=== PATIENT | female | born 1990 | race African-American/Black ===

== ENCOUNTER 2016-09-27 11:38 | Emergency (ER) | payer BC, OTHER ==
[2016-09-27] MEDS ORDERED: SODIUM CHLORIDE 0.9% 500 ML IV STA (12:07)
--- NOTE | 2016-09-27 12:11 | ED ---
Abdominal Pain HPI - General Chief Complaint: Abdominal Pain Stated Complaint: abd pain Time Seen by Provider: 09/27/16 12:02 Source: patient, RN notes reviewed Mode of arrival: ambulatory Limitations: no limitations - History of Present Illness Initial Comments: 26-year-old female presents emergency Department chief complaint lower abdominal pain, pelvic pain. Patient states that it started in the last day or 2. She is concerned that she's had a history of kidney transplant history of peritonitis. Patient states she had a kidney transplant at age 19 by [facility]. 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 Patient states this pain is worse sometimes with movement and there is a burning sharp pain in her pelvic region. She denies any vaginal bleeding or vaginal discharge. Patient states that she has not had a fever or chills. Patient does admit some nausea vomiting. Patient has a history of anemia and which she takes iron supplement and epo shots. Patient denies any sick contacts. Patient states she sees Dr. Kofi reyes for tie presser. Primary care physician Dr. Frias. - Related Data Home Medications Medication Instructions Recorded Confirmed Ferrous Sulfate [Iron (65 MG 325 mg PO TID 05/27/15 09/27/16 Elemental)] Tacrolimus [Prograf] 5 mg PO BID 05/27/15 09/27/16 predniSONE 5 mg PO DAILY 05/27/15 09/27/16 Ergocalciferol [Vitamin D2 50,000 unit PO SUFR 05/31/15 09/27/16 (DRISDOL)] Mycophenolate Mofetil [Cellcept] 1,000 mg PO BID 05/31/15 09/27/16 Sodium Bicarbonate Tab 1,300 mg PO BID 05/31/15 09/27/16 Tacrolimus [Prograf] 3 mg PO BID 05/31/15 09/27/16 Calcitriol 0.25 mcg PO DAILY 12/09/15 09/27/16 Albuterol Sulfate [Proair Hfa] 2 puff INHALATION RT-Q6H PRN 01/22/16 09/27/16 Carvedilol 25 mg PO BID 07/01/16 07/01/16 Furosemide [Lasix] 80 mg PO BID 07/01/16 09/27/16 Metolazone [Zaroxolyn] 5 mg PO DAILY 07/01/16 09/27/16 amLODIPine [Norvasc] 10 mg PO DAILY 07/01/16 07/01/16 cloNIDine HCL [Catapres] 0.3 mg PO TID 07/01/16 07/01/16 Allergies Allergy/AdvReac Type Severity Reaction Status Date / Time hydralazine AdvReac Rapid Verified 09/27/16 12:48 Heart Rate Review of Systems ROS Statement: Those systems with pertinent positive or pertinent negative responses have been documented in the HPI. ROS Other: All systems not noted in ROS Statement are negative. Past Medical History Past Medical History: Asthma, Hypertension, Renal Disease Additional Past Medical History / Comment(s): abdominal pain, hx kidney transplant 2009, acute on chronic renal failure. Other HX: polycystic renal failure with kidney transplant, CKD, vitimen D deficiency, anemia, ovarian cyst , chronic back pain. History of Any Multi-Drug Resistant Organisms: None Reported Past Surgical History: Hernia Repair Additional Past Surgical History / Comment(s): 11/15/09 Kidney transplant R pelvis, dialysis catheter in and out, supra pubic hernia repair, transvaginal mesh, wisdom teeth extraction with anesthesia. Past Anesthesia/Blood Transfusion Reactions: No Reported Reaction Past Psychological History: Anxiety, Depression Additional Psychological History / Comment(s): Pt resides with family. She is independent. She drives. She states she has anxiety and depression but no suicidal thoughts/ idealations or plans. She had one suicide attempt with overdose in 2012. Smoking Status: Current every day smoker Past Alcohol Use History: None Reported Additional Past Alcohol Use History / Comment(s): PT STILL OCCASIONALY SMOKES Past Drug Use History: None Reported - Past Family History Father Family Medical History: No Reported History Additional Family Medical History / Comment(s): Father is healthy and is 59 yrs old. Mother Family Medical History: No Reported History Additional Family Medical History / Comment(s): Mother is healthy and is 57 yrs old. General Exam Limitations: no limitations General appearance: alert, in no apparent distress Head exam: Present: atraumatic, normocephalic, normal inspection Respiratory exam: Present: normal lung sounds bilaterally. Absent: respiratory distress, wheezes, rales, rhonchi, stridor Cardiovascular Exam: Present: regular rate, normal rhythm, normal heart sounds. Absent: systolic murmur, diastolic murmur, rubs, gallop, clicks GI/Abdominal exam: Present: soft, tenderness (Moderate suprapubic, lower abdominal tenderness), normal bowel sounds, other (Large right-sided old surgical scar noted, swelling of the lower abdomen region which patient states this is normal for and has mesh in place). Absent: distended, guarding, rebound , rigid Back exam: Absent: CVA tenderness (R), CVA tenderness (L) Neurological exam: Present: alert, oriented X3 Skin exam: Present: warm, dry, intact, normal color. Absent: rash Course Vital Signs 09/27/16 09/27/16 11:41 14:19 Temperature 98.0 F Pulse Rate 90 66 Respiratory 17 16 Rate Blood Pressure 186/112 131/83 O2 Sat by Pulse 100 98 Oximetry - Reevaluation(s) Reevaluation #1: 09/27/16 14:40 Patient was updated on results time. Patient is sleeping and resting comfortably. Patient's states that she has not been taking her bicarb for the last 3-4 days because she just didn't want to take it. Patient's was informed that bicarb was low. Patient will be submitted here advised to restart at home and she has an appointment on Wednesday. Medical Decision Making - Medical Decision Making 26-year-old female presented emergency department for abdominal pain. Patient hemoglobin is 7.1 which is normal for her. Patient has appointment with nephrology on Wednesday. Patient has not been taking her bicarb and which she' ll be given some he had this time. She is advised she needs to take this daily because it may cause issues . Patient will be discharged with return parameters. - Lab Data Result diagrams: 09/27/16 12:30 09/27/16 12:30 Lab Results 09/27/16 09/27/16 09/27/16 Range/Units 12:30 12:30 12:30 WBC 6.1 (3.8-10.6) k/uL RBC 2.77 L (3.80-5.40) m/uL Hgb 7.1 L (11.4-16.0) gm/dL Hct 25.0 L (34.0-46.0) % MCV 90.2 (80.0-100.0) fL MCH 25.5 (25.0-35.0) pg MCHC 28.3 L (31.0-37.0) g/dL RDW 17.1 H (11.5-15.5) % Plt Count 233 (150-450) k/uL Neutrophils % 70 % Lymphocytes % 16 % Monocytes % 5 % Eosinophils % 7 % Basophils % 1 % Neutrophils # 4.3 (1.3-7.7) k/uL Lymphocytes # 1.0 (1.0-4.8) k/uL Monocytes # 0.3 (0-1.0) k/uL Eosinophils # 0.4 (0-0.7) k/uL Basophils # 0.0 (0-0.2) k/uL Hypochromasia Marked Anisocytosis Slight PT (9.0-12.0) sec INR (<1.1) APTT (22.0-30.0) sec Sodium 142 (137-145) mmol/L Potassium 4.8 (3.5-5.1) mmol/L Chloride 119 H (98-107) mmol/L Carbon Dioxide 14 L (22-30) mmol/L Anion Gap 9 mmol/L BUN 40 H (7-17) mg/dL Creatinine 3.90 H (0.52-1.04) mg/dL Est GFR (MDRD) Af Amer 17 (>60 ml/min/1.73 sqM) Est GFR (MDRD) Non-Af 14 (>60 ml/min/1.73 sqM) Glucose 91 (74-99) mg/dL Plasma Lactic Acid Johan (0.7-2.0) mmol/L Calcium 7.3 L (8.4-10.2) mg/dL Total Bilirubin 0.3 (0.2-1.3) mg/dL AST 12 L (14-36) U/L ALT 21 (9-52) U/L Alkaline Phosphatase 78 (38-126) U/L Total Protein 6.2 L (6.3-8.2) g/dL Albumin 3.4 L (3.5-5.0) g/dL Amylase 117 H (30-110) U/L Lipase 97 (23-300) U/L Urine Color Urine Appearance (Clear) Urine pH (5.0-8.0) Ur Specific [place] (1.001-1.035) Urine Protein (Negative) Urine Glucose (UA) (Negative) Urine Ketones (Negative) Urine Blood (Negative) Urine Nitrate (Negative) Urine Bilirubin (Negative) Urine Urobilinogen (<2.0) mg/dL Ur Leukocyte Esterase (Negative) Urine RBC (0-5) /hpf Urine WBC (0-5) /hpf Ur Squamous Epith Cells (0-4) /hpf Urine HCG, Qual Not Detected (Not Detectd) 09/27/16 09/27/16 09/27/16 Range/Units 12:30 12:30 12:30 WBC (3.8-10.6) k/uL RBC (3.80-5.40) m/uL Hgb (11.4-16.0) gm/dL Hct (34.0-46.0) % MCV (80.0-100.0) fL MCH (25.0-35.0) pg MCHC (31.0-37.0) g/dL RDW (11.5-15.5) % Plt Count (150-450) k/uL Neutrophils % % Lymphocytes % % Monocytes % % Eosinophils % % Basophils % % Neutrophils # (1.3-7.7) k/uL Lymphocytes # (1.0-4.8) k/uL Monocytes # (0-1.0) k/uL Eosinophils # (0-0.7) k/uL Basophils # (0-0.2) k/uL Hypochromasia Anisocytosis PT 10.7 (9.0-12.0) sec INR 1.1 (<1.1) APTT 27.5 (22.0-30.0) sec Sodium (137-145) mmol/L Potassium (3.5-5.1) mmol/L Chloride (98-107) mmol/L Carbon Dioxide (22-30) mmol/L Anion Gap mmol/L BUN (7-17) mg/dL Creatinine (0.52-1.04) mg/dL Est GFR (MDRD) Af Amer (>60 ml/min/1.73 sqM) Est GFR (MDRD) Non-Af (>60 ml/min/1.73 sqM) Glucose (74-99) mg/dL Plasma Lactic Acid Johan <0.5 L (0.7-2.0) mmol/L Calcium (8.4-10.2) mg/dL Total Bilirubin (0.2-1.3) mg/dL AST (14-36) U/L ALT (9-52) U/L Alkaline Phosphatase (38-126) U/L Total Protein (6.3-8.2) g/dL Albumin (3.5-5.0) g/dL Amylase (30-110) U/L Lipase (23-300) U/L Urine Color Light Yellow Urine Appearance Clear (Clear) Urine pH 6.5 (5.0-8.0) Ur Specific [place] 1.007 (1.001-1.035) Urine Protein 2+ H (Negative) Urine Glucose (UA) Trace H (Negative) Urine Ketones Negative (Negative) Urine Blood Small H (Negative) Urine Nitrate Negative (Negative) Urine Bilirubin Negative (Negative) Urine Urobilinogen <2.0 (<2.0) mg/dL Ur Leukocyte Esterase Negative (Negative) Urine RBC 2 (0-5) /hpf Urine WBC 1 (0-5) /hpf Ur Squamous Epith Cells 1 (0-4) /hpf Urine HCG, Qual (Not Detectd) Disposition Clinical Impression: Anemia, Abdominal pain, Noncompliance with medication regimen, History of kidney transplant Disposition: HOME SELF-CARE Condition: Stable Instructions: Abdominal Pain (ED) Additional Instructions: Please take your medications as directed and see your tie presser at your scheduled appointment.Please return to the Emergency Department if symptoms worsen or any other concerns. Time of Disposition: 14:42
[2016-09-27 12:52] LABS: Anisocytosis Slight; Basophils % (A) 1 %; CH 25.5; CHCM 28.5; Eosinophils # (A) 0.4 k/uL (0-0.7); Eosinophils % (A) 7 %; HDW 3.22; HGB 7.1 gm/dL (11.4-16.0); Hypochromasia Marked; Luc % (Auto) 2; Lymphocytes % (A) 16 %; MCH 25.5 pg (25.0-35.0); MCHC 28.3 g/dL (31.0-37.0); MCV 90.2 fL (80.0-100.0); Mean Platelet Volume 8.1; Monocytes # (A) 0.3 k/uL (0-1.0); Monocytes % (A) 5 %; Neutrophils # (A) 4.3 k/uL (1.3-7.7); Neutrophils % (A) 70 %; RBC 2.77 m/uL (3.80-5.40); RDW 17.1 % (11.5-15.5); WBC 6.1 k/uL (3.8-10.6); WBC (Perox) 6.32
[2016-09-27 12:53] LABS: Appearance,Urine Clear (Clear); Bilirubin,Urine Negative (Negative); Glucose,Urine (UA) Trace (Negative); Ketones,Urine Negative (Negative); Leukocyte Esterase,Urine Negative (Negative); Nitrite,Urine Negative (Negative); PH, Urine 6.5 (5.0-8.0); Particle Count 668; Protein,Urine 2+ (Negative); RBC,Urine 2 /hpf (0-5); Specific Gravity,Urine 1.007 (1.001-1.035); Squamous Epithelial Cell,Urine 1 /hpf (0-4); UA Billing (MACRO vs. MICRO) MICRO; Urobilinogen,Urine <2.0 mg/dL (<2.0); WBC,Urine 1 /hpf (0-5)
[2016-09-27 12:58] LABS: INR 1.1 (<1.1); Partial Thromboplastin Time 27.5 sec (22.0-30.0); Prothrombin Time 10.7 sec (9.0-12.0)
[2016-09-27 12:59] LABS: Calcium 7.3 mg/dL (8.4-10.2); Potassium 4.8 mmol/L (3.5-5.1); Total Bilirubin 0.3 mg/dL (0.2-1.3); Total Protein 6.2 g/dL (6.3-8.2)
--- NOTE | 2016-09-27 13:57 | XR ---
INDICATION: Abdominal pain COMPARISON: AXR 02/04/16 FINDINGS: Single frontal view of the abdomen demonstrates a normal bowel gas pattern. No evidence of organomegaly, abnormal calcifications or obvious soft tissue masses. The osseous structures are intact. Surgical clips in the pelvis. IMPRESSION: Normal KUB.
--- NOTE | 2016-09-27 14:19 | CT ---
INDICATION: Pain TECHNIQUE: Multiple, contiguous axial cuts of the abdomen and pelvis are obtained from the lung bases to the ischial tuberosities. Sagittal and coronal reformatted images are available. COMPARISON: CT dated 02/05/16 FINDINGS: The lung bases are clear. Cardiomegaly. The liver and spleen are normal in size and free of mass lesions. The gallbladder, bile ducts and pancreas are normal. The adrenal gland are unremarkable. The left kidney is missing. There is atrophy of the right kidney. Again noted is a large transplanted kidney within the right anterior pelvis the overall appearance is grossly unchanged. Small amount of free ascites. The appendix is unremarkable, as is the rest of the GI tract. Aorta is normal caliber. No adenopathy or extraluminal air. The osseous structures are normal IMPRESSION: 1. The left kidney is missing. There is atrophy of the right kidney. Again noted is a large transplanted kidney within the right anterior pelvis the overall appearance is grossly unchanged. 2. Small amount of free ascites. 3. Cardiomegaly. CTDI: 4.7 mGy DLP: 208.6 mGycm
[2016-09-27] MEDS ORDERED: SODIUM BICARBONATE TAB 650 MG TAB PO STA (14:40)
[2016-09-27 14:55] VITALS: BP 142/96; PULSE 64; RESP 14; TEMP 97.8
== END 2016-09-27 15:08 | disposition home or self-care (01) ==
LOC: EC 11:38
DX: R10.9 Unspecified abdominal pain (principal); D64.9 Anemia, unspecified; Z91.14 Patient's other noncompliance with medication regimen; Z94.0 Kidney transplant status; Q60.0 Renal agenesis, unilateral; I12.9 Hypertensive chronic kidney disease with stage 1 through stage 4 chronic kidney disease, or unspecified chronic kidney disease; N18.9 Chronic kidney disease, unspecified; F17.200 Nicotine dependence, unspecified, uncomplicated; Z79.52 Long term (current) use of systemic steroids; Z79.899 Other long term (current) drug therapy; Z88.8 Allergy status to other drugs, medicaments and biological substances
CPT/HCPCS: 36415; 74000; 74176; 80053; 81001; 81025; 82150; 83605; 83690; 85025; 85610; 85730; 87040; 99284

== ENCOUNTER 2016-11-26 18:09 | Inpatient (IN) | payer BC, OTHER ==
[2016-11-26] MEDS ORDERED: SODIUM CHLORIDE 0.9% 1,000 ML IV STA (18:19)
[2016-11-26 18:46] LABS: Anisocytosis Slight; Basophils # (A) 0.1 k/uL (0-0.2); Basophils % (A) 1 %; CH 25.2; CHCM 26.8; Eosinophils # (A) 0.1 k/uL (0-0.7); Eosinophils % (A) 2 %; HCT 20.4 % (34.0-46.0); HDW 2.57; Hypochromasia Marked; Luc # (Auto) 0.03; Luc % (Auto) 1; Lymphocytes # (A) 0.6 k/uL (1.0-4.8); Lymphocytes % (A) 10 %; MCH 25.8 pg (25.0-35.0); MCV 94.4 fL (80.0-100.0); Mean Platelet Volume 7.5; Monocytes # (A) 0.2 k/uL (0-1.0); Monocytes % (A) 3 %; Neutrophils # (A) 4.9 k/uL (1.3-7.7); Neutrophils % (A) 84 %; RBC 2.16 m/uL (3.80-5.40); RDW 16.2 % (11.5-15.5); WBC 5.9 k/uL (3.8-10.6); WBC (Perox) 5.58
--- NOTE | 2016-11-26 18:47 | ED ---
General Adult HPI - General Source: patient, RN notes reviewed Mode of arrival: ambulatory Limitations: no limitations <Wally Flores - Last Filed: 11/26/16 19:36> <Omar Coats - Last Filed: 11/26/16 20:34> - General Chief complaint: Recheck/Abnormal Lab/Rx Stated complaint: anemia sent by PCP Time Seen by Provider: 11/26/16 18:21 - History of Present Illness Initial comments: Patient is a 26-year-old female with significant past medical history for kidney transplant, with chief complaint of low hemoglobin today. Patient does admit to feeling dizzy and tired over the last 2-3 weeks. Patient does admit that she had blood drawn this morning and was notified that her hemoglobin was 5.4. Patient denies any other complaints. Patient denies any recent fever, chills, shortness of breath, chest pain, back pain, abdominal pain, nausea or vomiting, numbness or tingling, dysuria or hematuria, constipation or diarrhea, headaches or visual changes, or any other complaints. (Wally Flores) - Related Data Home Medications Medication Instructions Recorded Confirmed Ferrous Sulfate [Iron (65 MG 325 mg PO TID 05/27/15 11/26/16 Elemental)] Tacrolimus [Prograf] 5 mg PO BID 05/27/15 11/26/16 predniSONE 5 mg PO DAILY 05/27/15 11/26/16 Ergocalciferol [Vitamin D2 50,000 unit PO SUFR 05/31/15 11/26/16 (DRISDOL)] Mycophenolate Mofetil [Cellcept] 1,000 mg PO BID 05/31/15 11/26/16 Sodium Bicarbonate Tab 1,300 mg PO BID 05/31/15 11/26/16 Tacrolimus [Prograf] 3 mg PO BID 05/31/15 11/26/16 Calcitriol 0.25 mcg PO DAILY 12/09/15 11/26/16 Albuterol Sulfate [Proair Hfa] 2 puff INHALATION RT-Q6H PRN 01/22/16 11/26/16 Carvedilol 25 mg PO BID 07/01/16 11/26/16 Furosemide [Lasix] 80 mg PO BID 07/01/16 11/26/16 Metolazone [Zaroxolyn] 5 mg PO DAILY 07/01/16 11/26/16 amLODIPine [Norvasc] 10 mg PO DAILY 07/01/16 11/26/16 cloNIDine HCL [Catapres] 0.3 mg PO TID 07/01/16 11/26/16 Ondansetron [Zofran] 4 mg PO Q8H PRN 11/26/16 11/26/16 Allergies Allergy/AdvReac Type Severity Reaction Status Date / Time hydralazine AdvReac Rapid Verified 11/26/16 18:54 Heart Rate Review of Systems ROS Other: All systems not noted in ROS Statement are negative. <Wally Flores - Last Filed: 11/26/16 19:36> ROS Other: All systems not noted in ROS Statement are negative. <Omar Coats - Last Filed: 11/26/16 20:34> ROS Statement: Those systems with pertinent positive or pertinent negative responses have been documented in the HPI. Past Medical History Past Medical History: Asthma, Hypertension, Renal Disease Additional Past Medical History / Comment(s): abdominal pain, hx kidney transplant 2009, acute on chronic renal failure. Other HX: polycystic renal failure with kidney transplant, CKD, vitimen D deficiency, anemia of chronic disease, ovarian cyst, chronic back pain. History of Any Multi-Drug Resistant Organisms: None Reported Past Surgical History: Hernia Repair Additional Past Surgical History / Comment(s): 11/15/09 Kidney transplant R pelvis, dialysis catheter in and out, supra pubic hernia repair, transvaginal mesh, wisdom teeth extraction with anesthesia. Past Anesthesia/Blood Transfusion Reactions: No Reported Reaction Past Psychological History: Anxiety, Depression Additional Psychological History / Comment(s): Pt resides with family. She is independent. She drives. She states she has anxiety and depression but no suicidal thoughts/ idealations or plans. She had one suicide attempt with overdose in 2012. Smoking Status: Current every day smoker Past Alcohol Use History: None Reported Additional Past Alcohol Use History / Comment(s): PT STILL OCCASIONALY SMOKES Past Drug Use History: None Reported - Past Family History Father Family Medical History: No Reported History Additional Family Medical History / Comment(s): Father is healthy and is 59 yrs old. Mother Family Medical History: No Reported History Additional Family Medical History / Comment(s): Mother is healthy and is 57 yrs old. <Wally Flores - Last Filed: 11/26/16 19:36> General Exam Limitations: no limitations <Wally Flores - Last Filed: 11/26/16 19:36> <Omar Coats - Last Filed: 11/26/16 20:34> - General Exam Comments Initial Comments: General: The patient is awake and alert, in no distress, and does not appear acutely ill. Eye: Pupils are equal, round and reactive to light, extra-ocular movements are intact. No nystagmus. There is normal conjunctiva bilaterally. No signs of icterus. Ears, nose, mouth and throat: There are moist mucous membranes and no oral lesions. Neck: The neck is supple, there is no tenderness or JVD. Cardiovascular: There is a regular rate and rhythm. No murmur, rub or gallop is appreciated. Respiratory: Lungs are clear to auscultation, respirations are non-labored, breath sounds are equal. No wheezes, stridor, rales, or rhonchi. Gastrointestinal: Soft, non-distended, non-tender abdomen without masses or organomegaly noted. There is no rebound or guarding present. No CVA tenderness. Bowel sounds are unremarkable. Musculoskeletal: Normal ROM, no tenderness. Strength 5/5. Sensation intact. Pulses equal bilaterally 2+. Neurological: A&O x 3. CN II-XII intact, There are no obvious motor or sensory deficits. Coordination appears grossly intact. Speech is normal. Skin: Skin is warm and dry and no rashes or lesions are noted. Psychiatric: Cooperative, appropriate mood & affect, normal judgment. (Wally Flores) Medical Decision Making - Lab Data Result diagrams: 11/26/16 18:34 11/26/16 19:10 <Wally Flores - Last Filed: 11/26/16 19:36> - Lab Data Result diagrams: 11/26/16 18:34 11/26/16 19:10 <Omar Coats - Last Filed: 11/26/16 20:34> - Medical Decision Making Labs reviewed does show a hemoglobin 5.6. Patient's potassium 5.9 will be repeated. Patient to be given 1 unit and recheck. She will be admitted for serial H&H Case discussed in detail with attending physician Dr. Coats. (Wally Flores) I saw this patient in conjunction with the physician assistant vice president. I performed independent history and physical exam. Agree with case management. (Omar Coats) - Lab Data Lab Results 11/26/16 11/26/16 11/26/16 Range/Units 18:34 18:34 18:34 WBC 5.9 (3.8-10.6) k/uL RBC 2.16 L (3.80-5.40) m/uL Hgb 5.6 L* D (11.4-16.0) gm/dL Hct 20.4 L (34.0-46.0) % MCV 94.4 (80.0-100.0) fL MCH 25.8 (25.0-35.0) pg MCHC 27.3 L (31.0-37.0) g/dL RDW 16.2 H (11.5-15.5) % Plt Count 291 (150-450) k/uL Neutrophils % 84 % Lymphocytes % 10 % Monocytes % 3 % Eosinophils % 2 % Basophils % 1 % Neutrophils # 4.9 (1.3-7.7) k/uL Lymphocytes # 0.6 L (1.0-4.8) k/uL Monocytes # 0.2 (0-1.0) k/uL Eosinophils # 0.1 (0-0.7) k/uL Basophils # 0.1 (0-0.2) k/uL Hypochromasia Marked Anisocytosis Slight PT 10.8 (9.0-12.0) sec INR 1.1 (<1.1) APTT 28.6 (22.0-30.0) sec Sodium 137 (137-145) mmol/L Potassium 5.9 H (3.5-5.1) mmol/L Chloride 115 H (98-107) mmol/L Carbon Dioxide 14 L (22-30) mmol/L Anion Gap 8 mmol/L BUN 42 H (7-17) mg/dL Creatinine 3.84 H (0.52-1.04) mg/dL Est GFR (MDRD) Af Amer 17 (>60 ml/min/1.73 sqM) Est GFR (MDRD) Non-Af 14 (>60 ml/min/1.73 sqM) Glucose 134 H (74-99) mg/dL Calcium 6.8 L (8.4-10.2) mg/dL Total Bilirubin 0.3 (0.2-1.3) mg/dL AST 11 L (14-36) U/L ALT 24 (9-52) U/L Alkaline Phosphatase 62 (38-126) U/L Total Protein 6.3 (6.3-8.2) g/dL Albumin 3.3 L (3.5-5.0) g/dL Urine Color Urine Appearance (Clear) Urine pH (5.0-8.0) Ur Specific [place] (1.001-1.035) Urine Protein (Negative) Urine Glucose (UA) (Negative) Urine Ketones (Negative) Urine Blood (Negative) Urine Nitrite (Negative) Urine Bilirubin (Negative) Urine Urobilinogen (<2.0) mg/dL Ur Leukocyte Esterase (Negative) Urine RBC (0-5) /hpf Urine WBC (0-5) /hpf Ur Squamous Epith Cells (0-4) /hpf Amorphous Sediment (None) /hpf Hyaline Casts (0-2) /lpf Urine Mucus (None) /hpf Urine HCG, Qual (Not Detectd) 11/26/16 11/26/16 11/26/16 Range/Units 18:40 18:40 19:10 WBC (3.8-10.6) k/uL RBC (3.80-5.40) m/uL Hgb (11.4-16.0) gm/dL Hct (34.0-46.0) % MCV (80.0-100.0) fL MCH (25.0-35.0) pg MCHC (31.0-37.0) g/dL RDW (11.5-15.5) % Plt Count (150-450) k/uL Neutrophils % % Lymphocytes % % Monocytes % % Eosinophils % % Basophils % % Neutrophils # (1.3-7.7) k/uL Lymphocytes # (1.0-4.8) k/uL Monocytes # (0-1.0) k/uL Eosinophils # (0-0.7) k/uL Basophils # (0-0.2) k/uL Hypochromasia Anisocytosis PT (9.0-12.0) sec INR (<1.1) APTT (22.0-30.0) sec Sodium (137-145) mmol/L Potassium 5.8 H (3.5-5.1) mmol/L Chloride (98-107) mmol/L Carbon Dioxide (22-30) mmol/L Anion Gap mmol/L BUN (7-17) mg/dL Creatinine (0.52-1.04) mg/dL Est GFR (MDRD) Af Amer (>60 ml/min/1.73 sqM) Est GFR (MDRD) Non-Af (>60 ml/min/1.73 sqM) Glucose (74-99) mg/dL Calcium (8.4-10.2) mg/dL Total Bilirubin (0.2-1.3) mg/dL AST (14-36) U/L ALT (9-52) U/L Alkaline Phosphatase (38-126) U/L Total Protein (6.3-8.2) g/dL Albumin (3.5-5.0) g/dL Urine Color Light Yellow Urine Appearance Clear (Clear) Urine pH 6.0 (5.0-8.0) Ur Specific [place] 1.006 (1.001-1.035) Urine Protein 2+ H (Negative) Urine Glucose (UA) 1+ H (Negative) Urine Ketones Negative (Negative) Urine Blood Moderate H (Negative) Urine Nitrite Negative (Negative) Urine Bilirubin Negative (Negative) Urine Urobilinogen <2.0 (<2.0) mg/dL Ur Leukocyte Esterase Negative (Negative) Urine RBC 50 H (0-5) /hpf Urine WBC 7 H (0-5) /hpf Ur Squamous Epith Cells 2 (0-4) /hpf Amorphous Sediment Occasional H (None) /hpf Hyaline Casts 6 H (0-2) /lpf Urine Mucus Rare H (None) /hpf Urine HCG, Qual Not Detected (Not Detectd) Disposition Time of Disposition: 19:30 <Wally Flores - Last Filed: 11/26/16 19:36> <Omar Coats - Last Filed: 11/26/16 20:34> Clinical Impression: History of kidney transplant, Anemia, Hypertension Disposition: ADMITTED IP TO THIS [facility] Condition: Stable Referrals: Dereck Frias MD [Primary Care Provider] - 1-2 days
[2016-11-26 18:51] LABS: Calcium 6.8 mg/dL (8.4-10.2); Potassium 5.9 mmol/L (3.5-5.1); Total Bilirubin 0.3 mg/dL (0.2-1.3); Total Protein 6.3 g/dL (6.3-8.2)
[2016-11-26 19:00] LABS: Amorphous Sediment,Urine Occasional /hpf; Appearance,Urine Clear (Clear); Bilirubin,Urine Negative (Negative); Glucose,Urine (UA) 1+ (Negative); Ketones,Urine Negative (Negative); Leukocyte Esterase,Urine Negative (Negative); Mucus,Urine Rare /hpf; Nitrite,Urine Negative (Negative); Particle Count 2388; Protein,Urine 2+ (Negative); RBC,Urine 50 /hpf (0-5); Specific Gravity,Urine 1.006 (1.001-1.035); Squamous Epithelial Cell,Urine 2 /hpf (0-4); UA Billing (MACRO vs. MICRO) MICRO; Urobilinogen,Urine <2.0 mg/dL (<2.0); WBC,Urine 7 /hpf (0-5)
[2016-11-26 19:02] LABS: INR 1.1 (<1.1); Partial Thromboplastin Time 28.6 sec (22.0-30.0); Prothrombin Time 10.8 sec (9.0-12.0)
[2016-11-26 19:03] LABS: MCHC 27.3 g/dL (31.0-37.0)
[2016-11-26 19:05] LABS: HGB 5.6 gm/dL (11.4-16.0)
[2016-11-26] MEDS ORDERED: SODIUM CHLORIDE 0.9% 1,000 ML IV ONE (19:33)
[2016-11-26] MEDS ORDERED: ONDANSETRON 4 MG/2 ML VIAL IVP PRN (19:33)
[2016-11-26] MEDS ORDERED: NALOXONE 0.4 MG/ML 1 ML VIAL IV PRN (19:33)
[2016-11-26] MEDS ORDERED: ACETAMINOPHEN TAB 325 MG TAB PO PRN (19:33)
[2016-11-26] MEDS ORDERED: ALBUTEROL NEBULIZED 2.5 MG/3 ML INHALATION PRN (19:46)
[2016-11-26 21:08] VITALS: BMI 22.4
[2016-11-26] MEDS: FUROSEMIDE 80 MG TAB PO SCH (22:58)
[2016-11-26] MEDS: TACROLIMUS 1 MG CAP PO SCH (22:58)
[2016-11-26] MEDS: CARVEDILOL 12.5 MG TAB PO SCH (22:58)
[2016-11-26] MEDS: SODIUM BICARBONATE TAB 650 MG TAB PO SCH (22:59)
[2016-11-26] MEDS: MYCOPHENOLATE MOFETIL 500 MG TAB PO SCH (22:59)
[2016-11-27] MEDS: FERROUS SULFATE 325 MG TAB PO SCH ×2 (01:00→07:51)
[2016-11-27] MEDS: cloNIDine HCL 0.1 MG TAB PO SCH ×2 (01:02→07:50)
[2016-11-27] MEDS: TACROLIMUS 1 MG CAP PO SCH ×3 (01:02→07:50)
[2016-11-27 01:10] VITALS: RESP 18
[2016-11-27] MEDS: ALPRAZolam 0.25 MG TAB PO PRN ×2 (01:13→08:07)
[2016-11-27 06:53] LABS: Anisocytosis Slight; Basophils % (A) 1 %; CH 26.1; CHCM 27.8; Eosinophils # (A) 0.3 k/uL (0-0.7); Eosinophils % (A) 3 %; HCT 22.7 % (34.0-46.0); HDW 3.63; Hypochromasia Marked; Luc # (Auto) 0.09; Luc % (Auto) 1; Lymphocytes # (A) 1.5 k/uL (1.0-4.8); Lymphocytes % (A) 19 %; MCH 27.1 pg (25.0-35.0); MCHC 28.6 g/dL (31.0-37.0); MCV 94.8 fL (80.0-100.0); Mean Platelet Volume 7.3; Monocytes # (A) 0.2 k/uL (0-1.0); Monocytes % (A) 2 %; Neutrophils # (A) 5.8 k/uL (1.3-7.7); Neutrophils % (A) 74 %; Poikilocytosis Slight; RBC 2.39 m/uL (3.80-5.40); RDW 16.1 % (11.5-15.5); WBC 7.9 k/uL (3.8-10.6); WBC (Perox) 7.85
[2016-11-27 06:55] LABS: HGB 6.5 gm/dL (11.4-16.0)
[2016-11-27 07:06] LABS: Calcium 7.1 mg/dL (8.4-10.2); Potassium 5.2 mmol/L (3.5-5.1); Total Bilirubin 0.5 mg/dL (0.2-1.3); Total Protein 5.7 g/dL (6.3-8.2)
[2016-11-27] MEDS: CARVEDILOL 12.5 MG TAB PO SCH (07:50)
[2016-11-27] MEDS: SODIUM BICARBONATE TAB 650 MG TAB PO SCH (07:51)
[2016-11-27] MEDS: FUROSEMIDE 80 MG TAB PO SCH (07:51)
[2016-11-27] MEDS: MYCOPHENOLATE MOFETIL 500 MG TAB PO SCH (07:52)
--- NOTE | 2016-11-27 08:21 | P.NPCON ---
History of Present Illness - Reason for Consult chronic renal failure - History of Present Illness Sedation: Chronic kidney disease History of present illness: Patient is a 26-year-old -[place] female seen in renal consultation for chronic kidney disease. Patient has chronic kidney disease stage IV with baseline creatinine near 4. Patient has a donor renal allograft from 2009. Etiology for kidney diseases congenital anomaly. She is maintained on Prograf CellCept and prednisone. However she is long-standing history of being noncompliant with her medications. She was seen in the office yesterday and had blood work done as well. Hemoglobin came back at 5.6 and she was advised to come to the hospital. She has received 1 unit of packed red blood cell transfusion and her hemoglobin is up to 6.5 today she scheduled to receive 2 more units today. Patient states she has not been taking her meds as advised. She also ran out of Procrit about a month ago. She's been feeling weak and tired. She also admits to having spasms in her neck. Denies any vomiting or diarrhea. Appetite is good. Admits to good urine output. No hematuria or dysuria. Her bicarb level is down 11 today and she has not been taking sodium bicarbonate as an outpatient. Potassium level was 5.8 and is down to 5.2 today. She is eager to go home. Vital signs are stable. General: The patient appeared well nourished and normally developed. HEENT: Head exam is unremarkable. Neck is without jugular venous distension. LUNGS: Lungs are clear to auscultation and percussion. Breath sounds decreased. HEART: Rate and Rhythm are regular. First and second heart sounds normal. No murmurs, rubs or gallops. ABDOMEN: Abdominal exam reveals normal bowel sounds. Non-tender and non- distended. No evidence of peritonitis. EXTREMITITES: No clubbing, cyanosis, or edema. Past Medical History Past Medical History: Asthma, Hypertension, Renal Disease Additional Past Medical History / Comment(s): abdominal pain, hx kidney transplant 2009, acute on chronic renal failure. Other HX: polycystic renal failure with kidney transplant, CKD, vitimen D deficiency, anemia of chronic disease, ovarian cyst, chronic back pain. History of Any Multi-Drug Resistant Organisms: None Reported Past Surgical History: Hernia Repair Additional Past Surgical History / Comment(s): 11/15/09 Kidney transplant R pelvis, dialysis catheter in and out, supra pubic hernia repair, transvaginal mesh, wisdom teeth extraction with anesthesia. Past Anesthesia/Blood Transfusion Reactions: No Reported Reaction Past Psychological History: Anxiety, Depression Additional Psychological History / Comment(s): Pt resides with family. She is independent. She drives. She states she has anxiety and depression but no suicidal thoughts/ idealations or plans. She had one suicide attempt with overdose in 2012. Smoking Status: Current some day smoker Past Alcohol Use History: None Reported Additional Past Alcohol Use History / Comment(s): PT STILL OCCASIONALY SMOKES Past Drug Use History: None Reported - Past Family History Father Family Medical History: No Reported History Additional Family Medical History / Comment(s): Father is healthy and is 59 yrs old. Mother Family Medical History: No Reported History Additional Family Medical History / Comment(s): Mother is healthy and is 57 yrs old. Medications and Allergies Home Medications Medication Instructions Recorded Confirmed Type Ferrous Sulfate [Iron (65 MG 325 mg PO TID 05/27/15 11/26/16 History Elemental)] Tacrolimus [Prograf] 5 mg PO BID 05/27/15 11/26/16 History predniSONE 5 mg PO DAILY 05/27/15 11/26/16 History Ergocalciferol [Vitamin D2 50,000 unit PO SUFR 05/31/15 11/26/16 History (ISDOL)] Mycophenolate Mofetil [Cellcept] 1,000 mg PO BID 05/31/15 11/26/16 History Sodium Bicarbonate Tab 1,300 mg PO BID 05/31/15 11/26/16 History Tacrolimus [Prograf] 3 mg PO BID 05/31/15 11/26/16 History Calcitriol 0.25 mcg PO DAILY 12/09/15 11/26/16 History Albuterol Sulfate [Proair Hfa] 2 puff INHALATION RT-Q6H PRN 01/22/16 11/26/16 History Carvedilol 25 mg PO BID 07/01/16 11/26/16 History Furosemide [Lasix] 80 mg PO BID 07/01/16 11/26/16 History Metolazone [Zaroxolyn] 5 mg PO DAILY 07/01/16 11/26/16 History amLODIPine [Norvasc] 10 mg PO DAILY 07/01/16 11/26/16 History cloNIDine HCL [Catapres] 0.3 mg PO TID 07/01/16 11/26/16 History Ondansetron [Zofran] 4 mg PO Q8H PRN 11/26/16 11/26/16 History Allergies Allergy/AdvReac Type Severity Reaction Status Date / Time hydralazine AdvReac Rapid Verified 11/26/16 18:54 Heart Rate Physical Exam Vitals: Vital Signs Temp Pulse Pulse Resp BP BP Pulse Ox 11/27/16 04:00 97.7 F 80 80 18 185/104 173/102 98 11/27/16 01:25 97.5 F L 89 18 179/93 99 11/27/16 00:55 98.3 F 86 18 173/110 11/27/16 00:45 98.0 F 82 18 178/108 100 11/27/16 00:00 98.3 F 88 18 181/107 100 11/26/16 21:10 16 11/26/16 19:49 97.6 F 83 16 168/100 100 Intake and Output 11/26/16 11/27/16 11/27/16 22:59 06:59 14:59 Intake Total 100 610 810 Balance 100 610 810 Intake: IV 100 500 Sodium Chloride 0.9% 1, 100 500 000 ml @ 50 mls/hr IV . Q20H STA Rx#:[id number] Oral 300 Blood Product 310 310 Rc As-1 Unit 310 [id number] Other: Weight 54.2 kg 54.2 kg Results - Lab Results Most recent lab results Calcium 7.1 mg/dL (8.4-10.2) L 11/27/16 05:31 11/27/16 05:31 11/27/16 05:31 Assessment and Plan Plan: Assessment: #1. Chronic kidney disease stage IV with baseline creatinine near 4. GFR is relatively stable with creatinine at 3.9 today. #2. donor renal allograft from 2009. Etiology of her kidney disease is congenital anomaly. #3. Hyperkalemia secondary to metabolic acidosis and chronic kidney disease. Prograf can also cause hyperkalemia and the level was drawn yesterday. Improved today. #4. Metabolic acidosis secondary to chronic kidney disease and noncompliance with taking sodium bicarbonate as an outpatient. #5. Acute anemia with hemoglobin down to 5.6. She has anemia of chronic kidney disease. Symptomatic in nature. Up to 6.5 today after 1 unit of blood cell transition. She has not been taking Procrit for the last 1 month. #6. Hypertension with chronic kidney disease. Uncontrolled. #7. Chronic kidney disease mineral bone disease. Plan: I will discontinue normal saline and start isotonic sodium bicarbonate drip to be run at 75 mL an hour - this can be discontinued in 6 hours. Resume oral sodium bicarbonate 1300 mg twice daily. Renal diet. She is to receive 2 more units of packed red blood cell transfusion today. Start Aranesp. Resume home antihypertensives including diuretics. Maintain calcitriol. Maintain CellCept and Prograf and prednisone. I stressed with her the importance of being compliant with medications as an outpatient. She is scheduled to see vascular surgery as an outpatient to get a fistula placed and to start in center hemodialysis in the next few months. No urgent need for renal replacement therapy at this time. Thank you for the consultation. I will continue to follow the patient with you during her hospital stay.
[2016-11-27] MEDS ORDERED: amLODIPine 10 MG TAB PO SCH (09:00)
[2016-11-27] MEDS ORDERED: CALCITRIOL 0.25 MCG CAP PO SCH (09:00)
[2016-11-27] MEDS ORDERED: DARBEPOETIN ALFA 60 MCG/0.3 ML SYRINGE SQ SCH (09:00)
[2016-11-27] MEDS ORDERED: WATER FOR INJECTION, STERILE 1,000 ML with SODIUM ACETATE 150 MEQ IV ONE ×2 (09:00)
[2016-11-27] MEDS ORDERED: predniSONE 5 MG TAB PO SCH (09:00)
[2016-11-27] MEDS ORDERED: METOLAZONE 5 MG TAB PO SCH (09:00)
[2016-11-27 09:46] VITALS: BP 176/111; PULSE 87; TEMP 98.4
--- NOTE | 2016-11-27 10:05 | HP ---
DATE OF ADMISSION: CHIEF COMPLAINT: A 26-year-old female who was having anemia, hemoglobin 5.4, admitted for blood transfusion and dizziness, lightheadedness, unable to ambulate. A 26-year-old female with poor followup and severe hypertension acceleration ( ), blood pressure meds at home. Became extremely fatigued and weak at home over the past 2 to 3 weeks, hemoglobin is 5.4, she was admitted for blood transfusion at this time. One unit has been ordered, I am going to give her 2 due to hemoglobin of 5.4 and lightheaded, dizziness, and near syncope. HOME MEDICATIONS: 1. Ferrous sulfate 325 mg daily. 2. Prograf 5 mg b.i.d. 3. Prednisone 5 mg daily. 4. Vitamin D2 fifty thousand units Wednesday to Wednesday. 5. CellCept 1000 b.i.d. 6. Sodium bicarb 1300 b.i.d. 7. Prograf 3 mg b.i.d. 8. Calcitriol 0.25 mcg daily. 9. Proventil HFA 2 puffs q.6 hours p.r.n. 10. Coreg 25 b.i.d. 11. Lasix 80 b.i.d. 12. Zaroxolyn 5 daily. 13. Norvasc 10 daily. 14. Catapres 0.3 t.i.d. 15. Zofran 4 mg p.o. q.8 hours. ALLERGIES: HYDRALAZINE. A 14-point review of systems is negative except for as mentioned in HPI. PAST MEDICAL HISTORY: Hypertension, renal disease, had a kidney transplant in 2009, Acute on chronic renal failure, polycystic renal failure, kidney transplant, vitamin D deficiency, immunocompromised disease, ovarian cyst chronic back pain, hernia repair, renal transplant, dialysis catheter in and out, suprapubic hernia repair, transvaginal mesh, wisdom teeth extraction anesthesia, anxiety, depression. She is a current everyday smoker. No alcohol. No illicit drugs. She works at [employer] one day a week. Father is healthy. Mother healthy. Temperature 97.1, pulse 74 to 76, respiration 16 to 18. HEENT: Normocephalic, atraumatic. OPHTHALMOLOGIC: Pupils equal, round and reactive to light and accommodation. NEUROLOGIC: Alert and oriented x3. PSYCH: Fair mood and affect. VASCULAR: Normal dorsalis pedis, posterior radial pulses. ABDOMEN: Soft. Hemoglobin is 5.4, hematocrit 20. White count 5.9, potassium is 5.9, sodium 137, BUN of 42, creatinine 3.84, glucose 130s, albumin low at 3.3. ASSESSMENT: 1. Acute on chronic renal failure, status post kidney transplant. 2. Severe anemia with symptomatic. Two units of packed red blood cells have been ordered. 3. Hypertension acceleration. 4. Renal stage IV. PLAN: 1. Consult renal physician, two units of blood are to be given. 2. Hypertension acceleration, will be treated with home medications. 3. Please see further orders.
--- NOTE | 2017-01-12 09:08 | DS ---
DATE OF ADMISSION: 11/26/2016 DATE OF DISCHARGE: 11/27/2016 DISCHARGE MEDICATIONS: 1. Prednisone 5 mg daily. 2. Tacrolimus 5 mg b.i.d. 3. Ferrous sulfate 325 t.i.d. 4. Vitamin D 50,000 units weekly. 5. CellCept 500 mg 2 tablets b.i.d. 6. Sodium bicarbonate 650 two tabs b.i.d. 7. Prograf 3 mg b.i.d. 8. Calcitriol 0.25 mg daily. 9. ProAir HFA 2 puffs q.6 hours p.r.n. 10. Carvedilol 25 mg b.i.d. 11. Catapres 0.3 mg t.i.d. 12. Lasix 80 mg b.i.d. 13. Metolazone 5 mg daily. 14. Norvasc 10 mg daily. 15. Zofran 4 mg q.8 p.r.n. CONDITION: Stable. PROGNOSIS: Guarded. Ambulate as tolerated. HOSPITAL COURSE OF EVENTS: White female came in with hypertension and acceleration, acute on chronic renal insufficiency, gastroparesis, noncompliance. She has stage IV renal disease with creatinine near 4, donor renal allograft 2009. She had a congenital abnormality of both kidneys. Hemoglobin is severe at home at 6.5 due to severe anemia. She was admitted and given blood transfusion x2 units, blood pressure was in compliance with 5 medications was discussed with the patient after blood transfusion. Patient was stabilized and was sent home in stable condition to follow up as an outpatient.
== END 2016-11-27 09:57 | disposition left against medical advice (07) | DRG 683 ==
LOC: EC 18:09 → 6SEL 19:19
PROVIDERS: ADMIT Family Medicine; ATTEND Family Medicine
DX: I12.9 Hypertensive chronic kidney disease with stage 1 through stage 4 chronic kidney disease, or unspecified chronic kidney disease (principal); E87.2 Acidosis; N17.9 Acute kidney failure, unspecified; N18.4 Chronic kidney disease, stage 4 (severe); Z94.0 Kidney transplant status; D63.1 Anemia in chronic kidney disease; E87.5 Hyperkalemia; F17.200 Nicotine dependence, unspecified, uncomplicated; J45.909 Unspecified asthma, uncomplicated; E55.9 Vitamin D deficiency, unspecified; F32.9 Major depressive disorder, single episode, unspecified; F41.9 Anxiety disorder, unspecified; G89.29 Other chronic pain; M54.9 Dorsalgia, unspecified; Z79.899 Other long term (current) drug therapy; N83.209 Unspecified ovarian cyst, unspecified side; Z79.52 Long term (current) use of systemic steroids; Z91.14 Patient's other noncompliance with medication regimen; Z88.8 Allergy status to other drugs, medicaments and biological substances
CPT/HCPCS: 36415; 80053; 81001; 81025; 84132; 85025; 85610; 85730; 86850; 86870; 86880; 86900; 86901; 86902; 86920; 99285

== ENCOUNTER 2018-05-01 18:38 | Inpatient (IN) | payer BC, OTHER ==
[2018-05-01] MEDS ORDERED: SODIUM CHLORIDE 0.9% 1,000 ML IV STA ×2 (20:11→23:14)
--- NOTE | 2018-05-01 20:32 | ED ---
Nausea/Vomiting/Diarrhea HPI - General Source: patient, RN notes reviewed Mode of arrival: wheelchair Limitations: no limitations <Thu He - Last Filed: 05/02/18 00:05> <Omar Coats - Last Filed: 05/03/18 08:30> - General Chief complaint: Nausea/Vomiting/Diarrhea Stated complaint: Weakness, NVD Time Seen by Provider: 05/01/18 19:48 - History of Present Illness Initial comments: This is a 27-year-old female with history of chronic kidney disease and heart failure who presents to the emergency department with chief complaint of weakness, vomiting and chest pain. 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 She states that at the age of 17 this was identified. She states that she has a failed transplant patient and is on hemodialysis. She states that she makes little to no urine. Patient also reports a history of "leaky valves. " She states that over the past few months she has been having chest pain and shortness of breath. She states that she does have an upcoming appointment with a technician preventative medicine. Patient states that over the last 2 days she has had vomiting and diarrhea. She followed up with her primary care provider who gave her Zofran. She states the diarrhea has resolved but she continues to have vomiting. She states over the last couple of weeks she has had chest pain. She states that it is substernal and radiates to her back. She denies any abdominal pain, fevers or chills. Patient states that she feels like her "body is failing." (Thu He) - Related Data Home Medications Medication Instructions Recorded Confirmed predniSONE 10 mg PO DAILY 05/27/15 05/02/18 Sodium Bicarbonate Tab 1,300 mg PO TID 05/31/15 05/02/18 Albuterol Sulfate [Proair Hfa] 2 puff INHALATION RT-Q6H PRN 01/22/16 05/02/18 Carvedilol 25 mg PO BID 07/01/16 05/02/18 Furosemide [Lasix] 80 mg PO DAILY 07/01/16 05/02/18 Ondansetron [Zofran] 4 mg PO Q8H PRN 11/26/16 05/02/18 ALPRAZolam [Xanax] 0.25 mg PO BID PRN 05/01/18 05/02/18 Calcium Acetate [PhosLo] 1,334 mg PO TID 05/01/18 05/02/18 NIFEdipine [NIFEdipine ER] 90 mg PO DAILY 05/01/18 05/02/18 Spironolactone [Aldactone] 25 mg PO DAILY 05/01/18 05/02/18 Allergies Allergy/AdvReac Type Severity Reaction Status Date / Time hydralazine AdvReac Rapid Verified 05/01/18 19:03 Heart Rate Review of Systems ROS Other: All systems not noted in ROS Statement are negative. <Thu He - Last Filed: 05/02/18 00:05> ROS Other: All systems not noted in ROS Statement are negative. <Omar Coats - Last Filed: 05/03/18 08:30> ROS Statement: Those systems with pertinent positive or pertinent negative responses have been documented in the HPI. Past Medical History Past Medical History: Asthma, Heart Failure, Hypertension, Renal Disease Additional Past Medical History / Comment(s): abdominal pain, hx kidney transplant 2009, acute on chronic renal failure. Other HX: polycystic renal failure with kidney transplant, CKD, vitimen D deficiency, anemia of chronic disease, ovarian cyst, chronic back pain, cardiomegaly History of Any Multi-Drug Resistant Organisms: None Reported Past Surgical History: Hernia Repair Additional Past Surgical History / Comment(s): 11/15/09 Kidney transplant R pelvis, dialysis catheter in and out, supra pubic hernia repair, transvaginal mesh, wisdom teeth extraction with anesthesia. Past Anesthesia/Blood Transfusion Reactions: No Reported Reaction Past Psychological History: Anxiety, Depression Smoking Status: Current some day smoker Past Alcohol Use History: None Reported Past Drug Use History: None Reported - Past Family History Father Family Medical History: No Reported History Additional Family Medical History / Comment(s): Father is healthy and is 59 yrs old. Mother Family Medical History: No Reported History Additional Family Medical History / Comment(s): Mother is healthy and is 57 yrs old. <Thu He - Last Filed: 05/02/18 00:05> General Exam Limitations: no limitations <Thu He - Last Filed: 05/02/18 00:05> <Omar Coats - Last Filed: 05/03/18 08:30> - General Exam Comments Initial Comments: General: Awake and alert, well-developed; in no apparent distress. Pleasant. Appears chronically ill. HEENT: Head atraumatic, normocephalic. Pupils are equal, round and reactive to light. Extraocular movements intact. Oropharynx moist without erythema or exudate. Neck: Supple. Normal ROM. Cardiovascular: Tachycardia. S3 gallop on auscultation. Chest symmetrical. Respiratory: Lungs clear to auscultation bilaterally. No wheezes, rales or rhonchi. Normal respiratory effort with no use of accessory muscles. Abdomen: Soft, thin. Non-distended. Non-tender. No rigidity, rebound or guarding. Normal bowel sounds in all 4 quadrants. Musculoskeletal: Normal ROM, no tenderness bilateral upper and lower extremities. Skin: [place], warm and dry without rashes or lesions. Neurological: Alert and oriented x3. CN II-XII grossly intact. Speech is fluent and answers are appropriate. No focal neuro deficits. Psychiatric: Normal mood and affect. No overt signs of depression or anxiety noted. (Thu He) Vital Signs 05/01/18 05/01/18 05/01/18 18:58 21:02 21:51 Temperature 98 F Pulse Rate 120 H 112 H 112 H Respiratory 18 20 20 Rate Blood Pressure 112/72 114/75 123/82 O2 Sat by Pulse 96 96 97 Oximetry 05/01/18 23:00 Temperature 98.4 F Pulse Rate 109 H Respiratory 18 Rate Blood Pressure 123/71 O2 Sat by Pulse 97 Oximetry Medical Decision Making - Lab Data Result diagrams: 05/01/18 19:52 05/01/18 19:52 - Radiology Data Radiology results: report reviewed <Thu He - Last Filed: 05/02/18 00:05> - Lab Data Result diagrams: 05/03/18 05:27 05/03/18 05:27 <Omar Coats - Last Filed: 05/03/18 08:30> - Medical Decision Making This is a 27-year-old female with history of chronic renal disease and heart failure with chief complaint of vomiting, weakness and chest pain. Patient is on hemodialysis. Her last hemodialysis was on Wednesday and it went without complication. She states she has dialysis Wednesday, Wednesday and Wednesday. Patient states that over the past 2 days she has had vomiting and diarrhea. Diarrhea has resolved by taking Zofran. Patient also reports a burning-like chest pain that radiates to her back for the past couple of weeks. On physical examination, patient appears chronically ill. An EKG revealed sinus tachycardia with left ventricular hypertrophy, left atrial enlargement and T- wave abnormalities. Troponin is elevated at 0.219. CBC reveals a hemoglobin at 10.3, however this is consistent with previous laboratory studies. BUN 62, creatinine 8.95, potassium 5.3 and magnesium 2.4. Chest x-ray revealed moderately severe cardiomegaly with mild heart failure. No significant changes from previous x-rays. BNP is 184,000. Findings were discussed with attending physicians, Dr. Goode and Dr. Coats. Dr. Coats did evaluate the patient. She will be admitted for repeat troponins. Cardiology and her electrical and electronic assembler, Dr. Kirby will be consulted. Patient remains tachycardic. She was started on normal saline 100 mL per hour and dropped to 75mL per hour on the floor. She reported anxiety so was given 1 mg of Ativan. Findings were discussed with patient and she is in agreement for admission. She is in no acute distress. (Thu He) I saw this patient in conjunction with the physician product development assistant. I performed independent history and physical exam. Agree with case management. (Omar Coats) - Lab Data Lab Results 05/01/18 05/01/18 05/01/18 Range/Units 19:52 19:52 19:52 WBC 6.9 (3.8-10.6) k/uL RBC 3.97 (3.80-5.40) m/uL Hgb 10.3 L (11.4-16.0) gm/dL Hct 35.1 (34.0-46.0) % MCV 88.4 (80.0-100.0) fL MCH 26.0 (25.0-35.0) pg MCHC 29.4 L (31.0-37.0) g/dL RDW 19.3 H (11.5-15.5) % Plt Count 314 (150-450) k/uL Neutrophils % 67 % Lymphocytes % 17 % Monocytes % 3 % Eosinophils % 11 % Basophils % 1 % Neutrophils # 4.6 (1.3-7.7) k/uL Lymphocytes # 1.2 (1.0-4.8) k/uL Monocytes # 0.2 (0-1.0) k/uL Eosinophils # 0.8 H (0-0.7) k/uL Basophils # 0.1 (0-0.2) k/uL Hypochromasia Marked Anisocytosis Slight PT 13.1 H (9.0-12.0) sec INR 1.4 H (<1.2) APTT 25.6 (22.0-30.0) sec Sodium 136 L (137-145) mmol/L Potassium 5.3 H (3.5-5.1) mmol/L Chloride 96 L (98-107) mmol/L Carbon Dioxide 26 (22-30) mmol/L Anion Gap 14 mmol/L BUN 62 H (7-17) mg/dL Creatinine 8.95 H* (0.52-1.04) mg/dL Est GFR (CKD-EPI)AfAm 6 (>60 ml/min/1.73 sqM) Est GFR (CKD-EPI)NonAf 6 (>60 ml/min/1.73 sqM) Glucose 119 H (74-99) mg/dL Calcium 8.9 (8.4-10.2) mg/dL Magnesium 2.4 H (1.6-2.3) mg/dL Total Bilirubin 1.0 (0.2-1.3) mg/dL AST 32 (14-36) U/L ALT 22 (9-52) U/L Alkaline Phosphatase 96 (38-126) U/L Troponin I (0.000-0.034) ng/mL NT-Pro-B Natriuret Pep pg/mL Total Protein 7.5 (6.3-8.2) g/dL Albumin 3.7 (3.5-5.0) g/dL 05/01/18 05/01/18 Range/Units 19:52 19:52 WBC (3.8-10.6) k/uL RBC (3.80-5.40) m/uL Hgb (11.4-16.0) gm/dL Hct (34.0-46.0) % MCV (80.0-100.0) fL MCH (25.0-35.0) pg MCHC (31.0-37.0) g/dL RDW (11.5-15.5) % Plt Count (150-450) k/uL Neutrophils % % Lymphocytes % % Monocytes % % Eosinophils % % Basophils % % Neutrophils # (1.3-7.7) k/uL Lymphocytes # (1.0-4.8) k/uL Monocytes # (0-1.0) k/uL Eosinophils # (0-0.7) k/uL Basophils # (0-0.2) k/uL Hypochromasia Anisocytosis PT (9.0-12.0) sec INR (<1.2) APTT (22.0-30.0) sec Sodium (137-145) mmol/L Potassium (3.5-5.1) mmol/L Chloride (98-107) mmol/L Carbon Dioxide (22-30) mmol/L Anion Gap mmol/L BUN (7-17) mg/dL Creatinine (0.52-1.04) mg/dL Est GFR (CKD-EPI)AfAm (>60 ml/min/1.73 sqM) Est GFR (CKD-EPI)NonAf (>60 ml/min/1.73 sqM) Glucose (74-99) mg/dL Calcium (8.4-10.2) mg/dL Magnesium (1.6-2.3) mg/dL Total Bilirubin (0.2-1.3) mg/dL AST (14-36) U/L ALT (9-52) U/L Alkaline Phosphatase (38-126) U/L Troponin I 0.219 H* (0.000-0.034) ng/mL NT-Pro-B Natriuret Pep [id number] pg/mL Total Protein (6.3-8.2) g/dL Albumin (3.5-5.0) g/dL - EKG Data EKG Comments: 19:52:40. Sinus tachycardia, left atrial enlargement, left ventricular hypertrophy, ST elevation, consider early repolarization, pericarditis or injury. Nonspecific T-wave abnormality. Ventricular rate 117 bpm, AR interval 162, QRS duration 92, QT/QTC 344/479 (Thu He) - Radiology Data Chest x-ray impression: Moderately severe cardiomegaly with mild heart failure. No significant change. (Thu He) Disposition Is patient prescribed a controlled substance at d/c from ED?: No Time of Disposition: 22:25 <Thu He - Last Filed: 05/02/18 00:05> <Omar Coats - Last Filed: 05/03/18 08:30> Clinical Impression: Congestive heart failure, Chronic kidney disease, Chest pain, Nausea & vomiting Disposition: ADMITTED IP TO THIS HOSP Condition: Fair
[2018-05-01] MEDS ORDERED: LORazepam 1 MG TAB PO STA (20:34)
--- NOTE | 2018-05-01 20:42 | XR ---
EXAMINATION TYPE: XR chest 2V DATE OF EXAM: 05/01/2018 COMPARISON: 04/28/2018 HISTORY: Weakness and nausea TECHNIQUE: Frontal and lateral views of the chest are obtained. FINDINGS: Heart is moderately enlarged. There is mild pulmonary congestion. There is no pleural effu dequan. Bony thorax is intact. IMPRESSION: Moderately severe cardiomegaly with mild heart failure. No significant change.
[2018-05-01 21:01] LABS: Anisocytosis Slight; Basophils # (A) 0.1 k/uL (0-0.2); Basophils % (A) 1 %; Eosinophils # (A) 0.8 k/uL (0-0.7); Eosinophils % (A) 11 %; HCT 35.1 % (34.0-46.0); HGB 10.3 gm/dL (11.4-16.0); Hypochromasia Marked; Lymphocytes # (A) 1.2 k/uL (1.0-4.8); Lymphocytes % (A) 17 %; MCHC 29.4 g/dL (31.0-37.0); MCV 88.4 fL (80.0-100.0); Monocytes # (A) 0.2 k/uL (0-1.0); Monocytes % (A) 3 %; Neutrophils # (A) 4.6 k/uL (1.3-7.7); Neutrophils % (A) 67 %; Platelet Count 314 k/uL (150-450); RBC 3.97 m/uL (3.80-5.40); RDW 19.3 % (11.5-15.5); WBC 6.9 k/uL (3.8-10.6)
[2018-05-01 21:05] LABS: INR 1.4 (<1.2); Partial Thromboplastin Time 25.6 sec (22.0-30.0); Prothrombin Time 13.1 sec (9.0-12.0)
[2018-05-01 21:15] LABS: Albumin 3.7 g/dL (3.5-5.0); Calcium 8.9 mg/dL (8.4-10.2); Magnesium 2.4 mg/dL (1.6-2.3); Potassium 5.3 mmol/L (3.5-5.1); Total Protein 7.5 g/dL (6.3-8.2)
[2018-05-01] MEDS ORDERED: PROMETHAZINE 25 MG TAB PO PRN (22:25)
[2018-05-01] MEDS ORDERED: ACETAMINOPHEN TAB 325 MG TAB PO PRN (22:25)
[2018-05-02 00:07] VITALS: BMI 20.5
[2018-05-02] MEDS ORDERED: NITROGLYCERIN SL TABS 0.4 MG TAB SUBLINGUAL PRN (00:15)
[2018-05-02] MEDS: ALPRAZolam 0.25 MG TAB PO PRN ×3 (00:28→23:32)
[2018-05-02] MEDS: ONDANSETRON 4 MG TAB PO PRN ×3 (00:28→20:30)
[2018-05-02] MEDS: MORPHINE SULFATE 2 MG/ML SYRINGE IVP PRN ×6 (00:29→23:32)
[2018-05-02 07:40] LABS: Anisocytosis Slight; Basophils # (A) 0.1 k/uL (0-0.2); Basophils % (A) 1 %; Eosinophils # (A) 1.3 k/uL (0-0.7); Eosinophils % (A) 18 %; HCT 30.7 % (34.0-46.0); Hypochromasia Marked; Lymphocytes % (A) 14 %; MCH 26.4 pg (25.0-35.0); MCHC 29.2 g/dL (31.0-37.0); MCV 90.4 fL (80.0-100.0); Mean Platelet Volume 7.7; Monocytes # (A) 0.2 k/uL (0-1.0); Monocytes % (A) 2 %; Neutrophils # (A) 4.5 k/uL (1.3-7.7); Neutrophils % (A) 64 %; Platelet Count 328 k/uL (150-450); RDW 18.9 % (11.5-15.5)
[2018-05-02 07:53] LABS: Albumin 3.2 g/dL (3.5-5.0); Calcium 8.6 mg/dL (8.4-10.2); Magnesium 2.3 mg/dL (1.6-2.3); Phosphorus 5.7 mg/dL (2.5-4.5); Potassium 5.1 mmol/L (3.5-5.1); Total Bilirubin 0.7 mg/dL (0.2-1.3); Total Protein 6.7 g/dL (6.3-8.2)
--- NOTE | 2018-05-02 09:55 | CONS ---
CONSULTATION CHIEF COMPLAINT: Chest pain, shortness of breath and tiredness. Rosi is a 27-year-old lady with history of end-stage renal disease, status post failed transplant, on hemodialysis, hypertension and severe pulmonary hypertension who presented to hospital complaining of shortness of breath, fatigue and chest pain. Her chest discomfort is sharp, precordial, unrelated to exertion and episodes with diaphoresis. EKG shows sinus rhythm with extensive ST-T wave changes, somewhat similar to her baseline EKG changes. A chest x-ray showed cardiomegaly with heart failure. LABS: Show that she is anemic with a hemoglobin of 9. BUN is 60, creatinine is 9.9. Troponins are in the biggs zone at 0.2, 0.1 and 0.1. Her BNP is elevated at 184,000. Patient had an echocardiogram this morning. The results are pending. PAST MEDICAL HISTORY: Significant for end-stage renal disease on hemodialysis, hypertension, and valvular heart disease. MEDICATIONS: At home include Xanax, Nifedipine, Aldactone, Lasix, carvedilol. ALLERGIES: Allergic to HYDRALAZINE. FAMILY HISTORY: Negative for premature coronary artery disease. SOCIAL HISTORY: Negative for current smoking, EtOH abuse, or drug abuse. REVIEW OF SYSTEMS: HEENT is unremarkable. CARDIAC: As described above. RESPIRATORY: As described above. GI: Negative. GENITOURINARY: Significant for end-stage renal disease on hemodialysis, status post failed kidney transplant. PSYCHOSOCIAL: Negative. ENDOCRINE: Negative. ONCOLOGICAL: Significant for anemia. DERM: Negative. CONSTITUTIONAL: Negative. ONCOLOGICAL: Negative. Rest of the system review is not relevant. PHYSICAL EXAM: Patient is comfortable at rest. Afebrile. Heart rate is 106 beats per minute, blood pressure is 156/99, respiratory rate is 18, O2 sat is 96% on 2 L. There is no jugular venous distention. Carotid upstroke is diminished. There is no bruit. Chest exam reveals diminished air entry at the bases. Heart exam reveals first and second heart sounds. A 3 x 6 systolic murmur at the left lower sternal border and at the apex. Abdomen is soft. Exam of extremities did not reveal any edema. Peripheral pulses are palpable. EKG shows sinus tachycardia with a heart rate of 117 beats per minute with evidence of left ventricular hypertrophy and extensive ST-T wave changes. ASSESSMENT: 1. Chest pain, probably related to the sinus tachycardia. There may be a component of pericarditis. 2. History of valvular heart disease. 3. History of pulmonary hypertension. 4. History of hypertension. 5. End-stage renal disease on hemodialysis. PLAN: I am going to review the echo results. I will continue with the IV diuretics. Patient will be dialyzed. I am going to increase the dose of beta blockers given the sinus tachycardia which and sinus tachycardia inch depending upon what the echo shows. If she has significant valvular heart disease, I may consider performing a SAMUEL, but I think patient would benefit from being referred to a Heart failure Clinic or Transplant Clinic at [facility] given the given the LV dysfunction and the pulmonary hypertension and will make arrangements for the same. MMODL / IJN: [id number] /
[2018-05-02] MEDS: CARVEDILOL 12.5 MG TAB PO SCH ×2 (10:56→19:10)
--- NOTE | 2018-05-02 10:57 | P.HPIM ---
History of Present Illness This is a pleasant 27 years old female with past medical history of failed kidney transplant, she is currently on hemodialysis. Patient was born with one polycystic kidney. She also has history of CHF, hypertension, asthma, anemia of chronic disease, vitamin D deficiency, ovarian cyst, chronic back pain. Who presents because of generalized weakness, with nausea vomiting and diarrhea of 2 days' duration for about a week she was complaining of from cough with some yellowish phlegm and has been getting better. However over the last 2 days she started having nausea vomiting about 4-5 times per day associated with diarrhea about more than 10 times per day was in the beginning watery but now is becoming less runny towards loose stool. Patient denies abdominal pain patient states that she doesn't have. Actually because of her medical problems. I offered to do test however patient declined. Risks, alternatives, and benefits are explained to the patient she verbalized understanding. Over the last 2 days patient was having recent heart rate at certain points to become some pleuritic-like chest pain central and in the back increased by breathing and coughing patient is not really dyspneic/tachypneic In the emergency room patient received IV fluids sodium chloride and 75 mL per hour, her bile shows unremarkable WBC and platelets, with mild anemia at hemoglobin: 9. INR is 1.4, sodium 139, potassium 5.1, creatinine high at 9.9. Elevated troponin between 0.16 and 0.21. Elevated proBNP at [id number]. CHF so showing cardiomegaly with mild heart failure/mild pulmonary congestion. No pleural effusion. Cardiology and nephrology team are consulted from emergency room. has been evaluated by the nephrology team and the planned for dialysis today with holding IV fluids. Patient has been evaluated by cardiology team and their recommendation is pending. However patient denies history of CHF, she only states she has history of cardiomegaly Review of Systems CONSTITUTIONAL: No fever, no malaise, no fatigue. HEENT: No recent visual problems or hearing problems. Denied any sore throat. CARDIOVASCULAR: No orthopnea, PND, no palpitations, no syncope. PULMONARY: No shortness of breath, no cough, no hemoptysis. GASTROINTESTINAL: No diarrhea, no nausea, no vomiting, no abdominal pain. Normoactive bowel sounds. NEUROLOGICAL: No headaches, no weakness, no numbness. HEMATOLOGICAL: Denies any bleeding or petechiae. GENITOURINARY: Denies any burning micturition, frequency, or urgency. MUSCULOSKELETAL/RHEUMATOLOGICAL: Denies any joint pain, swelling, or any muscle pain. ENDOCRINE: Denies any polyuria or polydipsia. Past Medical History Past Medical History: Asthma, Heart Failure, Hypertension, Renal Disease Additional Past Medical History / Comment(s): abdominal pain, hx kidney transplant 2009, acute on chronic renal failure. Other HX: polycystic renal failure with kidney transplant, CKD, vitimen D deficiency, anemia of chronic disease, ovarian cyst, chronic back pain, cardiomegaly History of Any Multi-Drug Resistant Organisms: None Reported Past Surgical History: Hernia Repair Additional Past Surgical History / Comment(s): 11/15/09 Kidney transplant R pelvis, dialysis catheter in and out, supra pubic hernia repair, transvaginal mesh, wisdom teeth extraction with anesthesia. Past Anesthesia/Blood Transfusion Reactions: No Reported Reaction Past Psychological History: Anxiety, Depression Smoking Status: Current some day smoker Past Alcohol Use History: None Reported Past Drug Use History: None Reported - Past Family History Father Family Medical History: No Reported History Additional Family Medical History / Comment(s): Father is healthy and is 59 yrs old. Mother Family Medical History: No Reported History Additional Family Medical History / Comment(s): Mother is healthy and is 57 yrs old. Medications and Allergies Home Medications Medication Instructions Recorded Confirmed Type predniSONE 10 mg PO DAILY 05/27/15 05/02/18 History Sodium Bicarbonate Tab 1,300 mg PO TID 05/31/15 05/02/18 History Albuterol Sulfate [Proair Hfa] 2 puff INHALATION RT-Q6H PRN 01/22/16 05/02/18 History Carvedilol 25 mg PO BID 07/01/16 05/02/18 History Furosemide [Lasix] 80 mg PO DAILY 07/01/16 05/02/18 History Ondansetron [Zofran] 4 mg PO Q8H PRN 11/26/16 05/02/18 History ALPRAZolam [Xanax] 0.25 mg PO BID PRN 05/01/18 05/02/18 History Calcium Acetate [PhosLo] 1,334 mg PO TID 05/01/18 05/02/18 History NIFEdipine [NIFEdipine ER] 90 mg PO DAILY 05/01/18 05/02/18 History Spironolactone [Aldactone] 25 mg PO DAILY 05/01/18 05/02/18 History Allergies Allergy/AdvReac Type Severity Reaction Status Date / Time hydralazine AdvReac Rapid Verified 05/01/18 19:03 Heart Rate Physical Exam Vitals: Vital Signs Temp Pulse Pulse Resp BP BP Pulse Ox 05/02/18 07:21 96 05/02/18 04:00 98.1 F 106 H 16 156/99 99 05/02/18 00:15 95 05/02/18 00:00 98.3 F 118 H 16 127/79 95 05/01/18 23:00 98.4 F 109 H 18 123/71 97 05/01/18 21:51 112 H 20 123/82 97 05/01/18 21:02 112 H 20 114/75 96 05/01/18 18:58 98 F 120 H 18 112/72 96 Intake and Output 05/01/18 05/02/18 05/02/18 22:59 06:59 14:59 Intake Total 200 0 Balance 200 0 Intake: IV 200 0.9@50mls/hr 200 Oral 0 Other: # Voids 0 Weight 49.895 kg 51 kg GENERAL: The patient is alert and oriented x3, not in any acute distress. Well developed, well nourished. HEENT: Pupils are round and equally reacting to light. EOMI. No scleral icterus. No conjunctival pallor. Normocephalic, atraumatic. No pharyngeal erythema. No thyromegaly. CARDIOVASCULAR: S1 and S2 present. No murmurs, rubs, or gallops. PULMONARY: Chest is clear to auscultation, no wheezing or crackles. ABDOMEN: Soft, nontender, nondistended, normoactive bowel sounds. No palpable organomegaly. MUSCULOSKELETAL: No joint swelling or deformity. EXTREMITIES: No cyanosis, clubbing, or pedal edema. NEUROLOGICAL: Gross neurological examination did not reveal any focal deficits. SKIN: No rashes. Results CBC & Chem 7: 05/02/18 06:45 05/02/18 06:45 Labs: Abnormal Lab Results - Last 24 Hours (Table) 05/01/18 05/01/18 05/01/18 Range/Units 19:52 19:52 19:52 RBC (3.80-5.40) m/uL Hgb 10.3 L (11.4-16.0) gm/dL Hct (34.0-46.0) % MCHC 29.4 L (31.0-37.0) g/dL RDW 19.3 H (11.5-15.5) % Eosinophils # 0.8 H (0-0.7) k/uL PT 13.1 H (9.0-12.0) sec INR 1.4 H (<1.2) Sodium 136 L (137-145) mmol/L Potassium 5.3 H (3.5-5.1) mmol/L Chloride 96 L (98-107) mmol/L BUN 62 H (7-17) mg/dL Creatinine 8.95 H* (0.52-1.04) mg/dL Glucose 119 H (74-99) mg/dL Phosphorus (2.5-4.5) mg/dL Magnesium 2.4 H (1.6-2.3) mg/dL Troponin I (0.000-0.034) ng/mL Albumin (3.5-5.0) g/dL 05/01/18 05/02/18 05/02/18 Range/Units 19:52 00:51 06:45 RBC 3.40 L (3.80-5.40) m/uL Hgb 9.0 L (11.4-16.0) gm/dL Hct 30.7 L (34.0-46.0) % MCHC 29.2 L (31.0-37.0) g/dL RDW 18.9 H (11.5-15.5) % Eosinophils # 1.3 H (0-0.7) k/uL PT (9.0-12.0) sec INR (<1.2) Sodium (137-145) mmol/L Potassium (3.5-5.1) mmol/L Chloride (98-107) mmol/L BUN (7-17) mg/dL Creatinine (0.52-1.04) mg/dL Glucose (74-99) mg/dL Phosphorus (2.5-4.5) mg/dL Magnesium (1.6-2.3) mg/dL Troponin I 0.219 H* 0.175 H* (0.000-0.034) ng/mL Albumin (3.5-5.0) g/dL 05/02/18 05/02/18 Range/Units 06:45 06:45 RBC (3.80-5.40) m/uL Hgb (11.4-16.0) gm/dL Hct (34.0-46.0) % MCHC (31.0-37.0) g/dL RDW (11.5-15.5) % Eosinophils # (0-0.7) k/uL PT (9.0-12.0) sec INR (<1.2) Sodium (137-145) mmol/L Potassium (3.5-5.1) mmol/L Chloride (98-107) mmol/L BUN 60 H (7-17) mg/dL Creatinine 9.96 H* (0.52-1.04) mg/dL Glucose (74-99) mg/dL Phosphorus 5.7 H (2.5-4.5) mg/dL Magnesium (1.6-2.3) mg/dL Troponin I 0.169 H* (0.000-0.034) ng/mL Albumin 3.2 L (3.5-5.0) g/dL Thrombosis Risk Factor Assmnt - Choose All That Apply Any of the Below Risk Factors Present?: No Other Risk Factors: No Other congenital or acquired thrombophilia - If yes, enter type in comment: No Thrombosis Risk Factor Assessment Level: Very Low Risk Assessment and Plan Assessment: Elevated troponin, rule out acute coronary syndrome End stage renal disease, on hemodialysis. Failed kidney transplant Possible acute CHF, hypertension, History of asthma anemia of chronic disease vitamin D deficiency History of ovarian cyst chronic back pain. Plan: This is a pleasant 27 years old female who presents with signs symptoms of gastroenteritis, and acute renal failure. Patient comes with volume depletion within replace with IV fluids in the emergency room. Continue with IV fluids for now and follow up nephrology recommendation for the fluid management. Resume hemodialysis as per nephrology. Cardiology evaluated for elevated troponins and history of cardiomegaly. Kidney with same treatment. Continue symptomatic treatment. Resume home medication. Monitor labs and vitals. GI and DVT prophylaxis. Mentation is based on the clinical course of the patient DVT prophylaxis: Subcutaneous heparin GI prophylaxis: Pepcid PT/OT: Pending Prognosis is guarded
--- NOTE | 2018-05-02 12:26 | ECHOF ---
Referral Reason:Heart Failure MEASUREMENTS -------- HEIGHT: 157.5 cm WEIGHT: 50.8 kg BP: 156/99 RVIDd: 2.2 cm (< 3.3) IVSd: 1.4 cm (0.6 - 1.1) LVIDd: 5.5 cm (3.9 - 5.3) LVPWd: 1.4 cm (0.6 - 1.1) IVSs: 1.2 cm LVIDs: 5.2 cm LVPWs: 1.6 cm LAESV Index (A-L): 44.22 ml/m Ao Diam: 2.9 cm (2.0 - 3.7) AV Cusp: 1.6 cm (1.5 - 2.6) LA Diam: 4.2 cm (2.7 - 3.8) MV EXCURSION: 13.883 mm (> 18.000) MV EF SLOPE: 140 mm/s (70 - 150) EPSS: 1.5 cm MV E Minesh: 2.09 m/s MV DecT: 134 ms MV A Minesh: 1.14 m/s MV E/A Ratio: 1.82 AV maxP.22 mmHg AV meanP.95 mmHg AR PHT: 313 ms RAP: 15.00 mmHg RVSP: 89.33 mmHg FINDINGS -------- Sinus rhythm. Resting tachycardia (HR>100bpm). This was a technically good study. The left ventricle is mildly dilated. There is moderate concentric left ventricular hypertrophy. There is severe global hypokinesis of LV . Overall left ventricular systolic function is severely i mpaired with, an EF between 20 - 25 %. The right ventricle is normal in size and function. LA is severely dilated >40 ml/m2 The right atrium is normal in size. The aortic valve is trileaflet and appears structurally normal. There is moderate aortic regurgitat ion. Peak/mean gradient across the Aortic Valve is 16.22mmHg / 9.95mmHg. The mitral valve is normal. [id number] mitral regurgitation is present. Severe tricuspid regurgitation present. There is severe pulmonary hypertension. The right ventric ular systolic pressure, as measured by Doppler, is 89.33mmHg. Moderate pulmonic regurgitation. The aortic root size is normal. The inferior vena cava is mildly dilated. There is a small, generalized pericardial effusion present. CONCLUSIONS -------- 1. Sinus rhythm. 2. Resting tachycardia (HR>100bpm). 3. This was a technically good study. 4. The left ventricle is mildly dilated. 5. There is moderate concentric left ventricular hypertrophy. 6. There is severe global hypokinesis of LV . 7. Overall left ventricular systolic function is severely impaired with, an EF between 20 - 25 %. 8. The right ventricle is normal in size and function. 9. LA is severely dilated >40 ml/m2 10. The right atrium is normal in size. 11. The aortic valve is trileaflet and appears structurally normal. 12. There is moderate aortic regurgitation. 13. Peak/mean gradient across the Aortic Valve is 16.22mmHg / 9.95mmHg. 14. The mitral valve is normal. 15. Uwtc-lv-cswivdof mitral regurgitation is present. 16. Severe tricuspid regurgitation present. 17. There is severe pulmonary hypertension. 18. Moderate pulmonic regurgitation. 19. The aortic root size is normal. 20. The inferior vena cava is mildly dilated. 21. There is a small, generalized pericardial effusion present. MOTORCOACH OPERATOR: Eden Noble RDCS
[2018-05-02] MEDS: ALBUTEROL NEBULIZED 2.5 MG/3 ML INHALATION PRN (13:17)
[2018-05-02] MEDS ORDERED: DARBEPOETIN ALFA 40 MCG/0.4 ML SYRINGE SQ SCH (16:00)
[2018-05-02] MEDS: CALCIUM ACETATE 667 MG CAP PO SCH (19:09)
--- NOTE | 2018-05-02 19:19 | CONS ---
CONSULTATION REASON FOR CONSULT: End-stage renal disease. HISTORY OF PRESENT ILLNESS: The patient is a 27-year-old female with end-stage renal disease, on hemodialysis on a Wednesday, Wednesday, Wednesday schedule. The patient was admitted to the hospital with complaints of diarrhea and abdominal discomfort. She had some nausea and vomiting, however, she has been taking Zofran, which was started by her primary care physician as outpatient a few days ago. Patient states the Zofran has helped with the nausea. She has not had any further diarrhea after admission. The patient has had issues with uncontrolled hypertension, mostly volume sensitive, and she states that her dry weight has been higher than her usual for the past week or so. She denies missing any treatments. PAST MEDICAL HISTORY: End-stage renal disease with history of renal transplant which failed. Currently patient is on dialysis. She has anemia of chronic disease, CKD mineral bone disorder, history of CHF. Echocardiogram this admission showed ejection fraction of 20% to 25% with concentric LVH. Left atrium is severely dilated. PAST SURGICAL HISTORY: Renal transplant, multiple PermCath placement, AV graft, transvaginal mesh. SOCIAL HISTORY: Positive for smoking. No drug abuse or alcohol abuse. MEDICATIONS PRIOR TO ADMISSION: 1. Lasix. 2. Zofran. 3. Xanax. 4. PhosLo. 5. Nifedipine. 6. Aldactone. 7. Coreg. 8. Sodium bicarb. 9. Prednisone. 10.ProAir. ALLERGIES: HYDRALAZINE which causes rapid heart rate. EXAMINATION: Heart, S1, S2. Examination of lungs, bilateral crackles are heard. Abdomen is soft, nontender. Examination of lower extremities shows no evidence of edema. MECHANICAL SPREADER OPERATOR exam is grossly intact. Renal allograft is nontender. LABS: Sodium 139, potassium 5.1, BUN 60, serum creatinine 9.96, hemoglobin 9.0 g/dL, phosphorus was 5.7. C diff toxin was negative. ASSESSMENT: 1. End-stage renal disease, on hemodialysis on a Wednesday, Wednesday, Wednesday schedule. We will arrange for hemodialysis today. Discontinue the IV fluids as patient is volume overloaded. 2. Volume overload. Discontinue IV fluids. Ultrafiltration of about 2 to 3 L with hemodialysis today. We will plan for an extra treatment again tomorrow. 3. Cardiomyopathy with ejection fraction 20% to 25% on current echocardiogram. 4. Chronic kidney disease mineral bone disorder. 5. Hypertension. PLAN: Hep-Lock IV fluids. Hemodialysis today with UF of about 2 to 3 L. We will plan for dialysis again tomorrow. I will resume her PhosLo that she takes at home. We will also maintain her on Aranesp for the anemia. Thank you for this consultation. We will continue to follow the patient with you during her hospitalization. MMODL / IJN: [id number] /
[2018-05-03] MEDS: ONDANSETRON 4 MG TAB PO PRN ×2 (03:53→20:50)
[2018-05-03 05:00] LABS: Hepatitis B Surface AB- Quant 80.3 mIU/mL
[2018-05-03 06:34] LABS: Calcium 8.9 mg/dL (8.4-10.2); Potassium 5.3 mmol/L (3.5-5.1)
[2018-05-03] MEDS: CALCIUM ACETATE 667 MG CAP PO SCH ×3 (06:42→17:47)
[2018-05-03] MEDS: CARVEDILOL 12.5 MG TAB PO SCH ×2 (06:42→17:47)
[2018-05-03 07:08] LABS: Anisocytosis Slight; Basophils # (A) 0.1 k/uL (0-0.2); Basophils % (A) 1 %; Eosinophils # (A) 1.2 k/uL (0-0.7); Eosinophils % (A) 20 %; HCT 31.5 % (34.0-46.0); HGB 9.1 gm/dL (11.4-16.0); Hypochromasia Marked; Lymphocytes # (A) 1.1 k/uL (1.0-4.8); Lymphocytes % (A) 18 %; MCH 25.9 pg (25.0-35.0); MCHC 28.8 g/dL (31.0-37.0); MCV 90.2 fL (80.0-100.0); Mean Platelet Volume 8.3; Monocytes # (A) 0.2 k/uL (0-1.0); Monocytes % (A) 4 %; Neutrophils # (A) 3.3 k/uL (1.3-7.7); Neutrophils % (A) 56 %; Platelet Count 286 k/uL (150-450); RBC 3.49 m/uL (3.80-5.40); RDW 18.9 % (11.5-15.5)
[2018-05-03 07:38] LABS: Poikilocytosis (M) Present; Target Cells Present
--- NOTE | 2018-05-03 10:05 | P.PN ---
Subjective This is a pleasant 27 years old female with past medical history of failed kidney transplant, she is currently on hemodialysis. Patient was born with one polycystic kidney. She also has history of CHF, hypertension, asthma, anemia of chronic disease, vitamin D deficiency, ovarian cyst, chronic back pain. Who presents because of generalized weakness, with nausea vomiting and diarrhea of 2 days' duration for about a week she was complaining of from cough with some yellowish phlegm and has been getting better. However over the last 2 days she started having nausea vomiting about 4-5 times per day associated with diarrhea about more than 10 times per day was in the beginning watery but now is becoming less runny towards loose stool. Patient denies abdominal pain patient states that she doesn't have. Actually because of her medical problems. I offered to do test however patient declined. Risks, alternatives, and benefits are explained to the patient she verbalized understanding. Over the last 2 days patient was having recent heart rate at certain points to become some pleuritic-like chest pain central and in the back increased by breathing and coughing patient is not really dyspneic/tachypneic In the emergency room patient received IV fluids sodium chloride and 75 mL per hour, her bile shows unremarkable WBC and platelets, with mild anemia at hemoglobin: 9. INR is 1.4, sodium 139, potassium 5.1, creatinine high at 9.9. Elevated troponin between 0.16 and 0.21. Elevated proBNP at [id number]. CHF so showing cardiomegaly with mild heart failure/mild pulmonary congestion. No pleural effusion. Cardiology and nephrology team are consulted from emergency room. has been evaluated by the nephrology team and the planned for dialysis today with holding IV fluids. Patient has been evaluated by cardiology team and their recommendation is pending. However patient denies history of CHF, she only states she has history of cardiomegaly 05/03/18 Patient still have some complains from racing heart rate 104 heart rate is controlled today 80s and 90s. She still feels nauseated but no vomiting. No abdominal pain which is resolved. However patient is still complaining of some cough with yellow phlegm and her pleuritic central chest pain feels better. On examination there is pericardial rub with effusion on echo, suspicious for uremic pericarditis. Patient is status post dialysis. She is steroid dependent taking prednisone 10 mg daily at home for her transplant kidney. C. diff is negative. With chest x-ray showing cardiomegaly reactive hemoglobin stable at 9.13 at no leukocytosis area potassium 5.3. Sodium 134. Compressed Gas Tester R Following the Case. Ejection fraction 20-25% area cardiology R following the case. Truck Dock Material Mover recommended for the patient to heart failure clinic transplant clinic at [facility] Objective - Vital Signs Vital signs: Vital Signs Temp 98.3 F 05/03/18 08:30 Pulse 87 05/03/18 08:30 Resp 16 05/03/18 08:30 BP 161/100 05/03/18 08:30 Pulse Ox 96 05/03/18 08:30 Intake & Output 05/02/18 05/03/18 05/03/18 18:59 06:59 18:59 Intake Total 270 118 100 Balance 270 118 100 Weight 50.9 kg Intake: IV 150 0.9@50mls/hr 150 Oral 120 118 100 Other: # Voids 0 # Bowel Movements 1 - Exam GENERAL: The patient is alert and oriented x3, not in any acute distress. Well developed, well nourished. HEENT: Pupils are round and equally reacting to light. EOMI. No scleral icterus. No conjunctival pallor. Normocephalic, atraumatic. No pharyngeal erythema. No thyromegaly. -CARDIOVASCULAR: S1 and S2 present. No murmurs, rubs, or gallops. Pericardial rub PULMONARY: Chest is clear to auscultation, no wheezing or crackles. ABDOMEN: Soft, nontender, nondistended, normoactive bowel sounds. No palpable organomegaly. MUSCULOSKELETAL: No joint swelling or deformity. EXTREMITIES: No cyanosis, clubbing, or pedal edema. NEUROLOGICAL: Gross neurological examination did not reveal any focal deficits. SKIN: No rashes. - Labs CBC & Chem 7: 05/03/18 05:27 05/03/18 05:27 Labs: Abnormal Lab Results - Last 24 Hours (Table) 05/02/18 05/02/18 05/03/18 Range/Units 06:45 12:27 05:27 RBC 3.49 L (3.80-5.40) m/uL Hgb 9.1 L (11.4-16.0) gm/dL Hct 31.5 L (34.0-46.0) % MCHC 28.8 L (31.0-37.0) g/dL RDW 18.9 H (11.5-15.5) % Eosinophils # 1.2 H (0-0.7) k/uL Sodium (137-145) mmol/L Potassium (3.5-5.1) mmol/L BUN (7-17) mg/dL Creatinine (0.52-1.04) mg/dL Troponin I 0.154 H* (0.000-0.034) ng/mL Hep Bs Antibody Reactive H (Non-Reactive) 05/03/18 Range/Units 05:27 RBC (3.80-5.40) m/uL Hgb (11.4-16.0) gm/dL Hct (34.0-46.0) % MCHC (31.0-37.0) g/dL RDW (11.5-15.5) % Eosinophils # (0-0.7) k/uL Sodium 134 L (137-145) mmol/L Potassium 5.3 H (3.5-5.1) mmol/L BUN 32 H (7-17) mg/dL Creatinine 6.14 H (0.52-1.04) mg/dL Troponin I (0.000-0.034) ng/mL Hep Bs Antibody (Non-Reactive) Assessment and Plan Assessment: Elevated troponin, rule out acute coronary syndrome 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 Failed kidney transplant. Patient is a steroid dependent currently Possible acute CHF, hypertension, History of asthma anemia of chronic disease vitamin D deficiency History of ovarian cyst chronic back pain. Plan: This is a pleasant 27 years old female who presents with signs symptoms of gastroenteritis, and acute renal failure. Patient comes with volume depletion within replace with IV fluids in the emergency room. Continue with IV fluids for now and follow up nephrology recommendation for the fluid management. Resume hemodialysis as per nephrology. Cardiology evaluated for elevated troponins and history of cardiomegaly. Kidney with same treatment. Continue symptomatic treatment. Resume home medication. Monitor labs and vitals. GI and DVT prophylaxis. Mentation is based on the clinical course of the patient DVT prophylaxis: Subcutaneous heparin GI prophylaxis: Pepcid PT/OT: Pending Prognosis is guarded
[2018-05-03] MEDS: ALPRAZolam 0.25 MG TAB PO PRN ×2 (10:35→23:18)
--- NOTE | 2018-05-03 10:44 | P.PN ---
Subjective Progress Note Date: 05/03/18 This is a 27-year-old -[place] female with history of end-stage renal disease, status post failed transplant on hemodialysis, hypertension, severe pulmonary hypertension, cardiomyopathy, who presented to the hospital with symptoms of shortness of breath with associated fatigue and chest discomfort. Her EKG on admission here showed a normal sinus rhythm with extensive ST-T wave changes, similar to prior EKGs. Chest x-ray revealed moderately severe cardiomegaly with mild heart failure. Echocardiogram with Doppler study was performed which revealed an ejection fraction of 20-25%, mild to moderate mitral regurg and severe tricuspid regurg and severe pulmonary hypertension noted. Moderate pulmonary regurgitation as well. At pressure this morning 160/ 100 prior to medication administration, heart rate in the 80s. Hemoglobin today 9.1, platelet count 286. Sodium 134, potassium 5.3, BUN 32, creatinine 6.1. At the time of my examination this morning, patient just complains of feeling extremely tired today. Breathing is stable. Objective - Vital Signs Vital signs: Vital Signs Temp 98.3 F 05/03/18 08:30 Pulse 87 05/03/18 08:30 Resp 16 05/03/18 08:30 BP 161/100 05/03/18 08:30 Pulse Ox 96 05/03/18 08:30 Intake & Output 05/02/18 05/03/18 05/03/18 18:59 06:59 18:59 Intake Total 270 118 100 Balance 270 118 100 Weight 50.9 kg Intake: IV 150 0.9@50mls/hr 150 Oral 120 118 100 Other: # Voids 0 # Bowel Movements 1 - Exam PHYSICAL EXAMINATION: GENERAL: 27-year-old -[place] female in no acute distress at the time of my examination HEENT: Head is atraumatic, normocephalic. Pupils equal, round. Sclera anicteric. Conjunctiva are clear. Mucous membranes of the mouth are moist. Neck is supple. There is elevated jugular venous pressure. No carotid bruit is heard. HEART EXAMINATION: Heart S1 and S2 1 grade 3/6 systolic murmur is heard at the left lower sternal border CHEST EXAMINATION: Lungs are clear with diminished air entry to bilateral bases. ABDOMEN: Soft, nontender. Bowel sounds are heard. No organomegaly noted. EXTREMITIES: 2+ peripheral pulses with no evidence of peripheral edema and no calf tenderness noted. NEUROLOGIC patient is awake, alert and oriented X3 . - Labs CBC & Chem 7: 05/03/18 05:27 05/03/18 05:27 Labs: Abnormal Lab Results - Last 24 Hours (Table) 05/02/18 05/02/18 05/03/18 Range/Units 06:45 12:27 05:27 RBC 3.49 L (3.80-5.40) m/uL Hgb 9.1 L (11.4-16.0) gm/dL Hct 31.5 L (34.0-46.0) % MCHC 28.8 L (31.0-37.0) g/dL RDW 18.9 H (11.5-15.5) % Eosinophils # 1.2 H (0-0.7) k/uL Sodium (137-145) mmol/L Potassium (3.5-5.1) mmol/L BUN (7-17) mg/dL Creatinine (0.52-1.04) mg/dL Troponin I 0.154 H* (0.000-0.034) ng/mL Hep Bs Antibody Reactive H (Non-Reactive) 05/03/18 Range/Units 05:27 RBC (3.80-5.40) m/uL Hgb (11.4-16.0) gm/dL Hct (34.0-46.0) % MCHC (31.0-37.0) g/dL RDW (11.5-15.5) % Eosinophils # (0-0.7) k/uL Sodium 134 L (137-145) mmol/L Potassium 5.3 H (3.5-5.1) mmol/L BUN 32 H (7-17) mg/dL Creatinine 6.14 H (0.52-1.04) mg/dL Troponin I (0.000-0.034) ng/mL Hep Bs Antibody (Non-Reactive) Assessment and Plan Plan: Assessment and plan #1 chest pain, atypical in nature, may be a component of pericarditis. #2 end-stage renal disease on hemodialysis, failed transplant #3 history of valvular heart disease, echocardiogram with Doppler study was performed which revealed an ejection fraction of 20-25% with severe global hypokinesis. Mild to moderate mitral regurg, severe tricuspid regurg, severe pulmonary hypertension, moderate pulmonic regurg #4 accelerated hypertension #5 asthma #6 anemia Plan Blood pressure appears to be again accelerated this morning 160/100. We will consider the addition of angiotensin ashleigh, discussed with nephrology. Further recommendations to follow. DNP note has been reviewed, I agree with a documented findings and plan of care. Patient was seen and examined.
[2018-05-03] MEDS: MORPHINE SULFATE 2 MG/ML SYRINGE IVP PRN ×3 (10:55→20:48)
--- NOTE | 2018-05-03 21:22 | PN ---
PROGRESS NOTE Patient is seen for followup for end-stage renal disease. She is complaining of rapid heart rate and anxiety. Patient did get some Xanax this morning. Patient's heart rate is now in the 80s. Her Coreg was increased. She is being followed by Cardiology. She has had fluid overload and is scheduled for a second treatment of hemodialysis today. Patient will have her regular treatment again tomorrow. On examination this morning, blood pressure was 161/100. Repeat blood pressure was 135/96 later on. Heart rate about 86 per minute. Patient is afebrile. EXAMINATION OF THE HEART: S1, S2. EXAMINATION OF LUNGS: Bilateral breath sounds are heard. ABDOMEN: Soft, non-tender. Examination of lower extremities shows no significant edema. SENIOR DIRECTOR OF STRATEGY exam is grossly intact. Labs show sodium 134, potassium 5.3, chloride 100, hemoglobin 9.1 g/dL. ASSESSMENT: 1. End-stage renal disease, on hemodialysis on a Wednesday, Wednesday, Wednesday schedule via left arm AV fistula. Patient is having an extra treatment today. She will be dialyzed again tomorrow for her usual treatment. We will plan to remove 2 to 3 L, depending on her blood pressure. 2. Mild hyperkalemia. Expect improvement with hemodialysis today. 3. Anemia of chronic disease, maintained on Aranesp. 4. Severe cardiomyopathy, ejection fraction 20% to 25%. 5. Chronic kidney disease mineral bone disorder, maintained on PhosLo. PLAN: Continue with the Coreg. If patient continues to complain of palpitations, consider switching to Lopressor or Tenormin. We will dialyze her again tomorrow. Possible discharge tomorrow. MMODL / IJN: [id number] /
[2018-05-04] MEDS: MORPHINE SULFATE 2 MG/ML SYRINGE IVP PRN ×4 (00:58→15:29)
[2018-05-04] MEDS: CALCIUM ACETATE 667 MG CAP PO SCH ×3 (06:48→17:43)
[2018-05-04] MEDS: CARVEDILOL 12.5 MG TAB PO SCH ×2 (06:48→17:43)
[2018-05-04] MEDS: ALBUTEROL NEBULIZED 2.5 MG/3 ML INHALATION PRN (10:03)
--- NOTE | 2018-05-04 11:14 | P.PN ---
Subjective Progress Note Date: 05/04/18 This is a 27-year-old -[place] female with history of end-stage renal disease, status post failed transplant on hemodialysis, hypertension, severe pulmonary hypertension, cardiomyopathy, who presented to the hospital with symptoms of shortness of breath with associated fatigue and chest discomfort. Her EKG on admission here showed a normal sinus rhythm with extensive ST-T wave changes, similar to prior EKGs. Chest x-ray revealed moderately severe cardiomegaly with mild heart failure. Echocardiogram with Doppler study was performed which revealed an ejection fraction of 20-25%, mild to moderate mitral regurg and severe tricuspid regurg and severe pulmonary hypertension noted. Moderate pulmonary regurgitation as well. At pressure this morning 160/ 100 prior to medication administration, heart rate in the 80s. Hemoglobin today 9.1, platelet count 286. Sodium 134, potassium 5.3, BUN 32, creatinine 6.1. At the time of my examination this morning, patient just complains of feeling extremely tired today. Breathing is stable. 05/04/2018 Patient seen and examined this morning, overall she does state that she is feeling better. White blood cell count 6.0, hemoglobin 9.1, platelet count 286. Sodium 134, potassium 5.3, BUN 32, creatinine 6.1. Blood pressure 126/80 with a heart rate in the 80s, 100% on 2 L of oxygen. Objective - Vital Signs Vital signs: Vital Signs Temp 97.8 F 05/04/18 04:00 Pulse 84 05/04/18 04:00 Resp 16 05/04/18 04:00 BP 126/86 05/04/18 04:00 Pulse Ox 100 05/04/18 04:00 Intake & Output 05/03/18 05/04/18 05/04/18 18:59 06:59 18:59 Intake Total 390 100 Output Total 0 Balance 390 0 100 Weight 50.9 kg 50.1 kg Intake: Oral 390 100 Output: Urine 0 Urine/Stool Mix 0 Other: # Voids 0 0 # Bowel Movements 0 - Exam PHYSICAL EXAMINATION: GENERAL: 27-year-old -[place] female in no acute distress at the time of my examination HEENT: Head is atraumatic, normocephalic. Pupils equal, round. Sclera anicteric. Conjunctiva are clear. Mucous membranes of the mouth are moist. Neck is supple. There is elevated jugular venous pressure. No carotid bruit is heard. HEART EXAMINATION: Heart S1 and S2 1 grade 3/6 systolic murmur is heard at the left lower sternal border CHEST EXAMINATION: Lungs are clear with diminished air entry to bilateral bases. ABDOMEN: Soft, nontender. Bowel sounds are heard. No organomegaly noted. EXTREMITIES: 2+ peripheral pulses with no evidence of peripheral edema and no calf tenderness noted. NEUROLOGIC patient is awake, alert and oriented X3 . - Labs CBC & Chem 7: 05/03/18 05:27 05/03/18 05:27 Assessment and Plan Plan: Assessment and plan #1 chest pain, atypical in nature, may be a component of pericarditis. #2 end-stage renal disease on hemodialysis, failed transplant #3 history of valvular heart disease, echocardiogram with Doppler study was performed which revealed an ejection fraction of 20-25% with severe global hypokinesis. Mild to moderate mitral regurg, severe tricuspid regurg, severe pulmonary hypertension, moderate pulmonic regurg #4 accelerated hypertension #5 asthma #6 anemia Plan Cardiology's perspective, we'll recommend patient to continue current medications. We also recommend follow-up at [facility] post discharge. DNP note has been reviewed, I agree with a documented findings and plan of care. Patient was seen and examined.
[2018-05-04] MEDS: ONDANSETRON 4 MG TAB PO PRN (12:44)
[2018-05-04] MEDS: ALPRAZolam 0.25 MG TAB PO PRN (12:48)
--- NOTE | 2018-05-04 13:47 | P.DS ---
Providers Date of admission: 05/01/18 22:42 Expected date of discharge: 05/04/18 Attending physician: Agnieszka Rivera Consults: 05/01/18 22:26 Consult Physician Urgent Consulting Provider: Evangelista Larios Consult Reason/Comments: Chest pain, elevated troponins Do you want consulting provider notified?: Yes Consult Physician Urgent Consulting Provider: Lolis Kirby Consult Reason/Comments: Chronic kidney disease Do you want consulting provider notified?: Yes Primary care physician: Nestor Hernandez [facility] Course: Final Diagnoses: Elevated troponin, rule out acute coronary syndrome 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 Failed kidney transplant. Patient is a steroid dependent currently Possible acute CHF, hypertension, History of asthma anemia of chronic disease vitamin D deficiency History of ovarian cyst chronic back pain. Hospital course:This is a pleasant 27 years old female with past medical history of failed kidney transplant, she is currently on hemodialysis. Patient was born with one polycystic kidney. She also has history of CHF, hypertension , asthma, anemia of chronic disease, vitamin D deficiency, ovarian cyst, chronic back pain. Who presents because of generalized weakness, with nausea vomiting and diarrhea of 2 days' duration for about a week she was complaining of from cough with some yellowish phlegm and has been getting better. However over the last 2 days she started having nausea vomiting about 4-5 times per day associated with diarrhea about more than 10 times per day was in the beginning watery but now is becoming less runny towards loose stool. Patient denies abdominal pain patient states that she doesn't have. Actually because of her medical problems. I offered to do test however patient declined. Risks, alternatives, and benefits are explained to the patient she verbalized understanding. Over the last 2 days patient was having recent heart rate at certain points to become some pleuritic-like chest pain central and in the back increased by breathing and coughing patient is not really dyspneic/tachypneic In the emergency room patient received IV fluids sodium chloride and 75 mL per hour, her bile shows unremarkable WBC and platelets, with mild anemia at hemoglobin: 9. INR is 1.4, sodium 139, potassium 5.1, creatinine high at 9.9. Elevated troponin between 0.16 and 0.21. Elevated proBNP at [id number]. CHF so showing cardiomegaly with mild heart failure/mild pulmonary congestion. No pleural effusion. Cardiology and nephrology team are consulted from emergency room. has been evaluated by the nephrology team and the planned for dialysis today with holding IV fluids. Patient has been evaluated by cardiology team and their recommendation is pending. However patient denies history of CHF, she only states she has history of cardiomegaly 05/03/18 Patient still have some complains from racing heart rate 104 heart rate is controlled today 80s and 90s. She still feels nauseated but no vomiting. No abdominal pain which is resolved. However patient is still complaining of some cough with yellow phlegm and her pleuritic central chest pain feels better. On examination there is pericardial rub with effusion on echo, suspicious for uremic pericarditis. Patient is status post dialysis. She is steroid dependent taking prednisone 10 mg daily at home for her transplant kidney. C. diff is negative. With chest x-ray showing cardiomegaly reactive hemoglobin stable at 9.13 at no leukocytosis area potassium 5.3. Sodium 134. Metal Furniture Repairer R Following the Case. Ejection fraction 20-25% area cardiology R following the case. Buffing Wheel Raker recommended for the patient to heart failure clinic transplant clinic at [facility]. 05/04/2018 hemodialysis today. Significant clinical improvement. Patient to be discharged home pending nephrology's clearance and final DC recommendations. EXAM: GENERAL: The patient is alert and oriented x3, not in any acute distress. CARDIOVASCULAR: S1 and S2 present. No murmurs, rubs, or gallops. Pericardial rub PULMONARY: Chest is clear to auscultation, no wheezing or crackles. ABDOMEN: Soft, nontender, nondistended, normoactive bowel sounds. No palpable organomegaly. NEUROLOGICAL: Gross neurological examination did not reveal any focal deficits. The impression and plan of care has been dictated as directed. : I performed a history and examination of this patient, discussed the same with the dictator. I agree with the dictator's note ,documented as a scribe. Any additional findings or plans will be noted. Time taken: 35 minutes Patient Condition at Discharge: Stable Plan - Discharge Summary Discharge Rx Participant: No New Discharge Prescriptions: New Darbepoetin Aamir [Aranesp] 40 mcg SQ Q7D syringe Carvedilol 50 mg PO BID-W/MEALS #120 tablet Continue predniSONE 10 mg PO DAILY Albuterol Sulfate [Proair Hfa] 2 puff INHALATION RT-Q6H PRN PRN Reason: Shortness Of Breath Furosemide [Lasix] 80 mg PO DAILY Ondansetron [Zofran] 4 mg PO Q8H PRN PRN Reason: Nausea Calcium Acetate [PhosLo] 1,334 mg PO TID ALPRAZolam [Xanax] 0.25 mg PO BID PRN PRN Reason: Anxiety Discontinued NIFEdipine [NIFEdipine ER] 90 mg PO DAILY Spironolactone [Aldactone] 25 mg PO DAILY Discharge Medication List predniSONE 10 mg PO DAILY 05/27/15 [History] Albuterol Sulfate [Proair Hfa] 2 puff INHALATION RT-Q6H PRN 01/22/16 [History] Furosemide [Lasix] 80 mg PO DAILY 07/01/16 [History] Ondansetron [Zofran] 4 mg PO Q8H PRN 11/26/16 [History] ALPRAZolam [Xanax] 0.25 mg PO BID PRN 05/01/18 [History] Calcium Acetate [PhosLo] 1,334 mg PO TID 05/01/18 [History] Carvedilol 50 mg PO BID-W/MEALS #120 tablet 05/04/18 [Rx] Darbepoetin Aamir [Aranesp] 40 mcg SQ Q7D syringe 05/04/18 [Rx] Follow up Appointment(s)/Referral(s): Lolis Kirby MD [STAFF PHYSICIAN] - 1 Week Mary Baez MD [Primary Care Provider] - 05/10/18 10:30 am (Wednesday) Ambulatory/Diagnostic Orders: Complete Blood Count w/diff [LAB.AMB] Time Frame: 3 Days, Location: None Selected Activity/Diet/Wound Care/Special Instructions: Lasix as per nephrology. MWF dialysis pending nephrology clearance and final DC recommendations F/U with [facility] heart failure clinic/ Kidney Transplant Team as per Nephrology Diet: Renal.
[2018-05-04 14:43] VITALS: RESP 18
[2018-05-04 18:00] VITALS: BP 139/83; PULSE 78; TEMP 97.9
--- NOTE | 2018-05-04 20:03 | PN ---
PROGRESS NOTE Patient is seen for followup for end-stage renal disease. She is feeling much better. Palpitations have improved. Patient denies any significant complaints. On examination, blood pressure was 138/86, heart rate 82 per minute. She is afebrile. EXAMINATION OF THE HEART: S1, S2. EXAMINATION OF LUNGS: Bilateral breath sounds are heard. ABDOMEN: Soft, non-tender. Examination of lower extremities shows no evidence of edema. Labs show potassium 5.3, sodium 134, hemoglobin 9.1 g/dL. ASSESSMENT: 1. End-stage renal disease, on hemodialysis on a Wednesday, Wednesday, Wednesday schedule. Patient will be dialyzed today. 2. Volume overload. Patient has received 3 consecutive treatments of hemodialysis with total UF of about 6 to 7 L over the last 3 days. 3. Volume overload, currently improved. 4. Congestive heart failure, acute on top of chronic, systolic. 5. Cardiomyopathy, ejection fraction 20% to 25%. 6. Hypertension, partly volume-sensitive, currently improved. PLAN: Patient can be discharged. She should continue with the Aldactone. She is advised that if her blood pressure is controlled, she may not need the Procardia. Otherwise she will have to resume the Procardia as well. She should continue with the Coreg for now. Compliance with fluid restriction and maintenance of adequate volume status was discussed with the patient. MMODL / IJN: [id number] /
== END 2018-05-04 18:05 | disposition home or self-care (01) | DRG 291 ==
LOC: EC 18:38 → 6SEL 22:42
PROVIDERS: ADMIT Hospitalist; ATTEND Hospitalist
PROC: 5A1D70Z Performance of Urinary Filtration, Intermittent, Less than 6 Hours Per Day (ICD-10-PCS; principal; 2018-05-02)
DX: I13.2 Hypertensive heart and chronic kidney disease with heart failure and with stage 5 chronic kidney disease, or end stage renal disease (principal); I50.23 Acute on chronic systolic (congestive) heart failure; N18.6 End stage renal disease; Q60.0 Renal agenesis, unilateral; T86.12 Kidney transplant failure; I31.9 Disease of pericardium, unspecified; D63.1 Anemia in chronic kidney disease; E55.9 Vitamin D deficiency, unspecified; E86.9 Volume depletion, unspecified; E87.5 Hyperkalemia; F17.200 Nicotine dependence, unspecified, uncomplicated; F32.9 Major depressive disorder, single episode, unspecified; F41.9 Anxiety disorder, unspecified; G89.29 Other chronic pain; I08.1 Rheumatic disorders of both mitral and tricuspid valves; I27.20 Pulmonary hypertension, unspecified; I42.9 Cardiomyopathy, unspecified; J45.909 Unspecified asthma, uncomplicated; M89.9 Disorder of bone, unspecified; Z79.52 Long term (current) use of systemic steroids; Z99.2 Dependence on renal dialysis; Z79.899 Other long term (current) drug therapy; M54.9 Dorsalgia, unspecified; I20.0 Unstable angina
CPT/HCPCS: 36415; 71046; 80048; 80053; 83735; 83880; 84100; 84484; 85025; 85610; 85730; 86706; 87324; 87340; 90935; 93005; 93306; 94640; 94760; 96360; 96361; 99285

== ENCOUNTER 2018-05-28 00:32 | Inpatient (IN) | payer BC, OTHER ==
[2018-05-28] MEDS ORDERED: NITROGLYCERIN OINT 1 INCH/GM PACKET TOPICAL STA (01:24)
[2018-05-28] MEDS ORDERED: MORPHINE SULFATE 4 MG/ML SYRINGE IV STA ×2 (01:24→04:25)
[2018-05-28] MEDS ORDERED: CARVEDILOL 12.5 MG TAB PO STA (01:25)
[2018-05-28 01:36] LABS: Anisocytosis Moderate; Basophils # (A) 0.1 k/uL (0-0.2); Basophils % (A) 1 %; Eosinophils # (A) 0.4 k/uL (0-0.7); Eosinophils % (A) 7 %; HCT 33.5 % (34.0-46.0); HGB 9.8 gm/dL (11.4-16.0); Hypochromasia Marked; Lymphocytes # (A) 1.6 k/uL (1.0-4.8); Lymphocytes % (A) 28 %; MCH 26.6 pg (25.0-35.0); MCHC 29.4 g/dL (31.0-37.0); MCV 90.4 fL (80.0-100.0); Macrocytosis Slight; Mean Platelet Volume 7.6; Monocytes # (A) 0.2 k/uL (0-1.0); Monocytes % (A) 3 %; Neutrophils # (A) 3.3 k/uL (1.3-7.7); Neutrophils % (A) 59 %; Platelet Count 218 k/uL (150-450); RBC 3.71 m/uL (3.80-5.40); RDW 21.4 % (11.5-15.5); WBC 5.6 k/uL (3.8-10.6)
[2018-05-28 01:47] LABS: Albumin 3.7 g/dL (3.5-5.0); Potassium 4.7 mmol/L (3.5-5.1); Total Bilirubin 1.6 mg/dL (0.2-1.3); Total Protein 7.4 g/dL (6.3-8.2)
[2018-05-28 01:48] LABS: INR 1.5 (<1.2); Partial Thromboplastin Time 24.1 sec (22.0-30.0); Prothrombin Time 13.7 sec (9.0-12.0)
--- NOTE | 2018-05-28 01:58 | XR ---
EXAMINATION TYPE: XR chest 1V portable DATE OF EXAM: 05/28/2018 COMPARISON: 05/01/2018 HISTORY: Chest pain TECHNIQUE: Single frontal view of the chest is obtained. FINDINGS: Heart is enlarged. There is some pulmonary vascular congestion. There is slight blunting o f the costophrenic angles. There are chest leads. IMPRESSION: Mild heart failure and small pleural effusions. Pleural fluid is new or increased compar ed to last exam. Pulmonary congestion increased compared to old exam..
[2018-05-28 02:05] LABS: Creatine Kinase MB 0.6 ng/mL (0.0-2.4)
[2018-05-28 02:18] LABS: Troponin I 0.057 ng/mL (0.000-0.034)
[2018-05-28] MEDS ORDERED: cloNIDine HCL 0.1 MG TAB PO STA (02:18)
[2018-05-28] MEDS ORDERED: FUROSEMIDE 10 MG/ML 4 ML VIAL IV STA (02:51)
[2018-05-28] MEDS ORDERED: ONDANSETRON 4 MG/2 ML VIAL IVP STA (02:57)
[2018-05-28] MEDS ORDERED: hydrALAZINE HCL 20 MG/ML 1 ML VIAL IVP STA (04:24)
[2018-05-28] MEDS ORDERED: ONDANSETRON 4 MG TAB PO PRN (04:42)
[2018-05-28] MEDS ORDERED: ALBUTEROL NEBULIZED 2.5 MG/3 ML INHALATION PRN (04:42)
[2018-05-28] MEDS ORDERED: DARBEPOETIN ALFA 40 MCG/0.4 ML SYRINGE SQ SCH (04:45)
--- NOTE | 2018-05-28 06:00 | ED ---
Chest Pain HPI - General Chief Complaint: Chest Pain Stated Complaint: Chest Pain, Anxiety Time Seen by Provider: 05/28/18 00:42 Source: patient Mode of arrival: ambulatory Limitations: no limitations - History of Present Illness Initial Comments: This patient is 27-year-old woman with history of end-stage renal disease who presents to have evaluation for chest pain and dyspnea. Patient states that it is worsening tonight. The pain and dyspnea worse if she lies supine. She does note that she had completed her dialysis session yesterday and they found that she was still 2 kg above her dry weight. She states that she was told to return to clinic on Wednesday and they were going to give her an extra dialysis session this week. The patient states that she doesn't feel that she can manage at home tonight. Also when she checked her blood pressure was quite elevated. MD Complaint: chest pain -: hour(s) Onset: during rest Pain Location: substernal Pain Radiation: none Severity: moderate Quality: heaviness Consistency: constant Improves With: nothing Worsens With: supine Anginal Symptoms: dyspnea - Related Data Home Medications Medication Instructions Recorded Confirmed Albuterol Sulfate [Proair Hfa] 2 puff INHALATION RT-Q6H PRN 01/22/16 05/28/18 Ondansetron [Zofran] 4 mg PO Q8H PRN 11/26/16 05/28/18 Calcium Acetate [PhosLo] 1,334 mg PO TID 05/01/18 05/28/18 ALPRAZolam [Xanax] 0.25 mg PO HS 05/28/18 05/28/18 Acetaminophen Tab [Tylenol] 1,000 mg PO DAILY 05/28/18 05/28/18 Albuterol Nebulized [Ventolin 3 ml INHALATION RT-Q6H 05/28/18 05/28/18 Nebulized] Budesonide/Formoterol Fumarate 2 puff INHALATION RT-Q12H 05/28/18 05/28/18 [Symbicort 80-4.5 Mcg Inhaler] Carvedilol [Coreg] 25 mg PO BID 05/28/18 05/28/18 Cinacalcet [Sensipar] 30 mg PO MOWEFR 05/28/18 05/28/18 Fluticasone/Salmeterol [Advair 1 puff INHALATION RT-BID 05/28/18 05/28/18 250-50 Diskus] Lidocaine-Prilocaine Cream [Emla 1 applic TOPICAL MOWEFR 05/28/18 05/28/18 Cream 2.5%/2.5%] NIFEdipine [NIFEdipine ER] 90 mg PO DAILY 05/28/18 05/28/18 Pantoprazole [Protonix] 40 mg PO DAILY 05/28/18 05/28/18 Sodium Bicarbonate Tab 650 mg OP BID 05/28/18 05/28/18 Spironolactone [Aldactone] 25 mg PO DAILY 05/28/18 05/28/18 predniSONE 10 mg PO DAILY 05/28/18 05/28/18 Allergies Allergy/AdvReac Type Severity Reaction Status Date / Time hydralazine AdvReac Rapid Verified 05/28/18 11:54 Heart Rate Review of Systems ROS Statement: Those systems with pertinent positive or pertinent negative responses have been documented in the HPI. ROS Other: All systems not noted in ROS Statement are negative. Constitutional: Denies: fever, chills Respiratory: Reports: dyspnea. Denies: cough Cardiovascular: Reports: chest pain, palpitations, orthopnea. Denies: syncope Gastrointestinal: Reports: nausea. Denies: abdominal pain, vomiting, diarrhea Genitourinary: Denies: dysuria Musculoskeletal: Denies: back pain Skin: Denies: rash Neurological: Denies: headache, weakness, numbness EKG Findings - EKG Results: EKG: interpreted by ERMD, sinus rhythm, normal axis EKG shows: tachycardia (Rate 107 bpm) - Blocks, [place], Hypertrophy, ST Abn: Chamber hypertrophy or enlargement: left ventricular hypertrophy or enlargement (LVE) Repolarization changes or abnormalities: ST or T wave suggestive of ischemia (T inversions in V6) Past Medical History Past Medical History: Asthma, Heart Failure, Hypertension, Renal Disease Additional Past Medical History / Comment(s): abdominal pain, hx kidney transplant 2010, acute on chronic renal failure. Other HX: polycystic renal failure with kidney transplant, CKD, vitimen D deficiency, anemia of chronic disease, ovarian cyst, chronic back pain, cardiomegaly History of Any Multi-Drug Resistant Organisms: None Reported Past Surgical History: Hernia Repair Additional Past Surgical History / Comment(s): 11/15/09 Kidney transplant R pelvis, dialysis catheter in and out, supra pubic hernia repair, transvaginal mesh, wisdom teeth extraction with anesthesia. Past Anesthesia/Blood Transfusion Reactions: No Reported Reaction Past Psychological History: Anxiety, Depression Smoking Status: Current some day smoker Past Alcohol Use History: None Reported Past Drug Use History: None Reported - Past Family History Father Family Medical History: No Reported History Additional Family Medical History / Comment(s): Father is healthy and is 59 yrs old. Mother Family Medical History: No Reported History Additional Family Medical History / Comment(s): Mother is healthy and is 57 yrs old. General Exam Limitations: no limitations General appearance: alert, in distress (Mild respiratory distress) Head exam: Present: atraumatic, normocephalic Eye exam: Present: normal appearance ENT exam: Present: normal oropharynx Neck exam: Present: normal inspection Respiratory exam: Present: normal lung sounds bilaterally, respiratory distress (Mild). Absent: wheezes, rales, rhonchi, stridor Cardiovascular Exam: Present: normal rhythm, tachycardia, gallop. Absent: diastolic murmur, rubs GI/Abdominal exam: Present: soft. Absent: tenderness, guarding, rebound, mass Extremities exam: Present: normal inspection, normal capillary refill. Absent: pedal edema, calf tenderness Back exam: Present: normal inspection. Absent: CVA tenderness (R), CVA tenderness (L) Neurological exam: Present: alert Skin exam: Present: warm, dry, intact, normal color. Absent: rash Course Vital Signs 05/28/18 05/28/18 05/28/18 00:35 01:30 02:30 Temperature 97.9 F Pulse Rate 110 H 109 H 112 H Pulse Rate [ Pulse Oximetery ] Respiratory 18 19 17 Rate Blood Pressure 175/124 179/140 180/135 Blood Pressure [Right Arm] O2 Sat by Pulse 93 L 99 99 Oximetry 05/28/18 05/28/18 05/28/18 03:00 03:30 04:00 Temperature Pulse Rate 106 H 104 H 101 H Pulse Rate [ Pulse Oximetery ] Respiratory 23 20 22 Rate Blood Pressure 177/132 184/135 162/126 Blood Pressure [Right Arm] O2 Sat by Pulse 97 96 96 Oximetry 05/28/18 05/28/18 05/28/18 04:30 05:00 05:30 Temperature Pulse Rate 94 89 88 Pulse Rate [ Pulse Oximetery ] Respiratory 22 26 H 24 Rate Blood Pressure 148/111 148/109 136/95 Blood Pressure [Right Arm] O2 Sat by Pulse 99 98 99 Oximetry 05/28/18 05/28/18 05/28/18 05:37 06:30 07:00 Temperature Pulse Rate 89 85 84 Pulse Rate [ Pulse Oximetery ] Respiratory 24 26 H 29 H Rate Blood Pressure 130/88 130/94 132/92 Blood Pressure [Right Arm] O2 Sat by Pulse 97 97 96 Oximetry 05/28/18 05/28/18 05/28/18 08:00 12:00 16:00 Temperature 97.1 F L 97.9 F Pulse Rate Pulse Rate [ 82 85 86 Pulse Oximetery ] Respiratory 18 18 20 Rate Blood Pressure Blood Pressure 150/109 136/106 149/119 [Right Arm] O2 Sat by Pulse 100 99 99 Oximetry - Reevaluation(s) Reevaluation #1: 05/28/18 05:59 Case discussed with the the the teacher resource, Dr. Mina, to arrange dialysis here. Disposition Clinical Impression: Chest pain, Congestive heart failure, Hypertension, Elevated troponin I level Disposition: ADMITTED IP TO THIS HOSP Condition: Poor
[2018-05-28] MEDS: ALPRAZolam 0.25 MG TAB PO PRN ×2 (08:14→22:43)
[2018-05-28 08:30] VITALS: BMI 21.3
[2018-05-28] MEDS: CARVEDILOL 12.5 MG TAB PO SCH ×2 (08:33→21:26)
[2018-05-28] MEDS ORDERED: predniSONE 5 MG TAB PO SCH (09:00)
[2018-05-28] MEDS ORDERED: CALCIUM ACETATE 667 MG CAP PO SCH (09:00)
[2018-05-28] MEDS ORDERED: predniSONE 10 MG TAB PO SCH (09:30)
[2018-05-28] MEDS: MORPHINE SULFATE 2 MG/ML SYRINGE IVP PRN ×2 (10:09→21:26)
--- NOTE | 2018-05-28 13:24 | P.NPCON ---
History of Present Illness - Reason for Consult Consult date: 05/28/18 (Nephrology) end stage renal disease - Chief Complaint Shortness of breath - History of Present Illness ESRD patient of Dr. Kirby for a left upper arm AV graft coming to the hospital with worsening shortness of breath. She is on hemodialysis since last year, MWF at [place] secondary to failed renal transplant. She had kidney transplant in 1999 at [facility] because of congenital solitary kidney and renal failure at the age of 17. She also mentions she was supposed to see him cardiology team at [facility] on Wednesday. She was supposed to get extra treatment of dialysis today but ended up in the hospital. No nausea vomiting diarrhea. On admission her troponins were elevated but denies any active chest pain now. Review of Systems Constitutional: Reports as per HPI Past Medical History Past Medical History: Asthma, Heart Failure, Hypertension, Renal Disease Additional Past Medical History / Comment(s): abdominal pain, hx kidney transplant 2009, acute on chronic renal failure. Other HX: polycystic renal failure with kidney transplant, CKD, vitimen D deficiency, anemia of chronic disease, ovarian cyst, chronic back pain, cardiomegaly History of Any Multi-Drug Resistant Organisms: None Reported Past Surgical History: Hernia Repair Additional Past Surgical History / Comment(s): 11/15/09 Kidney transplant R pelvis, dialysis catheter in and out, supra pubic hernia repair, transvaginal mesh, wisdom teeth extraction with anesthesia. Past Anesthesia/Blood Transfusion Reactions: No Reported Reaction Past Psychological History: Anxiety, Depression Additional Psychological History / Comment(s): Pt resides with family. She is independent. She drives. She states she has anxiety and depression but no suicidal thoughts/ idealations or plans. She had one suicide attempt with overdose in 2012. Smoking Status: Former smoker Past Alcohol Use History: None Reported Additional Past Alcohol Use History / Comment(s): PT STILL OCCASIONALY SMOKES Past Drug Use History: None Reported - Past Family History Father Family Medical History: No Reported History Additional Family Medical History / Comment(s): Father is healthy and is 59 yrs old. Mother Family Medical History: No Reported History Additional Family Medical History / Comment(s): Mother is healthy and is 57 yrs old. Medications and Allergies Home Medications Medication Instructions Recorded Confirmed Type Albuterol Sulfate [Proair Hfa] 2 puff INHALATION RT-Q6H PRN 01/22/16 05/28/18 History Ondansetron [Zofran] 4 mg PO Q8H PRN 11/26/16 05/28/18 History Calcium Acetate [PhosLo] 1,334 mg PO TID 05/01/18 05/28/18 History ALPRAZolam [Xanax] 0.25 mg PO HS 05/28/18 05/28/18 History Acetaminophen Tab [Tylenol] 1,000 mg PO DAILY 05/28/18 05/28/18 History Albuterol Nebulized [Ventolin 3 ml INHALATION RT-Q6H 05/28/18 05/28/18 History Nebulized] Budesonide/Formoterol Fumarate 2 puff INHALATION RT-Q12H 05/28/18 05/28/18 History [Symbicort 80-4.5 Mcg Inhaler] Carvedilol [Coreg] 25 mg PO BID 05/28/18 05/28/18 History Cinacalcet [Sensipar] 30 mg PO MOWEFR 05/28/18 05/28/18 History Fluticasone/Salmeterol [Advair 1 puff INHALATION RT-BID 05/28/18 05/28/18 History 250-50 Diskus] Lidocaine-Prilocaine Cream [Emla 1 applic TOPICAL MOWEFR 05/28/18 05/28/18 History Cream 2.5%/2.5%] NIFEdipine [NIFEdipine ER] 90 mg PO DAILY 05/28/18 05/28/18 History Pantoprazole [Protonix] 40 mg PO DAILY 05/28/18 05/28/18 History Sodium Bicarbonate Tab 650 mg OP BID 05/28/18 05/28/18 History Spironolactone [Aldactone] 25 mg PO DAILY 05/28/18 05/28/18 History predniSONE 10 mg PO DAILY 05/28/18 05/28/18 History Allergies Allergy/AdvReac Type Severity Reaction Status Date / Time hydralazine AdvReac Rapid Verified 05/28/18 11:54 Heart Rate Physical Exam Vitals: Vital Signs Temp Pulse Pulse Resp BP BP Pulse Ox 05/28/18 12:00 97.9 F 85 18 136/106 99 05/28/18 08:00 97.1 F L 82 18 150/109 100 05/28/18 07:00 84 29 H 132/92 96 05/28/18 06:30 85 26 H 130/94 97 05/28/18 05:37 89 24 130/88 97 05/28/18 05:30 88 24 136/95 99 05/28/18 05:00 89 26 H 148/109 98 05/28/18 04:30 94 22 148/111 99 05/28/18 04:00 101 H 22 162/126 96 05/28/18 03:30 104 H 20 184/135 96 05/28/18 03:00 106 H 23 177/132 97 05/28/18 02:30 112 H 17 180/135 99 05/28/18 01:30 109 H 19 179/140 99 05/28/18 00:35 97.9 F 110 H 18 175/124 93 L Intake and Output 05/27/18 05/28/18 05/28/18 22:59 06:59 14:59 Other: Weight 53 kg 53 kg Lying in bed no acute distress S1-S2 heard Lungs clear Left upper arm AVG Edema Results - Lab Results Most recent lab results Calcium 9.0 mg/dL (8.4-10.2) 05/28/18 00:55 Magnesium 2.0 mg/dL (1.6-2.3) 05/28/18 00:55 05/28/18 00:55 05/28/18 00:55 Assessment and Plan Assessment: 1 shortness of breath secondary to volume overload 2 ESRD on hemodialysis MWF well left upper arm AVG at [place] #3 hypertension with ESRD #4 anemia with ESRD #5 CKD with metabolic bone disease #6 elevated troponins Plan: #1 plan hemodialysis today with 3 L of ultrafiltration. #2 CK D medications #3 cardiology evaluation for elevated troponins
[2018-05-28] MEDS: CALCIUM ACETATE 667 MG CAP PO SCH ×2 (13:35→18:17)
[2018-05-28] MEDS ORDERED: HYDROmorphone 1 MG/ML 1 ML SYRINGE IVP STA (16:13)
--- NOTE | 2018-05-28 21:40 | P.HPIM ---
History of Present Illness H&P Date: 05/28/18 Chief Complaint: Shortness of breath and chest pain Patient is a pleasant 27 years old female with past medical history of failed kidney transplant, she is currently on hemodialysis. Patient was born with one polycystic kidney. She also has history of CHF, hypertension, asthma, anemia of chronic disease, vitamin D deficiency, ovarian cyst, chronic back pain. Who presents to ER with worsening shortness of breath. Shortness of breath gets worse when she lies flat. Patient has hemodialysis Wednesday and Wednesday. She didn't have last hemodialysis on Wednesday which was incomplete session. Patient was still 2 kg about her dry weight when she was checked at hemodialysis center.She states that she was told to return to clinic on Wednesday and they were going to give her an extra dialysis session this week. The patient states that she doesn't feel that she can manage at home tonight. Also when she checked her blood pressure was quite elevated. Patient was also complaining of chest tightness. Slightly elevated troponin level which is actually lower than previous admission. Cardiology has seen the patient during her earlier this month. 2-D echocardiogram showed an ejection fraction of 20-25% with severe global hypokinesis. Mild to moderate mitral regurg, severe tricuspid regurg, severe pulmonary hypertension, moderate pulmonic regurg. Cardiology recommends follow-up with cardiology at [facility] for cardiac transplant. Patient did improve with pain medications. Currently denied any active chest pain now. No nausea vomiting or diarrhea or abdominal pain. Nephrology was consulted. Chest x-ray showed mild heart failure and small pleural effusions. Pleural fluid is new or increased compared to last exam. EKG sinus tachycardia Troponin 0.057 Review of Systems Constitutional: Patient denies any fever or chills . No generalized weakness or weight loss. Abdomen: Patient denied nausea vomiting and diarrhea and abdominal pain. Cardiovascular: Does have chest pain or shortness of breath. No leg swelling. Respiratory: patient denied any cough is from production. No shortness of breath Neurologic: Patient denied any numbness or tingling headache. Musculoskeletal: Patient denies any complaints of joint swelling or deformity. Skin: Negative Psychiatric: Negative Endocrine: No heat or cold intolerance. No recent weight gain. Genitourinary: No dysuria or hematuria. All other 14 point ROS negative except the above Past Medical History Past Medical History: Asthma, Heart Failure, Hypertension, Renal Disease Additional Past Medical History / Comment(s): abdominal pain, hx kidney transplant 2009, acute on chronic renal failure. Other HX: polycystic renal failure with kidney transplant, CKD, vitimen D deficiency, anemia of chronic disease, ovarian cyst, chronic back pain, cardiomegaly History of Any Multi-Drug Resistant Organisms: None Reported Past Surgical History: Hernia Repair Additional Past Surgical History / Comment(s): 11/15/09 Kidney transplant R pelvis, dialysis catheter in and out, supra pubic hernia repair, transvaginal mesh, wisdom teeth extraction with anesthesia. Past Anesthesia/Blood Transfusion Reactions: No Reported Reaction Past Psychological History: Anxiety, Depression Additional Psychological History / Comment(s): Pt resides with family. She is independent. She drives. She states she has anxiety and depression but no suicidal thoughts/ idealations or plans. She had one suicide attempt with overdose in 2012. Smoking Status: Former smoker Past Alcohol Use History: None Reported Additional Past Alcohol Use History / Comment(s): PT STILL OCCASIONALY SMOKES Past Drug Use History: None Reported - Past Family History Father Family Medical History: No Reported History Additional Family Medical History / Comment(s): Father is healthy and is 59 yrs old. Mother Family Medical History: No Reported History Additional Family Medical History / Comment(s): Mother is healthy and is 57 yrs old. Medications and Allergies Home Medications Medication Instructions Recorded Confirmed Type Albuterol Sulfate [Proair Hfa] 2 puff INHALATION RT-Q6H PRN 01/22/16 05/28/18 History Ondansetron [Zofran] 4 mg PO Q8H PRN 11/26/16 05/28/18 History Calcium Acetate [PhosLo] 1,334 mg PO TID 05/01/18 05/28/18 History ALPRAZolam [Xanax] 0.25 mg PO HS 05/28/18 05/28/18 History Acetaminophen Tab [Tylenol] 1,000 mg PO DAILY 05/28/18 05/28/18 History Albuterol Nebulized [Ventolin 3 ml INHALATION RT-Q6H 05/28/18 05/28/18 History Nebulized] Budesonide/Formoterol Fumarate 2 puff INHALATION RT-Q12H 05/28/18 05/28/18 History [Symbicort 80-4.5 Mcg Inhaler] Carvedilol [Coreg] 25 mg PO BID 05/28/18 05/28/18 History Cinacalcet [Sensipar] 30 mg PO MOWEFR 05/28/18 05/28/18 History Fluticasone/Salmeterol [Advair 1 puff INHALATION RT-BID 05/28/18 05/28/18 History 250-50 Diskus] Lidocaine-Prilocaine Cream [Emla 1 applic TOPICAL MOWEFR 05/28/18 05/28/18 History Cream 2.5%/2.5%] NIFEdipine [NIFEdipine ER] 90 mg PO DAILY 05/28/18 05/28/18 History Pantoprazole [Protonix] 40 mg PO DAILY 05/28/18 05/28/18 History Sodium Bicarbonate Tab 650 mg OP BID 05/28/18 05/28/18 History Spironolactone [Aldactone] 25 mg PO DAILY 05/28/18 05/28/18 History predniSONE 10 mg PO DAILY 05/28/18 05/28/18 History Allergies Allergy/AdvReac Type Severity Reaction Status Date / Time hydralazine AdvReac Rapid Verified 05/28/18 11:54 Heart Rate Physical Exam Vitals: Vital Signs Temp Pulse Pulse Resp BP BP Pulse Ox 05/28/18 08:00 97.1 F L 82 18 150/109 100 05/28/18 07:00 84 29 H 132/92 96 05/28/18 06:30 85 26 H 130/94 97 05/28/18 05:37 89 24 130/88 97 05/28/18 05:30 88 24 136/95 99 05/28/18 05:00 89 26 H 148/109 98 05/28/18 04:30 94 22 148/111 99 05/28/18 04:00 101 H 22 162/126 96 05/28/18 03:30 104 H 20 184/135 96 05/28/18 03:00 106 H 23 177/132 97 05/28/18 02:30 112 H 17 180/135 99 05/28/18 01:30 109 H 19 179/140 99 05/28/18 00:35 97.9 F 110 H 18 175/124 93 L Intake and Output 05/27/18 05/28/18 05/28/18 22:59 06:59 14:59 Other: Weight 53 kg 53 kg PHYSICAL EXAMINATION: Patient is lying in the bed comfortably, no acute distress, awake alert and oriented.. HEENT: Normocephalic. Neck is supple. Pupils reactive. Nostrils clear. Oral cavity is moist. Ears reveal no drainage. Neck reveals no JVD, carotid bruits, or thyromegaly. CHEST EXAMINATION: Trachea is central. Symmetrical expansion. Basilar crackles. No wheezing. Otherwise Lung lópez clear to auscultation and percussion. CARDIAC: Normal S1, S2 with no gallops. No murmurs ABDOMEN: Soft. Bowel sounds normal. No organomegaly. No abdominal bruits. Extremities: reveal no edema. No clubbing or cyanosis Neurologically awake, alert, oriented x3 with well-coordinated movements. No focal deficits noted Skin: No rash or skin lesions. Psychiatric: Coperative. Nonsuicidal Musculoskeletal: No joint swelling or deformity. Normal range of motion. Results CBC & Chem 7: 05/28/18 00:55 05/28/18 00:55 Labs: Abnormal Lab Results - Last 24 Hours (Table) 05/28/18 05/28/18 05/28/18 Range/Units 00:55 00:55 00:55 RBC 3.71 L (3.80-5.40) m/uL Hgb 9.8 L (11.4-16.0) gm/dL Hct 33.5 L (34.0-46.0) % MCHC 29.4 L (31.0-37.0) g/dL RDW 21.4 H (11.5-15.5) % PT (9.0-12.0) sec INR (<1.2) Sodium 135 L (137-145) mmol/L Chloride 94 L (98-107) mmol/L BUN 40 H (7-17) mg/dL Creatinine 5.56 H (0.52-1.04) mg/dL Total Bilirubin 1.6 H (0.2-1.3) mg/dL AST 71 H (14-36) U/L ALT 65 H (9-52) U/L Troponin I 0.057 H* (0.000-0.034) ng/mL 05/28/18 Range/Units 00:55 RBC (3.80-5.40) m/uL Hgb (11.4-16.0) gm/dL Hct (34.0-46.0) % MCHC (31.0-37.0) g/dL RDW (11.5-15.5) % PT 13.7 H (9.0-12.0) sec INR 1.5 H (<1.2) Sodium (137-145) mmol/L Chloride (98-107) mmol/L BUN (7-17) mg/dL Creatinine (0.52-1.04) mg/dL Total Bilirubin (0.2-1.3) mg/dL AST (14-36) U/L ALT (9-52) U/L Troponin I (0.000-0.034) ng/mL Thrombosis Risk Factor Assmnt - DVT/VTE Prophylaxis DVT/VTE Prophylaxis: Pharmacologic Prophylaxis ordered Assessment and Plan Assessment: Shortness of breath secondary to fluid overload and acute CHF Acute on chronic CHF with systolic dysfunction ejection fraction 20-25% Uncontrolled hypertension Valvular heart disease with [id number] mitral regurgitation and severe tricuspid regurgitation Severe pulmonary hypertension Elevated troponin level likely due to demand ischemia. Atypical chest pain. Possible component of uremic pericarditis. Improved now. ESRD on hemodialysis MWF. left upper arm AVG Anemia of chronic disease Vitamin D deficiency History of ovarian cysts Chronic back pain Asthma stable DVT prophylaxis Plan: Patient will be continued on telemetry monitoring. Serial EKGs and troponins. Nephrology has seen the patient and is planning for hemodialysis today. Continue with pain medications and home medications. Time with Patient: Greater than 30
[2018-05-28] MEDS: HYDROmorphone 1 MG/ML 1 ML SYRINGE IVP PRN (23:55)
[2018-05-29] MEDS ORDERED: ALBUTEROL NEBULIZED 2.5 MG/3 ML INHALATION SCH (02:00)
[2018-05-29] MEDS: HYDROmorphone 1 MG/ML 1 ML SYRINGE IVP PRN (04:00)
[2018-05-29 06:31] LABS: Anisocytosis Moderate; Basophils % (A) 1 %; Eosinophils # (A) 0.1 k/uL (0-0.7); Eosinophils % (A) 2 %; HCT 32.7 % (34.0-46.0); HGB 9.5 gm/dL (11.4-16.0); Hypochromasia Marked; Lymphocytes # (A) 1.1 k/uL (1.0-4.8); Lymphocytes % (A) 24 %; MCH 26.7 pg (25.0-35.0); MCHC 29.1 g/dL (31.0-37.0); MCV 91.8 fL (80.0-100.0); Macrocytosis Slight; Mean Platelet Volume 7.7; Monocytes # (A) 0.3 k/uL (0-1.0); Monocytes % (A) 6 %; Neutrophils # (A) 3.1 k/uL (1.3-7.7); Neutrophils % (A) 65 %; Platelet Count 235 k/uL (150-450); RBC 3.57 m/uL (3.80-5.40); RDW 21.1 % (11.5-15.5); WBC 4.8 k/uL (3.8-10.6)
[2018-05-29] MEDS: CARVEDILOL 12.5 MG TAB PO SCH (06:35)
[2018-05-29] MEDS: CALCIUM ACETATE 667 MG CAP PO SCH ×2 (06:35→12:06)
[2018-05-29 06:43] LABS: Calcium 9.2 mg/dL (8.4-10.2); Potassium 4.6 mmol/L (3.5-5.1)
[2018-05-29] MEDS ORDERED: PANTOPRAZOLE 40 MG TABLET PO SCH (07:30)
[2018-05-29] MEDS ORDERED: SYMBICORT 80-4.5 MCG INHALER INHALATION SCH (08:00)
[2018-05-29 08:10] VITALS: RESP 17; TEMP 98.3
[2018-05-29] MEDS: ALPRAZolam 0.25 MG TAB PO PRN (08:58)
[2018-05-29] MEDS ORDERED: SPIRONOLACTONE 25 MG TAB PO SCH (09:00)
[2018-05-29] MEDS ORDERED: predniSONE 10 MG TAB PO SCH (09:00)
[2018-05-29] MEDS ORDERED: SODIUM BICARBONATE TAB 650 MG TAB PO SCH (09:00)
[2018-05-29] MEDS ORDERED: NIFEdipine XL 90 MG TAB.ER.24 PO SCH (09:00)
--- NOTE | 2018-05-29 11:14 | P.PN ---
Subjective Progress Note Date: 05/29/18 Principal diagnosis: ESRD on hemodialysis Admitted with chest pains and shortness of breath. Had dialysis on Wednesday but still having symptoms so came in yesterday and had full return of treatment yesterday with 3 L of ultrafiltration. Still continues to have episodic chest pains awaiting for cardiology evaluation Objective - Vital Signs Vital signs: Vital Signs Temp 98.3 F 05/29/18 08:00 Pulse 81 05/29/18 08:00 Resp 17 05/29/18 08:00 BP 150/97 05/29/18 08:00 Pulse Ox 95 05/29/18 09:02 Intake & Output 05/28/18 05/29/18 05/29/18 18:59 06:59 18:59 Intake Total 300 240 Balance 300 240 Weight 53 kg 51.5 kg Intake: Oral 300 240 Other: # Voids 1 0 - Exam Lying in bed no acute distress S1-S2 heard Lungs clear Left upper arm AVF - Labs CBC & Chem 7: 05/29/18 05:36 05/29/18 05:36 Labs: Abnormal Lab Results - Last 24 Hours (Table) 05/29/18 05/29/18 Range/Units 05:36 05:36 RBC 3.57 L (3.80-5.40) m/uL Hgb 9.5 L (11.4-16.0) gm/dL Hct 32.7 L (34.0-46.0) % MCHC 29.1 L (31.0-37.0) g/dL RDW 21.1 H (11.5-15.5) % BUN 28 H (7-17) mg/dL Creatinine 5.12 H (0.52-1.04) mg/dL Assessment and Plan Assessment: 1 shortness of breath secondary to volume overload 2 ESRD on hemodialysis MWF well left upper arm AVG at [place] #3 hypertension with ESRD #4 anemia with ESRD #5 CKD with metabolic bone disease #6 elevated troponins Plan: #1 hemodialysis with 3 L of ultrafiltration yesterday. #2 CK D medications #3 stable from nephrology point of view for discharge to be followed up in outpatient dialysis unit
[2018-05-29 12:06] VITALS: BP 131/90; PULSE 77
--- NOTE | 2018-05-29 14:36 | P.CRDCN ---
History of Present Illness History of present illness: This is a pleasant 27-year-old -[place] female past medical history significant for end-stage renal disease status post failed transplant on hemodialysis, hypertension, severe pulmonary hypertension and cardiomyopathy. She presents to the hospital complaining of shortness of breath and chest discomfort. The pain in her chest is on both sides of her chest and is very sharp and heavy in nature. She states she is compliant with dialysis. When she arrived to the hospital she was found to be in fluid overload state and underwent an additional round of hemodialysis yesterday. She states she is feeling much better since that time. She denies any further symptoms of chest pain or shortness of breath. EKG reveals sinus mechanism with T-wave inversions noted in lateral leads. These abnormalities have been noted in the past. She was here earlier this month and seen in consultation for similar type symptoms. At that time she was recommended to follow-up at [facility] with a heart transplant team. She has an appointment scheduled for tomorrow. Echocardiogram obtained earlier this month revealed severely impaired left ventricular systolic function with ejection fraction 20-25%, severe global hypokinesia, severely dilated left atrium, moderate aortic regurgitation, gradient across the valve 9.95 mmHg, mild to moderate MR and severe TR, severe pulmonary hypertension with RVSP of 89.33 mmHg. Chest x-ray on arrival prior to dialysis shows pulmonary congestion increased with small bilateral pleural effusions. Laboratory data reviewed, hemoglobin 9.5, platelets 235, sodium 137 , potassium 4.6, creatinine 5.12, magnesium 2.0. Current cardiac medications include carvedilol 25 mg twice a day, nifedipine 90 mg daily and Aldactone 25 mg daily. At the time of my exam: CONSTITUTIONAL: Denies fever. Denies chills. EYES: Denies blurred vision. Denies vision changes. Denies eye pain. EARS, NOSE, MOUTH & THROAT: Denies headache. Denies sore throat. Denies ear pain. CARDIOVASCULAR: Denies chest pain. Denies shortness of breath. Denies orthopnea. Denies PND. Denies palpitations. RESPIRATORY: Denies cough. GASTROINTESTINAL: Denies abdominal pain. Denies diarrhea. Denies constipation. Denies nausea. Denies vomiting. MUSCULOSKELETAL: Denies myalgias. INTEGUMENTARY: Denies pruitis. Denies rash. NEUROLOGIC: Denies numbness. Denies tingling. Denies weakness. PSYCHIATRIC: Denies anxiety. Denies depression. ENDOCRINE: Denies fatigue. Denies weight change. Denies polydipsia. Denies polyurina. GENITOURINARY: Denies burning, hematuria or urgency with micturation. HEMATOLOGIC: Denies history of anemia. Denies bleeding. GENERAL: This is a 27-year-old -[place] female in no apparent distress at the time of my examination. HEENT: Head is atraumatic, normocephalic. Pupils are equal, round. Sclerae anicteric. Conjunctivae are clear. Mucous membranes of the mouth are moist. Neck is supple. There is no jugular venous distention. No carotid bruit is heard. LUNGS: Clear to auscultation no wheezes, rales or rhonchi. No chest wall tenderness is noted on palpation or with deep breathing. HEART: Regular rate and rhythm with systolic ejection murmur at the base and apex, no rubs or gallops. S1 and S2 heard. ABDOMEN: Soft, nontender. Bowel sounds are heard. No organomegaly noted. EXTREMITIES: No evidence of peripheral edema and no calf tenderness noted. VASCULAR: Radial and dorsalis pedis pulses palpated, no evidence of clubbing. NEUROLOGIC: Patient is awake, alert and oriented x3. ASSESSMENT Chest pain and shortness of breath on arrival, resolved after undergoing hemodialysis. End-stage renal disease on hemodialysis Severe pulmonary hypertension, RVSP 89 mmHg Severe nonischemic cardiomyopathy Chronic systolic heart failure, ejection fraction 20-25% Hypertension Mild troponin elevation is not indicative of an acute event secondary to chronic kidney disease PLAN Stable from a cardiac perspective. All symptoms have resolved after undergoing an additional round of hemodialysis. Recommend discharge to she can make it to her appointment at [facility] tomorrow regarding heart failure. Thank you kindly for this consultation. Nurse Practitioner note has been reviewed, I agree with a documented findings and plan of care. Patient was seen and examined. Past Medical History Past Medical History: Asthma, Heart Failure, Hypertension, Renal Disease Additional Past Medical History / Comment(s): abdominal pain, hx kidney transplant 2009, acute on chronic renal failure. Other HX: polycystic renal failure with kidney transplant, CKD, vitimen D deficiency, anemia of chronic disease, ovarian cyst, chronic back pain, cardiomegaly History of Any Multi-Drug Resistant Organisms: None Reported Past Surgical History: Hernia Repair Additional Past Surgical History / Comment(s): 11/15/09 Kidney transplant R pelvis, dialysis catheter in and out, supra pubic hernia repair, transvaginal mesh, wisdom teeth extraction with anesthesia. Past Anesthesia/Blood Transfusion Reactions: No Reported Reaction Past Psychological History: Anxiety, Depression Smoking Status: Current some day smoker Past Alcohol Use History: None Reported Past Drug Use History: None Reported - Past Family History Father Family Medical History: No Reported History Additional Family Medical History / Comment(s): Father is healthy and is 59 yrs old. Mother Family Medical History: No Reported History Additional Family Medical History / Comment(s): Mother is healthy and is 57 yrs old. Medications and Allergies Home Medications Medication Instructions Recorded Confirmed Type Albuterol Sulfate [Proair Hfa] 2 puff INHALATION RT-Q6H PRN 01/22/16 05/28/18 History Ondansetron [Zofran] 4 mg PO Q8H PRN 11/26/16 05/28/18 History Calcium Acetate [PhosLo] 1,334 mg PO TID 05/01/18 05/28/18 History ALPRAZolam [Xanax] 0.25 mg PO HS 05/28/18 05/28/18 History Acetaminophen Tab [Tylenol] 1,000 mg PO DAILY 05/28/18 05/28/18 History Albuterol Nebulized [Ventolin 3 ml INHALATION RT-Q6H 05/28/18 05/28/18 History Nebulized] Budesonide/Formoterol Fumarate 2 puff INHALATION RT-Q12H 05/28/18 05/28/18 History [Symbicort 80-4.5 Mcg Inhaler] Carvedilol [Coreg] 25 mg PO BID 05/28/18 05/28/18 History Cinacalcet [Sensipar] 30 mg PO MOWEFR 05/28/18 05/28/18 History Fluticasone/Salmeterol [Advair 1 puff INHALATION RT-BID 05/28/18 05/28/18 History 250-50 Diskus] NIFEdipine [NIFEdipine ER] 90 mg PO DAILY 05/28/18 05/28/18 History Pantoprazole [Protonix] 40 mg PO DAILY 05/28/18 05/28/18 History Sodium Bicarbonate Tab 650 mg OP BID 05/28/18 05/28/18 History Spironolactone [Aldactone] 25 mg PO DAILY 05/28/18 05/28/18 History predniSONE 10 mg PO DAILY 05/28/18 05/28/18 History Allergies Allergy/AdvReac Type Severity Reaction Status Date / Time hydralazine AdvReac Rapid Verified 05/28/18 11:54 Heart Rate Physical Exam Vitals: Vital Signs Temp Pulse Resp BP Pulse Ox 05/29/18 12:00 77 17 131/90 96 05/29/18 09:02 95 05/29/18 08:00 98.3 F 81 17 150/97 95 05/29/18 04:00 97.4 F L 87 20 150/97 98 05/29/18 03:42 20 05/29/18 00:00 88 20 05/28/18 23:59 98.5 F 88 20 148/98 94 L 05/28/18 20:00 98.3 F 91 20 167/107 97 05/28/18 19:23 98 05/28/18 16:00 86 20 149/119 99 Intake and Output 05/28/18 05/29/18 05/29/18 22:59 06:59 14:59 Intake Total 200 100 360 Balance 200 100 360 Intake: Oral 200 100 360 Other: # Voids 1 0 Weight 51.5 kg Results 05/29/18 05:36 05/29/18 05:36 Cardiac Enzymes 05/29/18 Range/Units 05:36 Troponin I 0.033 (0.000-0.034) ng/mL CBC 05/29/18 Range/Units 05:36 WBC 4.8 (3.8-10.6) k/uL RBC 3.57 L (3.80-5.40) m/uL Hgb 9.5 L (11.4-16.0) gm/dL Hct 32.7 L (34.0-46.0) % Plt Count 235 (150-450) k/uL Comprehensive Metabolic Panel 05/29/18 Range/Units 05:36 Sodium 137 (137-145) mmol/L Potassium 4.6 (3.5-5.1) mmol/L Chloride 99 (98-107) mmol/L Carbon Dioxide 27 (22-30) mmol/L BUN 28 H (7-17) mg/dL Creatinine 5.12 H (0.52-1.04) mg/dL Glucose 98 (74-99) mg/dL Calcium 9.2 (8.4-10.2) mg/dL Current Medications Generic Name Dose Route Start Last Admin Trade Name Freq PRN Reason Stop Dose Admin Albuterol Sulfate 2.5 mg 05/28/18 04:42 Ventolin Nebulized INHALATION RT-Q6H PRN Shortness Of Breath Alprazolam 0.25 mg 05/28/18 04:42 05/29/18 08:58 Xanax PO 0.25 mg BID PRN Administration Anxiety Budesonide/Formoterol Fumarate 2 puff 05/29/18 08:00 05/29/18 09:00 Symbicort 80-4.5 Mcg Inhaler INHALATION 2 puff RT-Q12H SELENE Administration Calcium Acetate 1,334 mg 05/28/18 12:30 05/29/18 12:06 Phoslo PO 1,334 mg TID-W/MEALS SELENE Administration Carvedilol 50 mg 05/28/18 07:30 05/29/18 06:35 Coreg PO 50 mg BID-W/MEALS SELENE Administration Cinacalcet 30 mg 05/30/18 09:00 Sensipar PO MOWEFR SELENE Hydromorphone HCl 0.5 mg 05/28/18 22:55 05/29/18 04:00 Dilaudid IVP 0.5 mg Q4HR PRN Administration Pain Nifedipine 90 mg 05/29/18 09:00 05/29/18 08:10 Procardia Xl PO 90 mg DAILY SELENE Administration Ondansetron HCl 4 mg 05/28/18 04:42 Zofran PO Q8H PRN Nausea Pantoprazole Sodium 40 mg 05/29/18 07:30 05/29/18 06:35 Protonix PO 40 mg [id number]-[id number] SELENE Administration Sodium Bicarbonate 650 mg 05/29/18 09:00 05/29/18 08:11 Sodium Bicarbonate Tab PO 650 mg BID SELENE Administration Sodium Chloride 10 ml 05/28/18 09:00 05/29/18 08:11 Saline Flush IV 10 ml BID SELENE Administration Spironolactone 25 mg 05/29/18 09:00 05/29/18 08:10 Aldactone PO 25 mg DAILY SELENE Administration Intake and Output 05/28/18 05/29/18 05/29/18 22:59 06:59 14:59 Intake Total 200 100 360 Balance 200 100 360 Intake: Oral 200 100 360 Other: # Voids 1 0 Weight 51.5 kg 05/29/18 05:36 05/29/18 05:36
[2018-05-29] MEDS ORDERED: ALPRAZolam 0.25 MG TAB PO SCH (21:00)
[2018-05-30] MEDS ORDERED: CINACALCET 30 MG TAB PO SCH (09:00)
== END 2018-05-29 14:40 | disposition home or self-care (01) | DRG 291 ==
LOC: EC 00:32 → 3SCARD 04:44
PROVIDERS: ADMIT Hospitalist; ATTEND Hospitalist
PROC: 5A1D70Z Performance of Urinary Filtration, Intermittent, Less than 6 Hours Per Day (ICD-10-PCS; principal; 2018-05-28)
DX: I13.2 Hypertensive heart and chronic kidney disease with heart failure and with stage 5 chronic kidney disease, or end stage renal disease (principal); I50.23 Acute on chronic systolic (congestive) heart failure; N18.6 End stage renal disease; Q60.0 Renal agenesis, unilateral; T86.12 Kidney transplant failure; D63.1 Anemia in chronic kidney disease; E55.9 Vitamin D deficiency, unspecified; F17.200 Nicotine dependence, unspecified, uncomplicated; F32.9 Major depressive disorder, single episode, unspecified; F41.9 Anxiety disorder, unspecified; G89.29 Other chronic pain; I09.89 Other specified rheumatic heart diseases; I27.20 Pulmonary hypertension, unspecified; I42.9 Cardiomyopathy, unspecified; J45.909 Unspecified asthma, uncomplicated; N83.209 Unspecified ovarian cyst, unspecified side; M54.9 Dorsalgia, unspecified; R77.9 Abnormality of plasma protein, unspecified; R07.9 Chest pain, unspecified; E83.89 Other disorders of mineral metabolism; I08.3 Combined rheumatic disorders of mitral, aortic and tricuspid valves; Z99.2 Dependence on renal dialysis; Z91.5 Personal history of self-harm; Z79.52 Long term (current) use of systemic steroids; Z79.899 Other long term (current) drug therapy; Z88.8 Allergy status to other drugs, medicaments and biological substances
CPT/HCPCS: 36415; 71045; 80048; 80053; 82150; 82550; 82553; 83690; 83735; 83880; 84484; 85025; 85610; 85730; 90935; 93005; 94640; 94760; 96374; 96375; 96376; 99285

== ENCOUNTER 2018-06-24 03:00 | Inpatient (IN) | payer BC, OTHER ==
[2018-06-24] MEDS ORDERED: SODIUM CHLORIDE 0.9% 1,000 ML IV STA (03:23)
[2018-06-24] MEDS ORDERED: NITROGLYCERIN-D5W PMX 50 MG in DEXTROSE/WATER 1 250ML.BAG IV ONE (03:24)
--- NOTE | 2018-06-24 03:33 | ED ---
SOB HPI - General Source: patient, family, RN notes reviewed, old records reviewed Mode of arrival: wheelchair Limitations: no limitations <Becky Marroquin - Last Filed: 06/24/18 12:08> <Omar Coats - Last Filed: 06/26/18 07:07> - General Chief Complaint: Shortness of Breath Stated Complaint: Difficulty Breathing Time Seen by Provider: 06/24/18 03:13 - History of Present Illness Initial Comments: Patient is a 27-year-old female with history of chronic kidney disease, receiving hemodialysis. Patient reports that due to the holiday schedule she missed her typical days of dialysis. She reports she is scheduled for Wednesday. Patient states that she was having increased shortness of breath and felt like she would not be able to wait till see her dialysis team today. Patient reports that she did take nifedipine at 2 AM when she was feeling acute shortness of breath. Patient states that her vice president pharmacy is Dr. Thompson. She did have a cardiac catheterization June [address] Monreal at [facility]. ( Becky Marroquin) - Related Data Home Medications Medication Instructions Recorded Confirmed Albuterol Sulfate [Proair Hfa] 2 puff INHALATION RT-Q6H PRN 01/22/16 06/24/18 Ondansetron [Zofran] 4 mg PO Q8H PRN 11/26/16 06/24/18 Calcium Acetate [PhosLo] 1,334 mg PO TID 05/01/18 06/24/18 ALPRAZolam [Xanax] 0.25 mg PO HS 05/28/18 06/24/18 Acetaminophen Tab [Tylenol] 1,000 mg PO DAILY 05/28/18 06/24/18 Albuterol Nebulized [Ventolin 3 ml INHALATION RT-Q6H 05/28/18 06/24/18 Nebulized] Budesonide/Formoterol Fumarate 2 puff INHALATION RT-Q12H 05/28/18 06/24/18 [Symbicort 80-4.5 Mcg Inhaler] Carvedilol [Coreg] 25 mg PO BID 05/28/18 06/24/18 Cinacalcet [Sensipar] 30 mg PO MOWEFR 05/28/18 06/24/18 NIFEdipine [NIFEdipine ER] 90 mg PO DAILY 05/28/18 06/24/18 Pantoprazole [Protonix] 40 mg PO DAILY 05/28/18 06/24/18 predniSONE 10 mg PO DAILY 05/28/18 06/24/18 Previous Rx's Medication Instructions Recorded Sodium Bicarbonate Tab 650 mg PO BID #60 tab 06/25/18 Spironolactone [Aldactone] 25 mg PO DAILY #30 tab 06/25/18 Allergies Allergy/AdvReac Type Severity Reaction Status Date / Time hydralazine AdvReac Rapid Verified 06/24/18 07:40 Heart Rate Review of Systems ROS Other: All systems not noted in ROS Statement are negative. <Becky Marroquin - Last Filed: 06/24/18 12:08> ROS Other: All systems not noted in ROS Statement are negative. <Omar Coats - Last Filed: 06/26/18 07:07> ROS Statement: Those systems with pertinent positive or pertinent negative responses have been documented in the HPI. Past Medical History Past Medical History: Asthma, Heart Failure, Hypertension, Renal Disease Additional Past Medical History / Comment(s): abdominal pain, hx kidney transplant 2009, acute on chronic renal failure. Other HX: polycystic renal failure with kidney transplant, CKD, vitimen D deficiency, anemia of chronic disease, ovarian cyst, chronic back pain, cardiomegaly History of Any Multi-Drug Resistant Organisms: None Reported Past Surgical History: Hernia Repair Additional Past Surgical History / Comment(s): 11/15/09 Kidney transplant R pelvis, dialysis catheter in and out, supra pubic hernia repair, transvaginal mesh, wisdom teeth extraction with anesthesia. Past Anesthesia/Blood Transfusion Reactions: No Reported Reaction Past Psychological History: Anxiety, Depression Smoking Status: Current some day smoker Past Alcohol Use History: None Reported Past Drug Use History: None Reported - Past Family History Father Family Medical History: No Reported History Additional Family Medical History / Comment(s): Father is healthy and is 59 yrs old. Mother Family Medical History: No Reported History Additional Family Medical History / Comment(s): Mother is healthy and is 57 yrs old. <Becky Marroquin - Last Filed: 06/24/18 12:08> General Exam Limitations: no limitations General appearance: alert, in no apparent distress Head exam: Present: atraumatic, normocephalic, normal inspection Eye exam: Present: normal appearance, PERRL, EOMI. Absent: scleral icterus, conjunctival injection, periorbital swelling ENT exam: Present: normal exam, mucous membranes moist Neck exam: Present: normal inspection. Absent: tenderness, meningismus, lymphadenopathy Respiratory exam: Absent: normal lung sounds bilaterally (Patient has crackles, diminished lung sounds bilaterally.), respiratory distress, wheezes, rales, rhonchi, stridor Cardiovascular Exam: Present: normal rhythm, tachycardia, gallop. Absent: regular rate, normal heart sounds, systolic murmur, diastolic murmur, rubs, clicks GI/Abdominal exam: Present: soft, normal bowel sounds. Absent: distended, tenderness, guarding, rebound, rigid Extremities exam: Present: normal inspection, full ROM, normal capillary refill. Absent: tenderness, pedal edema, joint swelling, calf tenderness Back exam: Present: normal inspection Neurological exam: Present: alert, oriented X3, CN II-XII intact Psychiatric exam: Present: normal affect, normal mood Skin exam: Present: warm, dry, intact, normal color. Absent: rash <Becky Marroquin - Last Filed: 06/24/18 12:08> <Omar Coats - Last Filed: 06/26/18 07:07> - General Exam Comments Initial Comments: 27-year-old female. Alert and oriented. (Becky Marroquin) Course <Becky Marroquin - Last Filed: 06/24/18 12:08> <Omar Coats - Last Filed: 06/26/18 07:07> Vital Signs 06/24/18 06/24/18 06/24/18 03:06 03:30 04:00 Temperature 97.7 F Pulse Rate 105 H 107 H 110 H Respiratory 20 19 18 Rate Blood Pressure 187/128 188/137 166/123 O2 Sat by Pulse 95 96 100 Oximetry 06/24/18 06/24/18 06/24/18 04:07 04:10 04:16 Temperature Pulse Rate 110 H 114 H 114 H Respiratory 18 18 18 Rate Blood Pressure 166/123 148/104 139/102 O2 Sat by Pulse 100 98 100 Oximetry 06/24/18 06/24/18 06/24/18 04:20 04:30 04:40 Temperature Pulse Rate 115 H 114 H 114 H Respiratory 18 18 20 Rate Blood Pressure 139/102 139/102 154/112 O2 Sat by Pulse 95 100 100 Oximetry 06/24/18 06/24/18 06/24/18 04:50 05:00 05:10 Temperature Pulse Rate 112 H 112 H 115 H Respiratory 18 20 18 Rate Blood Pressure 156/109 156/109 143/93 O2 Sat by Pulse 100 100 100 Oximetry 06/24/18 06/24/18 06/24/18 05:20 05:24 05:30 Temperature Pulse Rate 117 H 117 H Respiratory 20 16 Rate Blood Pressure 136/98 136/98 O2 Sat by Pulse 100 100 100 Oximetry 06/24/18 06/24/18 06/24/18 05:40 05:50 06:00 Temperature Pulse Rate 114 H 113 H 112 H Respiratory 16 16 16 Rate Blood Pressure 135/96 129/89 129/89 O2 Sat by Pulse 100 100 97 Oximetry 06/24/18 06/24/18 06/24/18 06:10 06:20 06:40 Temperature Pulse Rate 114 H 112 H 110 H Respiratory 16 16 16 Rate Blood Pressure 146/98 140/100 129/86 O2 Sat by Pulse 97 97 86 L Oximetry 06/24/18 06/24/18 06/24/18 06:50 07:00 07:20 Temperature Pulse Rate 109 H 108 H 113 H Respiratory 16 16 18 Rate Blood Pressure 131/86 131/86 142/105 O2 Sat by Pulse 97 95 100 Oximetry 06/24/18 06/24/18 06/24/18 07:40 08:00 08:20 Temperature Pulse Rate 114 H 116 H 112 H Respiratory 20 21 18 Rate Blood Pressure 141/105 141/101 142/89 O2 Sat by Pulse 94 L 92 L 94 L Oximetry 06/24/18 06/24/18 06/24/18 08:40 08:45 08:51 Temperature Pulse Rate 111 H 114 H 110 H Respiratory 20 Rate Blood Pressure 133/94 O2 Sat by Pulse 94 L Oximetry 06/24/18 06/24/18 06/24/18 09:00 09:20 09:40 Temperature Pulse Rate 117 H 97 98 Respiratory 20 20 18 Rate Blood Pressure 137/100 137/98 140/99 O2 Sat by Pulse 95 Oximetry 06/24/18 06/24/18 06/24/18 10:00 11:00 12:00 Temperature Pulse Rate 90 91 89 Respiratory 18 18 18 Rate Blood Pressure 133/88 149/91 141/93 O2 Sat by Pulse 95 98 95 Oximetry 06/24/18 06/24/18 06/24/18 13:00 14:00 15:00 Temperature Pulse Rate 86 95 91 Respiratory 20 18 18 Rate Blood Pressure 136/98 139/91 142/92 O2 Sat by Pulse 98 98 98 Oximetry 06/24/18 06/24/18 06/24/18 16:00 17:00 18:00 Temperature Pulse Rate 90 102 H 96 Respiratory 18 18 18 Rate Blood Pressure 136/83 136/97 139/99 O2 Sat by Pulse 98 97 97 Oximetry 06/24/18 06/24/18 06/24/18 18:30 19:26 19:31 Temperature 97.9 F Pulse Rate 95 97 Respiratory 18 20 21 Rate Blood Pressure 121/86 120/83 O2 Sat by Pulse 97 Oximetry - Reevaluation(s) Reevaluation #1: 06/24/18 06:32 I had paged the vice president pharmacy. (Omar Coats) Medical Decision Making - Lab Data Result diagrams: 06/24/18 03:36 06/24/18 03:36 - Radiology Data Radiology results: report reviewed <Becky Marroquin - Last Filed: 06/24/18 12:08> - Lab Data Result diagrams: 06/24/18 03:36 06/24/18 03:36 <Omar Coats - Last Filed: 06/26/18 07:07> - Medical Decision Making 27 Year old female with CKD, heart failure presents with worseing shortness of breath due to abnormal dialysis schedule. She arrived hypertensive 190/130. Patient at this time is having labored breathing, crackles and diminished lung sounds. Acute CHF exacerbation with fluid overload due to lack of dialysis. Patient at this time was started on nitro drip. CXR shows acute CHF exacerbation. Case discussed and transferred to Dr. Coats at 4am. (Becky Marroquin) I saw this patient in conjunction with the physician catering assistant. I performed independent history and physical exam. Agree with case management. Discussed case with Dr. Kirby, and dialysis being arranged. (Omar Coats) - Lab Data Lab Results 06/24/18 06/24/18 06/24/18 Range/Units 03:36 03:36 03:36 WBC (3.8-10.6) k/uL RBC (3.80-5.40) m/uL Hgb (11.4-16.0) gm/dL Hct (34.0-46.0) % MCV (80.0-100.0) fL MCH (25.0-35.0) pg MCHC (31.0-37.0) g/dL RDW (11.5-15.5) % Plt Count (150-450) k/uL Neutrophils % % Lymphocytes % % Monocytes % % Eosinophils % % Basophils % % Neutrophils # (1.3-7.7) k/uL Lymphocytes # (1.0-4.8) k/uL Monocytes # (0-1.0) k/uL Eosinophils # (0-0.7) k/uL Basophils # (0-0.2) k/uL Hypochromasia Anisocytosis Microcytosis PT (9.0-12.0) sec INR (<1.2) APTT (22.0-30.0) sec Sodium 137 (137-145) mmol/L Potassium 5.4 H (3.5-5.1) mmol/L Chloride 98 (98-107) mmol/L Carbon Dioxide 22 (22-30) mmol/L Anion Gap 17 mmol/L BUN 97 H (7-17) mg/dL Creatinine 10.19 H* (0.52-1.04) mg/dL Est GFR (CKD-EPI)AfAm 5 (>60 ml/min/1.73 sqM) Est GFR (CKD-EPI)NonAf 5 (>60 ml/min/1.73 sqM) Glucose 73 L (74-99) mg/dL Calcium 9.0 (8.4-10.2) mg/dL Magnesium 2.2 (1.6-2.3) mg/dL Total Bilirubin 1.4 H (0.2-1.3) mg/dL AST 31 (14-36) U/L ALT 33 (9-52) U/L Alkaline Phosphatase 100 (38-126) U/L Total Creatine Kinase 139 H (30-135) U/L CK-MB (CK-2) 1.3 (0.0-2.4) ng/mL CK-MB (CK-2) Rel Index 0.9 Troponin I 0.081 H* (0.000-0.034) ng/mL NT-Pro-B Natriuret Pep [id number] pg/mL Total Protein 8.1 (6.3-8.2) g/dL Albumin 4.2 (3.5-5.0) g/dL 06/24/18 06/24/18 Range/Units 03:36 04:47 WBC 8.7 (3.8-10.6) k/uL RBC 3.74 L (3.80-5.40) m/uL Hgb 10.2 L (11.4-16.0) gm/dL Hct 32.8 L (34.0-46.0) % MCV 87.8 (80.0-100.0) fL MCH 27.2 (25.0-35.0) pg MCHC 31.0 (31.0-37.0) g/dL RDW 22.1 H (11.5-15.5) % Plt Count 196 (150-450) k/uL Neutrophils % 79 % Lymphocytes % 14 % Monocytes % 3 % Eosinophils % 4 % Basophils % 1 % Neutrophils # 6.9 (1.3-7.7) k/uL Lymphocytes # 1.2 (1.0-4.8) k/uL Monocytes # 0.2 (0-1.0) k/uL Eosinophils # 0.3 (0-0.7) k/uL Basophils # 0.0 (0-0.2) k/uL Hypochromasia Moderate Anisocytosis Moderate Microcytosis Slight PT 13.1 H (9.0-12.0) sec INR 1.4 H (<1.2) APTT 25.3 (22.0-30.0) sec Sodium (137-145) mmol/L Potassium (3.5-5.1) mmol/L Chloride (98-107) mmol/L Carbon Dioxide (22-30) mmol/L Anion Gap mmol/L BUN (7-17) mg/dL Creatinine (0.52-1.04) mg/dL Est GFR (CKD-EPI)AfAm (>60 ml/min/1.73 sqM) Est GFR (CKD-EPI)NonAf (>60 ml/min/1.73 sqM) Glucose (74-99) mg/dL Calcium (8.4-10.2) mg/dL Magnesium (1.6-2.3) mg/dL Total Bilirubin (0.2-1.3) mg/dL AST (14-36) U/L ALT (9-52) U/L Alkaline Phosphatase (38-126) U/L Total Creatine Kinase (30-135) U/L CK-MB (CK-2) (0.0-2.4) ng/mL CK-MB (CK-2) Rel Index Troponin I (0.000-0.034) ng/mL NT-Pro-B Natriuret Pep pg/mL Total Protein (6.3-8.2) g/dL Albumin (3.5-5.0) g/dL 06/24/18 03:33 EKG performed at 3:21 AM shows sinus tachycardia, biatrial enlargement. Left ventricular hypertrophy. Abnormal EKG noted. Ventricular rate of 107 bpm. ME interval is 172 ms. QRS duration 94 ms. QT QTc is 370/504 ms. (Becky Marrouqin ) Disposition Time of Disposition: 12:11 <Becky Marroquin - Last Filed: 06/24/18 12:08> <Omar Coats - Last Filed: 06/26/18 07:07> Clinical Impression: CHF (congestive heart failure), Chest pain, Chronic renal disease, Elevated troponin I level, Hypertensive emergency Disposition: ADMITTED IP TO THIS HOSP Condition: Stable
[2018-06-24 04:05] LABS: Albumin 4.2 g/dL (3.5-5.0); Magnesium 2.2 mg/dL (1.6-2.3); Potassium 5.4 mmol/L (3.5-5.1); Total Bilirubin 1.4 mg/dL (0.2-1.3); Total Protein 8.1 g/dL (6.3-8.2)
[2018-06-24] MEDS ORDERED: MORPHINE SULFATE 4 MG/ML SYRINGE IVP STA ×2 (04:07→09:24)
[2018-06-24 04:09] LABS: Anisocytosis Moderate; Basophils % (A) 1 %; Eosinophils # (A) 0.3 k/uL (0-0.7); Eosinophils % (A) 4 %; HCT 32.8 % (34.0-46.0); HGB 10.2 gm/dL (11.4-16.0); Hypochromasia Moderate; Lymphocytes # (A) 1.2 k/uL (1.0-4.8); Lymphocytes % (A) 14 %; MCH 27.2 pg (25.0-35.0); MCV 87.8 fL (80.0-100.0); Mean Platelet Volume 7.7; Microcytosis Slight; Monocytes # (A) 0.2 k/uL (0-1.0); Monocytes % (A) 3 %; Neutrophils # (A) 6.9 k/uL (1.3-7.7); Neutrophils % (A) 79 %; Platelet Count 196 k/uL (150-450); RBC 3.74 m/uL (3.80-5.40); RDW 22.1 % (11.5-15.5); WBC 8.7 k/uL (3.8-10.6)
--- NOTE | 2018-06-24 04:14 | XR ---
EXAMINATION TYPE: XR chest 2V DATE OF EXAM: 06/24/2018 COMPARISON: 05/28/2018 HISTORY: Difficulty breathing TECHNIQUE: Frontal and lateral views of the chest are obtained. FINDINGS: Heart is moderately enlarged. There is pulmonary vascular congestion. There is slight blun ting of the costophrenic angles. There are chest leads. Bony thorax is intact. IMPRESSION: There is congestive heart failure that is slightly worse than last exam.
[2018-06-24 04:21] LABS: Creatine Kinase MB 1.3 ng/mL (0.0-2.4)
[2018-06-24 04:26] LABS: Troponin I 0.081 ng/mL (0.000-0.034)
[2018-06-24 05:04] LABS: INR 1.4 (<1.2); Partial Thromboplastin Time 25.3 sec (22.0-30.0); Prothrombin Time 13.1 sec (9.0-12.0)
[2018-06-24] MEDS ORDERED: ACETAMINOPHEN TAB 325 MG TAB PO PRN (06:53)
[2018-06-24] MEDS ORDERED: NALOXONE 0.4 MG/ML 1 ML VIAL IV PRN (06:53)
[2018-06-24] MEDS ORDERED: ONDANSETRON 4 MG TAB PO PRN (06:55)
[2018-06-24] MEDS ORDERED: NON-FORMULARY DRUG (Fluticasone/Salmeterol [Advair 250-50 Diskus] 1 PUFF) INHALATION SCH (08:00)
[2018-06-24] MEDS: SODIUM BICARBONATE TAB 650 MG TAB PO SCH ×2 (08:24→19:57)
[2018-06-24] MEDS: SPIRONOLACTONE 25 MG TAB PO SCH (08:25)
[2018-06-24] MEDS: predniSONE 10 MG TAB PO SCH (08:25)
[2018-06-24] MEDS: CALCIUM ACETATE 667 MG CAP PO SCH ×3 (08:25→19:36)
[2018-06-24] MEDS: PANTOPRAZOLE 40 MG TABLET PO SCH (08:25)
[2018-06-24] MEDS: CARVEDILOL 12.5 MG TAB PO SCH ×2 (08:25→19:36)
[2018-06-24] MEDS: NIFEdipine XL 90 MG TAB.ER.24 PO SCH (08:25)
[2018-06-24] MEDS: ALBUTEROL NEBULIZED 2.5 MG/3 ML INHALATION SCH ×3 (08:44→21:06)
[2018-06-24] MEDS: SYMBICORT 80-4.5 MCG INHALER INHALATION SCH ×2 (08:49→21:06)
--- NOTE | 2018-06-24 12:42 | P.HPIM ---
History of Present Illness This is a pleasant 27 years old female with past medical history of asthma, articular, hypertension, end-stage renal disease on hemodialysis, history of kidney transplant, chronic kidney disease, chronic back pain. She presents because of dyspnea of one-day duration. Patient states she had a cardiac Devices for her heart failure and function at [address] [place] [address] on 06/14/2018 when she was told if needed to check her heart pressures and they were okay. Since then she has some painful nodules in her right wrist and left neck, possible flow IV access line. Patient states that she thinks her antihypertensive as scheduled about pain make her blood pressure uncontrolled. Also patient complains from left-sided chest pain, similar to the chest pain she developed when she had a cardiac cath, he states like it's nonradiating this like an elephant sitting on my chest was 5/10 in severity when she came in however is now down to 1-2/10 in severity. There is nonspecific and increase by the debris thin but not with cough. Patient denied coughing. Currently she says she still feeling the dyspneic although she notices that she is breathing quietly, patient states that she feels better after oxygen provided for nasal cannula. She supposed to follow up with her machine rigger Dr. Birch from [facility] for her CHF. Patient denies abdominal pain or change in bowel habits. No fever. On admission her blood pressure was uncontrolled with 166/123, and she was placed on nitro drip, currently her blood pressure is 133/88. Heart rate 90, oxygen saturation 95% on 2 L oxygen. Patient says she did not miss her hemodialysis and she is going through hemodialysis currently. On admission her hemoglobin was 10.2, rest of CBC was unremarkable. Creatinine was 10.19 and potassium 5.4 area at INR is 1.4, troponin 0.081. EKG shows sinus tachycardia at 107, with QTC of 504. Review of Systems CONSTITUTIONAL: No fever, no malaise, no fatigue. HEENT: No recent visual problems or hearing problems. Denied any sore throat. CARDIOVASCULAR: , no palpitations, no syncope. PULMONARY: no cough, no hemoptysis. GASTROINTESTINAL: No diarrhea, no nausea, no vomiting, no abdominal pain. Normoactive bowel sounds. NEUROLOGICAL: No headaches, no weakness, no numbness. HEMATOLOGICAL: Denies any bleeding or petechiae. GENITOURINARY: Denies any burning micturition, frequency, or urgency. MUSCULOSKELETAL/RHEUMATOLOGICAL: Denies any joint pain, swelling, or any muscle pain. ENDOCRINE: Denies any polyuria or polydipsia. Past Medical History Past Medical History: Asthma, Heart Failure, Hypertension, Renal Disease Additional Past Medical History / Comment(s): Pt recently admitted to [facility] on with acute on chronic kidney failure/valvular disease. Other hx; ESRD d/t being born with polycystic kidney disease, failed kidney transplant, hemodialysis, cardiomegally with EF 20-25%, cardiac cath 06/14/18 at [facility] to check coronary pressures-has L neck lump and R wrist lump since procedure that pt states are painful to touch, chronic anemia, vitamin D deficiency, chronic low back pain, ovarian cysts, irregular menses. History of Any Multi-Drug Resistant Organisms: None Reported Past Surgical History: Hernia Repair Additional Past Surgical History / Comment(s): 06/14/18 cardiac cath at [facility] to check coronary pressures, 11/15/09 Failed kidney transplant R pelvis, dialysis catheter in and out, current L upper arm AVG, supra pubic hernia repair, transvaginal mesh, wisdom teeth extraction with anesthesia. Past Anesthesia/Blood Transfusion Reactions: No Reported Reaction Additional Past Anesthesia/Blood Transfusion Reaction / Comment(s): Pt has received blood in past without reaction. Smoking Status: Former smoker - Past Family History Father Family Medical History: No Reported History Additional Family Medical History / Comment(s): Father is healthy and is 59 yrs old. Mother Family Medical History: No Reported History Additional Family Medical History / Comment(s): Mother is healthy and is 57 yrs old. Medications and Allergies Home Medications Medication Instructions Recorded Confirmed Type Albuterol Sulfate [Proair Hfa] 2 puff INHALATION RT-Q6H PRN 01/22/16 06/24/18 History Ondansetron [Zofran] 4 mg PO Q8H PRN 11/26/16 06/24/18 History Calcium Acetate [PhosLo] 1,334 mg PO TID 05/01/18 06/24/18 History ALPRAZolam [Xanax] 0.25 mg PO HS 05/28/18 06/24/18 History Acetaminophen Tab [Tylenol] 1,000 mg PO DAILY 05/28/18 06/24/18 History Albuterol Nebulized [Ventolin 3 ml INHALATION RT-Q6H 05/28/18 06/24/18 History Nebulized] Budesonide/Formoterol Fumarate 2 puff INHALATION RT-Q12H 05/28/18 06/24/18 History [Symbicort 80-4.5 Mcg Inhaler] Carvedilol [Coreg] 25 mg PO BID 05/28/18 06/24/18 History Cinacalcet [Sensipar] 30 mg PO MOWEFR 05/28/18 06/24/18 History NIFEdipine [NIFEdipine ER] 90 mg PO DAILY 05/28/18 06/24/18 History Pantoprazole [Protonix] 40 mg PO DAILY 05/28/18 06/24/18 History predniSONE 10 mg PO DAILY 05/28/18 06/24/18 History Losartan [Cozaar] 25 mg PO DAILY 06/24/18 06/24/18 History Allergies Allergy/AdvReac Type Severity Reaction Status Date / Time hydralazine AdvReac Rapid Verified 06/24/18 07:40 Heart Rate Physical Exam Vitals: Vital Signs Temp Pulse Resp BP Pulse Ox 06/24/18 10:00 90 18 133/88 95 06/24/18 09:40 98 18 140/99 95 06/24/18 09:20 97 20 137/98 06/24/18 09:00 117 H 20 137/100 06/24/18 08:51 110 H 06/24/18 08:45 114 H 06/24/18 08:40 111 H 20 133/94 94 L 06/24/18 08:20 112 H 18 142/89 94 L 06/24/18 08:00 116 H 21 141/101 92 L 06/24/18 07:40 114 H 20 141/105 94 L 06/24/18 07:20 113 H 18 142/105 100 06/24/18 07:00 108 H 16 131/86 95 06/24/18 06:50 109 H 16 131/86 97 06/24/18 06:40 110 H 16 129/86 86 L 06/24/18 06:20 112 H 16 140/100 97 06/24/18 06:10 114 H 16 146/98 97 06/24/18 06:00 112 H 16 129/89 97 06/24/18 05:50 113 H 16 129/89 100 06/24/18 05:40 114 H 16 135/96 100 06/24/18 05:30 117 H 16 136/98 100 06/24/18 05:24 100 06/24/18 05:20 117 H 20 136/98 100 06/24/18 05:10 115 H 18 143/93 100 06/24/18 05:00 112 H 20 156/109 100 06/24/18 04:50 112 H 18 156/109 100 06/24/18 04:40 114 H 20 154/112 100 06/24/18 04:30 114 H 18 139/102 100 06/24/18 04:20 115 H 18 139/102 95 06/24/18 04:16 114 H 18 139/102 100 06/24/18 04:10 114 H 18 148/104 98 06/24/18 04:07 110 H 18 166/123 100 06/24/18 04:00 110 H 18 166/123 100 06/24/18 03:30 107 H 19 188/137 96 06/24/18 03:06 97.7 F 105 H 20 187/128 95 Intake and Output 06/23/18 06/24/18 06/24/18 22:59 06:59 14:59 Other: Weight 55 kg GENERAL: The patient is alert and oriented x3, not in any acute distress. Well developed, well nourished. HEENT: Pupils are round and equally reacting to light. EOMI. No scleral icterus. No conjunctival pallor. Normocephalic, atraumatic. No pharyngeal erythema. No thyromegaly. CARDIOVASCULAR: S1 and S2 present. No murmurs, rubs, or gallops. PULMONARY: Chest is clear to auscultation, no wheezing or crackles. ABDOMEN: Soft, nontender, nondistended, normoactive bowel sounds. No palpable organomegaly. MUSCULOSKELETAL: No joint swelling or deformity. EXTREMITIES: No cyanosis, clubbing, or pedal edema. NEUROLOGICAL: Gross neurological examination did not reveal any focal deficits. SKIN: No rashes. Results CBC & Chem 7: 06/24/18 03:36 06/24/18 03:36 Labs: Abnormal Lab Results - Last 24 Hours (Table) 06/24/18 06/24/18 06/24/18 Range/Units 03:36 03:36 03:36 RBC 3.74 L (3.80-5.40) m/uL Hgb 10.2 L (11.4-16.0) gm/dL Hct 32.8 L (34.0-46.0) % RDW 22.1 H (11.5-15.5) % PT (9.0-12.0) sec INR (<1.2) Potassium 5.4 H (3.5-5.1) mmol/L BUN 97 H (7-17) mg/dL Creatinine 10.19 H* (0.52-1.04) mg/dL Glucose 73 L (74-99) mg/dL Total Bilirubin 1.4 H (0.2-1.3) mg/dL Total Creatine Kinase 139 H (30-135) U/L Troponin I 0.081 H* (0.000-0.034) ng/mL 06/24/18 Range/Units 04:47 RBC (3.80-5.40) m/uL Hgb (11.4-16.0) gm/dL Hct (34.0-46.0) % RDW (11.5-15.5) % PT 13.1 H (9.0-12.0) sec INR 1.4 H (<1.2) Potassium (3.5-5.1) mmol/L BUN (7-17) mg/dL Creatinine (0.52-1.04) mg/dL Glucose (74-99) mg/dL Total Bilirubin (0.2-1.3) mg/dL Total Creatine Kinase (30-135) U/L Troponin I (0.000-0.034) ng/mL Thrombosis Risk Factor Assmnt - Choose All That Apply Any of the Below Risk Factors Present?: Yes Each Factor Represents 1 point: Heart failure (<1month) Other Risk Factors: No Other congenital or acquired thrombophilia - If yes, enter type in comment: No Thrombosis Risk Factor Assessment Total Risk Factor Score: 1 Thrombosis Risk Factor Assessment Level: Low Risk Assessment and Plan Assessment: Hypertensive emergency Acute and chronic congestive heart failure Chronic kidney disease, needing hemodialysis Painful nodule on the left lung And right wrist, status post cardiac cath on History of kidney transplant History of essential hypertension Anemia of chronic disease Chronic low back pain Plan: This is a pleasant 27 years old female who presents because of hypertensive emergency and acute CHF area she's going to hemodialysis. Consult nephrology already done from the emergency room. We'll call cardiology service for further evaluation. Pulmonary/care team consult. Continue with antihypertensive to control her blood pressure. Pain management. Labs and medication were reviewed.. Continue same treatment. Continue with symptomatic treatment. Resume home medication. Monitor lytes and vitals. DVT and GI prophylaxis. Further recommendations of the clinical course of the patient DVT prophylaxis: Subcutaneous heparin GI Prophylaxis: Pepcid PT/OT: Pending Prognosis is guarded
--- NOTE | 2018-06-24 12:43 | CONS ---
CONSULTATION REASON FOR CONSULT: End-stage renal disease. HISTORY OF PRESENT ILLNESS: The patient is a 27-year-old female with end-stage renal disease, on hemodialysis on a Wednesday, Wednesday, Wednesday schedule. The patient was admitted to the hospital with worsening shortness of breath. Currently, her blood pressure is high and she is awaiting dialysis. The patient denies any fever, chills, cough, abdominal pain, or diarrhea. PAST MEDICAL HISTORY: End-stage renal disease, previous history of failed kidney transplant, anemia of chronic disease, hypertension, diastolic dysfunction, CKD mineral bone disorder. PAST SURGICAL HISTORY: Kidney transplant, AV graft dialysis catheter placement, hernia repair. SOCIAL HISTORY: Positive for smoking. There is no history of drug abuse or alcohol abuse. MEDICATIONS: Medications prior to admission included Zofran, PhosLo, Xanax, Coreg, Sensipar, Protonix, nifedipine, Aldactone, prednisone. ALLERGIES: Allergies include HYDRALAZINE. REVIEW OF SYSTEMS: As per HPI. Other systems negative. PHYSICAL EXAMINATION: On examination, patient is currently comfortable, awake, not in any acute distress. Blood pressure was 137/98, heart rate 97 per minute. She is afebrile. EXAMINATION OF THE HEART: S1, S2. EXAMINATION OF THE LUNGS: Bilateral breath sounds are heard. Abdomen is soft, nontender. Examination of the lower extremities shows no significant edema. [employer] exam is grossly intact. LABS: Labs show sodium 137, potassium 5.4, chloride 98, BUN 97, serum creatinine 10.19. Hemoglobin of 10.2 g/dL. ASSESSMENT: 1. End-stage renal disease, on hemodialysis on a Wednesday, Wednesday, Wednesday schedule. We will arrange for hemodialysis today. 2. Fluid overload. Plan for about 4 L of ultrafiltration with hemodialysis today. 3. Hypertension, mainly volume sensitive, expect improvement with post dialysis. 4. Hyperkalemia associated with end-stage renal disease, expect improvement post dialysis. 5. Anemia of chronic disease. 6. Chronic kidney disease mineral bone disorder. 7. History of congestive heart failure. 8. Cardiomyopathy with ejection fraction 20% to 25% on echocardiogram done in May of 2018. PLAN: Hemodialysis today. We can hopefully discontinue the nitro drip after hemodialysis and hopefully patient can be discharged home soon. Thank you for this consultation. We will continue to follow the patient with you during her hospitalization. MMODL / IJN: [id number] /
[2018-06-24] MEDS ORDERED: GELATIN SPONGE,ABSORB (LARGE) 1 EACH SPONGE ONE (14:00)
--- NOTE | 2018-06-24 16:41 | P.CNPUL ---
History of Present Illness Consult date: 06/24/18 Reason for consult: dyspnea Chief complaint: Shortness of breath History of present illness: This is a 27-year-old female with history of asthma, hypertension, end-stage renal disease, on hemodialysis, history of kidney transplant, chronic back pain , patient presented with 1 day history of increased shortness of breath. Upon presentation to the hospital, patient was found to have cardiomegaly, pulmonary edema, and she was fluid overloaded. Patient was seen by nephrology in consultation, and she underwent hemodialysis. Blood pressure was elevated, patient is on nitroglycerin drip, and that is being tapered to be discontinued. Upon my evaluation, the patient was feeling better, breathing a lot easier, no shortness of breath no cough no wheezing no chest pain no nausea no vomiting no abdominal pain no melena no hematemesis no dysuria and no frequency no urgency. Review of Systems 14 point review of systems were obtained, please refer to pertinent positives in HPI. Past Medical History Past Medical History: Asthma, Heart Failure, Hypertension, Renal Disease Additional Past Medical History / Comment(s): Pt recently admitted to [facility] on with acute on chronic kidney failure/valvular disease. Other hx; ESRD d/t being born with polycystic kidney disease, failed kidney transplant, hemodialysis, cardiomegally with EF 20-25%, cardiac cath 06/14/18 at [facility] to check coronary pressures-has L neck lump and R wrist lump since procedure that pt states are painful to touch, chronic anemia, vitamin D deficiency, chronic low back pain, ovarian cysts, irregular menses. History of Any Multi-Drug Resistant Organisms: None Reported Past Surgical History: Hernia Repair Additional Past Surgical History / Comment(s): 06/14/18 cardiac cath at [facility] to check coronary pressures, 11/15/09 Failed kidney transplant R pelvis, dialysis catheter in and out, current L upper arm AVG, supra pubic hernia repair, transvaginal mesh, wisdom teeth extraction with anesthesia. Past Anesthesia/Blood Transfusion Reactions: No Reported Reaction Additional Past Anesthesia/Blood Transfusion Reaction / Comment(s): Pt has received blood in past without reaction. Smoking Status: Former smoker - Past Family History Father Family Medical History: No Reported History Additional Family Medical History / Comment(s): Father is healthy and is 59 yrs old. Mother Family Medical History: No Reported History Additional Family Medical History / Comment(s): Mother is healthy and is 57 yrs old. Medications and Allergies Home Medications Medication Instructions Recorded Confirmed Type Albuterol Sulfate [Proair Hfa] 2 puff INHALATION RT-Q6H PRN 01/22/16 06/24/18 History Ondansetron [Zofran] 4 mg PO Q8H PRN 11/26/16 06/24/18 History Calcium Acetate [PhosLo] 1,334 mg PO TID 05/01/18 06/24/18 History ALPRAZolam [Xanax] 0.25 mg PO HS 05/28/18 06/24/18 History Acetaminophen Tab [Tylenol] 1,000 mg PO DAILY 05/28/18 06/24/18 History Albuterol Nebulized [Ventolin 3 ml INHALATION RT-Q6H 05/28/18 06/24/18 History Nebulized] Budesonide/Formoterol Fumarate 2 puff INHALATION RT-Q12H 05/28/18 06/24/18 History [Symbicort 80-4.5 Mcg Inhaler] Carvedilol [Coreg] 25 mg PO BID 05/28/18 06/24/18 History Cinacalcet [Sensipar] 30 mg PO MOWEFR 05/28/18 06/24/18 History NIFEdipine [NIFEdipine ER] 90 mg PO DAILY 05/28/18 06/24/18 History Pantoprazole [Protonix] 40 mg PO DAILY 05/28/18 06/24/18 History predniSONE 10 mg PO DAILY 05/28/18 06/24/18 History Losartan [Cozaar] 25 mg PO DAILY 06/24/18 06/24/18 History Allergies Allergy/AdvReac Type Severity Reaction Status Date / Time hydralazine AdvReac Rapid Verified 06/24/18 07:40 Heart Rate Physical Exam Vitals: Vital Signs Temp Pulse Resp BP Pulse Ox 06/24/18 16:00 90 18 136/83 98 06/24/18 15:00 91 18 142/92 98 06/24/18 14:00 95 18 139/91 98 06/24/18 13:00 86 20 136/98 98 06/24/18 12:00 89 18 141/93 95 06/24/18 11:00 91 18 149/91 98 06/24/18 10:00 90 18 133/88 95 06/24/18 09:40 98 18 140/99 95 06/24/18 09:20 97 20 137/98 06/24/18 09:00 117 H 20 137/100 06/24/18 08:51 110 H 06/24/18 08:45 114 H 06/24/18 08:40 111 H 20 133/94 94 L 06/24/18 08:20 112 H 18 142/89 94 L 06/24/18 08:00 116 H 21 141/101 92 L 06/24/18 07:40 114 H 20 141/105 94 L 06/24/18 07:20 113 H 18 142/105 100 06/24/18 07:00 108 H 16 131/86 95 06/24/18 06:50 109 H 16 131/86 97 06/24/18 06:40 110 H 16 129/86 86 L 06/24/18 06:20 112 H 16 140/100 97 06/24/18 06:10 114 H 16 146/98 97 06/24/18 06:00 112 H 16 129/89 97 06/24/18 05:50 113 H 16 129/89 100 06/24/18 05:40 114 H 16 135/96 100 06/24/18 05:30 117 H 16 136/98 100 06/24/18 05:24 100 06/24/18 05:20 117 H 20 136/98 100 06/24/18 05:10 115 H 18 143/93 100 06/24/18 05:00 112 H 20 156/109 100 06/24/18 04:50 112 H 18 156/109 100 06/24/18 04:40 114 H 20 154/112 100 06/24/18 04:30 114 H 18 139/102 100 06/24/18 04:20 115 H 18 139/102 95 06/24/18 04:16 114 H 18 139/102 100 06/24/18 04:10 114 H 18 148/104 98 06/24/18 04:07 110 H 18 166/123 100 06/24/18 04:00 110 H 18 166/123 100 06/24/18 03:30 107 H 19 188/137 96 06/24/18 03:06 97.7 F 105 H 20 187/128 95 Intake and Output 11/06/24/18 06/24/18 06:59 14:59 22:59 Other: Weight 55 kg Physical Exam: Revealed a 27-year-old black female, in no distress. Head: Atraumatic, normocephalic. HEENT:[Neck is supple.] [No neck masses.] [No thyromegaly.] [No JVD.] Chest: [Clear throughout, no crackles, no rhonchi, no wheezes.] Cardiac Exam: [Normal S1 and S2, no S3 gallop, 2/6 systolic murmur thought the precordium. Abdomen: [Soft, nontender, no megaly, no rebound, no guarding, normal bowel sounds.] Extremities: [No clubbing, no edema, no cyanosis.] Neurological Exam: [No focal neurologic deficit.] Poly: No rashes. Catheter: Normal mood affect and mental status examination. Results - Laboratory Findings CBC and BMP: 06/24/18 03:36 06/24/18 03:36 PT/INR, D-dimer PT 13.1 sec (9.0-12.0) H 06/24/18 04:47 INR 1.4 (<1.2) H 06/24/18 04:47 Abnormal lab findings: Abnormal Labs 06/24/18 06/24/18 06/24/18 03:36 03:36 03:36 RBC 3.74 L Hgb 10.2 L Hct 32.8 L RDW 22.1 H PT INR Potassium 5.4 H BUN 97 H Creatinine 10.19 H* Glucose 73 L Total Bilirubin 1.4 H Total Creatine Kinase 139 H Troponin I 0.081 H* 06/24/18 04:47 RBC Hgb Hct RDW PT 13.1 H INR 1.4 H Potassium BUN Creatinine Glucose Total Bilirubin Total Creatine Kinase Troponin I - Diagnostic Findings Chest x-ray: image reviewed (As noted in HPI.) Assessment and Plan Assessment: Impression: 1 acute on chronic congestive heart failure secondary to renal failure, possible diastolic dysfunction. And secondary to hypertensive emergency. 2 hypertensive emergency on presentation 3 anemia of chronic disease 4 chronic kidney disease, patient is on hemodialysis. Recommendation: Continue present treatment plan, consider stopping nitroglycerin , continue Court, continue nifedipine, blood pressure remains elevated, consider adding clonidine, if the patient does well, may consider sending her to a cardiac floor rather than the ICU. However the blood pressure is not controlled patient will need to be admitted to the ICU for nitroglycerin drip and control the blood pressure. We'll continue to follow. Time with Patient: Greater than 30
[2018-06-24] MEDS: HEPARIN SODIUM,PORCINE 5,000 UNIT/ML 1 ML VIAL SQ SCH (19:56)
[2018-06-24] MEDS ORDERED: HYDROcodone/APAP 5-325MG 1 EACH TAB PO PRN (20:44)
[2018-06-24] MEDS ORDERED: ALPRAZolam 0.25 MG TAB PO SCH (21:00)
[2018-06-24] MEDS ORDERED: cloNIDine HCL 0.1 MG TAB PO SCH (21:00)
[2018-06-24] MEDS: FAMOTIDINE 20 MG/2 ML VIAL IV SCH (22:02)
[2018-06-25] MEDS: ALBUTEROL NEBULIZED 2.5 MG/3 ML INHALATION SCH ×3 (00:32→13:05)
[2018-06-25] MEDS: PANTOPRAZOLE 40 MG TABLET PO SCH (06:13)
[2018-06-25] MEDS: CALCIUM ACETATE 667 MG CAP PO SCH ×3 (06:13→17:21)
[2018-06-25] MEDS: CARVEDILOL 12.5 MG TAB PO SCH ×2 (06:13→17:21)
[2018-06-25] MEDS: SYMBICORT 80-4.5 MCG INHALER INHALATION SCH (07:18)
--- NOTE | 2018-06-25 08:23 | P.CRDCN ---
History of Present Illness Consult date: 06/25/18 Requesting physician: Agnieszka Travis Consult reason: congestive heart failure Chief complaint: Shortness of breath and fluid overload History of present illness: This is a pleasant 27-year-old -[place] female past medical history significant for end-stage renal disease status post failed transplant on hemodialysis, hypertension, severe pulmonary hypertension and nonischemic cardiomyopathy. She presented to the hospital with symptoms of shortness of breath as well as fluid overload. Patient does regularly get dialysis, she does not make urine on her own, because of the holiday schedule, there is a few days in between he could not get dialysis, she came to the hospital with symptoms of shortness of breath primarily. She did undergo dialysis yesterday, her weight is down 4 kg today. She is scheduled to undergo dialysis again today and the plan is for her to possibly be discharged home after that. Overall the patient states that she's been doing fairly well. She denies any chest discomfort and this morning her breathing is stable. Blood pressure 144/ 86 heart rate in the 90s, 97% on room air. White blood cell count 8.7, hemoglobin 10.2, platelet count 196. Sodium 137, potassium 5.4, BUN 97, creatinine 10.1, troponin 0.081, BNP [id number]. Past Medical History Past Medical History: Asthma, Heart Failure, Hypertension, Renal Disease Additional Past Medical History / Comment(s): Pt recently admitted to [facility] on with acute on chronic kidney failure/valvular disease. Other hx; ESRD d/t being born with polycystic kidney disease, failed kidney transplant, hemodialysis, cardiomegally with EF 20-25%, cardiac cath 06/14/18 at [facility] [place] to check coronary pressures-has L neck lump and R wrist lump since procedure that pt states are painful to touch, chronic anemia, vitamin D deficiency, chronic low back pain, ovarian cysts, irregular menses. History of Any Multi-Drug Resistant Organisms: None Reported Past Surgical History: Hernia Repair Additional Past Surgical History / Comment(s): 06/14/18 cardiac cath at [facility] [place] to check coronary pressures, 11/15/09 Failed kidney transplant R pelvis, dialysis catheter in and out, current L upper arm AVG, supra pubic hernia repair, transvaginal mesh, wisdom teeth extraction with anesthesia. Past Anesthesia/Blood Transfusion Reactions: No Reported Reaction Additional Past Anesthesia/Blood Transfusion Reaction / Comment(s): Pt has received blood in past without reaction. Smoking Status: Former smoker - Past Family History Father Family Medical History: No Reported History Additional Family Medical History / Comment(s): Father is healthy and is 59 yrs old. Mother Family Medical History: No Reported History Additional Family Medical History / Comment(s): Mother is healthy and is 57 yrs old. Medications and Allergies Home Medications Medication Instructions Recorded Confirmed Type Albuterol Sulfate [Proair Hfa] 2 puff INHALATION RT-Q6H PRN 01/22/16 06/24/18 History Ondansetron [Zofran] 4 mg PO Q8H PRN 11/26/16 06/24/18 History Calcium Acetate [PhosLo] 1,334 mg PO TID 05/01/18 06/24/18 History ALPRAZolam [Xanax] 0.25 mg PO HS 05/28/18 06/24/18 History Acetaminophen Tab [Tylenol] 1,000 mg PO DAILY 05/28/18 06/24/18 History Albuterol Nebulized [Ventolin 3 ml INHALATION RT-Q6H 05/28/18 06/24/18 History Nebulized] Budesonide/Formoterol Fumarate 2 puff INHALATION RT-Q12H 05/28/18 06/24/18 History [Symbicort 80-4.5 Mcg Inhaler] Carvedilol [Coreg] 25 mg PO BID 05/28/18 06/24/18 History Cinacalcet [Sensipar] 30 mg PO MOWEFR 05/28/18 06/24/18 History NIFEdipine [NIFEdipine ER] 90 mg PO DAILY 05/28/18 06/24/18 History Pantoprazole [Protonix] 40 mg PO DAILY 05/28/18 06/24/18 History predniSONE 10 mg PO DAILY 05/28/18 06/24/18 History Losartan [Cozaar] 25 mg PO DAILY 06/24/18 06/24/18 History Allergies Allergy/AdvReac Type Severity Reaction Status Date / Time hydralazine AdvReac Rapid Verified 06/24/18 07:40 Heart Rate Physical Exam Vitals: Vital Signs Temp Pulse Pulse Resp BP BP Pulse Ox 06/25/18 04:00 98.0 F 92 16 145/86 97 06/24/18 23:32 98.6 F 92 16 134/80 94 L 06/24/18 23:31 94 18 06/24/18 20:00 98.8 F 103 H 18 145/95 95 06/24/18 19:31 97.9 F 97 21 120/83 06/24/18 19:26 20 06/24/18 18:30 95 18 121/86 97 06/24/18 18:00 96 18 139/99 97 06/24/18 17:00 102 H 18 136/97 97 06/24/18 16:00 90 18 136/83 98 06/24/18 15:00 91 18 142/92 98 06/24/18 14:00 95 18 139/91 98 06/24/18 13:00 86 20 136/98 98 06/24/18 12:00 89 18 141/93 95 06/24/18 11:00 91 18 149/91 98 06/24/18 10:00 90 18 133/88 95 06/24/18 09:40 98 18 140/99 95 06/24/18 09:20 97 20 137/98 06/24/18 09:00 117 H 20 137/100 06/24/18 08:51 110 H 06/24/18 08:45 114 H 06/24/18 08:40 111 H 20 133/94 94 L 06/24/18 08:20 112 H 18 142/89 94 L Intake and Output 06/24/18 06/25/18 06/25/18 22:59 06:59 14:59 Intake Total 160 Balance 160 Intake: Intake, IV Titration 160 Amount Sodium Chloride 0.9% 1, 160 000 ml @ 20 mls/hr IV . Q24H STA Rx#:[id number] Other: Voiding Method Toilet Toilet # Voids 1 Weight 51.7 kg PHYSICAL EXAMINATION: GENERAL: 27-year-old -[place] female in no acute distress at the time of my examination HEENT: Head is atraumatic, normocephalic. Pupils equal, round. Sclera anicteric. Conjunctiva are clear. Mucous membranes of the mouth are moist. Neck is supple. There is no elevated jugular venous pressure. No carotid bruit is heard. HEART EXAMINATION: Heart S1 S2 1 systolic ejection murmur is heard at the base and apex. CHEST EXAMINATION: Lungs are clear to auscultation and precussion. No chest wall tenderness is noted on palpation or with deep breathing. ABDOMEN: Soft, nontender. Bowel sounds are heard. No organomegaly noted. EXTREMITIES: 2+ peripheral pulses with no evidence of peripheral edema and no calf tenderness noted. NEUROLOGIC patient is awake, alert and oriented 3. . Results 06/24/18 03:36 06/24/18 03:36 Current Medications Generic Name Dose Route Start Last Admin Trade Name Freq PRN Reason Stop Dose Admin Acetaminophen 650 mg 06/24/18 06:53 Tylenol Tab PO Q6HR PRN Mild Pain or Fever > 100.5 Hydrocodone Bitart/Acetaminophen 1 each 06/24/18 20:44 06/24/18 22:02 [place] 5-325 PO 1 each BID PRN Administration Pain Albuterol Sulfate 2.5 mg 06/24/18 08:00 06/25/18 07:17 Ventolin Nebulized INHALATION Not Given RT-Q6H SELENE Alprazolam 0.25 mg 06/24/18 21:00 06/24/18 22:02 Xanax PO 0.25 mg HS SELENE Administration Budesonide/Formoterol Fumarate 2 puff 06/24/18 08:00 06/25/18 07:18 Symbicort 80-4.5 Mcg Inhaler INHALATION Not Given RT-Q12H SELENE Calcium Acetate 1,334 mg 06/24/18 07:30 06/25/18 06:13 Phoslo PO 1,334 mg AC-TID SELENE Administration Carvedilol 25 mg 06/24/18 07:30 06/25/18 06:13 Coreg PO 25 mg AC-BID SELENE Administration Famotidine 20 mg 06/24/18 21:00 06/24/18 22:02 Pepcid IV 20 mg Q12HR SELENE Administration Heparin Sodium (Porcine) 5,000 unit 06/24/18 21:00 06/24/18 19:56 Heparin SQ Not Given Q12HR SELENE Naloxone HCl 0.2 mg 06/24/18 06:53 Narcan IV Q2M PRN Opioid Reversal Nifedipine 90 mg 06/24/18 09:00 06/24/18 08:25 Procardia Xl PO 90 mg DAILY SELENE Administration Ondansetron HCl 4 mg 06/24/18 06:55 Zofran PO Q8H PRN Nausea Pantoprazole Sodium 40 mg 06/24/18 07:30 06/25/18 06:13 Protonix PO 40 mg AC-BRKFST SELENE Administration Prednisone 10 mg 06/24/18 09:00 06/24/18 08:25 PO 10 mg DAILY SELENE Administration Sodium Bicarbonate 650 mg 06/24/18 09:00 06/24/18 19:57 Sodium Bicarbonate Tab PO Not Given BID SELENE Spironolactone 25 mg 06/24/18 09:00 06/24/18 08:25 Aldactone PO Not Given DAILY SELENE Intake and Output 06/24/18 06/25/18 06/25/18 22:59 06:59 14:59 Intake Total 160 Balance 160 Intake: Intake, IV Titration 160 Amount Sodium Chloride 0.9% 1, 160 000 ml @ 20 mls/hr IV . Q24H STA Rx#:[id number] Other: Voiding Method Toilet Toilet # Voids 1 Weight 51.7 kg 06/24/18 03:36 06/24/18 03:36 EKG Interpretations (text) EKG on admission showed a sinus tachycardia with no acute changes. Assessment and Plan Plan: Assessment and plan #1 congestive heart failure, systolic, acute on chronic, secondary to fluid overload and missed dialysis. #2 end-stage renal disease on hemodialysis, failed transplant #3 history of valvular heart disease, echocardiogram with Doppler study was performed recently which revealed an ejection fraction of 20-25% with severe global hypokinesis. Mild to moderate mitral regurg, severe tricuspid regurg, severe pulmonary hypertension, moderate pulmonic regurg #4 accelerated hypertension #5 asthma #6 anemia #7 nonischemic cardiomyopathy Plan Patient did undergo hemodialysis yesterday and is scheduled to undergo hemodialysis again today. She did have a recent echocardiogram with Doppler study which revealed an ejection fraction of 20-25%. Plans are for the patient to be discharged home following her dialysis today. We will continue her Coreg and Aldactone. Further recommendations to follow. DNP note has been reviewed, I agree with a documented findings and plan of care. Patient was seen and examined.
[2018-06-25] MEDS: HEPARIN SODIUM,PORCINE 5,000 UNIT/ML 1 ML VIAL SQ SCH (09:12)
[2018-06-25] MEDS: NIFEdipine XL 90 MG TAB.ER.24 PO SCH (09:15)
[2018-06-25] MEDS: SODIUM BICARBONATE TAB 650 MG TAB PO SCH (09:15)
[2018-06-25] MEDS: SPIRONOLACTONE 25 MG TAB PO SCH (09:15)
[2018-06-25] MEDS: predniSONE 10 MG TAB PO SCH (09:15)
[2018-06-25] MEDS: FAMOTIDINE 20 MG/2 ML VIAL IV SCH (09:15)
[2018-06-25 10:00] VITALS: RESP 18
[2018-06-25 11:19] VITALS: TEMP 97.3
[2018-06-25 12:54] VITALS: BMI 20.8
--- NOTE | 2018-06-25 13:11 | P.PN ---
Subjective Progress Note Date: 06/25/18 Principal diagnosis: Dyspnea secondary to fluid volume overload This is a 27-year-old female with history of asthma, hypertension, end-stage renal disease, on hemodialysis, history of kidney transplant, chronic back pain , patient presented with 1 day history of increased shortness of breath. Upon presentation to the hospital, patient was found to have cardiomegaly, pulmonary edema, and she was fluid overloaded. Patient was seen by nephrology in consultation, and she underwent hemodialysis. Blood pressure was elevated, patient is on nitroglycerin drip, and that is being tapered to be discontinued. Upon my evaluation, the patient was feeling better, breathing a lot easier, no shortness of breath no cough no wheezing no chest pain no nausea no vomiting no abdominal pain no melena no hematemesis no dysuria and no frequency no urgency. The patient is seen today 06/25/2018 in follow-up on the selective care unit. She is awake and alert in no acute distress. She is breathing quite a bit easier today as compared to yesterday. She is receiving her second hemodialysis in a row. She is now maintaining good O2 saturations in the 90s on room air. She is maintained on Symbicort and Ventolin. She's been afebrile. Slightly hypertensive. Objective - Vital Signs Vital signs: Vital Signs Temp 97.3 F L 06/25/18 11:15 Pulse 81 06/25/18 11:15 Resp 18 06/25/18 11:15 BP 155/92 06/25/18 11:15 Pulse Ox 93 L 06/25/18 11:15 Intake & Output 06/24/18 06/25/18 06/25/18 18:59 06:59 18:59 Intake Total 160 260 Balance 160 260 Weight 51.7 kg 51.7 kg Intake: Intake, IV Titration 160 Amount Sodium Chloride 0.9% 1, 160 000 ml @ 20 mls/hr IV . Q24H STA Rx#:[id number] Oral 260 Other: Voiding Method Toilet # Voids 1 - Exam Physical Exam: Revealed a 27-year-old black female, in no distress. On room air. Head: Atraumatic, normocephalic. HEENT:[Neck is supple.] [No neck masses.] [No thyromegaly.] [No JVD.] Chest: [Clear throughout, no crackles, no rhonchi, no wheezes.] Cardiac Exam: [Normal S1 and S2, no S3 gallop, 2/6 systolic murmur thought the precordium. Abdomen: [Soft, nontender, no megaly, no rebound, no guarding, normal bowel sounds.] Extremities: [No clubbing, no edema, no cyanosis.] Neurological Exam: [No focal neurologic deficit.] Poly: No rashes. Catheter: Normal mood affect and mental status examination. - Labs CBC & Chem 7: 06/24/18 03:36 06/24/18 03:36 Assessment and Plan Assessment: Impression: 1 acute on chronic congestive heart failure secondary to renal failure, possible diastolic dysfunction. And secondary to hypertensive emergency. 2 hypertensive emergency on presentation, improved. 3 anemia of chronic disease 4 chronic kidney disease, patient is on hemodialysis. Recommendation: The patient was seen and evaluated by Dr. Encarnacion. She is doing quite a bit better today as compared to yesterday. Maintaining good O2 saturations in the 90s on room air. She is receiving dialysis again today. Blood pressure better controlled. She is cleared for discharge from the pulmonary standpoint once cleared by cardiology and nephrology. I, the cosigning physician, performed a history & physical examination of the patient. Lungs sounds with faint crackles in the posterior bases. Maintaining good O2 saturations in the 90s on room air. I discussed the assessment and plan of care with my nurse practitioner, Samantha Winn. I attest to the above note as dictated by her.
--- NOTE | 2018-06-25 13:58 | P.PN ---
Subjective Progress Note Date: 06/25/18 Seen and examined for the follow-up of end-stage renal disease. Denies missing hemodialysis treatments. Admitting with shortness of breath and currently ongoing dialysis. No nausea vomiting or diarrhea. Objective - Vital Signs Vital signs: Vital Signs Temp 97.3 F L 06/25/18 11:15 Pulse 81 06/25/18 11:15 Resp 18 06/25/18 11:15 BP 155/92 06/25/18 11:15 Pulse Ox 93 L 06/25/18 11:15 Intake & Output 06/24/18 06/25/18 06/25/18 18:59 06:59 18:59 Intake Total 160 460 Balance 160 460 Weight 51.7 kg 51.7 kg Intake: Intake, IV Titration 160 Amount Sodium Chloride 0.9% 1, 160 000 ml @ 20 mls/hr IV . Q24H STA Rx#:[id number] Oral 460 Other: Voiding Method Toilet # Voids 1 - Exam S1-S2 heard Lungs clear No edema - Labs CBC & Chem 7: 06/24/18 03:36 06/24/18 03:36 Assessment and Plan Assessment: #1 end-stage renal disease on hemodialysis MWF. #2 fluid overload #3 hypertension #4 hyperkalemia #5 metabolic bone disease #6 cardiomyopathy with the EF of 20-25% Plan: #1 hemodialysis today. Currently on dialysis tolerating well. Stable to be discharged from nephrology point of view after dialysis. To be followed up in the clinic
[2018-06-25 16:41] VITALS: BP 132/86; PULSE 88
== END 2018-06-25 18:41 | disposition home or self-care (01) | DRG 291 ==
LOC: EC 03:00 → 2SICU 06:35 → 3SCARD 18:37
PROVIDERS: ADMIT Hospitalist; ATTEND Hospitalist
PROC: 5A1D70Z Performance of Urinary Filtration, Intermittent, Less than 6 Hours Per Day (ICD-10-PCS; principal; 2018-06-24)
DX: I13.2 Hypertensive heart and chronic kidney disease with heart failure and with stage 5 chronic kidney disease, or end stage renal disease (principal); I50.23 Acute on chronic systolic (congestive) heart failure; N18.6 End stage renal disease; I16.1 Hypertensive emergency; Q61.3 Polycystic kidney, unspecified; T86.12 Kidney transplant failure; N17.9 Acute kidney failure, unspecified; D63.8 Anemia in other chronic diseases classified elsewhere; E87.5 Hyperkalemia; E88.89 Other specified metabolic disorders; F17.200 Nicotine dependence, unspecified, uncomplicated; G89.29 Other chronic pain; I08.1 Rheumatic disorders of both mitral and tricuspid valves; I27.20 Pulmonary hypertension, unspecified; I42.8 Other cardiomyopathies; J45.909 Unspecified asthma, uncomplicated; M89.9 Disorder of bone, unspecified; Z99.2 Dependence on renal dialysis; N83.209 Unspecified ovarian cyst, unspecified side; R22.1 Localized swelling, mass and lump, neck; R22.31 Localized swelling, mass and lump, right upper limb; L76.82 Other postprocedural complications of skin and subcutaneous tissue; Z98.890 Other specified postprocedural states; Y84.0 Cardiac catheterization as the cause of abnormal reaction of the patient, or of later complication, without mention of misadventure at the time of the procedure; E55.9 Vitamin D deficiency, unspecified; M54.5 Low back pain; Z79.51 Long term (current) use of inhaled steroids; Z79.52 Long term (current) use of systemic steroids; Z79.899 Other long term (current) drug therapy; N93.8 Other specified abnormal uterine and vaginal bleeding
CPT/HCPCS: 36415; 71046; 80053; 82550; 82553; 83735; 83880; 84484; 85025; 85610; 85730; 93005; 94640; 96365; 96366; 96375; 96376; 99285

== ENCOUNTER 2018-07-02 14:09 | Emergency (ER) | payer BC, OTHER ==
[2018-07-02] MEDS ORDERED: HYDROmorphone 1 MG/ML 1 ML SYRINGE IVP STA (14:45)
[2018-07-02] MEDS ORDERED: ONDANSETRON 4 MG/2 ML VIAL IVP STA ×2 (14:45→16:57)
[2018-07-02 15:24] LABS: Anisocytosis Moderate; Basophils # (A) 0.1 k/uL (0-0.2); Basophils % (A) 1 %; Eosinophils # (A) 0.1 k/uL (0-0.7); Eosinophils % (A) 1 %; HCT 33.2 % (34.0-46.0); HGB 9.9 gm/dL (11.4-16.0); Hypochromasia Marked; Lymphocytes # (A) 1.1 k/uL (1.0-4.8); Lymphocytes % (A) 14 %; MCH 26.1 pg (25.0-35.0); MCHC 29.9 g/dL (31.0-37.0); MCV 87.6 fL (80.0-100.0); Mean Platelet Volume 7.3; Microcytosis Slight; Monocytes # (A) 0.2 k/uL (0-1.0); Monocytes % (A) 2 %; Neutrophils # (A) 6.2 k/uL (1.3-7.7); Neutrophils % (A) 81 %; Platelet Count 242 k/uL (150-450); RBC 3.79 m/uL (3.80-5.40); RDW 20.6 % (11.5-15.5); WBC 7.7 k/uL (3.8-10.6)
[2018-07-02 15:38] LABS: Albumin 4.2 g/dL (3.5-5.0); Calcium 9.7 mg/dL (8.4-10.2); Phosphorus 6.2 mg/dL (2.5-4.5); Potassium 5.6 mmol/L (3.5-5.1); Total Bilirubin 1.6 mg/dL (0.2-1.3); Total Protein 7.8 g/dL (6.3-8.2)
[2018-07-02] MEDS ORDERED: LABETALOL 5 MG/ML VIAL MDV IVP STA (15:38)
[2018-07-02 15:44] VITALS: RESP 18
--- NOTE | 2018-07-02 15:52 | ED ---
General Adult HPI - General Chief complaint: Nausea/Vomiting/Diarrhea Stated complaint: Vomiting Time Seen by Provider: 07/02/18 14:30 Source: patient Mode of arrival: ambulatory Limitations: no limitations - History of Present Illness Initial comments: 27-year-old female presents emergency Department chief complaint of nausea vomiting abdominal pain. She states the pain is only present when she vomits. Patient states she has these issues ever once in a while with her dialysis. She dialysis yesterday she had no comp patients. She denies any chest pain or shortness of breath. She states that she was unable take her blood pressure medication so her blood pressure is elevated. Patient does not make any urine at this time. Patient denies fever, chills or any URI symptoms. - Related Data Home Medications Medication Instructions Recorded Confirmed Albuterol Sulfate [Proair Hfa] 2 puff INHALATION RT-Q6H PRN 01/22/16 06/24/18 Ondansetron [Zofran] 4 mg PO Q8H PRN 11/26/16 06/24/18 Calcium Acetate [PhosLo] 1,334 mg PO TID 05/01/18 06/24/18 ALPRAZolam [Xanax] 0.25 mg PO HS 05/28/18 06/24/18 Acetaminophen Tab [Tylenol] 1,000 mg PO DAILY 05/28/18 06/24/18 Albuterol Nebulized [Ventolin 3 ml INHALATION RT-Q6H 05/28/18 06/24/18 Nebulized] Budesonide/Formoterol Fumarate 2 puff INHALATION RT-Q12H 05/28/18 06/24/18 [Symbicort 80-4.5 Mcg Inhaler] Carvedilol [Coreg] 25 mg PO BID 05/28/18 06/24/18 Cinacalcet [Sensipar] 30 mg PO MOWEFR 05/28/18 06/24/18 NIFEdipine [NIFEdipine ER] 90 mg PO DAILY 05/28/18 06/24/18 Pantoprazole [Protonix] 40 mg PO DAILY 05/28/18 06/24/18 predniSONE 10 mg PO DAILY 05/28/18 06/24/18 Previous Rx's Medication Instructions Recorded Sodium Bicarbonate Tab 650 mg PO BID #60 tab 06/25/18 Spironolactone [Aldactone] 25 mg PO DAILY #30 tab 06/25/18 Ondansetron Odt [Zofran Odt] 4 mg PO Q8HR PRN #10 tab 07/02/18 Sodium Polystyrene Sulfonate 15 gm PO BID #30 ml 07/02/18 [Kayexalate] Allergies Allergy/AdvReac Type Severity Reaction Status Date / Time hydralazine AdvReac Rapid Verified 07/02/18 14:12 Heart Rate Review of Systems ROS Statement: Those systems with pertinent positive or pertinent negative responses have been documented in the HPI. ROS Other: All systems not noted in ROS Statement are negative. Past Medical History Past Medical History: Asthma, Heart Failure, Hypertension, Renal Disease Additional Past Medical History / Comment(s): Pt recently admitted to [facility] on with acute on chronic kidney failure/valvular disease. Other hx; ESRD d/t being born with polycystic kidney disease, failed kidney transplant, hemodialysis, cardiomegally with EF 20-25%, cardiac cath 06/14/18 at [facility] to check coronary pressures-has L neck lump and R wrist lump since procedure that pt states are painful to touch, chronic anemia, vitamin D deficiency, chronic low back pain, ovarian cysts, irregular menses. History of Any Multi-Drug Resistant Organisms: None Reported Past Surgical History: Hernia Repair Additional Past Surgical History / Comment(s): 06/14/18 cardiac cath at [facility] to check coronary pressures, 11/15/09 Failed kidney transplant R pelvis, dialysis catheter in and out, current L upper arm AVG, supra pubic hernia repair, transvaginal mesh, wisdom teeth extraction with anesthesia. Past Anesthesia/Blood Transfusion Reactions: No Reported Reaction Additional Past Anesthesia/Blood Transfusion Reaction / Comment(s): Pt has received blood in past without reaction. Past Psychological History: Anxiety, Depression Smoking Status: Former smoker Past Alcohol Use History: None Reported Past Drug Use History: None Reported - Past Family History Father Family Medical History: No Reported History Additional Family Medical History / Comment(s): Father is healthy and is 59 yrs old. Mother Family Medical History: No Reported History Additional Family Medical History / Comment(s): Mother is healthy and is 57 yrs old. General Exam Limitations: no limitations General appearance: alert, in no apparent distress Head exam: Present: atraumatic, normocephalic, normal inspection Eye exam: Present: normal appearance, PERRL, EOMI. Absent: scleral icterus, conjunctival injection, periorbital swelling ENT exam: Present: normal exam, normal oropharynx, mucous membranes moist Neck exam: Present: normal inspection. Absent: tenderness, meningismus, lymphadenopathy Respiratory exam: Present: normal lung sounds bilaterally. Absent: respiratory distress, wheezes, rales, rhonchi, stridor Cardiovascular Exam: Present: normal rhythm, tachycardia, normal heart sounds. Absent: systolic murmur, diastolic murmur, rubs, gallop, clicks GI/Abdominal exam: Present: soft, tenderness (Mild diffuse), normal bowel sounds. Absent: distended, guarding, rebound, rigid Back exam: Absent: CVA tenderness (R), CVA tenderness (L) Skin exam: Present: warm, dry, intact, normal color. Absent: rash Course Vital Signs 07/02/18 07/02/18 07/02/18 14:12 15:00 15:26 Temperature 98.1 F 99.1 F Pulse Rate 111 H 123 H Respiratory 18 21 Rate Blood Pressure 182/130 178/135 O2 Sat by Pulse 96 98 Oximetry 07/02/18 07/02/18 07/02/18 15:30 16:30 17:02 Temperature 98.3 F Pulse Rate 111 H 98 79 Respiratory 18 18 18 Rate Blood Pressure 180/139 145/123 147/105 O2 Sat by Pulse 97 100 98 Oximetry 07/02/18 17:30 Temperature Pulse Rate 94 Respiratory 18 Rate Blood Pressure 147/105 O2 Sat by Pulse 92 L Oximetry EKG Findings - EKG Comments: EKG Findings:: EKG performed at 14:52 sinus tachycardia with left atrial enlargement left axis deviation rate of 114 ME 178 QRS 92 QT/QTC 318/438 Medical Decision Making - Medical Decision Making 27-year-old female presents emergency from for nausea vomiting. Patient does have known renal failure on dialysis. Patient mild hyperkalemia Dr. Kaur did discuss the case with on-call web production manager who recommended Kayexalate now and 2 doses tomorrow. Patient will go for dialysis on Wednesday. Patient able tolerate oral intake in emergency department. Blood pressure is improved after medications. Patient's blood pressure is elevated secondary to noncompliance. - Lab Data Result diagrams: 07/02/18 14:34 07/02/18 14:34 Lab Results 07/02/18 07/02/18 Range/Units 14:34 14:34 WBC 7.7 (3.8-10.6) k/uL RBC 3.79 L (3.80-5.40) m/uL Hgb 9.9 L (11.4-16.0) gm/dL Hct 33.2 L (34.0-46.0) % MCV 87.6 (80.0-100.0) fL MCH 26.1 (25.0-35.0) pg MCHC 29.9 L (31.0-37.0) g/dL RDW 20.6 H (11.5-15.5) % Plt Count 242 (150-450) k/uL Neutrophils % 81 % Lymphocytes % 14 % Monocytes % 2 % Eosinophils % 1 % Basophils % 1 % Neutrophils # 6.2 (1.3-7.7) k/uL Lymphocytes # 1.1 (1.0-4.8) k/uL Monocytes # 0.2 (0-1.0) k/uL Eosinophils # 0.1 (0-0.7) k/uL Basophils # 0.1 (0-0.2) k/uL Hypochromasia Marked Anisocytosis Moderate Microcytosis Slight Sodium 138 (137-145) mmol/L Potassium 5.6 H (3.5-5.1) mmol/L Chloride 96 L (98-107) mmol/L Carbon Dioxide 26 (22-30) mmol/L Anion Gap 16 mmol/L BUN 50 H (7-17) mg/dL Creatinine 6.58 H (0.52-1.04) mg/dL Est GFR (CKD-EPI)AfAm 9 (>60 ml/min/1.73 sqM) Est GFR (CKD-EPI)NonAf 8 (>60 ml/min/1.73 sqM) Glucose 88 (74-99) mg/dL Calcium 9.7 (8.4-10.2) mg/dL Phosphorus 6.2 H (2.5-4.5) mg/dL Magnesium 2.0 (1.6-2.3) mg/dL Total Bilirubin 1.6 H (0.2-1.3) mg/dL AST 25 (14-36) U/L ALT 35 (9-52) U/L Alkaline Phosphatase 96 (38-126) U/L Total Protein 7.8 (6.3-8.2) g/dL Albumin 4.2 (3.5-5.0) g/dL Amylase 118 H (30-110) U/L Lipase 151 (23-300) U/L Disposition Clinical Impression: Chronic renal disease, Nausea & vomiting, Hypertension Disposition: HOME SELF-CARE Condition: Stable Instructions: Acute Nausea and Vomiting (ED) Additional Instructions: Please return to the Emergency Department if symptoms worsen or any other concerns. Prescriptions: Ondansetron Odt [Zofran Odt] 4 mg PO Q8HR PRN #10 tab PRN Reason: Nausea Sodium Polystyrene Sulfonate [Kayexalate] 15 gm PO BID #30 ml Is patient prescribed a controlled substance at d/c from ED?: No Referrals: Mary Baez MD [Primary Care Provider] - 1-2 days Time of Disposition: 18:15
--- NOTE | 2018-07-02 16:28 | XR ---
EXAMINATION TYPE: XR chest 2V DATE OF EXAM: 07/02/2018 COMPARISON: Chest radiograph 06/24/2018 HISTORY: 27-year-old with shortness of breath TECHNIQUE: Frontal and lateral views of the chest are obtained. FINDINGS: The heart is again markedly enlarged but unchanged in size in the interval. Increased pulm onary vascular congestion with patchy perihilar airspace opacities. No pneumothorax or pleural effusi on. Surgical clips are seen in the soft tissues of the medial left arm. IMPRESSION: Redemonstration of cardiomegaly with pulmonary vascular congestion. Perihilar airspace opacities are evident which have not significantly changed in the interval.
[2018-07-02] MEDS ORDERED: NITROGLYCERIN SL TABS 0.4 MG TAB SUBLINGUAL STA (16:48)
[2018-07-02] MEDS ORDERED: SODIUM POLYSTYRENE SULFONATE 15 GM/60 ML BOTTLE PO STA (17:42)
[2018-07-02 18:26] VITALS: BP 171/117; PULSE 98; TEMP 98.8
== END 2018-07-02 18:24 | disposition home or self-care (01) ==
LOC: EC 14:09
DX: I13.2 Hypertensive heart and chronic kidney disease with heart failure and with stage 5 chronic kidney disease, or end stage renal disease (principal); N18.6 End stage renal disease; I50.9 Heart failure, unspecified; E87.5 Hyperkalemia; J45.909 Unspecified asthma, uncomplicated; F41.9 Anxiety disorder, unspecified; Z91.19 Patient's noncompliance with other medical treatment and regimen; Z99.2 Dependence on renal dialysis; Z87.891 Personal history of nicotine dependence; Z95.818 Presence of other cardiac implants and grafts; Z79.51 Long term (current) use of inhaled steroids; Z79.52 Long term (current) use of systemic steroids; Z79.899 Other long term (current) drug therapy; Z88.8 Allergy status to other drugs, medicaments and biological substances
CPT/HCPCS: 36415; 93005; 80053; 82150; 83690; 83735; 84100; 85025; 71046; 99284; 96374; 96375 ×2; 96376; J2405; J1170

== ENCOUNTER 2018-07-15 10:04 | Emergency (ER) | payer BC, OTHER ==
[2018-07-15] MEDS ORDERED: ASPIRIN 81 MG PO STA (10:15)
--- NOTE | 2018-07-15 10:15 | ED ---
General Adult HPI - General Chief complaint: Chest Pain Stated complaint: Chest Pain Source: patient Mode of arrival: ambulatory Limitations: no limitations - History of Present Illness Initial comments: Dictation was produced using [employer] dictation software. please excuse any grammatical, word or spelling errors. Chief Complaint: 27-year-old Rican female past medical history of end- stage renal disease presents with chest pain during dialysis. History of Present Illness: 27-year-old female presents with chest pain during dialysis. Patient was at dialysis today where she received approximately three fourths of her dialysis treatment. At that time she developed sharp substernal chest pain with radiation to the left shoulder. Patient denied any associated diaphoresis, nausea or vomiting. Patient has had some chest pain before. Patient's cardiac history includes congestive heart failure. Patient has a history of coronary disease. Patient denies any coughing, constitutional symptoms. No nausea, vomiting patient denies any GI symptoms. 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 His report having a registered nurse float pool at [facility]. The ROS documented in this emergency department record has been reviewed and confirmed by me. Those systems with pertinent positive or negative responses have been documented in the HPI. All other systems are other negative and/or noncontributory. - Related Data Home Medications Medication Instructions Recorded Confirmed Albuterol Sulfate [Proair Hfa] 2 puff INHALATION RT-Q6H PRN 01/22/16 07/15/18 Ondansetron [Zofran] 4 mg PO Q8H PRN 11/26/16 07/15/18 Calcium Acetate [PhosLo] 1,334 mg PO AC-TID 05/01/18 07/15/18 ALPRAZolam [Xanax] 0.25 mg PO HS 05/28/18 07/15/18 Acetaminophen Tab [Tylenol] 1,000 mg PO DAILY 05/28/18 07/15/18 Budesonide/Formoterol Fumarate 2 puff INHALATION RT-Q12H 05/28/18 07/15/18 [Symbicort 80-4.5 Mcg Inhaler] Carvedilol [Coreg] 25 mg PO BID 05/28/18 07/15/18 Cinacalcet [Sensipar] 30 mg PO MOWEFR 05/28/18 07/15/18 NIFEdipine [NIFEdipine ER] 90 mg PO DAILY 05/28/18 07/15/18 Pantoprazole [Protonix] 40 mg PO DAILY 05/28/18 07/15/18 predniSONE 10 mg PO DAILY 05/28/18 07/15/18 Losartan [Cozaar] 25 mg PO DAILY 07/15/18 07/15/18 Previous Rx's Medication Instructions Recorded Sodium Bicarbonate Tab 650 mg PO BID #60 tab 06/25/18 Spironolactone [Aldactone] 25 mg PO DAILY #30 tab 06/25/18 Ondansetron Odt [Zofran Odt] 4 mg PO Q8HR PRN #10 tab 07/02/18 Allergies Allergy/AdvReac Type Severity Reaction Status Date / Time hydralazine AdvReac Rapid Verified 07/15/18 10:22 Heart Rate Review of Systems ROS Statement: Those systems with pertinent positive or pertinent negative responses have been documented in the HPI. ROS Other: All systems not noted in ROS Statement are negative. Past Medical History Past Medical History: Asthma, Heart Failure, Hypertension, Renal Disease Additional Past Medical History / Comment(s): Pt recently admitted to [facility] on with acute on chronic kidney failure/valvular disease. Other hx; ESRD d/t being born with polycystic kidney disease, failed kidney transplant, hemodialysis, cardiomegally with EF 20-25%, cardiac cath 06/14/18 at [facility] to check coronary pressures-has L neck lump and R wrist lump since procedure that pt states are painful to touch, chronic anemia, vitamin D deficiency, chronic low back pain, ovarian cysts, irregular menses. History of Any Multi-Drug Resistant Organisms: None Reported Past Surgical History: Hernia Repair Additional Past Surgical History / Comment(s): 06/14/18 cardiac cath at [facility] to check coronary pressures, 11/15/09 Failed kidney transplant R pelvis, dialysis catheter in and out, current L upper arm AVG, supra pubic hernia repair, transvaginal mesh, wisdom teeth extraction with anesthesia. Past Anesthesia/Blood Transfusion Reactions: No Reported Reaction Additional Past Anesthesia/Blood Transfusion Reaction / Comment(s): Pt has received blood in past without reaction. Past Psychological History: Anxiety, Depression Smoking Status: Former smoker Past Alcohol Use History: None Reported Past Drug Use History: None Reported - Past Family History Father Family Medical History: No Reported History Additional Family Medical History / Comment(s): Father is healthy and is 59 yrs old. Mother Family Medical History: No Reported History Additional Family Medical History / Comment(s): Mother is healthy and is 57 yrs old. General Exam - General Exam Comments Initial Comments: PHYSICAL EXAM: General Impression: Alert and oriented x3, not in acute distress HEENT: Normocephalic atraumatic, extra-ocular movements intact, pupils equal and reactive to light bilaterally, mucous membranes moist. Cardiovascular: Heart regular rate and rhythm, S1&S2 audible, no murmurs, rubs or gallops Chest: Lungs clear to auscultation bilaterally, no rhonchi, no wheeze, no rales Abdomen: Bowel sounds present, abdomen soft, non-tender, non-distended, no organomegaly Musculoskeletal: Pulses present and equal in all extremities, no peripheral edema Motor: Power 5/5 bilaterally, no focal deficits noted Neurological: CN II-XII grossly intact, no focal motor or sensory deficits noted Skin: Intact with no visualized rashes, left upper extremity dialysis access. Psych: Normal affect and mood Limitations: no limitations Course Vital Signs 07/15/18 07/15/18 10:07 11:57 Temperature 98.4 F Pulse Rate 99 89 Respiratory 20 20 Rate Blood Pressure 131/80 128/99 O2 Sat by Pulse 98 99 Oximetry Medical Decision Making - Medical Decision Making ED course: Patient is a 27-year-old Rican female past medical history of end-stage renal disease who presents with chest pain during dialysis. Patient has history of renal transplant that failed. She was back on dialysis for the last year approximately. Chart review shows that patient was last evaluated by cardiology last month. Patient has any lower extremity symptoms. Patient has a history of DVT or pulmonary emboli. Medications were reviewed. Vital signs upon arrival are within acceptable limits. Patient appears comfortable. Laboratory evaluation was obtained. CBC is unremarkable. Coag panel is within acceptable limits. Metabolic panel shows findings within acceptable limits. Troponin is 0.041 which is over the patient's baseline. Patient tolerating by mouth. She appears comfortable. At this point clinical presentation consistent with atypical chest pain. Discussed with patient that there is no clinical suspicion for acute emergent cardiopulmonary process. She does have appointment with her registered nurse float pool on Wednesday. Patient told to return to the emergency department if she has any worsening symptoms. Patient does have a prolonged QT on EKG however that appears to be patient's baseline. EKG interpretation: Ventricular rate 94, normal sinus rhythm,. Interval to 8, QRS, QTc 520.. No AK prolongation, no QTC prolongation, no ST or T-wave changes noted. Repeat EKG was obtained showing ventricular rate 94, AK interval 2, care is 100, QTc 520. EKG compared to July 02 2018 showing no changes. Overall, this EKG is unremarkable - Lab Data Result diagrams: 07/15/18 10:12 07/15/18 10:12 Lab Results 07/15/18 07/15/18 07/15/18 Range/Units 10:12 10:12 10:12 WBC 6.7 (3.8-10.6) k/uL RBC 3.87 (3.80-5.40) m/uL Hgb 10.0 L (11.4-16.0) gm/dL Hct 33.7 L (34.0-46.0) % MCV 87.0 (80.0-100.0) fL MCH 25.9 (25.0-35.0) pg MCHC 29.7 L (31.0-37.0) g/dL RDW 20.9 H (11.5-15.5) % Plt Count 293 (150-450) k/uL Neutrophils % 77 % Lymphocytes % 12 % Monocytes % 7 % Eosinophils % 2 % Basophils % 0 % Neutrophils # 5.2 (1.3-7.7) k/uL Lymphocytes # 0.8 L (1.0-4.8) k/uL Monocytes # 0.5 (0-1.0) k/uL Eosinophils # 0.1 (0-0.7) k/uL Basophils # 0.0 (0-0.2) k/uL Hypochromasia Marked Anisocytosis Moderate Microcytosis Slight PT (9.0-12.0) sec INR (<1.2) APTT (22.0-30.0) sec Sodium 139 (137-145) mmol/L Potassium 3.9 (3.5-5.1) mmol/L Chloride 96 L (98-107) mmol/L Carbon Dioxide 33 H (22-30) mmol/L Anion Gap 10 mmol/L BUN 33 H (7-17) mg/dL Creatinine 4.20 H (0.52-1.04) mg/dL Est GFR (CKD-EPI)AfAm 16 (>60 ml/min/1.73 sqM) Est GFR (CKD-EPI)NonAf 14 (>60 ml/min/1.73 sqM) Glucose 124 H (74-99) mg/dL Calcium 8.8 (8.4-10.2) mg/dL Magnesium 1.8 (1.6-2.3) mg/dL Total Bilirubin 0.8 (0.2-1.3) mg/dL AST 38 H (14-36) U/L ALT 46 (9-52) U/L Alkaline Phosphatase 137 H (38-126) U/L Total Creatine Kinase 45 (30-135) U/L CK-MB (CK-2) 0.6 (0.0-2.4) ng/mL CK-MB (CK-2) Rel Index 1.3 Troponin I 0.041 H* (0.000-0.034) ng/mL Total Protein 7.2 (6.3-8.2) g/dL Albumin 3.7 (3.5-5.0) g/dL 07/15/18 Range/Units 10:12 WBC (3.8-10.6) k/uL RBC (3.80-5.40) m/uL Hgb (11.4-16.0) gm/dL Hct (34.0-46.0) % MCV (80.0-100.0) fL MCH (25.0-35.0) pg MCHC (31.0-37.0) g/dL RDW (11.5-15.5) % Plt Count (150-450) k/uL Neutrophils % % Lymphocytes % % Monocytes % % Eosinophils % % Basophils % % Neutrophils # (1.3-7.7) k/uL Lymphocytes # (1.0-4.8) k/uL Monocytes # (0-1.0) k/uL Eosinophils # (0-0.7) k/uL Basophils # (0-0.2) k/uL Hypochromasia Anisocytosis Microcytosis PT 21.2 H (9.0-12.0) sec INR 2.2 H (<1.2) APTT 30.2 H (22.0-30.0) sec Sodium (137-145) mmol/L Potassium (3.5-5.1) mmol/L Chloride (98-107) mmol/L Carbon Dioxide (22-30) mmol/L Anion Gap mmol/L BUN (7-17) mg/dL Creatinine (0.52-1.04) mg/dL Est GFR (CKD-EPI)AfAm (>60 ml/min/1.73 sqM) Est GFR (CKD-EPI)NonAf (>60 ml/min/1.73 sqM) Glucose (74-99) mg/dL Calcium (8.4-10.2) mg/dL Magnesium (1.6-2.3) mg/dL Total Bilirubin (0.2-1.3) mg/dL AST (14-36) U/L ALT (9-52) U/L Alkaline Phosphatase (38-126) U/L Total Creatine Kinase (30-135) U/L CK-MB (CK-2) (0.0-2.4) ng/mL CK-MB (CK-2) Rel Index Troponin I (0.000-0.034) ng/mL Total Protein (6.3-8.2) g/dL Albumin (3.5-5.0) g/dL Disposition Clinical Impression: Chest pain Disposition: HOME SELF-CARE Condition: Good Instructions: Chest Pain (ED) Is patient prescribed a controlled substance at d/c from ED?: No Referrals: Mary Baez MD [Primary Care Provider] - 1-2 days Time of Disposition: 12:34
[2018-07-15 10:41] LABS: Albumin 3.7 g/dL (3.5-5.0); Calcium 8.8 mg/dL (8.4-10.2); Magnesium 1.8 mg/dL (1.6-2.3); Potassium 3.9 mmol/L (3.5-5.1); Total Bilirubin 0.8 mg/dL (0.2-1.3); Total Protein 7.2 g/dL (6.3-8.2)
[2018-07-15 10:42] LABS: INR 2.2 (<1.2); Partial Thromboplastin Time 30.2 sec (22.0-30.0); Prothrombin Time 21.2 sec (9.0-12.0)
[2018-07-15] MEDS ORDERED: MORPHINE SULFATE 4 MG/ML SYRINGE IVP PRN (10:50)
[2018-07-15 10:52] LABS: Anisocytosis Moderate; Basophils % (A) 0 %; Eosinophils # (A) 0.1 k/uL (0-0.7); Eosinophils % (A) 2 %; HCT 33.7 % (34.0-46.0); Hypochromasia Marked; Lymphocytes # (A) 0.8 k/uL (1.0-4.8); Lymphocytes % (A) 12 %; MCH 25.9 pg (25.0-35.0); MCHC 29.7 g/dL (31.0-37.0); Microcytosis Slight; Monocytes # (A) 0.5 k/uL (0-1.0); Monocytes % (A) 7 %; Neutrophils # (A) 5.2 k/uL (1.3-7.7); Neutrophils % (A) 77 %; Platelet Count 293 k/uL (150-450); RBC 3.87 m/uL (3.80-5.40); RDW 20.9 % (11.5-15.5); WBC 6.7 k/uL (3.8-10.6)
[2018-07-15 11:10] LABS: Creatine Kinase MB 0.6 ng/mL (0.0-2.4)
[2018-07-15 11:11] LABS: Troponin I 0.041 ng/mL (0.000-0.034)
--- NOTE | 2018-07-15 12:13 | XR ---
EXAMINATION TYPE: XR chest 2V DATE OF EXAM: 07/15/2018 COMPARISON: 07/02/2018 INDICATION: Chest pain TECHNIQUE: Frontal and lateral views of the chest are obtained. FINDINGS: The heart size is enlarged. The pulmonary vasculature is normal. The lungs are clear. IMPRESSION: 1. Stable cardiomegaly
[2018-07-15 13:58] VITALS: BP 144/90; PULSE 90; RESP 18; TEMP 97.6
== END 2018-07-15 13:55 | disposition home or self-care (01) ==
LOC: EC 10:04
DX: R07.2 Precordial pain (principal); J45.909 Unspecified asthma, uncomplicated; I13.2 Hypertensive heart and chronic kidney disease with heart failure and with stage 5 chronic kidney disease, or end stage renal disease; N18.6 End stage renal disease; I50.9 Heart failure, unspecified; F32.9 Major depressive disorder, single episode, unspecified; F41.9 Anxiety disorder, unspecified; Q61.3 Polycystic kidney, unspecified; Z86.718 Personal history of other venous thrombosis and embolism; Z87.891 Personal history of nicotine dependence; Z99.2 Dependence on renal dialysis; Z94.0 Kidney transplant status; Z79.51 Long term (current) use of inhaled steroids; Z79.52 Long term (current) use of systemic steroids; Z79.899 Other long term (current) drug therapy; Z88.8 Allergy status to other drugs, medicaments and biological substances; Z53.8 Procedure and treatment not carried out for other reasons
CPT/HCPCS: 99285 ×2; 96374 ×2; 90935; 36415; 93005; 80053; 82550; 82553; 83735; 84484; 85025; 85610; 85730; 71046; J2270

== ENCOUNTER 2018-07-28 23:37 | Inpatient (IN) | payer BC, OTHER ==
--- NOTE | 2018-07-29 00:43 | ED ---
SOB HPI - General Source: patient Mode of arrival: ambulatory Limitations: no limitations <ArabellaglennOmar - Last Filed: 07/29/18 00:42> <Marsha Pat - Last Filed: 07/29/18 17:03> - General Chief Complaint: Recheck/Abnormal Lab/Rx Stated Complaint: NVD Time Seen by Provider: 07/29/18 00:08 - History of Present Illness Initial Comments: 28-year-old female with history of end-stage renal disease on dialysis, congestive heart failure presenting today for chief complaint of shortness of breath, nausea, vomiting, diarrhea. Patient states that she had infiltration during her hemodialysis on Wednesday in [place] while she was on vacation with family for the holidays. She states she is unable to receive full length of dialysis treatment due to this consultation. Patient states that she has dialysis later today however she has been experiencing shortness of breath, nausea, vomiting and diarrhea that began earlier this afternoon. Patient states is similar to when she has missed dialysis past. Patient states that her heart feels as though his racing, patient denies any chest pain. Patient denies any fever, chills. Patient denies any cough or frothy sputum. Patient denies any lower extremity edema. Patient does admit to facial swelling. Patient denies any headaches, dizziness. Upon arrival patient is tachypneic and tachycardic. Patient appears unwell. Patient fistula present in left UE. (Marsha Pat) - Related Data Home Medications Medication Instructions Recorded Confirmed Albuterol Sulfate [Proair Hfa] 2 puff INHALATION RT-Q6H PRN 01/22/16 07/29/18 Calcium Acetate [PhosLo] 1,334 mg PO AC-TID 05/01/18 07/29/18 ALPRAZolam [Xanax] 0.25 mg PO HS 05/28/18 07/29/18 Acetaminophen Tab [Tylenol] 1,000 mg PO DAILY 05/28/18 07/29/18 Budesonide/Formoterol Fumarate 2 puff INHALATION RT-Q12H 05/28/18 07/29/18 [Symbicort 80-4.5 Mcg Inhaler] Carvedilol [Coreg] 25 mg PO BID 05/28/18 07/29/18 Cinacalcet [Sensipar] 30 mg PO MOWEFR 05/28/18 07/29/18 NIFEdipine [NIFEdipine ER] 90 mg PO DAILY 05/28/18 07/29/18 Pantoprazole [Protonix] 40 mg PO DAILY 05/28/18 07/29/18 predniSONE 10 mg PO DAILY 05/28/18 07/29/18 Losartan [Cozaar] 25 mg PO DAILY 07/15/18 07/29/18 hydrALAZINE HCL [Apresoline] 50 mg PO BID 07/29/18 07/29/18 traZODone HCL 50 mg PO HS 07/29/18 07/29/18 Previous Rx's Medication Instructions Recorded Sodium Bicarbonate Tab 650 mg PO BID #60 tab 06/25/18 Ondansetron Odt [Zofran Odt] 4 mg PO Q8HR PRN #10 tab 07/02/18 Allergies Allergy/AdvReac Type Severity Reaction Status Date / Time hydralazine AdvReac Rapid Verified 07/29/18 07:38 Heart Rate Review of Systems ROS Other: All systems not noted in ROS Statement are negative. <Omar Coats - Last Filed: 07/29/18 00:42> ROS Other: All systems not noted in ROS Statement are negative. Constitutional: Denies: fever, chills, night sweats ENT: Denies: ear pain, throat pain Respiratory: Reports: dyspnea. Denies: cough, wheezes, hemoptysis, stridor Cardiovascular: Reports: palpitations, dyspnea on exertion, edema. Denies: chest pain Endocrine: Reports: fatigue Gastrointestinal: Reports: nausea, vomiting, diarrhea. Denies: abdominal pain, constipation, hematemesis, melena, hematochezia Genitourinary: Reports: other (pt unable to urinate since on dialysis). Denies : urgency, dysuria, frequency, hematuria Skin: Denies: rash, lesions Neurological: Reports: weakness, paresthesias (chronic parathesias). Denies: headache, numbness, confusion <Marsha Pat - Last Filed: 07/29/18 17:03> ROS Statement: Those systems with pertinent positive or pertinent negative responses have been documented in the HPI. Past Medical History Past Medical History: Asthma, Heart Failure, Hypertension, Renal Disease Additional Past Medical History / Comment(s): Pt recently admitted to [facility] on with acute on chronic kidney failure/valvular disease. Other hx; ESRD d/t being born with polycystic kidney disease, failed kidney transplant, hemodialysis, cardiomegally with EF 20-25%, cardiac cath 06/14/18 at [facility] to check coronary pressures-has L neck lump and R wrist lump since procedure that pt states are painful to touch, chronic anemia, vitamin D deficiency, chronic low back pain, ovarian cysts, irregular menses. History of Any Multi-Drug Resistant Organisms: None Reported Past Surgical History: Hernia Repair Additional Past Surgical History / Comment(s): 06/14/18 cardiac cath at [facility] to check coronary pressures, 11/15/09 Failed kidney transplant R pelvis, dialysis catheter in and out, current L upper arm AVG, supra pubic hernia repair, transvaginal mesh, wisdom teeth extraction with anesthesia. Past Anesthesia/Blood Transfusion Reactions: No Reported Reaction Additional Past Anesthesia/Blood Transfusion Reaction / Comment(s): Pt has received blood in past without reaction. Past Psychological History: Anxiety, Depression Smoking Status: Former smoker Past Alcohol Use History: None Reported Past Drug Use History: None Reported - Past Family History Father Family Medical History: No Reported History Additional Family Medical History / Comment(s): Father is healthy and is 59 yrs old. Mother Family Medical History: No Reported History Additional Family Medical History / Comment(s): Mother is healthy and is 57 yrs old. <Omar Coats - Last Filed: 07/29/18 00:42> General Exam Limitations: no limitations <Omar Coats - Last Filed: 07/29/18 00:42> <Marsha Pat - Last Filed: 07/29/18 17:03> - General Exam Comments Initial Comments: General: The patient is awake and alert, patient appears tachypneic. Patient does not appear well Eye: +3 mm pupils are equal, round and reactive to light, extra-ocular movements are intact. No nystagmus. There is normal conjunctiva bilaterally. No signs of icterus. Ears, nose, mouth and throat: There are moist mucous membranes and no oral lesions. Facial swelling noted. Neck: The neck is supple, there is no tenderness, noted JVD. Cardiovascular: There is a regular rhythm, increased rate. Noted murmur and gallop. Respiratory: Lungs base crackles upon auscultation, respirations are labored, breath sounds are equal. No wheezes, stridor, rales, or rhonchi. Gastrointestinal: Soft, distended, non-tender abdomen without masses or organomegaly noted. There is no rebound or guarding present. No CVA tenderness. Bowel sounds are unremarkable. Musculoskeletal: Normal ROM, no tenderness. Strength 5/5. Sensation intact. DP and radial pulses equal bilaterally 2+. Neurological: A&O x 3. CN II-XII intact, There are no obvious motor or sensory deficits. Coordination appears grossly intact. Speech is normal. Skin: Skin is warm and dry and no rashes or lesions are noted. No LE edema. Fistula present left UE. NO erythema. (-) [place] Psychiatric: Cooperative, appropriate mood & affect, normal judgment. (Marsha Pat) Course <Omar Coats - Last Filed: 07/29/18 00:42> <Marsha Pat - Last Filed: 07/29/18 17:03> Vital Signs 07/28/18 07/29/18 07/29/18 23:50 00:39 01:19 Temperature 98.2 F Pulse Rate 101 H 106 H 117 H Respiratory 20 16 16 Rate Blood Pressure 182/117 143/107 127/92 O2 Sat by Pulse 93 L 98 Oximetry 07/29/18 02:36 Temperature Pulse Rate 98 Respiratory 16 Rate Blood Pressure 122/76 O2 Sat by Pulse 92 L Oximetry - Reevaluation(s) Reevaluation #1: 07/29/18 04:00 dialysis nurse present to perform bedside hemodialysis (Marsha Pat) Medical Decision Making <Omar Coats - Last Filed: 07/29/18 00:42> - Lab Data Result diagrams: 07/29/18 00:20 07/29/18 09:45 <Marsha Pat - Last Filed: 07/29/18 17:03> - Medical Decision Making I saw this patient in conjunction with the physician stores assistant. I performed independent history and physical exam. Agree with case management. The patient does have crackles at the bases bilaterally as well as S3 and S4 gallop. (Omar Coats) Patient hemodynamically stable. Pt SOB with N/V/D concerning for electrolyte derangement, CHF exacerbation. Laboratory studies revealed K+ 7.2. Pt given calcium to stabilize heart membrane. EKG revealed peaking of T waves. BNP and troponin elevated, most likely due to ESRD with no excretion and hx of HF. Gallop on exam. CXR no acute findings- consistent with heart failure without exacerbation. Pt needs emergent dialysis given EKG findings, sxs and K+ of 7.2. Nephrology recommended bicarb, insulin with D50 until dialysis was performed, in addition to calcium. Pt given bedside dialysis. Dr. Coats will resume care until patient transferred to admitting floor.Accepting physician Dr. Josue, critical care on consult and nephrology. (Marsha Pat) - Lab Data Lab Results 07/29/18 07/29/18 07/29/18 Range/Units 00:20 00:20 00:20 WBC 10.2 (3.8-10.6) k/uL RBC 4.58 (3.80-5.40) m/uL Hgb 11.8 (11.4-16.0) gm/dL Hct 40.6 (34.0-46.0) % MCV 88.7 (80.0-100.0) fL MCH 25.7 (25.0-35.0) pg MCHC 29.0 L (31.0-37.0) g/dL RDW 20.6 H (11.5-15.5) % Plt Count 258 (150-450) k/uL Neutrophils % 75 % Lymphocytes % 10 % Monocytes % 5 % Eosinophils % 6 % Basophils % 1 % Neutrophils # 7.7 (1.3-7.7) k/uL Lymphocytes # 1.1 (1.0-4.8) k/uL Monocytes # 0.5 (0-1.0) k/uL Eosinophils # 0.7 (0-0.7) k/uL Basophils # 0.1 (0-0.2) k/uL Hypochromasia Marked Anisocytosis Moderate PT (9.0-12.0) sec INR (<1.2) APTT (22.0-30.0) sec Sodium 136 L (137-145) mmol/L Potassium 7.2 H* (3.5-5.1) mmol/L Chloride 98 (98-107) mmol/L Carbon Dioxide 22 (22-30) mmol/L Anion Gap 16 mmol/L BUN 88 H (7-17) mg/dL Creatinine 9.36 H* (0.52-1.04) mg/dL Est GFR (CKD-EPI)AfAm 6 (>60 ml/min/1.73 sqM) Est GFR (CKD-EPI)NonAf 5 (>60 ml/min/1.73 sqM) Glucose 92 (74-99) mg/dL Calcium 8.8 (8.4-10.2) mg/dL Magnesium 2.1 (1.6-2.3) mg/dL Total Bilirubin 1.0 (0.2-1.3) mg/dL AST 40 H (14-36) U/L ALT 43 (9-52) U/L Alkaline Phosphatase 102 (38-126) U/L Total Creatine Kinase 143 H (30-135) U/L CK-MB (CK-2) 1.2 (0.0-2.4) ng/mL CK-MB (CK-2) Rel Index 0.8 Troponin I 0.056 H* (0.000-0.034) ng/mL NT-Pro-B Natriuret Pep pg/mL Total Protein 8.2 (6.3-8.2) g/dL Albumin 4.4 (3.5-5.0) g/dL 07/29/18 07/29/18 Range/Units 00:20 00:20 WBC (3.8-10.6) k/uL RBC (3.80-5.40) m/uL Hgb (11.4-16.0) gm/dL Hct (34.0-46.0) % MCV (80.0-100.0) fL MCH (25.0-35.0) pg MCHC (31.0-37.0) g/dL RDW (11.5-15.5) % Plt Count (150-450) k/uL Neutrophils % % Lymphocytes % % Monocytes % % Eosinophils % % Basophils % % Neutrophils # (1.3-7.7) k/uL Lymphocytes # (1.0-4.8) k/uL Monocytes # (0-1.0) k/uL Eosinophils # (0-0.7) k/uL Basophils # (0-0.2) k/uL Hypochromasia Anisocytosis PT 12.8 H (9.0-12.0) sec INR 1.2 H (<1.2) APTT 28.0 (22.0-30.0) sec Sodium (137-145) mmol/L Potassium (3.5-5.1) mmol/L Chloride (98-107) mmol/L Carbon Dioxide (22-30) mmol/L Anion Gap mmol/L BUN (7-17) mg/dL Creatinine (0.52-1.04) mg/dL Est GFR (CKD-EPI)AfAm (>60 ml/min/1.73 sqM) Est GFR (CKD-EPI)NonAf (>60 ml/min/1.73 sqM) Glucose (74-99) mg/dL Calcium (8.4-10.2) mg/dL Magnesium (1.6-2.3) mg/dL Total Bilirubin (0.2-1.3) mg/dL AST (14-36) U/L ALT (9-52) U/L Alkaline Phosphatase (38-126) U/L Total Creatine Kinase (30-135) U/L CK-MB (CK-2) (0.0-2.4) ng/mL CK-MB (CK-2) Rel Index Troponin I (0.000-0.034) ng/mL NT-Pro-B Natriuret Pep 422037 pg/mL Total Protein (6.3-8.2) g/dL Albumin (3.5-5.0) g/dL - EKG Data EKG Comments: Ventricular rate 99 bpm, DE interval 204 ms, QRS duration 84 ms, QT/QTC 370/474 ms this is normal sinus left ventricular hypertrophy as well as left atrial enlargement. Nonspecific ST and T-wave abnormalities are noted including peaking of T waves noted. QT prolonged. (Marsha Pat) Disposition <Omar Coats - Last Filed: 07/29/18 00:42> Is patient prescribed a controlled substance at d/c from ED?: No Time of Disposition: 02:41 Decision to Admit Reason: Admit from EC Decision Date: 07/29/18 Decision Time: 02:41 <Marsha Pat - Last Filed: 07/29/18 17:03> Clinical Impression: Hyperkalemia, ESRD (end stage renal disease) on dialysis Disposition: ADMITTED IP TO THIS HOSP Condition: Critical
[2018-07-29] MEDS ORDERED: NITROGLYCERIN OINT 1 INCH/GM PACKET TOPICAL STA (00:44)
[2018-07-29] MEDS ORDERED: LOSARTAN 25 MG TAB PO STA (00:45)
[2018-07-29] MEDS ORDERED: NIFEdipine XL 90 MG TAB.ER.24 PO STA ×2 (00:45→17:47)
[2018-07-29] MEDS ORDERED: HYDROmorphone 0.5 MG/0.5 ML SYRINGE IVP STA (00:46)
[2018-07-29 00:51] LABS: Albumin 4.4 g/dL (3.5-5.0); Calcium 8.8 mg/dL (8.4-10.2); Magnesium 2.1 mg/dL (1.6-2.3); Total Protein 8.2 g/dL (6.3-8.2)
[2018-07-29 00:56] LABS: Anisocytosis Moderate; Basophils # (A) 0.1 k/uL (0-0.2); Basophils % (A) 1 %; Eosinophils # (A) 0.7 k/uL (0-0.7); Eosinophils % (A) 6 %; HCT 40.6 % (34.0-46.0); HGB 11.8 gm/dL (11.4-16.0); Hypochromasia Marked; Lymphocytes # (A) 1.1 k/uL (1.0-4.8); Lymphocytes % (A) 10 %; MCH 25.7 pg (25.0-35.0); MCV 88.7 fL (80.0-100.0); Monocytes # (A) 0.5 k/uL (0-1.0); Monocytes % (A) 5 %; Neutrophils # (A) 7.7 k/uL (1.3-7.7); Neutrophils % (A) 75 %; Platelet Count 258 k/uL (150-450); RBC 4.58 m/uL (3.80-5.40); RDW 20.6 % (11.5-15.5); WBC 10.2 k/uL (3.8-10.6)
--- NOTE | 2018-07-29 01:05 | XR ---
EXAMINATION TYPE: XR chest 2V DATE OF EXAM: 07/29/2018 COMPARISON: 07/15/2018 HISTORY: Difficulty breathing TECHNIQUE: Frontal and lateral views of the chest are obtained. FINDINGS: There is no focal air space opacity, pleural effusion, or pneumothorax seen. The cardiac silhouette size is within normal limits. The osseous structures are intact. Heart is moderately enlarged. There is pulmonary vascular congestion. There are chest leads. There is probably small pleural effusions. IMPRESSION: There is evidence of congestive heart failure without much change compared to last exam .
[2018-07-29 01:13] LABS: Potassium 7.2 mmol/L (3.5-5.1)
[2018-07-29 01:20] LABS: INR 1.2 (<1.2); Prothrombin Time 12.8 sec (9.0-12.0)
[2018-07-29 01:37] LABS: Creatine Kinase MB 1.2 ng/mL (0.0-2.4)
[2018-07-29] MEDS ORDERED: CALCIUM GLUCONATE 1,000 MG in SODIUM CHLORIDE 0.9% 100 ML IVPB ONE (01:40)
[2018-07-29] MEDS ORDERED: INSULIN REGULAR 100 UNIT/ML VIAL IV STA (01:47)
[2018-07-29] MEDS ORDERED: DEXTROSE 50%-WATER 50 ML SYRINGE IVP STA (01:48)
[2018-07-29] MEDS ORDERED: SODIUM BICARB 8.4% 50 ML SYR (1 MEQ/ML) IV ONE (01:48)
[2018-07-29 02:11] LABS: Troponin I 0.056 ng/mL (0.000-0.034)
[2018-07-29] MEDS ORDERED: NALOXONE 0.4 MG/ML 1 ML VIAL IV PRN (02:33)
[2018-07-29 04:36] VITALS: BMI 22.9
[2018-07-29] MEDS ORDERED: ACETAMINOPHEN TAB 325 MG TAB PO PRN (06:51)
--- NOTE | 2018-07-29 09:41 | P.NPCON ---
History of Present Illness - Reason for Consult end stage renal disease - History of Present Illness Reason for consultation: End-stage renal disease History of present illness: Patient is a 28-year-old female seen in consultation for end-stage renal disease. She is maintained on hemodialysis on a Wednesday schedule via left upper extremity AV fistula. Patient has a history of failed renal transplant. Patient states she went for dialysis in [place] on Wednesday but the treatment was cut short due to infiltration of for access. Patient states she only had about 1.3 L removed. Last night the patient became short of breath and was unable to lay flat. Chest x-ray was suggestive of vascular congestion. Potassium level was 7.2. She underwent emergent hemodialysis last night. Dyspnea is better. She was also having vomiting and diarrhea yesterday which seems to have improved. She has history of systolic CHF with ejection fraction of 20-25% with severe tricuspid regurgitation and severe pulmonary hypertension. Blood pressure stable. No fever or chills. Vital signs are stable. General: The patient appeared well nourished and normally developed. HEENT: Head exam is unremarkable. Neck is without jugular venous distension. LUNGS: Lungs are clear to auscultation and percussion. Breath sounds decreased. HEART: Rate and Rhythm are regular. First and second heart sounds normal. No murmurs, rubs or gallops. ABDOMEN: Abdominal exam reveals normal bowel sounds. Non-tender and non- distended. No evidence of peritonitis. EXTREMITITES: No clubbing, cyanosis, or edema. Past Medical History Past Medical History: Asthma, Heart Failure, Hypertension, Renal Disease Additional Past Medical History / Comment(s): Pt recently admitted to [facility] on with acute on chronic kidney failure/valvular disease. Other hx; ESRD d/t being born with polycystic kidney disease, failed kidney transplant, hemodialysis, cardiomegally with EF 20-25%, cardiac cath 06/14/18 at [facility] to check coronary pressures-has L neck lump and R wrist lump since procedure that pt states are painful to touch, chronic anemia, vitamin D deficiency, chronic low back pain, ovarian cysts, irregular menses. History of Any Multi-Drug Resistant Organisms: None Reported Past Surgical History: Heart Catheterization, Hernia Repair Additional Past Surgical History / Comment(s): 06/14/18 cardiac cath at [facility] to check coronary pressures, 11/15/09 Failed kidney transplant R pelvis, dialysis catheter in and out, current L upper arm AVG, supra pubic hernia repair, transvaginal mesh, wisdom teeth extraction with anesthesia. Past Anesthesia/Blood Transfusion Reactions: No Reported Reaction Additional Past Anesthesia/Blood Transfusion Reaction / Comment(s): Pt has received blood in past without reaction. Past Psychological History: Anxiety, Depression Additional Psychological History / Comment(s): Pt resides with family. She is independent. She drives. She is disabled. She states she has anxiety and depression but no suicidal thoughts/ idealations or plans. She had one suicide attempt with overdose in 2012. Smoking Status: Never smoker Past Alcohol Use History: None Reported Additional Past Alcohol Use History / Comment(s): Pt states she quit smoking in 2015. Past Drug Use History: None Reported - Past Family History Father Family Medical History: No Reported History Additional Family Medical History / Comment(s): Father is healthy and is 59 yrs old. Mother Family Medical History: No Reported History Additional Family Medical History / Comment(s): Mother is healthy and is 57 yrs old. Medications and Allergies Home Medications Medication Instructions Recorded Confirmed Type Albuterol Sulfate [Proair Hfa] 2 puff INHALATION RT-Q6H PRN 01/22/16 07/29/18 History Calcium Acetate [PhosLo] 1,334 mg PO AC-TID 05/01/18 07/29/18 History ALPRAZolam [Xanax] 0.25 mg PO HS 05/28/18 07/29/18 History Acetaminophen Tab [Tylenol] 1,000 mg PO DAILY 05/28/18 07/29/18 History Budesonide/Formoterol Fumarate 2 puff INHALATION RT-Q12H 05/28/18 07/29/18 History [Symbicort 80-4.5 Mcg Inhaler] Carvedilol [Coreg] 25 mg PO BID 05/28/18 07/29/18 History Cinacalcet [Sensipar] 30 mg PO MOWEFR 05/28/18 07/29/18 History NIFEdipine [NIFEdipine ER] 90 mg PO DAILY 05/28/18 07/29/18 History Pantoprazole [Protonix] 40 mg PO DAILY 05/28/18 07/29/18 History predniSONE 10 mg PO DAILY 05/28/18 07/29/18 History Sodium Bicarbonate Tab 650 mg PO BID #60 tab 06/25/18 07/29/18 Rx Spironolactone [Aldactone] 25 mg PO DAILY #30 tab 06/25/18 07/29/18 Rx Ondansetron Odt [Zofran Odt] 4 mg PO Q8HR PRN #10 tab 07/02/18 07/29/18 Rx Losartan [Cozaar] 25 mg PO DAILY 07/15/18 07/29/18 History hydrALAZINE HCL [Apresoline] 50 mg PO BID 07/29/18 07/29/18 History traZODone HCL 50 mg PO HS 07/29/18 07/29/18 History Allergies Allergy/AdvReac Type Severity Reaction Status Date / Time hydralazine AdvReac Rapid Verified 07/29/18 07:38 Heart Rate Physical Exam Vitals: Vital Signs Temp Pulse Pulse Resp BP BP Pulse Ox 07/29/18 07:56 97.9 F 109 H 18 158/82 90 L 07/29/18 05:00 97.6 F 99 18 142/82 94 L 07/29/18 02:36 98 16 122/76 92 L 07/29/18 01:19 117 H 16 127/92 07/29/18 00:39 106 H 16 143/107 98 07/28/18 23:50 98.2 F 101 H 20 182/117 93 L Intake and Output 07/28/18 07/29/18 07/29/18 22:59 06:59 14:59 Other: Voiding Method Toilet Toilet Weight 57 kg Results - Lab Results Most recent lab results Calcium 8.8 mg/dL (8.4-10.2) 07/29/18 00:20 Magnesium 2.1 mg/dL (1.6-2.3) 07/29/18 00:20 07/29/18 00:20 07/29/18 00:20 Assessment and Plan Plan: Assessment: 1. End-stage renal disease maintained on hemodialysis on a Wednesday schedule via left upper extremity AV fistula. 2. Hyperkalemia secondary to chronic kidney disease and incomplete dialysis on Wednesday. 3. History of failed renal transplant. Currently maintained on prednisone 10 mg daily. 4. Hypertension with chronic kidney disease. 5. Volume overload. 6. Systolic CHF with ejection fraction of 20-25% with severe tricuspid regurgitation. 7. Severe pulmonary hypertension. 8. Chronic kidney disease mineral bone disease. Plan: Check potassium level now. Another hemodialysis treatment today with goal 3 L ultrafiltration. Resume PhosLo and prednisone. Thank you for the consultation. I will continue to follow the patient with you during her hospital stay.
[2018-07-29] MEDS ORDERED: predniSONE 10 MG TAB PO SCH (09:45)
[2018-07-29 10:08] LABS: Calcium 8.8 mg/dL (8.4-10.2); Potassium 5.1 mmol/L (3.5-5.1)
[2018-07-29] MEDS: traMADol 50 MG TAB PO SCH ×2 (10:43→17:17)
--- NOTE | 2018-07-29 11:13 | P.HPIM ---
History of Present Illness 28-year-old female with history of failed renal transplant for polycystic kidney disease end-stage renal disease on hemodialysis follows up Wednesday schedule had only half session of dialysis in [place] on Wednesday. Patient given with volume overload. Which are as of breath secondary to pulmonary edema from missed hemodialysis, patient received hemodialysis today will receive another session of hemodialysis patient is not short of breath anymore patient denied any fever chills nausea vomiting. Patient also has poor ejection fraction of 20-25%for which patient is on Aldactone losartan patient's potassium is 7.1 secondary to missing hemodialysis being on losartan and Aldactone discussed with the nephrology on phone that recommended to continue losartan and we'll repeat the basic metabolic profile in 3 days Aldactone although will be discontinued temporally for now when she follows with nephrology for potassium is within normal limits patient will be resumed on Aldactone after hemodialysis if her potassium has come down to 5 when she came in it was 7.2 Review of Systems PHYSICAL EXAMINATION: GENERAL: The patient is alert and oriented x3, not in any acute distress. Well developed, well nourished. mild pain in bilateral upper limbs and lower limbs HEENT: Pupils are round and equally reacting to light. EOMI. No scleral icterus. No conjunctival pallor. Normocephalic, atraumatic. No pharyngeal erythema. No thyromegaly. CARDIOVASCULAR: S1 and S2 present. No murmurs, rubs, or gallops. PULMONARY: Chest is clear to auscultation, no wheezing or crackles. ABDOMEN: Soft, nontender, nondistended, normoactive bowel sounds. No palpable organomegaly. MUSCULOSKELETAL: No joint swelling or deformity. EXTREMITIES: No cyanosis, clubbing, or pedal edema. NEUROLOGICAL: Gross neurological examination did not reveal any focal deficits. SKIN: No rashes. Past Medical History Past Medical History: Asthma, Heart Failure, Hypertension, Renal Disease Additional Past Medical History / Comment(s): Pt recently admitted to [facility] on with acute on chronic kidney failure/valvular disease. Other hx; ESRD d/t being born with polycystic kidney disease, failed kidney transplant, hemodialysis, cardiomegally with EF 20-25%, cardiac cath 06/14/18 at [facility] [place] to check coronary pressures-has L neck lump and R wrist lump since procedure that pt states are painful to touch, chronic anemia, vitamin D deficiency, chronic low back pain, ovarian cysts, irregular menses. History of Any Multi-Drug Resistant Organisms: None Reported Past Surgical History: Heart Catheterization, Hernia Repair Additional Past Surgical History / Comment(s): 06/14/18 cardiac cath at [facility] [place] to check coronary pressures, 11/15/09 Failed kidney transplant R pelvis, dialysis catheter in and out, current L upper arm AVG, supra pubic hernia repair, transvaginal mesh, wisdom teeth extraction with anesthesia. Past Anesthesia/Blood Transfusion Reactions: No Reported Reaction Additional Past Anesthesia/Blood Transfusion Reaction / Comment(s): Pt has received blood in past without reaction. Past Psychological History: Anxiety, Depression Additional Psychological History / Comment(s): Pt resides with family. She is independent. She drives. She is disabled. She states she has anxiety and depression but no suicidal thoughts/ idealations or plans. She had one suicide attempt with overdose in 2012. Smoking Status: Never smoker Past Alcohol Use History: None Reported Additional Past Alcohol Use History / Comment(s): Pt states she quit smoking in 2015. Past Drug Use History: None Reported - Past Family History Father Family Medical History: No Reported History Additional Family Medical History / Comment(s): Father is healthy and is 59 yrs old. Mother Family Medical History: No Reported History Additional Family Medical History / Comment(s): Mother is healthy and is 57 yrs old. Medications and Allergies Home Medications Medication Instructions Recorded Confirmed Type Albuterol Sulfate [Proair Hfa] 2 puff INHALATION RT-Q6H PRN 01/22/16 07/29/18 History Calcium Acetate [PhosLo] 1,334 mg PO AC-TID 05/01/18 07/29/18 History ALPRAZolam [Xanax] 0.25 mg PO HS 05/28/18 07/29/18 History Acetaminophen Tab [Tylenol] 1,000 mg PO DAILY 05/28/18 07/29/18 History Budesonide/Formoterol Fumarate 2 puff INHALATION RT-Q12H 05/28/18 07/29/18 History [Symbicort 80-4.5 Mcg Inhaler] Carvedilol [Coreg] 25 mg PO BID 05/28/18 07/29/18 History Cinacalcet [Sensipar] 30 mg PO MOWEFR 05/28/18 07/29/18 History NIFEdipine [NIFEdipine ER] 90 mg PO DAILY 05/28/18 07/29/18 History Pantoprazole [Protonix] 40 mg PO DAILY 05/28/18 07/29/18 History predniSONE 10 mg PO DAILY 05/28/18 07/29/18 History Sodium Bicarbonate Tab 650 mg PO BID #60 tab 06/25/18 07/29/18 Rx Ondansetron Odt [Zofran Odt] 4 mg PO Q8HR PRN #10 tab 07/02/18 07/29/18 Rx Losartan [Cozaar] 25 mg PO DAILY 07/15/18 07/29/18 History hydrALAZINE HCL [Apresoline] 50 mg PO BID 07/29/18 07/29/18 History traZODone HCL 50 mg PO HS 07/29/18 07/29/18 History Allergies Allergy/AdvReac Type Severity Reaction Status Date / Time hydralazine AdvReac Rapid Verified 07/29/18 07:38 Heart Rate Physical Exam Vitals: Vital Signs Temp Pulse Pulse Resp BP BP Pulse Ox 07/29/18 07:56 97.9 F 109 H 18 158/82 90 L 07/29/18 05:00 97.6 F 99 18 142/82 94 L 07/29/18 02:36 98 16 122/76 92 L 07/29/18 01:19 117 H 16 127/92 07/29/18 00:39 106 H 16 143/107 98 07/28/18 23:50 98.2 F 101 H 20 182/117 93 L Intake and Output 07/28/18 07/29/18 07/29/18 22:59 06:59 14:59 Other: Voiding Method Toilet Toilet Weight 57 kg PHYSICAL EXAMINATION: GENERAL: The patient is alert and oriented x3, not in any acute distress. thin built female HEENT: Pupils are round and equally reacting to light. EOMI. No scleral icterus. No conjunctival pallor. Normocephalic, atraumatic. No pharyngeal erythema. No thyromegaly. CARDIOVASCULAR: S1 and S2 present. No murmurs, rubs, or gallops. PULMONARY: Chest is clear to auscultation, no wheezing or crackles. ABDOMEN: Soft, nontender, nondistended, normoactive bowel sounds. No palpable organomegaly. MUSCULOSKELETAL: No joint swelling or deformity. EXTREMITIES: No cyanosis, clubbing, or pedal edema. NEUROLOGICAL: Gross neurological examination did not reveal any focal deficits. SKIN: No rashes. Results CBC & Chem 7: 07/29/18 00:20 07/29/18 09:45 Labs: Abnormal Lab Results - Last 24 Hours (Table) 07/29/18 07/29/18 07/29/18 Range/Units 00:20 00:20 00:20 MCHC 29.0 L (31.0-37.0) g/dL RDW 20.6 H (11.5-15.5) % PT (9.0-12.0) sec INR (<1.2) Sodium 136 L (137-145) mmol/L Potassium 7.2 H* (3.5-5.1) mmol/L Chloride (98-107) mmol/L BUN 88 H (7-17) mg/dL Creatinine 9.36 H* (0.52-1.04) mg/dL AST 40 H (14-36) U/L Total Creatine Kinase 143 H (30-135) U/L Troponin I 0.056 H* (0.000-0.034) ng/mL 07/29/18 07/29/18 Range/Units 00:20 09:45 MCHC (31.0-37.0) g/dL RDW (11.5-15.5) % PT 12.8 H (9.0-12.0) sec INR 1.2 H (<1.2) Sodium (137-145) mmol/L Potassium (3.5-5.1) mmol/L Chloride 96 L (98-107) mmol/L BUN 54 H (7-17) mg/dL Creatinine 6.89 H (0.52-1.04) mg/dL AST (14-36) U/L Total Creatine Kinase (30-135) U/L Troponin I (0.000-0.034) ng/mL Thrombosis Risk Factor Assmnt - Choose All That Apply Any of the Below Risk Factors Present?: Yes Each Factor Represents 1 point: Heart failure (<1month) Thrombosis Risk Factor Assessment Total Risk Factor Score: 1 Thrombosis Risk Factor Assessment Level: Low Risk Assessment and Plan Plan: -volume overload pulmonary edema secondary to end-stage his renal disease missing hemodialysis after hemodialysis today as patient's symptoms improved patient will be discharged. -congestive heart failure chronic systolic dysfunction with mild acute exacerbation expected to improve with the dialysis patient will be discharged today after hemodialysis.her EF is 20-25% losartan will be resumed upon discharge -History of failed renal transplant -Hypertension -History of polycystic kidney disease -Severe pulmonary hypertension -Metabolic bone disease from end-stage renal disease continue with the phosphate binders
--- NOTE | 2018-07-29 11:14 | P.DS ---
Providers Date of admission: 07/29/18 03:27 Attending physician: Hasmukh Josue Consults: 07/29/18 02:33 Consult Physician Stat Consulting Provider: Robin Thompson Consult Reason/Comments: ESRD Do you want consulting provider notified?: Already Contacted Primary care physician: Nestor Frias [facility] Course: please refer to my HPI Patient Condition at Discharge: Critical Plan - Discharge Summary Discharge Rx Participant: No New Discharge Prescriptions: Discontinued Spironolactone [Aldactone] 25 mg PO DAILY #30 tab No Action Albuterol Sulfate [Proair Hfa] 2 puff INHALATION RT-Q6H PRN PRN Reason: Shortness Of Breath Calcium Acetate [PhosLo] 1,334 mg PO AC-TID Cinacalcet [Sensipar] 30 mg PO MOWEFR ALPRAZolam [Xanax] 0.25 mg PO HS predniSONE 10 mg PO DAILY Pantoprazole [Protonix] 40 mg PO DAILY NIFEdipine [NIFEdipine ER] 90 mg PO DAILY Carvedilol [Coreg] 25 mg PO BID Budesonide/Formoterol Fumarate [Symbicort 80-4.5 Mcg Inhaler] 2 puff INHALATION RT-Q12H Acetaminophen Tab [Tylenol] 1,000 mg PO DAILY Sodium Bicarbonate Tab 650 mg PO BID #60 tab Ondansetron Odt [Zofran Odt] 4 mg PO Q8HR PRN #10 tab PRN Reason: Nausea Losartan [Cozaar] 25 mg PO DAILY traZODone HCL 50 mg PO HS hydrALAZINE HCL [Apresoline] 50 mg PO BID Discharge Medication List Albuterol Sulfate [Proair Hfa] 2 puff INHALATION RT-Q6H PRN 01/22/16 [History] Calcium Acetate [PhosLo] 1,334 mg PO AC-TID 05/01/18 [History] ALPRAZolam [Xanax] 0.25 mg PO HS 05/28/18 [History] Acetaminophen Tab [Tylenol] 1,000 mg PO DAILY 05/28/18 [History] Budesonide/Formoterol Fumarate [Symbicort 80-4.5 Mcg Inhaler] 2 puff INHALATION RT-Q12H 05/28/18 [History] Carvedilol [Coreg] 25 mg PO BID 05/28/18 [History] Cinacalcet [Sensipar] 30 mg PO MOWEFR 05/28/18 [History] NIFEdipine [NIFEdipine ER] 90 mg PO DAILY 05/28/18 [History] Pantoprazole [Protonix] 40 mg PO DAILY 05/28/18 [History] predniSONE 10 mg PO DAILY 05/28/18 [History] Sodium Bicarbonate Tab 650 mg PO BID #60 tab 06/25/18 [Rx] Ondansetron Odt [Zofran Odt] 4 mg PO Q8HR PRN #10 tab 07/02/18 [Rx] Losartan [Cozaar] 25 mg PO DAILY 07/15/18 [History] hydrALAZINE HCL [Apresoline] 50 mg PO BID 07/29/18 [History] traZODone HCL 50 mg PO HS 07/29/18 [History] Follow up Appointment(s)/Referral(s): Mary Baez MD [Primary Care Provider] - 3 Days Robin Thompson DO [STAFF PHYSICIAN] - 1 Week (Follow up with nephrology at dialysis.) Ambulatory/Diagnostic Orders: Basic Metabolic Panel [LAB.AMB] Time Frame: 3 Days, Location: None Selected Patient Instructions/Handouts: Potassium Content of Foods List (DC), Hyperkalemia (DC) Discharge Disposition: HOME SELF-CARE
[2018-07-29] MEDS: CALCIUM ACETATE 667 MG CAP PO SCH ×3 (13:03→17:20)
[2018-07-29] MEDS ORDERED: ONDANSETRON 4 MG/2 ML VIAL IVP PRN (14:39)
[2018-07-29] MEDS ORDERED: hydrALAZINE HCL 20 MG/ML 1 ML VIAL IVP PRN (18:47)
[2018-07-29] MEDS ORDERED: CARVEDILOL 12.5 MG TAB PO SCH (19:00)
[2018-07-29] MEDS ORDERED: hydrALAZINE HCL 50 MG TAB PO SCH (21:00)
[2018-07-29 21:38] VITALS: PULSE 94; RESP 16; TEMP 98.3
[2018-07-29 21:42] VITALS: BP 150/88
== END 2018-07-29 21:20 | disposition home or self-care (01) | DRG 291 ==
LOC: EC 23:37 → 3SCARD 07-29 03:27
PROVIDERS: ADMIT Internal Medicine; ATTEND Internal Medicine
PROC: 5A1D70Z Performance of Urinary Filtration, Intermittent, Less than 6 Hours Per Day (ICD-10-PCS; principal; 2018-07-29)
PROC: 5A1D70Z Performance of Urinary Filtration, Intermittent, Less than 6 Hours Per Day (ICD-10-PCS; 2018-07-29)
DX: I13.2 Hypertensive heart and chronic kidney disease with heart failure and with stage 5 chronic kidney disease, or end stage renal disease (principal); I50.23 Acute on chronic systolic (congestive) heart failure; N18.6 End stage renal disease; T86.12 Kidney transplant failure; Q61.3 Polycystic kidney, unspecified; I27.20 Pulmonary hypertension, unspecified; E87.5 Hyperkalemia; I07.1 Rheumatic tricuspid insufficiency; E83.9 Disorder of mineral metabolism, unspecified; F32.9 Major depressive disorder, single episode, unspecified; F41.9 Anxiety disorder, unspecified; J45.909 Unspecified asthma, uncomplicated; D64.9 Anemia, unspecified; E55.9 Vitamin D deficiency, unspecified; G89.29 Other chronic pain; M54.5 Low back pain; N92.6 Irregular menstruation, unspecified; Z91.15 Patient's noncompliance with renal dialysis; Z99.2 Dependence on renal dialysis; Z79.51 Long term (current) use of inhaled steroids; Z79.52 Long term (current) use of systemic steroids; Z79.899 Other long term (current) drug therapy; Z87.891 Personal history of nicotine dependence; Z91.5 Personal history of self-harm; Z88.8 Allergy status to other drugs, medicaments and biological substances
CPT/HCPCS: 36415; 71046; 80048; 80053; 82550; 82553; 83735; 83880; 84484; 85025; 85610; 85730; 90935; 93005; 96365; 96375; 99285

== ENCOUNTER 2018-08-02 14:51 | Inpatient (IN) | payer BC, OTHER ==
[2018-08-02] MEDS ORDERED: ONDANSETRON 4 MG/2 ML VIAL IVP STA (16:36)
[2018-08-02] MEDS ORDERED: HYDROmorphone 1 MG/ML 1 ML SYRINGE IVP STA (16:36)
[2018-08-02] MEDS ORDERED: SODIUM CHLORIDE 0.9% 1,000 ML IV STA (16:36)
[2018-08-02] MEDS ORDERED: SODIUM CHLORIDE 0.9% 500 ML 500 ML IV STA (16:36)
[2018-08-02 17:02] LABS: Anisocytosis Slight; Basophils # (A) 0.1 k/uL (0-0.2); Basophils % (A) 1 %; Eosinophils # (A) 0.2 k/uL (0-0.7); Eosinophils % (A) 2 %; HCT 39.6 % (34.0-46.0); HGB 12.1 gm/dL (11.4-16.0); Hypochromasia Moderate; Lymphocytes # (A) 1.5 k/uL (1.0-4.8); Lymphocytes % (A) 17 %; MCH 26.4 pg (25.0-35.0); MCHC 30.7 g/dL (31.0-37.0); MCV 86.1 fL (80.0-100.0); Mean Platelet Volume 7.3; Microcytosis Slight; Monocytes # (A) 0.4 k/uL (0-1.0); Monocytes % (A) 5 %; Neutrophils # (A) 6.4 k/uL (1.3-7.7); Neutrophils % (A) 73 %; Platelet Count 261 k/uL (150-450); RDW 19.9 % (11.5-15.5); WBC 8.8 k/uL (3.8-10.6)
[2018-08-02 17:10] LABS: INR 1.2 (<1.2); Partial Thromboplastin Time 29.6 sec (22.0-30.0); Prothrombin Time 12.7 sec (9.0-12.0)
[2018-08-02 17:13] LABS: Albumin 4.7 g/dL (3.5-5.0); Calcium 9.6 mg/dL (8.4-10.2); Magnesium 2.5 mg/dL (1.6-2.3); Total Bilirubin 0.9 mg/dL (0.2-1.3); Total Protein 8.9 g/dL (6.3-8.2)
--- NOTE | 2018-08-02 17:15 | ED ---
Weakness HPI - General Chief complaint: Recheck/Abnormal Lab/Rx Stated complaint: Nausea/diarrhea Time Seen by Provider: 08/02/18 16:12 Source: patient, RN notes reviewed, old records reviewed Mode of arrival: ambulatory Limitations: no limitations - History of Present Illness Initial comments: This is a 28-year-old female the ER for evaluation. Tissues presented to ER for evaluation regards to weakness pain back pain leg pain hip pain knee pain joint pain arm pain leg pain, chronic pain. Patient is history of dialysis, not on any current long-term pain therapy. Patient states she's had these symptoms for about 6 months is been on dialysis for about 9 months. Denies any other change in diet no recent change in medications denies fevers. She does have nausea and is unable to take medications at home currently. MD Complaint: generalized weakness (Generalized pain), lack of energy -: month(s) Location: generalized Severity: moderate Severity scale (1-10): 7 Quality: numbness, aching Consistency: intermittent Improves with: none Worsens with: medication Context: history of similar Associated Symptoms: denies other symptoms - Related Data Home Medications Medication Instructions Recorded Confirmed Albuterol Sulfate [Proair Hfa] 2 puff INHALATION RT-Q6H PRN 01/22/16 08/02/18 Calcium Acetate [PhosLo] 1,334 mg PO AC-TID 05/01/18 08/02/18 ALPRAZolam [Xanax] 0.25 mg PO HS 05/28/18 08/02/18 Acetaminophen Tab [Tylenol] 1,000 mg PO DAILY 05/28/18 08/02/18 Budesonide/Formoterol Fumarate 2 puff INHALATION RT-Q12H 05/28/18 08/02/18 [Symbicort 80-4.5 Mcg Inhaler] Carvedilol [Coreg] 25 mg PO BID 05/28/18 08/02/18 Cinacalcet [Sensipar] 30 mg PO MOWEFR 05/28/18 08/02/18 NIFEdipine [NIFEdipine ER] 90 mg PO DAILY 05/28/18 08/02/18 Pantoprazole [Protonix] 40 mg PO DAILY 05/28/18 08/02/18 predniSONE 10 mg PO DAILY 05/28/18 08/02/18 Losartan [Cozaar] 25 mg PO DAILY 07/15/18 08/02/18 hydrALAZINE HCL [Apresoline] 50 mg PO BID 07/29/18 08/02/18 traZODone HCL 50 mg PO HS 07/29/18 08/02/18 Previous Rx's Medication Instructions Recorded Sodium Bicarbonate Tab 650 mg PO BID #60 tab 06/25/18 Ondansetron Odt [Zofran Odt] 4 mg PO Q8HR PRN #10 tab 07/02/18 Allergies Allergy/AdvReac Type Severity Reaction Status Date / Time hydralazine AdvReac Rapid Verified 08/02/18 15:22 Heart Rate Review of Systems ROS Statement: Those systems with pertinent positive or pertinent negative responses have been documented in the HPI. ROS Other: All systems not noted in ROS Statement are negative. Past Medical History Past Medical History: Asthma, Heart Failure, Hypertension, Renal Disease Additional Past Medical History / Comment(s): Pt recently admitted to [facility] on with acute on chronic kidney failure/valvular disease. Other hx; ESRD d/t being born with polycystic kidney disease, failed kidney transplant, hemodialysis, cardiomegally with EF 20-25%, cardiac cath 06/14/18 at [facility] to check coronary pressures-has L neck lump and R wrist lump since procedure that pt states are painful to touch, chronic anemia, vitamin D deficiency, chronic low back pain, ovarian cysts, irregular menses. History of Any Multi-Drug Resistant Organisms: None Reported Past Surgical History: Heart Catheterization, Hernia Repair Additional Past Surgical History / Comment(s): 06/14/18 cardiac cath at [facility] to check coronary pressures, 11/15/09 Failed kidney transplant R pelvis, dialysis catheter in and out, current L upper arm AVG, supra pubic hernia repair, transvaginal mesh, wisdom teeth extraction with anesthesia. Past Anesthesia/Blood Transfusion Reactions: No Reported Reaction Additional Past Anesthesia/Blood Transfusion Reaction / Comment(s): Pt has received blood in past without reaction. Past Psychological History: Anxiety, Depression Smoking Status: Never smoker Past Alcohol Use History: None Reported Past Drug Use History: None Reported - Past Family History Father Family Medical History: No Reported History Additional Family Medical History / Comment(s): Father is healthy and is 59 yrs old. Mother Family Medical History: No Reported History Additional Family Medical History / Comment(s): Mother is healthy and is 57 yrs old. General Exam Limitations: no limitations General appearance: alert, in no apparent distress Head exam: Present: atraumatic, normocephalic, normal inspection Eye exam: Present: normal appearance, PERRL, EOMI. Absent: scleral icterus, conjunctival injection, periorbital swelling ENT exam: Present: normal exam, mucous membranes moist Neck exam: Present: normal inspection. Absent: tenderness, meningismus, lymphadenopathy Respiratory exam: Present: normal lung sounds bilaterally. Absent: respiratory distress, wheezes, rales, rhonchi, stridor Cardiovascular Exam: Present: regular rate, normal rhythm, normal heart sounds. Absent: systolic murmur, diastolic murmur, rubs, gallop, clicks GI/Abdominal exam: Present: soft, normal bowel sounds. Absent: distended, tenderness, guarding, rebound, rigid Extremities exam: Present: normal inspection, full ROM, normal capillary refill. Absent: tenderness, pedal edema, joint swelling, calf tenderness Back exam: Present: normal inspection Neurological exam: Present: alert, oriented X3, CN II-XII intact Psychiatric exam: Present: normal affect, normal mood Skin exam: Present: warm, dry, intact, normal color. Absent: rash Course Vital Signs 08/02/18 08/02/18 08/02/18 15:14 17:49 18:48 Temperature 97.6 F 97.7 F Pulse Rate 94 101 H 99 Pulse Rate [ 90 Prune Washer ] Respiratory 18 18 21 Rate Blood Pressure 165/108 144/107 165/112 Blood Pressure 155/106 [Right Arm] O2 Sat by Pulse 100 97 98 Oximetry - Reevaluation(s) Reevaluation #1: 08/02/18 17:15 Medical record is reviewed and noncontributory Reevaluation #2: Patient is significantly elevated potassium with EKG changes Patient given hyperkalemia treatment - Consultations Consultation #1: Spoke with Dr. Travis regarding admission, he is agreeable EKG Findings - EKG Comments: EKG Findings:: EKG shows sinus rhythm rate of 96, LA 214, QRS 84, QTc 477 Medical Decision Making - Medical Decision Making 28 female the ER for evaluation positive hyperkalemia weakness and body aches and pains. Patient will be admitted for dialysis, nephrology evaluation - Lab Data Result diagrams: 08/02/18 16:00 08/02/18 21:10 Lab Results 08/02/18 08/02/18 08/02/18 Range/Units 16:00 16:00 16:00 WBC 8.8 (3.8-10.6) k/uL RBC 4.60 (3.80-5.40) m/uL Hgb 12.1 (11.4-16.0) gm/dL Hct 39.6 (34.0-46.0) % MCV 86.1 (80.0-100.0) fL MCH 26.4 (25.0-35.0) pg MCHC 30.7 L (31.0-37.0) g/dL RDW 19.9 H (11.5-15.5) % Plt Count 261 (150-450) k/uL Neutrophils % 73 % Lymphocytes % 17 % Monocytes % 5 % Eosinophils % 2 % Basophils % 1 % Neutrophils # 6.4 (1.3-7.7) k/uL Lymphocytes # 1.5 (1.0-4.8) k/uL Monocytes # 0.4 (0-1.0) k/uL Eosinophils # 0.2 (0-0.7) k/uL Basophils # 0.1 (0-0.2) k/uL Hypochromasia Moderate Anisocytosis Slight Microcytosis Slight PT (9.0-12.0) sec INR (<1.2) APTT (22.0-30.0) sec Sodium 137 (137-145) mmol/L Potassium 7.6 H* (3.5-5.1) mmol/L Chloride 96 L (98-107) mmol/L Carbon Dioxide 21 L (22-30) mmol/L Anion Gap 20 mmol/L BUN 86 H (7-17) mg/dL Creatinine 10.27 H* (0.52-1.04) mg/dL Est GFR (CKD-EPI)AfAm 5 (>60 ml/min/1.73 sqM) Est GFR (CKD-EPI)NonAf 5 (>60 ml/min/1.73 sqM) Glucose 70 L (74-99) mg/dL Plasma Lactic Acid Johan (0.7-2.0) mmol/L Calcium 9.6 (8.4-10.2) mg/dL Phosphorus 9.7 H* (2.5-4.5) mg/dL Magnesium 2.5 H (1.6-2.3) mg/dL Total Bilirubin 0.9 (0.2-1.3) mg/dL AST 45 H (14-36) U/L ALT 37 (9-52) U/L Alkaline Phosphatase 110 (38-126) U/L Total Creatine Kinase 165 H (30-135) U/L CK-MB (CK-2) 1.3 (0.0-2.4) ng/mL CK-MB (CK-2) Rel Index 0.8 Total Protein 8.9 H (6.3-8.2) g/dL Albumin 4.7 (3.5-5.0) g/dL 08/02/18 08/02/18 Range/Units 16:00 16:00 WBC (3.8-10.6) k/uL RBC (3.80-5.40) m/uL Hgb (11.4-16.0) gm/dL Hct (34.0-46.0) % MCV (80.0-100.0) fL MCH (25.0-35.0) pg MCHC (31.0-37.0) g/dL RDW (11.5-15.5) % Plt Count (150-450) k/uL Neutrophils % % Lymphocytes % % Monocytes % % Eosinophils % % Basophils % % Neutrophils # (1.3-7.7) k/uL Lymphocytes # (1.0-4.8) k/uL Monocytes # (0-1.0) k/uL Eosinophils # (0-0.7) k/uL Basophils # (0-0.2) k/uL Hypochromasia Anisocytosis Microcytosis PT 12.7 H (9.0-12.0) sec INR 1.2 H (<1.2) APTT 29.6 (22.0-30.0) sec Sodium (137-145) mmol/L Potassium (3.5-5.1) mmol/L Chloride (98-107) mmol/L Carbon Dioxide (22-30) mmol/L Anion Gap mmol/L BUN (7-17) mg/dL Creatinine (0.52-1.04) mg/dL Est GFR (CKD-EPI)AfAm (>60 ml/min/1.73 sqM) Est GFR (CKD-EPI)NonAf (>60 ml/min/1.73 sqM) Glucose (74-99) mg/dL Plasma Lactic Acid Johan 0.7 (0.7-2.0) mmol/L Calcium (8.4-10.2) mg/dL Phosphorus (2.5-4.5) mg/dL Magnesium (1.6-2.3) mg/dL Total Bilirubin (0.2-1.3) mg/dL AST (14-36) U/L ALT (9-52) U/L Alkaline Phosphatase (38-126) U/L Total Creatine Kinase (30-135) U/L CK-MB (CK-2) (0.0-2.4) ng/mL CK-MB (CK-2) Rel Index Total Protein (6.3-8.2) g/dL Albumin (3.5-5.0) g/dL Critical Care Time Critical Care Time: Yes Total Critical Care Time: 31 Disposition Clinical Impression: Chronic renal disease, ESRD (end stage renal disease) on dialysis, Hyperkalemia Disposition: ADMITTED IP TO THIS HOSP Condition: Serious Is patient prescribed a controlled substance at d/c from ED?: No
[2018-08-02 17:20] LABS: Phosphorus 9.7 mg/dL (2.5-4.5); Potassium 7.6 mmol/L (3.5-5.1)
[2018-08-02] MEDS ORDERED: INSULIN REGULAR 100 UNIT/ML VIAL IV ONE ×2 (17:27→22:04)
[2018-08-02] MEDS ORDERED: CALCIUM GLUCONATE 1,000 MG in SODIUM CHLORIDE 0.9% 100 ML IVPB ONE ×2 (17:27→22:04)
[2018-08-02] MEDS ORDERED: DEXTROSE 50%-WATER 50 ML SYRINGE IVP STA ×3 (17:27→22:04)
[2018-08-02] MEDS ORDERED: SODIUM BICARB 8.4% 50 ML SYR (1 MEQ/ML) IV ONE (17:27)
[2018-08-02 17:33] LABS: Creatine Kinase MB 1.3 ng/mL (0.0-2.4)
[2018-08-02] MEDS ORDERED: SODIUM POLYSTYRENE SULFONATE 15 GM/60 ML BOTTLE PO STA (18:33)
[2018-08-02 19:08] LABS: Glucose,Whole Blood 28 mg/dL (75-99)
[2018-08-02 19:08] LABS: Glucose,Whole Blood 119 mg/dL (75-99)
[2018-08-02] MEDS ORDERED: ONDANSETRON 4 MG/2 ML VIAL IVP PRN (20:59)
[2018-08-02] MEDS ORDERED: SODIUM CHLORIDE 0.9% 1,000 ML IV SCH (21:00)
[2018-08-02] MEDS: HYDROmorphone 0.5 MG/0.5 ML SYRINGE IVP PRN (21:15)
[2018-08-02 21:48] LABS: Calcium 8.9 mg/dL (8.4-10.2)
[2018-08-02 21:53] VITALS: BMI 20.2
[2018-08-02] MEDS: SODIUM CHLORIDE 0.9% 1,000 ML IV SCH (21:54)
[2018-08-02 21:56] LABS: Potassium 6.7 mmol/L (3.5-5.1)
[2018-08-02 23:42] LABS: Glucose,Whole Blood 43 mg/dL (75-99)
[2018-08-02 23:55] LABS: Glucose,Whole Blood 56 mg/dL (75-99)
[2018-08-03 00:09] LABS: Glucose,Whole Blood 72 mg/dL (75-99)
[2018-08-03] MEDS ORDERED: ALBUTEROL NEBULIZED 2.5 MG/3 ML INHALATION PRN (00:10)
[2018-08-03] MEDS ORDERED: ALPRAZolam 0.25 MG TAB PO PRN (00:14)
[2018-08-03] MEDS ORDERED: TEMAZEPAM 15 MG CAP PO PRN (00:14)
[2018-08-03] MEDS: HYDROmorphone 0.5 MG/0.5 ML SYRINGE IVP PRN (01:22)
[2018-08-03] MEDS: CARVEDILOL 12.5 MG TAB PO SCH ×3 (01:23→20:33)
[2018-08-03 05:17] LABS: Anisocytosis Slight; Basophils # (A) 0.1 k/uL (0-0.2); Basophils % (A) 1 %; Eosinophils # (A) 0.3 k/uL (0-0.7); Eosinophils % (A) 5 %; HCT 36.3 % (34.0-46.0); Hypochromasia Moderate; Lymphocytes # (A) 1.1 k/uL (1.0-4.8); Lymphocytes % (A) 16 %; MCH 26.2 pg (25.0-35.0); MCHC 30.2 g/dL (31.0-37.0); MCV 86.8 fL (80.0-100.0); Mean Platelet Volume 7.1; Monocytes # (A) 0.3 k/uL (0-1.0); Monocytes % (A) 5 %; Neutrophils # (A) 4.7 k/uL (1.3-7.7); Neutrophils % (A) 71 %; Platelet Count 200 k/uL (150-450); RBC 4.19 m/uL (3.80-5.40); RDW 19.7 % (11.5-15.5); WBC 6.5 k/uL (3.8-10.6)
[2018-08-03 05:28] LABS: Calcium 8.7 mg/dL (8.4-10.2); Potassium 5.5 mmol/L (3.5-5.1)
[2018-08-03 05:45] LABS: Glucose,Whole Blood 74 mg/dL (75-99)
--- NOTE | 2018-08-03 06:48 | HP ---
HISTORY AND PHYSICAL DATE OF SERVICE: 08/02/2018 CHIEF COMPLAINTS: Numbness, weakness, muscle pain, paresthesia, hyperkalemia. HISTORY OF PRESENT ILLNESS: This 28-year-old woman with a past medical history of multiple medical problems, including asthma, CHF, hypertension, history of renal disease, failed transplant because of polycystic kidney disease on hemodialysis, the patient is followed by Dr. Baez in the outpatient setting, actually missed hemodialysis during the [place] time and the patient came with fluid overload. Patient was dialyzed. Patient improved significantly. The patient went home. Currently the patient complains of tingling, and weakness and multiple symptomatology including joint pains. The patient came to [facility] and was evaluated. The potassium was found to be 7.6 and creatinine 10.27. Patient was given Kayexalate. The patient admitted to the hospital for further evaluation and treatment. Emergent hemodialysis also being arranged at this time. The patient is monitored in ICU. There is no history of fever, rigors. No history of headache, loss of consciousness, seizures at this time. PAST MEDICAL HISTORY: History of renal transplantation, renal failure as mentioned, history of asthma, CHF, hypertension. MEDICATIONS: 1. Trazodone 50 mg p.o. q.h.s. 2. Prednisone 10 mg daily. 3. Apresoline 50 mg p.o. b.i.d. 4. Sodium bicarb 650 p.o. b.i.d. 5. Protonix 40 mg daily. 6. Zofran 4 mg q.8h p.r.n. 7. Nifedipine ER 90 mg p.o. daily. 8. Cozaar 25 mg p.o. daily. 9. Sensipar 30 mg p.o. Wednesday, Wednesday and Wednesday. 10.Coreg 25 mg p.o. b.i.d. 11.PhosLo 1335 mg p.o. a.c. t.i.d. 12.Symbicort 80/4.5 two puffs b.i.d. 13.ProAir HFA 2 puffs q.6h p.r.n. 14.Tylenol 1000 mg p.o. daily. 15.Xanax 0.25 mg q.h.s. ALLERGIES: HYDRALAZINE. FAMILY HISTORY: No history of heart disease or strokes in family. SOCIAL HISTORY: No history of smoking. No alcohol intake. REVIEW OF SYSTEMS: ENT: No diminished vision. No diminished hearing. CARDIOVASCULAR: As mentioned earlier. RESPIRATORY: As mentioned earlier. GASTROINTESTINAL: As mentioned earlier. as mentioned earlier. NERVOUS SYSTEM: No numbness or weakness. ALLERGY/IMMUNOLOGY: No asthma or hayfever. MUSCULOSKELETAL: As mentioned earlier. HEMATOLOGY/ONCOLOGY: No history of anemia. ENDOCRINE: No history of diabetes or hypothyroidism. CONSTITUTIONAL: As mentioned earlier. Dermatology: Negative. Rheumatology: Negative. Psychiatry: As mentioned earlier. PHYSICAL EXAMINATION: GENERAL: The patient is alert and oriented x2. VITAL SIGNS: Pulse is 92. Blood pressure 151/109, respiration 20, temperature 97.7, pulse ox 97% on room air. HEENT: Conjunctivae normal. Oral mucosa moist. NECK is no jugular venous distention. No carotid bruit. No lymph node enlargement. CARDIOVASCULAR: S1, S2 muffled. RESPIRATIONS: Breath sounds diminished in the bases. Scattered rhonchi and crackles. ABDOMEN: Soft, nontender. No mass palpable. Obese. LEGS: Minimal edema. NERVOUS SYSTEM: Higher functions as mentioned earlier. Moves all 4 limbs. No focal motor or sensory deficits. Lymphatics: No lymph nodes palpable in the neck, axillae or groin. SKIN: No ulcer, rash or bleeding. LABS: WBC 8.2, hemoglobin 12.1. INR is 1.2. Potassium 7.6. Other labs are noted. ASSESSMENT: 1. Severe hyperkalemia secondary to renal failure. 2. Chronic renal failure and end stage renal disease stage IV on hemodialysis. 3. History of renal transplant rejection. 4. History of polycystic kidneys. 5. History of recent pulmonary edema secondary to missed dialysis. 6. History of asthma. 7. History of congestive heart failure. 8. Hypertension. 9. History of cardiomyopathy with ejection fraction 20-25 percent with cardiomyopathy possibly. 10.History of hernia repair. 11.Anxiety, depression. RECOMMENDATIONS AND DISCUSSION: In this 28-year-old woman who presented with multiple complex medical issues, we will monitor the patient closely, continue the current medications, management and symptomatic treatment. Otherwise, insulin glucose regimen has been given and also repeated. Otherwise, the patient is stated to get emergent hemodialysis. Home medications resumed. Symptomatic treatment will be provided. The prognosis guarded because of multiple complex medical issues. Further recommendations to follow. Discussed with the patient who understands and agrees. The patient will be closely monitored in ICU. We will arrange repeat labs also. See orders for further details. MMODL / IJN: [id number] /
--- NOTE | 2018-08-03 07:21 | XR ---
EXAMINATION TYPE: XR chest 1V portable DATE OF EXAM: 08/03/2018 Comparison: 07/29/2018 Clinical History: 28-year-old female shortness of breath, CHF Findings: Heart is moderately enlarged with mild diffuse interstitial prominence. No consolidation or pleural e ffusion. Impression: 1. Continued moderate cardiomegaly. 2. Residual mild pulmonary vascular congestion, improved from 07/29/2018.
[2018-08-03] MEDS: SODIUM BICARBONATE TAB 650 MG TAB PO SCH ×2 (08:33→20:33)
[2018-08-03] MEDS: PANTOPRAZOLE 40 MG/10 ML VIAL IVP SCH (08:33)
[2018-08-03] MEDS: CALCIUM ACETATE 667 MG CAP PO SCH ×3 (08:34→17:41)
[2018-08-03] MEDS: predniSONE 10 MG TAB PO SCH (08:35)
[2018-08-03] MEDS: NIFEdipine XL 90 MG TAB.ER.24 PO SCH (08:35)
[2018-08-03] MEDS: ACETAMINOPHEN TAB 500 MG TAB PO SCH (08:36)
[2018-08-03] MEDS: HEPARIN SODIUM,PORCINE 5,000 UNIT/ML 1 ML VIAL SQ SCH ×3 (08:41→20:34)
[2018-08-03] MEDS ORDERED: CINACALCET 30 MG TAB PO SCH (09:00)
[2018-08-03] MEDS: SYMBICORT 80-4.5 MCG INHALER INHALATION SCH ×2 (09:25→20:21)
[2018-08-03] MEDS: hydrALAZINE HCL 50 MG TAB PO SCH ×4 (12:40→20:34)
--- NOTE | 2018-08-03 13:45 | P.NPCON ---
History of Present Illness - Reason for Consult end stage renal disease - History of Present Illness Reason for consultation: End-stage renal disease History of present illness: Patient is a 28-year-old female seen in consultation for end-stage renal disease. Patient is maintained on hemodialysis on a Wednesday schedule. Her last hemodialysis treatment prior to admission was on Wednesday. Patient states she developed numbness in her lower extremities. She was also having episodes of vomiting and diarrhea. Patient presented to the hospital her potassium level was 7.6. She underwent emergent hemodialysis last night. Potassium level is down to 5.5 today. Last admission her Aldactone was discontinued. Patient was still taking Cozaar. Blood pressures have been running high. Dose of hydralazine was increased today. Vomiting and diarrhea improved. She is able to tolerate oral intake better now. She is eager to go home. Patient has history of failed renal transplant and has been weaned off of immunosuppression. She is currently maintained on prednisone 10 mg daily. Vital signs are stable. General: The patient appeared well nourished and normally developed. HEENT: Head exam is unremarkable. Neck is without jugular venous distension. LUNGS: Lungs are clear to auscultation and percussion. Breath sounds decreased. HEART: Rate and Rhythm are regular. First and second heart sounds normal. No murmurs, rubs or gallops. ABDOMEN: Abdominal exam reveals normal bowel sounds. Non-tender and non- distended. No evidence of peritonitis. EXTREMITITES: No clubbing, cyanosis, or edema. Past Medical History Past Medical History: Asthma, Heart Failure, Hypertension, Renal Disease Additional Past Medical History / Comment(s): Pt recently admitted to [facility] on with acute on chronic kidney failure/valvular disease. Other hx; ESRD d/t being born with polycystic kidney disease, failed kidney transplant, hemodialysis, cardiomegally with EF 20-25%, cardiac cath 06/14/18 at [facility] to check coronary pressures-has L neck lump and R wrist lump since procedure that pt states are painful to touch, chronic anemia, vitamin D deficiency, chronic low back pain, ovarian cysts, irregular menses. History of Any Multi-Drug Resistant Organisms: None Reported Past Surgical History: Heart Catheterization, Hernia Repair Additional Past Surgical History / Comment(s): 06/14/18 cardiac cath at [facility] to check coronary pressures, 11/15/09 Failed kidney transplant R pelvis, dialysis catheter in and out, current L upper arm AVG, supra pubic hernia repair, transvaginal mesh, wisdom teeth extraction with anesthesia. Past Anesthesia/Blood Transfusion Reactions: No Reported Reaction Additional Past Anesthesia/Blood Transfusion Reaction / Comment(s): Pt has received blood in past without reaction. Past Psychological History: Anxiety, Depression Smoking Status: Never smoker Past Alcohol Use History: None Reported Past Drug Use History: None Reported - Past Family History Father Family Medical History: No Reported History Additional Family Medical History / Comment(s): Father is healthy and is 59 yrs old. Mother Family Medical History: No Reported History Additional Family Medical History / Comment(s): Mother is healthy and is 57 yrs old. Medications and Allergies Home Medications Medication Instructions Recorded Confirmed Type Albuterol Sulfate [Proair Hfa] 2 puff INHALATION RT-Q6H PRN 01/22/16 08/02/18 History Calcium Acetate [PhosLo] 1,334 mg PO AC-TID 05/01/18 08/02/18 History ALPRAZolam [Xanax] 0.25 mg PO HS 05/28/18 08/02/18 History Acetaminophen Tab [Tylenol] 1,000 mg PO DAILY 05/28/18 08/02/18 History Budesonide/Formoterol Fumarate 2 puff INHALATION RT-Q12H 05/28/18 08/02/18 History [Symbicort 80-4.5 Mcg Inhaler] Carvedilol [Coreg] 25 mg PO BID 05/28/18 08/02/18 History Cinacalcet [Sensipar] 30 mg PO MOWEFR 05/28/18 08/02/18 History NIFEdipine [NIFEdipine ER] 90 mg PO DAILY 05/28/18 08/02/18 History Pantoprazole [Protonix] 40 mg PO DAILY 05/28/18 08/02/18 History predniSONE 10 mg PO DAILY 05/28/18 08/02/18 History Sodium Bicarbonate Tab 650 mg PO BID #60 tab 06/25/18 08/02/18 Rx Ondansetron Odt [Zofran Odt] 4 mg PO Q8HR PRN #10 tab 07/02/18 08/02/18 Rx Losartan [Cozaar] 25 mg PO DAILY 07/15/18 08/02/18 History hydrALAZINE HCL [Apresoline] 50 mg PO BID 07/29/18 08/02/18 History traZODone HCL 50 mg PO HS 07/29/18 08/02/18 History Allergies Allergy/AdvReac Type Severity Reaction Status Date / Time hydralazine AdvReac Rapid Verified 08/02/18 15:22 Heart Rate Physical Exam Vitals: Vital Signs Temp Pulse Pulse Resp BP BP Pulse Ox 08/03/18 12:00 98.1 F 88 86 18 179/130 96 08/03/18 10:00 83 18 179/130 95 08/03/18 08:00 98.1 F 85 95 23 158/114 90 L 08/03/18 04:00 97.8 F 76 90 20 161/117 94 L 08/03/18 00:00 98 F 89 90 23 155/102 97 08/02/18 20:00 92 90 22 151/111 97 08/02/18 18:48 97.7 F 99 90 21 165/112 155/106 98 08/02/18 17:49 101 H 18 144/107 97 08/02/18 15:14 97.6 F 94 18 165/108 100 Intake and Output 08/02/18 08/03/18 08/03/18 22:59 06:59 14:59 Intake Total 100 400 460 Output Total 1999 0 Balance 100 -1600 460 Intake: IV 100 400 100 Normal Saline 100 400 100 Oral 360 Output: Urine 0 Other 1999 Other: # Bowel Movements 1 1 Weight 50.2 kg 48.4 kg Results - Lab Results Most recent lab results Calcium 8.7 mg/dL (8.4-10.2) 08/03/18 04:25 Phosphorus 9.7 mg/dL (2.5-4.5) H* 08/02/18 16:00 Magnesium 2.5 mg/dL (1.6-2.3) H 08/02/18 16:00 08/03/18 04:25 08/03/18 04:25 Assessment and Plan Plan: Assessment: 1. End-stage renal disease maintained on hemodialysis on a Wednesday schedule. 2. Hyperkalemia secondary to end-stage renal disease. Patient was also taking Cozaar. Aldactone was discontinued last week. 3. History of failed renal transplant. 4. Hypertension with chronic kidney disease. 5. 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 Plan: Hemodialysis today. Dose of hydralazine increased today. Aldactone and Cozaar have been discontinued. Maintain prednisone 10 mg daily. Hep-Lock IV fluids. Thank you for the consultation. I will continue to follow the patient with you during her hospital stay.
[2018-08-03] MEDS: HYDROcodone/APAP 5-325MG 1 EACH TAB PO PRN (15:54)
[2018-08-03] MEDS ORDERED: cloNIDine HCL 0.1 MG TAB PO STA ×2 (17:08→19:08)
[2018-08-03] MEDS: SODIUM CHLORIDE 0.9% 1,000 ML IV SCH (17:36)
[2018-08-03] MEDS ORDERED: hydrALAZINE HCL 20 MG/ML 1 ML VIAL IVP PRN (19:02)
[2018-08-03] MEDS: cloNIDine HCL 0.2 MG TAB PO SCH (20:52)
[2018-08-03] MEDS ORDERED: traZODone HCL 50 MG TAB PO SCH (21:00)
[2018-08-03] MEDS ORDERED: ALPRAZolam 0.25 MG TAB PO SCH (21:00)
--- NOTE | 2018-08-03 21:15 | DS ---
DISCHARGE SUMMARY FINAL DIAGNOSES: 1. Severe hyperkalemia secondary to renal failure and missed hemodialysis. 2. History of chronic renal failure, end-stage renal disease stage IV, on hemodialysis. 3. History of renal transplant rejection. 4. History of polycystic kidney disease. 5. History of recent pulmonary edema secondary to missed dialysis. 6. History of asthma. 7. History of congestive heart failure. 8. Hypertension. 9. History of cardiomyopathy, ejection fraction 20 to 25% with chronic systolic dysfunction. 10.Congestive heart failure. 11.History of hernia repair. 12.Anxiety, depression. DISCHARGE DISPOSITION: The patient will be discharged in stable condition with guarded prognosis. HISTORY OF PRESENT ILLNESS: This 28- year-old woman with a past medical history of multiple medical problems admitted with severe hyperkalemia with missed dialysis. Patient was dialyzed and potassium improved significantly. Initially potassium was 7.3 and came down to 5.5. Dr. Thompson saw the patient and recommend the patient to be discharged. The patient was treated with insulin glucose regimen as well as Kayexalate during the hospitalization. The patient being followed by Dr. Baez in the outpatient setting. On exam, vital signs are stable. Cardiovascular: S1, S2. Abdomen soft. Nervous system: No focal deficits. DISCHARGE ADVICE AND MEDICATIONS: 1. Cardiac diet. 2. Activity limited until followup. 3. Follow up with Dr. Baez in 2-3 days. 4. Follow up with Dr. Thompson as advised. DISCHARGE MEDICATIONS: 1. Tylenol 1000 mg p.o. daily. 2. Albuterol q.6h p.r.n. 3. Xanax 0.25 q.h.s. 4. Symbicort 80/4.5 two puffs b.i.d. 5. PhosLo 1334 mg p.o. t.i.d. 6. Coreg 25 mg p.o. b.i.d. 7. Sensipar 30 mg Wednesday, Wednesday, Wednesday. 8. Nifedipine ER 90 mg p.o. daily. 9. Protonix 40 mg. 10.Prednisone 10 mg p.o. daily. 11.Trazodone 50 mg q.h.s. 12.Apresoline 100 mg p.o. q.i.d. 13.Zofran 4 mg q.8h p.r.n. 14.Sodium bicarb 650 p.o. b.i.d.. Once again, the patient will be discharged in stable condition with guarded prognosis. EBENEZERL / IJN: [id number] /
[2018-08-03 22:04] LABS: Anisocytosis Slight; Basophils # (A) 0.1 k/uL (0-0.2); Basophils % (A) 1 %; Eosinophils # (A) 0.3 k/uL (0-0.7); Eosinophils % (A) 6 %; HGB 11.1 gm/dL (11.4-16.0); Hypochromasia Slight; Lymphocytes # (A) 0.8 k/uL (1.0-4.8); Lymphocytes % (A) 17 %; MCH 26.4 pg (25.0-35.0); MCHC 30.8 g/dL (31.0-37.0); MCV 85.6 fL (80.0-100.0); Mean Platelet Volume 7.4; Microcytosis Slight; Monocytes # (A) 0.2 k/uL (0-1.0); Monocytes % (A) 5 %; Neutrophils # (A) 3.5 k/uL (1.3-7.7); Neutrophils % (A) 70 %; Platelet Count 178 k/uL (150-450); RDW 19.6 % (11.5-15.5)
[2018-08-03 22:10] LABS: Calcium 8.7 mg/dL (8.4-10.2); Magnesium 1.9 mg/dL (1.6-2.3); Phosphorus 3.9 mg/dL (2.5-4.5)
--- NOTE | 2018-08-03 23:50 | PN ---
PROGRESS NOTE DATE OF SERVICE: 08/03/2018. HISTORY: This 28-year-old woman with a past medical history of multiple medical problems was admitted with hypokalemia. The patient was a given Kayexalate. Potassium remained extremely high. Dialysis is being continued. The patient is being closely in the ICU. PAST MEDICAL HISTORY: Reviewed. REVIEW OF SYSTEMS: CARDIOVASCULAR SYSTEM: No angina or palpitations. GI: As mentioned. NERVOUS SYSTEM: Diffusely weak. Numbness. CURRENT MEDICATIONS: Reviewed, include: 1. Tylenol p.r.n. 2. [place] 5 mg every 6 hours. 3. Ventolin 2.5. 4. Xanax. 5. Potassium 4.5 two puffs also. 6. Phos-Lo t.i.d. 7. Coreg 25 mg p.o. b.i.d. 8. Sensipar 30 mg Wednesday, Wednesday, Wednesday. 9. Catapres 0.2 b.i.d. 10.Heparin 5 subcu b.i.d. 12.Dilaudid. 13.Procardia. 14.Zofran. 15.Protonix. PHYSICAL EXAM: Patient is alert, oriented x2. Pulse is 86. Blood pressure 140/90, respirations 16, temperature 98.2, pulse ox 94% on room air. HEENT: Conjunctivae normal. NECK: No JVD or carotid bruits. CARDIOVASCULAR: S1 and S2 muffled. LUNGS: Breath sounds diminished at the bases. Few scattered rhonchi and crackles. ABDOMEN: Soft, nontender. No mass. LEGS: No masses. No edema. No swelling. NERVOUS SYSTEM: Mild diffuse weakness. SKIN: No rashes. LABS: Hemoglobin 7.1, sodium 130, potassium 5. ASSESSMENT: 1. Severe hyperkalemia secondary to renal failure, possibly missed hemodialysis. 2. History of chronic renal failure end-stage renal disease stage IV, on hemodialysis. 3. History of renal transplant rejection. 4. History of polycystic kidney disease. 5. History of recent pulmonary edema secondary to missed hemodialysis. 6. History of asthma. 7. Congestive heart failure. 8. Hypertension. 9. History of cardiomyopathy, ejection fraction 20% to 25% with chronic systolic dysfunction. 10.History of congestive heart failure. 11.History of hernia repair. 12.Anxiety and depression. RECOMMENDATIONS: Continue current management. Continue symptomatic treatment. The exact etiology of hyperkalemia could be because of noncompliance. The patient missed hemodialysis recently. Dietary indiscretion is also a possibility. We will continue to monitor closely, follow hemodialysis and repeat electrolytes. Guarded prognosis. Further recommendations to follow. MMODL / IJN: [id number] / MTDD
[2018-08-04] MEDS: HYDROcodone/APAP 5-325MG 1 EACH TAB PO PRN (00:15)
[2018-08-04 06:13] LABS: Anisocytosis Slight; Basophils # (A) 0.1 k/uL (0-0.2); Basophils % (A) 1 %; Eosinophils # (A) 0.3 k/uL (0-0.7); Eosinophils % (A) 7 %; HCT 36.3 % (34.0-46.0); HGB 11.1 gm/dL (11.4-16.0); Hypochromasia Moderate; Lymphocytes % (A) 24 %; MCH 26.5 pg (25.0-35.0); MCHC 30.5 g/dL (31.0-37.0); Mean Platelet Volume 7.5; Monocytes # (A) 0.2 k/uL (0-1.0); Monocytes % (A) 5 %; Neutrophils # (A) 2.6 k/uL (1.3-7.7); Neutrophils % (A) 61 %; Platelet Count 191 k/uL (150-450); RBC 4.18 m/uL (3.80-5.40); RDW 19.6 % (11.5-15.5); WBC 4.2 k/uL (3.8-10.6)
[2018-08-04 06:27] LABS: Calcium 8.5 mg/dL (8.4-10.2)
[2018-08-04] MEDS: CALCIUM ACETATE 667 MG CAP PO SCH ×2 (07:50→11:21)
[2018-08-04] MEDS: hydrALAZINE HCL 50 MG TAB PO SCH ×2 (07:51→11:21)
[2018-08-04] MEDS: CARVEDILOL 12.5 MG TAB PO SCH (07:52)
[2018-08-04] MEDS: SODIUM BICARBONATE TAB 650 MG TAB PO SCH (07:52)
[2018-08-04] MEDS: predniSONE 10 MG TAB PO SCH (07:54)
[2018-08-04] MEDS: NIFEdipine XL 90 MG TAB.ER.24 PO SCH (07:55)
[2018-08-04] MEDS: cloNIDine HCL 0.2 MG TAB PO SCH (07:55)
[2018-08-04] MEDS: PANTOPRAZOLE 40 MG/10 ML VIAL IVP SCH (07:56)
[2018-08-04] MEDS: ACETAMINOPHEN TAB 500 MG TAB PO SCH (09:40)
[2018-08-04] MEDS: HEPARIN SODIUM,PORCINE 5,000 UNIT/ML 1 ML VIAL SQ SCH (09:41)
[2018-08-04 09:54] VITALS: RESP 18
[2018-08-04] MEDS: SYMBICORT 80-4.5 MCG INHALER INHALATION SCH (10:46)
[2018-08-04 13:09] VITALS: BP 124/73; PULSE 85; TEMP 97.9
--- NOTE | 2018-08-04 13:19 | P.PN ---
Subjective Patient is seen in follow-up for end-stage renal disease. She is maintained on hemodialysis on a Wednesday schedule. Patient underwent hemodialysis the last 2 days. Potassium level now normal. Blood pressure better controlled. Patient scheduled for discharge today. Vital signs are stable. General: The patient appeared well nourished and normally developed. HEENT: Head exam is unremarkable. Neck is without jugular venous distension. LUNGS: Lungs are clear to auscultation and percussion. Breath sounds decreased. HEART: Rate and Rhythm are regular. First and second heart sounds normal. No murmurs, rubs or gallops. ABDOMEN: Abdominal exam reveals normal bowel sounds. Non-tender and non- distended. No evidence of peritonitis. EXTREMITITES: No clubbing, cyanosis, or edema. Objective - Vital Signs Vital signs: Vital Signs Temp 97.9 F 08/04/18 12:00 Pulse 85 08/04/18 12:00 Resp 18 08/04/18 12:00 BP 124/73 08/04/18 12:00 Pulse Ox 97 08/04/18 12:00 Intake & Output 08/03/18 08/04/18 08/04/18 18:59 06:59 18:59 Intake Total 780 760 620 Output Total 0 0 0 Balance 780 760 620 Weight 47.6 kg Intake: IV 120 280 80 Normal Saline 120 280 80 Oral 660 480 540 Output: Urine 0 0 0 - Labs CBC & Chem 7: 08/04/18 05:38 08/04/18 05:38 Labs: Abnormal Lab Results - Last 24 Hours (Table) 08/03/18 08/03/18 08/04/18 Range/Units 21:23 21:23 05:38 Hgb 11.1 L 11.1 L (11.4-16.0) gm/dL MCHC 30.8 L 30.5 L (31.0-37.0) g/dL RDW 19.6 H 19.6 H (11.5-15.5) % Lymphocytes # 0.8 L (1.0-4.8) k/uL BUN 28 H (7-17) mg/dL Creatinine 4.14 H (0.52-1.04) mg/dL Glucose 123 H (74-99) mg/dL 08/04/18 Range/Units 05:38 Hgb (11.4-16.0) gm/dL MCHC (31.0-37.0) g/dL RDW (11.5-15.5) % Lymphocytes # (1.0-4.8) k/uL BUN 38 H (7-17) mg/dL Creatinine 5.73 H (0.52-1.04) mg/dL Glucose (74-99) mg/dL Assessment and Plan Plan: Assessment: 1. End-stage renal disease maintained on hemodialysis on a Wednesday schedule. 2. Hyperkalemia secondary to end-stage renal disease. Patient was also taking Cozaar. Aldactone was discontinued last week. Improved postdialysis. 3. History of failed renal transplant. 4. Hypertension with chronic kidney disease. Better. 5. 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 Plan: Hemodialysis tomorrow. Aldactone and Cozaar have been discontinued due to hyperkalemia. Maintain prednisone 10 mg daily. Increase clonidine to 0.2 mg 3 times daily. Potential discharge today. Stressed the importance of taking her medications as scheduled.
[2018-08-05] MEDS ORDERED: PANTOPRAZOLE 40 MG TABLET PO SCH (07:30)
--- NOTE | 2018-08-05 07:38 | DS ---
DISCHARGE SUMMARY DATE OF SERVICE: 08/04/2018 This 28-year-old woman was admitted with severe hyperkalemia and renal failure. Patient hemodialyzed. The patient had significant issues with compliance also. The patient improved significantly. The patient was discharged home in stable condition and guarded prognosis. On exam, vitals are stable. CARDIOVASCULAR: S1, S2 muffled. ABDOMEN: Soft. NERVOUS SYSTEM: No focal deficits. Current potassium is 5 and I recommend the patient to follow with dietitian. Recommendations as per diet requirements and as well as the importance of compliance also. Please refer to my previous dictation for discharge diagnoses and list of medications. MMODL / IJN: [id number] /
== END 2018-08-04 13:42 | disposition home or self-care (01) | DRG 640 ==
LOC: EC 14:51 → 2SICU 18:33
PROVIDERS: ADMIT Hospitalist; ATTEND Hospitalist
PROC: 5A1D70Z Performance of Urinary Filtration, Intermittent, Less than 6 Hours Per Day (ICD-10-PCS; principal; 2018-08-03)
DX: E87.5 Hyperkalemia (principal); N18.6 End stage renal disease; I13.2 Hypertensive heart and chronic kidney disease with heart failure and with stage 5 chronic kidney disease, or end stage renal disease; I42.9 Cardiomyopathy, unspecified; Q61.3 Polycystic kidney, unspecified; T86.11 Kidney transplant rejection; F32.9 Major depressive disorder, single episode, unspecified; F41.9 Anxiety disorder, unspecified; G89.29 Other chronic pain; I50.9 Heart failure, unspecified; J45.909 Unspecified asthma, uncomplicated; E55.9 Vitamin D deficiency, unspecified; N83.209 Unspecified ovarian cyst, unspecified side; N92.6 Irregular menstruation, unspecified; M54.5 Low back pain; E83.89 Other disorders of mineral metabolism; Z79.52 Long term (current) use of systemic steroids; Z79.899 Other long term (current) drug therapy; Z79.51 Long term (current) use of inhaled steroids; Z99.2 Dependence on renal dialysis; Z88.8 Allergy status to other drugs, medicaments and biological substances
CPT/HCPCS: 36415; 71045; 80048; 80053; 82550; 82553; 83605; 83735; 84100; 85025; 85610; 85730; 90935; 93005; 94640; 96361; 96365; 96375; 96376; 99291

== ENCOUNTER 2018-08-27 21:33 | Inpatient (IN) | payer BC, OTHER ==
[2018-08-28] MEDS ORDERED: METOCLOPRAMIDE 5 MG/ML 2 ML VIAL IVP STA (00:31)
[2018-08-28] MEDS ORDERED: LABETALOL SYRINGE 5 MG/ML IVP STA ×2 (00:31→06:27)
[2018-08-28 00:33] LABS: Anisocytosis Moderate; Basophils # (A) 0.1 k/uL (0-0.2); Basophils % (A) 1 %; Eosinophils # (A) 0.6 k/uL (0-0.7); Eosinophils % (A) 8 %; HCT 33.2 % (34.0-46.0); HGB 10.1 gm/dL (11.4-16.0); Hypochromasia Moderate; Lymphocytes # (A) 1.2 k/uL (1.0-4.8); Lymphocytes % (A) 18 %; MCHC 30.6 g/dL (31.0-37.0); MCV 88.4 fL (80.0-100.0); Mean Platelet Volume 6.3; Microcytosis Slight; Monocytes # (A) 0.2 k/uL (0-1.0); Monocytes % (A) 3 %; Neutrophils # (A) 4.6 k/uL (1.3-7.7); Neutrophils % (A) 68 %; Platelet Count 246 k/uL (150-450); RBC 3.76 m/uL (3.80-5.40); WBC 6.8 k/uL (3.8-10.6)
[2018-08-28 01:03] LABS: Albumin 4.2 g/dL (3.5-5.0); Calcium 9.2 mg/dL (8.4-10.2); Total Bilirubin 1.1 mg/dL (0.2-1.3); Total Protein 7.9 g/dL (6.3-8.2)
[2018-08-28 01:28] LABS: Potassium 6.1 mmol/L (3.5-5.1)
[2018-08-28] MEDS ORDERED: LORazepam 2 MG/ML INJ IV STA (01:32)
[2018-08-28] MEDS ORDERED: SODIUM BICARB 8.4% 50 ML SYR (1 MEQ/ML) IV STA (01:33)
[2018-08-28] MEDS ORDERED: INSULIN REGULAR 100 UNIT/ML VIAL IV STA (01:33)
[2018-08-28] MEDS ORDERED: DEXTROSE 50%-WATER 50 ML SYRINGE IVP STA (01:33)
[2018-08-28] MEDS ORDERED: CALCIUM GLUCONATE 1,000 MG in SODIUM CHLORIDE 0.9% 100 ML IVPB ONE (01:45)
[2018-08-28] MEDS ORDERED: NIFEdipine XL 90 MG TAB.ER.24 PO STA (04:41)
[2018-08-28] MEDS ORDERED: SODIUM POLYSTYRENE SULFONATE 15 GM/60 ML BOTTLE PO STA (06:20)
--- NOTE | 2018-08-28 06:26 | ED ---
Nausea/Vomiting/Diarrhea HPI - General Chief complaint: Nausea/Vomiting/Diarrhea Stated complaint: pain; nausea; renal disease Time Seen by Provider: 08/27/18 23:59 Source: patient Mode of arrival: ambulatory Limitations: no limitations - History of Present Illness Initial comments: Patient is 28-year-old woman with history of end-stage renal disease taking hemodialysis. She states that she began having nausea and vomiting yesterday in the afternoon. Initially she can tolerate a little oral intake but then in the nighttime she was not able tolerate anything. She was not able take her nighttime medicines. She states that she was also having some intermittent abdominal cramping. She is not currently having pain. She is concerned because she cannot keep her meds down. MD complaint: nausea, vomiting -: hour(s) Description of Vomiting: food contents Associated Abdominal Pain: Yes Location: diffuse Severity: mild Quality: cramping Consistency: intermittent Improves with: none Worsens with: none - Related Data Home Medications Medication Instructions Recorded Confirmed Albuterol Sulfate [Proair Hfa] 2 puff INHALATION RT-Q6H PRN 01/22/16 08/02/18 Calcium Acetate [PhosLo] 1,334 mg PO AC-TID 05/01/18 08/02/18 ALPRAZolam [Xanax] 0.25 mg PO HS 05/28/18 08/02/18 Acetaminophen Tab [Tylenol] 1,000 mg PO DAILY 05/28/18 08/02/18 Budesonide/Formoterol Fumarate 2 puff INHALATION RT-Q12H 05/28/18 08/02/18 [Symbicort 80-4.5 Mcg Inhaler] Carvedilol [Coreg] 25 mg PO BID 05/28/18 08/02/18 Cinacalcet [Sensipar] 30 mg PO MOWEFR 05/28/18 08/02/18 NIFEdipine [NIFEdipine ER] 90 mg PO DAILY 05/28/18 08/02/18 Pantoprazole [Protonix] 40 mg PO DAILY 05/28/18 08/02/18 predniSONE 10 mg PO DAILY 05/28/18 08/02/18 traZODone HCL 50 mg PO HS 07/29/18 08/02/18 Previous Rx's Medication Instructions Recorded Sodium Bicarbonate Tab 650 mg PO BID #60 tab 06/25/18 Ondansetron Odt [Zofran ODT] 4 mg PO Q8HR PRN #10 tab 07/02/18 hydrALAZINE HCL [Apresoline] 100 mg PO QID #240 tab 08/03/18 Allergies Allergy/AdvReac Type Severity Reaction Status Date / Time hydralazine AdvReac Rapid Verified 08/27/18 22:13 Heart Rate Review of Systems ROS Statement: Those systems with pertinent positive or pertinent negative responses have been documented in the HPI. ROS Other: All systems not noted in ROS Statement are negative. Constitutional: Denies: fever, chills Respiratory: Denies: cough, dyspnea Cardiovascular: Denies: chest pain, palpitations Gastrointestinal: Reports: nausea, vomiting. Denies: abdominal pain, diarrhea Musculoskeletal: Denies: back pain Skin: Denies: rash Neurological: Denies: headache, weakness, numbness Psychiatric: Reports: anxiety Past Medical History Past Medical History: Asthma, Heart Failure, Hypertension, Renal Disease Additional Past Medical History / Comment(s): Pt recently admitted to [facility] on with acute on chronic kidney failure/valvular disease. Other hx; ESRD d/t being born with polycystic kidney disease, failed kidney transplant, hemodialysis, cardiomegally with EF 20-25%, cardiac cath 06/14/18 at [facility] to check coronary pressures-has L neck lump and R wrist lump since procedure that pt states are painful to touch, chronic anemia, vitamin D deficiency, chronic low back pain, ovarian cysts, irregular menses. History of Any Multi-Drug Resistant Organisms: None Reported Past Surgical History: Heart Catheterization, Hernia Repair Additional Past Surgical History / Comment(s): 06/14/18 cardiac cath at [facility] to check coronary pressures, 11/15/09 Failed kidney transplant R pelvis, dialysis catheter in and out, current L upper arm AVG, supra pubic hernia repair, transvaginal mesh, wisdom teeth extraction with anesthesia. Past Anesthesia/Blood Transfusion Reactions: No Reported Reaction Additional Past Anesthesia/Blood Transfusion Reaction / Comment(s): Pt has received blood in past without reaction. Past Psychological History: Anxiety, Depression Smoking Status: Never smoker Past Alcohol Use History: None Reported Past Drug Use History: None Reported - Past Family History Father Family Medical History: No Reported History Additional Family Medical History / Comment(s): Father is healthy and is 59 yrs old. Mother Family Medical History: No Reported History Additional Family Medical History / Comment(s): Mother is healthy and is 57 yrs old. General Exam Limitations: no limitations General appearance: alert, in no apparent distress, anxious Head exam: Present: atraumatic, normocephalic Eye exam: Present: normal appearance Respiratory exam: Present: normal lung sounds bilaterally. Absent: respiratory distress, wheezes, rales, rhonchi, stridor Cardiovascular Exam: Present: regular rate, normal rhythm, gallop. Absent: systolic murmur, diastolic murmur, rubs GI/Abdominal exam: Present: soft. Absent: distended, tenderness, guarding, rebound, rigid, mass Extremities exam: Present: normal inspection, normal capillary refill. Absent: pedal edema, calf tenderness Back exam: Present: normal inspection. Absent: CVA tenderness (R), CVA tenderness (L) Neurological exam: Present: alert Skin exam: Present: warm, dry, intact, normal color. Absent: rash Course Vital Signs 08/27/18 08/28/18 08/28/18 22:10 00:10 01:00 Temperature 98.7 F Pulse Rate 100 100 Respiratory 18 16 Rate Blood Pressure 186/118 178/138 O2 Sat by Pulse 94 L 94 L Oximetry 08/28/18 08/28/18 08/28/18 02:00 03:00 07:16 Temperature Pulse Rate 80 98 86 Respiratory 16 15 18 Rate Blood Pressure 181/130 180/128 169/129 O2 Sat by Pulse 99 98 100 Oximetry 08/28/18 08:00 Temperature Pulse Rate 81 Respiratory 24 Rate Blood Pressure 163/124 O2 Sat by Pulse 100 Oximetry - Reevaluation(s) Reevaluation #1: 08/28/18 06:[address] Lester, I would like the patient to receive Kayexalate and have her potassium rechecked, as long as it is less than 5.5 would like her to follow with her dialysis session on Wednesday, otherwise patient may require admission for dialysis here today. Medical Decision Making - Lab Data Result diagrams: 08/28/18 00:08 08/28/18 06:45 Lab Results 08/28/18 08/28/18 08/28/18 Range/Units 00:08 00:08 00:08 WBC 6.8 (3.8-10.6) k/uL RBC 3.76 L (3.80-5.40) m/uL Hgb 10.1 L (11.4-16.0) gm/dL Hct 33.2 L (34.0-46.0) % MCV 88.4 (80.0-100.0) fL MCH 27.0 (25.0-35.0) pg MCHC 30.6 L (31.0-37.0) g/dL RDW 22.0 H (11.5-15.5) % Plt Count 246 (150-450) k/uL Neutrophils % 68 % Lymphocytes % 18 % Monocytes % 3 % Eosinophils % 8 % Basophils % 1 % Neutrophils # 4.6 (1.3-7.7) k/uL Lymphocytes # 1.2 (1.0-4.8) k/uL Monocytes # 0.2 (0-1.0) k/uL Eosinophils # 0.6 (0-0.7) k/uL Basophils # 0.1 (0-0.2) k/uL Hypochromasia Moderate Anisocytosis Moderate Microcytosis Slight Sodium 136 L (137-145) mmol/L Potassium 6.1 H* (3.5-5.1) mmol/L Chloride 94 L (98-107) mmol/L Carbon Dioxide 29 (22-30) mmol/L Anion Gap 13 mmol/L BUN 59 H (7-17) mg/dL Creatinine 8.32 H* (0.52-1.04) mg/dL Est GFR (CKD-EPI)AfAm 7 (>60 ml/min/1.73 sqM) Est GFR (CKD-EPI)NonAf 6 (>60 ml/min/1.73 sqM) Glucose 96 (74-99) mg/dL Calcium 9.2 (8.4-10.2) mg/dL Total Bilirubin 1.1 (0.2-1.3) mg/dL AST 32 (14-36) U/L ALT 31 (9-52) U/L Alkaline Phosphatase 127 H (38-126) U/L NT-Pro-B Natriuret Pep 662304 pg/mL Total Protein 7.9 (6.3-8.2) g/dL Albumin 4.2 (3.5-5.0) g/dL 08/28/18 Range/Units 06:45 WBC (3.8-10.6) k/uL RBC (3.80-5.40) m/uL Hgb (11.4-16.0) gm/dL Hct (34.0-46.0) % MCV (80.0-100.0) fL MCH (25.0-35.0) pg MCHC (31.0-37.0) g/dL RDW (11.5-15.5) % Plt Count (150-450) k/uL Neutrophils % % Lymphocytes % % Monocytes % % Eosinophils % % Basophils % % Neutrophils # (1.3-7.7) k/uL Lymphocytes # (1.0-4.8) k/uL Monocytes # (0-1.0) k/uL Eosinophils # (0-0.7) k/uL Basophils # (0-0.2) k/uL Hypochromasia Anisocytosis Microcytosis Sodium 137 (137-145) mmol/L Potassium 6.1 H* (3.5-5.1) mmol/L Chloride 96 L (98-107) mmol/L Carbon Dioxide 28 (22-30) mmol/L Anion Gap 13 mmol/L BUN 61 H (7-17) mg/dL Creatinine 8.93 H* (0.52-1.04) mg/dL Est GFR (CKD-EPI)AfAm 6 (>60 ml/min/1.73 sqM) Est GFR (CKD-EPI)NonAf 6 (>60 ml/min/1.73 sqM) Glucose 93 (74-99) mg/dL Calcium 8.8 (8.4-10.2) mg/dL Total Bilirubin (0.2-1.3) mg/dL AST (14-36) U/L ALT (9-52) U/L Alkaline Phosphatase (38-126) U/L NT-Pro-B Natriuret Pep pg/mL Total Protein (6.3-8.2) g/dL Albumin (3.5-5.0) g/dL Critical Care Time Critical Care Time: Yes (35 minutes) Disposition Clinical Impression: Nausea & vomiting, Hyperkalemia Disposition: ADMITTED IP TO THIS [facility] Condition: Poor
[2018-08-28 07:34] LABS: Calcium 8.8 mg/dL (8.4-10.2)
[2018-08-28 07:35] LABS: Potassium 6.1 mmol/L (3.5-5.1)
[2018-08-28] MEDS ORDERED: ACETAMINOPHEN TAB 325 MG TAB PO PRN (07:39)
[2018-08-28] MEDS ORDERED: NALOXONE 0.4 MG/ML 1 ML VIAL IV PRN (07:39)
[2018-08-28] MEDS ORDERED: ALBUTEROL NEBULIZED 2.5 MG/3 ML INHALATION PRN (07:43)
[2018-08-28] MEDS ORDERED: MORPHINE SULFATE 4 MG/ML SYRINGE IVP STA (08:14)
[2018-08-28] MEDS ORDERED: SODIUM BICARBONATE TAB 650 MG TAB PO SCH (10:00)
[2018-08-28] MEDS ORDERED: PANTOPRAZOLE 40 MG TABLET PO SCH (10:00)
[2018-08-28] MEDS ORDERED: traMADol 50 MG TAB PO PRN (10:42)
[2018-08-28 10:56] VITALS: BMI 21.3
[2018-08-28] MEDS: SYMBICORT 80-4.5 MCG INHALER INHALATION SCH ×2 (10:57→20:00)
[2018-08-28] MEDS: ACETAMINOPHEN IV (For NPO) 1,000 MG in EMPTY BAG 1 BAG IVPB SCH ×3 (11:16→23:53)
[2018-08-28] MEDS: ONDANSETRON 4 MG/2 ML VIAL IVP PRN (11:19)
--- NOTE | 2018-08-28 12:03 | P.NPCON ---
History of Present Illness - Reason for Consult end stage renal disease - Chief Complaint Nausea and vomiting. - History of Present Illness ESRD patient follows with Dr. Thompson. She has left upper arm AV fistula, MWF schedule. She did not miss her dialysis treatment. She came into the hospital yesterday with worsening nausea and abdominal pain. No diarrhea. Her potassium was 6.1 she was treated medically. And potassium repeat was 6.1. She was taking lot of Zofran from primary care. Still having nausea. Denies taking any potassium supplements. Review of Systems Constitutional: Reports as per HPI Past Medical History Past Medical History: Asthma, Heart Failure, Hypertension, Renal Disease Additional Past Medical History / Comment(s): recent admission for renal failure Other hx; ESRD d/t being born with polycystic kidney disease, failed kidney transplant, hemodialysis, cardiomegally with EF 20-25%, cardiac cath at [facility] to check coronary pressures-has L neck lump and R wrist lump since procedure that pt states are painful to touch, chronic anemia, vitamin D deficiency, chronic low back pain, ovarian cysts, irregular menses. History of Any Multi-Drug Resistant Organisms: None Reported Past Surgical History: Heart Catheterization, Hernia Repair Additional Past Surgical History / Comment(s): 06/14/18 cardiac cath at [facility] to check coronary pressures, 11/15/09 Failed kidney transplant R pelvis, dialysis catheter in and out, current L upper arm AVG, supra pubic hernia repair, transvaginal mesh, wisdom teeth extraction with anesthesia. Past Anesthesia/Blood Transfusion Reactions: No Reported Reaction Additional Past Anesthesia/Blood Transfusion Reaction / Comment(s): Pt has received blood in past without reaction. Past Psychological History: Anxiety, Depression Additional Psychological History / Comment(s): Pt resides with family. She is independent. She drives. She is disabled. She states she has anxiety and depression but no suicidal thoughts/ idealations or plans. She had one suicide attempt with overdose in 2012. Smoking Status: Former smoker Past Alcohol Use History: None Reported Additional Past Alcohol Use History / Comment(s): Pt states she quit smoking in 2016. Past Drug Use History: None Reported - Past Family History Father Family Medical History: No Reported History Additional Family Medical History / Comment(s): Father is healthy and is 59 yrs old. Mother Family Medical History: No Reported History Additional Family Medical History / Comment(s): Mother is healthy and is 57 yrs old. Medications and Allergies Home Medications Medication Instructions Recorded Confirmed Type Albuterol Sulfate [Proair Hfa] 2 puff INHALATION RT-Q6H PRN 01/22/16 08/28/18 History Calcium Acetate [PhosLo] 1,334 mg PO AC-TID 05/01/18 08/28/18 History ALPRAZolam [Xanax] 0.25 mg PO HS 05/28/18 08/28/18 History Budesonide/Formoterol Fumarate 2 puff INHALATION RT-Q12H 05/28/18 08/28/18 History [Symbicort 80-4.5 Mcg Inhaler] Carvedilol [Coreg] 25 mg PO BID 05/28/18 08/28/18 History Cinacalcet [Sensipar] 30 mg PO MOWEFR 05/28/18 08/28/18 History NIFEdipine [NIFEdipine ER] 90 mg PO DAILY 05/28/18 08/28/18 History Pantoprazole [Protonix] 40 mg PO DAILY 05/28/18 08/28/18 History predniSONE 10 mg PO DAILY 05/28/18 08/28/18 History Ondansetron Odt [Zofran ODT] 4 mg PO Q8HR PRN #10 tab 07/02/18 08/28/18 Rx traZODone HCL 50 mg PO HS PRN 07/29/18 08/28/18 History hydrALAZINE HCL [Apresoline] 100 mg PO QID #240 tab 08/03/18 08/28/18 Rx Allergies Allergy/AdvReac Type Severity Reaction Status Date / Time hydralazine AdvReac Rapid Verified 08/28/18 09:11 Heart Rate Physical Exam Vitals: Vital Signs Temp Pulse Pulse Resp BP BP Pulse Ox 08/28/18 10:49 98.1 F 86 18 173/124 91 L 08/28/18 10:20 80 20 146/109 08/28/18 09:18 98.1 F 98 18 170/122 98 08/28/18 08:30 95 22 154/109 08/28/18 08:00 81 24 163/124 100 08/28/18 07:16 86 18 169/129 100 08/28/18 03:00 98 15 180/128 98 08/28/18 02:00 80 16 181/130 99 08/28/18 01:00 100 16 178/138 08/28/18 00:10 94 L 08/27/18 22:10 98.7 F 100 18 186/118 94 L Intake and Output 08/27/18 08/28/18 08/28/18 22:59 06:59 14:59 Other: Weight 50 kg No acute distress. S1-S2 heard Lungs clear Left upper arm AV fistula No edema. Results - Lab Results Most recent lab results Calcium 8.8 mg/dL (8.4-10.2) 08/28/18 06:45 08/28/18 00:08 08/28/18 06:45 Assessment and Plan Assessment: #1 abdominal pain with nausea vomiting. Check abdominal ultrasound. #2 ESRD MWF via left upper arm AV fistula #3 hyperkalemia #4 hypertension with ESRD #5 metabolic bone disease with ESRD Plan: #1 plan hemodialysis today with 2K bath, 2 hours to get the potassium down and full treatment tomorrow. #2 ESRD medications #3 Zofran and ultrasound abdomen.
[2018-08-28] MEDS: hydrALAZINE HCL 50 MG TAB PO SCH ×4 (13:00→21:12)
--- NOTE | 2018-08-28 13:01 | US ---
EXAMINATION TYPE: US abdomen complete DATE OF EXAM: 08/28/2018 COMPARISON: CT dated 09/27/2016 & US dated 02/04/2016 CLINICAL HISTORY: nausea. EXAM MEASUREMENTS: Liver Length: 18.1 cm Gallbladder Wall: 0.5 cm CBD: 0.4 cm Spleen: 9.5 cm Right Kidney: not seen Left Kidney: not seen Right pelvic transplant kidney 8.2 x 4.2 x 4.1 cm Pancreas: visualized portions wnl Liver: measures 18.1 cm and there is no evident mass Gallbladder: thickened edematous wall, no stones seen Evidence for sonographic Rivas's sign: Yes CBD: wnl Spleen: wnl Right Kidney: not seen Left Kidney: not seen Upper IVC: wnl Abd Aorta: wnl Pelvic transplant kidney: hypoechoic echotexture, very little flow seen. Doppler waveform is dampened . There is no ascites. IMPRESSION: Findings could represent chronic cholecystitis. Transplant kidney within the pelvis appea rs atrophic.
[2018-08-28] MEDS: CALCIUM ACETATE 667 MG CAP PO SCH ×2 (13:14→17:50)
[2018-08-28] MEDS: PANTOPRAZOLE 40 MG/10 ML VIAL IVP SCH (13:20)
[2018-08-28] MEDS: CARVEDILOL 12.5 MG TAB PO SCH ×2 (13:22→17:50)
--- NOTE | 2018-08-28 13:26 | P.HPIM ---
History of Present Illness 28-year-old female incisional disease Wednesday was a Wednesday schedule with a left upper arm fistula came in with complaints of nausea vomiting suprapubic pain patient doesn't urinate. Pain is sharp in nature moderate severity. Patient is a failed renal transplant in the past potassium was 6.1 patient is admitted here. Awaiting ultrasound and acute abdominal series. Patient will be started on Protonix Zofran. Etiology of abdominal pain is not clear at this time. Patient's potassium is being treated by nephrology. Patient received D5 with insulin may require kayexalate. Patient is an area hyperacute T waves patient is complaining of generalized body aches denied any fever Review of Systems REVIEW OF SYSTEMS: CONSTITUTIONAL: generalized body aches and malaise HEENT: No recent visual problems or hearing problems. Denied any sore throat. CARDIOVASCULAR: No chest pain, orthopnea, PND, no palpitations, no syncope. PULMONARY: No shortness of breath, no cough, no hemoptysis. GASTROINTESTINAL: as mentioned in HPI NEUROLOGICAL: No headaches, no weakness, no numbness. HEMATOLOGICAL: Denies any bleeding or petechiae. GENITOURINARY: Denies any burning micturition, frequency, or urgency. MUSCULOSKELETAL/RHEUMATOLOGICAL: Denies any joint pain, swelling, or any muscle pain. ENDOCRINE: Denies any polyuria or polydipsia. The rest of the 14-point review of systems is negative. Past Medical History Past Medical History: Asthma, Heart Failure, Hypertension, Renal Disease Additional Past Medical History / Comment(s): recent admission for renal failure Other hx; ESRD d/t being born with polycystic kidney disease, failed kidney transplant, hemodialysis, cardiomegally with EF 20-25%, cardiac cath at [facility] to check coronary pressures-has L neck lump and R wrist lump since procedure that pt states are painful to touch, chronic anemia, vitamin D deficiency, chronic low back pain, ovarian cysts, irregular menses. History of Any Multi-Drug Resistant Organisms: None Reported Past Surgical History: Heart Catheterization, Hernia Repair Additional Past Surgical History / Comment(s): 06/14/18 cardiac cath at [facility] to check coronary pressures, 11/15/09 Failed kidney transplant R pelvis, dialysis catheter in and out, current L upper arm AVG, supra pubic hernia repair, transvaginal mesh, wisdom teeth extraction with anesthesia. Past Anesthesia/Blood Transfusion Reactions: No Reported Reaction Additional Past Anesthesia/Blood Transfusion Reaction / Comment(s): Pt has received blood in past without reaction. Past Psychological History: Anxiety, Depression Additional Psychological History / Comment(s): Pt resides with family. She is independent. She drives. She is disabled. She states she has anxiety and depression but no suicidal thoughts/ idealations or plans. She had one suicide attempt with overdose in 2012. Smoking Status: Former smoker Past Alcohol Use History: None Reported Additional Past Alcohol Use History / Comment(s): Pt states she quit smoking in 2015. Past Drug Use History: None Reported - Past Family History Father Family Medical History: No Reported History Additional Family Medical History / Comment(s): Father is healthy and is 59 yrs old. Mother Family Medical History: No Reported History Additional Family Medical History / Comment(s): Mother is healthy and is 57 yrs old. Medications and Allergies Home Medications Medication Instructions Recorded Confirmed Type Albuterol Sulfate [Proair Hfa] 2 puff INHALATION RT-Q6H PRN 01/22/16 08/28/18 History Calcium Acetate [PhosLo] 1,334 mg PO AC-TID 05/01/18 08/28/18 History ALPRAZolam [Xanax] 0.25 mg PO HS 05/28/18 08/28/18 History Budesonide/Formoterol Fumarate 2 puff INHALATION RT-Q12H 05/28/18 08/28/18 History [Symbicort 80-4.5 Mcg Inhaler] Carvedilol [Coreg] 25 mg PO BID 05/28/18 08/28/18 History Cinacalcet [Sensipar] 30 mg PO MOWEFR 05/28/18 08/28/18 History NIFEdipine [NIFEdipine ER] 90 mg PO DAILY 05/28/18 08/28/18 History Pantoprazole [Protonix] 40 mg PO DAILY 05/28/18 08/28/18 History predniSONE 10 mg PO DAILY 05/28/18 08/28/18 History Ondansetron Odt [Zofran ODT] 4 mg PO Q8HR PRN #10 tab 07/02/18 08/28/18 Rx traZODone HCL 50 mg PO HS PRN 07/29/18 08/28/18 History hydrALAZINE HCL [Apresoline] 100 mg PO QID #240 tab 08/03/18 08/28/18 Rx Allergies Allergy/AdvReac Type Severity Reaction Status Date / Time hydralazine AdvReac Rapid Verified 08/28/18 09:11 Heart Rate Physical Exam Vitals: Vital Signs Temp Pulse Pulse Resp BP BP Pulse Ox 08/28/18 10:49 98.1 F 86 18 173/124 91 L 08/28/18 10:20 80 20 146/109 08/28/18 09:18 98.1 F 98 18 170/122 98 08/28/18 08:30 95 22 154/109 08/28/18 08:00 81 24 163/124 100 08/28/18 07:16 86 18 169/129 100 08/28/18 03:00 98 15 180/128 98 08/28/18 02:00 80 16 181/130 99 08/28/18 01:00 100 16 178/138 08/28/18 00:10 94 L 08/27/18 22:10 98.7 F 100 18 186/118 94 L Intake and Output 08/27/18 08/28/18 08/28/18 22:59 06:59 14:59 Other: Weight 50 kg PHYSICAL EXAMINATION: GENERAL: The patient is alert and oriented x3, not in any acute distress. thin built female HEENT: Pupils are round and equally reacting to light. EOMI. No scleral icterus. No conjunctival pallor. Normocephalic, atraumatic. No pharyngeal erythema. No thyromegaly. CARDIOVASCULAR: S1 and S2 present. No murmurs, rubs, or gallops. PULMONARY: Chest is clear to auscultation, no wheezing or crackles. ABDOMEN: Soft, nontender, nondistended, normoactive bowel sounds. No palpable organomegaly. MUSCULOSKELETAL: No joint swelling or deformity. EXTREMITIES: No cyanosis, clubbing, or pedal edema. NEUROLOGICAL: Gross neurological examination did not reveal any focal deficits. SKIN: No rashes. Results CBC & Chem 7: 08/28/18 00:08 08/28/18 06:45 Labs: Abnormal Lab Results - Last 24 Hours (Table) 08/28/18 08/28/18 08/28/18 Range/Units 00:08 00:08 06:45 RBC 3.76 L (3.80-5.40) m/uL Hgb 10.1 L (11.4-16.0) gm/dL Hct 33.2 L (34.0-46.0) % MCHC 30.6 L (31.0-37.0) g/dL RDW 22.0 H (11.5-15.5) % Sodium 136 L (137-145) mmol/L Potassium 6.1 H* 6.1 H* (3.5-5.1) mmol/L Chloride 94 L 96 L (98-107) mmol/L BUN 59 H 61 H (7-17) mg/dL Creatinine 8.32 H* 8.93 H* (0.52-1.04) mg/dL Phosphorus (2.5-4.5) mg/dL Alkaline Phosphatase 127 H (38-126) U/L 08/28/18 Range/Units 06:45 RBC (3.80-5.40) m/uL Hgb (11.4-16.0) gm/dL Hct (34.0-46.0) % MCHC (31.0-37.0) g/dL RDW (11.5-15.5) % Sodium (137-145) mmol/L Potassium (3.5-5.1) mmol/L Chloride (98-107) mmol/L BUN (7-17) mg/dL Creatinine (0.52-1.04) mg/dL Phosphorus 6.9 H (2.5-4.5) mg/dL Alkaline Phosphatase (38-126) U/L Thrombosis Risk Factor Assmnt - Choose All That Apply Any of the Below Risk Factors Present?: No Assessment and Plan Plan: -abdominal pain etiology is not clear at all the abdomen is soft patient was started on Protonix patient has suprapubic pain mostly although doesn't make much urine. 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
[2018-08-28] MEDS ORDERED: diphenhydrAMINE 50 MG/ML 1 ML VIAL IVP PRN (15:55)
[2018-08-28] MEDS ORDERED: ALPRAZolam 0.25 MG TAB PO PRN (16:04)
[2018-08-28] MEDS: predniSONE 10 MG TAB PO SCH (16:09)
--- NOTE | 2018-08-28 18:04 | XR ---
EXAMINATION TYPE: XR abdomen acute w cxr DATE OF EXAM: 08/28/2018 COMPARISON: Prior chest x-ray 08/03/[address] abdomen pelvis 09/27/2016 HISTORY: Shortness breath and abdominal pain TECHNIQUE: Supine, upright, and frontal chest views of the abdomen and chest are obtained. FINDINGS: The heart remains enlarged. Central vascularity shows a similar appearance. No pneumothora x or pleural effusion. There is no evidence for pneumoperitoneum. The bowel gas pattern is unremarkable as there is air throughout nondilated small and large bowel. No sizeable air fluid levels. No mass effects are seen. Calcification again noted over the pelvis. Surgical clip present in the right pelvis. IMPRESSION: Persistent cardiomegaly. Postop change. There may be a component of pulmonary venous hypertension and early interstitial edema.
[2018-08-28] MEDS ORDERED: traZODone HCL 50 MG TAB PO SCH (21:00)
[2018-08-28] MEDS ORDERED: ALPRAZolam 0.25 MG TAB PO SCH (21:00)
[2018-08-29] MEDS: ACETAMINOPHEN IV (For NPO) 1,000 MG in EMPTY BAG 1 BAG IVPB SCH (05:09)
[2018-08-29 06:33] LABS: Anisocytosis Moderate; HGB 9.5 gm/dL (11.4-16.0); Hypochromasia Marked; MCH 27.7 pg (25.0-35.0); MCHC 30.6 g/dL (31.0-37.0); MCV 90.4 fL (80.0-100.0); Macrocytosis Slight; Platelet Count 201 k/uL (150-450); RBC 3.44 m/uL (3.80-5.40); RDW 21.5 % (11.5-15.5); WBC 5.3 k/uL (3.8-10.6)
[2018-08-29 06:56] LABS: Calcium 9.4 mg/dL (8.4-10.2)
[2018-08-29 07:18] LABS: Potassium 6.9 mmol/L (3.5-5.1)
[2018-08-29] MEDS: SYMBICORT 80-4.5 MCG INHALER INHALATION SCH (08:12)
[2018-08-29] MEDS ORDERED: NIFEdipine XL 90 MG TAB.ER.24 PO SCH (09:00)
[2018-08-29] MEDS: CALCIUM ACETATE 667 MG CAP PO SCH ×2 (09:16→12:19)
[2018-08-29] MEDS: predniSONE 10 MG TAB PO SCH (09:16)
[2018-08-29] MEDS: PANTOPRAZOLE 40 MG/10 ML VIAL IVP SCH (09:16)
[2018-08-29] MEDS: ONDANSETRON 4 MG/2 ML VIAL IVP PRN (09:16)
[2018-08-29] MEDS ORDERED: LACTULOSE 20 GM/30 ML CUP PO ONE (09:38)
[2018-08-29] MEDS ORDERED: SODIUM POLYSTYRENE SULFONATE 15 GM/60 ML BOTTLE PO STA (09:41)
--- NOTE | 2018-08-29 10:49 | P.GSCN ---
History of Present Illness Consult date: 08/29/18 Reason for Consult: Abdominal pain History of present illness: Patient hospitalized with ongoing complaints of nausea. She describes abdominal pain lower mid abdomen. Also complaining of constipation. The patient thought her constipation was contributing to her nausea. Stools are hard and infrequent. No rectal bleeding. No melanotic stools. Denies upper abdominal pain. Patient's found to be hyperkalemic in the hospital. She is on hemodialysis chronically. No history of known gallbladder disease. Ultrasound of the abdomen was obtained which showed a thickened gallbladder wall. No gallstones seen. Patient denies right upper quadrant pain. Tolerating diet currently. Review of Systems The patient denies any acute changes in vision or hearing, no dysphagia or odynophagia, no chest pain or shortness of breath, no dysuria or hematuria, no headache, no runny nose, no rectal bleeding or melena, no unexplained weight loss Past Medical History Past Medical History: Asthma, Heart Failure, Hypertension, Renal Disease Additional Past Medical History / Comment(s): recent admission for renal failure Other hx; ESRD d/t being born with polycystic kidney disease, failed kidney transplant, hemodialysis, cardiomegally with EF 20-25%, cardiac cath at [facility] to check coronary pressures-has L neck lump and R wrist lump since procedure that pt states are painful to touch, chronic anemia, vitamin D deficiency, chronic low back pain, ovarian cysts, irregular menses. History of Any Multi-Drug Resistant Organisms: None Reported Past Surgical History: Heart Catheterization, Hernia Repair Additional Past Surgical History / Comment(s): 06/14/18 cardiac cath at [facility] to check coronary pressures, 11/15/09 Failed kidney transplant R pelvis, dialysis catheter in and out, current L upper arm AVG, supra pubic hernia repair, transvaginal mesh, wisdom teeth extraction with anesthesia. Past Anesthesia/Blood Transfusion Reactions: No Reported Reaction Additional Past Anesthesia/Blood Transfusion Reaction / Comm: Pt has received blood in past without reaction. Past Psychological History: Anxiety, Depression Additional Psychological History / Comment(s): Pt resides with family. She is independent. She drives. She is disabled. She states she has anxiety and depression but no suicidal thoughts/ idealations or plans. She had one suicide attempt with overdose in 2012. Smoking Status: Former smoker Past Alcohol Use History: None Reported Additional Past Alcohol Use History / Comment(s): Pt states she quit smoking in 2016. Past Drug Use History: None Reported - Past Family History Father Family Medical History: No Reported History Additional Family Medical History / Comment(s): Father is healthy and is 59 yrs old. Mother Family Medical History: No Reported History Additional Family Medical History / Comment(s): Mother is healthy and is 57 yrs old. Medications and Allergies Home Medications Medication Instructions Recorded Confirmed Type Albuterol Sulfate [Proair Hfa] 2 puff INHALATION RT-Q6H PRN 01/22/16 08/28/18 History Calcium Acetate [PhosLo] 1,334 mg PO AC-TID 05/01/18 08/28/18 History ALPRAZolam [Xanax] 0.25 mg PO DAILY PRN 05/28/18 08/28/18 History Budesonide/Formoterol Fumarate 2 puff INHALATION RT-Q12H 05/28/18 08/28/18 History [Symbicort 80-4.5 Mcg Inhaler] Carvedilol [Coreg] 25 mg PO BID 05/28/18 08/28/18 History Cinacalcet [Sensipar] 30 mg PO MOWEFR 05/28/18 08/28/18 History NIFEdipine [NIFEdipine ER] 90 mg PO DAILY 05/28/18 08/28/18 History Pantoprazole [Protonix] 40 mg PO DAILY 05/28/18 08/28/18 History predniSONE 10 mg PO DAILY 05/28/18 08/28/18 History Ondansetron Odt [Zofran ODT] 4 mg PO Q8HR PRN #10 tab 07/02/18 08/28/18 Rx traZODone HCL 50 mg PO HS PRN 07/29/18 08/28/18 History hydrALAZINE HCL [Apresoline] 100 mg PO QID #240 tab 08/03/18 08/28/18 Rx Allergies Allergy/AdvReac Type Severity Reaction Status Date / Time hydralazine AdvReac Rapid Verified 08/28/18 09:11 Heart Rate Surgical - Exam Vital Signs Temp Pulse Resp BP Pulse Ox 98.7 F 100 18 186/118 94 L 08/27/18 22:10 08/27/18 22:10 08/27/18 22:10 08/27/18 22:10 08/27/18 22:10 Physical exam: General: Well-developed, well-nourished HEENT: Normocephalic, sclerae nonicteric Abdomen: Nontender, nondistended Extremities: No edema Neuro: Alert and oriented Results - Labs 08/29/18 05:37 08/29/18 05:37 Abnormal Lab Results - Last 24 Hours (Table) 08/28/18 08/29/18 08/29/18 Range/Units 06:45 05:37 05:37 RBC 3.44 L (3.80-5.40) m/uL Hgb 9.5 L (11.4-16.0) gm/dL Hct 31.0 L (34.0-46.0) % MCHC 30.6 L (31.0-37.0) g/dL RDW 21.5 H (11.5-15.5) % Sodium 132 L (137-145) mmol/L Potassium 6.9 H* (3.5-5.1) mmol/L Chloride 97 L (98-107) mmol/L BUN 47 H (7-17) mg/dL Creatinine 7.88 H* (0.52-1.04) mg/dL Phosphorus 6.9 H (2.5-4.5) mg/dL Diabetes panel 08/29/18 Range/Units 05:37 Sodium 132 L (137-145) mmol/L Potassium 6.9 H* (3.5-5.1) mmol/L Chloride 97 L (98-107) mmol/L Carbon Dioxide 23 (22-30) mmol/L BUN 47 H (7-17) mg/dL Creatinine 7.88 H* (0.52-1.04) mg/dL Glucose 87 (74-99) mg/dL Calcium 9.4 (8.4-10.2) mg/dL Calcium panel 08/28/18 08/29/18 Range/Units 06:45 05:37 Calcium 9.4 (8.4-10.2) mg/dL Phosphorus 6.9 H (2.5-4.5) mg/dL Pituitary panel 08/29/18 Range/Units 05:37 Sodium 132 L (137-145) mmol/L Potassium 6.9 H* (3.5-5.1) mmol/L Chloride 97 L (98-107) mmol/L Carbon Dioxide 23 (22-30) mmol/L BUN 47 H (7-17) mg/dL Creatinine 7.88 H* (0.52-1.04) mg/dL Glucose 87 (74-99) mg/dL Calcium 9.4 (8.4-10.2) mg/dL Adrenal panel 08/29/18 Range/Units 05:37 Sodium 132 L (137-145) mmol/L Potassium 6.9 H* (3.5-5.1) mmol/L Chloride 97 L (98-107) mmol/L Carbon Dioxide 23 (22-30) mmol/L BUN 47 H (7-17) mg/dL Creatinine 7.88 H* (0.52-1.04) mg/dL Glucose 87 (74-99) mg/dL Calcium 9.4 (8.4-10.2) mg/dL Assessment and Plan (1) Abdominal pain Narrative/Plan: Patient with admission for nausea and lower abdominal pain. Suspect constipation as the etiology for most of her symptoms. Do not clinically suspect cholecystitis currently. We'll follow closely with you. If symptoms persist or increase consider HIDA scan. Current Visit: No Status: Acute Code(s): R10.9 - UNSPECIFIED ABDOMINAL PAIN SNOMED Code(s): 94018382
--- NOTE | 2018-08-29 11:12 | P.PN ---
Subjective Patient is seen in follow-up for end-stage renal disease. She is maintained on hemodialysis on a Wednesday schedule for a left upper extremity AV fistula. Patient presented to the hospital yesterday with abdominal pain. Overall the pain is improved. Patient states the pain resolved after she had a bowel movement. Potassium level of 6.1 for which she underwent hemodialysis yesterday. Potassium this morning was 6.9. She is currently seen while undergoing hemodialysis. Vital signs are stable. General: The patient appeared well nourished and normally developed. HEENT: Head exam is unremarkable. Neck is without jugular venous distension. LUNGS: Lungs are clear to auscultation and percussion. Breath sounds decreased. HEART: Rate and Rhythm are regular. First and second heart sounds normal. No murmurs, rubs or gallops. ABDOMEN: Abdominal exam reveals normal bowel sounds. Non-tender and non- distended. No evidence of peritonitis. EXTREMITITES: No clubbing, cyanosis, or edema. Objective - Vital Signs Vital signs: Vital Signs Temp 98.9 F 08/29/18 04:00 Pulse 91 08/29/18 04:00 Resp 16 08/29/18 04:00 BP 135/76 08/29/18 04:00 Pulse Ox 98 08/29/18 04:00 Intake & Output 08/28/18 08/29/18 08/29/18 18:59 06:59 18:59 Intake Total 100 Output Total 0 0 Balance 100 0 Weight 52 kg Intake: Intake, IV Titration 100 Amount ACETAMINOPHEN IV (For NPO 100 ) 1,000 mg In Empty Bag 1 bag @ 400 mls/hr IVPB Q6HR [facility] Rx#:[id number] Output: Urine 0 0 Other: # Voids 0 # Bowel Movements 0 0 - Labs CBC & Chem 7: 08/29/18 05:37 08/29/18 05:37 Labs: Abnormal Lab Results - Last 24 Hours (Table) 08/28/18 08/29/18 08/29/18 Range/Units 06:45 05:37 05:37 RBC 3.44 L (3.80-5.40) m/uL Hgb 9.5 L (11.4-16.0) gm/dL Hct 31.0 L (34.0-46.0) % MCHC 30.6 L (31.0-37.0) g/dL RDW 21.5 H (11.5-15.5) % Sodium 132 L (137-145) mmol/L Potassium 6.9 H* (3.5-5.1) mmol/L Chloride 97 L (98-107) mmol/L BUN 47 H (7-17) mg/dL Creatinine 7.88 H* (0.52-1.04) mg/dL Phosphorus 6.9 H (2.5-4.5) mg/dL Assessment and Plan Plan: Assessment: 1. End-stage renal disease maintained on hemodialysis on a Wednesday schedule via left upper extremity AV fistula. 2. Hyperkalemia secondary to chronic kidney disease. 3. Abdominal pain related to constipation. Resolved. 4. 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 5. Hyponatremia secondary to chronic kidney disease. 6. Anemia of chronic kidney disease. 7. 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 8. Hypertension with chronic kidney disease. Controlled. Plan: Currently seen while undergoing hemodialysis. Repeat potassium level at 3 PM today. Potential discharge later this evening. Maintain prednisone 10 mg daily. I will start the patient on [place] outpatient for recurrent hyperkalemia.
[2018-08-29] MEDS ORDERED: CINACALCET 30 MG TAB PO SCH (12:00)
--- NOTE | 2018-08-29 12:56 | P.PN ---
Subjective 28-year-old female incisional disease Wednesday was a Wednesday schedule with a left upper arm fistula came in with complaints of nausea vomiting suprapubic pain patient doesn't urinate. Pain is sharp in nature moderate severity. Patient is a failed renal transplant in the past potassium was 6.1 patient is admitted here. Awaiting ultrasound and acute abdominal series. Patient will be started on Protonix Zofran. Etiology of abdominal pain is not clear at this time. Patient's potassium is being treated by nephrology. Patient received D5 with insulin may require kayexalate. Patient is an area hyperacute T waves patient is complaining of generalized body aches denied any fever 08/29/2018 Patient's abdominal pain improved patient is bit constipated will use Cleared for the patient the potassium remains 6.9 patient received a brief session of dialysis yesterday. Patient is undergoing hemodialysis today patient does have mild positive Rivas's sign. Patient was evaluated general surgery who wanted to monitor and possible HIDA scan today or tomorrow depending on her clinical improvement. she need to be on low potassium diet. Patient still has little bit of nausea expected to improve with the hemodialysis Constitutional: Denied any fatigue denied any fever. Cardio vascular: denied any chest pain, palpitations Gastrointestinal as mentioned in the interval history Pulmonary: Denied any shortness of breath cough Neurologic denied any new focal deficits All inpatient medications were reviewed and appropriate changes in these medications as dictated in the interval history and assessment and plan. Objective - Vital Signs Vital signs: Vital Signs Temp 98.9 F 08/29/18 04:00 Pulse 91 08/29/18 04:00 Resp 16 08/29/18 04:00 BP 135/76 08/29/18 04:00 Pulse Ox 98 08/29/18 04:00 Intake & Output 08/28/18 08/29/18 08/29/18 18:59 06:59 18:59 Intake Total 100 Output Total 0 0 Balance 100 0 Weight 52 kg Intake: Intake, IV Titration 100 Amount ACETAMINOPHEN IV (For NPO 100 ) 1,000 mg In Empty Bag 1 bag @ 400 mls/hr IVPB Q6HR [facility] Rx#:[id number] Output: Urine 0 0 Other: # Voids 0 # Bowel Movements 0 0 - Exam PHYSICAL EXAMINATION: GENERAL: The patient is alert and oriented x3, not in any acute distress. thin built female HEENT: Pupils are round and equally reacting to light. EOMI. No scleral icterus. No conjunctival pallor. Normocephalic, atraumatic. No pharyngeal erythema. No thyromegaly. CARDIOVASCULAR: S1 and S2 present. No murmurs, rubs, or gallops. PULMONARY: Chest is clear to auscultation, no wheezing or crackles. ABDOMEN: Soft, nontender, nondistended, normoactive bowel sounds. No palpable organomegaly. Rivas sign as mentioned above MUSCULOSKELETAL: No joint swelling or deformity. EXTREMITIES: No cyanosis, clubbing, or pedal edema. NEUROLOGICAL: Gross neurological examination did not reveal any focal deficits. SKIN: No rashes. - Labs CBC & Chem 7: 08/29/18 05:37 08/29/18 05:37 Labs: Abnormal Lab Results - Last 24 Hours (Table) 08/28/18 08/29/18 08/29/18 Range/Units 06:45 05:37 05:37 RBC 3.44 L (3.80-5.40) m/uL Hgb 9.5 L (11.4-16.0) gm/dL Hct 31.0 L (34.0-46.0) % MCHC 30.6 L (31.0-37.0) g/dL RDW 21.5 H (11.5-15.5) % Sodium 132 L (137-145) mmol/L Potassium 6.9 H* (3.5-5.1) mmol/L Chloride 97 L (98-107) mmol/L BUN 47 H (7-17) mg/dL Creatinine 7.88 H* (0.52-1.04) mg/dL Phosphorus 6.9 H (2.5-4.5) mg/dL Assessment and Plan Plan: -abdominal pain probably significant constipation patient is hypervolemic as we' ll use Kayexalate. -Hyperkalemia due to chronic kidney disease: Patient had him on dialysis history and is undergoing hemodialysis today patient will also be given kayexalate. Repeat basic metabolic profile tomorrow -FINDINGS OF CHRONIC CHOLECYSTITIS: FURTHER MANAGEMENT MENTIONED ABOVE GEN. SURGERY EVALUATED THE PATIENT. -End-stage renal disease more dialysis dependent -Generalized body aches ruled out out influenza flu patient may have acute viral illness, improved now -type 2 diabetes mellitus: Patient will be resumed on her home regimen -Hypertension -Asthma without any acute exacerbation
[2018-08-29 13:45] VITALS: RESP 18
[2018-08-29 13:47] VITALS: BP 163/82; PULSE 85; TEMP 96.9
--- NOTE | 2018-08-29 16:14 | P.DS ---
Providers Date of admission: 08/28/18 07:43 Expected date of discharge: 08/29/18 Attending physician: Agnieszka Rivera Consults: 08/28/18 07:40 Consult Physician Routine Consulting Provider: Lolis Kirby Consult Reason/Comments: hyperkalemia Do you want consulting provider notified?: Yes 08/29/18 09:38 Consult Physician Routine Consulting Provider: Wally Fitzpatrick Consult Reason/Comments: chronic cholicystitis Do you want consulting provider notified?: Yes Primary care physician: Nestor Frias [facility] Course: Patient is doing well. received lactulose. Potassium down to 4.5. Cleared by nephrology for discharge. Evaluated by surgery, symptoms related to constipation with no clinical suspicion of cholecystitis. Cleared for discharge by surgery. Patient is being discharged home in a stable condition with guarded prognosis. Please refer to progress note for full details. Patient Condition at Discharge: Stable Plan - Discharge Summary Discharge Rx Participant: No New Discharge Prescriptions: New Acetaminophen Tab [Tylenol] 650 mg PO Q6HR PRN tab PRN Reason: Mild Pain Or Fever > 100.5 Polyethylene Glycol 3350 [Miralax] 17 gm PO DAILY #1 packet No Action Albuterol Sulfate [Proair Hfa] 2 puff INHALATION RT-Q6H PRN PRN Reason: Shortness Of Breath Calcium Acetate [PhosLo] 1,334 mg PO AC-TID Cinacalcet [Sensipar] 30 mg PO MOWEFR ALPRAZolam [Xanax] 0.25 mg PO DAILY PRN PRN Reason: Anxiety predniSONE 10 mg PO DAILY Pantoprazole [Protonix] 40 mg PO DAILY NIFEdipine [NIFEdipine ER] 90 mg PO DAILY Carvedilol [Coreg] 25 mg PO BID Budesonide/Formoterol Fumarate [Symbicort 80-4.5 Mcg Inhaler] 2 puff INHALATION RT-Q12H Ondansetron Odt [Zofran ODT] 4 mg PO Q8HR PRN #10 tab PRN Reason: Nausea traZODone HCL 50 mg PO HS PRN PRN Reason: Insomnia hydrALAZINE HCL [Apresoline] 100 mg PO QID #240 tab Discharge Medication List Albuterol Sulfate [Proair Hfa] 2 puff INHALATION RT-Q6H PRN 01/22/16 [History] Calcium Acetate [PhosLo] 1,334 mg PO AC-TID 05/01/18 [History] ALPRAZolam [Xanax] 0.25 mg PO DAILY PRN 05/28/18 [History] Budesonide/Formoterol Fumarate [Symbicort 80-4.5 Mcg Inhaler] 2 puff INHALATION RT-Q12H 05/28/18 [History] Carvedilol [Coreg] 25 mg PO BID 05/28/18 [History] Cinacalcet [Sensipar] 30 mg PO MOWEFR 05/28/18 [History] NIFEdipine [NIFEdipine ER] 90 mg PO DAILY 05/28/18 [History] Pantoprazole [Protonix] 40 mg PO DAILY 05/28/18 [History] predniSONE 10 mg PO DAILY 05/28/18 [History] Ondansetron Odt [Zofran ODT] 4 mg PO Q8HR PRN #10 tab 07/02/18 [Rx] traZODone HCL 50 mg PO HS PRN 07/29/18 [History] hydrALAZINE HCL [Apresoline] 100 mg PO QID #240 tab 08/03/18 [Rx] Acetaminophen Tab [Tylenol] 650 mg PO Q6HR PRN tab 08/29/18 [Rx] Polyethylene Glycol 3350 [Miralax] 17 gm PO DAILY #1 packet 08/29/18 [Rx] Follow up Appointment(s)/Referral(s): Wally Fitzpatrick MD [Medical Doctor] - As Needed Mary Baez MD [Primary Care Provider] - 09/01/18 10:30 am ( with Luan) Robin Thompson DO [STAFF PHYSICIAN] - 1 Week Ambulatory/Diagnostic Orders: Basic Metabolic Panel [LAB.AMB] Time Frame: 3 Days, Location: None Selected Activity/Diet/Wound Care/Special Instructions: Hemodialysis as per nephrology. [place] as per nephrology Diet: low POtassium
[2018-08-29] MEDS ORDERED: LACTULOSE 20 GM/30 ML CUP PO SCH (21:00)
[2018-08-30] MEDS ORDERED: PANTOPRAZOLE 40 MG TABLET PO SCH (09:00)
== END 2018-08-29 17:19 | disposition home or self-care (01) | DRG 391 ==
LOC: EC 21:33 → 3SCARD 08-28 07:43
PROVIDERS: ADMIT Hospitalist; ATTEND Hospitalist
PROC: 5A1D70Z Performance of Urinary Filtration, Intermittent, Less than 6 Hours Per Day (ICD-10-PCS; principal; 2018-08-28)
DX: R11.2 Nausea with vomiting, unspecified (principal); N18.6 End stage renal disease; E87.1 Hypo-osmolality and hyponatremia; I13.2 Hypertensive heart and chronic kidney disease with heart failure and with stage 5 chronic kidney disease, or end stage renal disease; Q61.3 Polycystic kidney, unspecified; T86.12 Kidney transplant failure; D63.1 Anemia in chronic kidney disease; E11.22 Type 2 diabetes mellitus with diabetic chronic kidney disease; E87.5 Hyperkalemia; E88.89 Other specified metabolic disorders; F32.9 Major depressive disorder, single episode, unspecified; F41.9 Anxiety disorder, unspecified; I50.9 Heart failure, unspecified; J45.909 Unspecified asthma, uncomplicated; K59.00 Constipation, unspecified; Z91.5 Personal history of self-harm; Z79.51 Long term (current) use of inhaled steroids; Z79.52 Long term (current) use of systemic steroids; Z79.899 Other long term (current) drug therapy; Z87.891 Personal history of nicotine dependence; Z99.2 Dependence on renal dialysis; M54.5 Low back pain; G89.29 Other chronic pain; N83.209 Unspecified ovarian cyst, unspecified side
CPT/HCPCS: 36415; 74022; 76700; 80048; 80053; 83880; 84100; 84132; 85025; 85027; 87502; 90935; 94640; 96365; 96366; 96375; 96376; 99285

== ENCOUNTER 2018-11-16 12:45 | Emergency (ER) | payer BC, OTHER ==
--- NOTE | 2018-11-16 13:21 | ED ---
Female Urogenital HPI <LawsonOscar - Last Filed: 11/16/18 15:58> - General Source: patient, RN notes reviewed, old records reviewed Mode of arrival: ambulatory Limitations: no limitations - History of Present Illness Last Menstrual Period: 10/24/18 <Becky Marroquin - Last Filed: 11/16/18 16:33> - General Chief complaint: Vaginal Bleeding Stated complaint: Vaginal bleeding x3 weeks Time Seen by Provider: 11/16/18 12:56 - History of Present Illness Initial comments: 28-year-old male presents emergency department female presents emergency Department today with complaints of 3 weeks of vaginal bleeding. Patient states that she has history of end-stage renal disease does not produce urine. Patient receives dialysis Wednesdays and Fridays and received some today. Patient states that she is concerned with the prolonged vaginal bleeding. It st arted out with a normal menstrual cycle which is continue to pass clots the size of her fist. Patient states that she's had some shortness of breath and dizziness.. She denies any chest pain. Patient denies chance of . Patient states that she does not have an [employer] at this time. (Becky Marroquin) - Related Data Home Medications Medication Instructions Recorded Confirmed Albuterol Sulfate [Proair Hfa] 2 puff INHALATION RT-Q6H PRN 01/22/16 11/16/18 Calcium Acetate [PhosLo] 1,334 mg PO ACHS PRN 05/01/18 11/16/18 ALPRAZolam [Xanax] 0.25 mg PO HS PRN 05/28/18 11/16/18 Budesonide/Formoterol Fumarate 2 puff INHALATION RT-Q12H 05/28/18 11/16/18 [Symbicort 80-4.5 Mcg Inhaler] Carvedilol [Coreg] 25 mg PO BID 05/28/18 11/16/18 Cinacalcet [Sensipar] 30 mg PO MOWEFR 05/28/18 11/16/18 NIFEdipine [NIFEdipine ER] 90 mg PO DAILY 05/28/18 11/16/18 Pantoprazole [Protonix] 40 mg PO DAILY 05/28/18 11/16/18 predniSONE 10 mg PO DAILY 05/28/18 11/16/18 traZODone HCL 50 mg PO HS PRN 07/29/18 11/16/18 Lidocaine-Prilocaine Cream [Emla 1 applic TOPICAL DAILY PRN 11/16/18 11/16/18 Cream 2.5%/2.5%] Polyethylene Glycol 3350 [Miralax] 17 gm PO DAILY PRN 11/16/18 11/16/18 Sodium Bicarbonate Tab 650 mg PO BID 11/16/18 11/16/18 Sodium Polystyrene Sulfonate 15 gm PO HS 11/16/18 11/16/18 [Kayexalate] hydrALAZINE HCL [Apresoline] 100 mg PO TID 11/16/18 11/16/18 Previous Rx's Medication Instructions Recorded Ondansetron Odt [Zofran ODT] 4 mg PO Q8HR PRN #10 tab 07/02/18 Acetaminophen Tab [Tylenol] 650 mg PO Q6HR PRN tab 08/29/18 Allergies Allergy/AdvReac Type Severity Reaction Status Date / Time hydralazine AdvReac Rapid Verified 11/16/18 13:24 Heart Rate Review of Systems ROS Other: All systems not noted in ROS Statement are negative. <Oscar Lawson - Last Filed: 11/16/18 15:58> ROS Other: All systems not noted in ROS Statement are negative. <Becky Marroquin - Last Filed: 11/16/18 16:33> ROS Statement: Those systems with pertinent positive or pertinent negative responses have been documented in the HPI. Past Medical History Past Medical History: Asthma, Heart Failure, Hypertension, Renal Disease Additional Past Medical History / Comment(s): recent admission for renal failure Other hx; ESRD d/t being born with polycystic kidney disease, failed kidney transplant, hemodialysis, cardiomegally with EF 20-25%, cardiac cath 06/14/18 at [facility] to check coronary pressures-has L neck lump and R wrist lump since procedure that pt states are painful to touch, chronic anemia, vitamin D deficiency, chronic low back pain, ovarian cysts, irregular menses. History of Any Multi-Drug Resistant Organisms: None Reported Past Surgical History: Heart Catheterization, Hernia Repair Additional Past Surgical History / Comment(s): 06/14/18 cardiac cath at [facility] to check coronary pressures, 11/15/09 Failed kidney transplant R pelvis, dialysis catheter in and out, current L upper arm AVG, supra pubic hernia repair, transvaginal mesh, wisdom teeth extraction with anesthesia. Past Anesthesia/Blood Transfusion Reactions: No Reported Reaction Additional Past Anesthesia/Blood Transfusion Reaction / Comment(s): Pt has received blood in past without reaction. Past Psychological History: Anxiety, Depression Smoking Status: Former smoker Past Alcohol Use History: None Reported Past Drug Use History: None Reported - Past Family History Father Family Medical History: No Reported History Additional Family Medical History / Comment(s): Father is healthy and is 59 yrs old. Mother Family Medical History: No Reported History Additional Family Medical History / Comment(s): Mother is healthy and is 57 yrs old. <Becky Marroquin - Last Filed: 11/16/18 16:33> General Exam Limitations: no limitations General appearance: alert, in no apparent distress Head exam: Present: atraumatic, normocephalic, normal inspection Eye exam: Present: normal appearance, PERRL, EOMI. Absent: scleral icterus, conjunctival injection, periorbital swelling ENT exam: Present: normal exam, mucous membranes moist Neck exam: Present: normal inspection. Absent: tenderness, meningismus, lymphadenopathy Respiratory exam: Present: normal lung sounds bilaterally Cardiovascular Exam: Present: regular rate, normal rhythm, normal heart sounds. Absent: systolic murmur, diastolic murmur, rubs, gallop, clicks GI/Abdominal exam: Present: soft, normal bowel sounds. Absent: distended, tenderness, guarding, rebound, rigid External exam: Present: normal external exam Speculum exam: Present: vaginal bleeding (Heavy vaginal bleeding large clots noted.). Absent: normal speculum exam By manual exam: Present: normal by manual exam. Absent: cervical motion tend erness, adnexal tenderness Extremities exam: Present: normal inspection, full ROM, normal capillary refill. Absent: tenderness, pedal edema, joint swelling, calf tenderness Back exam: Present: normal inspection Neurological exam: Present: alert, oriented X3, CN II-XII intact Psychiatric exam: Present: normal affect, normal mood <Becky Marroquin - Last Filed: 11/16/18 16:33> - General Exam Comments Initial Comments: Pleasant -Congolese 28-year-old female. No significant distress. (Becky Marroquin) Course Vital Signs 11/16/18 11/16/18 12:51 14:34 Temperature 99.0 F Pulse Rate 106 H 100 Respiratory 20 16 Rate Blood Pressure 146/87 145/94 O2 Sat by Pulse 96 94 L Oximetry Medical Decision Making - Lab Data Result diagrams: 11/16/18 13:28 11/16/18 13:28 <Oscar Lawson - Last Filed: 11/16/18 15:58> - Lab Data Result diagrams: 11/16/18 13:28 11/16/18 13:28 - Radiology Data Radiology results: report reviewed <Becky Marroquin - Last Filed: 11/16/18 16:33> - Medical Decision Making I, Brian Lawson, personally saw and examined the patient. I have reviewed and agree with the PA findings, including all diagnostic interpretations and treatment plans as written unless otherwise stated. I was present for the amato portions of any procedures performed and the inclusive time noted for any critical care statement. (Oscar Lawson) - Lab Data Lab Results 11/16/18 11/16/18 11/16/18 Range/Units 13:28 13:28 13:28 WBC 4.6 (3.8-10.6) k/uL RBC 2.56 L (3.80-5.40) m/uL Hgb 7.2 L (11.4-16.0) gm/dL Hct 23.0 L (34.0-46.0) % MCV 89.7 (80.0-100.0) fL MCH 28.0 (25.0-35.0) pg MCHC 31.2 (31.0-37.0) g/dL RDW 22.7 H (11.5-15.5) % Plt Count 273 (150-450) k/uL Neutrophils % 64 % Lymphocytes % 22 % Monocytes % 4 % Eosinophils % 8 % Basophils % 1 % Neutrophils # 2.9 (1.3-7.7) k/uL Lymphocytes # 1.0 (1.0-4.8) k/uL Monocytes # 0.2 (0-1.0) k/uL Eosinophils # 0.4 (0-0.7) k/uL Basophils # 0.1 (0-0.2) k/uL Hypochromasia Slight Anisocytosis Moderate Macrocytosis Slight PT 12.1 H (9.0-12.0) sec INR 1.2 H (<1.2) APTT 27.7 (22.0-30.0) sec Sodium 137 (137-145) mmol/L Potassium 3.9 (3.5-5.1) mmol/L Chloride 94 L (98-107) mmol/L Carbon Dioxide 35 H (22-30) mmol/L Anion Gap 8 mmol/L BUN 12 (7-17) mg/dL Creatinine 3.57 H (0.52-1.04) mg/dL Est GFR (CKD-EPI)AfAm 19 (>60 ml/min/1.73 sqM) Est GFR (CKD-EPI)NonAf 17 (>60 ml/min/1.73 sqM) Glucose 113 H (74-99) mg/dL Calcium 8.4 (8.4-10.2) mg/dL Total Bilirubin 0.8 (0.2-1.3) mg/dL AST 27 (14-36) U/L ALT 28 (9-52) U/L Alkaline Phosphatase 108 (38-126) U/L Total Protein 7.4 (6.3-8.2) g/dL Albumin 4.0 (3.5-5.0) g/dL HCG, Qual Not Detected Trichomonas Ag (Rapid) (Negative) Blood Type Blood Type Recheck Antibody Screen Direct Antiglob Test Spec Expiration Date 11/16/18 11/16/18 Range/Units 14:15 15:18 WBC (3.8-10.6) k/uL RBC (3.80-5.40) m/uL Hgb (11.4-16.0) gm/dL Hct (34.0-46.0) % MCV (80.0-100.0) fL MCH (25.0-35.0) pg MCHC (31.0-37.0) g/dL RDW (11.5-15.5) % Plt Count (150-450) k/uL Neutrophils % % Lymphocytes % % Monocytes % % Eosinophils % % Basophils % % Neutrophils # (1.3-7.7) k/uL Lymphocytes # (1.0-4.8) k/uL Monocytes # (0-1.0) k/uL Eosinophils # (0-0.7) k/uL Basophils # (0-0.2) k/uL Hypochromasia Anisocytosis Macrocytosis PT (9.0-12.0) sec INR (<1.2) APTT (22.0-30.0) sec Sodium (137-145) mmol/L Potassium (3.5-5.1) mmol/L Chloride (98-107) mmol/L Carbon Dioxide (22-30) mmol/L Anion Gap mmol/L BUN (7-17) mg/dL Creatinine (0.52-1.04) mg/dL Est GFR (CKD-EPI)AfAm (>60 ml/min/1.73 sqM) Est GFR (CKD-EPI)NonAf (>60 ml/min/1.73 sqM) Glucose (74-99) mg/dL Calcium (8.4-10.2) mg/dL Total Bilirubin (0.2-1.3) mg/dL AST (14-36) U/L ALT (9-52) U/L Alkaline Phosphatase (38-126) U/L Total Protein (6.3-8.2) g/dL Albumin (3.5-5.0) g/dL HCG, Qual Trichomonas Ag (Rapid) Negative (Negative) Blood Type O Positive Blood Type Recheck No Antibody Screen POSITIVE Direct Antiglob Test Positive Spec Expiration Date 11/19/2018 - 8 - Radiology Data Ultrasound shows bilateral ovarian follicles. (Becky Marroquin) Disposition <Oscar Lawson - Last Filed: 11/16/18 15:58> Is patient prescribed a controlled substance at d/c from ED?: No Time of Disposition: 16:32 <Becky Marroquin - Last Filed: 11/16/18 16:33> Clinical Impression: Abnormal uterine bleeding Disposition: HOME SELF-CARE Condition: Good Instructions (If sedation given, give patient instructions): Menstruation (ED) Additional Instructions: Take the control as prescribed by Dr. Aleman. Follow-up with her next week. Return to the emergency department if any alarming signs or symptoms occur. Referrals: Mary Baez MD [Primary Care Provider] - 1-2 days Radha Aleman DO [Doctor of Osteopathic Medicine] - 1-2 days
[2018-11-16 13:41] LABS: Anisocytosis Moderate; Basophils # (A) 0.1 k/uL (0-0.2); Basophils % (A) 1 %; Eosinophils # (A) 0.4 k/uL (0-0.7); Eosinophils % (A) 8 %; HGB 7.2 gm/dL (11.4-16.0); Hypochromasia Slight; Lymphocytes % (A) 22 %; MCHC 31.2 g/dL (31.0-37.0); MCV 89.7 fL (80.0-100.0); Macrocytosis Slight; Mean Platelet Volume 7.4; Monocytes # (A) 0.2 k/uL (0-1.0); Monocytes % (A) 4 %; Neutrophils # (A) 2.9 k/uL (1.3-7.7); Neutrophils % (A) 64 %; Platelet Count 273 k/uL (150-450); RBC 2.56 m/uL (3.80-5.40); RDW 22.7 % (11.5-15.5); WBC 4.6 k/uL (3.8-10.6)
[2018-11-16 13:47] LABS: INR 1.2 (<1.2); Partial Thromboplastin Time 27.7 sec (22.0-30.0); Prothrombin Time 12.1 sec (9.0-12.0)
[2018-11-16 13:54] LABS: HCG,Qualitative Serum Not Detected
[2018-11-16 14:07] LABS: ALT 28 U/L (9-52); AST 27 U/L (14-36); Alkaline Phosphatase 108 U/L (38-126); Anion Gap 8 mmol/L; Blood Urea Nitrogen 12 mg/dL (7-17); Calcium 8.4 mg/dL (8.4-10.2); Carbon Dioxide 35 mmol/L (22-30); Chloride 94 mmol/L (98-107); Glucose 113 mg/dL (74-99); Potassium 3.9 mmol/L (3.5-5.1); Sodium 137 mmol/L (137-145); Total Bilirubin 0.8 mg/dL (0.2-1.3); Total Protein 7.4 g/dL (6.3-8.2)
--- NOTE | 2018-11-16 15:46 | US ---
EXAMINATION TYPE: US transvaginal DATE OF EXAM: 11/16/2018 COMPARISON: NONE CLINICAL HISTORY: EC patient with vaginal bleeding x 3 weeks. TECHNIQUE: Transvaginal (TV) per EC Date of LMP: approximately 3 weeks ago, 10/26/2018 EXAM MEASUREMENTS: Uterus: 6.2 x 3.5 x 3.1 cm Endometrial Stripe: 0.6 cm Right Ovary: 2.9 x 2.3 x 1.6 cm Left Ovary: 2.4 x 1.4 x 1.4 cm 1. Uterus: Anteverted; small Nabothian cyst in cervix = 0.5 x 0.3 x 0.2cm 2. Endometrium: thickness appears wnl 3. Right Ovary: multifollicular with largest involuting cyst = 1.5 x 1.0 x 1.0cm 4. Left Ovary: multiple small follicles Spectral, color and waveform doppler imaging shows good arterial and venous flow within the ovaries ; there is no evidence for ovarian torsion. 5. Bilateral Adnexa: wnl 6. Posterior cul-de-sac: wnl IMPRESSION: 1. Bilateral ovarian follicles
--- NOTE | 2018-11-16 16:28 | P.OBCN ---
History of Present Illness Consult date: 11/16/18 Requesting physician: Oscar Lawson Reason for consult: other (heavy menstrual bleeding for 3 weeks ) Chief complaint: Heavy vaginal bleeding for 3 weeks History of present illness: This is a pleasant 28-year-old 0 non patient that presents emergency department with complaints of heavy vaginal bleeding for about 3 weeks. Upon questioning the patient patient states that she started bleeding about 3 weeks ago the bleeding alternates between heavy and minimal. She states she placed a pad 3 hours ago and filled about half of it. Current pad has been on about half an hour and it is clean. Patient notes some cramping. Patient states that her normal hemoglobin runs around 8, in the emergency department today she is 7.2. Patient notes dysmenorrhea. Patient states she was on a control pill in the past but discontinued and is unsure why she discontinued the control pill. She is a known renal failure patient. She states she is behind on her [employer] care and is unsure when her last Pap smear was obtained. STD cultures and ultrasound were obtained. Ultrasound is reviewed by myself and is normal in nature. The uterus is noted to be within normal limits of size and shape 6 x 3 x 3 cm endometrium appears normal is 0.6 along with normal ovaries bilaterally. Review of Systems Constitutional: Reports fatigue, Denies chills, Denies fever Cardiovascular: Denies chest pain, Denies edema Respiratory: Denies dyspnea Menstruation: Reports menses variable (Positive dysmenorrhea), Reports period heavy Past Medical History Past Medical History: Asthma, Heart Failure, Hypertension, Renal Disease Additional Past Medical History / Comment(s): recent admission for renal failure Other hx; ESRD d/t being born with polycystic kidney disease, failed kidney transplant, hemodialysis, cardiomegally with EF 20-25%, cardiac cath 06/14/18 at [facility] to check coronary pressures-has L neck lump and R wrist lump since procedure that pt states are painful to touch, chronic anemia, vitamin D deficiency, chronic low back pain, ovarian cysts, irregular menses. History of Any Multi-Drug Resistant Organisms: None Reported Past Surgical History: Heart Catheterization, Hernia Repair Additional Past Surgical History / Comment(s): 06/14/18 cardiac cath at [facility] to check coronary pressures, 11/15/09 Failed kidney transplant R pelvis, dialysis catheter in and out, current L upper arm AVG, supra pubic hernia repair, transv aginal mesh, wisdom teeth extraction with anesthesia. Past Anesthesia/Blood Transfusion Reactions: No Reported Reaction Additional Past Anesthesia/Blood Transfusion Reaction / Comm: Pt has received blood in past without reaction. Past Psychological History: Anxiety, Depression Smoking Status: Former smoker Past Alcohol Use History: None Reported Past Drug Use History: None Reported - Past Family History Father Family Medical History: No Reported History Additional Family Medical History / Comment(s): Father is healthy and is 59 yrs old. Mother Family Medical History: No Reported History Additional Family Medical History / Comment(s): Mother is healthy and is 57 yrs old. Medications and Allergies Home Medications Medication Instructions Recorded Confirmed Type Albuterol Sulfate [Proair Hfa] 2 puff INHALATION RT-Q6H PRN 01/21/11/16/18 History Calcium Acetate [PhosLo] 1,334 mg PO ACHS PRN 05/01/18 11/16/18 History ALPRAZolam [Xanax] 0.25 mg PO HS PRN 05/28/18 11/16/18 History Budesonide/Formoterol Fumarate 2 puff INHALATION RT-Q12H 05/28/18 11/16/18 History [Symbicort 80-4.5 Mcg Inhaler] Carvedilol [Coreg] 25 mg PO BID 05/28/18 11/16/18 History Cinacalcet [Sensipar] 30 mg PO MOWEFR 05/28/18 11/16/18 History NIFEdipine [NIFEdipine ER] 90 mg PO DAILY 05/28/18 11/16/18 History Pantoprazole [Protonix] 40 mg PO DAILY 05/28/18 11/16/18 History predniSONE 10 mg PO DAILY 05/28/18 11/16/18 History Ondansetron Odt [Zofran ODT] 4 mg PO Q8HR PRN #10 tab 07/02/18 11/16/18 Rx traZODone HCL 50 mg PO HS PRN 07/29/18 11/16/18 History Acetaminophen Tab [Tylenol] 650 mg PO Q6HR PRN tab 08/29/18 11/16/18 Rx Lidocaine-Prilocaine Cream [Emla 1 applic TOPICAL DAILY PRN 11/16/18 11/16/18 History Cream 2.5%/2.5%] Polyethylene Glycol 3350 [Miralax] 17 gm PO DAILY PRN 11/16/18 11/16/18 History Sodium Bicarbonate Tab 650 mg PO BID 11/16/18 11/16/18 History Sodium Polystyrene Sulfonate 15 gm PO HS 11/16/18 11/16/18 History [Kayexalate] hydrALAZINE HCL [Apresoline] 100 mg PO TID 11/16/18 11/16/18 History Allergies Allergy/AdvReac Type Severity Reaction Status Date / Time hydralazine AdvReac Rapid Verified 11/16/18 13:24 Heart Rate Exam Osteopathic Statement: *. No significant issues noted on an osteopathic structural exam other than those noted in the History and Physical/Consult. Vital Signs Temp Pulse Resp BP Pulse Ox 11/16/18 14:34 100 16 145/94 94 L 11/16/18 12:51 99.0 F 106 H 20 146/87 96 Intake and Output 11/16/18 11/16/18 11/16/18 06:59 14:59 22:59 Other: Weight 57.606 kg Targeted physical exam is performed on this patient in general this is a well- nourished well-developed alert female in no acute distress. Patient is noted to have a soft abdomen, external genitalia is noted to be normal for age. The vaginal vault was noted to be normal with pink rugated, the cervix is noted to be primiparous with no bleeding comfort coming from the cervical os. The vaginal vault is noted to have minimal amount of blood. Extremities are noted to be without edema. Results Result Diagrams: 11/16/18 13:28 11/16/18 13:28 Abnormal Lab Results - Last 24 Hours (Table) 11/16/18 11/16/18 11/16/18 Range/Units 13:28 13:28 13:28 RBC 2.56 L (3.80-5.40) m/uL Hgb 7.2 L (11.4-16.0) gm/dL Hct 23.0 L (34.0-46.0) % RDW 22.7 H (11.5-15.5) % PT 12.1 H (9.0-12.0) sec INR 1.2 H (<1.2) Chloride 94 L (98-107) mmol/L Carbon Dioxide 35 H (22-30) mmol/L Creatinine 3.57 H (0.52-1.04) mg/dL Glucose 113 H (74-99) mg/dL Assessment and Plan (1) Menometrorrhagia Current Visit: Yes Status: Acute Code(s): N92.1 - EXCESSIVE AND FREQUENT MENSTRUATION WITH IRREGULAR CYCLE SNOMED Code(s): 043144241 (2) Dysmenorrhea Current Visit: Yes Status: Acute Code(s): N94.6 - DYSMENORRHEA, UNSPECIFIED SNOMED Code(s): 626792326 (3) Acute on chronic renal failure Current Visit: No Status: Acute Code(s): N17.9 - ACUTE KIDNEY FAILURE, UNSPECIFIED SNOMED Code(s): 712704960 (4) Anemia Current Visit: No Status: Acute Code(s): D64.9 - ANEMIA, UNSPECIFIED SNOMED Code(s): 898907508 Plan: Given the minimal bleeding noted on exam we will plan to discharge this patient home. Patient is normally anemic at 8 with a hemoglobin of 7.2 a comfortable following this patient in the office. We will plan on starting her on a control pill an effort to decrease her menstrual bleeding. Patient is informed of this plan and she is very comfortable with this and plans to follow up. Patient is noting some cramping we will give her Ofirmev prior to discharge so that she is comfortable through the evening.
[2018-11-16] MEDS ORDERED: ACETAMINOPHEN TAB 500 MG TAB PO STA (16:31)
[2018-11-16 16:47] VITALS: BP 159/109; PULSE 99; RESP 18; TEMP 98.4
[2018-11-17 13:11] LABS: C. trachomatis,PCR Negative (Neg,Equiv); Chlamydia trachomatis Source Vagina
[2018-11-17 14:13] LABS: N. gonorrhoeae,PCR Negative (Neg,Equiv); Neisseria Source Vagina
== END 2018-11-16 16:46 | disposition home or self-care (01) ==
LOC: EC 12:45
DX: N93.8 Other specified abnormal uterine and vaginal bleeding (principal); N92.1 Excessive and frequent menstruation with irregular cycle; N94.6 Dysmenorrhea, unspecified; N17.9 Acute kidney failure, unspecified; D63.1 Anemia in chronic kidney disease; R06.02 Shortness of breath; R42 Dizziness and giddiness; I13.2 Hypertensive heart and chronic kidney disease with heart failure and with stage 5 chronic kidney disease, or end stage renal disease; I50.9 Heart failure, unspecified; N18.6 End stage renal disease; J45.909 Unspecified asthma, uncomplicated; T86.12 Kidney transplant failure; Z87.891 Personal history of nicotine dependence; Z88.8 Allergy status to other drugs, medicaments and biological substances; Z79.01 Long term (current) use of anticoagulants; Z79.51 Long term (current) use of inhaled steroids; Z79.52 Long term (current) use of systemic steroids; Z79.899 Other long term (current) drug therapy; Z95.818 Presence of other cardiac implants and grafts; Z99.2 Dependence on renal dialysis
CPT/HCPCS: 36415; 76830; 80053; 84703; 85025; 85610; 85730; 86850; 86870; 86880; 86900; 86901; 87070; 87205; 87491; 87591; 87808; 93975; 99285

== ENCOUNTER 2018-11-18 07:00 | Inpatient (IN) | payer BC, OTHER ==
[2018-11-18] MEDS ORDERED: ACETAMINOPHEN TAB 500 MG TAB PO STA (07:26)
--- NOTE | 2018-11-18 07:29 | ED ---
General Adult HPI - General Chief complaint: Recheck/Abnormal Lab/Rx Stated complaint: dialysis issue Time Seen by Provider: 11/18/18 07:20 Source: patient, RN notes reviewed Mode of arrival: ambulatory Limitations: no limitations - History of Present Illness Initial comments: Patient is a pleasant 28-year-old female presenting to the emergency Department with reported low hemoglobin. Patient was at dialysis and had previous labs with hemoglobin of 7. Patient was told to have blood transfusion for level dropped to 7. Patient states she has been on her menses for the past 3 weeks. Patient states this is not normal for her. Patient does have some suprapubic cramping. Patient has been aching in general and requests pain medication for that. Patient has had temperature of 99. Patient denies cough or rhinorrhea or dyspnea. Patient states her heart rate does normally run high however not quite 1:15. - Related Data Home Medications Medication Instructions Recorded Confirmed Albuterol Sulfate [Proair Hfa] 2 puff INHALATION RT-Q6H PRN 01/22/16 11/18/18 Calcium Acetate [PhosLo] 1,334 mg PO ACHS PRN 05/01/18 11/18/18 ALPRAZolam [Xanax] 0.25 mg PO HS PRN 05/28/18 11/18/18 Budesonide/Formoterol Fumarate 2 puff INHALATION RT-Q12H 05/28/18 11/18/18 [Symbicort 80-4.5 Mcg Inhaler] Carvedilol [Coreg] 25 mg PO BID 05/28/18 11/18/18 Cinacalcet [Sensipar] 30 mg PO MOWEFR 05/28/18 11/18/18 NIFEdipine [NIFEdipine ER] 90 mg PO DAILY 05/28/18 11/18/18 Pantoprazole [Protonix] 40 mg PO DAILY 05/28/18 11/18/18 predniSONE 10 mg PO DAILY 05/28/18 11/18/18 traZODone HCL 50 mg PO HS PRN 07/29/18 11/18/18 Lidocaine-Prilocaine Cream [Emla 1 applic TOPICAL DAILY PRN 11/16/18 11/18/18 Cream 2.5%/2.5%] Polyethylene Glycol 3350 [Miralax] 17 gm PO DAILY PRN 11/16/18 11/18/18 Sodium Bicarbonate Tab 650 mg PO BID 11/16/18 11/18/18 Sodium Polystyrene Sulfonate 15 gm PO HS 11/16/18 11/18/18 [Kayexalate] hydrALAZINE HCL [Apresoline] 100 mg PO TID 11/16/18 11/18/18 Previous Rx's Medication Instructions Recorded Ondansetron Odt [Zofran ODT] 4 mg PO Q8HR PRN #10 tab 07/02/18 Acetaminophen Tab [Tylenol] 650 mg PO Q6HR PRN tab 08/29/18 Allergies Allergy/AdvReac Type Severity Reaction Status Date / Time hydralazine AdvReac Rapid Verified 11/18/18 07:59 Heart Rate Review of Systems ROS Statement: Those systems with pertinent positive or pertinent negative responses have been documented in the HPI. ROS Other: All systems not noted in ROS Statement are negative. Constitutional: Reports: as per HPI Eyes: Denies: eye pain ENT: Denies: ear pain Respiratory: Denies: cough, dyspnea Cardiovascular: Denies: chest pain Endocrine: Reports: fatigue Gastrointestinal: Reports: as per HPI. Denies: nausea, vomiting Genitourinary: Reports: abnormal menses, other (Patient does not make urine) Musculoskeletal: Denies: back pain Skin: Denies: rash Neurological: Denies: weakness Past Medical History Past Medical History: Asthma, Heart Failure, Hypertension, Renal Disease Additional Past Medical History / Comment(s): recent admission for renal failure Other hx; ESRD d/t being born with polycystic kidney disease, failed kidney transplant, hemodialysis, cardiomegally with EF 20-25%, cardiac cath 06/14/18 at [facility] to check coronary pressures-has L neck lump and R wrist lump since procedure that pt states are painful to touch, chronic anemia, vitamin D deficiency, chronic low back pain, ovarian cysts, irregular menses. History of Any Multi-Drug Resistant Organisms: None Reported Past Surgical History: Heart Catheterization, Hernia Repair Additional Past Surgical History / Comment(s): 06/14/18 cardiac cath at [facility] to check coronary pressures, 11/15/09 Failed kidney transplant R pelvis, dialysis catheter in and out, current L upper arm AVG, supra pubic hernia repair, transvaginal mesh, wisdom teeth extraction with anesthesia. Past Anesthesia/Blood Transfusion Reactions: No Reported Reaction Additional Past Anesthesia/Blood Transfusion Reaction / Comment(s): Pt has received blood in past without reaction. Past Psychological History: Anxiety, Depression Smoking Status: Former smoker Past Alcohol Use History: None Reported Past Drug Use History: None Reported - Past Family History Father Family Medical History: No Reported History Additional Family Medical History / Comment(s): Father is healthy and is 59 yrs old. Mother Family Medical History: No Reported History Additional Family Medical History / Comment(s): Mother is healthy and is 57 yrs old. General Exam Limitations: no limitations General appearance: alert, in no apparent distress Head exam: Present: atraumatic Eye exam: Present: normal appearance, PERRL ENT exam: Present: normal oropharynx Neck exam: Present: normal inspection Respiratory exam: Present: normal lung sounds bilaterally Cardiovascular Exam: Present: tachycardia GI/Abdominal exam: Present: soft, tenderness (Mild suprapubic tenderness to palpation), normal bowel sounds. Absent: distended, guarding, rebound, rigid, pulsatile mass Extremities exam: Present: normal inspection Neurological exam: Present: alert Psychiatric exam: Present: normal affect, normal mood Skin exam: Present: normal color Course Vital Signs 11/18/18 11/18/18 07:11 08:18 Temperature 98.3 F Pulse Rate 118 H 116 H Respiratory 22 18 Rate Blood Pressure 146/93 138/101 O2 Sat by Pulse 99 95 Oximetry - Reevaluation(s) Reevaluation #1: 11/18/18 08:18 Patient requesting pain medication for her chronic back pain. Medical Decision Making - Medical Decision Making Patient reevaluated and updated. Case was discussed in detail with Dr. Josue, covering for Dr. sevilla, who will admit. Nephrology will be placed on consult. BNP has been ordered. Blood culture and lactic acid have been ordered. There is some concern for sepsis. Patient will be started on antibiotics. Fluid bolus is held at this time secondary to no definition of severe sepsis as well as patient is on dialysis with possible fluid overload. - Lab Data Result diagrams: 11/18/18 07:38 11/18/18 07:38 Lab Results 11/18/18 11/18/18 11/18/18 Range/Units 07:32 07:38 07:38 WBC 6.1 (3.8-10.6) k/uL RBC 2.74 L (3.80-5.40) m/uL Hgb 7.9 L (11.4-16.0) gm/dL Hct 24.8 L (34.0-46.0) % MCV 90.4 (80.0-100.0) fL MCH 28.8 (25.0-35.0) pg MCHC 31.9 (31.0-37.0) g/dL RDW 23.3 H (11.5-15.5) % Plt Count 289 (150-450) k/uL Neutrophils % 74 % Lymphocytes % 16 % Monocytes % 3 % Eosinophils % 4 % Basophils % 1 % Neutrophils # 4.6 (1.3-7.7) k/uL Lymphocytes # 1.0 (1.0-4.8) k/uL Monocytes # 0.2 (0-1.0) k/uL Eosinophils # 0.3 (0-0.7) k/uL Basophils # 0.1 (0-0.2) k/uL Hypochromasia Moderate Anisocytosis Moderate Macrocytosis Slight PT (9.0-12.0) sec INR (<1.2) APTT (22.0-30.0) sec Sodium 139 (137-145) mmol/L Potassium 4.9 (3.5-5.1) mmol/L Chloride 98 (98-107) mmol/L Carbon Dioxide 30 (22-30) mmol/L Anion Gap 11 mmol/L BUN 38 H (7-17) mg/dL Creatinine 9.56 H* (0.52-1.04) mg/dL Est GFR (CKD-EPI)AfAm 6 (>60 ml/min/1.73 sqM) Est GFR (CKD-EPI)NonAf 5 (>60 ml/min/1.73 sqM) Glucose 91 (74-99) mg/dL Calcium 8.2 L (8.4-10.2) mg/dL Phosphorus 7.5 H (2.5-4.5) mg/dL Total Bilirubin 1.0 (0.2-1.3) mg/dL AST 27 (14-36) U/L ALT 26 (9-52) U/L Alkaline Phosphatase 68 (38-126) U/L Total Protein 7.8 (6.3-8.2) g/dL Albumin 4.4 (3.5-5.0) g/dL HCG, Qual Not Detected Influenza Type A RNA Not Detected (Not Detectd) Influenza Type B (PCR) Not Detected (Not Detectd) 11/18/18 Range/Units 07:38 WBC (3.8-10.6) k/uL RBC (3.80-5.40) m/uL Hgb (11.4-16.0) gm/dL Hct (34.0-46.0) % MCV (80.0-100.0) fL MCH (25.0-35.0) pg MCHC (31.0-37.0) g/dL RDW (11.5-15.5) % Plt Count (150-450) k/uL Neutrophils % % Lymphocytes % % Monocytes % % Eosinophils % % Basophils % % Neutrophils # (1.3-7.7) k/uL Lymphocytes # (1.0-4.8) k/uL Monocytes # (0-1.0) k/uL Eosinophils # (0-0.7) k/uL Basophils # (0-0.2) k/uL Hypochromasia Anisocytosis Macrocytosis PT 11.7 (9.0-12.0) sec INR 1.1 (<1.2) APTT 26.2 (22.0-30.0) sec Sodium (137-145) mmol/L Potassium (3.5-5.1) mmol/L Chloride (98-107) mmol/L Carbon Dioxide (22-30) mmol/L Anion Gap mmol/L BUN (7-17) mg/dL Creatinine (0.52-1.04) mg/dL Est GFR (CKD-EPI)AfAm (>60 ml/min/1.73 sqM) Est GFR (CKD-EPI)NonAf (>60 ml/min/1.73 sqM) Glucose (74-99) mg/dL Calcium (8.4-10.2) mg/dL Phosphorus (2.5-4.5) mg/dL Total Bilirubin (0.2-1.3) mg/dL AST (14-36) U/L ALT (9-52) U/L Alkaline Phosphatase (38-126) U/L Total Protein (6.3-8.2) g/dL Albumin (3.5-5.0) g/dL HCG, Qual Influenza Type A RNA (Not Detectd) Influenza Type B (PCR) (Not Detectd) - Radiology Data Radiology results: image reviewed (Chest x-ray shows bibasilar airspace disease with concern for pulmonary edema or multifocal pneumonia.) Disposition Clinical Impression: Pneumonia, Sepsis Disposition: ADMITTED IP TO THIS HOSP Is patient prescribed a controlled substance at d/c from ED?: No Referrals: Mary Baez MD [Primary Care Provider] - 1-2 days Decision Time: 08:45
[2018-11-18 07:56] LABS: Anisocytosis Moderate; Basophils # (A) 0.1 k/uL (0-0.2); Basophils % (A) 1 %; Eosinophils # (A) 0.3 k/uL (0-0.7); Eosinophils % (A) 4 %; HCT 24.8 % (34.0-46.0); HGB 7.9 gm/dL (11.4-16.0); Hypochromasia Moderate; Lymphocytes % (A) 16 %; MCH 28.8 pg (25.0-35.0); MCHC 31.9 g/dL (31.0-37.0); MCV 90.4 fL (80.0-100.0); Macrocytosis Slight; Mean Platelet Volume 8.2; Monocytes # (A) 0.2 k/uL (0-1.0); Monocytes % (A) 3 %; Neutrophils # (A) 4.6 k/uL (1.3-7.7); Neutrophils % (A) 74 %; Platelet Count 289 k/uL (150-450); RBC 2.74 m/uL (3.80-5.40); RDW 23.3 % (11.5-15.5); WBC 6.1 k/uL (3.8-10.6)
[2018-11-18 08:05] LABS: HCG,Qualitative Serum Not Detected
[2018-11-18 08:06] LABS: ALT 26 U/L (9-52); AST 27 U/L (14-36); Albumin 4.4 g/dL (3.5-5.0); Alkaline Phosphatase 68 U/L (38-126); Anion Gap 11 mmol/L; Blood Urea Nitrogen 38 mg/dL (7-17); Calcium 8.2 mg/dL (8.4-10.2); Carbon Dioxide 30 mmol/L (22-30); Chloride 98 mmol/L (98-107); Glucose 91 mg/dL (74-99); Phosphorus 7.5 mg/dL (2.5-4.5); Potassium 4.9 mmol/L (3.5-5.1); Sodium 139 mmol/L (137-145); Total Protein 7.8 g/dL (6.3-8.2)
[2018-11-18 08:07] LABS: INR 1.1 (<1.2); Partial Thromboplastin Time 26.2 sec (22.0-30.0); Prothrombin Time 11.7 sec (9.0-12.0)
[2018-11-18] MEDS ORDERED: MORPHINE SULFATE 4 MG/ML SYRINGE IV STA (08:18)
--- NOTE | 2018-11-18 08:35 | XR ---
EXAMINATION TYPE: XR chest 2V DATE OF EXAM: 11/18/2018 COMPARISON: 08/03/2018 HISTORY: Pain TECHNIQUE: Frontal and lateral views of the chest are obtained. FINDINGS: New multifocal opacities are seen in the retrocardiac airspace and right lower lung. There is also mild interstitial pulmonary edema and marked cardiomegaly. No pleural effusion or pneumothor ax is seen. No acute osseous pathology. IMPRESSION: Bibasilar airspace disease may represent confluent pulmonary edema or multifocal pneumon ia. Background mild interstitial pulmonary edema could be on the basis of cardiogenic fluid overload given marked cardiomegaly or noncardiogenic pulmonary edema.
[2018-11-18] MEDS ORDERED: AZITHROMYCIN 500 MG in SODIUM CHLORIDE 0.9% 250 ML IVPB STA (08:46)
[2018-11-18] MEDS ORDERED: PNEUMONIA PROTOCOL UTILIZED 1 EACH MISC PO PRN (08:46)
[2018-11-18 11:01] VITALS: BMI 23.8
[2018-11-18] MEDS ORDERED: LORazepam 2 MG/ML INJ IV STA (11:27)
--- NOTE | 2018-11-18 13:29 | P.NPCON ---
History of Present Illness - Reason for Consult end stage renal disease - History of Present Illness Reason for consultation: End-stage renal disease History of present illness: Patient is a 28-year-old female seen in renal consultation for end-stage renal disease. She is maintained on hemodialysis on a Wednesday schedule via left upper extremity AV fistula. Patient's hemoglobin as an ou tpatient was 7.0 and she was advised to go to the hospital to get a blood transfusion. However on admission her hemoglobin was 7.9. Patient states she is having heavy menstruation which has been going on for about a month now. She denies any melena or hematochezia. Denies chest pain. She was dyspneic and is currently on nasal cannula. Hemodynamically she is stable. No fever or chills. She is currently receiving antibiotics for pneumonia. No vomiting or diarrhea. 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 However due to noncompliance her kidney transplant failed and is now on hemodialysis. Patient has a history of systolic CHF with ejection fraction of 20-25% with mild to moderate mitral regurgitation, severe tricuspid regurgitation and severe pulmonary hypertension. Hemodynamically stable. Patient was evaluated in the emergency room. Vital signs are stable. General: The patient appeared well nourished and normally developed. HEENT: Head exam is unremarkable. Neck is without jugular venous distension. LUNGS: Breath sounds decreased. HEART: Rate and Rhythm are regular. First and second heart sounds normal. No murmurs, rubs or gallops. ABDOMEN: Abdominal exam reveals normal bowel sounds. Non-tender and non-diste nded. No evidence of peritonitis. EXTREMITITES: No clubbing, cyanosis, or edema. Past Medical History Past Medical History: Asthma, Heart Failure, Hypertension, Renal Disease Additional Past Medical History / Comment(s): ESRD d/t being born with polycystic kidney disease, failed kidney transplant, hemodialysis, cardiomegally with EF 20-25%, chronic anemia, vitamin D deficiency, chronic low back pain, ovarian cysts, irregular menses. History of Any Multi-Drug Resistant Organisms: None Reported Past Surgical History: Heart Catheterization, Hernia Repair Additional Past Surgical History / Comment(s): 06/14/18 cardiac cath at [facility] to check coronary pressures, 11/15/09 Failed kidney transplant R pelvis, dialysis catheter in and out, current L upper arm AVG, supra pubic hernia repair, transvaginal mesh, wisdom teeth extraction with anesthesia. Past Anesthesia/Blood Transfusion Reactions: No Reported Reaction Additional Past Anesthesia/Blood Transfusion Reaction / Comment(s): Pt has received blood in past without reaction. Smoking Status: Former smoker - Past Family History Father Family Medical History: No Reported History Additional Family Medical History / Comment(s): Father is healthy and is 59 yrs old. Mother Family Medical History: No Reported History Additional Family Medical History / Comment(s): Mother is healthy and is 57 yrs old. Medications and Allergies Home Medications Medication Instructions Recorded Confirmed Type Albuterol Sulfate [Proair Hfa] 2 puff INHALATION RT-Q6H PRN 01/21/11/18/18 History Calcium Acetate [PhosLo] 1,334 mg PO ACHS PRN 05/01/18 11/18/18 History ALPRAZolam [Xanax] 0.25 mg PO HS PRN 05/28/18 11/18/18 History Budesonide/Formoterol Fumarate 2 puff INHALATION RT-Q12H 05/28/18 11/18/18 History [Symbicort 80-4.5 Mcg Inhaler] Carvedilol [Coreg] 25 mg PO BID 05/28/18 11/18/18 History Cinacalcet [Sensipar] 30 mg PO MOWEFR 05/28/18 11/18/18 History NIFEdipine [NIFEdipine ER] 90 mg PO DAILY 05/28/18 11/18/18 History Pantoprazole [Protonix] 40 mg PO DAILY 05/28/18 11/18/18 History predniSONE 10 mg PO DAILY 05/28/18 11/18/18 History Ondansetron Odt [Zofran ODT] 4 mg PO Q8HR PRN #10 tab 07/02/18 11/18/18 Rx traZODone HCL 50 mg PO HS PRN 07/29/18 11/18/18 History Acetaminophen Tab [Tylenol] 650 mg PO Q6HR PRN tab 08/29/18 11/18/18 Rx Lidocaine-Prilocaine Cream [Emla 1 applic TOPICAL DAILY PRN 11/16/18 11/18/18 History Cream 2.5%/2.5%] Polyethylene Glycol 3350 [Miralax] 17 gm PO DAILY PRN 11/16/18 11/18/18 History Sodium Bicarbonate Tab 650 mg PO BID 11/16/18 11/18/18 History Sodium Polystyrene Sulfonate 15 gm PO HS 11/16/18 11/18/18 History [Kayexalate] hydrALAZINE HCL [Apresoline] 100 mg PO TID 11/16/18 11/18/18 History Allergies Allergy/AdvReac Type Severity Reaction Status Date / Time hydralazine AdvReac Rapid Verified 11/18/18 07:59 Heart Rate Physical Exam Vitals: Vital Signs Temp Pulse Resp BP Pulse Ox 11/18/18 13:15 97.9 F 103 H 18 136/98 96 11/18/18 12:49 97.9 F 102 H 18 139/98 95 11/18/18 11:30 121 H 19 133/107 93 L 11/18/18 08:59 123 H 20 138/100 98 11/18/18 08:18 116 H 18 138/101 95 11/18/18 07:11 98.3 F 118 H 22 146/93 99 Intake and Output 11/17/18 11/18/18 11/18/18 22:59 06:59 14:59 Other: Weight 58.967 kg Results - Lab Results Most recent lab results Calcium 8.2 mg/dL (8.4-10.2) L 11/18/18 07:38 Phosphorus 7.5 mg/dL (2.5-4.5) H 11/18/18 07:38 11/18/18 07:38 11/18/18 07:38 Assessment and Plan Plan: Assessment: 1. End-stage renal disease maintained on hemodialysis on a Wednesday schedule via left upper extremity AV fistula. 2. Status post failed renal transplant due to noncompliance. 3. Hypertension with chronic kidney disease. 4. Anemia of chronic kidney disease. Rule out iron deficiency. Hemoglobin on November 16 to 7.2 and a 7.9 today. Patient states she's been having heavy menstruation for about one month now. 5. Chronic kidney disease mineral bone disease maintained on Sensipar and PhosLo as outpatient. 6. Systolic CHF with ejection fraction of 20-25% with severe tricuspid regurgitation, mild to moderate mitral regurgitation, severe pulmonary hypertension. 7. Question about pneumonia. Maintain on antibiotics. Plan: Hemodialysis today. Hold off on blood transfusion as her hemoglobin is 7.9. Check iron studies. Add Aranesp. IV Lasix 80 mg 3 times daily. Resume PhosLo. Thank you for the consultation. I will continue to follow the patient during her hospital stay.
[2018-11-18] MEDS ORDERED: DARBEPOETIN ALFA 40 MCG/0.4 ML SYRINGE SQ SCH (14:00)
[2018-11-18] MEDS ORDERED: CALCIUM ACETATE 667 MG CAP PO PRN (17:49)
[2018-11-18] MEDS ORDERED: LIDOCAINE-PRILOCAINE 2.5-2.5% CREAM 5 GM TUBE TOPICAL PRN (17:49)
[2018-11-18] MEDS ORDERED: POLYETHYLENE GLYCOL 3350 17 GM POWD.PACK PO PRN (17:49)
[2018-11-18] MEDS ORDERED: traZODone HCL 50 MG TAB PO PRN (17:49)
[2018-11-18] MEDS ORDERED: ALBUTEROL NEBULIZED 2.5 MG/3 ML INHALATION PRN (17:49)
[2018-11-18] MEDS ORDERED: ACETAMINOPHEN TAB 325 MG TAB PO PRN (17:49)
[2018-11-18] MEDS ORDERED: ALPRAZolam 0.25 MG TAB PO PRN (17:49)
[2018-11-18] MEDS ORDERED: CINACALCET 30 MG TAB PO SCH (18:00)
[2018-11-18] MEDS: FUROSEMIDE 10 MG/ML 10 ML VIAL IV SCH (18:01)
[2018-11-18 19:41] LABS: Iron Saturation 18.07 (12.00-45.00)
[2018-11-18] MEDS: SYMBICORT 80-4.5 MCG INHALER INHALATION SCH (20:08)
[2018-11-18] MEDS: HYDROcodone/APAP 5-325MG 1 EACH TAB PO PRN (20:58)
[2018-11-18] MEDS: hydrALAZINE HCL 50 MG TAB PO SCH (20:59)
[2018-11-18] MEDS: HEPARIN SODIUM,PORCINE 5,000 UNIT/ML 1 ML VIAL SQ SCH (20:59)
[2018-11-18] MEDS: CALCIUM ACETATE 667 MG CAP PO SCH (20:59)
[2018-11-18] MEDS ORDERED: NON-FORMULARY DRUG (Carvedilol [Coreg] 25 MG) PO SCH (21:00)
--- NOTE | 2018-11-18 21:56 | P.HPIM ---
History of Present Illness H&P Date: 11/18/18 Chief Complaint: Low hemoglobin Patient is a 28 old female with a known history of ESRD on hemodialysis Wednesday and Wednesday, hypertension, asthma and history of failed renal transplant and chronic systolic CHF with ejection fraction 20-25% was sent to Hospital from outpatient hemodialysis center due to low hemoglobin.. Patient was found to have a hemoglobin level of 7.0 when tested at outpatient facility and was sent to Hospital for blood transfusion. Patient had repeat CBC done in the ER showed hemoglobin level of 7.9. Patient says that she has been having heavy menstruation for about a month now which has been going. Otherwise denied any complaints of dark-colored stools. No hematemesis or melena or hematochezia. Currently denied any complains of chest pain. Patient is complaining of generalized body aches. No fever no chills. Patient was found have bibasilar air space disease and multifocal pneumonia in the ER as per x- ray. Patient was started on antibiotics in the form of ceftriaxone and azithromycin. Patient denied any cough or sputum production. No worsening shortness of breath. No nausea vomiting or diarrhea. Chest x-ray showed bibasilar airspace disease may represent confluent pulmonary edema R multifocal pneumonia. Background mild interstitial pulmonary edema could be on the basis of cardiogenic fluid overload given marked cardiomegaly or noncardiogenic pulmonary edema. WBC 6.1. Patient has been afebrile Influenza negative Review of Systems Constitutional: Patient denies any fever or chills . Generalized body aches.. Abdomen: Patient denied nausea vomiting and diarrhea and abdominal pain. Cardiovascular: Patient denies any chest pain or short of breath no palpitat ions. Respiratory: patient denied any cough is from production. No shortness of breath Neurologic: Patient denied any numbness or tingling headache. Musculoskeletal: Patient denies any complaints of joint swelling or deformity. Skin: Negative Psychiatric: Negative Endocrine: No heat or cold intolerance. No recent weight gain. Genitourinary: No dysuria or hematuria. All other 14 point ROS negative except the above Past Medical History Past Medical History: Asthma, Heart Failure, Hypertension, Renal Disease Additional Past Medical History / Comment(s): ESRD d/t being born with polycystic kidney disease, failed kidney transplant, hemodialysis, cardiomegally with EF 20-25%, chronic anemia, vitamin D deficiency, chronic low back pain, ovarian cysts, irregular menses. History of Any Multi-Drug Resistant Organisms: None Reported Past Surgical History: Heart Catheterization, Hernia Repair Additional Past Surgical History / Comment(s): 06/14/18 cardiac cath at [facility] to check coronary pressures, 11/15/09 Failed kidney transplant R pelvis, dialysis catheter in and out, current L upper arm AVG, supra pubic hernia repair, transvaginal mesh, wisdom teeth extraction with anesthesia. Past Anesthesia/Blood Transfusion Reactions: No Reported Reaction Additional Past Anesthesia/Blood Transfusion Reaction / Comment(s): Pt has received blood in past without reaction. Smoking Status: Former smoker - Past Family History Father Family Medical History: No Reported History Additional Family Medical History / Comment(s): Father is healthy and is 59 yrs old. Mother Family Medical History: No Reported History Additional Family Medical History / Comment(s): Mother is healthy and is 57 yrs old. Medications and Allergies Home Medications Medication Instructions Recorded Confirmed Type Albuterol Sulfate [Proair Hfa] 2 puff INHALATION RT-Q6H PRN 01/22/16 11/18/18 History Calcium Acetate [PhosLo] 1,334 mg PO ACHS PRN 05/01/18 11/18/18 History ALPRAZolam [Xanax] 0.25 mg PO HS PRN 05/28/18 11/18/18 History Budesonide/Formoterol Fumarate 2 puff INHALATION RT-Q12H 05/28/18 11/18/18 History [Symbicort 80-4.5 Mcg Inhaler] Carvedilol [Coreg] 25 mg PO BID 05/28/18 11/18/18 History Cinacalcet [Sensipar] 30 mg PO MOWEFR 05/28/18 11/18/18 History NIFEdipine [NIFEdipine ER] 90 mg PO DAILY 05/28/18 11/18/18 History Pantoprazole [Protonix] 40 mg PO DAILY 05/28/18 11/18/18 History predniSONE 10 mg PO DAILY 05/28/18 11/18/18 History Ondansetron Odt [Zofran ODT] 4 mg PO Q8HR PRN #10 tab 07/02/18 11/18/18 Rx traZODone HCL 50 mg PO HS PRN 07/29/18 11/18/18 History Acetaminophen Tab [Tylenol] 650 mg PO Q6HR PRN tab 08/29/18 11/18/18 Rx Lidocaine-Prilocaine Cream [Emla 1 applic TOPICAL DAILY PRN 11/16/18 11/18/18 History Cream 2.5%/2.5%] Polyethylene Glycol 3350 [Miralax] 17 gm PO DAILY PRN 11/16/18 11/18/18 History Sodium Bicarbonate Tab 650 mg PO BID 11/16/18 11/18/18 History Sodium Polystyrene Sulfonate 15 gm PO HS 11/16/18 11/18/18 History [Kayexalate] hydrALAZINE HCL [Apresoline] 100 mg PO TID 11/16/18 11/18/18 History Allergies Allergy/AdvReac Type Severity Reaction Status Date / Time hydralazine AdvReac Rapid Verified 11/18/18 07:59 Heart Rate Physical Exam Vitals: Vital Signs Temp Pulse Pulse Resp BP BP Pulse Ox 11/18/18 14:57 97.8 F 116 H 16 138/87 95 11/18/18 14:52 95 11/18/18 13:15 97.9 F 103 H 18 136/98 96 11/18/18 12:49 97.9 F 102 H 18 139/98 95 11/18/18 11:30 121 H 19 133/107 93 L 11/18/18 08:59 123 H 20 138/100 98 11/18/18 08:18 116 H 18 138/101 95 11/18/18 07:11 98.3 F 118 H 22 146/93 99 Intake and Output 11/18/18 11/18/18 11/18/18 06:59 14:59 22:59 Other: # Voids 0 Weight 58.967 kg PHYSICAL EXAMINATION: Patient is lying in the bed comfortably, no acute distress, awake alert and charlene ented.. HEENT: Normocephalic. Neck is supple. Pupils reactive. Nostrils clear. Oral cavity is moist. Ears reveal no drainage. Neck reveals no JVD, carotid bruits, or thyromegaly. CHEST EXAMINATION: Trachea is central. Symmetrical expansion. Bibasilar diminished air entry and scattered rhonchi.. CARDIAC: Normal S1, S2 with no gallops. No murmurs ABDOMEN: Soft. Bowel sounds normal. No organomegaly. No abdominal bruits. Extremities: reveal no edema. No clubbing or cyanosis Neurologically awake, alert, oriented x3 with well-coordinated movements. No focal deficits noted Skin: No rash or skin lesions. Psychiatric: Coperative. Nonsuicidal Musculoskeletal: No joint swelling or deformity. Normal range of motion. Results CBC & Chem 7: 11/18/18 07:38 11/18/18 07:38 Labs: Abnormal Lab Results - Last 24 Hours (Table) 11/18/18 11/18/18 Range/Units 07:38 07:38 RBC 2.74 L (3.80-5.40) m/uL Hgb 7.9 L (11.4-16.0) gm/dL Hct 24.8 L (34.0-46.0) % RDW 23.3 H (11.5-15.5) % BUN 38 H (7-17) mg/dL Creatinine 9.56 H* (0.52-1.04) mg/dL Calcium 8.2 L (8.4-10.2) mg/dL Phosphorus 7.5 H (2.5-4.5) mg/dL Thrombosis Risk Factor Assmnt - DVT/VTE Prophylaxis DVT/VTE Prophylaxis: Pharmacologic Prophylaxis ordered - Choose All That Apply Any of the Below Risk Factors Present?: Yes Each Factor Represents 1 point: Sepsis (< 1month), Serious lung disease incl. pneumonia (< 1month) Other Risk Factors: No Other congenital or acquired thrombophilia - If yes, enter type in comment: No Thrombosis Risk Factor Assessment Total Risk Factor Score: 2 Thrombosis Risk Factor Assessment Level: Low Risk Assessment and Plan Assessment: Bibasilar airspace disease with possible pneumonia. No suspicion. pulmonary edema ESRD on hemodialysis Wednesday and Wednesday left upper AV fistula Uncontrolled hypertension Anemia of chronic disease baseline hemoglobin around 7.2. Currently 7.9. Patient is also stating that she's been having heavy menstruation for about a month now Chronic CHF with systolic dysfunction ejection fraction 25% Severe tricuspid regurgitation, [id number] mitral regurgitation and severe pulmonary hypertension Polycystic kidney disease. Failed renal transplant Vitamin D deficiency Chronic low back pain Ovarian cysts, irregular menses. DVT prophylaxis Previous history of smoking plan: Patient will be continued on empiric antibiotics. Nephrology has seen the patient and is scheduled for hemodialysis today. We will repeat chest x-ray. Monitor H&H. Continue with the home blood pressure medications and pain medications. Follow up closely. Continue with multivitamins and PhosLo. Further recommendations based on the clinical course. Prognosis is guarded. Time with Patient: Greater than 30
[2018-11-19] MEDS: FUROSEMIDE 10 MG/ML 10 ML VIAL IV SCH ×2 (01:49→08:50)
[2018-11-19] MEDS ORDERED: PANTOPRAZOLE 40 MG TABLET PO SCH (07:30)
--- NOTE | 2018-11-19 07:54 | XR ---
EXAMINATION TYPE: XR chest 2V DATE OF EXAM: 11/19/2018 COMPARISON: 11/18/2018 HISTORY: 28-year-old female pneumonia TECHNIQUE: PA and lateral views FINDINGS: Heart mildly enlarged. Diffuse interstitial densities. More focal patchy medial right basilar opacity . No sizable effusion. IMPRESSION: 1. Cardiomegaly and interstitial changes. Correlate for possible mild pulmonary vascular congestion. Bronchitis, asthma, or atypical pneumonias are also considerations. 2. More focal patchy right basilar atelectasis or infiltrate is similar.
[2018-11-19] MEDS: hydrALAZINE HCL 50 MG TAB PO SCH (08:50)
[2018-11-19] MEDS: HEPARIN SODIUM,PORCINE 5,000 UNIT/ML 1 ML VIAL SQ SCH ×2 (08:50→08:52)
[2018-11-19] MEDS: CALCIUM ACETATE 667 MG CAP PO SCH ×2 (08:51→11:03)
[2018-11-19 08:56] LABS: Anisocytosis Moderate; Basophils # (A) 0.1 k/uL (0-0.2); Basophils % (A) 1 %; Eosinophils # (A) 0.4 k/uL (0-0.7); Eosinophils % (A) 7 %; HCT 23.7 % (34.0-46.0); HGB 7.2 gm/dL (11.4-16.0); Hypochromasia Moderate; Lymphocytes # (A) 0.7 k/uL (1.0-4.8); Lymphocytes % (A) 13 %; MCH 28.1 pg (25.0-35.0); MCHC 30.4 g/dL (31.0-37.0); MCV 92.4 fL (80.0-100.0); Macrocytosis Slight; Mean Platelet Volume 7.6; Monocytes # (A) 0.2 k/uL (0-1.0); Monocytes % (A) 3 %; Neutrophils # (A) 4.4 k/uL (1.3-7.7); Neutrophils % (A) 75 %; Platelet Count 248 k/uL (150-450); RBC 2.56 m/uL (3.80-5.40); RDW 22.8 % (11.5-15.5); WBC 5.9 k/uL (3.8-10.6)
[2018-11-19] MEDS ORDERED: predniSONE 10 MG TAB PO SCH (09:00)
[2018-11-19] MEDS ORDERED: NIFEdipine XL 90 MG TAB.ER.24 PO SCH (09:00)
[2018-11-19] MEDS ORDERED: AZITHROMYCIN 500 MG TAB PO SCH (09:00)
[2018-11-19 09:13] LABS: Calcium 8.1 mg/dL (8.4-10.2); Potassium 4.8 mmol/L (3.5-5.1)
[2018-11-19] MEDS: SYMBICORT 80-4.5 MCG INHALER INHALATION SCH (09:29)
--- NOTE | 2018-11-19 10:07 | P.PN ---
Subjective Progress Note Date: 11/19/18 Principal diagnosis: Mrs. Winslow is doing fairly well has no new complaints. No bleeding from any source except she continues to have small amount of vaginal bleeding for the last 4 weeks. No dizziness chest pain. No fatigue. Good appetite. No abdominal pain no GERD. She was dialyzed yesterday. Her hemoglobin was 10.1 earlier here on 08/28/2018 4 months ago, admission kurt armijo was 7.2 on 417 and then went up to 7.9 on 11/18/2018 , 7.2 this morning therefore stable History of present illness: Patient is a 28-year-old female seen in renal consultation for end-stage renal disease. She is maintained on hemodialysis on a Wednesday schedule via left upper extremity AV fistula. Patient's hemoglobin as an outpatient was 7.0 and she was advised to go to the hospital to get a blood transfusion. However on admission her hemoglobin was 7.9. Patient states she is having heavy menstruation which has been going on for about a month now. She denies any melena or hematochezia. Denies chest pain. Objective - Vital Signs Vital signs: Vital Signs Temp 98.7 F 11/19/18 07:00 Pulse 95 11/19/18 07:00 Resp 20 11/19/18 07:00 BP 143/91 11/19/18 07:00 Pulse Ox 100 11/19/18 07:00 Intake & Output 11/18/18 11/19/18 11/19/18 18:59 06:59 18:59 Intake Total 200 Output Total 0 Balance 0 200 Weight 58.967 kg Intake: Oral 200 Output: Urine 0 Other: # Voids 0 Vital signs are stable. General: The patient appeared well nourished and normally developed. HEENT: Head exam is unremarkable. Neck is without jugular venous distension. LUNGS: Breath sounds decreased. HEART: Rate and Rhythm are regular. First and second heart sounds normal. No murmurs, rubs or gallops. ABDOMEN: Abdominal exam reveals normal bowel sounds. Non-tender and non- distended. No evidence of peritonitis. EXTREMITITES: No clubbing, cyanosis, or edema. - Labs CBC & Chem 7: 11/19/18 08:19 11/19/18 08:19 Labs: Abnormal Lab Results - Last 24 Hours (Table) 11/18/18 11/19/18 11/19/18 Range/Units 07:38 08:19 08:19 RBC 2.56 L (3.80-5.40) m/uL Hgb 7.2 L (11.4-16.0) gm/dL Hct 23.7 L (34.0-46.0) % MCHC 30.4 L (31.0-37.0) g/dL RDW 22.8 H (11.5-15.5) % Lymphocytes # 0.7 L (1.0-4.8) k/uL BUN 32 H (7-17) mg/dL Creatinine 6.37 H (0.52-1.04) mg/dL Glucose 109 H (74-99) mg/dL Calcium 8.1 L (8.4-10.2) mg/dL Iron 45 L (50-170) ug/dL Ferritin 6164.7 H (10.0-291.0) ng/mL Assessment and Plan Assessment: Assessment: 1. End-stage renal disease maintained on hemodialysis on a Wednesday schedule via left upper extremity AV fistula. Last dialysis yesterday Wednesday and did well 2. Admitted with anemia. Prolonged vaginal bleeding. Saturation 18% on 11/18/2018 yesterday 2. Status post failed renal transplant due to noncompliance. 3. Hypertension with chronic kidney disease. 4. Chronic kidney disease mineral bone disease maintained on Sensipar and PhosLo as outpatient. 6. Systolic CHF with ejection fraction of 20-25% with severe tricuspid regurgitation, mild to moderate mitral regurgitation, severe pulmonary hypertension. 7. Question about pneumonia. Maintain on antibiotics. Plan: Hemodialysis next is on Wednesday . Hold off on blood transfusion as her hemoglobin is 7.9.> 7.2 Will give her IV Ferrlecit 125 mg 1 dose. Continue PhosLo. Consider Possible workup for GI sources of bleeding
[2018-11-19] MEDS ORDERED: SODIUM FERRIC GLUCONAT-SUCROSE 125 MG in SODIUM CHLORIDE 0.9% 100 ML IVPB ONE (11:00)
[2018-11-19] MEDS: HYDROcodone/APAP 5-325MG 1 EACH TAB PO PRN (11:11)
[2018-11-19] MEDS ORDERED: HYDROmorphone 0.5 MG/0.5 ML SYRINGE IVP STA (13:02)
[2018-11-19] MEDS ORDERED: ONDANSETRON 4 MG/2 ML VIAL IVP PRN (14:33)
[2018-11-19 15:26] VITALS: BP 156/104; PULSE 109; RESP 16; TEMP 98.9
--- NOTE | 2018-11-22 14:25 | CDI ---
Documentation Clarification Form Date: 11/22/18 From: Kyra Waggoner Phone: If questions call Siria Valdez @ [phone], Hours-8:30 am & 5 pm Rene Fernandez Admit Date: 11/18/2018 8:40:00 AM Patient Name: Rosi Winslow Visit Number: [id number] Discharge Date: 11/19/2018 4:32:00 PM ATTENTION: The Clinical Documentation Specialists (CDI) and [facility] Coding Staff appreciate your assistance in clarifying documentation. Please respond to the clarification below the line at the bottom and electronically sign. The CDI & [facility] Coding staff will review the response and follow-up if needed. Please note: Queries are made part of the Legal Health Record. If you have any questions, please contact the author of this message via ITS. Dr. Hasmukh Josue Conflicting documentation has been found in the medical record: Sepsis is only documented in the ED note. History/Risk Factors: ESRD, HTN, chronic systolic CHF, on dialysis, anemia in chronic kidney disease Clinical Indicators: T-98.3, P-118, R-22, BP-146/93, O2 sat-99 Treatment: IV Zithromax & Rocephin, IV Lasix 80 mg Q 8HR, In your opinion, what is the most clinically appropriate diagnosis for this patient? Sepsis ruled out Sepsis ruled in Other explanation of clinical findings Unable to determine (no explanation for clinical findings) Sepsis ruled in MTDD
--- NOTE | 2018-11-28 11:28 | P.DS ---
Providers Date of admission: 11/18/18 08:40 Expected date of discharge: 11/19/18 Attending physician: Hasmukh Josue Consults: 11/18/18 08:46 Consult Physician Routine Consulting Provider: Lolis Kirby Consult Reason/Comments: crf, dialysis Do you want consulting provider notified?: Yes Primary care physician: Nestor Hernandez [facility] Course: Discharge diagnosis Bibasilar airspace disease. Right greater than left. with possible pneumonia. pulmonary edema ESRD on hemodialysis Wednesday and Wednesday left upper AV fistula Uncontrolled hypertension Anemia of chronic disease baseline hemoglobin around 7.2. Currently 7.9. Patient is also stating that she's been having heavy menstruation for about a month now Chronic CHF with systolic dysfunction ejection fraction 25% Severe tricuspid regurgitation, [id number] mitral regurgitation and severe pulmonary hypertension Polycystic kidney disease. Failed renal transplant Vitamin D deficiency Chronic low back pain Ovarian cysts, irregular menses. DVT prophylaxis Previous history of smoking Hospital course Patient is a 28 old female with a known history of ESRD on hemodialysis Wednesday and Wednesday, hypertension, asthma and history of failed renal transplant and chronic systolic CHF with ejection fraction 20-25% was sent to Hospital from outpatient hemodialysis center due to low hemoglobin.. Patient was found to have a hemoglobin level of 7.0 when tested at outpatient facility and was sent to Hospital for blood transfusion. Patient had repeat CBC done in the ER showed hemoglobin level of 7.9. Patient says that she has been having heavy menstruation for about a month now which has been going. Otherwise denied any complaints of dark-colored stools. No hematemesis or melena or hematoc hezia. Currently denied any complains of chest pain. Patient is complaining of generalized body aches. No fever no chills. Patient was found have bibasilar air space disease and multifocal pneumonia in the ER as per x-ray. Patient was started on antibiotics in the form of ceftriaxone and azithromycin. Patient denied any cough or sputum production. No worsening shortness of breath. No nausea vomiting or diarrhea. Chest x-ray showed bibasilar airspace disease may represent confluent pulmonary edema R multifocal pneumonia. Background mild interstitial pulmonary edema could be on the basis of cardiogenic fluid overload given marked cardiomegaly or noncardiogenic pulmonary edema. WBC 6.1. Patient has been afebrile Influenza negative Patient was continued on empiric antibiotics. Nephrology has seen the patient and is scheduled for hemodialysis . Repeat chest x-ray showed more focal patchy right basilar atelectasis or infiltrate similar in appearance. Continue with antibiotic course otherwise.. Continue with the home blood pressure medications and pain medications. Follow up closely. Continue with multivitamins and PhosLo. Prognosis is guarded. Patient did improve clinically with above management and is stable to be discharged home. PHYSICAL EXAMINATION: Patient is lying in the bed comfortably, no acute distress, awake alert and oriented.. HEENT: Normocephalic. Neck is supple. Pupils reactive. Nostrils clear. Oral cavity is moist. Ears reveal no drainage. Neck reveals no JVD, carotid bruits, or thyromegaly. CHEST EXAMINATION: Trachea is central. Symmetrical expansion. Right basilar crackles. Otherwise clear to auscultation. CARDIAC: Normal S1, S2 with no gallops. No murmurs ABDOMEN: Soft. Bowel sounds normal. No organomegaly. No abdominal bruits. Extremities: reveal no edema. No clubbing or cyanosis Neurologically awake, alert, oriented x3 with well-coordinated movements. No focal deficits noted Skin: No rash or skin lesions. Psychiatric: Coperative. Nonsuicidal Musculoskeletal: No joint swelling or deformity. Normal range of motion. Vital Signs Temp 98.7 F 11/19/18 07:00 Pulse 95 11/19/18 07:00 Resp 20 11/19/18 07:00 BP 143/91 11/19/18 07:00 Pulse Ox 100 11/19/18 07:00 Intake & Output 11/18/18 11/19/18 11/19/18 18:59 06:59 18:59 Intake Total 200 Output Total 0 Balance 0 200 Weight 58.967 kg Intake: Oral 200 Output: Urine 0 Other: # Voids 0 Plan - Discharge Summary Discharge Rx Participant: No New Discharge Prescriptions: New RX: Darbepoetin Aamir [Aranesp] 40 mcg SQ Q7D syringe Cefuroxime Axetil [Ceftin] 500 mg PO BID 3 Days #6 tab Continue RX: Albuterol Sulfate [Proair Hfa] 2 puff INHALATION RT-Q6H PRN PRN Reason: Shortness Of Breath RX: Calcium Acetate [PhosLo] 1,334 mg PO ACHS PRN PRN Reason: MEALS [employer] SNACK RX: Cinacalcet [Sensipar] 30 mg PO MOWEFR RX: ALPRAZolam [Xanax] 0.25 mg PO HS PRN PRN Reason: Insomnia RX: predniSONE 10 mg PO DAILY RX: Pantoprazole [Protonix] 40 mg PO DAILY RX: NIFEdipine [NIFEdipine ER] 90 mg PO DAILY RX: Carvedilol [Coreg] 25 mg PO BID RX: Budesonide/Formoterol Fumarate [Symbicort 80-4.5 Mcg Inhaler] 2 puff INHALATION RT-Q12H RX: Ondansetron Odt [Zofran ODT] 4 mg PO Q8HR PRN #10 tab PRN Reason: Nausea RX: traZODone HCL 50 mg PO HS PRN PRN Reason: Insomnia RX: Acetaminophen Tab [Tylenol] 650 mg PO Q6HR PRN tab PRN Reason: Mild Pain Or Fever > 100.5 RX: hydrALAZINE HCL [Apresoline] 100 mg PO TID RX: Lidocaine-Prilocaine Cream [Emla Cream 2.5%/2.5%] 1 applic TOPICAL DAILY PRN PRN Reason: DIALYSIS RX: Polyethylene Glycol 3350 [Miralax] 17 gm PO DAILY PRN PRN Reason: Constipation RX: Sodium Polystyrene Sulfonate [Kayexalate] 15 gm PO HS Discontinued RX: Sodium Bicarbonate Tab 650 mg PO BID Discharge Medication List RX: Albuterol Sulfate [Proair Hfa] 2 puff INHALATION RT-Q6H PRN 01/22/16 [History] RX: Calcium Acetate [PhosLo] 1,334 mg PO ACHS PRN 05/01/18 [History] RX: ALPRAZolam [Xanax] 0.25 mg PO HS PRN 05/28/18 [History] RX: Budesonide/Formoterol Fumarate [Symbicort 80-4.5 Mcg Inhaler] 2 puff INHALATION RT-Q12H 05/28/18 [History] RX: Carvedilol [Coreg] 25 mg PO BID 05/28/18 [History] RX: Cinacalcet [Sensipar] 30 mg PO MOWEFR 05/28/18 [History] RX: NIFEdipine [NIFEdipine ER] 90 mg PO DAILY 05/28/18 [History] RX: Pantoprazole [Protonix] 40 mg PO DAILY 05/28/18 [History] RX: predniSONE 10 mg PO DAILY 05/28/18 [History] RX: Ondansetron Odt [Zofran ODT] 4 mg PO Q8HR PRN #10 tab 07/02/18 [Rx] RX: traZODone HCL 50 mg PO HS PRN 07/29/18 [History] RX: Acetaminophen Tab [Tylenol] 650 mg PO Q6HR PRN tab 08/29/18 [Rx] RX: Lidocaine-Prilocaine Cream [Emla Cream 2.5%/2.5%] 1 applic TOPICAL DAILY PRN 11/16/18 [History] RX: Polyethylene Glycol 3350 [Miralax] 17 gm PO DAILY PRN 11/16/18 [History] RX: Sodium Polystyrene Sulfonate [Kayexalate] 15 gm PO HS 11/16/18 [History] RX: hydrALAZINE HCL [Apresoline] 100 mg PO TID 11/16/18 [History] Cefuroxime Axetil [Ceftin] 500 mg PO BID 3 Days #6 tab 11/19/18 [Rx] RX: Darbepoetin Aamir [Aranesp] 40 mcg SQ Q7D syringe 11/19/18 [Rx] Follow up Appointment(s)/Referral(s): Mary Baez MD [Primary Care Provider] - 1-2 days Patient Instructions/Handouts: Pneumonia (DC) Discharge Disposition: HOME SELF-CARE
== END 2018-11-19 16:32 | disposition home or self-care (01) | DRG 871 ==
LOC: EC 07:00 → 3NMEDONC 08:40 → 4SSUR 11:43
PROVIDERS: ADMIT Internal Medicine; ATTEND Internal Medicine
PROC: 5A1D70Z Performance of Urinary Filtration, Intermittent, Less than 6 Hours Per Day (ICD-10-PCS; principal; 2018-11-18)
DX: A41.9 Sepsis, unspecified organism (principal); J18.9 Pneumonia, unspecified organism; N18.6 End stage renal disease; I13.2 Hypertensive heart and chronic kidney disease with heart failure and with stage 5 chronic kidney disease, or end stage renal disease; T86.12 Kidney transplant failure; I50.22 Chronic systolic (congestive) heart failure; Q61.3 Polycystic kidney, unspecified; Q60.3 Renal hypoplasia, unilateral; I27.20 Pulmonary hypertension, unspecified; I08.1 Rheumatic disorders of both mitral and tricuspid valves; E83.9 Disorder of mineral metabolism, unspecified; N92.1 Excessive and frequent menstruation with irregular cycle; D63.1 Anemia in chronic kidney disease; N83.209 Unspecified ovarian cyst, unspecified side; J45.909 Unspecified asthma, uncomplicated; E55.9 Vitamin D deficiency, unspecified; F32.9 Major depressive disorder, single episode, unspecified; F41.9 Anxiety disorder, unspecified; G89.29 Other chronic pain; M54.5 Low back pain; Z79.51 Long term (current) use of inhaled steroids; Z99.2 Dependence on renal dialysis; Z79.52 Long term (current) use of systemic steroids; Z79.899 Other long term (current) drug therapy; Z87.891 Personal history of nicotine dependence; Z91.19 Patient's noncompliance with other medical treatment and regimen; Z88.8 Allergy status to other drugs, medicaments and biological substances; Y83.0 Surgical operation with transplant of whole organ as the cause of abnormal reaction of the patient, or of later complication, without mention of misadventure at the time of the procedure
CPT/HCPCS: 36415; 71046; 80048; 80053; 82728; 83540; 83550; 83605; 83880; 84100; 84703; 85025; 85610; 85730; 87040; 87502; 90935; 96365; 96366; 96367; 96375; 99285

== ENCOUNTER 2018-12-05 14:31 | Inpatient (IN) | payer BC, OTHER ==
[2018-12-05] MEDS ORDERED: FUROSEMIDE 10 MG/ML 4 ML VIAL IV STA (16:02)
[2018-12-05] MEDS ORDERED: SODIUM CHLORIDE 0.9% 1,000 ML IV STA (16:02)
[2018-12-05] MEDS ORDERED: ALBUTEROL NEBULIZED 2.5 MG/3 ML INHALATION STA (16:05)
[2018-12-05 16:46] LABS: Anisocytosis Moderate; Basophils # (A) 0.1 k/uL (0-0.2); Basophils % (A) 1 %; Eosinophils # (A) 0.3 k/uL (0-0.7); Eosinophils % (A) 5 %; HCT 30.9 % (34.0-46.0); Hypochromasia Slight; Lymphocytes % (A) 15 %; MCH 28.7 pg (25.0-35.0); MCHC 31.5 g/dL (31.0-37.0); MCV 91.2 fL (80.0-100.0); Macrocytosis Slight; Mean Platelet Volume 8.3; Monocytes # (A) 0.1 k/uL (0-1.0); Monocytes % (A) 2 %; Neutrophils % (A) 75 %; Platelet Count 220 k/uL (150-450); RBC 3.39 m/uL (3.80-5.40); RDW 20.1 % (11.5-15.5); WBC 6.7 k/uL (3.8-10.6)
[2018-12-05 16:54] LABS: Albumin 4.2 g/dL (3.5-5.0); Calcium 8.5 mg/dL (8.4-10.2); Magnesium 2.5 mg/dL (1.6-2.3); Total Bilirubin 0.9 mg/dL (0.2-1.3); Total Protein 7.4 g/dL (6.3-8.2)
[2018-12-05 16:57] LABS: HGB 9.7 gm/dL (11.4-16.0)
[2018-12-05 17:00] LABS: Partial Thromboplastin Time 25.6 sec (22.0-30.0); Prothrombin Time 11.1 sec (9.0-12.0)
--- NOTE | 2018-12-05 17:01 | ED ---
General Adult HPI <Aguila Iraheta J - Last Filed: 12/05/18 18:07> - General Source: patient, RN notes reviewed, old records reviewed Mode of arrival: ambulatory Limitations: no limitations <Becky Marroquin - Last Filed: 12/05/18 18:17> - General Chief complaint: Shortness of Breath Stated complaint: SOB, back pain Time Seen by Provider: 12/05/18 15:43 - History of Present Illness Initial comments: Residual female with history of renal disease, renal transplant, dialysis presents today with worsening shortness of breath and cough. Patient states she cannot go to dialysis today because she was having worsening cough and complaining of back pain. Patient states that she was recently admitted for pneumonia. However they did not send her on any antibiotics to be discharged home. She states her cough is been frothy, no green or yellow sputum. Denies fevers. (Becky Marroquin) - Related Data Home Medications Medication Instructions Recorded Confirmed Albuterol Sulfate [Proair Hfa] 2 puff INHALATION RT-Q6H PRN 01/22/16 12/05/18 Calcium Acetate [PhosLo] 1,334 mg PO ACHS PRN 05/01/18 12/05/18 ALPRAZolam [Xanax] 0.25 mg PO HS PRN 05/28/18 12/05/18 Budesonide/Formoterol Fumarate 2 puff INHALATION RT-Q12H 05/28/18 12/05/18 [Symbicort 80-4.5 Mcg Inhaler] Carvedilol [Coreg] 25 mg PO BID 05/28/18 12/05/18 Cinacalcet [Sensipar] 30 mg PO MOWEFR 05/28/18 12/05/18 NIFEdipine [NIFEdipine ER] 90 mg PO DAILY 05/28/18 12/05/18 Pantoprazole [Protonix] 40 mg PO DAILY 05/28/18 12/05/18 predniSONE 10 mg PO DAILY 05/28/18 12/05/18 traZODone HCL 50 mg PO HS PRN 07/29/18 12/05/18 Lidocaine-Prilocaine Cream [Emla 1 applic TOPICAL DAILY PRN 11/16/18 12/05/18 Cream 2.5%/2.5%] Polyethylene Glycol 3350 [Miralax] 17 gm PO DAILY PRN 11/16/18 12/05/18 Sodium Polystyrene Sulfonate 15 gm PO HS 11/16/18 12/05/18 [Kayexalate] hydrALAZINE HCL [Apresoline] 100 mg PO TID 11/16/18 12/05/18 Sodium Bicarbonate Tab 650 mg PO BID 12/05/18 12/05/18 Previous Rx's Medication Instructions Recorded Ondansetron Odt [Zofran ODT] 4 mg PO Q8HR PRN #10 tab 07/02/18 Acetaminophen Tab [Tylenol] 650 mg PO Q6HR PRN tab 08/29/18 Allergies Allergy/AdvReac Type Severity Reaction Status Date / Time hydralazine AdvReac Rapid Verified 12/05/18 15:56 Heart Rate Review of Systems ROS Other: All systems not noted in ROS Statement are negative. <Aguila Iraheta - Last Filed: 12/05/18 18:07> ROS Other: All systems not noted in ROS Statement are negative. <Becky Marroquin - Last Filed: 12/05/18 18:17> ROS Statement: Those systems with pertinent positive or pertinent negative responses have been documented in the HPI. Past Medical History Past Medical History: Asthma, Heart Failure, Hypertension, Renal Disease Additional Past Medical History / Comment(s): ESRD d/t being born with polycystic kidney disease, failed kidney transplant, hemodialysis, cardiomegally with EF 20-25%, chronic anemia, vitamin D deficiency, chronic low back pain, ovarian cysts, irregular menses. History of Any Multi-Drug Resistant Organisms: None Reported Past Surgical History: Heart Catheterization, Hernia Repair Additional Past Surgical History / Comment(s): 06/14/18 cardiac cath at [facility] to check coronary pressures, 11/15/09 Failed kidney transplant R pelvis, dialysis catheter in and out, current L upper arm AVG, supra pubic hernia repair, transvaginal mesh, wisdom teeth extraction with anesthesia. Past Anesthesia/Blood Transfusion Reactions: No Reported Reaction Additional Past Anesthesia/Blood Transfusion Reaction / Comment(s): Pt has received blood in past without reaction. Past Psychological History: Anxiety, Depression Smoking Status: Former smoker Past Alcohol Use History: None Reported Past Drug Use History: None Reported - Past Family History Father Family Medical History: No Reported History Additional Family Medical History / Comment(s): Father is healthy and is 59 yrs old. Mother Family Medical History: No Reported History Additional Family Medical History / Comment(s): Mother is healthy and is 57 yrs old. <Becky Marroquin - Last Filed: 12/05/18 18:17> General Exam Limitations: no limitations General appearance: alert, in no apparent distress Head exam: Present: atraumatic, normocephalic, normal inspection Eye exam: Present: normal appearance, PERRL, EOMI. Absent: scleral icterus, conjunctival injection, periorbital swelling ENT exam: Present: normal exam, mucous membranes moist Neck exam: Present: normal inspection. Absent: tenderness, meningismus, lymphadenopathy Respiratory exam: Present: normal lung sounds bilaterally Cardiovascular Exam: Present: regular rate, normal rhythm, normal heart sounds. Absent: systolic murmur, diastolic murmur, rubs, gallop, clicks GI/Abdominal exam: Present: soft, normal bowel sounds. Absent: distended, tenderness, guarding, rebound, rigid Extremities exam: Present: normal inspection, full ROM, normal capillary refill. Absent: tenderness, pedal edema, joint swelling, calf tenderness Back exam: Present: normal inspection Neurological exam: Present: alert, oriented X3, CN II-XII intact Psychiatric exam: Present: normal affect, normal mood Skin exam: Present: warm, dry, intact, normal color. Absent: rash <Becky Marroquin - Last Filed: 12/05/18 18:17> - General Exam Comments Initial Comments: 28-year-old female. Tripod position, labored breathing. (Becky Marroquin) Course Vital Signs 12/05/18 12/05/18 12/05/18 14:58 16:13 16:20 Temperature 98.4 F Pulse Rate 104 H 103 H 106 H Respiratory 18 Rate Blood Pressure 189/124 O2 Sat by Pulse 96 Oximetry 12/05/18 18:07 Temperature Pulse Rate 101 H Respiratory 18 Rate Blood Pressure 186/139 O2 Sat by Pulse 99 Oximetry EKG Findings - EKG Comments: EKG Findings:: EKG shows sinus tachycardia, voltage criteria for LVH, abnormal EKG. Ventricular rate of 105 beats were minute. Intervals 182 ms. QS duration 92 ms. QT QTc is 370/49 ms <Becky Marroquin - Last Filed: 12/05/18 18:17> Medical Decision Making - Lab Data Result diagrams: 12/05/18 16:30 12/05/18 16:30 <Aguila Iraheta - Last Filed: 12/05/18 18:07> - Lab Data Result diagrams: 12/05/18 16:30 12/05/18 16:30 - Radiology Data Radiology results: report reviewed <LopezBecky - Last Filed: 12/05/18 18:17> - Medical Decision Making The patient was seen and examined. All diagnostics were reviewed. I have discussed the case with the PA and agree with the findings as documented. It appears the patient does have significant fluid overload and will require admission and dialysis. The case is discussed with Dr. Pradhan and he is agreeable with admission. (Aguila Iraheta) Patient is a 28-year-old female who presents emergency Department today for violation for difficulty in breathing and worsening cough complaining of back pain. Patient has not had her dialysis today. Patient's labwork was reviewed. Patient's hemoglobin has increased at this time is 9.7 from previous. White blood cell count stable. Patient's potassium 6.2, creatinine of 12. She does have an elevated troponin. We'll give the Patient aspirin at this time with elevated troponin complaint of back pain. EKG did show peaked T waves, no ST changes. Patient at this time will be admitted with consult to nephrology. Stat dialysis. (Becky Marroquin) - Lab Data Lab Results 12/05/18 12/05/18 12/05/18 Range/Units 16:30 16:30 16:30 WBC (3.8-10.6) k/uL RBC (3.80-5.40) m/uL Hgb (11.4-16.0) gm/dL Hct (34.0-46.0) % MCV (80.0-100.0) fL MCH (25.0-35.0) pg MCHC (31.0-37.0) g/dL RDW (11.5-15.5) % Plt Count (150-450) k/uL Neutrophils % % Lymphocytes % % Monocytes % % Eosinophils % % Basophils % % Neutrophils # (1.3-7.7) k/uL Lymphocytes # (1.0-4.8) k/uL Monocytes # (0-1.0) k/uL Eosinophils # (0-0.7) k/uL Basophils # (0-0.2) k/uL Hypochromasia Anisocytosis Macrocytosis PT 11.1 (9.0-12.0) sec INR 1.0 (<1.2) APTT 25.6 (22.0-30.0) sec Sodium 137 (137-145) mmol/L Potassium 6.2 H* (3.5-5.1) mmol/L Chloride 99 (98-107) mmol/L Carbon Dioxide 21 L (22-30) mmol/L Anion Gap 17 mmol/L BUN 84 H (7-17) mg/dL Creatinine 12.87 H* (0.52-1.04) mg/dL Est GFR (CKD-EPI)AfAm 4 (>60 ml/min/1.73 sqM) Est GFR (CKD-EPI)NonAf 4 (>60 ml/min/1.73 sqM) Glucose 81 (74-99) mg/dL Plasma Lactic Acid Johan (0.7-2.0) mmol/L Calcium 8.5 (8.4-10.2) mg/dL Magnesium 2.5 H (1.6-2.3) mg/dL Total Bilirubin 0.9 (0.2-1.3) mg/dL AST 31 (14-36) U/L ALT 24 (9-52) U/L Alkaline Phosphatase 70 (38-126) U/L Troponin I 0.101 H* (0.000-0.034) ng/mL NT-Pro-B Natriuret Pep pg/mL Total Protein 7.4 (6.3-8.2) g/dL Albumin 4.2 (3.5-5.0) g/dL 12/05/18 12/05/18 12/05/18 Range/Units 16:30 16:30 16:30 WBC 6.7 (3.8-10.6) k/uL RBC 3.39 L (3.80-5.40) m/uL Hgb 9.7 L D (11.4-16.0) gm/dL Hct 30.9 L (34.0-46.0) % MCV 91.2 (80.0-100.0) fL MCH 28.7 (25.0-35.0) pg MCHC 31.5 (31.0-37.0) g/dL RDW 20.1 H (11.5-15.5) % Plt Count 220 (150-450) k/uL Neutrophils % 75 % Lymphocytes % 15 % Monocytes % 2 % Eosinophils % 5 % Basophils % 1 % Neutrophils # 5.0 (1.3-7.7) k/uL Lymphocytes # 1.0 (1.0-4.8) k/uL Monocytes # 0.1 (0-1.0) k/uL Eosinophils # 0.3 (0-0.7) k/uL Basophils # 0.1 (0-0.2) k/uL Hypochromasia Slight Anisocytosis Moderate Macrocytosis Slight PT (9.0-12.0) sec INR (<1.2) APTT (22.0-30.0) sec Sodium (137-145) mmol/L Potassium (3.5-5.1) mmol/L Chloride (98-107) mmol/L Carbon Dioxide (22-30) mmol/L Anion Gap mmol/L BUN (7-17) mg/dL Creatinine (0.52-1.04) mg/dL Est GFR (CKD-EPI)AfAm (>60 ml/min/1.73 sqM) Est GFR (CKD-EPI)NonAf (>60 ml/min/1.73 sqM) Glucose (74-99) mg/dL Plasma Lactic Acid Johan 1.0 (0.7-2.0) mmol/L Calcium (8.4-10.2) mg/dL Magnesium (1.6-2.3) mg/dL Total Bilirubin (0.2-1.3) mg/dL AST (14-36) U/L ALT (9-52) U/L Alkaline Phosphatase (38-126) U/L Troponin I (0.000-0.034) ng/mL NT-Pro-B Natriuret Pep [id number] pg/mL Total Protein (6.3-8.2) g/dL Albumin (3.5-5.0) g/dL - Radiology Data Pulmonary edema is increased compared old exam and consistent with increased congestive heart failure. Moderate cardiomegaly. (Becky Marroquin) Disposition <Aguila Iarheta - Last Filed: 12/05/18 18:07> Is patient prescribed a controlled substance at d/c from ED?: No Time of Disposition: 18:17 <Becky Marroquin - Last Filed: 12/05/18 18:17> Clinical Impression: Heart failure, History of kidney transplant, Hyperkalemia, ESRD (end stage renal disease) on dialysis, Hypertensive emergency Disposition: ADMITTED IP TO THIS HOSP Condition: Stable Referrals: Mary Baez MD [Primary Care Provider] - 1-2 days
[2018-12-05 17:08] LABS: Potassium 6.2 mmol/L (3.5-5.1)
[2018-12-05] MEDS ORDERED: DEXTROSE 50% SYRINGE 50 ML IVP ONE (17:08)
[2018-12-05] MEDS ORDERED: INSULIN REGULAR 100 UNIT/ML VIAL IV ONE (17:08)
[2018-12-05] MEDS ORDERED: CALCIUM GLUCONATE 1 GM in SODIUM CHLORIDE 0.9% 100 ML IVPB ONE (17:08)
[2018-12-05] MEDS ORDERED: MORPHINE SULFATE 4 MG/ML SYRINGE IVP STA (17:44)
--- NOTE | 2018-12-05 17:48 | XR ---
EXAMINATION TYPE: XR chest 2V DATE OF EXAM: 12/05/2018 COMPARISON: 11/19/2018 HISTORY: Short of breath TECHNIQUE: Frontal and lateral views of the chest are obtained. FINDINGS: There is pulmonary interstitial and alveolar edema. Heart is enlarged. There are chest brando ds. IMPRESSION: Pulmonary edema increased compared to old exam and consistent with increased congestive heart failure. Moderate cardiomegaly.
[2018-12-05] MEDS ORDERED: ASPIRIN 325 MG TAB PO STA (18:13)
[2018-12-05] MEDS ORDERED: NITROGLYCERIN OINT 1 INCH/GM PACKET TOPICAL STA (18:13)
[2018-12-05] MEDS ORDERED: LABETALOL SYRINGE 5 MG/ML IVP STA (18:17)
[2018-12-05 18:18] LABS: Glucose,Whole Blood 82 mg/dL (75-99)
[2018-12-05 19:45] LABS: Glucose,Whole Blood 48 mg/dL (75-99)
[2018-12-05] MEDS ORDERED: ACETAMINOPHEN TAB 325 MG TAB PO PRN (20:45)
[2018-12-05] MEDS ORDERED: CALCIUM ACETATE 667 MG CAP PO PRN (20:45)
[2018-12-05] MEDS ORDERED: ONDANSETRON ODT 4 MG TAB PO PRN (20:45)
[2018-12-05] MEDS ORDERED: ALBUTEROL NEBULIZED 2.5 MG/3 ML INHALATION PRN (20:45)
[2018-12-05] MEDS ORDERED: POLYETHYLENE GLYCOL 3350 17 GM POWD.PACK PO PRN (20:45)
[2018-12-05] MEDS ORDERED: traZODone HCL 50 MG TAB PO PRN (20:45)
[2018-12-05] MEDS ORDERED: ALPRAZolam 0.25 MG TAB PO PRN ×2 (20:45→22:30)
[2018-12-05] MEDS ORDERED: LIDOCAINE-PRILOCAINE 2.5-2.5% CREAM 5 GM TUBE TOPICAL PRN (20:45)
[2018-12-05 20:48] LABS: Glucose,Whole Blood 57 mg/dL (75-99)
[2018-12-05 20:48] LABS: Glucose,Whole Blood 54 mg/dL (75-99)
[2018-12-05 20:48] LABS: Glucose,Whole Blood 67 mg/dL (75-99)
[2018-12-05] MEDS ORDERED: SODIUM POLYSTYRENE SULFONATE 15 GM/60 ML BOTTLE PO SCH (21:00)
[2018-12-05 21:03] LABS: Glucose,Whole Blood 66 mg/dL (75-99)
[2018-12-05 21:03] LABS: Glucose,Whole Blood 78 mg/dL (75-99)
[2018-12-05] MEDS: NIFEdipine XL 90 MG TAB.ER.24 PO SCH (21:55)
[2018-12-05] MEDS: hydrALAZINE HCL 50 MG TAB PO SCH (21:55)
[2018-12-05] MEDS ORDERED: HYDROcodone/APAP 5-325MG 1 EACH TAB PO PRN (22:30)
[2018-12-05] MEDS ORDERED: cloNIDine HCL 0.1 MG TAB PO PRN (22:30)
[2018-12-05] MEDS ORDERED: DEXTROSE 50% SYRINGE 50 ML IVP STA (22:39)
[2018-12-05] MEDS ORDERED: ONDANSETRON 4 MG/2 ML VIAL IVP PRN (22:39)
[2018-12-05] MEDS: NITROGLYCERIN OINT 1 INCH/GM PACKET TOPICAL SCH (23:00)
[2018-12-05 23:29] LABS: Glucose,Whole Blood 112 mg/dL (75-99)
[2018-12-06] MEDS: predniSONE 10 MG TAB PO SCH ×2 (02:41→08:04)
[2018-12-06] MEDS: SODIUM BICARBONATE TAB 650 MG TAB PO SCH ×2 (02:41→08:04)
[2018-12-06] MEDS ORDERED: diphenhydrAMINE 25 MG CAP PO STA (03:13)
[2018-12-06 05:13] VITALS: RESP 18
[2018-12-06 06:06] LABS: Glucose,Whole Blood 96 mg/dL (75-99)
[2018-12-06 06:13] LABS: Anisocytosis Slight; Basophils # (A) 0.1 k/uL (0-0.2); Basophils % (A) 1 %; Eosinophils # (A) 0.4 k/uL (0-0.7); Eosinophils % (A) 5 %; HCT 28.8 % (34.0-46.0); HGB 9.1 gm/dL (11.4-16.0); Hypochromasia Moderate; Lymphocytes # (A) 0.9 k/uL (1.0-4.8); Lymphocytes % (A) 13 %; MCHC 31.5 g/dL (31.0-37.0); Mean Platelet Volume 7.9; Monocytes # (A) 0.2 k/uL (0-1.0); Monocytes % (A) 3 %; Neutrophils # (A) 5.1 k/uL (1.3-7.7); Neutrophils % (A) 76 %; Platelet Count 202 k/uL (150-450); RBC 3.14 m/uL (3.80-5.40); RDW 19.5 % (11.5-15.5); WBC 6.7 k/uL (3.8-10.6)
[2018-12-06 06:33] LABS: Calcium 8.2 mg/dL (8.4-10.2); Potassium 4.7 mmol/L (3.5-5.1)
--- NOTE | 2018-12-06 07:12 | HP ---
HISTORY AND PHYSICAL DATE OF SERVICE: 12/05/2018 CHIEF COMPLAINT: Shortness of breath. HISTORY OF PRESENT ILLNESS: This 28-year-old woman with a past medical history of multiple medical problems including asthma, history of CHF, hypertension, history of end-stage renal disease on hemodialysis, history of anxiety and depression being followed by Dr. Baez in the outpatient setting recently admitted with pneumonia. Currently, the patient apparently had abdominal discomfort. Patient missed hemodialysis. Patient has some shortness of breath and patient came to [facility] and was found to have fluid overload. The patient also complains of nausea. She also complains of back pain. Nephrology has been consulted. Patient being closely monitored at this time. There is no history of any fever, rigors or chills. No history of headache, loss of conscious or seizures at this time. The white count is normal 6.2, hemoglobin is 9.7, potassium 6.2. In the ER, the patient was given insulin glucose cocktail and subsequently patient had several episodes of hypoglycemia. Patient also given 50% dextrose at this time. There is no history of fever, rigors or chills. Troponins are elevated up to 0.101 and NT proBNP is also 100,000. PAST MEDICAL HISTORY: History of asthma, history of CHF, hypertension, history of DJD, history of end- stage renal disease, history of anxiety, depression. MEDICATIONS: Home medications prior to admission include: 1. Trazodone 50 mg q.h.s. p.r.n. 2. Prednisone 10 mg p.o. daily. 3. Apresoline 100 mg p.o. t.i.d. 4. Kayexalate 15 q.h.s. 5. Sodium bicarb 650 mg p.o. b.i.d. 6. MiraLAX 17 grams daily p.r.n. 7. Protonix 40 mg p.o. daily. 8. Zofran 4 mg q.8 p.r.n. 9. Nifedipine 90 mg p.o. daily. 10.EMLA cream. 11.Sensipar 30 mg p.o. Wednesday, Wednesday, Wednesday. 12.Coreg 25 mg p.o. b.i.d. 13.PhosLo 1334 mg p.o. a.c. and bedtime p.r.n. 14.Symbicort 80/4.5 two puffs b.i.d. 15.ProAir HFA 2 puffs q.6 p.r.n. 16.Tylenol 650 q.6 p.r.n. 17.Xanax 0.25 q.h.s. p.r.n. ALLERGIES: HYDRALAZINE. FAMILY HISTORY: No history of heart disease or strokes in the family. SOCIAL HISTORY: Previous history of smoking. No history of current smoking or alcohol intake. REVIEW OF SYSTEMS: ENT: No diminished hearing or diminished vision. CARDIOVASCULAR SYSTEM: As mentioned earlier. RESPIRATORY SYSTEM: As mentioned earlier. GI: As mentioned earlier. : As mentioned earlier. NERVOUS SYSTEM: No numbness or weakness. ALLERGY/IMMUNOLOGY: Asthma. MUSCULOSKELETAL: As mentioned earlier. HEMATOLOGY/ONCOLOGY: No history of anemia. ENDOCRINE: No history of diabetes or hypothyroidism. CONSTITUTIONAL: As mentioned earlier. DERMATOLOGY: Negative. RHEUMATOLOGY: Negative. PSYCHIATRY: As mentioned earlier. PHYSICAL EXAMINATION: The patient is alert and oriented x3. Pulse is 101. Blood pressure 186/139, respiration 18, temperature is normal, pulse ox 99% on 2 L. HEENT: Conjunctivae normal. Oral mucosa moist. NECK: Jugular venous distention present. No carotid bruit. No lymph node enlargement. CARDIOVASCULAR: S1, S2 muffled. No S3, no S4. Ejection systolic . RESPIRATORY: Breath sounds diminished at the bases. Scattered rhonchi and crackles. ABDOMEN: Soft, obese, nontender. No mass palpable. Mild diffuse discomfort. LEGS: Minimal bilateral leg edema. NERVOUS SYSTEM: Higher functions as mentioned. Moves all 4 limbs. No focal motor deficits. LYMPHATICS: No lymphadenopathy of the neck, axillae or groin. SKIN: No ulcer, rash or bleeding. JOINTS: No active deforming arthropathy. LABS: WBC 6.7, hemoglobin 9.7, sodium 137, potassium 6.2. ASSESSMENT: 1. Congestive heart failure acute exacerbation with acute on chronic diastolic dysfunction. Acute on chronic systolic dysfunction, ejection fraction 20% to 25%. 2. End-stage renal disease on hemodialysis with missed hemodialysis. 3. Abdominal discomfort, possible acute gastritis. 4. Anemia. 5. Troponin 0.101 indeterminate. 6. History of asthma. 7. History of hypertension. 8. History of polycystic kidney disease, failed kidney transplant. 9. History of ejection fraction 20% to 25%. 10.History of anxiety, depression. 11.Hyperkalemia. 12.Hypoglycemia. 13.FULL CODE. RECOMMENDATIONS AND DISCUSSION: This 28-year-old woman who presented with multiple complex medial issues. Will monitor the patient closely. Continue the current medications, continue symptomatic treatment. I recommend nephrology consultation and urgent hemodialysis. Otherwise, resume the home medications. The patient has got hypoglycemia also. I would recommend a bolus of IV dextrose and continue to check the blood sugars closely. Repeat labs. Kayexalate has been given. Prognosis guarded because of multiple complex medical issues. Further recommendations to follow. A copy of dictation forwarded to Dr. Baez who is the primary physician. MMODL / IJN: [id number] / MTDD
[2018-12-06] MEDS ORDERED: CARVEDILOL 12.5 MG TAB PO SCH (07:30)
[2018-12-06] MEDS ORDERED: SYMBICORT 80-4.5 MCG INHALER INHALATION SCH (08:00)
[2018-12-06] MEDS: NITROGLYCERIN OINT 1 INCH/GM PACKET TOPICAL SCH ×2 (08:04→14:17)
[2018-12-06] MEDS: NIFEdipine XL 90 MG TAB.ER.24 PO SCH (08:04)
[2018-12-06] MEDS: hydrALAZINE HCL 50 MG TAB PO SCH ×2 (08:04→16:04)
[2018-12-06] MEDS ORDERED: PANTOPRAZOLE 40 MG TABLET PO SCH (09:00)
--- NOTE | 2018-12-06 09:29 | P.CRDCN ---
History of Present Illness Consult date: 12/06/18 Requesting physician: Agnieszka Travis Consult reason: shortness of breath Chief complaint: Shortness of breath History of present illness: This is a 28-year-old -Algerian female with past medical history significant for end-stage renal disease, status post failed transplant, on hemodialysis, hypertension, severe pulmonary hypertension and nonischemic cardiomyopathy. According to the patient, she had missed her dialysis treatment because of some discomfort, she became very short of breath, and came to the emergency room for further evaluation and treatment. Blood pressure 116/60 with a heart rate in the 80s, 99% on 2 L of oxygen. Chest x-ray on admission showed pulmonary edema, increased as compared with prior exam. EKG on admission showed sinus tachycardia. Evidence of LVH strain pattern. White blood cell count 6.7, hemoglobin 9.7 on admission, 9.1 this morning. Platelet count 202. Sodium 137, potassium 4.7, BUN 55 and creatinine 9.1. Troponin 0.101. BNP level 100,000. At the time of my examination this morning, patient states she feels tired, still short of breath. Patient has not physically made urine for the past 2 years, she will be scheduled to undergo dialysis. Most recent echocardiogram with Doppler study was performed in May 2018 which revealed an ejection fraction of 20-25%, mild to moderate MR severe TR and severe pulmonary hypertension and moderate aortic regurgitation Past Medical History Past Medical History: Asthma, Heart Failure, Hypertension, Renal Disease Additional Past Medical History / Comment(s): ESRD d/t being born with polycystic kidney disease, failed kidney transplant, hemodialysis, cardiomegally with EF 20-25%, chronic anemia, vitamin D deficiency, chronic low back pain, ovarian cysts, irregular menses. History of Any Multi-Drug Resistant Organisms: None Reported Past Surgical History: Heart Catheterization, Hernia Repair Additional Past Surgical History / Comment(s): 06/14/18 cardiac cath at [facility] to check coronary pressures, 11/15/09 Failed kidney transplant R pelvis, dialysis catheter in and out, current L upper arm AVG, supra pubic hernia repair, transvaginal mesh, wisdom teeth extraction with anesthesia. Past Anesthesia/Blood Transfusion Reactions: No Reported Reaction Additional Past Anesthesia/Blood Transfusion Reaction / Comment(s): Pt has received blood in past without reaction. Past Psychological History: Anxiety, Depression Additional Psychological History / Comment(s): Pt resides with family. She is independent. She drives. She is disabled. She states she has anxiety and depression but no suicidal thoughts/ idealations or plans. She had one suicide attempt with overdose in 2012. Smoking Status: Former smoker Past Alcohol Use History: None Reported Additional Past Alcohol Use History / Comment(s): Pt states she quit smoking in 2015. Past Drug Use History: None Reported - Past Family History Father Family Medical History: No Reported History Additional Family Medical History / Comment(s): Father is healthy and is 59 yrs old. Mother Family Medical History: No Reported History Additional Family Medical History / Comment(s): Mother is healthy and is 57 yrs old. Medications and Allergies Home Medications Medication Instructions Recorded Confirmed Type Albuterol Sulfate [Proair Hfa] 2 puff INHALATION RT-Q6H PRN 01/22/16 12/05/18 History Calcium Acetate [PhosLo] 1,334 mg PO ACHS PRN 05/01/18 12/05/18 History ALPRAZolam [Xanax] 0.25 mg PO HS PRN 05/28/18 12/05/18 History Budesonide/Formoterol Fumarate 2 puff INHALATION RT-Q12H 05/28/18 12/05/18 Hi story [Symbicort 80-4.5 Mcg Inhaler] Carvedilol [Coreg] 25 mg PO BID 05/28/18 12/05/18 History Cinacalcet [Sensipar] 30 mg PO MOWEFR 05/28/18 12/05/18 History NIFEdipine [NIFEdipine ER] 90 mg PO DAILY 05/28/18 12/05/18 History Pantoprazole [Protonix] 40 mg PO DAILY 05/28/18 12/05/18 History predniSONE 10 mg PO DAILY 05/28/18 12/05/18 History Ondansetron Odt [Zofran ODT] 4 mg PO Q8HR PRN #10 tab 07/02/18 12/05/18 Rx traZODone HCL 50 mg PO HS PRN 07/29/18 12/05/18 History Acetaminophen Tab [Tylenol] 650 mg PO Q6HR PRN tab 08/29/18 12/05/18 Rx Lidocaine-Prilocaine Cream [Emla 1 applic TOPICAL DAILY PRN 11/16/18 12/05/18 History Cream 2.5%/2.5%] Polyethylene Glycol 3350 [Miralax] 17 gm PO DAILY PRN 11/16/18 12/05/18 History Sodium Polystyrene Sulfonate 15 gm PO HS 11/16/18 12/05/18 History [Kayexalate] hydrALAZINE HCL [Apresoline] 100 mg PO TID 11/16/18 12/05/18 History Sodium Bicarbonate Tab 650 mg PO BID 12/05/18 12/05/18 History Allergies Allergy/AdvReac Type Severity Reaction Status Date / Time hydralazine AdvReac Rapid Verified 12/05/18 15:56 Heart Rate Physical Exam Vitals: Vital Signs Temp Pulse Pulse Pulse Resp BP BP 12/06/18 08:06 98.2 F 88 16 12/06/18 07:43 100 12/06/18 07:33 98 12/06/18 04:00 97.8 F 89 18 134/70 12/06/18 00:53 97.6 F 74 16 12/06/18 00:00 97.6 F 95 18 171/122 12/05/18 23:50 97.8 F 89 18 12/05/18 23:15 92 18 161/106 12/05/18 20:50 97.8 F 80 18 168/110 12/05/18 20:35 97.5 F L 80 89 18 168/110 12/05/18 18:59 90 18 167/113 12/05/18 18:07 101 H 18 186/139 12/05/18 16:20 106 H 12/05/18 16:13 103 H 12/05/18 14:58 98.4 F 104 H 18 189/124 BP Pulse Ox 12/06/18 08:06 117/67 99 12/06/18 07:43 12/06/18 07:33 12/06/18 04:00 100 12/06/18 00:53 158/86 97 12/06/18 00:00 91 L 12/05/18 23:50 168/113 96 12/05/18 23:15 96 12/05/18 20:50 99 12/05/18 20:35 99 12/05/18 18:59 99 12/05/18 18:07 99 12/05/18 16:20 12/05/18 16:13 12/05/18 14:58 96 Intake and Output 12/05/18 12/06/18 12/06/18 22:59 06:59 14:59 Intake Total 60 Output Total 3000 Balance -3000 60 Intake: Oral 60 Output: Hemodialysis 3000 Other: # Voids 1 Weight 51.7 kg PHYSICAL EXAMINATION: GENERAL: 28-year-old -Algerian female in no acute distress at the time of my examination HEENT: Head is atraumatic, normocephalic. Pupils equal, round. Sclera anicteric. Conjunctiva are clear. Mucous membranes of the mouth are moist. Neck is supple. There is elevated jugular venous pressure. No carotid bruit is heard. HEART EXAMINATION: Heart S1 and S2 systolic ejection murmur is heard at the base and apex. Parasternal heave noted CHEST EXAMINATION: Lungs reveal diminished air entry to bilateral bases. ABDOMEN: Soft, nontender. Bowel sounds are heard. No organomegaly noted. EXTREMITIES: 2+ peripheral pulses with no evidence of peripheral edema and no calf tenderness noted. NEUROLOGIC patient is awake, alert and oriented 3 . . Results 12/06/18 05:50 12/06/18 05:50 Cardiac Enzymes 12/05/18 12/05/18 Range/Units 16:30 16:30 AST 31 (14-36) U/L Troponin I 0.101 H* (0.000-0.034) ng/mL Coagulation 12/05/18 Range/Units 16:30 PT 11.1 (9.0-12.0) sec APTT 25.6 (22.0-30.0) sec CBC 12/05/18 12/06/18 Range/Units 16:30 05:50 WBC 6.7 6.7 (3.8-10.6) k/uL RBC 3.39 L 3.14 L (3.80-5.40) m/uL Hgb 9.7 L D 9.1 L (11.4-16.0) gm/dL Hct 30.9 L 28.8 L (34.0-46.0) % Plt Count 220 202 (150-450) k/uL Comprehensive Metabolic Panel 12/05/18 12/05/18 12/06/18 Range/Units 16:30 23:50 05:50 Sodium 137 137 (137-145) mmol/L Potassium 6.2 H* 6.8 H* 4.7 (3.5-5.1) mmol/L Chloride 99 98 (98-107) mmol/L Carbon Dioxide 21 L 26 (22-30) mmol/L BUN 84 H 55 H (7-17) mg/dL Creatinine 12.87 H* 9.12 H* (0.52-1.04) mg/dL Glucose 81 84 (74-99) mg/dL Calcium 8.5 8.2 L (8.4-10.2) mg/dL AST 31 (14-36) U/L ALT 24 (9-52) U/L Alkaline Phosphatase 70 (38-126) U/L Total Protein 7.4 (6.3-8.2) g/dL Albumin 4.2 (3.5-5.0) g/dL Current Medications Generic Name Dose Route Start Last Admin Trade Name Freq PRN Reason Stop Dose Admin Acetaminophen 650 mg 12/05/18 20:45 12/05/18 21:56 Tylenol Tab PO 650 mg Q6HR PRN Administration Mild Pain or Fever > 100.5 Hydrocodone Bitart/Acetaminophen 1 each 12/05/18 22:30 12/05/18 23:17 [place] 5-325 PO 1 each Q6HR PRN Administration Pain Albuterol Sulfate 2.5 mg 12/05/18 20:45 12/06/18 07:32 Ventolin Nebulized INHALATION 2.5 mg RT-Q6H PRN Administration Shortness Of Breath Alprazolam 0.25 mg 12/05/18 20:45 12/05/18 21:55 Xanax PO 0.25 mg HS PRN Administration Insomnia Alprazolam 0.25 mg 12/05/18 22:30 Xanax PO TID PRN Anxiety Budesonide/Formoterol Fumarate 2 puff 12/06/18 08:00 12/06/18 07:32 Symbicort 80-4.5 Mcg Inhaler INHALATION 2 puff RT-Q12H SELENE Administration Calcium Acetate 1,334 mg 12/05/18 20:45 Phoslo PO ACHS PRN MEALS & SNACK Carvedilol 25 mg 12/06/18 07:30 12/06/18 07:02 Coreg PO 25 mg AC-BID SELENE Administration Cinacalcet 30 mg 12/07/18 09:00 Sensipar PO MOWEFR SELENE Clonidine 0.1 mg 12/05/18 22:30 Catapres PO Q4HR PRN Hypertension Hydralazine HCl 100 mg 12/05/18 22:00 12/06/18 08:04 Apresoline PO 100 mg TID SELENE Administration Sodium Chloride 1,000 mls @ 20 mls/hr 12/05/18 16:02 12/05/18 16:52 Saline 0.9% IV 12/06/18 16:01 Not Given .Q24H STA Lidocaine/Prilocaine 1 applic 12/05/18 20:45 Emla Cream 2.5%/2.5% TOPICAL DAILY PRN DIALYSIS Nifedipine 90 mg 12/05/18 21:00 12/06/18 08:04 Procardia Xl PO 90 mg DAILY SELENE Administration Nitroglycerin 0.5 inch 12/05/18 22:00 12/06/18 08:04 Nitro-Bid Oint TOPICAL 0.5 inch QID SELENE Administration Ondansetron HCl 4 mg 12/05/18 22:39 12/05/18 23:16 Zofran IVP 4 mg Q6HR PRN Administration Nausea And Vomiting Polyethylene Glycol 17 gm 12/05/18 20:45 Miralax PO DAILY PRN Constipation Prednisone 10 mg 12/05/18 21:00 12/06/18 08:04 PO 10 mg DAILY SELENE Administration Sodium Bicarbonate 650 mg 12/05/18 21:00 12/06/18 08:04 Sodium Bicarbonate Tab PO 650 mg BID SELENE Administration Sodium Polystyrene Sulfonate 15 gm 12/05/18 21:00 12/06/18 02:41 Kayexalate PO Not Given HS SELENE Trazodone HCl 50 mg 12/05/18 20:45 Desyrel PO HS PRN Insomnia Intake and Output 12/05/18 12/06/18 12/06/18 22:59 06:59 14:59 Intake Total 60 Output Total 3000 Balance -3000 60 Intake: Oral 60 Output: Hemodialysis 3000 Other: # Voids 1 Weight 51.7 kg 12/06/18 05:50 12/06/18 05:50 EKG Interpretations (text) EKG shows sinus tachycardia with evidence of LVH strain pattern Assessment and Plan Plan: Assessment and plan #1 systolic congestive heart failure acute on chronic, secondary to fluid overload and missed dialysis #2 end-stage renal disease on hemodialysis, failed transplant #3 history of valvular heart disease, echocardiogram with Doppler study performed in May revealed an ejection fraction of 20-25% with severe global hypokinesia. Mild to moderate mitral regurg, severe tricuspid regurg, severe pulmonary hypertension with moderate pulmonic regurg. #4 hypertension #5 asthma #6 anemia #7 nonischemic cardiomyopathy. Plan Patient is scheduled to undergo hemodialysis. We will repeat an echocardiogram with Doppler study. Continue current medications. Further recommendations to follow. DNP note has been reviewed, I agree with a documented findings and plan of care. Patient was seen and examined.
[2018-12-06 11:32] LABS: Glucose,Whole Blood 100 mg/dL (75-99)
[2018-12-06 11:39] VITALS: BMI 20.8
[2018-12-06 11:49] VITALS: BP 120/62; PULSE 87; TEMP 98.1
--- NOTE | 2018-12-06 17:51 | ECHOF ---
Referral Reason:sob MEASUREMENTS -------- HEIGHT: 157.5 cm WEIGHT: 51.3 kg BP: 117/67 IVSd: 1.8 cm (0.6 - 1.1) LVIDd: 4.9 cm (3.9 - 5.3) LVPWd: 1.8 cm (0.6 - 1.1) IVSs: 2.3 cm LVIDs: 3.8 cm LVPWs: 2.2 cm LA Diam: 4.3 cm (2.7 - 3.8) RVIDd: 3.4 cm (< 3.3) LAESV Index (A-L): 54.22 ml/m Ao Diam: 3.1 cm (2.0 - 3.7) AV Cusp: 1.9 cm (1.5 - 2.6) EPSS: 1.1 cm MV E Minesh: 1.34 m/s MV DecT: 196 ms MV A Minesh: 0.57 m/s MV E/A Ratio: 2.34 AR PHT: 945 ms RAP: 5.00 mmHg RVSP: 47.71 mmHg MV EF SLOPE: 68.69 mm/s (70 - 150) MV EXCURSION: 17.01 mm (> 18.000) FINDINGS -------- Sinus rhythm. This was a technically excellent study. The left ventricular size is normal. There is severe concentric left ventricular hypertrophy. Ove rall left ventricular systolic function is moderately impaired with, an EF between 35 - 40 %. Appea candace of myocardium is consistent with infiltrative cardiomyopathy. The right ventricle is mildly enlarged. LA is severely dilated >40 ml/m2 The right atrium is normal in size. Interatrial and interventricular septum intact. The aortic valve is trileaflet and appears structurally normal. There is [id number] aortic re gurgitation. Mild mitral regurgitation is present. Moderate tricuspid regurgitation present. There is moderate pulmonary hypertension. The right jimi tricular systolic pressure, as measured by Doppler, is 47.71mmHg. Moderate pulmonic regurgitation. The aortic root size is normal. Normal inferior vena cava with normal inspiratory collapse consistent with estimated right atrial pre ssure of 5 mmHg. There is no pericardial effusion. CONCLUSIONS -------- 1. Sinus rhythm. 2. This was a technically excellent study. 3. The left ventricular size is normal. 4. There is severe concentric left ventricular hypertrophy. 5. Overall left ventricular systolic function is moderately impaired with, an EF between 35 - 40 %. 6. Appearance of myocardium is consistent with infiltrative cardiomyopathy. 7. The right ventricle is mildly enlarged. 8. LA is severely dilated >40 ml/m2 9. The right atrium is normal in size. 10. Interatrial and interventricular septum intact. 11. The aortic valve is trileaflet and appears structurally normal. 12. There is ekao-[id number] aortic regurgitation. 13. Mild mitral regurgitation is present. 14. Moderate tricuspid regurgitation present. 15. There is moderate pulmonary hypertension. 16. The right ventricular systolic pressure, as measured by Doppler, is 47.71mmHg. 17. Moderate pulmonic regurgitation. 18. The aortic root size is normal. 19. Normal inferior vena cava with normal inspiratory collapse consistent with estimated right atrial pressure of 5 mmHg. 20. There is no pericardial effusion. SOAP MIXER: Keesha Keith RDCS
--- NOTE | 2018-12-06 20:37 | CONS ---
CONSULTATION REASON FOR CONSULT: End-stage renal disease. HISTORY OF PRESENT ILLNESS: Patient is a 28-year-old female who was admitted to the hospital with complaints of shortness of breath and fluid overload. The patient had missed her outpatient dialysis treatment. She denies any chest pain. She was dialyzed late last night with about 3 L of ultrafiltration. This morning patient states that she feels well and she was initially scheduled for an extra treatment. However, this morning she seems quite comfortable and not in fluid overload. Therefore, she is advised that she can be discharged and follow up as outpatient for her next treatment tomorrow. No history of fever, cough, abdominal pain, or chest pain. The patient's potassium was also elevated at the time of admission at 6.8. This morning she was down to 4.7 mEq/L. PAST MEDICAL HISTORY: End-stage renal disease, history of failed renal transplant, hypertension. History of polycystic kidneys, chronic back pain. History of previous admissions for fluid overload. PAST SURGICAL HISTORY: Hernia repair. Cardiac catheterization, PermCath placement, kidney transplant, teeth extraction, AV graft. SOCIAL HISTORY: Patient is a former smoker. No history of drug abuse or alcohol abuse. MEDICATIONS: Prior to admission included PhosLo, Xanax, ProAir, Coreg, Sensipar, nifedipine, Protonix, prednisone, Kayexalate, hydralazine, sodium bicarb. ALLERGIES: Include hydralazine which causes rapid heart rate. PHYSICAL EXAMINATION: Patient is currently comfortable, awake. She is not in any acute distress. Blood pressure is 117/67, heart rate 88 per minute. She is afebrile. Examination of the heart S1, S2. Examination of the lungs bilateral breath sounds are heard. Abdomen is soft, nontender. Examination of lower extremities shows no evidence of edema. STUD SHEEP F[employer]ER exam is grossly intact. LAB: Show sodium 137, potassium 4.7, BUN 55, serum creatinine 9.1, hemoglobin 9.1 g/dL. ASSESSMENT: 1. End-stage renal disease, on hemodialysis on a Wednesday, Wednesday, Wednesday schedule. 2. Fluid overload, currently improved post dialysis. 3. Hyperkalemia, improved post dialysis. 4. History of failed renal transplant. 5. CKD mineral bone disorder. 6. Anemia of chronic disease. PLAN: The patient will follow up as outpatient for her regularly scheduled treatment tomorrow. She is advised to be compliant with her dialysis treatments as well. MMEDILSONL / SHERITAN: [id number] /
--- NOTE | 2018-12-07 07:56 | CDI ---
Documentation Clarification Form Date: 12/06/2018 9:36:00 AM From: Clara Rosales CCS, CCDS Admit Date: 12/05/2018 6:02:00 PM Patient Name: Rosi Winslow Visit Number: [id number] Discharge Date: 12/06/2018 5:23:00 PM ATTENTION: The Clinical Documentation Specialists (CDI) and [facility] Coding Staff appreciate your assistance in clarifying documentation. Please respond to the clarification below the line at the bottom and electronically sign. The CDI & [facility] Coding staff will review the response and follow-up if needed. Please note: Queries are made part of the Legal Health Record. If you have any questions, please contact the author of this message via ITS. Dr. Agnieszka Travis: Per the ED note, the patient is admitted with "Hypertensive Emergency" History/Risk Factors: Combined systolic & diastolic CHF, Hypertension, ESRD on HD due to polycystic disease with history of a failed kidney transplant, Anemia and DM II. Clinical Indicators: Presented with SOB, diagnosed with acute exacerbation of combined heart failure with history of hypertension per the History & Physical. VS: P 104^, R 18 (sob, cough), BP 189/124^, 186/139^, 167/113^ Lab findings: Hgb 9.7*, K 6.2^^, BUN 84^, Cr 12.87^^, Glucose 54*, Troponin x1 0.1^^ Radiology findings: CXR: Pulmonary edema increased & consistent with increased congestive heart failure, moderate cardiomegaly. Treatment: IV Lasix, IV fl 20, Albuterol INH, IV CalGluconate, IV Dextrose/Water, IV Insulin, IV Morphine Sulfate, Nitropaste, IV Labetalol, O2 2Lnc In your professional opinion, can you please clarify if the patient is being treated for: Hypertensive Emergency Hypertensive Urgency Other, please specify Unable to determine (Last Revision: October 2017) Hypertensive Urgency MTDD
[2018-12-07] MEDS ORDERED: CINACALCET 30 MG TAB PO SCH (09:00)
--- NOTE | 2018-12-07 09:13 | DS ---
DISCHARGE SUMMARY DATE OF SERVICE: 12/06/2018 FINAL DIAGNOSES: 1. Congestive heart failure acute exacerbation with acute on chronic systolic dysfunction, ejection fraction 20% to 25%. 2. End-stage renal disease on hemodialysis with missed hemodialysis. 3. Abdominal discomfort, possible acute gastritis. 4. Anemia. 5. Troponin 0.101, indeterminate. 6. History of asthma. 7. Hypertension. 8. History of polycystic kidney disease with failed kidney transplant. 9. History of anxiety, depression. 10.Hyperkalemia. 11.Hypoglycemia. 12.FULL CODE. DISCHARGE DISPOSITION: The patient will be discharged in stable condition with guarded prognosis. HISTORY OF PRESENT ILLNESS: This 28-year-old woman with a past medical history of multiple medical problems admitted with CHF acute exacerbation, had missed hemodialysis. The patient treated with Lasix as well as urgent hemodialysis. Patient improved significantly. The patient also had multiple other abnormalities also. Seen by Cardiology and Nephrology. Recommended the patient to be discharged and 2-D echo with Doppler was also done which showed ejection fraction about 35% to 40% and LA was severely dilated. The patient follows with Dr. Baez in the outpatient setting. On exam, vitals are stable. CARDIOVASCULAR: S1, S2 muffled. RESPIRATION: A few scattered rhonchi. ABDOMEN: Soft, nontender. NERVOUS SYSTEM: No focal deficits. DISCHARGE ADVICE: 1. Diet is cardiac diet. 2. Activity limited until follow up. 3. Follow up with Dr. Baez in 2 to 3 days. 4. Follow up with Dr. Thompson as advised. 5. Follow up with low raw sugar cutter as recommended. Medications are: 1. Apresoline 100 mg p.o. t.i.d. 2. Coreg 25 mg p.o. b.i.d. 3. EMLA cream one application topically daily p.r.n. 4. Kayexalate 15 p.o. q.h.s. 5. MiraLAX 17 grams daily p.r.n. 6. Nifedipine ER 90 mg p.o. daily. 7. PhosLo 667 p.o. q.h.s. p.r.n. 8. Prednisone 10 mg p.o. daily. 9. ProAir 2 puffs q.6 p.r.n. 10.Protonix 40 mg p.o. daily. 11.Sensipar 30 mg Wednesday, Wednesday, Wednesday. 12.Sodium bicarb 650 mg p.o. b.i.d. 13.Symbicort 80/4.5 two puffs b.i.d. 14.Trazodone 50 mg q.h.s. p.r.n. 15.Xanax 0.25 q.h.s. p.r.n. 16.Tylenol p.r.n. 17.Zofran 4 mg q.8 p.r.n. Once again, the patient will be discharged in a stable condition with guarded prognosis. Importance of compliance also stressed to the patient. MMODL / IJN: [id number] / MTDD
== END 2018-12-06 17:23 | disposition home or self-care (01) | DRG 291 ==
LOC: EC 14:31 → 3SCARD 18:02
PROVIDERS: ADMIT Hospitalist; ATTEND Hospitalist
PROC: 5A1D70Z Performance of Urinary Filtration, Intermittent, Less than 6 Hours Per Day (ICD-10-PCS; principal; 2018-12-05)
DX: I13.2 Hypertensive heart and chronic kidney disease with heart failure and with stage 5 chronic kidney disease, or end stage renal disease (principal); I50.23 Acute on chronic systolic (congestive) heart failure; N18.6 End stage renal disease; Q61.3 Polycystic kidney, unspecified; I16.1 Hypertensive emergency; T86.12 Kidney transplant failure; I27.20 Pulmonary hypertension, unspecified; E87.5 Hyperkalemia; I42.9 Cardiomyopathy, unspecified; I16.0 Hypertensive urgency; D63.1 Anemia in chronic kidney disease; E16.2 Hypoglycemia, unspecified; I08.8 Other rheumatic multiple valve diseases; J45.909 Unspecified asthma, uncomplicated; E83.89 Other disorders of mineral metabolism; E55.9 Vitamin D deficiency, unspecified; F32.9 Major depressive disorder, single episode, unspecified; F41.9 Anxiety disorder, unspecified; G89.29 Other chronic pain; M19.90 Unspecified osteoarthritis, unspecified site; N83.209 Unspecified ovarian cyst, unspecified side; N92.6 Irregular menstruation, unspecified; M54.5 Low back pain; R77.9 Abnormality of plasma protein, unspecified; K29.00 Acute gastritis without bleeding; Z79.51 Long term (current) use of inhaled steroids; Z79.899 Other long term (current) drug therapy; Z79.52 Long term (current) use of systemic steroids; Z87.891 Personal history of nicotine dependence; Z91.5 Personal history of self-harm; Z88.8 Allergy status to other drugs, medicaments and biological substances; Z99.2 Dependence on renal dialysis
CPT/HCPCS: 36415; 71046; 80048; 80053; 83605; 83735; 83880; 84132; 84484; 85025; 85610; 85730; 87040; 90935; 93005; 93306; 94640; 96365; 96375; 99285

== ENCOUNTER 2019-02-26 23:21 | Inpatient (IN) | payer BC, MEDICARE, OTHER ==
[2019-02-26] MEDS ORDERED: IPRATROPIUM-ALBUTEROL 3 ML NEB INHALATION STA (23:42)
--- NOTE | 2019-02-27 00:16 | ED ---
SOB HPI - General Chief Complaint: Shortness of Breath Stated Complaint: Weakness Time Seen by Provider: 02/26/19 23:41 Source: patient, RN notes reviewed, old records reviewed Mode of arrival: wheelchair Limitations: no limitations - History of Present Illness Initial Comments: This is a 28-year-old female the ER for evaluation. Patient has significant history of polycystic kidney disease, significant renal failure currently. Patient having significant short of breath unable to catch her breath and pain. She has been recent illnesses was treated to full completion. Patient has increasing waking she thinks on 5 pounds. She feels completely edematous of pain and shortness of breath. No specific chest pain is generalized body pain. MD Complaint: shortness of breath -: days(s) Severity: moderate Severity scale (1-10): 7 Consistency: constant Improves With: rest Worsens With: exertion Known History Of: congestive heart failure, other (Renal failure) Associated Symptoms: chest pain, pain with inspiration, orthopnea, lower abdominal swelling, nausea/vomiting Treatments Prior to Arrival: none - Related Data Home Medications Medication Instructions Recorded Confirmed Albuterol Sulfate [Proair Hfa] 2 puff INHALATION RT-Q6H PRN 01/21/02/26/19 Calcium Acetate [PhosLo] 1,334 mg PO ACHS PRN 05/01/18 02/26/19 ALPRAZolam [Xanax] 0.25 mg PO HS PRN 05/28/18 02/26/19 Budesonide/Formoterol Fumarate 2 puff INHALATION RT-Q12H 05/28/18 02/26/19 [Symbicort 80-4.5 Mcg Inhaler] Carvedilol [Coreg] 25 mg PO BID 05/28/18 02/26/19 Pantoprazole [Protonix] 40 mg PO DAILY 05/28/18 02/26/19 predniSONE 10 mg PO DAILY 05/28/18 02/26/19 traZODone HCL 50 mg PO HS PRN 07/29/18 02/26/19 Lidocaine-Prilocaine Cream [Emla 1 applic TOPICAL DAILY PRN 11/16/18 02/26/19 Cream 2.5%/2.5%] Sodium Polystyrene Sulfonate 30 gm PO MOTUWETHFR 11/16/18 02/26/19 [Kayexalate] hydrALAZINE HCL [Apresoline] 100 mg PO TID 11/16/18 02/26/19 Cinacalcet HCl [Sensipar] 60 mg PO MOWEFR 02/26/19 02/26/19 NIFEdipine [NIFEdipine ER] 60 mg PO DAILY 02/26/19 02/26/19 Previous Rx's Medication Instructions Recorded Ondansetron Odt [Zofran ODT] 4 mg PO Q8HR PRN #10 tab 07/02/18 Acetaminophen Tab [Tylenol] 650 mg PO Q6HR PRN tab 08/29/18 Allergies Allergy/AdvReac Type Severity Reaction Status Date / Time hydralazine AdvReac Rapid Verified 02/26/19 23:52 Heart Rate WHEN GIVEN THROUGH IV Review of Systems ROS Statement: Those systems with pertinent positive or pertinent negative responses have been documented in the HPI. ROS Other: All systems not noted in ROS Statement are negative. Past Medical History Past Medical History: Asthma, Heart Failure, Hypertension, Renal Disease Additional Past Medical History / Comment(s): ESRD d/t being born with polycystic kidney disease, failed kidney transplant, hemodialysis, cardiomegally with EF 20-25%, chronic anemia, vitamin D deficiency, chronic low back pain, ovarian cysts, irregular menses, History of Any Multi-Drug Resistant Organisms: None Reported Past Surgical History: Heart Catheterization, Hernia Repair Additional Past Surgical History / Comment(s): 06/14/18 cardiac cath at [facility] to check coronary pressures, 11/15/09 Failed kidney transplant R pelvis, dialysis catheter in and out, current L upper arm AVG, supra pubic hernia repair, transvaginal mesh, wisdom teeth extraction with anesthesia. Past Anesthesia/Blood Transfusion Reactions: No Reported Reaction Additional Past Anesthesia/Blood Transfusion Reaction / Comment(s): Pt has received blood in past without reaction. Past Psychological History: Anxiety, Depression Smoking Status: Former smoker Past Alcohol Use History: None Reported Past Drug Use History: None Reported - Past Family History Father Family Medical History: No Reported History Additional Family Medical History / Comment(s): Father is healthy and is 59 yrs old. Mother Family Medical History: No Reported History Additional Family Medical History / Comment(s): Mother is healthy and is 57 yrs old. General Exam Limitations: no limitations General appearance: alert, in no apparent distress, anxious Head exam: Present: atraumatic, normocephalic, normal inspection Eye exam: Present: normal appearance, PERRL, EOMI. Absent: scleral icterus, conjunctival injection, periorbital swelling ENT exam: Present: normal exam, mucous membranes moist Neck exam: Present: normal inspection. Absent: tenderness, meningismus, l ymphadenopathy Respiratory exam: Present: rales, accessory muscle use, decreased breath sounds. Absent: respiratory distress, wheezes, rhonchi, stridor Cardiovascular Exam: Present: normal rhythm, tachycardia, normal heart sounds. Absent: systolic murmur, diastolic murmur, rubs, gallop, clicks GI/Abdominal exam: Present: soft, normal bowel sounds. Absent: distended, tenderness, guarding, rebound, rigid Extremities exam: Present: normal inspection, full ROM, normal capillary refill. Absent: tenderness, pedal edema, joint swelling, calf tenderness Back exam: Present: normal inspection Neurological exam: Present: alert, oriented X3, CN II-XII intact Psychiatric exam: Present: normal affect, normal mood Skin exam: Present: warm, dry, intact, normal color. Absent: rash Course Vital Signs 02/26/19 02/26/19 02/26/19 23:37 23:52 23:53 Temperature 98.7 F Pulse Rate 112 H 104 H Respiratory 22 22 Rate Blood Pressure 190/124 O2 Sat by Pulse 95 Oximetry 02/26/19 23:59 Temperature Pulse Rate 112 H Respiratory Rate Blood Pressure O2 Sat by Pulse Oximetry - Reevaluation(s) Reevaluation #1: 02/27/19 02:38 Medical records reviewed Reevaluation #2: 02/27/19 02:38 No improvement with breathing treatment Medical Decision Making - Medical Decision Making 28 female the ER for evaluation presents today for evaluation regards to his breath and fluid overload, patient is dialysis patient. She did complete a recent dialysis but symptoms of been increasing leg is increasing shortness of breath is increasing - Lab Data Result diagrams: 02/27/19 00:01 02/27/19 00:01 Lab Results 02/27/19 02/27/19 02/27/19 Range/Units 00:01 00:01 00:01 WBC 7.5 (3.8-10.6) k/uL RBC 3.37 L (3.80-5.40) m/uL Hgb 9.5 L (11.4-16.0) gm/dL Hct 31.4 L (34.0-46.0) % MCV 93.1 (80.0-100.0) fL MCH 28.2 (25.0-35.0) pg MCHC 30.3 L (31.0-37.0) g/dL RDW 21.6 H (11.5-15.5) % Plt Count 189 (150-450) k/uL Neutrophils % 78 % Lymphocytes % 13 % Monocytes % 3 % Eosinophils % 5 % Basophils % 1 % Neutrophils # 5.8 (1.3-7.7) k/uL Lymphocytes # 1.0 (1.0-4.8) k/uL Monocytes # 0.2 (0-1.0) k/uL Eosinophils # 0.4 (0-0.7) k/uL Basophils # 0.1 (0-0.2) k/uL Hypochromasia Moderate Anisocytosis Moderate Macrocytosis Slight PT (9.0-12.0) sec INR (<1.2) APTT (22.0-30.0) sec Sodium 138 (137-145) mmol/L Potassium 5.9 H (3.5-5.1) mmol/L Chloride 98 (98-107) mmol/L Carbon Dioxide 26 (22-30) mmol/L Anion Gap 14 mmol/L BUN 65 H (7-17) mg/dL Creatinine 11.51 H* (0.52-1.04) mg/dL Est GFR (CKD-EPI)AfAm 5 (>60 ml/min/1.73 sqM) Est GFR (CKD-EPI)NonAf 4 (>60 ml/min/1.73 sqM) Glucose 92 (74-99) mg/dL Calcium 9.0 (8.4-10.2) mg/dL Magnesium 2.5 H (1.6-2.3) mg/dL Total Bilirubin 0.8 (0.2-1.3) mg/dL AST 28 (14-36) U/L ALT 21 (9-52) U/L Alkaline Phosphatase 76 (38-126) U/L Troponin I (0.000-0.034) ng/mL NT-Pro-B Natriuret Pep [id number] pg/mL Total Protein 7.3 (6.3-8.2) g/dL Albumin 4.0 (3.5-5.0) g/dL 02/27/19 02/27/19 Range/Units 00:01 00:34 WBC (3.8-10.6) k/uL RBC (3.80-5.40) m/uL Hgb (11.4-16.0) gm/dL Hct (34.0-46.0) % MCV (80.0-100.0) fL MCH (25.0-35.0) pg MCHC (31.0-37.0) g/dL RDW (11.5-15.5) % Plt Count (150-450) k/uL Neutrophils % % Lymphocytes % % Monocytes % % Eosinophils % % Basophils % % Neutrophils # (1.3-7.7) k/uL Lymphocytes # (1.0-4.8) k/uL Monocytes # (0-1.0) k/uL Eosinophils # (0-0.7) k/uL Basophils # (0-0.2) k/uL Hypochromasia Anisocytosis Macrocytosis PT 11.0 (9.0-12.0) sec INR 1.0 (<1.2) APTT 25.3 (22.0-30.0) sec Sodium (137-145) mmol/L Potassium (3.5-5.1) mmol/L Chloride (98-107) mmol/L Carbon Dioxide (22-30) mmol/L Anion Gap mmol/L BUN (7-17) mg/dL Creatinine (0.52-1.04) mg/dL Est GFR (CKD-EPI)AfAm (>60 ml/min/1.73 sqM) Est GFR (CKD-EPI)NonAf (>60 ml/min/1.73 sqM) Glucose (74-99) mg/dL Calcium (8.4-10.2) mg/dL Magnesium (1.6-2.3) mg/dL Total Bilirubin (0.2-1.3) mg/dL AST (14-36) U/L ALT (9-52) U/L Alkaline Phosphatase (38-126) U/L Troponin I 0.087 H* (0.000-0.034) ng/mL NT-Pro-B Natriuret Pep pg/mL Total Protein (6.3-8.2) g/dL Albumin (3.5-5.0) g/dL - EKG Data -: EKG Interpreted by Me (EKG shows sinus tachycardia rate 114, CA 182, QRS 90, QTc 611) - Radiology Data Radiology results: report reviewed (Chest x-ray significant for CHF and pulmonary edema), image reviewed Disposition Clinical Impression: Systolic congestive heart failure, Acute pulmonary edema, Chronic renal disease, Anemia secondary to renal failure, Acute on chronic renal failure, Heart failure Disposition: ADMITTED IP TO THIS HOSP Condition: Fair Is patient prescribed a controlled substance at d/c from ED?: No Referrals: Mary Baez MD [Primary Care Provider] - 1-2 days
[2019-02-27 00:35] LABS: Anisocytosis Moderate; Basophils # (A) 0.1 k/uL (0-0.2); Basophils % (A) 1 %; Eosinophils # (A) 0.4 k/uL (0-0.7); Eosinophils % (A) 5 %; HCT 31.4 % (34.0-46.0); HGB 9.5 gm/dL (11.4-16.0); Hypochromasia Moderate; Lymphocytes % (A) 13 %; MCH 28.2 pg (25.0-35.0); MCHC 30.3 g/dL (31.0-37.0); MCV 93.1 fL (80.0-100.0); Macrocytosis Slight; Mean Platelet Volume 8.2; Monocytes # (A) 0.2 k/uL (0-1.0); Monocytes % (A) 3 %; Neutrophils # (A) 5.8 k/uL (1.3-7.7); Neutrophils % (A) 78 %; Platelet Count 189 k/uL (150-450); RBC 3.37 m/uL (3.80-5.40); RDW 21.6 % (11.5-15.5); WBC 7.5 k/uL (3.8-10.6)
--- NOTE | 2019-02-27 00:45 | XR ---
EXAM: XR Chest, 2 Views CLINICAL HISTORY: ITS.REASON XR Reason: difficulty breathing TECHNIQUE: Frontal and lateral views of the chest. COMPARISON: 12/05/18 FINDINGS: Lungs: Diffuse interstitial markings. Pleural space: No effusion. Heart: Cardiomegaly. Mediastinum: Unremarkable. Bones/joints: No acute findings. IMPRESSION: Cardiomegaly with moderate pulmonary edema.
[2019-02-27 00:54] LABS: Partial Thromboplastin Time 25.3 sec (22.0-30.0)
[2019-02-27 00:56] LABS: Magnesium 2.5 mg/dL (1.6-2.3); Potassium 5.9 mmol/L (3.5-5.1); Total Bilirubin 0.8 mg/dL (0.2-1.3); Total Protein 7.3 g/dL (6.3-8.2)
[2019-02-27] MEDS ORDERED: MORPHINE SULFATE 4 MG/ML SYRINGE IVP PRN (02:33)
[2019-02-27] MEDS ORDERED: MORPHINE SULFATE 4 MG/ML SYRINGE IVP STA (02:33)
[2019-02-27] MEDS ORDERED: LABETALOL 5 MG/ML VIAL MDV IVP ONE (03:45)
[2019-02-27] MEDS ORDERED: ONDANSETRON 4 MG/2 ML VIAL IVP STA (04:06)
[2019-02-27] MEDS ORDERED: ENALAPRILAT 1.25 MG/ML 1 ML VIAL IVP STA (05:26)
[2019-02-27 07:36] VITALS: BMI 23.1
[2019-02-27] MEDS ORDERED: ENOXAPARIN 40 MG/0.4 ML SYRINGE SQ SCH (09:00)
--- NOTE | 2019-02-27 09:47 | P.NPCON ---
History of Present Illness - Reason for Consult end stage renal disease - History of Present Illness Reason for consultation: End-stage renal disease History of present illness: Patient is a 28-year-old female seen in renal consultation for end-stage renal disease. She is maintained on hemodialysis on a Wednesday schedule. Patient presented to the hospital due to shortness of breath. Justin cannon states she completed hemodialysis on Wednesday but is unsure as to how much fluid was taken off. Patient states Wednesday she started feeling congested and couldn't make it to dialysis this morning. Patient does have history of systolic CHF with ejection fraction of 20-25% with mild to moderate mitral regurgitation, severe tricuspid regurgitation and severe pulmonary hypertension. She denies fever or chills. Denies vomiting or diarrhea. Hemoglobin is stable. Chest x-ray was suggestive of pulmonary edema. Vital signs are stable. General: The patient appeared well nourished and normally developed. HEENT: Head exam is unremarkable. Neck is without jugular venous distension. LUNGS: Breath sounds decreased. HEART: Rate and Rhythm are regular. First and second heart sounds normal. No m urmurs, rubs or gallops. ABDOMEN: Abdominal exam reveals normal bowel sounds. Non-tender and non-di stended. No evidence of peritonitis. EXTREMITITES: No clubbing, cyanosis, or edema. Past Medical History Past Medical History: Asthma, Heart Failure, Hypertension, Renal Disease Additional Past Medical History / Comment(s): ESRD d/t being born with polycystic kidney disease, failed kidney transplant, hemodialysis, cardiomegally with EF 20-25%, chronic anemia, vitamin D deficiency, chronic low back pain, ovarian cysts, irregular menses, History of Any Multi-Drug Resistant Organisms: None Reported Past Surgical History: Heart Catheterization, Hernia Repair Additional Past Surgical History / Comment(s): 06/14/18 cardiac cath at [facility] to check coronary pressures, 11/15/09 Failed kidney transplant R pelvis, dialysis catheter in and out, current L upper arm AVG, supra pubic hernia repair, transvaginal mesh, wisdom teeth extraction with anesthesia. Past Anesthesia/Blood Transfusion Reactions: No Reported Reaction Additional Past Anesthesia/Blood Transfusion Reaction / Comment(s): Pt has received blood in past without reaction. Past Psychological History: Anxiety, Depression Additional Psychological History / Comment(s): Pt resides with family. She is independent. She drives. She is disabled. She states she has anxiety and depression but no suicidal thoughts/ idealations or plans. She had one suicide attempt with overdose in 2012. Smoking Status: Former smoker Past Alcohol Use History: None Reported Additional Past Alcohol Use History / Comment(s): Pt states she quit smoking in 2016. Past Drug Use History: None Reported - Past Family History Father Family Medical History: No Reported History Additional Family Medical History / Comment(s): Father is healthy and is 59 yrs old. Mother Family Medical History: No Reported History Additional Family Medical History / Comment(s): Mother is healthy and is 57 yrs old. Medications and Allergies Home Medications Medication Instructions Recorded Confirmed Type Albuterol Sulfate [Proair Hfa] 2 puff INHALATION RT-Q6H PRN 01/21/02/26/19 History Calcium Acetate [PhosLo] 1,334 mg PO ACHS PRN 05/01/18 02/26/19 History ALPRAZolam [Xanax] 0.25 mg PO HS PRN 05/28/18 02/26/19 History Budesonide/Formoterol Fumarate 2 puff INHALATION RT-Q12H 05/28/18 02/26/19 History [Symbicort 80-4.5 Mcg Inhaler] Carvedilol [Coreg] 25 mg PO BID 05/28/18 02/26/19 History Pantoprazole [Protonix] 40 mg PO DAILY 05/28/18 02/26/19 History predniSONE 10 mg PO DAILY 05/28/18 02/26/19 History Ondansetron Odt [Zofran ODT] 4 mg PO Q8HR PRN #10 tab 07/02/18 02/26/19 Rx traZODone HCL 50 mg PO HS PRN 07/29/18 02/26/19 History Acetaminophen Tab [Tylenol] 650 mg PO Q6HR PRN tab 08/29/18 02/26/19 Rx Lidocaine-Prilocaine Cream [Emla 1 applic TOPICAL DAILY PRN 11/16/18 02/26/19 History Cream 2.5%/2.5%] Sodium Polystyrene Sulfonate 30 gm PO MOTUWETHFR 11/16/18 02/26/19 History [Kayexalate] hydrALAZINE HCL [Apresoline] 100 mg PO TID 11/16/18 02/26/19 History Cinacalcet HCl [Sensipar] 60 mg PO MOWEFR 02/26/19 02/26/19 History NIFEdipine [NIFEdipine ER] 60 mg PO DAILY 02/26/19 02/26/19 History Allergies Allergy/AdvReac Type Severity Reaction Status Date / Time hydralazine AdvReac Rapid Verified 02/26/19 23:52 Heart Rate WHEN GIVEN THROUGH IV Physical Exam Vitals: Vital Signs Temp Pulse Pulse Pulse Resp BP BP 02/27/19 07:23 97.8 F 89 16 134/90 02/27/19 06:50 98.3 F 100 16 145/114 02/27/19 06:16 155/116 02/27/19 05:27 86 20 143/121 02/27/19 05:02 93 20 147/122 02/27/19 03:32 107 H 20 170/118 02/26/19 23:59 112 H 02/26/19 23:53 104 H 02/26/19 23:52 22 02/26/19 23:41 02/26/19 23:37 98.7 F 112 H 22 190/124 Pulse Ox 02/27/19 07:23 100 02/27/19 06:50 100 02/27/19 06:16 02/27/19 05:27 100 02/27/19 05:02 94 L 02/27/19 03:32 95 02/26/19 23:59 02/26/19 23:53 02/26/19 23:52 02/26/19 23:41 99 02/26/19 23:37 95 Intake and Output 02/26/19 02/27/19 02/27/19 22:59 06:59 14:59 Other: Weight 57.47 kg Results - Lab Results Most recent lab results Calcium 9.0 mg/dL (8.4-10.2) 02/27/19 00:01 Magnesium 2.5 mg/dL (1.6-2.3) H 02/27/19 00:01 02/27/19 00:01 02/27/19 00:01 Assessment and Plan Plan: Assessment: 1. End-stage renal disease maintained on hemodialysis on a Wednesday schedule. 2. Dyspnea secondary to volume overload. 3. Systolic CHF with ejection fraction of 20-25% with mild to moderate mitral regurgitation and severe pulmonary hypertension. 4. Hypertension with chronic kidney disease. Stable. 5. Hyperkalemia secondary to chronic kidney disease. 6. Chronic kidney disease mineral bone disease. 7. Status post failed kidney transplant maintained on prednisone. Plan: Hemodialysis today with goal 4 L ultrafiltration. Extra treatment tomorrow depending on volume status. Home antihypertensives and phosphate binders to be resumed. Resume prednisone. Thank you for the consultation. I will continue to follow the patient with you during her hospital stay.
[2019-02-27] MEDS: predniSONE 10 MG TAB PO SCH (10:15)
[2019-02-27] MEDS: ONDANSETRON 4 MG/2 ML VIAL IVP PRN ×3 (10:18→22:03)
--- NOTE | 2019-02-27 10:28 | P.CRDCN ---
History of Present Illness Consult date: 02/27/19 Requesting physician: Agnieszka Travis Consult reason: congestive heart failure Chief complaint: Shortness of breath History of present illness: This is a 28-year-old -F[place]ian female with past medical history significant for end-stage renal disease, status post failed transplant, on hemodialysis, hypertension, severe pulmonary hypertension and nonischemic cardiomyopathy. Most recent cardiac echocardiogram was performed in November of this year and revealed an ejection fraction of 35-40%, LA is severely dilated, mild to moderate aortic regurgitation, moderate tricuspid regurg, moderate pulmonary hypertension. She presented to the hospital with symptoms of severe shortness of breath. According to the patient she did undergo dialysis on Wednesday, over the weekend started to become quite short of breath. Her blood pressure on arrival here 190/124 heart rate 100, blood pressure this morning 155/116 with a heart rate of 100. White blood cell count 7.5, hemoglobin 9.5, platelet count 189. Sodium 138, potassium 5.9, BUN 65 and creatinine 11.5. Magnesium 2.5. Troponin 0.087, 0.092. BNP level 121,000. Chest x-ray shows cardiomegaly with moderate pulmonary edema. EKG shows a sinus tachycardia with evidence of left ventricular hypertrophy and nonspecific ST-T changes. At the time of my examination this morning, patient is quite short of breath, she is scheduled today to undergo dialysis with the goal of 4 L ultrafiltration. Past Medical History Past Medical History: Asthma, Heart Failure, Hypertension, Renal Disease Additional Past Medical History / Comment(s): ESRD d/t being born with polycystic kidney disease, failed kidney transplant, hemodialysis, cardiomegally with EF 20-25%, chronic anemia, vitamin D deficiency, chronic low back pain, ovarian cysts, irregular menses, History of Any Multi-Drug Resistant Organisms: None Reported Past Surgical History: Heart Catheterization, Hernia Repair Additional Past Surgical History / Comment(s): 06/14/18 cardiac cath at [facility] to check coronary pressures, 11/15/09 Failed kidney transplant R pelvis, dialysis catheter in and out, current L upper arm AVG, supra pubic hernia repair, tr ansvaginal mesh, wisdom teeth extraction with anesthesia. Past Anesthesia/Blood Transfusion Reactions: No Reported Reaction Additional Past Anesthesia/Blood Transfusion Reaction / Comment(s): Pt has received blood in past without reaction. Past Psychological History: Anxiety, Depression Additional Psychological History / Comment(s): Pt resides with family. She is independent. She drives. She is disabled. She states she has anxiety and depression but no suicidal thoughts/ idealations or plans. She had one suicide attempt with overdose in 2012. Smoking Status: Former smoker Past Alcohol Use History: None Reported Additional Past Alcohol Use History / Comment(s): Pt states she quit smoking in 2016. Past Drug Use History: None Reported - Past Family History Father Family Medical History: No Reported History Additional Family Medical History / Comment(s): Father is healthy and is 59 yrs old. Mother Family Medical History: No Reported History Additional Family Medical History / Comment(s): Mother is healthy and is 57 yrs old. Medications and Allergies Home Medications Medication Instructions Recorded Confirmed Type Albuterol Sulfate [Proair Hfa] 2 puff INHALATION RT-Q6H PRN 01/21/02/26/19 Hi story Calcium Acetate [PhosLo] 1,334 mg PO ACHS PRN 05/01/18 02/26/19 History ALPRAZolam [Xanax] 0.25 mg PO HS PRN 05/28/18 02/26/19 History Budesonide/Formoterol Fumarate 2 puff INHALATION RT-Q12H 05/28/18 02/26/19 History [Symbicort 80-4.5 Mcg Inhaler] Carvedilol [Coreg] 25 mg PO BID 05/28/18 02/26/19 History Pantoprazole [Protonix] 40 mg PO DAILY 05/28/18 02/26/19 History predniSONE 10 mg PO DAILY 05/28/18 02/26/19 History Ondansetron Odt [Zofran ODT] 4 mg PO Q8HR PRN #10 tab 07/02/18 02/26/19 Rx traZODone HCL 50 mg PO HS PRN 07/29/18 02/26/19 History Acetaminophen Tab [Tylenol] 650 mg PO Q6HR PRN tab 08/29/18 02/26/19 Rx Lidocaine-Prilocaine Cream [Emla 1 applic TOPICAL DAILY PRN 11/16/18 02/26/19 History Cream 2.5%/2.5%] Sodium Polystyrene Sulfonate 30 gm PO MOTUWETHFR 11/16/18 02/26/19 History [Kayexalate] hydrALAZINE HCL [Apresoline] 100 mg PO TID 11/16/18 02/26/19 History Cinacalcet HCl [Sensipar] 60 mg PO MOWEFR 02/26/19 02/26/19 History NIFEdipine [NIFEdipine ER] 60 mg PO DAILY 02/26/19 02/26/19 History Allergies Allergy/AdvReac Type Severity Reaction Status Date / Time hydralazine AdvReac Rapid Verified 02/26/19 23:52 Heart Rate WHEN GIVEN THROUGH IV Physical Exam Vitals: Vital Signs Temp Pulse Pulse Pulse Resp BP BP 02/27/19 07:23 97.8 F 89 16 134/90 02/27/19 06:50 98.3 F 100 16 145/114 02/27/19 06:16 155/116 02/27/19 05:27 86 20 143/121 02/27/19 05:02 93 20 147/122 02/27/19 03:32 107 H 20 170/118 02/26/19 23:59 112 H 02/26/19 23:53 104 H 02/26/19 23:52 22 02/26/19 23:41 02/26/19 23:37 98.7 F 112 H 22 190/124 Pulse Ox 02/27/19 07:23 100 02/27/19 06:50 100 02/27/19 06:16 02/27/19 05:27 100 02/27/19 05:02 94 L 02/27/19 03:32 95 02/26/19 23:59 02/26/19 23:53 02/26/19 23:52 02/26/19 23:41 99 02/26/19 23:37 95 Intake and Output 02/26/19 02/27/19 02/27/19 22:59 06:59 14:59 Other: Weight 57.47 kg PHYSICAL EXAMINATION: GENERAL: 28-year-old -Fijian female in no acute distress at the time of my examination HEENT: Head is atraumatic, normocephalic. Pupils equal, round. Sclera anicteric. Conjunctiva are clear. Mucous membranes of the mouth are moist. Neck is supple. There is elevated jugular venous pressure. No carotid bruit is heard. HEART EXAMINATION: Heart S1 and S2 systolic ejection murmur is heard at the base and apex. Parasternal heave noted CHEST EXAMINATION: Lungs reveal diminished air entry to bilateral bases. ABDOMEN: Soft, nontender. Bowel sounds are heard. No organomegaly noted. EXTREMITIES: 2+ peripheral pulses with no evidence of peripheral edema and no calf tenderness noted. NEUROLOGIC patient is awake, alert and oriented 3 . Results 02/27/19 00:01 02/27/19 00:01 Cardiac Enzymes 02/27/19 02/27/19 02/27/19 Range/Units 00:01 00:01 08:37 AST 28 (14-36) U/L Troponin I 0.087 H* 0.092 H* (0.000-0.034) ng/mL Coagulation 02/27/19 Range/Units 00:34 PT 11.0 (9.0-12.0) sec APTT 25.3 (22.0-30.0) sec CBC 02/27/19 Range/Units 00:01 WBC 7.5 (3.8-10.6) k/uL RBC 3.37 L (3.80-5.40) m/uL Hgb 9.5 L (11.4-16.0) gm/dL Hct 31.4 L (34.0-46.0) % Plt Count 189 (150-450) k/uL Comprehensive Metabolic Panel 02/27/19 Range/Units 00:01 Sodium 138 (137-145) mmol/L Potassium 5.9 H (3.5-5.1) mmol/L Chloride 98 (98-107) mmol/L Carbon Dioxide 26 (22-30) mmol/L BUN 65 H (7-17) mg/dL Creatinine 11.51 H* (0.52-1.04) mg/dL Glucose 92 (74-99) mg/dL Calcium 9.0 (8.4-10.2) mg/dL AST 28 (14-36) U/L ALT 21 (9-52) U/L Alkaline Phosphatase 76 (38-126) U/L Total Protein 7.3 (6.3-8.2) g/dL Albumin 4.0 (3.5-5.0) g/dL Current Medications Generic Name Dose Route Start Last Admin Trade Name Freq PRN Reason Stop Dose Admin Enoxaparin Sodium 40 mg 02/27/19 09:00 02/27/19 08:13 Lovenox SQ Not Given DAILY SELENE Morphine Sulfate 4 mg 02/27/19 02:33 Morphine Sulfate (Inj) IVP Q6HR PRN Pain Ondansetron HCl 4 mg 02/27/19 04:06 Zofran IVP Q6HR PRN Nausea And Vomiting Prednisone 10 mg 02/27/19 09:45 PO DAILY SELENE Intake and Output 02/26/19 02/27/19 02/27/19 22:59 06:59 14:59 Other: Weight 57.47 kg 02/27/19 00:01 02/27/19 00:01 EKG Interpretations (text) EKG shows sinus tachycardia with evidence of LVH strain pattern Assessment and Plan Plan: Assessment and plan #1 systolic congestive heart failure acute on chronic #2 end-stage renal disease on hemodialysis, failed transplant #3 history of valvular heart disease, echocardiogram with Doppler study performed in November revealed an ejection fraction of 35-40%, LA is severely dilated, mild to moderate aortic regurg, mild mitral regurgitation and moderate tricuspid regurg with moderate pulmonary hypertension. #4 hypertension, accelerated #5 asthma #6 anemia #7 nonischemic cardiomyopathy. Plan As the patient just recently had an echo performed in November we will not repeat an echo on this admission. We will resume the patient's Coreg, hydralazine, and nifedipine to optimize blood pressure control. She scheduled for dialysis today. DNP note has been reviewed, I agree with a documented findings and plan of care. Patient was seen and examined.
[2019-02-27] MEDS ORDERED: LIDOCAINE-PRILOCAINE 2.5-2.5% CREAM 5 GM TUBE TOPICAL PRN (11:00)
[2019-02-27] MEDS ORDERED: CINACALCET 30 MG TAB PO SCH (11:00)
[2019-02-27] MEDS ORDERED: ALPRAZolam 0.25 MG TAB PO PRN (11:00)
[2019-02-27] MEDS ORDERED: traZODone HCL 50 MG TAB PO PRN (11:00)
[2019-02-27] MEDS ORDERED: CALCIUM ACETATE 667 MG CAP PO PRN (11:00)
[2019-02-27] MEDS ORDERED: ACETAMINOPHEN TAB 325 MG TAB PO PRN (11:00)
[2019-02-27] MEDS ORDERED: ALBUTEROL NEBULIZED 2.5 MG/3 ML INHALATION PRN (11:00)
--- NOTE | 2019-02-27 11:38 | P.HPIM ---
History of Present Illness 28-year-old wasn't female came in with compensative shortness of breath found to have pulmonary edema. Patient does have history of incision disease doesn't make much urine does have history of nonischemic an OK with ejection fraction of 35-40%. Patient blood pressure was elevated upon admission which is not an expected of and end-stage renal disease patients. Patient was having orthopnea paroxysmal nocturnal dyspnea. Patient will undergo hemodialysis today and tomorrow. Patient is complaining of epigastric abdominal discomfort from stress related gastritis or ulcerations patient will be started on Protonix will use Zofran as well. Patient will be resumed on her home medications.patient denied any missing any hemodialysis denied noncompliance with medications but believes she may be drinking too much water at home. Review of Systems REVIEW OF SYSTEMS: CONSTITUTIONAL: No fever, no malaise, no fatigue. HEENT: No recent visual problems or hearing problems. Denied any sore throat. CARDIOVASCULAR: No chest pain, no palpitations, no syncope. PULMONARY: no hemoptysis. GASTROINTESTINAL: No diarrhea, no nausea, no vomiting, no abdominal pain. NEUROLOGICAL: No headaches, no weakness, no numbness. HEMATOLOGICAL: Denies any bleeding or petechiae. GENITOURINARY: Denies any burning micturition, frequency, or urgency. MUSCULOSKELETAL/RHEUMATOLOGICAL: Denies any joint pain, swelling, or any muscle pain. ENDOCRINE: Denies any polyuria or polydipsia. The rest of the 14-point review of systems is negative. Past Medical History Past Medical History: Asthma, Heart Failure, Hypertension, Renal Disease Additional Past Medical History / Comment(s): ESRD d/t being born with polycystic kidney disease, failed kidney transplant, hemodialysis, cardiomegally with EF 20-25%, chronic anemia, vitamin D deficiency, chronic low back pain, ovarian cysts, irregular menses, History of Any Multi-Drug Resistant Organisms: None Reported Past Surgical History: Heart Catheterization, Hernia Repair Additional Past Surgical History / Comment(s): 06/14/18 cardiac cath at [facility] to check coronary pressures, 11/15/09 Failed kidney transplant R pelvis, dialysis catheter in and out, current L upper arm AVG, supra pubic hernia repair, transvaginal mesh, wisdom teeth extraction with anesthesia. Past Anesthesia/Blood Transfusion Reactions: No Reported Reaction Additional Past Anesthesia/Blood Transfusion Reaction / Comment(s): Pt has received blood in past without reaction. Past Psychological History: Anxiety, Depression Additional Psychological History / Comment(s): Pt resides with family. She is independent. She drives. She is disabled. She states she has anxiety and depression but no suicidal thoughts/ idealations or plans. She had one suicide attempt with overdose in 2012. Smoking Status: Former smoker Past Alcohol Use History: None Reported Additional Past Alcohol Use History / Comment(s): Pt states she quit smoking in 2015. Past Drug Use History: None Reported - Past Family History Father Family Medical History: No Reported History Additional Family Medical History / Comment(s): Father is healthy and is 59 yrs old. Mother Family Medical History: No Reported History Additional Family Medical History / Comment(s): Mother is healthy and is 57 yrs old. Medications and Allergies Home Medications Medication Instructions Recorded Confirmed Type Albuterol Sulfate [Proair Hfa] 2 puff INHALATION RT-Q6H PRN 01/21/02/26/19 History Calcium Acetate [PhosLo] 1,334 mg PO ACHS PRN 05/01/18 02/26/19 History ALPRAZolam [Xanax] 0.25 mg PO HS PRN 05/28/18 02/26/19 History Budesonide/Formoterol Fumarate 2 puff INHALATION RT-Q12H 05/28/18 02/26/19 History [Symbicort 80-4.5 Mcg Inhaler] Carvedilol [Coreg] 25 mg PO BID 05/28/18 02/26/19 History Pantoprazole [Protonix] 40 mg PO DAILY 05/28/18 02/26/19 History predniSONE 10 mg PO DAILY 05/28/18 02/26/19 History Ondansetron Odt [Zofran ODT] 4 mg PO Q8HR PRN #10 tab 07/02/18 02/26/19 Rx traZODone HCL 50 mg PO HS PRN 07/29/18 02/26/19 History Acetaminophen Tab [Tylenol] 650 mg PO Q6HR PRN tab 08/29/18 02/26/19 Rx Lidocaine-Prilocaine Cream [Emla 1 applic TOPICAL DAILY PRN 11/16/18 02/26/19 History Cream 2.5%/2.5%] Sodium Polystyrene Sulfonate 30 gm PO MOTUWETHFR 11/16/18 02/26/19 History [Kayexalate] hydrALAZINE HCL [Apresoline] 100 mg PO TID 11/16/18 02/26/19 History Cinacalcet HCl [Sensipar] 60 mg PO MOWEFR 02/26/19 02/26/19 History NIFEdipine [NIFEdipine ER] 60 mg PO DAILY 02/26/19 02/26/19 History Allergies Allergy/AdvReac Type Severity Reaction Status Date / Time hydralazine AdvReac Rapid Verified 02/26/19 23:52 Heart Rate WHEN GIVEN THROUGH IV Physical Exam Vitals: Vital Signs Temp Pulse Pulse Pulse Resp BP BP 02/27/19 11:26 82 16 165/118 02/27/19 07:23 97.8 F 89 16 134/90 02/27/19 06:50 98.3 F 100 16 145/114 02/27/19 06:16 155/116 02/27/19 05:27 86 20 143/121 02/27/19 05:02 93 20 147/122 02/27/19 03:32 107 H 20 170/118 02/26/19 23:59 112 H 02/26/19 23:53 104 H 02/26/19 23:52 22 02/26/19 23:41 02/26/19 23:37 98.7 F 112 H 22 190/124 Pulse Ox 02/27/19 11:26 95 02/27/19 07:23 100 02/27/19 06:50 100 02/27/19 06:16 02/27/19 05:27 100 02/27/19 05:02 94 L 02/27/19 03:32 95 02/26/19 23:59 02/26/19 23:53 02/26/19 23:52 02/26/19 23:41 99 02/26/19 23:37 95 Intake and Output 02/26/19 02/27/19 02/27/19 22:59 06:59 14:59 Intake Total 0 Balance 0 Intake: Oral 0 Other: # Voids 0 Weight 57.47 kg 57.47 kg PHYSICAL EXAMINATION: GENERAL: The patient is alert and oriented x3, not in any acute distress. thin built female HEENT: Pupils are round and equally reacting to light. EOMI. No scleral icterus. No conjunctival pallor. Normocephalic, atraumatic. No pharyngeal erythema. No thyromegaly. CARDIOVASCULAR: S1 and S2 present. No murmurs, rubs, or gallops. PULMONARY: Chest is clear to auscultation, no wheezing or crackles. ABDOMEN: Soft, nontender, nondistended, normoactive bowel sounds. No palpable organomegaly. MUSCULOSKELETAL: No joint swelling or deformity. EXTREMITIES: No cyanosis, clubbing, or pedal edema. NEUROLOGICAL: Gross neurological examination did not reveal any focal deficits. SKIN: No rashes. Results CBC & Chem 7: 02/27/19 00:01 02/27/19 00:01 Labs: Abnormal Lab Results - Last 24 Hours (Table) 02/27/19 02/27/19 02/27/19 Range/Units 00:01 00:01 00:01 RBC 3.37 L (3.80-5.40) m/uL Hgb 9.5 L (11.4-16.0) gm/dL Hct 31.4 L (34.0-46.0) % MCHC 30.3 L (31.0-37.0) g/dL RDW 21.6 H (11.5-15.5) % Potassium 5.9 H (3.5-5.1) mmol/L BUN 65 H (7-17) mg/dL Creatinine 11.51 H* (0.52-1.04) mg/dL Magnesium 2.5 H (1.6-2.3) mg/dL Troponin I 0.087 H* (0.000-0.034) ng/mL 02/27/19 Range/Units 08:37 RBC (3.80-5.40) m/uL Hgb (11.4-16.0) gm/dL Hct (34.0-46.0) % MCHC (31.0-37.0) g/dL RDW (11.5-15.5) % Potassium (3.5-5.1) mmol/L BUN (7-17) mg/dL Creatinine (0.52-1.04) mg/dL Magnesium (1.6-2.3) mg/dL Troponin I 0.092 H* (0.000-0.034) ng/mL Thrombosis Risk Factor Assmnt - Choose All That Apply Each Factor Represents 1 point: Heart failure (<1month), Swollen legs (current) Thrombosis Risk Factor Assessment Total Risk Factor Score: 2 Thrombosis Risk Factor Assessment Level: Low Risk Assessment and Plan Plan: shortness of breath secondary to pulmonary edema related to congestive heart failure chronic systolic dysfunction with acute exacerbation along with end- stage renal disease. Patient failed a transplant in the past patient will undergo hemodialysis today and tomorrow. -End-stage renal disease hemodialysis dependent -Metabolic bone disease for which patient will be resumed on phosphate binders -History of a left heart disease and nonischemic myopathy ejection fraction of 35-40% patient does have mild to moderate aortic regurgitation as well as mild mitral regurgitation as well -Hypertension accelerated not an expected of End-stage and disease patient's patient will be resumed on her home medications ANI inhibitor will not be resumed because of hyperkalemia -Hyperkalemia secondary to end-stage and this is expected to improve with hemodialysis -Asthma without any acute exacerbation -Anemia of chronic kidney disease -DVT prophylaxis: Early ambulation, GI prophylaxis with the Protonix patient does have nausea and epigastric abdominal discomfort
[2019-02-27] MEDS: hydrALAZINE HCL 50 MG TAB PO SCH ×3 (12:45→21:04)
[2019-02-27] MEDS: SODIUM POLYSTYRENE SULFONATE 15 GM/60 ML BOTTLE PO SCH (15:42)
[2019-02-27] MEDS: PANTOPRAZOLE 40 MG TABLET PO SCH ×2 (15:46→17:09)
[2019-02-27] MEDS: CARVEDILOL 12.5 MG TAB PO SCH ×2 (15:46→17:08)
[2019-02-27] MEDS: SYMBICORT 80-4.5 MCG INHALER INHALATION SCH (19:50)
[2019-02-27] MEDS: HYDROcodone/APAP 5-325MG 1 EACH TAB PO PRN (21:09)
[2019-02-28] MEDS: PANTOPRAZOLE 40 MG TABLET PO SCH (06:20)
[2019-02-28] MEDS: CARVEDILOL 12.5 MG TAB PO SCH (06:20)
[2019-02-28] MEDS: predniSONE 10 MG TAB PO SCH (08:43)
[2019-02-28] MEDS: HYDROcodone/APAP 5-325MG 1 EACH TAB PO PRN (08:43)
[2019-02-28] MEDS: hydrALAZINE HCL 50 MG TAB PO SCH (08:43)
[2019-02-28] MEDS: SYMBICORT 80-4.5 MCG INHALER INHALATION SCH (08:53)
[2019-02-28] MEDS ORDERED: ENOXAPARIN 30 MG/0.3 ML SYRINGE SQ SCH (09:00)
--- NOTE | 2019-02-28 11:16 | P.PN ---
Subjective Patient is seen in follow-up for end-stage renal disease. She is maintained on hemodialysis on a Wednesday schedule. Currently seen was undergoing hemodialysis. She feels much better today. Hemodynamically stable. Vital signs are stable. General: The patient appeared well nourished and normally developed. HEENT: Head exam is unremarkable. Neck is without jugular venous distension. LUNGS: Lungs are clear to auscultation and percussion. Breath sounds decreased. HEART: Rate and Rhythm are regular. First and second heart sounds normal. No murmurs, rubs or gallops. ABDOMEN: Abdominal exam reveals normal bowel sounds. Non-tender and non- distended. No evidence of peritonitis. EXTREMITITES: No clubbing, cyanosis, or edema. Objective - Vital Signs Vital signs: Vital Signs Temp 97.9 F 02/28/19 08:00 Pulse 81 02/28/19 08:00 Resp 16 02/28/19 08:00 BP 125/64 02/28/19 08:00 Pulse Ox 99 02/28/19 08:00 Intake & Output 02/27/19 02/28/19 02/28/19 18:59 06:59 18:59 Intake Total 120 300 222 Balance 120 300 222 Weight 57.47 kg 52 kg Intake: Oral 120 300 222 Other: # Voids 0 - Labs CBC & Chem 7: 02/27/19 00:01 02/27/19 00:01 Labs: Abnormal Lab Results - Last 24 Hours (Table) 02/27/19 Range/Units 14:20 Troponin I 0.104 H* (0.000-0.034) ng/mL Assessment and Plan Plan: Assessment: 1. End-stage renal disease maintained on hemodialysis on a Wednesday schedule. 2. Dyspnea secondary to volume overload. Better. 3. Systolic CHF with ejection fraction of 20-25% with mild to moderate mitral regurgitation and severe pulmonary hypertension. 4. Hypertension with chronic kidney disease. Stable. 5. Hyperkalemia secondary to chronic kidney disease. Expect improvement postdialysis. 6. Chronic kidney disease mineral bone disease. 7. Status post failed kidney transplant maintained on prednisone. Plan: Currently seen while undergoing hemodialysis. Next treatment tomorrow per her outpatient schedule. Maintain prednisone upon discharge. Stable to be discharged home from nephrology standpoint after dialysis today.
[2019-02-28] MEDS: SODIUM POLYSTYRENE SULFONATE 15 GM/60 ML BOTTLE PO SCH (12:17)
--- NOTE | 2019-02-28 12:54 | P.PN ---
Subjective Progress Note Date: 02/28/19 This is a 28-year-old -[place] female with past medical history significant for end-stage renal disease, status post failed transplant, on hemodialysis, hypertension, severe pulmonary hypertension and nonischemic cardiomyopathy. Most recent cardiac echocardiogram was performed in November of this year and revealed an ejection fraction of 35-40%, LA is severely dilated, mild to moderate aortic regurgitation, moderate tricuspid regurg, moderate pulmonary hypertension. She presented to the hospital with symptoms of severe shortness of breath. According to the patient she did undergo dialysis on Wednesday, over the weekend started to become quite short of breath. Her blood pressure on arrival here 190/124 heart rate 100, blood pressure this morning 155/116 with a heart rate of 100. White blood cell count 7.5, hemoglobin 9.5, platelet count 189. Sodium 138, potassium 5.9, BUN 65 and creatinine 11.5. Magnesium 2.5. Troponin 0.087, 0.092. BNP level 121,000. Chest x-ray shows cardiomegaly with moderate pulmonary edema. EKG shows a sinus tachycardia with evidence of left ventricular hypertrophy and nonspecific ST-T changes. At the time of my examination this morning, patient is quite short of breath, she is scheduled today to undergo dialysis with the goal of 4 L ultrafiltration. 02/28/2019 Patient seen and examined this morning, she had dialysis yesterday and again this morning, feeling significantly better overall. Blood pressure 124/64 with a heart rate of 80, 99% on room air. No lab data today. Objective - Vital Signs Vital signs: Vital Signs Temp 97.9 F 02/28/19 08:00 Pulse 81 02/28/19 08:00 Resp 16 02/28/19 08:00 BP 125/64 02/28/19 08:00 Pulse Ox 99 02/28/19 08:00 Intake & Output 02/27/19 02/28/19 02/28/19 18:59 06:59 18:59 Intake Total 120 300 222 Output Total 300 Balance 120 300 -78 Weight 57.47 kg 52 kg Intake: Oral 120 300 222 Output: Urine 300 Other: # Voids 0 - Exam PHYSICAL EXAMINATION: GENERAL: 28-year-old -[place] female in no acute distress at the time of my examination HEENT: Head is atraumatic, normocephalic. Pupils equal, round. Sclera anicteric. Conjunctiva are clear. Mucous membranes of the mouth are moist. Neck is supple. There is elevated jugular venous pressure. No carotid bruit is heard. HEART EXAMINATION: Heart S1 and S2 systolic ejection murmur is heard at the base and apex. Parasternal heave noted CHEST EXAMINATION: Lungs clear to auscultation. ABDOMEN: Soft, nontender. Bowel sounds are heard. No organomegaly noted. EXTREMITIES: 2+ peripheral pulses with no evidence of peripheral edema and no calf tenderness noted. NEUROLOGIC patient is awake, alert and oriented 3 . - Labs CBC & Chem 7: 02/27/19 00:01 02/27/19 00:01 Labs: Abnormal Lab Results - Last 24 Hours (Table) 02/27/19 Range/Units 14:20 Troponin I 0.104 H* (0.000-0.034) ng/mL Assessment and Plan Plan: Assessment and plan #1 systolic congestive heart failure acute on chronic #2 end-stage renal disease on hemodialysis, failed transplant #3 history of valvular heart disease, echocardiogram with Doppler study performed in November revealed an ejection fraction of 35-40%, LA is severely dilated, mild to moderate aortic regurg, mild mitral regurgitation and moderate tricuspid regurg with moderate pulmonary hypertension. #4 hypertension, accelerated #5 asthma #6 anemia #7 nonischemic cardiomyopathy. Plan From cardiology's perspective, we would recommend patient be discharged once cleared by primary and nephrology's perspective. DNP note has been reviewed, I agree with a documented findings and plan of care. Patient was seen and examined.
[2019-02-28 13:24] VITALS: BP 138/86; PULSE 78; RESP 16; TEMP 98.4
--- NOTE | 2019-02-28 18:54 | P.DS ---
Providers Date of admission: 02/27/19 02:35 Expected date of discharge: 02/28/19 Attending physician: Agnieszka Travis Consults: 02/27/19 02:33 Consult Physician Routine Consulting Provider: Robin Thompson Consult Reason/Comments: renalFail Do you want consulting provider notified?: Yes Consult Physician Routine Consulting Provider: Misti Mast Consult Reason/Comments: chf Do you want consulting provider notified?: Yes Primary care physician: Nestor Hernandez [facility] Course: Final Diagnosis Shortness of breath secondary to pulmonary edema related to congestive heart failure, chronic dysfunction with acute exacerbation along with end stage renal disease. 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 Currently on hemodialysis Wed/Wed/Wed at [facility] in [place]. End stage renal disease. Hemodialysis dependent. Patient received dialysis yesterday and again today. Metabolic bone disease for which patient will be resumed on phosphate binders History of left heart disease and non-ischemic myopathy. Ejection fraction 35- 40% on an echo done in November of this year. Patient does have mild to moderate mitral regurgitation as well. Hypertension: expected of ESRD. Patient will be resumed on her home medications. Khanh inhibitor will be discontinued because of the hyperkalemia Hyperkalemia secondary to end-stage and is expected to improve with hemodialysis Asthma without any acute exacerbation Anemia of chronic kidney disease DVT prophylaxis: Early ambulation, GI prophylaxis with protonix. Nausea and epigastric abdominal discomfort: resolved Discharge disposition: Patient is being discharged in a stable condition with a guarded prognosis to home and will continue hemodialysis as scheduled on Wed/Wed/Fridays. Patient is scheduled again tomorrow. History of present illness This is a 28 year old female that was admitted for shortness of breath. Patient received hemodialysis yesterday and again today and states that she feels much better. Patient is scheduled for Dialysis at [facility] in [place] tomorrow. Patient denies missing any dialysis visits. Patient denies any chest pain, shortness of breath, or palpitations at this time. Patient denies any nausea or vomiting. Patient is tolerating diet but taking it slowly she states as she doesn't have much of an appetite yet. Patient is afebrile. Patient states that she is ready to go home. Nephrology and cardiology have cleared her from their standpoint. On exam, vitals are stable. BP is 138/79, pulse is 73, temp is 98.4 F, resp are 18 and non-labored, oxygen saturation is 98% on room air. Cardio S1 and S2 are normal. Respiratory system is clear to auscultation. Abdomen is soft with mild tenderness upon palpation. Nervous system shows no focal deficits and gait is steady. Please refer to the medication reconciliation sheet for a list of medications. Patient Condition at Discharge: Stable Plan - Discharge Summary Discharge Rx Participant: No New Discharge Prescriptions: Continue Albuterol Sulfate [Proair Hfa] 2 puff INHALATION RT-Q6H PRN PRN Reason: Shortness Of Breath Calcium Acetate [PhosLo] 1,334 mg PO ACHS PRN PRN Reason: MEALS & SNACK ALPRAZolam [Xanax] 0.25 mg PO HS PRN PRN Reason: Insomnia predniSONE 10 mg PO DAILY Pantoprazole [Protonix] 40 mg PO DAILY Carvedilol [Coreg] 25 mg PO BID Budesonide/Formoterol Fumarate [Symbicort 80-4.5 Mcg Inhaler] 2 puff INHALATION RT-Q12H Ondansetron Odt [Zofran ODT] 4 mg PO Q8HR PRN #10 tab PRN Reason: Nausea traZODone HCL 50 mg PO HS PRN PRN Reason: Insomnia Acetaminophen Tab [Tylenol] 650 mg PO Q6HR PRN tab PRN Reason: Mild Pain Or Fever > 100.5 hydrALAZINE HCL [Apresoline] 100 mg PO TID Lidocaine-Prilocaine Cream [Emla Cream 2.5%/2.5%] 1 applic TOPICAL DAILY PRN PRN Reason: DIALYSIS Sodium Polystyrene Sulfonate [Kayexalate] 30 gm PO MOTUWETHFR NIFEdipine [NIFEdipine ER] 60 mg PO DAILY Cinacalcet HCl [Sensipar] 60 mg PO MOWEFR Discharge Medication List Albuterol Sulfate [Proair Hfa] 2 puff INHALATION RT-Q6H PRN 01/22/16 [History] Calcium Acetate [PhosLo] 1,334 mg PO ACHS PRN 05/01/18 [History] ALPRAZolam [Xanax] 0.25 mg PO HS PRN 05/28/18 [History] Budesonide/Formoterol Fumarate [Symbicort 80-4.5 Mcg Inhaler] 2 puff INHALATION RT-Q12H 05/28/18 [History] Carvedilol [Coreg] 25 mg PO BID 05/28/18 [History] Pantoprazole [Protonix] 40 mg PO DAILY 05/28/18 [History] predniSONE 10 mg PO DAILY 05/28/18 [History] Ondansetron Odt [Zofran ODT] 4 mg PO Q8HR PRN #10 tab 07/02/18 [Rx] traZODone HCL 50 mg PO HS PRN 07/29/18 [History] Acetaminophen Tab [Tylenol] 650 mg PO Q6HR PRN tab 08/29/18 [Rx] Lidocaine-Prilocaine Cream [Emla Cream 2.5%/2.5%] 1 applic TOPICAL DAILY PRN 11/16/18 [History] Sodium Polystyrene Sulfonate [Kayexalate] 30 gm PO MOTUWETHFR 11/16/18 [History] hydrALAZINE HCL [Apresoline] 100 mg PO TID 11/16/18 [History] Cinacalcet HCl [Sensipar] 60 mg PO MOWEFR 02/26/19 [History] NIFEdipine [NIFEdipine ER] 60 mg PO DAILY 02/26/19 [History] Follow up Appointment(s)/Referral(s): Mary Baez MD [Primary Care Provider] - 03/02/19 9:00 am (KAROLYN Roland) Robin Thompson DO [STAFF PHYSICIAN] - 04/12/19 11:20 am Patient Instructions/Handouts: Heart Failure (DC), Dialysis Diet (DC) Activity/Diet/Wound Care/Special Instructions: Activity limited until follow-up continue renal diet and advance as tolerated Continue dialysis at [facility] on Wed/Wed/Wednesday as previously scheduled Follow up with Dr. Thompson in one week Discharge Disposition: HOME SELF-CARE
== END 2019-02-28 14:57 | disposition home or self-care (01) | DRG 291 ==
LOC: EC 23:21 → 3SCARD 02-27 02:35
PROVIDERS: ADMIT Hospitalist; ATTEND Hospitalist
PROC: 5A1D70Z Performance of Urinary Filtration, Intermittent, Less than 6 Hours Per Day (ICD-10-PCS; principal; 2019-02-27)
DX: I13.2 Hypertensive heart and chronic kidney disease with heart failure and with stage 5 chronic kidney disease, or end stage renal disease (principal); I50.23 Acute on chronic systolic (congestive) heart failure; N18.6 End stage renal disease; T86.12 Kidney transplant failure; N17.9 Acute kidney failure, unspecified; Q61.3 Polycystic kidney, unspecified; Z99.2 Dependence on renal dialysis; Z87.891 Personal history of nicotine dependence; D63.1 Anemia in chronic kidney disease; E87.5 Hyperkalemia; E88.89 Other specified metabolic disorders; F32.9 Major depressive disorder, single episode, unspecified; F41.9 Anxiety disorder, unspecified; I08.3 Combined rheumatic disorders of mitral, aortic and tricuspid valves; I27.20 Pulmonary hypertension, unspecified; I42.9 Cardiomyopathy, unspecified; J45.909 Unspecified asthma, uncomplicated; K29.70 Gastritis, unspecified, without bleeding; M89.8X9 Other specified disorders of bone, unspecified site; Z91.5 Personal history of self-harm; Z79.51 Long term (current) use of inhaled steroids; Z79.52 Long term (current) use of systemic steroids; Z79.899 Other long term (current) drug therapy; E55.9 Vitamin D deficiency, unspecified; Z88.8 Allergy status to other drugs, medicaments and biological substances; G89.29 Other chronic pain; M54.5 Low back pain
CPT/HCPCS: 36415; 71046; 80053; 83735; 83880; 84484; 85025; 85610; 85730; 90935; 93005; 94640; 96374; 96375; 99285

== ENCOUNTER 2019-04-19 05:58 | Inpatient (IN) | payer BC, MEDICARE, OTHER ==
[2019-04-19] MEDS ORDERED: SODIUM CHLORIDE 0.9% 1,000 ML IV STA (06:49)
--- NOTE | 2019-04-19 06:57 | ED ---
Abdominal Pain HPI - General Chief Complaint: Abdominal Pain Stated Complaint: Abdominal Pain, nausea Time Seen by Provider: 04/19/19 06:33 Source: patient, RN notes reviewed, old records reviewed Mode of arrival: ambulatory Limitations: no limitations - History of Present Illness Initial Comments: Patient is a 28-year-old female with a history of end-stage renal disease, currently on dialysis Wednesdays and Fridays. She presents today with co ncerns for right lower quadrant abdominal pain, states that she could possibly be . Her last menstrual period was 12 days ago. Patient states that she's had some pain over previous incision site in the right lower quadrant. Patient states she had normal stool today. She does not produce urine. Patient states that she has had no known fevers or chills or vomiting. - Related Data Home Medications Medication Instructions Recorded Confirmed Albuterol Sulfate [Proair Hfa] 2 puff INHALATION RT-Q6H PRN 01/22/16 04/19/19 Calcium Acetate [PhosLo] 1,334 mg PO ACHS PRN 05/01/18 04/19/19 Budesonide/Formoterol Fumarate 2 puff INHALATION RT-Q12H 05/28/18 04/19/19 [Symbicort 80-4.5 Mcg Inhaler] Carvedilol [Coreg] 25 mg PO BID 05/28/18 04/19/19 predniSONE 10 mg PO DAILY 05/28/18 04/19/19 hydrALAZINE HCL [Apresoline] 100 mg PO TID 11/16/18 04/19/19 Cinacalcet HCl [Sensipar] 60 mg PO TUTHSA 02/26/19 04/19/19 Allergies Allergy/AdvReac Type Severity Reaction Status Date / Time hydralazine AdvReac Rapid Verified 04/19/19 07:30 Heart Rate WHEN GIVEN THROUGH IV Review of Systems ROS Statement: Those systems with pertinent positive or pertinent negative responses have been documented in the HPI. ROS Other: All systems not noted in ROS Statement are negative. Past Medical History Past Medical History: Asthma, Heart Failure, Hypertension, Renal Disease Additional Past Medical History / Comment(s): ESRD d/t being born with polycystic kidney disease, failed kidney transplant, hemodialysis, cardiomegally with EF 20-25%, chronic anemia, vitamin D deficiency, chronic low back pain, ovarian cysts, irregular menses, History of Any Multi-Drug Resistant Organisms: None Reported Past Surgical History: Heart Catheterization, Hernia Repair Additional Past Surgical History / Comment(s): 06/14/18 cardiac cath at [facility] [place] to check coronary pressures, 11/15/09 Failed kidney transplant R pelvis, dialysis catheter in and out, current L upper arm AVG, supra pubic hernia repair, transvaginal mesh, wisdom teeth extraction with anesthesia. Past Anesthesia/Blood Transfusion Reactions: No Reported Reaction Additional Past Anesthesia/Blood Transfusion Reaction / Comment(s): Pt has received blood in past without reaction. Past Psychological History: Anxiety, Depression Smoking Status: Former smoker Past Alcohol Use History: None Reported Past Drug Use History: None Reported - Past Family History Father Family Medical History: No Reported History Additional Family Medical History / Comment(s): Father is healthy and is 59 yrs old. Mother Family Medical History: No Reported History Additional Family Medical History / Comment(s): Mother is healthy and is 57 yrs old. General Exam - General Exam Comments Initial Comments: 28-year-old female. Alert and oriented 3. Patient appears in no significant distress. Limitations: no limitations General appearance: alert, in no apparent distress Head exam: Present: atraumatic, normocephalic, normal inspection Eye exam: Present: normal appearance, PERRL, EOMI. Absent: scleral icterus, conjunctival injection, periorbital swelling ENT exam: Present: normal exam, mucous membranes moist Neck exam: Present: normal inspection. Absent: tenderness, meningismus, lymphadenopathy Respiratory exam: Present: normal lung sounds bilaterally. Absent: respiratory distress, wheezes, rales, rhonchi, stridor Cardiovascular Exam: Present: regular rate, normal rhythm, normal heart sounds. Absent: systolic murmur, diastolic murmur, rubs, gallop, clicks GI/Abdominal exam: Present: soft, tenderness (RLQ tenderness, chest scar from her renal transplant. She has some firmness over the scar. No rebound tenderness. No erythema at the skin.), normal bowel sounds. Absent: distended, guarding, rebound, rigid Extremities exam: Present: normal inspection, full ROM, normal capillary refill. Absent: tenderness, pedal edema, joint swelling, calf tenderness Back exam: Present: normal inspection Neurological exam: Present: alert, oriented X3, CN II-XII intact Psychiatric exam: Present: normal affect, normal mood Skin exam: Present: warm, dry, intact, normal color. Absent: rash Course Vital Signs 04/19/19 04/19/19 04/19/19 06:08 09:43 09:44 Temperature 98.1 F 98.9 F Pulse Rate 92 83 84 Respiratory 18 18 Rate Blood Pressure 152/95 152/110 O2 Sat by Pulse 100 100 Oximetry 04/19/19 09:55 Temperature Pulse Rate 83 Respiratory Rate Blood Pressure O2 Sat by Pulse Oximetry Medical Decision Making - Medical Decision Making 28-year-old female presents today with she will a right-sided abdominal pain. Worse over the past few days. Patient has no other symptoms, denies any fever. She is due for dialysis today. This time Patient was found to be hyperkalemic at 6.2. She states she was postictal have dialysis today. She denies any significant symptoms related to the hyperkalemia including any chest pains palpitations. At this time her EKG does show peaked T waves. She was initiated on albuterol, insulin, Kayexalate and calcium. Patient continued to have right-sided jaw pain. She had really denied any vaginal bleeding or concern for STDs. Patient CT and also completed without contrast and this showed atrophic kidney some evidence of enteritis are possible related to her disease process and it in the car. Patient was informed his results. No other symptoms related to her pain I do believe this is just post surgical pain and from her failed renal transplant. We discussed this with Dr. Thompson who is aware of the Patient needs to have dialysis today. Patient was started on IV fluids can have a bland diet. - Lab Data Result diagrams: 04/19/19 07:11 04/19/19 07:11 Lab Results 04/19/19 04/19/19 04/19/19 Range/Units 07:11 07:11 07:11 WBC 6.2 (3.8-10.6) k/uL RBC 3.19 L (3.80-5.40) m/uL Hgb 9.7 L (11.4-16.0) gm/dL Hct 29.9 L (34.0-46.0) % MCV 93.6 (80.0-100.0) fL MCH 30.2 (25.0-35.0) pg MCHC 32.3 (31.0-37.0) g/dL RDW 20.6 H (11.5-15.5) % Plt Count 226 (150-450) k/uL Neutrophils % 78 % Lymphocytes % 13 % Monocytes % 4 % Eosinophils % 3 % Basophils % 1 % Neutrophils # 4.8 (1.3-7.7) k/uL Lymphocytes # 0.8 L (1.0-4.8) k/uL Monocytes # 0.3 (0-1.0) k/uL Eosinophils # 0.2 (0-0.7) k/uL Basophils # 0.0 (0-0.2) k/uL Hypochromasia Slight Anisocytosis Moderate Macrocytosis Slight PT 11.1 (9.0-12.0) sec INR 1.0 (<1.2) APTT 25.0 (22.0-30.0) sec Sodium 136 L (137-145) mmol/L Potassium 6.2 H* (3.5-5.1) mmol/L Chloride 96 L (98-107) mmol/L Carbon Dioxide 31 H (22-30) mmol/L Anion Gap 9 mmol/L BUN 59 H (7-17) mg/dL Creatinine 8.78 H* (0.52-1.04) mg/dL Est GFR (CKD-EPI)AfAm 7 (>60 ml/min/1.73 sqM) Est GFR (CKD-EPI)NonAf 6 (>60 ml/min/1.73 sqM) Glucose 91 (74-99) mg/dL Calcium 8.8 (8.4-10.2) mg/dL Total Bilirubin 0.7 (0.2-1.3) mg/dL AST 28 (14-36) U/L ALT 37 (9-52) U/L Alkaline Phosphatase 51 (38-126) U/L Total Protein 6.3 (6.3-8.2) g/dL Albumin 3.4 L (3.5-5.0) g/dL Amylase 93 (30-110) U/L Lipase 112 (23-300) U/L HCG, Quant mIU/mL 04/19/19 Range/Units 07:11 WBC (3.8-10.6) k/uL RBC (3.80-5.40) m/uL Hgb (11.4-16.0) gm/dL Hct (34.0-46.0) % MCV (80.0-100.0) fL MCH (25.0-35.0) pg MCHC (31.0-37.0) g/dL RDW (11.5-15.5) % Plt Count (150-450) k/uL Neutrophils % % Lymphocytes % % Monocytes % % Eosinophils % % Basophils % % Neutrophils # (1.3-7.7) k/uL Lymphocytes # (1.0-4.8) k/uL Monocytes # (0-1.0) k/uL Eosinophils # (0-0.7) k/uL Basophils # (0-0.2) k/uL Hypochromasia Anisocytosis Macrocytosis PT (9.0-12.0) sec INR (<1.2) APTT (22.0-30.0) sec Sodium (137-145) mmol/L Potassium (3.5-5.1) mmol/L Chloride (98-107) mmol/L Carbon Dioxide (22-30) mmol/L Anion Gap mmol/L BUN (7-17) mg/dL Creatinine (0.52-1.04) mg/dL Est GFR (CKD-EPI)AfAm (>60 ml/min/1.73 sqM) Est GFR (CKD-EPI)NonAf (>60 ml/min/1.73 sqM) Glucose (74-99) mg/dL Calcium (8.4-10.2) mg/dL Total Bilirubin (0.2-1.3) mg/dL AST (14-36) U/L ALT (9-52) U/L Alkaline Phosphatase (38-126) U/L Total Protein (6.3-8.2) g/dL Albumin (3.5-5.0) g/dL Amylase (30-110) U/L Lipase (23-300) U/L HCG, Quant <2.4 mIU/mL 04/19/19 08:46 EKG performed at 8:25 AM shows sinus rhythm with first or AV block. Left atrial enlargement. Left ventricular urgency. She would really consider lateral ischemia. Ventricular rate of 85 bpm. Intervals 214 ms. Frustration is 92 ms. QT QTc is 416/4 and 95 ms. - Radiology Data Radiology results: report reviewed Total diminished size of the right anterior pelvic renal transplant consider sent with transplant failure. Persistent without foreign body in the medial fragment. Suboptimal study without enteric contrast. Diffuse enteritis assault present be the products of underlying chronic medical renal disease. Increasing hepatomegaly is noted. Cardiomegaly is redemonstrated. Mild diffuse soft tissue answer car and diffuse abdominal ascites on current study. No obstruction. Disposition Clinical Impression: Hyperkalemia, Right sided abdominal pain, Anasarca Disposition: ADMITTED IP TO THIS HOSP Condition: Stable Is patient prescribed a controlled substance at d/c from ED?: No Referrals: Mary Baez MD [Primary Care Provider] - 1-2 days Time of Disposition: 11:42
[2019-04-19 07:33] LABS: Anisocytosis Moderate; Basophils % (A) 1 %; Eosinophils # (A) 0.2 k/uL (0-0.7); Eosinophils % (A) 3 %; HCT 29.9 % (34.0-46.0); HGB 9.7 gm/dL (11.4-16.0); Hypochromasia Slight; Lymphocytes # (A) 0.8 k/uL (1.0-4.8); Lymphocytes % (A) 13 %; MCH 30.2 pg (25.0-35.0); MCHC 32.3 g/dL (31.0-37.0); MCV 93.6 fL (80.0-100.0); Macrocytosis Slight; Mean Platelet Volume 7.5; Monocytes # (A) 0.3 k/uL (0-1.0); Monocytes % (A) 4 %; Neutrophils # (A) 4.8 k/uL (1.3-7.7); Neutrophils % (A) 78 %; Platelet Count 226 k/uL (150-450); RBC 3.19 m/uL (3.80-5.40); RDW 20.6 % (11.5-15.5); WBC 6.2 k/uL (3.8-10.6)
[2019-04-19 07:34] LABS: Prothrombin Time 11.1 sec (9.0-12.0)
[2019-04-19 07:36] LABS: Albumin 3.4 g/dL (3.5-5.0); Calcium 8.8 mg/dL (8.4-10.2); Total Bilirubin 0.7 mg/dL (0.2-1.3); Total Protein 6.3 g/dL (6.3-8.2)
[2019-04-19 07:46] LABS: Potassium 6.2 mmol/L (3.5-5.1)
[2019-04-19] MEDS ORDERED: SODIUM POLYSTYRENE SULFONATE 15 GM/60 ML BOTTLE PO STA (08:29)
[2019-04-19] MEDS ORDERED: ALBUTEROL NEB (CONC) 2.5 MG/0.5 ML INHALATION ONE (08:44)
[2019-04-19] MEDS ORDERED: INSULIN REGULAR 100 UNIT/ML VIAL IV ONE (08:44)
[2019-04-19] MEDS ORDERED: DEXTROSE 10 % IN WATER 250 ML IV ONE (08:44)
--- NOTE | 2019-04-19 08:54 | XR ---
EXAMINATION TYPE: XR KUB DATE OF EXAM: 04/19/2019 COMPARISON: 09/27/2016 INDICATION: Abdomen pain TECHNIQUE: Single view abdomen upright view FINDINGS: There is a normal bowel gas pattern. Psoas margins are normal. No organomegaly is present. There is a linear metallic foreign body in the right lower quadrant of the pelvis present previously. IMPRESSION: 1. Unremarkable Abdomen
[2019-04-19] MEDS ORDERED: MORPHINE SULFATE 2 MG/ML SYRINGE IVP ONE (09:47)
[2019-04-19] MEDS ORDERED: CALCIUM GLUCONATE 1 GM in SODIUM CHLORIDE 0.9% 100 ML IVPB ONE (10:15)
--- NOTE | 2019-04-19 10:58 | CT ---
EXAMINATION TYPE: CT abdomen pelvis wo con DATE OF EXAM: 04/19/2019 HISTORY: Pelvic pain with nausea. CT DLP: 349.9 mGycm. Automated Exposure Control for Dose Reduction was Utilized. TECHNIQUE: CT scan of the abdomen and pelvis is performed without oral or IV contrast. COMPARISON: CT abdomen and pelvis September 27, 2016 FINDINGS: Within the limitations of a non-contrast study, the following observations are made. LUNG BASES: Cardiomegaly with small pericardial effusion is seen. LIVER/GB: There is ascites anterior superior to the liver. Hepatomegaly is present. Additional ascite s is seen along the inferior right lateral aspect of liver. Some perihepatic ascites was present on 2 017 study. PANCREAS: No significant abnormality is seen. SPLEEN: No significant abnormality is seen. ADRENALS: No significant abnormality is seen. KIDNEYS: End-stage atrophy to right kidney. Poor visualization of left kidney. Suspect failed renal t ransplant anterior right pelvis axial image 96 with diminished size of this structure versus prior CT .. New vertical metallic density coronal image 31 could reflect a fractured needle fragment. Anterior to this there are dystrophic calcifications. Present which were present on prior study. Metallic ney ear density or needle fragment was also present on prior study. BOWEL: Areas of mild to moderate abnormal wall thickening throughout bowel loops. No suspicious small or large bowel dilatation. Suboptimal evaluation of bowel without enteric contrast GENITAL ORGANS: Heterogeneous anteverted uterus extends to left of midline.. LYMPH NODES: No greater than 1cm abdominal or pelvic lymph nodes are clearly appreciated. Suboptimal evaluation without enteric and IV contrast noted. OSSEOUS STRUCTURES: Transitional type L5 vertebra redemonstrated. OTHER: Mild diffuse soft tissue anasarca. Small amount of scattered abdominal and pelvic ascites. IMPRESSION: Interval diminished size or atrophy to the right anterior pelvic renal transplant consist ent with transplant failure. Persistent metallic foreign body or needle fragment along the inferior a spect of transplant. Suboptimal study without enteric contrast. Diffuse enteritis is felt present but may be products of underlying chronic medical renal disease. Increasing hepatomegaly is noted. Cardi omegaly is redemonstrated. Mild diffuse soft tissue anasarca and diffuse abdominal ascites on current study. No bowel obstruction.
[2019-04-19] MEDS ORDERED: ACETAMINOPHEN TAB 325 MG TAB PO PRN (11:43)
[2019-04-19] MEDS ORDERED: IBUPROFEN 400 MG TAB PO PRN (11:43)
[2019-04-19] MEDS ORDERED: NALOXONE 0.4 MG/ML 1 ML VIAL IV PRN (11:43)
[2019-04-19] MEDS ORDERED: CALCIUM ACETATE 667 MG CAP PO PRN (14:04)
[2019-04-19] MEDS: hydrALAZINE HCL 50 MG TAB PO SCH ×2 (14:25→22:02)
[2019-04-19] MEDS: CARVEDILOL 12.5 MG TAB PO SCH (14:25)
--- NOTE | 2019-04-19 14:39 | P.NPCON ---
History of Present Illness - Reason for Consult end stage renal disease - History of Present Illness Reason for consultation: End-stage renal disease History of present illness: Patient is a 28-year-old female seen in renal consultation for end-stage renal disease. Patient was seen and examined in the emergency room. She is maintained on hemodialysis on a Wednesday schedule. Patient pre sented to the hospital due to abdominal pain. Patient states the pain is mostly in the lower abdomen and is sharp. Patient underwent CAT scan of the abdomen and pelvis which revealed mild soft tissue anasarca and diffuse abdominal ascites. No evidence of bowel obstruction was noted. She denies any vomiting or diarrhea. Patient has history of failed renal transplant. She is maintained on prednisone 10 mg daily. Potassium was high at 6.2 which was medically treated with IV insulin and D50, nebulized albuterol, Kayexalate and IV insulin. She does have Kayexalate at home but does not like to take it. She scheduled to undergo hemodialysis today. Denies any fever or chills. Vital signs are stable. General: The patient appeared well nourished and normally developed. HEENT: Head exam is unremarkable. Neck is without jugular venous distension. LUNGS: Lungs are clear to auscultation and percussion. Breath sounds decreased. HEART: Rate and Rhythm are regular. First and second heart sounds normal. No murmurs, rubs or gallops. ABDOMEN: Soft. Bowel sounds present. Tender to touch in the lower abdomen. No rebound tenderness. EXTREMITITES: No clubbing, cyanosis, or edema. Past Medical History Past Medical History: Asthma, Heart Failure, Hypertension, Renal Disease Additional Past Medical History / Comment(s): ESRD d/t being born with polycystic kidney disease, failed kidney transplant, hemodialysis, metabolic jane ne disease, chronic anemia, nonischemic myopathy with EF 35-40%/mild to moderate mitral valve regurgitation, vitamin D deficiency, chronic low back pain, ovarian cysts, irregular menses, History of Any Multi-Drug Resistant Organisms: None Reported Past Surgical History: Heart Catheterization, Hernia Repair Additional Past Surgical History / Comment(s): 06/14/18 cardiac cath at [facility] to check coronary pressures, 11/15/09 Failed kidney transplant R pelvis, dialysis catheter in and out, current L upper arm AVG, supra pubic hernia repair, transvaginal mesh, wisdom teeth extraction with anesthesia. Past Anesthesia/Blood Transfusion Reactions: No Reported Reaction Additional Past Anesthesia/Blood Transfusion Reaction / Comment(s): Pt has received blood in past without reaction. Smoking Status: Former smoker - Past Family History Father Family Medical History: No Reported History Additional Family Medical History / Comment(s): Father is healthy and is 62 yrs old. Mother Family Medical History: No Reported History Additional Family Medical History / Comment(s): Mother is healthy and is 60 yrs old. Medications and Allergies Home Medications Medication Instructions Recorded Confirmed Type Albuterol Sulfate [Proair Hfa] 2 puff INHALATION RT-Q6H PRN 01/22/16 04/19/19 History Calcium Acetate [PhosLo] 1,334 mg PO ACHS PRN 05/01/18 04/19/19 History Budesonide/Formoterol Fumarate 2 puff INHALATION RT-Q12H 05/28/18 04/19/19 History [Symbicort 80-4.5 Mcg Inhaler] Carvedilol [Coreg] 25 mg PO BID 05/28/18 04/19/19 History predniSONE 10 mg PO DAILY 05/28/18 04/19/19 History hydrALAZINE HCL [Apresoline] 100 mg PO TID 11/16/18 04/19/19 History Cinacalcet HCl [Sensipar] 60 mg PO TUTHSA 02/26/19 04/19/19 History Allergies Allergy/AdvReac Type Severity Reaction Status Date / Time hydralazine AdvReac Rapid Verified 04/19/19 07:30 Heart Rate WHEN GIVEN THROUGH IV Physical Exam Vitals: Vital Signs Temp Pulse Resp BP Pulse Ox 04/19/19 12:23 78 18 142/95 95 04/19/19 09:55 83 04/19/19 09:44 98.9 F 84 18 152/110 100 04/19/19 09:43 83 04/19/19 06:08 98.1 F 92 18 152/95 100 Intake and Output 04/18/19 04/19/19 04/19/19 22:59 06:59 14:59 Other: Weight 56.699 kg Results - Lab Results Most recent lab results Calcium 8.8 mg/dL (8.4-10.2) 04/19/19 07:11 04/19/19 07:11 04/19/19 07:11 Assessment and Plan Plan: Assessment: 1. End-stage renal disease maintained on hemodialysis on Wednesday schedule. 2. History of failed renal transplant. Currently maintained on prednisone 10 mg daily. 3. Abdominal pain. Mostly in the mid and right lower quadrant. No acute abnormalities noted on CAT scan. ?etiology. 4. Hypertension with chronic kidney disease. Worsened due to pain. 5. Chronic hyperkalemia. Patient is maintained on Kayexalate outpatient but does not like to take it. The risks of hyperkalemia have been discussed with the patient numerous times outpatient. 6. 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 7. Ascites. 8. Chronic systolic CHF with ejection fraction of 35-40% with moderate tricuspid regurgitation and pulmonary hypertension. Plan: Hemodialysis today with goal 3-4 L ultrafiltration. Low potassium diet. Discontinue Motrin. Maintain prednisone. Thank you for the consultation. I will continue to follow the patient with you during her hospital stay.
[2019-04-19] MEDS: SODIUM CHLORIDE 0.9% 1,000 ML IV SCH (16:43)
[2019-04-19] MEDS: HYDROmorphone 0.5 MG/0.5 ML SYRINGE IVP PRN ×3 (16:53→23:43)
[2019-04-19] MEDS: ALBUTEROL NEBULIZED 2.5 MG/3 ML INHALATION PRN (18:00)
[2019-04-19] MEDS: SYMBICORT 80-4.5 MCG INHALER INHALATION SCH (18:02)
[2019-04-19] MEDS: ONDANSETRON 4 MG/2 ML VIAL IVP PRN (22:02)
--- NOTE | 2019-04-19 23:00 | P.HPIM ---
History of Present Illness H&P Date: 04/19/19 Chief Complaint: Abdominal pain Patient is to 8 old female with a known history of ESRD due to polycystic kidney disease, failed renal transplant. Currently on hemodialysis and nonischemic cardiomyopathy ejection fraction 35-40% and valvular heart disease, asthma and other multiple medical problems came to ER with complaints of right lower quadrant abdominal pain. CT abdomen Showed mild soft tissue anasarca and diffuse abdominal ascites. No evidence of bowel obstruction was noted. Patient does have enteritis-like picture likely due to medical illnesses. Otherwise patient denied any chest pain or shortness of breath. He does have nausea. No diarrhea or constipation. Patient does not make urine. Denied dark color stool or diarrhea.Potassium was high at 6.2 which was medically treated with IV insulin and D50, nebulized albuterol, Kayexalate and IV insulin. She does have Kayexalate at home but does not like to take it. She scheduled to undergo hemodialysis today. Denies any fever or chills. Patient did have full dialysis on Wednesday. Denied any missed dialysis. EKG showed sinus rhythm. Review of Systems Constitutional: Patient denies any fever or chills . No generalized weakness or weight loss. Abdomen: Patient does have nausea. No episodes of vomiting. Abdominal pain mainly right lower quadrant. Cardiovascular: Patient denies any chest pain or short of breath no palpitations. Respiratory: patient denied any cough is from production. No shortness of breath Neurologic: Patient denied any numbness or tingling headache. Musculoskeletal: Patient denies any complaints of joint swelling or deformity. Skin: Negative Psychiatric: Negative Endocrine: No heat or cold intolerance. No recent weight gain. Genitourinary: No dysuria or hematuria. All other 14 point ROS negative except the aboves Past Medical History Past Medical History: Asthma, Heart Failure, Hypertension, Renal Disease Additional Past Medical History / Comment(s): ESRD d/t being born with polycystic kidney disease, failed kidney transplant, hemodialysis, metabolic bone disease, chronic anemia, nonischemic myopathy with EF 35-40%/mild to moderate mitral valve regurgitation, vitamin D deficiency, chronic low back pain, ovarian cysts, irregular menses, History of Any Multi-Drug Resistant Organisms: None Reported Past Surgical History: Heart Catheterization, Hernia Repair Additional Past Surgical History / Comment(s): 06/14/18 cardiac cath at [facility] to check coronary pressures, 11/15/09 Failed kidney transplant R pelvis, dialysis catheter in and out, current L upper arm AVG, supra pubic hernia repair, transvaginal mesh, wisdom teeth extraction with anesthesia. Past Anesthesia/Blood Transfusion Reactions: No Reported Reaction Additional Past Anesthesia/Blood Transfusion Reaction / Comment(s): Pt has received blood in past without reaction. Smoking Status: Former smoker - Past Family History Father Family Medical History: No Reported History Additional Family Medical History / Comment(s): Father is healthy and is 62 yrs old. Mother Family Medical History: No Reported History Additional Family Medical History / Comment(s): Mother is healthy and is 60 yrs old. Medications and Allergies Home Medications Medication Instructions Recorded Confirmed Type Albuterol Sulfate [Proair Hfa] 2 puff INHALATION RT-Q6H PRN 01/22/16 04/19/19 History Calcium Acetate [PhosLo] 1,334 mg PO ACHS PRN 05/01/18 04/19/19 History Budesonide/Formoterol Fumarate 2 puff INHALATION RT-Q12H 05/28/18 04/19/19 History [Symbicort 80-4.5 Mcg Inhaler] Carvedilol [Coreg] 25 mg PO BID 05/28/18 04/19/19 History predniSONE 10 mg PO DAILY 05/28/18 04/19/19 History hydrALAZINE HCL [Apresoline] 100 mg PO TID 11/16/18 04/19/19 History Cinacalcet HCl [Sensipar] 60 mg PO TUTHSA 02/26/19 04/19/19 History Allergies Allergy/AdvReac Type Severity Reaction Status Date / Time hydralazine AdvReac Rapid Verified 04/19/19 07:30 Heart Rate WHEN GIVEN THROUGH IV Physical Exam Vitals: Vital Signs Temp Pulse Pulse Resp BP BP Pulse Ox 04/19/19 18:58 98.4 F 89 18 158/94 99 04/19/19 18:08 96 04/19/19 18:02 100 04/19/19 17:40 98.2 F 91 16 158/94 92 L 04/19/19 17:26 98.9 F 78 18 188/82 97 04/19/19 16:24 188/82 97 04/19/19 14:30 200/115 09/18/19 14:05 195/114 04/19/19 12:23 78 18 142/95 95 04/19/19 09:55 83 04/19/19 09:44 98.9 F 84 18 152/110 100 04/19/19 09:43 83 04/19/19 06:08 98.1 F 92 18 152/95 100 Intake and Output 04/19/19 04/19/19 04/19/19 06:59 14:59 22:59 Other: Weight 56.699 kg PHYSICAL EXAMINATION: Patient is lying in the bed comfortably, no acute distress, awake alert and oriented.. HEENT: Normocephalic. Neck is supple. Pupils reactive. Nostrils clear. Oral cavity is moist. Ears reveal no drainage. Neck reveals no JVD, carotid bruits, or thyromegaly. CHEST EXAMINATION: Trachea is central. Symmetrical expansion. Lung lópez clear to auscultation and percussion. CARDIAC: Normal S1, S2 with no gallops. No murmurs ABDOMEN: Soft. Mild lower abdominal tenderness. No guarding no rigidity. Bowel sounds normal. No organomegaly. No abdominal bruits. Extremities: reveal no edema. No clubbing or cyanosis Neurologically awake, alert, oriented x3 with well-coordinated movements. No focal deficits noted Skin: No rash or skin lesions. Psychiatric: Coperative. Nonsuicidal Musculoskeletal: No joint swelling or deformity. Normal range of motion. Results CBC & Chem 7: 04/19/19 07:11 04/19/19 07:11 Labs: Abnormal Lab Results - Last 24 Hours (Table) 04/19/19 04/19/19 Range/Units 07:11 07:11 RBC 3.19 L (3.80-5.40) m/uL Hgb 9.7 L (11.4-16.0) gm/dL Hct 29.9 L (34.0-46.0) % RDW 20.6 H (11.5-15.5) % Lymphocytes # 0.8 L (1.0-4.8) k/uL Sodium 136 L (137-145) mmol/L Potassium 6.2 H* (3.5-5.1) mmol/L Chloride 96 L (98-107) mmol/L Carbon Dioxide 31 H (22-30) mmol/L BUN 59 H (7-17) mg/dL Creatinine 8.78 H* (0.52-1.04) mg/dL Albumin 3.4 L (3.5-5.0) g/dL Thrombosis Risk Factor Assmnt - DVT/VTE Prophylaxis DVT/VTE Prophylaxis: Pharmacologic Prophylaxis ordered - Choose All That Apply Any of the Below Risk Factors Present?: No Other Risk Factors: No Other congenital or acquired thrombophilia - If yes, enter type in comment: No Thrombosis Risk Factor Assessment Level: Very Low Risk Assessment and Plan Assessment: Abdominal pain. Etiology unclear. Mainly right lower quadrant. CT abdomen showed possible enteritis like picture but no diarrhea. Improved clinically now. ESRD on hemodialysis on Wednesday and Wednesday Hyperkalemia secondary to see Amy History of polycystic kidney disease History of failed renal transplant currently maintained on prednisone Hypertension Ascites Chronic CHF with systolic dysfunction ejection fraction 35-40%. Nonischemic cardiomyopathy. Moderate tricuspid regurgitation and pulmonary hypertension Asthma stable. Chronic anemia/anemia of chronic disease Chronic back pain Irregular menses Previous History of smoking Plan: Patient is currently getting hemodialysis. Abdominal pain did improve clinically. Currently denied any nausea vomiting. Follow-up potassium level. Continue the home medications and further recommendations based on the clinical course. Nephrology is following. Continue with low potassium diet. Time with Patient: Greater than 30
[2019-04-20] MEDS: ALBUTEROL NEBULIZED 2.5 MG/3 ML INHALATION PRN ×4 (01:30→19:27)
[2019-04-20] MEDS: HYDROmorphone 0.5 MG/0.5 ML SYRINGE IVP PRN ×4 (04:01→20:44)
[2019-04-20] MEDS: SYMBICORT 80-4.5 MCG INHALER INHALATION SCH ×2 (07:40→19:27)
[2019-04-20 07:42] LABS: Anisocytosis Moderate; Basophils # (A) 0.2 k/uL (0-0.2); Basophils % (A) 3 %; Eosinophils # (A) 0.4 k/uL (0-0.7); Eosinophils % (A) 7 %; HCT 30.5 % (34.0-46.0); HGB 9.7 gm/dL (11.4-16.0); Hypochromasia Moderate; Lymphocytes # (A) 0.6 k/uL (1.0-4.8); Lymphocytes % (A) 11 %; MCH 30.1 pg (25.0-35.0); MCHC 31.8 g/dL (31.0-37.0); MCV 94.7 fL (80.0-100.0); Macrocytosis Slight; Mean Platelet Volume 7.2; Monocytes # (A) 0.3 k/uL (0-1.0); Monocytes % (A) 5 %; Neutrophils % (A) 72 %; Platelet Count 214 k/uL (150-450); RBC 3.22 m/uL (3.80-5.40); RDW 20.4 % (11.5-15.5); WBC 5.5 k/uL (3.8-10.6)
[2019-04-20 08:11] LABS: Calcium 8.7 mg/dL (8.4-10.2)
[2019-04-20] MEDS: hydrALAZINE HCL 50 MG TAB PO SCH ×3 (08:37→20:43)
[2019-04-20] MEDS: predniSONE 10 MG TAB PO SCH (08:37)
[2019-04-20] MEDS: CARVEDILOL 12.5 MG TAB PO SCH ×2 (08:37→17:30)
[2019-04-20] MEDS: ONDANSETRON 4 MG/2 ML VIAL IVP PRN (08:46)
[2019-04-20] MEDS ORDERED: CINACALCET 30 MG TAB PO SCH (09:00)
--- NOTE | 2019-04-20 11:47 | PN ---
PROGRESS NOTE The patient is seen for followup for end-stage renal disease. This morning she is comfortable. Patient denies any significant complaints. She is scheduled for hemodialysis in a.m. PHYSICAL EXAMINATION: On examination, blood pressure is 163/97, heart rate 86 per minute. She is afebrile. EXAMINATION OF THE HEART: S1, S2. EXAMINATION OF THE LUNGS: Bilateral breath sounds are heard. ABDOMEN: Soft, nontender. Examination of the lower extremities shows no significant edema. LABS: Labs show sodium 136, potassium 5.0, BUN 32, serum creatinine 6.28 from this morning. ASSESSMENT: 1. End-stage renal disease, on hemodialysis on Wednesday, Wednesday, Wednesday schedule. We will arrange for hemodialysis in a.m. 2. Hypertension, partly volume sensitive. Currently improved expect further improvement post dialysis in a.m. We will plan for about 3 to 4 L of fluid removal tomorrow. 3. History of failed renal transplant. 4. Abdominal pain, currently improved. No major abnormalities noted on CAT scan. 5. Hyperkalemia on initial admission, improved post dialysis. 6. Chronic kidney disease mineral bone disorder. 7. Congestive heart failure systolic, ejection fraction 35% to 40% with pulmonary hypertension. PLAN: Hemodialysis in a.m., UF about 3 to 4 L as tolerated. Continue current antihypertensive medications and phosphate binders. MMODL / IJN: [id number] /
[2019-04-20] MEDS: SODIUM CHLORIDE 0.9% 1,000 ML IV SCH (15:05)
[2019-04-20] MEDS: POLYETHYLENE GLYCOL 3350 17 GM POWD.PACK PO SCH (19:07)
[2019-04-20] MEDS: HEPARIN SODIUM,PORCINE 5,000 UNIT/ML 1 ML VIAL SQ SCH (20:43)
--- NOTE | 2019-04-20 23:02 | P.PN ---
Subjective Progress Note Date: 04/20/19 Principal diagnosis: Hyperkalemia Abdominal pain possible enteritis Patient is to 8 old female with a known history of ESRD due to polycystic kidney disease, failed renal transplant. Currently on hemodialysis and nonischemic cardiomyopathy ejection fraction 35-40% and valvular heart disease, asthma and other multiple medical problems came to ER with complaints of right lower quadrant abdominal pain. CT abdomen Showed mild soft tissue anasarca and diffuse abdominal ascites. No evidence of bowel obstruction was noted. Patient does have enteritis-like picture likely due to medical illnesses. Otherwise patient denied any chest pain or shortness of breath. He does have nausea. No diarrhea or constipation. Patient does not make urine. Denied dark color stool or diarrhea.Potassium was high at 6.2 which was medically treated with IV insulin and D50, nebulized albuterol, Kayexalate and IV insulin. She does have Kayexalate at home but does not like to take it. She scheduled to undergo hemodialysis today. Denies any fever or chills. Patient did have full dialysis on Wednesday. Denied any missed dialysis. EKG showed sinus rhythm. 04/20/2018 Patient is currently awake alert and oriented 3. Patient is complaining of abdominal pain mainly lower abdominal and also not having bowel movement for the past 4 days. Patient was started on stool softeners. No leukocytosis otherwise. No fever no chills. No diarrhea. Requesting IV pain medications. Potassium level improved after dialysis yesterday. Next hemodialysis is tomorrow a.m. Active Medications Acetaminophen (Tylenol Tab) 650 mg PO Q6HR PRN PRN Reason: Mild Pain or Fever > 100.5 Albuterol Sulfate (Ventolin Nebulized) 2.5 mg INHALATION RT-Q6H PRN PRN Reason: Shortness Of Breath Last Admin: 04/20/19 19:27 Dose: 2.5 mg Documented by: Budesonide/Formoterol Fumarate (Symbicort 80-4.5 Mcg Inhaler) 2 puff INHALATION RT-Q12H [facility] Last Admin: 04/20/19 19:27 Dose: 2 puff Documented by: Calcium Acetate (Phoslo) 1,334 mg PO ACHS PRN PRN Reason: MEALS & SNACK Carvedilol (Coreg) 25 mg PO BID-W/MEALS [facility] Last Admin: 04/20/19 17:30 Dose: 25 mg Documented by: Cinacalcet (Sensipar) 60 mg PO TUTHSA [facility] Last Admin: 04/20/19 08:37 Dose: 60 mg Documented by: Heparin Sodium (Porcine) (Heparin) 5,000 unit SQ Q12HR [facility] Last Admin: 04/20/19 20:43 Dose: Not Given Documented by: Hydralazine HCl (Apresoline) 100 mg PO TID [facility] Last Admin: 04/20/19 20:43 Dose: 100 mg Documented by: Hydromorphone HCl (Dilaudid) 0.5 mg IVP Q3HR PRN PRN Reason: Moderate Pain Last Admin: 04/20/19 20:44 Dose: 0.5 mg Documented by: Sodium Chloride (Saline 0.9%) 1,000 mls @ 20 mls/hr IV .Q24H [facility] Last Admin: 04/20/19 15:05 Dose: Not Given Documented by: Naloxone HCl (Narcan) 0.2 mg IV Q2M PRN PRN Reason: Opioid Reversal Ondansetron HCl (Zofran) 4 mg IVP Q8HR PRN PRN Reason: Nausea And Vomiting Last Admin: 04/20/19 08:46 Dose: 4 mg Documented by: Polyethylene Glycol (Miralax) 17 gm PO DAILY [facility] Stop: 04/21/19 09:01 Last Admin: 04/20/19 19:07 Dose: 17 gm Documented by: Prednisone () 10 mg PO DAILY [facility] Last Admin: 04/20/19 08:37 Dose: 10 mg Documented by: Objective - Vital Signs Vital signs: Vital Signs Temp 98.3 F 04/20/19 14:34 Pulse 85 04/20/19 14:34 Resp 16 04/20/19 14:34 BP 157/90 04/20/19 14:34 Pulse Ox 100 04/20/19 14:34 Intake & Output 04/19/19 04/20/19 04/20/19 18:59 06:59 18:59 Intake Total 600 Balance 600 Intake: Oral 600 Other: # Voids 1 2 - Exam PHYSICAL EXAMINATION: Patient is lying in the bed comfortably, no acute distress, awake alert and oriented.. HEENT: Normocephalic. Neck is supple. Pupils reactive. Nostrils clear. Oral cavity is moist. Ears reveal no drainage. Neck reveals no JVD, carotid bruits, or thyromegaly. CHEST EXAMINATION: Trachea is central. Symmetrical expansion. Minimal right basilar crackles. Lung lópez clear to auscultation and percussion. CARDIAC: Normal S1, S2 with no gallops. No murmurs ABDOMEN: Soft. Bowel sounds normal. Left lower quadrant mild pain. No guarding no rigidity. No organomegaly. No abdominal bruits. Extremities: reveal no edema. No clubbing or cyanosis Neurologically awake, alert, oriented x3 with well-coordinated movements. No focal deficits noted Skin: No rash or skin lesions. Psychiatric: Coperative. Nonsuicidal. Anxious Musculoskeletal: No joint swelling or deformity. Normal range of motion. - Labs CBC & Chem 7: 04/20/19 07:10 04/20/19 07:10 Labs: Abnormal Lab Results - Last 24 Hours (Table) 04/20/19 04/20/19 Range/Units 07:10 07:10 RBC 3.22 L (3.80-5.40) m/uL Hgb 9.7 L (11.4-16.0) gm/dL Hct 30.5 L (34.0-46.0) % RDW 20.4 H (11.5-15.5) % Lymphocytes # 0.6 L (1.0-4.8) k/uL Sodium 136 L (137-145) mmol/L Chloride 97 L (98-107) mmol/L BUN 32 H (7-17) mg/dL Creatinine 6.28 H (0.52-1.04) mg/dL Assessment and Plan Assessment: Abdominal pain. Etiology unclear. Possible enteritis. Mainly right lower quadrant. CT abdomen showed possible enteritis like picture but no diarrhea. Constipation. ESRD on hemodialysis on Wednesday and Wednesday Hyperkalemia secondary to chronic kidney disease. Improving now History of polycystic kidney disease History of failed renal transplant currently maintained on prednisone Hypertension Ascites Chronic CHF with systolic dysfunction ejection fraction 35-40%. Nonischemic cardiomyopathy. Moderate tricuspid regurgitation and pulmonary hypertension Asthma stable. Chronic anemia/anemia of chronic disease Chronic back pain Irregular menses Previous History of smoking Plan: Patient be continued on pain management and bowel regimen for constipation. P atient is still complaining of abdominal pain. Continue with pain management.. Currently denied any nausea vomiting. Follow-up potassium level. Continue the home medications and further recommendations based on the clinical course. Nephrology is following. Continue with low potassium diet. Time with Patient: Greater than 30
[2019-04-21] MEDS: HYDROmorphone 0.5 MG/0.5 ML SYRINGE IVP PRN ×3 (00:38→12:36)
[2019-04-21] MEDS: ONDANSETRON 4 MG/2 ML VIAL IVP PRN (01:39)
[2019-04-21] MEDS: ALBUTEROL NEBULIZED 2.5 MG/3 ML INHALATION PRN (06:10)
[2019-04-21] MEDS: SYMBICORT 80-4.5 MCG INHALER INHALATION SCH (06:11)
[2019-04-21] MEDS: POLYETHYLENE GLYCOL 3350 17 GM POWD.PACK PO SCH (06:24)
[2019-04-21 07:10] LABS: Anisocytosis Moderate; Basophils # (A) 0.1 k/uL (0-0.2); Basophils % (A) 2 %; Eosinophils # (A) 0.3 k/uL (0-0.7); Eosinophils % (A) 5 %; HCT 32.3 % (34.0-46.0); Hypochromasia Slight; Lymphocytes # (A) 1.1 k/uL (1.0-4.8); Lymphocytes % (A) 20 %; MCHC 30.8 g/dL (31.0-37.0); Macrocytosis Slight; Mean Platelet Volume 7.4; Monocytes # (A) 0.3 k/uL (0-1.0); Monocytes % (A) 5 %; Neutrophils # (A) 3.7 k/uL (1.3-7.7); Neutrophils % (A) 67 %; Platelet Count 243 k/uL (150-450); RBC 3.43 m/uL (3.80-5.40); RDW 20.1 % (11.5-15.5); WBC 5.5 k/uL (3.8-10.6)
[2019-04-21 07:24] LABS: Calcium 8.4 mg/dL (8.4-10.2); Potassium 5.8 mmol/L (3.5-5.1)
[2019-04-21] MEDS: hydrALAZINE HCL 50 MG TAB PO SCH (08:29)
[2019-04-21] MEDS: CARVEDILOL 12.5 MG TAB PO SCH (08:30)
[2019-04-21] MEDS: predniSONE 10 MG TAB PO SCH (08:30)
[2019-04-21] MEDS: HEPARIN SODIUM,PORCINE 5,000 UNIT/ML 1 ML VIAL SQ SCH (08:32)
[2019-04-21 14:30] VITALS: PULSE 83
[2019-04-21 15:17] VITALS: BP 156/106; RESP 16; TEMP 98
--- NOTE | 2019-04-21 20:36 | PN ---
PROGRESS NOTE Patient is seen for followup for end-stage renal disease. She is scheduled for hemodialysis today. Currently she is comfortable, awake, not in any acute distress. Blood pressure was 169/102, heart rate 83 per minute. She is afebrile. EXAMINATION OF THE HEART: S1 and S2. EXAMINATION OF LUNGS: Bilateral breath sounds are heard. ABDOMEN: Soft, non-tender. Examination of lower extremities shows no significant edema. 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 Labs show sodium 134, potassium 5.8, BUN 51, serum creatinine 8.73, hemoglobin 10.0 g/dL. ASSESSMENT: 1. End-stage renal disease, on hemodialysis on a Wednesday, Wednesday, Wednesday schedule. Patient will be dialyzed today. We will try about 3 to 4 L of ultrafiltration. 2. Hypertension, partly volume-sensitive. Expect further improvement post dialysis. Continue current antihypertensive regimen. 3. Abdominal pain, now resolved. No major abnormalities noted on the CT scan. 4. History of failed renal transplant. 5. Congestive heart failure, systolic, acute on top of chronic, ejection fraction of 35% to 40%. 6. Pulmonary hypertension. 7. History of failed renal transplant. 8. Hyperkalemia. Expect improvement post dialysis. PLAN: Hemodialysis today. Patient can be discharged post dialysis. MMODL / IJN: [id number] /
== END 2019-04-21 16:45 | disposition home or self-care (01) | DRG 391 ==
LOC: EC 05:58 → 4SSUR 11:43
PROVIDERS: ADMIT Hospitalist; ATTEND Hospitalist
PROC: 5A1D70Z Performance of Urinary Filtration, Intermittent, Less than 6 Hours Per Day (ICD-10-PCS; principal; 2019-04-21)
DX: R10.9 Unspecified abdominal pain (principal); N18.6 End stage renal disease; I42.9 Cardiomyopathy, unspecified; I13.2 Hypertensive heart and chronic kidney disease with heart failure and with stage 5 chronic kidney disease, or end stage renal disease; I50.22 Chronic systolic (congestive) heart failure; Q61.3 Polycystic kidney, unspecified; D63.8 Anemia in other chronic diseases classified elsewhere; E87.5 Hyperkalemia; G89.29 Other chronic pain; I08.1 Rheumatic disorders of both mitral and tricuspid valves; I27.20 Pulmonary hypertension, unspecified; I15.8 Other secondary hypertension; K59.00 Constipation, unspecified; J45.909 Unspecified asthma, uncomplicated; T38.0X5A Adverse effect of glucocorticoids and synthetic analogues, initial encounter; Z79.51 Long term (current) use of inhaled steroids; Z79.52 Long term (current) use of systemic steroids; Z79.899 Other long term (current) drug therapy; Z87.891 Personal history of nicotine dependence; Z99.2 Dependence on renal dialysis; Z88.8 Allergy status to other drugs, medicaments and biological substances
CPT/HCPCS: 36415; 74018; 74176; 80048; 80053; 82150; 83690; 84702; 85025; 85610; 85730; 90935; 93005; 94640; 94760; 96361; 96365; 96375; 99285

== ENCOUNTER 2019-04-30 14:49 | Observation (INO) | payer MEDICARE, OTHER ==
[2019-04-30 15:53] LABS: Anisocytosis Slight; Basophils # (A) 0.1 k/uL (0-0.2); Basophils % (A) 1 %; Eosinophils # (A) 0.4 k/uL (0-0.7); Eosinophils % (A) 4 %; HCT 30.1 % (34.0-46.0); HGB 9.9 gm/dL (11.4-16.0); Hypochromasia Slight; Lymphocytes # (A) 1.3 k/uL (1.0-4.8); Lymphocytes % (A) 13 %; MCHC 32.8 g/dL (31.0-37.0); MCV 91.6 fL (80.0-100.0); Mean Platelet Volume 7.7; Monocytes # (A) 0.3 k/uL (0-1.0); Monocytes % (A) 3 %; Neutrophils # (A) 7.7 k/uL (1.3-7.7); Neutrophils % (A) 78 %; Platelet Count 240 k/uL (150-450); RBC 3.29 m/uL (3.80-5.40); RDW 19.3 % (11.5-15.5); WBC 9.9 k/uL (3.8-10.6)
--- NOTE | 2019-04-30 15:53 | XR ---
EXAMINATION TYPE: XR chest 2V DATE OF EXAM: 04/30/2019 COMPARISON: 02/27/2019 HISTORY: Chest pain TECHNIQUE: Frontal and lateral views of the chest are obtained. FINDINGS: Heart is enlarged. There is pulmonary vascular congestion. There is no pleural effusion. IMPRESSION: Mild congestive heart failure improved slightly compared to last exam.
[2019-04-30 16:01] LABS: Albumin 3.7 g/dL (3.5-5.0); Calcium 9.2 mg/dL (8.4-10.2); Potassium 5.8 mmol/L (3.5-5.1); Total Bilirubin 1.5 mg/dL (0.2-1.3); Total Protein 6.9 g/dL (6.3-8.2)
[2019-04-30 16:06] LABS: INR 1.2 (<1.2); Partial Thromboplastin Time 25.2 sec (22.0-30.0); Prothrombin Time 12.7 sec (9.0-12.0)
[2019-04-30] MEDS ORDERED: SODIUM CHLORIDE 0.9% 500 ML 500 ML IV STA (16:25)
[2019-04-30] MEDS ORDERED: HYDROmorphone 1 MG/ML 1 ML SYRINGE IVP STA (16:25)
[2019-04-30] MEDS ORDERED: ONDANSETRON 4 MG/2 ML VIAL IVP STA (16:25)
[2019-04-30] MEDS ORDERED: SODIUM CHLORIDE 0.9% 1,000 ML IV STA (16:25)
[2019-04-30] MEDS ORDERED: PANTOPRAZOLE 40 MG/10 ML VIAL IVP STA (16:56)
[2019-04-30] MEDS ORDERED: LABETALOL 5 MG/ML VIAL MDV IVP STA ×3 (16:56→18:50)
[2019-04-30] MEDS ORDERED: hydrALAZINE HCL 20 MG/ML 1 ML VIAL IVP STA (16:56)
[2019-04-30] MEDS ORDERED: LORazepam 2 MG/ML INJ IV STA (17:42)
--- NOTE | 2019-04-30 17:45 | ED ---
Chest Pain HPI - General Chief Complaint: Chest Pain Stated Complaint: Chest pain/dialysis pt Time Seen by Provider: 04/30/19 16:22 Source: patient, RN notes reviewed, old records reviewed Mode of arrival: wheelchair Limitations: no limitations - History of Present Illness Initial Comments: This is a 28-year-old female the ER for evaluation. Patient's poor strain secondary to being overly angry about her disease in her disease progress. Patient has history of severe hypertension with renal failure coming of chest pain today. She is dialysis 3 times a week she's had dialysis or tenderness weakness persistent nausea vomiting decreased bowel movements for the last 3 days. Patient denying any fevers. She states chest pain is central with mild s hortness of breath. No recent travel history or sick contacts. Patient dialysis on Wednesday as directed. Patient states her blood pressure has been significantly elevated, she is unable to take blood pressure medication secondary to nausea and vomiting MD Complaint: chest pain -: days(s) Onset: during rest, during exertion Pain Location: substernal Pain Radiation: none Severity: moderate Severity scale (1-10): 6 Quality: tightness, sharp Consistency: constant Improves With: nothing Worsens With: nothing Context: recent illness Anginal Symptoms: nausea, vomiting Treatments Prior to Arrival: none - Related Data Home Medications Medication Instructions Recorded Confirmed Albuterol Sulfate [Proair Hfa] 2 puff INHALATION RT-Q6H PRN 01/22/16 04/30/19 Calcium Acetate [PhosLo] 1,334 mg PO AC-TID 05/01/18 04/30/19 Carvedilol [Coreg] 25 mg PO BID 05/28/18 04/30/19 predniSONE 10 mg PO DAILY 05/28/18 04/30/19 hydrALAZINE HCL [Apresoline] 100 mg PO TID 11/16/18 04/30/19 Cinacalcet HCl [Sensipar] 60 mg PO TUTHSA 02/26/19 04/30/19 ALPRAZolam [Xanax] 0.25 mg PO Q8H PRN 04/30/19 04/30/19 Ondansetron Odt [Zofran Odt] 8 mg PO Q8HR PRN 04/30/19 04/30/19 Allergies Allergy/AdvReac Type Severity Reaction Status Date / Time hydralazine AdvReac Rapid Verified 04/30/19 15:59 Heart Rate WHEN GIVEN THROUGH IV Review of Systems ROS Statement: Those systems with pertinent positive or pertinent negative responses have been documented in the HPI. ROS Other: All systems not noted in ROS Statement are negative. EKG Findings - EKG Comments: EKG Findings:: EKG shows sinus rhythm rate of 100, VT 164, QRS 74, QTC 510 Past Medical History Past Medical History: Asthma, Heart Failure, Hypertension, Renal Disease Additional Past Medical History / Comment(s): ESRD d/t being born with polycystic kidney disease, failed kidney transplant, hemodialysis, metabolic bone disease, chronic anemia, nonischemic myopathy with EF 35-40%/mild to moderate mitral valve regurgitation, vitamin D deficiency, chronic low back pain, ovarian cysts, irregular menses, History of Any Multi-Drug Resistant Organisms: None Reported Past Surgical History: Heart Catheterization, Hernia Repair Additional Past Surgical History / Comment(s): 06/14/18 cardiac cath at [facility] to check coronary pressures, 11/15/09 Failed kidney transplant R pelvis, dialysis catheter in and out, current L upper arm AVG, supra pubic hernia repair, transvaginal mesh, wisdom teeth extraction with anesthesia. Past Anesthesia/Blood Transfusion Reactions: No Reported Reaction Additional Past Anesthesia/Blood Transfusion Reaction / Comment(s): Pt has received blood in past without reaction. Past Psychological History: Anxiety, Depression Smoking Status: Former smoker - Past Family History Father Family Medical History: No Reported History Additional Family Medical History / Comment(s): Father is healthy and is 62 yrs old. Mother Family Medical History: No Reported History Additional Family Medical History / Comment(s): Mother is healthy and is 60 yrs old. General Exam Limitations: no limitations General appearance: alert, in no apparent distress, anxious Head exam: Present: atraumatic, normocephalic, normal inspection Eye exam: Present: normal appearance, EOMI. Absent: scleral icterus, conjunctival injection, periorbital swelling ENT exam: Present: normal exam, mucous membranes moist Neck exam: Present: normal inspection. Absent: tenderness, meningismus, lymphadenopathy Respiratory exam: Present: normal lung sounds bilaterally. Absent: respiratory distress, wheezes, rales, rhonchi, stridor Cardiovascular Exam: Present: normal rhythm, tachycardia, normal heart sounds. Absent: systolic murmur, diastolic murmur, rubs, gallop, clicks GI/Abdominal exam: Present: soft, normal bowel sounds. Absent: distended, tenderness, guarding, rebound, rigid Extremities exam: Present: normal inspection, full ROM, normal capillary refill. Absent: tenderness, pedal edema, joint swelling, calf tenderness Back exam: Present: normal inspection Neurological exam: Present: alert, oriented X3, CN II-XII intact Psychiatric exam: Present: normal affect, normal mood Skin exam: Present: warm, dry, intact, normal color. 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 barrera, will admit for cardiology evaluation as well as her nephrology evaluation Chest Pain MDM - MDM 6 cemented ER for evaluation chest pain not feeling well persistent nausea vomiting. Patient be admitted for symptom control, patient unable take medications a hypertensive urgency, chest pain is improved blood pressures improved will admit for cardiology and nephrology to see Critical Care Time Critical Care Time: Yes Total Critical Care Time: 31 Disposition Clinical Impression: Chronic renal disease, Accelerated hypertension, Systolic congestive heart failure, ESRD (end stage renal disease) on dialysis Disposition: ADMITTED IP TO THIS HOSP Condition: Fair Is patient prescribed a controlled substance at d/c from ED?: No Referrals: Mary Baez MD [Primary Care Provider] - 1-2 days
[2019-04-30] MEDS ORDERED: ASPIRIN 81 MG PO STA (17:54)
[2019-04-30] MEDS ORDERED: NITROGLYCERIN SL TABS 0.4 MG TAB SUBLINGUAL PRN (17:54)
[2019-04-30] MEDS ORDERED: MORPHINE SULFATE 4 MG/ML SYRINGE IVP STA (17:55)
[2019-04-30] MEDS ORDERED: LORazepam 2 MG/ML INJ IV PRN (17:55)
[2019-04-30] MEDS: SODIUM CHLORIDE 0.9% 1,000 ML IV SCH ×2 (18:20→21:48)
[2019-04-30] MEDS ORDERED: ENALAPRILAT 1.25 MG/ML 1 ML VIAL IVP STA ×2 (18:48→18:50)
[2019-04-30] MEDS ORDERED: METOCLOPRAMIDE 5 MG/ML 2 ML VIAL IVP STA (18:49)
[2019-04-30] MEDS ORDERED: diphenhydrAMINE 50 MG/ML 1 ML VIAL IVP STA (18:49)
[2019-04-30 19:26] VITALS: RESP 18
[2019-04-30] MEDS: MORPHINE SULFATE 4 MG/ML SYRINGE IVP PRN (21:37)
[2019-05-01] MEDS ORDERED: cloNIDine HCL 0.1 MG TAB PO STA (00:59)
[2019-05-01] MEDS: MORPHINE SULFATE 4 MG/ML SYRINGE IVP PRN ×2 (01:26→05:13)
[2019-05-01 04:15] LABS: Cholesterol 152 mg/dL (<200); HDL Cholesterol 39 mg/dL (40-60); LDL Cholesterol,Calculated 95 mg/dL (0-99); Triglycerides 89 mg/dL (<150)
[2019-05-01] MEDS ORDERED: ALPRAZolam 0.25 MG TAB PO PRN (06:28)
[2019-05-01] MEDS ORDERED: ALBUTEROL NEBULIZED 2.5 MG/3 ML INHALATION PRN (06:28)
[2019-05-01] MEDS: CARVEDILOL 12.5 MG TAB PO SCH ×2 (07:00→17:30)
[2019-05-01] MEDS: hydrALAZINE HCL 50 MG TAB PO SCH ×3 (07:00→21:41)
--- NOTE | 2019-05-01 08:21 | P.CRDCN ---
History of Present Illness Consult date: 05/01/19 Requesting physician: Agnieszka Travis Consult reason: chest pain Chief complaint: Chest pain History of present illness: This is a 28-year-old -Maltese female with past medical history signif icant for end-stage renal disease, status post failed transplant, on hemodialysis, hypertension, severe pulmonary hypertension and nonischemic cardiomyopathy. Most recent cardiac echocardiogram was performed in November of this year and revealed an ejection fraction of 35-40%, LA is severely dilated, mild to moderate aortic regurgitation, moderate tricuspid regurg, moderate pulmonary hypertension. She presented to the hospital with symptoms of chest discomfort. She describes it as a sharp chest pain, that worsens with deep breathing. Patient also has been having several episodes of nausea and vomiting. Her last dialysis was on Wednesday, she states that her blood pressure was significantly elevated, and Wednesday and Wednesday this continued to worsen. She did have a recent hospitalization, was just discharged home on April 21, admitted with abdominal pain and constipation. Patient continues to complain of constipation on exam this morning. Her breathing overall is stable, chest x-ray showed mild congestive heart failure which was improved from prior exam. EKG on presentation here showed a normal sinus rhythm with left ventricular hypertrophy, T wave inversion noted in the lateral leads. EKG similar to prior EKGs. The morning EKG did so show some resolution in the T wave inversion. Blood pressure on arrival here 162/114, heart rate in the 80s, 99% on 2 L of oxygen. Blood pressure this morning 169/110, heart rate in the 80s, 98% on room air. Home medications include Zofran, pro-air, Xanax, prednisone, Apresoline 100 3 times a day, Coreg 25 twice a day. Laboratory data was reviewed, white blood cell count 9.9, hemoglobin 9.9, platelet count 240. Sodium 135, potassium 5.8, BUN 52 and creatinine 9.7. Troponins 0.089, 0.098, 0.081. Upon review of multiple prior visits back to 2015, patient has consistent abnormality in her troponin, likely secondary to renal failure. Past Medical History Past Medical History: Asthma, Heart Failure, Hypertension, Renal Disease Additional Past Medical History / Comment(s): ESRD d/t being born with polycystic kidney disease, failed kidney transplant, hemodialysis, metabolic bone disease, chronic anemia, nonischemic myopathy with EF 35-40%/mild to moderate mitral valve regurgitation, vitamin D deficiency, chronic low back pain, ovarian cysts, irregular menses, History of Any Multi-Drug Resistant Organisms: None Reported Past Surgical History: Heart Catheterization, Hernia Repair Additional Past Surgical History / Comment(s): 06/14/18 cardiac cath at [facility] to check coronary pressures, 11/15/09 Failed kidney transplant R pelvis, dialysis catheter in and out, current L upper arm AVG, supra pubic hernia repair, transvaginal mesh, wisdom teeth extraction with anesthesia. Past Anesthesia/Blood Transfusion Reactions: No Reported Reaction Additional Past Anesthesia/Blood Transfusion Reaction / Comment(s): Pt has received blood in past without reaction. Past Psychological History: Anxiety, Depression Additional Psychological History / Comment(s): Pt resides with family. She is independent. She drives. She is disabled. She states she has anxiety and depression but no suicidal thoughts/ idealations or plans. She had one suicide attempt with overdose in 2012. Smoking Status: Former smoker Past Alcohol Use History: None Reported Additional Past Alcohol Use History / Comment(s): Pt states she started smoking socially as a teen and quit smoking in 2015. Past Drug Use History: None Reported - Past Family History Father Family Medical History: No Reported History Additional Family Medical History / Comment(s): Father is healthy and is 62 yrs old. Mother Family Medical History: No Reported History Additional Family Medical History / Comment(s): Mother is healthy and is 60 yrs old. Medications and Allergies Home Medications Medication Instructions Recorded Confirmed Type Albuterol Sulfate [Proair Hfa] 2 puff INHALATION RT-Q6H PRN 01/22/16 04/30/19 History Calcium Acetate [PhosLo] 1,334 mg PO AC-TID 05/01/18 04/30/19 History Carvedilol [Coreg] 25 mg PO BID 05/28/18 04/30/19 History predniSONE 10 mg PO DAILY 05/28/18 04/30/19 History hydrALAZINE HCL [Apresoline] 100 mg PO TID 11/16/18 04/30/19 History Cinacalcet HCl [Sensipar] 60 mg PO TUTHSA 02/26/19 04/30/19 History ALPRAZolam [Xanax] 0.25 mg PO Q8H PRN 04/30/19 04/30/19 History Ondansetron Odt [Zofran Odt] 8 mg PO Q8HR PRN 04/30/19 04/30/19 History Allergies Allergy/AdvReac Type Severity Reaction Status Date / Time hydralazine AdvReac Rapid Verified 04/30/19 15:59 Heart Rate WHEN GIVEN THROUGH IV Physical Exam Vitals: Vital Signs Temp Pulse Pulse Pulse Resp BP BP 05/01/19 04:00 97.4 F L 86 18 05/01/19 00:00 97.8 F 88 18 169/110 04/30/19 21:30 97.6 F 83 83 18 167/112 04/30/19 20:11 80 18 152/109 04/30/19 19:55 82 18 150/103 04/30/19 19:26 86 18 162/114 04/30/19 18:26 170/117 04/30/19 18:15 166/129 04/30/19 18:10 85 23 166/121 04/30/19 18:00 85 10 L 154/115 04/30/19 17:50 85 8 L 154/115 04/30/19 17:40 84 17 150/109 04/30/19 17:30 89 159 H 184/131 04/30/19 17:20 107 H 13 184/131 04/30/19 17:10 100 22 190/125 04/30/19 17:00 105 H 22 190/134 04/30/19 16:50 102 H 4 L 190/134 04/30/19 16:40 105 H 14 190/134 04/30/19 16:35 105 H 8 L 04/30/19 16:25 120 H 04/30/19 15:03 98.2 F 102 H 18 180/112 Pulse Ox 05/01/19 04:00 96 05/01/19 00:00 98 04/30/19 21:30 100 04/30/19 20:11 100 04/30/19 19:55 95 04/30/19 19:26 99 04/30/19 18:26 04/30/19 18:15 04/30/19 18:10 04/30/19 18:00 04/30/19 17:50 04/30/19 17:40 04/30/19 17:30 04/30/19 17:20 97 04/30/19 17:10 98 04/30/19 17:00 100 04/30/19 16:50 71 L 04/30/19 16:40 99 04/30/19 16:35 100 04/30/19 16:25 04/30/19 15:03 97 Intake and Output 04/30/19 05/01/19 05/01/19 22:59 06:59 14:59 Output Total 200 Balance -200 Output: Emesis 200 Other: # Voids 0 1 Weight 56.699 kg 54.068 kg PHYSICAL EXAMINATION: GENERAL: 28-year-old -Maltese female in no acute distress at the time of my examination HEENT: Head is atraumatic, normocephalic. Pupils equal, round. Sclera anicteric. Conjunctiva are clear. Mucous membranes of the mouth are moist. Neck is supple. There is elevated jugular venous pressure. No carotid bruit is heard. HEART EXAMINATION: Heart S1 and S2 systolic ejection murmur is heard at the base and apex. Parasternal heave noted CHEST EXAMINATION: Lungs clear to auscultation. ABDOMEN: Soft, nontender. Bowel sounds are heard. No organomegaly noted. EXTREMITIES: 2+ peripheral pulses with no evidence of peripheral edema and no calf tenderness noted. NEUROLOGIC patient is awake, alert and oriented 3 . Results 04/30/19 15:15 04/30/19 15:15 Cardiac Enzymes 04/30/19 04/30/19 04/30/19 Range/Units 15:15 15:15 21:01 AST 32 (14-36) U/L Troponin I 0.089 H* 0.098 H* (0.000-0.034) ng/mL 05/01/19 Range/Units 03:22 AST (14-36) U/L Troponin I 0.081 H* (0.000-0.034) ng/mL Coagulation 04/30/19 Range/Units 15:15 PT 12.7 H (9.0-12.0) sec APTT 25.2 (22.0-30.0) sec Lipids 05/01/19 Range/Units 03:20 Triglycerides 89 (<150) mg/dL Cholesterol 152 (<200) mg/dL HDL Cholesterol 39 L (40-60) mg/dL CBC 04/30/19 Range/Units 15:15 WBC 9.9 (3.8-10.6) k/uL RBC 3.29 L (3.80-5.40) m/uL Hgb 9.9 L (11.4-16.0) gm/dL Hct 30.1 L (34.0-46.0) % Plt Count 240 (150-450) k/uL Comprehensive Metabolic Panel 04/30/19 Range/Units 15:15 Sodium 135 L (137-145) mmol/L Potassium 5.8 H (3.5-5.1) mmol/L Chloride 93 L (98-107) mmol/L Carbon Dioxide 26 (22-30) mmol/L BUN 52 H (7-17) mg/dL Creatinine 9.79 H* (0.52-1.04) mg/dL Glucose 58 L (74-99) mg/dL Calcium 9.2 (8.4-10.2) mg/dL AST 32 (14-36) U/L ALT 26 (9-52) U/L Alkaline Phosphatase 56 (38-126) U/L Total Protein 6.9 (6.3-8.2) g/dL Albumin 3.7 (3.5-5.0) g/dL Current Medications Generic Name Dose Route Start Last Admin Trade Name Freq PRN Reason Stop Dose Admin Albuterol Sulfate 2.5 mg 05/01/19 06:28 Ventolin Nebulized INHALATION RT-Q6H PRN Shortness Of Breath Alprazolam 0.25 mg 05/01/19 06:28 Xanax PO Q8H PRN Anxiety Aspirin 325 mg 05/01/19 09:00 Aspirin PO DAILY [facility] Calcium Acetate 1,334 mg 05/01/19 07:30 Phoslo PO AC-TID SELENE Carvedilol 25 mg 05/01/19 07:30 05/01/19 07:00 Coreg PO 25 mg AC-BID ESLENE Administration Cinacalcet 60 mg 05/02/19 09:00 Sensipar PO TUTHSA [facility] Heparin Sodium (Porcine) 5,000 unit 05/01/19 08:00 Heparin SQ Q8HR SELENE Hydralazine HCl 100 mg 05/01/19 09:00 05/01/19 07:00 Apresoline PO 100 mg TID SELENE Administration Sodium Chloride 1,000 mls @ 100 mls/hr 04/30/19 18:00 04/30/19 21:48 Saline 0.9% IV 100 mls/hr .Q10H SELENE Administration Lorazepam 1 mg 04/30/19 17:55 04/30/19 21:37 Ativan IV 1 mg Q4HR PRN Administration Anxiety Morphine Sulfate 4 mg 04/30/19 17:55 05/01/19 05:13 Morphine Sulfate (Inj) IVP 4 mg Q4HR PRN Administration Pain Nitroglycerin 0.4 mg 04/30/19 17:54 Nitrostat SUBLINGUAL Q5M PRN Chest Pain Ondansetron HCl 4 mg 04/30/19 17:55 Zofran IVP Q6HR PRN Nausea And Vomiting Pantoprazole Sodium 40 mg 05/01/19 09:00 Protonix IVP DAILY SELENE Prednisone 10 mg 05/01/19 09:00 PO DAILY SELENE Intake and Output 04/30/19 05/01/19 05/01/19 22:59 06:59 14:59 Output Total 200 Balance -200 Output: Emesis 200 Other: # Voids 0 1 Weight 56.699 kg 54.068 kg 04/30/19 15:15 04/30/19 15:15 EKG Interpretations (text) EKG shows a normal sinus rhythm with evidence of left ventricular hypertrophy, T wave inversion noted in the lateral leads. Assessment and Plan Plan: Assessment and plan #1 chest pain, atypical in nature, worsens with deep breathing. EKG shows normal sinus rhythm with T wave inversion in the lateral leads, similar to prior EKGs. Troponins 0.08, 0.09, 0.08. #2 end-stage renal disease on hemodialysis, failed transplant #3 history of valvular heart disease, echocardiogram with Doppler study performed in November revealed an ejection fraction of 35-40%, LA is severely dilated, mild to moderate aortic regurg, mild mitral regurgitation and moderate tricuspid regurg with moderate pulmonary hypertension. #4 hypertension, accelerated #5 asthma #6 anemia, chronic #7 nonischemic cardiomyopathy. #8 chronic systolic congestive heart failure, echo performed in November showed an ejection fraction of 35-40%, LA is severely dilated, moderate tricuspid regurg, moderate aortic regurg and moderate pulmonary hypertension. #9 chronically elevated troponins, likely secondary to renal failure Plan We'll decrease the aspirin to 81 mg daily, continue Coreg 25 mg twice a day, continue hydralazine, consider the addition of Norvasc for more optimal blood pressure control. Repeat echocardiogram with Doppler study. DNP note has been reviewed, I agree with a documented findings and plan of care. Patient was seen and examined.
[2019-05-01] MEDS: predniSONE 10 MG TAB PO SCH (08:40)
[2019-05-01] MEDS: HEPARIN SODIUM,PORCINE 5,000 UNIT/ML 1 ML VIAL SQ SCH ×3 (08:40→23:37)
[2019-05-01] MEDS: ASPIRIN 81 MG PO SCH (08:42)
[2019-05-01] MEDS ORDERED: ASPIRIN 325 MG TAB PO SCH (09:00)
[2019-05-01] MEDS ORDERED: ENOXAPARIN 40 MG/0.4 ML SYRINGE SQ SCH (09:00)
[2019-05-01] MEDS ORDERED: PANTOPRAZOLE 40 MG/10 ML VIAL IVP SCH (09:00)
--- NOTE | 2019-05-01 10:23 | ECHOF ---
Referral Reason:chest pain MEASUREMENTS -------- HEIGHT: 157.5 cm WEIGHT: 54.0 kg BP: 169/110 RVIDd: 4.7 cm (< 3.3) IVSd: 1.4 cm (0.6 - 1.1) LVIDd: 5.5 cm (3.9 - 5.3) LVPWd: 1.8 cm (0.6 - 1.1) IVSs: 1.9 cm LVIDs: 4.3 cm LVPWs: 2.2 cm LAESV Index (A-L): 80.77 ml/m Ao Diam: 3.0 cm (2.0 - 3.7) AV Cusp: 2.2 cm (1.5 - 2.6) LA Diam: 5.2 cm (2.7 - 3.8) EPSS: 1.7 cm MV E Minesh: 1.44 m/s MV DecT: 103 ms MV A Minesh: 0.83 m/s MV E/A Ratio: 1.73 AR PHT: 558 ms RAP: 15.00 mmHg RVSP: 94.42 mmHg MV EF SLOPE: 71.96 mm/s (70 - 150) MV EXCURSION: 1.56 cm (> 18.000) FINDINGS -------- Sinus rhythm. This was a technically adequate study. The left ventricle is mildly dilated. There is moderate concentric left ventricular hypertrophy. There is mild global hypokinesis of LV . Overall left ventricular systolic function is moderately i mpaired with, an EF between 35 - 40 %. The right ventricle is severely enlarged. Left atrium is severely dilated by volume. The right atrium is moderately enlarged. Interatrial and interventricular septum intact. Aortic valve is trileaflet and is mildly thickened. There is moderate aortic regurgitation. The mitral valve is normal. Moderate mitral regurgitation is present. Severe tricuspid regurgitation present. There is severe pulmonary hypertension. The right ventric ular systolic pressure, as measured by Doppler, is 94.42mmHg. Moderate pulmonic regurgitation. The aortic root size is normal. Normal inferior vena cava with less than 50% inspiratory collapse consistent with estimated right atr ial pressure of 15 mmHg. There is a small, generalized pericardial effusion present. CONCLUSIONS -------- 1. Sinus rhythm. 2. This was a technically adequate study. 3. The left ventricle is mildly dilated. 4. There is moderate concentric left ventricular hypertrophy. 5. There is mild global hypokinesis of LV . 6. Overall left ventricular systolic function is moderately impaired with, an EF between 35 - 40 %. 7. The right ventricle is severely enlarged. 8. Left atrium is severely dilated by volume. 9. The right atrium is moderately enlarged. 10. There is moderate aortic regurgitation. 11. Moderate mitral regurgitation is present. 12. Severe tricuspid regurgitation present. 13. There is severe pulmonary hypertension. 14. Moderate pulmonic regurgitation. 15. The aortic root size is normal. 16. Normal inferior vena cava with less than 50% inspiratory collapse consistent with estimated right atrial pressure of 15 mmHg. 17. There is a small, generalized pericardial effusion present. [employer]: Kelli Zambrano RDCS
[2019-05-01] MEDS: traMADol 50 MG TAB PO PRN ×3 (10:27→23:32)
[2019-05-01] MEDS ORDERED: SODIUM POLYSTYRENE SULFONATE 15 GM/60 ML BOTTLE PO STA (10:44)
--- NOTE | 2019-05-01 10:50 | P.HPIM ---
History of Present Illness Patient is a pleasant 28-year-old female known to me from her previous hospitalization came in with compensative nausea vomiting epigastric burning sensation patient does have history of gastritis, gastroparesis which is contributing to her symptoms although patient troponins minimally elevated which is expecte Hemodialysis end-stage renal disease patient and patient also has ejection fraction of 30-35% in the past but doesn't make much urine. Patient is on IV fluids were discontinued as patient is dialysis dependent doesn't make much urine not vomiting today nauseous today. Because of minimally elevated troponin and epigastric abdominal burning sensation teacher citizenship was consulted from ER to evaluate to the patient no further recommendation from that perspective epigastric abdominal burning sensation secondary to gastritis or peptic ulcer disease and troponin is elevation of significant stress renal disease. Patient complains that she is constipated as well for which we'll use. Potassium is elevated. Patient is Wednesday hemodialysis last my dialysis was on Wednesday. Review of Systems REVIEW OF SYSTEMS: CONSTITUTIONAL: No fever, no malaise, no fatigue. HEENT: No recent visual problems or hearing problems. Denied any sore throat. CARDIOVASCULAR: No orthopnea, PND, no palpitations, no syncope. PULMONARY: No shortness of breath, no cough, no hemoptysis. GASTROINTESTINAL: No diarrhea. NEUROLOGICAL: No headaches, no weakness, no numbness. HEMATOLOGICAL: Denies any bleeding or petechiae. GENITOURINARY: Denies any burning micturition, frequency, or urgency. MUSCULOSKELETAL/RHEUMATOLOGICAL: Denies any joint pain, swelling, or any muscle pain. ENDOCRINE: Denies any polyuria or polydipsia. The rest of the 14-point review of systems is negative. Past Medical History Past Medical History: Asthma, Heart Failure, Hypertension, Renal Disease Additional Past Medical History / Comment(s): ESRD d/t being born with polycystic kidney disease, failed kidney transplant, hemodialysis, metabolic bone disease, chronic anemia, nonischemic myopathy with EF 35-40%/mild to moderate mitral valve regurgitation, vitamin D deficiency, chronic low back pain, ovarian cysts, irregular menses, History of Any Multi-Drug Resistant Organisms: None Reported Past Surgical History: Heart Catheterization, Hernia Repair Additional Past Surgical History / Comment(s): 06/14/18 cardiac cath at [facility] to check coronary pressures, 11/15/09 Failed kidney transplant R pelvis, dialysis catheter in and out, current L upper arm AVG, supra pubic hernia repair, transvaginal mesh, wisdom teeth extraction with anesthesia. Past Anesthesia/Blood Transfusion Reactions: No Reported Reaction Additional Past Anesthesia/Blood Transfusion Reaction / Comment(s): Pt has received blood in past without reaction. Past Psychological History: Anxiety, Depression Additional Psychological History / Comment(s): Pt resides with family. She is independent. She drives. She is disabled. She states she has anxiety and depression but no suicidal thoughts/ idealations or plans. She had one suicide attempt with overdose in 2012. Smoking Status: Former smoker Past Alcohol Use History: None Reported Additional Past Alcohol Use History / Comment(s): Pt states she started smoking socially as a teen and quit smoking in 2015. Past Drug Use History: None Reported - Past Family History Father Family Medical History: No Reported History Additional Family Medical History / Comment(s): Father is healthy and is 62 yrs old. Mother Family Medical History: No Reported History Additional Family Medical History / Comment(s): Mother is healthy and is 60 yrs old. Medications and Allergies Home Medications Medication Instructions Recorded Confirmed Type Albuterol Sulfate [Proair Hfa] 2 puff INHALATION RT-Q6H PRN 01/22/16 04/30/19 History Calcium Acetate [PhosLo] 1,334 mg PO AC-TID 05/01/18 04/30/19 History Carvedilol [Coreg] 25 mg PO BID 05/28/18 04/30/19 History predniSONE 10 mg PO DAILY 05/28/18 04/30/19 History hydrALAZINE HCL [Apresoline] 100 mg PO TID 11/16/18 04/30/19 History Cinacalcet HCl [Sensipar] 60 mg PO TUTHSA 02/26/19 04/30/19 History ALPRAZolam [Xanax] 0.25 mg PO Q8H PRN 04/30/19 04/30/19 History Ondansetron Odt [Zofran Odt] 8 mg PO Q8HR PRN 04/30/19 04/30/19 History Allergies Allergy/AdvReac Type Severity Reaction Status Date / Time hydralazine AdvReac Rapid Verified 04/30/19 15:59 Heart Rate WHEN GIVEN THROUGH IV Physical Exam Vitals: Vital Signs Temp Pulse Pulse Pulse Resp BP BP 05/01/19 08:49 98.4 F 82 16 162/93 05/01/19 04:00 97.4 F L 86 18 05/01/19 00:00 97.8 F 88 18 169/110 04/30/19 21:30 97.6 F 83 83 18 167/112 04/30/19 20:11 80 18 152/109 04/30/19 19:55 82 18 150/103 04/30/19 19:26 86 18 162/114 04/30/19 18:26 170/117 04/30/19 18:15 166/129 04/30/19 18:10 85 23 166/121 04/30/19 18:00 85 10 L 154/115 04/30/19 17:50 85 8 L 154/115 04/30/19 17:40 84 17 150/109 04/30/19 17:30 89 159 H 184/131 04/30/19 17:20 107 H 13 184/131 04/30/19 17:10 100 22 190/125 04/30/19 17:00 105 H 22 190/134 04/30/19 16:50 102 H 4 L 190/134 04/30/19 16:40 105 H 14 190/134 04/30/19 16:35 105 H 8 L 04/30/19 16:25 120 H 04/30/19 15:03 98.2 F 102 H 18 180/112 Pulse Ox 05/01/19 08:49 96 05/01/19 04:00 96 05/01/19 00:00 98 04/30/19 21:30 100 04/30/19 20:11 100 04/30/19 19:55 95 04/30/19 19:26 99 04/30/19 18:26 04/30/19 18:15 04/30/19 18:10 04/30/19 18:00 04/30/19 17:50 04/30/19 17:40 04/30/19 17:30 04/30/19 17:20 97 04/30/19 17:10 98 04/30/19 17:00 100 04/30/19 16:50 71 L 04/30/19 16:40 99 04/30/19 16:35 100 04/30/19 16:25 04/30/19 15:03 97 Intake and Output 04/30/19 05/01/19 05/01/19 22:59 06:59 14:59 Output Total 200 Balance -200 Output: Emesis 200 Other: # Voids 0 1 Weight 56.699 kg 54.068 kg PHYSICAL EXAMINATION: GENERAL: The patient is alert and oriented x3, not in any acute distress. And built female HEENT: Pupils are round and equally reacting to light. EOMI. No scleral icterus. No conjunctival pallor. Normocephalic, atraumatic. No pharyngeal erythema. No thyromegaly. CARDIOVASCULAR: S1 and S2 present. No murmurs, rubs, or gallops. PULMONARY: Chest is clear to auscultation, no wheezing or crackles. ABDOMEN: Soft,minimal epigastric abdominal tenderness, nondistended, normoactive bowel sounds. No palpable organomegaly. MUSCULOSKELETAL: No joint swelling or deformity. EXTREMITIES: No cyanosis, clubbing, or pedal edema. NEUROLOGICAL: Gross neurological examination did not reveal any focal deficits. SKIN: No rashes. Results CBC & Chem 7: 04/30/19 15:15 04/30/19 15:15 Labs: Abnormal Lab Results - Last 24 Hours (Table) 04/30/19 04/30/19 04/30/19 Range/Units 15:05 15:15 15:15 RBC 3.29 L (3.80-5.40) m/uL Hgb 9.9 L (11.4-16.0) gm/dL Hct 30.1 L (34.0-46.0) % RDW 19.3 H (11.5-15.5) % PT (9.0-12.0) sec INR (<1.2) Sodium 135 L (137-145) mmol/L Potassium 5.8 H (3.5-5.1) mmol/L Chloride 93 L (98-107) mmol/L BUN 52 H (7-17) mg/dL Creatinine 9.79 H* (0.52-1.04) mg/dL Glucose 58 L (74-99) mg/dL Phosphorus 7.0 H (2.5-4.5) mg/dL Total Bilirubin 1.5 H (0.2-1.3) mg/dL Troponin I (0.000-0.034) ng/mL HDL Cholesterol (40-60) mg/dL 04/30/19 04/30/19 04/30/19 Range/Units 15:15 15:15 21:01 RBC (3.80-5.40) m/uL Hgb (11.4-16.0) gm/dL Hct (34.0-46.0) % RDW (11.5-15.5) % PT 12.7 H (9.0-12.0) sec INR 1.2 H (<1.2) Sodium (137-145) mmol/L Potassium (3.5-5.1) mmol/L Chloride (98-107) mmol/L BUN (7-17) mg/dL Creatinine (0.52-1.04) mg/dL Glucose (74-99) mg/dL Phosphorus (2.5-4.5) mg/dL Total Bilirubin (0.2-1.3) mg/dL Troponin I 0.089 H* 0.098 H* (0.000-0.034) ng/mL HDL Cholesterol (40-60) mg/dL 05/01/19 05/01/19 Range/Units 03:20 03:22 RBC (3.80-5.40) m/uL Hgb (11.4-16.0) gm/dL Hct (34.0-46.0) % RDW (11.5-15.5) % PT (9.0-12.0) sec INR (<1.2) Sodium (137-145) mmol/L Potassium (3.5-5.1) mmol/L Chloride (98-107) mmol/L BUN (7-17) mg/dL Creatinine (0.52-1.04) mg/dL Glucose (74-99) mg/dL Phosphorus (2.5-4.5) mg/dL Total Bilirubin (0.2-1.3) mg/dL Troponin I 0.081 H* (0.000-0.034) ng/mL HDL Cholesterol 39 L (40-60) mg/dL Thrombosis Risk Factor Assmnt - Choose All That Apply Each Factor Represents 1 point: Age 41-60 years Thrombosis Risk Factor Assessment Total Risk Factor Score: 1 Thrombosis Risk Factor Assessment Level: Low Risk Assessment and Plan Plan: -Nausea vomiting epigastric abdominal tenderness pain,: Secondary to peptic is a disease or gastritis and the from gastroparesis as well patient will be continued on Protonix disc any morphine because of her renal disease and patient was started on tramadol instead that doesn't help we will use low-dose of Dilaudid. -End-stage renal disease hematemesis dependent IV fluids were discontinued patient will undergo hemodialysis -Diabetes nephropathy and end-stage and disease -Type 1 diabetes mellitus continue with her insulin regimen -1 left heart disease with EF of 35-40% -Hypertension uncontrolled: Patient will be resumed on her home regimen except to improve with dialysis -Asthma without any acute exacerbation at -Gastroparesis -Chest pain noncardiac and elevated troponin secondary to renal disease
[2019-05-01] MEDS: CALCIUM ACETATE 667 MG CAP PO SCH ×3 (11:20→17:30)
[2019-05-01] MEDS: ONDANSETRON 4 MG/2 ML VIAL IVP PRN ×2 (11:24→19:35)
[2019-05-01] MEDS ORDERED: amLODIPine 5 MG TAB PO SCH (11:30)
[2019-05-01] MEDS ORDERED: hydrALAZINE HCL 20 MG/ML 1 ML VIAL IVP PRN (13:13)
--- NOTE | 2019-05-01 13:15 | P.NPCON ---
History of Present Illness - Reason for Consult end stage renal disease - History of Present Illness Reason for consultation: End-stage renal disease History of present illness: Patient is a 72-year-old female seen in renal consultation for end-stage renal disease. She is maintained on hemodialysis on a Wednesday schedule. Patient presented to the hospital with chest pain which she describes as sharp in nature. She also complains to feeling sick to her stomach. Patient states she hasn't been able to keep her medications down due to nausea and vomiting. She denies any diarrhea. Patient has history of failed renal transplant. She is maintained on prednisone 10 mg daily outpatient. Denies shortness of breath. She is afebrile. Echocardiogram revealed ejection fraction of 35-40% with moderate aortic regurgitation, moderate mitral regurgitation, severe tricuspid regurgitation and severe pulmonary hypertension. Cardiology is following. No plans for acute intervention. Potassium level was 5.8 on admission. No labs from today. She is maintained on Kayexalate outpatient but again she states she hasn't been able to take it due to nausea and vomiting. She is scheduled for hemodialysis today. Vital signs are stable. General: The patient appeared well nourished and normally developed. HEENT: Head exam is unremarkable. Neck is without jugular venous distension. LUNGS: Lungs are clear to auscultation and percussion. Breath sounds decreased. HEART: Rate and Rhythm are regular. First and second heart sounds normal. No murmurs, rubs or gallops. ABDOMEN: Mild tenderness. Soft. EXTREMITITES: No clubbing, cyanosis, or edema. 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 to check coronary pressures, 11/15/09 Failed kidney transplant R pelvis, dialysis catheter in and out, current L upper arm AVG, supra pubic hernia repair, transvaginal mesh, wisdom teeth extraction with anesthesia. Past Anesthesia/Blood Transfusion Reactions: No Reported Reaction Additional Past Anesthesia/Blood Transfusion Reaction / Comment(s): Pt has received blood in past without reaction. Past Psychological History: Anxiety, Depression Additional Psychological History / Comment(s): Pt resides with family. She is independent. She drives. She is disabled. She states she has anxiety and depression but no suicidal thoughts/ idealations or plans. She had one suicide attempt with overdose in 2012. Smoking Status: Former smoker Past Alcohol Use History: None Reported Additional Past Alcohol Use History / Comment(s): Pt states she started smoking socially as a teen and quit smoking in 2015. Past Drug Use History: None Reported - Past Family History Father Family Medical History: No Reported History Additional Family Medical History / Comment(s): Father is healthy and is 62 yrs old. Mother Family Medical History: No Reported History Additional Family Medical History / Comment(s): Mother is healthy and is 60 yrs old. Medications and Allergies Home Medications Medication Instructions Recorded Confirmed Type Albuterol Sulfate [Proair Hfa] 2 puff INHALATION RT-Q6H PRN 01/22/16 04/30/19 History Calcium Acetate [PhosLo] 1,334 mg PO AC-TID 05/01/18 04/30/19 History Carvedilol [Coreg] 25 mg PO BID 05/28/18 04/30/19 History predniSONE 10 mg PO DAILY 05/28/18 04/30/19 History hydrALAZINE HCL [Apresoline] 100 mg PO TID 11/16/18 04/30/19 History Cinacalcet HCl [Sensipar] 60 mg PO TUTHSA 02/26/19 04/30/19 History ALPRAZolam [Xanax] 0.25 mg PO Q8H PRN 04/30/19 04/30/19 History Ondansetron Odt [Zofran Odt] 8 mg PO Q8HR PRN 04/30/19 04/30/19 History Allergies Allergy/AdvReac Type Severity Reaction Status Date / Time hydralazine AdvReac Rapid Verified 04/30/19 15:59 Heart Rate WHEN GIVEN THROUGH IV Physical Exam Vitals: Vital Signs Temp Pulse Pulse Pulse Resp BP BP 05/01/19 12:00 98.3 F 74 16 167/102 05/01/19 08:49 98.4 F 82 16 162/93 05/01/19 04:00 97.4 F L 86 18 05/01/19 00:00 97.8 F 88 18 169/110 04/30/19 21:30 97.6 F 83 83 18 167/112 04/30/19 20:11 80 18 152/109 04/30/19 19:55 82 18 150/103 04/30/19 19:26 86 18 162/114 04/30/19 18:26 170/117 04/30/19 18:15 166/129 04/30/19 18:10 85 23 166/121 04/30/19 18:00 85 10 L 154/115 04/30/19 17:50 85 8 L 154/115 04/30/19 17:40 84 17 150/109 04/30/19 17:30 89 159 H 184/131 04/30/19 17:20 107 H 13 184/131 04/30/19 17:10 100 22 190/125 04/30/19 17:00 105 H 22 190/134 04/30/19 16:50 102 H 4 L 190/134 04/30/19 16:40 105 H 14 190/134 04/30/19 16:35 105 H 8 L 04/30/19 16:25 120 H 04/30/19 15:03 98.2 F 102 H 18 180/112 Pulse Ox 05/01/19 12:00 99 05/01/19 08:49 96 05/01/19 04:00 96 05/01/19 00:00 98 04/30/19 21:30 100 04/30/19 20:11 100 04/30/19 19:55 95 04/30/19 19:26 99 04/30/19 18:26 04/30/19 18:15 04/30/19 18:10 04/30/19 18:00 04/30/19 17:50 04/30/19 17:40 04/30/19 17:30 04/30/19 17:20 97 04/30/19 17:10 98 04/30/19 17:00 100 04/30/19 16:50 71 L 04/30/19 16:40 99 04/30/19 16:35 100 04/30/19 16:25 04/30/19 15:03 97 Intake and Output 04/30/19 05/01/19 05/01/19 22:59 06:59 14:59 Output Total 200 Balance -200 Output: Emesis 200 Other: # Voids 0 1 Weight 56.699 kg 54.068 kg Results - Lab Results Most recent lab results Calcium 9.2 mg/dL (8.4-10.2) 04/30/19 15:15 Phosphorus 7.0 mg/dL (2.5-4.5) H 04/30/19 15:05 Magnesium 2.0 mg/dL (1.6-2.3) 04/30/19 15:15 04/30/19 15:15 04/30/19 15:15 Assessment and Plan Plan: Assessment: 1. End-stage renal disease maintained on hemodialysis on Wednesday schedule. 2. Hyperkalemia secondary to chronic kidney disease. 3. Hypertension with chronic kidney disease. Partially due to pain and nausea. 4. Chronic kidney disease mineral bone disease maintained on Sensipar and phoslo. 5. History of failed renal transplant. 6. Chronic systolic CHF with ejection fraction of 35-40% with moderate aortic and mitral regurgitation and severe tricuspid regurgitation. 7. Severe pulmonary hypertension. 8. Sharp chest pain along with abdominal discomfort. Cardiology following. No interventions planned at this time. Plan: Hemodialysis today. Increase amlodipine to 5 mg twice daily. Thank you for the consultation. I will continue to follow the patient with you during her hospital stay.
[2019-05-01] MEDS ORDERED: POLYETHYLENE GLYCOL 3350 17 GM POWD.PACK PO STA (21:25)
[2019-05-01] MEDS: amLODIPine 5 MG TAB PO SCH (21:41)
[2019-05-01] MEDS: DOCUSATE 100 MG CAP PO SCH (21:41)
[2019-05-02] MEDS: CARVEDILOL 12.5 MG TAB PO SCH (07:01)
[2019-05-02] MEDS: CALCIUM ACETATE 667 MG CAP PO SCH ×2 (07:02→11:11)
[2019-05-02] MEDS ORDERED: PANTOPRAZOLE 40 MG TABLET PO SCH (07:30)
[2019-05-02] MEDS: HEPARIN SODIUM,PORCINE 5,000 UNIT/ML 1 ML VIAL SQ SCH (08:14)
[2019-05-02] MEDS: ASPIRIN 81 MG PO SCH (08:18)
[2019-05-02] MEDS: amLODIPine 5 MG TAB PO SCH (08:18)
[2019-05-02] MEDS: predniSONE 10 MG TAB PO SCH (08:18)
[2019-05-02] MEDS: hydrALAZINE HCL 50 MG TAB PO SCH (08:18)
[2019-05-02] MEDS: DOCUSATE 100 MG CAP PO SCH (08:18)
[2019-05-02] MEDS ORDERED: CINACALCET 30 MG TAB PO SCH (09:00)
[2019-05-02 11:36] VITALS: BP 119/69; PULSE 71; TEMP 97.8
[2019-05-02] MEDS: ONDANSETRON 4 MG/2 ML VIAL IVP PRN (12:08)
--- NOTE | 2019-05-02 13:17 | P.DS ---
Providers Date of admission: 04/30/19 17:54 Expected date of discharge: 05/02/19 Attending physician: Agnieszka Travis Consults: 04/30/19 17:54 Consult Physician Routine Consulting Provider: Robin Thompson Consult Reason/Comments: CKD,HD Do you want consulting provider notified?: Yes Consult Physician Urgent Consulting Provider: Misti Mast Consult Reason/Comments: cp Do you want consulting provider notified?: Yes Primary care physician: Nestor Hernandez Hospital Course: Final diagnosis Nausea vomiting epigastric abdominal tenderness and pain secondary to peptic ulcer disease or gastritis, and from gastroparesis end-stage renal disease Diabetic nephropathy Diabetes mellitus type 1 Hypertension, uncontrolled Nonischemic myopathy with an ejection fraction of 35-40% Chronic systolic congestive heart failure asthma without any acute exacerbation gastroparesis chest pain noncardiac elevated troponin secondary to renal disease Discharge disposition Patient is being discharged in a stable condition with guarded prognosis to home and will follow-up with primary care provider upon discharge. Patient will continue with hemodialysis as scheduled on Mondays/Wednesdays/Fridays. Total time taken is 35 minutes. History of present illness This is a 28-year-old female was recently admitted with nausea vomiting and epigastric burning sensation with a history of gastritis and gastroparesis and was being monitored closely. Nephrology was following. Patient was dialyzed yesterday and will continue with her Wednesday/Wednesday/Wednesday schedule. Per nephrology recommendations patient's amlodipine will be increased to 5 mg twice daily. Cardiology was consulted due to mildly elevated troponins and recommending hemodialysis and no further treatment at this time. The epigastric abdominal burning son sensation is most likely secondary to gastritis or peptic ulcer disease. Patient will go home on Protonix 40 mg daily as well as Zofran as needed. Today patient is lying in bed in no acute distress. Patient states that she has some mild nausea and takes Zofran with some relief. Patient is tolerating crackers with no vomiting at this time. Patient denies any chest pain, palpitations, or shortness of breath at this time. Patient is afebrile. Currently patient's condition is stable with much improvement. On exam vitals signs are stable. Temp is 97.8F, pulse is 71, respirations are 16, blood pressure is 119/69, oxygen saturation is 99% on room air. Cardio S1 and S2 are muffled. Respiratory system shows clear to auscultation. Abdomen is soft with mild tenderness upon palpation. Nervous system shows no focal deficits. Please refer to medication reconciliation sheet for a list of medications. Patient Condition at Discharge: Fair Plan - Discharge Summary New Discharge Prescriptions: New Aspirin 81 mg PO DAILY 30 Days #30 chew amLODIPine [Norvasc] 5 mg PO BID 30 Days #60 tab Pantoprazole [Protonix] 40 mg PO AC-BRKFST #30 tablet. Continue Albuterol Sulfate [Proair Hfa] 2 puff INHALATION RT-Q6H PRN PRN Reason: Shortness Of Breath Calcium Acetate [PhosLo] 1,334 mg PO AC-TID predniSONE 10 mg PO DAILY Carvedilol [Coreg] 25 mg PO BID hydrALAZINE HCL [Apresoline] 100 mg PO TID Cinacalcet HCl [Sensipar] 60 mg PO TUTHSA ALPRAZolam [Xanax] 0.25 mg PO Q8H PRN PRN Reason: Anxiety Ondansetron Odt [Zofran ODT] 8 mg PO Q8HR PRN #30 tab PRN Reason: Nausea And Vomiting Discharge Medication List Albuterol Sulfate [Proair Hfa] 2 puff INHALATION RT-Q6H PRN 01/22/16 [History] Calcium Acetate [PhosLo] 1,334 mg PO AC-TID 05/01/18 [History] Carvedilol [Coreg] 25 mg PO BID 05/28/18 [History] predniSONE 10 mg PO DAILY 05/28/18 [History] hydrALAZINE HCL [Apresoline] 100 mg PO TID 11/16/18 [History] Cinacalcet HCl [Sensipar] 60 mg PO TUTHSA 02/26/19 [History] ALPRAZolam [Xanax] 0.25 mg PO Q8H PRN 04/30/19 [History] Aspirin 81 mg PO DAILY 30 Days #30 chew 05/02/19 [Rx] Ondansetron Odt [Zofran ODT] 8 mg PO Q8HR PRN #30 tab 05/02/19 [Rx] Pantoprazole [Protonix] 40 mg PO AC-BRKFST #30 tablet. 05/02/19 [Rx] amLODIPine [Norvasc] 5 mg PO BID 30 Days #60 tab 05/02/19 [Rx] Follow up Appointment(s)/Referral(s): Mary Baez MD [Primary Care Provider] - 05/04/19 11:20 am Patient Instructions/Handouts: Hypertension (DC) Activity/Diet/Wound Care/Special Instructions: Activity limited until follow up follow up with pcp this week resume dialysis M/W/F continue current diet and advance as tolerated continue with protonix daily may take zofran as needed. Discharge Disposition: HOME SELF-CARE
--- NOTE | 2019-05-02 19:47 | PN ---
PROGRESS NOTE Patient is seen for followup for end-stage renal disease. She is currently doing fairly well. She was dialyzed yesterday. She is not short of breath. Patient will be dialyzed again tomorrow. On examination, blood pressure is 119/69, heart rate 71 per minute. She is afebrile. EXAMINATION OF THE HEART: S1 and S2. EXAMINATION OF LUNGS: Bilateral breath sounds are heard. ABDOMEN: Soft, non-tender. Examination of lower extremities shows no evidence of edema. 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 Labs show sodium of 135, potassium 5.8 from 04/30/2019. ASSESSMENT: 1. End-stage renal disease, on hemodialysis on a Wednesday, Wednesday, Wednesday schedule. 2. Fluid overload, currently improved. 3. Hyperkalemia, status post dialysis. 4. Chronic kidney disease mineral bone disorder. 5. Infiltration of needle yesterday with dialysis towards the end of treatment. PLAN: Next treatment will be tomorrow. Patient does not need to be dialyzed today. MMODL / IJN: [id number] /
== END 2019-05-02 13:15 | disposition home or self-care (01) ==
LOC: EC 14:49 → 3SCARD 17:54
PROVIDERS: ADMIT Hospitalist; ATTEND Hospitalist
DX: E10.43 Type 1 diabetes mellitus with diabetic autonomic (poly)neuropathy (principal); K31.84 Gastroparesis; I13.2 Hypertensive heart and chronic kidney disease with heart failure and with stage 5 chronic kidney disease, or end stage renal disease; N18.6 End stage renal disease; I50.22 Chronic systolic (congestive) heart failure; E10.22 Type 1 diabetes mellitus with diabetic chronic kidney disease; J45.909 Unspecified asthma, uncomplicated; R07.89 Other chest pain; E10.21 Type 1 diabetes mellitus with diabetic nephropathy; E87.5 Hyperkalemia; I42.8 Other cardiomyopathies; I27.20 Pulmonary hypertension, unspecified; I16.0 Hypertensive urgency; I08.3 Combined rheumatic disorders of mitral, aortic and tricuspid valves; K59.00 Constipation, unspecified; R79.89 Other specified abnormal findings of blood chemistry; M89.8X9 Other specified disorders of bone, unspecified site; T86.12 Kidney transplant failure; Y83.0 Surgical operation with transplant of whole organ as the cause of abnormal reaction of the patient, or of later complication, without mention of misadventure at the time of the procedure; F41.9 Anxiety disorder, unspecified; F32.9 Major depressive disorder, single episode, unspecified; Q61.3 Polycystic kidney, unspecified; Z99.2 Dependence on renal dialysis; D64.9 Anemia, unspecified; G89.29 Other chronic pain; M54.5 Low back pain; N92.6 Irregular menstruation, unspecified; N83.209 Unspecified ovarian cyst, unspecified side; E88.89 Other specified metabolic disorders; E55.9 Vitamin D deficiency, unspecified; Z79.899 Other long term (current) drug therapy; Z79.52 Long term (current) use of systemic steroids; Z88.8 Allergy status to other drugs, medicaments and biological substances; Z91.5 Personal history of self-harm; Z87.891 Personal history of nicotine dependence
CPT/HCPCS: 96376 ×4; 96361 ×3; 96372; 96375 ×2; 96374; 99291; 36415; 93005; 93306; 80061; 80053; 83690; 83735; 84100; 84484 ×2; 85025; 85610; 85730; 71046; G0257; G0378 ×3; J2060; J2270 ×2; J1644; J2765; J2405 ×3; J1170; J7512 ×2; C9113 ×2; 90935

== ENCOUNTER 2019-05-24 12:23 | Emergency (ER) | payer BC, MEDICARE, OTHER ==
[2019-05-24 12:28] VITALS: RESP 18; TEMP 98.2
[2019-05-24] MEDS ORDERED: SODIUM CHLORIDE 0.9% 1,000 ML IV STA (12:52)
[2019-05-24] MEDS ORDERED: MORPHINE SULFATE 4 MG/ML SYRINGE IV STA (12:52)
[2019-05-24] MEDS ORDERED: ASPIRIN 81 MG PO STA (12:52)
--- NOTE | 2019-05-24 12:56 | ED ---
Chest Pain HPI - General Chief Complaint: Chest Pain Stated Complaint: Chest pain Time Seen by Provider: 05/24/19 12:45 Source: patient, RN notes reviewed, old records reviewed Mode of arrival: ambulatory Limitations: no limitations - History of Present Illness Initial Comments: Patient is a 28-year-old female with a history of end-stage renal disease, on dialysis. Patient reports that she is in the middle of dialysis when she woke up on the onset of sudden chest pain. She reports is worse with taking a deep breath. She states she feels short of breath. Patient states that she has been taking her medications but continues to be hypertensive. Patient reports that she completed 2 and half hours of her dialysis today. Patient states that she has had no specific fevers or chills. No history of blood clots. She denies any unilateral leg swelling. Denies any nausea or vomiting. - Related Data Home Medications Medication Instructions Recorded Confirmed Albuterol Sulfate [Proair Hfa] 2 puff INHALATION RT-Q6H PRN 01/22/16 05/24/19 Calcium Acetate [PhosLo] 1,334 mg PO AC-TID 05/01/18 05/24/19 Carvedilol [Coreg] 25 mg PO BID 05/28/18 05/24/19 predniSONE 10 mg PO DAILY 05/28/18 05/24/19 hydrALAZINE HCL [Apresoline] 100 mg PO TID 11/16/18 05/24/19 Cinacalcet HCl [Sensipar] 60 mg PO TUTHSA 02/26/19 05/24/19 ALPRAZolam [Xanax] 1 mg PO HS PRN 05/24/19 05/24/19 Lidocaine-Prilocaine Cream [Emla 1 applic TOPICAL DAILY PRN 05/24/19 05/24/19 Cream 2.5%/2.5%] NIFEdipine [NIFEdipine ER] 90 mg PO DAILY 05/24/19 05/24/19 traZODone HCL [Desyrel] 50 mg PO HS PRN 05/24/19 05/24/19 Previous Rx's Medication Instructions Recorded Ondansetron Odt [Zofran ODT] 8 mg PO Q8HR PRN #30 tab 05/02/19 Pantoprazole [Protonix] 40 mg PO AC-BRKFST #30 tablet. 05/02/19 Allergies Allergy/AdvReac Type Severity Reaction Status Date / Time hydralazine AdvReac Rapid Verified 05/24/19 13:02 Heart Rate WHEN GIVEN THROUGH IV Review of Systems ROS Statement: Those systems with pertinent positive or pertinent negative responses have been documented in the HPI. ROS Other: All systems not noted in ROS Statement are negative. EKG Findings - EKG Comments: EKG Findings:: EKG shows normal sinus rhythm, left ventricular purge free and repolarization around. Prolonged QT. Ventricular rate of 96 beats were minute. Interval is 184 ms. QS duration is 94 ms. QT QTc is 414/523 ms. No evidence of ST elevation or T-wave inversions. 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 Past Anesthesia/Blood Transfusion Reactions: No Reported Reaction Additional Past Anesthesia/Blood Transfusion Reaction / Comment(s): Pt has received blood in past without reaction. Past Psychological History: Anxiety, Depression Smoking Status: Former smoker Past Alcohol Use History: None Reported Past Drug Use History: None Reported - Past Family History Father Family Medical History: No Reported History Additional Family Medical History / Comment(s): Father is healthy and is 62 yrs old. Mother Family Medical History: No Reported History Additional Family Medical History / Comment(s): Mother is healthy and is 60 yrs old. General Exam - General Exam Comments Initial Comments: Patient is a 28-year-old female. Patient appears in mild to moderate discomfort. Limitations: no limitations General appearance: alert, in no apparent distress Head exam: Present: atraumatic, normocephalic, normal inspection Eye exam: Present: normal appearance, PERRL, EOMI. Absent: scleral icterus, conjunctival injection, periorbital swelling ENT exam: Present: normal exam, mucous membranes moist Neck exam: Present: normal inspection. Absent: tenderness, meningismus, lymphadenopathy Respiratory exam: Present: normal lung sounds bilaterally. Absent: respiratory distress, wheezes, rales, rhonchi, stridor Cardiovascular Exam: Present: normal rhythm, normal heart sounds, S3 (S3 gallop noted.). Absent: regular rate, systolic murmur, diastolic murmur, rubs, gallop, clicks GI/Abdominal exam: Present: soft, normal bowel sounds. Absent: distended, tenderness, guarding, rebound, rigid Extremities exam: Present: normal inspection, full ROM, normal capillary refill. Absent: tenderness, pedal edema, joint swelling, calf tenderness Back exam: Present: normal inspection Neurological exam: Present: alert, oriented X3, CN II-XII intact Psychiatric exam: Present: normal affect, normal mood Skin exam: Present: warm, dry, intact, normal color. Absent: rash Course Vital Signs 05/24/19 05/24/19 05/24/19 12:25 12:39 12:45 Temperature 98.2 F Pulse Rate 96 91 Respiratory 18 18 18 Rate Blood Pressure 190/118 184/123 O2 Sat by Pulse 97 100 Oximetry 05/24/19 05/24/19 05/24/19 13:19 13:51 15:08 Temperature Pulse Rate 93 82 91 Respiratory 18 18 18 Rate Blood Pressure 180/120 177/121 171/134 O2 Sat by Pulse 99 100 100 Oximetry 05/24/19 16:15 Temperature 98.2 F Pulse Rate 91 Respiratory 18 Rate Blood Pressure 171/134 O2 Sat by Pulse 100 Oximetry Chest Pain MDM - MDM 28 rolled female presents with atypical description of chest pain. Patient states that it occurred while she was resting while getting dialysis in complaining of some sharp rate pleuritic description of chest pain. This time patient's labwork was reviewed. Patient had a negative d-dimer. She states that her pain is somewhat reproducible to palpation over the sternum. Her troponin test is mildly elevated but this is chronic for Patient and EKG shows no acute changes. Patient does not appear to be in any acute distress. After one aspirin and one dose of morphine she was reevaluated, she is resting comfortably in bed states she had no further pain. She states that she did have an echo which reviewed the results of last month. From a cardiac standpoint they were out doing any further intervention. Patient states that she prefers to go home area did discuss this could be appropriate as she follows appropriate with her primary care doctor. Or return to there is any worsening signs or symptoms or recurrence of pain. Patient case was discussed with Dr. Valente states Patient is able to be discharged. We did discuss the case with Dr. Thompson patient's rn cardiac rehab the Patient does not have any signs of severe fluid overload she can follow-up tomorrow to complete her scheduled dialysis. All questions were answered. Disposition Clinical Impression: Atypical chest pain, Hypertension Disposition: HOME SELF-CARE Condition: Good Instructions (If sedation given, give patient instructions): Chest Pain (ED) Additional Instructions: Follow-up with your primary care physician. She can resume dialysis tomorrow. Return to the emergency department if any alarming signs or symptoms occur. Is patient prescribed a controlled substance at d/c from ED?: No Referrals: Mary Baez MD [Primary Care Provider] - 1-2 days Time of Disposition: 16:12
[2019-05-24] MEDS ORDERED: LABETALOL 5 MG/ML VIAL MDV IVP STA (13:10)
[2019-05-24 13:53] LABS: Albumin 3.7 g/dL (3.5-5.0); Calcium 8.9 mg/dL (8.4-10.2); Magnesium 1.9 mg/dL (1.6-2.3); Potassium 3.7 mmol/L (3.5-5.1); Total Bilirubin 1.5 mg/dL (0.2-1.3); Total Protein 7.1 g/dL (6.3-8.2)
[2019-05-24 14:02] LABS: D-Dimer 0.45 mg/L FEU (<0.60); INR 1.1 (<1.2); Partial Thromboplastin Time 25.3 sec (22.0-30.0); Prothrombin Time 11.4 sec (9.0-12.0)
[2019-05-24 14:09] LABS: Anisocytosis Moderate; Basophils % (A) 1 %; Eosinophils # (A) 0.6 k/uL (0-0.7); Eosinophils % (A) 11 %; HCT 34.7 % (34.0-46.0); HGB 10.9 gm/dL (11.4-16.0); Hypochromasia Moderate; Lymphocytes # (A) 1.1 k/uL (1.0-4.8); Lymphocytes % (A) 19 %; MCH 31.1 pg (25.0-35.0); MCHC 31.4 g/dL (31.0-37.0); Macrocytosis Moderate; Monocytes # (A) 0.2 k/uL (0-1.0); Monocytes % (A) 3 %; Neutrophils # (A) 3.6 k/uL (1.3-7.7); Neutrophils % (A) 64 %; Platelet Count 269 k/uL (150-450); RDW 21.4 % (11.5-15.5); WBC 5.6 k/uL (3.8-10.6)
[2019-05-24 14:13] LABS: MCV 99.2 fL (80.0-100.0)
--- NOTE | 2019-05-24 14:17 | XR ---
EXAMINATION TYPE: XR chest 2V DATE OF EXAM: 05/24/2019 COMPARISON: Chest x-ray April 30, 2019. HISTORY: Shortness of breath and chest pain after dialysis. TECHNIQUE: Frontal and lateral views of the chest are obtained. FINDINGS: There is persistent cardiomegaly with mild central vascular congestion thought present. No pleural effusion or pneumothorax. Overlying EKG leads are seen. The osseous structures are intact. IMPRESSION: Cannot exclude CHF exacerbation as there is marked cardiomegaly with perhaps mild centra l vascular congestion thought present.
[2019-05-24] MEDS ORDERED: ONDANSETRON 4 MG/2 ML VIAL IVP STA (15:07)
[2019-05-24 15:09] VITALS: BP 171/134; PULSE 91
== END 2019-05-24 16:18 | disposition home or self-care (01) ==
LOC: EC 12:23
DX: R07.89 Other chest pain (principal); R79.89 Other specified abnormal findings of blood chemistry; I13.2 Hypertensive heart and chronic kidney disease with heart failure and with stage 5 chronic kidney disease, or end stage renal disease; I50.9 Heart failure, unspecified; N18.6 End stage renal disease; D63.1 Anemia in chronic kidney disease; I34.0 Nonrheumatic mitral (valve) insufficiency; G89.29 Other chronic pain; M54.5 Low back pain; F41.9 Anxiety disorder, unspecified; F32.9 Major depressive disorder, single episode, unspecified; J45.909 Unspecified asthma, uncomplicated; Z88.8 Allergy status to other drugs, medicaments and biological substances; Z99.2 Dependence on renal dialysis; Z94.0 Kidney transplant status; Z95.5 Presence of coronary angioplasty implant and graft; Z87.891 Personal history of nicotine dependence; Z79.51 Long term (current) use of inhaled steroids; Z79.52 Long term (current) use of systemic steroids; Z79.899 Other long term (current) drug therapy
CPT/HCPCS: 99285; 96374; 96375 ×2; 96361 ×3; 36415; 93005; 85379; 83880; 80053; 83735; 84484; 85025; 85610; 85730; 71046; J2270; J2405

== ENCOUNTER 2019-06-10 08:52 | Observation (INO) | payer BC, MEDICARE, OTHER ==
--- NOTE | 2019-06-10 09:16 | ED ---
General Adult HPI - General Chief complaint: Shortness of Breath Stated complaint: Stomach pain/fluid Time Seen by Provider: 06/10/19 08:57 Source: patient, RN notes reviewed, old records reviewed Mode of arrival: ambulatory Limitations: no limitations - History of Present Illness Initial comments: 28-year-old female presenting with chief complaint of dyspnea and fluid overload. Patient has history of end-stage renal disease currently on hemodialysis. She states that she's had significant fluid overload over the past several weeks, she's had 4 total sessions of dialysis in the past 5 days. She had no fluid removal of 7.5 L in the past 48 hours, despite this she still has dyspnea and abdominal distention. Denies fever. Denies central chest pain. Denies nausea or vomiting. - Related Data Home Medications Medication Instructions Recorded Confirmed Albuterol Sulfate [Proair Hfa] 2 puff INHALATION RT-Q6H PRN 01/22/16 05/24/19 Calcium Acetate [PhosLo] 1,334 mg PO AC-TID 05/01/18 05/24/19 Carvedilol [Coreg] 25 mg PO BID 05/28/18 05/24/19 predniSONE 10 mg PO DAILY 05/28/18 05/24/19 hydrALAZINE HCL [Apresoline] 100 mg PO TID 11/16/18 05/24/19 Cinacalcet HCl [Sensipar] 60 mg PO TUTHSA 02/26/19 05/24/19 ALPRAZolam [Xanax] 1 mg PO HS PRN 05/24/19 05/24/19 Lidocaine-Prilocaine Cream [Emla 1 applic TOPICAL DAILY PRN 05/24/19 05/24/19 Cream 2.5%/2.5%] NIFEdipine [NIFEdipine ER] 90 mg PO DAILY 05/24/19 05/24/19 traZODone HCL [Desyrel] 50 mg PO HS PRN 05/24/19 05/24/19 Previous Rx's Medication Instructions Recorded Ondansetron Odt [Zofran ODT] 8 mg PO Q8HR PRN #30 tab 05/02/19 Pantoprazole [Protonix] 40 mg PO AC-BRKFST #30 tablet. 05/02/19 Allergies Allergy/AdvReac Type Severity Reaction Status Date / Time hydralazine AdvReac Rapid Verified 06/10/19 08:54 Heart Rate WHEN GIVEN THROUGH IV Review of Systems ROS Statement: Those systems with pertinent positive or pertinent negative responses have been documented in the HPI. ROS Other: All systems not noted in ROS Statement are negative. 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 Past Anesthesia/Blood Transfusion Reactions: No Reported Reaction Additional Past Anesthesia/Blood Transfusion Reaction / Comment(s): Pt has received blood in past without reaction. Past Psychological History: Anxiety, Depression Smoking Status: Former smoker Past Alcohol Use History: None Reported Past Drug Use History: None Reported - Past Family History Father Family Medical History: No Reported History Additional Family Medical History / Comment(s): Father is healthy and is 62 yrs old. Mother Family Medical History: No Reported History Additional Family Medical History / Comment(s): Mother is healthy and is 60 yrs old. General Exam Limitations: no limitations General appearance: alert, in no apparent distress Head exam: Present: atraumatic, normocephalic Eye exam: Present: normal appearance, PERRL ENT exam: Present: normal exam Neck exam: Present: normal inspection. Absent: tenderness Respiratory exam: Present: respiratory distress (Mild), rales (Bilateral), decreased breath sounds Cardiovascular Exam: Present: regular rate, normal rhythm, JVD GI/Abdominal exam: Present: soft, distended. Absent: tenderness, guarding, rebound Extremities exam: Present: pedal edema Neurological exam: Present: alert Psychiatric exam: Present: normal affect, normal mood Skin exam: Present: warm, dry, intact. Absent: cyanosis, diaphoretic Course Vital Signs 06/10/19 06/10/19 06/10/19 08:54 09:07 09:09 Temperature 97.9 F Pulse Rate 92 100 Respiratory 18 18 Rate Blood Pressure 184/116 O2 Sat by Pulse 99 Oximetry 06/10/19 06/10/19 06/10/19 09:30 10:00 10:30 Temperature Pulse Rate 90 104 H 103 H Respiratory Rate Blood Pressure 195/136 192/132 189/138 O2 Sat by Pulse 100 96 98 Oximetry 06/10/19 10:44 Temperature Pulse Rate 103 H Respiratory 17 Rate Blood Pressure 189/138 O2 Sat by Pulse 98 Oximetry EKG Findings - EKG Comments: EKG Findings:: EKG: Normal sinus rhythm, biatrial enlargement, left ventricular hypertrophy, prolonged QT, rate of 97, LA interval 202, QRS duration 94, QTC 482 Medical Decision Making - Medical Decision Making 28-year-old female with end-stage renal disease presenting with dyspnea and abdominal distention. On exam patient is fluid overloaded, she has peripheral edema, mildly distended nontender abdomen, she has bilateral Rales on lung auscultation. She is hypertensive. She has increased weight gain since previous ER visits 17 kg. Electrolytes are obtained, she has normal potassium 4.7. EKG is sinus rhythm. Chest x-ray shows significant cardiomegaly, no vernon pulmonary edema on x-ray. 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 Kirby, will admit for hemodialysis. Case discussed with Dr. Rivera - Lab Data Result diagrams: 06/10/19 10:20 06/10/19 10:20 Lab Results 06/10/19 06/10/19 06/10/19 Range/Units 10:20 10:20 10:20 WBC 5.5 (3.8-10.6) k/uL RBC 3.30 L (3.80-5.40) m/uL Hgb 10.2 L (11.4-16.0) gm/dL Hct 33.5 L (34.0-46.0) % MCV 101.5 H (80.0-100.0) fL MCH 30.9 (25.0-35.0) pg MCHC 30.4 L (31.0-37.0) g/dL RDW 19.7 H (11.5-15.5) % Plt Count 167 (150-450) k/uL Neutrophils % 63 % Lymphocytes % 18 % Monocytes % 6 % Eosinophils % 9 % Basophils % 3 % Neutrophils # 3.5 (1.3-7.7) k/uL Lymphocytes # 1.0 (1.0-4.8) k/uL Monocytes # 0.3 (0-1.0) k/uL Eosinophils # 0.5 (0-0.7) k/uL Basophils # 0.2 (0-0.2) k/uL Hypochromasia Moderate Anisocytosis Slight Macrocytosis Moderate PT 11.8 (9.0-12.0) sec INR 1.1 (<1.2) APTT 23.2 (22.0-30.0) sec Sodium 138 (137-145) mmol/L Potassium 4.7 (3.5-5.1) mmol/L Chloride 98 (98-107) mmol/L Carbon Dioxide 33 H (22-30) mmol/L Anion Gap 7 mmol/L BUN 32 H (7-17) mg/dL Creatinine 5.53 H (0.52-1.04) mg/dL Est GFR (CKD-EPI)AfAm 11 (>60 ml/min/1.73 sqM) Est GFR (CKD-EPI)NonAf 10 (>60 ml/min/1.73 sqM) Glucose 91 (74-99) mg/dL Calcium 9.9 (8.4-10.2) mg/dL Phosphorus 5.5 H (2.5-4.5) mg/dL Magnesium 1.8 (1.6-2.3) mg/dL Total Bilirubin 0.8 (0.2-1.3) mg/dL AST 47 H (14-36) U/L ALT 42 (9-52) U/L Alkaline Phosphatase 91 (38-126) U/L Total Protein 6.6 (6.3-8.2) g/dL Albumin 3.5 (3.5-5.0) g/dL Disposition Clinical Impression: Anasarca, Systolic congestive heart failure, ESRD (end stage renal disease) on dialysis, Fluid overload Disposition: ADMITTED IP TO THIS [facility] Condition: Stable Is patient prescribed a controlled substance at d/c from ED?: No Referrals: Mary Baez MD [Primary Care Provider] - 1-2 days Time of Disposition: 11:22 Decision to Admit Reason: Admit from EC Decision Date: 06/10/19 Decision Time: 11:22
--- NOTE | 2019-06-10 10:31 | XR ---
EXAMINATION TYPE: XR chest 2V DATE OF EXAM: 06/10/2019 HISTORY: difficulty breathing. REFERENCE: Previous study dated 05/24/2019. FINDINGS: There is multichamber cardiac enlargement. Lungs are clear. Pleural spaces are clear. IMPRESSION: FAIRLY MARKED CARDIOMEGALY
[2019-06-10 10:33] LABS: Anisocytosis Slight; Basophils # (A) 0.2 k/uL (0-0.2); Basophils % (A) 3 %; Eosinophils # (A) 0.5 k/uL (0-0.7); Eosinophils % (A) 9 %; HCT 33.5 % (34.0-46.0); HGB 10.2 gm/dL (11.4-16.0); Hypochromasia Moderate; Lymphocytes % (A) 18 %; MCH 30.9 pg (25.0-35.0); MCHC 30.4 g/dL (31.0-37.0); MCV 101.5 fL (80.0-100.0); Macrocytosis Moderate; Mean Platelet Volume 7.1; Monocytes # (A) 0.3 k/uL (0-1.0); Monocytes % (A) 6 %; Neutrophils # (A) 3.5 k/uL (1.3-7.7); Neutrophils % (A) 63 %; Platelet Count 167 k/uL (150-450); RDW 19.7 % (11.5-15.5); WBC 5.5 k/uL (3.8-10.6)
[2019-06-10] MEDS ORDERED: NITROGLYCERIN SL TABS 0.4 MG TAB SUBLINGUAL PRN (10:34)
[2019-06-10] MEDS ORDERED: HYDROmorphone 1 MG/ML 1 ML SYRINGE IVP STA (10:34)
[2019-06-10 10:43] LABS: Albumin 3.5 g/dL (3.5-5.0); Calcium 9.9 mg/dL (8.4-10.2); Magnesium 1.8 mg/dL (1.6-2.3); Phosphorus 5.5 mg/dL (2.5-4.5); Potassium 4.7 mmol/L (3.5-5.1); Total Bilirubin 0.8 mg/dL (0.2-1.3); Total Protein 6.6 g/dL (6.3-8.2)
[2019-06-10 10:50] LABS: INR 1.1 (<1.2)
[2019-06-10 10:51] LABS: Partial Thromboplastin Time 23.2 sec (22.0-30.0); Prothrombin Time 11.8 sec (9.0-12.0)
[2019-06-10] MEDS ORDERED: NALOXONE 0.4 MG/ML 1 ML VIAL IV PRN (11:18)
[2019-06-10] MEDS ORDERED: LABETALOL 5 MG/ML VIAL MDV IVP STA (11:49)
[2019-06-10] MEDS ORDERED: ONDANSETRON 4 MG/2 ML VIAL IVP PRN (13:57)
[2019-06-10 14:17] VITALS: RESP 18
[2019-06-10] MEDS ORDERED: ALPRAZolam 1 MG TAB PO PRN (14:42)
[2019-06-10] MEDS ORDERED: ALBUTEROL NEBULIZED 2.5 MG/3 ML INHALATION PRN (14:42)
[2019-06-10] MEDS ORDERED: ACETAMINOPHEN TAB 325 MG TAB PO PRN (14:42)
[2019-06-10] MEDS ORDERED: ONDANSETRON ODT 8 MG TAB.RAPDIS PO PRN (14:42)
[2019-06-10] MEDS ORDERED: LIDOCAINE-PRILOCAINE 2.5-2.5% CREAM 5 GM TUBE TOPICAL PRN (14:42)
[2019-06-10] MEDS ORDERED: CINACALCET 30 MG TAB PO SCH (14:45)
[2019-06-10] MEDS: hydrALAZINE HCL 50 MG TAB PO SCH ×2 (17:07→21:37)
[2019-06-10] MEDS: CARVEDILOL 12.5 MG TAB PO SCH (17:08)
[2019-06-10] MEDS: CALCIUM ACETATE 667 MG TAB PO SCH (17:08)
[2019-06-10] MEDS: SYMBICORT 80-4.5 MCG INHALER INHALATION SCH (19:59)
[2019-06-10] MEDS ORDERED: HYDROcodone/APAP 5-325MG 1 EACH TAB PO PRN (21:00)
[2019-06-10] MEDS ORDERED: traZODone HCL 50 MG TAB PO SCH (21:00)
[2019-06-11 04:02] VITALS: TEMP 98.7
[2019-06-11] MEDS: CARVEDILOL 12.5 MG TAB PO SCH (06:35)
[2019-06-11] MEDS: CALCIUM ACETATE 667 MG TAB PO SCH (06:35)
[2019-06-11] MEDS ORDERED: PANTOPRAZOLE 40 MG TABLET PO SCH (07:30)
[2019-06-11] MEDS: SYMBICORT 80-4.5 MCG INHALER INHALATION SCH (08:34)
[2019-06-11] MEDS ORDERED: predniSONE 10 MG TAB PO SCH (09:00)
[2019-06-11] MEDS: hydrALAZINE HCL 50 MG TAB PO SCH (09:38)
[2019-06-11 09:42] VITALS: BP 163/103; PULSE 86
--- NOTE | 2019-06-11 10:42 | CONS ---
CONSULTATION REASON FOR CONSULT: End-stage renal disease. HISTORY OF PRESENT ILLNESS: Patient is a 28-year-old female with end-stage renal disease, on hemodialysis on a Wednesday, Wednesday, Wednesday schedule. She was admitted to the hospital with shortness of breath and fluid overload. The patient was dialyzed yesterday. We had about 4 L of ultrafiltration. She will be dialyzed again tomorrow. Blood pressure was significantly elevated. Seems to be slightly better although still remaining high. No complaints of chest pains, nausea, vomiting, fever, chills, or diarrhea. PAST MEDICAL HISTORY: End-stage renal disease, history of failed renal transplant, CKD mineral bone disorder, polycystic kidney disease, anemia of chronic disease, cardiomyopathy, EF 35-40%, history of mild to moderate mitral valve regurgitation, chronic back pain, ovarian cyst. PAST SURGICAL HISTORY: Renal transplantation, cardiac catheterization, AV fistula surgery, AV graft, dialysis catheter placement and removal. SOCIAL HISTORY: Patient is a former smoker. No history of drug abuse or alcohol abuse. MEDICATIONS: Include albuterol, PhosLo, Coreg, prednisone, Sensipar, hydralazine, Xanax, lidocaine, nifedipine, Desyrel, Zofran, Protonix. ALLERGIES: Include HYDRALAZINE WHICH CAUSES TACHYCARDIA. EXAMINATION: Patient is comfortable, awake, not in any acute distress. Blood pressure is 164/107, heart rate 94 per minute, she is afebrile. Examination of the heart S1, S2. Examination of the lungs, decreased breath sounds at bases. Abdomen is soft, nontender. Examination of lower extremities shows no edema. TELECOMMUNICATIONS PROJECT MANAGER exam grossly intact. LABS: Hemoglobin 10.2, sodium 138, potassium 4.7, BUN 32, creatinine 5.53. ASSESSMENT: 1. End-stage renal disease, on hemodialysis on a Wednesday, Wednesday, Wednesday schedule. Patient will be dialyzed again tomorrow. 2. Fluid overload, currently improved. 3. Hypertension, partly volume sensitive, slightly better. Continue home blood pressure medications. Consider increasing Procardia to 90 mg daily. 4. Chronic kidney disease mineral bone disorder maintained on PhosLo and Sensipar, which we can continue. PLAN: Increase Procardia to 90 mg daily. The patient will be dialyzed again tomorrow. MMODL / IJN: [id number] /
--- NOTE | 2019-06-11 13:56 | P.HPIM ---
History of Present Illness 28-year-old pleasant female known to me from her multiple hospitalization does have history of end-stage renal disease hemodialysis dependent patient had a failed renal transplant in the past came in with volume overload patient has been gaining weight and the gained about 17 pounds in last 5 days and found to have pulmonary edema patient is being admitted patient will undergo events hemodialysis today. , Patient was complaining of shortness of breath as well denied any orthopnea or paroxysmal nocturnal dyspnea does have significant abdominal distention does have anasarca. Denied any nausea vomiting. Patient had history of polyps to kidney disease and failed renal transplant in the past Review of Systems REVIEW OF SYSTEMS: CONSTITUTIONAL: No fever, no malaise, no fatigue. HEENT: No recent visual problems or hearing problems. Denied any sore throat. CARDIOVASCULAR: No chest pain, orthopnea, PND, no palpitations, no syncope. PULMONARY: No shortness of breath, no cough, no hemoptysis. GASTROINTESTINAL: No diarrhea, no nausea, no vomiting, no abdominal pain. NEUROLOGICAL: No headaches, no weakness, no numbness. HEMATOLOGICAL: Denies any bleeding or petechiae. GENITOURINARY: Denies any burning micturition, frequency, or urgency. MUSCULOSKELETAL/RHEUMATOLOGICAL: Denies any joint pain, swelling, or any muscle pain. ENDOCRINE: Denies any polyuria or polydipsia. The rest of the 14-point review of systems is negative. 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 Past Anesthesia/Blood Transfusion Reactions: No Reported Reaction Additional Past Anesthesia/Blood Transfusion Reaction / Comment(s): Pt has received blood in past without reaction. Past Psychological History: Anxiety, Depression Additional Psychological History / Comment(s): Pt resides with family. She is independent. She drives. She is disabled. She states she has anxiety and depression but no suicidal thoughts/ idealations or plans. She had one suicide attempt with overdose in 2012. Smoking Status: Former smoker Past Alcohol Use History: None Reported Additional Past Alcohol Use History / Comment(s): Pt states she started smoking socially as a teen and quit smoking in 2015. Past Drug Use History: None Reported - Past Family History Father Family Medical History: No Reported History Additional Family Medical History / Comment(s): Father is healthy and is 62 yrs old. Mother Family Medical History: No Reported History Additional Family Medical History / Comment(s): Mother is healthy and is 60 yrs old. Medications and Allergies Home Medications Medication Instructions Recorded Confirmed Type Albuterol Sulfate [Proair Hfa] 2 puff INHALATION RT-Q6H PRN 01/22/16 06/10/19 History Calcium Acetate [PhosLo] 1,334 mg PO AC-TID 05/01/18 06/10/19 History Carvedilol [Coreg] 25 mg PO BID 05/28/18 06/10/19 History predniSONE 10 mg PO DAILY 05/28/18 06/10/19 History hydrALAZINE HCL [Apresoline] 100 mg PO TID 11/16/18 06/10/19 History Cinacalcet HCl [Sensipar] 60 mg PO TUTHSA 02/26/19 06/10/19 History Ondansetron Odt [Zofran ODT] 8 mg PO Q8HR PRN #30 tab 05/02/19 06/10/19 Rx Pantoprazole [Protonix] 40 mg PO AC-BRKFST #30 tablet. 05/02/19 06/10/19 Rx ALPRAZolam [Xanax] 1 mg PO HS PRN 05/24/19 06/10/19 History Lidocaine-Prilocaine Cream [Emla 1 applic TOPICAL DAILY PRN 05/24/19 06/10/19 History Cream 2.5%/2.5%] traZODone HCL [Desyrel] 50 mg PO HS 05/24/19 06/10/19 History Acetaminophen Tab [Tylenol] 650 mg PO Q6H PRN 06/10/19 06/10/19 History Budesonide/Formoterol Fumarate 2 puff INHALATION RT-BID 06/10/19 06/10/19 History [Symbicort 80-4.5 Mcg Inhaler] NIFEdipine [Procardia XL] 60 mg PO DAILY 06/10/19 06/10/19 History Allergies Allergy/AdvReac Type Severity Reaction Status Date / Time hydralazine AdvReac Rapid Verified 06/10/19 11:44 Heart Rate WHEN GIVEN THROUGH IV Physical Exam Vitals: Vital Signs Temp Pulse Pulse Resp BP BP Pulse Ox 06/10/19 14:12 98.8 F 92 18 171/124 98 06/10/19 12:27 93 20 170/128 100 06/10/19 12:00 105 H 194/134 06/10/19 11:30 102 H 182/142 95 06/10/19 11:00 102 H 180/128 98 06/10/19 10:44 103 H 17 189/138 98 06/10/19 10:30 103 H 189/138 98 06/10/19 10:00 104 H 192/132 96 06/10/19 09:30 90 195/136 100 06/10/19 09:09 18 06/10/19 09:07 100 06/10/19 08:54 97.9 F 92 18 184/116 99 Intake and Output 06/09/19 06/10/19 06/10/19 22:59 06:59 14:59 Output Total 0 Balance 0 Output: Urine 0 Other: # Voids 0 Weight 62 kg PHYSICAL EXAMINATION: GENERAL: The patient is alert and oriented x3, not in any acute distress. Thin built does have abdominal distention HEENT: Pupils are round and equally reacting to light. EOMI. No scleral icterus. No conjunctival pallor. Normocephalic, atraumatic. No pharyngeal erythema. No thyromegaly. CARDIOVASCULAR: S1 and S2 present. No murmurs, rubs, or gallops. PULMONARY: Chest is clear to auscultation, no wheezing or crackles. ABDOMEN: Soft, nontender, distended, normoactive bowel sounds. No palpable organomegaly. MUSCULOSKELETAL: No joint swelling or deformity. EXTREMITIES: No cyanosis, clubbing, or pedal edema. NEUROLOGICAL: Gross neurological examination did not reveal any focal deficits. SKIN: No rashes. Results CBC & Chem 7: 11/09/19 10:20 06/10/19 10:20 Labs: Abnormal Lab Results - Last 24 Hours (Table) 06/10/19 06/10/19 Range/Units 10:20 10:20 RBC 3.30 L (3.80-5.40) m/uL Hgb 10.2 L (11.4-16.0) gm/dL Hct 33.5 L (34.0-46.0) % MCV 101.5 H (80.0-100.0) fL MCHC 30.4 L (31.0-37.0) g/dL RDW 19.7 H (11.5-15.5) % Carbon Dioxide 33 H (22-30) mmol/L BUN 32 H (7-17) mg/dL Creatinine 5.53 H (0.52-1.04) mg/dL Phosphorus 5.5 H (2.5-4.5) mg/dL AST 47 H (14-36) U/L Thrombosis Risk Factor Assmnt - Choose All That Apply Any of the Below Risk Factors Present?: No Other Risk Factors: No Other congenital or acquired thrombophilia - If yes, enter type in comment: No Thrombosis Risk Factor Assessment Level: Very Low Risk Assessment and Plan Plan: Volume overload patient didn't miss any of her sessions of hemodialysis patient will undergo excision of hemodialysis today. Patient does have end-stage renal disease and volume overload is secondary to end-stage renal disease Recent history of polycystic kidney disease failed renal transplant end-stage renal disease Congestive heart failure chronic systolic dysfunction ejection fraction of 35- 40% patient is in acute exacerbation additional hemodialysis session at this time -Hypertension -Asthma without any acute exacerbation - gastroparesis
--- NOTE | 2019-06-11 13:57 | P.DS ---
Providers Date of admission: 06/10/19 11:20 Attending physician: Agnieszka Travis Consults: 06/10/19 11:19 Consult Physician Urgent Consulting Provider: Lolis Kirby Consult Reason/Comments: Fluid overload Do you want consulting provider notified?: Yes Primary care physician: Nestor Hernandez [facility] Course: 28-year-old pleasant female known to me from her multiple hospitalization does have history of end-stage renal disease hemodialysis dependent patient had a failed renal transplant in the past came in with volume overload patient has been gaining weight and the gained about 17 pounds in last 5 days and found to have pulmonary edema patient is being admitted patient will undergo events hemodialysis today. , Patient was complaining of shortness of breath as well denied any orthopnea or paroxysmal nocturnal dyspnea does have significant abdominal distention does have anasarca. Denied any nausea vomiting. Patient had history of polyps to kidney disease and failed renal transplant in the past 06/11/2019 Patient has significant improvement in her clinical status including shortness of breath and edema patient had removal of around 4 and half liters of fluid. Patient wanted to be discharged and cleared from nephrology patient will undergo hemodialysis again tomorrow PHYSICAL EXAMINATION: GENERAL: The patient is alert and oriented x3, not in any acute distress. Thin built does have abdominal distention HEENT: Pupils are round and equally reacting to light. EOMI. No scleral icterus. No conjunctival pallor. Normocephalic, atraumatic. No pharyngeal erythema. No thyromegaly. CARDIOVASCULAR: S1 and S2 present. No murmurs, rubs, or gallops. PULMONARY: Chest is clear to auscultation, no wheezing or crackles. ABDOMEN: Soft, nontender, distended, normoactive bowel sounds. No palpable organomegaly. MUSCULOSKELETAL: No joint swelling or deformity. EXTREMITIES: No cyanosis, clubbing, or pedal edema. NEUROLOGICAL: Gross neurological examination did not reveal any focal deficits. SKIN: No rashes. Please refer to my dictation of the HPI for further details. Patient Condition at Discharge: Stable Plan - Discharge Summary Discharge Rx Participant: No New Discharge Prescriptions: Continue Albuterol Sulfate [Proair Hfa] 2 puff INHALATION RT-Q6H PRN PRN Reason: Shortness Of Breath Calcium Acetate [PhosLo] 1,334 mg PO AC-TID predniSONE 10 mg PO DAILY Carvedilol [Coreg] 25 mg PO BID hydrALAZINE HCL [Apresoline] 100 mg PO TID Cinacalcet HCl [Sensipar] 60 mg PO TUTHSA Pantoprazole [Protonix] 40 mg PO AC-BRKFST #30 tablet. Ondansetron Odt [Zofran ODT] 8 mg PO Q8HR PRN #30 tab PRN Reason: Nausea And Vomiting traZODone HCL [Desyrel] 50 mg PO HS Lidocaine-Prilocaine Cream [Emla Cream 2.5%/2.5%] 1 applic TOPICAL DAILY PRN PRN Reason: DIALYSIS ALPRAZolam [Xanax] 1 mg PO HS PRN PRN Reason: ANXIETY,SLEEP Budesonide/Formoterol Fumarate [Symbicort 80-4.5 Mcg Inhaler] 2 puff INHALATION RT-BID NIFEdipine [Procardia XL] 60 mg PO DAILY Acetaminophen Tab [Tylenol] 650 mg PO Q6H PRN PRN Reason: Pain Discharge Medication List Albuterol Sulfate [Proair Hfa] 2 puff INHALATION RT-Q6H PRN 01/22/16 [History] Calcium Acetate [PhosLo] 1,334 mg PO AC-TID 05/01/18 [History] Carvedilol [Coreg] 25 mg PO BID 05/28/18 [History] predniSONE 10 mg PO DAILY 05/28/18 [History] hydrALAZINE HCL [Apresoline] 100 mg PO TID 11/16/18 [History] Cinacalcet HCl [Sensipar] 60 mg PO TUTHSA 02/26/19 [History] Ondansetron Odt [Zofran ODT] 8 mg PO Q8HR PRN #30 tab 05/02/19 [Rx] Pantoprazole [Protonix] 40 mg PO AC-BRKFST #30 tablet. 05/02/19 [Rx] ALPRAZolam [Xanax] 1 mg PO HS PRN 05/24/19 [History] Lidocaine-Prilocaine Cream [Emla Cream 2.5%/2.5%] 1 applic TOPICAL DAILY PRN 05/24/19 [History] traZODone HCL [Desyrel] 50 mg PO HS 05/24/19 [History] Acetaminophen Tab [Tylenol] 650 mg PO Q6H PRN 06/10/19 [History] Budesonide/Formoterol Fumarate [Symbicort 80-4.5 Mcg Inhaler] 2 puff INHALATION RT-BID 06/10/19 [History] NIFEdipine [Procardia XL] 60 mg PO DAILY 06/10/19 [History] Follow up Appointment(s)/Referral(s): Mary Baez MD [Primary Care Provider] - 3 Days Patient Instructions/Handouts: Dialysis Diet (DC), End Stage Kidney Disease (DC) Discharge Disposition: HOME SELF-CARE
[2019-06-12] MEDS ORDERED: NIFEdipine XL 90 MG TAB.ER.24 PO SCH (09:00)
== END 2019-06-11 10:19 | disposition home or self-care (01) ==
LOC: EC 08:52 → 3SCARD 11:20
PROVIDERS: ADMIT Hospitalist; ATTEND Hospitalist
DX: I13.2 Hypertensive heart and chronic kidney disease with heart failure and with stage 5 chronic kidney disease, or end stage renal disease (principal); N18.6 End stage renal disease; I50.22 Chronic systolic (congestive) heart failure; T86.12 Kidney transplant failure; Z99.2 Dependence on renal dialysis; E87.70 Fluid overload, unspecified; F41.9 Anxiety disorder, unspecified; F32.9 Major depressive disorder, single episode, unspecified; J45.909 Unspecified asthma, uncomplicated; Q61.3 Polycystic kidney, unspecified; N92.6 Irregular menstruation, unspecified; G89.29 Other chronic pain; M54.5 Low back pain; E55.9 Vitamin D deficiency, unspecified; D64.9 Anemia, unspecified; K31.84 Gastroparesis; I34.0 Nonrheumatic mitral (valve) insufficiency; N83.209 Unspecified ovarian cyst, unspecified side; E88.9 Metabolic disorder, unspecified; Z79.51 Long term (current) use of inhaled steroids; Z79.899 Other long term (current) drug therapy; Z88.8 Allergy status to other drugs, medicaments and biological substances; Z87.891 Personal history of nicotine dependence
CPT/HCPCS: 90935; 96375 ×2; 96374; 99285; 36415; 93005; 83880; 80053; 83735; 84100; 85025; 85610; 85730; 71046; G0378 ×2; J2405; J1170; J7512

== ENCOUNTER 2019-06-18 04:59 | Inpatient (IN) | payer BC, MEDICARE, OTHER ==
--- NOTE | 2019-06-18 05:32 | ED ---
General Adult HPI - General Chief complaint: Shortness of Breath Stated complaint: abd discomfort,JEAN-Dialysis pt Time Seen by Provider: 06/18/19 05:06 Source: patient, RN notes reviewed, old records reviewed Mode of arrival: ambulatory Limitations: no limitations - History of Present Illness Initial comments: 28-year-old female history of end-stage renal disease on hemodialysis Wednesday presenting for evaluation of weight gain, dyspnea, and abdominal distention. Patient states she receives hemodialysis yesterday with that fluid off of 2.5 L. Despite this she feels dyspneic and fluid overloaded. She does report some heaviness in her chest, no significant central chest pain. Denies palpitations. Denies fever or chills. Denies cough. - Related Data Home Medications Medication Instructions Recorded Confirmed Albuterol Sulfate [Proair Hfa] 2 puff INHALATION RT-Q6H PRN 01/22/16 06/18/19 Calcium Acetate [PhosLo] 1,334 mg PO AC-TID 05/01/18 06/18/19 Carvedilol [Coreg] 25 mg PO BID 05/28/18 06/18/19 predniSONE 10 mg PO DAILY 05/28/18 06/18/19 hydrALAZINE HCL [Apresoline] 100 mg PO TID 11/16/18 06/18/19 Cinacalcet HCl [Sensipar] 60 mg PO TUTHSA 02/26/19 06/18/19 ALPRAZolam [Xanax] 1 mg PO HS PRN 05/24/19 06/18/19 Lidocaine-Prilocaine Cream [Emla 1 applic TOPICAL DAILY PRN 05/24/19 06/18/19 Cream 2.5%/2.5%] traZODone HCL [Desyrel] 50 mg PO HS 05/24/19 06/18/19 Acetaminophen Tab [Tylenol] 650 mg PO Q6H PRN 06/10/19 06/18/19 Budesonide/Formoterol Fumarate 2 puff INHALATION RT-BID 06/10/19 06/18/19 [Symbicort 80-4.5 Mcg Inhaler] NIFEdipine [Procardia XL] 60 mg PO DAILY 06/10/19 06/18/19 Previous Rx's Medication Instructions Recorded Ondansetron Odt [Zofran ODT] 8 mg PO Q8HR PRN #30 tab 05/02/19 Pantoprazole [Protonix] 40 mg PO AC-BRKFST #30 tablet. 05/02/19 Allergies Allergy/AdvReac Type Severity Reaction Status Date / Time hydralazine AdvReac Rapid Verified 06/10/19 11:44 Heart Rate WHEN GIVEN THROUGH IV Review of Systems ROS Statement: Those systems with pertinent positive or pertinent negative responses have been documented in the HPI. ROS Other: All systems not noted in ROS Statement are negative. 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 to check coronary pressures, 11/15/09 Failed kidney transplant R pelvis, dialysis catheter in and out, current L upper arm AVG, supra pubic hernia repair, transvaginal mesh, wisdom teeth extraction with anesthesia. Past Anesthesia/Blood Transfusion Reactions: No Reported Reaction Additional Past Anesthesia/Blood Transfusion Reaction / Comment(s): Pt has received blood in past without reaction. Past Psychological History: Anxiety, Depression Smoking Status: Former smoker Past Alcohol Use History: None Reported Past Drug Use History: None Reported - Past Family History Father Family Medical History: No Reported History Additional Family Medical History / Comment(s): Father is healthy and is 62 yrs old. Mother Family Medical History: No Reported History Additional Family Medical History / Comment(s): Mother is healthy and is 60 yrs old. General Exam Limitations: no limitations General appearance: alert, in no apparent distress Head exam: Present: atraumatic, normocephalic Eye exam: Present: normal appearance, PERRL Neck exam: Present: normal inspection. Absent: tenderness, meningismus Respiratory exam: Present: rales, decreased breath sounds. Absent: respiratory distress Cardiovascular Exam: Present: regular rate, normal rhythm, systolic murmur GI/Abdominal exam: Present: soft, distended. Absent: tenderness, guarding, rebound Extremities exam: Present: pedal edema Neurological exam: Present: alert, oriented X3 Psychiatric exam: Present: normal affect, normal mood Skin exam: Present: warm, dry, intact. Absent: cyanosis, diaphoretic Course Vital Signs 06/18/19 06/18/19 05:07 05:43 Temperature 97.4 F L Pulse Rate 70 Respiratory 20 16 Rate Blood Pressure 143/99 O2 Sat by Pulse 98 Oximetry EKG Findings - EKG Comments: EKG Findings:: EKG: Sinus rhythm with first-degree AV block, left ventricular hypertrophy, left atrial enlargement, prolonged QT interval, rate of 76, RI interval 216, QRS duration [address] segment elevation. Medical Decision Making - Medical Decision Making 28-year-old female with end-stage renal disease presenting with fluid overload. Patient is found to be hyperkalemic at 6.2. Other electrolytes are within normal limits. EKG shows sinus rhythm, no bradycardia. Patient will be admitted for urgent hemodialysis. Case is discussed with the covering self sealing fuel tank builder Dr. Martins. Chest x-ray showing cardiomegaly, no pulmonary vascular congestion, no focal pneumonia - Lab Data Result diagrams: 06/18/19 05:35 06/18/19 05:35 Lab Results 06/18/19 06/18/19 06/18/19 Range/Units 05:35 05:35 05:35 WBC 5.5 (3.8-10.6) k/uL RBC 3.47 L (3.80-5.40) m/uL Hgb 10.8 L (11.4-16.0) gm/dL Hct 34.4 (34.0-46.0) % MCV 99.2 (80.0-100.0) fL MCH 31.0 (25.0-35.0) pg MCHC 31.3 (31.0-37.0) g/dL RDW 18.4 H (11.5-15.5) % Plt Count 199 (150-450) k/uL Neutrophils % 68 % Lymphocytes % 16 % Monocytes % 8 % Eosinophils % 3 % Basophils % 3 % Neutrophils # 3.8 (1.3-7.7) k/uL Lymphocytes # 0.9 L (1.0-4.8) k/uL Monocytes # 0.4 (0-1.0) k/uL Eosinophils # 0.2 (0-0.7) k/uL Basophils # 0.2 (0-0.2) k/uL Hypochromasia Marked Anisocytosis Slight Macrocytosis Slight PT 13.1 H (9.0-12.0) sec INR 1.3 H (<1.2) APTT 24.5 (22.0-30.0) sec Sodium 138 (137-145) mmol/L Potassium 6.2 H* (3.5-5.1) mmol/L Chloride 101 (98-107) mmol/L Carbon Dioxide 25 (22-30) mmol/L Anion Gap 12 mmol/L BUN 54 H (7-17) mg/dL Creatinine 8.14 H* (0.52-1.04) mg/dL Est GFR (CKD-EPI)AfAm 7 (>60 ml/min/1.73 sqM) Est GFR (CKD-EPI)NonAf 6 (>60 ml/min/1.73 sqM) Glucose 100 H (74-99) mg/dL Calcium 8.5 (8.4-10.2) mg/dL Magnesium 2.0 (1.6-2.3) mg/dL Total Bilirubin 0.9 (0.2-1.3) mg/dL AST 56 H (14-36) U/L ALT 59 H (9-52) U/L Alkaline Phosphatase 73 (38-126) U/L Total Protein 6.4 (6.3-8.2) g/dL Albumin 3.4 L (3.5-5.0) g/dL Critical Care Time Critical Care Time: Yes Total Critical Care Time: 35 Disposition Clinical Impression: Fluid overload, Hyperkalemia Disposition: ADMITTED IP TO THIS [facility] Condition: Stable Is patient prescribed a controlled substance at d/c from ED?: No Referrals: Mary Baez MD [Primary Care Provider] - 1-2 days Decision to Admit Reason: Admit from EC Decision Date: 06/18/19 Decision Time: 06:31
--- NOTE | 2019-06-18 05:58 | XR ---
EXAM: XR Chest, 2 Views CLINICAL HISTORY: Dyspnea. TECHNIQUE: Frontal and lateral views of the chest. COMPARISON: 06/10/2019. FINDINGS: Lungs: Unremarkable. No consolidation. Pleural space: No pleural effusions. No pneumothorax. Heart: There is marked cardiomegaly, similar to that noted on the previous study. Mediastinum: Unremarkable. Bones/joints: Osseous structures are unremarkable. Very gentle levoscoliosis of the thoracic spine. Other findings: There is mild hypoaeration. IMPRESSION: Hypoaeration. Cardiomegaly. Findings are similar to the previous study of 06/10/2019 and require clinical correlation.
[2019-06-18 06:07] LABS: Albumin 3.4 g/dL (3.5-5.0); Calcium 8.5 mg/dL (8.4-10.2); Total Bilirubin 0.9 mg/dL (0.2-1.3); Total Protein 6.4 g/dL (6.3-8.2)
[2019-06-18 06:12] LABS: Potassium 6.2 mmol/L (3.5-5.1)
[2019-06-18 06:18] LABS: Anisocytosis Slight; Basophils # (A) 0.2 k/uL (0-0.2); Basophils % (A) 3 %; Eosinophils # (A) 0.2 k/uL (0-0.7); Eosinophils % (A) 3 %; HCT 34.4 % (34.0-46.0); HGB 10.8 gm/dL (11.4-16.0); Hypochromasia Marked; Lymphocytes # (A) 0.9 k/uL (1.0-4.8); Lymphocytes % (A) 16 %; MCHC 31.3 g/dL (31.0-37.0); MCV 99.2 fL (80.0-100.0); Macrocytosis Slight; Mean Platelet Volume 6.9; Monocytes # (A) 0.4 k/uL (0-1.0); Monocytes % (A) 8 %; Neutrophils # (A) 3.8 k/uL (1.3-7.7); Neutrophils % (A) 68 %; Platelet Count 199 k/uL (150-450); RBC 3.47 m/uL (3.80-5.40); RDW 18.4 % (11.5-15.5); WBC 5.5 k/uL (3.8-10.6)
[2019-06-18 06:21] LABS: INR 1.3 (<1.2); Partial Thromboplastin Time 24.5 sec (22.0-30.0); Prothrombin Time 13.1 sec (9.0-12.0)
[2019-06-18] MEDS ORDERED: NALOXONE 0.4 MG/ML 1 ML VIAL IV PRN (06:26)
[2019-06-18 08:17] VITALS: BMI 22.6
[2019-06-18 09:51] VITALS: RESP 18
--- NOTE | 2019-06-18 10:10 | P.NPCON ---
History of Present Illness - Reason for Consult Consult date: 06/18/19 end stage renal disease - Chief Complaint Shortness of breath - History of Present Illness This is a 28-year-old female with ESRD on dialysis Wednesday was a Wednesday who came in to the emergency room because of shortness of breath. During her last dialysis here on Wednesday 2 days ago she had 3.5 L ultrafiltrate without any complications. She denies any fever chills cough. She is currently on dialysis and we're attempting ultrafiltration of 4 L O2 hours of dialysis. 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 Past Anesthesia/Blood Transfusion Reactions: No Reported Reaction Additional Past Anesthesia/Blood Transfusion Reaction / Comment(s): Pt has received blood in past without reaction. Past Psychological History: Anxiety, Depression Additional Psychological History / Comment(s): Pt resides with family. She is independent. She drives. She is disabled. She states she has anxiety and depression but no suicidal thoughts/ idealations or plans. She had one suicide attempt with overdose in 2012. Smoking Status: Former smoker Past Alcohol Use History: None Reported Additional Past Alcohol Use History / Comment(s): Pt states she started smoking socially as a teen and quit smoking in 2015. Past Drug Use History: None Reported - Past Family History Father Family Medical History: No Reported History Additional Family Medical History / Comment(s): Father is healthy and is 62 yrs old. Mother Family Medical History: No Reported History Additional Family Medical History / Comment(s): Mother is healthy and is 60 yrs old. Medications and Allergies Home Medications Medication Instructions Recorded Confirmed Type Albuterol Sulfate [Proair Hfa] 2 puff INHALATION RT-Q6H PRN 01/22/16 06/18/19 History Calcium Acetate [PhosLo] 1,334 mg PO AC-TID 05/01/18 06/18/19 History Carvedilol [Coreg] 25 mg PO BID 05/28/18 06/18/19 History predniSONE 10 mg PO DAILY 05/28/18 06/18/19 History hydrALAZINE HCL [Apresoline] 100 mg PO TID 11/16/18 06/18/19 History Cinacalcet HCl [Sensipar] 60 mg PO TUTHSA 02/26/19 06/18/19 History Ondansetron Odt [Zofran ODT] 8 mg PO Q8HR PRN #30 tab 05/02/19 06/18/19 Rx Pantoprazole [Protonix] 40 mg PO AC-BRKFST #30 tablet. 05/02/19 06/18/19 Rx ALPRAZolam [Xanax] 1 mg PO HS PRN 05/24/19 06/18/19 History Lidocaine-Prilocaine Cream [Emla 1 applic TOPICAL DAILY PRN 05/24/19 06/18/19 History Cream 2.5%/2.5%] traZODone HCL [Desyrel] 50 mg PO HS 05/24/19 06/18/19 History Acetaminophen Tab [Tylenol] 650 mg PO Q6H PRN 06/10/19 06/18/19 History Budesonide/Formoterol Fumarate 2 puff INHALATION RT-BID 06/10/19 06/18/19 Hist ory [Symbicort 80-4.5 Mcg Inhaler] NIFEdipine [Procardia XL] 60 mg PO DAILY 06/10/19 06/18/19 History Allergies Allergy/AdvReac Type Severity Reaction Status Date / Time hydralazine AdvReac Rapid Verified 06/18/19 08:29 Heart Rate WHEN GIVEN THROUGH IV Physical Exam Vitals: Vital Signs Temp Pulse Pulse Resp BP BP Pulse Ox 06/18/19 08:00 98 F 77 18 149/106 98 06/18/19 06:57 98.0 F 80 16 135/98 99 06/18/19 05:43 16 06/18/19 05:07 97.4 F L 70 20 143/99 98 Intake and Output 06/17/19 06/18/19 06/18/19 22:59 06:59 14:59 Other: Weight 56.291 kg On examination she is awake alert oriented, currently on room air and comfortable HEENT exam no JVP neck is supple no facial asymmetry Lungs are clear to auscultation good air entry bilaterally A chest x-ray was consistent with cardiomegaly no obvious pulmonary edema noted Heart sounds are unremarkable for any murmur rub gallop Abdomen soft, right upper quadrant tenderness may be liver edge which is soft is palpable. Extremity exam reveals no edema Neurologically awake alert oriented Results - Lab Results Most recent lab results Calcium 8.5 mg/dL (8.4-10.2) 06/18/19 05:35 Magnesium 2.0 mg/dL (1.6-2.3) 06/18/19 05:35 06/18/19 05:35 06/18/19 05:35 Assessment and Plan Assessment: Impression 1. ESRD secondary to polycystic kidney disease, on dialysis Wednesday 2. Admitted with congestive heart failure although the chest x-ray is not very suggestive but she is short of breath. 3. History of nonischemic cardiomyopathy ejection fraction 35-40%. 4. Noncompliance with fluid gains 5. Noncompliance with potassium restriction potassium is 6.2, within 48 hours of dialysis. Recommendation 1. She is getting dialyzed today, attempting 4 L ultrafiltration or 2 hours if tolerated. We have her on a 2K bath. 2. Patient to be discharged after dialysis and she can follow-up with her outpatient dialysis unit tomorrow Wednesday her regular scheduled dialysis
[2019-06-18] MEDS ORDERED: ALBUTEROL NEBULIZED 2.5 MG/3 ML INHALATION PRN (11:40)
[2019-06-18] MEDS ORDERED: ONDANSETRON ODT 8 MG TAB.RAPDIS PO PRN (11:40)
[2019-06-18] MEDS ORDERED: ACETAMINOPHEN TAB 325 MG TAB PO PRN (11:40)
[2019-06-18] MEDS ORDERED: LIDOCAINE-PRILOCAINE 2.5-2.5% CREAM 5 GM TUBE TOPICAL PRN (11:40)
[2019-06-18] MEDS ORDERED: predniSONE 10 MG TAB PO SCH (11:45)
[2019-06-18] MEDS ORDERED: PANTOPRAZOLE 40 MG TABLET PO SCH (11:45)
[2019-06-18] MEDS: CALCIUM ACETATE 667 MG TAB PO SCH ×2 (12:14→17:47)
[2019-06-18] MEDS: ALPRAZolam 1 MG TAB PO PRN ×2 (12:18→20:40)
[2019-06-18] MEDS: hydrALAZINE HCL 50 MG TAB PO SCH ×2 (16:17→20:40)
[2019-06-18 16:35] VITALS: BP 181/101; PULSE 89; TEMP 97.7
[2019-06-18] MEDS ORDERED: ALPRAZolam 1 MG TAB PO STA (18:00)
--- NOTE | 2019-06-18 18:20 | P.HPIM ---
History of Present Illness H&P Date: 06/18/19 Chief Complaint: Shortness of breath Patient is a 28 old female with known history of ESRD on hemodialysis Wednesday and Wednesday, last hemanalysis on Wednesday with 2.5 L of ultrafiltration, polycystic kidney disease, failed renal transplant, chronic anemia and nonischemic cardiomyopathy ejection fraction 35-40% and also asthma came to ER with complaints of shortness of breath and fluid overload. Patient felt some heaviness in the chest as well. No chest pain. No headache or dizziness or lightheadedness. No fever no chills. No cough or sputum production. \ potassium 6.2, BUn and 54 and creatinine 6.84 Chest x-ray showed hypoinflation. Cardiomegaly. Findings are similar to the previous study of 06/10/2019 and requires clinical correlation. Patient is undergoing hemodialysis today. Review of Systems Constitutional: Patient denies any fever or chills . No generalized weakness or weight loss. Abdomen: Patient denied nausea vomiting and diarrhea and abdominal pain. Cardiovascular: Patient denies any chest pain or short of breath no palpitations. Respiratory: Denied any cough or sputum production. Patient does have shortness of breath Neurologic: Patient denied any numbness or tingling headache. Musculoskeletal: Patient denies any complaints of joint swelling or deformity. Skin: Negative Psychiatric: Negative Endocrine: No heat or cold intolerance. No recent weight gain. Genitourinary: No dysuria or hematuria. 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 Past Anesthesia/Blood Transfusion Reactions: No Reported Reaction Additional Past Anesthesia/Blood Transfusion Reaction / Comment(s): Pt has received blood in past without reaction. Past Psychological History: Anxiety, Depression Additional Psychological History / Comment(s): Pt resides with family. She is independent. She drives. She is disabled. She states she has anxiety and depression but no suicidal thoughts/ idealations or plans. She had one suicide attempt with overdose in 2012. Smoking Status: Former smoker Past Alcohol Use History: None Reported Additional Past Alcohol Use History / Comment(s): Pt states she started smoking socially as a teen and quit smoking in 2015. Past Drug Use History: None Reported - Past Family History Father Family Medical History: No Reported History Additional Family Medical History / Comment(s): Father is healthy and is 62 yrs old. Mother Family Medical History: No Reported History Additional Family Medical History / Comment(s): Mother is healthy and is 60 yrs old. Medications and Allergies Home Medications Medication Instructions Recorded Confirmed Type Albuterol Sulfate [Proair Hfa] 2 puff INHALATION RT-Q6H PRN 01/22/16 06/18/19 History Calcium Acetate [PhosLo] 1,334 mg PO AC-TID 05/01/18 06/18/19 History Carvedilol [Coreg] 25 mg PO BID 05/28/18 06/18/19 History predniSONE 10 mg PO DAILY 05/28/18 06/18/19 History hydrALAZINE HCL [Apresoline] 100 mg PO TID 11/16/18 06/18/19 History Cinacalcet HCl [Sensipar] 60 mg PO TUTHSA 02/26/19 06/18/19 History Ondansetron Odt [Zofran ODT] 8 mg PO Q8HR PRN #30 tab 05/02/19 06/18/19 Rx Pantoprazole [Protonix] 40 mg PO AC-BRKFST #30 tablet.dr 05/02/19 06/18/19 Rx ALPRAZolam [Xanax] 1 mg PO HS PRN 05/24/19 06/18/19 History Lidocaine-Prilocaine Cream [Emla 1 applic TOPICAL DAILY PRN 05/24/19 06/18/19 History Cream 2.5%/2.5%] traZODone HCL [Desyrel] 50 mg PO HS 05/24/19 06/18/19 History Acetaminophen Tab [Tylenol] 650 mg PO Q6H PRN 06/10/19 06/18/19 History Budesonide/Formoterol Fumarate 2 puff INHALATION RT-BID 06/10/19 06/18/19 History [Symbicort 80-4.5 Mcg Inhaler] NIFEdipine [Procardia XL] 60 mg PO DAILY 06/10/19 06/18/19 History Allergies Allergy/AdvReac Type Severity Reaction Status Date / Time hydralazine AdvReac Rapid Verified 06/18/19 08:29 Heart Rate WHEN GIVEN THROUGH IV Physical Exam Vitals: Vital Signs Temp Pulse Pulse Resp BP BP BP 06/18/19 11:22 97.9 F 74 18 155/102 06/18/19 08:00 98 F 77 18 149/106 06/18/19 06:57 98.0 F 80 16 135/98 06/18/19 05:43 16 06/18/19 05:07 97.4 F L 70 20 143/99 Pulse Ox 06/18/19 11:22 06/18/19 08:00 98 06/18/19 06:57 99 06/18/19 05:43 06/18/19 05:07 98 Intake and Output 06/17/19 06/18/19 06/18/19 22:59 06:59 14:59 Output Total 3500 Balance -3500 Output: Hemodialysis 3500 Other: Weight 56.291 kg PHYSICAL EXAMINATION: Patient is lying in the bed comfortably, no acute distress, awake alert and oriented.. HEENT: Normocephalic. Neck is supple. Pupils reactive. Nostrils clear. Oral cavity is moist. Ears reveal no drainage. Neck reveals no JVD, carotid bruits, or thyromegaly. CHEST EXAMINATION: Trachea is central. Symmetrical expansion. Bibasilar diminished air entry and mild expiratory wheeze on the right side.. CARDIAC: Normal S1, S2 with no gallops. No murmurs ABDOMEN: Soft. Bowel sounds normal. No organomegaly. No abdominal bruits. Extremities: Trace edema. No clubbing or cyanosis Neurologically awake, alert, oriented x3 with well-coordinated movements. No focal deficits noted Skin: No rash or skin lesions. Psychiatric: Coperative. Nonsuicidal Musculoskeletal: No joint swelling or deformity. Normal range of motion. Results CBC & Chem 7: 06/18/19 05:35 06/18/19 05:35 Labs: Abnormal Lab Results - Last 24 Hours (Table) 06/18/19 06/18/19 06/18/19 Range/Units 05:35 05:35 05:35 RBC 3.47 L (3.80-5.40) m/uL Hgb 10.8 L (11.4-16.0) gm/dL RDW 18.4 H (11.5-15.5) % Lymphocytes # 0.9 L (1.0-4.8) k/uL PT 13.1 H (9.0-12.0) sec INR 1.3 H (<1.2) Potassium 6.2 H* (3.5-5.1) mmol/L BUN 54 H (7-17) mg/dL Creatinine 8.14 H* (0.52-1.04) mg/dL Glucose 100 H (74-99) mg/dL AST 56 H (14-36) U/L ALT 59 H (9-52) U/L Albumin 3.4 L (3.5-5.0) g/dL Thrombosis Risk Factor Assmnt - DVT/VTE Prophylaxis DVT/VTE Prophylaxis: Pharmacologic Prophylaxis ordered - Choose All That Apply Any of the Below Risk Factors Present?: No Assessment and Plan Assessment: Fluid overload due to ESRD Hyperkalemia potassium 6.2 on admission ESRD on hemodialysis Wednesday and Wednesday. History of cystic kidney disease Nonischemic cardiomyopathy ejection fraction 35-40% Asthma Noncompliance with hemodialysis Hypertension History of failed renal transplant Anemia of chronic disease and metabolic bone disease Chronic low back pain Vitamin D deficiency Previous history of smoking DVT prophylaxis with heparin subcu Plan: Patient is currently undergoing hemodialysis and will repeat potassium level. Continue with home medications and albuterol inhalations as needed. Monitor lites and follow closely. Nephrology is on board. Further recommendations based on the clinical course. Anticipate discharge in next 24 hours. Time with Patient: Greater than 30
[2019-06-18] MEDS ORDERED: SYMBICORT 80-4.5 MCG INHALER INHALATION SCH (20:00)
[2019-06-18] MEDS ORDERED: CARVEDILOL 12.5 MG TAB PO SCH (21:00)
[2019-06-18] MEDS ORDERED: HEPARIN SODIUM,PORCINE 5,000 UNIT/ML 1 ML VIAL SQ SCH (21:00)
[2019-06-18] MEDS ORDERED: traZODone HCL 50 MG TAB PO SCH (21:00)
[2019-06-20] MEDS ORDERED: CINACALCET 30 MG TAB PO SCH (09:00)
--- NOTE | 2019-06-22 10:36 | CDI ---
Documentation Clarification Form Date: 06/22/2019 10:13:21 AM From: Balbina Collier Phone: If you have a question about this query, please contact Siria Valdez Loan Consultant at [phone] between 8am and 5pm. Admit Date: 06/18/2019 6:26:00 AM Patient Name: Rosi Winslow Visit Number: [id number] Discharge Date: 06/18/2019 9:13:00 PM ATTENTION: The Clinical Documentation Specialists (CDI) and [facility] Coding Staff appreciate your assistance in clarifying documentation. Please respond to the clarification below the line at the bottom and electronically sign. The CDI & [facility] Coding staff will review the response and follow-up if needed. Please note: Queries are made part of the Legal Health Record. If you have any questions, please contact the author of this message via ITS. Dr. Hasmukh Josue CHF is documented in the [facility] "heart failure". Fluid overload. Nephrology consult documents "Admitted with CHF although the CXR is not very suggestive, but she is short of breath." History/Risk Factors: ESRD, polycystic kidney, HTN, heart failure, Clinical Indicators: fluid overload VS: 97.4 F 70 bpm, - 80 bpm, 20, 143/99 98% RA BNP: 14,900 Chest X Ray: Cardiomegaly Treatment: Dialysis In your professional opinion, can you please clarify if patient had CHF and if so please clarify acuity and type of CHF: Systolic Heart Failure: Acute Chronic Acute on Chronic Diastolic Heart Failure: Acute Chronic Acute on Chronic Systolic & Diastolic Heart Failure: Acute Chronic Acute on Chronic Heart Failure Unable to Determine Other, please specify Acute on Chronic Diastolic Heart Failure MTDD
== END 2019-06-18 21:13 | disposition left against medical advice (07) | DRG 291 ==
LOC: EC 04:59 → 3SCARD 06:26
PROVIDERS: ADMIT Hospitalist; ATTEND Hospitalist
PROC: 5A1D70Z Performance of Urinary Filtration, Intermittent, Less than 6 Hours Per Day (ICD-10-PCS; principal; 2019-06-18)
DX: I13.2 Hypertensive heart and chronic kidney disease with heart failure and with stage 5 chronic kidney disease, or end stage renal disease (principal); N18.6 End stage renal disease; I50.33 Acute on chronic diastolic (congestive) heart failure; Q61.3 Polycystic kidney, unspecified; T86.12 Kidney transplant failure; E87.70 Fluid overload, unspecified; I42.8 Other cardiomyopathies; D63.8 Anemia in other chronic diseases classified elsewhere; E55.9 Vitamin D deficiency, unspecified; E87.5 Hyperkalemia; E88.89 Other specified metabolic disorders; Z87.891 Personal history of nicotine dependence; F32.9 Major depressive disorder, single episode, unspecified; F41.9 Anxiety disorder, unspecified; G89.29 Other chronic pain; I34.0 Nonrheumatic mitral (valve) insufficiency; I50.9 Heart failure, unspecified; J45.909 Unspecified asthma, uncomplicated; Z79.51 Long term (current) use of inhaled steroids; Z79.899 Other long term (current) drug therapy; Z91.15 Patient's noncompliance with renal dialysis; Z91.19 Patient's noncompliance with other medical treatment and regimen; Z91.5 Personal history of self-harm; Z99.2 Dependence on renal dialysis; M54.5 Low back pain; N83.209 Unspecified ovarian cyst, unspecified side
CPT/HCPCS: 36415; 71046; 80053; 83735; 83880; 85025; 85610; 85730; 90935; 93005; 94640; 99291

== ENCOUNTER 2019-07-03 07:42 | Inpatient (IN) | payer BC, MEDICARE, OTHER ==
[2019-07-03] MEDS ORDERED: LABETALOL 5 MG/ML VIAL MDV IVP STA (08:01)
--- NOTE | 2019-07-03 08:05 | ED ---
General Adult HPI - General Chief complaint: Shortness of Breath Stated complaint: SOB Source: patient, RN notes reviewed, old records reviewed Mode of arrival: wheelchair Limitations: no limitations - History of Present Illness Initial comments: This is a 28-year-old female with a past medical history significant for renal failure. Patient comes in today because she states all night long she's been short of breath. Patient states the shortness of breath was worse this morning and she was supposed to go for dialysis later today but she couldn't wait. Patient states she has been breathing so hard that her upper back is hurting her at this time. Patient states she did not take any of her blood pressure medication. She denies any chest pain or palpitations. Patient denies any recent fever chills or cough. Patient states she is more swollen than normal in her thighs abdomen and face. Patient denies any abdominal pain patient denies any nausea or vomiting. - Related Data Home Medications Medication Instructions Recorded Confirmed Albuterol Sulfate [Proair Hfa] 2 puff INHALATION RT-Q6H PRN 01/22/16 06/18/19 Calcium Acetate [PhosLo] 1,334 mg PO AC-TID 05/01/18 06/18/19 Carvedilol [Coreg] 25 mg PO BID 05/28/18 06/18/19 predniSONE 10 mg PO DAILY 05/28/18 06/18/19 hydrALAZINE HCL [Apresoline] 100 mg PO TID 11/16/18 06/18/19 Cinacalcet HCl [Sensipar] 60 mg PO TUTHSA 02/26/19 06/18/19 ALPRAZolam [Xanax] 1 mg PO HS PRN 05/24/19 06/18/19 Lidocaine-Prilocaine Cream [Emla 1 applic TOPICAL DAILY PRN 05/24/19 06/18/19 Cream 2.5%/2.5%] traZODone HCL [Desyrel] 50 mg PO HS 05/24/19 06/18/19 Acetaminophen Tab [Tylenol] 650 mg PO Q6H PRN 06/10/19 06/18/19 Budesonide/Formoterol Fumarate 2 puff INHALATION RT-BID 06/10/19 06/18/19 [Symbicort 80-4.5 Mcg Inhaler] NIFEdipine [Procardia XL] 60 mg PO DAILY 06/10/19 06/18/19 Previous Rx's Medication Instructions Recorded Ondansetron Odt [Zofran ODT] 8 mg PO Q8HR PRN #30 tab 05/02/19 Pantoprazole [Protonix] 40 mg PO AC-BRKFST #30 tablet. 05/02/19 Allergies Allergy/AdvReac Type Severity Reaction Status Date / Time hydralazine AdvReac Rapid Verified 07/03/19 07:44 Heart Rate WHEN GIVEN THROUGH IV Review of Systems ROS Statement: Those systems with pertinent positive or pertinent negative responses have been documented in the HPI. ROS Other: All systems not noted in ROS Statement are negative. 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 Past Anesthesia/Blood Transfusion Reactions: No Reported Reaction Additional Past Anesthesia/Blood Transfusion Reaction / Comment(s): Pt has received blood in past without reaction. Past Psychological History: Anxiety, Depression Smoking Status: Former smoker Past Alcohol Use History: None Reported Past Drug Use History: None Reported - Past Family History Father Family Medical History: No Reported History Additional Family Medical History / Comment(s): Father is healthy and is 62 yrs old. Mother Family Medical History: No Reported History Additional Family Medical History / Comment(s): Mother is healthy and is 60 yrs old. General Exam - General Exam Comments Initial Comments: GENERAL: Patient is well-developed and well-nourished. Patient is nontoxic and well- hydrated and is in mild distress. ENT: Neck is soft and supple. No significant lymphadenopathy is noted. Oropharynx is clear. Moist mucous membranes. Neck has full range of motion without eliciting any pain. EYES: The sclera were anicteric and conjunctiva were pink and moist. Extraocular movements were intact and pupils were equal round and reactive to light. Eyelids were unremarkable. PULMONARY: Unlabored respirations. Good breath sounds bilaterally. No audible rales rhonchi or wheezing was noted. CARDIOVASCULAR: There is a regular rate and rhythm without any murmurs gallops or rubs. ABDOMEN: Soft and nontender with normal bowel sounds. SKIN: Skin is clear with no lesions or rashes and otherwise unremarkable. NEUROLOGIC: Patient is alert and oriented x3. Cranial nerves II through XII are grossly intact. Motor and sensory are also intact. Normal speech, volume and content. Symmetrical smile. MUSCULOSKELETAL: Normal extremities with adequate strength and full range of motion. 1+ edema in the ankles LYMPHATICS: No significant lymphadenopathy is noted PSYCHIATRIC: Normal psychiatric evaluation. Limitations: no limitations Course Vital Signs 07/03/19 07/03/19 07:44 07:55 Temperature 97.3 F L Pulse Rate 98 Respiratory 18 22 Rate Blood Pressure 173/103 O2 Sat by Pulse 94 L Oximetry Medical Decision Making - Medical Decision Making EKG shows sinus tachycardia at 101 bpm IA interval is 212 QRS is 94 QT interval 370 QTC is 490. Patient's EKG shows no ST segment elevation or depression or T wave abnormalities are noted. Patient's potassium was about 7 psychiatric the patient D50 plus insulin as well as bicarbonate and calcium chloride and they also gave the patient albuterol treatment. I spoke with Dr. gay and he will be setting up dialysis on the patient. I spoke with the [facility] hospitalist I admitted the patient I wrote admitting orders. I will back into the room to reevaluate the patient and she was in no respiratory distress but was having some anxiety. - Lab Data Result diagrams: 07/03/19 08:40 07/03/19 08:40 Lab Results 07/03/19 07/03/19 07/03/19 Range/Units 08:40 08:40 08:40 WBC 5.6 (3.8-10.6) k/uL RBC 4.14 (3.80-5.40) m/uL Hgb 12.6 (11.4-16.0) gm/dL Hct 40.4 (34.0-46.0) % MCV 97.8 (80.0-100.0) fL MCH 30.5 (25.0-35.0) pg MCHC 31.2 (31.0-37.0) g/dL RDW 18.6 H (11.5-15.5) % Plt Count 205 (150-450) k/uL Neutrophils % 60 % Lymphocytes % 27 % Monocytes % 4 % Eosinophils % 5 % Basophils % 1 % Neutrophils # 3.4 (1.3-7.7) k/uL Lymphocytes # 1.5 (1.0-4.8) k/uL Monocytes # 0.2 (0-1.0) k/uL Eosinophils # 0.3 (0-0.7) k/uL Basophils # 0.1 (0-0.2) k/uL Hypochromasia Moderate Anisocytosis Slight Macrocytosis Slight PT 13.4 H (9.0-12.0) sec INR 1.3 H (<1.2) APTT 25.2 (22.0-30.0) sec Sodium 130 L (137-145) mmol/L Potassium 7.2 H* (3.5-5.1) mmol/L Chloride 94 L (98-107) mmol/L Carbon Dioxide 16 L (22-30) mmol/L Anion Gap 20 mmol/L BUN 70 H (7-17) mg/dL Creatinine 10.80 H* (0.52-1.04) mg/dL Est GFR (CKD-EPI)AfAm 5 (>60 ml/min/1.73 sqM) Est GFR (CKD-EPI)NonAf 4 (>60 ml/min/1.73 sqM) Glucose 72 L (74-99) mg/dL Calcium 9.5 (8.4-10.2) mg/dL Total Bilirubin 1.8 H (0.2-1.3) mg/dL AST 67 H (14-36) U/L ALT 42 (9-52) U/L Alkaline Phosphatase 74 (38-126) U/L Total Protein 7.3 (6.3-8.2) g/dL Albumin 4.0 (3.5-5.0) g/dL Disposition Clinical Impression: Renal failure, Dyspnea, Hyperkalemia Disposition: ADMITTED IP TO THIS [facility] Time of Disposition: 09:21
[2019-07-03 08:56] LABS: Anisocytosis Slight; Basophils # (A) 0.1 k/uL (0-0.2); Basophils % (A) 1 %; Eosinophils # (A) 0.3 k/uL (0-0.7); Eosinophils % (A) 5 %; HCT 40.4 % (34.0-46.0); HGB 12.6 gm/dL (11.4-16.0); Hypochromasia Moderate; Lymphocytes # (A) 1.5 k/uL (1.0-4.8); Lymphocytes % (A) 27 %; MCH 30.5 pg (25.0-35.0); MCHC 31.2 g/dL (31.0-37.0); MCV 97.8 fL (80.0-100.0); Macrocytosis Slight; Mean Platelet Volume 6.9; Monocytes # (A) 0.2 k/uL (0-1.0); Monocytes % (A) 4 %; Neutrophils # (A) 3.4 k/uL (1.3-7.7); Neutrophils % (A) 60 %; Platelet Count 205 k/uL (150-450); RBC 4.14 m/uL (3.80-5.40); RDW 18.6 % (11.5-15.5); WBC 5.6 k/uL (3.8-10.6)
[2019-07-03 08:58] LABS: Calcium 9.5 mg/dL (8.4-10.2); Total Bilirubin 1.8 mg/dL (0.2-1.3); Total Protein 7.3 g/dL (6.3-8.2)
[2019-07-03 09:06] LABS: Potassium 7.2 mmol/L (3.5-5.1)
[2019-07-03] MEDS ORDERED: CALCIUM CHLORIDE 100 MG/ML 10 ML SYRINGE IVP STA (09:06)
[2019-07-03] MEDS ORDERED: INSULIN REGULAR 100 UNIT/ML VIAL IV ONE (09:07)
[2019-07-03] MEDS ORDERED: DEXTROSE 50% SYRINGE 50 ML IVP STA (09:07)
[2019-07-03] MEDS ORDERED: IPRATROPIUM-ALBUTEROL 3 ML NEB INHALATION STA (09:08)
[2019-07-03] MEDS ORDERED: SODIUM BICARB 8.4% 50 ML SYR (1 MEQ/ML) IV STA (09:08)
[2019-07-03 09:13] LABS: INR 1.3 (<1.2); Partial Thromboplastin Time 25.2 sec (22.0-30.0); Prothrombin Time 13.4 sec (9.0-12.0)
--- NOTE | 2019-07-03 09:42 | XR ---
EXAMINATION TYPE: XR chest 1V DATE OF EXAM: 07/03/2019 COMPARISON: 06/18/2019 HISTORY: Difficulty breathing TECHNIQUE: Single frontal view of the chest is obtained. FINDINGS: There is global cardiomegaly although stable from the prior of 06/18/2019. Hazy right midd le lobe opacity is subtle and may represent atelectasis or early developing pneumonia. Remainder the lungs are clear. No sizable pneumothorax or pleural effusion. IMPRESSION: Marked cardiomegaly although stable from the prior of 06/18/2019. Vague right middle lob e opacity could represent atelectasis or developing pneumonia.
[2019-07-03 11:34] LABS: Glucose,Whole Blood 73 mg/dL (75-99)
[2019-07-03 11:52] LABS: Glucose,Whole Blood 69 mg/dL (75-99)
[2019-07-03 12:12] LABS: Glucose,Whole Blood 62 mg/dL (75-99)
[2019-07-03 12:31] LABS: Glucose,Whole Blood 103 mg/dL (75-99)
[2019-07-03] MEDS ORDERED: DEXTROSE 10 % IN WATER 250 ML IV ONE (12:40)
[2019-07-03] MEDS ORDERED: ALPRAZolam 0.25 MG TAB PO PRN (12:57)
[2019-07-03] MEDS ORDERED: traZODone HCL 50 MG TAB PO PRN (12:57)
[2019-07-03] MEDS ORDERED: ONDANSETRON ODT 8 MG TAB.RAPDIS PO PRN (12:57)
[2019-07-03] MEDS ORDERED: ACETAMINOPHEN TAB 325 MG TAB PO PRN (12:57)
[2019-07-03] MEDS: hydrALAZINE HCL 50 MG TAB PO SCH ×2 (13:07→21:28)
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
--- NOTE | 2019-07-03 17:27 | NM ---
EXAMINATION TYPE: NM pul vent and perfuse DATE OF EXAM: 07/03/2019 COMPARISON: Chest x-ray the same date HISTORY: Elevated d-dimer. TECHNIQUE: Utilizing inhalation of 37.8 mCi Tc 99m DTPA aerosol and intravenous injection of 5.17 mC i of Tc 99m MAA, ventilation and perfusion images are acquired post injection in multiple projections . FINDINGS: Normal radiotracer distribution is noted in the lungs on perfusion images with marginal uptake throug hout the lungs in ventilation images. Marked cardiomegaly is again noted. There is no evidence of mis matched defects. IMPRESSION: Low probability for pulmonary embolus. Marked cardiomegaly is again seen and patchy uptake on ventila tion images suggesting airway disease.
[2019-07-03] MEDS: PANTOPRAZOLE 40 MG TABLET PO SCH (17:48)
[2019-07-03] MEDS: predniSONE 10 MG TAB PO SCH (17:48)
[2019-07-03] MEDS: CARVEDILOL 12.5 MG TAB PO SCH (17:50)
[2019-07-03] MEDS: CALCIUM ACETATE 667 MG TAB PO SCH (17:50)
[2019-07-03] MEDS ORDERED: HYDROcodone/APAP 5-325MG 1 EACH TAB PO PRN (21:02)
--- NOTE | 2019-07-03 21:50 | P.HPIM ---
History of Present Illness H&P Date: 07/03/19 Chief Complaint: SOB Ms. Winslow is a 28-year-old female with a past medical history of end-stage renal disease on hemodialysis, failed kidney transplant, congestive heart failure with ejection fraction of 35 to 40%, mild to moderate mitral valve regurgitation, chronic low back pain coming into the hospital with a chief complaint of difficulty in breathing. Patient states that she woke up with difficulty in breathing this morning. She is on hemodialysis on Wednesday, Wednesday and Wednesday. Her last dialysis session was on Wednesday. Patient denies having any chest pain. She was also having some nausea and diarrhea for the past 4 to 5 days. She also reports decreased p.o. intake. Patient denies having any fevers chills or riders. No dysuria or hematuria. She mentions that for the past couple of weeks, she has gained some weight. In the emergency room patient had labs done and her potassium was high at 7.2. So the patient was given a insulin, D50, calcium chloride and also bicarbonate. EKG was showing tachycardia with heart rate of 100 bpm, ME interval is 212 QRS is 94 QT interval 370 QTC is 490. She was admitted for further management with nephrology consult for emergent dialysis. Her BNP levels were high at 147,000 and troponin of 0.111. Review of Systems REVIEW OF SYSTEMS: PSYCH: No anxiety or depression NEURO:No c/o weakness of the extremties, No facial droop, No speech abnormalities. VASCULAR: no edema HEMATOLOGIC: No history of easy bleeding and bruising . No recent infections . RESPIRATORY: No cough, No SOB, No chest discomfort. IMMUNE: No infections INTEGUMENT: no rashes OPHTHALMOLOGIC: No blurry vision and no eye discharge : No dysuria or hematuria DIRECTIONAL DRILLER: No bleeding PV CARDIAC: No chest pain or paroxysmal nocturnal dyspnea MUSCULOSKELETAL : No Aches or pains in the joints or muscles. GI: No abdominal pain, Nausea or vomiting. No constipation or diarrhea. All 13 ROS done and negative except for ones mentioned above. 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 Past Anesthesia/Blood Transfusion Reactions: No Reported Reaction Additional Past Anesthesia/Blood Transfusion Reaction / Comment(s): Pt has received blood in past without reaction. Past Psychological History: Anxiety, Depression Smoking Status: Former smoker Past Alcohol Use History: None Reported Past Drug Use History: None Reported - Past Family History Father Family Medical History: No Reported History Additional Family Medical History / Comment(s): Father is healthy and is 62 yrs old. Mother Family Medical History: No Reported History Additional Family Medical History / Comment(s): Mother is healthy and is 60 yrs old. Medications and Allergies Home Medications Medication Instructions Recorded Confirmed Type Albuterol Sulfate [Proair Hfa] 2 puff INHALATION RT-Q6H PRN 01/22/16 07/03/19 History Calcium Acetate [PhosLo] 2,001 mg PO AC-TID 05/01/18 07/03/19 History Carvedilol [Coreg] 25 mg PO BID 05/28/18 07/03/19 History predniSONE 10 mg PO DAILY 05/28/18 07/03/19 History hydrALAZINE HCL [Apresoline] 100 mg PO TID 11/16/18 07/03/19 History Cinacalcet HCl [Sensipar] 60 mg PO TUTHSA 02/26/19 07/03/19 History Ondansetron Odt [Zofran ODT] 8 mg PO Q8HR PRN #30 tab 05/02/19 07/03/19 Rx Pantoprazole [Protonix] 40 mg PO AC-BRKFST #30 tablet.dr 05/02/19 07/03/19 Rx Lidocaine-Prilocaine Cream [Emla 1 applic TOPICAL DAILY PRN 05/24/19 07/03/19 History Cream 2.5%/2.5%] traZODone HCL [Desyrel] 50 mg PO HS PRN 05/24/19 07/03/19 History Acetaminophen Tab [Tylenol] 650 mg PO Q6H PRN 06/10/19 07/03/19 History NIFEdipine [Procardia XL] 60 mg PO DAILY 06/10/19 07/03/19 History ALPRAZolam [Xanax] 0.25 mg PO TID PRN 07/03/19 07/03/19 History Allergies Allergy/AdvReac Type Severity Reaction Status Date / Time hydralazine AdvReac Rapid Verified 07/03/19 09:44 Heart Rate WHEN GIVEN THROUGH IV Physical Exam Vitals: Vital Signs Temp Pulse Resp BP Pulse Ox 07/03/19 11:42 97.3 F L 91 18 154/117 100 07/03/19 10:11 91 18 154/117 100 07/03/19 10:08 83 07/03/19 10:02 82 07/03/19 09:12 168/102 07/03/19 07:55 22 07/03/19 07:44 97.3 F L 98 18 173/103 94 L Intake and Output 07/02/19 07/03/19 07/03/19 22:59 06:59 14:59 Intake Total 40 Balance 40 Intake: Amount of Fluid Infused ( 40 ml) Other: Weight 58.967 kg GEN. APPEARANCE: alert, in no apparent distress HEENT : Mild pallor, facial swelling RESPIRATORY EXAM: bilateral BS positive decreased at the lower lung bases. CARDIOVASCULAR EXAM: regular rate, normal rhythm, normal heart sounds. GI/ABDOMINAL EXAM: soft, normal bowel sounds. no distension. Mild abdominal wall edema EXTREMITIES EXAM: no edema NEUROLOGICAL EXAM: alert, oriented X3, no focal deficits PSYCHIATRIC EXAM: normal affect, normal mood SKIN EXAM: warm, dry, intact, normal color. Absent: rash Results CBC & Chem 7: 07/03/19 08:40 07/03/19 08:40 Labs: Abnormal Lab Results - Last 24 Hours (Table) 07/03/19 07/03/19 07/03/19 Range/Units 08:40 08:40 08:40 RDW 18.6 H (11.5-15.5) % PT 13.4 H (9.0-12.0) sec INR 1.3 H (<1.2) D-Dimer (<0.60) mg/L FEU Sodium 130 L (137-145) mmol/L Potassium 7.2 H* (3.5-5.1) mmol/L Chloride 94 L (98-107) mmol/L Carbon Dioxide 16 L (22-30) mmol/L BUN 70 H (7-17) mg/dL Creatinine 10.80 H* (0.52-1.04) mg/dL Glucose 72 L (74-99) mg/dL POC Glucose (mg/dL) (75-99) mg/dL Total Bilirubin 1.8 H (0.2-1.3) mg/dL AST 67 H (14-36) U/L Troponin I (0.000-0.034) ng/mL 07/03/19 07/03/19 07/03/19 Range/Units 08:40 08:40 11:33 RDW (11.5-15.5) % PT (9.0-12.0) sec INR (<1.2) D-Dimer 0.94 H (<0.60) mg/L FEU Sodium (137-145) mmol/L Potassium (3.5-5.1) mmol/L Chloride (98-107) mmol/L Carbon Dioxide (22-30) mmol/L BUN (7-17) mg/dL Creatinine (0.52-1.04) mg/dL Glucose (74-99) mg/dL POC Glucose (mg/dL) 73 L (75-99) mg/dL Total Bilirubin (0.2-1.3) mg/dL AST (14-36) U/L Troponin I 0.111 H* (0.000-0.034) ng/mL 07/03/19 07/03/19 07/03/19 Range/Units 11:51 12:10 12:30 RDW (11.5-15.5) % PT (9.0-12.0) sec INR (<1.2) D-Dimer (<0.60) mg/L FEU Sodium (137-145) mmol/L Potassium (3.5-5.1) mmol/L Chloride (98-107) mmol/L Carbon Dioxide (22-30) mmol/L BUN (7-17) mg/dL Creatinine (0.52-1.04) mg/dL Glucose (74-99) mg/dL POC Glucose (mg/dL) 69 L 62 L 103 H (75-99) mg/dL Total Bilirubin (0.2-1.3) mg/dL AST (14-36) U/L Troponin I (0.000-0.034) ng/mL Assessment and Plan Assessment: ASSESSMENT Shortness of breath -most probably due to fluid overload Hyperkalemia End-stage renal disease on hemodialysis on Wednesday, Wednesday and Wednesday Acute on chronic congestive heart failure Systolic congestive heart failure ejection fraction of 35 to 40% Severe tricuspid regurgitation Moderate mitral regurgitation Severe pulmonary hypertension Hypertension Failed renal transplant Chronic low back pain History of ovarian cysts Anemia of chronic disease Nonischemic cardiomyopathy Anxiety with depression PLAN: Patient is currently getting her dialysis done. Ordered a d-dimer due to acute shortness of breath which came back to be 0.94. So a VQ scan was done that was showing low probability for PE. Patient was restarted on all her home medications. Overall prognosis is guarded secondary to chronic multiple medical conditions. Further recommendations to follow depending on the progress of the patient.
[2019-07-03 22:12] LABS: Glucose,Whole Blood 129 mg/dL (75-99)
[2019-07-04] MEDS: CALCIUM ACETATE 667 MG TAB PO SCH ×2 (06:33→14:08)
[2019-07-04] MEDS: PANTOPRAZOLE 40 MG TABLET PO SCH (06:33)
[2019-07-04] MEDS: CARVEDILOL 12.5 MG TAB PO SCH (06:34)
[2019-07-04] MEDS ORDERED: CINACALCET 30 MG TAB PO SCH (09:00)
[2019-07-04] MEDS: predniSONE 10 MG TAB PO SCH (11:39)
[2019-07-04] MEDS: hydrALAZINE HCL 50 MG TAB PO SCH (11:39)
[2019-07-04 11:55] LABS: Potassium 5.5 mmol/L (3.5-5.1)
--- NOTE | 2019-07-04 13:40 | P.DS ---
Providers Date of admission: 07/03/19 09:25 Attending physician: Tanisha Gunter Consults: 07/03/19 09:25 Consult Physician Urgent Consulting Provider: Robin Thompson Consult Reason/Comments: Renal failure Do you want consulting provider notified?: Yes Primary care physician: Nestor Frias [facility] Course: 28-year-old female with a past medical history of end-stage renal disease on hemodialysis, failed kidney transplant, congestive heart failure with ejection fraction of 35 to 40%, mild to moderate mitral valve regurgitation, chronic low back pain coming into the hospital with a chief complaint of difficulty in breathing. Patient states that she woke up with difficulty in breathing this morning. She is on hemodialysis on Wednesday, Wednesday and Wednesday. Her last dialysis session was on Wednesday. Patient denies having any chest pain. She was also having some nausea and diarrhea for the past 4 to 5 days. She also reports decreased p.o. intake. Patient denies having any fevers chills or riders. No dysuria or hematuria. She mentions that for the past couple of weeks, she has gained some weight. 07/04/2019 Patient is euvolemic at this time patient received hemodialysis yesterday patient the serum potassium remains high at around 5.5but patient wanted to go home and if nephrology clears her patient will be discharged today no plan for hemodialysis today patient's medications were refilled by her oxygen equipment technician. GEN. APPEARANCE: alert, in no apparent distress HEENT : Mild pallor, facial swelling RESPIRATORY EXAM: No crackles or wheezing at this time. CARDIOVASCULAR EXAM: regular rate, normal rhythm, normal heart sounds. GI/ABDOMINAL EXAM: soft, normal bowel sounds. no distension. EXTREMITIES EXAM: no edema NEUROLOGICAL EXAM: alert, oriented X3, no focal deficits PSYCHIATRIC EXAM: normal affect, normal mood SKIN EXAM: warm, dry, intact, normal color. Absent: rash ASSESSMENT Shortness of breath -most probably due to fluid overload received hemodialysis yesterday fairly euvolemic at this time Hyperkalemia secondary to end-stage renal disease, improved now still bit high End-stage renal disease on hemodialysis on Wednesday, Wednesday and Wednesday Acute on chronic congestive heart failure Systolic congestive heart failure ejection fraction of 35 to 40%with acute exacerbation Severe tricuspid regurgitation Moderate mitral regurgitation Severe pulmonary hypertension Hypertension Failed renal transplant Chronic low back pain History of ovarian cysts Anemia of chronic disease Nonischemic cardiomyopathy Anxiety with depression Plan - Discharge Summary New Discharge Prescriptions: Continue Albuterol Sulfate [Proair Hfa] 2 puff INHALATION RT-Q6H PRN PRN Reason: Shortness Of Breath Calcium Acetate [PhosLo] 2,001 mg PO AC-TID predniSONE 10 mg PO DAILY Carvedilol [Coreg] 25 mg PO BID hydrALAZINE HCL [Apresoline] 100 mg PO TID Cinacalcet HCl [Sensipar] 60 mg PO TUTHSA Pantoprazole [Protonix] 40 mg PO AC-BRKFST #30 tablet. Ondansetron Odt [Zofran ODT] 8 mg PO Q8HR PRN #30 tab PRN Reason: Nausea And Vomiting traZODone HCL [Desyrel] 50 mg PO HS PRN PRN Reason: Insomnia Lidocaine-Prilocaine Cream [Emla Cream 2.5%/2.5%] 1 applic TOPICAL DAILY PRN PRN Reason: DIALYSIS NIFEdipine [Procardia XL] 60 mg PO DAILY Acetaminophen Tab [Tylenol] 650 mg PO Q6H PRN PRN Reason: Pain ALPRAZolam [Xanax] 0.25 mg PO TID PRN PRN Reason: Anxiety Discharge Medication List Albuterol Sulfate [Proair Hfa] 2 puff INHALATION RT-Q6H PRN 01/22/16 [History] Calcium Acetate [PhosLo] 2,001 mg PO AC-TID 05/01/18 [History] Carvedilol [Coreg] 25 mg PO BID 05/28/18 [History] predniSONE 10 mg PO DAILY 05/28/18 [History] hydrALAZINE HCL [Apresoline] 100 mg PO TID 11/16/18 [History] Cinacalcet HCl [Sensipar] 60 mg PO TUTHSA 02/26/19 [History] Ondansetron Odt [Zofran ODT] 8 mg PO Q8HR PRN #30 tab 05/02/19 [Rx] Pantoprazole [Protonix] 40 mg PO AC-BRKFST #30 tablet. 05/02/19 [Rx] Lidocaine-Prilocaine Cream [Emla Cream 2.5%/2.5%] 1 applic TOPICAL DAILY PRN 05/24/19 [History] traZODone HCL [Desyrel] 50 mg PO HS PRN 05/24/19 [History] Acetaminophen Tab [Tylenol] 650 mg PO Q6H PRN 06/10/19 [History] NIFEdipine [Procardia XL] 60 mg PO DAILY 06/10/19 [History] ALPRAZolam [Xanax] 0.25 mg PO TID PRN 07/03/19 [History] Follow up Appointment(s)/Referral(s): Mary Baez MD [Primary Care Provider] - 3 Days
[2019-07-04 14:05] VITALS: PULSE 90
[2019-07-04 14:06] VITALS: BP 144/99; RESP 16; TEMP 98.1
--- NOTE | 2019-07-04 20:11 | PN ---
PROGRESS NOTE Patient is seen for followup for end-stage renal disease. She is scheduled on a Wednesday, Wednesday, Wednesday schedule. The patient was dialyzed yesterday. Her potassium was elevated at 7.2. She is scheduled for hemodialysis again tomorrow. PHYSICAL EXAMINATION: This morning, blood pressure was 163/103, heart rate 90 per minute. She is afebrile. Examination of the heart S1, S2. Examination of the lungs, bilateral breath sounds are heard. ABDOMEN: Soft, nontender. Examination of lower extremities shows no evidence of edema. GLUE CLAMP OPERATOR exam grossly intact. LABS SHOW: Potassium of 5.9 this morning. ASSESSMENT: 1. End-stage renal disease, on hemodialysis on a Wednesday, Wednesday, Wednesday schedule. 2. Hyperkalemia, status post hemodialysis yesterday. Patient can be dialyzed again tomorrow. 3. Hypertension. 4. 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 PLAN: Hemodialysis in a.m. MMEDILSONL / SHERITAN: [id number] /
== END 2019-07-04 14:23 | disposition home or self-care (01) | DRG 291 ==
LOC: EC 07:42 → 3SCARD 09:25
PROVIDERS: ADMIT Internal Medicine; ATTEND Internal Medicine
DX: I13.2 Hypertensive heart and chronic kidney disease with heart failure and with stage 5 chronic kidney disease, or end stage renal disease (principal); N18.6 End stage renal disease; I50.23 Acute on chronic systolic (congestive) heart failure; T86.12 Kidney transplant failure; E87.2 Acidosis; Q61.3 Polycystic kidney, unspecified; D63.8 Anemia in other chronic diseases classified elsewhere; F41.8 Other specified anxiety disorders; I08.3 Combined rheumatic disorders of mitral, aortic and tricuspid valves; I27.20 Pulmonary hypertension, unspecified; I42.8 Other cardiomyopathies; M89.8X9 Other specified disorders of bone, unspecified site; M89.9 Disorder of bone, unspecified; Y83.0 Surgical operation with transplant of whole organ as the cause of abnormal reaction of the patient, or of later complication, without mention of misadventure at the time of the procedure; E87.5 Hyperkalemia; I50.9 Heart failure, unspecified; J45.909 Unspecified asthma, uncomplicated; I42.9 Cardiomyopathy, unspecified; E55.9 Vitamin D deficiency, unspecified; G89.29 Other chronic pain; M54.5 Low back pain; N92.6 Irregular menstruation, unspecified; F41.9 Anxiety disorder, unspecified; F32.9 Major depressive disorder, single episode, unspecified; Z99.2 Dependence on renal dialysis; Z79.899 Other long term (current) drug therapy; Z79.51 Long term (current) use of inhaled steroids; Z79.52 Long term (current) use of systemic steroids; Z87.891 Personal history of nicotine dependence; Z88.8 Allergy status to other drugs, medicaments and biological substances; Z91.14 Patient's other noncompliance with medication regimen
CPT/HCPCS: 36415; 71045; 78582; 80051; 80053; 83880; 84100; 84132; 84484; 85025; 85379; 85610; 85730; 90935; 93005; 94640; 96374; 96375; 99285

== ENCOUNTER 2019-07-09 15:59 | Inpatient (IN) | payer BC, MEDICARE, OTHER ==
--- NOTE | 2019-07-09 16:48 | ED ---
General Adult HPI - General Chief complaint: Shortness of Breath Stated complaint: Difficulty breathing Time Seen by Provider: 07/09/19 16:05 Source: patient, RN notes reviewed, old records reviewed Mode of arrival: ambulatory Limitations: no limitations - History of Present Illness Initial comments: This is a 28-year-old female who presents emergency Department with a past medical history significant for polycystic kidneys. Patient also has chronic kidney failure. Patient is on renal dialysis patient patient comes in today complaining of shortness of breath since 11:00 this morning. Patient states she was last dialyzed on Wednesday at which point and the infiltrated her fistula and she has some pain in the left arm from. Patient states she occasionally has sharp chest pains but only lasts a few seconds but she does not have any chest pain this time. She denies any fever chills or cough. Patient has a swollen to light. Patient denies any abdominal pain patient denies nausea vomiting diarrhea. Patient denies any fever chills. - Related Data Home Medications Medication Instructions Recorded Confirmed Albuterol Sulfate [Proair Hfa] 2 puff INHALATION RT-Q6H PRN 01/22/16 07/03/19 Calcium Acetate [PhosLo] 2,001 mg PO AC-TID 05/01/18 07/03/19 Carvedilol [Coreg] 25 mg PO BID 05/28/18 07/03/19 predniSONE 10 mg PO DAILY 05/28/18 07/03/19 hydrALAZINE HCL [Apresoline] 100 mg PO TID 11/16/18 07/03/19 Cinacalcet HCl [Sensipar] 60 mg PO TUTHSA 02/26/19 07/03/19 Lidocaine-Prilocaine Cream [Emla 1 applic TOPICAL DAILY PRN 05/24/19 07/03/19 Cream 2.5%/2.5%] traZODone HCL [Desyrel] 50 mg PO HS PRN 05/24/19 07/03/19 Acetaminophen Tab [Tylenol] 650 mg PO Q6H PRN 06/10/19 07/03/19 NIFEdipine [Procardia XL] 60 mg PO DAILY 06/10/19 07/03/19 ALPRAZolam [Xanax] 0.25 mg PO TID PRN 07/03/19 07/03/19 Previous Rx's Medication Instructions Recorded Ondansetron Odt [Zofran ODT] 8 mg PO Q8HR PRN #30 tab 05/02/19 Pantoprazole [Protonix] 40 mg PO AC-BRKFST #30 tablet. 05/02/19 Allergies Allergy/AdvReac Type Severity Reaction Status Date / Time hydralazine AdvReac Rapid Verified 07/09/19 16:05 Heart Rate WHEN GIVEN THROUGH IV Review of Systems ROS Statement: Those systems with pertinent positive or pertinent negative responses have been documented in the HPI. ROS Other: All systems not noted in ROS Statement are negative. 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 Past Anesthesia/Blood Transfusion Reactions: No Reported Reaction Additional Past Anesthesia/Blood Transfusion Reaction / Comment(s): Pt has received blood in past without reaction. Past Psychological History: Anxiety, Depression Smoking Status: Former smoker Past Alcohol Use History: None Reported Past Drug Use History: None Reported - Past Family History Father Family Medical History: No Reported History Additional Family Medical History / Comment(s): Father is healthy and is 62 yrs old. Mother Family Medical History: No Reported History Additional Family Medical History / Comment(s): Mother is healthy and is 60 yrs old. General Exam - General Exam Comments Initial Comments: GENERAL: Patient is well-developed and well-nourished. Patient is nontoxic and well- hydrated and is in mild distress. ENT: Neck is soft and supple. No significant lymphadenopathy is noted. Oropharynx is clear. Moist mucous membranes. Neck has full range of motion without eliciting any pain. were felt. EYES: The sclera were anicteric and conjunctiva were pink and moist. Extraocular movements were intact and pupils were equal round and reactive to light. Eyelids were unremarkable. PULMONARY: Unlabored respirations. Good breath sounds bilaterally. No audible rales rhonchi or wheezing was noted. CARDIOVASCULAR: There is a regular rate and rhythm without any murmurs gallops or rubs. ABDOMEN: Abdomen is mildly distended. Soft and nontender with normal bowel sounds. No palpable organomegaly was noted. There is no palpable pulsatile mass. SKIN: Skin is clear with no lesions or rashes and otherwise unremarkable. NEUROLOGIC: Patient is alert and oriented x3. Cranial nerves II through XII are grossly intact. Motor and sensory are also intact. Normal speech, volume and content. Symmetrical smile. MUSCULOSKELETAL: Normal extremities with adequate strength and full range of motion. Scant edema to the lower legs LYMPHATICS: No significant lymphadenopathy is noted PSYCHIATRIC: Normal psychiatric evaluation. Limitations: no limitations Course Vital Signs 07/09/19 07/09/19 16:05 18:13 Temperature 97.9 F Pulse Rate 100 93 Respiratory 20 20 Rate Blood Pressure 182/132 131/105 O2 Sat by Pulse 97 99 Oximetry Medical Decision Making - Medical Decision Making EKG shows normal sinus rhythm at 100 bpm GA interval 108 QRS is 94 QT interval 382 QTC is 492. Patient's EKG shows no ST segment elevation or depression. Patient has a prolonged QT. Patient's blood pressures I gave her 20 labetalol and he came down to 135/105. Chest x-ray shows cardiomegaly but no pulmonary edema. Patient's potassium was elevated so gave the patient Kayexalate bicarb D50 and insulin as well as calcium chloride. I spoke with Dr. Patrick he agreed to admit the patient admitted the patient I wrote admitting orders. I consult nephrology. - Lab Data Result diagrams: 07/09/19 16:21 07/09/19 16:21 Lab Results 07/09/19 07/09/19 07/09/19 Range/Units 16:21 16:21 16:21 WBC 5.9 (3.8-10.6) k/uL RBC 3.95 (3.80-5.40) m/uL Hgb 11.9 (11.4-16.0) gm/dL Hct 38.7 (34.0-46.0) % MCV 98.1 (80.0-100.0) fL MCH 30.1 (25.0-35.0) pg MCHC 30.7 L (31.0-37.0) g/dL RDW 18.3 H (11.5-15.5) % Plt Count 172 (150-450) k/uL Neutrophils % 72 % Lymphocytes % 17 % Monocytes % 6 % Eosinophils % 2 % Basophils % 1 % Neutrophils # 4.2 (1.3-7.7) k/uL Lymphocytes # 1.0 (1.0-4.8) k/uL Monocytes # 0.3 (0-1.0) k/uL Eosinophils # 0.1 (0-0.7) k/uL Basophils # 0.0 (0-0.2) k/uL Hypochromasia Moderate Anisocytosis Slight Macrocytosis Slight PT 13.7 H (9.0-12.0) sec INR 1.3 H (<1.2) APTT 25.4 (22.0-30.0) sec Sodium 134 L (137-145) mmol/L Potassium 6.6 H* (3.5-5.1) mmol/L Chloride 94 L (98-107) mmol/L Carbon Dioxide 23 (22-30) mmol/L Anion Gap 17 mmol/L BUN 84 H (7-17) mg/dL Creatinine 10.49 H* (0.52-1.04) mg/dL Est GFR (CKD-EPI)AfAm 5 (>60 ml/min/1.73 sqM) Est GFR (CKD-EPI)NonAf 5 (>60 ml/min/1.73 sqM) Glucose 44 L* (74-99) mg/dL POC Glucose (mg/dL) (75-99) mg/dL POC Glu Dispensing Lead ID Calcium 9.1 (8.4-10.2) mg/dL Magnesium 2.1 (1.6-2.3) mg/dL Total Bilirubin 2.1 H (0.2-1.3) mg/dL AST 66 H (14-36) U/L ALT 54 H (9-52) U/L Alkaline Phosphatase 87 (38-126) U/L Troponin I (0.000-0.034) ng/mL NT-Pro-B Natriuret Pep pg/mL Total Protein 7.2 (6.3-8.2) g/dL Albumin 4.0 (3.5-5.0) g/dL 07/09/19 07/09/19 07/09/19 Range/Units 16:21 16:21 17:34 WBC (3.8-10.6) k/uL RBC (3.80-5.40) m/uL Hgb (11.4-16.0) gm/dL Hct (34.0-46.0) % MCV (80.0-100.0) fL MCH (25.0-35.0) pg MCHC (31.0-37.0) g/dL RDW (11.5-15.5) % Plt Count (150-450) k/uL Neutrophils % % Lymphocytes % % Monocytes % % Eosinophils % % Basophils % % Neutrophils # (1.3-7.7) k/uL Lymphocytes # (1.0-4.8) k/uL Monocytes # (0-1.0) k/uL Eosinophils # (0-0.7) k/uL Basophils # (0-0.2) k/uL Hypochromasia Anisocytosis Macrocytosis PT (9.0-12.0) sec INR (<1.2) APTT (22.0-30.0) sec Sodium (137-145) mmol/L Potassium (3.5-5.1) mmol/L Chloride (98-107) mmol/L Carbon Dioxide (22-30) mmol/L Anion Gap mmol/L BUN (7-17) mg/dL Creatinine (0.52-1.04) mg/dL Est GFR (CKD-EPI)AfAm (>60 ml/min/1.73 sqM) Est GFR (CKD-EPI)NonAf (>60 ml/min/1.73 sqM) Glucose (74-99) mg/dL POC Glucose (mg/dL) 113 H (75-99) mg/dL POC Glu Dispensing Lead ID Prey, Edda Calcium (8.4-10.2) mg/dL Magnesium (1.6-2.3) mg/dL Total Bilirubin (0.2-1.3) mg/dL AST (14-36) U/L ALT (9-52) U/L Alkaline Phosphatase (38-126) U/L Troponin I 0.132 H* (0.000-0.034) ng/mL NT-Pro-B Natriuret Pep [id number] pg/mL Total Protein (6.3-8.2) g/dL Albumin (3.5-5.0) g/dL Critical Care Time Critical Care Time: Yes Total Critical Care Time: 35 Disposition Clinical Impression: Hypertensive urgency, Hyperkalemia, Dyspnea, Chronic renal failure, Chest pain Disposition: ADMITTED IP TO THIS HOSP Referrals: Mary Baez MD [Primary Care Provider] - 1-2 days Time of Disposition: 18:20
[2019-07-09 16:51] LABS: Anisocytosis Slight; Basophils % (A) 1 %; Eosinophils # (A) 0.1 k/uL (0-0.7); Eosinophils % (A) 2 %; HCT 38.7 % (34.0-46.0); HGB 11.9 gm/dL (11.4-16.0); Hypochromasia Moderate; Lymphocytes % (A) 17 %; MCH 30.1 pg (25.0-35.0); MCHC 30.7 g/dL (31.0-37.0); MCV 98.1 fL (80.0-100.0); Macrocytosis Slight; Mean Platelet Volume 7.6; Monocytes # (A) 0.3 k/uL (0-1.0); Monocytes % (A) 6 %; Neutrophils # (A) 4.2 k/uL (1.3-7.7); Neutrophils % (A) 72 %; Platelet Count 172 k/uL (150-450); RBC 3.95 m/uL (3.80-5.40); RDW 18.3 % (11.5-15.5); WBC 5.9 k/uL (3.8-10.6)
[2019-07-09 17:04] LABS: Calcium 9.1 mg/dL (8.4-10.2); Magnesium 2.1 mg/dL (1.6-2.3); Total Bilirubin 2.1 mg/dL (0.2-1.3); Total Protein 7.2 g/dL (6.3-8.2)
[2019-07-09 17:05] LABS: INR 1.3 (<1.2); Partial Thromboplastin Time 25.4 sec (22.0-30.0); Prothrombin Time 13.7 sec (9.0-12.0)
[2019-07-09] MEDS ORDERED: LABETALOL 5 MG/ML VIAL MDV IVP STA (17:05)
[2019-07-09 17:09] LABS: Potassium 6.6 mmol/L (3.5-5.1)
[2019-07-09 17:36] LABS: Glucose,Whole Blood 113 mg/dL (75-99)
--- NOTE | 2019-07-09 18:02 | XR ---
EXAMINATION TYPE: XR chest 2V DATE OF EXAM: 07/09/2019 COMPARISON: 07/03/2019 HISTORY: Shortness of breath and chest pain with history of asthma TECHNIQUE: Frontal and lateral views of the chest are obtained. FINDINGS: Increasing right basilar opacity is seen. No pneumothorax or pleural effusion. The cardia c silhouette size is markedly enlarged as seen on the prior. The osseous structures are intact. IMPRESSION: 1. Redemonstration of marked cardiomegaly. 2. New right basilar opacity may represent atelectasis or developing pneumonia.
[2019-07-09] MEDS ORDERED: DEXTROSE 50% SYRINGE 50 ML IVP STA (18:08)
[2019-07-09] MEDS ORDERED: INSULIN REGULAR 100 UNIT/ML VIAL IV ONE (18:08)
[2019-07-09] MEDS ORDERED: CALCIUM CHLORIDE 100 MG/ML 10 ML SYRINGE IVP STA (18:09)
[2019-07-09] MEDS ORDERED: SODIUM BICARB 8.4% 50 ML SYR (1 MEQ/ML) IV STA (18:09)
[2019-07-09] MEDS ORDERED: SODIUM POLYSTYRENE SULFONATE 15 GM/60 ML BOTTLE PO STA (18:09)
[2019-07-09] MEDS ORDERED: LORazepam 2 MG/ML INJ IV STA (18:41)
[2019-07-09 21:00] LABS: Glucose,Whole Blood 73 mg/dL (75-99)
[2019-07-09] MEDS: NITROGLYCERIN SL TABS 0.4 MG TAB SUBLINGUAL STA ×3 (21:02→21:13)
[2019-07-09] MEDS ORDERED: LABETALOL 5 MG/ML VIAL MDV IVP PRN (21:30)
[2019-07-09] MEDS ORDERED: ONDANSETRON 4 MG TAB PO PRN (21:31)
[2019-07-09] MEDS ORDERED: ALBUTEROL NEBULIZED 2.5 MG/3 ML INHALATION PRN (21:31)
[2019-07-09] MEDS ORDERED: traZODone HCL 50 MG TAB PO PRN (21:31)
[2019-07-09] MEDS ORDERED: CALCIUM ACETATE 667 MG TAB PO PRN (21:31)
[2019-07-09] MEDS: MORPHINE SULFATE 2 MG/ML SYRINGE IVP PRN (21:36)
[2019-07-09] MEDS: hydrALAZINE HCL 25 MG TAB PO SCH (21:39)
[2019-07-09] MEDS: CARVEDILOL 12.5 MG TAB PO SCH (21:40)
[2019-07-09] MEDS: ALPRAZolam 0.25 MG TAB PO PRN (22:51)
[2019-07-10] LABS: Glucose,Whole Blood 103 mg/dL (75-99)
[2019-07-10 01:55] LABS: Glucose,Whole Blood 81 mg/dL (75-99)
[2019-07-10] MEDS: MORPHINE SULFATE 2 MG/ML SYRINGE IVP PRN ×4 (01:55→19:48)
[2019-07-10] MEDS ORDERED: DEXTROSE 10 % IN WATER 250 ML IV STA (04:52)
[2019-07-10] MEDS ORDERED: INSULIN REGULAR 100 UNIT/ML VIAL IV ONE (04:53)
[2019-07-10 06:11] LABS: Glucose,Whole Blood 143 mg/dL (75-99)
[2019-07-10 08:07] LABS: Glucose,Whole Blood 90 mg/dL (75-99)
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
[2019-07-10] MEDS: SYMBICORT 80-4.5 MCG INHALER INHALATION SCH ×2 (08:12→20:30)
[2019-07-10] MEDS: hydrALAZINE HCL 25 MG TAB PO SCH ×3 (08:42→20:32)
[2019-07-10] MEDS: CALCIUM ACETATE 667 MG TAB PO SCH ×3 (08:43→19:50)
[2019-07-10] MEDS: CARVEDILOL 12.5 MG TAB PO SCH ×2 (08:43→20:32)
[2019-07-10 08:50] LABS: Calcium 8.9 mg/dL (8.4-10.2)
[2019-07-10 08:58] LABS: Potassium 6.5 mmol/L (3.5-5.1)
[2019-07-10] MEDS ORDERED: cloNIDine 0.1 MG/24HR PATCH TRANSDERM SCH (11:30)
[2019-07-10] MEDS ORDERED: LIDOCAINE-PRILOCAINE 2.5-2.5% CREAM 5 GM TUBE TOPICAL PRN (11:34)
[2019-07-10] MEDS ORDERED: ALPRAZolam 0.25 MG TAB PO PRN (11:34)
[2019-07-10 12:04] LABS: Glucose,Whole Blood 72 mg/dL (75-99)
--- NOTE | 2019-07-10 12:19 | P.HPIM ---
History of Present Illness 28-year-old female lies admitted for chest pain and cardiology was consulted cardiology evaluated the patient. Patient has minimal elevated troponins which are chronic elevation and secondary to chronic kidney disease end-stage renal disease. Concussion patient was complaining of generalized body aches flulike symptoms in-transit testing will be ordered. Patient does have sharp chest pain which appears to be musculoskeletal reproducible chest pain. Patient denied anyradiation of the chest pain patient did say that she did gain quite a bit of weight. Patient did undergo her hemodialysis although her dialysis access is barely functional because of which patient will undergo central line for dialysis access temporarily. Patient is hypokalemic. Patient does have infiltrate in the lungs which is probably fluid patient denied any fever denied any cough no clinical evidence of pneumonia.10 does have bronchovascular alannah ings consistent with the fluid overload will need hemodialysis patient doesn't make much urine.patient's regular hemanalysis sessions or Wednesday. Patient has multiple other left leg abnormality secondary to end-stage renal disease. Patient's serum glucose is low.patient doesn't have any acute ST-T wave changes on the EKG cardiologyis managing her heart failure issue. Patient had similar pain recently for which patient had a VQ scan which showed low probably for PE patient's symptomology is not consistent with the rather viral upper respiratory infection will do influenza testing if that's negative it may be related to some other viral illness. Review of Systems REVIEW OF SYSTEMS: CONSTITUTIONAL: flulike symptoms as mentioned above HEENT: No recent visual problems or hearing problems. Denied any sore throat. CARDIOVASCULAR: No , orthopnea, PND, no palpitations, no syncope. PULMONARY: complain of some shortness of breath no cough, no hemoptysis. GASTROINTESTINAL: No diarrhea, no nausea, no vomiting, no abdominal pain. NEUROLOGICAL: No headaches, no weakness, no numbness. HEMATOLOGICAL: Denies any bleeding or petechiae. GENITOURINARY: Denies any burning micturition, frequency, or urgency. MUSCULOSKELETAL/RHEUMATOLOGICAL: Denies any joint pain, swelling, or any muscle pain. ENDOCRINE: Denies any polyuria or polydipsia. The rest of the 14-point review of systems is negative. Past Medical History Past Medical History: Asthma, Heart Failure, Hypertension, Renal Disease Additional Past Medical History / Comment(s): ESRD d/t being born with polycystic kidney disease, failed kidney transplant, hemodialysis, metabolic bone disease, chronic anemia, nonischemic myopathy with EF 35-40%/mild to moderate mitral valve regurgitation, vitamin D deficiency, chronic low back pain, ovarian cysts, irregular menses, History of Any Multi-Drug Resistant Organisms: None Reported Past Surgical History: Heart Catheterization, Hernia Repair Additional Past Surgical History / Comment(s): 06/14/18 cardiac cath at [facility] to check coronary pressures, 11/15/09 Failed kidney transplant R pelvis, dialysis catheter in and out, current L upper arm AVG, supra pubic hernia repair, transvaginal mesh, wisdom teeth extraction with anesthesia. Past Anesthesia/Blood Transfusion Reactions: No Reported Reaction Additional Past Anesthesia/Blood Transfusion Reaction / Comment(s): Pt has received blood in past without reaction. Past Psychological History: Anxiety, Depression Additional Psychological History / Comment(s): Pt resides with family. She is independent. She drives. She is disabled. She states she has anxiety and depression but no suicidal thoughts/ idealations or plans. She had one suicide attempt with overdose in 2012. Smoking Status: Former smoker Past Alcohol Use History: None Reported Additional Past Alcohol Use History / Comment(s): Pt states she started smoking socially as a teen and quit smoking in 2015. Past Drug Use History: None Reported - Past Family History Father Family Medical History: No Reported History Additional Family Medical History / Comment(s): Father is healthy and is 62 yrs old. Mother Family Medical History: No Reported History Additional Family Medical History / Comment(s): Mother is healthy and is 60 yrs old. Medications and Allergies Home Medications Medication Instructions Recorded Confirmed Type Albuterol Sulfate [Proair Hfa] 2 puff INHALATION RT-Q6H PRN 01/22/16 07/09/19 History Calcium Acetate [PhosLo] 1,334 mg PO AC-TID 05/01/18 07/09/19 History Carvedilol [Coreg] 25 mg PO BID 05/28/18 07/09/19 History predniSONE 10 mg PO DAILY 05/28/18 07/09/19 History hydrALAZINE HCL [Apresoline] 100 mg PO TID 11/16/18 07/09/19 History Cinacalcet HCl [Sensipar] 60 mg PO TUTHSA 02/26/19 07/09/19 History Lidocaine-Prilocaine Cream [Emla 1 applic TOPICAL DAILY PRN 05/24/19 07/09/19 History Cream 2.5%/2.5%] traZODone HCL [Desyrel] 50 mg PO HS PRN 05/24/19 07/09/19 History Acetaminophen Tab [Tylenol] 650 mg PO Q6H PRN 06/10/19 07/09/19 History NIFEdipine [Procardia XL] 60 mg PO DAILY 06/10/19 07/09/19 History ALPRAZolam [Xanax] 0.25 mg PO HS PRN 07/03/19 07/09/19 History Budesonide/Formoterol Fumarate 2 puff INHALATION RT-BID 07/09/19 07/09/19 History [Symbicort 80-4.5 Mcg Inhaler] Calcium Acetate [Phoslo] 1,334 mg PO BID PRN 07/09/19 07/09/19 History Pantoprazole [Protonix] 40 mg PO QAM 07/09/19 07/09/19 History Ondansetron Odt [Zofran ODT] 8 mg SUBLINGUAL Q8H PRN 07/10/19 07/10/19 History Allergies Allergy/AdvReac Type Severity Reaction Status Date / Time hydralazine AdvReac Rapid Verified 07/09/19 18:44 Heart Rate WHEN GIVEN THROUGH IV Physical Exam Vitals: Vital Signs Temp Pulse Pulse Resp BP BP Pulse Ox 07/10/19 11:40 98.3 F 82 18 170/90 07/10/19 08:00 81 18 170/109 96 07/10/19 04:00 97.8 F 77 18 154/113 100 07/10/19 00:00 98.0 F 105 H 18 174/125 100 07/09/19 20:30 98.1 F 105 H 18 160/110 93 L 07/09/19 20:00 104 H 94/69 07/09/19 19:30 101 H 119/100 07/09/19 18:13 93 20 131/105 99 07/09/19 16:05 97.9 F 100 20 182/132 97 Intake and Output 07/09/19 07/10/19 07/10/19 22:59 06:59 14:59 Other: Voiding Method Toilet Toilet # Voids 0 Weight 60 kg 61.3 kg PHYSICAL EXAMINATION: GENERAL: The patient is alert and oriented x3, not in any acute distress. Well female HEENT: Pupils are round and equally reacting to light. EOMI. No scleral icterus. No conjunctival pallor. Normocephalic, atraumatic. No pharyngeal erythema. No thyromegaly. CARDIOVASCULAR: S1 and S2 present. No murmurs, rubs, or gallops. PULMONARY: diffuse crackles bilaterally. ABDOMEN: Soft, nontender, nondistended, normoactive bowel sounds. No palpable organomegaly. MUSCULOSKELETAL: No joint swelling or deformity. EXTREMITIES: No cyanosis, clubbing, or pedal edema. NEUROLOGICAL: Gross neurological examination did not reveal any focal deficits. SKIN: No rashes. Results CBC & Chem 7: 07/09/19 16:21 07/10/19 08:23 Labs: Abnormal Lab Results - Last 24 Hours (Table) 07/09/19 07/09/19 07/09/19 Range/Units 16:21 16:21 16:21 MCHC 30.7 L (31.0-37.0) g/dL RDW 18.3 H (11.5-15.5) % PT 13.7 H (9.0-12.0) sec INR 1.3 H (<1.2) Sodium 134 L (137-145) mmol/L Potassium 6.6 H* (3.5-5.1) mmol/L Chloride 94 L (98-107) mmol/L BUN 84 H (7-17) mg/dL Creatinine 10.49 H* (0.52-1.04) mg/dL Glucose 44 L* (74-99) mg/dL POC Glucose (mg/dL) (75-99) mg/dL Total Bilirubin 2.1 H (0.2-1.3) mg/dL AST 66 H (14-36) U/L ALT 54 H (9-52) U/L Troponin I (0.000-0.034) ng/mL 07/09/19 07/09/19 07/09/19 Range/Units 16:21 17:34 18:35 MCHC (31.0-37.0) g/dL RDW (11.5-15.5) % PT (9.0-12.0) sec INR (<1.2) Sodium (137-145) mmol/L Potassium (3.5-5.1) mmol/L Chloride (98-107) mmol/L BUN (7-17) mg/dL Creatinine (0.52-1.04) mg/dL Glucose (74-99) mg/dL POC Glucose (mg/dL) 113 H (75-99) mg/dL Total Bilirubin (0.2-1.3) mg/dL AST (14-36) U/L ALT (9-52) U/L Troponin I 0.132 H* 0.146 H* (0.000-0.034) ng/mL 07/09/19 07/09/19 07/09/19 Range/Units 20:59 21:19 23:49 MCHC (31.0-37.0) g/dL RDW (11.5-15.5) % PT (9.0-12.0) sec INR (<1.2) Sodium (137-145) mmol/L Potassium 6.0 H (3.5-5.1) mmol/L Chloride (98-107) mmol/L BUN (7-17) mg/dL Creatinine (0.52-1.04) mg/dL Glucose (74-99) mg/dL POC Glucose (mg/dL) 73 L 103 H (75-99) mg/dL Total Bilirubin (0.2-1.3) mg/dL AST (14-36) U/L ALT (9-52) U/L Troponin I (0.000-0.034) ng/mL 07/10/19 07/10/19 07/10/19 Range/Units 04:02 04:07 06:10 MCHC (31.0-37.0) g/dL RDW (11.5-15.5) % PT (9.0-12.0) sec INR (<1.2) Sodium (137-145) mmol/L Potassium 7.3 H* (3.5-5.1) mmol/L Chloride (98-107) mmol/L BUN (7-17) mg/dL Creatinine (0.52-1.04) mg/dL Glucose (74-99) mg/dL POC Glucose (mg/dL) 143 H (75-99) mg/dL Total Bilirubin (0.2-1.3) mg/dL AST (14-36) U/L ALT (9-52) U/L Troponin I 0.280 H* (0.000-0.034) ng/mL 07/10/19 07/10/19 Range/Units 08:23 11:57 MCHC (31.0-37.0) g/dL RDW (11.5-15.5) % PT (9.0-12.0) sec INR (<1.2) Sodium 134 L (137-145) mmol/L Potassium 6.5 H* (3.5-5.1) mmol/L Chloride 95 L (98-107) mmol/L BUN 92 H (7-17) mg/dL Creatinine 11.50 H* (0.52-1.04) mg/dL Glucose (74-99) mg/dL POC Glucose (mg/dL) 72 L (75-99) mg/dL Total Bilirubin (0.2-1.3) mg/dL AST (14-36) U/L ALT (9-52) U/L Troponin I (0.000-0.034) ng/mL Thrombosis Risk Factor Assmnt - Choose All That Apply Any of the Below Risk Factors Present?: No Other Risk Factors: No Other congenital or acquired thrombophilia - If yes, enter type in comment: No Thrombosis Risk Factor Assessment Level: Very Low Risk Assessment and Plan Plan: chest pain and generalized body aches musculoskeletal, rule out acute medicine syndromes elevated troponin is secondary to renal failure doesn't appear to have cardiac chest pain.cardio eval and the patient no further intervention from their perspective. -Viral upper respiratory infection: We'll rule out influenza supportive treatment -Pulmonary edema congestive heart failure chronic systolic dysfunction with acute exacerbation, patient will need hemodialysis for treatment of her pulmonary edema. Patient doesn't make much urine patient had moderate aortic regurgitation and moderate tricuspid regurgitation and moderate pulmonary hypertension as well. -Hypertension uncontrolled elevated secondary to end-stage renal disease expected to improve with dialysis her blood pressure fluctuates quite a bit patient will be resumed on her home regimen. 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
--- NOTE | 2019-07-10 12:53 | P.GSCN ---
History of Present Illness History of present illness: 28-year-old female known to me from the office patient came with some chest discomfort and he was treated by the cardiology found to have a mild elevation of troponin. Patient is having dialysis through the left AV fistula placed in the past he did patient came with the high potassium and the we will place the dialysis catheter for dialysis today Past history patient had a left alex suprapectoral fistula placed in the past patient has history of chronic failure on on dialysis On examination patient was seen in her room neck supple chest few crackles the lung bases Abdomen soft nontender Patient has a fistula left arm there is some aneurysmal dilatation of the fistula but thrill present patient had a some infiltration during the dialysis today Plan is placement of the dialysis catheter risk and complication discussed Past Medical History Past Medical History: Asthma, Heart Failure, Hypertension, Renal Disease Additional Past Medical History / Comment(s): ESRD d/t being born with polycystic kidney disease, failed kidney transplant, hemodialysis, metabolic bone disease, chronic anemia, 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 Past Anesthesia/Blood Transfusion Reactions: No Reported Reaction Additional Past Anesthesia/Blood Transfusion Reaction / Comm: Pt has received blood in past without reaction. Past Psychological History: Anxiety, Depression Additional Psychological History / Comment(s): Pt resides with family. She is independent. She drives. She is disabled. She states she has anxiety and depression but no suicidal thoughts/ idealations or plans. She had one suicide attempt with overdose in 2012. Smoking Status: Former smoker Past Alcohol Use History: None Reported Additional Past Alcohol Use History / Comment(s): Pt states she started smoking socially as a teen and quit smoking in 2016. Past Drug Use History: None Reported - Past Family History Father Family Medical History: No Reported History Additional Family Medical History / Comment(s): Father is healthy and is 62 yrs old. Mother Family Medical History: No Reported History Additional Family Medical History / Comment(s): Mother is healthy and is 60 yrs old. Medications and Allergies Home Medications Medication Instructions Recorded Confirmed Type Albuterol Sulfate [Proair Hfa] 2 puff INHALATION RT-Q6H PRN 01/22/16 07/09/19 History Calcium Acetate [PhosLo] 1,334 mg PO AC-TID 05/01/18 07/09/19 History Carvedilol [Coreg] 25 mg PO BID 05/28/18 07/09/19 History predniSONE 10 mg PO DAILY 05/28/18 07/09/19 History hydrALAZINE HCL [Apresoline] 100 mg PO TID 11/16/18 07/09/19 History Cinacalcet HCl [Sensipar] 60 mg PO TUTHSA 02/26/19 07/09/19 History Lidocaine-Prilocaine Cream [Emla 1 applic TOPICAL DAILY PRN 05/24/19 07/09/19 History Cream 2.5%/2.5%] traZODone HCL [Desyrel] 50 mg PO HS PRN 05/24/19 07/09/19 History Acetaminophen Tab [Tylenol] 650 mg PO Q6H PRN 06/10/19 07/09/19 History NIFEdipine [Procardia XL] 60 mg PO DAILY 06/10/19 07/09/19 History ALPRAZolam [Xanax] 0.25 mg PO HS PRN 07/03/19 07/09/19 History Budesonide/Formoterol Fumarate 2 puff INHALATION RT-BID 07/09/19 07/09/19 Hi story [Symbicort 80-4.5 Mcg Inhaler] Calcium Acetate [Phoslo] 1,334 mg PO BID PRN 07/09/19 07/09/19 History Pantoprazole [Protonix] 40 mg PO QAM 07/09/19 07/09/19 History Ondansetron Odt [Zofran ODT] 8 mg SUBLINGUAL Q8H PRN 07/10/19 07/10/19 History Allergies Allergy/AdvReac Type Severity Reaction Status Date / Time hydralazine AdvReac Rapid Verified 07/09/19 18:44 Heart Rate WHEN GIVEN THROUGH IV Surgical - Exam Vital Signs Temp Pulse Resp BP Pulse Ox 97.9 F 100 20 182/132 97 07/09/19 16:05 07/09/19 16:05 07/09/19 16:05 07/09/19 16:05 07/09/19 16:05 Results - Labs 07/09/19 16:21 07/10/19 08:23 Abnormal Lab Results - Last 24 Hours (Table) 07/09/19 07/09/19 07/09/19 Range/Units 16:21 16:21 16:21 MCHC 30.7 L (31.0-37.0) g/dL RDW 18.3 H (11.5-15.5) % PT 13.7 H (9.0-12.0) sec INR 1.3 H (<1.2) Sodium 134 L (137-145) mmol/L Potassium 6.6 H* (3.5-5.1) mmol/L Chloride 94 L (98-107) mmol/L BUN 84 H (7-17) mg/dL Creatinine 10.49 H* (0.52-1.04) mg/dL Glucose 44 L* (74-99) mg/dL POC Glucose (mg/dL) (75-99) mg/dL Phosphorus (2.5-4.5) mg/dL Total Bilirubin 2.1 H (0.2-1.3) mg/dL AST 66 H (14-36) U/L ALT 54 H (9-52) U/L Troponin I (0.000-0.034) ng/mL 07/09/19 07/09/19 07/09/19 Range/Units 16:21 17:34 18:35 MCHC (31.0-37.0) g/dL RDW (11.5-15.5) % PT (9.0-12.0) sec INR (<1.2) Sodium (137-145) mmol/L Potassium (3.5-5.1) mmol/L Chloride (98-107) mmol/L BUN (7-17) mg/dL Creatinine (0.52-1.04) mg/dL Glucose (74-99) mg/dL POC Glucose (mg/dL) 113 H (75-99) mg/dL Phosphorus (2.5-4.5) mg/dL Total Bilirubin (0.2-1.3) mg/dL AST (14-36) U/L ALT (9-52) U/L Troponin I 0.132 H* 0.146 H* (0.000-0.034) ng/mL 07/09/19 07/09/19 07/09/19 Range/Units 20:59 21:19 23:49 MCHC (31.0-37.0) g/dL RDW (11.5-15.5) % PT (9.0-12.0) sec INR (<1.2) Sodium (137-145) mmol/L Potassium 6.0 H (3.5-5.1) mmol/L Chloride (98-107) mmol/L BUN (7-17) mg/dL Creatinine (0.52-1.04) mg/dL Glucose (74-99) mg/dL POC Glucose (mg/dL) 73 L 103 H (75-99) mg/dL Phosphorus (2.5-4.5) mg/dL Total Bilirubin (0.2-1.3) mg/dL AST (14-36) U/L ALT (9-52) U/L Troponin I (0.000-0.034) ng/mL 07/10/19 07/10/19 07/10/19 Range/Units 04:02 04:07 06:10 MCHC (31.0-37.0) g/dL RDW (11.5-15.5) % PT (9.0-12.0) sec INR (<1.2) Sodium (137-145) mmol/L Potassium 7.3 H* (3.5-5.1) mmol/L Chloride (98-107) mmol/L BUN (7-17) mg/dL Creatinine (0.52-1.04) mg/dL Glucose (74-99) mg/dL POC Glucose (mg/dL) 143 H (75-99) mg/dL Phosphorus (2.5-4.5) mg/dL Total Bilirubin (0.2-1.3) mg/dL AST (14-36) U/L ALT (9-52) U/L Troponin I 0.280 H* (0.000-0.034) ng/mL 07/10/19 07/10/19 07/10/19 Range/Units 08:23 08:23 11:57 MCHC (31.0-37.0) g/dL RDW (11.5-15.5) % PT (9.0-12.0) sec INR (<1.2) Sodium 134 L (137-145) mmol/L Potassium 6.5 H* (3.5-5.1) mmol/L Chloride 95 L (98-107) mmol/L BUN 92 H (7-17) mg/dL Creatinine 11.50 H* (0.52-1.04) mg/dL Glucose (74-99) mg/dL POC Glucose (mg/dL) 72 L (75-99) mg/dL Phosphorus 9.5 H* (2.5-4.5) mg/dL Total Bilirubin (0.2-1.3) mg/dL AST (14-36) U/L ALT (9-52) U/L Troponin I (0.000-0.034) ng/mL Diabetes panel 07/09/19 07/09/19 07/10/19 Range/Units 16:21 21:19 04:07 Sodium 134 L (137-145) mmol/L Potassium 6.6 H* 6.0 H 7.3 H* (3.5-5.1) mmol/L Chloride 94 L (98-107) mmol/L Carbon Dioxide 23 (22-30) mmol/L BUN 84 H (7-17) mg/dL Creatinine 10.49 H* (0.52-1.04) mg/dL Glucose 44 L* (74-99) mg/dL Calcium 9.1 (8.4-10.2) mg/dL AST 66 H (14-36) U/L ALT 54 H (9-52) U/L Alkaline Phosphatase 87 (38-126) U/L Total Protein 7.2 (6.3-8.2) g/dL Albumin 4.0 (3.5-5.0) g/dL 07/10/19 Range/Units 08:23 Sodium 134 L (137-145) mmol/L Potassium 6.5 H* (3.5-5.1) mmol/L Chloride 95 L (98-107) mmol/L Carbon Dioxide 22 (22-30) mmol/L BUN 92 H (7-17) mg/dL Creatinine 11.50 H* (0.52-1.04) mg/dL Glucose 87 (74-99) mg/dL Calcium 8.9 (8.4-10.2) mg/dL AST (14-36) U/L ALT (9-52) U/L Alkaline Phosphatase (38-126) U/L Total Protein (6.3-8.2) g/dL Albumin (3.5-5.0) g/dL Calcium panel 07/09/19 07/10/19 07/10/19 Range/Units 16:21 08:23 08:23 Calcium 9.1 8.9 (8.4-10.2) mg/dL Phosphorus 9.5 H* (2.5-4.5) mg/dL Albumin 4.0 (3.5-5.0) g/dL Pituitary panel 07/09/19 07/09/19 07/10/19 Range/Units 16:21 21:19 04:07 Sodium 134 L (137-145) mmol/L Potassium 6.6 H* 6.0 H 7.3 H* (3.5-5.1) mmol/L Chloride 94 L (98-107) mmol/L Carbon Dioxide 23 (22-30) mmol/L BUN 84 H (7-17) mg/dL Creatinine 10.49 H* (0.52-1.04) mg/dL Glucose 44 L* (74-99) mg/dL Calcium 9.1 (8.4-10.2) mg/dL 07/10/19 Range/Units 08:23 Sodium 134 L (137-145) mmol/L Potassium 6.5 H* (3.5-5.1) mmol/L Chloride 95 L (98-107) mmol/L Carbon Dioxide 22 (22-30) mmol/L BUN 92 H (7-17) mg/dL Creatinine 11.50 H* (0.52-1.04) mg/dL Glucose 87 (74-99) mg/dL Calcium 8.9 (8.4-10.2) mg/dL Adrenal panel 07/09/19 07/09/19 07/10/19 Range/Units 16:21 21:19 04:07 Sodium 134 L (137-145) mmol/L Potassium 6.6 H* 6.0 H 7.3 H* (3.5-5.1) mmol/L Chloride 94 L (98-107) mmol/L Carbon Dioxide 23 (22-30) mmol/L BUN 84 H (7-17) mg/dL Creatinine 10.49 H* (0.52-1.04) mg/dL Glucose 44 L* (74-99) mg/dL Calcium 9.1 (8.4-10.2) mg/dL Total Bilirubin 2.1 H (0.2-1.3) mg/dL AST 66 H (14-36) U/L ALT 54 H (9-52) U/L Alkaline Phosphatase 87 (38-126) U/L Total Protein 7.2 (6.3-8.2) g/dL Albumin 4.0 (3.5-5.0) g/dL 07/10/19 Range/Units 08:23 Sodium 134 L (137-145) mmol/L Potassium 6.5 H* (3.5-5.1) mmol/L Chloride 95 L (98-107) mmol/L Carbon Dioxide 22 (22-30) mmol/L BUN 92 H (7-17) mg/dL Creatinine 11.50 H* (0.52-1.04) mg/dL Glucose 87 (74-99) mg/dL Calcium 8.9 (8.4-10.2) mg/dL Total Bilirubin (0.2-1.3) mg/dL AST (14-36) U/L ALT (9-52) U/L Alkaline Phosphatase (38-126) U/L Total Protein (6.3-8.2) g/dL Albumin (3.5-5.0) g/dL
--- NOTE | 2019-07-10 13:36 | ECHOF ---
Referral Reason:chf MEASUREMENTS -------- HEIGHT: 157.5 cm WEIGHT: 61.2 kg BP: RVIDd: 2.9 cm (< 3.3) IVSd: 1.5 cm (0.6 - 1.1) LVIDd: 4.7 cm (3.9 - 5.3) LVPWd: 1.9 cm (0.6 - 1.1) IVSs: 1.9 cm LVIDs: 4.6 cm LVPWs: 1.8 cm LAESV Index (A-L): 33.30 ml/m Ao Diam: 3.0 cm (2.0 - 3.7) AV Cusp: 2.0 cm (1.5 - 2.6) LA Diam: 3.7 cm (2.7 - 3.8) MV EXCURSION: 13.189 mm (> 18.000) MV EF SLOPE: 70 mm/s (70 - 150) EPSS: 1.7 cm MV E Minesh: 1.05 m/s MV DecT: 163 ms MV A Minesh: 0.30 m/s MV E/A Ratio: 3.46 AR PHT: 507 ms RAP: 5.00 mmHg RVSP: 50.98 mmHg TAPSE: 21.48 mm FINDINGS -------- Sinus rhythm. This was a technically good study. The left ventricular size is normal. There is moderate concentric left ventricular hypertrophy. T here is severe global hypokinesis of LV . Overall left ventricular systolic function is severely im paired with, an EF between 20 - 25 %. Increased LAP Grade 3 Diastolic Dysfunction. The right ventricle is normal in size. LA is midly dilated 29-33ml/m2. The right atrial size is normal. Aortic valve is trileaflet and is mildly thickened. There is moderate aortic regurgitation. The mitral valve is normal. The mitral valve leaflets are mildly thickened. Mild mitral annular c alcification present. Mild mitral regurgitation is present. The tricuspid valve appears structurally normal. Severe tricuspid regurgitation present. There is moderate to severe pulmonary hypertension. The right ventricular systolic pressure, as measured by Doppler, is 50.98mmHg. Moderate pulmonic regurgitation. The aortic root size is normal. Normal inferior vena cava with normal inspiratory collapse consistent with estimated right atrial pre ssure of 5 mmHg. There is a small, generalized pericardial effusion present. CONCLUSIONS -------- 1. Sinus rhythm. 2. This was a technically good study. 3. The left ventricular size is normal. 4. There is moderate concentric left ventricular hypertrophy. 5. There is severe global hypokinesis of LV . 6. Overall left ventricular systolic function is severely impaired with, an EF between 20 - 25 %. 7. Increased LAP Grade 3 Diastolic Dysfunction. 8. The right ventricle is normal in size. 9. LA is midly dilated 29-33ml/m2. 10. The right atrial size is normal. 11. Aortic valve is trileaflet and is mildly thickened. 12. There is moderate aortic regurgitation. 13. The mitral valve is normal. 14. The mitral valve leaflets are mildly thickened. 15. Mild mitral annular calcification present. 16. Mild mitral regurgitation is present. 17. The tricuspid valve appears structurally normal. 18. Severe tricuspid regurgitation present. 19. There is moderate to severe pulmonary hypertension. 20. The right ventricular systolic pressure, as measured by Doppler, is 50.98mmHg. 21. Moderate pulmonic regurgitation. 22. The aortic root size is normal. 23. Normal inferior vena cava with normal inspiratory collapse consistent with estimated right atrial pressure of 5 mmHg. 24. There is a small, generalized pericardial effusion present. SENIOR POWER PLANT OPERATOR: Eden Noble RDCS
[2019-07-10] MEDS ORDERED: SODIUM CHLORIDE 0.9% 250 ML IV ONE (16:04)
[2019-07-10] MEDS: MIDAZOLAM 2 MG/2 ML VIAL IV ONE ×3 (16:17→17:02)
[2019-07-10] MEDS ORDERED: LIDOCAINE 1% INJ 10MG/ML (20 ML MDV) SQ ONE ×2 (16:19→17:02)
[2019-07-10] MEDS: IOPAMIDOL-250 100ML BTL IV ONE ×4 (16:36→16:50)
[2019-07-10] MEDS: LIDOCAINE 1% INJ 10MG/ML (20 ML MDV) SQ ONE ×2 (16:44→16:45)
[2019-07-10] MEDS ORDERED: fentaNYL (PF) 50 MCG/ML 2 ML AMP IV ONE (17:02)
--- NOTE | 2019-07-10 18:31 | CONS ---
CONSULTATION REASON FOR CONSULT: End-stage renal disease. HISTORY OF PRESENT ILLNESS: Patient is a 28-year-old female with end-stage renal disease, on hemodialysis on a Wednesday, Wednesday, Wednesday schedule. The patient was admitted to the hospital with complaints of shortness of breath. She did not feel well and she also had pain at the site of her AV fistula in the left arm. Patient states that she had an aneurysmal dilatation and she felt that it had subsided with resultant pain and swelling of the AV fistula. She also had some infiltration of the needles on her last treatment as outpatient. PAST MEDICAL HISTORY: Hypertension, CHF, history of failed kidney transplant, history of polycystic kidneys, cardiomyopathy, EF 35-40%; CKD mineral bone disorder, anemia of chronic disease. PAST SURGICAL HISTORY: Cardiac catheterization, hernia repair, kidney transplant, multiple vascular surgeries with dialysis catheters as well as AV fistula and AV graft. History of depression and anxiety. PAST SOCIAL HISTORY: Negative for smoking currently. She is a former smoker. No history of drug abuse or alcohol abuse. MEDICATIONS: Medications at home prior to admission included PhosLo, Coreg, prednisone, hydralazine, Sensipar, Procardia, Xanax, Symbicort, Protonix, PhosLo, Zofran. ALLERGIES: Include HYDRALAZINE which causes rapid heart rate in the IV form. REVIEW OF SYSTEMS: As per HPI. Other systems negative. The patient denies any fever, chills or cough. PHYSICAL EXAMINATION: This morning blood pressure was 170/109, heart rate 81 per minute, she is afebrile. Examination of the heart S1, S2. Examination of the lungs, bilateral breath sounds are heard. Abdomen is soft, nontender. Examination lower extremities shows no significant edema. PONDMAN exam grossly intact. LABS: Shows sodium 134, potassium 6.5, phosphorus was 9.5 mg/dL, serum creatinine 11.5. ASSESSMENT: 1. End-stage renal disease, on hemodialysis on a Wednesday, Wednesday, Wednesday schedule as outpatient with significant hematoma noted at the site of the AV graft with no plans for treatment through the current access. Vascular Surgery has been consulted for placement of dialysis catheter for hemodialysis today. 2. Volume overload. Expect improvement post dialysis today. 3. Hyperkalemia. Expect improvement post hemodialysis today. 4. Significant hyperphosphatemia and chronic kidney disease mineral bone disorder. Continue with the PhosLo that has been ordered along with the Sensipar. 5. History of cardiomyopathy. PLAN: Consult Vascular Surgery for dialysis catheter placement and evaluation of the left arm AV graft and hematoma. We will dialyze her today and then again in a.m. Thank you for this consultation. I will continue to follow the patient with you during her hospitalization. ELISABETH / BAL: [id number] /
[2019-07-10] MEDS: ALPRAZolam 0.25 MG TAB PO PRN (22:51)
[2019-07-10] MEDS: ACETAMINOPHEN TAB 325 MG TAB PO PRN (22:51)
[2019-07-11] MEDS: MORPHINE SULFATE 2 MG/ML SYRINGE IVP PRN ×2 (01:03→04:49)
[2019-07-11 06:25] LABS: Anisocytosis Slight; HCT 33.2 % (34.0-46.0); HGB 10.5 gm/dL (11.4-16.0); Hypochromasia Moderate; MCHC 31.5 g/dL (31.0-37.0); MCV 98.4 fL (80.0-100.0); Macrocytosis Slight; Mean Platelet Volume 8.7; Platelet Count 221 k/uL (150-450); RBC 3.38 m/uL (3.80-5.40); RDW 17.9 % (11.5-15.5); WBC 4.6 k/uL (3.8-10.6)
[2019-07-11] MEDS: PANTOPRAZOLE 40 MG TABLET PO SCH (06:26)
[2019-07-11] MEDS: CALCIUM ACETATE 667 MG TAB PO SCH ×3 (06:26→17:33)
[2019-07-11] MEDS: CARVEDILOL 12.5 MG TAB PO SCH ×2 (06:26→16:31)
[2019-07-11 06:34] LABS: Calcium 8.6 mg/dL (8.4-10.2); Potassium 4.7 mmol/L (3.5-5.1)
[2019-07-11] MEDS: SYMBICORT 80-4.5 MCG INHALER INHALATION SCH ×2 (07:44→22:40)
--- NOTE | 2019-07-11 09:29 | IR ---
EXAMINATION TYPE: IR cvc insert non tunneled DATE OF EXAM: 07/10/2019 COMPARISON: NONE HISTORY: Dialysis catheter placement Fluoroscopy support supplied to the referring clinician. See dictated report from vascular surgery, 3.6 minutes fluoroscopy time, 1858 intraoperative images document the procedure
[2019-07-11] MEDS: diphenhydrAMINE 50 MG/ML 1 ML VIAL IVP PRN (09:40)
--- NOTE | 2019-07-11 10:48 | PCN ---
PROCEDURE NOTE PREOPERATIVE DIAGNOSIS: Acute chronic renal failure with high potassium and nonfunctioning fistula left upper arm. PROCEDURE: 1. Superior vena cavogram, right jugular approach. 2. Placement of a temporary dialysis catheter left femoral approach, ultrasound- guided. SEDATION TIME: One hour. This patient has history of chronic failure and had cephalobrachial fistula placed years in the past. Patient had developed large hematoma to the cephalic vein, fistula site and her potassium is more than 6.5. Patient needs urgent dialysis catheter. Patient was brought to the dental laboratory technician apprentice. Right side of the neck and chest was prepped and drapes applied in the usual sterile manner, 1% lidocaine was infiltrated right neck area. Ultrasound-guided micropuncture into the right jugular vein. The jugular vein was very large. Micropuncture guidewire was passed which we could not advance. 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 Then the left groin was prepped and drapes in a sterile manner, 1% lidocaine infiltrate in the left groin. Ultrasound-guided micropuncture introduced to the left femoral vein. This patient had a failed transplant kidney in the right pelvic area, so we decided to go to the left side. After entering the left femoral vein micropuncture guidewire was passed and 4-Estonian dilator on the fossa on the top of the guidewire. After that, the passed a regular guidewire under fluoroscopy control and the dilator was advanced on the top of the guidewire. Then we placed a temporary dialysis catheter, which was flushed with heparin saline and hep-locked and secured with 3-0 nylon. The sterile dressing applied. Patient transferred to her room and we will evaluate the fistula, now there is a large hematoma there. MMODL / IJN: [id number] /
[2019-07-11] MEDS: HYDROcodone/APAP 5-325MG 1 EACH TAB PO PRN ×2 (12:16→19:07)
[2019-07-11] MEDS: hydrALAZINE HCL 25 MG TAB PO SCH ×3 (12:17→21:53)
[2019-07-11] MEDS: CINACALCET 30 MG TAB PO SCH (12:19)
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
--- NOTE | 2019-07-11 15:30 | P.PN ---
Subjective Patient is admitted for viral upper respiratory illness followed by pulmonary edema secondary to missed hemodialysis and viral upper respiratory illness patient had a temporary catheter placement which is in inguinal area because of which unfortunately cannot discharge the patient patient fistula is partially functional which apparently need to be tested because of that reason I cannot discharge the patient and for the next couple days. Patient blood pressures fairly well controlled at this time. Objective - Vital Signs Vital signs: Vital Signs Temp 98.0 F 07/11/19 11:09 Pulse 88 07/11/19 15:10 Resp 16 07/11/19 15:10 BP 120/76 07/11/19 12:00 Pulse Ox 95 07/11/19 12:00 Intake & Output 07/10/19 07/11/19 07/11/19 18:59 06:59 18:59 Intake Total 195 120 120 Output Total 2500 2300 Balance 195 -2380 -2180 Weight 59 kg Intake: IV 75 Oral 120 120 120 Output: Urine 200 Hemodialysis 2500 2100 Other: Voiding Method Toilet # Voids 0 0 # Bowel Movements 0 0 - Exam PHYSICAL EXAMINATION: GENERAL: The patient is alert and oriented x3, not in any acute distress. Well female HEENT: Pupils are round and equally reacting to light. EOMI. No scleral icterus. No conjunctival pallor. Normocephalic, atraumatic. No pharyngeal erythema. No thyromegaly. CARDIOVASCULAR: S1 and S2 present. No murmurs, rubs, or gallops. PULMONARY: diffuse crackles bilaterally. ABDOMEN: Soft, nontender, nondistended, normoactive bowel sounds. No palpable organomegaly. MUSCULOSKELETAL: No joint swelling or deformity. EXTREMITIES: No cyanosis, clubbing, or pedal edema. NEUROLOGICAL: Gross neurological examination did not reveal any focal deficits. SKIN: No rashes. - Labs CBC & Chem 7: 07/11/19 05:51 07/11/19 05:51 Labs: Abnormal Lab Results - Last 24 Hours (Table) 07/11/19 07/11/19 Range/Units 05:51 05:51 RBC 3.38 L (3.80-5.40) m/uL Hgb 10.5 L (11.4-16.0) gm/dL Hct 33.2 L (34.0-46.0) % RDW 17.9 H (11.5-15.5) % Sodium 135 L (137-145) mmol/L BUN 61 H (7-17) mg/dL Creatinine 9.13 H* (0.52-1.04) mg/dL Glucose 115 H (74-99) mg/dL Assessment and Plan Plan: chest pain and generalized body aches musculoskeletal, rule out acute medicine syndromes elevated troponin is secondary to renal failure doesn't appear to have cardiac chest pain.cardio eval and the patient no further intervention from their perspective. -Viral upper respiratory infection. -Pulmonary edema congestive heart failure chronic systolic dysfunction with acute exacerbation, patient will need hemodialysis for treatment of her pulmonary edema. Patient doesn't make much urine patient had moderate aortic regurgitation and moderate tricuspid regurgitation and moderate pulmonary hypertension as well. Patient had a temporary hemodialysis catheter in the left inguinal area that's only access that the vascular surgeon able to find. 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
--- NOTE | 2019-07-11 18:45 | PN ---
PROGRESS NOTE Patient is seen for followup for end-stage renal disease. Yesterday patient's access had significant hematoma and therefore she could not be dialyzed through her arm through her AV fistula. Patient was evaluated by vascular surgery and had a right femoral dialysis catheter placed. She had a treatment yesterday and again this morning. The patient has narrowing of the subclavian vein and therefore she could not have the PermCath placed in the IJ. Vascular surgery plans to and hopefully we can use the AV fistula prior to her discharge in the next 1-2 days. PHYSICAL EXAMINATION: On examination today, blood pressure was 120/76, heart rate 88 per minute, patient is afebrile. Examination of the heart S1, S2. Examination of the lungs, decreased breath sounds at the bases. Abdomen is soft, nontender. Examination of lower extremities shows no significant edema. LABORATORY DATA: Her lab show sodium 135, potassium 4.7, serum creatinine 9.1, hemoglobin 10.5 g/dL, phosphorus was 9.5. ASSESSMENT: 1. End-stage renal disease, on hemodialysis on a Wednesday, Wednesday, Wednesday schedule, status post dialysis yesterday and today. 2. Hyperkalemia, improved post dialysis. 3. Fluid overload currently improved. 4. Hematoma at the site of AV fistula in the left arm, currently being rested and currently with right femoral catheter. 5. Hypertension currently controlled. PLAN: Hemodialysis again in a.m. as the patient is maintained on a Wednesday, Wednesday, Wednesday schedule as outpatient. We will rest the arm and hopefully we can use small needles in the AV fistula prior to her discharge in the next 1-2 days. MMODL / IJN: [id number] /
[2019-07-12] MEDS: HYDROcodone/APAP 5-325MG 1 EACH TAB PO PRN ×3 (01:16→20:57)
[2019-07-12] MEDS: ALPRAZolam 0.25 MG TAB PO PRN (02:05)
[2019-07-12] MEDS: SYMBICORT 80-4.5 MCG INHALER INHALATION SCH ×2 (08:11→20:26)
[2019-07-12] MEDS: hydrALAZINE HCL 25 MG TAB PO SCH ×3 (08:16→22:33)
[2019-07-12] MEDS: CALCIUM ACETATE 667 MG TAB PO SCH ×3 (08:16→16:48)
[2019-07-12] MEDS: CARVEDILOL 12.5 MG TAB PO SCH ×2 (08:17→16:48)
[2019-07-12] MEDS: PANTOPRAZOLE 40 MG TABLET PO SCH (08:17)
[2019-07-12] MEDS: diphenhydrAMINE 50 MG/ML 1 ML VIAL IVP PRN (12:54)
--- NOTE | 2019-07-12 14:39 | P.PN ---
Subjective Progress Note Date: 07/12/19 Principal diagnosis: 28-year-old female lies admitted for chest pain and cardiology was consulted cardiology evaluated the patient. Patient has minimal elevated troponins which are chronic elevation and secondary to chronic kidney disease end-stage renal disease. Concussion patient was complaining of generalized body aches flulike symptoms in-transit testing will be ordered. Patient does have sharp chest pain which appears to be musculoskeletal reproducible chest pain. Patient denied anyradiation of the chest pain patient did say that she did gain quite a bit of weight. Patient did undergo her hemodialysis although her dialysis access is barely functional because of which patient will undergo central line for dialysis access temporarily. Patient is hypokalemic. Patient does have infiltrate in the lungs which is probably fluid patient denied any fever denied any cough no clinical evidence of pneumonia.10 does have bronchovascular markings consistent with the fluid overload will need hemodialysis patient doesn't make much urine.patient's regular hemanalysis sessions or Wednesday. Patient has multiple other left leg abnormality secondary to end-stage renal disease. Patient's serum glucose is low.patient doesn't have any acute ST-T wave changes on the EKG cardiologyis managing her heart failure issue. Patient had similar pain recently for which patient had a VQ scan which showed low probably for PE patient's symptomology is not consistent with the rather viral upper respiratory infection will do influenza testing if that's negative it may be related to some other viral illness. 07/11/2019 Patient is admitted for viral upper respiratory illness followed by pulmonary edema secondary to missed hemodialysis and viral upper respiratory illness patient had a temporary catheter placement which is in inguinal area because of which unfortunately cannot discharge the patient. patient fistula is partially functional which apparently need to be tested because of that reason I cannot discharge the patient and for the next couple days. Patient blood pressures fairly well controlled at this time. 07/12/2019 Patient is lying in bed in no acute distress with no acute overnight issues. Patient states that she is feeling somewhat better than yesterday but still quite lethargic. Patient is awaiting dialysis today as her normal schedule is Wednesday/Wednesday/Fridays. The plan is to allow a few days of rest to the left AV fistula as she currently has a temporary dialysis catheter is in the left femoral area. Apparently there was some infiltration of her left AV fistula during dialysis with some aneurysmal dilatation. Dr. Phelps is following along with nephrology. Objective - Vital Signs Vital signs: Vital Signs Temp 98.3 F 07/12/19 04:48 Pulse 87 07/12/19 04:48 Resp 20 07/12/19 14:19 BP 134/84 07/12/19 04:48 Pulse Ox 93 L 07/12/19 04:48 Intake & Output 07/11/19 07/12/19 07/12/19 18:59 06:59 18:59 Intake Total 130 540 Output Total 2300 Balance -2170 540 Weight 61.5 kg Intake: IV 10 Invasive Line 1 10 Oral 120 540 Output: Urine 200 Hemodialysis 2100 Other: Voiding Method Toilet Toilet # Voids 1 # Bowel Movements 0 - Exam GENERAL: The patient is alert and oriented x3, not in any acute distress. HEENT: Pupils are round and equally reacting to light. EOMI. No scleral icterus. No conjunctival pallor. Normocephalic, atraumatic. No pharyngeal erythema. No thyromegaly. CARDIOVASCULAR: S1 and S2 present. No murmurs, rubs, or gallops. PULMONARY: diffuse crackles bilaterally. ABDOMEN: Soft, nontender, nondistended, normoactive bowel sounds. No palpable organomegaly. MUSCULOSKELETAL: No joint swelling or deformity. EXTREMITIES: No cyanosis, clubbing, or pedal edema. NEUROLOGICAL: Gross neurological examination did not reveal any focal deficits. SKIN: No rashes. - Labs CBC & Chem 7: 07/11/19 05:51 07/11/19 05:51 Assessment and Plan Assessment: -chest pain and generalized body aches musculoskeletal, rule out acute medicine syndromes elevated troponin is secondary to renal failure doesn't appear to have cardiac chest pain.cardio eval and the patient no further intervention from their perspective. -Viral upper respiratory infection. -Pulmonary edema congestive heart failure chronic systolic dysfunction with acu te exacerbation, patient will need hemodialysis for treatment of her pulmonary edema. Patient doesn't make much urine patient had moderate aortic regurgitation and moderate tricuspid regurgitation and moderate pulmonary hypertension as well. Patient had a temporary hemodialysis catheter in the left inguinal area that's only access that the vascular surgeon able to find. -Hypertension uncontrolled on admission better control now continue the same regimen now -Asthma without any acute exacerbation -status post failed renal transplant -Hyperkalemia secondary to renal failure improved now to hemodialysis. 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
--- NOTE | 2019-07-12 18:49 | PN ---
PROGRESS NOTE Patient is seen for followup for end-stage renal disease. She currently has a femoral Rosalino catheter, which we have been using for dialysis. Patient is scheduled for hemodialysis again today. She has had hematoma at her right arm AV fistula and it is currently being rested. PHYSICAL EXAMINATION: On examination this morning, blood pressure was 134/84, heart rate 87 per minute. She is afebrile. EXAMINATION OF THE HEART: S1 and S2. EXAMINATION OF THE LUNGS: Bilateral breath sounds are heard. Decreased breath sounds at the bases. ABDOMEN: Soft, nontender. Examination of lower extremities shows no evidence of edema. LABS: Labs from yesterday show potassium 4.7. Hemoglobin was 10.5 g/dL. Phosphorus was 9.5. ASSESSMENT: 1. End-stage renal disease, on hemodialysis normally on a Wednesday, Wednesday, Wednesday schedule. Currently being dialyzed out of a temporary dialysis catheter in the femoral vein, as she has developed a hematoma on her right arm at the site of the AV fistula. It is currently being rested. Vascular Surgery believes we can start using the access in the next day or two. 2. Hypertension, currently controlled. 3. Chronic kidney disease mineral bone disorder with significant hyperphosphatemia, maintained on PhosLo. The patient is also on Sensipar, which we will continue. 4. Volume overload, now improved. 5. Hyperkalemia, currently improved post dialysis. PLAN: Hemodialysis today and await vascular surgery input. MMODL / IJN: [id number] /
[2019-07-13] MEDS: HYDROcodone/APAP 5-325MG 1 EACH TAB PO PRN ×2 (04:50→12:17)
[2019-07-13] MEDS: PANTOPRAZOLE 40 MG TABLET PO SCH (08:02)
[2019-07-13] MEDS: CARVEDILOL 12.5 MG TAB PO SCH ×2 (08:02→17:06)
[2019-07-13] MEDS: CALCIUM ACETATE 667 MG TAB PO SCH ×3 (08:02→17:06)
[2019-07-13] MEDS: CINACALCET 30 MG TAB PO SCH (08:03)
[2019-07-13] MEDS: hydrALAZINE HCL 25 MG TAB PO SCH ×3 (08:03→21:26)
[2019-07-13] MEDS: SYMBICORT 80-4.5 MCG INHALER INHALATION SCH ×2 (08:53→19:50)
[2019-07-13 09:59] LABS: Calcium 8.7 mg/dL (8.4-10.2); Potassium 4.8 mmol/L (3.5-5.1)
--- NOTE | 2019-07-13 13:06 | P.PN ---
Subjective Progress Note Date: 07/13/19 Principal diagnosis: 28-year-old female lies admitted for chest pain and cardiology was consulted cardiology evaluated the patient. Patient has minimal elevated troponins which are chronic elevation and secondary to chronic kidney disease end-stage renal disease. Concussion patient was complaining of generalized body aches flulike symptoms in-transit testing will be ordered. Patient does have sharp chest pain which appears to be musculoskeletal reproducible chest pain. Patient denied anyradiation of the chest pain patient did say that she did gain quite a bit of weight. Patient did undergo her hemodialysis although her dialysis access is barely functional because of which patient will undergo central line for dialysis access temporarily. Patient is hypokalemic. Patient does have infiltrate in the lungs which is probably fluid patient denied any fever denied any cough no clinical evidence of pneumonia.10 does have bronchovascular markings consistent with the fluid overload will need hemodialysis patient doesn't make much urine.patient's regular hemanalysis sessions or Wednesday. Patient has multiple other left leg abnormality secondary to end-stage renal disease. Patient's serum glucose is low.patient doesn't have any acute ST-T wave changes on the EKG cardiologyis managing her heart failure issue. Patient had similar pain recently for which patient had a VQ scan which showed low probably for PE patient's symptomology is not consistent with the rather viral upper respiratory infection will do influenza testing if that's negative it may be related to some other viral illness. 07/11/2019 Patient is admitted for viral upper respiratory illness followed by pulmonary edema secondary to missed hemodialysis and viral upper respiratory illness patient had a temporary catheter placement which is in inguinal area because of which unfortunately cannot discharge the patient. patient fistula is partially functional which apparently need to be tested because of that reason I cannot discharge the patient and for the next couple days. Patient blood pressures fairly well controlled at this time. 07/12/2019 Patient is lying in bed in no acute distress with no acute overnight issues. Patient states that she is feeling somewhat better than yesterday but still quite lethargic. Patient is awaiting dialysis today as her normal schedule is Wednesday/Wednesday/Fridays. The plan is to allow a few days of rest to the left AV fistula as she currently has a temporary dialysis catheter is in the left femoral area. Apparently there was some infiltration of her left AV fistula during dialysis with some aneurysmal dilatation. Dr. Phelps is following along with nephrology. 07/13/2019 Patient is sitting up in bed getting ready breakfast in no acute distress. No acute overnight issues. Patient received dialysis yesterday and approximately 2500 mL removed. Currently patient's temporary dialysis catheter remains in her left groin as they are attempting to allow the left AV fistula rest there was a large hematoma present. Dr. Phelps is following. Creatinine is 7.06 today, potassium is 4.8, sodium is 136. Review of Systems: Cardiovascular: No reports of chest pain or palpitations Respiratory: No reports of shortness of breath, reports mild occasional cough GI: No reports of nausea, vomiting, or diarrhea Constitutional: No reports of fever or fatigue Objective - Vital Signs Vital signs: Vital Signs Temp 98.1 F 07/13/19 04:28 Pulse 86 07/13/19 04:28 Resp 16 07/13/19 08:00 BP 124/81 07/13/19 04:28 Pulse Ox 99 07/13/19 04:28 Intake & Output 07/12/19 07/13/19 07/13/19 18:59 06:59 18:59 Intake Total 1040 Output Total 2500 Balance -1460 Weight 61 kg Intake: Oral 540 Hemodialysis 500 Output: Hemodialysis 2500 Other: Voiding Method Toilet Toilet Toilet # Voids 0 # Bowel Movements 1 - Exam GENERAL: The patient is alert and oriented x3, not in any acute distress. HEENT: Pupils are round and equally reacting to light. EOMI. No scleral icterus. No conjunctival pallor. Normocephalic, atraumatic. No pharyngeal erythema. No thyromegaly. CARDIOVASCULAR: S1 and S2 present. No murmurs, rubs, or gallops. PULMONARY: diffuse crackles bilaterally. Slightly improved ABDOMEN: Soft, nontender, nondistended, normoactive bowel sounds. No palpable organomegaly. MUSCULOSKELETAL: No joint swelling or deformity. EXTREMITIES: No cyanosis, clubbing, or pedal edema. NEUROLOGICAL: Gross neurological examination did not reveal any focal deficits. SKIN: No rashes. - Labs CBC & Chem 7: 07/11/19 05:51 07/13/19 09:26 Labs: Abnormal Lab Results - Last 24 Hours (Table) 07/13/19 Range/Units 09:26 Sodium 136 L (137-145) mmol/L BUN 32 H (7-17) mg/dL Creatinine 7.06 H* (0.52-1.04) mg/dL Assessment and Plan Assessment: -chest pain and generalized body aches musculoskeletal, rule out acute medicine syndromes elevated troponin is secondary to renal failure doesn't appear to have cardiac chest pain.cardio eval and the patient no further intervention from their perspective. -Viral upper respiratory infection. -Pulmonary edema congestive heart failure chronic systolic dysfunction with acute exacerbation, patient will need hemodialysis for treatment of her pulmonary edema. Patient doesn't make much urine patient had moderate aortic regurgitation and moderate tricuspid regurgitation and moderate pulmonary hypertension as well. Patient had a temporary hemodialysis catheter in the left inguinal area that's only access that the vascular surgeon able to find. -Hypertension uncontrolled on admission better control now continue the same regimen now -Asthma without any acute exacerbation -status post failed renal transplant -Hyperkalemia secondary to renal failure improved now to hemodialysis. 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
--- NOTE | 2019-07-13 13:23 | CDI ---
Documentation Clarification Form Date: 07/13/2019 1:05:50 PM From: Teri Tobias RN, CCDS Admit Date: 07/09/2019 6:21:00 PM Patient Name: Rosi Winslow Visit Number: [id number] ATTENTION: The Clinical Documentation Specialists (CDI) and [facility] Coding Staff appreciate your assistance in clarifying documentation. Please respond to the clarification below the line at the bottom and electronically sign. The CDI & [facility] Coding staff will review the response and follow-up if needed. Please note: Queries are made part of the Legal Health Record. If you have any questions, please contact the author of this message via ITS. Dr. Aguila Foreman Asthma is documented in the H&P, Consult and Progress notes and requires further specificity History/risk factors: Asthma, CHF, HTN, renal disease Clinical Indicators: 07/12 Pulmonary progress notes: "Asthma without any acute exacerbation." CXR:"Redemonstration of marked cardiomegaly. 2. New right basilar opacity may represent atelectasis or developing pneumonia." Vital Signs: Temp 97.9, HR 100, RR 20, B/P 182/132, spo2 97% RA Treatment: Medication: ventolin INH Q 6 hrs, Symbicort BID Consults: Pulmonary In your professional opinion, can you please further specify the asthma w/o exacerbation with the following, if known? Severity Mild intermittent Mild persistent Moderate persistent Severe persistent Other, please specify ____ Unable to determine Form or Type Cough variant Childhood Exercise induced bronchospasm Extrinsic allergic Idiosyncratic Intrinsic nonallergic Late-onset Mixed Other, please specify____ Unable to determine (Last Revision: October 2017) MTDD
--- NOTE | 2019-07-13 17:02 | PN ---
PROGRESS NOTE Patient is seen for followup for end-stage renal disease. She will be dialyzed again tomorrow. We are not using her left arm. The patient has a hematoma on the left arm at the site of her access. It seems to be less tender. Currently patient has a femoral dialysis temporary dialysis catheter. PHYSICAL EXAMINATION: On examination, blood pressure was 132/80, heart rate 76 per minute. Patient is afebrile. EXAMINATION OF THE HEART: S1 and S2. EXAMINATION OF LUNGS: Bilateral breath sounds are heard. ABDOMEN: Soft, non-tender. Examination of lower extremities shows no evidence of edema. [employer] exam is grossly intact. LABS: Labs from today show potassium of 4.8, serum creatinine 7.0. ASSESSMENT: 1. End-stage renal disease, on hemodialysis on a Wednesday, Wednesday, Wednesday schedule, currently being dialyzed with a temporary femoral catheter, as patient has hematoma on her left arm AV fistula. Await vascular surgery input regarding the next step with the access. I am not sure if we can start using the access with small needles. 2. Hyperkalemia on initial admission, currently improved. 3. Volume overload, now improved. 4. Hypertension, currently controlled. PLAN: Discussed with Dr. Phelps regarding the left arm AV fistula. We will dialyze the patient tomorrow via the left femoral dialysis catheter. MMODL / IJN: [id number] /
[2019-07-14] MEDS: HYDROcodone/APAP 5-325MG 1 EACH TAB PO PRN ×2 (00:24→23:39)
[2019-07-14] MEDS: ALPRAZolam 0.25 MG TAB PO PRN (03:33)
[2019-07-14] MEDS: SYMBICORT 80-4.5 MCG INHALER INHALATION SCH ×2 (07:14→19:26)
[2019-07-14] MEDS: CALCIUM ACETATE 667 MG TAB PO SCH ×3 (07:21→16:47)
[2019-07-14] MEDS: CARVEDILOL 12.5 MG TAB PO SCH ×2 (07:21→16:46)
[2019-07-14] MEDS: PANTOPRAZOLE 40 MG TABLET PO SCH (07:21)
[2019-07-14] MEDS: hydrALAZINE HCL 25 MG TAB PO SCH ×3 (07:21→21:00)
--- NOTE | 2019-07-14 09:51 | CDI ---
Documentation Clarification Form Date: 07/13/2019 1:05:00 PM From: Teri Tobias RN, CCDS Admit Date: 07/09/2019 6:21:00 PM Patient Name: Rosi Winslow Visit Number: [id number] ATTENTION: The Clinical Documentation Specialists (CDI) and [facility] Coding Staff appreciate your assistance in clarifying documentation. Please respond to the clarification below the line at the bottom and electronically sign. The CDI & [facility] Coding staff will review the response and follow-up if needed. Please note: Queries are made part of the Legal Health Record. If you have any questions, please contact the author of this message via ITS. Dr. Roman Rivera Asthma is documented in the H&P, Consult and Progress notes and requires further specificity History/risk factors: Asthma, CHF, HTN, renal disease Clinical Indicators: 07/12 Pulmonary progress notes: "Asthma without any acute exacerbation." CXR:"Redemonstration of marked cardiomegaly. 2. New right basilar opacity may represent atelectasis or developing pneumonia." Vital Signs: Temp 97.9, HR 100, RR 20, B/P 182/132, spo2 97% RA Treatment: Medication: Ventolin INH Q 6 hrs, Symbicort BID Consults: Pulmonary In your professional opinion, can you please further specify the asthma w/o exacerbation with the following, if known? Severity Mild intermittent Mild persistent Moderate persistent Severe persistent Other, please specify ____ Unable to determine Form or Type Cough variant Childhood Exercise induced bronchospasm Extrinsic allergic Idiosyncratic Intrinsic nonallergic Late-onset Mixed Other, please specify____ Unable to determine (Last Revision: October 2017) MTDD
[2019-07-14] MEDS: diphenhydrAMINE 50 MG/ML 1 ML VIAL IVP PRN (10:38)
[2019-07-14 11:23] VITALS: BMI 24.3
--- NOTE | 2019-07-14 15:07 | P.PN ---
<Mona Bhatt - Last Filed: 07/14/19 15:03> Subjective Progress Note Date: 07/14/19 Principal diagnosis: 28-year-old female lies admitted for chest pain and cardiology was consulted cardiology evaluated the patient. Patient has minimal elevated troponins which are chronic elevation and secondary to chronic kidney disease end-stage renal disease. Concussion patient was complaining of generalized body aches flulike symptoms in-transit testing will be ordered. Patient does have sharp chest pain which appears to be musculoskeletal reproducible chest pain. Patient denied anyradiation of the chest pain patient did say that she did gain quite a bit of weight. Patient did undergo her hemodialysis although her dialysis access is barely functional because of which patient will undergo central line for dialysis access temporarily. Patient is hypokalemic. Patient does have infiltrate in the lungs which is probably fluid patient denied any fever denied any cough no clinical evidence of pneumonia.10 does have bronchovascular markings consistent with the fluid overload will need hemodialysis patient doesn't make much urine.patient's regular hemanalysis sessions or Wednesday. Patient has multiple other left leg abnormality secondary to end-stage renal disease. Patient's serum glucose is low.patient doesn't have any acute ST-T wave changes on the EKG cardiologyis managing her heart failure issue. Patient had similar pain recently for which patient had a VQ scan which showed low probably for PE patient's symptomology is not consistent with the rather viral upper respiratory infection will do influenza testing if that's negative it may be related to some other viral illness. 07/11/2019 Patient is admitted for viral upper respiratory illness followed by pulmonary edema secondary to missed hemodialysis and viral upper respiratory illness patient had a temporary catheter placement which is in inguinal area because of which unfortunately cannot discharge the patient. patient fistula is partially functional which apparently need to be tested because of that reason I cannot discharge the patient and for the next couple days. Patient blood pressures fairly well controlled at this time. 07/12/2019 Patient is lying in bed in no acute distress with no acute overnight issues. Patient states that she is feeling somewhat better than yesterday but still q uite lethargic. Patient is awaiting dialysis today as her normal schedule is Wednesday/Wednesday/Fridays. The plan is to allow a few days of rest to the left AV fistula as she currently has a temporary dialysis catheter is in the left femoral area. Apparently there was some infiltration of her left AV fistula during dialysis with some aneurysmal dilatation. Dr. Phelps is following along with nephrology. 07/13/2019 Patient is sitting up in bed getting ready breakfast in no acute distress. No acute overnight issues. Patient received dialysis yesterday and approximately 2500 mL removed. Currently patient's temporary dialysis catheter remains in her left groin as they are attempting to allow the left AV fistula rest there was a large hematoma present. Dr. Phelps is following. Creatinine is 7.06 today, potassium is 4.8, sodium is 136. Review of Systems: Cardiovascular: No reports of chest pain or palpitations Respiratory: No reports of shortness of breath, reports mild occasional cough GI: No reports of nausea, vomiting, or diarrhea Constitutional: No reports of fever or fatigue 07/14/2019 Patient is lying in bed in no acute distress with no acute overnight issues. Patient is currently receiving dialysis through the left groin and states that the site is very tender and makes it very uncomfortable for her to get up and out of bed. Awaiting for Dr. Phelps to see the patient today as the hematoma is currently still present at the left AV fistula. Currently patient denies any chest pain, shortness of breath, or palpitations. Patient is afebrile. Patient denies any nausea or vomiting but did have some mild abdominal discomfort after eating lunch today. Beta hCG is negative. Will continue to monitor closely. Objective - Vital Signs Vital signs: Vital Signs Temp 98.3 F 07/14/19 14:34 Pulse 80 07/14/19 14:34 Resp 16 07/14/19 14:34 BP 139/88 07/14/19 14:34 Pulse Ox 92 L 07/14/19 12:30 Intake & Output 07/13/19 07/14/19 07/14/19 18:59 06:59 18:59 Intake Total 300 Output Total 2300 Balance -2000 Weight 60.5 kg 60.5 kg Intake: Hemodialysis 300 Output: Hemodialysis 2300 Other: Voiding Method Toilet Toilet Toilet # Voids 2 0 0 # Bowel Movements 1 - Exam GENERAL: The patient is alert and oriented x3, not in any acute distress. HEENT: Pupils are round and equally reacting to light. EOMI. No scleral icterus. No conjunctival pallor. Normocephalic, atraumatic. No pharyngeal erythema. No thyromegaly. CARDIOVASCULAR: S1 and S2 present. No murmurs, rubs, or gallops. PULMONARY: diffuse crackles bilaterally. Slightly improved ABDOMEN: Soft, nontender, nondistended, normoactive bowel sounds. No palpable organomegaly. MUSCULOSKELETAL: No joint swelling or deformity. EXTREMITIES: No cyanosis, clubbing, or pedal edema. Left groin at the temporary dialysis catheter site is tender upon palpation and movement NEUROLOGICAL: Gross neurological examination did not reveal any focal deficits. SKIN: No rashes. - Labs CBC & Chem 7: 07/11/19 05:51 07/13/19 09:26 Assessment and Plan Assessment: -chest pain and generalized body aches musculoskeletal, rule out acute medicine syndromes elevated troponin is secondary to renal failure doesn't appear to have cardiac chest pain.cardio eval and the patient no further intervention from their perspective. -Viral upper respiratory infection. -Pulmonary edema congestive heart failure chronic systolic dysfunction with acute exacerbation, patient will need hemodialysis for treatment of her pulmonary edema. Patient doesn't make much urine patient had moderate aortic regurgitation and moderate tricuspid regurgitation and moderate pulmonary hypertension as well. Patient has a temporary hemodialysis catheter in the left inguinal area that's only access that the vascular surgeon able to find. -Hypertension uncontrolled on admission better control now continue the same regimen now -Asthma without any acute exacerbation -status post failed renal transplant -Hyperkalemia secondary to renal failure improved now to hemodialysis. 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 <Boyd,Rhys E - Last Filed: 07/15/19 00:19> Subjective Principal diagnosis: I have discussed the plan and I have reviewed the note with RADIOLOGICAL EQUIPMENT SPECIALIST Katey Dunn and I agree with it except what is mentioned below Pt is seen and examined by me at bed side pt is seen while getting HD today through her left inguinal catheter, her left forearm AV fistula is complicated with hematoma from previous dialysis use, thr ill is present. pt has difficulty walking because her left inguinal cath causes pain with movement. nephrology and vascular surgery are following the case pt states has irregular menstrual cycle and her LMP was about 2 week ago, her HCG in serum was negative , no active bleeding currently we will keep to follow up and monitor pt Objective - Vital Signs Vital signs: Vital Signs Temp 98.6 F 07/14/19 21:00 Pulse 89 07/14/19 21:00 Resp 18 07/14/19 21:00 BP 112/74 07/14/19 21:00 Pulse Ox 100 07/14/19 21:00 Intake & Output 07/14/19 07/14/19 07/15/19 06:59 18:59 06:59 Intake Total 540 375 Output Total 2300 Balance -1760 375 Weight 60.5 kg 60.5 kg Intake: Oral 240 375 Hemodialysis 300 Output: Hemodialysis 2300 Other: Voiding Method Toilet Toilet # Voids 0 0 1 # Bowel Movements 1 0 - Labs CBC & Chem 7: 07/11/19 05:51 07/13/19 09:26
[2019-07-14] MEDS: ACETAMINOPHEN TAB 325 MG TAB PO PRN (16:54)
--- NOTE | 2019-07-14 18:26 | PN ---
PROGRESS NOTE Patient is seen for followup for end-stage renal disease. Patient will be dialyzed. She has a femoral catheter. She continues to have the hematoma in the right arm at the site of her AV fistula. I discussed with Vascular Surgery. Plan is to place a femoral PermCath, as the patient will need time for the hematoma to subside and she will also need to have a fistulogram done, which will be done at the [facility] in [place]. PHYSICAL EXAMINATION: On examination this morning, blood pressure was 131/81, heart rate of 78 per minute. Patient is afebrile. EXAMINATION OF THE HEART: S1 and S2. EXAMINATION OF LUNGS: Bilateral breath sounds are heard. ABDOMEN: Soft, non-tender. Examination of lower extremities shows no evidence of edema. LABS: Sodium 136, potassium 4.8. ASSESSMENT: End-stage renal disease, on hemodialysis on a Wednesday, Wednesday, Wednesday schedule, currently being dialyzed via femoral catheter. She will have a femoral PermCath placed and the plan is to proceed with fistulogram and assessment of her access as outpatient on Wednesday. MMODL / IJN: [id number] /
[2019-07-15] MEDS: SYMBICORT 80-4.5 MCG INHALER INHALATION SCH (07:15)
[2019-07-15] MEDS: fentaNYL (PF) 50 MCG/ML 2 ML AMP IV ONE ×2 (07:35→07:49)
[2019-07-15] MEDS ORDERED: MIDAZOLAM 2 MG/2 ML VIAL IV ONE ×2 (07:38→07:42)
[2019-07-15] MEDS: LIDOCAINE 1% INJ 10MG/ML (20 ML MDV) SQ ONE ×2 (07:41→07:50)
[2019-07-15] MEDS ORDERED: SODIUM CHLORIDE 0.9% 250 ML IV ONE (07:45)
[2019-07-15] MEDS ORDERED: IOPAMIDOL-370 50ML BTL INJ ONE (08:00)
[2019-07-15] MEDS ORDERED: HYDROmorphone 1 MG/ML 1 ML SYRINGE IVP ONE (08:10)
[2019-07-15] MEDS ORDERED: HEPARIN SODIUM 1,000 UN/ML (10ML VL) MISCELLANE ONE (08:18)
[2019-07-15] MEDS: PANTOPRAZOLE 40 MG TABLET PO SCH (08:53)
[2019-07-15] MEDS: hydrALAZINE HCL 25 MG TAB PO SCH (08:53)
[2019-07-15] MEDS: CALCIUM ACETATE 667 MG TAB PO SCH ×2 (08:53→13:36)
[2019-07-15] MEDS: CARVEDILOL 12.5 MG TAB PO SCH (08:53)
[2019-07-15] MEDS: CINACALCET 30 MG TAB PO SCH (08:54)
--- NOTE | 2019-07-15 09:51 | PCN ---
PROCEDURE NOTE PREOPERATIVE DIAGNOSES: 1. Nonfunctioning left arm AV fistula. 2. 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 3. Renal failure. PROCEDURE: Placement of a 20 cm dialysis catheter left femoral approach. HISTORY: This patient had a have a very high potassium and she needed urgent dialysis catheter. She went through the temporary dialysis catheter placement and today we exchanged this catheter with placement of 20 cm permanent catheter. DESCRIPTION OF PROCEDURE: The patient was brought to the operating room. Left groin was prepped and drapes applied in the usual sterile manner. 2 g of Kefzol was given. After that, 1% lidocaine with IV sedation used to access the femoral vein. A guide was passed under fluoroscopy control and a tunnel was created. Through the tunnel, we brought 20 cm permanent dialysis catheter. After that, sheath was advanced on the top of the guidewire. After removing the temporary catheter and through the sheath, we introduced the dialysis catheter. The dialysis catheter was below the renal vein. There was a free flow noted and flushed with heparin saline and hep-locked. Incision was closed with Vicryl and skin and secured with 3-0 nylon. Pressure dressing applied. PLAN: Complete bedrest for 4 hours. The patient will be needing some intervention for cephalic brachial fistula. I have discussed with Dr. Kirby. The patient tolerated the procedure well. MMODL / IJN: [id number] /
--- NOTE | 2019-07-15 10:51 | PN ---
PROGRESS NOTE Patient is seen for followup for end-stage renal disease. She had a femoral PermCath placed this morning. The patient can be discharged from nephrology standpoint. She will follow up with vascular surgery at [facility] for further fistulogram and intervention on her left arm AV fistula. At this time, patient is complaining of pain. She denies any other complaints. PHYSICAL EXAMINATION: On examination, blood pressure is 123/77, heart rate 95 per minute. She is afebrile. Examination of the heart S1, S2. Examination of the lungs, bilateral breath sounds are heard. ABDOMEN: Soft, nontender. Examination of lower extremities shows no significant edema. LABS SHOW: Potassium 4.8, sodium 136. Creatinine is 7.06. ASSESSMENT: 1. End-stage renal disease, on hemodialysis on a Wednesday, Wednesday, Wednesday schedule. Patient will be dialyzed on Wednesday as outpatient. 2. Hematoma, left arm AV fistula for further intervention and fistulogram at [facility] out [facility] on Wednesday possibly Wednesday. We will arrange this through the outpatient dialysis unit. 3. Hyperkalemia currently resolved. 4. Volume overload now improved. 5. Hypertension, partly volume sensitive, now improved. PLAN: Patient can be discharged from nephrology standpoint. She will follow up with outpatient dialysis on Wednesday. MMODL / IJN: [id number] /
[2019-07-15] MEDS: HYDROcodone/APAP 5-325MG 1 EACH TAB PO PRN (11:17)
[2019-07-15 14:45] VITALS: BP 149/88; PULSE 79; RESP 14; TEMP 97.9
--- NOTE | 2019-07-15 15:09 | P.DS ---
Providers Date of admission: 07/09/19 18:21 Attending physician: Jose Pradhan MD Consults: 07/09/19 18:20 Consult Physician Urgent Consulting Provider: Francisco Snow Consult Reason/Comments: Chronic renal failure, elevated potassium Do you want consulting provider notified?: Yes 07/09/19 21:33 Consult Physician Urgent Consulting Provider: Adebayo Vizcaino Consult Reason/Comments: Elevated Trop, CHF Do you want consulting provider notified?: Yes, Notify in am 07/09/19 22:01 Consult Physician Routine Consulting Provider: Suresh Phelps Consult Reason/Comments: Infiltrated Fistula Do you want consulting provider notified?: Yes, Notify in am Primary care physician: Nestor Hernandez Hospital Course: diagnoses: -chest pain and generalized body aches musculoskeletal, resolved -end-stage renal disease on hemodialysis -Viral upper respiratory infection. -Pulmonary edema with acute and chronic systolic heart failure , improved -Hypertension uncontrolled on admission better control now continue the same regimen now -valvular heart disease including moderate tricuspid regurgitation and moderate pulmonary hypertension -Asthma without any acute exacerbation -status post failed renal transplant -Hyperkalemia secondary to renal failure improved now to hemodialysis. 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 Hospital course: 28-year-old female -[place] patientadmitted for chest pain and cardiology was consulted cardiology evaluated the patient. Patient has minimal elevated troponins which are chronic elevation and secondary to chronic kidney disease end-stage renal disease. patient was evaluated by front office director with don't think that her pain is from her heart, eventually her pain improved. history of valvular heart disease, echocardiogram with Doppler study performed in November revealed an ejection fraction of 35-40%, LA is severely dilated, mild to moderate aortic regurg, mild mitral regurgitation and moderate tricuspid regurg with moderate pulmonary hypertension. on admission pt was getting HD during this admission through temporal left inguinal catheter, her left forearm AV fistula is complicated with hematoma from previous dialysis use, thrill is present.as a result vascular surgeon took the left inguinal catheter out today and place a permacath for temporal dialysis and she will follow-up as an outpatient with both her dialysis center and with her vascular surgeon and photoflash powder mixer. On the day of discharge patient denies other symptoms. She denies chest pain or dyspnea. No abdominal pain. No nausea vomiting. She has some bruising from her permacath site which is controlled prior to discharge the patient also was noted to able to ambulate while the catheter in. patient was cleared for discharge by both photoflash powder mixer and Dr. Phelps from vascular surgery Problems and management plan were discussed with the patient and he verbalized understanding and acceptance Patient was found stable and can be discharged home however he needs follow-up as an outpatient. Patient was instructed to follow up with PCP within one week and patient agrees. Gen: patient is a AAOx3, no distress CVS: S1-S2, RRR, no murmur Lungs: B/L CTA, no wheezing Abdomen: soft, no distention, no tenderness, positive bowel sounds Extremity: no leg edema or induration. She has left permacath in the left inguinal thigh area with no active bleeding. Patient she has a left forearm fistula with thrill present Time spent more than 35 minutes Plan - Discharge Summary Discharge Rx Participant: No New Discharge Prescriptions: New NIFEdipine XL [Procardia XL] 60 mg PO DAILY #30 tab.er.24 Continue Albuterol Sulfate [Proair Hfa] 2 puff INHALATION RT-Q6H PRN PRN Reason: Shortness Of Breath Calcium Acetate [PhosLo] 1,334 mg PO AC-TID Carvedilol [Coreg] 25 mg PO BID hydrALAZINE HCL [Apresoline] 100 mg PO TID Cinacalcet HCl [Sensipar] 60 mg PO TUTHSA traZODone HCL [Desyrel] 50 mg PO HS PRN PRN Reason: Insomnia Lidocaine-Prilocaine Cream [Emla Cream 2.5%/2.5%] 1 applic TOPICAL DAILY PRN PRN Reason: DIALYSIS NIFEdipine [Procardia XL] 60 mg PO DAILY Acetaminophen Tab [Tylenol] 650 mg PO Q6H PRN PRN Reason: Pain ALPRAZolam [Xanax] 0.25 mg PO HS PRN PRN Reason: Anxiety Budesonide/Formoterol Fumarate [Symbicort 80-4.5 Mcg Inhaler] 2 puff INHALATION RT-BID Pantoprazole [Protonix] 40 mg PO QAM Calcium Acetate [PhosLo] 1,334 mg PO BID PRN PRN Reason: SNACKS Ondansetron Odt [Zofran ODT] 8 mg SUBLINGUAL Q8H PRN PRN Reason: Nausea Discontinued predniSONE 10 mg PO DAILY Discharge Medication List Albuterol Sulfate [Proair Hfa] 2 puff INHALATION RT-Q6H PRN 01/22/16 [History] Calcium Acetate [PhosLo] 1,334 mg PO AC-TID 05/01/18 [History] Carvedilol [Coreg] 25 mg PO BID 05/28/18 [History] hydrALAZINE HCL [Apresoline] 100 mg PO TID 11/16/18 [History] Cinacalcet HCl [Sensipar] 60 mg PO TUTHSA 02/26/19 [History] Lidocaine-Prilocaine Cream [Emla Cream 2.5%/2.5%] 1 applic TOPICAL DAILY PRN 05/24/19 [History] traZODone HCL [Desyrel] 50 mg PO HS PRN 05/24/19 [History] Acetaminophen Tab [Tylenol] 650 mg PO Q6H PRN 06/10/19 [History] NIFEdipine [Procardia XL] 60 mg PO DAILY 06/10/19 [History] ALPRAZolam [Xanax] 0.25 mg PO HS PRN 07/03/19 [History] Budesonide/Formoterol Fumarate [Symbicort 80-4.5 Mcg Inhaler] 2 puff INHALATION RT-BID 07/09/19 [History] Calcium Acetate [PhosLo] 1,334 mg PO BID PRN 07/09/19 [History] Pantoprazole [Protonix] 40 mg PO QAM 07/09/19 [History] Ondansetron Odt [Zofran ODT] 8 mg SUBLINGUAL Q8H PRN 07/10/19 [History] NIFEdipine XL [Procardia XL] 60 mg PO DAILY #30 tab.er.24 07/11/19 [Rx] Follow up Appointment(s)/Referral(s): Mary Baez MD [Primary Care Provider] - 1-2 days Patient Instructions/Handouts: Dialysis Diet (DC), Perma-cath Placement (DC)
--- NOTE | 2019-07-17 15:33 | IR ---
Fluoroscopy HISTORY: Renal failure, dialysis catheter placement 3 minutes fluoroscopy time supplied to the referring clinician. 772 intraoperative C-arm images docu ment the procedure. See dictated report from vascular surgery.
== END 2019-07-15 16:22 | disposition home or self-care (01) | DRG 313 ==
LOC: EC 15:59 → 3SCARD 18:21 → 4MS4W 07-11 17:14
PROVIDERS: ADMIT Internal Medicine; ATTEND Internal Medicine
PROC: 5A1D70Z Performance of Urinary Filtration, Intermittent, Less than 6 Hours Per Day (ICD-10-PCS; principal; 2019-07-10 11:45)
PROC: 06HY33Z Insertion of Infusion Device into Lower Vein, Percutaneous Approach (ICD-10-PCS; 2019-07-11)
PROC: B5181ZZ Fluoroscopy of Superior Vena Cava using Low Osmolar Contrast (ICD-10-PCS; 2019-07-11)
PROC: 06HY33Z Insertion of Infusion Device into Lower Vein, Percutaneous Approach (ICD-10-PCS; 2019-07-15)
DX: R07.89 Other chest pain (principal); N18.6 End stage renal disease; I50.23 Acute on chronic systolic (congestive) heart failure; I13.2 Hypertensive heart and chronic kidney disease with heart failure and with stage 5 chronic kidney disease, or end stage renal disease; T86.12 Kidney transplant failure; Q61.3 Polycystic kidney, unspecified; I31.3 Pericardial effusion (noninflammatory); T82.898A Other specified complication of vascular prosthetic devices, implants and grafts, initial encounter; I42.8 Other cardiomyopathies; I27.20 Pulmonary hypertension, unspecified; D63.1 Anemia in chronic kidney disease; E83.9 Disorder of mineral metabolism, unspecified; E83.39 Other disorders of phosphorus metabolism; I16.0 Hypertensive urgency; I08.3 Combined rheumatic disorders of mitral, aortic and tricuspid valves; I37.1 Nonrheumatic pulmonary valve insufficiency; M79.18 Myalgia, other site; J06.9 Acute upper respiratory infection, unspecified; E87.5 Hyperkalemia; J45.909 Unspecified asthma, uncomplicated; E55.9 Vitamin D deficiency, unspecified; F32.9 Major depressive disorder, single episode, unspecified; F41.9 Anxiety disorder, unspecified; G89.29 Other chronic pain; R26.2 Difficulty in walking, not elsewhere classified; M54.5 Low back pain; R79.89 Other specified abnormal findings of blood chemistry; R94.31 Abnormal electrocardiogram [ECG] [EKG]; Z99.2 Dependence on renal dialysis; Z79.51 Long term (current) use of inhaled steroids; Z79.52 Long term (current) use of systemic steroids; Z79.899 Other long term (current) drug therapy; Z87.891 Personal history of nicotine dependence; Z91.5 Personal history of self-harm; Z98.890 Other specified postprocedural states; Z88.8 Allergy status to other drugs, medicaments and biological substances; Y71.2 Prosthetic and other implants, materials and accessory cardiovascular devices associated with adverse incidents; Z87.42 Personal history of other diseases of the female genital tract
CPT/HCPCS: 36415; 36556; 36558; 71046; 75827; 76937; 77001; 80048; 80053; 83735; 83880; 84100; 84132; 84484; 84703; 85025; 85027; 85610; 85730; 87502; 90935; 93005; 93306; 96374; 96375; 99291

== ENCOUNTER 2019-07-22 23:08 | Inpatient (IN) | payer BC, MEDICARE, OTHER ==
--- NOTE | 2019-07-22 23:48 | ED ---
General Adult HPI - General Chief complaint: Shortness of Breath Stated complaint: JEAN Time Seen by Provider: 07/22/19 23:35 Source: patient Mode of arrival: wheelchair Limitations: no limitations - History of Present Illness Initial comments: Patient presents to the ED complaining of feeling short of breath today. Patient states that she is normally dialyzed on Wednesday, Wednesday and Wednesday, but she had an extra dialysis session this morning (Wednesday), and she states that she still feels short of breath. Patient is also complaining of having diffuse myalgias. Patient denies making any urine. Patient denies trauma or injury, fever or chills, headache, focal neuro deficit, chest pain, cough or cold symptoms, palpitations, dizziness, abdominal pain, nausea/vomiting/diarrhea, or any other symptoms or complaints. Patient states that she got a ride to the [email or web address]. - Related Data Home Medications Medication Instructions Recorded Confirmed Albuterol Sulfate [Proair Hfa] 2 puff INHALATION RT-Q6H PRN 01/22/16 07/09/19 Calcium Acetate [PhosLo] 1,334 mg PO AC-TID 05/01/18 07/09/19 Carvedilol [Coreg] 25 mg PO BID 05/28/18 07/09/19 hydrALAZINE HCL [Apresoline] 100 mg PO TID 11/16/18 07/09/19 Cinacalcet HCl [Sensipar] 60 mg PO TUTHSA 02/26/19 07/09/19 Lidocaine-Prilocaine Cream [Emla 1 applic TOPICAL DAILY PRN 05/24/19 07/09/19 Cream 2.5%/2.5%] traZODone HCL [Desyrel] 50 mg PO HS PRN 05/24/19 07/09/19 Acetaminophen Tab [Tylenol] 650 mg PO Q6H PRN 06/10/19 07/09/19 NIFEdipine [Procardia XL] 60 mg PO DAILY 06/10/19 07/09/19 ALPRAZolam [Xanax] 0.25 mg PO HS PRN 07/03/19 07/09/19 Budesonide/Formoterol Fumarate 2 puff INHALATION RT-BID 07/09/19 07/09/19 [Symbicort 80-4.5 Mcg Inhaler] Calcium Acetate [PhosLo] 1,334 mg PO BID PRN 07/09/19 07/09/19 Pantoprazole [Protonix] 40 mg PO QAM 07/09/19 07/09/19 Ondansetron Odt [Zofran ODT] 8 mg SUBLINGUAL Q8H PRN 07/10/19 07/10/19 Previous Rx's Medication Instructions Recorded NIFEdipine XL [Procardia XL] 60 mg PO DAILY #30 tab.er.24 07/11/19 HYDROcodone/APAP 5-325MG [[place] 1 each PO Q6HR PRN #2 tab 07/15/19 5-325] HYDROcodone/APAP 5-325MG [[place] 1 tab PO DAILY PRN #2 tab 07/15/19 5-325] cloNIDine 0.1 MG/24HR PATCH 1 patch TRANSDERM Q7D #30 patch 07/15/19 [Catapres-TTS] Allergies Allergy/AdvReac Type Severity Reaction Status Date / Time hydralazine AdvReac Rapid Verified 07/22/19 23:20 Heart Rate WHEN GIVEN THROUGH IV Review of Systems ROS Statement: Those systems with pertinent positive or pertinent negative responses have been documented in the HPI. ROS Other: All systems not noted in ROS Statement are negative. 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 Past Anesthesia/Blood Transfusion Reactions: No Reported Reaction Additional Past Anesthesia/Blood Transfusion Reaction / Comment(s): Pt has received blood in past without reaction. Past Psychological History: Anxiety, Depression Smoking Status: Former smoker Past Alcohol Use History: None Reported Past Drug Use History: None Reported - Past Family History Father Family Medical History: No Reported History Additional Family Medical History / Comment(s): Father is healthy and is 62 yrs old. Mother Family Medical History: No Reported History Additional Family Medical History / Comment(s): Mother is healthy and is 60 yrs old. General Exam Limitations: no limitations General appearance: alert, in no apparent distress Head exam: Present: atraumatic, normocephalic Eye exam: Present: normal appearance, EOMI ENT exam: Present: mucous membranes moist Neck exam: Present: other (Trachea is in midline) Respiratory exam: Present: normal lung sounds bilaterally. Absent: respiratory distress, wheezes, rales, rhonchi Cardiovascular Exam: Present: regular rate, normal rhythm, normal heart sounds GI/Abdominal exam: Present: soft. Absent: distended, tenderness, guarding Extremities exam: Present: pedal edema, other (Negative Tiffanie's sign bilaterally; left upper arm fistula with palpable thrill). Absent: tenderness, calf tenderness Neurological exam: Present: alert, oriented X3. Absent: motor sensory deficit Psychiatric exam: Present: normal affect Skin exam: Present: warm, dry, intact, normal color Course Vital Signs 07/22/19 23:17 Temperature 97.2 F L Pulse Rate 90 Respiratory 24 Rate Blood Pressure 159/104 O2 Sat by Pulse 99 Oximetry - Reevaluation(s) Reevaluation #1: 07/23/19 01:04 Case, H&P, test results and ED management were discussed with Dr. Rivera. He accepts hospital floor admission. He recommends placing an order for nephrology consultation. He has no further recommendations at this time. 07/23/19 01:17 Patient denies development of any new symptoms while in the ED. Patient remains alert and breathing comfortably with a normal room air oxygen saturation. Patient is aware of her test results, and she agrees with hospital admission at this time. EKG Findings - EKG Comments: EKG Findings:: Sinus rhythm with first-degree AV block, ventricular rate of 89 bpm, MI interval of 216 ms, normal QRS interval, prolonged QTc interval of 515 ms, leftward axis, EKG findings of left ventricular hypertrophy with strain pattern, no significant change from 07/09/2019 EKG Medical Decision Making - Medical Decision Making Given the patient's symptoms, elevated potassium level, and minimally elevated troponin, will admit the patient to the hospital for further evaluation and monitoring. Patient's EKG shows no change when compared to her prior, and patient denies having any chest pain. Patient was treated with a dose of aspirin, as well as hyperkalemia medications, in the ED. Dr. Rivera has accepted hospital admission. - Lab Data Result diagrams: 07/22/19 23:53 07/22/19 23:53 Lab Results 07/22/19 07/22/19 07/22/19 Range/Units 23:53 23:53 23:53 WBC 4.8 (3.8-10.6) k/uL RBC 3.10 L (3.80-5.40) m/uL Hgb 9.4 L (11.4-16.0) gm/dL Hct 29.6 L (34.0-46.0) % MCV 95.2 (80.0-100.0) fL MCH 30.4 (25.0-35.0) pg MCHC 31.9 (31.0-37.0) g/dL RDW 16.7 H (11.5-15.5) % Plt Count 201 (150-450) k/uL Neutrophils % 61 % Lymphocytes % 24 % Monocytes % 6 % Eosinophils % 6 % Basophils % 1 % Neutrophils # 2.9 (1.3-7.7) k/uL Lymphocytes # 1.2 (1.0-4.8) k/uL Monocytes # 0.3 (0-1.0) k/uL Eosinophils # 0.3 (0-0.7) k/uL Basophils # 0.0 (0-0.2) k/uL Hypochromasia Moderate Anisocytosis Slight PT 14.0 H (9.0-12.0) sec INR 1.4 H (<1.2) APTT 26.3 (22.0-30.0) sec Sodium 135 L (137-145) mmol/L Potassium 6.0 H (3.5-5.1) mmol/L Chloride 93 L (98-107) mmol/L Carbon Dioxide 27 (22-30) mmol/L Anion Gap 15 mmol/L BUN 56 H (7-17) mg/dL Creatinine 7.31 H* (0.52-1.04) mg/dL Est GFR (CKD-EPI)AfAm 8 (>60 ml/min/1.73 sqM) Est GFR (CKD-EPI)NonAf 7 (>60 ml/min/1.73 sqM) Glucose 70 L (74-99) mg/dL Calcium 8.9 (8.4-10.2) mg/dL Total Bilirubin 1.5 H (0.2-1.3) mg/dL AST 35 (14-36) U/L ALT 13 (4-34) U/L Alkaline Phosphatase 85 (38-126) U/L Troponin I (0.000-0.034) ng/mL Total Protein 7.8 (6.3-8.2) g/dL Albumin 4.2 (3.5-5.0) g/dL 07/22/19 Range/Units 23:53 WBC (3.8-10.6) k/uL RBC (3.80-5.40) m/uL Hgb (11.4-16.0) gm/dL Hct (34.0-46.0) % MCV (80.0-100.0) fL MCH (25.0-35.0) pg MCHC (31.0-37.0) g/dL RDW (11.5-15.5) % Plt Count (150-450) k/uL Neutrophils % % Lymphocytes % % Monocytes % % Eosinophils % % Basophils % % Neutrophils # (1.3-7.7) k/uL Lymphocytes # (1.0-4.8) k/uL Monocytes # (0-1.0) k/uL Eosinophils # (0-0.7) k/uL Basophils # (0-0.2) k/uL Hypochromasia Anisocytosis PT (9.0-12.0) sec INR (<1.2) APTT (22.0-30.0) sec Sodium (137-145) mmol/L Potassium (3.5-5.1) mmol/L Chloride (98-107) mmol/L Carbon Dioxide (22-30) mmol/L Anion Gap mmol/L BUN (7-17) mg/dL Creatinine (0.52-1.04) mg/dL Est GFR (CKD-EPI)AfAm (>60 ml/min/1.73 sqM) Est GFR (CKD-EPI)NonAf (>60 ml/min/1.73 sqM) Glucose (74-99) mg/dL Calcium (8.4-10.2) mg/dL Total Bilirubin (0.2-1.3) mg/dL AST (14-36) U/L ALT (4-34) U/L Alkaline Phosphatase (38-126) U/L Troponin I 0.067 H* (0.000-0.034) ng/mL Total Protein (6.3-8.2) g/dL Albumin (3.5-5.0) g/dL - Radiology Data Radiology results: image reviewed (Chest x-ray shows cardiomegaly and mild pulmonary vascular congestion) Disposition Clinical Impression: Dyspnea, Elevated troponin, Hyperkalemia, Chronic renal failure Disposition: ADMITTED IP TO THIS [facility] Condition: Stable Is patient prescribed a controlled substance at d/c from ED?: No Referrals: Mary Baez MD [Primary Care Provider] - 1-2 days Time of Disposition: 01:04 Decision Date: 07/23/19 Decision Time: 01:00
[2019-07-23 00:14] LABS: INR 1.4 (<1.2); Partial Thromboplastin Time 26.3 sec (22.0-30.0)
[2019-07-23 00:21] LABS: Anisocytosis Slight; Basophils % (A) 1 %; Eosinophils # (A) 0.3 k/uL (0-0.7); Eosinophils % (A) 6 %; HCT 29.6 % (34.0-46.0); HGB 9.4 gm/dL (11.4-16.0); Hypochromasia Moderate; Lymphocytes # (A) 1.2 k/uL (1.0-4.8); Lymphocytes % (A) 24 %; MCH 30.4 pg (25.0-35.0); MCHC 31.9 g/dL (31.0-37.0); MCV 95.2 fL (80.0-100.0); Mean Platelet Volume 8.4; Monocytes # (A) 0.3 k/uL (0-1.0); Monocytes % (A) 6 %; Neutrophils # (A) 2.9 k/uL (1.3-7.7); Neutrophils % (A) 61 %; Platelet Count 201 k/uL (150-450); RDW 16.7 % (11.5-15.5); WBC 4.8 k/uL (3.8-10.6)
[2019-07-23 00:31] LABS: Albumin 4.2 g/dL (3.5-5.0); Calcium 8.9 mg/dL (8.4-10.2); Total Bilirubin 1.5 mg/dL (0.2-1.3); Total Protein 7.8 g/dL (6.3-8.2)
[2019-07-23] MEDS ORDERED: MORPHINE SULFATE 4 MG/ML SYRINGE IVP STA (00:55)
[2019-07-23] MEDS ORDERED: ASPIRIN 81 MG PO STA (00:56)
--- NOTE | 2019-07-23 01:00 | XR ---
EXAMINATION TYPE: XR chest 2V DATE OF EXAM: 07/23/2019 COMPARISON: 07/09/2019 HISTORY: Chest pain TECHNIQUE: 2 views FINDINGS: Heart is moderately enlarged. There is mild pulmonary congestion. Costophrenic angles are c lear. There is no pulmonary consolidation. IMPRESSION: Moderately severe cardiomegaly. No change. Mild congestion without overt heart failure.
[2019-07-23] MEDS ORDERED: SODIUM BICARB 8.4% 50 ML SYR (1 MEQ/ML) IV STA (01:06)
[2019-07-23] MEDS ORDERED: INSULIN REGULAR 100 UNIT/ML VIAL IV ONE (01:08)
[2019-07-23] MEDS ORDERED: SODIUM POLYSTYRENE SULFONATE 15 GM/60 ML BOTTLE PO STA (01:08)
[2019-07-23] MEDS ORDERED: DEXTROSE 50% SYRINGE 50 ML IVP STA ×2 (01:08→01:09)
[2019-07-23] MEDS ORDERED: NALOXONE 0.4 MG/ML 1 ML VIAL IV PRN (01:10)
[2019-07-23] MEDS ORDERED: traZODone HCL 50 MG TAB PO PRN (01:14)
[2019-07-23] MEDS ORDERED: cloNIDine 0.1 MG/24HR PATCH TRANSDERM SCH (01:15)
[2019-07-23] MEDS ORDERED: HYDROcodone/APAP 5-325MG 1 EACH TAB PO PRN (05:46)
[2019-07-23] MEDS: CARVEDILOL 12.5 MG TAB PO SCH ×2 (08:43→17:27)
[2019-07-23] MEDS: hydrALAZINE HCL 25 MG TAB PO SCH ×2 (08:43→17:27)
[2019-07-23] MEDS ORDERED: PANTOPRAZOLE 40 MG TABLET PO SCH (09:00)
[2019-07-23 11:51] VITALS: RESP 20
--- NOTE | 2019-07-23 12:44 | P.NPCON ---
History of Present Illness - Reason for Consult Consult date: 07/23/19 end stage renal disease - Chief Complaint Tiredness - History of Present Illness This 29-year-old with ESRD on dialysis Wednesday, etiology is polycystic kidney disease. She's had kidney transplant which has failed. She Came in yesterday on a Wednesday, post dialysis in a row as her extra treatment, with weakness, shortness of breath and myalgias. and was found to have potassium of 6. She frequently has hyperkalemia. She claims she is not eating anything, that might explain the hyperkalemia. Her hemoglobin is 9.4, she denies any black stools heartburn or any other signs of GI bleed. She is known with noncompliance. Additionally on a recent echocardiogram dated 07/10/2019 she has ejection fraction of 2-25 %, aortic regurgitation severe tricuspid regurgitation with p ulmonary hypertension, history of asthma. 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 Past Anesthesia/Blood Transfusion Reactions: No Reported Reaction Additional Past Anesthesia/Blood Transfusion Reaction / Comment(s): Pt has received blood in past without reaction. Past Psychological History: Anxiety, Depression Additional Psychological History / Comment(s): Pt resides with family. She is independent. She drives. She is disabled. She states she has anxiety and depression but no suicidal thoughts/ idealations or plans. She had one suicide attempt with overdose in 2012. Smoking Status: Former smoker Past Alcohol Use History: None Reported Additional Past Alcohol Use History / Comment(s): Pt states she started smoking socially as a teen and quit smoking in 2016. Past Drug Use History: Marijuana Additional Drug Use History / Comment(s): Couple times a week. - Past Family History Father Family Medical History: No Reported History Additional Family Medical History / Comment(s): Father is healthy and is 62 yrs old. Mother Family Medical History: No Reported History Additional Family Medical History / Comment(s): Mother is healthy and is 60 yrs old. Medications and Allergies Home Medications Medication Instructions Recorded Confirmed Type Albuterol Sulfate [Proair Hfa] 2 puff INHALATION RT-Q6H PRN 01/22/16 07/23/19 History Calcium Acetate [PhosLo] 1,334 mg PO AC-TID 05/01/18 07/23/19 History Carvedilol [Coreg] 25 mg PO BID 05/28/18 07/23/19 History hydrALAZINE HCL [Apresoline] 100 mg PO TID 11/16/18 07/23/19 History Cinacalcet HCl [Sensipar] 60 mg PO TUTHSA 02/26/19 07/23/19 History Lidocaine-Prilocaine Cream [Emla 1 applic TOPICAL DAILY PRN 05/24/19 07/23/19 History Cream 2.5%/2.5%] traZODone HCL [Desyrel] 50 mg PO HS PRN 05/24/19 07/23/19 History Acetaminophen Tab [Tylenol] 650 mg PO Q6H PRN 06/10/19 07/23/19 History NIFEdipine [Procardia XL] 60 mg PO DAILY 06/10/19 07/23/19 History ALPRAZolam [Xanax] 0.25 mg PO HS PRN 07/03/19 07/23/19 History Pantoprazole [Protonix] 40 mg PO QAM 07/09/19 07/23/19 History Ondansetron Odt [Zofran ODT] 8 mg SUBLINGUAL Q8H PRN 07/10/19 07/23/19 History cloNIDine 0.1 MG/24HR PATCH 1 patch TRANSDERM [place] 07/23/19 07/23/19 History [Catapres-TTS] Allergies Allergy/AdvReac Type Severity Reaction Status Date / Time hydralazine AdvReac Rapid Verified 07/23/19 07:57 Heart Rate WHEN GIVEN THROUGH IV Physical Exam Vitals: Vital Signs Temp Pulse Pulse Resp BP BP Pulse Ox 07/23/19 11:39 98.4 F 92 20 138/100 92 L 07/23/19 08:29 97.7 F 106 H 18 150/93 92 L 07/23/19 04:30 98.0 F 102 H 16 153/102 90 L 07/23/19 04:13 92 18 126/100 98 07/23/19 03:30 88 18 151/105 98 07/23/19 02:44 93 18 147/110 98 07/23/19 01:46 90 17 169/108 97 07/22/19 23:17 97.2 F L 90 24 159/104 99 Intake and Output 07/22/19 07/23/19 07/23/19 22:59 06:59 14:59 Intake Total 600 Balance 600 Intake: Oral 600 Other: Weight 61.2 kg On examination is awake alert oriented comfortable HEENT exam no JVP neck supple no facial asymmetry Lungs are clear to auscultation good air entry bilaterally Heart sounds are unremarkable for any murmur rub gallop Abdomen somewhat distended, not sure there is ascites Extremity exam was trace edema Neurologically awake alert oriented Results - Lab Results Most recent lab results Calcium 8.9 mg/dL (8.4-10.2) 07/22/19 23:53 07/22/19 23:53 07/23/19 06:47 Assessment and Plan Assessment: Impression 1. ESRD secondary to polycystic kidney disease, on dialysis Wednesday. 2. Admitted with generalized weakness shortness of breath, after getting dialyzed 4 days last week, came in immediately postdialysis with shortness of breath and hyperkalemia with potassium of 6. Cause of this hyperkalemia is obviously some noncompliance. There is no evidence of any GI bleed. 3. Severe cardiomyopathy nonischemic ejection fraction is 20-25% with severe tricuspid regurgitation, pulmonary hypertension with right ventricular pressure 50 4. History of failed kidney transplant 5. Anemia with melena 9.4. 6. Mildly distended abdomen, computed tomography scan dated 04/19/2019 shows hepatomegaly and ascites, normal spleen Recommendation 1. Will dialyze her today 3 hours with a 2K and ultrafiltrate 3 L. Patient will be discharged home
--- NOTE | 2019-07-23 14:08 | P.HPIM ---
History of Present Illness Patient is end-stage renal disease admitted was kidney disease and hemodialysis dependent failed renal transplant in the past patient is Wednesday hemodialysis came in with shortness of breath patient occasionally have to get extra treatments to avoid pulmonary edema patient also has EF of around 30-35%. Patient came in with shortness of breath found to have mild pulmonary edema is undergoing hemodialysis today after the patient will be discharged patient always have chronically elevated potassium presently at 6 almost close to normal for her which is expected to improve with hemodialysis. Patient denied any f ever chills nausea vomiting. Denied any abdominal pain. Review of Systems REVIEW OF SYSTEMS: CONSTITUTIONAL: No fever, no malaise, no fatigue. HEENT: No recent visual problems or hearing problems. Denied any sore throat. CARDIOVASCULAR: No chest pain, orthopnea, PND, no palpitations, no syncope. PULMONARY no hemoptysis. GASTROINTESTINAL: No diarrhea, no nausea, no vomiting, no abdominal pain. NEUROLOGICAL: No headaches, no weakness, no numbness. HEMATOLOGICAL: Denies any bleeding or petechiae. GENITOURINARY: Denies any burning micturition, frequency, or urgency. MUSCULOSKELETAL/RHEUMATOLOGICAL: Denies any joint pain, swelling, or any muscle pain. ENDOCRINE: Denies any polyuria or polydipsia. The rest of the 14-point review of systems is negative. 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 Past Anesthesia/Blood Transfusion Reactions: No Reported Reaction Additional Past Anesthesia/Blood Transfusion Reaction / Comment(s): Pt has received blood in past without reaction. Past Psychological History: Anxiety, Depression Additional Psychological History / Comment(s): Pt resides with family. She is independent. She drives. She is disabled. She states she has anxiety and depression but no suicidal thoughts/ idealations or plans. She had one suicide attempt with overdose in 2012. Smoking Status: Former smoker Past Alcohol Use History: None Reported Additional Past Alcohol Use History / Comment(s): Pt states she started smoking socially as a teen and quit smoking in 2015. Past Drug Use History: Marijuana Additional Drug Use History / Comment(s): Couple times a week. - Past Family History Father Family Medical History: No Reported History Additional Family Medical History / Comment(s): Father is healthy and is 62 yrs old. Mother Family Medical History: No Reported History Additional Family Medical History / Comment(s): Mother is healthy and is 60 yrs old. Medications and Allergies Home Medications Medication Instructions Recorded Confirmed Type Albuterol Sulfate [Proair Hfa] 2 puff INHALATION RT-Q6H PRN 01/22/16 07/23/19 History Calcium Acetate [PhosLo] 1,334 mg PO AC-TID 05/01/18 07/23/19 History Carvedilol [Coreg] 25 mg PO BID 05/28/18 07/23/19 History hydrALAZINE HCL [Apresoline] 100 mg PO TID 11/16/18 07/23/19 History Cinacalcet HCl [Sensipar] 60 mg PO TUTHSA 02/26/19 07/23/19 History Lidocaine-Prilocaine Cream [Emla 1 applic TOPICAL DAILY PRN 05/24/19 07/23/19 History Cream 2.5%/2.5%] traZODone HCL [Desyrel] 50 mg PO HS PRN 05/24/19 07/23/19 History Acetaminophen Tab [Tylenol] 650 mg PO Q6H PRN 06/10/19 07/23/19 History NIFEdipine [Procardia XL] 60 mg PO DAILY 06/10/19 07/23/19 History ALPRAZolam [Xanax] 0.25 mg PO HS PRN 07/03/19 07/23/19 History Pantoprazole [Protonix] 40 mg PO QAM 07/09/19 07/23/19 History Ondansetron Odt [Zofran ODT] 8 mg SUBLINGUAL Q8H PRN 07/10/19 07/23/19 History cloNIDine 0.1 MG/24HR PATCH 1 patch TRANSDERM [place] 07/23/19 07/23/19 History [Catapres-TTS] Allergies Allergy/AdvReac Type Severity Reaction Status Date / Time hydralazine AdvReac Rapid Verified 07/23/19 07:57 Heart Rate WHEN GIVEN THROUGH IV Physical Exam Vitals: Vital Signs Temp Pulse Pulse Resp BP BP Pulse Ox 07/23/19 11:39 98.4 F 92 20 138/100 92 L 07/23/19 08:29 97.7 F 106 H 18 150/93 92 L 07/23/19 04:30 98.0 F 102 H 16 153/102 90 L 07/23/19 04:13 92 18 126/100 98 07/23/19 03:30 88 18 151/105 98 07/23/19 02:44 93 18 147/110 98 07/23/19 01:46 90 17 169/108 97 07/22/19 23:17 97.2 F L 90 24 159/104 99 Intake and Output 07/22/19 07/23/19 07/23/19 22:59 06:59 14:59 Intake Total 600 Balance 600 Intake: Oral 600 Other: Weight 61.2 kg PHYSICAL EXAMINATION: GENERAL: The patient is alert and oriented x3, not in any acute distress. Relatively thin built female HEENT: Pupils are round and equally reacting to light. EOMI. No scleral icterus. No conjunctival pallor. Normocephalic, atraumatic. No pharyngeal erythema. No thyromegaly. CARDIOVASCULAR: S1 and S2 present. No murmurs, rubs, or gallops. PULMONARY: Chest is clear to auscultation, no wheezing or crackles. ABDOMEN: Soft, nontender, nondistended, normoactive bowel sounds. No palpable organomegaly. MUSCULOSKELETAL: No joint swelling or deformity. EXTREMITIES: No cyanosis, clubbing, or pedal edema. NEUROLOGICAL: Gross neurological examination did not reveal any focal deficits. SKIN: No rashes. Results CBC & Chem 7: 07/22/19 23:53 07/23/19 06:47 Labs: Abnormal Lab Results - Last 24 Hours (Table) 07/22/19 07/22/19 07/22/19 Range/Units 23:53 23:53 23:53 RBC 3.10 L (3.80-5.40) m/uL Hgb 9.4 L (11.4-16.0) gm/dL Hct 29.6 L (34.0-46.0) % RDW 16.7 H (11.5-15.5) % PT 14.0 H (9.0-12.0) sec INR 1.4 H (<1.2) Sodium 135 L (137-145) mmol/L Potassium 6.0 H (3.5-5.1) mmol/L Chloride 93 L (98-107) mmol/L BUN 56 H (7-17) mg/dL Creatinine 7.31 H* (0.52-1.04) mg/dL Glucose 70 L (74-99) mg/dL Total Bilirubin 1.5 H (0.2-1.3) mg/dL Troponin I (0.000-0.034) ng/mL 07/22/19 07/23/19 07/23/19 Range/Units 23:53 06:16 11:15 RBC (3.80-5.40) m/uL Hgb (11.4-16.0) gm/dL Hct (34.0-46.0) % RDW (11.5-15.5) % PT (9.0-12.0) sec INR (<1.2) Sodium (137-145) mmol/L Potassium (3.5-5.1) mmol/L Chloride (98-107) mmol/L BUN (7-17) mg/dL Creatinine (0.52-1.04) mg/dL Glucose (74-99) mg/dL Total Bilirubin (0.2-1.3) mg/dL Troponin I 0.067 H* 0.066 H* 0.055 H* (0.000-0.034) ng/mL Thrombosis Risk Factor Assmnt - Choose All That Apply Any of the Below Risk Factors Present?: No Other congenital or acquired thrombophilia - If yes, enter type in comment: No Assessment and Plan Plan: Shortness is of breath secondary to pulmonary edema from heart failure as well as end-stage renal disease patient has systolic dysfunction with acute exacerbation patient will undergo additional session of dialysis after which patient will be discharged -Congestive heart failure chronic systolic dysfunction with mild acute exacerbation as mentioned above patient had a 20-25% -End-stage renal disease hemanalysis dependent, patient had a failed renal transplant patient had history of cholecystectomy disease -Hypertension patient resumed on her home medications #10 hyperkalemia secondary to renal failure expected to improve with hemodialysis -Nonischemic cardiomyopathy -Anemia of chronic kidney disease -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
--- NOTE | 2019-07-23 14:09 | P.DS ---
Providers Date of admission: 07/23/19 01:10 Attending physician: Roman Rivera Consults: 07/23/19 01:12 Consult Physician Urgent Consulting Provider: Robin Thompson Consult Reason/Comments: chronic renal failure, hyperkalemia Do you want consulting provider notified?: Yes Primary care physician: Nestor Frias [facility] Course: Please refer to my HPI for further details Patient Condition at Discharge: Stable Plan - Discharge Summary Discharge Rx Participant: No New Discharge Prescriptions: No Action Albuterol Sulfate [Proair Hfa] 2 puff INHALATION RT-Q6H PRN PRN Reason: Shortness Of Breath Calcium Acetate [PhosLo] 1,334 mg PO AC-TID Carvedilol [Coreg] 25 mg PO BID hydrALAZINE HCL [Apresoline] 100 mg PO TID Cinacalcet HCl [Sensipar] 60 mg PO TUTHSA traZODone HCL [Desyrel] 50 mg PO HS PRN PRN Reason: Insomnia Lidocaine-Prilocaine Cream [Emla Cream 2.5%/2.5%] 1 applic TOPICAL DAILY PRN PRN Reason: DIALYSIS NIFEdipine [Procardia XL] 60 mg PO DAILY Acetaminophen Tab [Tylenol] 650 mg PO Q6H PRN PRN Reason: Pain ALPRAZolam [Xanax] 0.25 mg PO HS PRN PRN Reason: Anxiety Pantoprazole [Protonix] 40 mg PO QAM Ondansetron Odt [Zofran ODT] 8 mg SUBLINGUAL Q8H PRN PRN Reason: Nausea cloNIDine 0.1 MG/24HR PATCH [Catapres-TTS] 1 patch TRANSDERM IVERSON Discharge Medication List Albuterol Sulfate [Proair Hfa] 2 puff INHALATION RT-Q6H PRN 01/22/16 [History] Calcium Acetate [PhosLo] 1,334 mg PO AC-TID 05/01/18 [History] Carvedilol [Coreg] 25 mg PO BID 05/28/18 [History] hydrALAZINE HCL [Apresoline] 100 mg PO TID 11/16/18 [History] Cinacalcet HCl [Sensipar] 60 mg PO TUTHSA 02/26/19 [History] Lidocaine-Prilocaine Cream [Emla Cream 2.5%/2.5%] 1 applic TOPICAL DAILY PRN 05/24/19 [History] traZODone HCL [Desyrel] 50 mg PO HS PRN 05/24/19 [History] Acetaminophen Tab [Tylenol] 650 mg PO Q6H PRN 06/10/19 [History] NIFEdipine [Procardia XL] 60 mg PO DAILY 06/10/19 [History] ALPRAZolam [Xanax] 0.25 mg PO HS PRN 07/03/19 [History] Pantoprazole [Protonix] 40 mg PO QAM 07/09/19 [History] Ondansetron Odt [Zofran ODT] 8 mg SUBLINGUAL Q8H PRN 07/10/19 [History] cloNIDine 0.1 MG/24HR PATCH [Catapres-TTS] 1 patch TRANSDERM IVERSON 07/23/19 [History] Follow up Appointment(s)/Referral(s): Mary Baez MD [Primary Care Provider] - 1-2 days
[2019-07-23 16:24] VITALS: PULSE 88; TEMP 97.9
[2019-07-23 17:27] VITALS: BP 129/85
== END 2019-07-23 18:10 | disposition home or self-care (01) | DRG 291 ==
LOC: EC 23:08 → 5NMEDONC 07-23 01:10
PROVIDERS: ADMIT Internal Medicine; ATTEND Internal Medicine
PROC: 5A1D70Z Performance of Urinary Filtration, Intermittent, Less than 6 Hours Per Day (ICD-10-PCS; principal; 2019-07-23)
DX: I13.2 Hypertensive heart and chronic kidney disease with heart failure and with stage 5 chronic kidney disease, or end stage renal disease (principal); I50.23 Acute on chronic systolic (congestive) heart failure; N18.6 End stage renal disease; Q61.3 Polycystic kidney, unspecified; T86.12 Kidney transplant failure; D63.1 Anemia in chronic kidney disease; E87.5 Hyperkalemia; F17.210 Nicotine dependence, cigarettes, uncomplicated; F32.9 Major depressive disorder, single episode, unspecified; F41.9 Anxiety disorder, unspecified; I08.3 Combined rheumatic disorders of mitral, aortic and tricuspid valves; I27.20 Pulmonary hypertension, unspecified; I42.8 Other cardiomyopathies; J45.909 Unspecified asthma, uncomplicated; Z91.5 Personal history of self-harm; Y83.0 Surgical operation with transplant of whole organ as the cause of abnormal reaction of the patient, or of later complication, without mention of misadventure at the time of the procedure; Z79.51 Long term (current) use of inhaled steroids; Z79.899 Other long term (current) drug therapy; Z90.49 Acquired absence of other specified parts of digestive tract; Z91.19 Patient's noncompliance with other medical treatment and regimen; Z99.2 Dependence on renal dialysis; E55.9 Vitamin D deficiency, unspecified
CPT/HCPCS: 36415; 71046; 80053; 84132; 84484; 85025; 85610; 85730; 90935; 93005

== ENCOUNTER 2019-08-04 16:34 | Inpatient (IN) | payer BC, MEDICARE, OTHER ==
--- NOTE | 2019-08-04 16:44 | ED ---
SOB HPI - General Chief Complaint: Shortness of Breath Stated Complaint: JEAN/asthma Time Seen by Provider: 08/04/19 16:44 Source: patient, RN notes reviewed, old records reviewed Mode of arrival: wheelchair Limitations: no limitations - History of Present Illness Initial Comments: This is a 29-year-old female here for evaluation possessive for evaluation of persistent shortness of breath patient feels like she for overload shortness of breath despite oxygen with chest pain chest pain difficulty with exertion. Reactive secondary to shortness of breath. Patient did have dialysis today states that does not help any of her symptoms and was sent to ER from dialysis. Blood pressure is running severely elevated MD Complaint: shortness of breath, chest pain, anxiety -: days(s) Severity: moderate Severity scale (1-10): 6 Quality: dull Consistency: constant Improves With: nothing Worsens With: exertion, movement Known History Of: COPD, congestive heart failure Context: recent URI, medication noncompliance Associated Symptoms: pain with inspiration, cough, palpitations Treatments Prior to Arrival: none - Related Data Home Medications Medication Instructions Recorded Confirmed Albuterol Sulfate [Proair Hfa] 2 puff INHALATION RT-Q6H PRN 01/22/16 07/23/19 Calcium Acetate [PhosLo] 1,334 mg PO AC-TID 05/01/18 07/23/19 Carvedilol [Coreg] 25 mg PO BID 05/28/18 07/23/19 hydrALAZINE HCL [Apresoline] 100 mg PO TID 11/16/18 07/23/19 Cinacalcet HCl [Sensipar] 60 mg PO TUTHSA 02/26/19 07/23/19 Lidocaine-Prilocaine Cream [Emla 1 applic TOPICAL DAILY PRN 05/24/19 07/23/19 Cream 2.5%/2.5%] traZODone HCL [Desyrel] 50 mg PO HS PRN 05/24/19 07/23/19 Acetaminophen Tab [Tylenol] 650 mg PO Q6H PRN 06/10/19 07/23/19 NIFEdipine [Procardia XL] 60 mg PO DAILY 06/10/19 07/23/19 ALPRAZolam [Xanax] 0.25 mg PO HS PRN 07/03/19 07/23/19 Pantoprazole [Protonix] 40 mg PO QAM 07/09/19 07/23/19 Ondansetron Odt [Zofran ODT] 8 mg SUBLINGUAL Q8H PRN 07/10/19 07/23/19 cloNIDine 0.1 MG/24HR PATCH 1 patch TRANSDERM IVERSON 07/23/19 07/23/19 [Catapres-TTS] Allergies Allergy/AdvReac Type Severity Reaction Status Date / Time hydralazine AdvReac Rapid Verified 07/23/19 07:57 Heart Rate WHEN GIVEN THROUGH IV Review of Systems ROS Statement: Those systems with pertinent positive or pertinent negative responses have been documented in the HPI. ROS Other: All systems not noted in ROS Statement are negative. 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 Past Anesthesia/Blood Transfusion Reactions: No Reported Reaction Additional Past Anesthesia/Blood Transfusion Reaction / Comment(s): Pt has received blood in past without reaction. Past Psychological History: Anxiety, Depression Smoking Status: Former smoker Past Alcohol Use History: None Reported Past Drug Use History: Marijuana - Past Family History Father Family Medical History: No Reported History Additional Family Medical History / Comment(s): Father is healthy and is 62 yrs old. Mother Family Medical History: No Reported History Additional Family Medical History / Comment(s): Mother is healthy and is 60 yrs old. General Exam Limitations: no limitations General appearance: alert, in no apparent distress, anxious Head exam: Present: atraumatic, normocephalic, normal inspection Eye exam: Present: normal appearance, PERRL, EOMI. Absent: scleral icterus, conjunctival injection, periorbital swelling ENT exam: Present: normal exam, mucous membranes moist Neck exam: Present: normal inspection. Absent: tenderness, meningismus, lymphadenopathy Respiratory exam: Present: wheezes, accessory muscle use, decreased breath sounds, prolonged expiratory. Absent: respiratory distress, rales, rhonchi, stridor Cardiovascular Exam: Present: normal rhythm, tachycardia, normal heart sounds. Absent: systolic murmur, diastolic murmur, rubs, gallop, clicks GI/Abdominal exam: Present: soft, normal bowel sounds. Absent: distended, tenderness, guarding, rebound, rigid Extremities exam: Present: normal inspection, full ROM, normal capillary refill. Absent: tenderness, pedal edema, joint swelling, calf tenderness Back exam: Present: normal inspection Neurological exam: Present: alert, oriented X3, CN II-XII intact Psychiatric exam: Present: normal affect, normal mood Skin exam: Present: warm, dry, intact, normal color. Absent: rash Course Vital Signs 08/04/19 08/04/19 08/04/19 16:36 17:02 17:08 Temperature 98.6 F Pulse Rate 117 H 117 H 117 H Respiratory 18 18 18 Rate Blood Pressure 169/124 O2 Sat by Pulse 100 Oximetry - Reevaluation(s) Reevaluation #1: 08/04/19 18:54 Medical records reviewed Reevaluation #2: 08/04/19 18:54 Symptoms improved with rest oxygen and breathing treatment - Consultations Consultation #1: spoke w [facility] were agreeable for admission Medical Decision Making - Medical Decision Making 29 female here for evaluation of SOB, weak, uncontrolled HTN, will admit for pain control and caradiac and nephrology evaluation - Lab Data Result diagrams: 08/04/19 17:12 08/04/19 17:12 Lab Results 08/04/19 08/04/19 08/04/19 Range/Units 17:12 17:12 17:12 WBC 5.0 (3.8-10.6) k/uL RBC 3.20 L (3.80-5.40) m/uL Hgb 9.7 L (11.4-16.0) gm/dL Hct 30.6 L (34.0-46.0) % MCV 95.7 (80.0-100.0) fL MCH 30.2 (25.0-35.0) pg MCHC 31.6 (31.0-37.0) g/dL RDW 18.7 H (11.5-15.5) % Plt Count 247 (150-450) k/uL Neutrophils % 66 % Lymphocytes % 18 % Monocytes % 4 % Eosinophils % 8 % Basophils % 2 % Neutrophils # 3.3 (1.3-7.7) k/uL Lymphocytes # 0.9 L (1.0-4.8) k/uL Monocytes # 0.2 (0-1.0) k/uL Eosinophils # 0.4 (0-0.7) k/uL Basophils # 0.1 (0-0.2) k/uL Hypochromasia Marked Anisocytosis Slight Macrocytosis Slight Sodium 136 L (137-145) mmol/L Potassium 4.2 (3.5-5.1) mmol/L Chloride 92 L (98-107) mmol/L Carbon Dioxide 34 H (22-30) mmol/L Anion Gap 10 mmol/L BUN 25 H (7-17) mg/dL Creatinine 6.90 H (0.52-1.04) mg/dL Est GFR (CKD-EPI)AfAm 9 (>60 ml/min/1.73 sqM) Est GFR (CKD-EPI)NonAf 7 (>60 ml/min/1.73 sqM) Glucose 126 H (74-99) mg/dL Calcium 9.4 (8.4-10.2) mg/dL Magnesium 1.8 (1.6-2.3) mg/dL Total Bilirubin 1.7 H (0.2-1.3) mg/dL AST 36 (14-36) U/L ALT 16 (4-34) U/L Alkaline Phosphatase 86 (38-126) U/L Troponin I (0.000-0.034) ng/mL NT-Pro-B Natriuret Pep [id number] pg/mL Total Protein 7.4 (6.3-8.2) g/dL Albumin 3.7 (3.5-5.0) g/dL 08/04/19 Range/Units 17:12 WBC (3.8-10.6) k/uL RBC (3.80-5.40) m/uL Hgb (11.4-16.0) gm/dL Hct (34.0-46.0) % MCV (80.0-100.0) fL MCH (25.0-35.0) pg MCHC (31.0-37.0) g/dL RDW (11.5-15.5) % Plt Count (150-450) k/uL Neutrophils % % Lymphocytes % % Monocytes % % Eosinophils % % Basophils % % Neutrophils # (1.3-7.7) k/uL Lymphocytes # (1.0-4.8) k/uL Monocytes # (0-1.0) k/uL Eosinophils # (0-0.7) k/uL Basophils # (0-0.2) k/uL Hypochromasia Anisocytosis Macrocytosis Sodium (137-145) mmol/L Potassium (3.5-5.1) mmol/L Chloride (98-107) mmol/L Carbon Dioxide (22-30) mmol/L Anion Gap mmol/L BUN (7-17) mg/dL Creatinine (0.52-1.04) mg/dL Est GFR (CKD-EPI)AfAm (>60 ml/min/1.73 sqM) Est GFR (CKD-EPI)NonAf (>60 ml/min/1.73 sqM) Glucose (74-99) mg/dL Calcium (8.4-10.2) mg/dL Magnesium (1.6-2.3) mg/dL Total Bilirubin (0.2-1.3) mg/dL AST (14-36) U/L ALT (4-34) U/L Alkaline Phosphatase (38-126) U/L Troponin I 0.084 H* (0.000-0.034) ng/mL NT-Pro-B Natriuret Pep pg/mL Total Protein (6.3-8.2) g/dL Albumin (3.5-5.0) g/dL - Radiology Data Radiology results: report reviewed (Chest x-ray shows significant cardiomegaly), image reviewed Disposition Clinical Impression: History of kidney transplant, Accelerated hypertension, Elevated troponin I level, Hypertensive urgency, Dyspnea, Acute on chronic renal failure Disposition: ADMITTED IP TO THIS [facility] Condition: Fair Is patient prescribed a controlled substance at d/c from ED?: No Referrals: Mary Baez MD [Primary Care Provider] - 1-2 days
[2019-08-04] MEDS ORDERED: HYDROmorphone 1 MG/ML 1 ML SYRINGE IVP STA (16:45)
[2019-08-04] MEDS ORDERED: LORazepam 2 MG/ML INJ IV STA (16:45)
[2019-08-04] MEDS ORDERED: IPRATROPIUM-ALBUTEROL 3 ML NEB INHALATION STA (16:45)
[2019-08-04 17:25] LABS: Anisocytosis Slight; Basophils # (A) 0.1 k/uL (0-0.2); Basophils % (A) 2 %; Eosinophils # (A) 0.4 k/uL (0-0.7); Eosinophils % (A) 8 %; HCT 30.6 % (34.0-46.0); HGB 9.7 gm/dL (11.4-16.0); Hypochromasia Marked; Lymphocytes # (A) 0.9 k/uL (1.0-4.8); Lymphocytes % (A) 18 %; MCH 30.2 pg (25.0-35.0); MCHC 31.6 g/dL (31.0-37.0); MCV 95.7 fL (80.0-100.0); Macrocytosis Slight; Mean Platelet Volume 9.4; Monocytes # (A) 0.2 k/uL (0-1.0); Monocytes % (A) 4 %; Neutrophils # (A) 3.3 k/uL (1.3-7.7); Neutrophils % (A) 66 %; Platelet Count 247 k/uL (150-450); RDW 18.7 % (11.5-15.5)
[2019-08-04 17:39] LABS: Albumin 3.7 g/dL (3.5-5.0); Calcium 9.4 mg/dL (8.4-10.2); Magnesium 1.8 mg/dL (1.6-2.3); Potassium 4.2 mmol/L (3.5-5.1); Total Bilirubin 1.7 mg/dL (0.2-1.3); Total Protein 7.4 g/dL (6.3-8.2)
--- NOTE | 2019-08-04 18:12 | XR ---
EXAMINATION TYPE: XR chest 2V DATE OF EXAM: 08/04/2019 COMPARISON: 07/23/2019 INDICATION: Difficulty breathing short of breath TECHNIQUE: Frontal and lateral views of the chest are obtained. FINDINGS: The heart size is markedly enlarged. The pulmonary vasculature is normal. The lungs are clear. IMPRESSION: 1. Markedly enlarged heart. Cardiomegaly, consider pericardial effusion.
[2019-08-04] MEDS ORDERED: traZODone HCL 50 MG TAB PO PRN (21:03)
[2019-08-04] MEDS ORDERED: ONDANSETRON ODT 4 MG TAB PO PRN (21:03)
[2019-08-04] MEDS ORDERED: ALPRAZolam 0.25 MG TAB PO PRN ×2 (21:03→21:05)
[2019-08-04] MEDS ORDERED: CALCIUM ACETATE 667 MG TAB PO PRN (21:03)
[2019-08-04] MEDS ORDERED: ACETAMINOPHEN TAB 325 MG TAB PO PRN (21:03)
[2019-08-04] MEDS ORDERED: LIDOCAINE-PRILOCAINE 2.5-2.5% CREAM 5 GM TUBE TOPICAL PRN (21:03)
[2019-08-04] MEDS ORDERED: IPRATROPIUM-ALBUTEROL 3 ML NEB INHALATION PRN (21:04)
[2019-08-04] MEDS: HYDROmorphone 0.5 MG/0.5 ML SYRINGE IVP PRN (21:26)
[2019-08-04] MEDS: hydrALAZINE HCL 50 MG TAB PO SCH (21:27)
[2019-08-04] MEDS: methylPREDNISolone SOD SUCCI 125 MG/2 ML VIAL IV SCH (23:22)
[2019-08-04] MEDS ORDERED: CARVEDILOL 12.5 MG TAB PO STA (23:28)
--- NOTE | 2019-08-05 | HP ---
HISTORY AND PHYSICAL CHIEF COMPLAINT: Shortness of breath and cough. HISTORY OF PRESENT ILLNESS: This 29-year-old woman with a past medical history of multiple medical problems including history of asthma, CHF, hypertension, history of chronic kidney disease on hemodialysis, ejection fraction 30-40%, history of cardiac catheterization, anxiety, depression, being followed by Dr. Baez in the outpatient setting is complaining of shortness of breath. The patient came to the hemodialysis with shortness of breath, but subsequently the patient was given oxygen and even after the hemodialysis, shortness of breath persisted. Patient came to [facility] and admitted for evaluation and treatment. The patient apparently recently returned from her family in [place], [place] visiting her sister where multiple ladies are sick with flu according to her. There is no history of fever or rigors. No history of headache, loss of consciousness or seizures. A chest x-ray which was done after admission and evaluated by me showed significant cardiomegaly with possible pericardial effusion also. Patient also had polycystic kidney disease with failed kidney transplant. PAST MEDICAL HISTORY: History of asthma, CHF, hypertension, history of renal disease, history of CAD, history of anxiety, depression. MEDICATIONS PRIOR TO ADMISSION: 1. Desyrel 50 mg q.h.s. p.r.n. 2. Apresoline 100 mg p.o. t.i.d. 3. Protonix 40 mg. 4. Zofran 8 mg q.8h p.r.n. 5. Procardia XL 60 mg daily. 6. Lidocaine 1 application daily p.r.n. 7. Sensipar 60 mg Wednesday, , Wednesday. 8. Coreg 25 mg p.o. b.i.d. 9. PhosLo b.i.d. p.r.n. 10.ProAir 2 puffs q.6h p.r.n. 11.Tylenol 650 q.6h p.r.n. 12.Xanax 0.5 q.6h p.r.n. ALLERGIES: HYDRALAZINE. FAMILY HISTORY: No history of heart disease or strokes in the family. SOCIAL HISTORY: Previous history of smoking. No history of current smoking or alcohol intake. REVIEW OF SYSTEMS: ENT: No diminished vision, no diminished hearing. CARDIOVASCULAR SYSTEM: As mentioned earlier. RESPIRATORY: As mentioned earlier. GI: No nausea, no diarrhea. : No dysuria. NERVOUS SYSTEM: No numbness or weakness. ALLERGY/IMMUNOLOGY: No asthma, no hay fever. MUSCULOSKELETAL: As mentioned earlier. HEMATOLOGY: No history of anemia. ENDOCRINE: No history of diabetes or hypothyroidism. CONSTITUTIONAL: As mentioned earlier. DERMATOLOGY: Negative. RHEUMATOLOGY: Negative. PSYCHIATRY: As mentioned earlier. PHYSICAL EXAMINATION: Alert and oriented x3. Pulse 116, blood pressure 177/120, respiration 21, temperature 98.6, pulse ox 97% on 2 L. HEENT: Conjunctivae normal. Oral mucosa moist. NECK: No jugular venous distention. No lymph node enlargement. CARDIOVASCULAR: S1, S2. Tachycardic. S3 present. Ejection systolic murmur and possible pleural pericardial rub also present. RESPIRATORY: Diminished breath sounds at the bases. Bilateral scattered rhonchi and crackles and expiratory wheezing. ABDOMEN: Soft, obese, nontender. LEGS: Bilateral leg edema. NERVOUS SYSTEM: Higher functions mentioned earlier. Moves all four limbs. No focal deficits. LYMPHATICS: No lymph node in neck or axilla. SKIN: No rash. JOINTS: No active deforming arthropathy. LABS: WBC 5.1, hemoglobin 9.7, sodium 136 and creatinine 6.90. Total bilirubin is 1.7, glucose 126. Troponin 0.084. NT proBNP is 164,000. ASSESSMENT: 1. Congestive heart failure acute exacerbation with acute on chronic systolic dysfunction, ejection fraction 35-40% with possibly nonischemic cardiomyopathy. 2. Chronic renal failure, end-stage renal disease with stage IV on hemodialysis Wednesday, Wednesday, Wednesday. 3. Possible chronic obstructive pulmonary disease, asthma acute exacerbation with acute purulent tracheobronchitis. 4. Possible pericardial effusion with pleural pericarditis. 5. History of failed kidney transplant. 6. History of polycystic kidney disease. 7. Hypertension. 8. History of vitamin D deficiency. 9. Mild to moderate mitral regurgitation. 10.Degenerative joint disease, chronic back pain. 11.History of cardiac catheterization. 12.History of anxiety, depression. 13.Remote history of nicotine dependence. 14.Hyponatremia. 15.Troponin 0.084, indeterminate. 16.NT proBNP 164,000. 17.Anemia, normocytic anemia of chronic disease. 18.Chronic kidney disease. 19.FULL CODE. RECOMMENDATIONS AND DISCUSSION: This 29-year-old with multiple complex medical issues, at this time I recommend to continue current medications, continue symptomatic treatment. I recommend to continue the bronchodilators. Otherwise, closely follow with Cardiology and Nephrology. Two-D echo with Doppler. Guarded prognosis. Empiric antibiotics also will be given. Check for flu. Guarded prognosis because of multiple complex medical issues. See orders for details. MMODL / IJN: [id number] / MTDD
[2019-08-05] MEDS: HYDROcodone/APAP 5-325MG 1 EACH TAB PO PRN ×3 (01:21→20:07)
[2019-08-05] MEDS: HYDROmorphone 0.5 MG/0.5 ML SYRINGE IVP PRN (03:53)
[2019-08-05] MEDS: methylPREDNISolone SOD SUCCI 125 MG/2 ML VIAL IV SCH ×2 (05:38→12:30)
[2019-08-05 05:40] LABS: Anisocytosis Slight; Basophils % (A) 1 %; Eosinophils % (A) 1 %; HCT 32.5 % (34.0-46.0); HGB 9.9 gm/dL (11.4-16.0); Hypochromasia Marked; Lymphocytes # (A) 0.4 k/uL (1.0-4.8); Lymphocytes % (A) 11 %; MCH 29.3 pg (25.0-35.0); MCHC 30.4 g/dL (31.0-37.0); MCV 96.4 fL (80.0-100.0); Macrocytosis Slight; Mean Platelet Volume 9.2; Monocytes # (A) 0.1 k/uL (0-1.0); Monocytes % (A) 2 %; Neutrophils # (A) 3.1 k/uL (1.3-7.7); Neutrophils % (A) 85 %; Platelet Count 207 k/uL (150-450); RBC 3.37 m/uL (3.80-5.40); WBC 3.6 k/uL (3.8-10.6)
[2019-08-05 06:01] LABS: C Reactive Protein 8.6 mg/L (<10.0); Calcium 9.2 mg/dL (8.4-10.2); Potassium 5.3 mmol/L (3.5-5.1)
[2019-08-05 06:30] LABS: Erythrocyte Sedimentation Rate 47 mm/hr (0-20)
[2019-08-05 07:07] LABS: Glucose,Whole Blood 171 mg/dL (75-99)
[2019-08-05] MEDS ORDERED: CINACALCET 30 MG TAB PO SCH (09:00)
[2019-08-05] MEDS: IPRATROPIUM-ALBUTEROL 3 ML NEB INHALATION SCH ×4 (10:01→19:53)
[2019-08-05] MEDS: CARVEDILOL 12.5 MG TAB PO SCH ×2 (10:15→20:07)
[2019-08-05] MEDS: hydrALAZINE HCL 50 MG TAB PO SCH ×3 (10:16→22:24)
[2019-08-05] MEDS: PANTOPRAZOLE 40 MG TABLET PO SCH (10:16)
[2019-08-05] MEDS: INSULIN ASPART (NovoLOG) 100 UNIT/ML VIAL SQ SCH ×4 (10:19→20:29)
[2019-08-05 12:04] LABS: Glucose,Whole Blood 107 mg/dL (75-99)
[2019-08-05] MEDS: HEPARIN SODIUM,PORCINE 5,000 UNIT/ML 1 ML VIAL SQ SCH ×2 (12:31→20:10)
[2019-08-05 12:56] VITALS: BMI 22.6
--- NOTE | 2019-08-05 14:00 | ECHOF ---
Referral Reason:Heart Failure MEASUREMENTS -------- HEIGHT: 157.5 cm WEIGHT: 55.8 kg BP: RVIDd: 3.4 cm (< 3.3) IVSd: 1.5 cm (0.6 - 1.1) LVIDd: 4.9 cm (3.9 - 5.3) LVPWd: 1.8 cm (0.6 - 1.1) IVSs: 2.1 cm LVIDs: 3.9 cm LVPWs: 2.0 cm LAESV Index (A-L): 48.89 ml/m Ao Diam: 2.7 cm (2.0 - 3.7) AV Cusp: 2.0 cm (1.5 - 2.6) LA Diam: 4.3 cm (2.7 - 3.8) MV EXCURSION: 13.536 mm (> 18.000) MV EF SLOPE: 56 mm/s (70 - 150) EPSS: 0.9 cm MV E Minesh: 1.60 m/s MV DecT: 215 ms MV A Minesh: 0.40 m/s MV E/A Ratio: 3.99 AR PHT: 462 ms RAP: 5.00 mmHg RVSP: 70.36 mmHg TAPSE: 17.35 mm FINDINGS -------- Sinus rhythm with extra systolic beats. This was a technically good study. The left ventricular size is normal. There is moderate concentric left ventricular hypertrophy. O verall left ventricular systolic function is mild-moderately impaired with, an EF between 40 - 45 %. Increased LAP Grade 3 Diastolic Dysfunction. The right ventricle is mildly enlarged. LA is severely dilated >40 ml/m2 Interatrial and interventricular septum intact. Aortic valve is trileaflet and is mildly thickened. There is moderate aortic regurgitation. The mitral valve is normal. Mild mitral regurgitation is present. The tricuspid valve appears structurally normal. Severe tricuspid regurgitation present. There is severe pulmonary hypertension. The right ventricular systolic pressure, as measured by Doppler, is 70.36mmHg. Moderate pulmonic regurgitation. The aortic root size is normal. Normal inferior vena cava with normal inspiratory collapse consistent with estimated right atrial pre ssure of 5 mmHg. There is a small, generalized pericardial effusion present. CONCLUSIONS -------- 1. Sinus rhythm with extra systolic beats. 2. This was a technically good study. 3. The left ventricular size is normal. 4. There is moderate concentric left ventricular hypertrophy. 5. Overall left ventricular systolic function is mild-moderately impaired with, an EF between 40 - 45 %. 6. Increased LAP Grade 3 Diastolic Dysfunction. 7. The right ventricle is mildly enlarged. 8. LA is severely dilated >40 ml/m2 9. Interatrial and interventricular septum intact. 10. Aortic valve is trileaflet and is mildly thickened. 11. There is moderate aortic regurgitation. 12. The mitral valve is normal. 13. Mild mitral regurgitation is present. 14. The tricuspid valve appears structurally normal. 15. Severe tricuspid regurgitation present. 16. There is severe pulmonary hypertension. 17. The right ventricular systolic pressure, as measured by Doppler, is 70.36mmHg. 18. Moderate pulmonic regurgitation. 19. The aortic root size is normal. 20. Normal inferior vena cava with normal inspiratory collapse consistent with estimated right atrial pressure of 5 mmHg. 21. There is a small, generalized pericardial effusion present. PAYROLL PROFESSIONAL: Eden Noble RDCS
--- NOTE | 2019-08-05 16:15 | CONS ---
CONSULTATION REASON FOR CONSULT: End-stage renal disease. HISTORY OF PRESENT ILLNESS: Patient is a 29-year-old female with end-stage renal disease, on hemodialysis on a Wednesday, Wednesday, Wednesday schedule. Patient states she has had issues with fluid overload. She was 10 pounds above her dry weight as outpatient over the holidays. She did get a treatment yesterday and had only about 2 L of fluid removed as outpatient. The patient came into the hospital with complaints of shortness of breath, not feeling well. Her blood pressure is elevated. Potassium is at 5.3 today. Creatinine is at 8.47. PAST MEDICAL HISTORY: End-stage renal disease, anemia of chronic disease, previous history of failed transplant, CKD mineral bone disorder, history of heart failure, history of polycystic kidney disease, cardiomyopathy, EF 35-40%; chronic low back pain, bilateral ovarian cyst. PAST SURGICAL HISTORY: History of kidney transplant, hernia repair, transvaginal mesh, wisdom tooth extraction, cardiac catheterization, left upper arm AV graft. MEDICATIONS: Medications at home prior to admission: Protonix, Zofran, clonidine, Procardia, Tylenol, Sensipar, hydralazine, PhosLo, Coreg, ProAir. PHYSICAL EXAMINATION: On examination, patient is comfortable, awake, not in any acute distress. Blood pressure is 158/102, heart rate 94 per minute, she is afebrile. Examination of the heart S1, S2. Examination of the lungs, bilateral breath sounds are heard. Abdomen is soft, nontender. Examination of lower extremities shows edema trace bilaterally. [employer]ELOPER exam grossly intact. LABS: Show sodium 135, potassium 5.3, chloride 90, CO2 is 32, BUN is 30, creatinine 8.4. ASSESSMENT: 1. End-stage renal disease, on hemodialysis on a Wednesday, Wednesday, Wednesday schedule via left arm AV graft. 2. Mild hyperkalemia, expect improvement with hemodialysis today. 3. Volume overload. We will dialyze the patient today. 4. Hypertension, partly volume sensitive. 5. Chronic kidney disease mineral bone disorder. Continue with PhosLo and Sensipar. PLAN: Hemodialysis today following which patient could be discharged and she is advised to follow up as outpatient with her dialysis on Wednesday. MMODL / IJN: [id number] /
[2019-08-05 17:08] LABS: Glucose,Whole Blood 120 mg/dL (75-99)
[2019-08-05] MEDS ORDERED: diphenhydrAMINE ELIXIR 25 MG/10 ML CUP PO PRN (17:51)
[2019-08-05] MEDS ORDERED: diphenhydrAMINE 50 MG/ML 1 ML VIAL IVP STA (18:02)
--- NOTE | 2019-08-05 19:42 | CONS ---
CONSULTATION CHIEF COMPLAINT: Shortness of breath. This is a 29-year-old lady with history of asthma, hypertension, chronic renal failure on hemodialysis, chronic systolic heart failure, severe pulmonary hypertension, who presented to hospital with shortness of breath following dialysis. The patient has had multiple prior admissions. At the time of my evaluation she is awaiting dialysis. Her predominant symptom is in the form of nausea and she had poorly controlled hypertension. She is currently on Apresoline 100 mg t.i.d., which I am going to increase it to 4 times a day and she is on Procardia XL 60 mg daily, which I am going to increase to 90 mg daily. PAST MEDICAL HISTORY: Significant for end-stage renal disease on hemodialysis, hypertension, congestive heart failure, anxiety, depression, renal failure. MEDICATIONS: Include Desyrel, Apresoline 100 t.i.d., Protonix, Zofran, Procardia XL, lidocaine, Sensipar, Coreg, PhosLo, ProAir, Tylenol and Xanax. ALLERGIES: HYDRALAZINE. FAMILY HISTORY: Negative for premature coronary artery disease. SOCIAL HISTORY: Negative for smoking, EtOH abuse or drug abuse. REVIEW OF SYSTEMS: HEENT: Unremarkable. CARDIAC: As described above. RESPIRATORY: As described above. GI: Significant for nausea. GENITOURINARY: As described above. PSYCHOSOCIAL: Negative. ENDOCRINE: Negative. DERM: Negative. MUSCULOSKELETAL: Significant for muscle aches. HEMATOLOGICAL: Negative. CONSTITUTIONAL: Negative. PSYCH: As described above. ONCOLOGICAL: Negative. Rest of the system review is not relevant. PHYSICAL EXAM: She appears comfortable at rest. Heart rate is 90 beats per minute, blood pressure is 158/100, respiratory rate is 18. Chest exam reveals good air entry bilaterally. Heart exam reveals first and second heart sounds, S4 is heard. There is a systolic murmur at the left lower sternal border. Abdomen is soft. Exam of the extremities did not reveal any edema. EKG shows sinus rhythm, left axis deviation, changes of left ventricular hypertrophy. An echocardiogram showed [id number] LV dysfunction with an ejection fraction of 40-45% and severe pulmonary hypertension. Troponins are mildly elevated probably related to the renal failure. BUN and creatinine are elevated. Hemoglobin is 9.9. Platelet count is 207. ASSESSMENT: 1. Acute on chronic systolic heart failure. 2. Chronic renal failure on hemodialysis. 3. Mild troponin elevation secondary to renal failure. 4. Severe pulmonary hypertension. PLAN: Continue dialysis. Adjust the antihypertensives. Guarded prognosis. MMODL / IJN: [id number] /
[2019-08-05 20:20] LABS: Glucose,Whole Blood 120 mg/dL (75-99)
--- NOTE | 2019-08-05 20:23 | PN ---
PROGRESS NOTE DATE OF SERVICE: 08/05/2019 This 29-year-old woman who was admitted with CHF acute exacerbation also had acute on chronic systolic dysfunction, ejection fraction 38-40 percent. The patient also had renal failure. Patient on hemodialysis. A 2D echo with Doppler was done today which showed systolic function about 40 to 45%, LA was dilated. Severe tricuspid regurgitation was also demonstrated. Small generalized pericardial effusion was also noted. The patient being closely monitored. Patient apparently had bronchitis also. PAST MEDICAL HISTORY: Reviewed. REVIEW OF SYSTEMS: Cardiovascular system: As mentioned earlier. RESPIRATORY: As mentioned earlier. GI as mentioned earlier. No nausea or vomiting. no dysuria. EDUCATIONAL CONSULTANT: No numbness or weakness. CURRENT MEDICATIONS: Reviewed and include: 1. Tylenol p.r.n. 2. Curlew 5 mg q.6h p.r.n. 3. DuoNeb q.i.d. and p.r.n. 4. Xanax 0.25 at bedtime. 5. Xanax 0.25 t.i.d. 6. PhosLo 1334 p.o. b.i.d. 7. Coreg 25 mg p.o. b.i.d. 8. Rocephin 1 g daily. 9. Heparin 5000 subcu b.i.d. 10.Apresoline 100 mg p.o. q.i.d. 11.Dilaudid p.r.n. 13.Solu-Medrol 60 IV q.6h. 14.Procardia XL 90 mg. 15.Protonix 40 mg. 16.Desyrel. PHYSICAL EXAM: Patient is alert and oriented times three. Pulse 76. Blood pressure 146/80, respiration 15, temperature 97.8, pulse ox 97% on room air. HEENT: Oral mucosa moist. NECK is jugular venous distention at the root of the neck. Cardiovascular system: S1, S2, ejection systolic murmur, possible pleural rub also present. RESPIRATION: Few scattered rhonchi and crackles. ABDOMEN: Soft, nontender. LEGS are no edema. No swelling. Nervous system: No focal deficits. LABS: At this time, WBC 3.7, hemoglobin 9.9, platelets are 207. Sodium 130, potassium 5.3, creatinine is 8.47. Accu-Cheks are noted. Troponins are noted. Influenza negative. Chest x-ray noted personally. ASSESSMENT: 1. Congestive heart failure, acute exacerbation with acute on chronic systolic dysfunction, ejection fraction 40-45 percent with possibly nonischemic cardiomyopathy. 2. Chronic renal failure end-stage renal disease, stage IV on hemodialysis Wednesday, Wednesday, Wednesday. 3. Possible chronic obstructive pulmonary disease, acute asthma acute exacerbation with acute purulent tracheobronchitis. 4. Possible pleural pericardial rub and pleurisy. 5. History of failed kidney transplant previously. 6. History of polycystic kidney disease. 7. Hypertension. 8. History of vitamin D deficiency. 9. History of mild to moderate mitral regurgitation. 10.Degenerative joint disease, chronic back pain. 11.History of cardiac catheterization. 12.History of anxiety, depression. 13.Remote history of nicotine dependence. 14.Hypomagnesemia. 15.Troponin 0.084 indeterminate. 16.NT proBNP is 164,000. 17.Anemia, normocytic anemia of chronic disease. 18.Chronic kidney disease. 19.FULL CODE. RECOMMENDATIONS AND DISCUSSION: In this 29-year-old woman who presented with multiple complex medical issues, we will monitor the patient. Follow closely. Continue the current medications, symptomatic treatment. Otherwise, at this time, I recommend continue with hemodialysis. Continue with bronchodilators, empiric antibiotics. I would recommend to cut down the dose of steroids. Increase ambulation. Resume the home medications. Guarded prognosis because of multiple complex medical issues. Further recommendations to follow. Prognosis guarded. Input from Cardiology and as well as Nephrology appreciated. ELISABETH / BAL: [id number] / JOSH
[2019-08-06] MEDS: methylPREDNISolone SOD SUCCI 40 MG/ML 1 ML VIAL IV SCH ×4 (00:12→23:19)
[2019-08-06 07:19] LABS: Glucose,Whole Blood 123 mg/dL (75-99)
[2019-08-06] MEDS: IPRATROPIUM-ALBUTEROL 3 ML NEB INHALATION SCH ×4 (08:11→19:40)
[2019-08-06 08:42] LABS: Anisocytosis Slight; Basophils % (A) 0 %; Eosinophils % (A) 0 %; HCT 32.6 % (34.0-46.0); Hypochromasia Marked; Lymphocytes # (A) 0.9 k/uL (1.0-4.8); Lymphocytes % (A) 16 %; MCH 29.8 pg (25.0-35.0); MCHC 30.6 g/dL (31.0-37.0); MCV 97.2 fL (80.0-100.0); Macrocytosis Slight; Mean Platelet Volume 8.5; Monocytes # (A) 0.4 k/uL (0-1.0); Monocytes % (A) 7 %; Neutrophils # (A) 3.9 k/uL (1.3-7.7); Neutrophils % (A) 74 %; Platelet Count 238 k/uL (150-450); RBC 3.35 m/uL (3.80-5.40); RDW 19.8 % (11.5-15.5); WBC 5.2 k/uL (3.8-10.6)
[2019-08-06] MEDS: INSULIN ASPART (NovoLOG) 100 UNIT/ML VIAL SQ SCH ×4 (08:43→19:58)
[2019-08-06 08:57] LABS: Calcium 8.7 mg/dL (8.4-10.2); Potassium 4.7 mmol/L (3.5-5.1)
[2019-08-06] MEDS: hydrALAZINE HCL 50 MG TAB PO SCH ×4 (09:33→21:32)
[2019-08-06] MEDS: NIFEdipine XL 90 MG TAB.ER.24 PO SCH (09:33)
[2019-08-06] MEDS: CARVEDILOL 12.5 MG TAB PO SCH ×2 (09:33→09:34)
[2019-08-06] MEDS: PANTOPRAZOLE 40 MG TABLET PO SCH (09:34)
[2019-08-06] MEDS: HEPARIN SODIUM,PORCINE 5,000 UNIT/ML 1 ML VIAL SQ SCH ×2 (09:41→20:00)
--- NOTE | 2019-08-06 13:23 | P.PN ---
Subjective Progress Note Date: 08/06/19 This is a 29-year-old -Indian female with history of hypertension, chronic systolic heart failure, severe pulmonary hypertension, end-stage renal disease on hemodialysis. Patient presented due to nausea and poorly controlled hypertension. Yesterday, October swelling was increased to 4 times daily, Procardia XL increased to 90 mg daily. Patient underwent hemodialysis yesterday with removal of 3.5 L. Blood pressure is well-controlled today. Gen: This is a 29-year-old thin -Indian female. Patient is sleeping in bed and appears to be comfortable. She arouses easily to verbal stimuli. Afebrile, heart rate 85, blood pressure 100/58, pulse ox 92% on room air. HEENT: Head is atraumatic, normocephalic. Pupils equal, round. Sclerae is anicteric. NECK: Supple. No JVD. No lymphadenopathy. No thyromegaly. LUNGS: Clear to auscultation. No wheezes or rhonchi. No intercostal retract ions. HEART: Regular rate and rhythm. Systolic murmur at the left lower sternal border, S4. ABDOMEN: Soft. Bowel sounds are present. No masses. No tenderness. EXTREMITIES: No pedal edema. No calf tenderness. Dorsalis pedis +2 bilaterally. NEUROLOGICAL: Patient is awake, alert and oriented x3. Cranial nerves 2 through 12 are grossly intact. Assessment: Acute on chronic systolic heart failure End-stage renal disease on hemodialysis Mild troponin elevation secondary to renal failure, acute coronary syndrome ruled out Severe pulmonary hypertension Plan: Continue hemodialysis per nephrology Continue Coreg 25 mg twice daily, hydralazine 100 mg 4 times daily, Procardia XL 90 mg daily Further recommendations to follow based upon clinical course. Nurse practitioner note has been reviewed, I agree with documented findings and plan of care. Patient was seen and examined. Objective - Vital Signs Vital signs: Vital Signs Temp 96.8 F L 08/06/19 05:00 Pulse 85 08/06/19 08:25 Resp 16 08/06/19 08:25 BP 100/58 08/06/19 05:00 Pulse Ox 92 L 08/06/19 05:00 Intake & Output 08/05/19 08/06/19 08/06/19 18:59 06:59 18:59 Intake Total 120 590 240 Output Total 0 0 Balance 120 590 240 Weight 56 kg 56.5 kg Intake: Oral 120 590 240 Output: Urine 0 0 - Labs CBC & Chem 7: 08/06/19 07:44 08/06/19 07:44 Labs: Abnormal Lab Results - Last 24 Hours (Table) 08/05/19 08/05/19 08/06/19 Range/Units 17:07 20:18 07:16 RBC (3.80-5.40) m/uL Hgb (11.4-16.0) gm/dL Hct (34.0-46.0) % MCHC (31.0-37.0) g/dL RDW (11.5-15.5) % Lymphocytes # (1.0-4.8) k/uL Sodium (137-145) mmol/L Chloride (98-107) mmol/L BUN (7-17) mg/dL Creatinine (0.52-1.04) mg/dL Glucose (74-99) mg/dL POC Glucose (mg/dL) 120 H 120 H 123 H (75-99) mg/dL 08/06/19 08/06/19 Range/Units 07:44 07:44 RBC 3.35 L (3.80-5.40) m/uL Hgb 10.0 L (11.4-16.0) gm/dL Hct 32.6 L (34.0-46.0) % MCHC 30.6 L (31.0-37.0) g/dL RDW 19.8 H (11.5-15.5) % Lymphocytes # 0.9 L (1.0-4.8) k/uL Sodium 134 L (137-145) mmol/L Chloride 93 L (98-107) mmol/L BUN 27 H (7-17) mg/dL Creatinine 7.09 H* (0.52-1.04) mg/dL Glucose 115 H (74-99) mg/dL POC Glucose (mg/dL) (75-99) mg/dL Microbiology - Last 24 Hours (Table) 08/04/19 23:12 Blood Culture - Preliminary Blood No Growth after 24 hours
--- NOTE | 2019-08-06 14:02 | PN ---
PROGRESS NOTE Patient is seen for followup for end-stage renal disease. She was admitted to the hospital with shortness of breath, fluid overload. Patient received an extra treatment yesterday. She states she is feeling better and plans for possible discharge today. PHYSICAL EXAMINATION: On examination, blood pressure is 100/58, heart rate 85 per minute. This morning patient is afebrile. Examination of the heart S1, S2. Examination of the lungs, bilateral breath sounds are heard. Abdomen soft, nontender. Examination of lower extremities shows no evidence of edema. Her right upper extremity AV fistula is functioning well. LABS: Show potassium 4.7 from today. ASSESSMENT: 1. End-stage renal disease, on hemodialysis on a Wednesday, Wednesday, Wednesday schedule, status post extra treatment yesterday for fluid overload. 2. Volume overload, now improved. 3. Congestive heart failure, acute on top of chronic, now improved. 4. Severe pulmonary hypertension. 5. Systemic hypertension, partly volume sensitive, now improved post dialysis. PLAN: Next hemodialysis in a.m. Patient can be discharged and she can have her dialysis as outpatient tomorrow. MMODL / IJN: [id number] /
--- NOTE | 2019-08-06 15:53 | PN ---
PROGRESS NOTE DATE OF SERVICE: 08/06/2019 This 29-year-old woman who was admitted with CHF exacerbation as well as chronic renal failure also had COPD also. The patient is being closely monitored at this time. Multiple consultants are following the patient closely including Cardiology and Nephrology. The patient has severe pulmonary hypertension. PAST MEDICAL HISTORY: Reviewed. REVIEW OF SYSTEMS: CARDIOVASCULAR SYSTEM: No angina or palpitations. RESPIRATION as mentioned earlier. GI: As mentioned earlier. : No dysuria. CENTRAL NERVOUS SYSTEM: No numbness or weakness. CURRENT MEDICATIONS: Reviewed and include: 1. Tylenol p.r.n. 2. Broad [place] 5 mg q.6h. 3. DuoNeb q.i.d. and p.r.n. 4. Xanax 0.5 q.h.s. 5. PhosLo 1334 mg p.o. b.i.d. 6. Coreg 25 mg p.o. b.i.d. 7. Rocephin 1 g daily. 8. Sensipar 60 mg Wednesday, and Wednesday. 9. Heparin 5000 subcu b.i.d. 10.Apresoline 100 mg p.o. q.i.d. 11.Dilaudid. 12.Solu-Medrol 40 IV q.8 hours. 13.Procardia XL. 14.Zofran. 15.Protonix 40 mg. 16.Desyrel 50 mg p.o. q.h.s. PHYSICAL EXAM: Patient is alert, oriented x3. Pulse is 85. Blood pressure 100/58, respirations 16, temperature 97.8, pulse ox 92% on room air. HEENT: Conjunctivae normal. NECK: No JVD. CARDIOVASCULAR: S1, S2 muffled. Otherwise ejection systolic murmur present. RESPIRATIONS: Breath sounds diminished in the bases. Bilateral scattered rhonchi and crackles. ABDOMEN: Soft, nontender. LEGS are no edema. No swelling. Nervous system: No focal deficits. LAB STUDIES: WBC 5.1, hemoglobin is 10, sodium 130. Potassium 4.7. ASSESSMENT: 1. Congestive heart failure acute exacerbation with acute on chronic systolic dysfunction, ejection fraction 40-45 percent with possible nonischemic cardiomyopathy. 2. Chronic renal failure with stage IV on hemodialysis Wednesday, Wednesday, Wednesday. 3. Chronic obstructive pulmonary disease, acute asthma exacerbation with acute purulent tracheobronchitis present on admission. 4. Possible pleural pericardial rub and pleurisy. 5. History of failed kidney transplant previously. 6. History of polycystic kidney disease. 7. Hypertension. 8. History of vitamin D deficiency. 9. History of mild to moderate mitral regurgitation. 10.Degenerative joint disease and back pain. 11.History of cardiac catheterization. 12.History of anxiety, depression. 13.Remote history of nicotine dependence. 14.Hypomagnesemia. 15.Troponin 0.085, indeterminate. 16.NT proBNP is 164,000. 17.Anemia, normocytic anemia of chronic disease. 18.Chronic kidney disease. 19.FULL CODE. RECOMMENDATIONS AND DISCUSSION: I recommend to continue current medications, management and symptomatic treatment. Continue the hemodialysis. Monitor fluid and electrolyte balance closely. Chest x-ray noted. I would continue with IV steroids, empiric antibiotics and bronchodilators. The prognosis guarded because of multiple complex medical issues. Further recommendations to follow. The patient may increase ambulation. Possible discharge within next 24-48 hours. The patient is stable. Recommend close followup with Dr. Baez after discharge. MMODL / IJN: [id number] /
[2019-08-06 16:50] LABS: Glucose,Whole Blood 137 mg/dL (75-99)
[2019-08-06] MEDS: HYDROcodone/APAP 5-325MG 1 EACH TAB PO PRN (17:49)
[2019-08-06 19:20] LABS: Glucose,Whole Blood 126 mg/dL (75-99)
[2019-08-06] MEDS: HYDROmorphone 0.5 MG/0.5 ML SYRINGE IVP PRN (21:33)
[2019-08-07] MEDS: HYDROmorphone 0.5 MG/0.5 ML SYRINGE IVP PRN ×2 (03:52→09:46)
[2019-08-07] MEDS: HYDROcodone/APAP 5-325MG 1 EACH TAB PO PRN ×2 (06:55→14:19)
[2019-08-07 07:04] LABS: Glucose,Whole Blood 153 mg/dL (75-99)
[2019-08-07] MEDS: PANTOPRAZOLE 40 MG TABLET PO SCH (08:14)
[2019-08-07] MEDS: HEPARIN SODIUM,PORCINE 5,000 UNIT/ML 1 ML VIAL SQ SCH (08:14)
[2019-08-07] MEDS: INSULIN ASPART (NovoLOG) 100 UNIT/ML VIAL SQ SCH ×2 (08:14→12:31)
[2019-08-07] MEDS: methylPREDNISolone SOD SUCCI 40 MG/ML 1 ML VIAL IV SCH (08:14)
[2019-08-07 08:43] LABS: Anisocytosis Slight; Basophils % (A) 1 %; Eosinophils # (A) 0.1 k/uL (0-0.7); Eosinophils % (A) 1 %; HCT 37.3 % (34.0-46.0); HGB 11.1 gm/dL (11.4-16.0); Hypochromasia Marked; Lymphocytes # (A) 0.5 k/uL (1.0-4.8); Lymphocytes % (A) 10 %; MCH 29.8 pg (25.0-35.0); MCHC 29.8 g/dL (31.0-37.0); MCV 99.9 fL (80.0-100.0); Macrocytosis Moderate; Mean Platelet Volume 8.9; Monocytes # (A) 0.1 k/uL (0-1.0); Monocytes % (A) 2 %; Neutrophils # (A) 4.5 k/uL (1.3-7.7); Neutrophils % (A) 86 %; Platelet Count 303 k/uL (150-450); RBC 3.74 m/uL (3.80-5.40); RDW 19.5 % (11.5-15.5); WBC 5.2 k/uL (3.8-10.6)
[2019-08-07 08:53] LABS: Potassium 5.3 mmol/L (3.5-5.1)
[2019-08-07] MEDS: IPRATROPIUM-ALBUTEROL 3 ML NEB INHALATION SCH ×2 (09:39→12:29)
--- NOTE | 2019-08-07 09:40 | P.PN ---
Subjective Patient is seen in follow-up for end-stage renal disease. She is maintained on hemodialysis on Wednesday schedule. Overall feels better today. No cough. No vomiting. Vital signs are stable. General: The patient appeared well nourished and normally developed. HEENT: Head exam is unremarkable. Neck is without jugular venous distension. LUNGS: Lungs are clear to auscultation and percussion. Breath sounds decreased. HEART: Rate and Rhythm are regular. First and second heart sounds normal. No murmurs, rubs or gallops. ABDOMEN: Abdominal exam reveals normal bowel sounds. Non-tender and non- distended. No evidence of peritonitis. EXTREMITITES: No clubbing, cyanosis, or edema. Objective - Vital Signs Vital signs: Vital Signs Temp 97.6 F 08/07/19 04:49 Pulse 89 08/07/19 04:49 Resp 16 08/07/19 04:49 BP 119/74 08/07/19 04:49 Pulse Ox 98 08/07/19 04:49 Intake & Output 08/06/19 08/07/19 08/07/19 18:59 06:59 18:59 Intake Total 240 830 Output Total 0 Balance 240 830 Weight 53 kg Intake: Intake, IV Titration 50 Amount cefTRIAXone 1 gm In 50 Sodium Chloride 0.9% 50 ml @ 100 mls/hr IVPB Q24H [facility] Rx#:[id number] Oral 240 780 Output: Urine 0 - Labs CBC & Chem 7: 08/07/19 07:31 08/07/19 07:31 Labs: Abnormal Lab Results - Last 24 Hours (Table) 08/06/19 08/06/19 08/07/19 Range/Units 16:49 19:18 07:03 RBC (3.80-5.40) m/uL Hgb (11.4-16.0) gm/dL MCHC (31.0-37.0) g/dL RDW (11.5-15.5) % Lymphocytes # (1.0-4.8) k/uL Sodium (137-145) mmol/L Potassium (3.5-5.1) mmol/L Chloride (98-107) mmol/L BUN (7-17) mg/dL Creatinine (0.52-1.04) mg/dL Glucose (74-99) mg/dL POC Glucose (mg/dL) 137 H 126 H 153 H (75-99) mg/dL 08/07/19 08/07/19 Range/Units 07:31 07:31 RBC 3.74 L (3.80-5.40) m/uL Hgb 11.1 L (11.4-16.0) gm/dL MCHC 29.8 L (31.0-37.0) g/dL RDW 19.5 H (11.5-15.5) % Lymphocytes # 0.5 L (1.0-4.8) k/uL Sodium 136 L (137-145) mmol/L Potassium 5.3 H (3.5-5.1) mmol/L Chloride 93 L (98-107) mmol/L BUN 47 H (7-17) mg/dL Creatinine 9.54 H* (0.52-1.04) mg/dL Glucose 149 H (74-99) mg/dL POC Glucose (mg/dL) (75-99) mg/dL Microbiology - Last 24 Hours (Table) 08/04/19 23:12 Blood Culture - Preliminary Blood No Growth after 48 hours Assessment and Plan Plan: Assessment: 1. End-stage renal disease maintained on hemodialysis on Wednesday schedule. 2. Dyspnea secondary to volume overload. Improved with ultrafiltration. Also component of bronchitis. 3. Acute on chronic systolic CHF with severe tricuspid regurgitation and pulmonary hypertension. 4. Hypertension with chronic kidney disease. Controlled. 5. 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 Plan: Hemodialysis today.
[2019-08-07] MEDS: CARVEDILOL 12.5 MG TAB PO SCH (10:18)
[2019-08-07] MEDS: hydrALAZINE HCL 50 MG TAB PO SCH ×2 (10:18→12:37)
[2019-08-07] MEDS: NIFEdipine XL 90 MG TAB.ER.24 PO SCH (10:20)
[2019-08-07 11:15] LABS: Glucose,Whole Blood 145 mg/dL (75-99)
[2019-08-07 12:02] VITALS: RESP 17
[2019-08-07] MEDS ORDERED: diphenhydrAMINE 50 MG/ML 1 ML VIAL IVP STA (12:53)
[2019-08-07 18:32] VITALS: BP 159/92; PULSE 81; TEMP 98.5
--- NOTE | 2019-08-08 07:45 | DS ---
DISCHARGE SUMMARY DATE OF SERVICE: 08/07/2019 FINAL DIAGNOSES: 1. Congestive heart failure acute exacerbation with acute on chronic systolic dysfunction, ejection fraction 40%-45% with possible nonischemic cardiomyopathy. 2. Acute asthma acute exacerbation with acute purulent tracheobronchitis, present on admission. 3. Chronic renal failure stage IV on hemodialysis on a Wednesday, Wednesday, Wednesday. 4. Possible pleural pericardial rub and pleurisy. 5. History of failed kidney transplant, previous history of polycystic kidney disease. 6. Hypertension. 7. History of vitamin D deficiency. 8. History of mild to moderate mitral regurgitation. 9. History of degenerative joint disease. 10.History of cardiac catheterization. 11.History of anxiety, depression. 12.Remote history of nicotine dependence. 13.Hypomagnesemia. 14.Troponin 0.085, indeterminate. 15.NT proBNP 164,000. 16.Anemia, normocytic anemia of chronic disease. 17.Chronic kidney disease. 18.FULL CODE. DISCHARGE DISPOSITION: The patient will be discharged in a stable condition with guarded prognosis. Total time taken 35 minutes. HISTORY OF PRESENT ILLNESS: This is a 29-year-old woman with a past medical history of multiple medical problems being followed by Dr. Baez in the outpatient setting. The patient had shortness of breath and polymultifactorial CHF and COPD acute exacerbation, asthma acute exacerbation treated with bronchodilators and short course of steroids and antibiotics. The patient improved significantly. Nephrology saw the patient. Hemodialysis continued. On exam, vitals are stable. CARDIOVASCULAR: S1, S2, muffled. ABDOMEN: Soft. NERVOUS SYSTEM: No focal deficits. DISCHARGE ADVICE: 1. Discharge diet is cardiac, no added salt, fluid restriction 1200 mL per 24 hours. 2. Follow up with Dr. Baez in 2-3 days. 3. Follow up with Cardiology and as well as Nephrology as mentioned. DISCHARGE MEDICATIONS: 1. Apresoline 100 mg p.o. t.i.d. 2. Coreg 12.25 mg p.o. b.i.d. 3. Desyrel 50 mg q.h.s. p.r.n. 4. Lidocaine local application. 5. PhosLo 667, 1334 mg a.c. t.i.d. 6. ProAir 2 puffs q.i.d. p.r.n. 7. Procardia XL 60 mg p.o. daily. 8. Protonix 40 mg p.o. daily. 9. Sensipar 60 mg Wednesday, , Wednesday. 10.Tylenol p.r.n. 11.Xanax 0.5 q.h.s. 12.Zofran 8 mg q.8 p.r.n. 13.Ceftin 500 mg p.o. b.i.d. 14.DuoNeb q.i.d. and p.r.n. 15.Prednisone taper that will be 40 mg daily for 3 days, 30 for 3 days, 20 for 3 days and 10 for 3 days. Once again the patient will be discharged in a stable condition with guarded prognosis. MMODL / IJN: [id number] /
== END 2019-08-07 15:14 | disposition home or self-care (01) | DRG 291 ==
LOC: EC 16:34 → 5NMEDONC 18:51 → OBSVTOIN 08-06 13:19
PROVIDERS: ADMIT Hospitalist; ATTEND Hospitalist
PROC: 5A1D70Z Performance of Urinary Filtration, Intermittent, Less than 6 Hours Per Day (ICD-10-PCS; principal; 2019-08-06)
DX: I13.2 Hypertensive heart and chronic kidney disease with heart failure and with stage 5 chronic kidney disease, or end stage renal disease (principal); I50.23 Acute on chronic systolic (congestive) heart failure; N18.6 End stage renal disease; J45.901 Unspecified asthma with (acute) exacerbation; J44.1 Chronic obstructive pulmonary disease with (acute) exacerbation; T86.12 Kidney transplant failure; Q61.3 Polycystic kidney, unspecified; E87.1 Hypo-osmolality and hyponatremia; I42.8 Other cardiomyopathies; Y83.0 Surgical operation with transplant of whole organ as the cause of abnormal reaction of the patient, or of later complication, without mention of misadventure at the time of the procedure; M89.9 Disorder of bone, unspecified; I27.20 Pulmonary hypertension, unspecified; M89.8X9 Other specified disorders of bone, unspecified site; E87.5 Hyperkalemia; E55.9 Vitamin D deficiency, unspecified; E83.42 Hypomagnesemia; D63.8 Anemia in other chronic diseases classified elsewhere; F32.9 Major depressive disorder, single episode, unspecified; F41.9 Anxiety disorder, unspecified; G89.29 Other chronic pain; I08.1 Rheumatic disorders of both mitral and tricuspid valves; R79.89 Other specified abnormal findings of blood chemistry; M19.90 Unspecified osteoarthritis, unspecified site; I25.10 Atherosclerotic heart disease of native coronary artery without angina pectoris; Z79.899 Other long term (current) drug therapy; Z87.891 Personal history of nicotine dependence; Z91.14 Patient's other noncompliance with medication regimen; Z99.2 Dependence on renal dialysis; Z88.8 Allergy status to other drugs, medicaments and biological substances
CPT/HCPCS: 36415; 71046; 80048; 80053; 83735; 83880; 84484; 85025; 85652; 86140; 87040; 87502; 90935; 93005; 93306; 94640; 96374; 96375; 99285

== ENCOUNTER 2019-08-13 15:26 | Inpatient (IN) | payer BC, MEDICARE, OTHER ==
[2019-08-13] MEDS ORDERED: ASPIRIN 325 MG TAB PO STA (15:58)
--- NOTE | 2019-08-13 15:58 | ED ---
SOB HPI - General Source: patient, RN notes reviewed, old records reviewed Mode of arrival: ambulatory Limitations: no limitations <Becky Bangura - Last Filed: 08/13/19 17:50> <Aguila Edge - Last Filed: 08/13/19 17:56> - General Chief Complaint: Shortness of Breath Stated Complaint: JEAN Time Seen by Provider: 08/13/19 15:41 - History of Present Illness Initial Comments: MRI is a 29-year-old female well-known to emergency department, dialysis Patient currently on Wednesday and Wednesday. She presents today with worsening shortness of breath, fluid overload. Patient states that she completed her dialysis on Wednesday at 6 AM. Patient states that she is having just diffuse pain, trouble breathing. Patient states that she follows with Dr. Thompson. She does have history of polycystic kidney disease and failed renal transplant. (Becky Bangura) - Related Data Home Medications Medication Instructions Recorded Confirmed Albuterol Sulfate [Proair Hfa] 2 puff INHALATION RT-Q6H PRN 01/22/16 08/04/19 Calcium Acetate [PhosLo] 1,334 mg PO AC-TID 05/01/18 08/04/19 Carvedilol [Coreg] 25 mg PO BID 05/28/18 08/04/19 hydrALAZINE HCL [Apresoline] 100 mg PO TID 11/16/18 08/04/19 Cinacalcet HCl [Sensipar] 60 mg PO TUTHSA 02/26/19 08/04/19 Lidocaine-Prilocaine Cream [Emla 1 applic TOPICAL DAILY PRN 05/24/19 08/04/19 Cream 2.5%/2.5%] traZODone HCL [Desyrel] 50 mg PO HS PRN 05/24/19 08/04/19 Acetaminophen Tab [Tylenol] 650 mg PO Q6H PRN 06/10/19 08/04/19 NIFEdipine [Procardia XL] 60 mg PO DAILY 06/10/19 08/04/19 ALPRAZolam [Xanax] 0.25 mg PO HS PRN 07/03/19 08/04/19 Pantoprazole [Protonix] 40 mg PO DAILY 07/09/19 08/04/19 Ondansetron Odt [Zofran ODT] 8 mg SL Q8H PRN 07/10/19 08/04/19 Calcium Acetate [PhosLo] 1,334 mg PO BID PRN 08/04/19 08/04/19 Previous Rx's Medication Instructions Recorded Cefuroxime Axetil [Ceftin] 500 mg PO BID 3 Days #6 tab 08/07/19 Ipratropium-Albuterol Nebulize 3 ml INHALATION RT-QID #120 08/07/19 [Duoneb 0.5 mg-3 mg/3 ml Soln] ampul.neb predniSONE 10 mg PO DIRECTED #30 tab 08/07/19 Allergies Allergy/AdvReac Type Severity Reaction Status Date / Time hydralazine AdvReac Rapid Verified 08/13/19 15:30 Heart Rate WHEN GIVEN THROUGH IV Review of Systems ROS Other: All systems not noted in ROS Statement are negative. <Becky Bangura - Last Filed: 08/13/19 17:50> ROS Other: All systems not noted in ROS Statement are negative. <Aguila Edge - Last Filed: 08/13/19 17:56> ROS Statement: Those systems with pertinent positive or pertinent negative responses have been documented in the HPI. 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 Past Anesthesia/Blood Transfusion Reactions: No Reported Reaction Additional Past Anesthesia/Blood Transfusion Reaction / Comment(s): Pt has received blood in past without reaction. Past Psychological History: Anxiety, Depression Smoking Status: Never smoker Past Alcohol Use History: None Reported Past Drug Use History: Marijuana - Past Family History Father Family Medical History: No Reported History Additional Family Medical History / Comment(s): Father is healthy and is 62 yrs old. Mother Family Medical History: No Reported History Additional Family Medical History / Comment(s): Mother is healthy and is 60 yrs old. <Becky Banguar - Last Filed: 08/13/19 17:50> General Exam Limitations: no limitations General appearance: alert, in no apparent distress Head exam: Present: atraumatic, normocephalic, normal inspection Eye exam: Present: normal appearance ENT exam: Present: normal exam, mucous membranes moist Neck exam: Present: normal inspection. Absent: tenderness, meningismus, lymphadenopathy Respiratory exam: Present: normal lung sounds bilaterally Cardiovascular Exam: Present: regular rate, normal rhythm, normal heart sounds, S3. Absent: systolic murmur, diastolic murmur, rubs, gallop, clicks GI/Abdominal exam: Present: soft, normal bowel sounds. Absent: distended, tenderness, guarding, rebound, rigid Extremities exam: Present: normal inspection, full ROM, normal capillary refill. Absent: tenderness, pedal edema, joint swelling, calf tenderness Back exam: Present: normal inspection Neurological exam: Present: alert, oriented X3, CN II-XII intact Psychiatric exam: Present: normal affect, normal mood Skin exam: Present: warm, dry, intact, normal color. Absent: rash <Becky Bangura - Last Filed: 08/13/19 17:50> - General Exam Comments Initial Comments: When he threw a 29-year-old female. Alert and oriented 3 (Becky Bangura) Course <Aguila Edge - Last Filed: 08/13/19 17:56> Vital Signs 08/13/19 08/13/19 08/13/19 15:28 16:53 17:09 Temperature 98.1 F Pulse Rate 104 H 99 Respiratory 26 H 18 Rate Blood Pressure 196/140 180/135 O2 Sat by Pulse 95 100 98 Oximetry - Reevaluation(s) Reevaluation #1: 08/13/19 17:55 PA supervision: I proceeded [id number] evaluation the patient did discuss findings with her. I also discussed the case with Dr. Bryson and with Dr. Thompson. Patient will be admitted for treatment of hyperkalemia. Dialysis will be initiated tonight. (Aguila Edge) Medical Decision Making - Lab Data Result diagrams: 08/13/19 16:10 08/13/19 16:10 - Radiology Data Radiology results: report reviewed <ZulayBecky hill - Last Filed: 08/13/19 17:50> - Lab Data Result diagrams: 08/13/19 16:10 08/13/19 16:10 <Aguila Edge - Last Filed: 08/13/19 17:56> - Medical Decision Making Patient is a 29-year-old female, renal Patient on dialysis. She presents today for worsening shortness of breath. Patient appears subcu fluid overload. Her dialysis was last on Wednesday. Patient also has labs obtained per she is given labetalol, and nitro. Patient's blood pressure did decline slightly while here. Labs show significant hyperkalemia EKG did show peaked T waves. Hyperkalemia protocol was initiated with calcium, insulin, as well as albuterol. I discussed case promptly with Dr. Edge, who discussed the case with Dr. 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 Thompson. He ordered emergent dialysis. Patient has been resting comfortably in bed on reevaluation. Agrees to admission. (Becky Bangura) - Lab Data Lab Results 08/13/19 08/13/19 08/13/19 Range/Units 16:10 16:10 16:10 WBC 5.8 (3.8-10.6) k/uL RBC 3.25 L (3.80-5.40) m/uL Hgb 9.6 L D (11.4-16.0) gm/dL Hct 31.3 L (34.0-46.0) % MCV 96.3 (80.0-100.0) fL MCH 29.7 (25.0-35.0) pg MCHC 30.8 L (31.0-37.0) g/dL RDW 18.9 H (11.5-15.5) % Plt Count 188 (150-450) k/uL Neutrophils % 66 % Lymphocytes % 17 % Monocytes % 6 % Eosinophils % 9 % Basophils % 1 % Neutrophils # 3.8 (1.3-7.7) k/uL Lymphocytes # 1.0 (1.0-4.8) k/uL Monocytes # 0.3 (0-1.0) k/uL Eosinophils # 0.5 (0-0.7) k/uL Basophils # 0.1 (0-0.2) k/uL Hypochromasia Marked Anisocytosis Slight Macrocytosis Slight PT (9.0-12.0) sec INR (<1.2) APTT (22.0-30.0) sec Sodium 135 L (137-145) mmol/L Potassium 7.0 H* (3.5-5.1) mmol/L Chloride 97 L (98-107) mmol/L Carbon Dioxide 23 (22-30) mmol/L Anion Gap 15 mmol/L BUN 85 H (7-17) mg/dL Creatinine 9.09 H* (0.52-1.04) mg/dL Est GFR (CKD-EPI)AfAm 6 (>60 ml/min/1.73 sqM) Est GFR (CKD-EPI)NonAf 5 (>60 ml/min/1.73 sqM) Glucose 90 (74-99) mg/dL Calcium 9.8 (8.4-10.2) mg/dL Magnesium 2.0 (1.6-2.3) mg/dL Total Bilirubin 1.3 (0.2-1.3) mg/dL AST 60 H (14-36) U/L ALT 50 H (4-34) U/L Alkaline Phosphatase 141 H (38-126) U/L Troponin I (0.000-0.034) ng/mL NT-Pro-B Natriuret Pep 317768 pg/mL Total Protein 7.5 (6.3-8.2) g/dL Albumin 4.3 (3.5-5.0) g/dL 08/13/19 08/13/19 Range/Units 16:10 16:10 WBC (3.8-10.6) k/uL RBC (3.80-5.40) m/uL Hgb (11.4-16.0) gm/dL Hct (34.0-46.0) % MCV (80.0-100.0) fL MCH (25.0-35.0) pg MCHC (31.0-37.0) g/dL RDW (11.5-15.5) % Plt Count (150-450) k/uL Neutrophils % % Lymphocytes % % Monocytes % % Eosinophils % % Basophils % % Neutrophils # (1.3-7.7) k/uL Lymphocytes # (1.0-4.8) k/uL Monocytes # (0-1.0) k/uL Eosinophils # (0-0.7) k/uL Basophils # (0-0.2) k/uL Hypochromasia Anisocytosis Macrocytosis PT 13.3 H (9.0-12.0) sec INR 1.3 H (<1.2) APTT 25.0 (22.0-30.0) sec Sodium (137-145) mmol/L Potassium (3.5-5.1) mmol/L Chloride (98-107) mmol/L Carbon Dioxide (22-30) mmol/L Anion Gap mmol/L BUN (7-17) mg/dL Creatinine (0.52-1.04) mg/dL Est GFR (CKD-EPI)AfAm (>60 ml/min/1.73 sqM) Est GFR (CKD-EPI)NonAf (>60 ml/min/1.73 sqM) Glucose (74-99) mg/dL Calcium (8.4-10.2) mg/dL Magnesium (1.6-2.3) mg/dL Total Bilirubin (0.2-1.3) mg/dL AST (14-36) U/L ALT (4-34) U/L Alkaline Phosphatase (38-126) U/L Troponin I 0.054 H* (0.000-0.034) ng/mL NT-Pro-B Natriuret Pep pg/mL Total Protein (6.3-8.2) g/dL Albumin (3.5-5.0) g/dL - Radiology Data Patient chest x-ray shows severe cardiomegaly in the same, or slightly increased compared to last exam. Mild congestive heart failure. No change in pulmonary congestion. (Becky Bangura) Critical Care Time Critical Care Time: Yes Total Critical Care Time: 35 <Becky Bangura - Last Filed: 08/13/19 17:50> Disposition Is patient prescribed a controlled substance at d/c from ED?: No Time of Disposition: 17:53 <Becky Bangura - Last Filed: 08/13/19 17:50> <Aguila Edge - Last Filed: 08/13/19 17:56> Clinical Impression: Congestive heart failure, ESRD (end stage renal disease) on dialysis, Hyperkalemia, Dyspnea, Hypertensive urgency Disposition: ADMITTED IP TO THIS [facility] Condition: Stable Referrals: Mary Baez MD [Primary Care Provider] - 1-2 days
[2019-08-13] MEDS ORDERED: LABETALOL 5 MG/ML VIAL MDV IVP STA (16:06)
[2019-08-13] MEDS ORDERED: NITROGLYCERIN OINT 1 INCH/GM PACKET TOPICAL STA (16:06)
--- NOTE | 2019-08-13 16:17 | XR ---
EXAMINATION TYPE: XR chest 2V DATE OF EXAM: 08/13/2019 COMPARISON: 08/04/2019 HISTORY: Difficulty breathing TECHNIQUE: FINDINGS: Heart is moderately enlarged. There is pulmonary vascular congestion. There is no definite pleural effusion. Bony thorax is intact. IMPRESSION: Severe cardiomegaly the same or slightly increased compared to last exam. Mild congestive heart failure. No change in pulmonary congestion.
[2019-08-13 16:26] LABS: Anisocytosis Slight; Basophils # (A) 0.1 k/uL (0-0.2); Basophils % (A) 1 %; Eosinophils # (A) 0.5 k/uL (0-0.7); Eosinophils % (A) 9 %; HCT 31.3 % (34.0-46.0); Hypochromasia Marked; Lymphocytes % (A) 17 %; MCH 29.7 pg (25.0-35.0); MCHC 30.8 g/dL (31.0-37.0); MCV 96.3 fL (80.0-100.0); Macrocytosis Slight; Mean Platelet Volume 8.7; Monocytes # (A) 0.3 k/uL (0-1.0); Monocytes % (A) 6 %; Neutrophils # (A) 3.8 k/uL (1.3-7.7); Neutrophils % (A) 66 %; Platelet Count 188 k/uL (150-450); RBC 3.25 m/uL (3.80-5.40); RDW 18.9 % (11.5-15.5); WBC 5.8 k/uL (3.8-10.6)
[2019-08-13] MEDS ORDERED: MORPHINE SULFATE 2 MG/ML SYRINGE IVP ONE (16:28)
[2019-08-13 16:29] LABS: HGB 9.6 gm/dL (11.4-16.0)
[2019-08-13 16:35] LABS: INR 1.3 (<1.2); Prothrombin Time 13.3 sec (9.0-12.0)
[2019-08-13 16:46] LABS: Albumin 4.3 g/dL (3.5-5.0); Calcium 9.8 mg/dL (8.4-10.2); Total Bilirubin 1.3 mg/dL (0.2-1.3); Total Protein 7.5 g/dL (6.3-8.2)
[2019-08-13] MEDS ORDERED: INSULIN REGULAR 100 UNIT/ML VIAL IV ONE (17:11)
[2019-08-13] MEDS ORDERED: CALCIUM GLUCONATE 1 GM in SODIUM CHLORIDE 0.9% 100 ML IVPB ONE (17:11)
[2019-08-13] MEDS ORDERED: ALBUTEROL NEB (CONC) 2.5 MG/0.5 ML INHALATION ONE (17:11)
[2019-08-13] MEDS ORDERED: SODIUM POLYSTYRENE SULFONATE 15 GM/60 ML BOTTLE PO ONE (17:11)
[2019-08-13] MEDS ORDERED: DEXTROSE 10 % IN WATER 250 ML IV ONE (17:11)
[2019-08-13] MEDS ORDERED: ACETAMINOPHEN TAB 325 MG TAB PO PRN ×2 (17:46→20:30)
[2019-08-13] MEDS ORDERED: NALOXONE 0.4 MG/ML 1 ML VIAL IV PRN (17:46)
[2019-08-13] MEDS: NITROGLYCERIN OINT 1 INCH/GM PACKET TOPICAL SCH ×2 (18:57→22:46)
[2019-08-13] MEDS ORDERED: diphenhydrAMINE 50 MG/ML 1 ML VIAL IVP PRN (20:29)
[2019-08-13] MEDS ORDERED: ALBUTEROL NEBULIZED 2.5 MG/3 ML INHALATION PRN (20:30)
[2019-08-13] MEDS ORDERED: CALCIUM ACETATE 667 MG TAB PO PRN (20:30)
[2019-08-13] MEDS ORDERED: LIDOCAINE-PRILOCAINE 2.5-2.5% CREAM 5 GM TUBE TOPICAL PRN (20:30)
[2019-08-13] MEDS ORDERED: ONDANSETRON ODT 8 MG TAB.RAPDIS PO PRN (20:30)
[2019-08-13] MEDS ORDERED: ALPRAZolam 0.25 MG TAB PO PRN (20:30)
[2019-08-13] MEDS ORDERED: traZODone HCL 50 MG TAB PO PRN (20:30)
[2019-08-13] MEDS: MORPHINE SULFATE 4 MG/ML SYRINGE IV PRN (21:07)
[2019-08-13] MEDS: ONDANSETRON 4 MG/2 ML VIAL IVP PRN (21:07)
[2019-08-13] MEDS: hydrALAZINE HCL 50 MG TAB PO SCH (21:08)
[2019-08-13] MEDS: CARVEDILOL 12.5 MG TAB PO SCH (21:08)
[2019-08-13 23:53] LABS: Calcium 9.7 mg/dL (8.4-10.2); Potassium 5.2 mmol/L (3.5-5.1)
[2019-08-14] MEDS: MORPHINE SULFATE 4 MG/ML SYRINGE IV PRN ×3 (02:45→11:32)
[2019-08-14 06:18] LABS: Anisocytosis Slight; HCT 30.8 % (34.0-46.0); HGB 9.5 gm/dL (11.4-16.0); Hypochromasia Marked; MCH 30.1 pg (25.0-35.0); MCHC 30.8 g/dL (31.0-37.0); MCV 97.7 fL (80.0-100.0); Macrocytosis Slight; Mean Platelet Volume 8.7; Platelet Count 134 k/uL (150-450); RBC 3.15 m/uL (3.80-5.40); RDW 18.9 % (11.5-15.5); WBC 4.8 k/uL (3.8-10.6)
[2019-08-14] MEDS: CALCIUM ACETATE 667 MG TAB PO SCH ×3 (06:28→17:36)
[2019-08-14] MEDS: CARVEDILOL 12.5 MG TAB PO SCH ×2 (06:28→17:37)
[2019-08-14] MEDS: PANTOPRAZOLE 40 MG TABLET PO SCH (06:29)
[2019-08-14 06:31] LABS: Calcium 9.3 mg/dL (8.4-10.2); Potassium 5.8 mmol/L (3.5-5.1)
[2019-08-14] MEDS: ONDANSETRON 4 MG/2 ML VIAL IVP PRN (06:31)
[2019-08-14] MEDS ORDERED: PANTOPRAZOLE 40 MG/10 ML VIAL IV SCH (09:00)
[2019-08-14] MEDS ORDERED: HYDROcodone/APAP 5-325MG 1 EACH TAB PO PRN (11:31)
[2019-08-14] MEDS: hydrALAZINE HCL 50 MG TAB PO SCH ×3 (11:33→22:20)
[2019-08-14] MEDS: NITROGLYCERIN OINT 1 INCH/GM PACKET TOPICAL SCH ×4 (11:33→22:20)
[2019-08-14] MEDS ORDERED: MINERAL OIL-WHITE PETROLATUM 120 GM JAR TOPICAL PRN (11:35)
[2019-08-14 11:44] VITALS: BMI 23.9
--- NOTE | 2019-08-14 11:46 | P.HPIM ---
History of Present Illness 29-year-old pleasant female is admitted for shortness of breath and found to have fluid overload patient has multiple similar admissions. Pending patient is Wednesday hemodialysis. Patient has chronic abdominal pain is comparing of the abdominal pain which is fairly severe for which patient is receiving morphine which was switched to Dilaudid because of her renal dysfunction at a low dose and decreased frequency. Patient's abdomen is not tender no rebound rigidity diffuse abdominal pain sharp in nature patient is already on Protonix follow-up and abdominal x-ray although my suspicion is low for any acute abdomen. Patient has normal bowel movements on daily basis. Patient received hemodialysis with which her respiratory status did improve will monitor her overnight. Patient has multiple electrolyte abnormality this including hyperkalemia which resolved after hemodialysis. has a significantly dry skin because of which she is a chain for that we rather use the moisturizing lotion rather than Benadryl. Review of Systems REVIEW OF SYSTEMS: CONSTITUTIONAL: No fever, no malaise, no fatigue. HEENT: No recent visual problems or hearing problems. Denied any sore throat. CARDIOVASCULAR: No chest pain, orthopnea, PND, no palpitations, no syncope. PULMONARY: No shortness of breath, no cough, no hemoptysis. GASTROINTESTINAL: No diarrhea, no nausea, no vomiting. NEUROLOGICAL: No headaches, no weakness, no numbness. HEMATOLOGICAL: Denies any bleeding or petechiae. GENITOURINARY: Denies any burning micturition, frequency, or urgency. MUSCULOSKELETAL/RHEUMATOLOGICAL: Denies any joint pain, swelling, or any muscle pain. ENDOCRINE: Denies any polyuria or polydipsia. The rest of the 14-point review of systems is negative. 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 Past Anesthesia/Blood Transfusion Reactions: No Reported Reaction Additional Past Anesthesia/Blood Transfusion Reaction / Comment(s): Pt has received blood in past without reaction. Past Psychological History: Anxiety, Depression Additional Psychological History / Comment(s): Pt resides with family. She is independent. She drives. She is disabled. She states she has anxiety and depression but no suicidal thoughts/ idealations or plans. Smoking Status: Never smoker Past Alcohol Use History: None Reported Additional Past Alcohol Use History / Comment(s): Pt states she started smoking socially as a teen and quit smoking in 2016. Past Drug Use History: Marijuana Additional Drug Use History / Comment(s): Couple times a week. - Past Family History Father Family Medical History: No Reported History Additional Family Medical History / Comment(s): Father is healthy and is 62 yrs old. Mother Family Medical History: No Reported History Additional Family Medical History / Comment(s): Mother is healthy and is 60 yrs old. Medications and Allergies Home Medications Medication Instructions Recorded Confirmed Type Albuterol Sulfate [Proair Hfa] 2 puff INHALATION RT-Q6H PRN 01/22/16 08/13/19 History Calcium Acetate [PhosLo] 1,334 mg PO AC-TID 05/01/18 08/13/19 History Carvedilol [Coreg] 25 mg PO BID 05/28/18 08/13/19 History hydrALAZINE HCL [Apresoline] 100 mg PO TID 11/16/18 08/13/19 History Cinacalcet HCl [Sensipar] 60 mg PO TUTHSA 02/26/19 08/13/19 History Lidocaine-Prilocaine Cream [Emla 1 applic TOPICAL DAILY PRN 05/24/19 08/13/19 History Cream 2.5%/2.5%] traZODone HCL [Desyrel] 50 mg PO HS PRN 05/24/19 08/13/19 History Acetaminophen Tab [Tylenol] 650 mg PO Q6H PRN 06/10/19 08/13/19 History NIFEdipine [Procardia XL] 60 mg PO DAILY 06/10/19 08/13/19 History ALPRAZolam [Xanax] 0.25 mg PO HS PRN 07/03/19 08/13/19 History Pantoprazole [Protonix] 40 mg PO DAILY 07/09/19 08/13/19 History Ondansetron Odt [Zofran ODT] 8 mg SL Q8H PRN 07/10/19 08/13/19 History Calcium Acetate [PhosLo] 1,334 mg PO BID PRN 08/04/19 08/13/19 History Allergies Allergy/AdvReac Type Severity Reaction Status Date / Time hydralazine AdvReac Rapid Verified 08/13/19 18:09 Heart Rate WHEN GIVEN THROUGH IV Physical Exam Vitals: Vital Signs Temp Pulse Pulse Pulse Resp BP BP 08/14/19 03:26 88 17 166/121 08/14/19 00:00 88 16 164/108 08/13/19 21:15 98.0 F 89 20 150/110 08/13/19 20:00 95 16 159/109 08/13/19 18:43 98.4 F 98 20 181/116 08/13/19 18:33 98.3 F 90 18 178/122 08/13/19 18:07 96 08/13/19 17:57 90 18 186/123 08/13/19 17:54 94 08/13/19 17:09 180/135 08/13/19 16:53 99 18 08/13/19 15:28 98.1 F 104 H 26 H 196/140 Pulse Ox 08/14/19 03:26 98 08/14/19 00:00 98 08/13/19 21:15 08/13/19 20:00 100 08/13/19 18:43 99 08/13/19 18:33 98 08/13/19 18:07 08/13/19 17:57 98 08/13/19 17:54 08/13/19 17:09 98 08/13/19 16:53 100 08/13/19 15:28 95 Intake and Output 08/13/19 08/14/19 08/14/19 22:59 06:59 14:59 Intake Total 240 0 Output Total 2250 -2009 0 Intake: Oral 240 0 Output: Hemodialysis 2250 Other: # Voids 0 Weight 60 kg 59.4 kg PHYSICAL EXAMINATION: GENERAL: The patient is alert and oriented x3, not in any acute distress. Thin built HEENT: Pupils are round and equally reacting to light. EOMI. No scleral icterus. No conjunctival pallor. Normocephalic, atraumatic. No pharyngeal erythema. No thyromegaly. CARDIOVASCULAR: S1 and S2 present. No murmurs, rubs, or gallops. PULMONARY: Chest is clear to auscultation, no wheezing or crackles. ABDOMEN: Firm, nontender, distended, normoactive bowel sounds. No palpable organomegaly. MUSCULOSKELETAL: No joint swelling or deformity. EXTREMITIES: No cyanosis, clubbing, or pedal edema. NEUROLOGICAL: Gross neurological examination did not reveal any focal deficits. SKIN: No rashes. Results CBC & Chem 7: 08/14/19 05:47 08/14/19 05:47 Labs: Abnormal Lab Results - Last 24 Hours (Table) 08/13/19 08/13/19 08/13/19 Range/Units 16:10 16:10 16:10 RBC 3.25 L (3.80-5.40) m/uL Hgb 9.6 L D (11.4-16.0) gm/dL Hct 31.3 L (34.0-46.0) % MCHC 30.8 L (31.0-37.0) g/dL RDW 18.9 H (11.5-15.5) % Plt Count (150-450) k/uL PT 13.3 H (9.0-12.0) sec INR 1.3 H (<1.2) Sodium 135 L (137-145) mmol/L Potassium 7.0 H* (3.5-5.1) mmol/L Chloride 97 L (98-107) mmol/L BUN 85 H (7-17) mg/dL Creatinine 9.09 H* (0.52-1.04) mg/dL AST 60 H (14-36) U/L ALT 50 H (4-34) U/L Alkaline Phosphatase 141 H (38-126) U/L Troponin I (0.000-0.034) ng/mL 08/13/19 08/13/19 08/14/19 Range/Units 16:10 23:11 05:47 RBC 3.15 L (3.80-5.40) m/uL Hgb 9.5 L (11.4-16.0) gm/dL Hct 30.8 L (34.0-46.0) % MCHC 30.8 L (31.0-37.0) g/dL RDW 18.9 H (11.5-15.5) % Plt Count 134 L (150-450) k/uL PT (9.0-12.0) sec INR (<1.2) Sodium 136 L (137-145) mmol/L Potassium 5.2 H (3.5-5.1) mmol/L Chloride 96 L (98-107) mmol/L BUN 61 H (7-17) mg/dL Creatinine 6.89 H (0.52-1.04) mg/dL AST (14-36) U/L ALT (4-34) U/L Alkaline Phosphatase (38-126) U/L Troponin I 0.054 H* (0.000-0.034) ng/mL 08/14/19 Range/Units 05:47 RBC (3.80-5.40) m/uL Hgb (11.4-16.0) gm/dL Hct (34.0-46.0) % MCHC (31.0-37.0) g/dL RDW (11.5-15.5) % Plt Count (150-450) k/uL PT (9.0-12.0) sec INR (<1.2) Sodium 136 L (137-145) mmol/L Potassium 5.8 H (3.5-5.1) mmol/L Chloride 96 L (98-107) mmol/L BUN 64 H (7-17) mg/dL Creatinine 7.88 H* (0.52-1.04) mg/dL AST (14-36) U/L ALT (4-34) U/L Alkaline Phosphatase (38-126) U/L Troponin I (0.000-0.034) ng/mL Thrombosis Risk Factor Assmnt - Choose All That Apply Any of the Below Risk Factors Present?: No Other Risk Factors: No Other congenital or acquired thrombophilia - If yes, enter type in comment: No Thrombosis Risk Factor Assessment Level: Very Low Risk Assessment and Plan Plan: -Volume overload because of heart failure chronic systolic dysfunction with acute exacerbation. Along with end-stage renal disease. Patient underwent hemodialysis may require another session of hemodialysis tomorrow. Nephrology evaluated the patient -Abdominal pain nonspecific will obtain abdominal x-ray patient does have chronic abdominal pain I believe that's what is going on patient will be continued on Protonix we'll rule out any bowel rupture with an abdominal x-ray. Although my clinical suspicion is extremely low for that -Accelerated and uncontrolled hypertension patient will be resumed on her home medication patient has chronically elevated blood pressures. -Itching due to dry skin ordered Eucerin cream -Congestive heart failure chronic systolic dysfunction with acute exacerbation: Hemodialysis as mentioned above patient doesn't make much urine. 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
[2019-08-14] MEDS: HYDROmorphone 0.5 MG/0.5 ML SYRINGE IVP PRN ×3 (14:35→22:20)
--- NOTE | 2019-08-14 15:23 | PN ---
PROGRESS NOTE Patient is seen on hemodialysis. She is complaining of severe itching while on admission and wants to come off. Patient has had about 3 hours of treatment. She also had a treatment yesterday for severe hyperkalemia and potassium of 7. This morning, potassium was 5.8. She remains fluid overloaded as well with elevated blood pressures. PHYSICAL EXAMINATION: On examination, blood pressure was 162/87, heart rate 82 per minute, patient is afebrile examination of the heart S1, S2. Examination of the lungs, decreased breath sounds at bases. Abdomen is soft, nontender. Examination of lower extremities shows no evidence of edema. [employer] exam grossly intact. LABS: Sodium of 136, potassium 5.8, creatinine 7.8, hemoglobin 9.5 g/dL. ASSESSMENT: End-stage renal disease, on hemodialysis. MMODL / IJN: [id number] /
--- NOTE | 2019-08-14 15:27 | XR ---
EXAMINATION TYPE: XR abdomen acute w cxr DATE OF EXAM: 08/14/2019 COMPARISON: 08/28/2018 HISTORY: Abdominal pain and congestive heart failure TECHNIQUE: Single frontal view of the chest and 2 views of the abdomen were obtained FINDINGS: There is marked enlargement of the cardiomediastinal silhouette as seen on the prior. Central pulmona ry vascular congestion is mild. Surgical clips are seen throughout the left upper extremity soft tiss ues. There is a very subtle dextroscoliosis of the lumbar spine and the patient positional. No dilated lar ge or small bowel. Surgical clip in the right hemipelvis and phleboliths noted. Osseous structures ar e grossly intact. IMPRESSION: 1. Marked cardiomegaly as seen on the prior. Echocardiogram could assess for functioning presence of pericardial effusion. 2. Mild central pulmonary vascular congestion. 3. Nonobstructive bowel gas pattern.
--- NOTE | 2019-08-14 16:19 | CONS ---
CONSULTATION REASON FOR CONSULT: End-stage renal disease. HISTORY OF PRESENT ILLNESS: Patient is a 29-year-old female with end-stage renal disease, on hemodialysis on a Wednesday, Wednesday, Wednesday schedule. Patient was admitted to the hospital yesterday with complaints of increased shortness of breath and fluid overload. Patient stated that she did have her treatment on Wednesday. However, she has had worsening shortness of breath and fluid gain over the holidays which has not resolved completely yet. She denies any chest pain. She denied fevers or chills, nausea, vomiting or abdominal pain. PAST MEDICAL HISTORY: 1. End-stage renal disease. 2. History of failed renal transplant. 3. Metabolic bone disease. 4. Polycystic kidney disease. 5. Anemia. 6. Cardiomyopathy. 7. Valvular heart disease. 8. Ovarian cysts. PAST SURGICAL HISTORY: 1. -donor renal transplant. 2. PermCath insertion and removal. 3. Left upper arm AV graft. 4. Hernia repair. 5. Transvaginal mesh. 6. [place] teeth extraction. SOCIAL HISTORY: Negative for smoking, drug abuse or alcohol abuse. MEDICATIONS: Medications prior to admission included Procardia, Tylenol, Desyrel, Sensipar, hydralazine, Zofran, Protonix, PhosLo, Ceftin, prednisone, ProAir, Coreg. ALLERGIES: ALLERGIES include HYDRALAZINE, which causes rapid heart rate when given IV. This is mainly intolerance. PHYSICAL EXAMINATION: On examination, patient is currently comfortable, awake. She is complaining of itching. She is seen while on hemodialysis. Blood pressure was 162/87, heart rate 82 per minute. Patient is afebrile. EXAMINATION OF THE HEART: S1 and S2. EXAMINATION OF LUNGS: Bilateral breath sounds are heard. ABDOMEN: Soft, non-tender. Examination of lower extremities shows no evidence of edema. POSTPARTUM NURSE exam is grossly intact. Patient moving all 4 extremities. LABS: Sodium 136, potassium 5.8, chloride 96, BUN 64, creatinine 7.8, hemoglobin 9.5 g/dL. ProBNP 153,000. ASSESSMENT: 1. End-stage renal disease, on hemodialysis on a Wednesday, Wednesday, Wednesday schedule, status post dialysis last night. Patient is being dialyzed again today. 2. Volume overload with some degree of noncompliance over the holidays. Close to 3 L will be removed with dialysis today. Patient is aware of fluid restriction. 3. Hyperkalemia on admission, currently improved post dialysis. Expect further improvement after hemodialysis today. 4. Hypertension, partly volume-sensitive. 5. Chronic kidney disease mineral bone disorder. Continue PhosLo and Sensipar. PLAN: We can try Benadryl to help with the itching so that patient can complete her treatment. If she is not discharged, I will plan on dialysis again tomorrow. MMPASCUAL / IJN: [id number] /
[2019-08-14 18:05] VITALS: RESP 18
[2019-08-15] MEDS: HYDROmorphone 0.5 MG/0.5 ML SYRINGE IVP PRN ×3 (02:43→10:53)
[2019-08-15 06:40] LABS: Calcium 9.3 mg/dL (8.4-10.2); Potassium 4.9 mmol/L (3.5-5.1)
[2019-08-15] MEDS: CARVEDILOL 12.5 MG TAB PO SCH (06:50)
[2019-08-15] MEDS: CALCIUM ACETATE 667 MG TAB PO SCH ×2 (06:50→12:29)
[2019-08-15] MEDS: PANTOPRAZOLE 40 MG TABLET PO SCH (06:50)
[2019-08-15] MEDS ORDERED: CINACALCET 30 MG TAB PO SCH (09:00)
[2019-08-15] MEDS: hydrALAZINE HCL 50 MG TAB PO SCH (09:34)
[2019-08-15] MEDS: NITROGLYCERIN OINT 1 INCH/GM PACKET TOPICAL SCH ×2 (09:34→12:25)
[2019-08-15 12:37] VITALS: BP 134/80; PULSE 75; TEMP 98.1
--- NOTE | 2019-08-15 12:37 | PN ---
PROGRESS NOTE Patient is seen for followup for end-stage renal disease. She was dialyzed 2 days in a row. Patient is feeling better, although she is still complaining of abdominal distention. Blood pressure is also better controlled. Potassium is down to 4.9. PHYSICAL EXAMINATION: On examination, blood pressure is 123/75, heart rate 83 per minute. Patient is afebrile. EXAMINATION OF THE HEART: S1, S2. EXAMINATION OF THE LUNGS: Bilateral breath sounds are heard. Abdomen is soft, nontender, distended. 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 LABS: Labs show sodium 137, potassium 4.9, BUN 44, creatinine 7.0, hemoglobin 9.5 g/dL. ASSESSMENT: 1. End-stage renal disease, on hemodialysis on a Wednesday, Wednesday, Wednesday schedule as outpatient, status post consecutive treatments of hemodialysis, mainly for volume overload and hyperkalemia. We will plan on next treatment tomorrow and if patient is discharged, she can follow up as outpatient for her regular treatment tomorrow. 2. Hyperkalemia in end-stage renal disease and partly associated with dietary noncompliance, currently improved. 3. Hypertension, partly volume sensitive, now improved. PLAN: Hemodialysis in a.m. If patient is discharged, she can follow up as outpatient for her regular treatment tomorrow. MMODL / IJN: [id number] /
--- NOTE | 2019-08-15 13:43 | P.DS ---
Providers Date of admission: 08/13/19 17:51 Attending physician: Maty Bryson MD Consults: 08/13/19 17:46 Consult Physician Stat Consulting Provider: Robin Thompson Consult Reason/Comments: dialysis, hyperkalemia Do you want consulting provider notified?: Yes Primary care physician: Nestor Frias [facility] Course: 29-year-old pleasant female is admitted for shortness of breath and found to have fluid overload patient has multiple similar admissions. Pending patient is Wednesday hemodialysis. Patient has chronic abdominal pain is comparing of the abdominal pain which is fairly severe for which patient is receiving morphine which was switched to Dilaudid because of her renal dysfunction at a low dose and decreased frequency. Patient's abdomen is not tender no rebound rigidity diffuse abdominal pain sharp in nature patient is already on Protonix follow-up and abdominal x-ray although my suspicion is low for any acute abdomen. Patient has normal bowel movements on daily basis. Patient received hemodialysis with which her respiratory status did improve will monitor her overnight. Patient has multiple electrolyte abnormality this including hyperkalemia which resolved after hemodialysis. has a significantly dry skin because of which she is a chain for that we rather use the moisturizing lotion rather than Benadryl. 08/15/2019 Patient still has some abdominal distention fluid overload improved significantly, if cleared bynephrology patient will be discharged today. PHYSICAL EXAMINATION: GENERAL: The patient is alert and oriented x3, not in any acute distress. Well developed, well nourished. HEENT: Pupils are round and equally reacting to light. EOMI. No scleral icterus. No conjunctival pallor. Normocephalic, atraumatic. No pharyngeal erythema. No thyromegaly. CARDIOVASCULAR: S1 and S2 present. No murmurs, rubs, or gallops. PULMONARY: Chest is clear to auscultation, no wheezing or crackles. ABDOMEN: mild abdominal distention nontender. MUSCULOSKELETAL: No joint swelling or deformity. EXTREMITIES: No cyanosis, clubbing, or pedal edema. NEUROLOGICAL: Gross neurological examination did not reveal any focal deficits. SKIN: No rashes. Assessment and Plan Plan: -Volume overload because of heart failure chronic systolic dysfunction with acute exacerbation. patient is presently fairly euvolemic will be discharged today if cleared by nephrology -Abdominal pain nonspecificresolved now abdominal x-ray didn't show any symptoms and abnormality -hypertension -Itching due to dry skin -Congestive heart failure chronic systolic dysfunction with acute exacerbation: Hemodialysis as mentioned above patient doesn't make much urine. 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 end-stage renal disease treated with phosphate binders Patient Condition at Discharge: Stable Plan - Discharge Summary Discharge Rx Participant: No New Discharge Prescriptions: Continue Albuterol Sulfate [Proair Hfa] 2 puff INHALATION RT-Q6H PRN PRN Reason: Shortness Of Breath Calcium Acetate [PhosLo] 1,334 mg PO AC-TID Carvedilol [Coreg] 25 mg PO BID hydrALAZINE HCL [Apresoline] 100 mg PO TID Cinacalcet HCl [Sensipar] 60 mg PO TUTHSA traZODone HCL [Desyrel] 50 mg PO HS PRN PRN Reason: Insomnia Lidocaine-Prilocaine Cream [Emla Cream 2.5%/2.5%] 1 applic TOPICAL DAILY PRN PRN Reason: DIALYSIS NIFEdipine [Procardia XL] 60 mg PO DAILY Acetaminophen Tab [Tylenol] 650 mg PO Q6H PRN PRN Reason: Pain ALPRAZolam [Xanax] 0.25 mg PO HS PRN PRN Reason: Anxiety Pantoprazole [Protonix] 40 mg PO DAILY Ondansetron Odt [Zofran ODT] 8 mg SL Q8H PRN PRN Reason: Nausea Calcium Acetate [PhosLo] 1,334 mg PO BID PRN PRN Reason: SNACKS Discharge Medication List Albuterol Sulfate [Proair Hfa] 2 puff INHALATION RT-Q6H PRN 01/22/16 [History] Calcium Acetate [PhosLo] 1,334 mg PO AC-TID 05/01/18 [History] Carvedilol [Coreg] 25 mg PO BID 05/28/18 [History] hydrALAZINE HCL [Apresoline] 100 mg PO TID 11/16/18 [History] Cinacalcet HCl [Sensipar] 60 mg PO TUTHSA 02/26/19 [History] Lidocaine-Prilocaine Cream [Emla Cream 2.5%/2.5%] 1 applic TOPICAL DAILY PRN 05/24/19 [History] traZODone HCL [Desyrel] 50 mg PO HS PRN 05/24/19 [History] Acetaminophen Tab [Tylenol] 650 mg PO Q6H PRN 06/10/19 [History] NIFEdipine [Procardia XL] 60 mg PO DAILY 06/10/19 [History] ALPRAZolam [Xanax] 0.25 mg PO HS PRN 07/03/19 [History] Pantoprazole [Protonix] 40 mg PO DAILY 07/09/19 [History] Ondansetron Odt [Zofran ODT] 8 mg SL Q8H PRN 07/10/19 [History] Calcium Acetate [PhosLo] 1,334 mg PO BID PRN 08/04/19 [History] Follow up Appointment(s)/Referral(s): Mary Baez MD [Primary Care Provider] - 08/24/19 10:00 am Patient Instructions/Handouts: Heart Failure (DC), Hyperkalemia (DC) Discharge Disposition: HOME SELF-CARE
== END 2019-08-15 15:01 | disposition home or self-care (01) | DRG 291 ==
LOC: EC 15:26 → 3SCARD 17:51
PROVIDERS: ADMIT Internal Medicine; ATTEND Internal Medicine
PROC: 5A1D70Z Performance of Urinary Filtration, Intermittent, Less than 6 Hours Per Day (ICD-10-PCS; principal; 2019-08-13)
DX: I13.2 Hypertensive heart and chronic kidney disease with heart failure and with stage 5 chronic kidney disease, or end stage renal disease (principal); N18.6 End stage renal disease; Q61.3 Polycystic kidney, unspecified; T86.12 Kidney transplant failure; D63.1 Anemia in chronic kidney disease; E87.5 Hyperkalemia; E88.89 Other specified metabolic disorders; Z87.891 Personal history of nicotine dependence; F32.9 Major depressive disorder, single episode, unspecified; F41.9 Anxiety disorder, unspecified; G89.29 Other chronic pain; I16.0 Hypertensive urgency; I34.0 Nonrheumatic mitral (valve) insufficiency; I42.8 Other cardiomyopathies; J45.909 Unspecified asthma, uncomplicated; L85.3 Xerosis cutis; M89.9 Disorder of bone, unspecified; E83.39 Other disorders of phosphorus metabolism; R10.9 Unspecified abdominal pain; M54.5 Low back pain; N92.6 Irregular menstruation, unspecified; Z88.8 Allergy status to other drugs, medicaments and biological substances; Z79.899 Other long term (current) drug therapy; Z91.11 Patient's noncompliance with dietary regimen; Z91.19 Patient's noncompliance with other medical treatment and regimen; Z99.2 Dependence on renal dialysis
CPT/HCPCS: 36415; 71046; 74022; 80048; 80053; 83735; 83880; 84484; 85025; 85027; 85610; 85730; 90935; 93005; 94640; 96365; 96375; 99291

== ENCOUNTER 2019-08-19 15:03 | Observation (INO) | payer BC, MEDICARE, OTHER ==
[2019-08-19] MEDS ORDERED: ONDANSETRON 4 MG/2 ML VIAL IVP STA (15:26)
[2019-08-19] MEDS ORDERED: hydrALAZINE HCL 20 MG/ML 1 ML VIAL IVP STA (15:27)
[2019-08-19] MEDS ORDERED: METOCLOPRAMIDE 5 MG/ML 2 ML VIAL IVP STA (15:29)
[2019-08-19] MEDS ORDERED: LABETALOL 5 MG/ML VIAL MDV IVP STA ×2 (15:29→16:19)
--- NOTE | 2019-08-19 15:35 | ED ---
General Adult HPI - General Chief complaint: Chest Pain Stated complaint: Chest pain Time Seen by Provider: 08/19/19 15:10 Source: patient, RN notes reviewed, old records reviewed Mode of arrival: wheelchair Limitations: no limitations - History of Present Illness Initial comments: This is a 29-year-old female who presents emergency Department with a past medical history significant for renal failure pressure. Patient comes in today because she states last night she started having abdominal pain with some abdominal distention. Patient states she's had this in the past. Patient also states she started having some chest tightness today. Patient again states she's had this in the past. Patient's unable to keep her blood pressure medications down because she vomited them up today. Patient denies any fever chills or cough. Patient denies any diarrhea. Patient states her abdomen is tender diffusely there is no specific area of tenderness. - Related Data Home Medications Medication Instructions Recorded Confirmed Albuterol Sulfate [Proair Hfa] 2 puff INHALATION RT-Q6H PRN 01/22/16 08/19/19 Calcium Acetate [PhosLo] 1,334 mg PO AC-TID 05/01/18 08/19/19 Carvedilol [Coreg] 25 mg PO BID 05/28/18 08/19/19 hydrALAZINE HCL [Apresoline] 100 mg PO TID 11/16/18 08/19/19 Cinacalcet HCl [Sensipar] 60 mg PO TUTHSA 02/26/19 08/19/19 Lidocaine-Prilocaine Cream [Emla 1 applic TOPICAL DAILY PRN 05/24/19 08/19/19 Cream 2.5%/2.5%] traZODone HCL [Desyrel] 50 mg PO HS PRN 05/24/19 08/19/19 Acetaminophen Tab [Tylenol] 650 mg PO Q6H PRN 06/10/19 08/19/19 NIFEdipine [Procardia XL] 60 mg PO DAILY@0530 06/10/19 08/19/19 Pantoprazole [Protonix] 40 mg PO DAILY 07/09/19 08/19/19 Ondansetron Odt [Zofran ODT] 8 mg SL Q8H PRN 07/10/19 08/19/19 Calcium Acetate [PhosLo] 1,334 mg PO BID PRN 08/04/19 08/19/19 ALPRAZolam [Xanax] 0.5 mg PO HS PRN 08/19/19 08/19/19 Allergies Allergy/AdvReac Type Severity Reaction Status Date / Time hydralazine AdvReac Rapid Verified 08/19/19 16:55 Heart Rate WHEN GIVEN THROUGH IV Review of Systems ROS Statement: Those systems with pertinent positive or pertinent negative responses have been documented in the HPI. ROS Other: All systems not noted in ROS Statement are negative. 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 Past Anesthesia/Blood Transfusion Reactions: No Reported Reaction Additional Past Anesthesia/Blood Transfusion Reaction / Comment(s): Pt has received blood in past without reaction. Past Psychological History: Anxiety, Depression Smoking Status: Never smoker Past Alcohol Use History: None Reported Past Drug Use History: Marijuana - Past Family History Father Family Medical History: No Reported History Additional Family Medical History / Comment(s): Father is healthy and is 62 yrs old. Mother Family Medical History: No Reported History Additional Family Medical History / Comment(s): Mother is healthy and is 60 yrs old. General Exam - General Exam Comments Initial Comments: GENERAL: Patient is well-developed and well-nourished. Patient is nontoxic and well- hydrated and is in mild distress. ENT: Neck is soft and supple. No significant lymphadenopathy is noted. Oropharynx is clear. Moist mucous membranes. Neck has full range of motion without eliciting any pain. EYES: The sclera were anicteric and conjunctiva were pink and moist. Extraocular movements were intact and pupils were equal round and reactive to light. Eyelids were unremarkable. PULMONARY: Unlabored respirations. Good breath sounds bilaterally. No audible rales rhonchi or wheezing was noted. CARDIOVASCULAR: There is a regular rate and rhythm without any murmurs gallops or rubs. ABDOMEN: Abdomen is diffusely tender and mildly distended. NEUROLOGIC: Patient is alert and oriented x3. Cranial nerves II through XII are grossly intact. Motor and sensory are also intact. Normal speech, volume and content. Symmetrical smile. MUSCULOSKELETAL: Normal extremities with adequate strength and full range of motion. Bilateral edema of the legs 1+ LYMPHATICS: PSYCHIATRIC: Normal psychiatric evaluation. Limitations: no limitations Course Vital Signs 08/19/19 08/19/19 15:06 16:41 Temperature 98.1 F Pulse Rate 88 81 Respiratory 18 17 Rate Blood Pressure 187/111 175/137 O2 Sat by Pulse 99 100 Oximetry Medical Decision Making - Medical Decision Making EKG shows sinus rhythm at a rate of 84 bpm [place] interval is about 200 QRS is 96 QT interval is 416 QTC is 491. Patient's EKG shows no changes from previous EKG. I begin him to reevaluate the patient she was feeling considerably better after the pain medicine and nausea medicine. Patient was able to tolerate the oral hydralazine. Patient got 2 doses a labetalol. Patient states she no longer had any chest discomfort or tightness. Patient states her abdominal pain was much improved as well. Patient's chest x-ray showed venous congestion. I spoke with Dr. nix he agreed to admit the patient admitted the patient I wrote admitting orders. I consulted nephrology I told Dr. Nix that blood pressure remained high and let him know that he should see the patient tonight. - Lab Data Result diagrams: 08/19/19 15:26 08/19/19 15:26 Lab Results 08/19/19 08/19/19 08/19/19 Range/Units 15:26 15:26 15: WBC 5.6 (3.8-10.6) k/uL RBC 3.31 L (3.80-5.40) m/uL Hgb 9.5 L (11.4-16.0) gm/dL Hct 32.0 L (34.0-46.0) % MCV 96.7 (80.0-100.0) fL MCH 28.8 (25.0-35.0) pg MCHC 29.8 L (31.0-37.0) g/dL RDW 18.4 H (11.5-15.5) % Plt Count 148 L (150-450) k/uL Neutrophils % 70 % Lymphocytes % 14 % Monocytes % 6 % Eosinophils % 5 % Basophils % 2 % Neutrophils # 3.9 (1.3-7.7) k/uL Lymphocytes # 0.8 L (1.0-4.8) k/uL Monocytes # 0.3 (0-1.0) k/uL Eosinophils # 0.3 (0-0.7) k/uL Basophils # 0.1 (0-0.2) k/uL Hypochromasia Moderate Anisocytosis Slight Macrocytosis Slight PT (9.0-12.0) sec INR (<1.2) APTT (22.0-30.0) sec Sodium 136 L (137-145) mmol/L Potassium 5.3 H (3.5-5.1) mmol/L Chloride 96 L (98-107) mmol/L Carbon Dioxide 31 H (22-30) mmol/L Anion Gap 9 mmol/L BUN 47 H (7-17) mg/dL Creatinine 6.86 H (0.52-1.04) mg/dL Est GFR (CKD-EPI)AfAm 9 (>60 ml/min/1.73 sqM) Est GFR (CKD-EPI)NonAf 8 (>60 ml/min/1.73 sqM) Glucose 84 (74-99) mg/dL Calcium 9.9 (8.4-10.2) mg/dL Magnesium 2.0 (1.6-2.3) mg/dL Total Bilirubin 1.2 (0.2-1.3) mg/dL AST 43 H (14-36) U/L ALT 33 (4-34) U/L Alkaline Phosphatase 69 (38-126) U/L Troponin I (0.000-0.034) ng/mL NT-Pro-B Natriuret Pep 229353 pg/mL Total Protein 7.5 (6.3-8.2) g/dL Albumin 4.1 (3.5-5.0) g/dL Amylase 130 H (30-110) U/L Lipase 160 (23-300) U/L 01/18/20 01/18/20 Range/Units 15:26 15:26 WBC (3.8-10.6) k/uL RBC (3.80-5.40) m/uL Hgb (11.4-16.0) gm/dL Hct (34.0-46.0) % MCV (80.0-100.0) fL MCH (25.0-35.0) pg MCHC (31.0-37.0) g/dL RDW (11.5-15.5) % Plt Count (150-450) k/uL Neutrophils % % Lymphocytes % % Monocytes % % Eosinophils % % Basophils % % Neutrophils # (1.3-7.7) k/uL Lymphocytes # (1.0-4.8) k/uL Monocytes # (0-1.0) k/uL Eosinophils # (0-0.7) k/uL Basophils # (0-0.2) k/uL Hypochromasia Anisocytosis Macrocytosis PT 13.8 H (9.0-12.0) sec INR 1.4 H (<1.2) APTT 26.0 (22.0-30.0) sec Sodium (137-145) mmol/L Potassium (3.5-5.1) mmol/L Chloride (98-107) mmol/L Carbon Dioxide (22-30) mmol/L Anion Gap mmol/L BUN (7-17) mg/dL Creatinine (0.52-1.04) mg/dL Est GFR (CKD-EPI)AfAm (>60 ml/min/1.73 sqM) Est GFR (CKD-EPI)NonAf (>60 ml/min/1.73 sqM) Glucose (74-99) mg/dL Calcium (8.4-10.2) mg/dL Magnesium (1.6-2.3) mg/dL Total Bilirubin (0.2-1.3) mg/dL AST (14-36) U/L ALT (4-34) U/L Alkaline Phosphatase (38-126) U/L Troponin I 0.050 H* (0.000-0.034) ng/mL NT-Pro-B Natriuret Pep pg/mL Total Protein (6.3-8.2) g/dL Albumin (3.5-5.0) g/dL Amylase (30-110) U/L Lipase (23-300) U/L Disposition Clinical Impression: Pulmonary venous congestion, Hypertensive urgency Disposition: ADMITTED IP TO THIS HOSP Time of Disposition: 16:41
[2019-08-19] MEDS ORDERED: HYDROmorphone 0.5 MG/0.5 ML SYRINGE IVP STA ×2 (15:36→21:05)
[2019-08-19 15:47] LABS: Anisocytosis Slight; Basophils # (A) 0.1 k/uL (0-0.2); Basophils % (A) 2 %; Eosinophils # (A) 0.3 k/uL (0-0.7); Eosinophils % (A) 5 %; HGB 9.5 gm/dL (11.4-16.0); Hypochromasia Moderate; Lymphocytes # (A) 0.8 k/uL (1.0-4.8); Lymphocytes % (A) 14 %; MCH 28.8 pg (25.0-35.0); MCHC 29.8 g/dL (31.0-37.0); MCV 96.7 fL (80.0-100.0); Macrocytosis Slight; Mean Platelet Volume 8.9; Monocytes # (A) 0.3 k/uL (0-1.0); Monocytes % (A) 6 %; Neutrophils # (A) 3.9 k/uL (1.3-7.7); Neutrophils % (A) 70 %; Platelet Count 148 k/uL (150-450); RBC 3.31 m/uL (3.80-5.40); RDW 18.4 % (11.5-15.5); WBC 5.6 k/uL (3.8-10.6)
[2019-08-19 16:01] LABS: INR 1.4 (<1.2); Prothrombin Time 13.8 sec (9.0-12.0)
[2019-08-19 16:06] LABS: Albumin 4.1 g/dL (3.5-5.0); Calcium 9.9 mg/dL (8.4-10.2); Potassium 5.3 mmol/L (3.5-5.1); Total Bilirubin 1.2 mg/dL (0.2-1.3); Total Protein 7.5 g/dL (6.3-8.2)
--- NOTE | 2019-08-19 16:15 | XR ---
EXAMINATION TYPE: XR chest 2V DATE OF EXAM: 08/19/2019 COMPARISON: Chest x-ray 08/13/2019 HISTORY: Chest pain TECHNIQUE: Frontal and lateral views of the chest are obtained. FINDINGS: The heart is markedly enlarged. Interstitium is increased. There is no evident pneumothora x or pleural effusion. There are overlying cardiac leads. IMPRESSION: Marked cardiomegaly. Correlate for congestive heart failure, pulmonary venous hypertensi on and interstitial edema.
[2019-08-19] MEDS ORDERED: hydrALAZINE HCL 50 MG TAB PO STA (16:20)
[2019-08-19] MEDS ORDERED: LORazepam 2 MG/ML INJ IV STA (16:43)
[2019-08-19] MEDS ORDERED: ENALAPRILAT 1.25 MG/ML 1 ML VIAL IVP STA ×2 (16:43→18:20)
[2019-08-19] MEDS: CARVEDILOL 12.5 MG TAB PO SCH (18:44)
[2019-08-19] MEDS ORDERED: NIFEdipine XL 30 MG TAB.ER.24 PO STA (19:53)
[2019-08-19] MEDS ORDERED: HYDROcodone/APAP 10-325MG 1 EACH TAB PO ONE (19:59)
[2019-08-19] MEDS: hydrALAZINE HCL 50 MG TAB PO SCH (22:18)
[2019-08-19] MEDS: ALPRAZolam 0.25 MG TAB PO PRN (22:18)
[2019-08-20] MEDS ORDERED: HYDROmorphone 0.5 MG/0.5 ML SYRINGE IVP STA (02:31)
[2019-08-20] MEDS: CARVEDILOL 12.5 MG TAB PO SCH ×2 (06:58→16:50)
[2019-08-20] MEDS: hydrALAZINE HCL 50 MG TAB PO SCH ×3 (09:32→20:51)
[2019-08-20] MEDS: HYDROmorphone 0.5 MG/0.5 ML SYRINGE IVP PRN ×3 (11:02→19:52)
--- NOTE | 2019-08-20 11:07 | P.NPCON ---
History of Present Illness - Reason for Consult Consult date: 08/20/19 end stage renal disease - Chief Complaint ESRD, coming in with abdominal pain - History of Present Illness This is a 29-year-old female known with ESRD on dialysis Wednesday . Patient comes in yesterday because she states last night she started having abdominal pain with some abdominal distention. Patient states she's had this in the past. Patient also states she started having some chest tightness today. Patient again states she's had this in the past. Patient's unable to keep her blood pressure medications down because she vomited them up today. Patient denies any fever chills or cough. Patient denies any diarrhea. Patient states her abdomen is tender diffusely there is no specific area of tenderness. 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 She is supposedly 10 pounds over her target weight per patient. No fever chills cough no nausea vomiting. She has poor appetite Past Medical History Past Medical History: Asthma, Heart Failure, Hypertension, Renal Disease Additional Past Medical History / Comment(s): ESRD d/t being born with polycystic kidney disease, failed kidney transplant, hemodialysis (M,W,Fr), metabolic bone disease, chronic anemia, nonischemic myopathy with EF 35-40%/mild to moderate mitral valve regurgitation, vitamin D deficiency, chronic low back pain, ovarian cysts, irregular menses, History of Any Multi-Drug Resistant Organisms: None Reported Past Surgical History: Heart Catheterization, Hernia Repair Additional Past Surgical History / Comment(s): 06/14/18 cardiac cath at [facility] to check coronary pressures, 11/15/09 Failed kidney transplant R pelvis, dialysis catheter in and out, current L upper arm AVG, supra pubic hernia repair, transvaginal mesh, wisdom teeth extraction with anesthesia. Past Anesthesia/Blood Transfusion Reactions: No Reported Reaction Additional Past Anesthesia/Blood Transfusion Reaction / Comment(s): Pt has received blood in past without reaction. Past Psychological History: Anxiety, Depression Additional Psychological History / Comment(s): Pt resides with family. She is independent. She drives. She is disabled. She states she has anxiety and depression but no suicidal thoughts/ idealations or plans. Smoking Status: Never smoker Past Alcohol Use History: None Reported Additional Past Alcohol Use History / Comment(s): Pt states she started smoking socially as a teen and quit smoking in 2016. Past Drug Use History: Marijuana Additional Drug Use History / Comment(s): Couple times a week. - Past Family History Father Family Medical History: No Reported History Additional Family Medical History / Comment(s): Father is healthy and is 62 yrs old. Mother Family Medical History: No Reported History Additional Family Medical History / Comment(s): Mother is healthy and is 60 yrs old. Medications and Allergies Home Medications Medication Instructions Recorded Confirmed Type Albuterol Sulfate [Proair Hfa] 2 puff INHALATION RT-Q6H PRN 01/22/16 08/19/19 History Calcium Acetate [PhosLo] 1,334 mg PO AC-TID 05/01/18 08/19/19 History Carvedilol [Coreg] 25 mg PO BID 05/28/18 08/19/19 History hydrALAZINE HCL [Apresoline] 100 mg PO TID 11/16/18 08/19/19 History Cinacalcet HCl [Sensipar] 60 mg PO TUTHSA 02/26/19 08/19/19 History Lidocaine-Prilocaine Cream [Emla 1 applic TOPICAL DAILY PRN 05/24/19 08/19/19 History Cream 2.5%/2.5%] traZODone HCL [Desyrel] 50 mg PO HS PRN 05/24/19 08/19/19 History Acetaminophen Tab [Tylenol] 650 mg PO Q6H PRN 06/10/19 08/19/19 History NIFEdipine [Procardia XL] 60 mg PO DAILY@0530 06/10/19 08/19/19 History Pantoprazole [Protonix] 40 mg PO DAILY 07/09/19 08/19/19 History Ondansetron Odt [Zofran ODT] 8 mg SL Q8H PRN 07/10/19 08/19/19 History Calcium Acetate [PhosLo] 1,334 mg PO BID PRN 08/04/19 08/19/19 History ALPRAZolam [Xanax] 0.5 mg PO HS PRN 08/19/19 08/19/19 History Allergies Allergy/AdvReac Type Severity Reaction Status Date / Time hydralazine AdvReac Rapid Verified 08/19/19 16:55 Heart Rate WHEN GIVEN THROUGH IV Physical Exam Vitals: Vital Signs Temp Pulse Pulse Resp BP BP Pulse Ox 08/20/19 08:00 97.4 F L 82 19 154/95 99 08/20/19 04:00 98.2 F 87 16 154/98 97 08/19/19 23:57 168/110 08/19/19 23:21 86 18 08/19/19 23:19 98.0 F 86 18 168/112 100 08/19/19 21:14 97.9 F 86 18 181/114 99 08/19/19 20:00 97.9 F 86 18 181/114 99 08/19/19 18:46 88 18 172/125 08/19/19 18:13 84 18 176/129 97 08/19/19 17:15 89 18 133/89 97 08/19/19 16:41 81 17 175/137 100 08/19/19 15:06 98.1 F 88 18 187/111 99 Intake and Output 08/19/19 08/20/19 08/20/19 22:59 06:59 14:59 Intake Total 300 120 Balance 300 120 Intake: Oral 300 120 Other: Weight 62 kg 59.5 kg On examination she is awake alert oriented She is on room air and mildly short of breath. HEENT exam no JVP neck is supple no facial asymmetry Lungs are clear to auscultation percussion good air entry bilaterally Heart sounds are unremarkable no murmur rub gallop in spite of echo findings of severe valvular disease Abdomen is slightly protuberant no clinical ascites noted Extremity exam was no edema Neurologically awake alert oriented. Results - Lab Results Most recent lab results Calcium 9.9 mg/dL (8.4-10.2) 08/19/19 15:26 Magnesium 2.0 mg/dL (1.6-2.3) 08/19/19 15:26 08/19/19 15:26 08/19/19 15:26 Assessment and Plan Assessment: Impression 1. ESRD on dialysis Wednesday etiology is polycystic kidney disease. 2. Admitted with shortness of breath abdominal discomfort. Chest x-ray suggestive of mild CHF with severe cardiomegaly. Cause of abdominal pain not clear. If she is missing dialysis it could be explained on the basis of uremic peritonitis. 3. Frequent hospitalization 4. Cardiopathy myopathy ejection fraction is 40-45% on the last cardiac echocardiogram 08/05/2019 5. Anemia of ESRD was 9.5 Recommendation 1. Will dialyze her today aiming to ultrafiltrate about 3-4 L off for 2 hours pure ultrafiltration. If she is asymptomatic as best she can be discharged. A abdominal ultrasound May may be helpful if the pain in her abdomen continued
[2019-08-20] MEDS ORDERED: ACETAMINOPHEN TAB 325 MG TAB PO PRN (12:09)
[2019-08-20] MEDS ORDERED: ALPRAZolam 0.5 MG TAB PO PRN (12:09)
[2019-08-20] MEDS ORDERED: ONDANSETRON ODT 8 MG TAB.RAPDIS PO PRN (12:09)
[2019-08-20] MEDS ORDERED: traZODone HCL 50 MG TAB PO PRN (12:09)
[2019-08-20] MEDS ORDERED: ALBUTEROL NEBULIZED 2.5 MG/3 ML INHALATION PRN (12:09)
[2019-08-20] MEDS ORDERED: LIDOCAINE-PRILOCAINE 2.5-2.5% CREAM 5 GM TUBE TOPICAL PRN (12:09)
[2019-08-20] MEDS ORDERED: CALCIUM ACETATE 667 MG TAB PO PRN (12:09)
--- NOTE | 2019-08-20 12:17 | P.HPIM ---
History of Present Illness 29-year-old female came in with the complaints of shortness of breath abdominal pain and abdominal distention patient does have history of nonischemic adenopathy if of 45-50% patient does haven't seen her disease has frequent hospitalizations for this and patient states that her abdomen is distended but although her abdomen is is nontender there may be mild ascites but the my not be a candidate for any paracentesis. Patient probably will undergo dialysis today after that can be discharged. Patient did miss set of any of her dialysis. Patient's a method of the exact same complaint because of the that I'm not dictating her whole history please refer to documentation from ER in nephrology for further details patient has pauses cystic kidney disease and end-stage renal disease. Patient blood pressure is high. Most probably after dialysis patient will feel like going home after that that time. We will discharge the patient patient does have abdominal cramping which is chronic. There is some pulmonary edema on the chest x-ray. Review of Systems REVIEW OF SYSTEMS: CONSTITUTIONAL: No fever, no malaise, no fatigue. HEENT: No recent visual problems or hearing problems. Denied any sore throat. CARDIOVASCULAR: No chest pain, orthopnea, PND, no palpitations, no syncope. PULMONARY: no hemoptysis. GASTROINTESTINAL: No diarrhea, no nausea, no vomiting. NEUROLOGICAL: No headaches, no weakness, no numbness. HEMATOLOGICAL: Denies any bleeding or petechiae. GENITOURINARY: Denies any burning micturition, frequency, or urgency. MUSCULOSKELETAL/RHEUMATOLOGICAL: Denies any joint pain, swelling, or any muscle pain. ENDOCRINE: Denies any polyuria or polydipsia. The rest of the 14-point review of systems is negative. 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 Past Anesthesia/Blood Transfusion Reactions: No Reported Reaction Additional Past Anesthesia/Blood Transfusion Reaction / Comment(s): Pt has received blood in past without reaction. Past Psychological History: Anxiety, Depression Additional Psychological History / Comment(s): Pt resides with family. She is independent. She drives. She is disabled. She states she has anxiety and depression but no suicidal thoughts/ idealations or plans. Smoking Status: Never smoker Past Alcohol Use History: None Reported Additional Past Alcohol Use History / Comment(s): Pt states she started smoking socially as a teen and quit smoking in 2015. Past Drug Use History: Marijuana Additional Drug Use History / Comment(s): Couple times a week. - Past Family History Father Family Medical History: No Reported History Additional Family Medical History / Comment(s): Father is healthy and is 62 yrs old. Mother Family Medical History: No Reported History Additional Family Medical History / Comment(s): Mother is healthy and is 60 yrs old. Medications and Allergies Home Medications Medication Instructions Recorded Confirmed Type Albuterol Sulfate [Proair Hfa] 2 puff INHALATION RT-Q6H PRN 01/22/16 08/19/19 History Calcium Acetate [PhosLo] 1,334 mg PO AC-TID 05/01/18 08/19/19 History Carvedilol [Coreg] 25 mg PO BID 05/28/18 08/19/19 History hydrALAZINE HCL [Apresoline] 100 mg PO TID 11/16/18 08/19/19 History Cinacalcet HCl [Sensipar] 60 mg PO TUTHSA 02/26/19 08/19/19 History Lidocaine-Prilocaine Cream [Emla 1 applic TOPICAL DAILY PRN 05/24/19 08/19/19 H istory Cream 2.5%/2.5%] traZODone HCL [Desyrel] 50 mg PO HS PRN 05/24/19 08/19/19 History Acetaminophen Tab [Tylenol] 650 mg PO Q6H PRN 06/10/19 08/19/19 History NIFEdipine [Procardia XL] 60 mg PO DAILY@0530 06/10/19 08/19/19 History Pantoprazole [Protonix] 40 mg PO DAILY 07/09/19 08/19/19 History Ondansetron Odt [Zofran ODT] 8 mg SL Q8H PRN 07/10/19 08/19/19 History Calcium Acetate [PhosLo] 1,334 mg PO BID PRN 08/04/19 08/19/19 History ALPRAZolam [Xanax] 0.5 mg PO HS PRN 08/19/19 08/19/19 History Allergies Allergy/AdvReac Type Severity Reaction Status Date / Time hydralazine AdvReac Rapid Verified 08/19/19 16:55 Heart Rate WHEN GIVEN THROUGH IV Physical Exam Vitals: Vital Signs Temp Pulse Pulse Resp BP BP Pulse Ox 08/20/19 11:54 97.6 F 72 14 128/80 96 08/20/19 08:00 97.4 F L 82 19 154/95 99 08/20/19 04:00 98.2 F 87 16 154/98 97 08/19/19 23:57 168/110 08/19/19 23:21 86 18 08/19/19 23:19 98.0 F 86 18 168/112 100 08/19/19 21:14 97.9 F 86 18 181/114 99 08/19/19 20:00 97.9 F 86 18 181/114 99 08/19/19 18:46 88 18 172/125 08/19/19 18:13 84 18 176/129 97 08/19/19 17:15 89 18 133/89 97 08/19/19 16:41 81 17 175/137 100 08/19/19 15:06 98.1 F 88 18 187/111 99 Intake and Output 08/19/19 08/20/19 08/20/19 22:59 06:59 14:59 Intake Total 300 120 Balance 300 120 Intake: Oral 300 120 Other: Weight 62 kg 59.5 kg PHYSICAL EXAMINATION: GENERAL: The patient is alert and oriented x3, not in any acute distress. Well developed, well nourished. HEENT: Pupils are round and equally reacting to light. EOMI. No scleral icterus. No conjunctival pallor. Normocephalic, atraumatic. No pharyngeal erythema. No thyromegaly. CARDIOVASCULAR: S1 and S2 present. No murmurs, rubs, or gallops. PULMONARY: Chest is clear to auscultation, no wheezing or crackles. ABDOMEN: Soft, nontender, mildly distended abdomen but there is no significant fluid through, normoactive bowel sounds. No palpable organomegaly. MUSCULOSKELETAL: No joint swelling or deformity. EXTREMITIES: No cyanosis, clubbing, or pedal edema. NEUROLOGICAL: Gross neurological examination did not reveal any focal deficits. SKIN: No rashes. Results CBC & Chem 7: 08/19/19 15:26 08/19/19 15:26 Labs: Abnormal Lab Results - Last 24 Hours (Table) 08/19/19 08/19/19 08/19/19 Range/Units 15:26 15: 15: RBC 3.31 L (3.80-5.40) m/uL Hgb 9.5 L (11.4-16.0) gm/dL Hct 32.0 L (34.0-46.0) % MCHC 29.8 L (31.0-37.0) g/dL RDW 18.4 H (11.5-15.5) % Plt Count 148 L (150-450) k/uL Lymphocytes # 0.8 L (1.0-4.8) k/uL PT 13.8 H (9.0-12.0) sec INR 1.4 H (<1.2) Sodium 136 L (137-145) mmol/L Potassium 5.3 H (3.5-5.1) mmol/L Chloride 96 L (98-107) mmol/L Carbon Dioxide 31 H (22-30) mmol/L BUN 47 H (7-17) mg/dL Creatinine 6.86 H (0.52-1.04) mg/dL AST 43 H (14-36) U/L Troponin I (0.000-0.034) ng/mL Amylase 130 H (30-110) U/L 08/19/19 Range/Units 15:26 RBC (3.80-5.40) m/uL Hgb (11.4-16.0) gm/dL Hct (34.0-46.0) % MCHC (31.0-37.0) g/dL RDW (11.5-15.5) % Plt Count (150-450) k/uL Lymphocytes # (1.0-4.8) k/uL PT (9.0-12.0) sec INR (<1.2) Sodium (137-145) mmol/L Potassium (3.5-5.1) mmol/L Chloride (98-107) mmol/L Carbon Dioxide (22-30) mmol/L BUN (7-17) mg/dL Creatinine (0.52-1.04) mg/dL AST (14-36) U/L Troponin I 0.050 H* (0.000-0.034) ng/mL Amylase (30-110) U/L Thrombosis Risk Factor Assmnt - Choose All That Apply Any of the Below Risk Factors Present?: Yes Each Factor Represents 1 point: Heart failure (<1month) Other Risk Factors: No Other congenital or acquired thrombophilia - If yes, enter type in comment: No Thrombosis Risk Factor Assessment Total Risk Factor Score: 1 Thrombosis Risk Factor Assessment Level: Low Risk Assessment and Plan Plan: Shortness of breath secondary to end-stage renal disease and heart failure chronic systolic dysfunction with acute exacerbation. Patient probably will undergo hemodialysis today after that if she is feeling okay patient will be discharged today -Estrogen disease secondary to polycystic kidney disease patient has failed renal transplant patient will be can you done a phosphate binders -Congestive heart failure chronic systolic dysfunction with acute exacerbation -Nonspecific chronic abdominal pain no further testing or intervention at this time -Accelerated and uncontrolled hypertension patient will be resumed on her home medication patient has chronically elevated blood pressures. 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
--- NOTE | 2019-08-20 12:17 | P.DS ---
Providers Date of admission: 08/19/19 16:41 Attending physician: Rhys Nix MD Consults: 08/19/19 16:41 Consult Physician Urgent Consulting Provider: Korin Martins Consult Reason/Comments: Pulmonary venous congestion, renal failure Do you want consulting provider notified?: Yes Primary care physician: [facility] Course: Please refer to my HPI for further details Plan - Discharge Summary Discharge Rx Participant: No New Discharge Prescriptions: No Action Albuterol Sulfate [Proair Hfa] 2 puff INHALATION RT-Q6H PRN PRN Reason: Shortness Of Breath Calcium Acetate [PhosLo] 1,334 mg PO AC-TID Carvedilol [Coreg] 25 mg PO BID hydrALAZINE HCL [Apresoline] 100 mg PO TID Cinacalcet HCl [Sensipar] 60 mg PO TUTHSA traZODone HCL [Desyrel] 50 mg PO HS PRN PRN Reason: Insomnia Lidocaine-Prilocaine Cream [Emla Cream 2.5%/2.5%] 1 applic TOPICAL DAILY PRN PRN Reason: DIALYSIS NIFEdipine [Procardia XL] 60 mg PO DAILY@0530 Acetaminophen Tab [Tylenol] 650 mg PO Q6H PRN PRN Reason: Pain Pantoprazole [Protonix] 40 mg PO DAILY Ondansetron Odt [Zofran ODT] 8 mg SL Q8H PRN PRN Reason: Nausea Calcium Acetate [PhosLo] 1,334 mg PO BID PRN PRN Reason: SNACKS ALPRAZolam [Xanax] 0.5 mg PO HS PRN PRN Reason: Insomnia Discharge Medication List Albuterol Sulfate [Proair Hfa] 2 puff INHALATION RT-Q6H PRN 01/22/16 [History] Calcium Acetate [PhosLo] 1,334 mg PO AC-TID 05/01/18 [History] Carvedilol [Coreg] 25 mg PO BID 05/28/18 [History] hydrALAZINE HCL [Apresoline] 100 mg PO TID 11/16/18 [History] Cinacalcet HCl [Sensipar] 60 mg PO TUTHSA 02/26/19 [History] Lidocaine-Prilocaine Cream [Emla Cream 2.5%/2.5%] 1 applic TOPICAL DAILY PRN 05/24/19 [History] traZODone HCL [Desyrel] 50 mg PO HS PRN 05/24/19 [History] Acetaminophen Tab [Tylenol] 650 mg PO Q6H PRN 06/10/19 [History] NIFEdipine [Procardia XL] 60 mg PO DAILY@0530 06/10/19 [History] Pantoprazole [Protonix] 40 mg PO DAILY 07/09/19 [History] Ondansetron Odt [Zofran ODT] 8 mg SL Q8H PRN 07/10/19 [History] Calcium Acetate [PhosLo] 1,334 mg PO BID PRN 08/04/19 [History] ALPRAZolam [Xanax] 0.5 mg PO HS PRN 08/19/19 [History] Follow up Appointment(s)/Referral(s): Mary Baez MD [Primary Care Provider] - 3 Days
[2019-08-20] MEDS: CALCIUM ACETATE 667 MG TAB PO SCH ×2 (13:51→16:50)
[2019-08-20] MEDS ORDERED: diphenhydrAMINE 50 MG/ML 1 ML VIAL ONE (14:21)
[2019-08-20] MEDS: diphenhydrAMINE 50 MG/ML 1 ML VIAL IVP ONE (14:24)
[2019-08-21] MEDS: HYDROmorphone 0.5 MG/0.5 ML SYRINGE IVP PRN ×4 (00:05→13:22)
[2019-08-21] MEDS: ALPRAZolam 0.25 MG TAB PO PRN (04:16)
[2019-08-21] MEDS: CARVEDILOL 12.5 MG TAB PO SCH (08:53)
[2019-08-21] MEDS: hydrALAZINE HCL 50 MG TAB PO SCH ×2 (08:54→16:41)
[2019-08-21] MEDS ORDERED: PANTOPRAZOLE 40 MG TABLET PO SCH (09:00)
[2019-08-21] MEDS: CALCIUM ACETATE 667 MG TAB PO SCH ×2 (09:34→13:22)
--- NOTE | 2019-08-21 10:45 | P.DS ---
Providers Date of admission: 08/19/19 16:41 Expected date of discharge: 08/21/19 Attending physician: Rhys Nix MD Consults: 08/19/19 16:41 Consult Physician Urgent Consulting Provider: Korin Martins Consult Reason/Comments: Pulmonary venous congestion, renal failure Do you want consulting provider notified?: Yes Primary care physician: Nestor Hernandez [facility] Course: Final Diagnosis -Shortness of breath secondary to end-stage renal disease and heart failure chronic systolic dysfunction with acute exacerbation -Estrogen disease secondary to polycystic kidney disease -Congestive heart failure chronic systolic dysfunction with acute exacerbation -Nonspecific chronic abdominal pain -Accelerated and uncontrolled hypertension -Hyperkalemia secondary to renal failure -Nonischemic cardiopathy -Anemia of chronic kidney disease patient has history of for polycystic kidney and failed renal transplant in the past -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 Patient is receiving hemodialysis today prior to discharge. Total time taken is 35 minutes. History of present illness 29-year-old female came in with the complaints of shortness of breath abdominal pain and abdominal distention patient does have history of nonischemic adenopathy if of 45-50% patient does haven't seen her disease has frequent hospitalizations for this and patient states that her abdomen is distended but although her abdomen is is nontender there may be mild ascites but the my not be a candidate for any paracentesis. Patient probably will undergo dialysis today after that can be discharged. Patient did miss set of any of her dialysis. Patient's a method of the exact same complaint because of the that I'm not dictating her whole history please refer to documentation from ER in nephrology for further details patient has pauses cystic kidney disease and end-stage renal disease. Patient blood pressure is high. Most probably after dialysis patient will feel like going home after that that time. We will discharge the patient patient does have abdominal cramping which is chronic. There is some pulmonary edema on the chest x-ray. 08/21/2019 Patient received dialysis yesterday and is awaiting to receive dialysis today to continue with her normal schedule of Wednesday/Wednesday/Wednesday. Patient states no acute overnight issues. Patient is lying in bed and appears to be in no acute distress. Per camera technician they will be to her room in approximately 2 hours. Patient will be discharged after dialysis today. Currently patient denies any chest pain, shortness of breath, or palpitations. Patient is afebrile. Patient denies any nausea or vomiting and has been tolerating diet. On exam vital signs are stable. Temp is 98F, pulse is 81, respirations are 16, blood pressure is 167/93, oxygen saturation is 100% on room air. Cardio S1, S2 are present. Respiratory system shows clear to auscultation. Abdomen is soft and nontender. Nervous system shows no focal deficits. Please refer to medication reconciliation sheet for a list of medications. Patient Condition at Discharge: Stable Plan - Discharge Summary Discharge Rx Participant: No New Discharge Prescriptions: No Action Albuterol Sulfate [Proair Hfa] 2 puff INHALATION RT-Q6H PRN PRN Reason: Shortness Of Breath Calcium Acetate [PhosLo] 1,334 mg PO AC-TID Carvedilol [Coreg] 25 mg PO BID hydrALAZINE HCL [Apresoline] 100 mg PO TID Cinacalcet HCl [Sensipar] 60 mg PO TUTHSA traZODone HCL [Desyrel] 50 mg PO HS PRN PRN Reason: Insomnia Lidocaine-Prilocaine Cream [Emla Cream 2.5%/2.5%] 1 applic TOPICAL DAILY PRN PRN Reason: DIALYSIS NIFEdipine [Procardia XL] 60 mg PO DAILY@0530 Acetaminophen Tab [Tylenol] 650 mg PO Q6H PRN PRN Reason: Pain Pantoprazole [Protonix] 40 mg PO DAILY Ondansetron Odt [Zofran ODT] 8 mg SL Q8H PRN PRN Reason: Nausea Calcium Acetate [PhosLo] 1,334 mg PO BID PRN PRN Reason: SNACKS ALPRAZolam [Xanax] 0.5 mg PO HS PRN PRN Reason: Insomnia Discharge Medication List Albuterol Sulfate [Proair Hfa] 2 puff INHALATION RT-Q6H PRN 01/22/16 [History] Calcium Acetate [PhosLo] 1,334 mg PO AC-TID 05/01/18 [History] Carvedilol [Coreg] 25 mg PO BID 05/28/18 [History] hydrALAZINE HCL [Apresoline] 100 mg PO TID 11/16/18 [History] Cinacalcet HCl [Sensipar] 60 mg PO TUTHSA 02/26/19 [History] Lidocaine-Prilocaine Cream [Emla Cream 2.5%/2.5%] 1 applic TOPICAL DAILY PRN 05/24/19 [History] traZODone HCL [Desyrel] 50 mg PO HS PRN 05/24/19 [History] Acetaminophen Tab [Tylenol] 650 mg PO Q6H PRN 06/10/19 [History] NIFEdipine [Procardia XL] 60 mg PO DAILY@0530 06/10/19 [History] Pantoprazole [Protonix] 40 mg PO DAILY 07/09/19 [History] Ondansetron Odt [Zofran ODT] 8 mg SL Q8H PRN 07/10/19 [History] Calcium Acetate [PhosLo] 1,334 mg PO BID PRN 08/04/19 [History] ALPRAZolam [Xanax] 0.5 mg PO HS PRN 08/19/19 [History] Follow up Appointment(s)/Referral(s): Mary Baez MD [Primary Care Provider] - 3 Days (Please follow up with primary care provider next week. ) Patient Instructions/Handouts: Hypertensive Crisis (DC) Discharge Disposition: HOME SELF-CARE
--- NOTE | 2019-08-21 11:27 | P.PN ---
Subjective Patient is seen in follow-up for end-stage renal disease. She is maintained on hemodialysis on Wednesday schedule. Feels better after dialysis yesterday. No active chest pain or shortness of breath at this time. Vital signs are stable. General: The patient appeared well nourished and normally developed. HEENT: Head exam is unremarkable. Neck is without jugular venous distension. LUNGS: Lungs are clear to auscultation and percussion. Breath sounds decreased. HEART: Rate and Rhythm are regular. First and second heart sounds normal. No murmurs, rubs or gallops. ABDOMEN: Abdominal exam reveals normal bowel sounds. Non-tender and non- distended. No evidence of peritonitis. EXTREMITITES: Trace edema. Objective - Vital Signs Vital signs: Vital Signs Temp 98.0 F 08/21/19 05:00 Pulse 81 08/21/19 05:00 Resp 16 08/21/19 05:00 BP 167/93 08/21/19 05:00 Pulse Ox 100 08/21/19 05:00 Intake & Output 08/20/19 08/21/19 08/21/19 18:59 06:59 18:59 Intake Total 300 590 Output Total 4000 Balance -3700 590 Intake: Oral 300 590 Output: Hemodialysis 4000 - Labs CBC & Chem 7: 08/19/19 15:26 08/19/19 15:26 Assessment and Plan Plan: Assessment: 1. End-stage renal disease maintained on hemodialysis on Wednesday schedule. 2. Volume overload. Improved. 3. Hypertension with chronic kidney disease. 4. Chronic hyperkalemia secondary to chronic kidney disease. 5. Acute on chronic systolic CHF with ejection fraction of 40-45% with severe tricuspid regurgitation and pulmonary hypertension. 6. 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 Plan: Hemodialysis today. Potential discharge after dialysis.
[2019-08-21] MEDS ORDERED: diphenhydrAMINE 50 MG/ML 1 ML VIAL IVP STA ×2 (13:15→15:08)
[2019-08-21] MEDS: diphenhydrAMINE 50 MG/ML 1 ML VIAL IVP ONE (13:22)
[2019-08-21 16:39] VITALS: BP 141/93; PULSE 78; RESP 20; TEMP 98
[2019-08-22] MEDS ORDERED: CINACALCET 30 MG TAB PO SCH (09:00)
== END 2019-08-21 17:00 | disposition home or self-care (01) ==
LOC: EC 15:03 → INTOOBSV 16:41 → 3SCARD 16:41 → 5NMEDONC 08-20 18:50 → UNDODISIN 08-21 17:00
PROVIDERS: ADMIT Internal Medicine; ATTEND Internal Medicine
DX: I13.2 Hypertensive heart and chronic kidney disease with heart failure and with stage 5 chronic kidney disease, or end stage renal disease (principal); N18.6 End stage renal disease; I50.23 Acute on chronic systolic (congestive) heart failure; E34.8 Other specified endocrine disorders; Q61.3 Polycystic kidney, unspecified; I27.20 Pulmonary hypertension, unspecified; G89.29 Other chronic pain; R10.9 Unspecified abdominal pain; E87.5 Hyperkalemia; I42.8 Other cardiomyopathies; D63.1 Anemia in chronic kidney disease; T86.12 Kidney transplant failure; N25.0 Renal osteodystrophy; E83.39 Other disorders of phosphorus metabolism; J45.909 Unspecified asthma, uncomplicated; I08.1 Rheumatic disorders of both mitral and tricuspid valves; E55.9 Vitamin D deficiency, unspecified; M54.5 Low back pain; F41.9 Anxiety disorder, unspecified; F32.9 Major depressive disorder, single episode, unspecified; Z79.899 Other long term (current) drug therapy; Z88.8 Allergy status to other drugs, medicaments and biological substances; Z99.2 Dependence on renal dialysis; Z87.42 Personal history of other diseases of the female genital tract; Z98.890 Other specified postprocedural states; Z86.2 Personal history of diseases of the blood and blood-forming organs and certain disorders involving the immune mechanism; Z87.891 Personal history of nicotine dependence
CPT/HCPCS: 96376 ×4; 96375 ×2; 96374; 99285; 36415; 93005; 83880; 80053; 82150; 83690; 83735; 84484; 85025; 85610; 85730; 71046; G0378 ×4; J2060; J1200 ×2; J2765; J1170 ×3; 90935

== ENCOUNTER 2019-09-02 10:31 | Emergency (ER) | payer BC, MEDICARE, OTHER ==
--- NOTE | 2019-09-02 11:22 | ED ---
General Adult HPI - General Chief complaint: Fever Stated complaint: Fever Time Seen by Provider: 09/02/19 11:02 Source: patient, RN notes reviewed, old records reviewed Mode of arrival: ambulatory Limitations: no limitations - History of Present Illness Initial comments: 29-year-old female history of end-stage renal disease on hemodialysis presented for evaluation of fever. Patient was noted to have a fever of 101.7 at dialysis, she was given Tylenol and sent to the emergency department for evaluation. Patient states she did complete dialysis and had 3 L Fluid removed. She states she's had a productive cough for approximately one week. She co mplains of a mild sore throat, no rhinorrhea. She herself complains of subjective fever and chills. She has abdominal pain but states this is chronic. No vomiting. No diarrhea. Patient does not make urine. She has left upper extremity AV shunt, denies any redness or warmth to this site. - Related Data Home Medications Medication Instructions Recorded Confirmed Albuterol Sulfate [Proair Hfa] 2 puff INHALATION RT-Q6H PRN 01/22/16 08/19/19 Calcium Acetate [PhosLo] 1,334 mg PO AC-TID 05/01/18 08/19/19 Carvedilol [Coreg] 25 mg PO BID 05/28/18 08/19/19 hydrALAZINE HCL [Apresoline] 100 mg PO TID 11/16/18 08/19/19 Cinacalcet HCl [Sensipar] 60 mg PO TUTHSA 02/26/19 08/19/19 Lidocaine-Prilocaine Cream [Emla 1 applic TOPICAL DAILY PRN 05/24/19 08/19/19 Cream 2.5%/2.5%] traZODone HCL [Desyrel] 50 mg PO HS PRN 05/24/19 08/19/19 Acetaminophen Tab [Tylenol] 650 mg PO Q6H PRN 06/10/19 08/19/19 NIFEdipine [Procardia XL] 60 mg PO DAILY@0530 06/10/19 08/19/19 Pantoprazole [Protonix] 40 mg PO DAILY 07/09/19 08/19/19 Ondansetron Odt [Zofran ODT] 8 mg SL Q8H PRN 07/10/19 08/19/19 Calcium Acetate [PhosLo] 1,334 mg PO BID PRN 08/04/19 08/19/19 ALPRAZolam [Xanax] 0.5 mg PO HS PRN 08/19/19 08/19/19 Previous Rx's Medication Instructions Recorded Oseltamivir 6Mg/ml Oral Susp 30 mg PO DAILY 5 Days #50 ml 09/02/19 [Tamiflu] Allergies Allergy/AdvReac Type Severity Reaction Status Date / Time hydralazine AdvReac Rapid Verified 08/19/19 16:55 Heart Rate WHEN GIVEN THROUGH IV Review of Systems ROS Statement: Those systems with pertinent positive or pertinent negative responses have been documented in the HPI. ROS Other: All systems not noted in ROS Statement are negative. 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 Past Anesthesia/Blood Transfusion Reactions: No Reported Reaction Additional Past Anesthesia/Blood Transfusion Reaction / Comment(s): Pt has received blood in past without reaction. Past Psychological History: Anxiety, Depression Smoking Status: Never smoker Past Alcohol Use History: None Reported Past Drug Use History: Marijuana - Past Family History Father Family Medical History: No Reported History Additional Family Medical History / Comment(s): Father is healthy and is 62 yrs old. Mother Family Medical History: No Reported History Additional Family Medical History / Comment(s): Mother is healthy and is 60 yrs old. General Exam Limitations: no limitations General appearance: alert, in no apparent distress Head exam: Present: atraumatic, normocephalic Eye exam: Present: normal appearance, PERRL ENT exam: Present: normal exam, mucous membranes moist Neck exam: Present: normal inspection. Absent: tenderness, meningismus Respiratory exam: Present: rhonchi (Scattered rhonchi). Absent: wheezes Cardiovascular Exam: Present: regular rate, normal rhythm GI/Abdominal exam: Present: soft, distended. Absent: tenderness, guarding, rebound Neurological exam: Present: alert, oriented X3, CN II-XII intact. Absent: motor sensory deficit Psychiatric exam: Present: normal affect, normal mood Skin exam: Present: warm, dry, intact. Absent: cyanosis, diaphoretic Course Vital Signs 09/02/19 09/02/19 09/02/19 10:44 11:57 12:04 Temperature 99.0 F 98.9 F Pulse Rate 104 H 108 H Respiratory 20 18 Rate Blood Pressure 149/95 150/109 O2 Sat by Pulse 94 L 97 Oximetry Medical Decision Making - Medical Decision Making 29-year-old female coming from dialysis with elevated temperature. Patient does report cough but states her fever has been present for approximately 24 hours. Patient's is influenza B-positive. I discussed the renal failure with pharmacist and recommended dosing was 30 mg daily for 5 days and she should receive her dosing after hemodialysis. She is given an initial dose today of 30 mg of Tamiflu. She has normal white blood cell count, stable hemoglobin, normal potassium. She is very eager for discharge. I did obtain a blood culture this is pending and will take 24 hours to results. She will return with any worsening or changing symptoms. She will return with dyspnea. I discussed case with the patient's distribution engineering technologist Dr. Kirby, she recommended discontinuing antibiotic that had been previously prescribed and she will initiate Tamiflu as prescribed. - Lab Data Result diagrams: 09/02/19 11:43 09/02/19 11:43 Lab Results 09/02/19 09/02/19 09/02/19 Range/Units 11:00 11:43 11:43 WBC 4.2 (3.8-10.6) k/uL RBC 3.85 (3.80-5.40) m/uL Hgb 10.7 L (11.4-16.0) gm/dL Hct 35.5 (34.0-46.0) % MCV 92.3 (80.0-100.0) fL MCH 27.8 (25.0-35.0) pg MCHC 30.2 L (31.0-37.0) g/dL RDW 17.3 H (11.5-15.5) % Plt Count 167 (150-450) k/uL Neutrophils % (Manual) 77 % Lymphocytes % (Manual) 18 % Monocytes % (Manual) 3 % Eosinophils % (Manual) 2 % Neutrophils # (Manual) 3.23 (1.3-7.7) k/uL Lymphocytes # (Manual) 0.76 L (1.0-4.8) k/uL Monocytes # (Manual) 0.13 (0-1.0) k/uL Eosinophils # (Manual) 0.08 (0-0.7) k/uL Nucleated RBCs 0 (0-0) /100 WBC Manual Slide Review Performed Hypochromasia Moderate Anisocytosis Slight Target Cells Present Sodium 137 (137-145) mmol/L Potassium 4.8 (3.5-5.1) mmol/L Chloride 91 L (98-107) mmol/L Carbon Dioxide 32 H (22-30) mmol/L Anion Gap 14 mmol/L BUN 34 H (7-17) mg/dL Creatinine 7.35 H* (0.52-1.04) mg/dL Est GFR (CKD-EPI)AfAm 8 (>60 ml/min/1.73 sqM) Est GFR (CKD-EPI)NonAf 7 (>60 ml/min/1.73 sqM) Glucose 99 (74-99) mg/dL Plasma Lactic Acid Johan (0.7-2.0) mmol/L Calcium 9.8 (8.4-10.2) mg/dL Total Bilirubin 1.5 H (0.2-1.3) mg/dL AST 32 (14-36) U/L ALT 18 (4-34) U/L Alkaline Phosphatase 73 (38-126) U/L Total Protein 8.6 H (6.3-8.2) g/dL Albumin 4.8 (3.5-5.0) g/dL Influenza Type A RNA Not Detected (Not Detectd) Influenza Type B (PCR) Detected H (Not Detectd) 09/02/19 Range/Units 11:43 WBC (3.8-10.6) k/uL RBC (3.80-5.40) m/uL Hgb (11.4-16.0) gm/dL Hct (34.0-46.0) % MCV (80.0-100.0) fL MCH (25.0-35.0) pg MCHC (31.0-37.0) g/dL RDW (11.5-15.5) % Plt Count (150-450) k/uL Neutrophils % (Manual) % Lymphocytes % (Manual) % Monocytes % (Manual) % Eosinophils % (Manual) % Neutrophils # (Manual) (1.3-7.7) k/uL Lymphocytes # (Manual) (1.0-4.8) k/uL Monocytes # (Manual) (0-1.0) k/uL Eosinophils # (Manual) (0-0.7) k/uL Nucleated RBCs (0-0) /100 WBC Manual Slide Review Hypochromasia Anisocytosis Target Cells Sodium (137-145) mmol/L Potassium (3.5-5.1) mmol/L Chloride (98-107) mmol/L Carbon Dioxide (22-30) mmol/L Anion Gap mmol/L BUN (7-17) mg/dL Creatinine (0.52-1.04) mg/dL Est GFR (CKD-EPI)AfAm (>60 ml/min/1.73 sqM) Est GFR (CKD-EPI)NonAf (>60 ml/min/1.73 sqM) Glucose (74-99) mg/dL Plasma Lactic Acid Johan 1.0 (0.7-2.0) mmol/L Calcium (8.4-10.2) mg/dL Total Bilirubin (0.2-1.3) mg/dL AST (14-36) U/L ALT (4-34) U/L Alkaline Phosphatase (38-126) U/L Total Protein (6.3-8.2) g/dL Albumin (3.5-5.0) g/dL Influenza Type A RNA (Not Detectd) Influenza Type B (PCR) (Not Detectd) Disposition Clinical Impression: Influenza Disposition: HOME SELF-CARE Condition: Fair Instructions (If sedation given, give patient instructions): Influenza (ED) Additional Instructions: Please discontinue antibiotic prescribed by Dr. Kirby Prescriptions: Oseltamivir 6Mg/ml Oral Susp [Tamiflu] 30 mg PO DAILY 5 Days #50 ml Is patient prescribed a controlled substance at d/c from ED?: No Referrals: Mary Baez MD [Primary Care Provider] - 1-2 days Lolis Kirby MD [STAFF PHYSICIAN] - 1-2 days Time of Disposition: 13:35
--- NOTE | 2019-09-02 11:38 | XR ---
EXAMINATION TYPE: XR chest 2V DATE OF EXAM: 09/02/2019 HISTORY: fever/cough. REFERENCE: Previous study dated 08/19/2019. FINDINGS: There is multichamber cardiac enlargement. The lungs are clear. Pleural spaces are clear. IMPRESSION: MULTICHAMBER CARDIAC ENLARGEMENT.
[2019-09-02 12:03] VITALS: RESP 18
[2019-09-02 12:17] LABS: Albumin 4.8 g/dL (3.5-5.0); Calcium 9.8 mg/dL (8.4-10.2); Potassium 4.8 mmol/L (3.5-5.1); Total Bilirubin 1.5 mg/dL (0.2-1.3); Total Protein 8.6 g/dL (6.3-8.2)
[2019-09-02 12:25] LABS: Anisocytosis Slight; HCT 35.5 % (34.0-46.0); HGB 10.7 gm/dL (11.4-16.0); Hypochromasia Moderate; MCH 27.8 pg (25.0-35.0); MCHC 30.2 g/dL (31.0-37.0); MCV 92.3 fL (80.0-100.0); Mean Platelet Volume 8.6; Platelet Count 167 k/uL (150-450); RBC 3.85 m/uL (3.80-5.40); RDW 17.3 % (11.5-15.5); WBC 4.2 k/uL (3.8-10.6)
[2019-09-02] MEDS ORDERED: HYDROmorphone 0.5 MG/0.5 ML SYRINGE IVP STA (12:29)
[2019-09-02] MEDS ORDERED: OSELTAMIVIR 75 MG CAP PO STA (13:08)
[2019-09-02] MEDS ORDERED: OSELTAMIVIR 60 MG/10 ML ORAL SYRINGE PO STA (13:15)
[2019-09-02 13:25] LABS: Eosinophils # (M) 0.08 k/uL (0-0.7); Lymphocytes # (M) 0.76 k/uL (1.0-4.8); Monocytes # (M) 0.13 k/uL (0-1.0); Neutrophils # (M) 3.23 k/uL (1.3-7.7); Neutrophils % (M) 77 %; Nucleated Red Blood Cells 0 /100 WBC (0-0); Total Cells Counted 100
[2019-09-02 13:26] LABS: Target Cells Present
[2019-09-02 14:01] VITALS: BP 159/121; PULSE 105; TEMP 100.2
== END 2019-09-02 14:55 | disposition home or self-care (01) ==
LOC: EC 10:31
DX: J10.1 Influenza due to other identified influenza virus with other respiratory manifestations (principal); R14.0 Abdominal distension (gaseous); G89.29 Other chronic pain; R10.9 Unspecified abdominal pain; J45.909 Unspecified asthma, uncomplicated; I13.2 Hypertensive heart and chronic kidney disease with heart failure and with stage 5 chronic kidney disease, or end stage renal disease; N18.6 End stage renal disease; I50.9 Heart failure, unspecified; Q61.3 Polycystic kidney, unspecified; D63.1 Anemia in chronic kidney disease; Z88.8 Allergy status to other drugs, medicaments and biological substances; Z79.899 Other long term (current) drug therapy; Z99.2 Dependence on renal dialysis; Z95.818 Presence of other cardiac implants and grafts
CPT/HCPCS: 99284; 96374; 36415; 80053; 83605; 85025; 87040; 87502; 71046; J1170

== ENCOUNTER 2019-11-17 10:18 | Inpatient (IN) | payer BC, MEDICARE, OTHER ==
--- NOTE | 2019-11-17 10:31 | ED ---
General Adult HPI - General Chief complaint: Recheck/Abnormal Lab/Rx Stated complaint: needs dialysis/nausea Time Seen by Provider: 11/17/19 10:21 Source: patient, RN notes reviewed, old records reviewed Mode of arrival: ambulatory Limitations: no limitations - History of Present Illness Initial comments: 29-year-old female presenting for evaluation of dyspnea and weakness as well as nausea. She was scheduled for hemodialysis today at 6 AM. She did not make this session. She has history of end-stage renal disease who receives hemodialysis on Wednesday. She states she overslept and has insomnia. She believes her last hemodialysis was Wednesday. Denies cough or URI symptoms. Denies fever. Nausea without significant vomiting. No abdominal pain. No chest pain. - Related Data Home Medications Medication Instructions Recorded Confirmed Albuterol Sulfate [Proair Hfa] 2 puff INHALATION RT-Q6H PRN 01/22/16 08/19/19 Calcium Acetate [PhosLo] 1,334 mg PO AC-TID 05/01/18 08/19/19 Carvedilol [Coreg] 25 mg PO BID 05/28/18 08/19/19 hydrALAZINE HCL [Apresoline] 100 mg PO TID 11/16/18 08/19/19 Cinacalcet HCl [Sensipar] 60 mg PO TUTHSA 02/26/19 08/19/19 Lidocaine-Prilocaine Cream [Emla 1 applic TOPICAL DAILY PRN 05/24/19 08/19/19 Cream 2.5%/2.5%] traZODone HCL [Desyrel] 50 mg PO HS PRN 05/24/19 08/19/19 Acetaminophen Tab [Tylenol] 650 mg PO Q6H PRN 06/10/19 08/19/19 NIFEdipine [Procardia XL] 60 mg PO DAILY@0530 06/10/19 08/19/19 Pantoprazole [Protonix] 40 mg PO DAILY 07/09/19 08/19/19 Ondansetron Odt [Zofran ODT] 8 mg SL Q8H PRN 07/10/19 08/19/19 Calcium Acetate [PhosLo] 1,334 mg PO BID PRN 08/04/19 08/19/19 ALPRAZolam [Xanax] 0.5 mg PO HS PRN 08/19/19 08/19/19 Previous Rx's Medication Instructions Recorded Oseltamivir 6Mg/ml Oral Susp 30 mg PO DAILY 5 Days #50 ml 09/02/19 [Tamiflu] Allergies Allergy/AdvReac Type Severity Reaction Status Date / Time hydralazine AdvReac Rapid Verified 11/17/19 10:22 Heart Rate WHEN GIVEN THROUGH IV Review of Systems ROS Statement: Those systems with pertinent positive or pertinent negative responses have been documented in the HPI. ROS Other: All systems not noted in ROS Statement are negative. 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 Past Anesthesia/Blood Transfusion Reactions: No Reported Reaction Additional Past Anesthesia/Blood Transfusion Reaction / Comment(s): Pt has received blood in past without reaction. Past Psychological History: Anxiety, Depression Smoking Status: Never smoker Past Alcohol Use History: None Reported Past Drug Use History: Marijuana - Past Family History Father Family Medical History: No Reported History Additional Family Medical History / Comment(s): Father is healthy and is 62 yrs old. Mother Family Medical History: No Reported History Additional Family Medical History / Comment(s): Mother is healthy and is 60 yrs old. General Exam Limitations: no limitations General appearance: alert, in no apparent distress Head exam: Present: atraumatic, normocephalic Eye exam: Present: normal appearance, PERRL ENT exam: Present: normal exam Neck exam: Present: normal inspection. Absent: tenderness, meningismus Respiratory exam: Present: respiratory distress, rales. Absent: wheezes Cardiovascular Exam: Present: regular rate, normal rhythm GI/Abdominal exam: Present: soft, distended. Absent: tenderness, guarding, rebound Extremities exam: Present: pedal edema Neurological exam: Present: alert, oriented X3, CN II-XII intact. Absent: motor sensory deficit Psychiatric exam: Present: normal affect, normal mood Skin exam: Present: warm, dry, intact. Absent: cyanosis, diaphoretic Course Vital Signs 11/17/19 10:19 Temperature 98.0 F Pulse Rate 99 Respiratory 18 Rate Blood Pressure 182/136 O2 Sat by Pulse 96 Oximetry Medical Decision Making - Medical Decision Making 29-year-old female presenting with need for urgent hemodialysis. Today's her scheduled day. She is tachypneic and moderate respiratory distress. She is oxygenating well on room air. She is hypertensive. I discussed case with nephrology Dr. Thompson who is very familiar with this patient. He will arrange for urgent hemodialysis. Patient will be admitted to internal medicine with nephrology on consult. Laboratory testing has been obtained this is pending, this will be followed up on by nephrology. Disposition Clinical Impression: ESRD (end stage renal disease) on dialysis, Fluid overload Disposition: ADMITTED IP TO THIS HOSP Condition: Stable Is patient prescribed a controlled substance at d/c from ED?: No Referrals: Mary Baez MD [Primary Care Provider] - 1-2 days Decision to Admit Reason: Admit from EC Decision Date: 11/17/19 Decision Time: 10:47
[2019-11-17] MEDS ORDERED: NALOXONE 0.4 MG/ML 1 ML VIAL IV PRN (10:43)
[2019-11-17 11:08] LABS: Albumin 4.6 g/dL (3.5-5.0); Calcium 9.3 mg/dL (8.4-10.2); Magnesium 2.3 mg/dL (1.6-2.3); Phosphorus 5.7 mg/dL (2.5-4.5); Total Protein 8.3 g/dL (6.3-8.2)
[2019-11-17 11:14] LABS: Anisocytosis Slight; Basophils % (A) 1 %; Eosinophils # (A) 0.4 k/uL (0-0.7); Eosinophils % (A) 8 %; HCT 33.3 % (34.0-46.0); HGB 10.5 gm/dL (11.4-16.0); Hypochromasia Slight; Lymphocytes # (A) 1.1 k/uL (1.0-4.8); Lymphocytes % (A) 22 %; MCH 28.8 pg (25.0-35.0); MCHC 31.4 g/dL (31.0-37.0); MCV 91.5 fL (80.0-100.0); Mean Platelet Volume 9.9; Monocytes # (A) 0.1 k/uL (0-1.0); Monocytes % (A) 3 %; Neutrophils % (A) 63 %; Platelet Count 137 k/uL (150-450); RBC 3.63 m/uL (3.80-5.40); RDW 18.2 % (11.5-15.5); WBC 4.8 k/uL (3.8-10.6)
[2019-11-17 11:17] LABS: Potassium 6.4 mmol/L (3.5-5.1)
[2019-11-17] MEDS ORDERED: HYDROmorphone 1 MG/ML 1 ML SYRINGE IVP STA (11:17)
[2019-11-17] MEDS ORDERED: LACTULOSE 20 GM/30 ML CUP PO PRN (11:54)
[2019-11-17] MEDS ORDERED: POLYETHYLENE GLYCOL 3350 17 GM POWD.PACK PO PRN (11:54)
[2019-11-17] MEDS ORDERED: LORazepam 2 MG/ML INJ IV STA (11:55)
--- NOTE | 2019-11-17 11:59 | P.HPIM ---
History of Present Illness 29-year-old the female well known patient to me from her previous hospitalization came in with complaints of shortness of breath generalized weakness generalized body aches and some nausea. Patient had similar symptoms in the past patient only missed hemodialysis today morning. She was also complaining of nonspecific abdominal pain which she already has patient didn't move her bowel for like last few days and has to spend about an hour on the commode. Patient denied any fever chills patient denied any vomiting. Patient denied any [id number] urinary symptoms or dysuria patient doesn't urinate much. Review of Systems REVIEW OF SYSTEMS: CONSTITUTIONAL: No fever. HEENT: No recent visual problems or hearing problems. Denied any sore throat. CARDIOVASCULAR: No chest pain, orthopnea, PND, no palpitations, no syncope. PULMONARY: no cough, no hemoptysis. GASTROINTESTINAL: No diarrhea. NEUROLOGICAL: No headaches, no weakness, no numbness. HEMATOLOGICAL: Denies any bleeding or petechiae. GENITOURINARY: Denies any burning micturition, frequency, or urgency. MUSCULOSKELETAL/RHEUMATOLOGICAL: Denies any joint pain, swelling, or any muscle pain. ENDOCRINE: Denies any polyuria or polydipsia. The rest of the 14-point review of systems is negative. 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 Past Anesthesia/Blood Transfusion Reactions: No Reported Reaction Additional Past Anesthesia/Blood Transfusion Reaction / Comment(s): Pt has received blood in past without reaction. Past Psychological History: Anxiety, Depression Smoking Status: Never smoker Past Alcohol Use History: None Reported Past Drug Use History: Marijuana - Past Family History Father Family Medical History: No Reported History Additional Family Medical History / Comment(s): Father is healthy and is 62 yrs old. Mother Family Medical History: No Reported History Additional Family Medical History / Comment(s): Mother is healthy and is 60 yrs old. Medications and Allergies Home Medications Medication Instructions Recorded Confirmed Type Albuterol Sulfate [Proair Hfa] 2 puff INHALATION RT-Q6H PRN 01/22/16 08/19/19 History Calcium Acetate [PhosLo] 1,334 mg PO AC-TID 05/01/18 08/19/19 History Carvedilol [Coreg] 25 mg PO BID 05/28/18 08/19/19 History hydrALAZINE HCL [Apresoline] 100 mg PO TID 11/16/18 08/19/19 History Cinacalcet HCl [Sensipar] 60 mg PO TUTHSA 02/26/19 08/19/19 History Lidocaine-Prilocaine Cream [Emla 1 applic TOPICAL DAILY PRN 05/24/19 08/19/19 History Cream 2.5%/2.5%] traZODone HCL [Desyrel] 50 mg PO HS PRN 05/24/19 08/19/19 History Acetaminophen Tab [Tylenol] 650 mg PO Q6H PRN 06/10/19 08/19/19 History NIFEdipine [Procardia XL] 60 mg PO DAILY@0530 06/10/19 08/19/19 History Pantoprazole [Protonix] 40 mg PO DAILY 07/09/19 08/19/19 History Ondansetron Odt [Zofran ODT] 8 mg SL Q8H PRN 07/10/19 08/19/19 History Calcium Acetate [PhosLo] 1,334 mg PO BID PRN 08/04/19 08/19/19 History ALPRAZolam [Xanax] 0.5 mg PO HS PRN 08/19/19 08/19/19 History Oseltamivir 6Mg/ml Oral Susp 30 mg PO DAILY 5 Days #50 ml 09/02/19 Rx [Tamiflu] Allergies Allergy/AdvReac Type Severity Reaction Status Date / Time hydralazine AdvReac Rapid Verified 11/17/19 11:51 Heart Rate WHEN GIVEN THROUGH IV Physical Exam Vitals: Vital Signs Temp Pulse Resp BP Pulse Ox 11/17/19 11:45 198/135 11/17/19 11:11 97.6 F 100 22 188/132 94 L 11/17/19 10:19 98.0 F 99 18 182/136 96 Intake and Output 11/16/19 11/17/19 11/17/19 22:59 06:59 14:59 Other: Weight 54.431 kg PHYSICAL EXAMINATION: GENERAL: The patient is alert and oriented x3, not in any acute distress. Well developed, well nourished. HEENT: Pupils are round and equally reacting to light. EOMI. No scleral icterus. No conjunctival pallor. Normocephalic, atraumatic. No pharyngeal erythema. No thyromegaly. CARDIOVASCULAR: S1 and S2 present. No murmurs, rubs, or gallops. PULMONARY: Chest is clear to auscultation, no wheezing or crackles. ABDOMEN: Soft minimal tenderness in the left lower quadrant area, tympanic nondistended, normoactive bowel sounds. No palpable organomegaly. MUSCULOSKELETAL: No joint swelling or deformity. EXTREMITIES: No cyanosis, clubbing, or pedal edema. NEUROLOGICAL: Gross neurological examination did not reveal any focal deficits. SKIN: No rashes. Results CBC & Chem 7: 11/17/19 10:40 11/17/19 10:40 Labs: Abnormal Lab Results - Last 24 Hours (Table) 11/17/19 11/17/19 Range/Units 10:40 10:40 RBC 3.63 L (3.80-5.40) m/uL Hgb 10.5 L (11.4-16.0) gm/dL Hct 33.3 L (34.0-46.0) % RDW 18.2 H (11.5-15.5) % Plt Count 137 L (150-450) k/uL Sodium 134 L (137-145) mmol/L Potassium 6.4 H* (3.5-5.1) mmol/L Chloride 94 L (98-107) mmol/L BUN 68 H (7-17) mg/dL Creatinine 10.16 H* (0.52-1.04) mg/dL Glucose 71 L (74-99) mg/dL Phosphorus 5.7 H (2.5-4.5) mg/dL Total Bilirubin 2.0 H (0.2-1.3) mg/dL Total Protein 8.3 H (6.3-8.2) g/dL Assessment and Plan Plan: -Shortness of breath: Secondary to end-stage renal disease, inability to urinate and heart failure chronic systolic dysfunction with acute exacerbation patient will undergo hemodialysis today. End-stage renal disease: Will require hemodialysis -Hyperkalemia secondary to missing hemodialysis expected to improve with hemodialysis -Abdominal pain: Secondary to constipation will order kayexalte we should help with her potassium as well Congestive heart failure EF of around 45% with exacerbation as mentioned above -Accelerated uncontrolled hypertension secondary to end-stage renal disease expected to improve with hemodialysis patient will be resumed on his antide pressants medications -Nonischemic cardiomyopathy -Anemia of chronic kidney disease -Metabolic bone disease and hyperphosphatasemia secondary to end-stage renal disease continue with phosphate binders. -
[2019-11-17] MEDS ORDERED: SODIUM POLYSTYRENE SULFONATE 15 GM/60 ML BOTTLE PO STA (12:00)
--- NOTE | 2019-11-17 12:14 | P.NPCON ---
History of Present Illness - Reason for Consult end stage renal disease - History of Present Illness Reason for consultation: End-stage renal disease History of present illness: Patient is a 29-year-old female seen in consultation for end-stage renal disease. She is maintained on hemodialysis on Wednesday schedule. Patient states she hasn't been getting along with her family recently. She states yesterday she got into an argument with her mother and brother is stable making fun of her for wanting a new iPhone. Patient stated she wanted to give up and not go to dialysis anymore. She did not go to outpatient hemodialysis this morning. She then decided to come to the hospital. Her potassium level is 6.4. Blood pressure is high. Patient is continuously crying. She does feel d epressed. No vomiting or diarrhea. No chest pain or shortness of breath. Patient states she has been watching her diet but states his been difficult as her family members are eating quite a bit of junk food and not taking her diet into consideration. She denies any fever or chills. Vital signs are stable. General: The patient appeared well nourished and normally developed. HEENT: Head exam is unremarkable. Neck is without jugular venous distension. LUNGS: Lungs are clear to auscultation and percussion. Breath sounds decreased. HEART: Rate and Rhythm are regular. First and second heart sounds normal. No murmurs, rubs or gallops. ABDOMEN: Abdominal exam reveals normal bowel sounds. Non-tender and non- distended. EXTREMITITES: No clubbing, cyanosis, or edema. Past Medical History Past Medical History: Asthma, Heart Failure, Hypertension, Renal Disease Additional Past Medical History / Comment(s): ESRD d/t being born with polycystic kidney disease, failed kidney transplant, hemodialysis (M,W,Fr), metabolic bone disease, chronic anemia, nonischemic myopathy with EF 35-40%/mild to moderate mitral valve regurgitation, vitamin D deficiency, chronic low back pain, ovarian cysts, irregular menses, History of Any Multi-Drug Resistant Organisms: None Reported Past Surgical History: Heart Catheterization, Hernia Repair Additional Past Surgical History / Comment(s): 06/14/18 cardiac cath at [facility] to check coronary pressures, 11/15/09 Failed kidney transplant R pelvis, dialysis catheter in and out, current L upper arm AVG, supra pubic hernia repair, transvaginal mesh, wisdom teeth extraction with anesthesia. Past Anesthesia/Blood Transfusion Reactions: No Reported Reaction Additional Past Anesthesia/Blood Transfusion Reaction / Comment(s): Pt has received blood in past without reaction. Past Psychological History: Anxiety, Depression Smoking Status: Never smoker Past Alcohol Use History: None Reported Past Drug Use History: Marijuana - Past Family History Father Family Medical History: No Reported History Additional Family Medical History / Comment(s): Father is healthy and is 62 yrs old. Mother Family Medical History: No Reported History Additional Family Medical History / Comment(s): Mother is healthy and is 60 yrs old. Medications and Allergies Home Medications Medication Instructions Recorded Confirmed Type Albuterol Sulfate [Proair Hfa] 2 puff INHALATION RT-Q6H PRN 01/22/16 08/19/19 Hi story Calcium Acetate [PhosLo] 1,334 mg PO AC-TID 05/01/18 08/19/19 History Carvedilol [Coreg] 25 mg PO BID 05/28/18 08/19/19 History hydrALAZINE HCL [Apresoline] 100 mg PO TID 11/16/18 08/19/19 History Cinacalcet HCl [Sensipar] 60 mg PO TUTHSA 02/26/19 08/19/19 History Lidocaine-Prilocaine Cream [Emla 1 applic TOPICAL DAILY PRN 05/24/19 08/19/19 History Cream 2.5%/2.5%] traZODone HCL [Desyrel] 50 mg PO HS PRN 05/24/19 08/19/19 History Acetaminophen Tab [Tylenol] 650 mg PO Q6H PRN 06/10/19 08/19/19 History NIFEdipine [Procardia XL] 60 mg PO DAILY@0530 06/10/19 08/19/19 History Pantoprazole [Protonix] 40 mg PO DAILY 07/09/19 08/19/19 History Ondansetron Odt [Zofran ODT] 8 mg SL Q8H PRN 07/10/19 08/19/19 History Calcium Acetate [PhosLo] 1,334 mg PO BID PRN 08/04/19 08/19/19 History ALPRAZolam [Xanax] 0.5 mg PO HS PRN 08/19/19 08/19/19 History Oseltamivir 6Mg/ml Oral Susp 30 mg PO DAILY 5 Days #50 ml 09/02/19 Rx [Tamiflu] Allergies Allergy/AdvReac Type Severity Reaction Status Date / Time hydralazine AdvReac Rapid Verified 11/17/19 11:51 Heart Rate WHEN GIVEN THROUGH IV Physical Exam Vitals: Vital Signs Temp Pulse Resp BP Pulse Ox 11/17/19 11:45 198/135 11/17/19 11:11 97.6 F 100 22 188/132 94 L 11/17/19 10:19 98.0 F 99 18 182/136 96 Intake and Output 11/16/19 11/17/19 11/17/19 22:59 06:59 14:59 Other: Weight 54.431 kg Results - Lab Results Most recent lab results Calcium 9.3 mg/dL (8.4-10.2) 11/17/19 10:40 Phosphorus 5.7 mg/dL (2.5-4.5) H 11/17/19 10:40 Magnesium 2.3 mg/dL (1.6-2.3) 11/17/19 10:40 11/17/19 10:40 11/17/19 10:40 Assessment and Plan Plan: Assessment: 1. End-stage renal disease maintained on hemodialysis on Wednesday schedule. 2. Hyperkalemia secondary to chronic kidney disease and missed dialysis. 3. Chronic kidney disease mineral bone disease maintained on Sensipar and PhosLo. 4. Hypertension with chronic kidney disease. 5. Chronic systolic CHF with ejection fraction of 40-45% with severe tricuspid regurgitation. 6. Severe pulmonary hypertension. Plan: Hemodialysis today with goal 3 L ultrafiltration. Resume home antihypertensives and phosphate binders. Consider psychiatry consultation for depression. Thank you for the consultation. I will continue to follow the patient with you during her hospital stay.
[2019-11-17] MEDS: CALCIUM ACETATE 667 MG TAB PO SCH ×2 (13:18→17:50)
[2019-11-17] MEDS ORDERED: diphenhydrAMINE 50 MG/ML 1 ML VIAL IVP PRN (14:54)
[2019-11-17] MEDS ORDERED: CARVEDILOL 12.5 MG TAB PO SCH (17:30)
[2019-11-17] MEDS: hydrALAZINE HCL 50 MG TAB PO SCH ×2 (17:50→23:30)
[2019-11-17] MEDS: HYDROmorphone 0.5 MG/0.5 ML SYRINGE IVP PRN ×2 (18:11→22:31)
[2019-11-17] MEDS ORDERED: ACETAMINOPHEN TAB 325 MG TAB PO PRN (18:26)
[2019-11-17] MEDS ORDERED: ALBUTEROL NEBULIZED 2.5 MG/3 ML INHALATION PRN (18:26)
[2019-11-17] MEDS ORDERED: ZOLPIDEM 5 MG TAB PO PRN (18:26)
[2019-11-17] MEDS ORDERED: ALPRAZolam 0.25 MG TAB PO PRN (18:26)
[2019-11-17 23:29] LABS: Hepatitis B Surface AB- Quant 23.7 mIU/mL; Hepatitis B Surface Antibody Reactive (Non-Reactive); Hepatitis B Surface Antigen Non-Reactive (Non-Reactive)
[2019-11-18] MEDS ORDERED: SODIUM POLYSTYRENE SULFONATE 15 GM/60 ML BOTTLE PO STA (03:03)
[2019-11-18] MEDS: HYDROmorphone 0.5 MG/0.5 ML SYRINGE IVP PRN ×6 (03:09→23:53)
[2019-11-18] MEDS: CALCIUM ACETATE 667 MG TAB PO SCH ×3 (07:42→17:40)
[2019-11-18] MEDS: CARVEDILOL 12.5 MG TAB PO SCH ×2 (07:43→20:55)
[2019-11-18] MEDS: hydrALAZINE HCL 50 MG TAB PO SCH ×3 (07:44→22:55)
[2019-11-18] MEDS ORDERED: CINACALCET 30 MG TAB PO SCH (09:00)
[2019-11-18] MEDS ORDERED: LACTULOSE 20 GM/30 ML CUP PO PRN (10:54)
[2019-11-18] MEDS ORDERED: SODIUM POLYSTYRENE SULFONATE 15 GM/60 ML BOTTLE PO ONE (11:00)
--- NOTE | 2019-11-18 11:00 | P.PN ---
Subjective Progress Note Date: 11/18/19 Principal diagnosis: This is a 29-year-old with ESRD on dialysis Wednesday was a Wednesday who came in because of fatigue and shortness of breath yesterday she was dialyzed here on routine day at 3 L were taken off This morning she continues to feel unwell no fever chills cough nausea vomiting diarrhea. She is currently on room air and comfortable although looks somewhat short of b reath Hemoglobin is 10.5 potassium was 6.4 yesterday but is 5.8 this morning. Rest of the labs are rather unremarkable She has polycystic kidney disease, failed kidney transplant, nonischemic cardi omyopathy ejection fraction 35-40% Objective - Vital Signs Vital signs: Vital Signs Temp 98.0 F 11/18/19 07:00 Pulse 109 H 11/18/19 07:00 Resp 21 11/18/19 07:00 BP 153/106 11/18/19 07:00 Pulse Ox 100 11/18/19 07:00 Intake & Output 11/17/19 11/18/19 11/18/19 18:59 06:59 18:59 Intake Total 320 Output Total 3000 Balance -3000 320 Weight 54.431 kg Intake: Oral 320 Output: Hemodialysis 3000 Other: Voiding Method Toilet # Voids 1 Examination awake alert oriented No JVP neck is supple no facial asymmetry Lungs are clear to auscultation with good air entry bilaterally Heart sounds are unremarkable for any murmur rub gallop Abdomen soft organomegaly status masses Extremity exam was no edema Neurologically awake alert oriented - Labs CBC & Chem 7: 11/17/19 10:40 11/18/19 00:55 Labs: Abnormal Lab Results - Last 24 Hours (Table) 11/17/19 11/17/19 11/17/19 Range/Units 10:40 10:40 10:40 RBC 3.63 L (3.80-5.40) m/uL Hgb 10.5 L (11.4-16.0) gm/dL Hct 33.3 L (34.0-46.0) % RDW 18.2 H (11.5-15.5) % Plt Count 137 L (150-450) k/uL Sodium 134 L (137-145) mmol/L Potassium 6.4 H* (3.5-5.1) mmol/L Chloride 94 L (98-107) mmol/L BUN 68 H (7-17) mg/dL Creatinine 10.16 H* (0.52-1.04) mg/dL Glucose 71 L (74-99) mg/dL Phosphorus 5.7 H (2.5-4.5) mg/dL Total Bilirubin 2.0 H (0.2-1.3) mg/dL Total Protein 8.3 H (6.3-8.2) g/dL Hep Bs Antibody Reactive H (Non-Reactive) 11/18/19 Range/Units 00:55 RBC (3.80-5.40) m/uL Hgb (11.4-16.0) gm/dL Hct (34.0-46.0) % RDW (11.5-15.5) % Plt Count (150-450) k/uL Sodium (137-145) mmol/L Potassium 5.8 H (3.5-5.1) mmol/L Chloride (98-107) mmol/L BUN (7-17) mg/dL Creatinine (0.52-1.04) mg/dL Glucose (74-99) mg/dL Phosphorus (2.5-4.5) mg/dL Total Bilirubin (0.2-1.3) mg/dL Total Protein (6.3-8.2) g/dL Hep Bs Antibody (Non-Reactive) Assessment and Plan Assessment: Impression 1. ESRD on dialysis Wednesday was a Wednesday, Admitted with social problems and hyperkalemia supposedly yesterday she did not want to get dialyze at her regular [came to the hospital after having some disagreement and her family. 2. Polycystic kidney disease. 3. History of nonischemic cardiomyopathy ejection fraction 35-40% to cardiac cath normal supposedly in 06/14/2018 4. Possible depression 5. Past failed kidney transplant 6. Hyperkalemia secondary to ESRD Recommendation A chest x-ray If necessary we will dialyze her basal x-ray findings. Give her 1 dose of Kayexalate 15 g today and tomorrow
--- NOTE | 2019-11-18 11:51 | P.PN ---
Subjective 29-year-old the female well known patient to me from her previous hospitalization came in with complaints of shortness of breath generalized weakness generalized body aches and some nausea. Patient had similar symptoms in the past patient only missed hemodialysis today morning. She was also complaining of nonspecific abdominal pain which she already has patient didn't move her bowel for like last few days and has to spend about an hour on the commode. Patient denied any fever chills patient denied any vomiting. Patient denied any [id number] urinary symptoms or dysuria patient doesn't urinate much. 11/18/2019 Patient underwent hemodialysis yesterday status improved I'll obtain a chest x- ray make sure patient doesn't have any pulmonary edema patient is still complaining of significant tiredness and weakness there is no feveror symptoms of sepsis etiology of her Tiredness is not clear can be medication induced secondary to polypharmacy. Constitutional: Denied any fever. Cardio vascular: denied any chest pain, palpitations Gastrointestinal denied any nausea vomiting Pulmonary: Denied any shortness of breath cough Neurologic denied any new focal deficits All inpatient medications were reviewed and appropriate changes in these medications as dictated in the interval history and assessment and plan. Objective - Vital Signs Vital signs: Vital Signs Temp 98.0 F 11/18/19 07:00 Pulse 109 H 11/18/19 07:00 Resp 21 11/18/19 07:00 BP 153/106 11/18/19 07:00 Pulse Ox 100 11/18/19 07:00 Intake & Output 11/17/19 11/18/19 11/18/19 18:59 06:59 18:59 Intake Total 320 Output Total 3000 Balance -3000 320 Weight 54.431 kg Intake: Oral 320 Output: Hemodialysis 3000 Other: Voiding Method Toilet # Voids 1 - Exam PHYSICAL EXAMINATION: GENERAL: The patient is alert and oriented x3, not in any acute distress. Well developed, well nourished. HEENT: Pupils are round and equally reacting to light. EOMI. No scleral icterus. No conjunctival pallor. Normocephalic, atraumatic. No pharyngeal erythema. No thyromegaly. CARDIOVASCULAR: S1 and S2 present. No murmurs, rubs, or gallops. PULMONARY: Chest is clear to auscultation, no wheezing or crackles. ABDOMEN: Soft minimal tenderness in the left lower quadrant area, tympanic nondistended, normoactive bowel sounds. No palpable organomegaly. MUSCULOSKELETAL: No joint swelling or deformity. EXTREMITIES: No cyanosis, clubbing, or pedal edema. NEUROLOGICAL: Gross neurological examination did not reveal any focal deficits. SKIN: No rashes. - Labs CBC & Chem 7: 11/17/19 10:40 11/18/19 00:55 Labs: Abnormal Lab Results - Last 24 Hours (Table) 11/17/19 11/18/19 Range/Units 10:40 00:55 Potassium 5.8 H (3.5-5.1) mmol/L Hep Bs Antibody Reactive H (Non-Reactive) Assessment and Plan Plan: -Shortness of breath: Secondary to end-stage renal disease, inability to urinate and heart failure chronic systolic dysfunction with acute exacerbation patientunderwent hemodialysis yesterday with repeat the chest x-ray today depending on that nephrology will decide on repeat hemodialysis although patient doesn't appear to have any significant shortness of breath clinically doesn't appear to be volume overloaded End-stage renal disease: had hemodialysis started -Hyperkalemia secondary to missing hemodialysis expected to improve with hemodialysis -Abdominal pain: Secondary to constipation, patient did not move her bowel yet will order lactulose as well -Tiredness generalized weakness probably secondary to polypharmacy Congestive heart failure EF of around 45% with exacerbation as mentioned above -Accelerated uncontrolled hypertension secondary to end-stage renal disease expected to improve with hemodialysis patient will be resumed on his antidepressants medications -Nonischemic cardiomyopathy -Anemia of chronic kidney disease -Metabolic bone disease and hyperphosphatasemia secondary to end-stage renal disease continue with phosphate binders. -
[2019-11-18] MEDS: TRIMETHOBENZAMIDE 300 MG CAP PO PRN (15:55)
[2019-11-19] MEDS: HYDROmorphone 0.5 MG/0.5 ML SYRINGE IVP PRN ×3 (05:14→11:40)
[2019-11-19 07:25] VITALS: BP 166/121; PULSE 107; TEMP 97.9
[2019-11-19 07:30] LABS: Calcium 8.3 mg/dL (8.4-10.2); Potassium 5.5 mmol/L (3.5-5.1)
[2019-11-19] MEDS: CALCIUM ACETATE 667 MG TAB PO SCH (08:04)
[2019-11-19] MEDS: CARVEDILOL 12.5 MG TAB PO SCH (08:04)
[2019-11-19] MEDS: hydrALAZINE HCL 50 MG TAB PO SCH (08:04)
[2019-11-19 08:20] VITALS: RESP 20
[2019-11-19] MEDS ORDERED: SODIUM POLYSTYRENE SULFONATE 15 GM/60 ML BOTTLE PO STA (10:43)
[2019-11-19] MEDS: TRIMETHOBENZAMIDE 300 MG CAP PO PRN (11:49)
--- NOTE | 2019-11-19 12:07 | P.PN ---
Subjective Progress Note Date: 11/19/19 Principal diagnosis: This is a 29-year-old with ESRD on dialysis Wednesday was a Wednesday who came in because of fatigue and shortness of breath yesterday she was dialyzed here on Wednesday11/17/2019Carl a day before yesterday. She remains fairly asymptomatic She says her appetite is poor but no nausea vomiting abdominal pain no diarrhea. No fever chills cough shortness of breath. She is on room air and comfortable She is going to be discharged today once her potassium comes down she was given Kayexalate her potassium this morning was 5.5. Bicarb was 20 sodium 135 Hemoglobin is 10.5 potassium was 6.4 yesterday She has polycystic kidney disease, failed kidney transplant, nonischemic cardiomyopathy ejection fraction 35-40% Objective - Vital Signs Vital signs: Vital Signs Temp 97.9 F 11/19/19 07:00 Pulse 107 H 11/19/19 07:00 Resp 20 11/19/19 08:00 BP 166/121 11/19/19 07:00 Pulse Ox 99 11/19/19 07:00 Intake & Output 11/18/19 11/19/19 11/19/19 18:59 06:59 18:59 Intake Total 20 Balance 20 Intake: Oral 20 Other: Voiding Method Toilet # Bowel Movements 1 on examination awake alert oriented comfortable HEENT exam no JVP neck is supple no facial asymmetry Lungs clear to auscultation good air entry bilaterally Heart sounds are unremarkable Abdomen soft nontender Extremity exam was no edema Neurologically awake alert oriented - Labs CBC & Chem 7: 11/17/19 10:40 11/19/19 05:50 Labs: Abnormal Lab Results - Last 24 Hours (Table) 11/19/19 Range/Units 05:50 Sodium 135 L (137-145) mmol/L Potassium 5.5 H (3.5-5.1) mmol/L Chloride 97 L (98-107) mmol/L Carbon Dioxide 20 L (22-30) mmol/L BUN 63 H (7-17) mg/dL Creatinine 9.98 H* (0.52-1.04) mg/dL Calcium 8.3 L (8.4-10.2) mg/dL Assessment and Plan Assessment: Impression 1. ESRD on dialysis Wednesday was a Wednesday, Admitted with social problems and hyperkalemia supposedly did not go to her dialysis unit on Wednesday for 2019 came to the hospital and was dialyzed with 3 L taken off and feels comfortable post dialysis. 2. Polycystic kidney disease. 3. History of nonischemic cardiomyopathy ejection fraction 35-40% to cardiac cath normal supposedly in 06/14/2018 4. Possible depression 5. Past failed kidney transplant 6. Hyperkalemia secondary to ESRD. Potassium is 5.5 this morning. She has been given Kayexalate today Recommendation patient can be discharged. Follow up in dialysis unit
--- NOTE | 2019-11-19 13:01 | P.DS ---
Providers Date of admission: 11/19/19 09:01 Attending physician: Agnieszka Travis Consults: 11/17/19 10:44 Consult Physician Urgent Consulting Provider: Robin Thompson Consult Reason/Comments: ESRD, Fluid overload Do you want consulting provider notified?: Already Contacted [facility] Course: 29-year-old the female well known patient to me from her previous hospitaliz ation came in with complaints of shortness of breath generalized weakness generalized body aches and some nausea. Patient had similar symptoms in the past patient only missed hemodialysis today morning. She was also complaining of nonspecific abdominal pain which she already has patient didn't move her bowel for like last few days and has to spend about an hour on the commode. Patient denied any fever chills patient denied any vomiting. Patient denied any [id number] urinary symptoms or dysuria patient doesn't urinate much. 11/18/2019 Patient underwent hemodialysis yesterday status improved I'll obtain a chest x- ray make sure patient doesn't have any pulmonary edema patient is still complaining of significant tiredness and weakness there is no feveror symptoms of sepsis . 11/19/2019 Patient move her bowel patient is feeling better today saturating at 99% on room and she declined any imaging studies as today after lengthy counseling patient the and lifting Kayoxalate will give her a dose of Kayexalate today and if cleared by nephrology patient will be discharged today. PHYSICAL EXAMINATION: GENERAL: The patient is alert and oriented x3, not in any acute distress. Well developed, well nourished. HEENT: Pupils are round and equally reacting to light. EOMI. No scleral icterus. No conjunctival pallor. Normocephalic, atraumatic. No pharyngeal erythema. No thyromegaly. CARDIOVASCULAR: S1 and S2 present. No murmurs, rubs, or gallops. PULMONARY: Chest is clear to auscultation, no wheezing or crackles. ABDOMEN: Soft, nontender, nondistended, normoactive bowel sounds. No palpable organomegaly. MUSCULOSKELETAL: No joint swelling or deformity. EXTREMITIES: No cyanosis, clubbing, or pedal edema. NEUROLOGICAL: Gross neurological examination did not reveal any focal deficits. SKIN: No rashes. Assessment and Plan Plan: -Shortness of breath: Secondary to end-stage renal disease, inability to urinate and heart failure chronic systolic dysfunction with acute exacerbation patientunderwent hemodialysis on Wednesday, patient will resume her regular rate regular hemodialysis tomorrow End-stage renal disease: had hemodialysis started -Hyperkalemia secondary to missing hemodialysis expected to improve with hemodialysis -Abdominal pain: Secondary to constipation, resolved now -Tiredness generalized weakness probably secondary to polypharmacy, improved now Congestive heart failure EF of around 45% with exacerbation as mentioned above -Accelerated uncontrolled hypertension secondary to end-stage renal disease improved now patient is bit tachycardic which is normal for her -Nonischemic cardiomyopathy -Anemia of chronic kidney disease -Metabolic bone disease and hyperphosphatasemia secondary to end-stage renal disease continue with phosphate binders. - Patient Condition at Discharge: Stable Plan - Discharge Summary New Discharge Prescriptions: Continue Albuterol Sulfate [Proair Hfa] 2 puff INHALATION RT-Q6H PRN PRN Reason: Shortness Of Breath Carvedilol [Coreg] 25 mg PO BID hydrALAZINE HCL [Apresoline] 100 mg PO TID Cinacalcet HCl [Sensipar] 60 mg PO TUTHSA NIFEdipine [Procardia XL] 60 mg PO DAILY Acetaminophen Tab [Tylenol] 650 mg PO Q6H PRN PRN Reason: Pain ALPRAZolam [Xanax] 0.25 mg PO DAILY PRN PRN Reason: Anxiety Zolpidem Tartrate [Ambien] 5 mg PO HS PRN PRN Reason: Insomnia Ranitidine HCl [Zantac] 150 mg PO DAILY PRN PRN Reason: Indigestion Discharge Medication List Albuterol Sulfate [Proair Hfa] 2 puff INHALATION RT-Q6H PRN 01/22/16 [History] Carvedilol [Coreg] 25 mg PO BID 05/28/18 [History] hydrALAZINE HCL [Apresoline] 100 mg PO TID 11/16/18 [History] Cinacalcet HCl [Sensipar] 60 mg PO TUTHSA 02/26/19 [History] Acetaminophen Tab [Tylenol] 650 mg PO Q6H PRN 06/10/19 [History] NIFEdipine [Procardia XL] 60 mg PO DAILY 06/10/19 [History] ALPRAZolam [Xanax] 0.25 mg PO DAILY PRN 11/17/19 [History] Ranitidine HCl [Zantac] 150 mg PO DAILY PRN 11/17/19 [History] Zolpidem Tartrate [Ambien] 5 mg PO HS PRN 11/17/19 [History] Follow up Appointment(s)/Referral(s): Mary Baez MD [Primary Care Provider] - 3 Days (office closed at time of discharge. Please call on Wednesday to make appointment) Discharge Disposition: HOME SELF-CARE
== END 2019-11-19 12:29 | disposition home or self-care (01) | DRG 291 ==
LOC: EC 10:18 → 4SSUR 10:43 → OBSVTOIN 11-19 09:01
PROVIDERS: ADMIT Hospitalist; ATTEND Hospitalist
PROC: 5A1D70Z Performance of Urinary Filtration, Intermittent, Less than 6 Hours Per Day (ICD-10-PCS; principal; 2019-11-19)
DX: I13.2 Hypertensive heart and chronic kidney disease with heart failure and with stage 5 chronic kidney disease, or end stage renal disease (principal); I50.21 Acute systolic (congestive) heart failure; N18.6 End stage renal disease; Q61.3 Polycystic kidney, unspecified; I42.8 Other cardiomyopathies; I08.1 Rheumatic disorders of both mitral and tricuspid valves; I27.20 Pulmonary hypertension, unspecified; J45.909 Unspecified asthma, uncomplicated; K59.00 Constipation, unspecified; M89.8X9 Other specified disorders of bone, unspecified site; F41.9 Anxiety disorder, unspecified; F32.9 Major depressive disorder, single episode, unspecified; E88.89 Other specified metabolic disorders; E87.5 Hyperkalemia; G47.00 Insomnia, unspecified; D63.1 Anemia in chronic kidney disease; Z79.899 Other long term (current) drug therapy; Z99.2 Dependence on renal dialysis; Z88.8 Allergy status to other drugs, medicaments and biological substances
CPT/HCPCS: 36415; 80048; 80053; 83735; 84100; 84132; 85025; 86706; 87340; 90935; 93005; 94640; 96374; 96375; 99284

== ENCOUNTER 2019-11-24 07:36 | Inpatient (IN) | payer BC, MEDICARE, OTHER ==
[2019-11-24] MEDS ORDERED: MORPHINE SULFATE 4 MG/ML SYRINGE IV STA (08:08)
[2019-11-24] MEDS ORDERED: PANTOPRAZOLE 40 MG/10 ML VIAL IVP STA (08:08)
--- NOTE | 2019-11-24 08:11 | ED ---
General Adult HPI - General Chief complaint: Abdominal Pain Stated complaint: abd pain Time Seen by Provider: 11/24/19 07:40 Source: patient, RN notes reviewed, old records reviewed (Previous EKG from November 17 reviewed with similar lateral T wave inversion) Mode of arrival: EMS Limitations: no limitations - History of Present Illness Initial comments: Patient is a pleasant 29-year-old female presenting to the emergency Department with abdominal discomfort. Patient states onset of symptoms was 2 or more days ago. Patient states she did not finish her dialysis on Wednesday because she was anxious and uncomfortable. Patient states she has had similar symptoms at least for 5 times previously associated with fluid overload. Patient feels like her abdomen is distended. Patient was unable to complete dialysis again today and was sent to the emergency department. Patient feels her abdomen is distended and fluid-filled and diffusely uncomfortable. No nausea vomiting. No constipation or diarrhea. Patient denies possible . - Related Data Home Medications Medication Instructions Recorded Confirmed Albuterol Sulfate [Proair Hfa] 2 puff INHALATION RT-Q6H PRN 01/22/16 11/24/19 Carvedilol [Coreg] 25 mg PO BID 05/28/18 11/24/19 hydrALAZINE HCL [Apresoline] 100 mg PO TID 11/16/18 11/24/19 Cinacalcet HCl [Sensipar] 60 mg PO TUTHSA 02/26/19 11/24/19 Acetaminophen Tab [Tylenol] 650 mg PO Q6H PRN 06/10/19 11/24/19 NIFEdipine [Procardia XL] 60 mg PO DAILY 06/10/19 11/24/19 ALPRAZolam [Xanax] 0.25 mg PO DAILY PRN 11/17/19 11/24/19 Ranitidine HCl [Zantac] 150 mg PO DAILY PRN 11/17/19 11/24/19 Zolpidem Tartrate [Ambien] 5 mg PO HS PRN 11/17/19 11/24/19 Allergies Allergy/AdvReac Type Severity Reaction Status Date / Time hydralazine AdvReac Rapid Verified 11/24/19 09:42 Heart Rate WHEN GIVEN THROUGH IV Review of Systems ROS Statement: Those systems with pertinent positive or pertinent negative responses have been documented in the HPI. ROS Other: All systems not noted in ROS Statement are negative. Constitutional: Denies: fever Eyes: Denies: eye pain ENT: Denies: ear pain Respiratory: Denies: cough Cardiovascular: Denies: chest pain Endocrine: Denies: fatigue Gastrointestinal: Reports: as per HPI, abdominal pain Genitourinary: Denies: dysuria Musculoskeletal: Denies: back pain Skin: Denies: rash Neurological: Denies: weakness Past Medical History Past Medical History: Asthma, Heart Failure, Hypertension, Renal Disease Additional Past Medical History / Comment(s): ESRD d/t being born with polycystic kidney disease, failed kidney transplant, hemodialysis (M,W,Fr), metabolic bone disease, chronic anemia, 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 Past Anesthesia/Blood Transfusion Reactions: No Reported Reaction Additional Past Anesthesia/Blood Transfusion Reaction / Comment(s): Pt has received blood in past without reaction. Past Psychological History: Anxiety, Depression Smoking Status: Never smoker Past Alcohol Use History: None Reported Past Drug Use History: Marijuana - Past Family History Father Family Medical History: No Reported History Additional Family Medical History / Comment(s): Father is healthy and is 62 yrs old. Mother Family Medical History: No Reported History Additional Family Medical History / Comment(s): Mother is healthy and is 60 yrs old. General Exam Limitations: no limitations General appearance: alert Head exam: Present: normocephalic Eye exam: Present: normal appearance Neck exam: Present: normal inspection Respiratory exam: Present: normal lung sounds bilaterally Cardiovascular Exam: Present: regular rate, normal rhythm GI/Abdominal exam: Present: soft, distended, tenderness (Mild diffuse tenderness), normal bowel sounds. Absent: guarding, rebound, rigid, pulsatile mass Extremities exam: Present: normal inspection Neurological exam: Present: alert Psychiatric exam: Present: anxious (Patient does appear mildly anxious) Skin exam: Present: normal color Course Vital Signs 11/24/19 11/24/19 11/24/19 07:38 08:25 08:30 Temperature 97.4 F L Pulse Rate 75 77 73 Respiratory 18 21 16 Rate Blood Pressure 126/93 126/92 126/92 O2 Sat by Pulse 96 89 L 88 L Oximetry 11/24/19 11/24/19 11/24/19 08:42 09:00 10:00 Temperature Pulse Rate 80 74 Respiratory 17 21 Rate Blood Pressure 124/93 126/87 O2 Sat by Pulse 88 L 87 L 88 L Oximetry - Reevaluation(s) Reevaluation #1: 11/24/19 10:31 Case also discussed with Dr. Kirby following blood gas who will get dialysis started. She is familiar with this patient. EKG Findings - EKG Comments: EKG Findings:: Sinus rhythm at 76. For screening AV block with a RI of 232. QRS 92. QT 4 mL 4. QTC 522. Left axis. LVH. T-wave inversion in V6. Procedures - ABG Interpretation Ph: 7.43 PCO2: 39.9 PO2: 49.5 Bicarbonate: 26.6 Interpretation: abnormal Medical Decision Making - Medical Decision Making Patient was reevaluated and is feeling much better. Patient updated on results and plan. Case was discussed in detail with Dr. Nix, who will admit covering for Dr. Javier cummings. Nephrology will be placed on consult. - Lab Data Result diagrams: 11/24/19 07:51 11/24/19 07:51 Lab Results 11/24/19 11/24/19 11/24/19 Range/Units 07:51 07:51 07:51 WBC 5.9 (3.8-10.6) k/uL RBC 3.50 L (3.80-5.40) m/uL Hgb 9.8 L (11.4-16.0) gm/dL Hct 32.3 L (34.0-46.0) % MCV 92.3 (80.0-100.0) fL MCH 28.1 (25.0-35.0) pg MCHC 30.4 L (31.0-37.0) g/dL RDW 18.4 H (11.5-15.5) % Plt Count 152 (150-450) k/uL Neutrophils % 66 % Lymphocytes % 18 % Monocytes % 6 % Eosinophils % 7 % Basophils % 1 % Neutrophils # 3.9 (1.3-7.7) k/uL Lymphocytes # 1.1 (1.0-4.8) k/uL Monocytes # 0.3 (0-1.0) k/uL Eosinophils # 0.4 (0-0.7) k/uL Basophils # 0.1 (0-0.2) k/uL Hypochromasia Moderate Anisocytosis Slight PT 12.7 H (9.0-12.0) sec INR 1.3 H (<1.2) APTT 30.9 H (22.0-30.0) sec Sample Site ABG pH (7.35-7.45) ABG pCO2 (35-45) mmHg ABG pO2 (83-108) mmHg ABG HCO3 (21-25) mmol/L ABG Total CO2 (19-24) mmol/L ABG O2 Saturation (94-97) % ABG Base Excess mmol/L Herve Test FiO2 % Sodium 137 (137-145) mmol/L Potassium 4.8 (3.5-5.1) mmol/L Chloride 95 L (98-107) mmol/L Carbon Dioxide 26 (22-30) mmol/L Anion Gap 16 mmol/L BUN 61 H (7-17) mg/dL Creatinine 8.08 H* (0.52-1.04) mg/dL Est GFR (CKD-EPI)AfAm 7 (>60 ml/min/1.73 sqM) Est GFR (CKD-EPI)NonAf 6 (>60 ml/min/1.73 sqM) Glucose 111 H (74-99) mg/dL Calcium 9.4 (8.4-10.2) mg/dL Total Bilirubin 1.2 (0.2-1.3) mg/dL AST 33 (14-36) U/L ALT 27 (4-34) U/L Alkaline Phosphatase 83 (38-126) U/L Total Protein 7.7 (6.3-8.2) g/dL Albumin 4.2 (3.5-5.0) g/dL Amylase 152 H (30-110) U/L Lipase 218 (23-300) U/L HCG, Quant mIU/mL 11/24/19 11/24/19 Range/Units 07:51 10:08 WBC (3.8-10.6) k/uL RBC (3.80-5.40) m/uL Hgb (11.4-16.0) gm/dL Hct (34.0-46.0) % MCV (80.0-100.0) fL MCH (25.0-35.0) pg MCHC (31.0-37.0) g/dL RDW (11.5-15.5) % Plt Count (150-450) k/uL Neutrophils % % Lymphocytes % % Monocytes % % Eosinophils % % Basophils % % Neutrophils # (1.3-7.7) k/uL Lymphocytes # (1.0-4.8) k/uL Monocytes # (0-1.0) k/uL Eosinophils # (0-0.7) k/uL Basophils # (0-0.2) k/uL Hypochromasia Anisocytosis PT (9.0-12.0) sec INR (<1.2) APTT (22.0-30.0) sec Sample Site RRAD ABG pH 7.43 (7.35-7.45) ABG pCO2 40 (35-45) mmHg ABG pO2 50 L* (83-108) mmHg ABG HCO3 27 H (21-25) mmol/L ABG Total CO2 28 H (19-24) mmol/L ABG O2 Saturation 82.2 L (94-97) % ABG Base Excess 2.4 mmol/L Herve Test Yes FiO2 40 % Sodium (137-145) mmol/L Potassium (3.5-5.1) mmol/L Chloride (98-107) mmol/L Carbon Dioxide (22-30) mmol/L Anion Gap mmol/L BUN (7-17) mg/dL Creatinine (0.52-1.04) mg/dL Est GFR (CKD-EPI)AfAm (>60 ml/min/1.73 sqM) Est GFR (CKD-EPI)NonAf (>60 ml/min/1.73 sqM) Glucose (74-99) mg/dL Calcium (8.4-10.2) mg/dL Total Bilirubin (0.2-1.3) mg/dL AST (14-36) U/L ALT (4-34) U/L Alkaline Phosphatase (38-126) U/L Total Protein (6.3-8.2) g/dL Albumin (3.5-5.0) g/dL Amylase (30-110) U/L Lipase (23-300) U/L HCG, Quant <2.4 mIU/mL - Radiology Data Radiology results: image reviewed (Chest x-ray shows cardiomegaly. Increased interstitial changes, probable volume overload. Abdominal x-ray shows nonspecific abdomen.) Critical Care Time Critical Care Time: Yes Total Critical Care Time: 31 Disposition Clinical Impression: Fluid overload, Hypoxia Disposition: ADMITTED IP TO THIS HOSP Is patient prescribed a controlled substance at d/c from ED?: No Referrals: Mary Baez MD [Primary Care Provider] - 1-2 days Decision Time: 10:02
[2019-11-24 08:33] LABS: Anisocytosis Slight; Basophils # (A) 0.1 k/uL (0-0.2); Basophils % (A) 1 %; Eosinophils # (A) 0.4 k/uL (0-0.7); Eosinophils % (A) 7 %; HCT 32.3 % (34.0-46.0); HGB 9.8 gm/dL (11.4-16.0); Hypochromasia Moderate; Lymphocytes # (A) 1.1 k/uL (1.0-4.8); Lymphocytes % (A) 18 %; MCH 28.1 pg (25.0-35.0); MCHC 30.4 g/dL (31.0-37.0); MCV 92.3 fL (80.0-100.0); Mean Platelet Volume 8.1; Monocytes # (A) 0.3 k/uL (0-1.0); Monocytes % (A) 6 %; Neutrophils # (A) 3.9 k/uL (1.3-7.7); Neutrophils % (A) 66 %; Platelet Count 152 k/uL (150-450); RDW 18.4 % (11.5-15.5); WBC 5.9 k/uL (3.8-10.6)
[2019-11-24 08:38] LABS: INR 1.3 (<1.2)
[2019-11-24 08:39] LABS: Albumin 4.2 g/dL (3.5-5.0); Calcium 9.4 mg/dL (8.4-10.2); Partial Thromboplastin Time 30.9 sec (22.0-30.0); Potassium 4.8 mmol/L (3.5-5.1); Prothrombin Time 12.7 sec (9.0-12.0); Total Bilirubin 1.2 mg/dL (0.2-1.3); Total Protein 7.7 g/dL (6.3-8.2)
--- NOTE | 2019-11-24 09:18 | XR ---
EXAMINATION TYPE: XR chest 2V DATE OF EXAM: 11/24/2019 COMPARISON: 09/02/2019 HISTORY: 29-year-old female abdominal pain and shortness of breath TECHNIQUE: PA and lateral views FINDINGS: The heart is moderately enlarged. Diffuse interstitial density. Mild patchy bibasilar density. No siz able effusion. Multiple surgical clips along the left lower arm and medial elbow region. IMPRESSION: Moderate cardiomegaly and increased interstitial change, possible pulmonary vascular congestion.
--- NOTE | 2019-11-24 09:20 | XR ---
EXAMINATION TYPE: XR KUB DATE OF EXAM: 11/24/2019 Comparison: 04/19/2019 Clinical History: 29-year-old female abdominal pain Findings: No evidence for free intraperitoneal air. Overall paucity of bowel gas. Small amount of colonic air is seen. Surgical clip in the right paramed herrera lower pelvis with pelvic phlebolith. No significant stool is seen. Impression: No free air. Nonspecific bowel gas pattern given limited bowel air.
[2019-11-24] MEDS ORDERED: NALOXONE 0.4 MG/ML 1 ML VIAL IV PRN (09:59)
[2019-11-24 10:21] LABS: ABG Base Excess 2.4 mmol/L; ABG HCO3 27 mmol/L (21-25); ABG Oxygen Saturation 82.2 % (94-97); ABG PCO2 40 mmHg (35-45); ABG PH 7.43 (7.35-7.45); ABG TCO2 28 mmol/L (19-24); Allen Test Performed? Yes
[2019-11-24] MEDS ORDERED: LORazepam 1 MG TAB PO STA (10:27)
[2019-11-24 10:29] LABS: ABG PO2 50 mmHg (83-108)
[2019-11-24] MEDS: MORPHINE SULFATE 4 MG/ML SYRINGE IV PRN ×3 (13:31→23:20)
[2019-11-24] MEDS ORDERED: ACETAMINOPHEN TAB 325 MG TAB PO PRN (14:11)
[2019-11-24] MEDS ORDERED: ALBUTEROL HFA INHALER INHALATION PRN (14:11)
[2019-11-24] MEDS ORDERED: ALPRAZolam 0.25 MG TAB PO PRN (14:11)
[2019-11-24] MEDS ORDERED: ZOLPIDEM 5 MG TAB PO PRN (14:11)
[2019-11-24] MEDS: hydrALAZINE HCL 50 MG TAB PO SCH ×2 (17:19→22:05)
[2019-11-24] MEDS: CARVEDILOL 12.5 MG TAB PO SCH (22:06)
[2019-11-24] MEDS: HEPARIN SODIUM,PORCINE 5,000 UNIT/ML 1 ML VIAL SQ SCH (22:11)
--- NOTE | 2019-11-24 22:49 | P.HPIM ---
History of Present Illness H&P Date: 11/24/19 Chief Complaint: Shortness of breath Patient is to 8 old female with a known history of ESRD due to polycystic kidney disease, failed renal transplant. Currently on hemodialysis and nonischemic cardiomyopathy ejection fraction 35-40% and valvular heart disease, asthma and other multiple medical problems came to ER with complaints of abdominal discomfort. Patient says that she has been having symptoms for the past 2 days. Patient had incomplete hemodialysis on Wednesday because she was anxious and uncomfortable.vPatient states she has had similar symptoms at least for 5 times previously associated with fluid overload. Patient feels like her abdomen is distended. Patient was unable to complete dialysis again today and was sent to the emergency department. Patient feels her abdomen is distended and fluid- filled and diffusely uncomfortable. No nausea vomiting. No constipation or diarrhea. Patient denies possible . Patient had last hemodialysis on Wednesday which is incomplete. EKG showed sinus rhythm. More chest x-ray showed moderate cardiomegaly and increased interstitial changes. Possible pulmonary vascular congestion. KUB x-ray showed no evidence of free intraperitoneal air. BNP greater than 1 60,000 Covid 19 negative. Review of Systems Constitutional: Patient denies any fever or chills . No generalized weakness or weight loss. Abdomen: Patient does have nausea. No vomiting. No diarrhea. Does have abdominal discomfort.. Cardiovascular: Patient denies any chest pain . Positive short of breath no palpitations. Respiratory: patient denied any cough is from production. Does have shortness of breath Neurologic: Patient denied any numbness or tingling headache. Musculoskeletal: Patient denies any complaints of joint swelling or deformity. Skin: Negative Psychiatric: Negative Endocrine: No heat or cold intolerance. No recent weight gain. Genitourinary: No dysuria or hematuria. 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 Past Anesthesia/Blood Transfusion Reactions: No Reported Reaction Additional Past Anesthesia/Blood Transfusion Reaction / Comment(s): Pt has received blood in past without reaction. Past Psychological History: Anxiety, Depression Smoking Status: Never smoker Past Alcohol Use History: None Reported Past Drug Use History: Marijuana - Past Family History Father Family Medical History: No Reported History Additional Family Medical History / Comment(s): Father is healthy and is 62 yrs old. Mother Family Medical History: No Reported History Additional Family Medical History / Comment(s): Mother is healthy and is 60 yrs old. Medications and Allergies Home Medications Medication Instructions Recorded Confirmed Type Albuterol Sulfate [Proair Hfa] 2 puff INHALATION RT-Q6H PRN 01/22/16 11/24/19 History Carvedilol [Coreg] 25 mg PO BID 05/28/18 11/24/19 History hydrALAZINE HCL [Apresoline] 100 mg PO TID 11/16/18 11/24/19 History Cinacalcet HCl [Sensipar] 60 mg PO TUTHSA 02/26/19 11/24/19 History Acetaminophen Tab [Tylenol] 650 mg PO Q6H PRN 06/10/19 11/24/19 History NIFEdipine [Procardia XL] 60 mg PO DAILY 06/10/19 11/24/19 History ALPRAZolam [Xanax] 0.25 mg PO DAILY PRN 11/17/19 11/24/19 History Ranitidine HCl [Zantac] 150 mg PO DAILY PRN 11/17/19 11/24/19 History Zolpidem Tartrate [Ambien] 5 mg PO HS PRN 11/17/19 11/24/19 History Allergies Allergy/AdvReac Type Severity Reaction Status Date / Time hydralazine AdvReac Rapid Verified 11/24/19 09:42 Heart Rate WHEN GIVEN THROUGH IV Physical Exam Vitals: Vital Signs Temp Pulse Resp BP Pulse Ox 11/24/19 13:56 77 18 130/86 98 11/24/19 13:35 85 L 11/24/19 13:16 71 18 116/81 98 11/24/19 12:30 76 18 109/70 97 11/24/19 12:00 78 20 118/93 96 11/24/19 11:59 97.1 F L 77 18 124/99 96 11/24/19 11:30 76 21 116/93 96 11/24/19 11:25 106/57 11/24/19 11:00 75 18 114/85 97 11/24/19 10:34 77 18 114/84 100 11/24/19 10:30 72 17 118/90 99 11/24/19 10:00 74 21 126/87 88 L 11/24/19 09:00 80 17 124/93 87 L 11/24/19 08:42 88 L 11/24/19 08:30 73 16 126/92 88 L 11/24/19 08:25 77 21 126/92 89 L 11/24/19 07:38 97.4 F L 75 18 126/93 96 Intake and Output 11/23/19 11/24/19 11/24/19 22:59 06:59 14:59 Other: Weight 61 kg PHYSICAL EXAMINATION: Patient is lying in the bed comfortably, no acute distress, awake alert and oriented.. HEENT: Normocephalic. Neck is supple. Pupils reactive. Nostrils clear. Oral cavity is moist. Ears reveal no drainage. Neck reveals no JVD, carotid bruits, or thyromegaly. CHEST EXAMINATION: Trachea is central. Symmetrical expansion. Bibasilar diminished air entry and crackles present. No wheezing or rhonchi. Lung lópez clear to auscultation and percussion. CARDIAC: Normal S1, S2 with no gallops. No murmurs ABDOMEN: Soft. Bowel sounds normal. No organomegaly. No abdominal bruits. Extremities: reveal no edema. No clubbing or cyanosis Neurologically awake, alert, oriented x3 with well-coordinated movements. No focal deficits noted Skin: No rash or skin lesions. Psychiatric: Coperative. Nonsuicidal Musculoskeletal: No joint swelling or deformity. Normal range of motion. Results CBC & Chem 7: 11/24/19 07:51 11/24/19 07:51 Labs: Abnormal Lab Results - Last 24 Hours (Table) 11/24/19 11/24/19 11/24/19 Range/Units 07:51 07:51 07:51 RBC 3.50 L (3.80-5.40) m/uL Hgb 9.8 L (11.4-16.0) gm/dL Hct 32.3 L (34.0-46.0) % MCHC 30.4 L (31.0-37.0) g/dL RDW 18.4 H (11.5-15.5) % PT 12.7 H (9.0-12.0) sec INR 1.3 H (<1.2) APTT 30.9 H (22.0-30.0) sec ABG pO2 (83-108) mmHg ABG HCO3 (21-25) mmol/L ABG Total CO2 (19-24) mmol/L ABG O2 Saturation (94-97) % Chloride 95 L (98-107) mmol/L BUN 61 H (7-17) mg/dL Creatinine 8.08 H* (0.52-1.04) mg/dL Glucose 111 H (74-99) mg/dL Amylase 152 H (30-110) U/L 11/24/19 Range/Units 10:08 RBC (3.80-5.40) m/uL Hgb (11.4-16.0) gm/dL Hct (34.0-46.0) % MCHC (31.0-37.0) g/dL RDW (11.5-15.5) % PT (9.0-12.0) sec INR (<1.2) APTT (22.0-30.0) sec ABG pO2 50 L* (83-108) mmHg ABG HCO3 27 H (21-25) mmol/L ABG Total CO2 28 H (19-24) mmol/L ABG O2 Saturation 82.2 L (94-97) % Chloride (98-107) mmol/L BUN (7-17) mg/dL Creatinine (0.52-1.04) mg/dL Glucose (74-99) mg/dL Amylase (30-110) U/L Thrombosis Risk Factor Assmnt - DVT/VTE Prophylaxis DVT/VTE Prophylaxis: Pharmacologic Prophylaxis ordered Assessment and Plan Assessment: Shortness of breath secondary to pulmonary vascular congestion and fluid overload. Acute on Chronic CHF with systolic dysfunction ejection fraction 25% Abdominal discomfort likely due to distention and fluid load ESRD on hemodialysis Wednesday and Wednesday left upper AV fistula hypertension Anemia of chronic disease baseline hemoglobin around 7.2. Currently 9.8 Severe tricuspid regurgitation, [id number] mitral regurgitation and severe pulmonary hypertension Polycystic kidney disease. Failed renal transplant Vitamin D deficiency Chronic low back pain Ovarian cysts, irregular menses. DVT prophylaxis Previous history of smoking plan: Patient was started on hemodialysis. Continue with home blood pressure medications. Continue with multivitamins and PhosLo. Continue with breathing treatments and monitor H&H. Nephrology is on board. Further recommendations based on the clinical course. Time with Patient: Greater than 30
[2019-11-25] MEDS: MORPHINE SULFATE 4 MG/ML SYRINGE IV PRN ×5 (04:14→21:15)
[2019-11-25] MEDS: hydrALAZINE HCL 50 MG TAB PO SCH ×3 (08:06→21:15)
[2019-11-25] MEDS: CARVEDILOL 12.5 MG TAB PO SCH ×2 (08:06→21:15)
[2019-11-25] MEDS: HEPARIN SODIUM,PORCINE 5,000 UNIT/ML 1 ML VIAL SQ SCH ×2 (08:06→21:26)
[2019-11-25 08:08] LABS: Anisocytosis Slight; Basophils # (A) 0.1 k/uL (0-0.2); Basophils % (A) 1 %; Eosinophils # (A) 0.4 k/uL (0-0.7); Eosinophils % (A) 9 %; HCT 30.8 % (34.0-46.0); HGB 9.4 gm/dL (11.4-16.0); Hypochromasia Marked; Lymphocytes # (A) 0.9 k/uL (1.0-4.8); Lymphocytes % (A) 20 %; MCH 28.8 pg (25.0-35.0); MCHC 30.4 g/dL (31.0-37.0); MCV 94.7 fL (80.0-100.0); Mean Platelet Volume 9.5; Monocytes # (A) 0.3 k/uL (0-1.0); Monocytes % (A) 5 %; Neutrophils # (A) 2.8 k/uL (1.3-7.7); Neutrophils % (A) 63 %; Platelet Count 128 k/uL (150-450); RBC 3.26 m/uL (3.80-5.40); RDW 18.1 % (11.5-15.5); WBC 4.5 k/uL (3.8-10.6)
[2019-11-25] MEDS: CALCIUM ACETATE 667 MG TAB PO SCH ×3 (08:14→17:18)
[2019-11-25 08:17] LABS: Calcium 8.6 mg/dL (8.4-10.2); Potassium 5.1 mmol/L (3.5-5.1)
[2019-11-25] MEDS ORDERED: CINACALCET 30 MG TAB PO SCH (09:00)
[2019-11-25] MEDS ORDERED: PANTOPRAZOLE 40 MG/10 ML VIAL IV SCH (09:00)
[2019-11-25] MEDS ORDERED: DARBEPOETIN ALFA 60 MCG/0.3 ML SYRINGE SQ SCH (13:00)
--- NOTE | 2019-11-25 13:19 | CONS ---
CONSULTATION REASON FOR CONSULT: End-stage renal disease. HISTORY OF PRESENT ILLNESS: Patient is a 29-year-old female with end-stage renal disease, on hemodialysis on a Wednesday, Wednesday, Wednesday schedule, admitted to the hospital with complaints of significant shortness of breath and volume overload. Patient was dialyzed yesterday. She had about 4 L of fluid removed. She will be dialyzed again today. At this point, patient states she may be more than 10 kg off her dry weight. The patient states that she has not missed any treatments. She denies any fever or chills. No chest pains. She has had some abdominal pain secondary to significant abdominal distention and shortness of breath associated with fluid overload. PAST MEDICAL HISTORY: End-stage renal disease, anemia of chronic disease, history of previous failed transplant, history of CHF, cardiomyopathy, EF 35-40 percent, chronic back pain, ovarian cyst. PAST SURGICAL HISTORY: Cardiac catheterization, hernia repair, failed kidney transplant, PermCath placement and removal, current left arm AV graft, teeth extraction. SOCIAL HISTORY: Negative for smoking, drug abuse or alcohol abuse. MEDICATIONS: Medications currently include Coreg, hydralazine, Sensipar, Tylenol Procardia, Zantac, Xanax, Ambien. ALLERGIES: HYDRALAZINE. PHYSICAL EXAMINATION: Patient is comfortable, awake, alert, oriented x3, not in any acute distress. She is complaining of shortness of breath. Face appears to be puffy. Blood pressure was 141/91, heart rate 74 per minute. She is afebrile. ABDOMEN: Soft, distended with abdominal wall edema. Exam of lower extremities shows no significant edema. Breath sounds are heard bilaterally. WATER SYSTEM OPERATOR exam grossly intact. LAB: Show hemoglobin 9.4, sodium 136, potassium 5.1, serum creatinine 7.31. ASSESSMENT: 1. End-stage renal disease, on hemodialysis on a Wednesday, Wednesday, Wednesday schedule. Patient had dialysis again today for volume overload. 2. Severe volume overload, receiving extra treatment today. Next treatment will be on Wednesday. 3. Hypertension, partly volume sensitive. 4. Chronic kidney disease mineral bone disorder. 5. Anemia of chronic disease. PLAN: Repeat hemodialysis today goal UF 3-4 L. Add Aranesp for anemia and if patient is still hospitalized, she will receive another treatment on Wednesday11/28/2019. MMODL / IJN: [id number] /
[2019-11-25] MEDS ORDERED: diphenhydrAMINE 50 MG/ML 1 ML VIAL IVP STA (14:39)
[2019-11-25 21:14] VITALS: RESP 18
[2019-11-26] MEDS: MORPHINE SULFATE 4 MG/ML SYRINGE IV PRN ×2 (01:12→07:51)
[2019-11-26] MEDS: CARVEDILOL 12.5 MG TAB PO SCH (07:52)
[2019-11-26] MEDS: HEPARIN SODIUM,PORCINE 5,000 UNIT/ML 1 ML VIAL SQ SCH (07:52)
[2019-11-26] MEDS: CALCIUM ACETATE 667 MG TAB PO SCH (07:52)
[2019-11-26] MEDS: hydrALAZINE HCL 50 MG TAB PO SCH (07:52)
[2019-11-26 08:26] VITALS: BP 147/95; PULSE 84; TEMP 98.4
[2019-11-26] MEDS ORDERED: PANTOPRAZOLE 40 MG TABLET PO SCH (09:00)
--- NOTE | 2019-11-26 12:18 | PN ---
PROGRESS NOTE Patient is seen for followup for end-stage renal disease. She was admitted with severe volume overload. Patient had 4 L of ultrafiltration on admission and then again yesterday. She states she is feeling better, although she remains with significant abdominal edema and abdominal wall edema. PHYSICAL EXAMINATION: This morning blood pressure was 147/95, heart rate 84 per minute, she is afebrile. Examination of lower extremities shows no significant edema. Patient does have abdominal distention with abdominal wall edema noted. Her facial edema has decreased. GRINDING ROOM SUPERVISOR exam grossly intact. LABS: Show hemoglobin 9.4, sodium 136, potassium 5.1, from yesterday serum creatinine was 7.3. ASSESSMENT: 1. End-stage renal disease, on hemodialysis on a Wednesday, Wednesday, Wednesday schedule. Patient will be dialyzed tomorrow. However, she could be discharged and follow up as outpatient for her regular treatment tomorrow. We will plan for about 4 L of ultrafiltration tomorrow. 2. Severe volume overload, status post consecutive dialysis and removal of about 8 L over the last 2 days. I have advised the patient to continue with her additional added treatment on Saturdays for fluid removal. Apparently this was stopped about two weeks ago. 3. Congestive heart failure, currently improved. 4. Chronic kidney disease mineral bone disorder. PLAN: Patient can be discharged and follow up as outpatient for hemodialysis tomorrow. Goal UF tomorrow about 4 L as outpatient. MMODL / IJN: [id number] /
--- NOTE | 2019-11-28 01:43 | CDI ---
Documentation Clarification Form Date: 11/28/2019 From: Randy Alas Phone: If you have a question about this query, please contact Siria Valdez, Winding Inspector And Tester at [phone] between 8am and 5pm. Admit Date: 11/24/2019 Discharge Date: 11/26/2019 Patient Name: Rosi Winslow Visit Number: [id number] ATTENTION: The Clinical Documentation Specialists (CDI) and [facility] Coding Staff appreciate your assistance in clarifying documentation. Please respond to the clarification below the line at the bottom and electronically sign. The CDI & [facility] Coding staff will review the response and follow-up if needed. Please note: Queries are made part of the Legal Health Record. If you have any questions, please contact the author of this message via ITS. Dear Rhys Tobin., Coronavirus (PCR) testing was performed on this patient. All patients with Coronavirus testing require documentation of results/clinical significance. Patient history/risk factors: ESRD, CHF, Volume overload. Clinical Indicators: Patient present with Volume overload 11/20/2019 CXR: "oderate cardiomegaly and increased interstitial change, possible pulmonary vascular congestion". 11/23 Covid 19 negative. Treatment:Severe volume overload, status post consecutive dialysis and removal of about 8 L over the last 2 days.I have advised the patient to continue with her additional added treatment on Saturdays for fluid removal.Apparently this was stopped about two weeks ago. In order to capture the severity of condition, please clarify if the above treatment/clinical indicators signify regarding lab result: COVID-19 ruled out COVID-19 false negative test result, treated for Covid-19 based on clinical indicators (please specify clinical indicators) Other, please specify Unable to determine not my pt MTDD
== END 2019-11-26 12:08 | disposition home or self-care (01) | DRG 291 ==
LOC: EC 07:36 → 3SCARD 10:00 → 4SSUR 15:16
PROVIDERS: ADMIT Internal Medicine; ATTEND Internal Medicine
PROC: 5A1D70Z Performance of Urinary Filtration, Intermittent, Less than 6 Hours Per Day (ICD-10-PCS; principal; 2019-11-24)
DX: I13.2 Hypertensive heart and chronic kidney disease with heart failure and with stage 5 chronic kidney disease, or end stage renal disease (principal); I50.23 Acute on chronic systolic (congestive) heart failure; N18.6 End stage renal disease; Q61.3 Polycystic kidney, unspecified; F41.9 Anxiety disorder, unspecified; F32.9 Major depressive disorder, single episode, unspecified; E55.9 Vitamin D deficiency, unspecified; G89.29 Other chronic pain; Z20.828 Contact with and (suspected) exposure to other viral communicable diseases; I08.1 Rheumatic disorders of both mitral and tricuspid valves; I27.20 Pulmonary hypertension, unspecified; I42.8 Other cardiomyopathies; J45.909 Unspecified asthma, uncomplicated; M89.9 Disorder of bone, unspecified; N83.209 Unspecified ovarian cyst, unspecified side; D63.8 Anemia in other chronic diseases classified elsewhere; Z87.891 Personal history of nicotine dependence; Z79.899 Other long term (current) drug therapy; Z99.2 Dependence on renal dialysis; Z88.8 Allergy status to other drugs, medicaments and biological substances; Z98.890 Other specified postprocedural states
CPT/HCPCS: 36415; 36600; 71046; 74018; 80048; 80053; 82150; 82805; 83690; 83880; 84702; 85025; 85610; 85730; 87635; 90935; 93005; 96374; 96375; 96376; 99291

== ENCOUNTER 2019-12-24 13:50 | Emergency (ER) | payer BC, MEDICARE, OTHER ==
[2019-12-24 14:18] VITALS: TEMP 98.2
[2019-12-24] MEDS ORDERED: LORazepam 1 MG TAB PO STA (14:55)
--- NOTE | 2019-12-24 15:13 | ED ---
General Adult HPI <Abhijit Winslow - Last Filed: 12/24/19 17:19> - General Source: patient, RN notes reviewed, old records reviewed Mode of arrival: ambulatory Limitations: no limitations <Yovani Bowman - Last Filed: 12/24/19 18:49> - General Chief complaint: Extremity Problem,Nontraumatic Stated complaint: fistula problems Time Seen by Provider: 12/24/19 14:37 - History of Present Illness Initial comments: 29-year-old dialysis patient. The ED with possible injury to her left AV fistula. Patient reports that she picked up a box of tissues which was not have with her left hand for she has an upper arm AV fistula she then developed a new distal aneurysm with some bruising. Approximately 5 inches in diameter. Denies any other complaints at this time. Is very anxious. Systemic: Pt denies fatigue, fever/chills, rash. Pt denies weakness, night sweats, weight loss. Neuro: Pt denies headache, visual disturbances, syncope or pre-syncope. HEENT: Pt denies ocular discharge or irritation, otalgia, rhinorrhea, pharyngitis or notable lymphadenopathy. Cardiopulmonary: Pt denies chest pain, SOB, heart palpitations, dyspnea on exertion. Abdominal/GI: Pt denies abdominal pain, n/v/d. : Pt denies dysuria, burning w/ urination, frequency/urgency. Denies new onset urinary or bowel incontinence. MSK: Pt denies myalgia, loss of strength or function in extremities. Neuro: Pt denies new onset weakness, paresthesias. (Yovani Bowman) - Related Data Home Medications Medication Instructions Recorded Confirmed Albuterol Sulfate [Proair Hfa] 2 puff INHALATION RT-Q6H PRN 01/22/16 11/24/19 Carvedilol [Coreg] 25 mg PO BID 05/28/18 11/24/19 hydrALAZINE HCL [Apresoline] 100 mg PO TID 11/16/18 11/24/19 Cinacalcet HCl [Sensipar] 60 mg PO TUTHSA 02/26/19 11/24/19 Acetaminophen Tab [Tylenol] 650 mg PO Q6H PRN 06/10/19 11/24/19 NIFEdipine [Procardia XL] 60 mg PO DAILY 06/10/19 11/24/19 ALPRAZolam [Xanax] 0.25 mg PO DAILY PRN 11/17/19 11/24/19 Ranitidine HCl [Zantac] 150 mg PO DAILY PRN 11/17/19 11/24/19 Zolpidem Tartrate [Ambien] 5 mg PO HS PRN 11/17/19 11/24/19 Previous Rx's Medication Instructions Recorded Darbepoetin Aamir [Aranesp] 60 mcg SQ Q7D syringe 11/26/19 Allergies Allergy/AdvReac Type Severity Reaction Status Date / Time hydralazine AdvReac Rapid Verified 12/24/19 14:17 Heart Rate WHEN GIVEN THROUGH IV Review of Systems ROS Other: All systems not noted in ROS Statement are negative. <Abhijit Winslow - Last Filed: 12/24/19 17:19> ROS Other: All systems not noted in ROS Statement are negative. <Yovani Bowman - Last Filed: 12/24/19 18:49> ROS Statement: Those systems with pertinent positive or pertinent negative responses have been documented in the HPI. 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 Past Anesthesia/Blood Transfusion Reactions: No Reported Reaction Additional Past Anesthesia/Blood Transfusion Reaction / Comment(s): Pt has received blood in past without reaction. Past Psychological History: Anxiety, Depression Smoking Status: Never smoker Past Alcohol Use History: None Reported Past Drug Use History: Marijuana - Past Family History Father Family Medical History: No Reported History Additional Family Medical History / Comment(s): Father is healthy and is 62 yrs old. Mother Family Medical History: No Reported History Additional Family Medical History / Comment(s): Mother is healthy and is 60 yrs old. <Yovani Bowman - Last Filed: 12/24/19 18:49> General Exam Limitations: no limitations <Yovani Bowman - Last Filed: 12/24/19 18:49> - General Exam Comments Initial Comments: Constitutional: NAD, AOX3, Pt has pleasant affect. HEENT: NC/AT, trachea midline, neck supple, no lymphadenopathy. Posterior pharynx non erythematous, without exudates. External ears appear normal, without discharge. Mucous membranes moist. Eyes PERRLA, EOM intact. There is no scleral icterus. No pallor noted. Cardiopulmonary: RRR, no murmurs, rubs or gallops, no JVD noted. Lungs CTAB in anterior and posterior lópez. No peripheral edema. Abdominal exam: Abdomen soft and non-distended. Abdomen non-tender to palpation in all 4 quadrants. Bowel sounds active in LLQ. No hepatosplenomegaly. No ecchymosis Neuro: CN II-XII intact. No nuchal rigidity. No raccon eyes, no keith sign, no hemotympanum. No cervical spinal tenderness. MSK: AV fistula noted left upper biceps region. On the distal aspect proximal to the antecubital fossa there is a reportedly new proximal 1.5 cm aneurysm with some localized ecchymoses. Radial pulses intact. Thrill is present. Full active ROM in upper and lower extremities.. (Yovani Bowman) Course <Abhijit Winslow - Last Filed: 12/24/19 17:19> Vital Signs 12/24/19 12/24/19 12/24/19 14:15 16:42 17:48 Temperature 98.2 F Pulse Rate 142 H 125 H 112 H Respiratory 18 16 16 Rate Blood Pressure 157/101 151/109 158/112 O2 Sat by Pulse 99 99 100 Oximetry - Reevaluation(s) Reevaluation #1: 12/24/19 17:19 Patient was earlier also valuated by myself, Dr. Winslow. Patient does have area of swelling approximately 3+ centimeters distal to the fistula. There is still present throughout the fistula. Radial pulse intact. Case was discussed with Dr. Cazares who did recommend ultrasound. Case was again discussed w Dr cazares will follow-up with the patient on Wednesday in the office. (Abhijit Winslow) Medical Decision Making <Yovani Bowman - Last Filed: 12/24/19 18:49> - Medical Decision Making 29-year-old dialysis patient. The ED with possible injury to her left AV fistula. Patient reports that she picked up a box of tissues which was not have with her left hand for she has an upper arm AV fistula she then developed a new distal aneurysm with some bruising. Approximately 5 inches in diameter. Denies any other complaints at this time. Is very anxious. Patient will sign displayed mild tachycardia likely secondary to anxiety. Hypertension. Patient administered home dose of carvedilol and hydralazine. Physical exam displayed: V fistula noted left upper biceps region. On the distal aspect proximal to the antecubital fossa there is a reportedly new proximal 1.5 cm aneurysm with some localized ecchymoses. Radial pulses intact. Ultrasound consistent with pseudoaneurysm. Plastic surgery was contacted by Dr. Winslow. Recommended outpatient follow-up. Patient heart rate improved to 99. Blood pressure does remain elevated 150/110. Patient declines any further interventions requesting discharge. States that she'll monitor blood pressure at home. Remained asymptomatic. Will return to ER if condition worsens. Case discussed with Dr. Winslow. (Yovani Bowman) Disposition <Abhijit Winslow - Last Filed: 12/24/19 17:19> Is patient prescribed a controlled substance at d/c from ED?: No <Yovani Bowman - Last Filed: 12/24/19 18:49> Clinical Impression: AV fistula, Hypertension Disposition: HOME SELF-CARE Condition: Stable Instructions (If sedation given, give patient instructions): Hemodialysis (DC), Hypertension (ED) Additional Instructions: Follow-up with Dr. Cazares on Wednesday in his office. Do not have fistula cannulated on wednesday. Continue to monitor blood pressure at home and take medications as directed. Return to ED if condition worsens. Referrals: Mary Baez MD [Primary Care Provider] - 1-2 days Omar Cazares DO [STAFF PHYSICIAN] - 1-2 days
--- NOTE | 2019-12-24 16:42 | US ---
EXAMINATION TYPE: US extremity nonvasc mass LT DATE OF EXAM: 12/24/2019 COMPARISON: NONE CLINICAL HISTORY: Evaluate fistula. Patient has AV fistula at brachial artery. Picked up a box and im mediately noticed swelling and bruising at the antecubital fossa near her fistula At the area of the patient's fistula, there is an irregular, complex appearing fluid collection with vascularity visualized Grayscale, color Doppler imaging performed. To-and-fro flow identified at the site of patient's sympt omatology. IMPRESSION: Findings likely correspond to pseudoaneurysm, consider vascular surgery consult
[2019-12-24] MEDS ORDERED: CARVEDILOL 12.5 MG TAB PO STA (16:55)
[2019-12-24] MEDS ORDERED: hydrALAZINE HCL 50 MG TAB PO STA (17:50)
--- NOTE | 2019-12-24 18:57 | ED ---
Medical Decision Making - Medical Decision Making Pt states that blood pressure and heart rate are always elevated and that this is not unusual for her. Continues to deny any chest pain, headache, vision changes, sob. Denies any chance of . Disposition Clinical Impression: AV fistula, Hypertension Disposition: HOME SELF-CARE Condition: Stable Instructions (If sedation given, give patient instructions): Hypertension (ED), Hemodialysis (DC) Additional Instructions: Follow-up with Dr. Saldaña on Wednesday in his office. Do not have fistula cannulated on wednesday. Continue to monitor blood pressure at home and take medications as directed. Return to ED if condition worsens. Is patient prescribed a controlled substance at d/c from ED?: No Referrals: Mary Baez MD [Primary Care Provider] - 1-2 days Omar Saldaña DO [STAFF PHYSICIAN] - 1-2 days
[2019-12-24 19:14] VITALS: BP 150/110; PULSE 110; RESP 18
== END 2019-12-24 19:14 | disposition home or self-care (01) ==
LOC: EC 13:50
DX: S40.022A Contusion of left upper arm, initial encounter (principal); T82.590A Other mechanical complication of surgically created arteriovenous fistula, initial encounter; I13.2 Hypertensive heart and chronic kidney disease with heart failure and with stage 5 chronic kidney disease, or end stage renal disease; N18.6 End stage renal disease; I43 Cardiomyopathy in diseases classified elsewhere; F41.9 Anxiety disorder, unspecified; R00.0 Tachycardia, unspecified; J45.909 Unspecified asthma, uncomplicated; I50.9 Heart failure, unspecified; Z79.51 Long term (current) use of inhaled steroids; Z99.2 Dependence on renal dialysis; Z79.899 Other long term (current) drug therapy; Z88.8 Allergy status to other drugs, medicaments and biological substances; Z95.5 Presence of coronary angioplasty implant and graft; X50.0XXA Overexertion from strenuous movement or load, initial encounter; Y93.89 Activity, other specified
CPT/HCPCS: 99284

== ENCOUNTER 2020-04-29 21:33 | Emergency (ER) | payer MEDICARE, OTHER ==
[2020-04-30] MEDS ORDERED: MORPHINE SULFATE 2 MG/ML SYRINGE IVP STA (00:45)
--- NOTE | 2020-04-30 01:35 | ED ---
General Adult HPI - General Chief complaint: Abdominal Pain Stated complaint: Abd Pain Time Seen by Provider: 04/29/20 23:07 Source: patient Mode of arrival: wheelchair Limitations: no limitations - History of Present Illness Initial comments: 29-year-old male patient presents to the emergency department today for evaluation of pelvic pain. Patient states that symptoms started approximately 3-4 weeks ago. States that the pain increases with sexual intercourse. States it feels like a deep sharp stabbing pain that does take some time to resolve after that. She states she has intermittent spotting which is not unusual for her. Denies any abnormal discharge. Denies any hematuria, dysuria, urinary frequency, urinary urgency. States that she did see her primary care physician on Wednesday for evaluation of this and did have a pelvic exam and cultures taken. Patient states that she was told everything appeared to be normal. Patient denies any nausea or vomiting. Denies fever or chills. Denies any significant discomfort at rest. Patient denies any recent rash, cough, shortness of breath, chest pain, diarrhea, constipation, back pain, numbness, tingling, dizziness, weakness, headache, visual changes, or any other complaints. - Related Data Home Medications Medication Instructions Recorded Confirmed Albuterol Sulfate [Proair Hfa] 2 puff INHALATION RT-Q6H PRN 01/22/16 11/24/19 Carvedilol [Coreg] 25 mg PO BID 05/28/18 11/24/19 hydrALAZINE HCL [Apresoline] 100 mg PO TID 11/16/18 11/24/19 Cinacalcet HCl [Sensipar] 60 mg PO TUTHSA 02/26/19 11/24/19 Acetaminophen Tab [Tylenol] 650 mg PO Q6H PRN 06/10/19 11/24/19 NIFEdipine [Procardia XL] 60 mg PO DAILY 06/10/19 11/24/19 ALPRAZolam [Xanax] 0.25 mg PO DAILY PRN 11/17/19 11/24/19 Zolpidem Tartrate [Ambien] 5 mg PO HS PRN 11/17/19 11/24/19 raNITIdine HCL [Zantac] 150 mg PO DAILY PRN 11/17/19 11/24/19 Previous Rx's Medication Instructions Recorded Darbepoetin Aamir [Aranesp] 60 mcg SQ Q7D syringe 11/26/19 Allergies Allergy/AdvReac Type Severity Reaction Status Date / Time hydralazine AdvReac Rapid Verified 12/24/19 14:17 Heart Rate WHEN GIVEN THROUGH IV Review of Systems ROS Statement: Those systems with pertinent positive or pertinent negative responses have been documented in the HPI. ROS Other: All systems not noted in ROS Statement are negative. 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 Past Anesthesia/Blood Transfusion Reactions: No Reported Reaction Additional Past Anesthesia/Blood Transfusion Reaction / Comment(s): Pt has received blood in past without reaction. Past Psychological History: Anxiety, Depression Smoking Status: Never smoker Past Alcohol Use History: None Reported Past Drug Use History: Marijuana - Past Family History Father Family Medical History: No Reported History Additional Family Medical History / Comment(s): Father is healthy and is 62 yrs old. Mother Family Medical History: No Reported History Additional Family Medical History / Comment(s): Mother is healthy and is 60 yrs old. General Exam Limitations: no limitations General appearance: alert, in no apparent distress, other (Well-developed, well- nourished female in no acute distress. Initial vital signs include pulse 65, respirations 20, blood pressure 109/78, pulse ox 99% on room air.) Respiratory exam: Present: normal lung sounds bilaterally. Absent: respiratory distress, wheezes, rales, rhonchi, stridor Cardiovascular Exam: Present: regular rate, normal rhythm, normal heart sounds. Absent: systolic murmur, diastolic murmur, rubs, gallop, clicks GI/Abdominal exam: Present: soft, tenderness (Mild suprapubic tenderness), normal bowel sounds. Absent: distended, guarding, rebound, rigid Neurological exam: Present: alert, oriented X3, CN II-XII intact Psychiatric exam: Present: normal affect, normal mood Skin exam: Present: warm, dry, intact, normal color. Absent: rash Course Vital Signs 04/29/20 21:44 Pulse Rate 65 Respiratory 20 Rate Blood Pressure 109/78 O2 Sat by Pulse 99 Oximetry Medical Decision Making - Medical Decision Making 29-year-old female patient presents to the emergency department today for evaluation of pelvic pain especially with intercourse. Physical examination did reveal mild suprapubic tenderness. She did have pelvic exam with cultures taken on Wednesday at her primary care physician's office. We are unable to obtain urinalysis due to patient's anuric status with her end-stage renal disease. Pelvic ultrasound with Doppler was obtained and did show 2 large avascular or hypovascular lesions adjacent to the right and left ovaries. These appear to be possibly hemorrhagic cyst. No evidence for torsion at this time. Patient is resting comfortably in bed. I did discuss findings results with her. She'll be discharged to follow-up with gynecology for further evaluation as soon as possible. She is instructed to follow-up with her primary care physician in one to 2 days. Return parameters were discussed in detail. She verbalizes understanding and agrees with this plan. - Lab Data Lab Results 04/30/20 Range/Units 00:17 HCG, Qual Not Detected - Radiology Data Radiology results: report reviewed, image reviewed Pelvic ultrasound is obtained. Report was reviewed in its entirety. Impression by Dr. Arnold shows a large avascular hypervascular complex fluid collection adjacent to the right ovary this could be a large complex hemorrhagic ovarian cyst. Also consider endometriosis. I do not suspect tumor since this is somewhat elongated and has smaller area of similar appearance on the opposite ovary. There is a smaller similar appearing area adjacent to the left ovary. Disposition Clinical Impression: Hemorrhagic cysts of both ovaries, Deep dyspareunia Disposition: HOME SELF-CARE Condition: Good Instructions (If sedation given, give patient instructions): Ovarian Cyst (ED) Additional Instructions: Call OBGYN in the morning for an appointment. Let them know that you were diagnosed with "Hemorrhagic ovarian cyst measuring 7cm" and that you have been having significant pelvic pain with intercourse. Follow-up with your primary care physician for recheck in one to days. Return to the emergency department immediately for any new, worsening, or concerning symptoms. Is patient prescribed a controlled substance at d/c from ED?: No Referrals: Karo Alicea MD [Primary Care Provider] - 1-2 days Davion Corrigan MD [STAFF PHYSICIAN] - 1-2 days Time of Disposition: 02:11
--- NOTE | 2020-04-30 01:43 | US ---
EXAMINATION TYPE: US transvaginal DATE OF EXAM: 04/30/2020 COMPARISON: CT, US CLINICAL HISTORY: vaginal pain. Vaginal bleeding x 5 days. Pain. Hx ovarian cyst. LMP unknown. TECHNIQUE: Transvaginal (TV). Date of LMP: Unknown. EXAM MEASUREMENTS: Uterus: 6.8 x 4.2 x 3.9 cm Endometrial Stripe: 1.35 cm Right Ovary: 3.8 x 3.0 x 2.9 cm Left Ovary: 3.8 x 3.1 x 2.2 cm 1. Uterus: Appears to be positioned retroverted/obliqued. Appears heterogeneous. Possible arcuate ap pearance? Subcentimeter anechoic area seen in cervix. 2. Endometrium: Measures 1.35 cm. ?Arcuate uterus. 3. Right Ovary: Measures upper limits of normal versus slightly enlarged. Area of mixed echogenicity seen measurin.9 x 1.9 x 1.8 cm. 4. Left Ovary: Measures upper limits of normal versus slightly enlarged. Area of mixed echogenicity seen measurin.6 x 2.4 x 1.7 cm. Spectral, color and waveform doppler imaging arterial and venous flow within the ovaries. 5. Bilateral Adnexa: There appears to be a heterogeneous, complex area adjacent to the right ovary me asuring approximately: 7.3 x 7.3 x 2.8 cm. There appears to be a heterogeneous, complex area adjacent to the left ovary measuring approximately: 3.2 x 5.0 x 2.3 cm. 6. Posterior cul-de-sac: Minimal anechoic fluid is seen. IMPRESSION: There is large avascular or hypovascular complex fluid collection adjacent to the right ovary this co uld be a large complex hemorrhagic ovarian cyst. Also consider endometriosis. I do not suspect a tumo r since this is somewhat elongated and has smaller area of similar appearance on the opposite ovary. There is a similar smaller appearing area adjacent to the left ovary.
[2020-04-30 02:38] VITALS: BP 136/74; PULSE 87; RESP 15; TEMP 98.6
== END 2020-04-30 02:38 | disposition home or self-care (01) ==
LOC: EC 21:33
DX: N83.202 Unspecified ovarian cyst, left side (principal); N83.201 Unspecified ovarian cyst, right side; N94.12 Deep dyspareunia; I13.2 Hypertensive heart and chronic kidney disease with heart failure and with stage 5 chronic kidney disease, or end stage renal disease; N18.6 End stage renal disease; I50.9 Heart failure, unspecified; J45.909 Unspecified asthma, uncomplicated; G89.29 Other chronic pain; M54.5 Low back pain; F41.9 Anxiety disorder, unspecified; F32.9 Major depressive disorder, single episode, unspecified; Z79.899 Other long term (current) drug therapy; Z88.8 Allergy status to other drugs, medicaments and biological substances; Z99.2 Dependence on renal dialysis; Z94.0 Kidney transplant status
CPT/HCPCS: 36415; 84703; 93975; 76830; 99284; 96374; J2270

== ENCOUNTER 2020-05-01 10:07 | Emergency (ER) | payer MEDICARE, OTHER ==
[2020-05-01 10:15] VITALS: TEMP 98.4
[2020-05-01 10:28] VITALS: RESP 18
--- NOTE | 2020-05-01 10:56 | ED ---
General Adult HPI - General Chief complaint: Recheck/Abnormal Lab/Rx Stated complaint: ABD PAIN Time Seen by Provider: 05/01/20 10:26 Source: patient, RN notes reviewed, old records reviewed Mode of arrival: wheelchair Limitations: no limitations - History of Present Illness Initial comments: 29-year-old female with end-stage renal disease, hypertension presenting for evaluation of low blood pressure. Patient was at dialysis this morning, she is scheduled Wednesday. She'll total of 2.6 L removed and then was given 600 L of normal saline for hypotension. She did have a syncopal episode associated with this low pressure. She was sent to the emergency department for evaluation. She denies fever. She states her breathing is quite good, no cough or dyspnea. No central chest pain. Patient currently on Coreg, nifedipine, and hydralazine - Related Data Home Medications Medication Instructions Recorded Confirmed Albuterol Sulfate [Proair Hfa] 2 puff INHALATION RT-Q6H PRN 01/22/16 05/01/20 Carvedilol [Coreg] 25 mg PO BID 05/28/18 05/01/20 hydrALAZINE HCL [Apresoline] 100 mg PO TID 11/16/18 05/01/20 Cinacalcet HCl [Sensipar] 60 mg PO DIRECTED 02/26/19 05/01/20 ALPRAZolam [Xanax] 0.25 mg PO HS PRN 11/17/19 05/01/20 Zolpidem Tartrate [Ambien] 5 mg PO HS PRN 11/17/19 05/01/20 Calcium Acetate [Phoslo] 667 - 1,334 mg PO TID BETWEEN MEALS 05/01/20 05/01/20 Calcium Acetate [Phoslo] 667 mg PO TID 05/01/20 05/01/20 Lactulose 20 gm PO TID 05/01/20 05/01/20 Lidocaine-Prilocaine Cream [Emla 1 applic TOPICAL DAILY PRN 05/01/20 05/01/20 Cream 2.5%/2.5%] NIFEdipine [Procardia XL] 90 mg PO DAILY 05/01/20 05/01/20 Ondansetron [Zofran] 8 mg PO Q8H PRN 05/01/20 05/01/20 Pantoprazole Sodium [Protonix] 40 mg PO DAILY 05/01/20 05/01/20 Sevelamer [Renvela] 1,600 mg PO TID 05/01/20 05/01/20 Sodium Polystyrene Sulfonate 15 gm PO SUTUTHSA 05/01/20 05/01/20 [Kayexalate] Allergies Allergy/AdvReac Type Severity Reaction Status Date / Time hydralazine AdvReac Rapid Verified 05/01/20 12:23 Heart Rate WHEN GIVEN THROUGH IV Review of Systems ROS Statement: Those systems with pertinent positive or pertinent negative responses have been documented in the HPI. ROS Other: All systems not noted in ROS Statement are negative. 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 Past Anesthesia/Blood Transfusion Reactions: No Reported Reaction Additional Past Anesthesia/Blood Transfusion Reaction / Comment(s): Pt has received blood in past without reaction. Past Psychological History: Anxiety, Depression Smoking Status: Never smoker Past Alcohol Use History: None Reported Past Drug Use History: Marijuana - Past Family History Father Family Medical History: No Reported History Additional Family Medical History / Comment(s): Father is healthy and is 62 yrs old. Mother Family Medical History: No Reported History Additional Family Medical History / Comment(s): Mother is healthy and is 60 yrs old. General Exam Limitations: no limitations General appearance: alert, in no apparent distress Head exam: Present: atraumatic, normocephalic Eye exam: Present: normal appearance, PERRL ENT exam: Present: normal exam Neck exam: Present: normal inspection. Absent: tenderness, meningismus Respiratory exam: Absent: respiratory distress, rales Cardiovascular Exam: Present: normal rhythm, tachycardia GI/Abdominal exam: Present: soft. Absent: distended, tenderness, guarding Extremities exam: Present: normal inspection, normal capillary refill. Absent: pedal edema Neurological exam: Present: alert, oriented X3. Absent: motor sensory deficit Psychiatric exam: Present: normal affect, normal mood Skin exam: Present: warm, dry, intact. Absent: cyanosis, diaphoretic Course Vital Signs 05/01/20 05/01/20 10:13 10:25 Temperature 98.4 F 98.4 F Pulse Rate 113 H 103 H Respiratory 16 18 Rate Blood Pressure 92/59 91/62 O2 Sat by Pulse 100 99 Oximetry EKG Findings - EKG Comments: EKG Findings:: EKG: Normal sinus rhythm, rate of 100, LVH, prolonged QT, TN interval 158, QRS duration 92, QTC [address] segment elevation. Medical Decision Making - Medical Decision Making 29 yo female near-syncope, low blood pressure, patient had ultrafiltration at 2.8 L at hemodialysis today. While she is well-appearing, blood pressure is 90 systolic on initial evaluation. She has a heart rate around 100. Patient really has no complaints. States her breathing is the best spine and some time. Chest x-ray shows mild pulmonary vascular congestion, hemoglobin is stable, her BNP is 7000 which is the best plan and months. 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 Kirby. They will monitor the that fluid off at hemodialysis on Wednesday. Stable for discharge at this time. - Lab Data Result diagrams: 05/01/20 11:32 05/01/20 11:32 Lab Results 05/01/20 05/01/20 05/01/20 Range/Units 11:32 11:32 11:32 WBC 7.6 (3.8-10.6) k/uL RBC 3.90 (3.80-5.40) m/uL Hgb 10.9 L (11.4-16.0) gm/dL Hct 35.7 (34.0-46.0) % MCV 91.5 (80.0-100.0) fL MCH 28.0 (25.0-35.0) pg MCHC 30.6 L (31.0-37.0) g/dL RDW 17.5 H (11.5-15.5) % Plt Count 302 (150-450) k/uL Neutrophils % 72 % Lymphocytes % 10 % Monocytes % 6 % Eosinophils % 9 % Basophils % 1 % Neutrophils # 5.4 (1.3-7.7) k/uL Lymphocytes # 0.8 L (1.0-4.8) k/uL Monocytes # 0.5 (0-1.0) k/uL Eosinophils # 0.7 (0-0.7) k/uL Basophils # 0.1 (0-0.2) k/uL Hypochromasia Slight Anisocytosis Slight PT 9.6 (9.0-12.0) sec INR 0.9 (<1.2) APTT 28.2 (22.0-30.0) sec Sodium 136 L (137-145) mmol/L Potassium 5.3 H (3.5-5.1) mmol/L Chloride 92 L (98-107) mmol/L Carbon Dioxide 35 H (22-30) mmol/L Anion Gap 9 mmol/L BUN 29 H (7-17) mg/dL Creatinine 6.77 H (0.52-1.04) mg/dL Est GFR (CKD-EPI)AfAm 9 (>60 ml/min/1.73 sqM) Est GFR (CKD-EPI)NonAf 8 (>60 ml/min/1.73 sqM) Glucose 96 (74-99) mg/dL Calcium 9.2 (8.4-10.2) mg/dL Magnesium 2.1 (1.6-2.3) mg/dL Total Bilirubin 0.7 (0.2-1.3) mg/dL AST 28 (14-36) U/L ALT 17 (4-34) U/L Alkaline Phosphatase 147 H (38-126) U/L NT-Pro-B Natriuret Pep pg/mL Total Protein 9.1 H (6.3-8.2) g/dL Albumin 4.6 (3.5-5.0) g/dL 05/01/20 Range/Units 11:32 WBC (3.8-10.6) k/uL RBC (3.80-5.40) m/uL Hgb (11.4-16.0) gm/dL Hct (34.0-46.0) % MCV (80.0-100.0) fL MCH (25.0-35.0) pg MCHC (31.0-37.0) g/dL RDW (11.5-15.5) % Plt Count (150-450) k/uL Neutrophils % % Lymphocytes % % Monocytes % % Eosinophils % % Basophils % % Neutrophils # (1.3-7.7) k/uL Lymphocytes # (1.0-4.8) k/uL Monocytes # (0-1.0) k/uL Eosinophils # (0-0.7) k/uL Basophils # (0-0.2) k/uL Hypochromasia Anisocytosis PT (9.0-12.0) sec INR (<1.2) APTT (22.0-30.0) sec Sodium (137-145) mmol/L Potassium (3.5-5.1) mmol/L Chloride (98-107) mmol/L Carbon Dioxide (22-30) mmol/L Anion Gap mmol/L BUN (7-17) mg/dL Creatinine (0.52-1.04) mg/dL Est GFR (CKD-EPI)AfAm (>60 ml/min/1.73 sqM) Est GFR (CKD-EPI)NonAf (>60 ml/min/1.73 sqM) Glucose (74-99) mg/dL Calcium (8.4-10.2) mg/dL Magnesium (1.6-2.3) mg/dL Total Bilirubin (0.2-1.3) mg/dL AST (14-36) U/L ALT (4-34) U/L Alkaline Phosphatase (38-126) U/L NT-Pro-B Natriuret Pep 7350 pg/mL Total Protein (6.3-8.2) g/dL Albumin (3.5-5.0) g/dL Disposition Clinical Impression: ESRD (end stage renal disease) on dialysis, Hypotension, Near syncope Disposition: HOME SELF-CARE Condition: Fair Instructions (If sedation given, give patient instructions): Near Syncope (ED) Is patient prescribed a controlled substance at d/c from ED?: No Referrals: Karo Alicea MD [Primary Care Provider] - 1-2 days Lolis Kirby MD [STAFF PHYSICIAN] - 1-2 days Time of Disposition: 13:14
[2020-05-01 11:53] LABS: Anisocytosis Slight; Basophils # (A) 0.1 k/uL (0-0.2); Basophils % (A) 1 %; Eosinophils # (A) 0.7 k/uL (0-0.7); Eosinophils % (A) 9 %; HCT 35.7 % (34.0-46.0); HGB 10.9 gm/dL (11.4-16.0); Hypochromasia Slight; Lymphocytes # (A) 0.8 k/uL (1.0-4.8); Lymphocytes % (A) 10 %; MCHC 30.6 g/dL (31.0-37.0); MCV 91.5 fL (80.0-100.0); Mean Platelet Volume 7.6; Monocytes # (A) 0.5 k/uL (0-1.0); Monocytes % (A) 6 %; Neutrophils # (A) 5.4 k/uL (1.3-7.7); Neutrophils % (A) 72 %; Platelet Count 302 k/uL (150-450); RDW 17.5 % (11.5-15.5); WBC 7.6 k/uL (3.8-10.6)
[2020-05-01] MEDS ORDERED: HYDROmorphone 1 MG/ML 1 ML SYRINGE IVP STA (11:55)
[2020-05-01 11:59] LABS: Albumin 4.6 g/dL (3.5-5.0); Calcium 9.2 mg/dL (8.4-10.2); Magnesium 2.1 mg/dL (1.6-2.3); Potassium 5.3 mmol/L (3.5-5.1); Total Bilirubin 0.7 mg/dL (0.2-1.3); Total Protein 9.1 g/dL (6.3-8.2)
[2020-05-01 12:09] LABS: INR 0.9 (<1.2); Partial Thromboplastin Time 28.2 sec (22.0-30.0); Prothrombin Time 9.6 sec (9.0-12.0)
--- NOTE | 2020-05-01 12:50 | XR ---
EXAMINATION TYPE: XR chest 2V DATE OF EXAM: 05/01/2020 COMPARISON: 11/24/2019 TECHNIQUE: PA and lateral views submitted. HISTORY: Difficulty breathing FINDINGS: The lungs are clear and there is no pneumothorax, pleural effusion, or focal pneumonia. Heart is ma rkedly enlarged. Mild central interstitial prominence. No pneumothorax. Rounded density overlying the shoulders bilaterally similar in appearance to prior exam. IMPRESSION: 1. Marked cardiomegaly correlate for pericardial effusion or cardiomyopathy. Mild central venous juan daniel estion versus mild interstitial pneumonitis..
[2020-05-01 13:34] VITALS: BP 101/74; PULSE 99
== END 2020-05-01 13:34 | disposition home or self-care (01) ==
LOC: EC 10:07
DX: R55 Syncope and collapse (principal); R09.89 Other specified symptoms and signs involving the circulatory and respiratory systems; I13.2 Hypertensive heart and chronic kidney disease with heart failure and with stage 5 chronic kidney disease, or end stage renal disease; N18.6 End stage renal disease; I50.9 Heart failure, unspecified; J45.909 Unspecified asthma, uncomplicated; D63.1 Anemia in chronic kidney disease; F41.9 Anxiety disorder, unspecified; F32.9 Major depressive disorder, single episode, unspecified; Z79.899 Other long term (current) drug therapy; Z88.8 Allergy status to other drugs, medicaments and biological substances; Z99.2 Dependence on renal dialysis; Z94.0 Kidney transplant status
CPT/HCPCS: 36415; 93005; 83880; 80053; 83735; 85025; 85610; 85730; 71046; 99284; 96374; J1170

== ENCOUNTER 2020-05-04 12:43 | Emergency (ER) | payer OTHER, MEDICARE ==
[2020-05-04] MEDS ORDERED: HYDROmorphone 0.5 MG/0.5 ML SYRINGE IVP STA (12:59)
[2020-05-04] MEDS ORDERED: LIDOCAINE 1%-EPI 1:100,000 20 ML VIAL SQ STA (13:01)
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
[2020-05-04 13:18] LABS: Glucose,Whole Blood 101 mg/dL (75-99)
[2020-05-04 13:30] LABS: Anisocytosis Slight; Basophils # (A) 0.1 k/uL (0-0.2); Basophils % (A) 1 %; Eosinophils # (A) 0.3 k/uL (0-0.7); Eosinophils % (A) 4 %; HCT 36.3 % (34.0-46.0); HGB 11.2 gm/dL (11.4-16.0); Hypochromasia Slight; Lymphocytes # (A) 0.7 k/uL (1.0-4.8); Lymphocytes % (A) 9 %; MCH 28.4 pg (25.0-35.0); MCHC 30.7 g/dL (31.0-37.0); MCV 92.5 fL (80.0-100.0); Mean Platelet Volume 7.7; Monocytes # (A) 0.3 k/uL (0-1.0); Monocytes % (A) 4 %; Neutrophils # (A) 6.3 k/uL (1.3-7.7); Neutrophils % (A) 80 %; Platelet Count 360 k/uL (150-450); RBC 3.93 m/uL (3.80-5.40); RDW 17.6 % (11.5-15.5); WBC 7.9 k/uL (3.8-10.6)
[2020-05-04 13:40] LABS: ALT 39 U/L (4-34); AST 73 U/L (14-36); Albumin 4.7 g/dL (3.5-5.0); Alcohol <10 mg/dL; Alkaline Phosphatase 125 U/L (38-126); Anion Gap 17 mmol/L; Blood Urea Nitrogen 81 mg/dL (7-17); Calcium 8.7 mg/dL (8.4-10.2); Carbon Dioxide 23 mmol/L (22-30); Chloride 95 mmol/L (98-107); Glucose 114 mg/dL (74-99); Sodium 135 mmol/L (137-145); Total Bilirubin 0.8 mg/dL (0.2-1.3); Total Protein 9.1 g/dL (6.3-8.2)
[2020-05-04 13:45] LABS: African American GFR (CKD) 3 (>60 ml/min/1.73 sqM); Non-African American GFR(CKD) 3 (>60 ml/min/1.73 sqM)
[2020-05-04 13:48] LABS: Potassium 7.4 mmol/L (3.5-5.1)
--- NOTE | 2020-05-04 14:02 | XR ---
AP pelvis HISTORY: Trauma and pain Single frontal view of the pelvis, comparison to prior exam 11/24/2019 There is a metallic clip present in the right hemipelvis is stable. Correlate for any surgical histor y. Bone mineralization, joint spaces and alignment are maintained. IMPRESSION: No fracture or dislocation.
--- NOTE | 2020-05-04 14:04 | XR ---
EXAMINATION TYPE: XR chest 1V portable DATE OF EXAM: 05/04/2020 COMPARISON: Prior chest x-ray 05/01/2020 HISTORY: Trauma and pain TECHNIQUE: Single frontal view of the chest is obtained. FINDINGS: Lung volumes are low. Patient is rotated and there are overlying cardiac leads. Overlying artifacts are present, surgical argelia present in the left upper extremity. There is no focal air sp eddie opacity, pleural effusion, or pneumothorax seen. The cardiac silhouette size is enlarged as on p rior exam. The osseous structures are intact. IMPRESSION: Expiratory rotated exam. Cardiomegaly. Difficult to exclude pulmonary venous hypertensio n and interstitial edema. Consider follow-up.
[2020-05-04 14:36] LABS: Partial Thromboplastin Time 25.7 sec (22.0-30.0); Prothrombin Time 10.6 sec (9.0-12.0)
[2020-05-04] MEDS ORDERED: SODIUM POLYSTYRENE SULFONATE 30 GM/120 ML BOTTLE RECTAL STA (14:47)
[2020-05-04] MEDS ORDERED: CALCIUM GLUCONATE 1 GM in SODIUM CHLORIDE 0.9% 100 ML IVPB ONE (14:54)
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
[2020-05-04 15:44] VITALS: BP 132/93; PULSE 83; RESP 16; TEMP 97.9
== END 2020-05-04 15:43 | disposition other institution (70) ==
LOC: EC 12:43
DX: S01.81XA Laceration without foreign body of other part of head, initial encounter (principal); J45.909 Unspecified asthma, uncomplicated; I13.2 Hypertensive heart and chronic kidney disease with heart failure and with stage 5 chronic kidney disease, or end stage renal disease; I50.9 Heart failure, unspecified; N18.6 End stage renal disease; F41.9 Anxiety disorder, unspecified; Z88.8 Allergy status to other drugs, medicaments and biological substances; F32.9 Major depressive disorder, single episode, unspecified; Z79.899 Other long term (current) drug therapy; Z95.5 Presence of coronary angioplasty implant and graft; Z99.2 Dependence on renal dialysis; V43.52XA Car driver injured in collision with other type car in traffic accident, initial encounter; Y93.89 Activity, other specified; Y92.410 Unspecified street and highway as the place of occurrence of the external cause
CPT/HCPCS: 36415; 93005; 80053; 82140; 84132; 84484; 85025; 85610; 85730; 80320; 72170; 71045; 72125; 70450; 71260; 74177; 99285; 96365; 96375; 12002; J0610; J1170; Q9967

== ENCOUNTER 2020-06-05 11:23 | Emergency (ER) | payer BC, MEDICARE, OTHER ==
[2020-06-05] MEDS ORDERED: SODIUM CHLORIDE 0.9% 1,000 ML IV STA (12:33)
[2020-06-05] MEDS ORDERED: HYDROmorphone 1 MG/ML 1 ML SYRINGE IVP STA (12:34)
[2020-06-05] MEDS ORDERED: HYDROmorphone 1 MG/ML 1 ML SYRINGE IVP PRN (12:34)
[2020-06-05] MEDS ORDERED: LABETALOL 5 MG/ML VIAL MDV IVP STA (12:34)
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
[2020-06-05 13:11] LABS: Anisocytosis Slight; Basophils # (A) 0.1 k/uL (0-0.2); Basophils % (A) 1 %; Eosinophils # (A) 0.3 k/uL (0-0.7); Eosinophils % (A) 4 %; HCT 32.5 % (34.0-46.0); Hypochromasia Slight; Lymphocytes # (A) 0.9 k/uL (1.0-4.8); Lymphocytes % (A) 14 %; MCH 29.4 pg (25.0-35.0); MCHC 30.9 g/dL (31.0-37.0); MCV 95.2 fL (80.0-100.0); Mean Platelet Volume 7.8; Monocytes # (A) 0.3 k/uL (0-1.0); Monocytes % (A) 5 %; Neutrophils # (A) 4.9 k/uL (1.3-7.7); Neutrophils % (A) 74 %; Platelet Count 217 k/uL (150-450); RBC 3.41 m/uL (3.80-5.40); RDW 16.9 % (11.5-15.5); WBC 6.6 k/uL (3.8-10.6)
[2020-06-05 13:19] LABS: Albumin 4.1 g/dL (3.5-5.0); Calcium 8.9 mg/dL (8.4-10.2); Magnesium 1.9 mg/dL (1.6-2.3); Phosphorus 5.7 mg/dL (2.5-4.5); Potassium 5.8 mmol/L (3.5-5.1); Total Bilirubin 0.7 mg/dL (0.2-1.3); Total Protein 8.1 g/dL (6.3-8.2)
--- NOTE | 2020-06-05 13:45 | CT ---
EXAMINATION TYPE: CT abdomen pelvis wo con DATE OF EXAM: 06/05/2020 HISTORY: Generalized abdominal pain up further specified CT DLP: 398.4 mGycm. Automated Exposure Control for Dose Reduction was Utilized. TECHNIQUE: CT scan of the abdomen and pelvis is performed without oral or IV contrast. COMPARISON: CT May 04, 2020 and older CTs FINDINGS: Within the limitations of a non-contrast study, the following observations are made. LUNG BASES: Persistent cardiomegaly with trace bilateral pleural effusions and focal left midlung ney ear scarring and/or atelectasis. Right coronary artery calcification redemonstrated. LIVER/GB: No significant abnormality is appreciated. PANCREAS: No significant abnormality is seen. SPLEEN: No significant abnormality is seen. ADRENALS: No significant abnormality is seen. KIDNEYS: Atrophic right kidney redemonstrated. Nonvisualized left kidney noted. Presumed failed trans plant in the anterior pelvis image 62 with lobulated partially calcified mass again seen. Bladder was again poorly distended. BOWEL: Suboptimal evaluation bowel as patient has little intra-abdominal fat and due to lack of enter ic contrast. No suspicious small or large bowel dilatation. Appendix within normal limits for base of cecum. GENITAL ORGANS: Anteverted uterus. Abnormal ovaries or adnexal lesions. The left ovary has new 4.4 x 3.3 cm low density cystic lesion axial image 61. Right ovary has 2.0 x 2.4 cm oval hyperdense lesion on same image, possible hemorrhagic cyst, lesion noted diminished in size from most recent CT. LYMPH NODES: No greater than 1cm abdominal or pelvic lymph nodes are appreciated. OSSEOUS STRUCTURES: Transitional type vertebra lumbosacral junction. OTHER: No significant additional abnormality is seen. IMPRESSION: No suspicious new or acute findings identified on noncontrast CT.
[2020-06-05] MEDS ORDERED: SODIUM POLYSTYRENE SULFONATE 15 GM/60 ML BOTTLE PO STA (14:11)
[2020-06-05] MEDS ORDERED: INSULIN REGULAR 100 UNIT/ML VIAL IV ONE (14:11)
[2020-06-05] MEDS ORDERED: SODIUM BICARB 8.4% 50 ML SYR (1 MEQ/ML) IV STA (14:12)
[2020-06-05 14:40] VITALS: PULSE 88; TEMP 98.1
[2020-06-05] MEDS ORDERED: ONDANSETRON 4 MG ODT STARTER PACK 2 TAB BTL PO STA (14:41)
[2020-06-05] MEDS ORDERED: ONDANSETRON 4 MG/2 ML VIAL IVP STA (14:41)
[2020-06-05 15:04] VITALS: BP 182/115; RESP 74
== END 2020-06-05 15:16 | disposition home or self-care (01) ==
LOC: EC 11:23
DX: R10.9 Unspecified abdominal pain (principal); I16.0 Hypertensive urgency; I13.2 Hypertensive heart and chronic kidney disease with heart failure and with stage 5 chronic kidney disease, or end stage renal disease; N18.6 End stage renal disease; I50.9 Heart failure, unspecified; J45.909 Unspecified asthma, uncomplicated; G89.29 Other chronic pain; M54.5 Low back pain; F41.9 Anxiety disorder, unspecified; F32.9 Major depressive disorder, single episode, unspecified; Z79.899 Other long term (current) drug therapy; Z88.8 Allergy status to other drugs, medicaments and biological substances; Z94.0 Kidney transplant status; Z99.2 Dependence on renal dialysis
CPT/HCPCS: 36415; 80053; 82150; 82550; 83605; 83690; 83735; 84100; 85025; 74176; 99285; 96374; 96375 ×4; 96361 ×2; J2405; J1170; S0119

== ENCOUNTER → 2020-07-15 | Outpatient (CLI) | payer MEDICARE, OTHER | END | disposition home or self-care (01) | LOC: LABWHC1 14:58 | PROVIDERS: ATTEND Internal Medicine | DX: D64.9 Anemia, unspecified (principal) | CPT/HCPCS: 86850; 86870; 86880; 86900; 86901; 86920 ==

== ENCOUNTER 2021-10-28 18:52 | Inpatient (IN) | payer MEDICARE, OTHER ==
[2021-10-28] MEDS ORDERED: ACETAMINOPHEN TAB 500 MG TAB PO STA (21:10)
--- NOTE | 2021-10-28 21:20 | XR ---
EXAMINATION TYPE: XR chest 2V DATE OF EXAM: 10/28/2021 COMPARISON: 05/04/2020 HISTORY: Short of breath. Cough TECHNIQUE: 2 views FINDINGS: Heart is enlarged. There is pulmonary vascular congestion and pulmonary interstitial and ai rspace edema. Mediastinum is normal. There are no hilar masses. Bony thorax is intact. IMPRESSION: There is pulmonary edema and cardiomegaly increased compared to the old exam and consiste nt with worsening congestive heart failure.
--- NOTE | 2021-10-28 21:29 | ED ---
General Adult HPI - General Chief complaint: Upper Respiratory Infection Stated complaint: SOB,Back pain,PCP sent Time Seen by Provider: 10/28/21 20:56 Source: patient, RN notes reviewed Mode of arrival: ambulatory Limitations: no limitations - History of Present Illness Initial comments: This is a pleasant 31-year-old female with a history of chronic renal failure. Patient is on hemodialysis on Mondays, Wednesdays, and Fridays. Patient did make her dialysis yesterday. She was sent in by primary care physician for pneumonia. Patient complaining of body aches, back pain, upset stomach, productive cough. Had x-ray at her primary care physician which was positive for pneumonia. She was sent for evaluation. Patient found be hypertensive here afebrile. Apparently the patient was tested for Covid 19 and was negative. No headache, no changes in vision or hearing, no sore throat or difficulty with speech, no neck pain, no chest pain or shortness of breath, no abdominal pain, no changes in bowel movements, no numbness or tingling, no extremity pain, no skin rashes or lesions. Patient does not produce urine Nonsmoker, no alcohol or drug abuse - Related Data Home Medications Medication Instructions Recorded Confirmed Albuterol Sulfate [Proair Hfa] 2 puff INHALATION RT-Q6H PRN 01/22/16 07/18/20 Carvedilol [Coreg] 25 mg PO BID 05/28/18 07/18/20 hydrALAZINE HCL [Apresoline] 100 mg PO TID 11/16/18 07/18/20 Cinacalcet HCl [Sensipar] 60 mg PO DIRECTED 02/26/19 07/18/20 ALPRAZolam [Xanax] 0.25 mg PO HS PRN 11/17/19 07/18/20 Zolpidem Tartrate [Ambien] 5 mg PO HS PRN 11/17/19 07/18/20 Calcium Acetate [Phoslo] 667 mg PO TID 05/01/20 07/18/20 Lidocaine-Prilocaine Cream [Emla 1 applic TOPICAL DAILY PRN 05/01/20 07/18/20 Cream 2.5%/2.5%] NIFEdipine [Procardia XL] 90 mg PO DAILY 05/01/20 07/18/20 Ondansetron [Zofran] 8 mg PO Q8H PRN 05/01/20 07/18/20 Pantoprazole Sodium [Protonix] 40 mg PO DAILY 05/01/20 07/18/20 Sodium Polystyrene Sulfonate 15 gm PO SUTUTHSA 05/01/20 07/18/20 [Kayexalate] HYDROcodone/APAP 5-325MG [[place] 1 tab PO Q6HR PRN 07/18/20 07/18/20 5-325] cloNIDine HCL [Catapres] 0.2 mg PO TID 07/18/20 07/18/20 traMADol HCl [Ultram] 50 mg PO TID PRN 07/18/20 07/18/20 Allergies Allergy/AdvReac Type Severity Reaction Status Date / Time vancomycin Allergy Anaphylaxis Verified 10/28/21 19:21 hydralazine AdvReac Rapid Verified 10/28/21 19:21 Heart Rate WHEN GIVEN THROUGH IV Review of Systems ROS Statement: Those systems with pertinent positive or pertinent negative responses have been documented in the HPI. ROS Other: All systems not noted in ROS Statement are negative. 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 to check coronary pressures, 11/15/09 Failed kidney transplant R pelvis, dialysis catheter in and out, current L upper arm AVG, supra pubic hernia repair, transvaginal mesh, wisdom teeth extraction with anesthesia. Past Anesthesia/Blood Transfusion Reactions: No Reported Reaction Additional Past Anesthesia/Blood Transfusion Reaction / Comment(s): Pt has received blood in past without reaction. Past Psychological History: Anxiety, Depression Smoking Status: Never smoker Past Alcohol Use History: None Reported Past Drug Use History: Marijuana - Past Family History Father Family Medical History: No Reported History Additional Family Medical History / Comment(s): Father is healthy and is 62 yrs old. Mother Family Medical History: No Reported History Additional Family Medical History / Comment(s): Mother is healthy and is 60 yrs old. General Exam - General Exam Comments Initial Comments: Patient appears to be mildly ill but not toxic. Limitations: no limitations General appearance: alert, in no apparent distress Head exam: Present: atraumatic, normocephalic, normal inspection Eye exam: Present: normal appearance, PERRL, EOMI. Absent: scleral icterus, conjunctival injection, periorbital swelling ENT exam: Present: normal exam, mucous membranes moist, TM's normal bilaterally, normal external ear exam. Absent: normal oropharynx Neck exam: Present: normal inspection, full ROM. Absent: tenderness, meningismus, lymphadenopathy Respiratory exam: Present: normal lung sounds bilaterally, rales (Bibasilar rales are noted). Absent: respiratory distress, wheezes, rhonchi, stridor Cardiovascular Exam: Present: regular rate, normal rhythm, normal heart sounds. Absent: systolic murmur, diastolic murmur, rubs, gallop, clicks GI/Abdominal exam: Present: soft, normal bowel sounds. Absent: distended, tenderness, guarding, rebound, rigid Extremities exam: Present: normal inspection, full ROM, normal capillary refill. Absent: tenderness, pedal edema, joint swelling, calf tenderness Back exam: Present: normal inspection Neurological exam: Present: alert, oriented X3, CN II-XII intact Psychiatric exam: Present: normal affect, normal mood Skin exam: Present: warm, dry, intact, normal color. Absent: rash Course Vital Signs 10/28/21 10/28/21 19:19 22:27 Temperature 98.3 F Pulse Rate 96 102 H Respiratory 18 16 Rate Blood Pressure 174/110 181/120 O2 Sat by Pulse 96 96 Oximetry - Reevaluation(s) Reevaluation #1: 10/28/21 21:49 Medical record is reviewed Symptoms are unchanged Patient is informed of results and questions answered Patient in no distress Reevaluation #2: 10/28/21 22:20 Medical record is reviewed Symptoms are improved here in the emergency department Patient is informed of results and questions answered Patient in no distress Reevaluation #3: 10/28/21 23:29 BMP elevated comparatively speaking to the last value. Troponin also elevated which the patient has chronically. Awaiting bed control. - Consultations Consultation #1: Case discussed in detail with the nurse practitioner [facility] E[facility] Findings - EKG Comments: EKG Findings:: EKG done at 2244 shows sinus rhythm with left axis deviation. Left ventricular hypertrophy ST changes noted in lead V6. Normal intervals. Rate of 91. Note that the patient's old age criteria for LVH is much larger than the previous study from May 2020 Medical Decision Making - Lab Data Result diagrams: 10/28/21 21:45 10/28/21 21:45 Lab Results 10/28/21 10/28/21 10/28/21 Range/Units 21:45 21:45 21:45 WBC 5.9 (3.8-10.6) k/uL RBC 2.97 L (3.80-5.40) m/uL Hgb 8.9 L (11.4-16.0) gm/dL Hct 28.8 L (34.0-46.0) % MCV 97.1 (80.0-100.0) fL MCH 29.8 (25.0-35.0) pg MCHC 30.7 L (31.0-37.0) g/dL RDW 19.1 H (11.5-15.5) % Plt Count 183 (150-450) k/uL MPV 8.8 Neutrophils % 74 % Lymphocytes % 16 % Monocytes % 2 % Eosinophils % 6 % Basophils % 1 % Neutrophils # 4.4 (1.3-7.7) k/uL Lymphocytes # 0.9 L (1.0-4.8) k/uL Monocytes # 0.1 (0-1.0) k/uL Eosinophils # 0.3 (0-0.7) k/uL Basophils # 0.1 (0-0.2) k/uL Hypochromasia Moderate Anisocytosis Slight Macrocytosis Slight Sodium 134 L (137-145) mmol/L Potassium 5.0 (3.5-5.1) mmol/L Chloride 88 L (98-107) mmol/L Carbon Dioxide 34 H (22-30) mmol/L Anion Gap 12 mmol/L BUN 24 H (7-17) mg/dL Creatinine 8.89 H* (0.52-1.04) mg/dL Est GFR (CKD-EPI)AfAm 6 (>60 ml/min/1.73 sqM) Est GFR (CKD-EPI)NonAf 5 (>60 ml/min/1.73 sqM) Glucose 88 (74-99) mg/dL Calcium 8.5 (8.4-10.2) mg/dL Magnesium 2.2 (1.6-2.3) mg/dL Total Bilirubin 1.9 H (0.2-1.3) mg/dL AST 61 H (14-36) U/L ALT 18 (4-34) U/L Alkaline Phosphatase 50 (38-126) U/L Troponin I (0.000-0.034) ng/mL NT-Pro-B Natriuret Pep pg/mL Total Protein 8.7 H (6.3-8.2) g/dL Albumin 4.5 (3.5-5.0) g/dL Amylase 66 (30-110) U/L Lipase 70 (23-300) U/L HCG, Qual Not Detected Influenza Type A (PCR) Not Detected (Not Detectd) Influenza Type B (PCR) Not Detected (Not Detectd) RSV (PCR) Not Detected (Not Detectd) SARS-CoV-2 (PCR) Not Detected (Not Detectd) 10/28/21 10/28/21 Range/Units 21:45 21:47 WBC (3.8-10.6) k/uL RBC (3.80-5.40) m/uL Hgb (11.4-16.0) gm/dL Hct (34.0-46.0) % MCV (80.0-100.0) fL MCH (25.0-35.0) pg MCHC (31.0-37.0) g/dL RDW (11.5-15.5) % Plt Count (150-450) k/uL MPV Neutrophils % % Lymphocytes % % Monocytes % % Eosinophils % % Basophils % % Neutrophils # (1.3-7.7) k/uL Lymphocytes # (1.0-4.8) k/uL Monocytes # (0-1.0) k/uL Eosinophils # (0-0.7) k/uL Basophils # (0-0.2) k/uL Hypochromasia Anisocytosis Macrocytosis Sodium (137-145) mmol/L Potassium (3.5-5.1) mmol/L Chloride (98-107) mmol/L Carbon Dioxide (22-30) mmol/L Anion Gap mmol/L BUN (7-17) mg/dL Creatinine (0.52-1.04) mg/dL Est GFR (CKD-EPI)AfAm (>60 ml/min/1.73 sqM) Est GFR (CKD-EPI)NonAf (>60 ml/min/1.73 sqM) Glucose (74-99) mg/dL Calcium (8.4-10.2) mg/dL Magnesium (1.6-2.3) mg/dL Total Bilirubin (0.2-1.3) mg/dL AST (14-36) U/L ALT (4-34) U/L Alkaline Phosphatase (38-126) U/L Troponin I 0.117 H* (0.000-0.034) ng/mL NT-Pro-B Natriuret Pep 713672 pg/mL Total Protein (6.3-8.2) g/dL Albumin (3.5-5.0) g/dL Amylase (30-110) U/L Lipase (23-300) U/L HCG, Qual Influenza Type A (PCR) (Not Detectd) Influenza Type B (PCR) (Not Detectd) RSV (PCR) (Not Detectd) SARS-CoV-2 (PCR) (Not Detectd) Disposition Clinical Impression: Acute exacerbation of CHF (congestive heart failure), Chronic renal failure, Uncontrolled hypertension Disposition: ADMITTED IP TO THIS HOSP Condition: Fair Is patient prescribed a controlled substance at d/c from ED?: No Time of Disposition: 21:50 Decision to Admit Reason: Admit from EC Decision Time: 21:50
[2021-10-28] MEDS ORDERED: NITROGLYCERIN OINT 1 INCH/GM PACKET TOPICAL STA (21:47)
[2021-10-28 22:13] LABS: Anisocytosis Slight; Basophils # (A) 0.1 k/uL (0-0.2); Basophils % (A) 1 %; Eosinophils # (A) 0.3 k/uL (0-0.7); Eosinophils % (A) 6 %; HCT 28.8 % (34.0-46.0); HGB 8.9 gm/dL (11.4-16.0); Hypochromasia Moderate; Lymphocytes # (A) 0.9 k/uL (1.0-4.8); Lymphocytes % (A) 16 %; MCH 29.8 pg (25.0-35.0); MCHC 30.7 g/dL (31.0-37.0); MCV 97.1 fL (80.0-100.0); Macrocytosis Slight; Mean Platelet Volume 8.8; Monocytes # (A) 0.1 k/uL (0-1.0); Monocytes % (A) 2 %; Neutrophils # (A) 4.4 k/uL (1.3-7.7); Neutrophils % (A) 74 %; Platelet Count 183 k/uL (150-450); RBC 2.97 m/uL (3.80-5.40); RDW 19.1 % (11.5-15.5); WBC 5.9 k/uL (3.8-10.6)
[2021-10-28] MEDS ORDERED: ONDANSETRON 4 MG/2 ML VIAL IVP STA (22:20)
[2021-10-28] MEDS ORDERED: MORPHINE SULFATE 4 MG/ML SYRINGE IV STA (22:20)
[2021-10-28 22:24] LABS: ALT 18 U/L (4-34); AST 61 U/L (14-36); African American GFR (CKD) 6 (>60 ml/min/1.73 sqM); Albumin 4.5 g/dL (3.5-5.0); Alkaline Phosphatase 50 U/L (38-126); Amylase 66 U/L (30-110); Anion Gap 12 mmol/L; Blood Urea Nitrogen 24 mg/dL (7-17); Calcium 8.5 mg/dL (8.4-10.2); Carbon Dioxide 34 mmol/L (22-30); Chloride 88 mmol/L (98-107); Glucose 88 mg/dL (74-99); Lipase 70 U/L (23-300); Magnesium 2.2 mg/dL (1.6-2.3); Non-African American GFR(CKD) 5 (>60 ml/min/1.73 sqM); Sodium 134 mmol/L (137-145); Total Bilirubin 1.9 mg/dL (0.2-1.3); Total Protein 8.7 g/dL (6.3-8.2)
[2021-10-28 22:36] LABS: HCG,Qualitative Serum Not Detected
[2021-10-28] MEDS ORDERED: ENALAPRILAT 1.25 MG/ML 1 ML VIAL IVP STA (22:57)
[2021-10-29] MEDS: ENALAPRILAT 1.25 MG/ML 1 ML VIAL IVP SCH ×2 (00:13→06:49)
[2021-10-29] MEDS ORDERED: MORPHINE SULFATE 2 MG/ML SYRINGE IVP STA (03:23)
[2021-10-29] MEDS ORDERED: MELATONIN 3 MG TABLET PO ONE (03:45)
[2021-10-29] MEDS ORDERED: hydrOXYzine HCL 25 MG TAB PO PRN (07:45)
[2021-10-29] MEDS ORDERED: ALBUTEROL NEBULIZED 2.5 MG/3 ML INHALATION PRN (07:45)
[2021-10-29] MEDS: hydrALAZINE HCL 50 MG TAB PO SCH ×3 (08:25→20:26)
[2021-10-29] MEDS: HEPARIN SODIUM,PORCINE/PF 5,000 UNIT/0.5 ML SYRINGE SQ SCH ×2 (08:25→20:26)
[2021-10-29] MEDS: cloNIDine HCL 0.1 MG TAB PO SCH ×3 (08:26→20:26)
[2021-10-29] MEDS: ONDANSETRON 4 MG TAB PO PRN (08:42)
[2021-10-29] MEDS: NIFEdipine XL 90 MG TAB.ER.24 PO SCH (08:43)
[2021-10-29] MEDS ORDERED: NITROGLYCERIN OINT 1 INCH/GM PACKET TOPICAL SCH (09:00)
[2021-10-29] MEDS ORDERED: ASPIRIN 325 MG TAB PO SCH (09:00)
[2021-10-29] MEDS ORDERED: NON FORMULARY DRUG (Hydralazine Hcl [Apresoline] 100 MG Tablet) PO SCH (09:00)
[2021-10-29] MEDS ORDERED: FAMOTIDINE 20 MG/2 ML VIAL IV SCH (09:00)
--- NOTE | 2021-10-29 09:11 | P.CRDCN ---
History of Present Illness Consult date: 10/29/21 History of present illness: HISTORY OF PRESENT ILLNESS: This is a 31-year-old female with a past medical history significant for end- stage renal disease on hemodialysis secondary to polycystic kidney disease, cardiomyopathy, congestive heart failure, pulmonary hypertension, and hypertension. Patient follows in the office with Dr. Larios. We have been asked to see the patient in consultation for abnormal troponins. Patient examined at the bedside. patient states she has been feeling short of breath for the past couple weeks and having a productive cough. She states she went to her primary care physician yesterday because she thought she had a sinus infection. She states that the troponin x-ray told her she had pneumonia and recommended that she come to the hospital. This morning the patient states her shortness of breath has improved. She reports some mild chest discomfort this morning. She states the pain is worse every time she takes a deep breath. She denies any radiation of the pain. Denies any nausea or vomiting. She is scheduled to have hemodialysis this morning. T.he patient reports having a cardiac cath performed at [facility] a few years ago. She is unsure of the results * EKG reveals sinus mechanism with nonspecific ST-T wave changes. LVH. * Chest xray pulmonary edema and cardiomegaly increased compared to old examined consistent with worsening congestive heart failure. * Laboratory data: WBC 5.9. Hemoglobin 8.9. Platelet count 183. Sodium 134. Potassium 5.0. B UN 24. Creatinine 8.89. Lactic acid 1.2. troponin 0.117. 0.102. 0.105. ProBNP 114,000. * Current home cardiac medications include Catapres 0.3 mg 3 times a day, hydralazine 100 mg 3 times a day, and Procardia 90 mg daily * Most recent echocardiogram obtained in September 2020 revealed ejection fraction 30-35%, moderate to severe aortic regurgitation, moderate mitral regurgitation, moderate tricuspid regurgitation, and moderately increased pulmonary artery systolic pressure REVIEW OF SYSTEMS: At the time of my exam: CONSTITUTIONAL: Denies fever or chills. HEENT: Denies blurred vision, vision changes, or eye pain. Denies hemoptysis CARDIOVASCULAR: Denies chest pain. Denies orthopnea. Denies PND. Denies palpitations RESPIRATORY: Denies shortness of breath. GASTROINTESTINAL: Denies abdominal pain. Denies nausea or vomiting. HEMATOLOGIC: Denies bleeding disorders. GENITOURINARY: Denies any blood in urine. SKIN: Denies pruitis. Denies rash. PHYSICAL EXAM: VITAL SIGNS: Reviewed. GENERAL: Well-developed in no acute distress. HEENT: Head is normocephalic. Pupils are equal, round. Sclerae anicteric. Mucous membranes of the mouth are moist. Neck supple. No JVD or thyromegaly LUNGS: Respirations even and unlabored. Lungs diminished with bibasilar crackles HEART: Regular rate and rhythm. S1 and S2 heard. systolic murmur noted. ABDOMEN: Soft. Nondistended. Nontender. EXTREMITIES: Normal range of motion. No clubbing or cyanosis. Peripheral pulses intact. 1+ bilateral lower extremity edema NEUROLOGIC: Awake and alert. Oriented x 3. ASSESSMENT: Shortness of breath Possible pneumonia, per XR at PCP per patient End-stage renal disease on hemodialysis Abnormal troponins, no evidence of ACS, suspect secondary to CKD Cardiomyopathy, suspected to be nonischemic Acute on chronic heart failure with reduced ejection fraction Hypertension PLAN: Obtain 2D echo to assess cardiac structure and function Resume home cardiac medications Monitor BP Nephrology following. Patient to undergo HD today Further recommendations pending evaluation by Dr. Avina Nurse practitioner note has been reviewed by physician. Signing provider agrees with the documented findings, assessment, and plan of care. 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 Past Anesthesia/Blood Transfusion Reactions: No Reported Reaction Additional Past Anesthesia/Blood Transfusion Reaction / Comment(s): Pt has received blood in past without reaction. Past Psychological History: Anxiety, Depression Additional Psychological History / Comment(s): Pt resides with family. She is independent. She drives. She is disabled. She states she has anxiety and depression but no suicidal thoughts/ idealations or plans. Smoking Status: Never smoker Past Alcohol Use History: None Reported Additional Past Alcohol Use History / Comment(s): Pt states she started smoking socially as a teen and quit smoking in 2016. Past Drug Use History: Marijuana Additional Drug Use History / Comment(s): Couple times a week. - Past Family History Father Family Medical History: No Reported History Additional Family Medical History / Comment(s): Father is healthy and is 62 yrs old. Mother Family Medical History: No Reported History Additional Family Medical History / Comment(s): Mother is healthy and is 60 yrs old. Medications and Allergies Home Medications Medication Instructions Recorded Confirmed Type Albuterol Sulfate [Proair Hfa] 2 puff INHALATION RT-Q6H PRN 01/22/16 10/29/21 History hydrALAZINE HCL [Apresoline] 100 mg PO TID 11/16/18 10/29/21 History Cinacalcet HCl [Sensipar] 60 mg PO MOWEFR 02/26/19 10/29/21 History Calcium Acetate [Phoslo] 1,334 mg PO AC-TID 05/01/20 10/29/21 History Lidocaine-Prilocaine Cream [Emla 1 applic TOPICAL DAILY PRN 05/01/20 10/29/21 History Cream 2.5%/2.5%] NIFEdipine [Procardia XL] 90 mg PO DAILY 05/01/20 10/29/21 History Ondansetron [Zofran] 4 - 8 mg PO Q8H PRN 05/01/20 10/29/21 History Vitamin D (Unknown Dose) 1 dose PO MOWEFR 10/29/21 10/29/21 History cloNIDine HCL [Catapres] 0.3 mg PO TID 10/29/21 10/29/21 History hydrOXYzine HCL [Atarax] 25 mg PO TID PRN 10/29/21 10/29/21 History Allergies Allergy/AdvReac Type Severity Reaction Status Date / Time vancomycin Allergy Anaphylaxis Verified 10/29/21 07:26 hydralazine AdvReac Rapid Verified 10/29/21 07:26 Heart Rate WHEN GIVEN THROUGH IV Physical Exam Vitals: Vital Signs Temp Pulse Pulse Resp BP BP Pulse Ox 10/29/21 08:25 98.2 F 99 20 180/104 94 L 10/29/21 04:00 98.3 F 92 18 168/90 97 10/29/21 02:20 98.3 F 88 18 173/102 100 10/29/21 02:00 88 18 10/29/21 00:48 95 16 160/110 100 10/29/21 00:10 94 16 180/116 100 10/28/21 22:27 102 H 16 181/120 96 10/28/21 19:19 98.3 F 96 18 174/110 96 Intake and Output 10/28/21 10/29/21 10/29/21 22:59 06:59 14:59 Output Total 0 Balance 0 Output: Urine 0 Other: Weight 63.503 kg 63.503 kg Results 10/28/21 21:45 10/28/21 21:45 Cardiac Enzymes 10/28/21 10/28/21 10/29/21 Range/Units 21:45 21:45 00:55 AST 61 H (14-36) U/L Troponin I 0.117 H* 0.102 H* (0.000-0.034) ng/mL 10/29/21 Range/Units 04:05 AST (14-36) U/L Troponin I 0.105 H* (0.000-0.034) ng/mL CBC 10/28/21 Range/Units 21:45 WBC 5.9 (3.8-10.6) k/uL RBC 2.97 L (3.80-5.40) m/uL Hgb 8.9 L (11.4-16.0) gm/dL Hct 28.8 L (34.0-46.0) % Plt Count 183 (150-450) k/uL Comprehensive Metabolic Panel 10/28/21 Range/Units 21:45 Sodium 134 L (137-145) mmol/L Potassium 5.0 (3.5-5.1) mmol/L Chloride 88 L (98-107) mmol/L Carbon Dioxide 34 H (22-30) mmol/L BUN 24 H (7-17) mg/dL Creatinine 8.89 H* (0.52-1.04) mg/dL Glucose 88 (74-99) mg/dL Calcium 8.5 (8.4-10.2) mg/dL AST 61 H (14-36) U/L ALT 18 (4-34) U/L Alkaline Phosphatase 50 (38-126) U/L Total Protein 8.7 H (6.3-8.2) g/dL Albumin 4.5 (3.5-5.0) g/dL Current Medications Generic Name Dose Route Start Last Admin Trade Name Freq PRN Reason Stop Dose Admin Albuterol Sulfate 2.5 mg 10/29/21 07:45 Albuterol Nebulized 2.5 Mg/3 Ml INHALATION RT-Q6H PRN Shortness Of Breath Aspirin 325 mg 10/29/21 09:00 10/29/21 08:26 Aspirin 325 Mg Tab PO 325 mg DAILY [facility] Administration Calcium Acetate 1,334 mg 10/29/21 12:30 Calcium Acetate 667 Mg Tab PO AC-TID [facility] Cinacalcet 60 mg 10/29/21 09:00 Cinacalcet 30 Mg Tab PO MOWEFR [facility] Clonidine 0.3 mg 10/29/21 09:00 10/29/21 08:26 Clonidine Hcl 0.1 Mg Tab PO 0.3 mg TID SELENE Administration Famotidine 10 mg 10/29/21 09:00 10/29/21 08:25 Famotidine 20 Mg/2 Ml Vial IV 10 mg Q12HR SELENE Administration Heparin Sodium (Porcine) 5,000 unit 10/29/21 09:00 10/29/21 08:25 Heparin Sodium,Porcine/Pf 5,000 Unit/0.5 Ml Syringe SQ 5,000 unit Q12HR SELENE Administration Hydralazine HCl 100 mg 10/29/21 09:00 10/29/21 08:25 Hydralazine Hcl 50 Mg Tab PO 100 mg TID SELENE Administration Hydroxyzine HCl 25 mg 10/29/21 07:45 Hydroxyzine Hcl 25 Mg Tab PO TID PRN Anxiety Nifedipine 90 mg 10/29/21 09:00 10/29/21 08:43 Nifedipine Xl 90 Mg Tab.Er.24 PO 90 mg DAILY [facility] Administration Nitroglycerin 1 inch 10/29/21 09:00 10/29/21 08:25 Nitroglycerin Oint 1 Inch/Gm Packet TOPICAL 1 inch QID [facility]ELENE Administration Ondansetron HCl 4 mg 10/29/21 07:45 10/29/21 08:42 Ondansetron 4 Mg Tab PO 4 mg Q8H PRN Administration Nausea Intake and Output 10/28/21 10/29/21 10/29/21 22:59 06:59 14:59 Output Total 0 Balance 0 Output: Urine 0 Other: Weight 63.503 kg 63.503 kg 10/28/21 21:45 10/28/21 21:45
[2021-10-29] MEDS: ACETAMINOPHEN TAB 325 MG TAB PO PRN ×2 (10:48→20:27)
[2021-10-29 11:31] VITALS: BMI 25.6
--- NOTE | 2021-10-29 11:35 | P.HPIM ---
History of Present Illness This is a pleasant 31 years old -Greek female with past medical history of end-stage renal disease on hemodialysis, hypertension, asthma, chronic anemia and cardiomyopathy nonischemic with ejection fraction 35-40%, anxiety and depression Patient was sent by her PCP for pneumonia as she was told by her PCP. She wants to see Celia Doe her PCP team for coughing, decreased appetite dyspnea and chest pain for more than 5 days, she's been complaining of from back and upper chest pain about 8/10. No dyspnea or tachypnea at rest, she has some cough and yellow phlegm. She denies dyspnea at rest or orthopnea. She no urinary tract symptoms, no diarrhea or vomiting, Livan smoker she smokes a pack per day Also has been complaining of from right lower quadrant pain, looks mild with no rebound tenderness and abdominal of soft She denies smoking, alcohol or illicit drugs. She is hemodynamically stable, afebrile and saturating 97% on 2 L oxygen via nasal cannula. On admission her blood pressure was elevated 181/120, currently blood pressure 168/90 She is with anemia with hemoglobin 8.9, rest of CBC is unremarkable. BMP is reviewed, liver enzymes not significantly elevated. Troponin is elevated 0.11 and 0.10 0.10. Initial 2.2 and hCG qualitative not detected. Influenza-type A and B and RSV and coronavirus are undetected EKG showing normal sinus rhythm at [address]-T changes Chest x-ray showing pulmonary edema and cardiomegaly and worsening congestive heart failure In the emergency room she received in the lap rate, hydralazine and pain management Review of Systems CONSTITUTIONAL: No fever, no malaise, no fatigue. HEENT: No recent visual problems or hearing problems. Denied any sore throat. CARDIOVASCULAR: No orthopnea, PND, no palpitations, no syncope. PULMONARY: No shortness of breath, no cough, no hemoptysis. GASTROINTESTINAL: No diarrhea, no nausea, no vomiting, no abdominal pain. Normoactive bowel sounds. NEUROLOGICAL: No headaches, no weakness, no numbness. HEMATOLOGICAL: Denies any bleeding or petechiae. GENITOURINARY: Denies any burning micturition, frequency, or urgency. MUSCULOSKELETAL/RHEUMATOLOGICAL: Denies any joint pain, swelling, or any muscle pain. ENDOCRINE: Denies any polyuria or polydipsia. 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 Past Anesthesia/Blood Transfusion Reactions: No Reported Reaction Additional Past Anesthesia/Blood Transfusion Reaction / Comment(s): Pt has received blood in past without reaction. Past Psychological History: Anxiety, Depression Additional Psychological History / Comment(s): Pt resides with family. She is independent. She drives. She is disabled. She states she has anxiety and depression but no suicidal thoughts/ idealations or plans. Smoking Status: Never smoker Past Alcohol Use History: None Reported Additional Past Alcohol Use History / Comment(s): Pt states she started smoking socially as a teen and quit smoking in 2015. Past Drug Use History: Marijuana Additional Drug Use History / Comment(s): Couple times a week. - Past Family History Father Family Medical History: No Reported History Additional Family Medical History / Comment(s): Father is healthy and is 62 yrs old. Mother Family Medical History: No Reported History Additional Family Medical History / Comment(s): Mother is healthy and is 60 yrs old. Medications and Allergies Home Medications Medication Instructions Recorded Confirmed Type Albuterol Sulfate [Proair Hfa] 2 puff INHALATION RT-Q6H PRN 01/22/16 10/29/21 History hydrALAZINE HCL [Apresoline] 100 mg PO TID 11/16/18 10/29/21 History Cinacalcet HCl [Sensipar] 180 mg PO MOWEFR 02/26/19 10/29/21 History Calcium Acetate [Phoslo] 1,334 mg PO AC-TID 05/01/20 10/29/21 History Lidocaine-Prilocaine Cream [Emla 1 applic TOPICAL DAILY PRN 05/01/20 10/29/21 History Cream 2.5%/2.5%] NIFEdipine [Procardia XL] 90 mg PO DAILY 05/01/20 10/29/21 History Ondansetron [Zofran] 4 - 8 mg PO Q8H PRN 05/01/20 10/29/21 History calcitrioL [Calcitriol] 2 mcg PO MOWEFR 10/29/21 10/29/21 History cloNIDine HCL [Catapres] 0.3 mg PO TID 10/29/21 10/29/21 History hydrOXYzine HCL [Atarax] 25 mg PO TID PRN 10/29/21 10/29/21 History Allergies Allergy/AdvReac Type Severity Reaction Status Date / Time vancomycin Allergy Anaphylaxis Verified 10/29/21 07:26 hydralazine AdvReac Rapid Verified 10/29/21 07:26 Heart Rate WHEN GIVEN THROUGH IV Physical Exam Vitals: Vital Signs Temp Pulse Pulse Resp BP BP Pulse Ox 10/29/21 04:00 98.3 F 92 18 168/90 97 10/29/21 02:20 98.3 F 88 18 173/102 100 10/29/21 02:00 88 18 10/29/21 00:48 95 16 160/110 100 10/29/21 00:10 94 16 180/116 100 10/28/21 22:27 102 H 16 181/120 96 10/28/21 19:19 98.3 F 96 18 174/110 96 Intake and Output 10/28/21 10/29/21 10/29/21 22:59 06:59 14:59 Output Total 0 Balance 0 Output: Urine 0 Other: Weight 63.503 kg 63.503 kg GENERAL: The patient is alert and oriented x3, not in any acute distress. Well developed, well nourished. HEENT: Pupils are round and equally reacting to light. EOMI. No scleral icterus. No conjunctival pallor. Normocephalic, atraumatic. No pharyngeal erythema. No thyromegaly. CARDIOVASCULAR: S1 and S2 present. No murmurs, rubs, or gallops. PULMONARY: Chest is clear to auscultation, no wheezing or crackles. ABDOMEN: Soft, nontender, nondistended, normoactive bowel sounds. No palpable organomegaly. MUSCULOSKELETAL: No joint swelling or deformity. EXTREMITIES: No cyanosis, clubbing, or pedal edema. NEUROLOGICAL: Gross neurological examination did not reveal any focal deficits. SKIN: No rashes. No petechiae Results CBC & Chem 7: 10/28/21 21:45 10/28/21 21:45 Labs: Abnormal Lab Results - Last 24 Hours (Table) 10/28/21 10/28/21 10/28/21 Range/Units 21:45 21:45 21:45 RBC 2.97 L (3.80-5.40) m/uL Hgb 8.9 L (11.4-16.0) gm/dL Hct 28.8 L (34.0-46.0) % MCHC 30.7 L (31.0-37.0) g/dL RDW 19.1 H (11.5-15.5) % Lymphocytes # 0.9 L (1.0-4.8) k/uL Sodium 134 L (137-145) mmol/L Chloride 88 L (98-107) mmol/L Carbon Dioxide 34 H (22-30) mmol/L BUN 24 H (7-17) mg/dL Creatinine 8.89 H* (0.52-1.04) mg/dL Total Bilirubin 1.9 H (0.2-1.3) mg/dL AST 61 H (14-36) U/L Troponin I 0.117 H* (0.000-0.034) ng/mL Total Protein 8.7 H (6.3-8.2) g/dL 10/29/21 10/29/21 Range/Units 00:55 04:05 RBC (3.80-5.40) m/uL Hgb (11.4-16.0) gm/dL Hct (34.0-46.0) % MCHC (31.0-37.0) g/dL RDW (11.5-15.5) % Lymphocytes # (1.0-4.8) k/uL Sodium (137-145) mmol/L Chloride (98-107) mmol/L Carbon Dioxide (22-30) mmol/L BUN (7-17) mg/dL Creatinine (0.52-1.04) mg/dL Total Bilirubin (0.2-1.3) mg/dL AST (14-36) U/L Troponin I 0.102 H* 0.105 H* (0.000-0.034) ng/mL Total Protein (6.3-8.2) g/dL Thrombosis Risk Factor Assmnt - Choose All That Apply Any of the Below Risk Factors Present?: Yes Each Factor Represents 1 point: Heart failure (<1month), Swollen legs (current) Other Risk Factors: No Other congenital or acquired thrombophilia - If yes, enter type in comment: No Thrombosis Risk Factor Assessment Total Risk Factor Score: 2 Thrombosis Risk Factor Assessment Level: Low Risk Assessment and Plan Assessment: Acute systolic CHF with ejection fraction 35-40% Elevated troponin, rule out cardiac causes versus secondary to renal disease End-stage renal disease on hemodialysis Mild RLQ pain tenderness without rebound tenderness Hypertension, uncontrolled on admission Asthma, not active tissue Chronic anemia History of anxiety and depression, not an active issue Plan: This is a pleasant 31 years old female who presents with CHF review of her end- stage renal disease Continue with hemodialysis. per recommendation of Plate Inspector Cardiology consult Check KUB Resume her antihypertensive of clonidine, hydralazine, nifedipine Labs and medication were reviewed.. Continue same treatment. Continue with symptomatic treatment. Resume home medication. Monitor lytes and vitals. DVT and GI prophylaxis. Further recommendations depends on the clinical course of the patient DVT prophylaxis: Subcutaneous heparin GI Prophylaxis: Pepcid Prognosis is guarded
--- NOTE | 2021-10-29 12:40 | P.NPCON ---
History of Present Illness - Reason for Consult end stage renal disease - History of Present Illness Patient is a 31-year-old female with end-stage renal disease on hemodialysis on a Wednesday schedule. Patient has a history of failed renal transplant, hypertension, asthma, Ardee myopathy, anxiety and depression. Patient was admitted to the hospital with complaints of increased shortness of breath. Patient stated that she has not been eating much for about 1-2 weeks. She has not had much fluid taken off at dialysis as she has not been above her dry weight. However it appears that patient may have actually lost weight. Chest x-ray shows evidence of pulmonary vascular congestion. Patient has had history of cough productive of clear to yellowish phlegm. 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 Past Anesthesia/Blood Transfusion Reactions: No Reported Reaction Additional Past Anesthesia/Blood Transfusion Reaction / Comment(s): Pt has received blood in past without reaction. Past Psychological History: Anxiety, Depression Additional Psychological History / Comment(s): Pt resides with family. She is independent. She drives. She is disabled. She states she has anxiety and depression but no suicidal thoughts/ idealations or plans. Smoking Status: Never smoker Past Alcohol Use History: None Reported Additional Past Alcohol Use History / Comment(s): Pt states she started smoking socially as a teen and quit smoking in 2015. Past Drug Use History: Marijuana Additional Drug Use History / Comment(s): Couple times a week. - Past Family History Father Family Medical History: No Reported History Additional Family Medical History / Comment(s): Father is healthy and is 62 yrs old. Mother Family Medical History: No Reported History Additional Family Medical History / Comment(s): Mother is healthy and is 60 yrs old. Medications and Allergies Home Medications Medication Instructions Recorded Confirmed Type Albuterol Sulfate [Proair Hfa] 2 puff INHALATION RT-Q6H PRN 01/22/16 10/29/21 History hydrALAZINE HCL [Apresoline] 100 mg PO TID 11/16/18 10/29/21 History Cinacalcet HCl [Sensipar] 180 mg PO MOWEFR 02/26/19 10/29/21 History Calcium Acetate [Phoslo] 1,334 mg PO AC-TID 05/01/20 10/29/21 History Lidocaine-Prilocaine Cream [Emla 1 applic TOPICAL DAILY PRN 05/01/20 10/29/21 History Cream 2.5%/2.5%] NIFEdipine [Procardia XL] 90 mg PO DAILY 05/01/20 10/29/21 History Ondansetron [Zofran] 4 - 8 mg PO Q8H PRN 05/01/20 10/29/21 History calcitrioL [Calcitriol] 2 mcg PO MOWEFR 10/29/21 10/29/21 History cloNIDine HCL [Catapres] 0.3 mg PO TID 10/29/21 10/29/21 History hydrOXYzine HCL [Atarax] 25 mg PO TID PRN 10/29/21 10/29/21 History Allergies Allergy/AdvReac Type Severity Reaction Status Date / Time vancomycin Allergy Anaphylaxis Verified 10/29/21 07:26 hydralazine AdvReac Rapid Verified 10/29/21 07:26 Heart Rate WHEN GIVEN THROUGH IV Physical Exam Vitals: Vital Signs Temp Pulse Pulse Resp BP BP Pulse Ox 10/29/21 08:25 98.2 F 99 20 180/104 94 L 10/29/21 04:00 98.3 F 92 18 168/90 97 10/29/21 02:20 98.3 F 88 18 173/102 100 10/29/21 02:00 88 18 10/29/21 00:48 95 16 160/110 100 10/29/21 00:10 94 16 180/116 100 10/28/21 22:27 102 H 16 181/120 96 03/29/22 19:19 98.3 F 96 18 174/110 96 Intake and Output 10/28/21 10/29/21 10/29/21 22:59 06:59 14:59 Output Total 0 Balance 0 Output: Urine 0 Other: Weight 63.503 kg 63.503 kg 63.503 kg Patient is stable, mildly short of breath Examination of the heart S1 and S2 Examination lungs decreased breath sounds at the bases with basilar crackles Examination of the abdomen reveals it to be soft nontender Examination lower extremities shows trace edema bilaterally PLATE MOLDER exam grossly intact Results - Lab Results Most recent lab results Calcium 8.5 mg/dL (8.4-10.2) 10/28/21 21:45 Magnesium 2.2 mg/dL (1.6-2.3) 10/28/21 21:45 10/28/21 21:45 10/28/21 21:45 Assessment and Plan Assessment: 1. End-stage renal disease on hemodialysis on a Wednesday schedule 2. Volume overload 3. Cardiomyopathy EF 35-40% 4. Acute on chronic systolic CHF 5. CK D mineral bone disorder 6. Hypertension partly volume sensitive 7. Possible bronchitis Plan: Hemodialysis today UF 2-3 L as tolerated Continue Sensipar and PhosLo Add Aranesp for anemia of chronic disease
[2021-10-29] MEDS ORDERED: DARBEPOETIN ALFA 60 MCG/0.3 ML SYRINGE SQ SCH (13:00)
[2021-10-29] MEDS: CINACALCET 30 MG TAB PO SCH (13:37)
[2021-10-29] MEDS: CALCIUM ACETATE 667 MG TAB PO SCH ×2 (13:37→18:00)
[2021-10-29] MEDS: LOSARTAN 50 MG TAB PO SCH (13:37)
--- NOTE | 2021-10-29 14:39 | XR ---
EXAMINATION TYPE: XR KUB DATE OF EXAM: 10/29/2021 2:21 PM CLINICAL HISTORY: Pain. TECHNIQUE: Two portable supine KUB images of the abdomen are obtained. COMPARISON: CT abdomen and pelvis June 05, 2020. FINDINGS: Scattered gas is seen in non-distended small and large bowel loops including rectum. Surgic al clips in the right pelvis is redemonstrated. Persisting cardiomegaly with new left basilar opacity . Visualized osseous structures are intact. IMPRESSION: Overall nonobstructive bowel gas pattern. Cardiomegaly redemonstrated with new left basilar acute inf iltrate and/or atelectasis and possible new small to tiny left pleural effusion. Correlate clinically .
[2021-10-29] MEDS ORDERED: IBUPROFEN 400 MG TAB PO PRN (15:18)
[2021-10-29] MEDS: traMADol 50 MG TAB PO PRN (16:03)
--- NOTE | 2021-10-29 19:19 | ECHOF ---
Referral Reason:Heart Failure MEASUREMENTS -------- HEIGHT: 157.5 cm WEIGHT: 63.5 kg BP: RVIDd: 3.0 cm (< 3.3) IVSd: 1.4 cm (0.6 - 1.1) LVIDd: 5.6 cm (3.9 - 5.3) LVPWd: 1.5 cm (0.6 - 1.1) IVSs: 1.7 cm LVIDs: 4.6 cm LVPWs: 1.8 cm LA Diam: 4.5 cm (2.7 - 3.8) LAESV Index (A-L): 62.20 ml/m Ao Diam: 3.3 cm (2.0 - 3.7) AV Cusp: 1.8 cm (1.5 - 2.6) LA Diam: 4.4 cm (2.7 - 3.8) MV EXCURSION: 14.924 mm (> 18.000) MV EF SLOPE: 47 mm/s (70 - 150) EPSS: 1.6 cm MV E Minesh: 1.38 m/s MV DecT: 129 ms MV A Minesh: 0.73 m/s MV E/A Ratio: 1.89 AV maxP.21 mmHg AV meanP.61 mmHg AR PHT: 349 ms RAP: 5.00 mmHg RVSP: 89.09 mmHg FINDINGS -------- Sinus rhythm. This was a technically adequate study. The left ventricular size is normal. There is moderate concentric left ventricular hypertrophy. O verall left ventricular systolic function is mild-moderately impaired with, an EF between 40 - 45 %. Posterior hypokinesis The right ventricle is normal in size. LA is severely dilated >40 ml/m2 The right atrial size is normal. There is [id number] aortic regurgitation. There is mild aortic stenosis present. Peak/mean gradient across the Aortic Valve is 21.21mmHg / 11.61mmHg. Moderate mitral regurgitation is present. Moderate to severe tricuspid regurgitation present. There is severe pulmonary hypertension. The r ight ventricular systolic pressure, as measured by Doppler, is 89.09mmHg. Moderate pulmonic regurgitation. There is no pericardial effusion. CONCLUSIONS -------- 1. The left ventricular size is normal. 2. There is moderate concentric left ventricular hypertrophy. 3. Overall left ventricular systolic function is mild-moderately impaired with, an EF between 40 - 45 %. 4. Posterior hypokinesis 5. The right ventricle is normal in size. 6. LA is severely dilated >40 ml/m2 7. The right atrial size is normal. 8. There is [id number] aortic regurgitation. 9. There is mild aortic stenosis present. 10. Peak/mean gradient across the Aortic Valve is 21.21mmHg / 11.61mmHg. 11. Moderate mitral regurgitation is present. 12. Moderate to severe tricuspid regurgitation present. 13. There is severe pulmonary hypertension. 14. The right ventricular systolic pressure, as measured by Doppler, is 89.09mmHg. 15. Moderate pulmonic regurgitation. 16. There is no pericardial effusion. PARTNERSHIP MANAGER: Rosa Latham RDCS
[2021-10-30] MEDS: traMADol 50 MG TAB PO PRN ×2 (00:08→15:24)
[2021-10-30] MEDS: CALCIUM ACETATE 667 MG TAB PO SCH ×3 (09:01→18:49)
[2021-10-30] MEDS: HEPARIN SODIUM,PORCINE/PF 5,000 UNIT/0.5 ML SYRINGE SQ SCH ×2 (09:01→20:25)
[2021-10-30] MEDS: LOSARTAN 50 MG TAB PO SCH (09:02)
[2021-10-30] MEDS: NIFEdipine XL 90 MG TAB.ER.24 PO SCH (09:02)
[2021-10-30] MEDS: hydrALAZINE HCL 50 MG TAB PO SCH ×3 (09:02→20:26)
[2021-10-30] MEDS: cloNIDine HCL 0.1 MG TAB PO SCH ×3 (09:02→21:44)
[2021-10-30] MEDS: FAMOTIDINE 20 MG TAB PO SCH (09:02)
--- NOTE | 2021-10-30 11:13 | P.PN ---
Subjective This is a pleasant 31 years old -[place] female with past medical history of end-stage renal disease on hemodialysis, hypertension, asthma, chronic anemia and cardiomyopathy nonischemic with ejection fraction 35-40%, anxiety and depression Patient was sent by her PCP for pneumonia as she was told by her PCP. She wants to see Celia Doe her PCP team for coughing, decreased appetite dyspnea and chest pain for more than 5 days, she's been complaining of from back and upper chest pain about 8/10. No dyspnea or tachypnea at rest, she has some cough and yellow phlegm. She denies dyspnea at rest or orthopnea. She no urinary tract symptoms, no diarrhea or vomiting, Livan smoker she smokes a pack per day Also has been complaining of from right lower quadrant pain, looks mild with no rebound tenderness and abdominal of soft She denies smoking, alcohol or illicit drugs. She is hemodynamically stable, afebrile and saturating 97% on 2 L oxygen via nasal cannula. On admission her blood pressure was elevated 181/120, currently blood pressure 168/90 She is with anemia with hemoglobin 8.9, rest of CBC is unremarkable. BMP is re viewed, liver enzymes not significantly elevated. Troponin is elevated 0.11 and 0.10 0.10. Initial 2.2 and hCG qualitative not detected. Influenza-type A and B and RSV and coronavirus are undetected EKG showing normal sinus rhythm at [address]-T changes Chest x-ray showing pulmonary edema and cardiomegaly and worsening congestive heart failure In the emergency room she received in the lap rate, hydralazine and pain management 10/30/2021 Patient is awake and alert she still complaining from some back pain with movement. Over she did not complain from abdominal pain today. Her KUB is negative. Her blood pressure is better controlled 147/87. She is complaining of from coughing and increased secretion and she is asking for antibiotics. Pro-calcitonin is pending No diarrhea. She is saturating 100% on 2 L as well. Losartan 50 mg daily is added. Echocardiogram showed ejection fraction of 40-45% Patient symptoms most likely related to her uncontrolled blood pressure rather than ACS Objective - Vital Signs Vital signs: Vital Signs Temp 98.1 F 10/30/21 04:00 Pulse 76 10/30/21 04:00 Resp 16 10/30/21 04:00 BP 149/90 10/30/21 04:00 Pulse Ox 100 10/30/21 08:53 Intake & Output 10/29/21 10/30/21 10/30/21 18:59 06:59 18:59 Intake Total 700 250 0 Output Total 3000 Balance -2300 250 0 Weight 63.503 kg 61.7 kg Intake: Oral 400 250 0 Hemodialysis 300 Output: Urine 0 Hemodialysis 3000 Other: # Voids 1 # Bowel Movements 0 - Exam GENERAL: The patient is alert and oriented x3, not in any acute distress. Well developed, well nourished. HEENT: Pupils are round and equally reacting to light. EOMI. No scleral icterus. No conjunctival pallor. Normocephalic, atraumatic. No pharyngeal erythema. No thyromegaly. CARDIOVASCULAR: S1 and S2 present. No murmurs, rubs, or gallops. PULMONARY: Chest is clear to auscultation, no wheezing or crackles. ABDOMEN: Soft, nontender, nondistended, normoactive bowel sounds. No palpable organomegaly. MUSCULOSKELETAL: No joint swelling or deformity. EXTREMITIES: No cyanosis, clubbing, or pedal edema. NEUROLOGICAL: Gross neurological examination did not reveal any focal deficits. SKIN: No rashes. No petechiae - Labs CBC & Chem 7: 10/28/21 21:45 10/28/21 21:45 Labs: Microbiology - Last 24 Hours (Table) 10/28/21 21:30 Blood Culture - Preliminary Blood No Growth after 24 hours 10/28/21 21:45 Blood Culture - Preliminary Blood No Growth after 24 hours Assessment and Plan Assessment: Acute systolic CHF with ejection fraction 35-40% Elevated troponin, rule out cardiac causes versus secondary to renal disease End-stage renal disease on hemodialysis Mild RLQ pain tenderness without rebound tenderness Hypertension, uncontrolled on admission Asthma, not active tissue Chronic anemia History of anxiety and depression, not an active issue Plan: This is a pleasant 31 years old female who presents with CHF review of her end- stage renal disease Continue with hemodialysis. per recommendation of [facility] consult Start losartan 50 mg Resume her antihypertensive of clonidine, hydralazine, nifedipine follow-up pro-calcitonin Labs and medication were reviewed.. Continue same treatment. Continue with symptomatic treatment. Resume home medication. Monitor lytes and vitals. DVT and GI prophylaxis. Further recommendations depends on the clinical course of t he patient DVT prophylaxis: Subcutaneous heparin GI Prophylaxis: Pepcid Prognosis is guarded
[2021-10-30 12:06] LABS: Calcium 7.9 mg/dL (8.4-10.2); Potassium 3.9 mmol/L (3.5-5.1)
--- NOTE | 2021-10-30 12:14 | P.PN ---
Subjective Progress Note Date: 10/30/21 HISTORY OF PRESENT ILLNESS: This is a 31-year-old female with a past medical history significant for end- stage renal disease on hemodialysis secondary to polycystic kidney disease, c ardiomyopathy, congestive heart failure, pulmonary hypertension, and hypertension. Patient follows in the office with Dr. Larios. We have been asked to see the patient in consultation for abnormal troponins. Patient examined at the bedside. patient states she has been feeling short of breath for the past couple weeks and having a productive cough. She states she went to her primary care physician yesterday because she thought she had a sinus infection. She states that the troponin x-ray told her she had pneumonia and recommended that she come to the hospital. This morning the patient states her shortness of breath has improved. She reports some mild chest discomfort this morning. She states the pain is worse every time she takes a deep breath. She denies any radiation of the pain. Denies any nausea or vomiting. She is scheduled to have hemodialysis this morning. T.he patient reports having a cardiac cath performed at [facility] a few years ago. She is unsure of the results * EKG reveals sinus mechanism with nonspecific ST-T wave changes. LVH. * Chest xray pulmonary edema and cardiomegaly increased compared to old examined consistent with worsening congestive heart failure. * Laboratory data: WBC 5.9. Hemoglobin 8.9. Platelet count 183. Sodium 134. Potassium 5.0. B UN 24. Creatinine 8.89. Lactic acid 1.2. troponin 0.117. 0.102. 0.105. ProBNP 114,000. * Current home cardiac medications include Catapres 0.3 mg 3 times a day, hydralazine 100 mg 3 times a day, and Procardia 90 mg daily * Most recent echocardiogram obtained in September 2020 revealed ejection fraction 30-35%, moderate to severe aortic regurgitation, moderate mitral regurgitation, moderate tricuspid regurgitation, and moderately increased pulmonary artery systolic pressure 10/30/2021 Patient examined at the bedside. Patient denies chest pain or pressure. Denies SOB. She underwent hemodialysis yesterday with removal of 3 L. Patient's blood pressure is significantly improved today with a recent reading of 147/87. Echocardiogram completed revealing ejection fraction 40-45%, posterior hypokinesis, bgqf-[id number] aortic regurgitation, mild aortic stenosis, mo derate mitral regurgitation, moderate to severe tricuspid regurgitation, and severe pulmonary hypertension. PHYSICAL EXAM: VITAL SIGNS: Reviewed. GENERAL: Well-developed in no acute distress. HEENT: Head is normocephalic. Pupils are equal, round. Sclerae anicteric. Mucous membranes of the mouth are moist. Neck supple. No JVD or thyromegaly LUNGS: Respirations even and unlabored. Lungs diminished. HEART: Regular rate and rhythm. S1 and S2 heard. systolic murmur noted. ABDOMEN: Soft. Nondistended. Nontender. EXTREMITIES: Normal range of motion. No clubbing or cyanosis. Peripheral pulses intact. 1+ bilateral lower extremity edema NEUROLOGIC: Awake and alert. Oriented x 3. ASSESSMENT: Shortness of breath Possible pneumonia, per XR at PCP per patient End-stage renal disease on hemodialysis Abnormal troponins, no evidence of ACS, suspect secondary to CKD Cardiomyopathy, suspected to be nonischemic Acute on chronic heart failure with reduced ejection fraction Hypertension PLAN: Continue current cardiac medications Continue to monitor blood pressure Await labs this morning. If potassium remains stable, we will sign off. Patient may follow up outpatient with Dr. Larios Nurse practitioner note has been reviewed by physician. Signing provider agrees with the documented findings, assessment, and plan of care. Objective - Vital Signs Vital signs: Vital Signs Temp 98.7 F 10/30/21 08:00 Pulse 72 10/30/21 08:00 Resp 16 10/30/21 08:00 BP 147/87 10/30/21 08:00 Pulse Ox 100 10/30/21 08:53 Intake & Output 10/29/21 10/30/21 10/30/21 18:59 06:59 18:59 Intake Total 700 250 0 Output Total 3000 Balance -2300 250 0 Weight 63.503 kg 61.7 kg Intake: Oral 400 250 0 Hemodialysis 300 Output: Urine 0 Hemodialysis 3000 Other: # Voids 1 # Bowel Movements 0 - Labs CBC & Chem 7: 10/28/21 21:45 10/28/21 21:45 Labs: Microbiology - Last 24 Hours (Table) 10/28/21 21:30 Blood Culture - Preliminary Blood No Growth after 24 hours 10/28/21 21:45 Blood Culture - Preliminary Blood No Growth after 24 hours
--- NOTE | 2021-10-30 12:16 | P.PN ---
Subjective Patient is seen for follow-up for end-stage renal disease. She was admitted to the hospital with complaints of shortness of breath. Patient has evidence of volume overload. She was dialyzed yesterday with 3 L of ultrafiltration. Patient tolerated it well. Blood pressure is also improved. Patient is scheduled for hemodialysis again tomorrow. Her dry weight will be adjusted as outpatient Objective - Vital Signs Vital signs: Vital Signs Temp 98.7 F 10/30/21 08:00 Pulse 72 10/30/21 08:00 Resp 16 10/30/21 08:00 BP 147/87 10/30/21 08:00 Pulse Ox 100 10/30/21 08:53 Intake & Output 10/29/21 10/30/21 10/30/21 18:59 06:59 18:59 Intake Total 700 250 0 Output Total 3000 Balance -2300 250 0 Weight 63.503 kg 61.7 kg Intake: Oral 400 250 0 Hemodialysis 300 Output: Urine 0 Hemodialysis 3000 Other: # Voids 1 # Bowel Movements 0 - Exam Patient is awake, comfortable, not in any acute distress Examination of the heart S1 and S2 Exertion lungs bilateral breath sounds are heard Abdomen is soft nontender Examination lower extremities shows no evidence of edema 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 End-stage renal disease on hemodialysis on a Wednesday schedule 2. Volume overload 3. Cardiomyopathy EF 35-40% 4. Acute on chronic systolic CHF 5. CK D mineral bone disorder 6. Hypertension partly volume sensitive 7. Possible bronchitis Plan: Hemodialysis in a.m. Adjust estimated dry weight as outpatient
[2021-10-31] MEDS: CALCIUM ACETATE 667 MG TAB PO SCH ×3 (08:36→18:30)
[2021-10-31] MEDS: FAMOTIDINE 20 MG TAB PO SCH (08:36)
[2021-10-31] MEDS: cloNIDine HCL 0.1 MG TAB PO SCH ×3 (10:16→22:19)
[2021-10-31] MEDS: hydrALAZINE HCL 50 MG TAB PO SCH ×3 (10:16→22:19)
[2021-10-31] MEDS: HEPARIN SODIUM,PORCINE/PF 5,000 UNIT/0.5 ML SYRINGE SQ SCH ×2 (10:16→22:20)
[2021-10-31] MEDS: LOSARTAN 50 MG TAB PO SCH (10:17)
[2021-10-31] MEDS: NIFEdipine XL 90 MG TAB.ER.24 PO SCH (10:17)
[2021-10-31] MEDS: traMADol 50 MG TAB PO PRN ×2 (14:54→22:19)
[2021-10-31] MEDS: CINACALCET 30 MG TAB PO SCH (14:56)
[2021-10-31] MEDS: ONDANSETRON 4 MG TAB PO PRN ×2 (16:53→22:20)
--- NOTE | 2021-10-31 17:03 | P.PN ---
Subjective Patient is seen for follow-up for end-stage renal disease. She was admitted to the hospital with complaints of shortness of breath. Patient has evidence of volume overload. She was dialyzed on 10/29/21 with 3 L of ultrafiltration. Patient tolerated it well. Blood pressure is also improved. Patient is seen on HD today Tolerating Rx well. Increase goal to 4L Her dry weight will be adjusted as outpatient Objective - Vital Signs Vital signs: Vital Signs Temp 97.7 F 10/31/21 14:15 Pulse 74 10/31/21 14:54 Resp 16 10/31/21 14:54 BP 110/77 10/31/21 14:54 Pulse Ox 93 L 10/31/21 14:54 Intake & Output 10/30/21 10/31/21 10/31/21 18:59 06:59 18:59 Intake Total 360 830 300 Output Total 4000 Balance 360 830 -3700 Weight 61.3 kg Intake: Oral 360 830 Hemodialysis 300 Output: Hemodialysis 4000 Other: # Bowel Movements 0 - Exam Patient is awake, comfortable, not in any acute distress Examination of the heart S1 and S2 Exertion lungs bilateral breath sounds are heard Abdomen is soft nontender Examination lower extremities shows no evidence of edema RECORD LABEL INTERN exam grossly intact - Labs CBC & Chem 7: 10/28/21 21:45 10/30/21 11:30 Labs: Abnormal Lab Results - Last 24 Hours (Table) 10/30/21 Range/Units 11:20 Procalcitonin 1.08 H (0.02-0.09) ng/mL Microbiology - Last 24 Hours (Table) 10/28/21 21:30 Blood Culture - Preliminary Blood No Growth after 48 hours 10/28/21 21:45 Blood Culture - Preliminary Blood No Growth after 48 hours Assessment and Plan Assessment: 1. End-stage renal disease on hemodialysis on a Wednesday schedule 2. Volume overload 3. Cardiomyopathy EF 35-40% 4. Acute on chronic systolic CHF 5. CK D mineral bone disorder 6. Hypertension partly volume sensitive 7. Possible bronchitis Plan: Increase goal UF to 4L today. If pt is not discharged she will be diayzed again tomorrow. Adjust estimated dry weight as outpatient
[2021-10-31] MEDS ORDERED: HYDROcodone/APAP 5-325MG 1 EACH TAB PO STA (22:36)
[2021-11-01] MEDS: FAMOTIDINE 20 MG TAB PO SCH (09:50)
[2021-11-01] MEDS: CALCIUM ACETATE 667 MG TAB PO SCH ×3 (09:50→16:51)
[2021-11-01] MEDS: cloNIDine HCL 0.1 MG TAB PO SCH ×3 (09:50→19:17)
[2021-11-01] MEDS: traMADol 50 MG TAB PO PRN ×2 (09:50→16:51)
[2021-11-01] MEDS: hydrALAZINE HCL 50 MG TAB PO SCH ×3 (09:50→19:19)
[2021-11-01] MEDS: LOSARTAN 50 MG TAB PO SCH (09:51)
[2021-11-01] MEDS: HEPARIN SODIUM,PORCINE/PF 5,000 UNIT/0.5 ML SYRINGE SQ SCH ×2 (09:51→19:19)
[2021-11-01] MEDS: NIFEdipine XL 90 MG TAB.ER.24 PO SCH (09:52)
--- NOTE | 2021-11-01 12:48 | P.PN ---
Subjective Patient is seen for follow-up for end-stage renal disease. She was admitted to the hospital with complaints of shortness of breath. Patient has evidence of volume overload. She was dialyzed on 10/29/21 with 3 L of ultrafiltration. Patient tolerated it well. Blood pressure is also improved. Patient has had extra treatments for volume overload. She had 4 L of ultrafiltration yesterday. And is scheduled for an extra treatment today. Her dry weight will be adjusted as outpatient Objective - Vital Signs Vital signs: Vital Signs Temp 97.4 F L 11/01/21 07:42 Pulse 69 11/01/21 07:42 Resp 17 11/01/21 07:42 BP 126/80 11/01/21 07:42 Pulse Ox 100 11/01/21 07:42 Intake & Output 10/31/21 11/01/21 11/01/21 18:59 06:59 18:59 Intake Total 300 Output Total 4000 Balance -3700 Weight 58.4 kg Intake: Hemodialysis 300 Output: Urine 0 Hemodialysis 4000 - Exam Patient is awake, comfortable, not in any acute distress Examination of the heart S1 and S2 Exertion lungs bilateral breath sounds are heard Abdomen is soft nontender Examination lower extremities shows no evidence of edema O[employer] 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 End-stage renal disease on hemodialysis on a Wednesday schedule 2. Volume overload, much improved 3. Cardiomyopathy EF 35-40% 4. Acute on chronic systolic CHF 5. CK D mineral bone disorder 6. Hypertension partly volume sensitive 7. Possible bronchitis Plan: Extra treatment of hemodialysis today with goal UF 2-3 L. Patient can be discharged postdialysis and follow up for her outpatient treatment on 11/03/2021
[2021-11-01 17:33] VITALS: BP 98/62; PULSE 85; RESP 16; TEMP 97.2
--- NOTE | 2021-11-03 14:31 | P.DS ---
Providers Date of admission: 10/28/21 23:55 Expected date of discharge: 11/01/21 Attending physician: Agnieszka Travis Consults: 10/28/21 23:44 Consult Physician Urgent Consulting Provider: Robin Thompson Consult Reason/Comments: Congestive heart failure, uncontrolled hypertension Do you want consulting provider notified?: Yes, Notify in am Primary care physician: [facility] Course: Final diagnosis Acute systolic CHF with ejection fraction 35-40% Elevated troponin, rule out cardiac causes versus secondary to renal disease End-stage renal disease on hemodialysis Mild RLQ pain tenderness without rebound tenderness Hypertension, uncontrolled on admission Asthma, not active tissue Chronic anemia History of anxiety and depression, not an active issue Discharge disposition Patient is being discharged in a stable condition with guarded prognosis to home. Patient will follow-up with Dr. Du in the outpatient setting upon discharge. Patient is to continue with current medications per cardiology and will follow-up with Dr. Vizcaino. Total time taken is greater than 35 minutes. Hospital course This is a 31-year-old female who was recently admitted with being sent from primary care provider for possible pneumonia as patient was having increased coughing decreased appetite with dyspnea and chest pain that had been ongoing for over 5 days. Patient receives dialysis Wednesday/Wednesday/Wednesday and has been evaluated by nephrology and was maintained on dialysis. Blood cultures remain negative and patient is afebrile. Cardiology also evaluated the patient for the chest pain and patient was cleared for discharge. Patient scheduled to receive another dose of hemodialysis today and is reported to feeling much better and would like to go home today. Currently no reports of chest pain, shortness of breath, or palpitations. Patient is afebrile. No reports of nausea or vomiting and patient is tolerating diet. Patient will be discharged home today. Guarded prognosis. Physical exam: GENERAL: Well-developed in no acute distress. HEENT: Head is normocephalic. Pupils are equal, round. Sclerae anicteric. Mucous membranes of the mouth are moist. Neck supple. No JVD or thyromegaly LUNGS: Respirations even and unlabored. Lungs essentially clear to auscultation bilaterally. HEART: Irregular rate and rhythm. S1 and S2 heard. ABDOMEN: Soft. Nondistended. Nontender. EXTREMITIES: Normal range of motion. No clubbing or cyanosis. Peripheral pulses intact. No lower extremity edema NEUROLOGIC: Awake and alert. Oriented x 3. Please refer to medication reconciliation sheet for a list of medications. The impression and plan of care has been dictated by Mona Bhatt, Nurse Practitioner as directed. Dr. Miguel MD I have performed a history and examination and MDM of this patient, discussed the same with the dictator, and agree with the dictator's assessment and plan as written ,documented as a scribe. Based on total visit time, I have performed more than 50% of the visit. . Patient Condition at Discharge: Fair Plan - Discharge Summary Discharge Rx Participant: Yes New Discharge Prescriptions: New Losartan [Cozaar] 50 mg PO DAILY #30 tab Darbepoetin Aamir [Aranesp] 60 mcg SQ Q7D each Famotidine [Pepcid] 20 mg PO DAILY #30 tab Acetaminophen Tab [Tylenol] 650 mg PO Q4HR PRN tab PRN Reason: Fever And/ Or Pain traMADol HCl [Ultram] 50 mg PO TID PRN #9 tab PRN Reason: Pain Continue Albuterol Sulfate [Proair Hfa] 2 puff INHALATION RT-Q6H PRN PRN Reason: Shortness Of Breath hydrALAZINE HCL [Apresoline] 100 mg PO TID Cinacalcet HCl [Sensipar] 180 mg PO MOWEFR Ondansetron [Zofran] 4 - 8 mg PO Q8H PRN PRN Reason: Nausea NIFEdipine [Procardia XL] 90 mg PO DAILY Lidocaine-Prilocaine Cream [Emla Cream 2.5%/2.5%] 1 applic TOPICAL DAILY PRN PRN Reason: PORT ACCESS Calcium Acetate [PhosLo] 1,334 mg PO AC-TID hydrOXYzine HCL [Atarax] 25 mg PO TID PRN PRN Reason: Anxiety cloNIDine HCL [Catapres] 0.3 mg PO TID calcitrioL [Calcitriol] 2 mcg PO MOWEFR Discharge Medication List Albuterol Sulfate [Proair Hfa] 2 puff INHALATION RT-Q6H PRN 01/22/16 [History] hydrALAZINE HCL [Apresoline] 100 mg PO TID 11/16/18 [History] Cinacalcet HCl [Sensipar] 180 mg PO MOWEFR 02/26/19 [History] Calcium Acetate [PhosLo] 1,334 mg PO AC-TID 05/01/20 [History] Lidocaine-Prilocaine Cream [Emla Cream 2.5%/2.5%] 1 applic TOPICAL DAILY PRN 05/01/20 [History] NIFEdipine [Procardia XL] 90 mg PO DAILY 05/01/20 [History] Ondansetron [Zofran] 4 - 8 mg PO Q8H PRN 05/01/20 [History] calcitrioL [Calcitriol] 2 mcg PO MOWEFR 10/29/21 [History] cloNIDine HCL [Catapres] 0.3 mg PO TID 10/29/21 [History] hydrOXYzine HCL [Atarax] 25 mg PO TID PRN 10/29/21 [History] Acetaminophen Tab [Tylenol] 650 mg PO Q4HR PRN tab 11/01/21 [Rx] Darbepoetin Aamir [Aranesp] 60 mcg SQ Q7D each 11/01/21 [Rx] Famotidine [Pepcid] 20 mg PO DAILY #30 tab 11/01/21 [Rx] Losartan [Cozaar] 50 mg PO DAILY #30 tab 11/01/21 [Rx] traMADol HCl [Ultram] 50 mg PO TID PRN #9 tab 11/01/21 [Rx] Follow up Appointment(s)/Referral(s): Temitope Doe [facility] [Primary Care Provider] - 11/07/21 10:45 am Evangelista Larios MD [STAFF PHYSICIAN] - 11/06/21 8:15 am Patient Instructions/Handouts: Heart Failure (ER), Chronic Kidney Disease (DC), Dialysis Diet (DC) Activity/Diet/Wound Care/Special Instructions: Dry Weight 11/01/21: 56.6 kg Activity limited until follow up follow up with primary care provider on discharge follow up nephrology in 1 week continue taking medications as prescribed continue same hemodialysis schedule M/W/F continue renal diet Discharge/Stand Alone Forms: Work/School Release / Restrict Discharge Disposition: HOME SELF-CARE
--- NOTE | 2021-12-10 19:20 | P.PN ---
Subjective Progress Note Date: 10/31/21 31 years old -[place] female with past medical history of end-stage renal disease on hemodialysis, hypertension, asthma, chronic anemia and cardiomyopathy nonischemic with ejection fraction 35-40%, anxiety and depression Patient was sent by her PCP for pneumonia as she was told by her PCP. She wants to see Celia Doe her PCP team for coughing, decreased appetite dyspnea and chest pain for more than 5 days, she's been complaining of from back and upper chest pain about 8/10. No dyspnea or tachypnea at rest, she has some cough and yellow phlegm. She denies dyspnea at rest or orthopnea. She no urinary tract symptoms, no diarrhea or vomiting, Livan smoker she smokes a pack per day Also has been complaining of from right lower quadrant pain, looks mild with no rebound tenderness and abdominal of soft She denies smoking, alcohol or illicit drugs. Objective - Vital Signs Vital signs: Vital Signs Temp 98.0 F 10/31/21 07:24 Pulse 73 10/31/21 07:24 Resp 16 10/31/21 07:24 BP 112/73 10/31/21 07:24 Pulse Ox 97 10/31/21 08:19 Intake & Output 10/30/21 10/31/21 10/31/21 18:59 06:59 18:59 Intake Total 360 830 Balance 360 830 Weight 61.3 kg Intake: Oral 360 830 Other: # Bowel Movements 0 - Exam GENERAL: The patient is alert and oriented x3, not in any acute distress. Well developed, well nourished. HEENT: Pupils are round and equally reacting to light. EOMI. No scleral icterus. No conjunctival pallor. Normocephalic, atraumatic. No pharyngeal erythema. No thyromegaly. CARDIOVASCULAR: S1 and S2 present. No murmurs, rubs, or gallops. PULMONARY: Chest is clear to auscultation, no wheezing or crackles. ABDOMEN: Soft, nontender, nondistended, normoactive bowel sounds. No palpable organomegaly. MUSCULOSKELETAL: No joint swelling or deformity. EXTREMITIES: No cyanosis, clubbing, or pedal edema. NEUROLOGICAL: Gross neurological examination did not reveal any focal deficits. SKIN: No rashes. No petechiae - Labs CBC & Chem 7: 10/28/21 21:45 10/30/21 11:30 Labs: Abnormal Lab Results - Last 24 Hours (Table) 10/30/21 10/30/21 Range/Units 11:20 11:30 Sodium 132 L (137-145) mmol/L Chloride 96 L (98-107) mmol/L BUN 19 H (7-17) mg/dL Creatinine 8.16 H* (0.52-1.04) mg/dL Calcium 7.9 L (8.4-10.2) mg/dL Procalcitonin 1.08 H (0.02-0.09) ng/mL Microbiology - Last 24 Hours (Table) 10/28/21 21:30 Blood Culture - Preliminary Blood No Growth after 48 hours 10/28/21 21:45 Blood Culture - Preliminary Blood No Growth after 48 hours Assessment and Plan Assessment: Acute systolic CHF with ejection fraction 35-40% Elevated troponin, rule out cardiac causes versus secondary to renal disease End-stage renal disease on hemodialysis Mild RLQ pain tenderness without rebound tenderness Hypertension, uncontrolled on admission Asthma, not active tissue Chronic anemia History of anxiety and depression, not an active issue Plan: This is a pleasant 31 years old female who presents with CHF review of her end- stage renal disease Continue with hemodialysis. per recommendation of [facility] consult Start losartan 50 mg Resume her antihypertensive of clonidine, hydralazine, nifedipine follow-up pro-calcitonin Labs and medication were reviewed.. Continue same treatment. Continue with symptomatic treatment. Resume home medication. Monitor lytes and vitals. DVT and GI prophylaxis. Further recommendations depends on the clinical course of the patient DVT prophylaxis: Subcutaneous heparin GI Prophylaxis: Pepcid Prognosis is guarded
== END 2021-11-01 20:30 | disposition home or self-care (01) | DRG 291 ==
LOC: EC 18:52 → 3SCARD 23:55 → 4SSUR 10-31 01:40
PROVIDERS: ADMIT Hospitalist; ATTEND Hospitalist
DX: I13.2 Hypertensive heart and chronic kidney disease with heart failure and with stage 5 chronic kidney disease, or end stage renal disease (principal); I50.23 Acute on chronic systolic (congestive) heart failure; N18.6 End stage renal disease; Q61.3 Polycystic kidney, unspecified; T86.12 Kidney transplant failure; M54.50 Low back pain, unspecified; D63.1 Anemia in chronic kidney disease; F17.210 Nicotine dependence, cigarettes, uncomplicated; F32.A Depression, unspecified; J45.909 Unspecified asthma, uncomplicated; Z79.899 Other long term (current) drug therapy; F41.9 Anxiety disorder, unspecified; Z99.2 Dependence on renal dialysis; I27.20 Pulmonary hypertension, unspecified; I34.0 Nonrheumatic mitral (valve) insufficiency; I42.9 Cardiomyopathy, unspecified; Z20.822 Contact with and (suspected) exposure to COVID-19; E83.9 Disorder of mineral metabolism, unspecified; Z98.890 Other specified postprocedural states; R77.8 Other specified abnormalities of plasma proteins; N92.6 Irregular menstruation, unspecified; E55.9 Vitamin D deficiency, unspecified; N83.209 Unspecified ovarian cyst, unspecified side; G89.29 Other chronic pain; Z88.1 Allergy status to other antibiotic agents; Z88.8 Allergy status to other drugs, medicaments and biological substances
CPT/HCPCS: 36415; 71046; 74018; 80048; 80053; 82150; 83605; 83690; 83735; 83880; 84145; 84484; 84703; 85025; 87040; 87636; 90935; 93005; 93306; 94760; 96374; 96375; 99285

== ENCOUNTER 2022-05-26 10:30 | Emergency (ER) | payer MEDICARE, OTHER ==
[2022-05-26 10:35] VITALS: RESP 18; TEMP 98.7
--- NOTE | 2022-05-26 10:50 | ED ---
Chest Pain HPI - General Chief Complaint: Chest Pain Stated Complaint: chest pain Time Seen by Provider: 05/26/22 10:33 Source: patient Mode of arrival: EMS Limitations: no limitations - History of Present Illness Initial Comments: This patient is 31-year-old woman who presents to have evaluation of substernal chest pain. The patient states that it had come on today. She was at a dialysis session that started around 9:30 and then shortly after the patient started having substernal burning chest pain. Patient states that her usual dialysis days are Wednesday. She had an extra session today so that she could learn the technique associated with the home dialysis machine. No associated symptoms. MD Complaint: chest pain -: minutes(s) Onset: other (During dialysis) Pain Location: substernal Pain Radiation: none Severity: moderate Quality: other (Burning) Consistency: constant Improves With: nothing Worsens With: inspiration Treatments Prior to Arrival: none - Related Data Home Medications Medication Instructions Recorded Confirmed Albuterol Sulfate [Proair Hfa] 2 puff INHALATION RT-Q6H PRN 01/22/16 05/26/22 hydrALAZINE HCL [Apresoline] 100 mg PO TID 11/16/18 05/26/22 Cinacalcet HCl [Sensipar] 120 mg PO MOWEFR 02/26/19 05/26/22 Calcium Acetate [PhosLo] 2,668 mg PO TID-W/MEALS 05/01/20 05/26/22 Lidocaine-Prilocaine Cream [Emla 1 applic TOPICAL DAILY PRN 05/01/20 05/26/22 Cream 2.5%/2.5%] NIFEdipine [Procardia XL] 90 mg PO DAILY 05/01/20 05/26/22 calcitrioL [Calcitriol] 3 mcg PO MOWEFR 10/29/21 05/26/22 cloNIDine HCL [Catapres] 0.3 mg PO TID 10/29/21 05/26/22 hydrOXYzine HCL [Atarax] 25 mg PO TID PRN 10/29/21 05/26/22 Acetaminophen Tab [Tylenol Tab] 1,000 mg PO Q6HR PRN 05/26/22 05/26/22 Calcium Acetate [Phoslo] 667 - 1,334 mg PO BID PRN 05/26/22 05/26/22 Fluticasone Propion/Salmeterol 2 puff INHALATION RT-BID 05/26/22 05/26/22 [Advair Hfa 115-21 Mcg Inhaler] carvediloL [Coreg] 3.125 mg PO BID 05/26/22 05/26/22 Allergies Allergy/AdvReac Type Severity Reaction Status Date / Time vancomycin Allergy Anaphylaxis Verified 05/26/22 11:30 hydralazine AdvReac Rapid Verified 05/26/22 11:30 Heart Rate WHEN GIVEN THROUGH IV Review of Systems ROS Statement: Those systems with pertinent positive or pertinent negative responses have been documented in the HPI. ROS Other: All systems not noted in ROS Statement are negative. Constitutional: Denies: fever, chills, weakness Respiratory: Denies: cough, dyspnea Cardiovascular: Reports: chest pain. Denies: palpitations, orthopnea, edema, syncope Gastrointestinal: Denies: abdominal pain, nausea, vomiting, diarrhea Genitourinary: Denies: dysuria, hematuria Musculoskeletal: Denies: back pain Skin: Denies: rash Neurological: Denies: headache, weakness, numbness EKG Findings - EKG Results: EKG: interpreted by ERMShannan, sinus rhythm (Rate 76 bpm) - Blocks, [place], Hypertrophy, ST Abn: QRS axis and voltage: left axis deviation (-30 to -90) Chamber hypertrophy or enlargement: left ventricular hypertrophy or enlargement (LVE) Past Medical History Past Medical History: Asthma, Heart Failure, Hypertension, Renal Disease Additional Past Medical History / Comment(s): ESRD d/t being born with polycystic kidney disease, failed kidney transplant, hemodialysis (M,W,Fr), metabolic bone disease, chronic anemia, nonischemic myopathy with EF 35-40%/mild to moderate mitral valve regurgitation, vitamin D deficiency, chronic low back pain, ovarian cysts, irregular menses, History of Any Multi-Drug Resistant Organisms: None Reported Past Surgical History: Heart Catheterization, Hernia Repair Additional Past Surgical History / Comment(s): 06/14/18 cardiac cath at [facility] to check coronary pressures, 11/15/09 Failed kidney transplant R pelvis, dialysis catheter in and out, current L upper arm AVG, supra pubic hernia repair, transvaginal mesh, wisdom teeth extraction with anesthesia. Past Anesthesia/Blood Transfusion Reactions: No Reported Reaction Additional Past Anesthesia/Blood Transfusion Reaction / Comment(s): Pt has received blood in past without reaction. Past Psychological History: Anxiety, Depression Smoking Status: Never smoker Past Alcohol Use History: None Reported Past Drug Use History: Marijuana - Past Family History Father Family Medical History: No Reported History Additional Family Medical History / Comment(s): Father is healthy and is 62 yrs old. Mother Family Medical History: No Reported History Additional Family Medical History / Comment(s): Mother is healthy and is 60 yrs old. General Exam Limitations: no limitations General appearance: alert, in no apparent distress Head exam: Present: atraumatic, normocephalic, normal inspection Eye exam: Present: normal appearance. Absent: scleral icterus, conjunctival injection Neck exam: Present: normal inspection Respiratory exam: Present: normal lung sounds bilaterally. Absent: respiratory distress, wheezes, rales, rhonchi, stridor Cardiovascular Exam: Present: regular rate, normal rhythm, normal heart sounds. Absent: systolic murmur, diastolic murmur, rubs, gallop GI/Abdominal exam: Present: soft. Absent: distended, tenderness, guarding, rebound, rigid, mass, pulsatile mass Extremities exam: Present: normal inspection, normal capillary refill. Absent: pedal edema, calf tenderness Back exam: Present: normal inspection Neurological exam: Present: alert Skin exam: Present: warm, dry, intact, normal color. Absent: rash Course Vital Signs 05/26/22 05/26/22 10:31 13:29 Temperature 98.7 F Pulse Rate 80 77 Respiratory 18 18 Rate Blood Pressure 172/108 173/110 O2 Sat by Pulse 96 96 Oximetry Disposition Clinical Impression: Chest pain Disposition: HOME SELF-CARE Condition: Good Instructions (If sedation given, give patient instructions): Chest Pain (ED) Is patient prescribed a controlled substance at d/c from ED?: No Referrals: Karo Alicea MD [Primary Care Provider] - 1-2 days
[2022-05-26] MEDS ORDERED: MORPHINE SULFATE 4 MG/ML SYRINGE IV STA ×2 (10:53→14:46)
[2022-05-26 11:13] LABS: Anisocytosis Slight; Basophils % (A) 1 %; Eosinophils # (A) 0.2 k/uL (0-0.7); Eosinophils % (A) 4 %; HCT 33.7 % (34.0-46.0); HGB 10.8 gm/dL (11.4-16.0); Hypochromasia Moderate; Lymphocytes # (A) 0.8 k/uL (1.0-4.8); Lymphocytes % (A) 15 %; MCH 29.7 pg (25.0-35.0); MCHC 31.9 g/dL (31.0-37.0); MCV 93.1 fL (80.0-100.0); Macrocytosis Slight; Mean Platelet Volume 9.8; Monocytes # (A) 0.1 k/uL (0-1.0); Monocytes % (A) 2 %; Neutrophils # (A) 4.3 k/uL (1.3-7.7); Neutrophils % (A) 79 %; Platelet Count 125 k/uL (150-450); RBC 3.62 m/uL (3.80-5.40); RDW 18.6 % (11.5-15.5); WBC 5.5 k/uL (3.8-10.6)
[2022-05-26 11:35] LABS: Prothrombin Time 11.2 sec (9.0-12.0)
[2022-05-26 11:43] LABS: Albumin 4.4 g/dL (3.5-5.0); Calcium 7.7 mg/dL (8.4-10.2); Total Bilirubin 1.1 mg/dL (0.2-1.3); Total Protein 7.6 g/dL (6.3-8.2)
--- NOTE | 2022-05-26 11:44 | XR ---
EXAMINATION TYPE: XR chest 2V DATE OF EXAM: 05/26/2022 COMPARISON: 10/28/2021 HISTORY: 31-year-old female with chest pain TECHNIQUE: PA and lateral views FINDINGS: Heart is mild to moderately enlarged. Interstitial prominence. Some hazy lower lung densities. No ple ural effusion. IMPRESSION: 1. Similar mild to moderate cardiomegaly. Correlate for any established diagnosis. 2. Some interstitial prominence and mild patchy bibasilar densities. Possible etiologies include mild pulmonary vascular congestion, bronchitis, asthma, and atypical pneumonias.
[2022-05-26 11:47] LABS: Magnesium 1.9 mg/dL (1.6-2.3); Potassium 5.1 mmol/L (3.5-5.1)
[2022-05-26] MEDS ORDERED: MAG HYDROX/AL HYDROX/SIMETH 30 ML, HYOSCYAMINE ELIXIR 10 ML, LIDOCAINE VISCOUS 2% 10 ML PO STA ×3 (13:12)
[2022-05-26 13:32] VITALS: BP 173/110; PULSE 77
[2022-05-26] MEDS ORDERED: ASPIRIN 325 MG TAB PO STA (15:13)
== END 2022-05-26 15:29 | disposition home or self-care (01) ==
LOC: EC 10:30
DX: R07.9 Chest pain, unspecified (principal); I10 Essential (primary) hypertension; J45.909 Unspecified asthma, uncomplicated; I50.9 Heart failure, unspecified; F41.9 Anxiety disorder, unspecified; F32.A Depression, unspecified; F12.90 Cannabis use, unspecified, uncomplicated; Z79.51 Long term (current) use of inhaled steroids; Z79.899 Other long term (current) drug therapy; Z88.1 Allergy status to other antibiotic agents; Z88.8 Allergy status to other drugs, medicaments and biological substances
CPT/HCPCS: 36415; 93005; 85379; 83880; 80053; 83735; 84484; 85025; 85610; 85730; 71046; 99285; 96374; 96376; J2270

== ENCOUNTER 2022-06-09 06:45 | Inpatient (IN) | payer MEDICARE, OTHER ==
[2022-06-09] MEDS ORDERED: hydrALAZINE HCL 50 MG TAB PO STA (07:33)
[2022-06-09] MEDS ORDERED: cloNIDine HCL 0.1 MG TAB PO STA (07:34)
[2022-06-09] MEDS ORDERED: carvediloL 3.125 MG TAB PO STA (07:35)
[2022-06-09 08:11] LABS: Anisocytosis Slight; Basophils % (A) 1 %; Eosinophils # (A) 0.2 k/uL (0-0.7); Eosinophils % (A) 3 %; HCT 31.1 % (34.0-46.0); HGB 9.8 gm/dL (11.4-16.0); Hypochromasia Moderate; Lymphocytes # (A) 0.7 k/uL (1.0-4.8); Lymphocytes % (A) 13 %; MCH 29.1 pg (25.0-35.0); MCHC 31.6 g/dL (31.0-37.0); MCV 92.1 fL (80.0-100.0); Mean Platelet Volume 9.5; Monocytes # (A) 0.2 k/uL (0-1.0); Monocytes % (A) 3 %; Neutrophils # (A) 4.3 k/uL (1.3-7.7); Neutrophils % (A) 80 %; Platelet Count 164 k/uL (150-450); RBC 3.38 m/uL (3.80-5.40); RDW 18.1 % (11.5-15.5); WBC 5.4 k/uL (3.8-10.6)
[2022-06-09] MEDS ORDERED: ONDANSETRON 4 MG/2 ML VIAL IVP STA (08:11)
[2022-06-09] MEDS ORDERED: MORPHINE SULFATE 4 MG/ML SYRINGE IVP STA (08:11)
--- NOTE | 2022-06-09 08:22 | XR ---
EXAMINATION TYPE: [id number]! DATE OF EXAM: 06/09/2022 COMPARISON: 05/26/2022 INDICATION: Chest pain in the right arm TECHNIQUE: Frontal and lateral views of the chest are obtained. FINDINGS: The heart size is large. The pulmonary vasculature is normal. There are increased lower lobe lung markings greater on the right. Correlate for developing volume ov erload and pulmonary edema. Atelectasis or pneumonia can be considered. Follow-up can be performed. IMPRESSION: 1. Mild increasing lung markings bilateral lung bases greater at the right base. Correlate for atypic al pulmonary edema. Differential diagnosis could include atelectasis and developing pneumonia. 2. Cardiomegaly
--- NOTE | 2022-06-09 08:25 | ED ---
Chest Pain HPI - General Chief Complaint: Chest Pain Stated Complaint: Chest pain, blurred vision, dialysis pt Time Seen by Provider: 06/09/22 07:02 Source: patient, RN notes reviewed Mode of arrival: ambulatory Limitations: no limitations - History of Present Illness Initial Comments: 31-year-old female presents emergency Department chief complaint of chest pain shortness of breath. Patient is on on the emergency department has a history of ERSD, hypertension she states she went to dialysis yesterday in which she had to stop her treatment short because she started developing blurred vision. Patient states that she woke up this morning felt like her heart was racing she describes as a pounding sensation of her chest. Patient did not take her blood pressure medications morning which she takes Coreg, clonidine, hydralazine in the morning. Patient denies any nausea vomiting denies any significant weight gain leg swelling she does complain of some orthopnea type symptoms. She denies any reports of fever or any cough or cold-like symptoms. - Related Data Home Medications Medication Instructions Recorded Confirmed Albuterol Sulfate [Proair Hfa] 2 puff INHALATION RT-Q6H PRN 01/21/05/26/22 hydrALAZINE HCL [Apresoline] 100 mg PO TID 11/16/18 05/26/22 Cinacalcet HCl [Sensipar] 120 mg PO MOWEFR 02/26/19 05/26/22 Calcium Acetate [PhosLo] 2,668 mg PO TID-W/MEALS 05/01/20 05/26/22 Lidocaine-Prilocaine Cream [Emla 1 applic TOPICAL DAILY PRN 05/01/20 05/26/22 Cream 2.5%/2.5%] NIFEdipine [Procardia XL] 90 mg PO DAILY 05/01/20 05/26/22 calcitrioL [Calcitriol] 3 mcg PO MOWEFR 10/29/21 05/26/22 cloNIDine HCL [Catapres] 0.3 mg PO TID 10/29/21 05/26/22 hydrOXYzine HCL [Atarax] 25 mg PO TID PRN 10/29/21 05/26/22 Acetaminophen Tab [Tylenol Tab] 1,000 mg PO Q6HR PRN 05/26/22 05/26/22 Calcium Acetate [Phoslo] 667 - 1,334 mg PO BID PRN 05/26/22 05/26/22 Fluticasone Propion/Salmeterol 2 puff INHALATION RT-BID 05/26/22 05/26/22 [Advair Hfa 115-21 Mcg Inhaler] carvediloL [Coreg] 3.125 mg PO BID 05/26/22 05/26/22 Allergies Allergy/AdvReac Type Severity Reaction Status Date / Time vancomycin Allergy Anaphylaxis Verified 06/09/22 06:56 hydralazine AdvReac Rapid Verified 06/09/22 06:56 Heart Rate WHEN GIVEN THROUGH IV Review of Systems ROS Statement: Those systems with pertinent positive or pertinent negative responses have been documented in the HPI. ROS Other: All systems not noted in ROS Statement are negative. EKG Findings - EKG Comments: EKG Findings:: EKG performed at 17:25 interpreted by me sinus rhythm with first- degree AV block, rate of 71 WA 234 QRS 106 QT/ QTC 471/493 Past Medical History Past Medical History: Asthma, Heart Failure, Hypertension, Renal Disease Additional Past Medical History / Comment(s): ESRD d/t being born with polycystic kidney disease, failed kidney transplant, hemodialysis (M,W,Fr), metabolic bone disease, chronic anemia, nonischemic myopathy with EF 35-40%/mild to moderate mitral valve regurgitation, vitamin D deficiency, chronic low back pain, ovarian cysts, irregular menses, History of Any Multi-Drug Resistant Organisms: None Reported Past Surgical History: Heart Catheterization, Hernia Repair Additional Past Surgical History / Comment(s): 06/14/18 cardiac cath at [facility] to check coronary pressures, 11/15/09 Failed kidney transplant R pelvis, dialysis catheter in and out, current L upper arm AVG, supra pubic hernia repair, transvaginal mesh, wisdom teeth extraction with anesthesia. Past Anesthesia/Blood Transfusion Reactions: No Reported Reaction Additional Past Anesthesia/Blood Transfusion Reaction / Comment(s): Pt has received blood in past without reaction. Past Psychological History: Anxiety, Depression Smoking Status: Never smoker Past Alcohol Use History: None Reported Past Drug Use History: Marijuana - Past Family History Father Family Medical History: No Reported History Additional Family Medical History / Comment(s): Father is healthy and is 62 yrs old. Mother Family Medical History: No Reported History Additional Family Medical History / Comment(s): Mother is healthy and is 60 yrs old. General Exam General appearance: alert, in no apparent distress Head exam: Present: atraumatic, normocephalic, normal inspection Eye exam: Present: normal appearance, PERRL, EOMI. Absent: scleral icterus, conjunctival injection, periorbital swelling ENT exam: Present: normal exam, normal oropharynx, mucous membranes moist Neck exam: Present: normal inspection, full ROM. Absent: tenderness, meningismus, lymphadenopathy Respiratory exam: Present: normal lung sounds bilaterally. Absent: respiratory distress, wheezes, rales, rhonchi, stridor Cardiovascular Exam: Present: regular rate, normal rhythm, normal heart sounds. Absent: systolic murmur, diastolic murmur, rubs, gallop, clicks Neurological exam: Present: alert, oriented X3 Skin exam: Present: warm, dry, intact, normal color. Absent: rash Course Vital Signs 06/09/22 06/09/22 06/09/22 06:54 07:20 08:06 Temperature 98.4 F Pulse Rate 77 74 81 Respiratory 18 18 18 Rate Blood Pressure 187/99 195/115 188/112 O2 Sat by Pulse 96 99 97 Oximetry 06/09/22 08:49 Temperature Pulse Rate 75 Respiratory 16 Rate Blood Pressure 202/112 O2 Sat by Pulse 98 Oximetry Disposition Clinical Impression: ESRD (end stage renal disease) on dialysis, Chest pain, Congestive heart failure, Pulmonary edema, Uncontrolled hypertension Disposition: ADMITTED IP TO THIS HOSP Condition: Fair Referrals: Karo Alicea MD [Primary Care Provider] - 1-2 days Time of Disposition: 09:22
[2022-06-09 08:26] LABS: INR 1.1 (<1.2); Partial Thromboplastin Time 25.8 sec (22.0-30.0); Prothrombin Time 11.5 sec (9.0-12.0)
[2022-06-09 09:02] LABS: Albumin 4.3 g/dL (3.5-5.0); Calcium 8.1 mg/dL (8.4-10.2); Magnesium 2.1 mg/dL (1.6-2.3); Potassium 4.1 mmol/L (3.5-5.1); Total Bilirubin 0.7 mg/dL (0.2-1.3); Total Protein 7.4 g/dL (6.3-8.2)
[2022-06-09] MEDS ORDERED: ENALAPRILAT 1.25 MG/ML 1 ML VIAL IVP STA (09:52)
[2022-06-09] MEDS ORDERED: NALOXONE 0.4 MG/ML 1 ML VIAL IV PRN (10:05)
[2022-06-09] MEDS ORDERED: hydrOXYzine HCL 25 MG TAB PO PRN (10:07)
[2022-06-09] MEDS ORDERED: ALBUTEROL NEBULIZED 2.5 MG/3 ML INHALATION PRN (10:07)
[2022-06-09] MEDS ORDERED: ACETAMINOPHEN TAB 500 MG TAB PO PRN (10:07)
[2022-06-09] MEDS ORDERED: CALCIUM ACETATE 667 MG TAB PO PRN (10:07)
[2022-06-09] MEDS ORDERED: hydrALAZINE HCL 20 MG/ML 1 ML VIAL IVP PRN (10:57)
--- NOTE | 2022-06-09 11:00 | P.NPCON ---
History of Present Illness - Reason for Consult end stage renal disease - History of Present Illness Reason for consultation: End-stage renal disease History of present illness: Patient is a 31-year-old female seen in consultation for end-stage renal disease. She is maintained on hemodialysis on Wednesday schedule. She is currently undergoing home hemodialysis training. Patient states she underwent hemodialysis on Wednesday but yesterday's treatment was cut short as patient felt anxious and short of breath. Patient states due to worsening shortness of breath she came to the hospital. Chest x-ray as it is a for fluid overload. Patient's blood pressures also high in the systolic 180s to low 200s. She denies fever or chills. No vomiting or diarrhea. No cough. Patient has history of systolic CHF with ejection fraction of 40-45% with moderate mitral and is regurgitation as well as severe pulmonary hypertension. Currently resting in bed. She is on 2 L nasal cannula. Patient was seen and examined in the emergency room. Vital signs are stable. Blood pressure high. General: Awake. No acute distress. HEENT: Head exam is unremarkable. LUNGS: Breath sounds decreased. HEART: Rate and Rhythm are regular. ABDOMEN: Soft, no distention. EXTREMITITES: Trace edema. Past Medical History Past Medical History: Asthma, Heart Failure, Hypertension, Renal Disease Additional Past Medical History / Comment(s): ESRD d/t being born with polycystic kidney disease, failed kidney transplant, hemodialysis (M,W,Fr), met abolic bone disease, chronic anemia, nonischemic myopathy with EF 35-40%/mild to moderate mitral valve regurgitation, vitamin D deficiency, chronic low back pain, ovarian cysts, irregular menses, History of Any Multi-Drug Resistant Organisms: None Reported Past Surgical History: Heart Catheterization, Hernia Repair Additional Past Surgical History / Comment(s): 06/14/18 cardiac cath at [facility] to check coronary pressures, 11/15/09 Failed kidney transplant R pelvis, dialysis catheter in and out, current L upper arm AVG, supra pubic hernia repair, transvaginal mesh, wisdom teeth extraction with anesthesia. Past Anesthesia/Blood Transfusion Reactions: No Reported Reaction Additional Past Anesthesia/Blood Transfusion Reaction / Comment(s): Pt has received blood in past without reaction. Past Psychological History: Anxiety, Depression Smoking Status: Never smoker Past Alcohol Use History: None Reported Past Drug Use History: Marijuana - Past Family History Father Family Medical History: No Reported History Additional Family Medical History / Comment(s): Father is healthy and is 62 yrs old. Mother Family Medical History: No Reported History Additional Family Medical History / Comment(s): Mother is healthy and is 60 yrs old. Medications and Allergies Home Medications Medication Instructions Recorded Confirmed Type Albuterol Sulfate [Proair Hfa] 2 puff INHALATION RT-Q6H PRN 01/22/16 05/26/22 History hydrALAZINE HCL [Apresoline] 100 mg PO TID 11/16/18 05/26/22 History Cinacalcet HCl [Sensipar] 120 mg PO MOWEFR 02/26/19 05/26/22 History Calcium Acetate [PhosLo] 2,668 mg PO TID-W/MEALS 05/01/20 05/26/22 History Lidocaine-Prilocaine Cream [Emla 1 applic TOPICAL DAILY PRN 05/01/20 05/26/22 History Cream 2.5%/2.5%] NIFEdipine [Procardia XL] 90 mg PO DAILY 05/01/20 05/26/22 History calcitrioL [Calcitriol] 3 mcg PO MOWEFR 10/29/21 05/26/22 History cloNIDine HCL [Catapres] 0.3 mg PO TID 10/29/21 05/26/22 History hydrOXYzine HCL [Atarax] 25 mg PO TID PRN 10/29/21 05/26/22 History Acetaminophen Tab [Tylenol Tab] 1,000 mg PO Q6HR PRN 05/26/22 05/26/22 History Calcium Acetate [Phoslo] 667 - 1,334 mg PO BID PRN 05/26/22 05/26/22 History Fluticasone Propion/Salmeterol 2 puff INHALATION RT-BID 05/26/22 05/26/22 History [Advair Hfa 115-21 Mcg Inhaler] carvediloL [Coreg] 3.125 mg PO BID 05/26/22 05/26/22 History Allergies Allergy/AdvReac Type Severity Reaction Status Date / Time vancomycin Allergy Anaphylaxis Verified 06/09/22 06:56 hydralazine AdvReac Rapid Verified 06/09/22 06:56 Heart Rate WHEN GIVEN THROUGH IV Physical Exam Vitals: Vital Signs Temp Pulse Resp BP Pulse Ox 06/09/22 08:49 75 16 202/112 98 06/09/22 08:06 81 18 188/112 97 06/09/22 07:20 74 18 195/115 99 06/09/22 06:54 98.4 F 77 18 187/99 96 Intake and Output 06/08/22 06/09/22 06/09/22 22:59 06:59 14:59 Other: Weight 62 kg Results - Lab Results Most recent lab results Calcium 8.1 mg/dL (8.4-10.2) L 06/09/22 07:58 Magnesium 2.1 mg/dL (1.6-2.3) 06/09/22 07:58 06/09/22 07:58 06/09/22 07:58 Assessment and Plan Plan: Assessment: 1. End-stage renal disease making on hemodialysis on Wednesday schedule. Currently undergoing home hemodialysis training. 2. Hypertensive urgency. 3. Volume overload. 4. Acute on chronic systolic CHF with ejection fraction of 40-45% with moderate mitral tricuspid regurgitation and severe pulmonary hypertension. 5. Anemia of chronic kidney disease. Rule out iron deficiency. 6. Chronic kidney disease mineral bone disease maintained on Sensipar and PhosLo. Plan: Hemodialysis today and again tomorrow. Increase dose of Coreg. Add IV when necessary hydralazine. Check iron studies. Thank you for the consultation. I will continue to follow the patient during her hospital stay.
[2022-06-09] MEDS: CALCIUM ACETATE 667 MG TAB PO SCH ×2 (13:12→17:06)
[2022-06-09] MEDS: ONDANSETRON 4 MG/2 ML VIAL IVP PRN ×2 (13:34→21:56)
[2022-06-09] MEDS: HYDROmorphone 0.5 MG/0.5 ML SYRINGE IVP PRN ×3 (13:43→21:56)
[2022-06-09] MEDS: NITROGLYCERIN OINT 1 INCH/GM PACKET TOPICAL SCH ×2 (13:43→17:20)
[2022-06-09 14:50] LABS: % Iron Saturation 32.52 (12.00-45.00)
[2022-06-09] MEDS ORDERED: ENALAPRILAT 1.25 MG/ML 1 ML VIAL IVP PRN (16:26)
[2022-06-09] MEDS: hydrALAZINE HCL 50 MG TAB PO SCH ×2 (17:20→21:05)
[2022-06-09] MEDS: cloNIDine HCL 0.1 MG TAB PO SCH ×2 (17:20→21:05)
[2022-06-09] MEDS: PANTOPRAZOLE 40 MG TABLET PO SCH (17:20)
[2022-06-09] MEDS ORDERED: carvediloL 3.125 MG TAB PO SCH (21:00)
[2022-06-09] MEDS: carvediloL 6.25 MG TAB PO SCH (21:05)
[2022-06-09 23:54] LABS: Hepatitis B Surface AB- Quant 17.5 mIU/mL; Hepatitis B Surface Antibody Reactive (Nonreactive)
[2022-06-10] MEDS: NITROGLYCERIN OINT 1 INCH/GM PACKET TOPICAL SCH ×2 (00:22→11:15)
--- NOTE | 2022-06-10 00:33 | HP ---
HISTORY AND PHYSICAL CHIEF COMPLAINT: Shortness of breath and pulmonary edema. HISTORY OF PRESENT ILLNESS: This 31-year-old woman with a past medical history of multiple medical problems including CHF, hypertension, history of asthma, chronic renal failure, hemodialysis, being followed by Dr. Huddleston in the outpatient setting. Apparently could not complete the dialysis yesterday, only half the time was utilized because the patient was symptomatic with some shortness of breath as well as some dizziness. So today, the patient became more short of breath and the patient came to [facility], was found to have acute pulmonary edema and was admitted for further evaluation and treatment. The patient also had some chest pressure in the anterior part of the chest and also some nausea and vomiting also. There is no history of any fever, rigors, or chills at this time. Nephrology has seen the patient and planning for hemodialysis also. The labs which I reviewed shows the creatinine is elevated. Troponin is found to be 0.053. BNP was also elevated. PAST MEDICAL HISTORY: Reviewed and include hemodialysis, chronic kidney disease, asthma. The rest of the history as well as the chart reviewed. HOME MEDICATIONS: Again, reviewed and include Atarax. Dose and rest of the medications reviewed. ALLERGIES: Vancomycin, hydralazine. FAMILY HISTORY: No history of heart disease or strokes in the family. SOCIAL HISTORY: No history of smoking, THC. REVIEW OF SYSTEMS: A 14-point review of systems is negative as mentioned earlier. PHYSICAL EXAMINATION: VITAL SIGNS: Pulse 68, blood pressure 160/96, respirations 18. NECK: Jugular venous distention in the root of the neck. EYES: Conjunctivae normal. CARDIOVASCULAR: S1, S2 muffled. Ejection murmur. RESPIRATION: Breath sounds diminished at the bases. A few scattered rhonchi and crackles. ABDOMEN: Soft, obese. LEGS: No edema. No swelling. NERVOUS SYSTEM: No focal deficits. SKIN: No ulcer. JOINTS: No active deforming arthropathy. LABORATORY DATA: Reviewed. Hemoglobin ntd. Other labs are noted. ASSESSMENT: 1. Congestive heart failure acute exacerbation from fluid overload. 2. Chronic kidney disease, hemodialysis. 3. Chest pain, possible unstable angina. 4. Vomiting, possible acute gastritis. 5. Rule out acute myocardial infarction with troponin 0.053. 6. History of asthma. 7. History of congestive heart failure. 8. Multiple medical issues. RECOMMENDATIONS: In this 31-year-old woman, who presented with multiple complex medical issues, we will monitor the patient closely. We will continue to monitor. symptomatic treatment for the pain will be provided. Cardiology evaluation. N.p.o. now. Otherwise, monitor blood pressure closely. Resume the home medications and also p.r.n. medications. Also discussed with the staff, discussed with the patient's family. Prognosis guarded. Further recommendations to follow. MMODL / IJN: [id number] / JOSH
[2022-06-10] MEDS: CALCIUM ACETATE 667 MG TAB PO SCH ×3 (05:37→17:15)
[2022-06-10] MEDS: PANTOPRAZOLE 40 MG TABLET PO SCH ×2 (05:38→17:15)
[2022-06-10] MEDS: HYDROmorphone 0.5 MG/0.5 ML SYRINGE IVP PRN ×4 (05:42→21:38)
--- NOTE | 2022-06-10 07:00 | XR ---
EXAMINATION TYPE: XR chest 1V portable DATE OF EXAM: 06/10/2022 CLINICAL HISTORY: Difficulty breathing and CHF progress study. TECHNIQUE: Single AP portable upright view of the chest is obtained. COMPARISON: Chest x-ray from one day earlier and older studies. FINDINGS: Persistent cardiomegaly. Persistent left greater than right bibasilar opacities. Persisten t mild interstitial edema. Osseous structures are intact. Surgical clips in the left upper extremity medial soft tissue are noted likely from vessel harvesting procedure. IMPRESSION: Cardiomegaly with left greater than right bibasilar acute infiltrate and/or atelectasis a nd mild interstitial edema redemonstrated. No significant change from one day earlier.
[2022-06-10 08:32] LABS: Anisocytosis Slight; Basophils # (A) 0.1 k/uL (0-0.2); Basophils % (A) 1 %; Eosinophils # (A) 0.2 k/uL (0-0.7); Eosinophils % (A) 6 %; HCT 30.9 % (34.0-46.0); HGB 9.2 gm/dL (11.4-16.0); Hypochromasia Marked; Lymphocytes # (A) 0.7 k/uL (1.0-4.8); Lymphocytes % (A) 16 %; MCHC 29.8 g/dL (31.0-37.0); Macrocytosis Slight; Mean Platelet Volume 9.3; Monocytes # (A) 0.1 k/uL (0-1.0); Monocytes % (A) 3 %; Neutrophils # (A) 2.9 k/uL (1.3-7.7); Neutrophils % (A) 72 %; Platelet Count 154 k/uL (150-450); RBC 3.29 m/uL (3.80-5.40); RDW 18.6 % (11.5-15.5)
[2022-06-10 08:37] LABS: Albumin 3.9 g/dL (3.5-5.0); Calcium 8.4 mg/dL (8.4-10.2); Potassium 3.8 mmol/L (3.5-5.1); Total Bilirubin 0.7 mg/dL (0.2-1.3); Total Protein 6.7 g/dL (6.3-8.2)
--- NOTE | 2022-06-10 08:53 | P.PN ---
Subjective Patient is seen in follow-up for end-stage renal disease. Tolerated 3 L ultrafiltration yesterday. Dyspnea improved. Denies chest pain or shortness of breath at this time. Vital signs are stable. Blood pressure high. General: Awake. No acute distress. HEENT: Head exam is unremarkable. On nasal cannula. LUNGS: Breath sounds decreased. HEART: Rate and Rhythm are regular. ABDOMEN: Soft, no distention. EXTREMITITES: Trace edema. Objective - Vital Signs Vital signs: Vital Signs Temp 97.8 F 06/10/22 08:00 Pulse 84 06/10/22 08:00 Resp 18 06/10/22 08:00 BP 191/95 06/10/22 08:00 Pulse Ox 98 06/10/22 08:31 FiO2 21 06/10/22 08:31 Intake & Output 06/09/22 06/10/22 06/10/22 18:59 06:59 18:59 Intake Total 420 Output Total 3300 Balance -2880 Weight 62 kg Intake: Oral 120 Hemodialysis 300 Output: Hemodialysis 3300 Other: Voiding Method Toilet Toilet - Labs CBC & Chem 7: 06/10/22 08:07 06/10/22 08:07 Labs: Abnormal Lab Results - Last 24 Hours (Table) 06/09/22 06/09/22 06/09/22 Range/Units 07:58 07:58 07:58 RBC (3.80-5.40) m/uL Hgb (11.4-16.0) gm/dL Hct (34.0-46.0) % MCHC (31.0-37.0) g/dL RDW (11.5-15.5) % Lymphocytes # (1.0-4.8) k/uL BUN 68 H (7-17) mg/dL Creatinine 14.53 H* (0.52-1.04) mg/dL Calcium 8.1 L (8.4-10.2) mg/dL TIBC 213 L (228-460) ug/dL Transferrin 152.0 L (204.0-354.0) mg/dL Ferritin 1609.0 H (10.0-291.0) ng/mL Troponin I 0.053 H* (0.000-0.034) ng/mL Hep Bs Antibody (Nonreactive) 06/09/22 06/10/22 06/10/22 Range/Units 15:15 08:07 08:07 RBC 3.29 L (3.80-5.40) m/uL Hgb 9.2 L (11.4-16.0) gm/dL Hct 30.9 L (34.0-46.0) % MCHC 29.8 L (31.0-37.0) g/dL RDW 18.6 H (11.5-15.5) % Lymphocytes # 0.7 L (1.0-4.8) k/uL BUN 38 H (7-17) mg/dL Creatinine 10.87 H* (0.52-1.04) mg/dL Calcium (8.4-10.2) mg/dL TIBC (228-460) ug/dL Transferrin (204.0-354.0) mg/dL Ferritin (10.0-291.0) ng/mL Troponin I (0.000-0.034) ng/mL Hep Bs Antibody Reactive A (Nonreactive) Assessment and Plan Plan: Assessment: 1. End-stage renal disease making on hemodialysis on Wednesday schedule. Currently undergoing home hemodialysis training. 2. Hypertensive urgency. Improved. 3. Volume overload. Improved with ultrafiltration. 4. Acute on chronic systolic CHF with ejection fraction of 40-45% with moderate mitral tricuspid regurgitation and severe pulmonary hypertension. 5. Anemia of chronic kidney disease. Iron replete. 6. Chronic kidney disease mineral bone disease maintained on Sensipar and PhosLo. Plan: Hemodialysis today. Increase nifedipine to 60 mg twice daily. Discussed with cardiology. Will further increase dose of Coreg if needed. Add Aranesp. Avoid ACEi/ARB and spironolactone due to frequent hyperkalemia. Follow-up echocardiogram.
[2022-06-10] MEDS ORDERED: NIFEdipine XL 90 MG TAB.ER.24 PO SCH (09:00)
[2022-06-10] MEDS: ISOSORBIDE MONONITRATE ER 30 MG TAB.ER.24H PO SCH (09:30)
[2022-06-10] MEDS: cloNIDine HCL 0.1 MG TAB PO SCH ×3 (09:30→21:37)
[2022-06-10] MEDS: carvediloL 6.25 MG TAB PO SCH ×2 (09:31→21:37)
[2022-06-10] MEDS: CINACALCET 30 MG TAB PO SCH (09:31)
[2022-06-10] MEDS: hydrALAZINE HCL 50 MG TAB PO SCH ×3 (09:31→21:37)
--- NOTE | 2022-06-10 10:01 | P.CRDCN ---
History of Present Illness History of present illness: This is a 31-year-old female with a past medical history significant for end- stage renal disease on hemodialysis secondary to polycystic kidney disease s/p kidney transplant 2009 and had rejection, cardiomyopathy, congestive heart failure, pulmonary hypertension, and hypertension. Patient follows in the office with Dr. Larios. We have been asked to see the patient in consultation for chest pain. Patient presents to the ER with shortness of breath, chest tightness and elevated blood pressure. Patient states she underwent dialysis on palpation with no changes. She did not miss any dialysis appointments. She endorses some upper chest tightness, nonradiating, sometimes occurs with activity and walking to the bathroom and getting dressed. She was more short of breath. She felt as if she had more fluid on her. She denies any nausea, vomiting, lightheadedness, dizziness, syncope or near syncope. No known history of CAD. She denies any history of [place], stroke, diabetes. She denies any tobacco use. Denies any alcohol or illicit drug use. DIAGNOSTICS * EKG reveals sinus mechanism with nonspecific ST-T wave abnormalities with T wave inversions in V5, V6. LVH. Prior EKG with similar findings * Chest xray cardiomegaly with left greater than right bibasilar acute infiltrate vs atelectasis. Mild edema. * Laboratory data: WBC 5.4. Hemoglobin 9.8. Platelet count 164. Sodium 138. Potassium 4.1. B UN 68. Creatinine 14.53. troponin 0.05. ProBNP 62,000 * Current home cardiac medications include Clonidine 0.3mg TID, hydralazine 100mg TID, Coreg 3.125mg BID, Nifedipine 90mg daily * Most recent echocardiogram obtained in 09/2021 revealed ejection fraction 40- 45%, mild to moderate aortic regurgitation, mild aortic stenosis with a peak/mean gradient of 21 mmHg/11 mmHg, moderate to severe tricuspid regurgitation, RVSP of 89 mmHg, moderate mitral regurgitation REVIEW OF SYSTEMS: At the time of my exam: CONSTITUTIONAL: Denies fever or chills. HEENT: Denies blurred vision, vision changes, or eye pain. Denies hemoptysis CARDIOVASCULAR: + chest pain. Denies orthopnea. Denies PND. Denies palpitations RESPIRATORY: + shortness of breath. GASTROINTESTINAL: Denies abdominal pain. Denies nausea or vomiting. HEMATOLOGIC: Denies bleeding disorders. GENITOURINARY: Denies any blood in urine. SKIN: Denies pruitis. Denies rash. PHYSICAL EXAM: VITAL SIGNS: Reviewed. GENERAL: Well-developed in no acute distress. HEENT: Head is normocephalic. Pupils are equal, round. Sclerae anicteric. Mucous membranes of the mouth are moist. Neck supple. No JVD or thyromegaly LUNGS: Respirations even and unlabored. Lungs diminished with bibasilar crackles HEART: Regular rate and rhythm. S1 and S2 heard. systolic murmur noted. ABDOMEN: Soft. Nondistended. Nontender. EXTREMITIES: Normal range of motion. No clubbing or cyanosis. Peripheral pulses intact. 1+ bilateral lower extremity edema NEUROLOGIC: Awake and alert. Oriented x 3. ASSESSMENT: Acute on chronic heart failure with reduced ejection fraction Chest pressure, suspect related to uncontrolled hypertension and heart failure End-stage renal disease on hemodialysis Abnormal troponins, suspect secondary to CKD, heart failure and hypertension Cardiomyopathy, ischemic vs non-ischemic, suspected nonischemic no known CAD Hypertension History of hyperkalemia, follows with nephrology patient has not been able to to lerate ACEI/ARB/entresto History of polycystic kidney disease s/p kidney transplant 2009 PLAN: Coreg increased to 6.25 mg BID Add Imdur 30mg daily Continue clonidine 0.3 mg TID, hydralazine 100 mg TID, nifedipine 60mg BID Obtain 2D echocardiogram to assess LV function and valvular abnormalities Monitor chest pain and consider cardiac catheterization based on patients symptoms, blood pressure and echo findings Further recommendations based on clinical course Nurse practitioner note has been reviewed by physician. Signing provider agrees with the documented findings, assessment, and plan of care. 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 History of Any Multi-Drug Resistant Organisms: None Reported Past Surgical History: Heart Catheterization, Hernia Repair Additional Past Surgical History / Comment(s): 06/14/18 cardiac cath at [facility] to check coronary pressures, 11/15/09 Failed kidney transplant R pelvis, dialysis catheter in and out, current L upper arm AVG, supra pubic hernia repair, transvaginal mesh, wisdom teeth extraction with anesthesia, 2016 failed kidney transplant Past Anesthesia/Blood Transfusion Reactions: No Reported Reaction Additional Past Anesthesia/Blood Transfusion Reaction / Comment(s): Pt has received blood in past without reaction. Past Psychological History: Anxiety, Depression Additional Psychological History / Comment(s): Pt resides with family. She is independent. She drives. She is disabled. She states she has anxiety and depression but no suicidal thoughts/ idealations or plans. Smoking Status: Never smoker Past Alcohol Use History: None Reported Past Drug Use History: None Reported, Marijuana - Past Family History Father Family Medical History: No Reported History Additional Family Medical History / Comment(s): Father is healthy and is 62 yrs old. Mother Family Medical History: No Reported History Additional Family Medical History / Comment(s): Mother is healthy and is 60 yrs old. Medications and Allergies Home Medications Medication Instructions Recorded Confirmed Type Albuterol Sulfate [Proair Hfa] 2 puff INHALATION RT-Q6H PRN 01/21/06/09/22 History hydrALAZINE HCL [Apresoline] 100 mg PO TID 11/16/18 06/09/22 History Cinacalcet HCl [Sensipar] 120 mg PO MOWEFR 02/26/19 06/09/22 History Calcium Acetate [PhosLo] 2,668 mg PO TID-W/MEALS 05/01/20 06/09/22 History Lidocaine-Prilocaine Cream [Emla 1 applic TOPICAL DAILY PRN 05/01/20 06/09/22 History Cream 2.5%/2.5%] NIFEdipine [Procardia XL] 90 mg PO DAILY 05/01/20 06/09/22 History calcitrioL [Calcitriol] 3 mcg PO MOWEFR 10/29/21 06/09/22 History cloNIDine HCL [Catapres] 0.3 mg PO TID 10/29/21 06/09/22 History hydrOXYzine HCL [Atarax] 25 mg PO TID PRN 10/29/21 06/09/22 History Acetaminophen Tab [Tylenol Tab] 1,000 mg PO Q6HR PRN 05/26/22 06/09/22 History Calcium Acetate [Phoslo] 667 - 1,334 mg PO BID PRN 05/26/22 06/09/22 History carvediloL [Coreg] 3.125 mg PO BID 05/26/22 06/09/22 History Allergies Allergy/AdvReac Type Severity Reaction Status Date / Time vancomycin Allergy Anaphylaxis Verified 06/09/22 13:26 hydralazine AdvReac Rapid Verified 06/09/22 13:26 Heart Rate WHEN GIVEN THROUGH IV Physical Exam Vitals: Vital Signs Temp Pulse Pulse Resp BP BP Pulse Ox 06/10/22 04:00 98.0 F 69 19 160/87 100 06/10/22 00:00 98.2 F 77 18 151/77 97 06/09/22 20:00 97.9 F 72 19 157/82 99 06/09/22 18:39 175/91 06/09/22 16:49 97.9 F 68 68 H 177/100 06/09/22 15:28 97.5 F L 64 18 161/76 96 06/09/22 13:00 68 06/09/22 12:56 97.8 F 68 18 165/96 97 06/09/22 11:36 75 16 160/102 99 06/09/22 11:00 73 16 173/111 97 06/09/22 08:49 75 16 202/112 98 06/09/22 08:06 81 18 188/112 97 06/09/22 07:20 74 18 195/115 99 Intake and Output 06/09/22 06/10/22 06/10/22 22:59 06:59 14:59 Intake Total 300 Output Total 3300 Balance -3000 Intake: Hemodialysis 300 Output: Hemodialysis 3300 Other: Voiding Method Toilet Toilet Results 06/10/22 08:07 06/10/22 08:07 Cardiac Enzymes 06/09/22 06/09/22 Range/Units 07:58 07:58 AST 20 (14-36) U/L Troponin I 0.053 H* (0.000-0.034) ng/mL Coagulation 06/09/22 Range/Units 07:58 PT 11.5 (9.0-12.0) sec APTT 25.8 (22.0-30.0) sec CBC 06/09/22 Range/Units 07:58 WBC 5.4 (3.8-10.6) k/uL RBC 3.38 L (3.80-5.40) m/uL Hgb 9.8 L (11.4-16.0) gm/dL Hct 31.1 L (34.0-46.0) % Plt Count 164 (150-450) k/uL Comprehensive Metabolic Panel 06/09/22 Range/Units 07:58 Sodium 138 (137-145) mmol/L Potassium 4.1 (3.5-5.1) mmol/L Chloride 102 (98-107) mmol/L Carbon Dioxide 22 (22-30) mmol/L BUN 68 H (7-17) mg/dL Creatinine 14.53 H* (0.52-1.04) mg/dL Glucose 90 (74-99) mg/dL Calcium 8.1 L (8.4-10.2) mg/dL AST 20 (14-36) U/L ALT 16 (4-34) U/L Alkaline Phosphatase 52 (38-126) U/L Total Protein 7.4 (6.3-8.2) g/dL Albumin 4.3 (3.5-5.0) g/dL Current Medications Generic Name Dose Route Start Last Admin Trade Name Freq PRN Reason Stop Dose Admin Acetaminophen 1,000 mg 06/09/22 10:07 Acetaminophen Tab 500 Mg Tab PO Q6HR PRN MILD Pain or Fever > 100.5 Albuterol Sulfate 2.5 mg 06/09/22 10:07 Albuterol Nebulized 2.5 Mg/3 Ml INHALATION RT-Q6H PRN Shortness Of Breath Calcitriol 3 mcg 06/10/22 09:00 Calcitriol 0.25 Mcg Cap PO MOWEFR [facility] Calcium Acetate 667 - 1,334 mg 06/09/22 10:07 Calcium Acetate 667 Mg Tab PO BID PRN WITH SNACKS Calcium Acetate 2,668 mg 06/09/22 12:30 06/10/22 05:37 Calcium Acetate 667 Mg Tab PO 2,668 mg TID-W/MEALS SELENE Administration Carvedilol 6.25 mg 06/09/22 21:00 06/09/22 21:05 Carvedilol 6.25 Mg Tab PO 6.25 mg BID SELENE Administration Cinacalcet 120 mg 06/10/22 09:00 Cinacalcet 30 Mg Tab PO MOWEFR [facility] Clonidine 0.3 mg 06/09/22 16:00 06/09/22 21:05 Clonidine Hcl 0.1 Mg Tab PO 0.3 mg TID SELENE Administration Enalaprilat 2.5 mg 06/09/22 16:26 06/09/22 18:39 Enalaprilat 1.25 Mg/Ml 1 Ml Vial IVP 2.5 mg Q6HR PRN Administration Blood Pressure - High Hydralazine HCl 100 mg 06/09/22 16:00 06/09/22 21:05 Hydralazine Hcl 50 Mg Tab PO 100 mg TID SELENE Administration Hydromorphone HCl 0.25 mg 06/09/22 13:25 06/10/22 05:42 Hydromorphone 0.5 Mg/0.5 Ml Syringe IVP 0.25 mg Q3HR PRN Administration MODERATE TO SEVERE Pain Hydroxyzine HCl 25 mg 06/09/22 10:07 Hydroxyzine Hcl 25 Mg Tab PO TID PRN Anxiety Naloxone HCl 0.2 mg 06/09/22 10:05 Naloxone 0.4 Mg/Ml 1 Ml Vial IV Q2M PRN Opioid Reversal Nifedipine 90 mg 06/10/22 09:00 Nifedipine Xl 90 Mg Tab.Er.24 PO DAILY [facility] Nitroglycerin 1 inch 06/09/22 13:45 06/10/22 00:22 Nitroglycerin Oint 1 Inch/Gm Packet TOPICAL 1 inch Q8HR SELENE Administration Ondansetron HCl 4 mg 06/09/22 13:25 06/09/22 21:56 Ondansetron 4 Mg/2 Ml Vial IVP 4 mg Q6HR PRN Administration Nausea And Vomiting Pantoprazole Sodium 40 mg 06/09/22 17:30 06/10/22 05:38 Pantoprazole 40 Mg Tablet PO 40 mg AC-BID SELENE Administration Intake and Output 06/09/22 06/10/22 06/10/22 22:59 06:59 14:59 Intake Total 300 Output Total 3300 Balance -3000 Intake: Hemodialysis 300 Output: Hemodialysis 3300 Other: Voiding Method Toilet Toilet 06/09/22 07:58 06/09/22 07:58
[2022-06-10 10:29] VITALS: BMI 25.0
[2022-06-10] MEDS: ONDANSETRON 4 MG/2 ML VIAL IVP PRN (12:39)
--- NOTE | 2022-06-10 19:28 | CA ---
Transthoracic Echo Report Name: Rosi Winslow Age: 31 Gender: F : 1990 Exam Date: 06/10/2022 09:57 Exam Location: [place] [facility] Ht (in): 62 Wt (lb): 163 Ordering Physician: Liz Willson Attending/Referring Phys: Product Test Engineer Keesha Keith RDCS Procedure CPT: Indications: LV function, chest pain, CHF Cardiac Hx: on dialysis Technical Quality: Good Contrast 1: Total Dose (mL): Contrast 2: Total Dose (mL): MEASUREMENTS (Male / Female) Normal Values 2D ECHO LV Diastolic Diameter PLAX 5.1 cm 4.2 - 5.9 / 3.9 - 5.3 cm LV Systolic Diameter PLAX 3.4 cm IVS Diastolic Thickness 1.4 cm 0.6 - 1.0 / 0.6 - 0.9 cm LVPW Diastolic Thickness 1.5 cm 0.6 - 1.0 / 0.6 - 0.9 cm LV Relative Wall Thickness 0.6 RV Internal Dim ED PLAX 3.4 cm LA Systolic Diameter LX 4.9 cm 3.0 - 4.0 / 2.7 - 3.8 cm LA Volume 98.1 cm??? 18 - 58 / 22 - 52 cm??? M-MODE Aortic Root Diameter MM 3.1 cm MV E Point Septal Separation 1.3 cm AV Cusp Separation MM 2.4 cm DOPPLER AV Peak Velocity 218.5 cm/s AV Peak Gradient 19.1 mmHg AV Mean Velocity 137.4 cm/s AV Mean Gradient 9.1 mmHg AV Velocity Time Integral 42.5 cm AI Peak Velocity 520.7 cm/s AI Peak Gradient 108.5 mmHg AI Pressure Half Time 803.3 ms MV Peak Velocity 292.3 cm/s MV Peak Gradient 34.2 mmHg MV Mean Velocity 114.6 cm/s MV Mean Gradient 7.7 mmHg MV Velocity Time Integral 56.0 cm MV Area PHT 3.1 cm??? Mitral E Point Velocity 166.6 cm/s Mitral A Point Velocity 68.3 cm/s Mitral E to A Ratio 2.4 MV Deceleration Time 240.9 ms TR Peak Velocity 417.9 cm/s TR Peak Gradient 69.9 mmHg Right Ventricular Systolic Press 73.9 mmHg FINDINGS Left Ventricle Low-normal left ventricular systolic function was EF around 50%. Moderate concentric LVH Right Ventricle Mild right ventricular dilatation. Severe pulmonary hypertension. Right ventricular systolic pressure estimated at 74 mm hg. Right Atrium Normal right atrial size. Left Atrium Severely increased left atrial diameter. Severely increased left atrial volume. Mildly increased left atrial area. No evidence for an atrial septal defect. Mitral Valve Mitral valve thickened. Mild to moderate mitral regurgitation. There is a mean gradient of 8 mmHg on MV Aortic Valve Trileaflet aortic valve. Focal thickening of the aortic valve cusps. Moderate aortic regurgitation. Tricuspid Valve Structurally normal tricuspid valve. Mild tricuspid regurgitation. Pulmonic Valve Structurally normal pulmonic valve. Mild pulmonic regurgitation. Pericardium Normal pericardium. No pericardial effusion. Aorta Normal size aortic root and proximal ascending aorta. CONCLUSIONS Low-normal left ventricular systolic function was EF around 50%. Moderate concentric LVH Moderate aortic insufficiency [id number] mitral regurgitation Previewed by: Dr. Luke Rodriguez MD (Electronically Signed) Final Date: 10 June 2022 19:27
--- NOTE | 2022-06-10 22:19 | PN ---
PROGRESS NOTE DATE OF SERVICE: 06/10/2022 SUBJECTIVE: This is a 31-year-old woman who was admitted with significant pulmonary edema, is being closely monitored. The patient is undergoing hemodialysis with 4 L of fluid to be taken off. No chest pain. No palpitation. BNP 62,000. PHYSICAL EXAMINATION: VITAL SIGNS: Pulse is 84, blood pressure 190/95, respirations 18. CHEST: A few scattered rhonchi and crackles. CARDIOVASCULAR: S1, S2. ABDOMEN: Soft. NERVOUS SYSTEM: No focal deficits. LABS: Reviewed. 2-D echo report is not available. ASSESSMENT: 1. Congestive heart failure acute exacerbation from fluid overload. Ejection fraction unknown. 2. Chronic kidney disease, hemodialysis. 3. Chest pain, possible unstable angina. 4. Vomiting, possible acute gastritis. 5. Rule out acute [id number]-elevation myocardial infarction with troponin 0.053. 6. History of asthma. 7. History of congestive heart failure. 8. Multiple medical issues. RECOMMENDATIONS: Recommend to continue current management and symptomatic treatment. Otherwise, closely follow with Cardiology. A 2D echo has been ordered. Otherwise continue with hemodialysis. Repeat labs in the morning. Overall prognosis guarded. Further recommendations to follow. The patient is symptomatically better. MMODL / IJN: [id number] /
[2022-06-11] MEDS: HYDROmorphone 0.5 MG/0.5 ML SYRINGE IVP PRN ×6 (01:58→21:59)
[2022-06-11] MEDS: PANTOPRAZOLE 40 MG TABLET PO SCH ×2 (06:56→16:47)
[2022-06-11] MEDS: CALCIUM ACETATE 667 MG TAB PO SCH ×3 (06:56→16:46)
--- NOTE | 2022-06-11 08:07 | P.PN ---
Subjective This is a 31-year-old female with a past medical history significant for end- stage renal disease on hemodialysis secondary to polycystic kidney disease s/p kidney transplant 2009 and had rejection, cardiomyopathy, congestive heart failure, pulmonary hypertension, and hypertension. Patient follows in the office with Dr. Larios. We have been asked to see the patient in consultation for chest pain. Patient presents to the ER with shortness of breath, chest tightness and elevated blood pressure. Patient states she underwent dialysis on palpation with no changes. She did not miss any dialysis appointments. She endorses some upper chest tightness, nonradiating, sometimes occurs with activity and walking to the bathroom and getting dressed. She was more short of breath. She felt as if she had more fluid on her. She denies any nausea, vomiting, lightheadedness, dizziness, syncope or near syncope. No known history of CAD. She denies any hi story of [place], stroke, diabetes. She denies any tobacco use. Denies any alcohol or illicit drug use. DIAGNOSTICS * EKG reveals sinus mechanism with nonspecific ST-T wave abnormalities with T wave inversions in V5, V6. LVH. Prior EKG with similar findings * Chest xray cardiomegaly with left greater than right bibasilar acute infiltrate vs atelectasis. Mild edema. * Laboratory data: WBC 5.4. Hemoglobin 9.8. Platelet count 164. Sodium 138. Potassium 4.1. B UN 68. Creatinine 14.53. troponin 0.05. ProBNP 62,000 * Current home cardiac medications include Clonidine 0.3mg TID, hydralazine 100m g TID, Coreg 3.125mg BID, Nifedipine 90mg daily * Most recent echocardiogram obtained in 09/2021 revealed ejection fraction 40- 45%, mild to moderate aortic regurgitation, mild aortic stenosis with a p eak/mean gradient of 21 mmHg/11 mmHg, moderate to severe tricuspid regurgitation, RVSP of 89 mmHg, moderate mitral regurgitation 06/11 Patient seen and examined. Patient denies any chest pain or pressure. She did receive dialysis and carvedilol was increased as well as Imdur was added with improvement in blood pressures to the 110s to 120s. Currently she states she feels better. Denies any chest pressure. Approximately 2800 mL were removed yesterday with dialysis. Did have a mild headache with Imdur yesterday. Discussed using Tylenol if needed with Imdur. PHYSICAL EXAM: VITAL SIGNS: Reviewed. GENERAL: Well-developed in no acute distress. HEENT: Head is normocephalic. Pupils are equal, round. Sclerae anicteric. Mucous membranes of the mouth are moist. Neck supple. No JVD or thyromegaly LUNGS: Respirations even and unlabored. Lungs diminished with bibasilar crackles HEART: Regular rate and rhythm. S1 and S2 heard. systolic murmur noted. ABDOMEN: Soft. Nondistended. Nontender. EXTREMITIES: Normal range of motion. No clubbing or cyanosis. Peripheral pulses intact. 1+ bilateral lower extremity edema NEUROLOGIC: Awake and alert. Oriented x 3. ASSESSMENT: Acute on chronic heart failure with reduced ejection fraction Chest pressure, suspect related to uncontrolled hypertension and heart failure End-stage renal disease on hemodialysis Abnormal troponins, suspect secondary to CKD, heart failure and hypertension Cardiomyopathy, ischemic vs non-ischemic, suspected nonischemic no known CAD Hypertension History of hyperkalemia, follows with nephrology patient has not been able to tolerate ACEI/ARB/entresto History of polycystic kidney disease s/p kidney transplant 2009 PLAN: Coreg increased to 6.25 mg BID Continue Imdur 30mg daily. Mild headache with Imdur however discussed using Tylenol to help with headache and usually headache improves after first week. Continue clonidine 0.3 mg TID, hydralazine 100 mg TID, nifedipine 60mg BID Echo reviewed with EF 50%, moderate LVH, RVSP 73. Pulmonary hypertension likely related to left-sided heart failure and continue to optimize blood pressure and volume status. Believes she had a heart cath (unclear left or right at [facility]) 3 years ago. No need for heart cath at this time and patient stable for DC home from cardiology standpoint. Objective - Vital Signs Vital signs: Vital Signs Temp 97.9 F 06/11/22 04:06 Pulse 65 06/11/22 04:06 Resp 18 06/11/22 04:06 BP 129/79 06/11/22 04:06 Pulse Ox 100 06/11/22 04:06 FiO2 21 06/10/22 08:31 Intake & Output 06/10/22 06/11/22 06/11/22 18:59 06:59 18:59 Intake Total 180 Output Total 2800 0 Balance -2620 0 Weight 62 kg Intake: Oral 180 Output: Urine 0 Hemodialysis 2800 - Labs CBC & Chem 7: 06/10/22 08:07 06/10/22 08:07 Labs: Abnormal Lab Results - Last 24 Hours (Table) 06/10/22 06/10/22 06/10/22 Range/Units 08:07 08:07 08:07 RBC 3.29 L (3.80-5.40) m/uL Hgb 9.2 L (11.4-16.0) gm/dL Hct 30.9 L (34.0-46.0) % MCHC 29.8 L (31.0-37.0) g/dL RDW 18.6 H (11.5-15.5) % Lymphocytes # 0.7 L (1.0-4.8) k/uL BUN 38 H (7-17) mg/dL Creatinine 10.87 H* (0.52-1.04) mg/dL Troponin I 0.062 H* (0.000-0.034) ng/mL
[2022-06-11] MEDS: carvediloL 6.25 MG TAB PO SCH (08:16)
[2022-06-11] MEDS: hydrALAZINE HCL 50 MG TAB PO SCH ×2 (08:17→16:46)
[2022-06-11] MEDS: cloNIDine HCL 0.1 MG TAB PO SCH ×2 (08:17→16:47)
[2022-06-11] MEDS: ISOSORBIDE MONONITRATE ER 30 MG TAB.ER.24H PO SCH (08:17)
[2022-06-11 08:36] LABS: Anisocytosis Slight; Basophils # (A) 0.1 k/uL (0-0.2); Basophils % (A) 2 %; Eosinophils # (A) 0.2 k/uL (0-0.7); Eosinophils % (A) 7 %; HCT 35.4 % (34.0-46.0); HGB 10.5 gm/dL (11.4-16.0); Hypochromasia Marked; Lymphocytes # (A) 0.7 k/uL (1.0-4.8); Lymphocytes % (A) 22 %; MCH 28.3 pg (25.0-35.0); MCHC 29.7 g/dL (31.0-37.0); MCV 95.3 fL (80.0-100.0); Macrocytosis Slight; Mean Platelet Volume 9.6; Monocytes # (A) 0.2 k/uL (0-1.0); Monocytes % (A) 7 %; Neutrophils % (A) 61 %; Platelet Count 174 k/uL (150-450); RBC 3.72 m/uL (3.80-5.40); RDW 18.4 % (11.5-15.5); WBC 3.3 k/uL (3.8-10.6)
--- NOTE | 2022-06-11 08:46 | P.PN ---
Subjective Patient is seen in follow-up for end-stage renal disease. Tolerated 2.8 L ultrafiltration yesterday. Dyspnea improved. Denies chest pain or shortness of breath at this time. Blood pressure better controlled. Vital signs are stable. General: Awake. No acute distress. HEENT: Head exam is unremarkable. LUNGS: Breath sounds decreased. HEART: Rate and Rhythm are regular. ABDOMEN: Soft, no distention. EXTREMITITES: Trace edema. Objective - Vital Signs Vital signs: Vital Signs Temp 97.9 F 06/11/22 04:06 Pulse 75 06/11/22 08:00 Resp 16 06/11/22 08:00 BP 138/86 06/11/22 08:00 Pulse Ox 100 06/11/22 08:00 FiO2 21 06/10/22 08:31 Intake & Output 06/10/22 06/11/22 06/11/22 18:59 06:59 18:59 Intake Total 180 Output Total 2800 0 Balance -2620 0 Weight 62 kg Intake: Oral 180 Output: Urine 0 Hemodialysis 2800 - Labs CBC & Chem 7: 06/11/22 07:26 06/10/22 08:07 Labs: Abnormal Lab Results - Last 24 Hours (Table) 06/10/22 06/10/22 06/11/22 Range/Units 08:07 08:07 07:26 WBC 3.3 L (3.8-10.6) k/uL RBC 3.72 L (3.80-5.40) m/uL Hgb 10.5 L (11.4-16.0) gm/dL MCHC 29.7 L (31.0-37.0) g/dL RDW 18.4 H (11.5-15.5) % Lymphocytes # 0.7 L (1.0-4.8) k/uL BUN 38 H (7-17) mg/dL Creatinine 10.87 H* (0.52-1.04) mg/dL Troponin I 0.062 H* (0.000-0.034) ng/mL Assessment and Plan Plan: Assessment: 1. End-stage renal disease making on hemodialysis on Wednesday schedule. Being trained for home hemodialysis outpatient. 2. Hypertensive urgency. Improved. 3. Volume overload. Improved with ultrafiltration. 4. Acute on chronic systolic CHF with ejection fraction of 50% with moderate aortic regurgitation, mild to moderate mitral regurgitation and severe pulmonary hypertension. 5. Anemia of chronic kidney disease. Iron replete. On Aranesp. 6. Chronic kidney disease mineral bone disease maintained on Sensipar and PhosLo. Plan: Hemodialysis today and again tomorrow. Challenge ultrafiltration. Imdur added by cardiology. Avoid ACEi/ARB and spironolactone due to frequent hyperkalemia. Discussed with patient that in center hemodialysis would be the safest option for her. Will further address outpatient.
[2022-06-11 09:52] LABS: Calcium 8.6 mg/dL (8.4-10.2); Potassium 3.9 mmol/L (3.5-5.1)
--- NOTE | 2022-06-11 23:38 | PN ---
PROGRESS NOTE DATE OF SERVICE: 06/11/2022 SUBJECTIVE: This is a 31-year-old woman who was admitted with pulmonary edema and as well as CHF acute exacerbation, also receiving almost daily hemodialysis. No chest pain. No palpitations. No fever. PHYSICAL EXAMINATION: VITAL SIGNS: Pulse is 60, blood pressure 122/70, respirations 16. CHEST: A few scattered rhonchi. CARDIOVASCULAR: S1, S2. ABDOMEN: Soft. LABS: Reviewed. ASSESSMENT: 1. Congestive heart failure acute exacerbation, fluid overload with acute on chronic diastolic dysfunction, ejection fraction 50%. 2. Chronic kidney disease, on hemodialysis. 3. Chest pain possible unstable angina. 4. Vomiting, possible acute gastritis. 5. History of asthma. 6. History of congestive heart failure. 7. Multiple medical issues. RECOMMENDATIONS: Recommend to continue current management and symptomatic treatment. Continue with hemodialysis. Closely follow with Cardiology, Nephrology. Guarded prognosis. Further recommendations to follow. MMODL / IJN: [id number] /
[2022-06-12] MEDS: cloNIDine HCL 0.1 MG TAB PO SCH ×2 (00:01→15:48)
[2022-06-12] MEDS: carvediloL 6.25 MG TAB PO SCH ×2 (00:01→15:48)
[2022-06-12] MEDS: HYDROmorphone 0.5 MG/0.5 ML SYRINGE IVP PRN ×3 (01:48→10:52)
[2022-06-12] MEDS: hydrALAZINE HCL 50 MG TAB PO SCH ×2 (01:48→15:48)
[2022-06-12] MEDS: PANTOPRAZOLE 40 MG TABLET PO SCH (06:57)
[2022-06-12] MEDS: CALCIUM ACETATE 667 MG TAB PO SCH ×2 (06:57→12:25)
--- NOTE | 2022-06-12 09:01 | P.PN ---
Subjective Patient is seen in follow-up for end-stage renal disease. Received extra treatment of hemodialysis this admission for ultrafiltration. Dyspnea improved. Denies chest pain or shortness of breath at this time. Blood pressure better controlled. Vital signs are stable. General: Awake. No acute distress. HEENT: Head exam is unremarkable. LUNGS: Breath sounds decreased. HEART: Rate and Rhythm are regular. ABDOMEN: Soft, no distention. EXTREMITITES: Trace edema. Objective - Vital Signs Vital signs: Vital Signs Temp 98.1 F 06/12/22 04:18 Pulse 64 06/12/22 04:18 Resp 14 06/12/22 04:18 BP 134/80 06/12/22 04:18 Pulse Ox 100 06/12/22 04:18 FiO2 21 06/10/22 08:31 Intake & Output 06/11/22 06/12/22 06/12/22 18:59 06:59 18:59 Intake Total 300 118 Output Total 2300 0 Balance -2000 0 118 Intake: Oral 0 118 Hemodialysis 300 Output: Urine 0 Hemodialysis 2300 - Labs CBC & Chem 7: 06/11/22 07:26 06/11/22 07:26 Labs: Abnormal Lab Results - Last 24 Hours (Table) 06/11/22 Range/Units 07:26 Sodium 135 L (137-145) mmol/L BUN 28 H (7-17) mg/dL Creatinine 8.97 H* (0.52-1.04) mg/dL Assessment and Plan Plan: Assessment: 1. End-stage renal disease making on hemodialysis on Wednesday schedule. 2. Hypertensive urgency. Improved. 3. Volume overload. Improved with ultrafiltration. 4. Acute on chronic systolic CHF with ejection fraction of 50% with moderate aortic regurgitation, mild to moderate mitral regurgitation and severe pulmonary hypertension. 5. Anemia of chronic kidney disease. Iron replete. On Aranesp. 6. Chronic kidney disease mineral bone disease maintained on Sensipar and PhosLo. Plan: Currently seen while undergoing hemodialysis. Next treatment on Wednesday. Avoid ACEi/ARB and spironolactone due to frequent hyperkalemia. She is advised to monitor her blood pressure closely at home and to hold hydralazine if blood pressure less than 120/70. Discussed with patient that in-center hemodialysis would be the safest option for her. She will continue with in-center hemodialysis.
--- NOTE | 2022-06-12 09:40 | P.PN ---
Subjective This is a 31-year-old female with a past medical history significant for end- stage renal disease on hemodialysis secondary to polycystic kidney disease s/p kidney transplant 2009 and had rejection, cardiomyopathy, congestive heart failure, pulmonary hypertension, and hypertension. Patient follows in the office with Dr. Larios. We have been asked to see the patient in consultation for chest pain. Patient presents to the ER with shortness of breath, chest tightness and elevated blood pressure. Patient states she underwent dialysis on palpation with no changes. She did not miss any dialysis appointments. She endorses some upper chest tightness, nonradiating, sometimes occurs with activity and walking to the bathroom and getting dressed. She was more short of breath. She felt as if she had more fluid on her. She denies any nausea, vomiting, lightheadedness, dizziness, syncope or near syncope. No known history of CAD. She denies any hi story of [place], stroke, diabetes. She denies any tobacco use. Denies any alcohol or illicit drug use. DIAGNOSTICS * EKG reveals sinus mechanism with nonspecific ST-T wave abnormalities with T wave inversions in V5, V6. LVH. Prior EKG with similar findings * Chest xray cardiomegaly with left greater than right bibasilar acute infiltrate vs atelectasis. Mild edema. * Laboratory data: WBC 5.4. Hemoglobin 9.8. Platelet count 164. Sodium 138. Potassium 4.1. B UN 68. Creatinine 14.53. troponin 0.05. ProBNP 62,000 * Current home cardiac medications include Clonidine 0.3mg TID, hydralazine 100m g TID, Coreg 3.125mg BID, Nifedipine 90mg daily * Most recent echocardiogram obtained in 09/2021 revealed ejection fraction 40- 45%, mild to moderate aortic regurgitation, mild aortic stenosis with a p eak/mean gradient of 21 mmHg/11 mmHg, moderate to severe tricuspid regurgitation, RVSP of 89 mmHg, moderate mitral regurgitation 06/11 Patient seen and examined. Patient denies any chest pain or pressure. She did receive dialysis and carvedilol was increased as well as Imdur was added with improvement in blood pressures to the 110s to 120s. Currently she states she feels better. Denies any chest pressure. Approximately 2800 mL were removed yesterday with dialysis. Did have a mild headache with Imdur yesterday. Discussed using Tylenol if needed with Imdur. 06/12 Patient seen and examined. Patient denies any chest pain. Undergoing dialysis again today. Blood pressures mainly been in the 120s to 140s. She still did get a mild headache with Imdur however states is tolerable. PHYSICAL EXAM: VITAL SIGNS: Reviewed. GENERAL: Well-developed in no acute distress. HEENT: Head is normocephalic. Pupils are equal, round. Sclerae anicteric. Mucous membranes of the mouth are moist. Neck supple. No JVD or thyromegaly LUNGS: Respirations even and unlabored. Lungs diminished with bibasilar crackles HEART: Regular rate and rhythm. S1 and S2 heard. systolic murmur noted. ABDOMEN: Soft. Nondistended. Nontender. EXTREMITIES: Normal range of motion. No clubbing or cyanosis. Peripheral pulses intact. no lower extremity edema NEUROLOGIC: Awake and alert. Oriented x 3. ASSESSMENT: Acute on chronic heart failure with reduced ejection fraction Chest pressure, suspect related to uncontrolled hypertension and heart failure End-stage renal disease on hemodialysis Abnormal troponins, suspect secondary to CKD, heart failure and hypertension Cardiomyopathy, ischemic vs non-ischemic, suspected nonischemic no known CAD Hypertension History of hyperkalemia, follows with nephrology patient has not been able to tolerate ACEI/ARB/entresto History of polycystic kidney disease s/p kidney transplant 2009 PLAN: Continue Coreg 6.25 mg BID Continue Imdur 30mg daily. Mild headache with Imdur however discussed using Tylenol to help with headache and usually headache improves after first week. Continue clonidine 0.3 mg TID, hydralazine 100 mg TID, nifedipine 60mg BID Echo reviewed with EF 50%, moderate LVH, RVSP 73. Pulmonary hypertension likely related to left-sided heart failure and continue to optimize blood pressure and volume status. Believes she had a heart cath (unclear left or right at [facility]) 3 years ago. Appears stable for discharge home today with outpatient follow-up. Objective - Vital Signs Vital signs: Vital Signs Temp 98.1 F 06/12/22 04:18 Pulse 64 06/12/22 04:18 Resp 14 06/12/22 04:18 BP 134/80 06/12/22 04:18 Pulse Ox 100 06/12/22 04:18 FiO2 21 06/10/22 08:31 Intake & Output 06/11/22 06/12/22 06/12/22 18:59 06:59 18:59 Intake Total 300 118 Output Total 2300 0 Balance -2000 0 118 Intake: Oral 0 118 Hemodialysis 300 Output: Urine 0 Hemodialysis 2300 - Labs CBC & Chem 7: 06/11/22 07:26 06/11/22 07:26 Labs: Abnormal Lab Results - Last 24 Hours (Table) 06/11/22 Range/Units 07:26 Sodium 135 L (137-145) mmol/L BUN 28 H (7-17) mg/dL Creatinine 8.97 H* (0.52-1.04) mg/dL
[2022-06-12] MEDS: CINACALCET 30 MG TAB PO SCH (12:26)
[2022-06-12] MEDS: ISOSORBIDE MONONITRATE ER 30 MG TAB.ER.24H PO SCH (12:27)
[2022-06-12 12:28] VITALS: PULSE 67; RESP 19; TEMP 97.6
[2022-06-12] MEDS: ONDANSETRON 4 MG/2 ML VIAL IVP PRN (12:28)
[2022-06-12 15:41] VITALS: BP 110/57
--- NOTE | 2022-06-13 09:22 | P.DS ---
Providers Date of admission: 06/09/22 10:21 Expected date of discharge: 06/12/22 Attending physician: Agnieszka Travis Consults: 06/09/22 10:05 Consult Physician Urgent Consulting Provider: Robin Thompson Consult Reason/Comments: Dialysis, pulmonary edema Do you want consulting provider notified?: Yes 06/09/22 13:23 Consult Physician Routine Consulting Provider: Carlos Enrique Avina Consult Reason/Comments: Chest pain, elevated troponin Do you want consulting provider notified?: Yes Primary care physician: Karo Alicea Hospital Course: Final diagnosis Congestive heart failure acute exacerbation with fluid overload with acute on chronic diastolic dysfunction, EF is 50% Chronic kidney disease with end-stage renal disease on hemodialysis Chest pain, possible unstable angina Vomiting, possible acute gastritis, resolved History of asthma. history of congestive heart failure Hypertension, uncontrolled with hypotension post dialysis GI prophylaxis DVT prophylaxis Full code Discharge disposition Patient is being discharged in a stable condition with guarded prognosis to home. Patient will follow-up with Dr. Alicea in the outpatient setting upon discharge. Patient is to continue with hemodialysis as scheduled and close outpatient follow up with nephrology and cardiology. Total time taken is greater than 35 minutes. Hospital course This is a 31-year-old female who was recently admitted with chest pain and volume overload. Patient was receiving dialysis daily due to overload with cardiology following and changes in medications. Blood pressures uncontrolled with hyper and hypotension post dialysis. Patient encouraged to monitor blood pressures closely while taking medications and keep a diary for follow up appointments. Continue dialysis m/w/f. Patient reports to feeling better and requesting to go home. Currently no reports of chest pain, shortness of breath, or palpitations. Patient is afebrile. No reports of nausea or vomiting and patient is tolerating diet. Patient will be discharged home today. Guarded prognosis Physical exam: Gen: This is a 31 year old female who is awake, alert and oriented x3. Well developed, well nourished. HEENT: Head is atraumatic, normocephalic. Pupils equal, round. Sclerae is anicteric. NECK: Supple. No JVD. No lymphadenopathy. No thyromegaly. LUNGS: diminished breath sounds with no wheezes or rhonchi. Some faint crackles noted at the bases. No intercostal retractions. HEART: Regular rate and rhythm. No murmur. ABDOMEN: Soft. Bowel sounds are present. No masses. No tenderness. EXTREMITIES: No pedal edema. No calf tenderness. NEUROLOGICAL: Patient is awake, alert and oriented x3. Cranial nerves 2 through 12 are grossly intact. Please refer to medication reconciliation sheet for a list of medications. The impression and plan of care has been dictated by Mona Bhatt, Nurse Practitioner as directed. Dr. Joselo MD I have performed a history and examination and MDM of this patient, discussed the same with the dictator, and agree with the dictator's assessment and plan as written ,documented as a scribe. Based on total visit time, I have performed more than 50% of the visit. Patient Condition at Discharge: Fair Plan - Discharge Summary Discharge Rx Participant: No New Discharge Prescriptions: New Isosorbide Mononitrate ER [Imdur] 30 mg PO DAILY 30 Days #30 tab carvediloL [Coreg] 6.25 mg PO BID 30 Days #60 tab NIFEdipine XL [Procardia XL] 60 mg PO Q12HR 30 Days #60 tab Continue Albuterol Sulfate [Proair Hfa] 2 puff INHALATION RT-Q6H PRN PRN Reason: Shortness Of Breath hydrALAZINE HCL [Apresoline] 100 mg PO TID Cinacalcet HCl [Sensipar] 120 mg PO MOWEFR Lidocaine-Prilocaine Cream [Emla Cream 2.5%/2.5%] 1 applic TOPICAL DAILY PRN PRN Reason: PORT ACCESS Calcium Acetate [PhosLo] 2,668 mg PO TID-W/MEALS hydrOXYzine HCL [Atarax] 25 mg PO TID PRN PRN Reason: Anxiety Acetaminophen Tab [Tylenol] 1,000 mg PO Q6HR PRN PRN Reason: Pain Or Fever > 100.5 cloNIDine HCL [Catapres] 0.3 mg PO TID calcitrioL [Calcitriol] 3 mcg PO MOWEFR Calcium Acetate [PhosLo] 667 - 1,334 mg PO BID PRN PRN Reason: WITH SNACKS Discontinued NIFEdipine [Procardia XL] 90 mg PO DAILY carvediloL [Coreg] 3.125 mg PO BID Discharge Medication List Albuterol Sulfate [Proair Hfa] 2 puff INHALATION RT-Q6H PRN 01/22/16 [History] hydrALAZINE HCL [Apresoline] 100 mg PO TID 11/16/18 [History] Cinacalcet HCl [Sensipar] 120 mg PO MOWEFR 02/26/19 [History] Calcium Acetate [PhosLo] 2,668 mg PO TID-W/MEALS 05/01/20 [History] Lidocaine-Prilocaine Cream [Emla Cream 2.5%/2.5%] 1 applic TOPICAL DAILY PRN 05/01/20 [History] calcitrioL [Calcitriol] 3 mcg PO MOWEFR 10/29/21 [History] cloNIDine HCL [Catapres] 0.3 mg PO TID 10/29/21 [History] hydrOXYzine HCL [Atarax] 25 mg PO TID PRN 10/29/21 [History] Acetaminophen Tab [Tylenol] 1,000 mg PO Q6HR PRN 05/26/22 [History] Calcium Acetate [PhosLo] 667 - 1,334 mg PO BID PRN 05/26/22 [History] Isosorbide Mononitrate ER [Imdur] 30 mg PO DAILY 30 Days #30 tab 06/12/22 [Rx] NIFEdipine XL [Procardia XL] 60 mg PO Q12HR 30 Days #60 tab 06/12/22 [Rx] carvediloL [Coreg] 6.25 mg PO BID 30 Days #60 tab 06/12/22 [Rx] Follow up Appointment(s)/Referral(s): Carlos Enrique Avina DO [STAFF PHYSICIAN] - 06/18/22 9:30 am (Will be seen by Dr. Larios ) Karo Alicea MD [Primary Care Provider] - 07/09/22 2:30 pm Robin Thompson DO [STAFF PHYSICIAN] - 1 Week (Will be seen at dialysis center) Patient Instructions/Handouts: Heart Failure (DC) Activity/Diet/Wound Care/Special Instructions: Activity Limited until follow-up Follow-up with primary care provider on discharge Follow-up with cardiology in 1-2 weeks Follow-up with nephrology and continue with hemodialysis at her scheduled appointments Continue taking medications as prescribed Highly recommend monitoring blood pressure and keeping a diary of all readings to bring to nephrology and primary care follow-up Discharge Disposition: HOME SELF-CARE
== END 2022-06-12 15:49 | disposition home or self-care (01) | DRG 291 ==
LOC: EC 06:45 → 3SCARD 10:21 → OBSVTOIN 10:21 → 3SCARD 11:18
PROVIDERS: ADMIT Hospitalist; ATTEND Hospitalist
PROC: 5A1D70Z Performance of Urinary Filtration, Intermittent, Less than 6 Hours Per Day (ICD-10-PCS; principal; 2022-06-09)
DX: I13.2 Hypertensive heart and chronic kidney disease with heart failure and with stage 5 chronic kidney disease, or end stage renal disease (principal); I50.23 Acute on chronic systolic (congestive) heart failure; N18.6 End stage renal disease; Q61.3 Polycystic kidney, unspecified; T86.12 Kidney transplant failure; I27.20 Pulmonary hypertension, unspecified; D63.1 Anemia in chronic kidney disease; I16.0 Hypertensive urgency; I08.3 Combined rheumatic disorders of mitral, aortic and tricuspid valves; J45.909 Unspecified asthma, uncomplicated; I95.3 Hypotension of hemodialysis; I42.8 Other cardiomyopathies; I20.0 Unstable angina; K29.00 Acute gastritis without bleeding; M89.8X9 Other specified disorders of bone, unspecified site; E87.5 Hyperkalemia; Z28.310 Unvaccinated for COVID-19; Z99.2 Dependence on renal dialysis; Z79.899 Other long term (current) drug therapy; Z88.1 Allergy status to other antibiotic agents; Z88.8 Allergy status to other drugs, medicaments and biological substances
CPT/HCPCS: 36415; 71045; 71046; 80048; 80053; 82728; 83540; 83550; 83735; 83880; 84484; 85025; 85610; 85730; 86706; 87340; 90935; 93005; 93306; 96374; 96375; 99285

== ENCOUNTER 2022-07-27 10:56 | Inpatient (IN) | payer BC, MEDICARE, OTHER ==
[2022-07-27 13:08] LABS: Anisocytosis Slight; Basophils # (A) 0.1 k/uL (0-0.2); Basophils % (A) 1 %; Eosinophils # (A) 0.4 k/uL (0-0.7); Eosinophils % (A) 6 %; HCT 33.1 % (34.0-46.0); HGB 10.4 gm/dL (11.4-16.0); Hypochromasia Marked; Lymphocytes # (A) 0.5 k/uL (1.0-4.8); Lymphocytes % (A) 8 %; MCH 29.9 pg (25.0-35.0); MCHC 31.4 g/dL (31.0-37.0); MCV 95.4 fL (80.0-100.0); Macrocytosis Slight; Monocytes # (A) 0.1 k/uL (0-1.0); Monocytes % (A) 2 %; Neutrophils # (A) 5.6 k/uL (1.3-7.7); Neutrophils % (A) 83 %; Platelet Count 231 k/uL (150-450); RBC 3.47 m/uL (3.80-5.40); RDW 19.1 % (11.5-15.5); WBC 6.7 k/uL (3.8-10.6)
[2022-07-27 13:28] LABS: Albumin 4.4 g/dL (3.5-5.0); Calcium 8.4 mg/dL (8.4-10.2); Potassium 5.2 mmol/L (3.5-5.1); Total Bilirubin 0.7 mg/dL (0.2-1.3); Total Protein 8.3 g/dL (6.3-8.2)
--- NOTE | 2022-07-27 13:43 | XR ---
EXAMINATION TYPE: XR chest 2V DATE OF EXAM: 07/27/2022 1:11 PM COMPARISON: Chest radiographs from 06/10/2022 TECHNIQUE: XR chest 2V Frontal and lateral views of the chest. CLINICAL INDICATION:Female, 32 years old with history of sob; FINDINGS: Lungs/Pleura: Increased airspace opacities are felt to be in the lower right lung base. There is righ t peribronchial cuffing. No evidence of pneumothorax or pleural effusion. Pulmonary vascularity: Unremarkable. Heart/mediastinum: Cardiomediastinal silhouette is enlarged and stable. Musculoskeletal: No acute osseous pathology. IMPRESSION: Increased airspace opacities in the right lung base and peribronchial cuffing correlate for small air ways and/or developing pneumonia. Underlying congestive heart failure changes should be correlated wi th serum BNP.
--- NOTE | 2022-07-27 13:57 | ED ---
General Adult HPI - General Chief complaint: Shortness of Breath Stated complaint: vomiting, bodyaches Time Seen by Provider: 07/27/22 12:21 Source: patient, RN notes reviewed Mode of arrival: ambulatory Limitations: no limitations - History of Present Illness Initial comments: 32-year-old -[place] female with past medical history significant for CHF and ESRD presents to the emergency department with worsening shortness of breath. Patient notes that she has delt short of breath since wednesday. She denies using breathing treatments for relief. She admits to accompanying symptoms of nausea and vomiting. She denies recent sick contacts. Denies fever, cough, chest pain, palpitations, abdominal pain. She does not make urine. She is a hemodialysis patient, and get dialyzed MWF. She did not go to dialysis today. Denies alcohol or tobacco use. - Related Data Home Medications Medication Instructions Recorded Confirmed Albuterol Sulfate [Proair Hfa] 2 puff INHALATION RT-Q6H PRN 01/22/16 07/27/22 hydrALAZINE HCL [Apresoline] 100 mg PO TID 11/16/18 07/27/22 Cinacalcet HCl [Sensipar] 120 mg PO MOWEFR 02/26/19 07/27/22 Calcium Acetate [PhosLo] 2,668 mg PO TID-W/MEALS 05/01/20 07/27/22 Lidocaine-Prilocaine Cream [Emla 1 applic TOPICAL DAILY PRN 05/01/20 07/27/22 Cream 2.5%/2.5%] calcitrioL [Calcitriol] 3 mcg PO MOWEFR 10/29/21 07/27/22 cloNIDine HCL [Catapres] 0.3 mg PO TID 10/29/21 07/27/22 hydrOXYzine HCL [Atarax] 25 mg PO TID PRN 10/29/21 07/27/22 Acetaminophen Tab [Tylenol] 1,000 mg PO Q6HR PRN 05/26/22 07/27/22 Calcium Acetate [PhosLo] 667 - 1,334 mg PO BID PRN 05/26/22 07/27/22 Previous Rx's Medication Instructions Recorded Isosorbide Mononitrate ER [Imdur] 30 mg PO DAILY 30 Days #30 tab 06/12/22 NIFEdipine XL [Procardia XL] 60 mg PO Q12HR 30 Days #60 tab 06/12/22 carvediloL [Coreg] 6.25 mg PO BID 30 Days #60 tab 06/12/22 Allergies Allergy/AdvReac Type Severity Reaction Status Date / Time vancomycin Allergy Anaphylaxis Verified 07/27/22 13:55 hydralazine AdvReac Rapid Verified 07/27/22 13:55 Heart Rate WHEN GIVEN THROUGH IV Review of Systems ROS Statement: Those systems with pertinent positive or pertinent negative responses have been documented in the HPI. ROS Other: All systems not noted in ROS Statement are negative. 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 History of Any Multi-Drug Resistant Organisms: None Reported Past Surgical History: Heart Catheterization, Hernia Repair Additional Past Surgical History / Comment(s): 06/14/18 cardiac cath at [facility] to check coronary pressures, 11/15/09 Failed kidney transplant R pelvis, dialysis catheter in and out, current L upper arm AVG, supra pubic hernia repair, transvaginal mesh, wisdom teeth extraction with anesthesia, 2016 failed kidney transplant Past Anesthesia/Blood Transfusion Reactions: No Reported Reaction Additional Past Anesthesia/Blood Transfusion Reaction / Comment(s): Pt has received blood in past without reaction. Past Psychological History: Anxiety, Depression Smoking Status: Never smoker Past Alcohol Use History: None Reported Past Drug Use History: None Reported, Marijuana - Past Family History Father Family Medical History: No Reported History Additional Family Medical History / Comment(s): Father is healthy and is 62 yrs old. Mother Family Medical History: No Reported History Additional Family Medical History / Comment(s): Mother is healthy and is 60 yrs old. General Exam Limitations: no limitations General appearance: alert, in no apparent distress Head exam: Present: atraumatic, normocephalic, normal inspection Eye exam: Present: normal appearance, PERRL, EOMI. Absent: scleral icterus, conjunctival injection, periorbital swelling ENT exam: Present: normal exam, mucous membranes moist Neck exam: Present: normal inspection. Absent: tenderness, meningismus, lymphadenopathy Respiratory exam: Present: normal lung sounds bilaterally. Absent: respiratory distress, wheezes, rales, rhonchi, stridor Cardiovascular Exam: Present: regular rate, normal rhythm, normal heart sounds. Absent: systolic murmur, diastolic murmur, rubs, gallop, clicks GI/Abdominal exam: Present: soft, normal bowel sounds. Absent: distended, tenderness, guarding, rebound, rigid Extremities exam: Present: other (Hemodialysis shunt in L upper arm with palpable thrill) Back exam: Present: normal inspection Neurological exam: Present: alert, oriented X3, CN II-XII intact Psychiatric exam: Present: normal affect, normal mood Skin exam: Present: warm, dry, intact, normal color. Absent: rash Course Vital Signs 07/27/22 07/27/22 07/27/22 11:51 14:53 16:06 Temperature 98.4 F Pulse Rate 81 80 84 Respiratory 18 18 18 Rate Blood Pressure 212/118 200/115 190/124 O2 Sat by Pulse 100 100 95 Oximetry 07/27/22 17:51 Temperature Pulse Rate Respiratory Rate Blood Pressure 205/121 O2 Sat by Pulse Oximetry - Reevaluation(s) Reevaluation #1: 07/27/22 14:[address] Josue who agrees and accepts the patient for admission. Patient reevaluated. Patient updated on results and is agreeable plan for admission EKG Findings - EKG Comments: EKG Findings:: I interpreted the following: Rate 78 bpm, HI 198, QRS 94, QT/QTc 443/436. with possible atrial and ventricular enlargement. compared to previous EKG Medical Decision Making - Medical Decision Making This is 32 year old female presenting to the emergency department for shortness of breath. Patient was seen and evaluated physical exam essentially unremarkable. Lab Work and imaging ordered and performed during the course in the ED. I interpreted the following: wbC 6.7, HGB 10.4, K 5.2, BUN 61, Cr 13.40, Troponin 0.048, COVID positive, Chest XR with increased opacities in the right lung base. Based on the patients medical history it is my decision to admit the patient for further evaluation with a consult to nephrology. I discussed the case with Dr. Josue who agrees and accepts the pa tient for admission. I discussed the results in detail with the patient and she is agreeable with plan for admission. I discussed the case with Dr. Minesh RAMIREZ who agrees with plan for admission. - Lab Data Result diagrams: 07/27/22 12:41 07/27/22 14:52 Lab Results 07/27/22 07/27/22 07/27/22 Range/Units 12:41 12:41 12:41 WBC 6.7 (3.8-10.6) k/uL RBC 3.47 L (3.80-5.40) m/uL Hgb 10.4 L (11.4-16.0) gm/dL Hct 33.1 L (34.0-46.0) % MCV 95.4 (80.0-100.0) fL MCH 29.9 (25.0-35.0) pg MCHC 31.4 (31.0-37.0) g/dL RDW 19.1 H (11.5-15.5) % Plt Count 231 (150-450) k/uL MPV 9.0 Neutrophils % 83 % Lymphocytes % 8 % Monocytes % 2 % Eosinophils % 6 % Basophils % 1 % Neutrophils # 5.6 (1.3-7.7) k/uL Lymphocytes # 0.5 L (1.0-4.8) k/uL Monocytes # 0.1 (0-1.0) k/uL Eosinophils # 0.4 (0-0.7) k/uL Basophils # 0.1 (0-0.2) k/uL Hypochromasia Marked Anisocytosis Slight Macrocytosis Slight Sodium 140 (137-145) mmol/L Potassium 5.2 H (3.5-5.1) mmol/L Chloride 101 (98-107) mmol/L Carbon Dioxide 23 (22-30) mmol/L Anion Gap 16 mmol/L BUN 61 H (7-17) mg/dL Creatinine 13.40 H* (0.52-1.04) mg/dL Est GFR (CKD-EPI)AfAm 4 (>60 ml/min/1.73 sqM) Est GFR (CKD-EPI)NonAf 3 (>60 ml/min/1.73 sqM) Glucose 88 (74-99) mg/dL Calcium 8.4 (8.4-10.2) mg/dL Total Bilirubin 0.7 (0.2-1.3) mg/dL AST 20 (14-36) U/L ALT 15 (4-34) U/L Alkaline Phosphatase 79 (38-126) U/L Troponin I (0.000-0.034) ng/mL NT-Pro-B Natriuret Pep 237756 pg/mL Total Protein 8.3 H (6.3-8.2) g/dL Albumin 4.4 (3.5-5.0) g/dL Influenza Type A (PCR) (Not Detectd) Influenza Type B (PCR) (Not Detectd) RSV (PCR) (Not Detectd) SARS-CoV-2 (PCR) (Not Detectd) 07/27/22 07/27/22 Range/Units 12:41 12:41 WBC (3.8-10.6) k/uL RBC (3.80-5.40) m/uL Hgb (11.4-16.0) gm/dL Hct (34.0-46.0) % MCV (80.0-100.0) fL MCH (25.0-35.0) pg MCHC (31.0-37.0) g/dL RDW (11.5-15.5) % Plt Count (150-450) k/uL MPV Neutrophils % % Lymphocytes % % Monocytes % % Eosinophils % % Basophils % % Neutrophils # (1.3-7.7) k/uL Lymphocytes # (1.0-4.8) k/uL Monocytes # (0-1.0) k/uL Eosinophils # (0-0.7) k/uL Basophils # (0-0.2) k/uL Hypochromasia Anisocytosis Macrocytosis Sodium (137-145) mmol/L Potassium (3.5-5.1) mmol/L Chloride (98-107) mmol/L Carbon Dioxide (22-30) mmol/L Anion Gap mmol/L BUN (7-17) mg/dL Creatinine (0.52-1.04) mg/dL Est GFR (CKD-EPI)AfAm (>60 ml/min/1.73 sqM) Est GFR (CKD-EPI)NonAf (>60 ml/min/1.73 sqM) Glucose (74-99) mg/dL Calcium (8.4-10.2) mg/dL Total Bilirubin (0.2-1.3) mg/dL AST (14-36) U/L ALT (4-34) U/L Alkaline Phosphatase (38-126) U/L Troponin I 0.048 H* (0.000-0.034) ng/mL NT-Pro-B Natriuret Pep pg/mL Total Protein (6.3-8.2) g/dL Albumin (3.5-5.0) g/dL Influenza Type A (PCR) Not Detected (Not Detectd) Influenza Type B (PCR) Not Detected (Not Detectd) RSV (PCR) Not Detected (Not Detectd) SARS-CoV-2 (PCR) Detected A (Not Detectd) Disposition Clinical Impression: ESRD (end stage renal disease) on dialysis, Elevated troponin, Hyperkalemia, Congestive heart failure, Nausea & vomiting Disposition: ADMITTED IP TO THIS HOSP Condition: Fair Time of Disposition: 14:51
[2022-07-27] MEDS ORDERED: HYDROcodone/APAP 10-325MG 1 EACH TAB PO ONE (14:43)
[2022-07-27] MEDS ORDERED: ONDANSETRON 4 MG/2 ML VIAL IVP STA (14:43)
[2022-07-27] MEDS ORDERED: NALOXONE 0.4 MG/ML 1 ML VIAL IV PRN (14:45)
[2022-07-27] MEDS ORDERED: hydrALAZINE HCL 20 MG/ML 1 ML VIAL IVP STA (15:13)
[2022-07-27 15:19] LABS: Calcium 8.3 mg/dL (8.4-10.2); Potassium 5.2 mmol/L (3.5-5.1); Total Bilirubin 0.6 mg/dL (0.2-1.3); Total Protein 7.6 g/dL (6.3-8.2)
[2022-07-27] MEDS ORDERED: hydrOXYzine HCL 25 MG TAB PO PRN (16:36)
[2022-07-27] MEDS ORDERED: ACETAMINOPHEN TAB 500 MG TAB PO PRN (16:36)
[2022-07-27] MEDS ORDERED: ALPRAZolam 0.25 MG TAB PO PRN (16:39)
[2022-07-27] MEDS: CALCIUM ACETATE 667 MG TAB PO SCH (17:44)
[2022-07-27] MEDS: carvediloL 6.25 MG TAB PO SCH (17:45)
[2022-07-27] MEDS: ISOSORBIDE MONONITRATE ER 30 MG TAB.ER.24H PO SCH (17:45)
[2022-07-27] MEDS: hydrALAZINE HCL 50 MG TAB PO SCH ×2 (17:46→23:43)
[2022-07-27] MEDS: cloNIDine HCL 0.1 MG TAB PO SCH ×2 (17:46→23:43)
[2022-07-27] MEDS: CINACALCET 30 MG TAB PO SCH (17:49)
[2022-07-27] MEDS: PANTOPRAZOLE 40 MG/10 ML VIAL IVP SCH ×2 (17:50→22:22)
--- NOTE | 2022-07-27 18:37 | HP ---
HISTORY AND PHYSICAL CHIEF COMPLAINT: Shortness of breath, nausea, vomiting, and body aches. HISTORY OF PRESENT ILLNESS: This is a 32-year-old woman with a past medical history of multiple medical problems including hypertension and history of chronic renal failure, on hemodialysis, being followed by Dr. Karo Alicea. The patient is not feeling well for the past several days. The patient has some nausea, unable to keep anything down. The patient is also apparently not taking the blood pressure medications. The patient also has shortness of breath, and the patient did not have the hemodialysis today, and the patient came to [facility] and was admitted for further evaluation and treatment. The evaluation showed elevated creatinine. Troponin is also elevated at 0.048. COVID-19 was positive. The patient has taken the vaccines, and the chest x-ray which was personally reviewed by me also showed some increased opacity in the right lung, possibly developing pneumonia. There is no history of any fever, rigors, or chills at this time. PAST MEDICAL HISTORY: History of asthma, CHF, and hypertension. The rest of the history and the rest of the chart are also reviewed. HOME MEDICATIONS: Include Atarax. Doses and rest of the medications included. ALLERGIES: Include vancomycin. FAMILY HISTORY: No history of heart disease or strokes in the family. SOCIAL HISTORY: History of THC. No history of smoking. REVIEW OF SYSTEMS: Fourteen-point review is negative except as mentioned earlier. PHYSICAL EXAMINATION: VITAL SIGNS: Pulse is 84, blood pressure n, respirations 18. HEENT: Conjunctivae are normal. NECK: No jugular venous distention. CARDIOVASCULAR: S1 and S2. RESPIRATORY: Breath sounds diminished at the bases. Few scattered rhonchi and crackles. ABDOMEN: Soft and nontender. LEGS: No edema. NERVOUS SYSTEM: Nonfocal. SKIN: No ulcers or rashes. JOINTS: No active deforming arthropathy. Left arteriovenous graft present. LABORATORY DATA: Reviewed. Chest x-ray reviewed personally. Hemoglobin 10.4. The rest of the labs are noted. Troponin is noted. ASSESSMENT: 1. Nausea, vomiting, and shortness of breath with possibly acute COVID-19 infection and COVID-19 pneumonia. 2. Chronic renal failure and chronic kidney disease. 3. Troponin 0.048. Rule out acute coronary syndrome. 4. History of asthma. 5. Hypertension. 6. Multiple medical issues. RECOMMENDATIONS: This is a 32-year-old woman, who presented with multiple complex medical issues. We will monitor the patient closely. I would recommend symptomatic treatment and hemodialysis. Consult Pulmonary and Infectious Disease. The patient might be a candidate for remdesivir. Overall prognosis is guarded because of multiple complex medical issues. See orders for details. Home medications will be resumed once they are confirmed. We will monitor fluid/electrolyte balance closely. Procalcitonin also will be checked. Further recommendations to follow. MMODL / IJN: [id number] / MTDShannan
[2022-07-27] MEDS: ONDANSETRON 4 MG/2 ML VIAL IVP PRN (19:22)
[2022-07-27] MEDS: ALBUTEROL HFA INHALER INHALATION SCH (19:29)
[2022-07-27] MEDS ORDERED: ALBUTEROL NEBULIZED 2.5 MG/3 ML INHALATION SCH (20:00)
[2022-07-27] MEDS: HEPARIN SODIUM,PORCINE/PF 5,000 UNIT/0.5 ML SYRINGE SQ SCH (21:06)
[2022-07-27] MEDS: hydrALAZINE HCL 20 MG/ML 1 ML VIAL IVP PRN (22:27)
[2022-07-28] MEDS: ALBUTEROL HFA INHALER INHALATION SCH ×4 (02:30→20:21)
[2022-07-28] MEDS: hydrALAZINE HCL 20 MG/ML 1 ML VIAL IVP PRN ×2 (02:55→17:01)
[2022-07-28] MEDS: HYDROcodone/APAP 5-325MG 1 EACH TAB PO PRN ×3 (03:15→21:50)
[2022-07-28] MEDS: carvediloL 6.25 MG TAB PO SCH ×2 (06:49→21:47)
[2022-07-28 08:00] LABS: Anisocytosis Slight; Basophils % (A) 1 %; Eosinophils # (A) 0.3 k/uL (0-0.7); Eosinophils % (A) 5 %; HCT 31.3 % (34.0-46.0); HGB 9.7 gm/dL (11.4-16.0); Hypochromasia Marked; Lymphocytes # (A) 0.6 k/uL (1.0-4.8); Lymphocytes % (A) 11 %; MCHC 31.1 g/dL (31.0-37.0); MCV 96.6 fL (80.0-100.0); Macrocytosis Slight; Mean Platelet Volume 8.9; Monocytes # (A) 0.1 k/uL (0-1.0); Monocytes % (A) 3 %; Neutrophils # (A) 4.1 k/uL (1.3-7.7); Neutrophils % (A) 79 %; Platelet Count 246 k/uL (150-450); RBC 3.24 m/uL (3.80-5.40); RDW 19.4 % (11.5-15.5); WBC 5.2 k/uL (3.8-10.6)
[2022-07-28] MEDS: HEPARIN SODIUM,PORCINE/PF 5,000 UNIT/0.5 ML SYRINGE SQ SCH ×2 (08:03→21:48)
[2022-07-28 08:10] LABS: Albumin 3.8 g/dL (3.5-5.0); C Reactive Protein 0.5 mg/dL (<1.0); Calcium 7.5 mg/dL (8.4-10.2); Total Bilirubin 0.5 mg/dL (0.2-1.3); Total Protein 7.2 g/dL (6.3-8.2)
[2022-07-28 08:17] LABS: Potassium 6.1 mmol/L (3.5-5.1)
[2022-07-28] MEDS ORDERED: CALCIUM GLUCONATE IN NACL 1 GM in SALINE 1 100ML.BAG IVPB ONE (08:49)
--- NOTE | 2022-07-28 08:51 | P.NPCON ---
History of Present Illness - Reason for Consult end stage renal disease - History of Present Illness Reason for consultation: End-stage renal disease History of present illness: Patient is a 32-year-old female seen in renal consultation for end-stage renal disease. Patient was seen and examined in the emergency room. Patient is maintained on hemodialysis on Wednesday schedule. Patient c ompleted hemodialysis on Wednesday. She states she developed muscle aches and a productive cough starting Wednesday. She denies any fever or chills. She does admit to episodes of vomiting. No diarrhea. No chest pain. She did test positive for COVID-19. Blood pressure was high on admission but is starting to improve. Patient states she was unable to keep medications down due to vomiting. She is doing better now. Patient denies history of coronary artery disease. She does have history of diastolic CHF with severe pulmonary hypertension. Patient has history of failed kidney transplant. Vital signs are stable. General: Awake. No acute distress. HEENT: Head exam is unremarkable. LUNGS: Breath sounds decreased. HEART: Rate and Rhythm are regular. ABDOMEN: Soft, no distention. EXTREMITITES: Trace edema. 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 History of Any Multi-Drug Resistant Organisms: None Reported Past Surgical History: Heart Catheterization, Hernia Repair Additional Past Surgical History / Comment(s): 06/14/18 cardiac cath at [facility] to check coronary pressures, 11/15/09 Failed kidney transplant R pelvis, dialysis catheter in and out, current L upper arm AVG, supra pubic hernia repair, transvaginal mesh, wisdom teeth extraction with anesthesia, 2016 failed kidney transplant Past Anesthesia/Blood Transfusion Reactions: No Reported Reaction Additional Past Anesthesia/Blood Transfusion Reaction / Comment(s): Pt has received blood in past without reaction. Past Psychological History: Anxiety, Depression Smoking Status: Never smoker Past Alcohol Use History: None Reported Past Drug Use History: None Reported, Marijuana - Past Family History Father Family Medical History: No Reported History Additional Family Medical History / Comment(s): Father is healthy and is 62 yrs old. Mother Family Medical History: No Reported History Additional Family Medical History / Comment(s): Mother is healthy and is 60 yrs old. Medications and Allergies Home Medications Medication Instructions Recorded Confirmed Type Albuterol Sulfate [Proair Hfa] 2 puff INHALATION RT-Q6H PRN 01/22/16 07/27/22 History hydrALAZINE HCL [Apresoline] 100 mg PO TID 11/16/18 07/27/22 History Cinacalcet HCl [Sensipar] 120 mg PO MOWEFR 02/26/19 07/27/22 History Calcium Acetate [PhosLo] 2,668 mg PO TID-W/MEALS 05/01/20 07/27/22 History Lidocaine-Prilocaine Cream [Emla 1 applic TOPICAL DAILY PRN 05/01/20 07/27/22 H istory Cream 2.5%/2.5%] calcitrioL [Calcitriol] 3 mcg PO MOWEFR 10/29/21 07/27/22 History cloNIDine HCL [Catapres] 0.3 mg PO TID 10/29/21 07/27/22 History hydrOXYzine HCL [Atarax] 25 mg PO TID PRN 10/29/21 07/27/22 History Acetaminophen Tab [Tylenol] 1,000 mg PO Q6HR PRN 05/26/22 07/27/22 History Calcium Acetate [PhosLo] 667 - 1,334 mg PO BID PRN 05/26/22 07/27/22 History Isosorbide Mononitrate ER [Imdur] 30 mg PO DAILY 30 Days #30 tab 06/12/22 07/27/22 Rx NIFEdipine XL [Procardia XL] 60 mg PO Q12HR 30 Days #60 tab 06/12/22 07/27/22 Rx carvediloL [Coreg] 6.25 mg PO BID 30 Days #60 tab 06/12/22 07/27/22 Rx Allergies Allergy/AdvReac Type Severity Reaction Status Date / Time vancomycin Allergy Anaphylaxis Verified 07/27/22 13:55 hydralazine AdvReac Rapid Verified 07/27/22 13:55 Heart Rate WHEN GIVEN THROUGH IV Physical Exam Vitals: Vital Signs Temp Pulse Pulse Resp BP BP Pulse Ox 07/28/22 07:50 97.4 F L 57 L 16 144/80 98 07/28/22 04:00 98.7 F 67 12 142/85 97 07/28/22 03:17 136/90 07/28/22 02:53 156/105 07/27/22 23:55 80 14 160/99 100 07/27/22 23:33 160/99 07/27/22 22:24 170/109 07/27/22 21:02 98.1 F 70 14 153/102 100 07/27/22 19:00 89 18 153/100 100 07/27/22 17:51 205/121 07/27/22 16:06 84 18 190/124 95 07/27/22 14:53 80 18 200/115 100 07/27/22 11:51 98.4 F 81 18 212/118 100 Intake and Output 07/27/22 07/28/22 07/28/22 22:59 06:59 14:59 Other: # Voids 0 Results - Lab Results Most recent lab results Calcium 7.5 mg/dL (8.4-10.2) L 07/28/22 07:38 07/28/22 07:38 07/28/22 07:38 Assessment and Plan Plan: Assessment: 1. End-stage renal disease maintained on hemodialysis on Wednesday schedule. 2. Hyperkalemia secondary to chronic kidney disease and missed dialysis. 3. COVID-19 infection. 4. Anemia of chronic kidney disease. 5. Chronic kidney disease mineral bone disease maintained on Sensipar, calcitriol and PhosLo. 6. Hypertension with chronic kidney disease. 7. Chronic diastolic CHF with severe pulmonary hypertension. 8. Metabolic acidosis secondary to chronic kidney disease. Plan: 1 g IV calcium gluconate and 10 g lokelma now. Hemodialysis today. Check iron studies. Thank you for the consultation. I will continue to follow the patient with you during her hospital stay.
[2022-07-28] MEDS: CALCIUM ACETATE 667 MG TAB PO SCH ×3 (08:56→21:47)
[2022-07-28] MEDS: hydrALAZINE HCL 50 MG TAB PO SCH ×4 (09:06→23:01)
[2022-07-28] MEDS: cloNIDine HCL 0.1 MG TAB PO SCH ×3 (09:08→21:48)
[2022-07-28] MEDS: SODIUM ZIRCONIUM CYCLOSILICATE 10 GM PACKET PO ONE ×2 (09:09→09:10)
[2022-07-28] MEDS: ISOSORBIDE MONONITRATE ER 30 MG TAB.ER.24H PO SCH (09:13)
[2022-07-28] MEDS: PANTOPRAZOLE 40 MG/10 ML VIAL IVP SCH ×2 (09:30→21:48)
[2022-07-28 09:54] LABS: C Reactive Protein 0.6 mg/dL (<1.0)
--- NOTE | 2022-07-28 10:48 | P.CNPUL ---
History of Present Illness Consult date: 07/28/22 Requesting physician: Agnieszka Travis Reason for consult: dyspnea, hypoxemia, abnormal CXR/CT Chief complaint: Shortness of breath. History of present illness: Pulmonary consult dated 07/28/2022. 32-year-old black female with a history of CHF, and end-stage renal disease, currently on Wednesday/Wednesday/Wednesday hemodialysis. She presented to the emergency room, with complaints of shortness of breath, as well as nausea and vomiting. The patient missed her hemodialysis yesterday. We were consulted because of shortness of breath and mild fluid overload. The patient also tested positive for coronavirus infection. Currently, she is seen in room 19 in the emergency department. She's not receiving any IV fluids, and is currently on room air. White count 5.2, hemoglobin 9.7, hematocrit 31.3, platelet count 246,000. Sodium 136, potassium 6.1, chlorides 101, CO2 20, anion gap 15, BUN 71, and creatinine 15.32. Troponins were 0.048 and 0.046. Pro-calcitonin level was 0.71. Chest x-ray in my opinion showed evidence primarily of fluid overload. Review of Systems REVIEW OF SYSTEMS: CONSTITUTIONAL: Weakness. NEUROLOGIC: [ Negative.] HEENT: [ Negative.] CARDIAC: [Negative.] PULMONARY: Shortness of breath. GI: Nausea and vomiting. : [Negative.] RHEUMATOLOGIC: [ Negative.] IMMUNOLOGIC: [ Negative.] ENDOCRINE: [Negative. ] DERMATOLOGIC: [Negative.] Past Medical History Past Medical History: Asthma, Heart Failure, Hypertension, Renal Disease Additional Past Medical History / Comment(s): ESRD d/t being born with polycystic kidney disease, failed kidney transplant, hemodialysis (M,W,Fr), metabolic bone disease, chronic anemia, 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 History of Any Multi-Drug Resistant Organisms: None Reported Past Surgical History: Heart Catheterization, Hernia Repair Additional Past Surgical History / Comment(s): 06/14/18 cardiac cath at [facility] to check coronary pressures, 11/15/09 Failed kidney transplant R pelvis, dialysis catheter in and out, current L upper arm AVG, supra pubic hernia repair, transvaginal mesh, wisdom teeth extraction with anesthesia, 2017 failed kidney transplant Past Anesthesia/Blood Transfusion Reactions: No Reported Reaction Additional Past Anesthesia/Blood Transfusion Reaction / Comment(s): Pt has received blood in past without reaction. Past Psychological History: Anxiety, Depression Smoking Status: Never smoker Past Alcohol Use History: None Reported Past Drug Use History: None Reported, Marijuana - Past Family History Father Family Medical History: No Reported History Additional Family Medical History / Comment(s): Father is healthy and is 62 yrs old. Mother Family Medical History: No Reported History Additional Family Medical History / Comment(s): Mother is healthy and is 60 yrs old. Medications and Allergies Home Medications Medication Instructions Recorded Confirmed Type Albuterol Sulfate [Proair Hfa] 2 puff INHALATION RT-Q6H PRN 01/22/16 07/27/22 History hydrALAZINE HCL [Apresoline] 100 mg PO TID 11/16/18 07/27/22 History Cinacalcet HCl [Sensipar] 120 mg PO MOWEFR 02/26/19 07/27/22 History Calcium Acetate [PhosLo] 2,668 mg PO TID-W/MEALS 05/01/20 07/27/22 History Lidocaine-Prilocaine Cream [Emla 1 applic TOPICAL DAILY PRN 05/01/20 07/27/22 History Cream 2.5%/2.5%] calcitrioL [Calcitriol] 3 mcg PO MOWEFR 10/29/21 07/27/22 History cloNIDine HCL [Catapres] 0.3 mg PO TID 10/29/21 07/27/22 History hydrOXYzine HCL [Atarax] 25 mg PO TID PRN 10/29/21 07/27/22 History Acetaminophen Tab [Tylenol] 1,000 mg PO Q6HR PRN 05/26/22 07/27/22 History Calcium Acetate [PhosLo] 667 - 1,334 mg PO BID PRN 05/26/22 07/27/22 History Isosorbide Mononitrate ER [Imdur] 30 mg PO DAILY 30 Days #30 tab 06/12/22 07/27/22 Rx NIFEdipine XL [Procardia XL] 60 mg PO Q12HR 30 Days #60 tab 06/12/22 07/27/22 Rx carvediloL [Coreg] 6.25 mg PO BID 30 Days #60 tab 06/12/22 07/27/22 Rx Allergies Allergy/AdvReac Type Severity Reaction Status Date / Time vancomycin Allergy Anaphylaxis Verified 07/27/22 13:55 hydralazine AdvReac Rapid Verified 07/27/22 13:55 Heart Rate WHEN GIVEN THROUGH IV Physical Exam Osteopathic Statement: *. No significant issues noted on an osteopathic structural exam other than those noted in the History and Physical/Consult. Vitals: Vital Signs Temp Pulse Pulse Resp BP BP Pulse Ox 07/28/22 07:50 97.4 F L 57 L 16 144/80 98 07/28/22 04:00 98.7 F 67 12 142/85 97 07/28/22 03:17 136/90 07/28/22 02:53 156/105 07/27/22 23:55 80 14 160/99 100 07/27/22 23:33 160/99 07/27/22 22:24 170/109 07/27/22 21:02 98.1 F 70 14 153/102 100 07/27/22 19:00 89 18 153/100 100 07/27/22 17:51 205/121 07/27/22 16:06 84 18 190/124 95 07/27/22 14:53 80 18 200/115 100 07/27/22 11:51 98.4 F 81 18 212/118 100 Intake and Output 07/27/22 07/28/22 07/28/22 22:59 06:59 14:59 Other: # Voids 0 No acute distress, oriented 3. Currently on room air. HEENT examination is grossly unremarkable. Neck supple. Full range of motion. No adenopathy thyromegaly or neck vein distention. Cardiovascular examination reveals regular rhythm rate. S1-S2 normal. No S3 or S4. No discernible murmur noted. Heart rate 57 bpm. Lungs reveal scattered mild rhonchi and crackles. Breath sounds equal. Her exam was mostly normal. Room air saturation is 98%. Abdomen soft bowel sounds are heard. No masses or tenderness. Extremities are intact. No cyanosis clubbing or edema. Skin is without rash or lesion. Neurologic examination is brief but nonfocal. Results - Laboratory Findings CBC and BMP: 07/28/22 07:38 07/28/22 07:38 PT/INR, D-dimer D-Dimer 0.56 mg/L FEU (<0.60) 07/28/22 08:55 Abnormal lab findings: Abnormal Labs 07/27/22 07/27/22 07/27/22 12:41 12:41 12:41 RBC 3.47 L Hgb 10.4 L Hct 33.1 L RDW 19.1 H Lymphocytes # 0.5 L Sodium Potassium 5.2 H Carbon Dioxide BUN 61 H Creatinine 13.40 H* Calcium Troponin I Total Protein 8.3 H Procalcitonin SARS-CoV-2 (PCR) Detected A 07/27/22 07/27/22 07/27/22 12:41 14:52 14:52 RBC Hgb Hct RDW Lymphocytes # Sodium Potassium 5.2 H Carbon Dioxide 21 L BUN 63 H Creatinine 13.70 H* Calcium 8.3 L Troponin I 0.048 H* Total Protein Procalcitonin 0.71 H SARS-CoV-2 (PCR) 07/27/22 07/27/22 07/28/22 15:32 18:32 07:38 RBC Hgb Hct RDW Lymphocytes # Sodium 136 L Potassium 6.1 H* Carbon Dioxide 20 L BUN 71 H Creatinine 15.32 H* Calcium 7.5 L Troponin I 0.048 H* 0.046 H* Total Protein Procalcitonin SARS-CoV-2 (PCR) 07/28/22 07:38 RBC 3.24 L Hgb 9.7 L Hct 31.3 L RDW 19.4 H Lymphocytes # 0.6 L Sodium Potassium Carbon Dioxide BUN Creatinine Calcium Troponin I Total Protein Procalcitonin SARS-CoV-2 (PCR) - Diagnostic Findings Chest x-ray: image reviewed Assessment and Plan Assessment: Mild shortness of breath, secondary to fluid overload. End-stage renal disease, currently on Wednesday/Wednesday/Wednesday hemodialysis, with missed dialysis yesterday. History of polycystic kidney disease. History of heart failure. History of hypertension. Anemia of chronic disease. History of cardiomyopathy. Moderate mitral valve regurgitation. Vitamin D deficiency. Chronic low back pain. Plan: Plan dated 07/28/2022. From the pulmonary standpoint, the patient is very stable. She's on room air. She is lying flat. No respiratory issues or distress. I suspect she'll have hemodialysis today. We will continue to follow her, during her hospitalization, and make recommendations along the way. Prognosis is guarded. No additional recommendations are made. Time with Patient: Greater than 30
[2022-07-28 14:53] LABS: % Iron Saturation 14.29 (12.00-45.00)
[2022-07-28] MEDS: AZITHROMYCIN 250 MG TAB PO SCH (17:03)
--- NOTE | 2022-07-28 20:44 | P.CONS ---
History of Present Illness - Reason for Consult Consult date: 07/28/22 covid, Remdisivir Requesting physician: Agnieszka Travis - Chief Complaint Weakness vomiting unable to keep anything x few days - History of Present Illness Patient is a 32-year-old -Greek female with a past medical history significant for end-stage renal disease on hemodialysis patient presenting to the ER for evaluation of shortness of breath nausea and vomiting and unable to keep anything down patient's symptom has been going on for few days before presentation to the hospital patient has significant abdominal pain or any diarrhea or constipation patient also complaining of shortness of breath did have a mild cough but no sputum production no URI symptoms has been complaining of weakness no high-grade fever on presentation to the hospital the patient was afebrile and no fever has been recorded subsequently patient was not hypoxic or need for supplemental oxygen currently 98% on room air patient did have a positive COVID test influenza RSV PCR was negative patient did have a normal white count did have elevated BUN to creatinine because of history of renal failure liver exams are normal she did have elevated troponin and also have elevated procalcitonin which is up to 1.01 today patient did have a chest x-ray increased airspace opacity in the right lung base peribronchial cuffing correlate for small airways or developing pneumonia patient was admitted to the hospital infectious disease was consulted for further management of antibiotic therapy Review of Systems Positive point has been mentioned in the HPI rest of the systems are negative Past Medical History Past Medical History: Asthma, Heart Failure, Hypertension, Renal Disease Additional Past Medical History / Comment(s): ESRD d/t being born with polycystic kidney disease, failed kidney transplant, hemodialysis (M,W,Fr), metabolic bone disease, chronic anemia, 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 History of Any Multi-Drug Resistant Organisms: None Reported Past Surgical History: Heart Catheterization, Hernia Repair Additional Past Surgical History / Comment(s): 06/14/18 cardiac cath at [facility] to check coronary pressures, 11/15/09 Failed kidney transplant R pelvis, dialysis catheter in and out, current L upper arm AVG, supra pubic hernia repair, transvaginal mesh, wisdom teeth extraction with anesthesia, 2016 failed kidney transplant Past Anesthesia/Blood Transfusion Reactions: No Reported Reaction Additional Past Anesthesia/Blood Transfusion Reaction / Comm: Pt has received blood in past without reaction. Past Psychological History: Anxiety, Depression Smoking Status: Never smoker Past Alcohol Use History: None Reported Past Drug Use History: None Reported, Marijuana - Past Family History Father Family Medical History: No Reported History Additional Family Medical History / Comment(s): Father is healthy and is 62 yrs old. Mother Family Medical History: No Reported History Additional Family Medical History / Comment(s): Mother is healthy and is 60 yrs old. Medications and Allergies Home Medications Medication Instructions Recorded Confirmed Type Albuterol Sulfate [Proair Hfa] 2 puff INHALATION RT-Q6H PRN 01/22/16 07/27/22 History hydrALAZINE HCL [Apresoline] 100 mg PO TID 11/16/18 07/27/22 History Cinacalcet HCl [Sensipar] 120 mg PO MOWEFR 02/26/19 07/27/22 History Calcium Acetate [PhosLo] 2,668 mg PO TID-W/MEALS 05/01/20 07/27/22 History Lidocaine-Prilocaine Cream [Emla 1 applic TOPICAL DAILY PRN 05/01/20 07/27/22 History Cream 2.5%/2.5%] calcitrioL [Calcitriol] 3 mcg PO MOWEFR 10/29/21 07/27/22 History cloNIDine HCL [Catapres] 0.3 mg PO TID 10/29/21 07/27/22 History hydrOXYzine HCL [Atarax] 25 mg PO TID PRN 10/29/21 07/27/22 History Acetaminophen Tab [Tylenol] 1,000 mg PO Q6HR PRN 05/26/22 07/27/22 History Calcium Acetate [PhosLo] 667 - 1,334 mg PO BID PRN 05/26/22 07/27/22 History Isosorbide Mononitrate ER [Imdur] 30 mg PO DAILY 30 Days #30 tab 06/12/22 07/27/22 Rx NIFEdipine XL [Procardia XL] 60 mg PO Q12HR 30 Days #60 tab 06/12/22 07/27/22 Rx carvediloL [Coreg] 6.25 mg PO BID 30 Days #60 tab 06/12/22 07/27/22 Rx Ascorbic Acid [Vitamin C] 1,000 mg PO DAILY 30 Days #60 tab 12/28/22 Rx Azithromycin [Zithromax] 250 mg PO DAILY 4 Days #4 tab 07/29/22 Rx HYDROcodone/APAP 5-325MG [[place] 1 each PO Q6HR PRN #6 tab 07/29/22 Rx 5-325] Pantoprazole [Protonix] 40 mg PO DAILY 30 Days #30 tab 07/29/22 Rx cefUROXime axetiL [Ceftin] 500 mg PO BID 3 Days #6 tab 07/29/22 Rx Allergies Allergy/AdvReac Type Severity Reaction Status Date / Time vancomycin Allergy Anaphylaxis Verified 07/27/22 13:55 hydralazine AdvReac Rapid Verified 07/27/22 13:55 Heart Rate WHEN GIVEN THROUGH IV Physical Exam Vitals: Vital Signs Temp Pulse Pulse Resp BP BP Pulse Ox 07/28/22 07:50 97.4 F L 57 L 16 144/80 98 07/28/22 04:00 98.7 F 67 12 142/85 97 07/28/22 03:17 136/90 07/28/22 02:53 156/105 07/27/22 23:55 80 14 160/99 100 07/27/22 23:33 160/99 07/27/22 22:24 170/109 07/27/22 21:02 98.1 F 70 14 153/102 100 07/27/22 19:00 89 18 153/100 100 07/27/22 17:51 205/121 07/27/22 16:06 84 18 190/124 95 07/27/22 14:53 80 18 200/115 100 07/27/22 11:51 98.4 F 81 18 212/118 100 Intake and Output 07/27/22 07/28/22 07/28/22 22:59 06:59 14:59 Other: # Voids 0 GENERAL DESCRIPTION: Middle-aged female lying in bed, no distress. No tachypnea or accessory muscle of respiration use. HEENT: Shows Pallor , no scleral icterus. Oral mucous membrane is dry. No pharyngeal erythema or thrush NECK: Trachea central, no thyromegaly. LUNGS: Unlabored breathing. Decreased intensity of breath sounds. No wheeze or crackle. HEART: S1, S2, regular rate and rhythm. No loud murmur ABDOMEN: Soft, no tenderness , guarding or rigidity, no organomegaly EXTREMITIES: No edema of feet. SKIN: No rash, no masses palpable. NEUROLOGICAL: The patient is awake, alert, oriented x3, mood and affect normal. Results CBC & Chem 7: 07/28/22 07:38 07/29/22 00:15 Labs: Abnormal Lab Results - Last 24 Hours (Table) 07/27/22 07/27/22 07/27/22 Range/Units 12:41 12:41 12:41 RBC 3.47 L (3.80-5.40) m/uL Hgb 10.4 L (11.4-16.0) gm/dL Hct 33.1 L (34.0-46.0) % RDW 19.1 H (11.5-15.5) % Lymphocytes # 0.5 L (1.0-4.8) k/uL Sodium (137-145) mmol/L Potassium 5.2 H (3.5-5.1) mmol/L Carbon Dioxide (22-30) mmol/L BUN 61 H (7-17) mg/dL Creatinine 13.40 H* (0.52-1.04) mg/dL Calcium (8.4-10.2) mg/dL Troponin I (0.000-0.034) ng/mL Total Protein 8.3 H (6.3-8.2) g/dL Procalcitonin (0.02-0.09) ng/mL SARS-CoV-2 (PCR) Detected A (Not Detectd) 07/27/22 07/27/22 07/27/22 Range/Units 12:41 14:52 14:52 RBC (3.80-5.40) m/uL Hgb (11.4-16.0) gm/dL Hct (34.0-46.0) % RDW (11.5-15.5) % Lymphocytes # (1.0-4.8) k/uL Sodium (137-145) mmol/L Potassium 5.2 H (3.5-5.1) mmol/L Carbon Dioxide 21 L (22-30) mmol/L BUN 63 H (7-17) mg/dL Creatinine 13.70 H* (0.52-1.04) mg/dL Calcium 8.3 L (8.4-10.2) mg/dL Troponin I 0.048 H* (0.000-0.034) ng/mL Total Protein (6.3-8.2) g/dL Procalcitonin 0.71 H (0.02-0.09) ng/mL SARS-CoV-2 (PCR) (Not Detectd) 07/27/22 07/27/22 07/28/22 Range/Units 15:32 18:32 07:38 RBC (3.80-5.40) m/uL Hgb (11.4-16.0) gm/dL Hct (34.0-46.0) % RDW (11.5-15.5) % Lymphocytes # (1.0-4.8) k/uL Sodium 136 L (137-145) mmol/L Potassium 6.1 H* (3.5-5.1) mmol/L Carbon Dioxide 20 L (22-30) mmol/L BUN 71 H (7-17) mg/dL Creatinine 15.32 H* (0.52-1.04) mg/dL Calcium 7.5 L (8.4-10.2) mg/dL Troponin I 0.048 H* 0.046 H* (0.000-0.034) ng/mL Total Protein (6.3-8.2) g/dL Procalcitonin (0.02-0.09) ng/mL SARS-CoV-2 (PCR) (Not Detectd) 07/28/22 07/28/22 Range/Units 07:38 07:38 RBC 3.24 L (3.80-5.40) m/uL Hgb 9.7 L (11.4-16.0) gm/dL Hct 31.3 L (34.0-46.0) % RDW 19.4 H (11.5-15.5) % Lymphocytes # 0.6 L (1.0-4.8) k/uL Sodium (137-145) mmol/L Potassium (3.5-5.1) mmol/L Carbon Dioxide (22-30) mmol/L BUN (7-17) mg/dL Creatinine (0.52-1.04) mg/dL Calcium (8.4-10.2) mg/dL Troponin I (0.000-0.034) ng/mL Total Protein (6.3-8.2) g/dL Procalcitonin 1.01 H (0.02-0.09) ng/mL SARS-CoV-2 (PCR) (Not Detectd) Assessment and Plan (1) COVID Current Visit: Yes Status: Acute Code(s): U07.1 - COVID-19 SNOMED Code(s): 258077239 (2) Pneumonia Current Visit: Yes Status: Acute Code(s): J18.9 - PNEUMONIA, UNSPECIFIED ORGANISM SNOMED Code(s): 082503145 Plan: 1patient presented to hospital with increasing shortness of breath weakness vomiting which is likely multifactorial in this patient with possible fluid overload as do have a history of renal failure as well as congestive heart failure did have a positive COVID test however the patient is currently not hypoxic or need for supplemental oxygen treatment for COVID to be mostly supportive patient did have elevated procalcitonin possible component of bacterial pneumonia not entirely excluded 2we will obtain a sputum for gram stain and culture 3-empirically add Rocephin and Zithromax while waiting for the condition to stabilize and culture to finalize 4-patient to continue with heparin we will add zinc and ascorbic acid for underlying COVID no need for steroids or remdesivir 5droplet isolation We will follow on clinical condition and cultures to further adjust medication if needed Thank you for this consultation we will follow the patient along with you Time with Patient: Greater than 30
[2022-07-28 21:43] VITALS: RESP 16
[2022-07-29] MEDS: ONDANSETRON 4 MG/2 ML VIAL IVP PRN (03:32)
[2022-07-29] MEDS: HYDROcodone/APAP 5-325MG 1 EACH TAB PO PRN ×2 (03:34→10:02)
--- NOTE | 2022-07-29 03:38 | PN ---
PROGRESS NOTE DATE OF SERVICE: 07/28/2022 SUBJECTIVE: This 32-year-old woman is admitted with multiple medical concerns, acute COVID-19 infection, COVID-19 pneumonia. Multiple consultants including Pulmonary are following the patient closely. Fluid overload is also being considered. The patient is receiving hemodialysis with removal of 2.5 L of fluid. PAST MEDICAL HISTORY: Reviewed. REVIEW OF SYSTEMS: 14-point review is negative except mentioned earlier. CURRENT MEDICATIONS: Reviewed, include Rocaltrol, dose and rest of medication reviewed. PHYSICAL EXAMINATION: VITAL SIGNS: Pulse is 57, blood pressure 140/80, respirations 16. HEENT: Conjunctivae normal. CARDIOVASCULAR: S1, S2 muffled. RESPIRATION: Breath sounds diminished at the bases. A few scattered rhonchi. ABDOMEN: Soft, nontender. NERVOUS SYSTEM: No focal deficits. LABORATORY DATA: Potassium is 6.8, sodium 136. Rest of the labs are noted. Procalcitonin is 1.01. ASSESSMENT: 1. Nausea, vomiting, shortness of breath, possible acute COVID-19 infection with COVID- 19 pneumonia. 2. Chronic renal failure, chronic kidney disease, end-stage renal disease. 3. Troponin is 0.048, rule out acute coronary syndrome. 4. History of asthma. 5. Hypertension. 6. Multiple medical issues. RECOMMENDATIONS: I recommend to continue current medications, continue symptomatic treatment. Otherwise, we will continue to monitor with Pulmonary, Infectious Disease. Continue rest of medication, hemodialysis. The patient is on subcu heparin. Monitor blood pressure closely. Blood pressure is definitely improved compared to yesterday; however, the prognosis was extremely guarded because of multiple complex medical issues. Further recommendations to follow. MMODL / IJN: [id number] /
[2022-07-29] MEDS: CALCIUM ACETATE 667 MG TAB PO SCH ×3 (06:41→17:40)
[2022-07-29] MEDS: carvediloL 6.25 MG TAB PO SCH ×2 (06:41→17:26)
--- NOTE | 2022-07-29 07:12 | XR ---
EXAMINATION TYPE: XR chest 1V portable DATE OF EXAM: 07/29/2022 6:49 AM COMPARISON: Chest radiograph from two days prior. TECHNIQUE: XR chest 1V portable Portable AP radiograph of the chest. CLINICAL INDICATION:Female, 32 years old with history of pneumonia; FINDINGS: Lungs/Pleura: Improved aeration of lungs on today's exam with persistent right lower lung airspace op acities. No evidence of pneumothorax or large pleural effusion. Pulmonary vascularity: Unremarkable. Heart/mediastinum: Cardiomediastinal silhouette is enlarged and stable. Musculoskeletal: No acute osseous pathology. IMPRESSION: Improved aeration of the right lung base compared to prior.
[2022-07-29] MEDS: ALBUTEROL HFA INHALER INHALATION SCH ×2 (07:47→13:06)
[2022-07-29] MEDS ORDERED: ASCORBIC ACID 500 MG TAB PO SCH (09:00)
[2022-07-29] MEDS: HEPARIN SODIUM,PORCINE/PF 5,000 UNIT/0.5 ML SYRINGE SQ SCH (09:45)
[2022-07-29] MEDS: PANTOPRAZOLE 40 MG/10 ML VIAL IVP SCH (10:01)
[2022-07-29] MEDS: AZITHROMYCIN 250 MG TAB PO SCH (10:02)
[2022-07-29] MEDS: ISOSORBIDE MONONITRATE ER 30 MG TAB.ER.24H PO SCH (10:02)
--- NOTE | 2022-07-29 13:04 | P.PN ---
Subjective Patient is seen in follow-up for end-stage renal disease. She is maintained on hemodialysis on Wednesday schedule. Tolerated 2.5 L u ltrafiltration yesterday. Blood pressure stable. On room air. Vital signs are stable. General: No acute distress. HEENT: Head exam is unremarkable. LUNGS: Breath sounds decreased. HEART: Rate and Rhythm are regular. ABDOMEN: Soft, no distention. EXTREMITITES: No edema. Objective - Vital Signs Vital signs: Vital Signs Temp 97.5 F L 07/29/22 12:54 Pulse 64 07/29/22 12:54 Resp 16 07/29/22 12:54 BP 106/59 07/29/22 12:54 Pulse Ox 100 07/29/22 12:54 FiO2 Intake & Output 07/28/22 07/29/22 07/29/22 18:59 06:59 18:59 Intake Total 500 237 128 Output Total 2500 Balance -2000 237 128 Weight 58.967 kg Intake: IV 10 Invasive Line 1 10 Oral 237 118 Hemodialysis 500 Output: Hemodialysis 2500 Other: # Voids 1 - Labs CBC & Chem 7: 07/28/22 07:38 07/29/22 00:15 Labs: Abnormal Lab Results - Last 24 Hours (Table) 07/28/22 Range/Units 08:55 Iron 29 L (50-170) ug/dL TIBC 202 L (228-460) ug/dL Transferrin 144.0 L (204.0-354.0) mg/dL Ferritin 1387.0 H (10.0-291.0) ng/mL Assessment and Plan Plan: Assessment: 1. End-stage renal disease maintained on hemodialysis on Wednesday schedule. 2. Hyperkalemia secondary to chronic kidney disease and missed dialysis. Improved. 3. COVID-19 infection. 4. Anemia of chronic kidney disease. High ferritin level noted. 5. Chronic kidney disease mineral bone disease maintained on Sensipar, calcitriol and PhosLo. 6. Hypertension with chronic kidney disease. Controlled. 7. Chronic diastolic CHF with severe pulmonary hypertension. 8. Metabolic acidosis secondary to chronic kidney disease. Expect improvement postdialysis. Plan: Hemodialysis today. Add Aranesp.
--- NOTE | 2022-07-29 13:50 | P.PN ---
Subjective Progress Note Date: 07/29/22 32-year-old black female with a history of CHF, and end-stage renal disease, currently on Wednesday/Wednesday/Wednesday hemodialysis. She presented to the emergency room, with complaints of shortness of breath, as well as nausea and vomiting. The patient missed her hemodialysis yesterday. We were consulted b ecause of shortness of breath and mild fluid overload. The patient also tested positive for coronavirus infection. Currently, she is seen in room 19 in the emergency department. She's not receiving any IV fluids, and is currently on room air. White count 5.2, hemoglobin 9.7, hematocrit 31.3, platelet count 246,000. Sodium 136, potassium 6.1, chlorides 101, CO2 20, anion gap 15, BUN 71, and creatinine 15.32. Troponins were 0.048 and 0.046. Pro-calcitonin level was 0.71. Chest x-ray in my opinion showed evidence primarily of fluid overload. The patient is seen today 07/29/2022 in follow-up on the selective care unit. She is currently resting comfortably in bed. Awake and alert in no acute distress. Maintaining good O2 saturations up to 100% on room air. Afebrile. Hemodynamically stable. Chest x-ray shows improved aeration of the right lung base. She did undergo hemodialysis yesterday with 2.5 L removed. Feeling back to her baseline. Current potassium 4.3. Objective - Vital Signs Vital signs: Vital Signs Temp 97.5 F L 07/29/22 12:54 Pulse 64 07/29/22 12:54 Resp 16 07/29/22 12:54 BP 106/59 07/29/22 12:54 Pulse Ox 100 07/29/22 12:54 FiO2 Intake & Output 07/28/22 07/29/22 07/29/22 18:59 06:59 18:59 Intake Total 500 237 128 Output Total 2500 Balance -1999 237 128 Weight 58.967 kg Intake: IV 10 Invasive Line 1 10 Oral 237 118 Hemodialysis 500 Output: Hemodialysis 2500 Other: # Voids 1 - Exam Alert, oriented 32-year-old female. No acute distress, oriented 3. Currently on room air. HEENT examination is grossly unremarkable. Neck supple. Full range of motion. No adenopathy thyromegaly or neck vein distention. Cardiovascular examination reveals regular rhythm rate. S1-S2 normal. No S3 or S4. No discernible murmur noted. Lungs reveal scattered mild rhonchi and crackles. Breath sounds equal. Her exam was mostly normal. Room air saturation is 100%. Abdomen soft bowel sounds are heard. No masses or tenderness. Extremities are intact. No cyanosis clubbing or edema. Skin is without rash or lesion. Neurologic examination is brief but nonfocal. - Labs CBC & Chem 7: 07/28/22 07:38 07/29/22 00:15 Labs: Abnormal Lab Results - Last 24 Hours (Table) 07/28/22 Range/Units 08:55 Iron 29 L (50-170) ug/dL TIBC 202 L (228-460) ug/dL Transferrin 144.0 L (204.0-354.0) mg/dL Ferritin 1387.0 H (10.0-291.0) ng/mL Assessment and Plan Assessment: Mild shortness of breath, secondary to fluid overload, receive hemodialysis 07/28/2022 with 2-1/2 L removed, improved, on room air End-stage renal disease, currently on Wednesday/Wednesday/Wednesday hemodialysis, with missed dialysis 07/27/2022. COVID-19 infection without CoVID-19 pneumonia History of polycystic kidney disease. History of heart failure. History of hypertension. Anemia of chronic disease. History of cardiomyopathy. Moderate mitral valve regurgitation. Vitamin D deficiency. Chronic low back pain. Plan: The patient was seen and evaluated Currently stable and on room air Feeling back to her baseline Cleared for discharge from pulmonary standpoint Continue her hemodialysis treatments as scheduled I have personally seen and examined the patient, performed the documentation and the assessment and plan as written. Number of minutes spent on the visit: 10.
[2022-07-29] MEDS ORDERED: DARBEPOETIN ALFA 40 MCG/0.4 ML SYRINGE SQ SCH (14:00)
--- NOTE | 2022-07-29 14:22 | P.PN ---
Subjective Progress Note Date: 07/29/22 Principal diagnosis: Covid 19 and pneumonia Patient is a 32-year-old -[place] female with a past medical history significant for end-stage renal disease on hemodialysis patient presenting to the ER for evaluation of shortness of breath nausea and vomiting and unable to keep anything down patient's symptom has been going on for few days before presentation to the hospital, the patient tested positive for covid 19 and also have elevated pro-calcitonin. On today's evaluation that is 05/29/2022, the patient denies having any fever or any chills, the patient is currently breathing comfortably on room air the patient denies having any chest pain the patient cough is decreased in intensity no nausea no vomiting no abdominal pain no diarrhea Objective - Vital Signs Vital signs: Vital Signs Temp 97.1 F L 07/29/22 09:58 Pulse 66 07/29/22 09:58 Resp 16 07/29/22 09:58 BP 125/73 07/29/22 09:58 Pulse Ox 99 07/29/22 09:58 FiO2 Intake & Output 07/28/22 07/29/22 07/29/22 18:59 06:59 18:59 Intake Total 500 237 128 Output Total 2500 Balance -1999 237 128 Weight 58.967 kg Intake: IV 10 Invasive Line 1 10 Oral 237 118 Hemodialysis 500 Output: Hemodialysis 2500 Other: # Voids 1 - Exam GENERAL DESCRIPTION: A middle-aged female lying in bed in no distress RESPIRATORY SYSTEM: Unlabored breathing , decreased breath sounds at bases HEART: S1 S2 regular rate and rhythm , ABDOMEN: Soft , no tenderness EXTREMITIES: No edema feet - Labs CBC & Chem 7: 07/28/22 07:38 07/29/22 00:15 Labs: Abnormal Lab Results - Last 24 Hours (Table) 07/28/22 Range/Units 08:55 Iron 29 L (50-170) ug/dL TIBC 202 L (228-460) ug/dL Transferrin 144.0 L (204.0-354.0) mg/dL Ferritin 1387.0 H (10.0-291.0) ng/mL Assessment and Plan (1) Pneumonia Current Visit: Yes Status: Acute Code(s): J18.9 - PNEUMONIA, UNSPECIFIED ORGANISM SNOMED Code(s): 681219970 (2) COVID Current Visit: Yes Status: Acute Code(s): U07.1 - COVID-19 SNOMED Code(s): 420150664 Plan: 1patient presented to hospital with increasing shortness of breath weakness vomiting which is likely multifactorial in this patient with possible fluid overload as do have a history of renal failure as well as congestive heart failure did have a positive COVID test however the patient is currently not hypoxic or need for supplemental oxygen treatment for COVID to be mostly supportive patient did have elevated procalcitonin possible component of bacterial pneumonia not entirely excluded 2sputum for gram stain and culture has been requested Patient to continue with Rocephin and Zithromax while waiting for the condition to stabilize and culture to finalize 4-patient to continue with heparin we will add zinc and ascorbic acid for underlying COVID no need for steroids or remdesivir 5droplet isolation Time with Patient: Less than 30
[2022-07-29 17:25] VITALS: BP 172/81; PULSE 76; TEMP 97.6
[2022-07-29] MEDS: hydrALAZINE HCL 50 MG TAB PO SCH ×2 (17:25→17:27)
[2022-07-29] MEDS: cloNIDine HCL 0.1 MG TAB PO SCH ×2 (17:25→17:26)
[2022-07-29] MEDS: CINACALCET 30 MG TAB PO SCH (17:40)
--- NOTE | 2022-07-29 22:21 | DS ---
DISCHARGE SUMMARY FINAL DIAGNOSES: 1. Nausea, vomiting, shortness of breath, possible acute COVID-19 infection. 2. Chronic renal failure with chronic kidney disease, end-stage renal disease. 3. Pneumonia, present on admission, improved. 4. Troponin 0.048, possibly secondary from COVID or type 2 acute ybt-BY-utydiif- elevation myocardial infarction. 5. History of asthma. 6. Hypertension. 7. Multiple medical issues. DISCHARGE DISPOSITION: The patient will be discharged in stable condition with guarded prognosis. HISTORY OF PRESENT ILLNESS: This 32-year-old woman with a past medical history of multiple medical problems admitted with multiple symptomatology as mentioned earlier. The patient treated in conjunction with multiple consultants Infectious Disease, Nephrology and Pulmonology. The patient improved significantly. PHYSICAL EXAMINATION: VITAL SIGNS: Stable. CARDIOVASCULAR: S1, S2. ABDOMEN: Soft. NERVOUS SYSTEM: No focal deficits. The patient will be discharged in stable condition with guarded prognosis. Diet is renal low-potassium. Follow up with Dr. Karo Alicea in 2 to 3 days. CBC, BMP. Follow up with Dr. Kirby as needed. Follow up with Pulmonary and ID is advised. Continue current medications: 1. Ceftin 500 mg p.o. b.i.d. for 3 days. 2. Gaines 5 mg p.o. q.6h p.r.n. 3. Protonix 40 mg p.o. daily. 4. Zithromax 250 mg p.o. daily for 4 days. 5. Vitamin C 1000 mg p.o. daily. Once again, the patient will be discharged in stable condition and guarded prognosis. MMODL / IJN: [id number] /
== END 2022-07-29 18:09 | disposition home or self-care (01) | DRG 280 ==
LOC: EC 10:56 → 3SCARD 14:16
PROVIDERS: ADMIT Hospitalist; ATTEND Hospitalist
PROC: 5A1D70Z Performance of Urinary Filtration, Intermittent, Less than 6 Hours Per Day (ICD-10-PCS; principal; 2022-07-28)
DX: I13.2 Hypertensive heart and chronic kidney disease with heart failure and with stage 5 chronic kidney disease, or end stage renal disease (principal); J12.82 Pneumonia due to coronavirus disease 2019; I21.A1 Myocardial infarction type 2; I42.9 Cardiomyopathy, unspecified; N18.6 End stage renal disease; U07.1 COVID-19; Q61.3 Polycystic kidney, unspecified; E87.20 Acidosis, unspecified; I50.32 Chronic diastolic (congestive) heart failure; D63.1 Anemia in chronic kidney disease; E55.9 Vitamin D deficiency, unspecified; E87.5 Hyperkalemia; G89.29 Other chronic pain; I27.20 Pulmonary hypertension, unspecified; I34.0 Nonrheumatic mitral (valve) insufficiency; J45.909 Unspecified asthma, uncomplicated; Z79.899 Other long term (current) drug therapy; Z99.2 Dependence on renal dialysis; Z88.1 Allergy status to other antibiotic agents; Z88.8 Allergy status to other drugs, medicaments and biological substances
CPT/HCPCS: 36415; 71045; 71046; 80053; 82728; 83540; 83550; 83615; 83880; 84132; 84145; 84484; 85025; 85379; 86140; 87636; 90935; 93005; 94640; 96365; 96375; 96376; 99285

== ENCOUNTER 2022-08-12 07:51 | Inpatient (IN) | payer BC, MEDICARE, OTHER ==
[2022-08-12] MEDS ORDERED: ASPIRIN 81 MG PO STA (08:05)
[2022-08-12] MEDS ORDERED: DILTIAZEM DRIP BOLUS FROM BAG 1 MG SOLN IV ONE (08:05)
[2022-08-12] MEDS ORDERED: DILTIAZEM 125 MG in SODIUM CHLORIDE 0.9% 100 ML IV SCH (08:15)
[2022-08-12 08:30] LABS: Anisocytosis Moderate; Basophils # (A) 0.1 k/uL (0-0.2); Basophils % (A) 1 %; Eosinophils # (A) 0.4 k/uL (0-0.7); Eosinophils % (A) 6 %; HCT 37.4 % (34.0-46.0); HGB 11.6 gm/dL (11.4-16.0); Hypochromasia Slight; Lymphocytes # (A) 1.4 k/uL (1.0-4.8); Lymphocytes % (A) 21 %; MCH 30.1 pg (25.0-35.0); MCHC 31.1 g/dL (31.0-37.0); MCV 96.7 fL (80.0-100.0); Macrocytosis Moderate; Mean Platelet Volume 8.7; Monocytes # (A) 0.3 k/uL (0-1.0); Monocytes % (A) 4 %; Neutrophils # (A) 4.6 k/uL (1.3-7.7); Neutrophils % (A) 67 %; Platelet Count 198 k/uL (150-450); RBC 3.86 m/uL (3.80-5.40); RDW 21.3 % (11.5-15.5); WBC 6.9 k/uL (3.8-10.6)
--- NOTE | 2022-08-12 08:38 | ED ---
Chest Pain HPI - General Chief Complaint: Chest Pain Stated Complaint: palpitations Time Seen by Provider: 08/12/22 08:00 Source: patient, EMS, RN notes reviewed Mode of arrival: EMS Limitations: no limitations - History of Present Illness Initial Comments: 32-year-old female with a history of chronic renal failure on dialysis who had just started dialysis this morning when she started developing palpitations and some low-grade midsternal burning sensation. No shortness breath no nausea vomiting fevers chills or sweats. She is brought in by EMS noted be tachycardic. She states this is not ever happened before. MD Complaint: chest pain - Related Data Home Medications Medication Instructions Recorded Confirmed Albuterol Sulfate [Proair Hfa] 2 puff INHALATION RT-Q6H PRN 01/22/16 08/12/22 hydrALAZINE HCL [Apresoline] 100 mg PO TID 11/16/18 08/12/22 Cinacalcet HCl [Sensipar] 120 mg PO MOWEFR 02/26/19 08/12/22 Calcium Acetate [PhosLo] 2,668 mg PO TID-W/MEALS 05/01/20 08/12/22 Lidocaine-Prilocaine Cream [Emla 1 applic TOPICAL DAILY PRN 05/01/20 08/12/22 Cream 2.5%/2.5%] calcitrioL [Calcitriol] 3 mcg PO MOWEFR 10/29/21 08/12/22 cloNIDine HCL [Catapres] 0.3 mg PO TID 10/29/21 08/12/22 hydrOXYzine HCL [Atarax] 25 mg PO TID PRN 10/29/21 08/12/22 Acetaminophen Tab [Tylenol] 1,000 mg PO Q6HR PRN 05/26/22 08/12/22 Calcium Acetate [PhosLo] 667 - 1,334 mg PO BID PRN 05/26/22 08/12/22 HYDROcodone/APAP 5-325MG [Ona 1 tab PO Q6HR PRN 08/12/22 08/12/22 5-325] Previous Rx's Medication Instructions Recorded Isosorbide Mononitrate ER [Imdur] 30 mg PO DAILY 30 Days #30 tab 06/12/22 NIFEdipine XL [Procardia XL] 60 mg PO Q12HR 30 Days #60 tab 06/12/22 carvediloL [Coreg] 6.25 mg PO BID 30 Days #60 tab 06/12/22 Ascorbic Acid [Vitamin C] 1,000 mg PO DAILY 30 Days #60 tab 07/29/22 Pantoprazole [Protonix] 40 mg PO DAILY 30 Days #30 tab 07/29/22 Allergies Allergy/AdvReac Type Severity Reaction Status Date / Time vancomycin Allergy Anaphylaxis Verified 08/12/22 10:01 hydralazine AdvReac Rapid Verified 08/12/22 10:01 Heart Rate WHEN GIVEN THROUGH IV Review of Systems ROS Statement: Those systems with pertinent positive or pertinent negative responses have been documented in the HPI. ROS Other: All systems not noted in ROS Statement are negative. 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 History of Any Multi-Drug Resistant Organisms: None Reported Past Surgical History: Heart Catheterization, Hernia Repair Additional Past Surgical History / Comment(s): 06/14/18 cardiac cath at [facility] to check coronary pressures, 11/15/09 Failed kidney transplant R pelvis, dialysis catheter in and out, current L upper arm AVG, supra pubic hernia repair, transvaginal mesh, wisdom teeth extraction with anesthesia, 2016 failed kidney transplant Past Anesthesia/Blood Transfusion Reactions: No Reported Reaction Additional Past Anesthesia/Blood Transfusion Reaction / Comment(s): Pt has received blood in past without reaction. Past Psychological History: Anxiety, Depression Smoking Status: Never smoker Past Alcohol Use History: None Reported Past Drug Use History: None Reported, Marijuana - Past Family History Father Family Medical History: No Reported History Additional Family Medical History / Comment(s): Father is healthy and is 62 yrs old. Mother Family Medical History: No Reported History Additional Family Medical History / Comment(s): Mother is healthy and is 60 yrs old. General Exam - General Exam Comments Initial Comments: This is a well-developed well-nourished awake alert oriented 4 female Limitations: no limitations General appearance: alert, anxious Head exam: Present: atraumatic, normocephalic, normal inspection Eye exam: Present: normal appearance, PERRL, EOMI. Absent: scleral icterus, conjunctival injection, periorbital swelling ENT exam: Present: normal exam, mucous membranes moist Neck exam: Present: normal inspection, full ROM. Absent: tenderness, meningismus, lymphadenopathy Respiratory exam: Present: normal lung sounds bilaterally. Absent: respiratory distress, wheezes, rales, rhonchi, stridor Cardiovascular Exam: Present: normal rhythm, tachycardia. Absent: systolic murmur, diastolic murmur, rubs, gallop, clicks GI/Abdominal exam: Present: soft, normal bowel sounds. Absent: distended, tenderness, guarding, rebound, rigid Rectal exam: Present: deferred Extremities exam: Present: full ROM, normal capillary refill, other (Dialysis fistula noted in left upper extremity). Absent: tenderness, pedal edema, joint swelling, calf tenderness Back exam: Present: normal inspection Neurological exam: Present: alert, oriented X3, CN II-XII intact Psychiatric exam: Present: normal affect, normal mood Skin exam: Present: warm, dry, intact, normal color. Absent: rash Course Vital Signs 08/12/22 08/12/22 08/12/22 07:54 07:56 08:34 Pulse Rate 152 H 151 H Pulse Rate [ 152 H Dyeing Machine Feeder ] Respiratory 18 18 Rate Blood Pressure 145/104 O2 Sat by Pulse 99 98 Oximetry 08/12/22 08/12/22 08/12/22 08:44 08:53 09:10 Pulse Rate 144 H 133 H 146 H Pulse Rate [ Dyeing Machine Feeder ] Respiratory 18 18 18 Rate Blood Pressure O2 Sat by Pulse 98 98 100 Oximetry 08/12/22 08/12/22 10:33 12:00 Pulse Rate 90 87 Pulse Rate [ Dyeing Machine Feeder ] Respiratory 18 18 Rate Blood Pressure O2 Sat by Pulse 97 98 Oximetry - Reevaluation(s) Reevaluation #1: 08/12/22 12:08 Patient initially did not get much relief with IV Cardizem distal rate down by up to 30 bpm however resumed a higher rate. Patient's chest pain had disappeared. IV Lopressor was used and the heart rate did drop to the 90s. Chest Pain MDM - MDM Imaging interpreted by me no definitive acute processes. Patient presented with tachycardia some chest discomfort. Patient initially had a tachycardic rhythm which was thought to be representing atrial flutter patient was given IV Ca rdizem with equivocal response she did respond however to Lopressor with heart rate dropping down to the 90s will maintain blood pressure. Patient also and did require dialysis Dr. Thompson's dialysis nurse did also see the patient and orders were given for dialysis after improvement of the heart rate. I did discuss case with Dr. barrera patient will be admitted with cardiology consultation Was pt. sent in by a medical professional or institution (KAROLYN Moore, BILINGUAL HR GENERALIST, urgent care, hospital, or prison...) When possible be specific @ Dialysis Center -[No] Did you speak to anyone other than the patient for history (EMS, parent, family, police, friend...)? What history was obtained from this source @ -[No] Did you review nursing and triage notes (agree or disagree)? Why? @ Yes and agree-[I reviewed and agree with nursing and triage notes] Were old charts reviewed (outside hosp., previous admission, EMS record, old EKG, old radiological studies, urgent care reports/EKG's, prison records)? Report findings @ Yes -[No old charts were reviewed] Differential Diagnosis (chest pain, altered mental status, abdominal pain women, abdominal pain men, vaginal bleeding, weakness, fever, dyspnea, syncope, headache, dizziness, GI bleed, back pain, seizure, CVA, palpatations, mental health)? @ Tachyarrhythmia, chest pain secondary to coronary artery disease-[not applicable] EKG interpreted by me (3pts min.). @ Yes by me -[As above] X-rays interpreted by me (1pt min.). @ Yes no definitive acute processes -[None done] CT interpreted by me (1pt min.). @ -[None done] U/S interpreted by me (1pt. min.). @ -[None done] What testing was considered but not performed or refused? (CT, X-rays, U/S, labs)? Why? @ -[None] What meds were considered but not given or refused? Why? @ -[None] Did you discuss the management of the patient with other professionals (professionals i.e. , KAROLYN, BILINGUAL HR GENERALIST, lab, RT, psych nurse, long term care social worker, voltage regulator assembler, teacher, ordnance corps officer, rehabilitation case coordinator)? Give summary @ Dr. Barrera-[No] Was smoking cessation discussed for >3mins.? @ -[No] Was critical care preformed (if so, how long)? @ Yes 39 minutes-[No] Were there social determinants of health that impacted care today? How? (Homelessness, low income, unemployed, alcoholism, drug addiction, transportation, low edu. Level, literacy, decrease access to med. care, [place] [facility], rehab)? @ -[No] Was there de-escalation of care discussed even if they declined (Discuss DNR or withdrawal of care, Hospice)? DNR status @ -[No] What co-morbidities impacted this encounter? (DM, HTN, Smoking, COPD, CAD, Cancer, CVA, ARF, Chemo, Hep., AIDS, mental health diagnosis, sleep apnea, morbid obesity)? @ Chronic renal failure-[None] Was patient admitted / discharged? Hospital course, mention meds given and route, prescriptions, significant lab abnormalities, going to OR and other pertinent info. @ Patient was admitted-[hospital course] Undiagnosed new problem with uncertain prognosis? @ Tachyarrhythmia-[No] Drug Therapy requiring intensive monitoring for toxicity (Heparin, Nitro, Insulin, Cardizem)? @ -[No] Were any procedures done? @ -[No] Diagnosis/symptom? @ Tachyarrhythmia, chest pain, elevated troponin, chronic renal failure- [default] Acute, or Chronic, or Acute on Chronic? @ Acute tachyarrhythmia-[default] Uncomplicated (without systemic symptoms) or Complicated (systemic symptoms)? @ -[default] Side effects of treatment? @ -[No] Exacerbation, Progression, or Severe Exacerbation? @ -[No] Poses a threat to life or bodily function? How? (Chest pain, [place], PR, pneumonia, PE, COPD, DKA, ARF, appy, cholecystitis, CVA, Diverticulitis, Homicidal, Suicidal, threat to staff... and all critical care pts) @ Potentially is not treated-[No] Critical Care Time Critical Care Time: Yes Total Critical Care Time: 39 Critical Care Time: Critical care time including initial presentation with history physical discussed with paramedics upon arrival multiple repeat evaluation the patient to responsive therapy review of old discussed with the admitting physician admission orders documentation the above discussion with Dr. Thompson's service Disposition Clinical Impression: Tachycardia, Chest pain, Chronic renal failure, Elevated troponin Disposition: ADMITTED IP TO THIS [facility] Condition: Fair Referrals: Karo Alicea MD [Primary Care Provider] - 1-2 days Decision Date: 08/12/22 Decision Time: 11:00
[2022-08-12 08:43] LABS: Prothrombin Time 10.6 sec (9.0-12.0)
--- NOTE | 2022-08-12 08:54 | XR ---
EXAMINATION TYPE: XR chest 1V portable DATE OF EXAM: 08/12/2022 8:42 AM COMPARISON: Chest radiographs from 07/21/2022 TECHNIQUE: XR chest 1V portable Portable AP radiograph of the chest. CLINICAL INDICATION:Female, 32 years old with history of dysrhythmia; FINDINGS: Lungs/Pleura: Bibasilar opacities which are new. There is no evidence of pleural effusion, or pneumot horax. Pulmonary vascularity: Pulmonary vascular congestion. Heart/mediastinum: Cardiomediastinal silhouette is enlarged and stable. Musculoskeletal: No acute osseous pathology. IMPRESSION: Cardiomegaly with bilateral lower lung airspace opacities which could represent pulmonary vascular co ngestion versus developing pneumonia.
[2022-08-12 08:57] LABS: Albumin 4.4 g/dL (3.5-5.0); Magnesium 2.1 mg/dL (1.6-2.3); Total Bilirubin 0.9 mg/dL (0.2-1.3); Total Protein 8.1 g/dL (6.3-8.2)
[2022-08-12 09:03] LABS: Potassium 5.2 mmol/L (3.5-5.1)
[2022-08-12] MEDS ORDERED: METOPROLOL TARTRATE 5 MG/5 ML VIAL IVP STA (10:12)
[2022-08-12] MEDS ORDERED: ACETAMINOPHEN TAB 500 MG TAB PO PRN (11:06)
[2022-08-12] MEDS ORDERED: HYDROcodone/APAP 5-325MG 1 EACH TAB PO PRN (11:06)
[2022-08-12] MEDS ORDERED: LIDOCAINE-PRILOCAINE 2.5-2.5% CREAM 5 GM TUBE TOPICAL PRN (11:06)
[2022-08-12] MEDS ORDERED: ALBUTEROL NEBULIZED 2.5 MG/3 ML INHALATION PRN (11:06)
--- NOTE | 2022-08-12 11:24 | P.HPIM ---
History of Present Illness This is a pleasant 52 years old female with past medical history of end-stage renal disease on hemodialysis, hypertension, asthma, chronic anemia and cardiomyopathy nonischemic with ejection fraction 35-40%, anxiety and depression she is Dr. magana patient and see Celia Doe in her office. She was getting hemodialysis today when she is having palpitation and tachycardia with heart rate 150-1 60 bpm. The rhythm was not determined at that time and she was sent to the hospital. In the emergency room she felt Cardizem drip but she responded well to metoprolol 5 mg IV 1 and her hematocrit came down to 90s as per Dr. Edge from emergency room Patient is to show some heartburn earlier and still no obesity/10 in severity but no overt chest pain, no coughing or dyspnea. No diarrhea or vomiting. She does not make urine. No leg pain or swelling or tenderness. She is complaining from pain all over her body. She denies smoking alcohol or illicit drugs and she states that she was taken her home medication Currently heart rate is 90 patient is afebrile and distal vitals stable. Blood pressure 145/104 on admission. CBC, BMP and liver enzymes were unremarkable. Creatinine is found to be elevated. Current troponin is 0.09, usually eats elevated 0.04-0.06 Chest x-ray showing cardiomegaly with bilateral lower lung airspace opacity which could represent pulmonary vascular congestion versus developing pneumonia No EKG was noted in the system Review of Systems Review of systems CONSTITUTIONAL: No fever, no malaise, no fatigue. HEENT: No recent visual problems or hearing problems. Denied any sore throat. CARDIOVASCULAR: No orthopnea, PND, no palpitations, no syncope. PULMONARY: No shortness of breath, no cough, no hemoptysis. GASTROINTESTINAL: No diarrhea, no nausea, no vomiting, no abdominal pain. Normoactive bowel sounds. NEUROLOGICAL: No headaches, no weakness, no numbness. HEMATOLOGICAL: Denies any bleeding or petechiae. -GENITOURINARY: pt is not making urine MUSCULOSKELETAL/RHEUMATOLOGICAL: Denies any joint pain, swelling, or any muscle pain. ENDOCRINE: Denies any polyuria or polydipsia. 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 History of Any Multi-Drug Resistant Organisms: None Reported Past Surgical History: Heart Catheterization, Hernia Repair Additional Past Surgical History / Comment(s): 06/14/18 cardiac cath at [facility] to check coronary pressures, 11/15/09 Failed kidney transplant R pelvis, dialysis catheter in and out, current L upper arm AVG, supra pubic hernia repair, transvaginal mesh, wisdom teeth extraction with anesthesia, 2016 failed kidney transplant Past Anesthesia/Blood Transfusion Reactions: No Reported Reaction Additional Past Anesthesia/Blood Transfusion Reaction / Comment(s): Pt has received blood in past without reaction. Past Psychological History: Anxiety, Depression Smoking Status: Never smoker Past Alcohol Use History: None Reported Past Drug Use History: None Reported, Marijuana - Past Family History Father Family Medical History: No Reported History Additional Family Medical History / Comment(s): Father is healthy and is 62 yrs old. Mother Family Medical History: No Reported History Additional Family Medical History / Comment(s): Mother is healthy and is 60 yrs old. Medications and Allergies Home Medications Medication Instructions Recorded Confirmed Type Albuterol Sulfate [Proair Hfa] 2 puff INHALATION RT-Q6H PRN 01/22/16 08/12/22 History hydrALAZINE HCL [Apresoline] 100 mg PO TID 11/16/18 08/12/22 History Cinacalcet HCl [Sensipar] 120 mg PO MOWEFR 02/26/19 08/12/22 History Calcium Acetate [PhosLo] 2,668 mg PO TID-W/MEALS 05/01/20 08/12/22 History Lidocaine-Prilocaine Cream [Emla 1 applic TOPICAL DAILY PRN 05/01/20 08/12/22 History Cream 2.5%/2.5%] calcitrioL [Calcitriol] 3 mcg PO MOWEFR 10/29/21 08/12/22 History cloNIDine HCL [Catapres] 0.3 mg PO TID 10/29/21 08/12/22 History hydrOXYzine HCL [Atarax] 25 mg PO TID PRN 10/29/21 08/12/22 History Acetaminophen Tab [Tylenol] 1,000 mg PO Q6HR PRN 05/26/22 08/12/22 History Calcium Acetate [PhosLo] 667 - 1,334 mg PO BID PRN 05/26/22 08/12/22 History Isosorbide Mononitrate ER [Imdur] 30 mg PO DAILY 30 Days #30 tab 06/12/22 Rx NIFEdipine XL [Procardia XL] 60 mg PO Q12HR 30 Days #60 tab 06/12/22 08/12/22 Rx carvediloL [Coreg] 6.25 mg PO BID 30 Days #60 tab 06/12/22 08/12/22 Rx Ascorbic Acid [Vitamin C] 1,000 mg PO DAILY 30 Days #60 tab 07/29/22 08/12/22 Rx Pantoprazole [Protonix] 40 mg PO DAILY 30 Days #30 tab 07/29/22 08/12/22 Rx HYDROcodone/APAP 5-325MG [[place] 1 tab PO Q6HR PRN 08/12/22 08/12/22 History 5-325] Allergies Allergy/AdvReac Type Severity Reaction Status Date / Time vancomycin Allergy Anaphylaxis Verified 08/12/22 10:01 hydralazine AdvReac Rapid Verified 08/12/22 10:01 Heart Rate WHEN GIVEN THROUGH IV Physical Exam Vitals: Vital Signs Pulse Pulse Resp BP Pulse Ox 08/12/22 10:33 90 18 97 08/12/22 09:10 146 H 18 100 08/12/22 08:53 133 H 18 98 08/12/22 08:44 144 H 18 98 08/12/22 08:34 151 H 18 98 08/12/22 07:56 152 H 08/12/22 07:54 152 H 18 145/104 99 Intake and Output 08/11/22 08/12/22 08/12/22 22:59 06:59 14:59 Intake Total 2.833 Balance 2.833 Intake: Intake, IV Titration 2.833 Amount Diltiazem 125 mg In 2.833 Sodium Chloride 0.9% 100 ml @ 5 MG/HR 5 mls/hr IV .Q24H [facility] Rx#:[id number] Other: Weight 60 kg GENERAL: The patient is alert and oriented x3, not in any acute distress. Well developed, well nourished. HEENT: Pupils are round and equally reacting to light. EOMI. No scleral icterus. No conjunctival pallor. Normocephalic, atraumatic. No pharyngeal erythema. No thyromegaly. CARDIOVASCULAR: S1 and S2 present. No murmurs, rubs, or gallops. PULMONARY: Chest is clear to auscultation, no wheezing or crackles. ABDOMEN: Soft, nontender, nondistended, normoactive bowel sounds. No palpable organomegaly. MUSCULOSKELETAL: No joint swelling or deformity. EXTREMITIES: No cyanosis, clubbing, or pedal edema. NEUROLOGICAL: Gross neurological examination did not reveal any focal deficits. SKIN: No rashes. no petechiae. Results CBC & Chem 7: 08/12/22 08:16 08/12/22 08:16 Labs: Abnormal Lab Results - Last 24 Hours (Table) 08/12/22 08/12/22 08/12/22 Range/Units 08:16 08:16 08:16 RDW 21.3 H (11.5-15.5) % APTT 43.0 H (22.0-30.0) sec Sodium 136 L (137-145) mmol/L Potassium 5.2 H (3.5-5.1) mmol/L BUN 54 H (7-17) mg/dL Creatinine 10.69 H* (0.52-1.04) mg/dL Calcium 8.0 L (8.4-10.2) mg/dL Troponin I (0.000-0.034) ng/mL 08/12/22 Range/Units 08:16 RDW (11.5-15.5) % APTT (22.0-30.0) sec Sodium (137-145) mmol/L Potassium (3.5-5.1) mmol/L BUN (7-17) mg/dL Creatinine (0.52-1.04) mg/dL Calcium (8.4-10.2) mg/dL Troponin I 0.099 H* (0.000-0.034) ng/mL Assessment and Plan Assessment: Palpitation with tachycardia Acute systolic CHF with ejection fraction 35-40%, pneumonia, being entirely exclude it, but patient is afebrile with no leukocytosis Elevated troponin, rule out cardiac causes versus secondary to renal disease End-stage renal disease on hemodialysis Hypertension, uncontrolled on admission Asthma, not active tissue History of Chronic anemia History of anxiety and depression, not an active issue Plan: This is a pleasant 32 years old female who presents with CHF review of her end- stage renal disease Continue with hemodialysis. per recommendation of [employer] Cardiology consult Telemetry Patient was on Coreg, and clonidine follow-up with rehabilitation case coordinator regarding further recommendation Resume her antihypertensive of clonidine, hydralazine, nifedipine Check pro-calcitonin Check versus Labs and medication were reviewed.. Continue same treatment. Continue with symptomatic treatment. Resume home medication. Monitor lytes and vitals. DVT and GI prophylaxis. Further recommendations depends on the clinical course of the patient DVT prophylaxis: Subcutaneous heparin GI Prophylaxis: Ppi Prognosis is guarded
--- NOTE | 2022-08-12 11:45 | P.NPCON ---
History of Present Illness - Reason for Consult end stage renal disease - History of Present Illness Reason for consultation: End-stage renal disease History of present illness: Patient is a 32-year-old female seen in consultation for end-stage renal disease. Patient was seen and examined in the emergency room. She is maintained on hemodialysis on Wednesday schedule. Patient states she went to hemodialysis this morning. Patient's heart rate was near 100 but got as high as 130s to 140s when dialysis was started. Patient states she could feel pounding in her chest. Treatment was immediately stopped and patient was sent to the hospital. Patient was noted to be in A. fib and is currently maintained on Cardizem drip. She also received Lopressor. Heart rate is now better controlled. Blood pressure is stable. Denies chest pain or shortness of breath now. Oral intake is fair. No fever or chills. Patient did develop COVID-19 infection in end of July 2022. No history of diabetes. Patient does have history of CHF with ejection fraction of 50% with severe pulmonary h ypertension, mild to moderate mitral regurgitation and moderate aortic insufficiency. Vital signs are stable. General: Awake. No acute distress. HEENT: Head exam is unremarkable. LUNGS: Breath sounds decreased. HEART: Irregular rate and rhythm. ABDOMEN: Soft, no distention. EXTREMITITES: Trace edema. 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 History of Any Multi-Drug Resistant Organisms: None Reported Past Surgical History: Heart Catheterization, Hernia Repair Additional Past Surgical History / Comment(s): 06/14/18 cardiac cath at [facility] to check coronary pressures, 11/15/09 Failed kidney transplant R pelvis, dialysis catheter in and out, current L upper arm AVG, supra pubic hernia repair, transvaginal mesh, wisdom teeth extraction with anesthesia, 2016 failed kidney transplant Past Anesthesia/Blood Transfusion Reactions: No Reported Reaction Additional Past Anesthesia/Blood Transfusion Reaction / Comment(s): Pt has received blood in past without reaction. Past Psychological History: Anxiety, Depression Smoking Status: Never smoker Past Alcohol Use History: None Reported Past Drug Use History: None Reported, Marijuana - Past Family History Father Family Medical History: No Reported History Additional Family Medical History / Comment(s): Father is healthy and is 62 yrs old. Mother Family Medical History: No Reported History Additional Family Medical History / Comment(s): Mother is healthy and is 60 yrs old. Medications and Allergies Home Medications Medication Instructions Recorded Confirmed Type Albuterol Sulfate [Proair Hfa] 2 puff INHALATION RT-Q6H PRN 01/22/16 08/12/22 History hydrALAZINE HCL [Apresoline] 100 mg PO TID 11/16/18 08/12/22 History Cinacalcet HCl [Sensipar] 120 mg PO MOWEFR 02/26/19 08/12/22 History Calcium Acetate [PhosLo] 2,668 mg PO TID-W/MEALS 05/01/20 08/12/22 History Lidocaine-Prilocaine Cream [Emla 1 applic TOPICAL DAILY PRN 05/01/20 08/12/22 History Cream 2.5%/2.5%] calcitrioL [Calcitriol] 3 mcg PO MOWEFR 10/29/21 08/12/22 History cloNIDine HCL [Catapres] 0.3 mg PO TID 10/29/21 08/12/22 History hydrOXYzine HCL [Atarax] 25 mg PO TID PRN 10/29/21 08/12/22 History Acetaminophen Tab [Tylenol] 1,000 mg PO Q6HR PRN 05/26/22 08/12/22 History Calcium Acetate [PhosLo] 667 - 1,334 mg PO BID PRN 05/26/22 08/12/22 History Isosorbide Mononitrate ER [Imdur] 30 mg PO DAILY 30 Days #30 tab 06/12/22 08/12/22 Rx NIFEdipine XL [Procardia XL] 60 mg PO Q12HR 30 Days #60 tab 06/12/22 08/12/22 Rx carvediloL [Coreg] 6.25 mg PO BID 30 Days #60 tab 06/12/22 08/12/22 Rx Ascorbic Acid [Vitamin C] 1,000 mg PO DAILY 30 Days #60 tab 07/29/22 08/12/22 Rx Pantoprazole [Protonix] 40 mg PO DAILY 30 Days #30 tab 07/29/22 08/12/22 Rx HYDROcodone/APAP 5-325MG [[place] 1 tab PO Q6HR PRN 08/12/22 08/12/22 History 5-325] Allergies Allergy/AdvReac Type Severity Reaction Status Date / Time vancomycin Allergy Anaphylaxis Verified 08/12/22 10:01 hydralazine AdvReac Rapid Verified 08/12/22 10:01 Heart Rate WHEN GIVEN THROUGH IV Physical Exam Vitals: Vital Signs Pulse Pulse Resp BP Pulse Ox 08/12/22 10:33 90 18 97 08/12/22 09:10 146 H 18 100 08/12/22 08:53 133 H 18 98 08/12/22 08:44 144 H 18 98 08/12/22 08:34 151 H 18 98 08/12/22 07:56 152 H 08/12/22 07:54 152 H 18 145/104 99 Intake and Output 08/11/22 08/12/22 08/12/22 22:59 06:59 14:59 Intake Total 2.833 Balance 2.833 Intake: Intake, IV Titration 2.833 Amount Diltiazem 125 mg In 2.833 Sodium Chloride 0.9% 100 ml @ 5 MG/HR 5 mls/hr IV .Q24H [facility] Rx#:[id number] Other: Weight 60 kg Results - Lab Results Most recent lab results Calcium 8.0 mg/dL (8.4-10.2) L 08/12/22 08:16 Magnesium 2.1 mg/dL (1.6-2.3) 08/12/22 08:16 08/12/22 08:16 08/12/22 08:16 Assessment and Plan Plan: Assessment: 1. End-stage renal disease maintained on hemodialysis on Wednesday schedule. 2. A. fib with RVR maintain on Cardizem drip. Cardiology following. 3. Chronic diastolic CHF with moderate aortic insufficiency, mild to moderate mitral regurgitation and severe pulmonary hypertension. 4. Hypertension with chronic kidney disease. 5. Chronic kidney disease mineral bone disease maintained on Sensipar, gracie citriol and phosphate binders. Plan: Hemodialysis today. Check phosphorus level. Home antihypertensives resumed. Thank you for the consultation. I will continue to follow the patient with you during her hospital stay.
[2022-08-12] MEDS ORDERED: NALOXONE 0.4 MG/ML 1 ML VIAL IV PRN (14:22)
[2022-08-12] MEDS ORDERED: CINACALCET 30 MG TAB PO SCH (16:00)
[2022-08-12] MEDS: cloNIDine HCL 0.1 MG TAB PO SCH (17:10)
[2022-08-12] MEDS: hydrALAZINE HCL 50 MG TAB PO SCH ×2 (17:10→21:13)
[2022-08-12] MEDS: carvediloL 6.25 MG TAB PO SCH (17:10)
[2022-08-12] MEDS: NITROGLYCERIN SL TABS 0.4 MG TAB SUBLINGUAL PRN ×2 (18:20→18:26)
[2022-08-12] MEDS: NITROGLYCERIN OINT 1 INCH/GM PACKET TOPICAL SCH (19:03)
[2022-08-12] MEDS ORDERED: ONDANSETRON 4 MG/2 ML VIAL IVP PRN (22:21)
[2022-08-13] MEDS: cloNIDine HCL 0.1 MG TAB PO SCH ×2 (00:42→08:05)
[2022-08-13] MEDS: NITROGLYCERIN OINT 1 INCH/GM PACKET TOPICAL SCH ×2 (00:43→06:52)
[2022-08-13] MEDS ORDERED: PANTOPRAZOLE 40 MG TABLET PO SCH (07:30)
[2022-08-13] MEDS ORDERED: PIPERACILLIN-TAZOBACTAM 3.375 GM in SODIUM CHLORIDE 0.9% 100 ML IVPB SCH ×2 (08:00→21:00)
[2022-08-13] MEDS: HEPARIN SODIUM,PORCINE/PF 5,000 UNIT/0.5 ML SYRINGE SQ SCH ×2 (08:05→08:19)
[2022-08-13] MEDS: carvediloL 6.25 MG TAB PO SCH (08:05)
[2022-08-13] MEDS: hydrALAZINE HCL 50 MG TAB PO SCH ×2 (08:09→12:29)
[2022-08-13 08:32] VITALS: RESP 16
[2022-08-13] MEDS ORDERED: ISOSORBIDE MONONITRATE ER 30 MG TAB.ER.24H PO SCH (09:00)
--- NOTE | 2022-08-13 10:45 | P.PN ---
Subjective This is a pleasant 52 years old female with past medical history of end-stage renal disease on hemodialysis, hypertension, asthma, chronic anemia and cardiomyopathy nonischemic with ejection fraction 35-40%, anxiety and depression she is Dr. magana patient and see Celia Doe in her office. She was getting hemodialysis today when she is having palpitation and tachycardia with heart rate 150-1 60 bpm. The rhythm was not determined at that time and she was sent to the hospital. In the emergency room she felt Cardizem drip but she responded well to metoprolol 5 mg IV 1 and her hematocrit came down to 90s as per Dr. Edge from emergency room Patient is to show some heartburn earlier and still no obesity/10 in severity but no overt chest pain, no coughing or dyspnea. No diarrhea or vomiting. She does not make urine. No leg pain or swelling or tenderness. She is complaining from pain all over her body. She denies smoking alcohol or illicit drugs and she states that she was taken her home medication Currently heart rate is 90 patient is afebrile and distal vitals stable. Blood pressure 145/104 on admission. CBC, BMP and liver enzymes were unremarkable. Creatinine is found to be elevated. Current troponin is 0.09, usually eats elevated 0.04-0.06 Chest x-ray showing cardiomegaly with bilateral lower lung airspace opacity whi ch could represent pulmonary vascular congestion versus developing pneumonia No EKG was noted in the system 08/13/2022 Patient today lying in bed comfortable, she denies any symptom, no chest pain or dyspnea. Her tachycardia looks better. Chest x-ray showing bilateral infiltrates suspicious for fluid versus pneumonia Patient was started on Zosyn. Priorcalcitonin is somewhat elevated 0.49. Patient currently on Zosyn. Cardiology and infectious disease consult on the case Objective - Vital Signs Vital signs: Vital Signs Temp 98.3 F 08/13/22 08:00 Pulse 74 08/13/22 08:00 Resp 16 08/13/22 08:00 BP 139/88 08/13/22 08:00 Pulse Ox 99 08/13/22 08:00 FiO2 Intake & Output 08/12/22 08/13/22 08/13/22 18:59 06:59 18:59 Intake Total 420.833 Output Total 2534 Balance -2113.167 Weight 60 kg 57.7 kg Intake: Intake, IV Titration 2.833 Amount Diltiazem 125 mg In 2.833 Sodium Chloride 0.9% 100 ml @ 5 MG/HR 5 mls/hr IV .Q24H [facility] Rx#:[id number] Oral 118 Hemodialysis 300 Output: Hemodialysis 2534 Other: # Voids 1 - Exam GENERAL: The patient is alert and oriented x3, not in any acute distress. Well developed, well nourished. HEENT: Pupils are round and equally reacting to light. EOMI. No scleral icterus. No conjunctival pallor. Normocephalic, atraumatic. No pharyngeal erythema. No thyromegaly. CARDIOVASCULAR: S1 and S2 present. No murmurs, rubs, or gallops. PULMONARY: Chest is clear to auscultation, no wheezing or crackles. ABDOMEN: Soft, nontender, nondistended, normoactive bowel sounds. No palpable organomegaly. MUSCULOSKELETAL: No joint swelling or deformity. -EXTREMITIES: No cyanosis, clubbing, or pedal edema. Left upper extremity f istula working NEUROLOGICAL: Gross neurological examination did not reveal any focal deficits. SKIN: No rashes. no petechiae. - Labs CBC & Chem 7: 08/12/22 08:16 08/12/22 08:16 Labs: Abnormal Lab Results - Last 24 Hours (Table) 08/12/22 08/12/22 08/12/22 Range/Units 11:17 11:53 18:16 Phosphorus 4.6 H (2.5-4.5) mg/dL Troponin I 0.139 H* (0.000-0.034) ng/mL Procalcitonin 0.49 H (0.02-0.09) ng/mL 08/12/22 Range/Units 21:13 Phosphorus (2.5-4.5) mg/dL Troponin I 0.122 H* (0.000-0.034) ng/mL Procalcitonin (0.02-0.09) ng/mL Assessment and Plan Assessment: Palpitation with tachycardia, with improvement Acute systolic CHF with ejection fraction 35-40%, Possible bilateral lower lobe pneumonia, pro-calcitonin is mildly elevated, however patient is afebrile with no leukocytosis Elevated troponin, rule out cardiac causes versus secondary to renal disease End-stage renal disease on hemodialysis Hypertension, uncontrolled on admission Asthma, not active tissue History of Chronic anemia History of anxiety and depression, not an active issue Plan: Continue with Zosyn, infectious disease consult This is a pleasant 32 years old female who presents with CHF review of her end- stage renal disease Continue with hemodialysis. per recommendation of [employer] Cardiology consult Telemetry Resume her antihypertensive of clonidine, hydralazine, nifedipine , Coreg Labs and medication were reviewed.. Continue same treatment. Continue with symptomatic treatment. Resume home medication. Monitor lytes and vitals. DVT and GI prophylaxis. Further recommendations depends on the clinical course of the patient DVT prophylaxis: Subcutaneous heparin GI Prophylaxis: Ppi Prognosis is guarded
--- NOTE | 2022-08-13 10:55 | P.CRDCN ---
History of Present Illness Consult date: 08/13/22 History of present illness: HISTORY OF PRESENT ILLNESS: This is a 32-year-old female with a past medical history significant for end- stage renal disease on hemodialysis Wednesday, polycystic kidney disease, previous kidney transplant with rejection, history of cardiac myopathy with improved EF, congestive heart failure, and pulmonary hypertension. Patient follows in the office with Dr. Larios but has not been seen since October 2021. We have been asked to see the patient in consultation for tachyarrhythmia. Patient examined at the bedside. Patient states she was receiving dialysis yesterday when she began having palpitations. The patient's heart rate was noted to be 150. She was brought to the emergency room for further evaluation. EKG reveals atrial tachycardia. The patient was given IV push Lopressor. She is currently maintaining sinus mechanism. She denies shortness of breath. She denies chest pain or pressure. Vital signs are stable. * EKG reveals atrial tachycardia * Chest xray cardiomegaly with bilateral lower lung airspace opacities which could represent pulmonary vascular congestion versus developing pneumonia * Laboratory data: WBC 6.9. Hemoglobin 11.6. Platelet count 198. Sodium 136. Potassium 5.2. BUN 57. Creatinine 10.69. Troponin 0.099. 0.139. 0.122. * Current home cardiac medications include Imdur 30 mg daily, Procardia 60 mg every 12 hours, carvedilol 6.25 mg twice a day, Catapres 0.3 mg 3 times a day, hydralazine 100 mg 3 times a day * Most recent echocardiogram obtained in June 2022 revealed ejection fraction 50%, severe pulmonary hypertension, [id number] mitral regur gitation REVIEW OF SYSTEMS: At the time of my exam: CONSTITUTIONAL: Denies fever or chills. HEENT: Denies blurred vision, vision changes, or eye pain. Denies hemoptysis CARDIOVASCULAR: Denies chest pain. Denies orthopnea. Denies PND. Denies palpitations RESPIRATORY: Denies shortness of breath. GASTROINTESTINAL: Denies abdominal pain. Denies nausea or vomiting. HEMATOLOGIC: Denies bleeding disorders. GENITOURINARY: Denies any blood in urine. SKIN: Denies pruitis. Denies rash. PHYSICAL EXAM: VITAL SIGNS: Reviewed. GENERAL: Well-developed in no acute distress. HEENT: Head is normocephalic. Pupils are equal, round. Sclerae anicteric. Mucous membranes of the mouth are moist. Neck supple. No JVD or thyromegaly LUNGS: Respirations even and unlabored. Lungs essentially clear to auscultation bilaterally. HEART: Regular rate and rhythm. S1 and S2 heard. ABDOMEN: Soft. Nondistended. Nontender. EXTREMITIES: Normal range of motion. No clubbing or cyanosis. Peripheral pulses intact. No lower extremity edema NEUROLOGIC: Awake and alert. Oriented x 3. ASSESSMENT: Palpitations Atrial tachycardia Hypertension End-stage renal disease on hemodialysis Abnormal troponins, secondary to end-stage renal disease, no evidence of acute coronary syndrome History of previous kidney transplant with rejection Valvular heart disease Pulmonary hypertension Chronic congestive heart failure with preserved ejection fraction, currently euvolemic PLAN: No need to repeat echocardiogram as this was performed in June 2022 Increase carvedilol to 12.5 mg twice a day Continue additional home cardiac medications Patient is currently stable from a cardiac standpoint Further recommendations pending patient's course Nurse practitioner note has been reviewed by physician. Signing provider agrees with the documented findings, assessment, and plan of care. 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 History of Any Multi-Drug Resistant Organisms: None Reported Past Surgical History: Heart Catheterization, Hernia Repair Additional Past Surgical History / Comment(s): 06/14/18 cardiac cath at [facility] to check coronary pressures, 11/15/09 Failed kidney transplant R pelvis, dialysis catheter in and out, current L upper arm AVG, supra pubic hernia repair, transvaginal mesh, wisdom teeth extraction with anesthesia, 2016 failed kidney transplant Past Anesthesia/Blood Transfusion Reactions: No Reported Reaction Additional Past Anesthesia/Blood Transfusion Reaction / Comment(s): Pt has rec eived blood in past without reaction. Past Psychological History: Anxiety, Depression Additional Psychological History / Comment(s): Pt resides with family. She is independent. She drives. She is disabled. She states she has anxiety and depression but no suicidal thoughts/ idealations or plans. Smoking Status: Never smoker Past Alcohol Use History: None Reported Additional Past Alcohol Use History / Comment(s): Pt states she started smoking socially as a teen and quit smoking in 2016. Past Drug Use History: None Reported, Marijuana Additional Drug Use History / Comment(s): Couple times a week. - Past Family History Father Family Medical History: No Reported History Additional Family Medical History / Comment(s): Father is healthy and is 62 yrs old. Mother Family Medical History: No Reported History Additional Family Medical History / Comment(s): Mother is healthy and is 60 yrs old. Medications and Allergies Home Medications Medication Instructions Recorded Confirmed Type Albuterol Sulfate [Proair Hfa] 2 puff INHALATION RT-Q6H PRN 01/22/16 08/12/22 History hydrALAZINE HCL [Apresoline] 100 mg PO TID 11/16/18 08/12/22 History Cinacalcet HCl [Sensipar] 120 mg PO MOWEFR 02/26/19 08/12/22 History Calcium Acetate [PhosLo] 2,668 mg PO TID-W/MEALS 05/01/20 08/12/22 History Lidocaine-Prilocaine Cream [Emla 1 applic TOPICAL DAILY PRN 05/01/20 08/12/22 History Cream 2.5%/2.5%] calcitrioL [Calcitriol] 3 mcg PO MOWEFR 10/29/21 08/12/22 History cloNIDine HCL [Catapres] 0.3 mg PO TID 10/29/21 08/12/22 History hydrOXYzine HCL [Atarax] 25 mg PO TID PRN 10/29/21 08/12/22 History Acetaminophen Tab [Tylenol] 1,000 mg PO Q6HR PRN 05/26/22 08/12/22 History Calcium Acetate [PhosLo] 667 - 1,334 mg PO BID PRN 05/26/22 08/12/22 History Isosorbide Mononitrate ER [Imdur] 30 mg PO DAILY 30 Days #30 tab 06/12/22 08/12/22 Rx NIFEdipine XL [Procardia XL] 60 mg PO Q12HR 30 Days #60 tab 06/12/22 08/12/22 Rx carvediloL [Coreg] 6.25 mg PO BID 30 Days #60 tab 06/12/22 08/12/22 Rx Ascorbic Acid [Vitamin C] 1,000 mg PO DAILY 30 Days #60 tab 07/29/22 08/12/22 Rx Pantoprazole [Protonix] 40 mg PO DAILY 30 Days #30 tab 07/29/22 08/12/22 Rx HYDROcodone/APAP 5-325MG [[place] 1 tab PO Q6HR PRN 08/12/22 08/12/22 History 5-325] Allergies Allergy/AdvReac Type Severity Reaction Status Date / Time vancomycin Allergy Anaphylaxis Verified 08/12/22 10:01 hydralazine AdvReac Rapid Verified 08/12/22 10:01 Heart Rate WHEN GIVEN THROUGH IV Physical Exam Vitals: Vital Signs Temp Pulse Pulse Resp BP BP Pulse Ox 08/13/22 08:00 98.3 F 74 16 139/88 99 08/13/22 04:00 97.9 F 76 14 137/89 99 08/13/22 00:00 98.1 F 76 14 133/86 99 08/12/22 20:00 97.7 F 74 14 128/79 99 08/12/22 15:46 98.7 F 93 16 144/84 98 08/12/22 15:18 97.7 F 100 16 132/79 08/12/22 13:00 87 18 121/80 08/12/22 12:50 86 17 123/88 08/12/22 12:40 84 20 130/86 08/12/22 12:30 91 16 124/87 08/12/22 12:20 89 16 124/87 08/12/22 12:10 89 18 132/87 08/12/22 12:00 94 22 120/84 98 08/12/22 11:50 105 H 19 120/84 08/12/22 11:40 95 17 127/91 08/12/22 11:30 94 18 127/91 08/12/22 11:20 93 18 99 08/12/22 11:10 95 19 100 08/12/22 11:00 96 22 08/12/22 10:50 93 19 95 Intake and Output 08/12/22 08/13/22 08/13/22 22:59 06:59 14:59 Intake Total 418 Output Total 2534 Balance -2115 Intake: Oral 118 Hemodialysis 300 Output: Hemodialysis 2534 Other: # Voids 1 1 Weight 60 kg 57.7 kg Results 08/12/22 08:16 08/12/22 08:16 Cardiac Enzymes 08/12/22 08/12/22 Range/Units 18:16 21:13 Troponin I 0.139 H* 0.122 H* (0.000-0.034) ng/mL Current Medications Generic Name Dose Route Start Last Admin Trade Name Freq PRN Reason Stop Dose Admin Acetaminophen 1,000 mg 08/12/22 11:06 Acetaminophen Tab 500 Mg Tab PO Q6HR PRN Pain or Fever > 100.5 Hydrocodone Bitart/Acetaminophen 1 each 08/12/22 11:06 08/12/22 17:12 Hydrocodone/Apap 5-325mg 1 Each Tab PO 1 each Q6HR PRN Administration Pain Albuterol Sulfate 2.5 mg 08/12/22 11:06 Albuterol Nebulized 2.5 Mg/3 Ml INHALATION RT-Q6H PRN Shortness Of Breath Calcitriol 3 mcg 08/12/22 16:00 08/12/22 18:25 Calcitriol 0.25 Mcg Cap PO 3 mcg [id number] SELENE Administration Carvedilol 6.25 mg 08/12/22 17:30 08/13/22 08:05 Carvedilol 6.25 Mg Tab PO 6.25 mg AC-BID SELENE Administration Cinacalcet 120 mg 08/12/22 16:00 08/12/22 17:11 Cinacalcet 30 Mg Tab PO 120 mg [id number] SELENE Administration Clonidine 0.3 mg 08/12/22 16:00 08/13/22 08:05 Clonidine Hcl 0.1 Mg Tab PO 0.3 mg TID SELENE Administration Heparin Sodium (Porcine) 5,000 unit 08/13/22 09:00 08/13/22 08:19 Heparin Sodium,Porcine/Pf 5,000 Unit/0.5 Ml Syringe SQ Not Given Q12HR SELENE Hydralazine HCl 100 mg 08/12/22 16:00 08/12/22 21:13 Hydralazine Hcl 50 Mg Tab PO Not Given TID SELENE Piperacillin Sod/Tazobactam 100 mls @ 25 mls/hr 08/13/22 08:00 08/13/22 08:05 Sod 3.375 gm/ Sodium Chloride IVPB 25 mls/hr Q8HR SELENE Administration Protocol Isosorbide Mononitrate 30 mg 08/13/22 09:00 08/13/22 08:05 Isosorbide Mononitrate Er 30 Mg Tab.Er.24h PO 30 mg DAILY SELENE Administration Lidocaine/Prilocaine 1 applic 08/12/22 11:06 Lidocaine-Prilocaine 2.5-2.5% Cream 5 Gm Tube TOPICAL DAILY PRN PORT ACCESS Protocol Naloxone HCl 0.2 mg 08/12/22 14:22 Naloxone 0.4 Mg/Ml 1 Ml Vial IV Q2M PRN Opioid Reversal Nifedipine 60 mg 08/12/22 21:00 08/13/22 08:06 Nifedipine Xl 60 Mg Tab.Er.24 PO 60 mg Q12HR SELENE Administration Nitroglycerin 0.4 mg 08/12/22 18:11 08/12/22 18:26 Nitroglycerin Sl Tabs 0.4 Mg Tab SUBLINGUAL 0.4 mg Q5M PRN Administration Chest Pain Nitroglycerin 1 inch 08/12/22 19:00 08/13/22 06:52 Nitroglycerin Oint 1 Inch/Gm Packet TOPICAL Not Given Q6HR [facility] Ondansetron HCl 4 mg 08/12/22 22:21 Ondansetron 4 Mg/2 Ml Vial IVP Q6HR PRN Nausea And Vomiting Pantoprazole Sodium 40 mg 08/13/22 07:30 08/13/22 06:54 Pantoprazole 40 Mg Tablet PO 40 mg [id number]-[id number] [facility] Administration Intake and Output 08/12/22 08/13/22 08/13/22 22:59 06:59 14:59 Intake Total 418 Output Total 2534 Balance -2116 Intake: Oral 118 Hemodialysis 300 Output: Hemodialysis 2534 Other: # Voids 1 1 Weight 60 kg 57.7 kg 08/12/22 08:16 08/12/22 08:16
--- NOTE | 2022-08-13 11:10 | P.PN ---
Subjective Patient is seen in follow-up for end-stage renal disease. She is maintained on hemodialysis on Wednesday schedule. Tolerated 2.5 L u ltrafiltration yesterday. Heart rate controlled. No chest pain or shortness of breath. On room air. Vital signs are stable. General: Awake. No acute distress. HEENT: Head exam is unremarkable. LUNGS: Breath sounds decreased. HEART: Rate and Rhythm are regular. ABDOMEN: Soft, no distention. EXTREMITITES: No edema. Objective - Vital Signs Vital signs: Vital Signs Temp 98.3 F 08/13/22 08:00 Pulse 74 08/13/22 08:00 Resp 16 08/13/22 08:00 BP 139/88 08/13/22 08:00 Pulse Ox 99 08/13/22 08:00 FiO2 Intake & Output 08/12/22 08/13/22 08/13/22 18:59 06:59 18:59 Intake Total 420.833 Output Total 2534 Balance -2113.167 Weight 60 kg 57.7 kg Intake: Intake, IV Titration 2.833 Amount Diltiazem 125 mg In 2.833 Sodium Chloride 0.9% 100 ml @ 5 MG/HR 5 mls/hr IV .Q24H [facility] Rx#:[id number] Oral 118 Hemodialysis 300 Output: Hemodialysis 2534 Other: # Voids 1 - Labs CBC & Chem 7: 08/12/22 08:16 08/12/22 08:16 Labs: Abnormal Lab Results - Last 24 Hours (Table) 08/12/22 08/12/22 08/12/22 Range/Units 11:17 11:53 18:16 Phosphorus 4.6 H (2.5-4.5) mg/dL Troponin I 0.139 H* (0.000-0.034) ng/mL Procalcitonin 0.49 H (0.02-0.09) ng/mL 08/12/22 Range/Units 21:13 Phosphorus (2.5-4.5) mg/dL Troponin I 0.122 H* (0.000-0.034) ng/mL Procalcitonin (0.02-0.09) ng/mL Assessment and Plan Plan: Assessment: 1. End-stage renal disease maintained on hemodialysis on Wednesday schedule. 2. A. fib with RVR maintain on Coreg. Cardiology following. 3. Chronic diastolic CHF with moderate aortic insufficiency, mild to moderate mitral regurgitation and severe pulmonary hypertension. 4. Hypertension with chronic kidney disease. Stable. 5. Chronic kidney disease mineral bone disease maintained on Sensipar, calcitriol and phosphate binders. Plan: Hemodialysis tomorrow. Phosphorus 4.6 this admission.
[2022-08-13 12:32] VITALS: BP 128/72; PULSE 73; TEMP 98.4
--- NOTE | 2022-08-13 12:41 | CDI ---
Documentation Clarification Form Date: 08/13/2022 11:47:00 AM From: Sandra Hunter RN, CCDS Admit Date: 08/12/2022 2:22:00 PM Patient Name: Rosi Winslow Visit Number: [id number] Discharge Date: ATTENTION: The Clinical Documentation Specialists (CDI) and [facility] Coding Staff appreciate your assistance in clarifying documentation. Please respond to the clarification below the line at the bottom and electronically sign. The CDI & [facility] Coding staff will review the response and follow-up if needed. Please note: Queries are made part of the Legal Health Record. If you have any questions, please contact the author of this message via ITS. Dr. Joiner Sheet Conflicting documentation has been found in the medical record. As attending physician, please provide clarification. 06/10/2022 ECHO: Low-normal left ventricular systolic function was EF around 50 %. Moderate concentric LVH 08/12 H/P and subsequent progress notes has acute systolic CHF with ejection fraction 35-40 % 08/13Cardiology Consult: Most recent echocardiogram obtained in June 2022 reveled fraction 50% severe pulmonary hypertension, [id number] mitral regurgitation. Chronic congestive heart failure with preserved ejection fraction, currently euvolemic 08/12 Nephrology Consult: Chronic diastolic CHF with moderate aortic insufficiency, mild to moderate mitral regurgitation and severe pulmonary hypertension. History/Risk Factors: Asthma, Heart Failure HTN, ESRD on HD, Clinical Indicators: 32-year-old female previous kidney transplant with rejection, history of cardiac myopathy with improved EF, congestive heart failure and pulmonary hypertension. Present with tachyarrhythmia EKG reveals atrial tachycardia per cardiology consult on 08/13/22. Treatment: Telemetry Monitoring Lopressor 5 MG IVP Once 08/12 Coreg 6.25 MG PO BID 08/12 -08/13 change to 12.5 08/13 Please clarify which diagnosis is most appropriate: [ ] Chronic Diastolic Heart Failure [ ] Other (please specify) [ ] Unable to determine. (Template Last Revised: September 2020) Chronic Diastolic Heart Failure MTDD
[2022-08-13] MEDS ORDERED: carvediloL 12.5 MG TAB PO SCH (17:30)
--- NOTE | 2022-08-13 22:16 | P.CONS ---
History of Present Illness - Reason for Consult Consult date: 08/13/22 Pneumonia Requesting physician: Rhys E Sheet - Chief Complaint Elevated heart rate x one day - History of Present Illness Patient is a 32-year-old -[place] female with past medical history significant for end-stage renal disease on hemodialysis hypertension heart failure, recent admission to the hospital treated for covid 19, patient mentioned she went for her routine dialysis yesterday and the patient was noticed to be tachycardic for the patient was sent to the ER patient on presentation to the hospital did have a heart rate of 152 however the patient to lerated has normalized since then the patient was afebrile and a few have been recorded subsequently and the patient was not hypoxic, patient did have a normal white count potassium was slightly elevated 5.2 liver enzymes are normal. Patient did have elevated troponin influenza RSV and covid PCR negative, patient did have a chest x-ray we did shows cardiomegaly with bilateral lower lung air space opacity which could be pulmonary vascular congestion was a developing pneumonia patient did have a mildly elevated pro-calcitonin of 0.49 patient was started on Zosyn and infectious disease was consulted for further management of antibiotic therapy. On today's evaluation that is 08/13/2022, the patient denies having any fever or chills, the patient currently denies having any chest pain or palpitation no shortness of breath currently on room airsignificant cough or sputum production no abdominal pain no diarrhea patient mentioned she is feeling better and would like to go home Review of Systems Positive point has been mentioned in the HPI rest of the systems are negative Past Medical History Past Medical History: Asthma, Heart Failure, Hypertension, Renal Disease Additional Past Medical History / Comment(s): ESRD d/t being born with polycystic kidney disease, failed kidney transplant, hemodialysis (M,W,Fr), metabolic bone disease, chronic anemia, 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 History of Any Multi-Drug Resistant Organisms: None Reported Past Surgical History: Heart Catheterization, Hernia Repair Additional Past Surgical History / Comment(s): 06/14/18 cardiac cath at [place] to check coronary pressures, 11/15/09 Failed kidney transplant R pelvis, dialysis catheter in and out, current L upper arm AVG, supra pubic hernia repair, transvaginal mesh, wisdom teeth extraction with anesthesia, 2017 failed kidney transplant Past Anesthesia/Blood Transfusion Reactions: No Reported Reaction Additional Past Anesthesia/Blood Transfusion Reaction / Comm: Pt has received blood in past without reaction. Past Psychological History: Anxiety, Depression Additional Psychological History / Comment(s): Pt resides with family. She is independent. She drives. She is disabled. She states she has anxiety and depression but no suicidal thoughts/ idealations or plans. Smoking Status: Never smoker Past Alcohol Use History: None Reported Additional Past Alcohol Use History / Comment(s): Pt states she started smoking socially as a teen and quit smoking in 2015. Past Drug Use History: None Reported, Marijuana Additional Drug Use History / Comment(s): Couple times a week. - Past Family History Father Family Medical History: No Reported History Additional Family Medical History / Comment(s): Father is healthy and is 62 yrs old. Mother Family Medical History: No Reported History Additional Family Medical History / Comment(s): Mother is healthy and is 60 yrs old. Medications and Allergies Home Medications Medication Instructions Recorded Confirmed Type Albuterol Sulfate [Proair Hfa] 2 puff INHALATION RT-Q6H PRN 01/22/16 08/12/22 History hydrALAZINE HCL [Apresoline] 100 mg PO TID 11/16/18 08/12/22 History Cinacalcet HCl [Sensipar] 120 mg PO MOWEFR 02/26/19 08/12/22 History Calcium Acetate [PhosLo] 2,668 mg PO TID-W/MEALS 05/01/20 08/12/22 History Lidocaine-Prilocaine Cream [Emla 1 applic TOPICAL DAILY PRN 05/01/20 08/12/22 History Cream 2.5%/2.5%] calcitrioL [Calcitriol] 3 mcg PO MOWEFR 10/29/21 08/12/22 History cloNIDine HCL [Catapres] 0.3 mg PO TID 10/29/21 08/12/22 History hydrOXYzine HCL [Atarax] 25 mg PO TID PRN 10/29/21 08/12/22 History Acetaminophen Tab [Tylenol] 1,000 mg PO Q6HR PRN 05/26/22 08/12/22 History Calcium Acetate [PhosLo] 667 - 1,334 mg PO BID PRN 05/26/22 08/12/22 History Isosorbide Mononitrate ER [Imdur] 30 mg PO DAILY 30 Days #30 tab 06/12/22 08/12/22 Rx NIFEdipine XL [Procardia XL] 60 mg PO Q12HR 30 Days #60 tab 06/12/22 08/12/22 Rx carvediloL [Coreg] 6.25 mg PO BID 30 Days #60 tab 06/12/22 08/12/22 Rx Ascorbic Acid [Vitamin C] 1,000 mg PO DAILY 30 Days #60 tab 07/29/22 08/12/22 Rx Pantoprazole [Protonix] 40 mg PO DAILY 30 Days #30 tab 07/29/22 08/12/22 Rx HYDROcodone/APAP 5-325MG [[place] 1 tab PO Q6HR PRN 08/12/22 08/12/22 History 5-325] Allergies Allergy/AdvReac Type Severity Reaction Status Date / Time vancomycin Allergy Anaphylaxis Verified 08/12/22 10:01 hydralazine AdvReac Rapid Verified 08/12/22 10:01 Heart Rate WHEN GIVEN THROUGH IV Physical Exam Vitals: Vital Signs Temp Pulse Pulse Resp BP BP Pulse Ox 08/13/22 08:00 98.3 F 74 16 139/88 99 08/13/22 04:00 97.9 F 76 14 137/89 99 08/13/22 00:00 98.1 F 76 14 133/86 99 08/12/22 20:00 97.7 F 74 14 128/79 99 08/12/22 15:46 98.7 F 93 16 144/84 98 08/12/22 15:18 97.7 F 100 16 132/79 08/12/22 13:00 87 18 121/80 08/12/22 12:50 86 17 123/88 08/12/22 12:40 84 20 130/86 08/12/22 12:30 91 16 124/87 08/12/22 12:20 89 16 124/87 08/12/22 12:10 89 18 132/87 08/12/22 12:00 94 22 120/84 98 08/12/22 11:50 105 H 19 120/84 08/12/22 11:40 95 17 127/91 08/12/22 11:30 94 18 127/91 08/12/22 11:20 93 18 99 08/12/22 11:10 95 19 100 08/12/22 11:00 96 22 08/12/22 10:50 93 19 95 08/12/22 10:40 92 20 98 08/12/22 10:33 90 18 97 08/12/22 10:30 90 18 95 08/12/22 10:20 142 H 18 95 08/12/22 10:10 141 H 21 95 08/12/22 10:00 140 H 18 96 08/12/22 09:50 141 H 21 97 Intake and Output 08/12/22 08/13/22 08/13/22 22:59 06:59 14:59 Intake Total 418 Output Total 2534 Balance -2115 Intake: Oral 118 Hemodialysis 300 Output: Hemodialysis 2534 Other: # Voids 1 1 Weight 60 kg 57.7 kg GENERAL DESCRIPTION: Middle-aged female lying in bed, no distress. No tachypnea or accessory muscle of respiration use. HEENT: Shows Pallor , no scleral icterus. Oral mucous membrane is dry. No pharyngeal erythema or thrush NECK: Trachea central, no thyromegaly. LUNGS: Unlabored breathing. Decreased breath sounds at the base. HEART: S1, S2, regular rate and rhythm. No loud murmur ABDOMEN: Soft, no tenderness , guarding or rigidity, no organomegaly EXTREMITIES: No edema of feet. SKIN: No rash, no masses palpable. NEUROLOGICAL: The patient is awake, alert, oriented x3, mood and affect normal. Results CBC & Chem 7: 08/12/22 08:16 08/12/22 08:16 Labs: Abnormal Lab Results - Last 24 Hours (Table) 08/12/22 08/12/22 08/12/22 Range/Units 11:17 11:53 18:16 Phosphorus 4.6 H (2.5-4.5) mg/dL Troponin I 0.139 H* (0.000-0.034) ng/mL Procalcitonin 0.49 H (0.02-0.09) ng/mL 08/12/22 Range/Units 21:13 Phosphorus (2.5-4.5) mg/dL Troponin I 0.122 H* (0.000-0.034) ng/mL Procalcitonin (0.02-0.09) ng/mL Assessment and Plan (1) Abnormal chest x-ray Status: Acute Code(s): R93.89 - ABNORMAL FINDINGS ON DX IMAGING OF OTH BODY STRUCTURES SNOMED Code(s): 591187097 (2) Elevated procalcitonin Status: Acute Code(s): R79.89 - OTHER SPECIFIED ABNORMAL FINDINGS OF BLOOD CHEMISTRY SNOMED Code(s): 019120563 Plan: 1patient presented to the hospital with palpitation noticed at the dialysis center this patient did have abnormal x-ray with bilateral lower lobe opacity questionably fluid related as no sinus symptoms are cardiac in etiology however the patient did have elevated pro-calcitonin underlying pneumonia less likely but not entirely excluded 2patient has been insisting on going home however she has been advised to stay in the hospital for at least 24 hour to see response to the current antibiotics however discussed with the admitting physician if the patient insisting on going home may consider short course of oral Augmentin 500 mg twice a day on discharge We will follow on clinical condition and cultures to further adjust medication if needed Thank you for this consultation will follow this patient with you
--- NOTE | 2022-08-13 22:47 | P.DS ---
Providers Date of admission: 08/12/22 14:22 Attending physician: Rhys Nix MD Consults: 08/12/22 12:41 Consult Physician Routine Consulting Provider: Evangelista Larios Consult Reason/Comments: Tachyarrhythmia Do you want consulting provider notified?: Yes 08/13/22 07:40 Consult Physician Routine Consulting Provider: Yaima Haji Consult Reason/Comments: pneumonia Do you want consulting provider notified?: Yes 08/13/22 07:42 Consult Physician Routine Consulting Provider: Robin Thompson Consult Reason/Comments: polyscystic kidney disease/end stage renal disease Do you want consulting provider notified?: Already Contacted Primary care physician: [facility] Hospital Course: Please note the patient was not discharged but left AMA Patient decided to leave AMA before I have a chance to see the patient or talk to her again Patient has capacity to make medical decision upon my evaluation. Please refer to progress note from today for more details. Please refer to intermediate for more details Patient Condition at Discharge: Fair Plan - Discharge Summary Discharge Rx Participant: No New Discharge Prescriptions: No Action Albuterol Sulfate [Proair Hfa] 2 puff INHALATION RT-Q6H PRN PRN Reason: Shortness Of Breath hydrALAZINE HCL [Apresoline] 100 mg PO TID Cinacalcet HCl [Sensipar] 120 mg PO MOWEFR Lidocaine-Prilocaine Cream [Emla Cream 2.5%/2.5%] 1 applic TOPICAL DAILY PRN PRN Reason: PORT ACCESS Calcium Acetate [PhosLo] 2,668 mg PO TID-W/MEALS hydrOXYzine HCL [Atarax] 25 mg PO TID PRN PRN Reason: Anxiety Acetaminophen Tab [Tylenol] 1,000 mg PO Q6HR PRN PRN Reason: Pain Or Fever > 100.5 Isosorbide Mononitrate ER [Imdur] 30 mg PO DAILY 30 Days #30 tab Ascorbic Acid [Vitamin C] 1,000 mg PO DAILY 30 Days #60 tab cloNIDine HCL [Catapres] 0.3 mg PO TID calcitrioL [Calcitriol] 3 mcg PO MOWEFR Calcium Acetate [PhosLo] 667 - 1,334 mg PO BID PRN PRN Reason: WITH SNACKS carvediloL [Coreg] 6.25 mg PO BID 30 Days #60 tab NIFEdipine XL [Procardia XL] 60 mg PO Q12HR 30 Days #60 tab Pantoprazole [Protonix] 40 mg PO DAILY 30 Days #30 tab HYDROcodone/APAP 5-325MG [Bertram 5-325] 1 tab PO Q6HR PRN PRN Reason: Pain Discharge Medication List Albuterol Sulfate [Proair Hfa] 2 puff INHALATION RT-Q6H PRN 01/22/16 [History] hydrALAZINE HCL [Apresoline] 100 mg PO TID 11/16/18 [History] Cinacalcet HCl [Sensipar] 120 mg PO MOWEFR 02/26/19 [History] Calcium Acetate [PhosLo] 2,668 mg PO TID-W/MEALS 05/01/20 [History] Lidocaine-Prilocaine Cream [Emla Cream 2.5%/2.5%] 1 applic TOPICAL DAILY PRN 05/01/20 [History] calcitrioL [Calcitriol] 3 mcg PO MOWEFR 10/29/21 [History] cloNIDine HCL [Catapres] 0.3 mg PO TID 10/29/21 [History] hydrOXYzine HCL [Atarax] 25 mg PO TID PRN 10/29/21 [History] Acetaminophen Tab [Tylenol] 1,000 mg PO Q6HR PRN 05/26/22 [History] Calcium Acetate [PhosLo] 667 - 1,334 mg PO BID PRN 05/26/22 [History] Isosorbide Mononitrate ER [Imdur] 30 mg PO DAILY 30 Days #30 tab 06/12/22 [Rx] NIFEdipine XL [Procardia XL] 60 mg PO Q12HR 30 Days #60 tab 06/12/22 [Rx] carvediloL [Coreg] 6.25 mg PO BID 30 Days #60 tab 06/12/22 [Rx] Ascorbic Acid [Vitamin C] 1,000 mg PO DAILY 30 Days #60 tab 07/29/22 [Rx] Pantoprazole [Protonix] 40 mg PO DAILY 30 Days #30 tab 07/29/22 [Rx] HYDROcodone/APAP 5-325MG [Bertram 5-325] 1 tab PO Q6HR PRN 08/12/22 [History] Follow up Appointment(s)/Referral(s): Karo Alicea MD [Primary Care Provider] - 1-2 days Discharge Disposition: Left Against Medical Advice
== END 2022-08-13 16:58 | disposition left against medical advice (07) | DRG 308 ==
LOC: EC 07:51 → 3SCARD 14:22
PROVIDERS: ADMIT Internal Medicine; ATTEND Internal Medicine
DX: I47.1 Supraventricular tachycardia (principal); N18.6 End stage renal disease; T86.12 Kidney transplant failure; I13.2 Hypertensive heart and chronic kidney disease with heart failure and with stage 5 chronic kidney disease, or end stage renal disease; Q61.3 Polycystic kidney, unspecified; I42.8 Other cardiomyopathies; I50.32 Chronic diastolic (congestive) heart failure; I27.20 Pulmonary hypertension, unspecified; D63.1 Anemia in chronic kidney disease; I48.92 Unspecified atrial flutter; Z99.2 Dependence on renal dialysis; I08.0 Rheumatic disorders of both mitral and aortic valves; J45.909 Unspecified asthma, uncomplicated; F32.A Depression, unspecified; R12 Heartburn; F41.9 Anxiety disorder, unspecified; M89.8X9 Other specified disorders of bone, unspecified site; I48.91 Unspecified atrial fibrillation; Z20.822 Contact with and (suspected) exposure to COVID-19; Z53.29 Procedure and treatment not carried out because of patient's decision for other reasons; Z88.1 Allergy status to other antibiotic agents; Z88.8 Allergy status to other drugs, medicaments and biological substances; Z79.899 Other long term (current) drug therapy; Z86.16 Personal history of COVID-19; Z28.310 Unvaccinated for COVID-19
CPT/HCPCS: 36415; 71045; 80053; 83735; 83880; 84100; 84145; 84443; 84484; 84703; 85025; 85610; 85730; 87502; 87634; 87635; 90935; 93005; 96365; 96366; 96375; 99291

== ENCOUNTER 2023-01-18 11:08 | Inpatient (IN) | payer MEDICARE, OTHER ==
--- NOTE | 2023-01-18 12:21 | XR ---
EXAMINATION TYPE: XR chest 2V DATE OF EXAM: 01/18/2023 COMPARISON: 08/12/2022 HISTORY: Chest pain TECHNIQUE: Frontal and lateral views of the chest are obtained. FINDINGS: There is persistent cardiomegaly with pulmonary venous congestion and scattered infiltrates. Correlat e for any underlying congestive failure versus pneumonia. Hilar and mediastinal structures are stable . The osseous structures are grossly intact. No sizable effusions are visible at this time. IMPRESSION: 1. Correlate for any underlying congestive failure versus pneumonia.
--- NOTE | 2023-01-18 12:23 | ED ---
General Adult HPI - General Chief complaint: Shortness of Breath Stated complaint: SOB Time Seen by Provider: 01/18/23 11:59 Source: patient, RN notes reviewed Mode of arrival: ambulatory Limitations: no limitations - History of Present Illness Initial comments: Patient is a pleasant 32-year-old female presenting to the emergency department with some difficulty in breathing. Onset of symptoms was a week or 2 ago. Patient does have history of similar symptoms previously associated with fluid overload. Patient is on dialysis secondary to chronic kidney disease. Patient states she has not missed any dialysis. Patient has mild sharp chest discomf ort. No leg pain or swelling. No cough or fever. - Related Data Home Medications Medication Instructions Recorded Confirmed Albuterol Sulfate [Proair Hfa] 2 puff INHALATION RT-Q6H PRN 01/22/16 08/12/22 hydrALAZINE HCL [Apresoline] 100 mg PO TID 11/16/18 08/12/22 Cinacalcet HCl [Sensipar] 120 mg PO MOWEFR 02/26/19 08/12/22 Calcium Acetate [PhosLo] 2,668 mg PO TID-W/MEALS 05/01/20 08/12/22 Lidocaine-Prilocaine Cream [Emla 1 applic TOPICAL DAILY PRN 05/01/20 08/12/22 Cream 2.5%/2.5%] calcitrioL [Calcitriol] 3 mcg PO MOWEFR 10/29/21 08/12/22 cloNIDine HCL [Catapres] 0.3 mg PO TID 10/29/21 08/12/22 hydrOXYzine HCL [Atarax] 25 mg PO TID PRN 10/29/21 08/12/22 Acetaminophen Tab [Tylenol] 1,000 mg PO Q6HR PRN 05/26/22 08/12/22 Calcium Acetate [PhosLo] 667 - 1,334 mg PO BID PRN 05/26/22 08/12/22 HYDROcodone/APAP 5-325MG [[place] 1 tab PO Q6HR PRN 08/12/22 08/12/22 5-325] Previous Rx's Medication Instructions Recorded Isosorbide Mononitrate ER [Imdur] 30 mg PO DAILY 30 Days #30 tab 06/12/22 NIFEdipine XL [Procardia XL] 60 mg PO Q12HR 30 Days #60 tab 06/12/22 carvediloL [Coreg] 6.25 mg PO BID 30 Days #60 tab 06/12/22 Ascorbic Acid [Vitamin C] 1,000 mg PO DAILY 30 Days #60 tab 07/29/22 Pantoprazole [Protonix] 40 mg PO DAILY 30 Days #30 tab 07/29/22 Allergies Allergy/AdvReac Type Severity Reaction Status Date / Time vancomycin Allergy Anaphylaxis Verified 01/18/23 11:20 hydralazine AdvReac Rapid Verified 01/18/23 11:20 Heart Rate WHEN GIVEN THROUGH IV Review of Systems ROS Statement: Those systems with pertinent positive or pertinent negative responses have been documented in the HPI. ROS Other: All systems not noted in ROS Statement are negative. Constitutional: Denies: fever Eyes: Denies: eye pain ENT: Denies: ear pain Respiratory: Reports: as per HPI, dyspnea. 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 History of Any Multi-Drug Resistant Organisms: None Reported Past Surgical History: Heart Catheterization, Hernia Repair Additional Past Surgical History / Comment(s): 06/14/18 cardiac cath at [facility] to check coronary pressures, 11/15/09 Failed kidney transplant R pelvis, dialysis catheter in and out, current L upper arm AVG, supra pubic hernia repair, tra nsvaginal mesh, wisdom teeth extraction with anesthesia, 2016 failed kidney transplant Past Anesthesia/Blood Transfusion Reactions: No Reported Reaction Additional Past Anesthesia/Blood Transfusion Reaction / Comment(s): Pt has received blood in past without reaction. Past Psychological History: Anxiety, Depression Smoking Status: Never smoker Past Alcohol Use History: None Reported Past Drug Use History: None Reported, Marijuana - Past Family History Father Family Medical History: No Reported History Additional Family Medical History / Comment(s): Father is healthy and is 62 yrs old. Mother Family Medical History: No Reported History Additional Family Medical History / Comment(s): Mother is healthy and is 60 yrs old. General Exam Limitations: no limitations General appearance: alert, in no apparent distress Head exam: Present: normocephalic Eye exam: Present: normal appearance Neck exam: Present: normal inspection Respiratory exam: Present: normal lung sounds bilaterally, chest wall tenderness (Sternal) Cardiovascular Exam: Present: regular rate, normal rhythm GI/Abdominal exam: Present: soft. Absent: tenderness Extremities exam: Present: normal inspection, other (Dialysis graft left upper arm) Neurological exam: Present: alert Psychiatric exam: Present: normal affect, normal mood Skin exam: Present: normal color Course Vital Signs 01/18/23 11:16 Temperature 98.2 F Pulse Rate 89 Respiratory 20 Rate Blood Pressure 154/86 O2 Sat by Pulse 98 Oximetry EKG Findings - EKG Results: EKG: interpreted by ERMD (Left axis. LVH with left-sided T-wave inversion and ST depression), sinus rhythm, not changed from: (08/12/22) Medical Decision Making - Medical Decision Making Was pt. sent in by a medical professional or institution (, PA, [employer] ASSOCIATE, urgent care, hospital, or halfway...) When possible be specific @ -Patient was sent in from dialysis center Did you speak to anyone other than the patient for history (EMS, parent, family, police, friend...)? What history was obtained from this source @ -EMS also provide history including why patient presented here Did you review nursing and triage notes (agree or disagree)? Why? @ -I reviewed and agree with nursing and triage notes Were old charts reviewed (outside hosp., previous admission, EMS record, old EKG, old radiological studies, urgent care reports/EKG's, halfway records)? Report findings @ -No old charts were reviewed Differential Diagnosis (chest pain, altered mental status, abdominal pain women, abdominal pain men, vaginal bleeding, weakness, fever, dyspnea, syncope, headache, dizziness, GI bleed, back pain, seizure, CVA, palpatations, mental health)? @ -Differential Dyspnea: Coronary syndrome, arrhythmia, tamponade, asthma, COPD, pulmonary embolism, pneumonia, pneumothorax, pulmonary effusion, anaphylaxis, diabetic ketoacidosis, flailed chest, pulmonary contusion, diaphragmatic rupture, anemia, neuromuscular, this is not meant to be an all-inclusive list. EKG interpreted by me (3pts min.). @ -As above X-rays interpreted by me (1pt min.). @ -Chest x-ray concerning for CHF CT interpreted by me (1pt min.). @ -None done U/S interpreted by me (1pt. min.). @ -None done What testing was considered but not performed or refused? (CT, X-rays, U/S, labs)? Why? @ -None What meds were considered but not given or refused? Why? @ -None Did you discuss the management of the patient with other professionals (professionals i.e. , PA, [employer] ASSOCIATE, lab, RT, psych nurse, social science professor, tube dispatcher, teacher, space operations officer, case management coordinator)? Give summary @ -Case was discussed with Dr. Albert, who will admit covering Dr. Blanca Was smoking cessation discussed for >3mins.? @ -No Was critical care preformed (if so, how long)? @ -No Were there social determinants of health that impacted care today? How? (Homelessness, low income, unemployed, alcoholism, drug addiction, trans portation, low edu. Level, literacy, decrease access to med. care, skilled nursing, rehab)? @ -No Was there de-escalation of care discussed even if they declined (Discuss DNR or withdrawal of care, Hospice)? DNR status @ -No What co-morbidities impacted this encounter? (DM, HTN, Smoking, COPD, CAD, Cancer, CVA, ARF, Chemo, Hep., AIDS, mental health diagnosis, sleep apnea, morbid obesity)? @ -None Was patient admitted / discharged? Hospital course, mention meds given and route, prescriptions, significant lab abnormalities, going to OR and other pertinent info. @ -Patient reevaluated and updated. Patient has history of fluid overload with similar presentation. Patient will be admitted with consult with nephrology here H will also have consult with cardiology secondary to chest discomfort Undiagnosed new problem with uncertain prognosis? @ -No Drug Therapy requiring intensive monitoring for toxicity (Heparin, Nitro, Insulin, Cardizem)? @ -No Were any procedures done? @ -No Diagnosis/symptom? @ -Pulmonary edema Acute, or Chronic, or Acute on Chronic? @ -Acute Uncomplicated (without systemic symptoms) or Complicated (systemic symptoms)? @ -default Side effects of treatment? @ -No Exacerbation, Progression, or Severe Exacerbation? @ -No Poses a threat to life or bodily function? How? (Chest pain, USA, MD, pneumonia, PE, COPD, DKA, ARF, appy, cholecystitis, CVA, Diverticulitis, Homicidal, Suicidal, threat to staff... and all critical care pts) @ -No - Lab Data Result diagrams: 01/18/23 12:54 01/18/23 12:54 Lab Results 01/18/23 01/18/23 01/18/23 Range/Units 12:54 12:54 12:54 WBC 3.7 L (3.8-10.6) k/uL RBC 3.48 L (3.80-5.40) m/uL Hgb 10.8 L (11.4-16.0) gm/dL Hct 33.0 L (34.0-46.0) % MCV 94.6 (80.0-100.0) fL MCH 30.9 (25.0-35.0) pg MCHC 32.7 (31.0-37.0) g/dL RDW 18.3 H (11.5-15.5) % Plt Count 131 L (150-450) k/uL MPV 9.6 Neutrophils % 72 % Lymphocytes % 14 % Monocytes % 4 % Eosinophils % 7 % Basophils % 1 % Neutrophils # 2.6 (1.3-7.7) k/uL Lymphocytes # 0.5 L (1.0-4.8) k/uL Monocytes # 0.2 (0-1.0) k/uL Eosinophils # 0.3 (0-0.7) k/uL Basophils # 0.0 (0-0.2) k/uL Hypochromasia Slight Anisocytosis Slight Macrocytosis Slight PT 11.3 (9.0-12.0) sec INR 1.1 (<1.2) APTT 24.6 (22.0-30.0) sec Sodium 137 (137-145) mmol/L Potassium 3.8 (3.5-5.1) mmol/L Chloride 97 L (98-107) mmol/L Carbon Dioxide 34 H (22-30) mmol/L Anion Gap 6 mmol/L BUN 20 H (7-17) mg/dL Creatinine 5.04 H (0.52-1.04) mg/dL Est GFR (CKD-EPI)AfAm 12 (>60 ml/min/1.73 sqM) Est GFR (CKD-EPI)NonAf 11 (>60 ml/min/1.73 sqM) Glucose 93 (74-99) mg/dL Plasma Lactic Acid Johan (0.7-2.0) mmol/L Calcium 8.3 L (8.4-10.2) mg/dL Magnesium 2.0 (1.6-2.3) mg/dL Total Bilirubin 0.9 (0.2-1.3) mg/dL AST 26 (14-36) U/L ALT 17 (4-34) U/L Alkaline Phosphatase 75 (38-126) U/L Troponin I (0.000-0.034) ng/mL NT-Pro-B Natriuret Pep pg/mL Total Protein 7.1 (6.3-8.2) g/dL Albumin 3.9 (3.5-5.0) g/dL Influenza Type A (PCR) (Not Detectd) Influenza Type B (PCR) (Not Detectd) RSV (PCR) (Not Detectd) SARS-CoV-2 (PCR) (Not Detectd) 01/18/23 01/18/23 01/18/23 Range/Units 12:54 12:54 12:54 WBC (3.8-10.6) k/uL RBC (3.80-5.40) m/uL Hgb (11.4-16.0) gm/dL Hct (34.0-46.0) % MCV (80.0-100.0) fL MCH (25.0-35.0) pg MCHC (31.0-37.0) g/dL RDW (11.5-15.5) % Plt Count (150-450) k/uL MPV Neutrophils % % Lymphocytes % % Monocytes % % Eosinophils % % Basophils % % Neutrophils # (1.3-7.7) k/uL Lymphocytes # (1.0-4.8) k/uL Monocytes # (0-1.0) k/uL Eosinophils # (0-0.7) k/uL Basophils # (0-0.2) k/uL Hypochromasia Anisocytosis Macrocytosis PT (9.0-12.0) sec INR (<1.2) APTT (22.0-30.0) sec Sodium (137-145) mmol/L Potassium (3.5-5.1) mmol/L Chloride (98-107) mmol/L Carbon Dioxide (22-30) mmol/L Anion Gap mmol/L BUN (7-17) mg/dL Creatinine (0.52-1.04) mg/dL Est GFR (CKD-EPI)AfAm (>60 ml/min/1.73 sqM) Est GFR (CKD-EPI)NonAf (>60 ml/min/1.73 sqM) Glucose (74-99) mg/dL Plasma Lactic Acid Johan 0.7 (0.7-2.0) mmol/L Calcium (8.4-10.2) mg/dL Magnesium (1.6-2.3) mg/dL Total Bilirubin (0.2-1.3) mg/dL AST (14-36) U/L ALT (4-34) U/L Alkaline Phosphatase (38-126) U/L Troponin I 0.056 H* (0.000-0.034) ng/mL NT-Pro-B Natriuret Pep 76011 pg/mL Total Protein (6.3-8.2) g/dL Albumin (3.5-5.0) g/dL Influenza Type A (PCR) (Not Detectd) Influenza Type B (PCR) (Not Detectd) RSV (PCR) (Not Detectd) SARS-CoV-2 (PCR) (Not Detectd) 01/18/23 Range/Units 13:00 WBC (3.8-10.6) k/uL RBC (3.80-5.40) m/uL Hgb (11.4-16.0) gm/dL Hct (34.0-46.0) % MCV (80.0-100.0) fL MCH (25.0-35.0) pg MCHC (31.0-37.0) g/dL RDW (11.5-15.5) % Plt Count (150-450) k/uL MPV Neutrophils % % Lymphocytes % % Monocytes % % Eosinophils % % Basophils % % Neutrophils # (1.3-7.7) k/uL Lymphocytes # (1.0-4.8) k/uL Monocytes # (0-1.0) k/uL Eosinophils # (0-0.7) k/uL Basophils # (0-0.2) k/uL Hypochromasia Anisocytosis Macrocytosis PT (9.0-12.0) sec INR (<1.2) APTT (22.0-30.0) sec Sodium (137-145) mmol/L Potassium (3.5-5.1) mmol/L Chloride (98-107) mmol/L Carbon Dioxide (22-30) mmol/L Anion Gap mmol/L BUN (7-17) mg/dL Creatinine (0.52-1.04) mg/dL Est GFR (CKD-EPI)AfAm (>60 ml/min/1.73 sqM) Est GFR (CKD-EPI)NonAf (>60 ml/min/1.73 sqM) Glucose (74-99) mg/dL Plasma Lactic Acid Johan (0.7-2.0) mmol/L Calcium (8.4-10.2) mg/dL Magnesium (1.6-2.3) mg/dL Total Bilirubin (0.2-1.3) mg/dL AST (14-36) U/L ALT (4-34) U/L Alkaline Phosphatase (38-126) U/L Troponin I (0.000-0.034) ng/mL NT-Pro-B Natriuret Pep pg/mL Total Protein (6.3-8.2) g/dL Albumin (3.5-5.0) g/dL Influenza Type A (PCR) Not Detected (Not Detectd) Influenza Type B (PCR) Not Detected (Not Detectd) RSV (PCR) Not Detected (Not Detectd) SARS-CoV-2 (PCR) Not Detected (Not Detectd) Disposition Clinical Impression: Pulmonary edema Disposition: ADMITTED IP TO THIS HOSP Is patient prescribed a controlled substance at d/c from ED?: No Referrals: Karo Alicea MD [Primary Care Provider] - 1-2 days Time of Disposition: 15:35
[2023-01-18 13:05] LABS: Anisocytosis Slight; Basophils % (A) 1 %; Eosinophils # (A) 0.3 k/uL (0-0.7); Eosinophils % (A) 7 %; HGB 10.8 gm/dL (11.4-16.0); Hypochromasia Slight; Lymphocytes # (A) 0.5 k/uL (1.0-4.8); Lymphocytes % (A) 14 %; MCH 30.9 pg (25.0-35.0); MCHC 32.7 g/dL (31.0-37.0); MCV 94.6 fL (80.0-100.0); Macrocytosis Slight; Mean Platelet Volume 9.6; Monocytes # (A) 0.2 k/uL (0-1.0); Monocytes % (A) 4 %; Neutrophils # (A) 2.6 k/uL (1.3-7.7); Neutrophils % (A) 72 %; Platelet Count 131 k/uL (150-450); RBC 3.48 m/uL (3.80-5.40); RDW 18.3 % (11.5-15.5); WBC 3.7 k/uL (3.8-10.6)
[2023-01-18 13:13] LABS: INR 1.1 (<1.2); Prothrombin Time 11.3 sec (9.0-12.0)
[2023-01-18 13:14] LABS: Partial Thromboplastin Time 24.6 sec (22.0-30.0)
[2023-01-18 13:15] LABS: ALT 17 U/L (4-34); AST 26 U/L (14-36); African American GFR (CKD) 12 (>60 ml/min/1.73 sqM); Albumin 3.9 g/dL (3.5-5.0); Alkaline Phosphatase 75 U/L (38-126); Anion Gap 6 mmol/L; Blood Urea Nitrogen 20 mg/dL (7-17); Calcium 8.3 mg/dL (8.4-10.2); Carbon Dioxide 34 mmol/L (22-30); Chloride 97 mmol/L (98-107); Glucose 93 mg/dL (74-99); Non-African American GFR(CKD) 11 (>60 ml/min/1.73 sqM); Potassium 3.8 mmol/L (3.5-5.1); Sodium 137 mmol/L (137-145); Total Bilirubin 0.9 mg/dL (0.2-1.3); Total Protein 7.1 g/dL (6.3-8.2)
[2023-01-18] MEDS ORDERED: ACETAMINOPHEN TAB 500 MG TAB PO STA (14:29)
[2023-01-18] MEDS ORDERED: ACETAMINOPHEN TAB 325 MG TAB PO STA (14:40)
[2023-01-18] MEDS ORDERED: NALOXONE 0.4 MG/ML 1 ML VIAL IV PRN (15:35)
[2023-01-18] MEDS ORDERED: ACETAMINOPHEN TAB 325 MG TAB PO PRN (15:35)
[2023-01-18] MEDS ORDERED: IPRATROPIUM-ALBUTEROL 3 ML NEB INHALATION PRN (16:20)
[2023-01-18] MEDS: IPRATROPIUM-ALBUTEROL 3 ML NEB INHALATION SCH (20:02)
[2023-01-18] MEDS ORDERED: hydrOXYzine HCL 25 MG TAB PO PRN (21:15)
[2023-01-18] MEDS ORDERED: PANTOPRAZOLE 40 MG TABLET PO PRN (21:16)
[2023-01-18] MEDS ORDERED: ALBUTEROL NEBULIZED 2.5 MG/3 ML INHALATION PRN (21:17)
[2023-01-18] MEDS ORDERED: NIFEdipine XL 90 MG TAB.ER.24 PO STA (21:23)
[2023-01-18] MEDS ORDERED: carvediloL 12.5 MG TAB PO SCH (21:30)
[2023-01-18] MEDS: hydrALAZINE HCL 50 MG TAB PO SCH (21:38)
[2023-01-18] MEDS: HYDROcodone/APAP 5-325MG 1 EACH TAB PO PRN (21:38)
[2023-01-18] MEDS ORDERED: carvediloL 12.5 MG TAB PO STA (22:07)
[2023-01-19] MEDS ORDERED: NIFEdipine XL 90 MG TAB.ER.24 PO ONE (00:45)
--- NOTE | 2023-01-19 01:49 | HP ---
HISTORY AND PHYSICAL CHIEF COMPLAINT: Shortness of breath. HISTORY OF PRESENT ILLNESS: This is a 32-year-old woman with a past medical history of multiple medical problems including end-stage renal disease, on hemodialysis, is complaining of shortness of breath. The patient finished dialysis today. about couple of days ago. The patient previously had fluid overload. There is no history of any fever, rigors, or chills. A chest x-ray showed some mild CHF and significant cardiomegaly. PAST MEDICAL HISTORY: Reviewed. Includes chronic kidney disease and hemodialysis. Rest of the chart and rest of the diagnosis also reviewed. HOME MEDICATIONS: Reviewed include Catapres. Doses are reviewed, but they are not confirmed yet. ALLERGIES: Reviewed include vancomycin. FAMILY HISTORY: No history of heart disease or strokes in the family. SOCIAL HISTORY: No history of smoking, or alcohol. REVIEW OF SYSTEMS: A 14-point review is negative except as mentioned earlier. PHYSICAL EXAMINATION: VITAL SIGNS: Pulse is 103, blood pressure 157/108, respirations 18. HEENT: Conjunctivae normal. NECK: No jugular venous distention. CARDIOVASCULAR: No murmur. RESPIRATIONS: Breath sounds diminished at the bases. A few scattered rhonchi and crackles. ABDOMEN: Soft, nontender. LEGS: No edema. NERVOUS SYSTEM: No focal deficit. SKIN: No ulcer, rash, bleeding. JOINTS: No active deforming arthropathy LABORATORY DATA: Reviewed. Chest x-ray reviewed personally. ASSESSMENT: 1. Shortness of breath, congestive heart failure acute exacerbation. 2. End-stage renal disease, on hemodialysis. The troponin 0.056, indeterminate. 3. History of asthma. 4. History of hypertension. RECOMMENDATIONS AND DISCUSSION: This is a 32-year-old woman, who presented with multiple complex medical issues. We will monitor the patient closely. Continue the current management. Continue symptomatic treatment. We will initiate Nephrology consultation, hemodialysis, Cardiology consultation. I would also recommend bronchodilators. Otherwise, a 2D echo with Doppler also will be requested. Resume the home medications once they are confirmed. Prognosis guarded. Further recommendations to follow. MMODL / IJN: [id number] / MTDD
[2023-01-19] MEDS ORDERED: carvediloL 12.5 MG TAB PO SCH (07:30)
[2023-01-19] MEDS: IPRATROPIUM-ALBUTEROL 3 ML NEB INHALATION SCH ×3 (08:53→20:38)
[2023-01-19] MEDS: CALCIUM ACETATE 667 MG TAB PO SCH ×3 (09:26→17:23)
[2023-01-19 09:29] LABS: African American GFR (CKD) 8 (>60 ml/min/1.73 sqM); Anion Gap 8 mmol/L; Blood Urea Nitrogen 29 mg/dL (7-17); Calcium 7.4 mg/dL (8.4-10.2); Carbon Dioxide 30 mmol/L (22-30); Chloride 98 mmol/L (98-107); Glucose 84 mg/dL (74-99); Non-African American GFR(CKD) 7 (>60 ml/min/1.73 sqM); Potassium 4.8 mmol/L (3.5-5.1); Sodium 136 mmol/L (137-145)
[2023-01-19] MEDS: NIFEdipine XL 90 MG TAB.ER.24 PO SCH (09:30)
[2023-01-19] MEDS: HYDROcodone/APAP 5-325MG 1 EACH TAB PO PRN ×2 (09:30→20:22)
[2023-01-19] MEDS: hydrALAZINE HCL 50 MG TAB PO SCH ×3 (09:30→19:28)
[2023-01-19 09:31] LABS: Anisocytosis Slight; Basophils % (A) 1 %; Eosinophils # (A) 0.3 k/uL (0-0.7); Eosinophils % (A) 9 %; HGB 9.8 gm/dL (11.4-16.0); Hypochromasia Moderate; Lymphocytes # (A) 0.6 k/uL (1.0-4.8); Lymphocytes % (A) 17 %; MCH 30.7 pg (25.0-35.0); MCHC 31.7 g/dL (31.0-37.0); MCV 96.8 fL (80.0-100.0); Macrocytosis Slight; Mean Platelet Volume 9.5; Monocytes # (A) 0.1 k/uL (0-1.0); Monocytes % (A) 3 %; Neutrophils # (A) 2.4 k/uL (1.3-7.7); Neutrophils % (A) 70 %; Platelet Count 111 k/uL (150-450); RBC 3.21 m/uL (3.80-5.40); RDW 18.3 % (11.5-15.5); WBC 3.3 k/uL (3.8-10.6)
[2023-01-19] MEDS ORDERED: carvediloL 12.5 MG TAB PO STA (09:46)
--- NOTE | 2023-01-19 12:49 | P.NPCON ---
History of Present Illness - Reason for Consult end stage renal disease - History of Present Illness Patient is a 32-year-old female with end-stage renal disease on hemodialysis on a Wednesday schedule. Patient was admitted to the hospital yesterday with complaints of chest pain. She felt her heart was not beating right. Patient had about 3 L of fluid removed with hemodialysis as outpatient prior to coming to the ER. Chest x-ray on admission showed evidence of CHF. Patient's blood pressure was elevated. She does state that her weight has been significantly higher than her dry weight. No complaints of fever chills nausea vomiting or abdominal pain. Patient is scheduled for hemodialysis today as an extra treatment mostly for fluid removal. 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 History of Any Multi-Drug Resistant Organisms: None Reported Past Surgical History: Heart Catheterization, Hernia Repair Additional Past Surgical History / Comment(s): 06/14/18 cardiac cath at [facility] to check coronary pressures, 11/15/09 Failed kidney transplant R pelvis, dialysis catheter in and out, current L upper arm AVG, supra pubic hernia repair, transvaginal mesh, wisdom teeth extraction with anesthesia, 2016 failed kidney transplant Past Anesthesia/Blood Transfusion Reactions: No Reported Reaction Additional Past Anesthesia/Blood Transfusion Reaction / Comment(s): Pt has received blood in past without reaction. Past Psychological History: Anxiety, Depression Additional Psychological History / Comment(s): Pt resides with family. She is independent. She drives. She is disabled. She states she has anxiety and depression but no suicidal thoughts/ idealations or plans. Smoking Status: Former smoker Past Alcohol Use History: None Reported Additional Past Alcohol Use History / Comment(s): Pt states she started smoking socially as a teen and quit smoking in 2015. Past Drug Use History: None Reported, Marijuana Additional Drug Use History / Comment(s): Couple times a week. - Past Family History Father Family Medical History: No Reported History Additional Family Medical History / Comment(s): Father is healthy and is 62 yrs old. Mother Family Medical History: No Reported History Additional Family Medical History / Comment(s): Mother is healthy and is 60 yrs old. Medications and Allergies Home Medications Medication Instructions Recorded Confirmed Type Albuterol Sulfate [Proair Hfa] 2 puff INHALATION RT-Q6H PRN 01/22/16 01/18/23 History hydrALAZINE HCL [Apresoline] 100 mg PO TID 11/16/18 01/18/23 History Cinacalcet HCl [Sensipar] 120 mg PO MOWEFR 02/26/19 01/18/23 History Calcium Acetate [PhosLo] 2,668 mg PO TID-W/MEALS 05/01/20 01/18/23 History Lidocaine-Prilocaine Cream [Emla 1 applic TOPICAL DAILY PRN 05/01/20 01/18/23 History Cream 2.5%/2.5%] calcitrioL [Calcitriol] 3 mcg PO MOWEFR 10/29/21 01/18/23 History hydrOXYzine HCL [Atarax] 25 mg PO TID PRN 10/29/21 01/18/23 History Acetaminophen Tab [Tylenol] 1,000 mg PO Q6HR PRN 05/26/22 01/18/23 History Calcium Acetate [PhosLo] 667 - 1,334 mg PO BID PRN 05/26/22 01/18/23 History NIFEdipine [Procardia XL] 90 mg PO DAILY 01/18/23 01/18/23 History Pantoprazole [Protonix] 40 mg PO DAILY PRN 01/18/23 01/18/23 History carvediloL [Coreg] 12.5 mg PO BID 01/18/23 01/18/23 History Allergies Allergy/AdvReac Type Severity Reaction Status Date / Time vancomycin Allergy Anaphylaxis Verified 01/18/23 16:59 hydralazine AdvReac Rapid Verified 01/18/23 16:59 Heart Rate WHEN GIVEN THROUGH IV Physical Exam Vitals: Vital Signs Temp Pulse Pulse Resp BP BP Pulse Ox 01/19/23 12:00 82 152/63 92 L 01/19/23 11:54 76 01/19/23 11:44 76 01/19/23 08:00 97.8 F 77 16 159/65 100 01/19/23 04:00 83 16 162/101 93 L 01/19/23 02:12 168/107 01/19/23 02:00 83 18 01/19/23 00:00 83 18 166/103 100 01/18/23 22:00 98.6 F 100 18 165/107 99 01/18/23 20:48 94 18 157/103 97 01/18/23 20:12 100 01/18/23 20:02 96 01/18/23 16:03 103 H 18 157/108 98 Intake and Output 01/18/23 01/19/23 01/19/23 22:59 06:59 14:59 Intake Total 0 Output Total 0 Balance 0 0 Intake: Oral 0 Output: Urine 0 Other: Weight 56 kg 56.1 kg Patient is awake, comfortable, in no acute distress Alert oriented 3 Examination of the heart S1 and S2 Examination of the lungs bilateral breath sounds are heard Abdomen is soft nontender Examination of lower extremities shows trace edema bilaterally [employer]IAN exam grossly intact Results - Lab Results Most recent lab results Calcium 7.4 mg/dL (8.4-10.2) L 01/19/23 08:10 Magnesium 2.0 mg/dL (1.6-2.3) 01/18/23 12:54 01/19/23 08:10 01/19/23 08:10 Assessment and Plan Assessment: 1. End-stage renal disease on hemodialysis on a Wednesday schedule 2. Volume overload 3. Hypertension uncontrolled partly volume sensitive 4. CK D mineral bone disorder Plan: Hemodialysis today following which patient can be discharged and she will have her next treatment of hemodialysis tomorrow either inpatient if she is not discharged or outpatient. Patient is advised to maintain salt and fluid restriction. Dry weight will be adjusted as outpatient.
--- NOTE | 2023-01-19 13:13 | CA ---
Transthoracic Echo Report Name: Rosi Winslow Age: 32 Gender: F : 1990 Exam Date: 01/19/2023 09:00 Exam Location: [facility] Ht (in): 62 Wt (lb): 123 Ordering Physician: Agnieszka Travis MD Attending/Referring Phys: [employer] Tender Keesha Keith RDCS Procedure CPT: Indications: chf Cardiac Hx: Technical Quality: Good Contrast 1: Total Dose (mL): Contrast 2: Total Dose (mL): MEASUREMENTS (Male / Female) Normal Values 2D ECHO LV Diastolic Diameter PLAX 5.3 cm 4.2 - 5.9 / 3.9 - 5.3 cm LV Systolic Diameter PLAX 4.0 cm IVS Diastolic Thickness 1.8 cm 0.6 - 1.0 / 0.6 - 0.9 cm LVPW Diastolic Thickness 1.6 cm 0.6 - 1.0 / 0.6 - 0.9 cm LV Relative Wall Thickness 0.7 RV Internal Dim ED PLAX 3.4 cm LVOT Diameter 2.0 cm LA Systolic Diameter LX 4.8 cm 3.0 - 4.0 / 2.7 - 3.8 cm LV Diastolic Volume MOD BP 145.7 cm??? 67 - 155 / 56 - 104 cm??? LV Systolic Volume MOD BP 78.2 cm??? - / 19 - 49 cm??? LV Ejection Fraction MOD BP 46.4 % >= 55 % LV Cardiac Index MOD BP 3232.7 cm???/min???m??? LV Diastolic Volume MOD 4C 124.9 cm??? LV Systolic Volume MOD 4C 74.6 cm??? LV Ejection Fraction MOD 4C 40.3 % LV Cardiac Index MOD 4C 2405.5 cm???/min???m??? LV Diastolic Length 4C 8.2 cm LV Systolic Length 4C 7.3 cm LV Diastolic Volume MOD 2C 158.7 cm??? LV Systolic Volume MOD 2C 78.3 cm??? LV Ejection Fraction MOD 2C 50.7 % LV Cardiac Index MOD 2C 3847.1 cm???/min???m??? LV Diastolic Length 2C 8.9 cm LV Systolic Length 2C 7.6 cm LA Volume 78.1 cm??? 18 - 58 / 22 - 52 cm??? DOPPLER AV Peak Velocity 197.3 cm/s AV Peak Gradient 15.6 mmHg AV Mean Velocity 131.3 cm/s AV Mean Gradient 8.0 mmHg AV Velocity Time Integral 38.2 cm AI Peak Velocity 503.0 cm/s AI Peak Gradient 101.2 mmHg AI Pressure Half Time 632.8 ms LVOT Peak Velocity 143.2 cm/s LVOT Peak Gradient 8.2 mmHg AV Area Cont Eq pk 2.2 cm??? MV Peak Velocity 221.7 cm/s MV Peak Gradient 19.7 mmHg MV Mean Velocity 101.4 cm/s MV Mean Gradient 5.6 mmHg MV Velocity Time Integral 47.7 cm MV Area PHT 4.2 cm??? Mitral E Point Velocity 137.5 cm/s Mitral A Point Velocity 57.2 cm/s Mitral E to A Ratio 2.4 MV Deceleration Time 181.1 ms MV E' Velocity 4.9 cm/s Mitral E to MV E' Ratio 28.3 TR Peak Velocity 402.3 cm/s TR Peak Gradient 64.7 mmHg Right Ventricular Systolic Press 68.7 mmHg PV Peak Velocity 150.2 cm/s PV Peak Gradient 9.0 mmHg PI Peak Gradient 55.1 mmHg FINDINGS Left Ventricle Left ventricular ejection fraction is estimated at 40-45 %. Severely increased septal wall thickness. Severely increased posterior wall thickness. Severely increased left ventricular diastolic volume. Severely increased left ventricular systolic volume. Mildly decreased left ventricular ejection fraction. Right Ventricle Mild right ventricular dilatation. Severe pulmonary hypertension. Right ventricular systolic pressure estimated at 78 mm hg. Right Atrium Normal right atrial size. Left Atrium Severely increased left atrial diameter. Severely increased left atrial volume. Mildly increased left atrial area. Mitral Valve Structurally normal mitral valve. Mild mitral regurgitation. Aortic Valve Aortic valve not well visualized. Moderate aortic regurgitation. Tricuspid Valve Structurally normal tricuspid valve. [id number] tricuspid regurgitation. Pulmonic Valve Structurally normal pulmonic valve. Moderate pulmonic regurgitation. Pericardium Small pericardial effusion by inferior wall Aorta Normal size aortic root and proximal ascending aorta. CONCLUSIONS Severe increased left ventricular wall thickness Left ventricular ejection fraction 40-45% with global hypokinesis Moderately dilated left atrium Mild mitral regurgitation Moderate aortic regurgitation Moderate to severe tricuspid regurgitation Moderate pulmonic regurgitation Small pericardial effusion without tamponade Previewed by: Dr. Carlos Enrique Avina DO (Electronically Signed) Final Date: 19 January 2023 13:12
--- NOTE | 2023-01-19 13:59 | P.CRDCN ---
History of Present Illness Consult date: 01/19/23 Consult reason: chest pain (Pulmonary edema) History of present illness: HISTORY OF PRESENT ILLNESS: This is a 32-year-old female with a past medical history significant for end- stage renal disease on hemodialysis Wednesday, polycystic kidney disease, previous kidney transplant with rejection, history of cardiac myopathy with improved EF, congestive heart failure, and pulmonary hypertension, chronically elevated troponins. Patient follows in the office with Dr. Larios but has not been seen since October 2021. We have been asked to see the patient in consultation for chest pain and pulmonary edema. Patient states she developed right-sided chest pain and felt like her heart was skipping beats. She states her last hemodialysis was yesterday. Also her blood pressure was elevated at home. On presentation, blood pressure 157/108. Blood pressure is 152/63, heart rate in the 70s and 80s EKG reveals sinus rhythm with chronic twave inversion at 90 bpm Chest xray correlate for underlying congestive failure versus pneumonia. WBC 3.3, hemoglobin 9.8, platelet count 111. Sodium 136, potassium 4.8, BUN 29 creatinine 7.59. Troponin 0.056, 0.058 and 0.066. ProBNP 72,300. Influenza A, influenza B, RSV, Covid 19 not detected. Current home cardiac medications include carvedilol 12.5 mg twice a day, hydralazine 100 mg 3 times daily, Procardia XL 90 mg daily Most recent echocardiogram obtained in June 2022 revealed ejection fraction 50%, severe pulmonary hypertension, [id number] mitral regurgitation Echocardiogram 01/19/2023 reveals EF 40-45% with global hypokinesis. Severe increased left ventricular wall thickness. Moderately dilated left atrium. Mild MR, moderate AR, moderate to severe TR, moderate pulmonary regurgitation. Small pericardial effusion without tamponade REVIEW OF SYSTEMS: At the time of my exam: CONSTITUTIONAL: Denies fever or chills. HEENT: Denies blurred vision, vision changes, or eye pain. Denies hemoptysis CARDIOVASCULAR: Denies chest pain. Denies orthopnea. Denies PND. Denies palpitations RESPIRATORY: Denies shortness of breath. GASTROINTESTINAL: Denies abdominal pain. Denies nausea or vomiting. HEMATOLOGIC: Denies bleeding disorders. GENITOURINARY: Denies any blood in urine. SKIN: Denies pruitis. Denies rash. PHYSICAL EXAM: VITAL SIGNS: Reviewed. GENERAL: Well-developed in no acute distress. HEENT: Head is normocephalic. Pupils are equal, round. Sclerae anicteric. Mucous membranes of the mouth are moist. Neck supple. No JVD or thyromegaly LUNGS: Respirations even and unlabored. Lungs essentially clear to auscultation bilaterally. HEART: Regular rate and rhythm. S1 and S2 heard. ABDOMEN: Soft. Nondistended. Nontender. EXTREMITIES: Normal range of motion. No clubbing or cyanosis. Peripheral pulses intact. No lower extremity edema NEUROLOGIC: Awake and alert. Oriented x 3. ASSESSMENT: Chest pain, acute coronary syndrome ruled out Hypertension, uncontrolled End-stage renal disease on hemodialysis Abnormal troponins, secondary to end-stage renal disease, no evidence of acute coronary syndrome. Troponins are chronically elevated. History of previous kidney transplant with rejection Valvular heart disease Pulmonary hypertension Chronic congestive heart failure with preserved ejection fraction, currently euvolemic PLAN: Increase carvedilol to 37.5 mg twice a day Continue additional home cardiac medications Patient is currently stable from a cardiac standpoint Further recommendations pending patient's course Nurse practitioner note has been reviewed by physician. Signing provider agrees with the documented findings, assessment, and plan of care. 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 History of Any Multi-Drug Resistant Organisms: None Reported Past Surgical History: Heart Catheterization, Hernia Repair Additional Past Surgical History / Comment(s): 06/14/18 cardiac cath at [facility] to check coronary pressures, 11/15/09 Failed kidney transplant R pelvis, dialysis catheter in and out, current L upper arm AVG, supra pubic hernia repair, transvaginal mesh, wisdom teeth extraction with anesthesia, 2016 failed kidney transplant Past Anesthesia/Blood Transfusion Reactions: No Reported Reaction Additional Past Anesthesia/Blood Transfusion Reaction / Comment(s): Pt has received blood in past without reaction. Past Psychological History: Anxiety, Depression Additional Psychological History / Comment(s): Pt resides with family. She is independent. She drives. She is disabled. She states she has anxiety and depression but no suicidal thoughts/ idealations or plans. Smoking Status: Former smoker Past Alcohol Use History: None Reported Additional Past Alcohol Use History / Comment(s): Pt states she started smoking socially as a teen and quit smoking in 2015. Past Drug Use History: None Reported, Marijuana Additional Drug Use History / Comment(s): Couple times a week. - Past Family History Father Family Medical History: No Reported History Additional Family Medical History / Comment(s): Father is healthy and is 62 yrs old. Mother Family Medical History: No Reported History Additional Family Medical History / Comment(s): Mother is healthy and is 60 yrs old. Medications and Allergies Home Medications Medication Instructions Recorded Confirmed Type Albuterol Sulfate [Proair Hfa] 2 puff INHALATION RT-Q6H PRN 01/22/16 01/18/23 History hydrALAZINE HCL [Apresoline] 100 mg PO TID 11/16/18 01/18/23 History Cinacalcet HCl [Sensipar] 120 mg PO MOWEFR 02/26/19 01/18/23 History Calcium Acetate [PhosLo] 2,668 mg PO TID-W/MEALS 05/01/20 01/18/23 History Lidocaine-Prilocaine Cream [Emla 1 applic TOPICAL DAILY PRN 05/01/20 01/18/23 History Cream 2.5%/2.5%] calcitrioL [Calcitriol] 3 mcg PO MOWEFR 10/29/21 01/18/23 History hydrOXYzine HCL [Atarax] 25 mg PO TID PRN 10/29/21 01/18/23 History Acetaminophen Tab [Tylenol] 1,000 mg PO Q6HR PRN 05/26/22 01/18/23 History Calcium Acetate [PhosLo] 667 - 1,334 mg PO BID PRN 05/26/22 01/18/23 History NIFEdipine [Procardia XL] 90 mg PO DAILY 01/18/23 01/18/23 History Pantoprazole [Protonix] 40 mg PO DAILY PRN 01/18/23 01/18/23 History carvediloL [Coreg] 12.5 mg PO BID 01/18/23 01/18/23 History Allergies Allergy/AdvReac Type Severity Reaction Status Date / Time vancomycin Allergy Anaphylaxis Verified 01/18/23 16:59 hydralazine AdvReac Rapid Verified 01/18/23 16:59 Heart Rate WHEN GIVEN THROUGH IV Physical Exam Vitals: Vital Signs Temp Pulse Pulse Resp BP BP Pulse Ox 01/19/23 04:00 83 16 162/101 93 L 01/19/23 02:12 168/107 01/19/23 02:00 83 18 01/19/23 00:00 83 18 166/103 100 01/18/23 22:00 98.6 F 100 18 165/107 99 01/18/23 20:48 94 18 157/103 97 01/18/23 20:12 100 01/18/23 20:02 96 01/18/23 16:03 103 H 18 157/108 98 01/18/23 11:16 98.2 F 89 20 154/86 98 Intake and Output 01/18/23 01/19/23 01/19/23 22:59 06:59 14:59 Output Total 0 Balance 0 Output: Urine 0 Other: Weight 56 kg 56.1 kg Results 01/19/23 08:10 01/19/23 08:10 Cardiac Enzymes 01/18/23 01/18/23 01/18/23 Range/Units 12:54 12:54 17:36 AST 26 (14-36) U/L Troponin I 0.056 H* 0.058 H* (0.000-0.034) ng/mL 01/18/23 Range/Units 20:45 AST (14-36) U/L Troponin I 0.066 H* (0.000-0.034) ng/mL Coagulation 01/18/23 Range/Units 12:54 PT 11.3 (9.0-12.0) sec APTT 24.6 (22.0-30.0) sec CBC 01/18/23 01/19/23 Range/Units 12:54 08:10 WBC 3.7 L 3.3 L (3.8-10.6) k/uL RBC 3.48 L 3.21 L (3.80-5.40) m/uL Hgb 10.8 L 9.8 L (11.4-16.0) gm/dL Hct 33.0 L 31.0 L (34.0-46.0) % Plt Count 131 L 111 L (150-450) k/uL Comprehensive Metabolic Panel 01/18/23 01/19/23 Range/Units 12:54 08:10 Sodium 137 136 L (137-145) mmol/L Potassium 3.8 4.8 (3.5-5.1) mmol/L Chloride 97 L 98 (98-107) mmol/L Carbon Dioxide 34 H 30 (22-30) mmol/L BUN 20 H 29 H (7-17) mg/dL Creatinine 5.04 H 7.59 H* (0.52-1.04) mg/dL Glucose 93 84 (74-99) mg/dL Calcium 8.3 L 7.4 L (8.4-10.2) mg/dL AST 26 (14-36) U/L ALT 17 (4-34) U/L Alkaline Phosphatase 75 (38-126) U/L Total Protein 7.1 (6.3-8.2) g/dL Albumin 3.9 (3.5-5.0) g/dL Current Medications Generic Name Dose Route Start Last Admin Trade Name Freq PRN Reason Stop Dose Admin Acetaminophen 650 mg 01/18/23 15:35 01/19/23 02:07 Acetaminophen Tab 325 Mg Tab PO 650 mg Q6HR PRN Administration Mild Pain or Fever > 100.5 Hydrocodone Bitart/Acetaminophen 1 each 01/18/23 21:09 01/19/23 09:30 Hydrocodone/Apap 5-325mg 1 Each Tab PO 1 each Q8HR PRN Administration Pain Albuterol Sulfate 2.5 mg 01/18/23 21:17 Albuterol Nebulized 2.5 Mg/3 Ml INHALATION RT-QID PRN Shortness Of Breath Or Wheezing Albuterol/Ipratropium 3 ml 01/18/23 20:00 01/19/23 08:53 Ipratropium-Albuterol 3 Ml Neb INHALATION Not Given RT-TID SELENE Calcitriol 3 mcg 01/20/23 09:00 Calcitriol 0.25 Mcg Cap PO MoWeFr SELENE Calcium Acetate 2,668 mg 01/19/23 07:30 01/19/23 09:26 Calcium Acetate 667 Mg Tab PO Not Given TID-W/MEALS SELENE Carvedilol 37.5 mg 01/19/23 20:00 Carvedilol 12.5 Mg Tab PO BID-W/MEALS [facility] Carvedilol 12.5 mg 01/19/23 09:46 Carvedilol 12.5 Mg Tab PO 01/19/23 09:47 ONCE STA Cinacalcet 120 mg 01/20/23 09:00 Cinacalcet 30 Mg Tab PO MoWeFr [facility] Hydralazine HCl 100 mg 01/18/23 22:00 01/19/23 09:30 Hydralazine Hcl 50 Mg Tab PO 100 mg TID SELENE Administration Hydroxyzine HCl 25 mg 01/18/23 21:15 Hydroxyzine Hcl 25 Mg Tab PO TID PRN Itching Naloxone HCl 0.2 mg 01/18/23 15:35 Naloxone 0.4 Mg/Ml 1 Ml Vial IV Q2M PRN Opioid Reversal Nifedipine 90 mg 01/19/23 09:00 01/19/23 09:30 Nifedipine Xl 90 Mg Tab.Er.24 PO 90 mg DAILY [facility] Administration Pantoprazole Sodium 40 mg 01/18/23 21:16 Pantoprazole 40 Mg Tablet PO ONCE PRN Heartburn Intake and Output 01/18/23 01/19/23 01/19/23 22:59 06:59 14:59 Output Total 0 Balance 0 Output: Urine 0 Other: Weight 56 kg 56.1 kg 01/19/23 08:10 01/19/23 08:10
[2023-01-19] MEDS: carvediloL 12.5 MG TAB PO SCH (19:29)
--- NOTE | 2023-01-20 05:28 | PN ---
PROGRESS NOTE DATE OF SERVICE: 01/19/2023 SUBJECTIVE: This is a 32-year-old woman, who was admitted with shortness of breath, had possibly CHF at this time. A 2D echo with Doppler showed ejection fraction of about 40% to 45%. Nephrology is following the patient closely. The patient had dialysis yesterday. OBJECTIVE: VITAL SIGNS: Pulse is 82, blood pressure 115/65, respirations 20. HEENT: Conjunctivae are normal. NECK: No jugular venous distention. CARDIOVASCULAR: S1 and S2 muffled. RESPIRATORY: Few scattered rhonchi. ABDOMEN: Soft. NERVOUS SYSTEM: Nonfocal. LABORATORY DATA: Reviewed. ASSESSMENT: 1. Shortness of breath, possible congestive heart failure acute exacerbation. 2. End-stage renal disease, on hemodialysis. 3. Troponin 0.05, indeterminate. 4. History of asthma. 5. Hypertension. 6. Acute myocardial infarction. RECOMMENDATIONS AND DISCUSSION: Recommend to continue current medications. Continue symptomatic treatment. Cardiology has seen the patient and thought abnormal troponins are due to end-stage renal disease. No evidence of acute coronary syndrome. Further recommendations to follow. Prognosis is guarded. MMODL / IJN: [id number] /
[2023-01-20] MEDS ORDERED: ONDANSETRON 4 MG/2 ML VIAL IVP PRN (05:56)
[2023-01-20] MEDS: HYDROcodone/APAP 5-325MG 1 EACH TAB PO PRN (06:35)
[2023-01-20] MEDS: CALCIUM ACETATE 667 MG TAB PO SCH ×2 (06:35→13:52)
[2023-01-20] MEDS: carvediloL 12.5 MG TAB PO SCH (06:35)
[2023-01-20 07:55] LABS: Anisocytosis Slight; Basophils % (A) 1 %; Eosinophils # (A) 0.2 k/uL (0-0.7); Eosinophils % (A) 5 %; HCT 32.5 % (34.0-46.0); HGB 10.2 gm/dL (11.4-16.0); Hypochromasia Moderate; Lymphocytes # (A) 0.5 k/uL (1.0-4.8); Lymphocytes % (A) 10 %; MCH 30.3 pg (25.0-35.0); MCHC 31.4 g/dL (31.0-37.0); MCV 96.5 fL (80.0-100.0); Macrocytosis Slight; Mean Platelet Volume 10.6; Monocytes # (A) 0.2 k/uL (0-1.0); Monocytes % (A) 4 %; Neutrophils # (A) 3.8 k/uL (1.3-7.7); Neutrophils % (A) 80 %; RBC 3.37 m/uL (3.80-5.40); RDW 17.9 % (11.5-15.5); WBC 4.7 k/uL (3.8-10.6)
[2023-01-20 08:27] LABS: African American GFR (CKD) 11 (>60 ml/min/1.73 sqM); Anion Gap 7 mmol/L; Blood Urea Nitrogen 20 mg/dL (7-17); Calcium 7.9 mg/dL (8.4-10.2); Carbon Dioxide 30 mmol/L (22-30); Chloride 94 mmol/L (98-107); Glucose 83 mg/dL (74-99); Non-African American GFR(CKD) 10 (>60 ml/min/1.73 sqM); Potassium 4.3 mmol/L (3.5-5.1); Sodium 131 mmol/L (137-145)
[2023-01-20] MEDS ORDERED: CINACALCET 30 MG TAB PO SCH (09:00)
[2023-01-20] MEDS: IPRATROPIUM-ALBUTEROL 3 ML NEB INHALATION SCH ×2 (09:06→11:49)
[2023-01-20 10:48] LABS: Platelet Count 98 k/uL (150-450)
--- NOTE | 2023-01-20 11:18 | P.PN ---
Subjective Progress Note Date: 01/20/23 HISTORY OF PRESENT ILLNESS: This is a 32-year-old female with a past medical history significant for end- stage renal disease on hemodialysis Wednesday, polycystic kidney disease, previous kidney transplant with rejection, history of cardiac myopathy with improved EF, congestive heart failure, and pulmonary hypertension, chronically elevated troponins. Patient follows in the office with Dr. Larios but has not been seen since October 2021. We have been asked to see the patient in consultation for chest pain and pulmonary edema. Patient states she developed right-sided chest pain and felt like her heart was skipping beats. She states her last hemodialysis was yesterday. Also her blood pressure was elevated at home. On presentation, blood pressure 157/108. Blood pressure is 152/63, heart rate in the 70s and 80s EKG reveals sinus rhythm with chronic twave inversion at 90 bpm Chest xray correlate for underlying congestive failure versus pneumonia. WBC 3.3, hemoglobin 9.8, platelet count 111. Sodium 136, potassium 4.8, BUN 29 creatinine 7.59. Troponin 0.056, 0.058 and 0.066. ProBNP 72,300. Influenza A, influenza B, RSV, Covid 19 not detected. Current home cardiac medications include carvedilol 12.5 mg twice a day, hydralazine 100 mg 3 times daily, Procardia XL 90 mg daily Most recent echocardiogram obtained in June 2022 revealed ejection fraction 50%, severe pulmonary hypertension, [id number] mitral regurgitation Echocardiogram 01/19/2023 reveals EF 40-45% with global hypokinesis. Severe increased left ventricular wall thickness. Moderately dilated left atrium. Mild MR, moderate AR, moderate to severe TR, moderate pulmonary regurgitation. Small pericardial effusion without tamponade 01/20 Patient is seen today in follow-up. She is currently on Coreg 37.5 mg twice daily and her blood pressure remains elevated. It does not seem to have improve d with systolic 161/95. She states that she normally runs this high at home. I asked patient regarding potassium and she has had a history of heart attacks at all just maybe why she is not on an ANI inhibitor or ARB. Patient is scheduled for hemodialysis today. PHYSICAL EXAM: VITAL SIGNS: Reviewed. GENERAL: Well-developed in no acute distress. HEENT: Head is normocephalic. Pupils are equal, round. Sclerae anicteric. Mucous membranes of the mouth are moist. Neck supple. No JVD or thyromegaly LUNGS: Respirations even and unlabored. Lungs essentially clear to auscultation bilaterally. HEART: Regular rate and rhythm. S1 and S2 heard. ABDOMEN: Soft. Nondistended. Nontender. EXTREMITIES: Normal range of motion. No clubbing or cyanosis. Peripheral pulses intact. No lower extremity edema NEUROLOGIC: Awake and alert. Oriented x 3. ASSESSMENT: Chest pain, acute coronary syndrome ruled out Hypertension, uncontrolled End-stage renal disease on hemodialysis Abnormal troponins, secondary to end-stage renal disease, no evidence of acute coronary syndrome. Troponins are chronically elevated. History of previous kidney transplant with rejection Valvular heart disease Pulmonary hypertension Chronic congestive heart failure with preserved ejection fraction, currently euvolemic PLAN: Continue higher dose of carvedilol 37.5 mg twice a day Continue additional home cardiac medications Will not make further adjustments on blood pressure medications today as she is scheduled for hemodialysis but would recommend increasing Procardia to 60 mg twice daily for total of 120 mg daily and may consider increasing Coreg to 50 mg twice daily Patient is currently stable from a cardiac standpoint Cardiology will follow on an as-needed basis. Please reconsult for any new concerns. Nurse practitioner note has been reviewed by physician. Signing provider agrees with the documented findings, assessment, and plan of care. Objective - Vital Signs Vital signs: Vital Signs Temp 97.4 F L 01/20/23 08:00 Pulse 81 01/20/23 08:00 Resp 16 01/20/23 08:00 BP 161/95 01/20/23 08:00 Pulse Ox 93 L 01/20/23 08:00 FiO2 21 01/19/23 20:40 Intake & Output 01/19/23 01/20/23 01/20/23 18:59 06:59 18:59 Intake Total 480 500 Output Total 3500 Balance 480 -3000 Intake: Oral 480 Hemodialysis 500 Output: Hemodialysis 3500 - Labs CBC & Chem 7: 01/20/23 07:23 01/20/23 07:23 Labs: Abnormal Lab Results - Last 24 Hours (Table) 01/19/23 01/19/23 01/20/23 Range/Units 08:10 08:10 07:23 WBC 3.3 L (3.8-10.6) k/uL RBC 3.21 L (3.80-5.40) m/uL Hgb 9.8 L (11.4-16.0) gm/dL Hct 31.0 L (34.0-46.0) % RDW 18.3 H (11.5-15.5) % Plt Count 111 L (150-450) k/uL Lymphocytes # 0.6 L (1.0-4.8) k/uL Sodium 136 L 131 L (137-145) mmol/L Chloride 94 L (98-107) mmol/L BUN 29 H 20 H (7-17) mg/dL Creatinine 7.59 H* 5.54 H (0.52-1.04) mg/dL Calcium 7.4 L 7.9 L (8.4-10.2) mg/dL
[2023-01-20] MEDS: hydrALAZINE HCL 50 MG TAB PO SCH (11:27)
[2023-01-20] MEDS: NIFEdipine XL 90 MG TAB.ER.24 PO SCH (11:27)
--- NOTE | 2023-01-20 11:34 | P.PN ---
Subjective Patient is seen in follow-up for end-stage renal disease. She is maintained on hemodialysis on Wednesday schedule. Tolerating dialysis well. Denies chest pain or shortness of breath. Vital signs are stable. Blood pressure on the higher side. General: No acute distress. HEENT: Head exam is unremarkable. LUNGS: No audible rhonchi or wheezes. HEART: Rate and Rhythm are regular. ABDOMEN: Nontender. EXTREMITITES: No edema. Objective - Vital Signs Vital signs: Vital Signs Temp 97.4 F L 01/20/23 08:00 Pulse 81 01/20/23 08:00 Resp 16 01/20/23 08:00 BP 161/95 01/20/23 08:00 Pulse Ox 93 L 01/20/23 08:00 FiO2 21 01/19/23 20:40 Intake & Output 01/19/23 01/20/23 01/20/23 18:59 06:59 18:59 Intake Total 480 500 Output Total 3500 Balance 480 -3000 Intake: Oral 480 Hemodialysis 500 Output: Hemodialysis 3500 - Labs CBC & Chem 7: 01/20/23 07:23 01/20/23 07:23 Labs: Abnormal Lab Results - Last 24 Hours (Table) 01/20/23 01/20/23 Range/Units 07:23 07:23 RBC 3.37 L (3.80-5.40) m/uL Hgb 10.2 L (11.4-16.0) gm/dL Hct 32.5 L (34.0-46.0) % RDW 17.9 H (11.5-15.5) % Plt Count 98 L (150-450) k/uL Lymphocytes # 0.5 L (1.0-4.8) k/uL Sodium 131 L (137-145) mmol/L Chloride 94 L (98-107) mmol/L BUN 20 H (7-17) mg/dL Creatinine 5.54 H (0.52-1.04) mg/dL Calcium 7.9 L (8.4-10.2) mg/dL Assessment and Plan Plan: Assessment: 1. End-stage renal disease maintained on hemodialysis on Wednesday schedule. 2. Volume overload. Improved with ultrafiltration. 3. Anemia of chronic disease. Hemoglobin stable. 4. Chronic kidney disease mineral bone disease maintained on calcitriol, PhosLo and Sensipar. 5. Hypertension with chronic kidney disease. 6. Acute on chronic systolic CHF with ejection fraction of 40-45% with moderate aortic regurgitation, pulmonic regurgitation, moderate to severe tricuspid regurgitation. Plan: Currently seen while undergoing hemodialysis. Increase dose of nifedipine to 60 mg twice daily. Advised low salt diet and less than 50 oz fluid restriction per day.
[2023-01-20 19:01] VITALS: BP 176/101; PULSE 86; RESP 16; TEMP 97.6
--- NOTE | 2023-01-21 14:59 | P.DS ---
Providers Date of admission: 01/19/23 14:37 Expected date of discharge: 01/20/23 Attending physician: Gregory Albert MD Consults: 01/18/23 15:35 Consult Physician Routine Consulting Provider: Luke Rodriguez Consult Reason/Comments: cp, pulm edema Do you want consulting provider notified?: Yes Consult Physician Urgent Consulting Provider: Robin Thompson Consult Reason/Comments: Pulmonary edema with ESRD Do you want consulting provider notified?: Yes Primary care physician: Karo Alicea [facility] Course: Final diagnosis Shortness of breath, possible congestive heart failure acute exacerbation End-stage renal disease on hemodialysis Troponin, 0.05, indeterminant History of asthma, not an exacerbation Hypertension, uncontrolled History of acute myocardial infarction Full code Discharge disposition Patient is being discharged in a stable condition with guarded prognosis to home. Patient will follow-up with Dr. Thaddeus Travis in the outpatient setting upon discharge. Patient is to continue with hemodialysis as scheduled. Total time taken is greater than 35 minutes. Hospital course This is a 32-year-old female who was recently admitted with palpitations and inc reased shortness of breath being closely monitored. Cardiology along with nephrology following as patient has end-stage renal disease maintained on hemodialysis. Blood pressures have been uncontrolled and medications were adjusted. Patient to receive dialysis prior to discharge again today. Patient has been cleared by consultations for discharge with close outpatient follow-up. Please refer to other consultation notes for further HPI. Currently no reports of chest pain, shortness of breath, or palpitations. Patient is afebrile. No reports of nausea or vomiting and patient is tolerating diet. Patient will be discharged home today. Guarded prognosis and high risk for readmissions given patient's significant comorbidities. Physical exam: Gen: This is a 32-year-old female who is awake, alert and oriented 3, well- developed, well-nourished HEENT: Head is atraumatic, normocephalic. Pupils equal, round. Sclerae is anicteric. NECK: Supple. No JVD. No lymphadenopathy. No thyromegaly. LUNGS: Diminished breath sounds bilaterally with some scattered rhonchi. No intercostal retractions. HEART: Regular rate and rhythm. No murmur. ABDOMEN: Soft. Bowel sounds are present. No masses. No tenderness. EXTREMITIES: No pedal edema. No calf tenderness. NEUROLOGICAL: Patient is awake, alert and oriented x3. Cranial nerves 2 through 12 are grossly intact. Please refer to medication reconciliation sheet for a list of medications. The impression and plan of care has been dictated by Mona Bhatt, Nurse Practitioner as directed. Dr. Thaddeus MD I have performed a history and examination and MDM of this patient, discussed the same with the dictator, and agree with the dictator's assessment and plan as written ,documented as a scribe. Based on total visit time, I have performed more than 50% of the visit. Patient Condition at Discharge: Stable Plan - Discharge Summary Discharge Rx Participant: No New Discharge Prescriptions: New carvediloL [Coreg*] 37.5 mg PO BID-W/MEALS 30 Days #180 tab NIFEdipine [NIFEdipine ER (Osmotic)] 60 mg PO BID 30 Days #60 tab HYDROcodone/APAP 5-325MG [Munden 5-325] 1 tab PO Q6HR PRN #4 tab PRN Reason: Pain Continue Albuterol Sulfate [Proair Hfa] 2 puff INHALATION RT-Q6H PRN PRN Reason: Shortness Of Breath hydrALAZINE HCL [Apresoline] 100 mg PO TID Cinacalcet HCl [Sensipar] 120 mg PO MOWEFR Lidocaine-Prilocaine Cream [Emla Cream 2.5%/2.5%] 1 applic TOPICAL DAILY PRN PRN Reason: PORT ACCESS Calcium Acetate [PhosLo] 2,668 mg PO TID-W/MEALS hydrOXYzine HCL [Atarax] 25 mg PO TID PRN PRN Reason: Anxiety Acetaminophen Tab [Tylenol] 1,000 mg PO Q6HR PRN PRN Reason: Pain Or Fever > 100.5 Pantoprazole [Protonix] 40 mg PO DAILY PRN PRN Reason: Gi Upset calcitrioL [Calcitriol] 3 mcg PO MOWEFR Calcium Acetate [PhosLo] 667 - 1,334 mg PO BID PRN PRN Reason: WITH SNACKS Discontinued NIFEdipine [Procardia XL] 90 mg PO DAILY carvediloL [Coreg] 12.5 mg PO BID Discharge Medication List Albuterol Sulfate [Proair Hfa] 2 puff INHALATION RT-Q6H PRN 01/22/16 [History] hydrALAZINE HCL [Apresoline] 100 mg PO TID 11/16/18 [History] Cinacalcet HCl [Sensipar] 120 mg PO MOWEFR 02/26/19 [History] Calcium Acetate [PhosLo] 2,668 mg PO TID-W/MEALS 05/01/20 [History] Lidocaine-Prilocaine Cream [Emla Cream 2.5%/2.5%] 1 applic TOPICAL DAILY PRN 05/01/20 [History] calcitrioL [Calcitriol] 3 mcg PO MOWEFR 10/29/21 [History] hydrOXYzine HCL [Atarax] 25 mg PO TID PRN 10/29/21 [History] Acetaminophen Tab [Tylenol] 1,000 mg PO Q6HR PRN 05/26/22 [History] Calcium Acetate [PhosLo] 667 - 1,334 mg PO BID PRN 05/26/22 [History] Pantoprazole [Protonix] 40 mg PO DAILY PRN 01/18/23 [History] HYDROcodone/APAP 5-325MG [Munden 5-325] 1 tab PO Q6HR PRN #4 tab 01/20/23 [Rx] NIFEdipine [NIFEdipine ER (Osmotic)] 60 mg PO BID 30 Days #60 tab 01/20/23 [Rx] carvediloL [Coreg*] 37.5 mg PO BID-W/MEALS 30 Days #180 tab 01/20/23 [Rx] Follow up Appointment(s)/Referral(s): Karo Alicea MD [Primary Care Provider] - 1-2 days Patient Instructions/Handouts: Pulmonary Edema (DC), Chronic Hypertension (DC) Discharge Disposition: HOME SELF-CARE
== END 2023-01-20 16:22 | disposition home or self-care (01) | DRG 291 ==
LOC: EC 11:08 → 3SCARD 15:35 → OBSVTOIN 01-19 14:37
PROVIDERS: ADMIT Internal Medicine; ATTEND Internal Medicine
PROC: 5A1D70Z Performance of Urinary Filtration, Intermittent, Less than 6 Hours Per Day (ICD-10-PCS; principal; 2023-01-20)
DX: I13.2 Hypertensive heart and chronic kidney disease with heart failure and with stage 5 chronic kidney disease, or end stage renal disease (principal); I50.23 Acute on chronic systolic (congestive) heart failure; N18.6 End stage renal disease; I31.39 Other pericardial effusion (noninflammatory); Q61.3 Polycystic kidney, unspecified; T86.11 Kidney transplant rejection; R52 Pain, unspecified; Z20.822 Contact with and (suspected) exposure to COVID-19; E11.22 Type 2 diabetes mellitus with diabetic chronic kidney disease; D63.8 Anemia in other chronic diseases classified elsewhere; I08.3 Combined rheumatic disorders of mitral, aortic and tricuspid valves; I27.20 Pulmonary hypertension, unspecified; M89.8X9 Other specified disorders of bone, unspecified site; Z99.2 Dependence on renal dialysis; Z79.899 Other long term (current) drug therapy; Z88.1 Allergy status to other antibiotic agents; Z88.8 Allergy status to other drugs, medicaments and biological substances; I25.2 Old myocardial infarction; Z87.891 Personal history of nicotine dependence
CPT/HCPCS: 36415; 71046; 80048; 80053; 83605; 83735; 83880; 84484; 85025; 85610; 85730; 87636; 90935; 93005; 93306; 94640; 94760; 99285

== ENCOUNTER 2023-02-27 13:28 | Inpatient (IN) | payer MEDICARE, OTHER ==
[2023-02-27] MEDS ORDERED: NITROGLYCERIN SL TABS 0.4 MG TAB SUBLINGUAL STA (13:48)
[2023-02-27] MEDS ORDERED: ASPIRIN 81 MG PO STA (13:48)
--- NOTE | 2023-02-27 14:00 | ED ---
General Adult HPI - General Chief complaint: Chest Pain Stated complaint: Chest Pain Time Seen by Provider: 02/27/23 13:39 Source: patient, RN notes reviewed, old records reviewed Mode of arrival: wheelchair Limitations: no limitations - History of Present Illness Initial comments: Patient is a 32-year-old female with past medical history remarkable for ESRD on hemodialysis secondary to polycystic kidney disease, cardiomyopathy, heart failure, hypertension who presents emergency Department complaining of chest pain. Pain started yesterday. Has been constant and not improved. Denies any history of cardiac stents CAD. States is identical to previous episodes which presents for chest pain. Denies missing dialysis. Has no other acute complaint s at this time. Denies nausea, vomiting, abdominal pain. States the pain as a achy sensation that radiates towards her left shoulder. Denies any cough. Endorses orthopnea. This is mildly increased lower extremity pitting edema. His no other complaints. Reevaluation at this time. States is similar to previous episodes. - Related Data Home Medications Medication Instructions Recorded Confirmed Albuterol Sulfate [Proair Hfa] 2 puff INHALATION RT-Q6H PRN 01/22/16 02/27/23 hydrALAZINE HCL [Apresoline] 100 mg PO TID 11/16/18 02/27/23 Cinacalcet HCl [Sensipar] 120 mg PO MOWEFR 02/26/19 02/27/23 Calcium Acetate [PhosLo] 2,668 mg PO TID-W/MEALS 05/01/20 02/27/23 Lidocaine-Prilocaine Cream [Emla 1 applic TOPICAL DAILY PRN 05/01/20 02/27/23 Cream 2.5%/2.5%] calcitrioL [Calcitriol] 3 mcg PO MOWEFR 10/29/21 02/27/23 hydrOXYzine HCL [Atarax] 25 mg PO TID PRN 10/29/21 02/27/23 Acetaminophen Tab [Tylenol] 1,000 mg PO Q6HR PRN 05/26/22 02/27/23 Calcium Acetate [PhosLo] 667 - 1,334 mg PO BID PRN 05/26/22 02/27/23 Pantoprazole [Protonix] 40 mg PO DAILY PRN 01/18/23 02/27/23 Ondansetron Odt [Zofran Odt] 4 mg PO Q12HR PRN 02/27/23 02/27/23 Previous Rx's Medication Instructions Recorded HYDROcodone/APAP 5-325MG [[place] 1 tab PO Q6HR PRN #4 tab 01/20/23 5-325] NIFEdipine [NIFEdipine ER 60 mg PO BID 30 Days #60 tab 01/20/23 (Osmotic)] carvediloL [Coreg*] 37.5 mg PO BID-W/MEALS 30 Days 01/20/23 #180 tab Allergies Allergy/AdvReac Type Severity Reaction Status Date / Time vancomycin Allergy Anaphylaxis Verified 02/27/23 16:26 hydralazine AdvReac Rapid Verified 02/27/23 16:26 Heart Rate WHEN GIVEN THROUGH IV Review of Systems ROS Statement: Those systems with pertinent positive or pertinent negative responses have been documented in the HPI. Review of Systems: CONST: Denies fever EYES: Denies blurry vision ENT: Denies nasal congestion C/V: Endorses chest pain RESP: Denies shortness of breath GI: Denies abdominal pain : Denies dysuria SKIN: Denies rash. MSK: Denies joint pain. NEURO: Denies headache ROS Other: All systems not noted in ROS Statement are negative. 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 History of Any Multi-Drug Resistant Organisms: None Reported Past Surgical History: Heart Catheterization, Hernia Repair Additional Past Surgical History / Comment(s): 06/14/18 cardiac cath at [facility] to check coronary pressures, 11/15/09 Failed kidney transplant R pelvis, dialysis catheter in and out, current L upper arm AVG, supra pubic hernia repair, transvaginal mesh, wisdom teeth extraction with anesthesia, 2016 failed kidney transplant Past Anesthesia/Blood Transfusion Reactions: No Reported Reaction Additional Past Anesthesia/Blood Transfusion Reaction / Comment(s): Pt has received blood in past without reaction. Past Psychological History: Anxiety, Depression Smoking Status: Former smoker Past Alcohol Use History: None Reported Past Drug Use History: None Reported, Marijuana - Past Family History Father Family Medical History: No Reported History Additional Family Medical History / Comment(s): Father is healthy and is 62 yrs old. Mother Family Medical History: No Reported History Additional Family Medical History / Comment(s): Mother is healthy and is 60 yrs old. General Exam - General Exam Comments Initial Comments: General: Appears in no acute distress. HEAD: Normal with no signs of head trauma. EYES: PERRLA, EOMI, conjunctiva normal, no discharge. ENT: Hearing grossly intact, normal oropharynx. RESPIRATORY: Clear breath sounds bilaterally. No wheezes, rales, or rhonchi. No hypoxia. No respiratory distress. C/V: Regular rate and rhythm. S1 and S2 auscultated. Peripheral pulses 2+ intact throughout. Mild symmetrical bilateral lower extremity pitting edema located mostly to the feet and ankles. Patient's left upper extremity AV fistula has a palpable thrill and audible bruit. ABD: Abd is soft, nontender, nondistended EXT: Normal range of motion, no obvious deformity SKIN: No rashes or lesions observed on exposed skin. NEURO: Alert and oriented 4. No focal deficits. Limitations: no limitations Course Vital Signs 02/27/23 02/27/23 02/27/23 13:31 15:19 15:35 Temperature 97.9 F Pulse Rate 83 76 72 Respiratory 16 18 Rate Blood Pressure 159/94 154/110 O2 Sat by Pulse 97 96 Oximetry 02/27/23 02/27/23 15:43 16:31 Temperature Pulse Rate 81 78 Respiratory 18 Rate Blood Pressure 163/103 O2 Sat by Pulse 98 Oximetry Medical Decision Making - Medical Decision Making Was pt. sent in by a medical professional or institution (, PA, B2B OUTSIDE SALES REPRESENTATIVE, urgent care, hospital, or long term...) When possible be specific @ -No Did you speak to anyone other than the patient for history (EMS, parent, family, police, friend...)? What history was obtained from this source @ -No Did you review nursing and triage notes (agree or disagree)? Why? @ -I reviewed and agree with nursing and triage notes Were old charts reviewed (outside hosp., previous admission, EMS record, old EKG, old radiological studies, urgent care reports/EKG's, long term records)? Report findings @ -Charts reviewed from December 2022 as well as August 2022 including EKGs Differential Diagnosis (chest pain, altered mental status, abdominal pain women, abdominal pain men, vaginal bleeding, weakness, fever, dyspnea, syncope, headache, dizziness, GI bleed, back pain, seizure, CVA, palpatations, mental health, musculoskeletal)? @ -Differential Chest Pain: Stable Angina, Unstable Angina, STEMI, NSTEMI Aortic Dissection, Pneumothorax, Musculoskeletal, Esophageal Spasm GERD, Cholecystitis, Pancreatitis, Zoster, this is not meant to be an all-inclusive list. EKG interpreted by me (3pts min.). @ -As above X-rays interpreted by me (1pt min.). @ -Chest x-ray reveals mild bilateral pulmonary vascular congestion. CT interpreted by me (1pt min.). @ -None done U/S interpreted by me (1pt. min.). @ -None done What testing was considered but not performed or refused? (CT, X-rays, U/S, labs)? Why? @ -None What meds were considered but not given or refused? Why? @ -None Did you discuss the management of the patient with other professionals (professionals i.e. , PA, B2B OUTSIDE SALES REPRESENTATIVE, lab, RT, psych nurse, social services specialist, vice president quality improvement, teacher, investigation officer, immigration case worker)? Give summary @ -Discussed the patient with Dr. Travis who was in agreement with the plan and accepted the admission.Discussed with first coat operator cast iron dipper Dr. Herndon who accepted the console and was in agreement with arranging for dialysis. Was in agreement with management of the hyperkalemia. I spoke with him a second time as the initial consult placed under him was not registering on his computer. Therefore additional consults placed to the other first coat operator to see if that would populate on his list. He did not call back and therefore I do believe this the issue. Was smoking cessation discussed for >3mins.? @ -No Was critical care preformed (if so, how long)? @ -Yes, 42 minutes Were there social determinants of health that impacted care today? How? (Homelessness, low income, unemployed, alcoholism, drug addiction, transportation, low edu. Level, literacy, decrease access to med. care, skilled nursing, rehab)? @ -No Was there de-escalation of care discussed even if they declined (Discuss DNR or withdrawal of care, Hospice)? DNR status @ -No What co-morbidities impacted this encounter? (DM, HTN, Smoking, COPD, CAD, Cancer, CVA, ARF, Chemo, Hep., AIDS, mental health diagnosis, sleep apnea, morbid obesity)? @ -ESRD, cardiomyopathy Was patient admitted / discharged? Hospital course, mention meds given and route, prescriptions, significant lab abnormalities, going to OR and other pertinent info. @ -Based on the patient's presentation and physical exam, I do believe her symptoms are her typical chest discomfort that she expenses that she has been to the emergency department for previously and admitted for. I do anticipate her troponin will be elevated. She has not missed any runs of dialysis. We will obtain cardiopulmonary workup at this time. We will attempt nitroglycerin tablets for pain relief and if that does not work we can reevaluate. Patient was in agreement with this plan. She'll receive 324 mg of aspirin. Vital signs are within acceptable limits. EKG shows no obvious signs of acute ischemia. Chronic changes present.Chest x- ray shows mild bilateral pulmonary vascular congestion. Patient's labs are remarkable for a elevated BUN/creatinine of 44 and 7.76 respectively. Patient is hyperkalemic to 6.5. Troponin is indeterminate. BNP is chronically elevated, currently and 91,000 the patient ranges anywhere from 60,000 to 100,000s. I updated the patient on results of her labs. She was given the hyperkalemia cocktail including lokelma. Patient was also given insulin, D50, albuterol, bicarb, calcium. She requires dialysis. She was in agreement this plan. I spoke with the admitting team, Dr. Travis who accepted the patient. I spoke with the on-call first coat operator, Dr. Herndon who accepted the console and was in agreement with the plan for dialysis. He will arrange for dialysis. He was having issues accessing the chart and therefore she consults were placed the other first coat operator as well to see that would populate the patient into his system. It seemed to have worked. Patient was admitted in serious condition. Patient was hypoglycemic just prior to being taken up to her room. Was not alte red but was complaining of lightheadedness. She was administered an amp of D50 and they will recheck her sugar on the floor as dialysis his serum we do not want to delay dialysis. I was notified of this episode just after patient was transferred upstairs following the amp of D50.We'll trend the patient's troponin. Dr. Travis already consulted cardiology. Undiagnosed new problem with uncertain prognosis? @ -No Drug Therapy requiring intensive monitoring for toxicity (Heparin, Nitro, Insulin, Cardizem)? @ -No Were any procedures done? @ -No. Diagnosis/symptom? @ -Chest pain Acute, or Chronic, or Acute on Chronic? @ -Acute on chronic Uncomplicated (without systemic symptoms) or Complicated (systemic symptoms)? @ -Complicated Side effects of treatment? @ -none Exacerbation, Progression, or Severe Exacerbation] @ -no Poses a threat to life or bodily function? @ -yes Diagnosis/symptom? @ -Hyperkalemia Acute, or Chronic, or Acute on Chronic? @ -Acute Uncomplicated (without systemic symptoms) or Complicated (systemic symptoms)? @ -Complicated Side effects of treatment? @ -Includes possible hypoglycemia secondary to insulin administration Exacerbation, Progression, or Severe Exacerbation] @ -no Poses a threat to life or bodily function? @ -Yes - Lab Data Result diagrams: 02/27/23 14:04 02/27/23 14:04 Lab Results 02/27/23 02/27/23 02/27/23 Range/Units 14:04 14:04 14:04 WBC 5.7 (3.8-10.6) k/uL RBC 4.05 (3.80-5.40) m/uL Hgb 12.0 (11.4-16.0) gm/dL Hct 38.2 (34.0-46.0) % MCV 94.3 (80.0-100.0) fL MCH 29.6 (25.0-35.0) pg MCHC 31.4 (31.0-37.0) g/dL RDW 18.4 H (11.5-15.5) % Plt Count 159 D (150-450) k/uL MPV 9.1 Neutrophils % 75 % Lymphocytes % 14 % Monocytes % 4 % Eosinophils % 6 % Basophils % 1 % Neutrophils # 4.3 (1.3-7.7) k/uL Lymphocytes # 0.8 L (1.0-4.8) k/uL Monocytes # 0.3 (0-1.0) k/uL Eosinophils # 0.3 (0-0.7) k/uL Basophils # 0.1 (0-0.2) k/uL Hypochromasia Slight Anisocytosis Slight Macrocytosis Slight PT 11.8 (9.0-12.0) sec INR 1.1 (<1.2) APTT 25.5 (22.0-30.0) sec Sodium 135 L (137-145) mmol/L Potassium 6.5 H* (3.5-5.1) mmol/L Chloride 100 (98-107) mmol/L Carbon Dioxide 22 (22-30) mmol/L Anion Gap 13 mmol/L BUN 44 H (7-17) mg/dL Creatinine 7.76 H* (0.52-1.04) mg/dL Est GFR (CKD-EPI)AfAm 7 (>60 ml/min/1.73 sqM) Est GFR (CKD-EPI)NonAf 6 (>60 ml/min/1.73 sqM) Glucose 92 (74-99) mg/dL Calcium 8.1 L (8.4-10.2) mg/dL Magnesium 2.0 (1.6-2.3) mg/dL Total Bilirubin 0.9 (0.2-1.3) mg/dL AST 29 (14-36) U/L ALT 21 (4-34) U/L Alkaline Phosphatase 89 (38-126) U/L Troponin I (0.000-0.034) ng/mL NT-Pro-B Natriuret Pep 55152 pg/mL Total Protein 8.1 (6.3-8.2) g/dL Albumin 4.3 (3.5-5.0) g/dL 02/27/23 Range/Units 14:04 WBC (3.8-10.6) k/uL RBC (3.80-5.40) m/uL Hgb (11.4-16.0) gm/dL Hct (34.0-46.0) % MCV (80.0-100.0) fL MCH (25.0-35.0) pg MCHC (31.0-37.0) g/dL RDW (11.5-15.5) % Plt Count (150-450) k/uL MPV Neutrophils % % Lymphocytes % % Monocytes % % Eosinophils % % Basophils % % Neutrophils # (1.3-7.7) k/uL Lymphocytes # (1.0-4.8) k/uL Monocytes # (0-1.0) k/uL Eosinophils # (0-0.7) k/uL Basophils # (0-0.2) k/uL Hypochromasia Anisocytosis Macrocytosis PT (9.0-12.0) sec INR (<1.2) APTT (22.0-30.0) sec Sodium (137-145) mmol/L Potassium (3.5-5.1) mmol/L Chloride (98-107) mmol/L Carbon Dioxide (22-30) mmol/L Anion Gap mmol/L BUN (7-17) mg/dL Creatinine (0.52-1.04) mg/dL Est GFR (CKD-EPI)AfAm (>60 ml/min/1.73 sqM) Est GFR (CKD-EPI)NonAf (>60 ml/min/1.73 sqM) Glucose (74-99) mg/dL Calcium (8.4-10.2) mg/dL Magnesium (1.6-2.3) mg/dL Total Bilirubin (0.2-1.3) mg/dL AST (14-36) U/L ALT (4-34) U/L Alkaline Phosphatase (38-126) U/L Troponin I 0.032 (0.000-0.034) ng/mL NT-Pro-B Natriuret Pep pg/mL Total Protein (6.3-8.2) g/dL Albumin (3.5-5.0) g/dL - EKG Data -: EKG Interpreted by Me EKG Comments: 12-lead Electrocardiogram Interpretation Note EKG was reviewed and interpreted by myself. 12-lead ECG performed at 1336 is interpreted by me as revealing normal sinus rhythm at a rate of 86 beats per minute. Cass is normal. [place] interval is 227 milliseconds, QRS duration is 94 ms, QTc is 454 ms.. There were no obvious acute ST or T wave abnormalities to suggest myocardial ischemia or injury. There are chronic T wave inversions in leads V5 and V6 as well as aVL seen on prior EKGs from December and August 2022. R wave progression across the precordium was satisfactory. By my interpretation this EKG is non-diagnostic for acute ischemia. Chronic finding seen on previous EKGs from December in August 2022.Patient does have some peaked T waves but they're not diffuse. We will hold off for her labs before calling this hyperkalemia caused peaked T waves.. Disposition Clinical Impression: Chest pain, Hyperkalemia Disposition: ADMITTED IP TO THIS HOSP Condition: Serious Time of Disposition: 15:31
--- NOTE | 2023-02-27 14:24 | XR ---
EXAMINATION TYPE: XR chest 2V DATE OF EXAM: 02/27/2023 2:18 PM COMPARISON: Chest radiographs from 01/18/2023 TECHNIQUE: XR chest 2V review. CLINICAL INDICATION:Female, 32 years old with history of Chest Pain; FINDINGS: Lungs/Pleura: There is no evidence of pleural effusion, focal consolidation, or pneumothorax. Pulmonary vascularity: Mild pulmonary vascular congestion. Heart/mediastinum: Cardiomediastinal silhouette is enlarged and stable. Musculoskeletal: No acute osseous pathology. IMPRESSION: Cardiomegaly and mild pulmonary vascular congestion. Correlate with BNP for congestive heart failure.
[2023-02-27 14:36] LABS: Anisocytosis Slight; Basophils # (A) 0.1 k/uL (0-0.2); Basophils % (A) 1 %; Eosinophils # (A) 0.3 k/uL (0-0.7); Eosinophils % (A) 6 %; HCT 38.2 % (34.0-46.0); Hypochromasia Slight; Lymphocytes # (A) 0.8 k/uL (1.0-4.8); Lymphocytes % (A) 14 %; MCH 29.6 pg (25.0-35.0); MCHC 31.4 g/dL (31.0-37.0); MCV 94.3 fL (80.0-100.0); Macrocytosis Slight; Mean Platelet Volume 9.1; Monocytes # (A) 0.3 k/uL (0-1.0); Monocytes % (A) 4 %; Neutrophils # (A) 4.3 k/uL (1.3-7.7); Neutrophils % (A) 75 %; RBC 4.05 m/uL (3.80-5.40); RDW 18.4 % (11.5-15.5); WBC 5.7 k/uL (3.8-10.6)
[2023-02-27 14:37] LABS: INR 1.1 (<1.2); Partial Thromboplastin Time 25.5 sec (22.0-30.0); Prothrombin Time 11.8 sec (9.0-12.0)
[2023-02-27 14:39] LABS: ALT 21 U/L (4-34); AST 29 U/L (14-36); African American GFR (CKD) 7 (>60 ml/min/1.73 sqM); Albumin 4.3 g/dL (3.5-5.0); Alkaline Phosphatase 89 U/L (38-126); Anion Gap 13 mmol/L; Blood Urea Nitrogen 44 mg/dL (7-17); Calcium 8.1 mg/dL (8.4-10.2); Carbon Dioxide 22 mmol/L (22-30); Chloride 100 mmol/L (98-107); Glucose 92 mg/dL (74-99); Non-African American GFR(CKD) 6 (>60 ml/min/1.73 sqM); Platelet Count 159 k/uL (150-450); Sodium 135 mmol/L (137-145); Total Bilirubin 0.9 mg/dL (0.2-1.3); Total Protein 8.1 g/dL (6.3-8.2)
[2023-02-27 14:42] LABS: Potassium 6.5 mmol/L (3.5-5.1)
[2023-02-27] MEDS ORDERED: CALCIUM GLUCONATE IN NACL 1 GM in SALINE 1 100ML.BAG IVPB ONE (14:51)
[2023-02-27] MEDS ORDERED: DEXTROSE 50% SYRINGE 50 ML IVP ONE (14:51)
[2023-02-27] MEDS ORDERED: SODIUM ZIRCONIUM CYCLOSILICATE 10 GM PACKET PO ONE (14:51)
[2023-02-27] MEDS ORDERED: SODIUM BICARB 8.4% 50 ML SYR (1 MEQ/ML) IV ONE (14:51)
[2023-02-27] MEDS ORDERED: INSULIN REGULAR 100 UNIT/ML VIAL (IV) IV ONE (14:51)
[2023-02-27] MEDS ORDERED: ALBUTEROL NEB (CONC) 2.5 MG/0.5 ML INHALATION ONE (14:51)
[2023-02-27] MEDS ORDERED: DEXTROSE 10% IN WATER 500 ML in EMPTY BAG 1 BAG IV SCH (15:00)
[2023-02-27 15:04] LABS: NT-Pro-B-Type Natriuretic Pept 91300 pg/mL
[2023-02-27] MEDS ORDERED: ALBUTEROL NEBULIZED 2.5 MG/3 ML INHALATION STA (15:05)
[2023-02-27] MEDS ORDERED: ALBUTEROL NEB (CONC) 2.5 MG/0.5 ML INHALATION STA (15:09)
[2023-02-27] MEDS ORDERED: NALOXONE 0.4 MG/ML 1 ML VIAL IV PRN (15:34)
[2023-02-27] MEDS: PANTOPRAZOLE 40 MG/10 ML VIAL IVP SCH (15:51)
[2023-02-27 17:35] LABS: Glucose,Whole Blood 29 mg/dL (70-110)
[2023-02-27] MEDS ORDERED: DEXTROSE 50% SYRINGE 50 ML IVP STA ×2 (17:46→18:13)
[2023-02-27 18:14] LABS: Glucose,Whole Blood 45 mg/dL (70-110)
[2023-02-27] MEDS: HYDROcodone/APAP 5-325MG 1 EACH TAB PO PRN (18:20)
[2023-02-27 18:28] LABS: Glucose,Whole Blood 94 mg/dL (70-110)
[2023-02-27] MEDS ORDERED: hydrOXYzine HCL 25 MG TAB PO PRN (18:47)
[2023-02-27] MEDS ORDERED: CALCIUM ACETATE 667 MG TAB PO PRN (18:47)
[2023-02-27] MEDS ORDERED: ALBUTEROL NEBULIZED 2.5 MG/3 ML INHALATION PRN (18:47)
[2023-02-27] MEDS ORDERED: ACETAMINOPHEN TAB 500 MG TAB PO PRN (18:47)
[2023-02-27] MEDS ORDERED: LIDOCAINE-PRILOCAINE 2.5-2.5% CREAM 5 GM TUBE TOPICAL PRN (18:47)
[2023-02-27 20:00] LABS: Glucose,Whole Blood 122 mg/dL (70-110)
[2023-02-27] MEDS: carvediloL 12.5 MG TAB PO SCH (20:08)
[2023-02-27] MEDS: hydrALAZINE HCL 50 MG TAB PO SCH (20:11)
[2023-02-27] MEDS: HYDROmorphone 0.5 MG/0.5 ML SYRINGE IVP PRN (22:46)
--- NOTE | 2023-02-27 23:40 | HP ---
HISTORY AND PHYSICAL CHIEF COMPLAINT: Chest pain. HISTORY OF PRESENT ILLNESS: This is a 32-year-old woman with a past medical history of chronic renal failure, on hemodialysis, complaining of chest pain. Pain is mostly situated in the upper part of the chest without any aggravating or relieving factors specifically. The patient had previous episodes and troponins were found to be 0.032. Previously, the patient's troponins had been under high range all the time. The patient also has hyperkalemia. The patient has minimal peaking of the T-waves and the T wave insertion in some leads, which are rather chronic in nature. PAST MEDICAL HISTORY: Reviewed include chronic kidney disease. Rest of the history and rest of the chart is also reviewed. HOME MEDICATIONS: Reviewed include Atarax. Dose and rest of medications reviewed. ALLERGIES: Vancomycin. FAMILY HISTORY: No history of heart disease or strokes in the family. SOCIAL HISTORY: History of THC. Previous history of smoking. REVIEW OF SYSTEMS: Fourteen-point review is negative except as mentioned earlier. PHYSICAL EXAMINATION: VITAL SIGNS: Pulse is 83, blood pressure 150/94, respirations 16 HEENT: Conjunctivae normal. NECK: No JVD. CARDIOVASCULAR: S1, S2. Possible pericardial rub present RESPIRATIONS: Breath sounds diminished at the bases. A few scattered rhonchi and crackles. ABDOMEN: Soft, nontender. LEGS: No edema. NERVOUS SYSTEM: Nonfocal. SKIN: No ulcer, rash, or bleeding. JOINTS: No active deforming arthropathy. ASSESSMENT: 1. Chest pain, rule out coronary artery disease, possible pericarditis. 2. Hyperkalemia. 3. Chronic kidney disease, end-stage renal disease, on hemodialysis. 4. History of asthma. 5. History of congestive heart failure. 6. Multiple medical issues. 7. Previously elevated troponins. RECOMMENDATIONS AND DISCUSSION: This is a 32-year-old woman, who presented with multiple complex medical issues, we will monitor the patient closely. Symptomatic treatment provided. Cardiology consultation. 2D echo with Doppler. Otherwise, I would also recommend sedimentation rate also and CRP. Prognosis guarded because of multiple complex medical issues. Further recommendations to follow. See orders for further details. Home medications will be continued once they are confirmed. Nephrology will be consulted for continued hemodialysis. MMODL / IJN: [id number] /
[2023-02-28] MEDS: HYDROcodone/APAP 5-325MG 1 EACH TAB PO PRN ×2 (05:30→16:53)
[2023-02-28 06:04] LABS: Glucose,Whole Blood 76 mg/dL (70-110)
[2023-02-28] MEDS: CALCIUM ACETATE 667 MG TAB PO SCH ×3 (06:54→16:47)
[2023-02-28] MEDS: carvediloL 12.5 MG TAB PO SCH ×2 (06:54→16:46)
[2023-02-28 08:20] LABS: Anisocytosis Slight; Basophils % (A) 1 %; Eosinophils # (A) 0.3 k/uL (0-0.7); Eosinophils % (A) 6 %; HCT 31.8 % (34.0-46.0); HGB 10.2 gm/dL (11.4-16.0); Hypochromasia Moderate; Lymphocytes # (A) 0.9 k/uL (1.0-4.8); Lymphocytes % (A) 17 %; MCH 30.2 pg (25.0-35.0); MCV 94.4 fL (80.0-100.0); Macrocytosis Slight; Mean Platelet Volume 8.7; Monocytes # (A) 0.2 k/uL (0-1.0); Monocytes % (A) 5 %; Neutrophils # (A) 3.7 k/uL (1.3-7.7); Neutrophils % (A) 70 %; Platelet Count 108 k/uL (150-450); RBC 3.37 m/uL (3.80-5.40); RDW 18.1 % (11.5-15.5); WBC 5.2 k/uL (3.8-10.6)
[2023-02-28] MEDS: PANTOPRAZOLE 40 MG/10 ML VIAL IVP SCH (09:08)
[2023-02-28] MEDS: hydrALAZINE HCL 50 MG TAB PO SCH ×3 (09:08→20:31)
[2023-02-28 09:15] LABS: African American GFR (CKD) 9 (>60 ml/min/1.73 sqM); Anion Gap 11 mmol/L; Blood Urea Nitrogen 45 mg/dL (7-17); Calcium 7.3 mg/dL (8.4-10.2); Carbon Dioxide 25 mmol/L (22-30); Chloride 97 mmol/L (98-107); Glucose 76 mg/dL (74-99); Non-African American GFR(CKD) 8 (>60 ml/min/1.73 sqM); Potassium 4.8 mmol/L (3.5-5.1); Sodium 133 mmol/L (137-145)
[2023-02-28] MEDS: HYDROmorphone 0.5 MG/0.5 ML SYRINGE IVP PRN ×2 (09:22→20:53)
[2023-02-28 11:58] LABS: Glucose,Whole Blood 94 mg/dL (70-110)
[2023-02-28] MEDS ORDERED: NIFEdipine 10 MG CAP PO ONE (13:00)
[2023-02-28] MEDS: ONDANSETRON 4 MG/2 ML VIAL IVP PRN (13:10)
--- NOTE | 2023-02-28 14:39 | P.NPCON ---
History of Present Illness - Reason for Consult Consult date: 02/28/23 end stage renal disease, hyperkalemia - Chief Complaint Chest pain - History of Present Illness Coming to the hospital with the above complaints. Wednesday dialysis for the last 5 years. Did not miss any treatment, last dialysis was Wednesday. On Wednesday potassium was 6.5 and shortness of breath. Chest x-ray showed pulmonary vascular congestion, underwent emergent hemodialysis for 2 hours. Potassium better today. 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 History of Any Multi-Drug Resistant Organisms: None Reported Past Surgical History: Heart Catheterization, Hernia Repair Additional Past Surgical History / Comment(s): 06/14/18 cardiac cath at [facility] to check coronary pressures, 11/15/09 Failed kidney transplant R pelvis, dialysis catheter in and out, current L upper arm AVG, supra pubic hernia repair, transvaginal mesh, wisdom teeth extraction with anesthesia, 2016 failed kidney transplant Past Anesthesia/Blood Transfusion Reactions: No Reported Reaction Additional Past Anesthesia/Blood Transfusion Reaction / Comment(s): Pt has received blood in past without reaction. Past Psychological History: Anxiety, Depression Smoking Status: Former smoker Past Alcohol Use History: None Reported Past Drug Use History: None Reported, Marijuana - Past Family History Father Family Medical History: No Reported History Additional Family Medical History / Comment(s): Father is healthy and is 62 yrs old. Mother Family Medical History: No Reported History Additional Family Medical History / Comment(s): Mother is healthy and is 60 yrs old. Medications and Allergies Home Medications Medication Instructions Recorded Confirmed Type Albuterol Sulfate [Proair Hfa] 2 puff INHALATION RT-Q6H PRN 01/22/16 02/27/23 History hydrALAZINE HCL [Apresoline] 100 mg PO TID 11/16/18 02/27/23 History Cinacalcet HCl [Sensipar] 120 mg PO MOWEFR 02/26/19 02/27/23 History Calcium Acetate [PhosLo] 2,668 mg PO TID-W/MEALS 05/01/20 02/27/23 History Lidocaine-Prilocaine Cream [Emla 1 applic TOPICAL DAILY PRN 05/01/20 02/27/23 History Cream 2.5%/2.5%] calcitrioL [Calcitriol] 3 mcg PO MOWEFR 10/29/21 02/27/23 History hydrOXYzine HCL [Atarax] 25 mg PO TID PRN 10/29/21 02/27/23 History Acetaminophen Tab [Tylenol] 1,000 mg PO Q6HR PRN 05/26/22 02/27/23 History Calcium Acetate [PhosLo] 667 - 1,334 mg PO BID PRN 05/26/22 02/27/23 History Pantoprazole [Protonix] 40 mg PO DAILY PRN 01/18/23 02/27/23 History HYDROcodone/APAP 5-325MG [[place] 1 tab PO Q6HR PRN #4 tab 01/20/23 02/27/23 Rx 5-325] NIFEdipine [NIFEdipine ER 60 mg PO BID 30 Days #60 tab 01/20/23 02/27/23 Rx (Osmotic)] carvediloL [Coreg*] 37.5 mg PO BID-W/MEALS 30 Days 01/20/23 02/27/23 Rx #180 tab Ondansetron Odt [Zofran Odt] 4 mg PO Q12HR PRN 02/27/23 02/27/23 History Allergies Allergy/AdvReac Type Severity Reaction Status Date / Time vancomycin Allergy Anaphylaxis Verified 02/27/23 16:26 hydralazine AdvReac Rapid Verified 02/27/23 16:26 Heart Rate WHEN GIVEN THROUGH IV Physical Exam Vitals: Vital Signs Temp Pulse Pulse Pulse Resp BP BP 02/28/23 12:35 98.5 F 85 18 174/111 02/28/23 11:52 02/28/23 09:05 98.1 F 77 16 159/98 02/28/23 04:00 81 18 174/104 02/28/23 02:00 81 02/28/23 00:00 97.5 F L 98 18 160/98 02/27/23 20:42 97.8 F 89 20 170/102 02/27/23 17:55 97.8 F 82 18 188/121 02/27/23 16:31 78 18 163/103 02/27/23 15:43 81 02/27/23 15:35 72 18 154/110 02/27/23 15:19 76 Pulse Ox 02/28/23 12:35 100 02/28/23 11:52 98 02/28/23 09:05 99 02/28/23 04:00 96 02/28/23 02:00 02/28/23 00:00 97 02/27/23 20:42 02/27/23 17:55 99 02/27/23 16:31 98 02/27/23 15:43 02/27/23 15:35 96 02/27/23 15:19 Intake and Output 02/27/23 02/28/23 02/28/23 22:59 06:59 14:59 Intake Total 400 357 Output Total 2000 120 Balance -1600 237 Intake: Oral 357 Hemodialysis 400 Output: Urine 120 Hemodialysis 2000 Other: Weight 56.699 kg 54.2 kg No acute distress S1-S2 heard Lungs clear No edema Results - Lab Results Most recent lab results Calcium 7.3 mg/dL (8.4-10.2) L 02/28/23 07:53 Magnesium 2.0 mg/dL (1.6-2.3) 02/27/23 14:04 02/28/23 07:53 02/28/23 07:53 Assessment and Plan Assessment: #1 chest pain/shortness of breath secondary to volume overload. #2 hyperkalemia, improved with dialysis #3 ESRD, MWF. #4 hypertension with ESRD #5 metabolic bone disease #6 anemia with ESRD Plan: #1 emergent hemodialysis yesterday for hyperkalemia. Next treatment on Wednesday #2 ESRD medications #3 stable from nephrology for discharge
--- NOTE | 2023-02-28 14:55 | P.CRDCN ---
History of Present Illness Consult date: 02/28/23 History of present illness: HISTORY OF PRESENTING ILLNESS 32-year-old female with past medical history of end-stage renal disease on hemodialysis and polycystic kidney disease, essential hypertension. She has a history of previous renal transplant with rejection. She has history of cardiomyopathy with improvement in her ejection fraction. She also has a history of pulmonary hypertension and chronically elevated troponins. She follows up with Dr. Larios in clinic. She presented to the ER with substernal chest pains. She reports that her pain is mostly situated in her chest. There is no particular aggravating or alleviating factors. There is no relationship to activity or rest. She denied any associated diaphoresis or nausea with this chest pain. She denied having any associated shortness of breath, palpitations lightheadedness or dizziness. Most recent echocardiogram obtained in June 2022 revealed ejection fraction 50%, severe pulmonary hypertension, [id number] mitral regurgitation Echocardiogram 01/19/2023 reveals EF 40-45% with global hypokinesis. Severe increased left ventricular wall thickness. Moderately dilated left atrium. Mild MR, moderate AR, moderate to severe TR, moderate pulmonary regurgitation. Small pericardial effusion without tamponade DIAGNOSTICS EKG reveals sinus rhythm, left axis deviation, LVH. T wave changes due to repolarization. This is not changed when compared to old EKG Chest xray x-ray does not show signs of primary congestion. Laboratory reviewed, hemoglobin 10.2, BUN 45, creatinine 6.39, troponins are not elevated. Current cardiac medications include . She is not on any cardiac medications. She is only on antihypertensives which include Procardia 60 mg twice a day, hydralazine 100 mg 3 times a day, carvedilol 37.5 twice a day REVIEW OF SYSTEMS At the time of my exam: CONSTITUTIONAL: Denies fever or chills. CARDIOVASCULAR: Denies chest pain, shortness of breath, orthopnea, PND or palpitations. RESPIRATORY: Denies cough. GASTROINTESTINAL: Denies abdominal pain, diarrhea, constipation, nausea or vomiting. MUSCULOSKELETAL: Denies myalgias. NEUROLOGIC: Denies numbness, tingling or weakness. ENDOCRINE: Denies fatigue, weight change, polydipsia or polyurina. GENITOURINARY: Denies burning, hematuria or urgency with micturation. HEMATOLOGIC: Denies history of anemia or bleeding. PHYSICAL EXAMINATION Vital signs reviewed. CONSTITUTIONAL: No apparent distress. HEENT: Head is normocephalic. Pupils are equal, round. Sclerae anicteric. Mucous membranes of the mouth are moist. No JVD. No carotid bruit. CHEST EXAMINATION: Lungs are clear to auscultation. No chest wall tenderness is noted on palpation or with deep breathing. HEART EXAMINATION: Regular rate and rhythm. S1, S2 heard. No murmurs, gallops or rub. ABDOMEN: Soft, nontender. Positive bowel sounds. EXTREMITIES: 2+ peripheral pulses, no lower extremity edema and no calf tenderness. NEUROLOGIC EXAMINATION: Patient is awake, alert and oriented x3. ASSESSMENT Chest pain, acute coronary syndrome ruled out Hypertension, uncontrolled End-stage renal disease on hemodialysis Polycystic kidney disease History of previous kidney transplant with rejection Valvular heart disease Pulmonary hypertension Chronic congestive heart failure with preserved ejection fraction, currently euvolemic PLAN: Continue carvedilol to 37.5 mg twice a day Increase Procardia to 90 mg BID No further cardiac testing at this time. Past Medical History Past Medical History: Asthma, Heart Failure, Hypertension, Renal Disease Additional Past Medical History / Comment(s): ESRD d/t being born with polycys tic kidney disease, failed kidney transplant, hemodialysis (M,W,Fr) chronic anemia, 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 History of Any Multi-Drug Resistant Organisms: None Reported Past Surgical History: Heart Catheterization, Hernia Repair Additional Past Surgical History / Comment(s): 06/14/18 cardiac cath at [facility] to check coronary pressures, 11/15/09 Failed kidney transplant R pelvis, dialysis catheter in and out, current L upper arm AVG, supra pubic hernia repair, transvaginal mesh, wisdom teeth extraction with anesthesia, 2016 failed kidney transplant Past Anesthesia/Blood Transfusion Reactions: No Reported Reaction Additional Past Anesthesia/Blood Transfusion Reaction / Comment(s): Pt has received blood in past without reaction. Past Psychological History: Anxiety, Depression Smoking Status: Former smoker Past Alcohol Use History: None Reported Past Drug Use History: None Reported, Marijuana - Past Family History Father Family Medical History: No Reported History Additional Family Medical History / Comment(s): Father is healthy and is 62 yrs old. Mother Family Medical History: No Reported History Additional Family Medical History / Comment(s): Mother is healthy and is 60 yrs old. Medications and Allergies Home Medications Medication Instructions Recorded Confirmed Type Albuterol Sulfate [Proair Hfa] 2 puff INHALATION RT-Q6H PRN 01/22/16 02/27/23 History hydrALAZINE HCL [Apresoline] 100 mg PO TID 11/16/18 02/27/23 History Cinacalcet HCl [Sensipar] 120 mg PO MOWEFR 02/26/19 02/27/23 History Calcium Acetate [PhosLo] 2,668 mg PO TID-W/MEALS 05/01/20 02/27/23 History Lidocaine-Prilocaine Cream [Emla 1 applic TOPICAL DAILY PRN 05/01/20 02/27/23 History Cream 2.5%/2.5%] calcitrioL [Calcitriol] 3 mcg PO MOWEFR 10/29/21 02/27/23 History hydrOXYzine HCL [Atarax] 25 mg PO TID PRN 10/29/21 02/27/23 History Acetaminophen Tab [Tylenol] 1,000 mg PO Q6HR PRN 05/26/22 02/27/23 History Calcium Acetate [PhosLo] 667 - 1,334 mg PO BID PRN 05/26/22 02/27/23 History Pantoprazole [Protonix] 40 mg PO DAILY PRN 01/18/23 02/27/23 History HYDROcodone/APAP 5-325MG [[place] 1 tab PO Q6HR PRN #4 tab 01/20/23 02/27/23 Rx 5-325] NIFEdipine [NIFEdipine ER 60 mg PO BID 30 Days #60 tab 01/20/23 02/27/23 Rx (Osmotic)] carvediloL [Coreg*] 37.5 mg PO BID-W/MEALS 30 Days 01/20/23 02/27/23 Rx #180 tab Ondansetron Odt [Zofran Odt] 4 mg PO Q12HR PRN 02/27/23 02/27/23 History Allergies Allergy/AdvReac Type Severity Reaction Status Date / Time vancomycin Allergy Anaphylaxis Verified 02/27/23 16:26 hydralazine AdvReac Rapid Verified 02/27/23 16:26 Heart Rate WHEN GIVEN THROUGH IV Physical Exam Vitals: Vital Signs Temp Pulse Pulse Pulse Resp BP BP 02/28/23 12:35 98.5 F 85 18 174/111 02/28/23 11:52 02/28/23 09:05 98.1 F 77 16 159/98 02/28/23 04:00 81 18 174/104 02/28/23 02:00 81 02/28/23 00:00 97.5 F L 98 18 160/98 02/27/23 20:42 97.8 F 89 20 170/102 02/27/23 17:55 97.8 F 82 18 188/121 02/27/23 16:31 78 18 163/103 02/27/23 15:43 81 02/27/23 15:35 72 18 154/110 02/27/23 15:19 76 Pulse Ox 02/28/23 12:35 100 02/28/23 11:52 98 02/28/23 09:05 99 02/28/23 04:00 96 02/28/23 02:00 02/28/23 00:00 97 02/27/23 20:42 02/27/23 17:55 99 02/27/23 16:31 98 02/27/23 15:43 02/27/23 15:35 96 02/27/23 15:19 Intake and Output 02/27/23 02/28/23 02/28/23 22:59 06:59 14:59 Intake Total 400 357 Output Total 2000 120 Balance -1600 237 Intake: Oral 357 Hemodialysis 400 Output: Urine 120 Hemodialysis 2000 Other: Weight 56.699 kg 54.2 kg Results 02/28/23 07:53 02/28/23 07:53 Cardiac Enzymes 02/27/23 02/27/23 02/27/23 Range/Units 14:04 19:56 22:22 Troponin I 0.032 0.027 0.025 (0.000-0.034) ng/mL CBC 02/28/23 Range/Units 07:53 WBC 5.2 (3.8-10.6) k/uL RBC 3.37 L (3.80-5.40) m/uL Hgb 10.2 L (11.4-16.0) gm/dL Hct 31.8 L (34.0-46.0) % Plt Count 108 L (150-450) k/uL Comprehensive Metabolic Panel 07/29/23 07/30/23 Range/Units 19:56 07:53 Sodium 133 L (137-145) mmol/L Potassium 3.8 4.8 (3.5-5.1) mmol/L Chloride 97 L (98-107) mmol/L Carbon Dioxide 25 (22-30) mmol/L BUN 45 H (7-17) mg/dL Creatinine 6.39 H (0.52-1.04) mg/dL Glucose 76 (74-99) mg/dL Calcium 7.3 L (8.4-10.2) mg/dL Current Medications Generic Name Dose Route Start Last Admin Trade Name Freq PRN Reason Stop Dose Admin Acetaminophen 1,000 mg 02/27/23 18:47 Acetaminophen Tab 500 Mg Tab PO Q6HR PRN Pain or Fever > 100.5 Hydrocodone Bitart/Acetaminophen 1 each 02/27/23 15:06 02/28/23 05:30 Hydrocodone/Apap 5-325mg 1 Each Tab PO 1 each Q6HR PRN Administration Pain Albuterol Sulfate 2.5 mg 02/27/23 18:47 Albuterol Nebulized 2.5 Mg/3 Ml INHALATION RT-Q6H PRN Shortness Of Breath Calcitriol 3 mcg 03/01/23 09:00 Calcitriol 0.25 Mcg Cap PO MOWEFR SELENE Calcium Acetate 667 mg 02/27/23 18:47 Calcium Acetate 667 Mg Tab PO BID PRN WITH SNACKS Calcium Acetate 2,668 mg 02/28/23 07:30 02/28/23 12:25 Calcium Acetate 667 Mg Tab PO 2,668 mg TID-W/MEALS SELENE Administration Carvedilol 37.5 mg 02/27/23 19:00 02/28/23 06:54 Carvedilol 12.5 Mg Tab PO 37.5 mg BID-W/MEALS SELENE Administration Cinacalcet 120 mg 03/01/23 09:00 Cinacalcet 30 Mg Tab PO MOWEFR SELENE Hydralazine HCl 100 mg 02/27/23 22:00 02/28/23 09:08 Hydralazine Hcl 50 Mg Tab PO 100 mg TID SELENE Administration Hydromorphone HCl 0.5 mg 02/27/23 15:06 02/28/23 09:22 Hydromorphone 0.5 Mg/0.5 Ml Syringe IVP 0.5 mg Q6HR PRN Administration Severe Pain (Scale 7 to 10) Hydroxyzine HCl 25 mg 02/27/23 18:47 Hydroxyzine Hcl 25 Mg Tab PO TID PRN Anxiety Lidocaine/Prilocaine 1 applic 02/27/23 18:47 Lidocaine-Prilocaine 2.5-2.5% Cream 5 Gm Tube TOPICAL DAILY PRN PORT ACCESS Protocol Naloxone HCl 0.2 mg 02/27/23 15:34 Naloxone 0.4 Mg/Ml 1 Ml Vial IV Q2M PRN Opioid Reversal Nifedipine 90 mg 02/28/23 21:00 Nifedipine Xl 90 Mg Tab.Er.24 PO BID SELENE Ondansetron HCl 4 mg 02/27/23 15:34 02/28/23 13:10 Ondansetron 4 Mg/2 Ml Vial IVP 4 mg Q8HR PRN Administration Nausea And Vomiting Pantoprazole Sodium 40 mg 02/27/23 15:15 02/28/23 09:08 Pantoprazole 40 Mg/10 Ml Vial IVP 40 mg DAILY SELENE Administration Intake and Output 02/27/23 02/28/23 02/28/23 22:59 06:59 14:59 Intake Total 400 357 Output Total 1999 120 Balance -1600 237 Intake: Oral 357 Hemodialysis 400 Output: Urine 120 Hemodialysis 1999 Other: Weight 56.699 kg 54.2 kg 02/28/23 07:53 02/28/23 07:53
--- NOTE | 2023-02-28 15:37 | PN ---
PROGRESS NOTE DATE OF SERVICE: 02/28/2023 SUBJECTIVE: This is a 32-year-old woman, who was admitted with chest pain, was thought to have some pericarditis at this time. The patient still complains of chest pain. PHYSICAL EXAMINATION: VITAL SIGN: Pulse is 85, blood pressure 174/111, respirations 18. CHEST: Few scattered rhonchi. CARDIOVASCULAR: S1 and S2 LABORATORY DATA: Reviewed. ASSESSMENT: 1. Chest pain, rule out coronary artery disease, possible pericarditis. 2. Hyperkalemia. 3. Chronic kidney disease, end-stage renal disease, on hemodialysis. 4. History of asthma. 5. History of borderline troponins previously. 6. History of congestive heart failure. 7. Multiple medical issues. RECOMMENDATIONS: Recommend to continue continue symptomatic treatment. Await 2D echo with Doppler. Other than that, closely follow with Cardiology. Prognosis is guarded because of multiple complex medical issues. Further recommendations to follow. MMODL / IJN: [id number] / MTDD
[2023-02-28] MEDS: NIFEdipine XL 90 MG TAB.ER.24 PO SCH (20:31)
[2023-03-01] MEDS: HYDROcodone/APAP 5-325MG 1 EACH TAB PO PRN ×4 (00:02→20:57)
[2023-03-01] MEDS: HYDROmorphone 0.5 MG/0.5 ML SYRINGE IVP PRN (03:22)
[2023-03-01] MEDS: carvediloL 12.5 MG TAB PO SCH ×2 (06:48→17:13)
[2023-03-01] MEDS: CALCIUM ACETATE 667 MG TAB PO SCH ×3 (06:48→17:14)
[2023-03-01] MEDS: hydrALAZINE HCL 50 MG TAB PO SCH ×3 (08:36→20:57)
[2023-03-01] MEDS: NIFEdipine XL 90 MG TAB.ER.24 PO SCH ×2 (08:36→20:58)
[2023-03-01] MEDS: PANTOPRAZOLE 40 MG/10 ML VIAL IVP SCH (08:36)
[2023-03-01] MEDS: CINACALCET 30 MG TAB PO SCH ×2 (08:37→14:55)
[2023-03-01 09:49] LABS: Anisocytosis Slight; Basophils % (A) 1 %; Eosinophils # (A) 0.3 k/uL (0-0.7); Eosinophils % (A) 8 %; HCT 30.8 % (34.0-46.0); Hypochromasia Slight; Lymphocytes % (A) 25 %; MCH 30.1 pg (25.0-35.0); MCHC 32.4 g/dL (31.0-37.0); MCV 92.6 fL (80.0-100.0); Mean Platelet Volume 9.2; Monocytes # (A) 0.1 k/uL (0-1.0); Monocytes % (A) 4 %; Neutrophils # (A) 2.5 k/uL (1.3-7.7); Neutrophils % (A) 62 %; Platelet Count 109 k/uL (150-450); RBC 3.32 m/uL (3.80-5.40); RDW 17.9 % (11.5-15.5); WBC 4.1 k/uL (3.8-10.6)
[2023-03-01 09:57] LABS: African American GFR (CKD) 6 (>60 ml/min/1.73 sqM); Carbon Dioxide 26 mmol/L (22-30); Glucose 91 mg/dL (74-99); Non-African American GFR(CKD) 5 (>60 ml/min/1.73 sqM); Potassium 4.6 mmol/L (3.5-5.1); Sodium 133 mmol/L (137-145)
[2023-03-01 09:58] LABS: Blood Urea Nitrogen 64 mg/dL (7-17); Calcium 7.5 mg/dL (8.4-10.2)
[2023-03-01 10:20] LABS: Anion Gap 9 mmol/L; Chloride 98 mmol/L (98-107)
--- NOTE | 2023-03-01 11:42 | P.PN ---
Subjective This is a pleasant 52 years old -[place] female with past medical history of end-stage renal disease on hemodialysis, hypertension, asthma, chronic anemia and cardiomyopathy nonischemic with ejection fraction 35-40%, anxiety and depression she is Dr. magana patient and see Celia Doe in her office. She presents with chest pain and hyperkalemia. Potassium was 6.3 on admission and she underwent emergent hemodialysis. Potassium improved after that. 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 This morning patient still complaining of from chest pain, central nonradiating, no specific relieving factors, the pain changes severity with position. Associated with chest wall tenderness Patient undergoing hemodialysis Hemodynamically stable Labs reviewed Objective - Vital Signs Vital signs: Vital Signs Temp 98.6 F 03/01/23 08:31 Pulse 77 03/01/23 08:31 Resp 18 03/01/23 08:31 BP 133/98 03/01/23 08:31 Pulse Ox 94 L 03/01/23 08:31 FiO2 Intake & Output 02/28/23 03/01/23 03/01/23 18:59 06:59 18:59 Intake Total 847 222 Output Total 120 Balance 727 222 Weight 56 kg Intake: Oral 847 222 Output: Urine 120 - Exam GENERAL: The patient is alert and oriented x3, not in any acute distress. Well developed, well nourished. HEENT: Pupils are round and equally reacting to light. EOMI. No scleral icterus. No conjunctival pallor. Normocephalic, atraumatic. No pharyngeal erythema. No thyromegaly. CARDIOVASCULAR: S1 and S2 present. No murmurs, rubs, or gallops. PULMONARY: Chest is clear to auscultation, no wheezing or crackles. ABDOMEN: Soft, nontender, nondistended, normoactive bowel sounds. No palpable organomegaly. MUSCULOSKELETAL: No joint swelling or deformity. -EXTREMITIES: No cyanosis, clubbing, or pedal edema. Left upper extremity fistula working NEUROLOGICAL: Gross neurological examination did not reveal any focal deficits. SKIN: No rashes. no petechiae. - Labs CBC & Chem 7: 03/01/23 09:21 03/01/23 09:21 Labs: Abnormal Lab Results - Last 24 Hours (Table) 03/01/23 03/01/23 Range/Units 09:21 09:21 RBC 3.32 L (3.80-5.40) m/uL Hgb 10.0 L (11.4-16.0) gm/dL Hct 30.8 L (34.0-46.0) % RDW 17.9 H (11.5-15.5) % Plt Count 109 L (150-450) k/uL Sodium 133 L (137-145) mmol/L BUN 64 H (7-17) mg/dL Creatinine 8.80 H* (0.52-1.04) mg/dL Calcium 7.5 L (8.4-10.2) mg/dL Assessment and Plan Assessment: Chest pain most likely musculoskeletal. 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 Continue same treatment. Continue with symptomatic treatment. Resume home medication. Monitor labs and vitals. DVT and GI prophylaxis. Further recommendations as per clinical course of the patient DVT prophylaxis: Subcutaneous heparin GI Prophylaxis: Ppi Prognosis is guarded
--- NOTE | 2023-03-01 13:37 | P.PN ---
Subjective Patient is seen for follow-up for end-stage renal disease. Admitted to the hospital with complaints of chest pain. Patient was noted to be hyperkalemic which has improved with dialysis. Patient is seen on hemodialysis. Tolerating her treatment well. UF goal will be increased. No complaints today. Objective - Vital Signs Vital signs: Vital Signs Temp 98.6 F 03/01/23 08:31 Pulse 78 03/01/23 12:08 Resp 18 03/01/23 12:08 BP 151/89 03/01/23 12:08 Pulse Ox 96 03/01/23 12:08 FiO2 Intake & Output 02/28/23 03/01/23 03/01/23 18:59 06:59 18:59 Intake Total 847 222 Output Total 120 Balance 727 222 Weight 56 kg Intake: Oral 847 222 Output: Urine 120 - Exam Awake, comfortable, no acute distress Examination of the heart S1 and S2 Examination of the lungs bilateral breath sounds are heard Abdomen is soft nontender Examination lower extremities shows no evidence of edema AS400 PROGRAMMER exam grossly intact - Labs CBC & Chem 7: 03/01/23 09:21 03/01/23 09:21 Labs: Abnormal Lab Results - Last 24 Hours (Table) 03/01/23 03/01/23 Range/Units 09:21 09:21 RBC 3.32 L (3.80-5.40) m/uL Hgb 10.0 L (11.4-16.0) gm/dL Hct 30.8 L (34.0-46.0) % RDW 17.9 H (11.5-15.5) % Plt Count 109 L (150-450) k/uL Sodium 133 L (137-145) mmol/L BUN 64 H (7-17) mg/dL Creatinine 8.80 H* (0.52-1.04) mg/dL Calcium 7.5 L (8.4-10.2) mg/dL Assessment and Plan Assessment: 1. End-stage renal disease on hemodialysis 2. Hyperkalemia improved with dialysis 3. Chest pain, atypical 4. CK D mineral bone disorder Plan: Increase UF goal to about 3-3.2 L with hemodialysis today Stable for discharge from nephrology standpoint
--- NOTE | 2023-03-01 17:35 | CA ---
Transthoracic Echo Report Name: Rosi Winslow Age: 32 Gender: F : 1990 Exam Date: 03/01/2023 10:26 Exam Location: [facility] Ht (in): 62 Wt (lb): 125 Ordering Physician: Agnieszka Travis MD Attending/Referring Phys: Airport Ramp Supervisor Vance Fernandez Procedure CPT: Indications: pericardoal effusion Cardiac Hx: Technical Quality: Good Contrast 1: Total Dose (mL): Contrast 2: Total Dose (mL): MEASUREMENTS (Male / Female) Normal Values 2D ECHO LV Diastolic Diameter PLAX 5.2 cm 4.2 - 5.9 / 3.9 - 5.3 cm LV Systolic Diameter PLAX 3.4 cm IVS Diastolic Thickness 1.6 cm 0.6 - 1.0 / 0.6 - 0.9 cm LVPW Diastolic Thickness 1.9 cm 0.6 - 1.0 / 0.6 - 0.9 cm LV Relative Wall Thickness 0.7 RV Internal Dim ED PLAX 2.5 cm LA Volume 82.3 cm??? 18 - 58 / 22 - 52 cm??? DOPPLER AV Peak Velocity 231.7 cm/s AV Peak Gradient 21.5 mmHg AI Peak Velocity 471.6 cm/s AI Peak Gradient 89.0 mmHg AI Pressure Half Time 849.0 ms LVOT Peak Velocity 121.3 cm/s LVOT Peak Gradient 5.9 mmHg MV Peak Velocity 184.0 cm/s MV Peak Gradient 13.5 mmHg MV Mean Velocity 92.7 cm/s MV Mean Gradient 4.3 mmHg MV Velocity Time Integral 41.4 cm Mitral E Point Velocity 172.6 cm/s Mitral A Point Velocity 106.0 cm/s Mitral E to A Ratio 1.6 MV Deceleration Time 214.4 ms TR Peak Velocity 382.9 cm/s TR Peak Gradient 58.7 mmHg Right Ventricular Systolic Press 63.7 mmHg PV Peak Velocity 154.0 cm/s PV Peak Gradient 9.5 mmHg FINDINGS Left Ventricle Normal LV size. Severe concentric LVH. Right Ventricle Normal right ventricular size. RVSP= 68mmhg. Right Atrium RA Area= 24cm2 Left Atrium LA Volume Index= 52.5ml/m2 Mitral Valve Mitral valve thickened. Mild MR. Aortic Valve Trileaflet aortic valve. Moderate AI. Tricuspid Valve Structurally normal tricuspid valve. Moderate to severe TR. Pulmonic Valve Pulmonic valve not well visualized. Moderate PI. Pericardium Trace pericardial effusion. Aorta Normal size aortic root and proximal ascending aorta. CONCLUSIONS Severe left ventricular hypertrophy Left ventricular ejection fraction 55-60% RVSP 68 Moderate aortic insufficiency Moderate to severe tricuspid regurgitation Trace pericardial effusion Previewed by: Dr. Carlos Enrique Avina DO (Electronically Signed) Final Date: 01 March 2023 17:34
[2023-03-01] MEDS: HEPARIN SODIUM,PORCINE/PF 5,000 UNIT/0.5 ML SYRINGE SQ SCH (20:56)
[2023-03-02] MEDS: CALCIUM ACETATE 667 MG TAB PO SCH ×3 (05:56→17:08)
[2023-03-02] MEDS: carvediloL 12.5 MG TAB PO SCH ×2 (05:57→17:08)
[2023-03-02] MEDS ORDERED: polyethylene glycoL 3350 17 GM POWD.PACK PO STA (07:49)
[2023-03-02] MEDS: DOCUSATE 100 MG CAP PO SCH ×2 (08:50→23:00)
[2023-03-02] MEDS: NIFEdipine XL 90 MG TAB.ER.24 PO SCH ×2 (08:50→21:09)
[2023-03-02] MEDS: hydrALAZINE HCL 50 MG TAB PO SCH ×3 (08:50→21:09)
[2023-03-02] MEDS: PANTOPRAZOLE 40 MG/10 ML VIAL IVP SCH (08:51)
[2023-03-02] MEDS: HYDROcodone/APAP 5-325MG 1 EACH TAB PO PRN ×3 (08:51→21:11)
[2023-03-02 08:59] LABS: African American GFR (CKD) 8 (>60 ml/min/1.73 sqM); Anion Gap 7 mmol/L; Blood Urea Nitrogen 44 mg/dL (7-17); Calcium 7.6 mg/dL (8.4-10.2); Carbon Dioxide 31 mmol/L (22-30); Chloride 97 mmol/L (98-107); Glucose 85 mg/dL (74-99); Non-African American GFR(CKD) 7 (>60 ml/min/1.73 sqM); Potassium 4.4 mmol/L (3.5-5.1); Sodium 135 mmol/L (137-145)
[2023-03-02] MEDS: ONDANSETRON 4 MG/2 ML VIAL IVP PRN (08:59)
[2023-03-02] MEDS: HEPARIN SODIUM,PORCINE/PF 5,000 UNIT/0.5 ML SYRINGE SQ SCH ×2 (09:49→21:10)
[2023-03-02] MEDS: DICLOFENAC SODIUM GEL 100 GM TUBE TOPICAL SCH ×4 (11:15→23:00)
--- NOTE | 2023-03-02 12:26 | P.PN ---
Subjective Patient is seen for follow-up for end-stage renal disease. Admitted to the hospital with complaints of chest pain. Patient was noted to be hyperkalemic which has improved with dialysis. Tolerated dialysis well yesterday with UF of 3.5 L. Complaining of constipation today. Status post MiraLAX Objective - Vital Signs Vital signs: Vital Signs Temp 98.4 F 03/02/23 08:00 Pulse 72 03/02/23 11:55 Resp 16 03/02/23 11:55 BP 139/80 03/02/23 11:55 Pulse Ox 95 03/02/23 11:55 FiO2 Intake & Output 03/01/23 03/02/23 03/02/23 18:59 06:59 18:59 Intake Total 1166 Output Total 3500 Balance -2334 Weight 52.9 kg Intake: Oral 666 Hemodialysis 500 Output: Hemodialysis 3500 Other: # Voids 0 - Exam Awake, comfortable, no acute distress Examination of the heart S1 and S2 Examination of the lungs bilateral breath sounds are heard Abdomen is soft nontender Examination lower extremities shows no evidence of edema DIGGING MACHINE OPERATOR exam grossly intact - Labs CBC & Chem 7: 03/01/23 09:21 03/02/23 08:23 Labs: Abnormal Lab Results - Last 24 Hours (Table) 03/02/23 Range/Units 08:23 Sodium 135 L (137-145) mmol/L Chloride 97 L (98-107) mmol/L Carbon Dioxide 31 H (22-30) mmol/L BUN 44 H (7-17) mg/dL Creatinine 7.09 H* (0.52-1.04) mg/dL Calcium 7.6 L (8.4-10.2) mg/dL Assessment and Plan Assessment: 1. End-stage renal disease on hemodialysis 2. Hyperkalemia improved with dialysis 3. Chest pain, atypical 4. CK D mineral bone disorder 5. Constipation Plan: Hemodialysis in a.m. if patient is not discharged Stable for discharge from nephrology standpoint
[2023-03-03] MEDS: CALCIUM ACETATE 667 MG TAB PO SCH ×2 (06:29→12:54)
[2023-03-03] MEDS: carvediloL 12.5 MG TAB PO SCH (06:30)
[2023-03-03] MEDS: hydrALAZINE HCL 50 MG TAB PO SCH (08:04)
[2023-03-03] MEDS: DOCUSATE 100 MG CAP PO SCH (08:04)
[2023-03-03] MEDS: NIFEdipine XL 90 MG TAB.ER.24 PO SCH (08:04)
[2023-03-03] MEDS: HEPARIN SODIUM,PORCINE/PF 5,000 UNIT/0.5 ML SYRINGE SQ SCH (08:04)
[2023-03-03] MEDS: PANTOPRAZOLE 40 MG/10 ML VIAL IVP SCH (08:04)
[2023-03-03] MEDS: CINACALCET 30 MG TAB PO SCH (08:06)
[2023-03-03] MEDS: DICLOFENAC SODIUM GEL 100 GM TUBE TOPICAL SCH ×2 (08:21→11:32)
[2023-03-03] MEDS: HYDROcodone/APAP 5-325MG 1 EACH TAB PO PRN (09:16)
--- NOTE | 2023-03-03 12:39 | P.PN ---
Subjective Patient is seen for follow-up for end-stage renal disease. Admitted to the hospital with complaints of chest pain. Patient was noted to be hyperkalemic which has improved with dialysis. She is currently seen on hemodialysis. Tolerating treatment well. No complaints today. Objective - Vital Signs Vital signs: Vital Signs Temp 97.6 F 03/03/23 08:00 Pulse 71 03/03/23 12:00 Resp 17 03/03/23 12:00 BP 130/92 03/03/23 12:00 Pulse Ox 95 03/03/23 12:00 FiO2 Intake & Output 03/02/23 03/03/23 03/03/23 18:59 06:59 18:59 Intake Total 540 Balance 540 Weight 53.9 kg Intake: Oral 540 Other: # Voids 0 0 - Exam Awake, comfortable, no acute distress Examination lower extremities shows no evidence of edema SIGN DESIGNER exam grossly intact - Labs CBC & Chem 7: 03/01/23 09:21 03/02/23 08:23 Assessment and Plan Assessment: 1. End-stage renal disease on hemodialysis 2. Hyperkalemia improved with dialysis 3. Chest pain, atypical 4. CK D mineral bone disorder 5. Constipation Plan: Stable for discharge from nephrology standpoint
[2023-03-03 16:23] VITALS: BP 133/85; PULSE 76; RESP 16; TEMP 98.3
== END 2023-03-03 13:17 | disposition home or self-care (01) | DRG 640 ==
LOC: EC 13:28 → 3SCARD 15:34
PROVIDERS: ADMIT Hospitalist; ATTEND Hospitalist
PROC: 5A1D70Z Performance of Urinary Filtration, Intermittent, Less than 6 Hours Per Day (ICD-10-PCS; principal; 2023-02-27)
DX: E87.5 Hyperkalemia (principal); N18.6 End stage renal disease; Q61.3 Polycystic kidney, unspecified; T86.19 Other complication of kidney transplant; I13.2 Hypertensive heart and chronic kidney disease with heart failure and with stage 5 chronic kidney disease, or end stage renal disease; I31.39 Other pericardial effusion (noninflammatory); I42.8 Other cardiomyopathies; I50.32 Chronic diastolic (congestive) heart failure; Y83.0 Surgical operation with transplant of whole organ as the cause of abnormal reaction of the patient, or of later complication, without mention of misadventure at the time of the procedure; E83.9 Disorder of mineral metabolism, unspecified; Z79.899 Other long term (current) drug therapy; Z99.2 Dependence on renal dialysis; D63.1 Anemia in chronic kidney disease; I08.1 Rheumatic disorders of both mitral and tricuspid valves; R77.8 Other specified abnormalities of plasma proteins; I27.20 Pulmonary hypertension, unspecified; K59.00 Constipation, unspecified; Z88.0 Allergy status to penicillin; Z88.8 Allergy status to other drugs, medicaments and biological substances; G89.29 Other chronic pain; M54.50 Low back pain, unspecified
CPT/HCPCS: 36415; 71046; 80048; 80053; 83735; 83880; 84132; 84484; 85025; 85379; 85610; 85652; 85730; 86140; 90935; 93005; 93306; 94640; 94760; 96365; 96368; 96375; 99291

== ENCOUNTER 2023-03-23 04:42 | Inpatient (IN) | payer MEDICARE, BC, OTHER ==
[2023-03-23] MEDS ORDERED: HYDROmorphone 1 MG/ML 1 ML SYRINGE IVP STA (05:03)
--- NOTE | 2023-03-23 05:06 | ED ---
General Adult HPI - General Chief complaint: Extremity Injury, Upper Stated complaint: dialysis port malfunction Time Seen by Provider: 03/23/23 04:49 Source: patient Mode of arrival: ambulatory Limitations: no limitations - History of Present Illness Initial comments: Dictation was produced using [employer] dictation software. please excuse any gramma tical, word or spelling errors. Chief Complaint: 32-year-old female presents to the emergency room for left extremity pain History of Present Illness: 32-year-old female she has past medical history of end-stage renal disease secondary to polycystic kidney disease. She states that she is here for severe left upper extremity pain. Patient has history of dialysis fistula on the left upper extremity. Patient is a poor historian. She isn't in acute distress. States that she has no numbness to her hand. Denies any chest pain. States that the pain is only in her left arm. The ROS documented in this emergency department record has been reviewed and confirmed by me. Those systems with pertinent positive or negative responses have been documented in the HPI. All other systems are other negative and/or noncontributory. - Related Data Home Medications Medication Instructions Recorded Confirmed Albuterol Sulfate [Proair Hfa] 2 puff INHALATION RT-Q6H PRN 01/22/16 02/27/23 hydrALAZINE HCL [Apresoline] 100 mg PO TID 11/16/18 02/27/23 Cinacalcet HCl [Sensipar] 120 mg PO MOWEFR 02/26/19 02/27/23 Calcium Acetate [PhosLo] 2,668 mg PO TID-W/MEALS 05/01/20 02/27/23 Lidocaine-Prilocaine Cream [Emla 1 applic TOPICAL DAILY PRN 05/01/20 02/27/23 Cream 2.5%/2.5%] calcitrioL [Calcitriol] 3 mcg PO MOWEFR 10/29/21 02/27/23 hydrOXYzine HCL [Atarax] 25 mg PO TID PRN 10/29/21 02/27/23 Acetaminophen Tab [Tylenol] 1,000 mg PO Q6HR PRN 05/26/22 02/27/23 Calcium Acetate [PhosLo] 667 - 1,334 mg PO BID PRN 05/26/22 02/27/23 Pantoprazole [Protonix] 40 mg PO DAILY PRN 01/18/23 02/27/23 Ondansetron Odt [Zofran ODT] 4 mg PO Q12HR PRN 02/27/23 02/27/23 Previous Rx's Medication Instructions Recorded HYDROcodone/APAP 5-325MG [[place] 1 tab PO Q6HR PRN #4 tab 01/20/23 5-325] carvediloL [Coreg*] 37.5 mg PO BID-W/MEALS 30 Days 01/20/23 #180 tab Docusate [Colace] 100 mg PO BID 3 Days #6 cap 03/02/23 NIFEdipine XL [Procardia XL] 90 mg PO BID #60 tab 03/02/23 Allergies Allergy/AdvReac Type Severity Reaction Status Date / Time vancomycin Allergy Anaphylaxis Verified 03/23/23 04:46 hydralazine AdvReac Rapid Verified 03/23/23 04:46 Heart Rate WHEN GIVEN THROUGH IV Review of Systems ROS Statement: Those systems with pertinent positive or pertinent negative responses have been documented in the HPI. ROS Other: All systems not noted in ROS Statement are negative. 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 History of Any Multi-Drug Resistant Organisms: None Reported Past Surgical History: Heart Catheterization, Hernia Repair Additional Past Surgical History / Comment(s): 06/14/18 cardiac cath at [facility] to check coronary pressures, 11/15/09 Failed kidney transplant R pelvis, dialysis catheter in and out, current L upper arm AVG, supra pubic hernia repair, transvaginal mesh, wisdom teeth extraction with anesthesia, 2016 failed kidney transplant Past Anesthesia/Blood Transfusion Reactions: No Reported Reaction Additional Past Anesthesia/Blood Transfusion Reaction / Comment(s): Pt has received blood in past without reaction. Past Psychological History: Anxiety, Depression Smoking Status: Former smoker Past Alcohol Use History: None Reported Past Drug Use History: None Reported, Marijuana - Past Family History Father Family Medical History: No Reported History Additional Family Medical History / Comment(s): Father is healthy and is 62 yrs old. Mother Family Medical History: No Reported History Additional Family Medical History / Comment(s): Mother is healthy and is 60 yrs old. General Exam - General Exam Comments Initial Comments: PHYSICAL EXAM: General Impression: Alert and oriented x3, acute distress secondary to pain HEENT: Normocephalic atraumatic, extra-ocular movements intact, pupils equal and reactive to light bilaterally, mucous membranes moist. Cardiovascular: Heart regular rate and rhythm Chest: Able to complete full sentences, no retractions, no tachypnea Left upper extremity: Intact radial pulse, no gross deformity Abdomen: abdomen soft, non-tender, non-distended, no organomegaly Musculoskeletal: Pulses present and equal in all extremities, no peripheral edema Motor: no focal deficits noted Neurological: CN II-XII grossly intact, no focal motor or sensory deficits noted Skin: Intact with no visualized rashes Limitations: no limitations Course Vital Signs 03/23/23 03/23/23 04:45 05:46 Temperature 97.8 F Pulse Rate 79 Respiratory 18 Rate Blood Pressure 215/144 199/102 O2 Sat by Pulse 99 Oximetry Medical Decision Making - Medical Decision Making Was pt. sent in by a medical professional or institution (, PA, SURVEILLANCE SUPERVISOR, urgent care, hospital, or shelter...) When possible be specific @ -No Did you speak to anyone other than the patient for history (EMS, parent, family, police, friend...)? What history was obtained from this source @ -No Did you review nursing and triage notes (agree or disagree)? Why? @ -I reviewed and agree with nursing and triage notes Were old charts reviewed (outside hosp., previous admission, EMS record, old EKG, old radiological studies, urgent care reports/EKG's, shelter records)? Report findings @ -No old charts were reviewed Differential Diagnosis (chest pain, altered mental status, abdominal pain women, abdominal pain men, vaginal bleeding, musculoskeletal, weakness, fever, dyspnea, syncope, headache, dizziness, GI bleed, back pain, seizure, CVA, palpatations, mental health)? @ -not applicable EKG interpreted by me (3pts min.). @ -None done X-rays interpreted by me (1pt min.). @ -None done CT interpreted by me (1pt min.). @ -No aortic aneurysm or dissection U/S interpreted by me (1pt. min.). @ -None done What testing was considered but not performed or refused? (CT, X-rays, U/S, labs)? Why? @ -None What meds were considered but not given or refused? Why? @ -None Did you discuss the management of the patient with other professionals (professionals i.e. , PA, SURVEILLANCE SUPERVISOR, lab, RT, psych nurse, social media strategist, probate judge, teacher, licensed loan officer assistant, registered nurse hh case manager)? Give summary @ -Case discussed with Abida Adames for admission Was smoking cessation discussed for >3mins.? @ -No Was critical care preformed (if so, how long)? @ -No Were there social determinants of health that impacted care today? How? (Homelessness, low income, unemployed, alcoholism, drug addiction, transportation, low edu. Level, literacy, decrease access to med. care, long-term, rehab)? @ -No Was there de-escalation of care discussed even if they declined (Discuss DNR or withdrawal of care, Hospice)? DNR status @ -No What co-morbidities impacted this encounter? (DM, HTN, Smoking, COPD, CAD, Cancer, CVA, ARF, Chemo, Hep., AIDS, mental health diagnosis, sleep apnea, morbid obesity)? @ -History of ESRD Was patient admitted / discharged? Hospital course, mention meds given and rou te, prescriptions, significant lab abnormalities, going to OR and other pertinent info. @ -32-year-old female presents emergency department with severe left upper extremity pain. Patient states the pain is to her posterior shoulder and over the posterior upper arm. Patient in severe acute distress. Vital signs shows elevated blood pressure. Patient states typically emergency Department with high blood pressures. Patient given Dilaudid. Went to CT for CT angiography for concerns of dissection versus other life/extremity threatening pathologic process. CT does not show any significant cause of her pain. Reevaluated after dose of Dilaudid with still some pain. Patient will be admitted for intractable pain. Nephrology consulted per request by radiology team who requires patient receive dialysis with a 24 hours secondary contrast exposure. Undiagnosed new problem with uncertain prognosis? @ -No Drug Therapy requiring intensive monitoring for toxicity (Heparin, Nitro, Insulin, Cardizem)? @ -No Were any procedures done? @ -No Diagnosis/symptom? Acute, or Chronic, or Acute on Chronic? Uncomplicated (without systemic symptoms) or Complicated (systemic symptoms)? @ -1. Intractable left upper extremity pain, no obvious source Side effects of treatment? @ -No Exacerbation, Progression, or Severe Exacerbation? @ -No Poses a threat to life or bodily function? How? (Chest pain, [place], [place], pneumonia, PE, COPD, DKA, ARF, appy, cholecystitis, CVA, Diverticulitis, Homicidal, Suicidal, threat to staff... and all critical care pts) @ -yes - Lab Data Result diagrams: 03/23/23 05:45 03/23/23 05:45 Lab Results 03/23/23 03/23/23 03/23/23 Range/Units 05:45 05:45 05:50 WBC 4.6 (3.8-10.6) k/uL RBC 3.33 L (3.80-5.40) m/uL Hgb 9.7 L (11.4-16.0) gm/dL Hct 30.6 L (34.0-46.0) % MCV 91.9 (80.0-100.0) fL MCH 29.2 (25.0-35.0) pg MCHC 31.7 (31.0-37.0) g/dL RDW 17.7 H (11.5-15.5) % Plt Count 149 L (150-450) k/uL MPV 9.2 Neutrophils % 55 % Lymphocytes % 31 % Monocytes % 5 % Eosinophils % 8 % Basophils % 0 % Neutrophils # 2.5 (1.3-7.7) k/uL Lymphocytes # 1.4 (1.0-4.8) k/uL Monocytes # 0.2 (0-1.0) k/uL Eosinophils # 0.4 (0-0.7) k/uL Basophils # 0.0 (0-0.2) k/uL Hypochromasia Slight Anisocytosis Slight PT 11.9 (9.0-12.0) sec INR 1.1 (<1.2) APTT 26.5 (22.0-30.0) sec Sodium 133 L (137-145) mmol/L Potassium 4.7 (3.5-5.1) mmol/L Chloride 97 L (98-107) mmol/L Carbon Dioxide 28 (22-30) mmol/L Anion Gap 8 mmol/L BUN 31 H (7-17) mg/dL Creatinine 7.16 H* (0.52-1.04) mg/dL Est GFR (CKD-EPI)AfAm 8 (>60 ml/min/1.73 sqM) Est GFR (CKD-EPI)NonAf 7 (>60 ml/min/1.73 sqM) Glucose 90 (74-99) mg/dL Calcium 7.5 L (8.4-10.2) mg/dL Disposition Clinical Impression: Intractable pain Disposition: ADMITTED IP TO THIS HOSP Condition: Fair Referrals: Karo Alicea MD [Primary Care Provider] - 1-2 days Decision Time: 06:29
[2023-03-23 05:52] LABS: Anisocytosis Slight; Basophils % (A) 0 %; Eosinophils # (A) 0.4 k/uL (0-0.7); Eosinophils % (A) 8 %; HCT 30.6 % (34.0-46.0); HGB 9.7 gm/dL (11.4-16.0); Hypochromasia Slight; Lymphocytes # (A) 1.4 k/uL (1.0-4.8); Lymphocytes % (A) 31 %; MCH 29.2 pg (25.0-35.0); MCHC 31.7 g/dL (31.0-37.0); MCV 91.9 fL (80.0-100.0); Mean Platelet Volume 9.2; Monocytes # (A) 0.2 k/uL (0-1.0); Monocytes % (A) 5 %; Neutrophils # (A) 2.5 k/uL (1.3-7.7); Neutrophils % (A) 55 %; Platelet Count 149 k/uL (150-450); RBC 3.33 m/uL (3.80-5.40); RDW 17.7 % (11.5-15.5); WBC 4.6 k/uL (3.8-10.6)
[2023-03-23 06:04] LABS: African American GFR (CKD) 8 (>60 ml/min/1.73 sqM); Anion Gap 8 mmol/L; Blood Urea Nitrogen 31 mg/dL (7-17); Calcium 7.5 mg/dL (8.4-10.2); Carbon Dioxide 28 mmol/L (22-30); Chloride 97 mmol/L (98-107); Glucose 90 mg/dL (74-99); Non-African American GFR(CKD) 7 (>60 ml/min/1.73 sqM); Potassium 4.7 mmol/L (3.5-5.1); Sodium 133 mmol/L (137-145)
[2023-03-23 06:05] LABS: INR 1.1 (<1.2); Partial Thromboplastin Time 26.5 sec (22.0-30.0); Prothrombin Time 11.9 sec (9.0-12.0)
--- NOTE | 2023-03-23 06:16 | CT ---
EXAM: CT Angiography Chest With Intravenous Contrast CLINICAL HISTORY: ITS.REASON CT Reason: severe arm pain TECHNIQUE: Axial computed tomographic angiography images of the chest without and with intravenous contrast. CTDI is 49.1 mGy and DLP is 503.4 mGy-cm. This CT exam was performed using one or more of the following dose reduction techniques: automated exposure control, adjustment of the mA and/or kV according to patient size, and/or use of iterative reconstruction technique. MIP reconstructed images were created and reviewed. COMPARISON: No relevant prior studies available. FINDINGS: Pulmonary arteries: Dilated, 37 mm. No pulmonary embolism. Aorta: No acute findings. No thoracic aortic aneurysm. Other veins: Dilated left brachial, axillary and subclavian vein. Lungs: Unremarkable. No mass. No consolidation. Subsegmental atelectasis. Pleural space: Unremarkable. No significant effusion. No pneumothorax. Heart: No cardiomegaly. No significant pericardial effusion. No evidence of RV dysfunction. Probable mild LVH. Bones/joints: No acute fracture. No dislocation. Soft tissues: Atrophic iroquois kidneys.. Tiny thyroid nodules, prominent thyroid. Lymph nodes: Unremarkable. No enlarged lymph nodes. Other findings: Left brachial AV fistula, with 30 mm varix immediately distal to the fistula. IMPRESSION: 1. Left upper extremity AV fistula with dilated veins, and a 30 mm varix 2. Dilated central pulmonary artery, question pulmonary arterial hypertension or increased flow. 3. Probable left ventricular hypertrophy. 4. Atrophic iroquois kidneys.
--- NOTE | 2023-03-23 06:17 | CT ---
EXAM: CT Angiography of the Left Upper Extremity With Intravenous Contrast CLINICAL HISTORY: ITS.REASON CT Reason: severe arm pain TECHNIQUE: Axial computed tomographic angiography images of the left upper extremity with intravenous contrast. This CT exam was performed using one or more of the following dose reduction techniques: automated exposure control, adjustment of the mA and/or kV according to patient size, and/or use of iterative reconstruction technique. MIP reconstructed images were created and reviewed. COMPARISON: No relevant prior studies available. FINDINGS IMPRESSION: Please see the concurrent CTA chest dictation.
[2023-03-23] MEDS ORDERED: NALOXONE 0.4 MG/ML 1 ML VIAL IV PRN (06:23)
[2023-03-23] MEDS: SODIUM CHLORIDE 0.9% 1,000 ML IV SCH (06:35)
[2023-03-23] MEDS ORDERED: ONDANSETRON 4 MG/2 ML VIAL IVP STA (08:45)
[2023-03-23] MEDS: hydrALAZINE HCL 50 MG TAB PO SCH ×3 (09:00→22:22)
[2023-03-23] MEDS ORDERED: ONDANSETRON 4 MG/2 ML VIAL IVP PRN (11:47)
[2023-03-23] MEDS: HYDROmorphone 0.5 MG/0.5 ML SYRINGE IVP PRN ×2 (12:37→16:46)
[2023-03-23] MEDS ORDERED: ACETAMINOPHEN TAB 500 MG TAB PO PRN (12:52)
[2023-03-23] MEDS ORDERED: DOCUSATE 100 MG CAP PO PRN (12:52)
[2023-03-23] MEDS ORDERED: PANTOPRAZOLE 40 MG TABLET PO PRN (12:52)
[2023-03-23] MEDS ORDERED: ALBUTEROL NEBULIZED 2.5 MG/3 ML INHALATION PRN (12:52)
[2023-03-23] MEDS ORDERED: CALCIUM ACETATE 667 MG TAB PO PRN (12:52)
[2023-03-23] MEDS ORDERED: LIDOCAINE-PRILOCAINE 2.5-2.5% CREAM 5 GM TUBE TOPICAL PRN (12:52)
[2023-03-23] MEDS ORDERED: ONDANSETRON ODT 4 MG TAB PO PRN (12:52)
--- NOTE | 2023-03-23 13:07 | P.HPIM ---
History of Present Illness 32-year-old female with the history of end-stage renal disease from polycystic kidney disease came in with severe neck pain unable to lift her left hand and left upper extremity pain radiating to back of her hand which was initially believed to be the pain coming from the fistula in the left hand. Patient had a CT angios the fistula which didn't show any significant abnormality. Patient is having severe pain which is requiring IV Dilaudid for pain. Patient doesn't have any fevers chills. Patient dialysis he usually on Mondays, Wednesdays and Fridays. Patient did complete her hemodialysis yesterday. Patient blood pressure is bit elevated. REVIEW OF SYSTEMS: CONSTITUTIONAL: No fever, no malaise, no fatigue. HEENT: No recent visual problems or hearing problems. Denied any sore throat. CARDIOVASCULAR: No chest pain, orthopnea, PND, no palpitations, no syncope. PULMONARY: No shortness of breath, no cough, no hemoptysis. GASTROINTESTINAL: No diarrhea, no nausea, no vomiting, no abdominal pain. NEUROLOGICAL: No headaches, no weakness, no numbness. HEMATOLOGICAL: Denies any bleeding or petechiae. GENITOURINARY: Denies any burning micturition, frequency, or urgency. MUSCULOSKELETAL/RHEUMATOLOGICAL: Neck pain and left arm pain ENDOCRINE: Denies any polyuria or polydipsia. The rest of the 14-point review of systems is negative. PHYSICAL EXAMINATION: GENERAL: The patient is alert and oriented x3, not in any acute distress. Well developed, well nourished. HEENT: Pupils are round and equally reacting to light. EOMI. No scleral icterus. No conjunctival pallor. Normocephalic, atraumatic. No pharyngeal erythema. No thyromegaly. CARDIOVASCULAR: S1 and S2 present. No murmurs, rubs, or gallops. PULMONARY: Chest is clear to auscultation, no wheezing or crackles. ABDOMEN: Soft, nontender, nondistended, normoactive bowel sounds. No palpable organomegaly. MUSCULOSKELETAL: Patient has significant pain in the neck barely able to lift the left shoulder EXTREMITIES: No cyanosis, clubbing, or pedal edema. NEUROLOGICAL: Gross neurological examination did not reveal any focal deficits. SKIN: No rashes. Assessment and plan -Possible cervical degenerative disc disease with may be a rotator cuff involvement: For now will continue with the pain medications will consult the spinal specialist. -uncontrolled elevated blood pressure: Patient will be resumed on her home medications, patient doesn't have hypertensive urgency will not require any IV antihypertensive medications. 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 History of Any Multi-Drug Resistant Organisms: None Reported Past Surgical History: Heart Catheterization, Hernia Repair Additional Past Surgical History / Comment(s): 06/14/18 cardiac cath at [facility] to check coronary pressures, 11/15/09 Failed kidney transplant R pelvis, dialysis catheter in and out, current L upper arm AVG, supra pubic hernia repair, transvaginal mesh, wisdom teeth extraction with anesthesia, 2016 failed kidney transplant Past Anesthesia/Blood Transfusion Reactions: No Reported Reaction Additional Past Anesthesia/Blood Transfusion Reaction / Comment(s): Pt has received blood in past without reaction. Past Psychological History: Anxiety, Depression Smoking Status: Former smoker Past Alcohol Use History: None Reported Past Drug Use History: None Reported, Marijuana - Past Family History Father Family Medical History: No Reported History Additional Family Medical History / Comment(s): Father is healthy and is 62 yrs old. Mother Family Medical History: No Reported History Additional Family Medical History / Comment(s): Mother is healthy and is 60 yrs old. Medications and Allergies Home Medications Medication Instructions Recorded Confirmed Type Albuterol Sulfate [Proair Hfa] 2 puff INHALATION RT-Q6H PRN 01/22/16 03/23/23 History hydrALAZINE HCL [Apresoline] 100 mg PO TID 11/16/18 03/23/23 History Cinacalcet HCl [Sensipar] 120 mg PO MOWEFR 02/26/19 03/23/23 History Calcium Acetate [PhosLo] 2,668 mg PO TID-W/MEALS 05/01/20 03/23/23 History Lidocaine-Prilocaine Cream [Emla 1 applic TOPICAL DAILY PRN 05/01/20 03/23/23 History Cream 2.5%/2.5%] calcitrioL [Calcitriol] 3 mcg PO MOWEFR 10/29/21 03/23/23 History hydrOXYzine HCL [Atarax] 25 mg PO TID PRN 10/29/21 03/23/23 History Acetaminophen Tab [Tylenol] 1,000 mg PO Q6HR PRN 05/26/22 03/23/23 History Calcium Acetate [PhosLo] 667 - 1,334 mg PO BID PRN 05/26/22 03/23/23 History Pantoprazole [Protonix] 40 mg PO DAILY PRN 01/18/23 03/23/23 History HYDROcodone/APAP 5-325MG [[place] 1 tab PO Q6HR PRN #4 tab 01/20/23 03/23/23 Rx 5-325] carvediloL [Coreg*] 37.5 mg PO BID-W/MEALS 30 Days 01/20/23 03/23/23 Rx #180 tab Ondansetron Odt [Zofran ODT] 4 mg PO Q12HR PRN 02/27/23 03/23/23 History NIFEdipine XL [Procardia XL] 90 mg PO BID #60 tab 03/02/23 03/23/23 Rx Docusate [Colace] 100 mg PO BID PRN 03/23/23 03/23/23 History Sodium Zirconium Cyclosilicate 10 gm PO DAILY 03/23/23 03/23/23 History [Lokelma] Allergies Allergy/AdvReac Type Severity Reaction Status Date / Time vancomycin Allergy Anaphylaxis Verified 03/23/23 07:36 hydralazine AdvReac Rapid Verified 03/23/23 07:36 Heart Rate WHEN GIVEN THROUGH IV Physical Exam Vitals: Vital Signs Temp Pulse Resp BP Pulse Ox 03/23/23 11:42 179/105 03/23/23 08:55 97.5 F L 69 20 200/119 95 03/23/23 06:27 98.4 F 74 14 207/110 97 03/23/23 05:46 199/102 03/23/23 04:45 97.8 F 79 18 215/144 99 Intake and Output 03/22/23 03/23/23 03/23/23 22:59 06:59 14:59 Other: Weight 54.431 kg Results CBC & Chem 7: 03/23/23 05:45 03/23/23 05:45 Labs: Abnormal Lab Results - Last 24 Hours (Table) 03/23/23 03/23/23 Range/Units 05:45 05:45 RBC 3.33 L (3.80-5.40) m/uL Hgb 9.7 L (11.4-16.0) gm/dL Hct 30.6 L (34.0-46.0) % RDW 17.7 H (11.5-15.5) % Plt Count 149 L (150-450) k/uL Sodium 133 L (137-145) mmol/L Chloride 97 L (98-107) mmol/L BUN 31 H (7-17) mg/dL Creatinine 7.16 H* (0.52-1.04) mg/dL Calcium 7.5 L (8.4-10.2) mg/dL
[2023-03-23] MEDS: NIFEdipine XL 90 MG TAB.ER.24 PO SCH ×2 (13:21→22:22)
[2023-03-23] MEDS ORDERED: hydrALAZINE HCL 20 MG/ML 1 ML VIAL IVP PRN (13:41)
--- NOTE | 2023-03-23 13:45 | P.NPCON ---
History of Present Illness - Reason for Consult end stage renal disease - History of Present Illness Reason for consultation: End-stage renal disease History of present illness: Patient is a 32-year-old female seen in renal consultation for end-stage renal disease. She is maintained on hemodialysis on Wednesday schedule. She has a left upper extremity AV fistula. Completed hemodialysis yesterday. Patient says last night she developed acute pain in her left upper extremity. She denies any trauma or injury. She underwent chest CTA which showed left upper extremity AV fistula dilated veins. Patient continues to be in pain. Blood pressure is high. Home antihypertensives have been resumed. Denies fever or chills. She has been vomiting. Patient doesn't have history of diabetes. She does have history of diastolic CHF with moderate to severe tricuspid regurgitation, moderate aortic insufficiency. Denies edema. No problems her dialysis yesterday. Vital signs are stable. Blood pressure high. General: No acute distress. HEENT: Head exam is unremarkable. LUNGS: No audible rhonchi or wheezes. HEART: Rate and Rhythm are regular. ABDOMEN: Nontender. EXTREMITITES: No edema. AV fistula thrill noted. 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 History of Any Multi-Drug Resistant Organisms: None Reported Past Surgical History: Heart Catheterization, Hernia Repair Additional Past Surgical History / Comment(s): 06/14/[address] [facility] to check coronary pressures, 11/15/09 Failed kidney transplant R pelvis, dialysis catheter in and out, current L upper arm AVG, supra pubic hernia repair, transvaginal mesh, wisdom teeth extraction with anesthesia, 2016 failed kidney transplant Past Anesthesia/Blood Transfusion Reactions: No Reported Reaction Additional Past Anesthesia/Blood Transfusion Reaction / Comment(s): Pt has received blood in past without reaction. Past Psychological History: Anxiety, Depression Smoking Status: Former smoker Past Alcohol Use History: None Reported Past Drug Use History: None Reported, Marijuana - Past Family History Father Family Medical History: No Reported History Additional Family Medical History / Comment(s): Father is healthy and is 62 yrs old. Mother Family Medical History: No Reported History Additional Family Medical History / Comment(s): Mother is healthy and is 60 yrs old. Medications and Allergies Home Medications Medication Instructions Recorded Confirmed Type RX: Albuterol Sulfate [Proair Hfa] 2 puff INHALATION RT-Q6H PRN 01/22/16 03/23/23 History RX: hydrALAZINE HCL [Apresoline] 100 mg PO TID 11/16/18 03/23/23 History RX: Cinacalcet HCl [Sensipar] 120 mg PO MOWEFR 02/26/19 03/23/23 History RX: Calcium Acetate [PhosLo] 2,668 mg PO TID-W/MEALS 05/01/20 03/23/23 History RX: Lidocaine-Prilocaine Cream 1 applic TOPICAL DAILY PRN 05/01/20 03/23/23 History [Emla Cream 2.5%/2.5%] RX: calcitrioL [Calcitriol] 3 mcg PO MOWEFR 10/29/21 03/23/23 History RX: hydrOXYzine HCL [Atarax] 25 mg PO TID PRN 10/29/21 03/23/23 History RX: Acetaminophen Tab [Tylenol] 1,000 mg PO Q6HR PRN 05/26/22 03/23/23 History RX: Calcium Acetate [PhosLo] 667 - 1,334 mg PO BID PRN 05/26/22 03/23/23 History RX: Pantoprazole [Protonix] 40 mg PO DAILY PRN 01/18/23 03/23/23 History RX: HYDROcodone/APAP 5-325MG 1 tab PO Q6HR PRN #4 tab 01/20/23 03/23/23 Rx [[place] 5-325] RX: carvediloL [Coreg*] 37.5 mg PO BID-W/MEALS 30 Days 01/20/23 03/23/23 Rx #180 tab RX: Ondansetron Odt [Zofran ODT] 4 mg PO Q12HR PRN 02/27/23 03/23/23 History RX: NIFEdipine XL [Procardia XL] 90 mg PO BID #60 tab 03/02/23 03/23/23 Rx RX: Docusate [Colace] 100 mg PO BID PRN 03/23/23 03/23/23 History Sodium Zirconium Cyclosilicate 10 gm PO DAILY 03/23/23 03/23/23 History [Lokelma] Allergies Allergy/AdvReac Type Severity Reaction Status Date / Time vancomycin Allergy Anaphylaxis Verified 03/23/23 07:36 hydralazine AdvReac Rapid Verified 03/23/23 07:36 Heart Rate WHEN GIVEN THROUGH IV Physical Exam Vitals: Vital Signs Temp Pulse Resp BP Pulse Ox 03/23/23 13:27 18 207/122 03/23/23 11:42 179/105 03/23/23 08:55 97.5 F L 69 20 200/119 95 03/23/23 06:27 98.4 F 74 14 207/110 97 03/23/23 05:46 199/102 03/23/23 04:45 97.8 F 79 18 215/144 99 Intake and Output 03/22/23 03/23/23 03/23/23 22:59 06:59 14:59 Other: Weight 54.431 kg Results - Lab Results Most recent lab results Calcium 7.5 mg/dL (8.4-10.2) L 03/23/23 05:45 03/23/23 05:45 03/23/23 05:45 Assessment and Plan Plan: Assessment: 1. End-stage renal disease maintained on hemodialysis on Wednesday schedule via left upper extremity AV fistula. 2. Left upper extremity pain. Unclear etiology. Consider vascular eval. Possibly neuropathic. Orthopedic surgery consulted. 3. Chronic kidney disease mineral bone disease maintained on PhosLo, calcitriol and Sensipar. 4. Hypertension with chronic kidney disease. Exacerbated by pain. 5. Chronic diastolic CHF with moderate aortic insufficiency and moderate to severe tricuspid regurgitation. 6. Chronic hyperkalemia. Potassium currently normal. Patient doesn't regularly take potassium binders at home. 7. Anemia of chronic kidney disease. Rule out iron deficiency. Plan: Hemodialysis tomorrow. Home antihypertensives resumed. Add when necessary hydralazine. Check iron studies. Thank you for the consultation. I will continue to follow the patient with you during her hospital stay.
[2023-03-23] MEDS: predniSONE 20 MG TAB PO SCH ×2 (14:40→20:29)
[2023-03-23] MEDS ORDERED: carvediloL 12.5 MG TAB PO SCH (17:30)
[2023-03-23] MEDS: CALCIUM ACETATE 667 MG TAB PO SCH (18:22)
[2023-03-23] MEDS: carvediloL 12.5 MG TAB PO SCH (18:23)
[2023-03-23] MEDS: HYDROcodone/APAP 5-325MG 1 EACH TAB PO PRN (20:29)
[2023-03-23] MEDS: HEPARIN SODIUM,PORCINE 5,000 UNIT/ML 1 ML VIAL SQ SCH (20:29)
[2023-03-23 22:19] LABS: % Iron Saturation 51.63 (12.00-45.00)
[2023-03-24] MEDS: HYDROcodone/APAP 5-325MG 1 EACH TAB PO PRN ×2 (02:57→08:41)
[2023-03-24] MEDS: HYDROmorphone 0.5 MG/0.5 ML SYRINGE IVP PRN ×3 (03:50→19:08)
[2023-03-24] MEDS: SODIUM CHLORIDE 0.9% 1,000 ML IV SCH (06:20)
[2023-03-24 06:32] LABS: African American GFR (CKD) 6 (>60 ml/min/1.73 sqM); Anion Gap 14 mmol/L; Blood Urea Nitrogen 40 mg/dL (7-17); Calcium 8.4 mg/dL (8.4-10.2); Carbon Dioxide 23 mmol/L (22-30); Chloride 93 mmol/L (98-107); Glucose 119 mg/dL (74-99); Non-African American GFR(CKD) 5 (>60 ml/min/1.73 sqM); Potassium 5.9 mmol/L (3.5-5.1); Sodium 130 mmol/L (137-145)
[2023-03-24] MEDS: CALCIUM ACETATE 667 MG TAB PO SCH ×3 (06:50→16:48)
[2023-03-24] MEDS: carvediloL 12.5 MG TAB PO SCH ×2 (06:50→16:51)
[2023-03-24] MEDS ORDERED: CINACALCET 30 MG TAB PO SCH (09:00)
[2023-03-24] MEDS: NIFEdipine XL 90 MG TAB.ER.24 PO SCH ×2 (12:00→21:18)
[2023-03-24] MEDS: predniSONE 20 MG TAB PO SCH ×2 (12:01→21:18)
[2023-03-24] MEDS: HEPARIN SODIUM,PORCINE 5,000 UNIT/ML 1 ML VIAL SQ SCH ×2 (12:01→21:18)
[2023-03-24] MEDS: hydrALAZINE HCL 50 MG TAB PO SCH ×3 (12:03→21:18)
[2023-03-24] MEDS: SODIUM ZIRCONIUM CYCLOSILICATE 10 GM PACKET PO SCH (12:04)
--- NOTE | 2023-03-24 14:09 | P.PN ---
Subjective Patient is seen in follow-up for end-stage renal disease. She is maintained on hemodialysis on Wednesday schedule. Completed hemodialysis morning but cut the treatment short due to pain in her arm. No vomiting or diarrhea. Vital signs are stable. General: No acute distress. HEENT: Head exam is unremarkable. LUNGS: No audible rhonchi or wheezes. HEART: Rate and Rhythm are regular. ABDOMEN: Nontender. EXTREMITITES: No edema. Objective - Vital Signs Vital signs: Vital Signs Temp 97.2 F L 03/24/23 11:15 Pulse 79 03/24/23 11:15 Resp 20 03/24/23 11:15 BP 148/82 03/24/23 11:15 Pulse Ox 94 L 03/24/23 06:55 FiO2 Intake & Output 03/23/23 03/24/23 03/24/23 18:59 06:59 18:59 Intake Total 580 500 Output Total 0 1400 Balance 580 -900 Weight 54.431 kg Intake: Intake, IV Titration 80 Amount Sodium Chloride 0.9% 1, 80 000 ml @ 20 mls/hr IV . Q24H [facility] Rx#:[id number] Oral 500 Hemodialysis 500 Output: Urine 0 Hemodialysis 1400 Other: # Voids 1 - Labs CBC & Chem 7: 03/23/23 05:45 03/24/23 05:52 Labs: Abnormal Lab Results - Last 24 Hours (Table) 03/23/23 03/23/23 03/24/23 Range/Units 13:10 13:10 05:52 Sodium 130 L (137-145) mmol/L Potassium 5.9 H (3.5-5.1) mmol/L Chloride 93 L (98-107) mmol/L BUN 40 H (7-17) mg/dL Creatinine 9.44 H* (0.52-1.04) mg/dL Glucose 119 H (74-99) mg/dL Phosphorus 5.7 H (2.4-5.1) mg/dL % Saturation 51.63 H (12.00-45.00) Transferrin 176.0 L (204.0-354.0) mg/dL Ferritin 1532.0 H (10.0-291.0) ng/mL Assessment and Plan Plan: Assessment: 1. End-stage renal disease maintained on hemodialysis on [place] Wednesday [place] schedule via left upper extremity AV fistula. 2. Left upper extremity pain. Unclear etiology. Consider vascular eval. Possibly neuropathic. Orthopedic surgery consulted. 3. Chronic kidney disease mineral bone disease maintained on PhosLo, calcitriol and Sensipar. Phosphorus 5.7 dated 03/23/2023. 4. Hypertension with chronic kidney disease. Exacerbated by pain. Stable. 5. Chronic diastolic CHF with moderate aortic insufficiency and moderate to severe tricuspid regurgitation. 6. Chronic hyperkalemia. Potassium currently normal. Patient doesn't regularly take potassium binders at home. 7. Anemia of chronic kidney disease. Rule iron replete. Plan: Hemodialysis Wednesday. Add Aranesp. Low potassium diet. Check potassium level now.
[2023-03-24] MEDS ORDERED: DARBEPOETIN ALFA 40 MCG/0.4 ML SYRINGE SQ SCH (15:00)
--- NOTE | 2023-03-24 15:12 | XR ---
EXAMINATION TYPE: XR cervical spine limited DATE OF EXAM: 03/24/2023 COMPARISON: None HISTORY: Upper neck and back pain TECHNIQUE: 3 view cervical spine FINDINGS: The vertebral space is normal. Posterior spinal lamellar line is intact. Vertebral body hei ghts are preserved. Disc heights are preserved. Alignment is normal. Odontoid is limited despite the mouth and submental vertex views. IMPRESSION: 1. No acute osseous abnormality cervical spine
--- NOTE | 2023-03-24 15:14 | XR ---
EXAMINATION TYPE: XR thoracic spine 2V DATE OF EXAM: 03/24/2023 COMPARISON: None HISTORY: Back pain TECHNIQUE: 2 views thoracic spine FINDINGS: There are 12 thoracic type vertebral bodies. The pedicles are intact. Disc heights are pres erved. Vertebral body heights are preserved. Subtle scoliosis with convexity to the left centered at approximately T4 is present. IMPRESSION: 1. No acute osseous abnormality thoracic spine.
[2023-03-24] MEDS: HYDROcodone/APAP 7.5-325MG 1 EACH TAB PO PRN ×2 (16:45→23:09)
[2023-03-25] MEDS: HYDROcodone/APAP 7.5-325MG 1 EACH TAB PO PRN (05:02)
--- NOTE | 2023-03-25 06:43 | P.PN ---
Subjective Progress Note Date: 03/24/23 32-year-old female with the history of end-stage renal disease from polycystic kidney disease came in with severe neck pain unable to lift her left hand and left upper extremity pain radiating to back of her hand which was initially believed to be the pain coming from the fistula in the left hand. Patient had a CT angios the fistula which didn't show any significant abnormality. Patient is having severe pain which is requiring IV Dilaudid for pain. Patient doesn't have any fevers chills. Patient dialysis he usually on Mondays, Wednesdays and Fridays. Patient did complete her hemodialysis yesterday. Patient blood pressure is bit elevated. 03/24/2023 Patient is seen in follow-up today continues to report neck and upper back pain that is not getting better. Patient maintained on dialysis with nephrology following is receiving dialysis currently. Orthopedics consulted and pending. Will increase Azle to 7.5 and continue other current medications. Patient denies nausea or vomiting and tolerating diet. No Report of chest pains or shortness of breath. Encouraged to increase activity as tolerated. Review of systems: Constitutional: No reports of fatigue, fever, or chills Cardiovascular: No reports of chest pain or palpitations Respiratory: No reports of shortness of breath or cough GI: No reports of nausea, vomiting, or diarrhea : No reports of dysuria or retention Neurovascular: reports of continued neck and upper back pain with upper left arm pain All medications have been reviewed PHYSICAL EXAMINATION: GENERAL: The patient is alert and oriented x3, not in any acute distress. Well developed, well nourished. HEENT: Pupils are round and equally reacting to light. EOMI. No scleral icterus. No conjunctival pallor. Normocephalic, atraumatic. No pharyngeal erythema. No thyromegaly. CARDIOVASCULAR: S1 and S2 present. No murmurs, rubs, or gallops. PULMONARY: Chest is clear to auscultation, no wheezing or crackles. ABDOMEN: Soft, nontender, nondistended, normoactive bowel sounds. No palpable organomegaly. MUSCULOSKELETAL: Patient has significant pain in the neck barely able to lift the left shoulder EXTREMITIES: No cyanosis, clubbing, or pedal edema. Left arm fistula functioning properly during dialysis with no difficulties NEUROLOGICAL: Gross neurological examination did not reveal any focal deficits. SKIN: No rashes. Assessment: -Possible cervical degenerative disc disease with maybe a rotator cuff involvement: For now will continue with the pain medications and awaiting orthopedic evaluation -uncontrolled elevated blood pressure: Patient will be resumed on her home medications, patient doesn't have hypertensive urgency will not require any IV antihypertensive medications. -End-stage renal disease secondary to polycystic kidney disease -Asthma without any acute exacerbation -Congestive heart failure chronic systolic dysfunction with EF of around 35-40% -Chronic low back pain -Metabolic bone disease from end-stage renal disease -DVT prophylaxis: Subcutaneous heparin -GI prophylaxis -Full code Plan: Patient will be continued on dialysis as scheduled with nephrology following. Per nursing staff patient was unable to tolerate rest of dialysis and had to complete the session early due to continued pain Initial consult was placed Dr. Esparza for evaluation although not application security developer and changing the consult to Dr. Jones orthopedics is patient continues to have neck and upper back pain is radiating to her left shoulder with not much relief. Will increase the Azle and continue IV pain medications for severe pain Encouraged increased activity as tolerated and getting up out of the bed more frequently Follow-up with nephrology as patient did not complete dialysis and may need another session tomorrow Follow-up labs ordered as potassium was elevated The impression and plan of care has been dictated by Mona Bhatt, Nurse Practitioner as directed. Dr. Miguel MD I have performed a history and examination and MDM of this patient, discussed the same with the dictator, and agree with the dictator's assessment and plan as written ,documented as a scribe. Based on total visit time, I have performed more than 50% of the visit. Objective - Vital Signs Vital signs: Vital Signs Temp 98.2 F 03/24/23 06:55 Pulse 81 03/24/23 06:55 Resp 18 03/24/23 06:55 BP 148/91 03/24/23 06:55 Pulse Ox 94 L 03/24/23 06:55 FiO2 Intake & Output 03/23/23 03/24/23 03/24/23 18:59 06:59 18:59 Intake Total 580 Output Total 0 Balance 580 Weight 54.431 kg Intake: Intake, IV Titration 80 Amount Sodium Chloride 0.9% 1, 80 000 ml @ 20 mls/hr IV . Q24H [facility] Rx#:[id number] Oral 500 Output: Urine 0 Other: # Voids 1 - Labs CBC & Chem 7: 03/23/23 05:45 03/24/23 14:25 Labs: Abnormal Lab Results - Last 24 Hours (Table) 03/23/23 03/23/23 03/24/23 Range/Units 13:10 13:10 05:52 Sodium 130 L (137-145) mmol/L Potassium 5.9 H (3.5-5.1) mmol/L Chloride 93 L (98-107) mmol/L BUN 40 H (7-17) mg/dL Creatinine 9.44 H* (0.52-1.04) mg/dL Glucose 119 H (74-99) mg/dL Phosphorus 5.7 H (2.4-5.1) mg/dL % Saturation 51.63 H (12.00-45.00) Transferrin 176.0 L (204.0-354.0) mg/dL Ferritin 1532.0 H (10.0-291.0) ng/mL
[2023-03-25] MEDS: HYDROmorphone 0.5 MG/0.5 ML SYRINGE IVP PRN ×2 (06:58→11:54)
[2023-03-25] MEDS: SODIUM CHLORIDE 0.9% 1,000 ML IV SCH (06:59)
[2023-03-25 07:37] LABS: African American GFR (CKD) 7 (>60 ml/min/1.73 sqM); Anion Gap 9 mmol/L; Blood Urea Nitrogen 42 mg/dL (7-17); Calcium 7.6 mg/dL (8.4-10.2); Carbon Dioxide 25 mmol/L (22-30); Chloride 94 mmol/L (98-107); Glucose 104 mg/dL (74-99); Non-African American GFR(CKD) 6 (>60 ml/min/1.73 sqM); Sodium 128 mmol/L (137-145)
[2023-03-25 07:38] VITALS: RESP 16
[2023-03-25 07:41] LABS: Potassium 6.1 mmol/L (3.5-5.1)
[2023-03-25] MEDS: HEPARIN SODIUM,PORCINE 5,000 UNIT/ML 1 ML VIAL SQ SCH (07:57)
[2023-03-25] MEDS: CALCIUM ACETATE 667 MG TAB PO SCH ×2 (07:58→11:55)
[2023-03-25] MEDS: carvediloL 12.5 MG TAB PO SCH (07:58)
[2023-03-25] MEDS: hydrALAZINE HCL 50 MG TAB PO SCH ×2 (07:59→16:38)
[2023-03-25] MEDS: NIFEdipine XL 90 MG TAB.ER.24 PO SCH (07:59)
[2023-03-25] MEDS: SODIUM ZIRCONIUM CYCLOSILICATE 10 GM PACKET PO SCH (08:00)
[2023-03-25] MEDS: predniSONE 20 MG TAB PO SCH (08:00)
--- NOTE | 2023-03-25 09:25 | P.CNOR ---
History of Present Illness - [facility] Consult date: 03/25/23 Requesting physician: Roman Rivera Consult reason: neck pain, other (Left upper extremity pain) History of present illness: History of Presenting Illness Patient is a pleasant 32 yo female that presented to the ER for severe left upper extremity pain. Patient does have a past medical history of end-stage renal disease secondary to polycystic kidney disease. She does present with an AV fistula in the left upper extremity. Hemodialysis schedule is Wed, Wed, and Fridays. While in the ER CTA of the upper extremity was performed and function of the AV fistula was validated, no abnormalities. Patient received dialysis yesterday 03/24/23 and session was stopped early due to arm pain. Patient seen and examined this morning. Patient is resting comfortably in bed. Patient reports a sharp pain in the left side of her neck that radiates into the posterior left upper extremity. Patient currently denies any numbness or tingling into the left upper extremity. Patient states that her pain is exacerbated with extension of her left elbow. She does report that her pain has improved since admission. Patient states that her pain is managed on current regimen. No acute events overnight. X-rays of the cervical and thoracic spine taken on 03/24/2023 demonstrate no acute osseous abnormalities. Review of Systems Pertinent positives and negatives as discussed in HPI, a complete review of s ystems was performed and all other systems are negative. Physical Examination Inspection: Negative for any open fractures, ecchymosis, significant erythema /ulcers. AV fistula is present in the left upper extremity, thrill/bruit is present. Sensation: Sensation is equal, symmetric, bilaterally intact throughout the upper and lower extremities Palpation: Nontender to palpation throughout bilateral upper and lower extremities and throughout spine exam Range of motion: Patient does have full range of motion bilateral upper and lower extremities on exam. Motor: 5/5 in all major motor groups in the bilateral upper and lower extremities Special tests: Negative Homans bilaterally. Negative Myranda bilaterally. Negative clonus bilaterally. Neurovascular: Radial pulse intact, 2+ bilaterally. Cap refill under 3 seconds in digits upper extremities. Assessment and Plan Left upper extremity pain, unclear etiology End-stage renal disease secondary to polycystic kidney disease At this time we do not recommend any emergent/urgent orthopedic surgical intervention. Recommend consult to vascular for evaluation of fistula and left upper extremity pain Continue with pain management, patient may benefit from muscle relaxer. Patient may follow-up with Dr. Jones office for further evaluation as needed if symptoms persist. Appreciate consult. Orthopedics is signing off at this time. Please do not hesitate to contact us for any further questions. I reviewed and discussed this case with my attending Dr. Jones, whom has reviewed this chart and films and is in agreement with assessment and plan of care as outlined above. I have personally seen and examined the patient, performed the documentation and the assessment and plan as written. Number of minutes spent on the visit: 20m. 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 History of Any Multi-Drug Resistant Organisms: None Reported Past Surgical History: Heart Catheterization, Hernia Repair Additional Past Surgical History / Comment(s): 06/14/18 cardiac cath at [facility] to check coronary pressures, 11/15/09 Failed kidney transplant R pelvis, dialysis catheter in and out, current L upper arm AVG, supra pubic hernia repair, transvaginal mesh, wisdom teeth extraction with anesthesia, 2016 failed kidney transplant Past Anesthesia/Blood Transfusion Reactions: No Reported Reaction Additional Past Anesthesia/Blood Transfusion Reaction / Comm: Pt has received blood in past without reaction. Past Psychological History: Anxiety, Depression Additional Psychological History / Comment(s): Pt resides with family. She is independent. She drives. She is disabled. She states she has anxiety and depression but denies suicidal thoughts/ idealations or plans. Smoking Status: Former smoker Past Alcohol Use History: None Reported Additional Past Alcohol Use History / Comment(s): Pt states she started smoking socially as a teen and quit smoking in 2016. Past Drug Use History: None Reported, Marijuana Additional Drug Use History / Comment(s): Couple times a week. - Past Family History Father Family Medical History: No Reported History Additional Family Medical History / Comment(s): Father is healthy and is 62 yrs old. Mother Family Medical History: No Reported History Additional Family Medical History / Comment(s): Mother is healthy and is 60 yrs old. Medications and Allergies Home Medications Medication Instructions Recorded Confirmed Type Albuterol Sulfate [Proair Hfa] 2 puff INHALATION RT-Q6H PRN 01/22/16 03/23/23 History hydrALAZINE HCL [Apresoline] 100 mg PO TID 11/16/18 03/23/23 History Cinacalcet HCl [Sensipar] 120 mg PO MOWEFR 02/26/19 03/23/23 History Calcium Acetate [PhosLo] 2,668 mg PO TID-W/MEALS 05/01/20 03/23/23 History Lidocaine-Prilocaine Cream [Emla 1 applic TOPICAL DAILY PRN 05/01/20 03/23/23 History Cream 2.5%/2.5%] calcitrioL [Calcitriol] 3 mcg PO MOWEFR 10/29/21 03/23/23 History hydrOXYzine HCL [Atarax] 25 mg PO TID PRN 10/29/21 03/23/23 History Acetaminophen Tab [Tylenol] 1,000 mg PO Q6HR PRN 05/26/22 03/23/23 History Calcium Acetate [PhosLo] 667 - 1,334 mg PO BID PRN 05/26/22 03/23/23 History Pantoprazole [Protonix] 40 mg PO DAILY PRN 01/18/23 03/23/23 History HYDROcodone/APAP 5-325MG [[place] 1 tab PO Q6HR PRN #4 tab 01/20/23 03/23/23 Rx 5-325] carvediloL [Coreg*] 37.5 mg PO BID-W/MEALS 30 Days 01/20/23 03/23/23 Rx #180 tab Ondansetron Odt [Zofran ODT] 4 mg PO Q12HR PRN 02/27/23 03/23/23 History NIFEdipine XL [Procardia XL] 90 mg PO BID #60 tab 03/02/23 03/23/23 Rx Docusate [Colace] 100 mg PO BID PRN 03/23/23 03/23/23 History Sodium Zirconium Cyclosilicate 10 gm PO DAILY 03/23/23 03/23/23 History [Lokelma] Allergies Allergy/AdvReac Type Severity Reaction Status Date / Time vancomycin Allergy Anaphylaxis Verified 03/23/23 07:36 hydralazine AdvReac Rapid Verified 03/23/23 07:36 Heart Rate WHEN GIVEN THROUGH IV Results - Labs Labs: Abnormal Lab Results - Last 24 Hours (Table) 03/25/23 Range/Units 06:50 Sodium 128 L (137-145) mmol/L Potassium 6.1 H* (3.5-5.1) mmol/L Chloride 94 L (98-107) mmol/L BUN 42 H (7-17) mg/dL Creatinine 7.88 H* (0.52-1.04) mg/dL Glucose 104 H (74-99) mg/dL Calcium 7.6 L (8.4-10.2) mg/dL H & H 03/23/23 Range/Units 05:45 Hgb 9.7 L (11.4-16.0) gm/dL Hct 30.6 L (34.0-46.0) % Coagulation 03/23/23 Range/Units 05:50 INR 1.1 (<1.2) Result Diagrams: 03/23/23 05:45 03/25/23 06:50
[2023-03-25] MEDS ORDERED: INSULIN REGULAR 100 UNIT/ML VIAL (IV) IV ONE (09:49)
[2023-03-25] MEDS ORDERED: DEXTROSE 50% SYRINGE 50 ML IVP STA (09:54)
--- NOTE | 2023-03-25 10:41 | P.PN ---
Subjective Patient is seen in follow-up for end-stage renal disease. She is maintained on hemodialysis on Wednesday schedule. Completed short treatment of hemodialysis yesterday. Potassium level 6.1 this morning. Vital signs are stable. General: No acute distress. HEENT: Head exam is unremarkable. LUNGS: No audible rhonchi or wheezes. HEART: Rate and Rhythm are regular. ABDOMEN: Nontender. EXTREMITITES: No edema. Objective - Vital Signs Vital signs: Vital Signs Temp 98.7 F 03/25/23 07:00 Pulse 79 03/25/23 07:00 Resp 16 03/25/23 07:00 BP 133/80 03/25/23 07:00 Pulse Ox 93 L 03/25/23 07:00 FiO2 Intake & Output 03/24/23 03/25/23 03/25/23 18:59 06:59 18:59 Intake Total 500 450 Output Total 1400 Balance -900 450 Intake: Oral 450 Hemodialysis 500 Output: Hemodialysis 1400 Other: # Voids 2 - Labs CBC & Chem 7: 03/23/23 05:45 03/25/23 06:50 Labs: Abnormal Lab Results - Last 24 Hours (Table) 03/25/23 Range/Units 06:50 Sodium 128 L (137-145) mmol/L Potassium 6.1 H* (3.5-5.1) mmol/L Chloride 94 L (98-107) mmol/L BUN 42 H (7-17) mg/dL Creatinine 7.88 H* (0.52-1.04) mg/dL Glucose 104 H (74-99) mg/dL Calcium 7.6 L (8.4-10.2) mg/dL Assessment and Plan Plan: Assessment: 1. End-stage renal disease maintained on hemodialysis on Wednesday schedule via left upper extremity AV fistula. 2. Left upper extremity pain. Unclear etiology. Consider vascular eval. Possibly neuropathic. Orthopedic surgery also following. No interventions planned. 3. Chronic kidney disease mineral bone disease maintained on PhosLo, calcitriol and Sensipar. Phosphorus 5.7 dated 03/23/2023. 4. Hypertension with chronic kidney disease. Exacerbated by pain. Stable. 5. Chronic diastolic CHF with moderate aortic insufficiency and moderate to severe tricuspid regurgitation. 6. Chronic hyperkalemia. Potassium currently normal. Patient doesn't regularly take potassium binders at home. 7. Anemia of chronic kidney disease. Iron replete. On Aranesp. Plan: Hemodialysis today. Low potassium diet. Status post [facility] this AM. Repeat potassium level normal. Consult vascular surgery as well. Patient refusing to take IV insulin/D50 as she states that it makes her pass out.
--- NOTE | 2023-03-25 12:32 | P.GSCN ---
History of Present Illness Consult date: 03/25/23 Reason for Consult: Evaluate AV fistula Requesting physician: Robin Thompson History of present illness: This is a 32-year-old -Filip[place] female who presented to the emergency department 2 days ago with complaints of left upper extremity pain and neck pain. She has a past medical history including end-stage renal disease on hemodialysis from polycystic ovarian disease, failed renal transplant, congestive heart failure, chronic anemia, hypertension and asthma. Patient was admitted for hyperkalemia. Patient is a dialysis patient Wednesday. During this hospitalization she had a workup for her arm and neck pain. Patient states she woke up in the morning with pain in the back of her left arm radiates up to her neck especially she turns her neck to the right. Orthopedics evaluated patient, no acute findings and no recommendations for any orthopedic intervention. She was scheduled for dialysis yesterday and was only able to tolerate about half due to pain in her arm due to extending it radiating and the back of her arm and up through her neck. She did have a CTA of the left upper extremity reporting left upper extremity AV fistula with dilated veins and a 3 mm varix. Vascular surgery was consulted for evaluation of left upper extremity fistula. Left upper extremity fistula was placed about 8 years ago. Patient follows with [facility] vascular group. She denies any pain at the fistula site. States that most the pain is positional of extending her arm and is in the back of the arm. She states when she turns her neck to the right heel will radiate from her neck down to the back of her arm. She's been afebrile. Today's labs sodium 128 potassium 6.1 albumin 42 creatinine 7.80 Review of Systems A 14 point review systems was completed all pertinent positives and negatives as stated in the HPI. 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 History of Any Multi-Drug Resistant Organisms: None Reported Past Surgical History: Heart Catheterization, Hernia Repair Additional Past Surgical History / Comment(s): 06/14/18 cardiac cath at [facility] to check coronary pressures, 11/15/09 Failed kidney transplant R pelvis, dialysis catheter in and out, current L upper arm AVG, supra pubic hernia repair, resendiz svaginal mesh, wisdom teeth extraction with anesthesia, 2016 failed kidney transplant Past Anesthesia/Blood Transfusion Reactions: No Reported Reaction Additional Past Anesthesia/Blood Transfusion Reaction / Comm: Pt has received blood in past without reaction. Past Psychological History: Anxiety, Depression Additional Psychological History / Comment(s): Pt resides with family. She is independent. She drives. She is disabled. She states she has anxiety and depression but denies suicidal thoughts/ idealations or plans. Smoking Status: Former smoker Past Alcohol Use History: None Reported Additional Past Alcohol Use History / Comment(s): Pt states she started smoking socially as a teen and quit smoking in 2015. Past Drug Use History: None Reported, Marijuana Additional Drug Use History / Comment(s): Couple times a week. - Past Family History Father Family Medical History: No Reported History Additional Family Medical History / Comment(s): Father is healthy and is 62 yrs old. Mother Family Medical History: No Reported History Additional Family Medical History / Comment(s): Mother is healthy and is 60 yrs old. Medications and Allergies Home Medications Medication Instructions Recorded Confirmed Type Albuterol Sulfate [Proair Hfa] 2 puff INHALATION RT-Q6H PRN 01/22/16 03/23/23 History hydrALAZINE HCL [Apresoline] 100 mg PO TID 11/16/18 03/23/23 History Cinacalcet HCl [Sensipar] 120 mg PO MOWEFR 02/26/19 03/23/23 History Calcium Acetate [PhosLo] 2,668 mg PO TID-W/MEALS 05/01/20 03/23/23 History Lidocaine-Prilocaine Cream [Emla 1 applic TOPICAL DAILY PRN 05/01/20 03/23/23 History Cream 2.5%/2.5%] calcitrioL [Calcitriol] 3 mcg PO MOWEFR 10/29/21 03/23/23 History hydrOXYzine HCL [Atarax] 25 mg PO TID PRN 10/29/21 03/23/23 History Acetaminophen Tab [Tylenol] 1,000 mg PO Q6HR PRN 05/26/22 03/23/23 History Calcium Acetate [PhosLo] 667 - 1,334 mg PO BID PRN 05/26/22 03/23/23 History Pantoprazole [Protonix] 40 mg PO DAILY PRN 01/18/23 03/23/23 History HYDROcodone/APAP 5-325MG [[place] 1 tab PO Q6HR PRN #4 tab 01/20/23 03/23/23 Rx 5-325] carvediloL [Coreg*] 37.5 mg PO BID-W/MEALS 30 Days 01/20/23 03/23/23 Rx #180 tab Ondansetron Odt [Zofran ODT] 4 mg PO Q12HR PRN 02/27/23 03/23/23 History NIFEdipine XL [Procardia XL] 90 mg PO BID #60 tab 03/02/23 03/23/23 Rx Docusate [Colace] 100 mg PO BID PRN 03/23/23 03/23/23 History Sodium Zirconium Cyclosilicate 10 gm PO DAILY 03/23/23 03/23/23 History [Lokelma] Allergies Allergy/AdvReac Type Severity Reaction Status Date / Time vancomycin Allergy Anaphylaxis Verified 03/23/23 07:36 hydralazine AdvReac Rapid Verified 03/23/23 07:36 Heart Rate WHEN GIVEN THROUGH IV Surgical - Exam Vital Signs Temp Pulse Resp BP Pulse Ox 97.8 F 79 18 215/144 99 03/23/23 04:45 03/23/23 04:45 03/23/23 04:45 03/23/23 04:45 03/23/23 04:45 General appearance: The patient is alert, oriented, appears in no acute distress. HET: Head is normocephalic and atraumatic. Pupils are equal and reactive. Neck: Supple. Heart: Regular. Lungs: Equal expansion, normal respiratory effort. Abdomen: Soft, nontender, nondistended. Extremities: Normal skin color and turgor. Left upper extremity, full range of motion, palpable +2 radial pulse, palpable thrill and audible bruit over fistula. Neurological: No focal deficits. Strength and sensation are grossly similar ran ge. Results - Labs 03/23/23 05:45 03/25/23 10:35 Abnormal Lab Results - Last 24 Hours (Table) 03/25/23 03/25/23 Range/Units 06:50 10:35 Sodium 128 L (137-145) mmol/L Potassium 6.1 H* 5.5 H (3.5-5.1) mmol/L Chloride 94 L (98-107) mmol/L BUN 42 H (7-17) mg/dL Creatinine 7.88 H* (0.52-1.04) mg/dL Glucose 104 H (74-99) mg/dL Calcium 7.6 L (8.4-10.2) mg/dL Diabetes panel 03/24/23 03/25/23 03/25/23 Range/Units 14:25 06:50 10:35 Sodium 128 L (137-145) mmol/L Potassium 3.8 6.1 H* 5.5 H (3.5-5.1) mmol/L Chloride 94 L (98-107) mmol/L Carbon Dioxide 25 (22-30) mmol/L BUN 42 H (7-17) mg/dL Creatinine 7.88 H* (0.52-1.04) mg/dL Glucose 104 H (74-99) mg/dL Calcium 7.6 L (8.4-10.2) mg/dL Calcium panel 03/25/23 Range/Units 06:50 Calcium 7.6 L (8.4-10.2) mg/dL Pituitary panel 03/24/23 03/25/23 03/25/23 Range/Units 14:25 06:50 10:35 Sodium 128 L (137-145) mmol/L Potassium 3.8 6.1 H* 5.5 H (3.5-5.1) mmol/L Chloride 94 L (98-107) mmol/L Carbon Dioxide 25 (22-30) mmol/L BUN 42 H (7-17) mg/dL Creatinine 7.88 H* (0.52-1.04) mg/dL Glucose 104 H (74-99) mg/dL Calcium 7.6 L (8.4-10.2) mg/dL Adrenal panel 03/24/23 03/25/23 03/25/23 Range/Units 14:25 06:50 10:35 Sodium 128 L (137-145) mmol/L Potassium 3.8 6.1 H* 5.5 H (3.5-5.1) mmol/L Chloride 94 L (98-107) mmol/L Carbon Dioxide 25 (22-30) mmol/L BUN 42 H (7-17) mg/dL Creatinine 7.88 H* (0.52-1.04) mg/dL Glucose 104 H (74-99) mg/dL Calcium 7.6 L (8.4-10.2) mg/dL - Imaging Comments: Chest CTA/left upper extremity CTA: Left upper extremity AV fistula with dilated veins and 30 mm varix. Dilated central pulmonary artery, question pulmonary arterial hypertension or increased flow. Probable left ventricular hypertrophy, atrophic [place] kidneys. Images independently reviewed by Dr. Kasper. Assessment and Plan Assessment: 1. Left upper extremity pain 2. Left upper extremity AV fistula, aneurysmal 3. Left neck pain 4. End-stage renal disease on hemodialysis 5. History of Congestive heart failure Plan: 1. Patient may receive hemodialysis as scheduled 2. No indication for any acute/urgent vascular surgical intervention 3. Recommend patient follow-up with vascular surgeon from [facility] vascular group Thank you for this consultation, patient is cleared from vascular surgery for discharge. The impression and plan of care has been dictated as directed. Dr. Kasper I performed a history and examination of this patient, discussed the same with the dictator. I agree with the dictator's note ,documented as a scribe. Any additional findings or plans will be noted.
[2023-03-25 17:21] VITALS: BP 147/96; PULSE 86; TEMP 98.2
--- NOTE | 2023-03-27 20:14 | P.DS ---
Providers Date of admission: 03/25/23 09:12 Expected date of discharge: 03/25/23 Attending physician: Agnieszka Travis Consults: 03/23/23 12:52 Consult Physician Routine Consulting Provider: Luis Eduardo Jones Consult Reason/Comments: Neck pain, shoulder pain Do you want consulting provider notified?: Yes 03/25/23 10:16 Consult Physician Routine Consulting Provider: Robin Thompson Consult Reason/Comments: evaluate fistula Do you want consulting provider notified?: Yes 03/25/23 11:14 Consult Physician Routine Consulting Provider: Robin Thompson Consult Reason/Comments: evaluate fistula Do you want consulting provider notified?: Already Contacted 03/25/23 11:36 Consult Physician Urgent Consulting Provider: Roro Kasper Consult Reason/Comments: left arm pain, esrd has fistula Do you want consulting provider notified?: Yes Primary care physician: Karo Alicea Hospital Course: Final diagnosis -Possible cervical degenerative disc disease with maybe a rotator cuff involvement, no plans for surgical intervention and conservative management -uncontrolled elevated blood pressure -End-stage renal disease secondary to polycystic kidney disease -Asthma without any acute exacerbation -Congestive heart failure chronic systolic dysfunction with EF of around 35-40% -Chronic low back pain -Metabolic bone disease from end-stage renal disease -DVT prophylaxis: Subcutaneous heparin -GI prophylaxis -Full code Discharge disposition Patient is being discharged in a stable condition with guarded prognosis to home. Patient will follow-up with Dr. Thaddeus Travis in the outpatient setting upon discharge. Patient is to continue with hemodialysis as scheduled. Patient to follow-up with orthopedics outpatient and will continue on low-dose muscle relaxer along with Lidoderm patch. Total time taken is greater than 35 minutes. Hospital course This is a 32-year-old female who was recently admitted with neck and back pain along with left shoulder pain being closely monitored. Patient maintained on hemodialysis for end-stage renal disease with nephrology following. Patient was also evaluated by vascular surgery along with orthopedics for this neck and back pain recommending no plans for surgical intervention and conservative management. Patient will continue on low-dose Flexeril along with lidocaine patches and close outpatient follow-up. Patient was evaluated by vascular with no concerns of the fistula and will follow up with her vascular surgeon at the [facility]. Patient has been cleared by consultations. Please refer to other consultation notes for further HPI. Currently no reports of chest pain, shortness of breath, or palpitations. Patient is afebrile. No reports of nausea or vomiting and patient is tolerating diet. Patient will be discharged home today. Physical exam: Gen: This is a 32-year-old female who is awake, alert and oriented 3, well- developed, well-nourished HEENT: Head is atraumatic, normocephalic. Pupils equal, round. Sclerae is anicteric. NECK: Supple. No JVD. No lymphadenopathy. No thyromegaly. LUNGS: Clear to auscultation. No wheezes or rhonchi. No intercostal retractions. HEART: Regular rate and rhythm. No murmur. ABDOMEN: Soft. Bowel sounds are present. No masses. No tenderness. EXTREMITIES: No pedal edema. No calf tenderness. NEUROLOGICAL: Patient is awake, alert and oriented x3. Cranial nerves 2 through 12 are grossly intact. Please refer to medication reconciliation sheet for a list of medications. The impression and plan of care has been dictated by Mona Bhatt, Nurse Practitioner as directed. Dr. Miguel MD I have performed a history and examination and MDM of this patient, discussed the same with the dictator, and agree with the dictator's assessment and plan as written ,documented as a scribe. Based on total visit time, I have performed more than 50% of the visit. Patient Condition at Discharge: Fair Plan - Discharge Summary Discharge Rx Participant: No New Discharge Prescriptions: New Darbepoetin Aamir [Aranesp] 40 mcg SQ Q7D each predniSONE [Deltasone] 20 mg PO BID #8 tab Cyclobenzaprine [Flexeril] 5 mg PO TID PRN #15 tablet PRN Reason: Spasms HYDROcodone/APAP 7.5-325MG [[place] 7.5-325] 1 each PO Q6HR PRN #20 tab PRN Reason: Pain Lidocaine 5% Patch [Lidoderm 5% Patch] 1 each TP DAILY #30 patch Continue Albuterol Sulfate [Proair Hfa] 2 puff INHALATION RT-Q6H PRN PRN Reason: Shortness Of Breath hydrALAZINE HCL [Apresoline] 100 mg PO TID Cinacalcet HCl [Sensipar] 120 mg PO MOWEFR Lidocaine-Prilocaine Cream [Emla Cream 2.5%/2.5%] 1 applic TOPICAL DAILY PRN PRN Reason: PORT ACCESS Calcium Acetate [PhosLo] 2,668 mg PO TID-W/MEALS hydrOXYzine HCL [Atarax] 25 mg PO TID PRN PRN Reason: Anxiety Acetaminophen Tab [Tylenol] 1,000 mg PO Q6HR PRN PRN Reason: Pain Or Fever > 100.5 Pantoprazole [Protonix] 40 mg PO DAILY PRN PRN Reason: Gi Upset Ondansetron Odt [Zofran ODT] 4 mg PO Q12HR PRN PRN Reason: Nausea Docusate [Colace] 100 mg PO BID PRN PRN Reason: Constipation calcitrioL [Calcitriol] 3 mcg PO Calcium Acetate [PhosLo] 667 - 1,334 mg PO BID PRN PRN Reason: WITH SNACKS carvediloL [Coreg*] 37.5 mg PO BID-W/MEALS 30 Days #180 tab NIFEdipine XL [Procardia XL] 90 mg PO BID #60 tab Sodium Zirconium Cyclosilicate [Lokelma] 10 gm PO DAILY Discontinued HYDROcodone/APAP 5-325MG [[place] 5-325] 1 tab PO Q6HR PRN #4 tab PRN Reason: Pain Discharge Medication List Albuterol Sulfate [Proair Hfa] 2 puff INHALATION RT-Q6H PRN 01/22/16 [History] hydrALAZINE HCL [Apresoline] 100 mg PO TID 11/16/18 [History] Cinacalcet HCl [Sensipar] 120 mg PO MOWEFR 02/26/19 [History] Calcium Acetate [PhosLo] 2,668 mg PO TID-W/MEALS 05/01/20 [History] Lidocaine-Prilocaine Cream [Emla Cream 2.5%/2.5%] 1 applic TOPICAL DAILY PRN 05/01/20 [History] calcitrioL [Calcitriol] 3 mcg PO MOWEFR 10/29/21 [History] hydrOXYzine HCL [Atarax] 25 mg PO TID PRN 10/29/21 [History] Acetaminophen Tab [Tylenol] 1,000 mg PO Q6HR PRN 05/26/22 [History] Calcium Acetate [PhosLo] 667 - 1,334 mg PO BID PRN 05/26/22 [History] Pantoprazole [Protonix] 40 mg PO DAILY PRN 01/18/23 [History] carvediloL [Coreg*] 37.5 mg PO BID-W/MEALS 30 Days #180 tab 01/20/23 [Rx] Ondansetron Odt [Zofran ODT] 4 mg PO Q12HR PRN 02/27/23 [History] NIFEdipine XL [Procardia XL] 90 mg PO BID #60 tab 03/02/23 [Rx] Docusate [Colace] 100 mg PO BID PRN 03/23/23 [History] Sodium Zirconium Cyclosilicate [Lokelma] 10 gm PO DAILY 03/23/23 [History] Cyclobenzaprine [Flexeril] 5 mg PO TID PRN #15 tablet 03/25/23 [Rx] Darbepoetin Aamir [Aranesp] 40 mcg SQ Q7D each 03/25/23 [Rx] HYDROcodone/APAP 7.5-325MG [[place] 7.5-325] 1 each PO Q6HR PRN #20 tab 03/25/23 [Rx] Lidocaine 5% Patch [Lidoderm 5% Patch] 1 each TP DAILY #30 patch 03/25/23 [Rx] predniSONE [Deltasone] 20 mg PO BID #8 tab 03/25/23 [Rx] Follow up Appointment(s)/Referral(s): Karo Alicea MD [Primary Care Provider] - 1-2 days Luis Eduardo Jones DO [Doctor of Osteopathic Medicine] - 1 Week Robin Thompson DO [STAFF PHYSICIAN] - 1 Week Activity/Diet/Wound Care/Special Instructions: Activity Limited until follow-up Follow-up primary care provider on discharge Follow-up with nephrology outpatient Follow-up with orthopedics outpatient as needed Continue with pain medications and Lidoderm patches as needed Follow-up with [facility] vascular services outpatient Continue low potassium diet Continue your scheduled dialysis days Discharge Disposition: HOME SELF-CARE
== END 2023-03-25 17:30 | disposition home or self-care (01) | DRG 551 ==
LOC: EC 04:42 → 6NMEDSUR 06:24 → 1SOBS 14:45 → OBSVTOIN 03-25 09:12
PROVIDERS: ADMIT Hospitalist; ATTEND Hospitalist
PROC: 5A1D70Z Performance of Urinary Filtration, Intermittent, Less than 6 Hours Per Day (ICD-10-PCS; principal; 2023-03-25)
DX: M50.30 Other cervical disc degeneration, unspecified cervical region (principal); N18.6 End stage renal disease; I13.2 Hypertensive heart and chronic kidney disease with heart failure and with stage 5 chronic kidney disease, or end stage renal disease; I50.42 Chronic combined systolic (congestive) and diastolic (congestive) heart failure; Q61.3 Polycystic kidney, unspecified; T86.12 Kidney transplant failure; M75.100 Unspecified rotator cuff tear or rupture of unspecified shoulder, not specified as traumatic; Z99.2 Dependence on renal dialysis; J45.909 Unspecified asthma, uncomplicated; D63.1 Anemia in chronic kidney disease; E87.5 Hyperkalemia; F32.A Depression, unspecified; F41.9 Anxiety disorder, unspecified; G89.29 Other chronic pain; I08.3 Combined rheumatic disorders of mitral, aortic and tricuspid valves; I25.10 Atherosclerotic heart disease of native coronary artery without angina pectoris; E83.9 Disorder of mineral metabolism, unspecified; Z79.899 Other long term (current) drug therapy; Z87.891 Personal history of nicotine dependence; Z28.310 Unvaccinated for COVID-19; Z28.21 Immunization not carried out because of patient refusal; Z88.1 Allergy status to other antibiotic agents; Z88.8 Allergy status to other drugs, medicaments and biological substances
CPT/HCPCS: 36415; 71275; 72040; 72070; 80048; 82728; 83540; 83550; 84100; 84132; 85025; 85610; 85730; 90935; 96374; 96375; 96376; 99285

== ENCOUNTER 2023-06-01 13:56 | Observation (INO) | payer MEDICARE, OTHER ==
--- NOTE | 2023-06-01 14:31 | ED ---
Chest Pain HPI - General Source: patient, RN notes reviewed Mode of arrival: ambulatory Limitations: no limitations <Luis Fernando Mohan - Last Filed: 06/01/23 14:31> <Oscar Lawson - Last Filed: 06/01/23 16:45> - General Chief Complaint: Chest Pain Stated Complaint: chest discomfort/ nausea Time Seen by Provider: 06/01/23 14:31 - History of Present Illness Initial Comments: 32-year-old female presents emergency department shortness of breath, pain. Patient states that she did go to dialysis yesterday. She states she's has some chest discomfort. Patient denies any fevers or chills (Luis Fernando Mohan) This is a 32-year-old female with past medical history significant for polycystic kidney disease. Patient states she's been on dialysis for 7 years. Patient comes in today because she is getting fluid in her leg and her belly and states that she just had dialysis today but does not feel well. Patient states she's feeling more short of breath and more distention to her abdomen. Patient states this is typical chest pain when she has to much fluid and typical abdominal pain when she is too much fluid. Patient denies any fever chills per patient denies any back pain. Patient denies any other symptoms at this time. (Oscar Lawson) - Related Data Home Medications Medication Instructions Recorded Confirmed Albuterol Sulfate [Proair Hfa] 2 puff INHALATION RT-Q6H PRN 01/22/16 03/23/23 hydrALAZINE HCL [Apresoline] 100 mg PO TID 11/16/18 03/23/23 Cinacalcet HCl [Sensipar] 120 mg PO MOWEFR 02/26/19 03/23/23 Calcium Acetate [PhosLo] 2,668 mg PO TID-W/MEALS 05/01/20 03/23/23 Lidocaine-Prilocaine Cream [[place] 1 applic TOPICAL DAILY PRN 05/01/20 03/23/23 Cream 2.5%/2.5%] calcitrioL [Calcitriol] 3 mcg PO MOWEFR 10/29/21 03/23/23 hydrOXYzine HCL [Atarax] 25 mg PO TID PRN 10/29/21 03/23/23 Acetaminophen Tab [Tylenol] 1,000 mg PO Q6HR PRN 05/26/22 03/23/23 Calcium Acetate [PhosLo] 667 - 1,334 mg PO BID PRN 05/26/22 03/23/23 Pantoprazole [Protonix] 40 mg PO DAILY PRN 01/18/23 03/23/23 Ondansetron Odt [Zofran ODT] 4 mg PO Q12HR PRN 02/27/23 03/23/23 Docusate [Colace] 100 mg PO BID PRN 03/23/23 03/23/23 Sodium Zirconium Cyclosilicate 10 gm PO DAILY 03/23/23 03/23/23 [Lokelma] Previous Rx's Medication Instructions Recorded carvediloL [Coreg*] 37.5 mg PO BID-W/MEALS 30 Days 01/20/23 #180 tab NIFEdipine XL [Procardia XL] 90 mg PO BID #60 tab 03/02/23 Cyclobenzaprine [Flexeril] 5 mg PO TID PRN #15 tablet 03/25/23 Darbepoetin Aamir [Aranesp] 40 mcg SQ Q7D each 03/25/23 HYDROcodone/APAP 7.5-325MG [[place] 1 each PO Q6HR PRN #20 tab 03/25/23 7.5-325] Lidocaine 5% Patch [Lidoderm 5% 1 each TP DAILY #30 patch 03/25/23 Patch] predniSONE [Deltasone] 20 mg PO BID #8 tab 03/25/23 Allergies Allergy/AdvReac Type Severity Reaction Status Date / Time vancomycin Allergy Anaphylaxis Verified 06/01/23 14:06 hydralazine AdvReac Rapid Verified 06/01/23 14:06 Heart Rate WHEN GIVEN THROUGH IV Review of Systems ROS Other: All systems not noted in ROS Statement are negative. <Luis Fernando Mohan - Last Filed: 06/01/23 14:31> ROS Other: All systems not noted in ROS Statement are negative. <Oscar Lawson - Last Filed: 06/01/23 16:45> ROS Statement: Those systems with pertinent positive or pertinent negative responses have been documented in the HPI. 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 History of Any Multi-Drug Resistant Organisms: None Reported Past Surgical History: Heart Catheterization, Hernia Repair Additional Past Surgical History / Comment(s): 06/14/18 cardiac cath at [facility] to check coronary pressures, 11/15/09 Failed kidney transplant R pelvis, dialysis catheter in and out, current L upper arm AVG, supra pubic hernia repair, t ransvaginal mesh, wisdom teeth extraction with anesthesia, 2016 failed kidney transplant Past Anesthesia/Blood Transfusion Reactions: No Reported Reaction Additional Past Anesthesia/Blood Transfusion Reaction / Comment(s): Pt has received blood in past without reaction. Past Psychological History: Anxiety, Depression Smoking Status: Former smoker Past Alcohol Use History: None Reported Past Drug Use History: None Reported, Marijuana - Past Family History Father Family Medical History: No Reported History Additional Family Medical History / Comment(s): Father is healthy and is 62 yrs old. Mother Family Medical History: No Reported History Additional Family Medical History / Comment(s): Mother is healthy and is 60 yrs old. <Luis Fernando Mohan - Last Filed: 06/01/23 14:31> General Exam Limitations: no limitations <Luis Fernando Mohan - Last Filed: 06/01/23 14:31> <Oscar Lawson - Last Filed: 06/01/23 16:45> - General Exam Comments Initial Comments: Visual Physical Exam Vital signs reviewed General: Well-appearing, nontoxic, no acute distress. Head: Normocephalic, atraumatic Eyes: PERRLA, EOMI ENT: Airway patent Chest: Nonlabored breathing Skin: No visual rash, normal skin tone Neuro: Alert and oriented 3 Musculoskeletal: No gross abnormalities (Luis Fernando Mohan) GENERAL: Patient is well-developed and well-nourished. Patient is nontoxic and well- hydrated and is in mild distress. ENT: Neck is soft and supple. No significant lymphadenopathy is noted. Oropharynx is clear. Moist mucous membranes. Neck has full range of motion without eliciting any pain. EYES: The sclera were anicteric and conjunctiva were pink and moist. Extraocular movements were intact and pupils were equal round and reactive to light. Eyelids were unremarkable. PULMONARY: Unlabored respirations. Good breath sounds bilaterally. No audible rales rhonchi or wheezing was noted. CARDIOVASCULAR: There is a regular rate and rhythm without any murmurs gallops or rubs. ABDOMEN: Mild diffuse tenderness. SKIN: Skin is clear with no lesions or rashes and otherwise unremarkable. NEUROLOGIC: Patient is alert and oriented x3. Cranial nerves II through XII are grossly intact. Motor and sensory are also intact. Normal speech, volume and content. Symmetrical smile. MUSCULOSKELETAL: Normal extremities with adequate strength and full range of motion. 1+ edema bilaterally LYMPHATICS: No significant lymphadenopathy is noted PSYCHIATRIC: Normal psychiatric evaluation. (Oscar Lawson) Course Vital Signs 06/01/23 14:04 Temperature 98.7 F Pulse Rate 91 Respiratory 20 Rate Blood Pressure 113/68 O2 Sat by Pulse 97 Oximetry Chest Pain MDM <Luis Fernando Mohan - Last Filed: 06/01/23 14:31> <Oscar Lawson - Last Filed: 06/01/23 16:45> - MDM I completed the quick note portion of this chart signed Luis Fernando Mohan PA-C (Luis Fernando Mohan) Was pt. sent in by a medical professional or institution (KAROLYN Moore, PRINT TRAFFIC MANAGER, urgent care, hospital, or long-term...) When possible be specific @ -No Did you speak to anyone other than the patient for history (EMS, parent, family, police, friend...)? What history was obtained from this source @ -No Did you review nursing and triage notes (agree or disagree)? Why? @ -I reviewed and agree with nursing and triage notes Were old charts reviewed (outside hosp., previous admission, EMS record, old EKG, old radiological studies, urgent care reports/EKG's, long-term records)? Report findings @ -I reviewed prior charts in prior labwork on this patient Differential Diagnosis (chest pain, altered mental status, abdominal pain women, abdominal pain men, vaginal bleeding, weakness, fever, dyspnea, syncope, headache, dizziness, GI bleed, back pain, seizure, CVA, palpatations, mental health, musculoskeletal)? @ -Differential Chest Pain: Stable Angina, Unstable Angina, STEMI, NSTEMI Aortic Dissection, Pneumothorax, Musculoskeletal, Esophageal Spasm GERD, Cholecystitis, Pancreatitis, Zoster, this is not meant to be an all-inclusive list. Differential Abdominal Pain Women: Appendicitis, Cholecystitis, diverticulosis, ischemic bowel, pancreatitis, hepatitis, UTI, gastroenteritis, AAA, incarcerated hernia, bowel obstruction, constipation, inflammatory bowel, hepatitis, peptic ulcer disease, splenic infarction, perforated viscus, vulvitis, ovarian torsion, PID, kidney stone, placenta abruption, this is not meant to be an all-inclusive list EKG interpreted by me (3pts min.). @ -As above X-rays interpreted by me (1pt min.). @ -Chest x-ray shows early pulmonary edema CT interpreted by me (1pt min.). @ -None done U/S interpreted by me (1pt. min.). @ -None done What testing was considered but not performed or refused? (CT, X-rays, U/S, labs)? Why? @ -None What meds were considered but not given or refused? Why? @ -None Did you discuss the management of the patient with other professionals (professionals i.e. , PA, PRINT TRAFFIC MANAGER, lab, RT, psych nurse, social welfare research worker, paste up worker, teacher, agricultural technical officer, housing case manager)? Give summary @ -I spoke with Dr. Josue and Dr. Josue agreed to admit the patient admitted the patient I consult the nephrology. Was smoking cessation discussed for >3mins.? @ -No Was critical care preformed (if so, how long)? @ -No Were there social determinants of health that impacted care today? How? (Homelessness, low income, unemployed, alcoholism, drug addiction, transportation, low edu. Level, literacy, decrease access to med. care, correction, rehab)? @ -No Was there de-escalation of care discussed even if they declined (Discuss DNR or withdrawal of care, Hospice)? DNR status @ -No What co-morbidities impacted this encounter? (DM, HTN, Smoking, COPD, CAD, Cancer, CVA, ARF, Chemo, Hep., AIDS, mental health diagnosis, sleep apnea, morbid obesity)? @ -None Was patient admitted / discharged? Hospital course, mention meds given and route, prescriptions, significant lab abnormalities, going to OR and other pertinent info. @ -Patient's lab work was consistent with prior labwork patient insists that she needs more fluid taken off because she feels edematous around the abdomen and feet and she states when she gets edematous like that she has this chest discomfort abdominal discomfort that she currently is experiencing. Undiagnosed new problem with uncertain prognosis? @ -No Drug Therapy requiring intensive monitoring for toxicity (Heparin, Nitro, Insulin, Cardizem)? @ -No Were any procedures done? @ -No Diagnosis/symptom? @ -Chest pain Acute, or Chronic, or Acute on Chronic? @ -Acute Uncomplicated (without systemic symptoms) or Complicated (systemic symptoms)? @ -Complicated Side effects of treatment? @ -No Exacerbation, Progression, or Severe Exacerbation? @ -No Poses a threat to life or bodily function? How? (Chest pain, [place], [place], pneumonia, PE, COPD, DKA, ARF, appy, cholecystitis, CVA, Diverticulitis, Homicidal, Suicidal, threat to staff... and all critical care pts) @ -No Diagnosis/symptom? @ -Abdominal pain Acute, or Chronic, or Acute on Chronic? @ -Acute Uncomplicated (without systemic symptoms) or Complicated (systemic symptoms)? @ -Complicated Side effects of treatment? @ -none Exacerbation, Progression, or Severe Exacerbation] @ -no Poses a threat to life or bodily function? @ -no Diagnosis/symptom? @ -Chronic renal failure Acute, or Chronic, or Acute on Chronic? @ -default Uncomplicated (without systemic symptoms) or Complicated (systemic symptoms)? @ -Complicated Side effects of treatment? @ -none Exacerbation, Progression, or Severe Exacerbation] @ -no Poses a threat to life or bodily function? @ -no (Oscar Lawson) Disposition <Luis Fernando Mohan - Last Filed: 06/01/23 14:31> Time of Disposition: 16:45 <Oscar Lawson - Last Filed: 06/01/23 16:45> Clinical Impression: Abdominal pain, Chest pain, Chronic renal failure Disposition: ADMITTED IP TO THIS HOSP Referrals: Karo Alicea MD [Primary Care Provider] - 1-2 days
[2023-06-01 14:58] LABS: Anisocytosis Slight; Basophils % (A) 0 %; Eosinophils # (A) 0.3 k/uL (0-0.7); Eosinophils % (A) 7 %; HCT 37.6 % (34.0-46.0); HGB 11.6 gm/dL (11.4-16.0); Hypochromasia Slight; Lymphocytes # (A) 0.7 k/uL (1.0-4.8); Lymphocytes % (A) 14 %; MCH 29.6 pg (25.0-35.0); MCHC 30.8 g/dL (31.0-37.0); Macrocytosis Slight; Mean Platelet Volume 9.1; Monocytes # (A) 0.2 k/uL (0-1.0); Monocytes % (A) 4 %; Neutrophils # (A) 3.4 k/uL (1.3-7.7); Neutrophils % (A) 73 %; Platelet Count 152 k/uL (150-450); RBC 3.92 m/uL (3.80-5.40); RDW 17.6 % (11.5-15.5); WBC 4.7 k/uL (3.8-10.6)
[2023-06-01 15:10] LABS: ALT 21 U/L (4-34); AST 28 U/L (14-36); African American GFR (CKD) 6 (>60 ml/min/1.73 sqM); Albumin 4.5 g/dL (3.5-5.0); Alkaline Phosphatase 102 U/L (38-126); Anion Gap 17 mmol/L; Blood Urea Nitrogen 64 mg/dL (7-17); Calcium 8.6 mg/dL (8.4-10.2); Carbon Dioxide 22 mmol/L (22-30); Chloride 100 mmol/L (98-107); Glucose 138 mg/dL (74-99); Magnesium 2.1 mg/dL (1.6-2.3); Non-African American GFR(CKD) 5 (>60 ml/min/1.73 sqM); Sodium 139 mmol/L (137-145); Total Bilirubin 0.7 mg/dL (0.2-1.3); Total Protein 8.1 g/dL (6.3-8.2)
--- NOTE | 2023-06-01 15:21 | XR ---
EXAMINATION TYPE: XR chest 2V DATE OF EXAM: 06/01/2023 COMPARISON: 02/27/2023 INDICATION: Chest pain TECHNIQUE: Single frontal view of the chest is obtained. FINDINGS: The heart size is enlarged. The pulmonary vasculature is prominent. Mild right lower lobe infiltrate may be present. IMPRESSION: 1. Mild right lower lung field infiltrate. Correlate for atelectasis. Atypical pulmonary edema could be considered. 2. Cardiomegaly with prominent pulmonary vascular markings. Correlate for volume overload.
[2023-06-01 15:41] LABS: INR 1.1 (<1.2); Partial Thromboplastin Time 27.3 sec (22.0-30.0); Prothrombin Time 11.5 sec (10.0-12.5)
[2023-06-01 16:05] LABS: NT-Pro-B-Type Natriuretic Pept 67100 pg/mL
[2023-06-01] MEDS ORDERED: HYDROmorphone 0.5 MG/0.5 ML SYRINGE IVP STA ×2 (16:23→22:31)
[2023-06-01] MEDS ORDERED: NITROGLYCERIN SL TABS 0.4 MG TAB SUBLINGUAL PRN (16:46)
[2023-06-01] MEDS ORDERED: ALBUTEROL NEBULIZED 2.5 MG/3 ML INHALATION PRN (19:49)
[2023-06-01] MEDS ORDERED: CYCLOBENZAPRINE 5 MG TAB PO PRN (19:49)
[2023-06-01] MEDS ORDERED: hydrOXYzine HCL 25 MG TAB PO PRN (19:49)
[2023-06-01] MEDS ORDERED: ACETAMINOPHEN TAB 500 MG TAB PO PRN (19:49)
[2023-06-01] MEDS ORDERED: ONDANSETRON ODT 4 MG TAB PO PRN (19:49)
[2023-06-01] MEDS ORDERED: LIDOCAINE-PRILOCAINE 2.5-2.5% CREAM 5 GM TUBE TOPICAL PRN (19:49)
[2023-06-01] MEDS ORDERED: PANTOPRAZOLE 40 MG TABLET PO PRN (19:49)
[2023-06-01] MEDS ORDERED: DOCUSATE 100 MG CAP PO PRN (19:49)
[2023-06-01] MEDS ORDERED: CALCIUM ACETATE 667 MG TAB PO PRN (19:49)
[2023-06-01] MEDS ORDERED: DARBEPOETIN ALFA 40 MCG/0.4 ML SYRINGE SQ SCH (20:00)
[2023-06-01] MEDS: NIFEdipine XL 90 MG TAB.ER.24 PO SCH (20:21)
[2023-06-01] MEDS: hydrALAZINE HCL 50 MG TAB PO SCH (20:21)
[2023-06-01] MEDS: HYDROcodone/APAP 7.5-325MG 1 EACH TAB PO PRN (20:21)
[2023-06-01] MEDS ORDERED: CINACALCET 30 MG TAB PO SCH (21:00)
[2023-06-02] MEDS ORDERED: carvediloL 12.5 MG TAB PO SCH (07:30)
[2023-06-02] MEDS: NIFEdipine XL 90 MG TAB.ER.24 PO SCH (09:00)
[2023-06-02] MEDS ORDERED: ASPIRIN 325 MG TAB PO SCH (09:00)
[2023-06-02] MEDS: hydrALAZINE HCL 50 MG TAB PO SCH (09:00)
[2023-06-02] MEDS: CALCIUM ACETATE 667 MG TAB PO SCH ×2 (09:01→12:17)
[2023-06-02] MEDS: HYDROcodone/APAP 7.5-325MG 1 EACH TAB PO PRN (09:08)
[2023-06-02 09:16] VITALS: PULSE 80
[2023-06-02] MEDS ORDERED: PANTOPRAZOLE 40 MG/10 ML VIAL IVP SCH (10:45)
--- NOTE | 2023-06-02 10:51 | P.HPIM ---
History of Present Illness Patient is a 32-year-old female with a significant history of polycystic kidney disease, on hemodialysis with the Wednesday dialysis schedule, came in with epigastric burning sensation radiating to the retrosternal area along with nausea. Patient was also complaining of some orthopnea and denied any paroxysmal nocturnal dyspnea. Patient had a chest x-ray which showed mild pulmonary edema along with some atelectasis. She feels like her abdomen is distended patient had last bowel movement that is today morning. Patient doesn't have leukocytosis mild elevated troponin of 0.079 with elevated creatinine of 9.14 troponins are stable at that level. Chest pain is also reproducible. REVIEW OF SYSTEMS: CONSTITUTIONAL: No fever, no malaise, no fatigue. HEENT: No recent visual problems or hearing problems. Denied any sore throat. CARDIOVASCULAR: No orthopnea, PND, no palpitations, no syncope. PULMONARY: No shortness of breath, no cough, no hemoptysis. GASTROINTESTINAL: No diarrhea, no nausea, no vomiting, no abdominal pain. NEUROLOGICAL: No headaches, no weakness, no numbness. HEMATOLOGICAL: Denies any bleeding or petechiae. GENITOURINARY: Denies any burning micturition, frequency, or urgency. MUSCULOSKELETAL/RHEUMATOLOGICAL: Denies any joint pain, swelling, or any muscle pain. ENDOCRINE: Denies any polyuria or polydipsia. The rest of the 14-point review of systems is negative. PHYSICAL EXAMINATION: GENERAL: The patient is alert and oriented x3, not in any acute distress. Well developed, well nourished. HEENT: Pupils are round and equally reacting to light. EOMI. No scleral icterus. No conjunctival pallor. Normocephalic, atraumatic. No pharyngeal erythema. No thyromegaly. CARDIOVASCULAR: S1 and S2 present. No murmurs, rubs, or gallops. PULMONARY: Chest is clear to auscultation, no wheezing or crackles. ABDOMEN: Soft, slightly distended without any significant tenderness normoactive bowel sounds. No palpable organomegaly. MUSCULOSKELETAL: No joint swelling or deformity. EXTREMITIES: No cyanosis, clubbing, or pedal edema. NEUROLOGICAL: Gross neurological examination did not reveal any focal deficits. SKIN: No rashes. Assessment and plan -Epigastric abdominal pain, retrosternal burning sensation, chest pain: Secondary to gastric is visual reflux disease patient will be given IV Protonix and if her pain improves and if she can tolerate the diet to patient can be discharged after dialysis cleared by nephrology. Patient's symptomatology is not consistent with cardiac chest pain. EKG did not show any acute ST-T wave changes did show left and 5 hypertrophy from her chronic hypertension -Mild elevation of troponin secondary to end-stage renal disease and is a chronic elevation -End-stage renal disease: Secondary to 160 kidney disease and the patient will undergo hemodialysis today. Patient had a failed renal transplant -Mild volume overload secondary to end-stage renal disease expected to improve with hemodialysis -Hyper tension: Secondary to kidney disease -Congestive heart failure chronic systolic dysfunction year for of around 35-40% patient may be in mild acute exacerbation expected to improve with dialysis - DVT prophylaxis: Subcutaneous heparin If patient feels better after hemodialysis, if she can tolerate the diet and will be discharged today on what on pump inhibitor for a week followed by [facility] Past Medical History Past Medical History: Asthma, Heart Failure, Hypertension, Renal Disease Additional Past Medical History / Comment(s): ESRD d/t being born with poly cystic kidney disease, failed kidney transplant, hemodialysis (M,W,Fr) chronic anemia, 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 History of Any Multi-Drug Resistant Organisms: None Reported Past Surgical History: Heart Catheterization, Hernia Repair Additional Past Surgical History / Comment(s): 06/14/18 cardiac cath at [facility] to check coronary pressures, 11/15/09 Failed kidney transplant R pelvis, dialysis catheter in and out, current L upper arm AVG, supra pubic hernia repair, transvaginal mesh, wisdom teeth extraction with anesthesia, 2016 failed kidney transplant Past Anesthesia/Blood Transfusion Reactions: No Reported Reaction Additional Past Anesthesia/Blood Transfusion Reaction / Comment(s): Pt has received blood in past without reaction. Smoking Status: Former smoker - Past Family History Father Family Medical History: No Reported History Additional Family Medical History / Comment(s): Father is healthy and is 62 yrs old. Mother Family Medical History: No Reported History Additional Family Medical History / Comment(s): Mother is healthy and is 60 yrs old. Medications and Allergies Home Medications Medication Instructions Recorded Confirmed Type Albuterol Sulfate [Proair Hfa] 2 puff INHALATION RT-Q6H PRN 01/22/16 06/01/23 History hydrALAZINE HCL [Apresoline] 100 mg PO TID 11/16/18 06/01/23 History Cinacalcet HCl [Sensipar] 120 mg PO HS 02/26/19 06/01/23 History Calcium Acetate [PhosLo] 2,668 mg PO TID-W/MEALS 05/01/20 06/01/23 History calcitrioL [Calcitriol] 3 mcg PO MOWEFR 10/29/21 06/01/23 History hydrOXYzine HCL [Atarax] 25 mg PO TID PRN 10/29/21 06/01/23 History Acetaminophen Tab [Tylenol] 1,000 mg PO Q6HR PRN 05/26/22 06/01/23 History Calcium Acetate [PhosLo] 667 - 1,334 mg PO BID PRN 05/26/22 06/01/23 History Pantoprazole [Protonix] 40 mg PO DAILY PRN 01/18/23 06/01/23 History carvediloL [Coreg*] 37.5 mg PO BID-W/MEALS 30 Days 01/20/23 06/01/23 Rx #180 tab Ondansetron Odt [Zofran ODT] 4 mg PO Q12HR PRN 02/27/23 06/01/23 History NIFEdipine XL [Procardia XL] 90 mg PO BID #60 tab 03/02/23 06/01/23 Rx Docusate [Colace] 100 mg PO BID PRN 03/23/23 06/01/23 History Sodium Zirconium Cyclosilicate 10 gm PO DAILY 03/23/23 06/01/23 History [Lokelma] Cyclobenzaprine [Flexeril] 5 mg PO TID PRN #15 tablet 03/25/23 06/01/23 Rx Darbepoetin Aamir [Aranesp] 40 mcg SQ DIRECTED 06/01/23 06/01/23 History HYDROcodone/APAP 7.5-325MG [[place] 1 tab PO Q6HR PRN 06/01/23 06/01/23 History 7.5-325] Lidocaine [Lidocaine Rectal Cream 1 applic TOPICAL DAILY PRN 06/01/23 06/01/23 History 5%] Allergies Allergy/AdvReac Type Severity Reaction Status Date / Time vancomycin Allergy Anaphylaxis Verified 06/01/23 18:06 hydralazine AdvReac Rapid Verified 06/01/23 18:06 Heart Rate WHEN GIVEN THROUGH IV Physical Exam Vitals: Vital Signs Temp Pulse Pulse Resp BP BP Pulse Ox 06/02/23 08:00 98.2 F 80 18 145/85 95 06/02/23 03:46 83 16 161/93 98 06/01/23 23:33 88 18 160/91 99 06/01/23 20:00 87 18 158/90 99 06/01/23 18:49 98.4 F 88 20 154/83 93 L 06/01/23 18:43 78 18 139/93 99 06/01/23 14:04 98.7 F 91 20 113/68 97 Intake and Output 06/01/23 06/02/23 06/02/23 22:59 06:59 14:59 Intake Total 118 Balance 118 Intake: Oral 118 Other: Weight 56 kg 55.7 kg Results CBC & Chem 7: 06/01/23 14:33 06/01/23 14:33 Labs: Abnormal Lab Results - Last 24 Hours (Table) 06/01/23 06/01/23 06/01/23 Range/Units 14:33 14:33 14:33 MCHC 30.8 L (31.0-37.0) g/dL RDW 17.6 H (11.5-15.5) % Lymphocytes # 0.7 L (1.0-4.8) k/uL BUN 64 H (7-17) mg/dL Creatinine 9.14 H* (0.52-1.04) mg/dL Glucose 138 H (74-99) mg/dL Troponin I 0.089 H* (0.000-0.034) ng/mL 06/01/23 06/01/23 Range/Units 17:18 20:47 MCHC (31.0-37.0) g/dL RDW (11.5-15.5) % Lymphocytes # (1.0-4.8) k/uL BUN (7-17) mg/dL Creatinine (0.52-1.04) mg/dL Glucose (74-99) mg/dL Troponin I 0.072 H* 0.079 H* (0.000-0.034) ng/mL Thrombosis Risk Factor Assmnt - Choose All That Apply Each Factor Represents 1 point: Swollen legs (current) Other congenital or acquired thrombophilia - If yes, enter type in comment: No Thrombosis Risk Factor Assessment Total Risk Factor Score: 1 Thrombosis Risk Factor Assessment Level: Low Risk
--- NOTE | 2023-06-02 10:55 | P.DS ---
Providers Date of admission: 06/01/23 16:49 Attending physician: Hasmukh Josue Consults: 06/01/23 16:46 Consult Physician Urgent Consulting Provider: Robin Thompson Consult Reason/Comments: Chronic renal failure, peripheral edema Do you want consulting provider notified?: Yes Primary care physician: [facility] Course: Patient is a 32-year-old female with a significant history of polycystic kidney disease, on hemodialysis with the Wednesday dialysis schedule, came in with epigastric burning sensation radiating to the retrosternal area along with nausea. Patient was also complaining of some orthopnea and denied any paroxysmal nocturnal dyspnea. Patient had a chest x-ray which showed mild pulmonary edema along with some atelectasis. She feels like her abdomen is distended patient had last bowel movement that is today morning. Patient doesn't have leukocytosis mild elevated troponin of 0.079 with elevated creatinine of 9.14 troponins are stable at that level. Chest pain is also reproducible. REVIEW OF SYSTEMS: CONSTITUTIONAL: No fever, no malaise, no fatigue. HEENT: No recent visual problems or hearing problems. Denied any sore throat. CARDIOVASCULAR: No orthopnea, PND, no palpitations, no syncope. PULMONARY: No shortness of breath, no cough, no hemoptysis. GASTROINTESTINAL: No diarrhea, no nausea, no vomiting, no abdominal pain. NEUROLOGICAL: No headaches, no weakness, no numbness. HEMATOLOGICAL: Denies any bleeding or petechiae. GENITOURINARY: Denies any burning micturition, frequency, or urgency. MUSCULOSKELETAL/RHEUMATOLOGICAL: Denies any joint pain, swelling, or any muscle pain. ENDOCRINE: Denies any polyuria or polydipsia. The rest of the 14-point review of systems is negative. PHYSICAL EXAMINATION: GENERAL: The patient is alert and oriented x3, not in any acute distress. Well developed, well nourished. HEENT: Pupils are round and equally reacting to light. EOMI. No scleral icterus. No conjunctival pallor. Normocephalic, atraumatic. No pharyngeal erythema. No thyromegaly. CARDIOVASCULAR: S1 and S2 present. No murmurs, rubs, or gallops. PULMONARY: Chest is clear to auscultation, no wheezing or crackles. ABDOMEN: Soft, slightly distended without any significant tenderness normoactive bowel sounds. No palpable organomegaly. MUSCULOSKELETAL: No joint swelling or deformity. EXTREMITIES: No cyanosis, clubbing, or pedal edema. NEUROLOGICAL: Gross neurological examination did not reveal any focal deficits. SKIN: No rashes. Assessment and plan -Epigastric abdominal pain, retrosternal burning sensation, chest pain: Secondary to gastric is visual reflux disease patient will be given IV Protonix and if her pain improves and if she can tolerate the diet to patient can be discharged after dialysis cleared by nephrology. Patient's symptomatology is not consistent with cardiac chest pain. EKG did not show any acute ST-T wave changes did show left and 5 hypertrophy from her chronic hypertension -Mild elevation of troponin secondary to end-stage renal disease and is a chronic elevation -End-stage renal disease: Secondary to 160 kidney disease and the patient will undergo hemodialysis today. Patient had a failed renal transplant -Mild volume overload secondary to end-stage renal disease expected to improve with hemodialysis -Hyper tension: Secondary to kidney disease -Congestive heart failure chronic systolic dysfunction year for of around 35-40% patient may be in mild acute exacerbation expected to improve with dialysis - DVT prophylaxis: Subcutaneous heparin If patient feels better after hemodialysis, if she can tolerate the diet and will be discharged today on what on pump inhibitor for a week followed by Chidi Plan - Discharge Summary Discharge Rx Participant: No New Discharge Prescriptions: Continue Albuterol Sulfate [Proair Hfa] 2 puff INHALATION RT-Q6H PRN PRN Reason: Shortness Of Breath hydrALAZINE HCL [Apresoline] 100 mg PO TID Cinacalcet HCl [Sensipar] 120 mg PO HS Calcium Acetate [PhosLo] 2,668 mg PO TID-W/MEALS hydrOXYzine HCL [Atarax] 25 mg PO TID PRN PRN Reason: Anxiety Acetaminophen Tab [Tylenol] 1,000 mg PO Q6HR PRN PRN Reason: Pain Or Fever > 100.5 Ondansetron Odt [Zofran ODT] 4 mg PO Q12HR PRN PRN Reason: Nausea Docusate [Colace] 100 mg PO BID PRN PRN Reason: Constipation Cyclobenzaprine [Flexeril] 5 mg PO TID PRN #15 tablet PRN Reason: Spasms Darbepoetin Aamir [Aranesp] 40 mcg SQ DIRECTED calcitrioL [Calcitriol] 3 mcg PO MOWEFR Calcium Acetate [PhosLo] 667 - 1,334 mg PO BID PRN PRN Reason: WITH SNACKS carvediloL [Coreg*] 37.5 mg PO BID-W/MEALS 30 Days #180 tab NIFEdipine XL [Procardia XL] 90 mg PO BID #60 tab Sodium Zirconium Cyclosilicate [Lokelma] 10 gm PO DAILY HYDROcodone/APAP 7.5-325MG [[place] 7.5-325] 1 tab PO Q6HR PRN PRN Reason: Pain Lidocaine [Lidocaine Rectal Cream 5%] 1 applic TOPICAL DAILY PRN PRN Reason: PORT ACCESS Changed Pantoprazole [Protonix] 40 mg PO DAILY #14 Discharge Medication List Albuterol Sulfate [Proair Hfa] 2 puff INHALATION RT-Q6H PRN 01/22/16 [History] hydrALAZINE HCL [Apresoline] 100 mg PO TID 11/16/18 [History] Cinacalcet HCl [Sensipar] 120 mg PO HS 02/26/19 [History] Calcium Acetate [PhosLo] 2,668 mg PO TID-W/MEALS 05/01/20 [History] calcitrioL [Calcitriol] 3 mcg PO MOWEFR 10/29/21 [History] hydrOXYzine HCL [Atarax] 25 mg PO TID PRN 10/29/21 [History] Acetaminophen Tab [Tylenol] 1,000 mg PO Q6HR PRN 05/26/22 [History] Calcium Acetate [PhosLo] 667 - 1,334 mg PO BID PRN 05/26/22 [History] carvediloL [Coreg*] 37.5 mg PO BID-W/MEALS 30 Days #180 tab 01/20/23 [Rx] Ondansetron Odt [Zofran ODT] 4 mg PO Q12HR PRN 02/27/23 [History] NIFEdipine XL [Procardia XL] 90 mg PO BID #60 tab 03/02/23 [Rx] Docusate [Colace] 100 mg PO BID PRN 03/23/23 [History] Sodium Zirconium Cyclosilicate [Lokelma] 10 gm PO DAILY 03/23/23 [History] Cyclobenzaprine [Flexeril] 5 mg PO TID PRN #15 tablet 03/25/23 [Rx] Darbepoetin Aamir [Aranesp] 40 mcg SQ DIRECTED 06/01/23 [History] HYDROcodone/APAP 7.5-325MG [[place] 7.5-325] 1 tab PO Q6HR PRN 06/01/23 [History] Lidocaine [Lidocaine Rectal Cream 5%] 1 applic TOPICAL DAILY PRN 06/01/23 [History] Pantoprazole [Protonix] 40 mg PO DAILY #14 06/02/23 [Rx] Follow up Appointment(s)/Referral(s): Karo Alicea MD [Primary Care Provider] - 3 Days Discharge Disposition: HOME SELF-CARE
--- NOTE | 2023-06-02 11:12 | P.NPCON ---
History of Present Illness - Reason for Consult end stage renal disease - History of Present Illness Reason for consultation: End-stage renal disease History of present illness: Patient is a 32-year-old female seen in consultation for end-stage renal disease. She is maintained on hemodialysis on Wednesday schedule the AV fistula. Patient has history of failed renal transplant. Patient went to hemodialysis yesterday and underwent 4 L ultrafiltration. Patient still felt fluid overloaded and came to the hospital. She scheduled for dialysis today. Denies chest pain but does feel short of breath especially when laying flat. She denies edema in lower extremity. Hemodynamically stable. She is on room air. No vomiting or diarrhea. No fever or chills. Patient has history of tapia tolic CHF with moderate to severe tricuspid regurgitation, moderate aortic regurgitation. Vital signs are stable. General: No acute distress. HEENT: Head exam is unremarkable. LUNGS: No audible rhonchi or wheezes. HEART: Rate and Rhythm are regular. ABDOMEN: Nontender. EXTREMITITES: No edema. 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 History of Any Multi-Drug Resistant Organisms: None Reported Past Surgical History: Heart Catheterization, Hernia Repair Additional Past Surgical History / Comment(s): 06/14/18 cardiac cath at [facility] to check coronary pressures, 11/15/09 Failed kidney transplant R pelvis, dialysis catheter in and out, current L upper arm AVG, supra pubic hernia repair, transvaginal mesh, wisdom teeth extraction with anesthesia, 2016 failed kidney transplant Past Anesthesia/Blood Transfusion Reactions: No Reported Reaction Additional Past Anesthesia/Blood Transfusion Reaction / Comment(s): Pt has received blood in past without reaction. Smoking Status: Former smoker - Past Family History Father Family Medical History: No Reported History Additional Family Medical History / Comment(s): Father is healthy and is 62 yrs old. Mother Family Medical History: No Reported History Additional Family Medical History / Comment(s): Mother is healthy and is 60 yrs old. Medications and Allergies Home Medications Medication Instructions Recorded Confirmed Type Albuterol Sulfate [Proair Hfa] 2 puff INHALATION RT-Q6H PRN 01/22/16 06/01/23 History hydrALAZINE HCL [Apresoline] 100 mg PO TID 11/16/18 06/01/23 History Cinacalcet HCl [Sensipar] 120 mg PO HS 02/26/19 06/01/23 History Calcium Acetate [PhosLo] 2,668 mg PO TID-W/MEALS 05/01/20 06/01/23 History calcitrioL [Calcitriol] 3 mcg PO MOWEFR 10/29/21 06/01/23 History hydrOXYzine HCL [Atarax] 25 mg PO TID PRN 10/29/21 06/01/23 History Acetaminophen Tab [Tylenol] 1,000 mg PO Q6HR PRN 05/26/22 06/01/23 History Calcium Acetate [PhosLo] 667 - 1,334 mg PO BID PRN 05/26/22 06/01/23 History carvediloL [Coreg*] 37.5 mg PO BID-W/MEALS 30 Days 01/20/23 06/01/23 Rx #180 tab Ondansetron Odt [Zofran ODT] 4 mg PO Q12HR PRN 02/27/23 06/01/23 History NIFEdipine XL [Procardia XL] 90 mg PO BID #60 tab 03/02/23 06/01/23 Rx Docusate [Colace] 100 mg PO BID PRN 03/23/23 06/01/23 History Sodium Zirconium Cyclosilicate 10 gm PO DAILY 03/23/23 06/01/23 History [Lokelma] Cyclobenzaprine [Flexeril] 5 mg PO TID PRN #15 tablet 03/25/23 06/01/23 Rx Darbepoetin Aamir [Aranesp] 40 mcg SQ DIRECTED 06/01/23 06/01/23 History HYDROcodone/APAP 7.5-325MG [[place] 1 tab PO Q6HR PRN 06/01/23 06/01/23 History 7.5-325] Lidocaine [Lidocaine Rectal Cream 1 applic TOPICAL DAILY PRN 06/01/23 06/01/23 History 5%] Pantoprazole [Protonix] 40 mg PO DAILY #14 06/02/23 06/01/23 Rx Allergies Allergy/AdvReac Type Severity Reaction Status Date / Time vancomycin Allergy Anaphylaxis Verified 06/01/23 18:06 hydralazine AdvReac Rapid Verified 06/01/23 18:06 Heart Rate WHEN GIVEN THROUGH IV Physical Exam Vitals: Vital Signs Temp Pulse Pulse Resp BP BP Pulse Ox 06/02/23 08:00 98.2 F 80 18 145/85 95 06/02/23 03:46 83 16 161/93 98 06/01/23 23:33 88 18 160/91 99 06/01/23 20:00 87 18 158/90 99 06/01/23 18:49 98.4 F 88 20 154/83 93 L 06/01/23 18:43 78 18 139/93 99 06/01/23 14:04 98.7 F 91 20 113/68 97 Intake and Output 06/01/23 06/02/23 06/02/23 22:59 06:59 14:59 Intake Total 118 Balance 118 Intake: Oral 118 Other: Weight 56 kg 55.7 kg Results - Lab Results Most recent lab results Calcium 8.6 mg/dL (8.4-10.2) 06/01/23 14:33 Magnesium 2.1 mg/dL (1.6-2.3) 06/01/23 14:33 06/01/23 14:33 06/01/23 14:33 Assessment and Plan Plan: Assessment: 1. End-stage renal disease maintained on hemodialysis on Wednesday schedule. 2. Volume overload. 3. Acute on chronic diastolic CHF with moderate aortic insufficiency and moderate to severe tricuspid regurgitation. 4. Chronic kidney disease mineral bone disease maintained on PhosLo, calcitriol and Sensipar. 5. Hypertension with chronic kidney disease. Plan: Hemodialysis today with goal 4 L ultrafiltration. Advised patient to maintain low salt diet and fluid restriction of less than 50 ounces per day upon discharge. This has been discussed with patient multiple times outpatient. Stressed compliance with medications and hemodialysis treatments outpatient. CODE STATUS discussed with patient. She wishes to be full code. 20 minutes spent. Thank you for the consultation. I will continue to follow the patient with you during her hospital stay.
[2023-06-02 11:17] LABS: Chol/HDL Ratio 2.43 Ratio; LDL Cholesterol,Calculated 66.8 mg/dL (0.0-131.0); VLDL Calculation 9.78 mg/dL (5.00-40.00)
[2023-06-02 16:45] VITALS: BP 176/109; RESP 18; TEMP 98.3
[2023-06-02 20:25] LABS: Hepatitis B Surface Antigen Nonreactive
[2023-06-02] MEDS ORDERED: HEPARIN SODIUM,PORCINE 5,000 UNIT/ML 1 ML VIAL SQ SCH (21:00)
[2023-06-02 21:31] LABS: Hepatitis B Surface AB- Quant 11.9 mIU/mL
== END 2023-06-02 20:25 | disposition home or self-care (01) ==
LOC: EC 13:56 → 3SCARD 16:49
PROVIDERS: ADMIT Internal Medicine; ATTEND Internal Medicine
DX: K21.9 Gastro-esophageal reflux disease without esophagitis (principal); I13.2 Hypertensive heart and chronic kidney disease with heart failure and with stage 5 chronic kidney disease, or end stage renal disease; N18.6 End stage renal disease; I50.43 Acute on chronic combined systolic (congestive) and diastolic (congestive) heart failure; Q61.3 Polycystic kidney, unspecified; E11.22 Type 2 diabetes mellitus with diabetic chronic kidney disease; Z99.2 Dependence on renal dialysis; I08.3 Combined rheumatic disorders of mitral, aortic and tricuspid valves; M89.8X9 Other specified disorders of bone, unspecified site; E55.9 Vitamin D deficiency, unspecified; J45.909 Unspecified asthma, uncomplicated; J98.11 Atelectasis; R79.89 Other specified abnormal findings of blood chemistry; N92.6 Irregular menstruation, unspecified; F32.A Depression, unspecified; F41.9 Anxiety disorder, unspecified; G89.29 Other chronic pain; M54.50 Low back pain, unspecified; Z79.899 Other long term (current) drug therapy; Z88.1 Allergy status to other antibiotic agents; Z88.8 Allergy status to other drugs, medicaments and biological substances; T86.12 Kidney transplant failure; Y83.0 Surgical operation with transplant of whole organ as the cause of abnormal reaction of the patient, or of later complication, without mention of misadventure at the time of the procedure
CPT/HCPCS: 96376; 96375; 96374; 99285; 36415; 93005; 83880; 80061; 80053; 83735; 84484; 85025; 85610; 85730; 86706; 87340; 71046; G0257; G0378 ×2; C9113; J1170; 90935

== ENCOUNTER 2023-07-14 10:55 | Emergency (ER) | payer MEDICARE, OTHER ==
--- NOTE | 2023-07-14 11:47 | ED ---
General Adult HPI - General Chief complaint: Chest Pain Stated complaint: bp issue Time Seen by Provider: 07/14/23 11:23 Source: patient Mode of arrival: ambulatory Limitations: no limitations - History of Present Illness Initial comments: Dictation was produced using [employer] dictation software. please excuse any grammatical, word or spelling errors. Chief Complaint: 32-year-old female presents emergency department from hemodialysis for a blood pressure and chest pain History of Present Illness: Patient 32-year-old female past medical history of end-stage renal disease, heart failure she presents emergency department for chest pain hypertension while at dialysis today. She was only able to receive have her dialysis when she is found to be hypertensive. Patient also having chest pressure. Her dialysis was prematurely discontinued and she was sent to the emergency department. Patient has some mild chest symptoms at the bedside. No associated diaphoresis or nausea. The ROS documented in this emergency department record has been reviewed and confirmed by me. Those systems with pertinent positive or negative responses have been documented in the HPI. All other systems are other negative and/or noncontributory. - Related Data Home Medications Medication Instructions Recorded Confirmed Albuterol Sulfate [Proair Hfa] 2 puff INHALATION RT-Q6H PRN 01/22/16 06/01/23 hydrALAZINE HCL [Apresoline] 100 mg PO TID 11/16/18 06/01/23 Cinacalcet HCl [Sensipar] 120 mg PO HS 02/26/19 06/01/23 Calcium Acetate [PhosLo] 2,668 mg PO TID-W/MEALS 05/01/20 06/01/23 calcitrioL [Calcitriol] 3 mcg PO MOWEFR 10/29/21 06/01/23 hydrOXYzine HCL [Atarax] 25 mg PO TID PRN 10/29/21 06/01/23 Acetaminophen Tab [Tylenol] 1,000 mg PO Q6HR PRN 05/26/22 06/01/23 Calcium Acetate [PhosLo] 667 - 1,334 mg PO BID PRN 05/26/22 06/01/23 Ondansetron Odt [Zofran ODT] 4 mg PO Q12HR PRN 02/27/23 06/01/23 Docusate [Colace] 100 mg PO BID PRN 03/23/23 06/01/23 Sodium Zirconium Cyclosilicate 10 gm PO DAILY 03/23/23 06/01/23 [Lokelma] Darbepoetin Aamir [Aranesp] 40 mcg SQ DIRECTED 06/01/23 06/01/23 HYDROcodone/APAP 7.5-325MG [[place] 1 tab PO Q6HR PRN 06/01/23 06/01/23 7.5-325] Lidocaine [Lidocaine Rectal Cream 1 applic TOPICAL DAILY PRN 06/01/23 06/01/23 5%] Previous Rx's Medication Instructions Recorded carvediloL [Coreg*] 37.5 mg PO BID-W/MEALS 30 Days 01/20/23 #180 tab NIFEdipine XL [Procardia XL] 90 mg PO BID #60 tab 03/02/23 Cyclobenzaprine [Flexeril] 5 mg PO TID PRN #15 tablet 03/25/23 Pantoprazole [Protonix] 40 mg PO DAILY #14 06/02/23 Allergies Allergy/AdvReac Type Severity Reaction Status Date / Time vancomycin Allergy Anaphylaxis Verified 07/14/23 11:07 hydralazine AdvReac Rapid Verified 07/14/23 11:07 Heart Rate WHEN GIVEN THROUGH IV Review of Systems ROS Statement: Those systems with pertinent positive or pertinent negative responses have been documented in the HPI. ROS Other: All systems not noted in ROS Statement are negative. 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 History of Any Multi-Drug Resistant Organisms: None Reported Past Surgical History: Heart Catheterization, Hernia Repair Additional Past Surgical History / Comment(s): 06/14/18 cardiac cath at [facility] to check coronary pressures, 11/15/09 Failed kidney transplant R pelvis, dialysis catheter in and out, current L upper arm AVG, supra pubic hernia repair, transvaginal mesh, wisdom teeth extraction with anesthesia, 2016 failed kidney transplant Past Anesthesia/Blood Transfusion Reactions: No Reported Reaction Additional Past Anesthesia/Blood Transfusion Reaction / Comment(s): Pt has received blood in past without reaction. Past Psychological History: Anxiety, Depression Smoking Status: Former smoker - Past Family History Father Family Medical History: No Reported History Additional Family Medical History / Comment(s): Father is healthy and is 62 yrs old. Mother Family Medical History: No Reported History Additional Family Medical History / Comment(s): Mother is healthy and is 60 yrs old. General Exam - General Exam Comments Initial Comments: PHYSICAL EXAM: General Impression: Alert and oriented x3, not in acute distress HEENT: Normocephalic atraumatic, extra-ocular movements intact, pupils equal and reactive to light bilaterally, mucous membranes moist. Cardiovascular: Heart regular rate and rhythm Chest: Able to complete full sentences, no retractions, no tachypnea Abdomen: abdomen soft, non-tender, non-distended, no organomegaly Musculoskeletal: Pulses present and equal in all extremities, no peripheral edema Motor: no focal deficits noted Neurological: CN II-XII grossly intact, no focal motor or sensory deficits noted Skin: Intact with no visualized rashes Psych: Normal affect and mood Limitations: no limitations Course Vital Signs 07/14/23 07/14/23 11:02 11:35 Temperature 98.3 F Pulse Rate 71 65 Respiratory 18 16 Rate Blood Pressure 121/78 135/89 O2 Sat by Pulse 97 98 Oximetry EKG Findings - EKG Comments: EKG Findings:: My EKG interpretation: Ventricular rate 67, sinus rhythm,. Interval to 20, QRS 103, QTc 503. No LA prolongation, no QTC prolongation, no ST or T-wave changes noted. EKG compared to 06/01/2023 showing no changes. Overall, this EKG is unremarkable Medical Decision Making - Medical Decision Making Was pt. sent in by a medical professional or institution (, PA, ARTIFICIAL BREAST FABRICATOR, urgent care, hospital, or prison...) When possible be specific @ -No Did you speak to anyone other than the patient for history (EMS, parent, family, police, friend...)? What history was obtained from this source @ -No Did you review nursing and triage notes (agree or disagree)? Why? @ -I reviewed and agree with nursing and triage notes Were old charts reviewed (outside hosp., previous admission, EMS record, old EKG, old radiological studies, urgent care reports/EKG's, prison records)? Report findings @ -No old charts were reviewed Differential Diagnosis (chest pain, altered mental status, abdominal pain women, abdominal pain men, vaginal bleeding, musculoskeletal, weakness, fever, dyspnea, syncope, headache, dizziness, GI bleed, back pain, seizure, CVA, palpatations, mental health)? @ -Differential Chest Pain: Stable Angina, Unstable Angina, STEMI, NSTEMI Aortic Dissection, Pneumothorax, Musculoskeletal, Esophageal Spasm GERD, Cholecystitis, Pancreatitis, Zoster, this is not meant to be an all-inclusive list. EKG interpreted by me (3pts min.). @ -As above X-rays interpreted by me (1pt min.). @ -Chest x-ray is nonacute CT interpreted by me (1pt min.). @ -None done U/S interpreted by me (1pt. min.). @ -None done What testing was considered but not performed or refused? (CT, X-rays, U/S, labs)? Why? @ -None What meds were considered but not given or refused? Why? @ -None Did you discuss the management of the patient with other professionals (professionals i.e. , PA, ARTIFICIAL BREAST FABRICATOR, lab, RT, psych nurse, social sciences chair, brake coupler road freight, teacher, community cultural development officer, egg caser)? Give summary @ -No Was smoking cessation discussed for >3mins.? @ -No Was critical care preformed (if so, how long)? @ -No Were there social determinants of health that impacted care today? How? (Homelessness, low income, unemployed, alcoholism, drug addiction, transportation, low edu. Level, literacy, decrease access to med. care, assisted, rehab)? @ -No Was there de-escalation of care discussed even if they declined (Discuss DNR or withdrawal of care, Hospice)? DNR status @ -No What co-morbidities impacted this encounter? (DM, HTN, Smoking, COPD, CAD, Cancer, CVA, ARF, Chemo, Hep., AIDS, mental health diagnosis, sleep apnea, morbid obesity)? @ -ESRD, cardiac myopathy Was patient admitted / discharged? Hospital course, mention meds given and route, prescriptions, significant lab abnormalities, going to OR and other pertinent info. @ -32 yo F presents to the emergency via for chest pain hypertension like micky lysis. Vital signs upon arrival shows normal blood pressure 110/78. Patient does complain of atypical chest pain atypical features. She's been admitted multiple occasions and see cardiology several times for elevated troponins. She does not have a known history of coronary artery disease. Laboratory evaluation obtained. CBC is unremarkable. Potassium 4.2. Troponin 0.041 which is at or around her baseline. Patient recommended to be admitted observation for cardiac monitoring and serial troponins. She refused rather go home. Patient understands that her risk is not completely determine given that she has not had serial troponins. She understands the risk. Patient is of sound mind and judgment during this conversation. Patient still would prefer to be discharge. Patient is resting comfortably and in no acute distress at the bedside. Undiagnosed new problem with uncertain prognosis? @ -No Drug Therapy requiring intensive monitoring for toxicity (Heparin, Nitro, Insulin, Cardizem)? @ -No Were any procedures done? @ -No Diagnosis/symptom? Acute, or Chronic, or Acute on Chronic? Uncomplicated (without systemic symptoms) or Complicated (systemic symptoms)? @ -Chest pain Side effects of treatment? @ -No Exacerbation, Progression, or Severe Exacerbation? @ -No Poses a threat to life or bodily function? How? (Chest pain, [place], PA, pneumonia, PE, COPD, DKA, ARF, appy, cholecystitis, CVA, Diverticulitis, Homicidal, Suicidal, threat to staff... and all critical care pts) @ -yes - Lab Data Result diagrams: 07/14/23 11:42 07/14/23 11:42 Lab Results 07/14/23 07/14/23 07/14/23 Range/Units 11:42 11:42 11:42 WBC 4.7 (3.8-10.6) k/uL RBC 3.87 (3.80-5.40) m/uL Hgb 11.4 (11.4-16.0) gm/dL Hct 35.8 (34.0-46.0) % MCV 92.5 (80.0-100.0) fL MCH 29.5 (25.0-35.0) pg MCHC 31.9 (31.0-37.0) g/dL RDW 17.1 H (11.5-15.5) % Plt Count 207 (150-450) k/uL MPV 8.2 Neutrophils % 58 % Lymphocytes % 21 % Monocytes % 4 % Eosinophils % 14 % Basophils % 1 % Neutrophils # 2.7 (1.3-7.7) k/uL Lymphocytes # 1.0 (1.0-4.8) k/uL Monocytes # 0.2 (0-1.0) k/uL Eosinophils # 0.7 (0-0.7) k/uL Basophils # 0.1 (0-0.2) k/uL Hypochromasia Slight Anisocytosis Slight PT 12.1 (10.0-12.5) sec INR 1.1 (<1.2) APTT 26.3 (22.0-30.0) sec Sodium 136 L (137-145) mmol/L Potassium 4.2 (3.5-5.1) mmol/L Chloride 95 L (98-107) mmol/L Carbon Dioxide 26 (22-30) mmol/L Anion Gap 15 mmol/L BUN 30 H (7-17) mg/dL Creatinine 6.93 H (0.52-1.04) mg/dL Est GFR (CKD-EPI)AfAm 8 (>60 ml/min/1.73 sqM) Est GFR (CKD-EPI)NonAf 7 (>60 ml/min/1.73 sqM) Glucose 102 H (74-99) mg/dL Calcium 8.4 (8.4-10.2) mg/dL Magnesium 2.0 (1.6-2.3) mg/dL Total Bilirubin 1.0 (0.2-1.3) mg/dL AST 35 (14-36) U/L ALT 16 (4-34) U/L Alkaline Phosphatase 114 (38-126) U/L Troponin I (0.000-0.034) ng/mL Total Protein 8.5 H (6.3-8.2) g/dL Albumin 4.6 (3.5-5.0) g/dL 07/14/23 Range/Units 11:42 WBC (3.8-10.6) k/uL RBC (3.80-5.40) m/uL Hgb (11.4-16.0) gm/dL Hct (34.0-46.0) % MCV (80.0-100.0) fL MCH (25.0-35.0) pg MCHC (31.0-37.0) g/dL RDW (11.5-15.5) % Plt Count (150-450) k/uL MPV Neutrophils % % Lymphocytes % % Monocytes % % Eosinophils % % Basophils % % Neutrophils # (1.3-7.7) k/uL Lymphocytes # (1.0-4.8) k/uL Monocytes # (0-1.0) k/uL Eosinophils # (0-0.7) k/uL Basophils # (0-0.2) k/uL Hypochromasia Anisocytosis PT (10.0-12.5) sec INR (<1.2) APTT (22.0-30.0) sec Sodium (137-145) mmol/L Potassium (3.5-5.1) mmol/L Chloride (98-107) mmol/L Carbon Dioxide (22-30) mmol/L Anion Gap mmol/L BUN (7-17) mg/dL Creatinine (0.52-1.04) mg/dL Est GFR (CKD-EPI)AfAm (>60 ml/min/1.73 sqM) Est GFR (CKD-EPI)NonAf (>60 ml/min/1.73 sqM) Glucose (74-99) mg/dL Calcium (8.4-10.2) mg/dL Magnesium (1.6-2.3) mg/dL Total Bilirubin (0.2-1.3) mg/dL AST (14-36) U/L ALT (4-34) U/L Alkaline Phosphatase (38-126) U/L Troponin I 0.041 H* (0.000-0.034) ng/mL Total Protein (6.3-8.2) g/dL Albumin (3.5-5.0) g/dL Disposition Clinical Impression: Chest pain Disposition: HOME SELF-CARE Condition: Fair Instructions (If sedation given, give patient instructions): Chest Pain (ED) Is patient prescribed a controlled substance at d/c from ED?: No Referrals: Karo Alicea MD [Primary Care Provider] - 1-2 days Time of Disposition: 13:06
[2023-07-14 11:56] VITALS: RESP 16; TEMP 98.3
[2023-07-14 12:05] LABS: Anisocytosis Slight; Basophils # (A) 0.1 k/uL (0-0.2); Basophils % (A) 1 %; Eosinophils # (A) 0.7 k/uL (0-0.7); Eosinophils % (A) 14 %; HCT 35.8 % (34.0-46.0); HGB 11.4 gm/dL (11.4-16.0); Hypochromasia Slight; Lymphocytes % (A) 21 %; MCH 29.5 pg (25.0-35.0); MCHC 31.9 g/dL (31.0-37.0); MCV 92.5 fL (80.0-100.0); Mean Platelet Volume 8.2; Monocytes # (A) 0.2 k/uL (0-1.0); Monocytes % (A) 4 %; Neutrophils # (A) 2.7 k/uL (1.3-7.7); Neutrophils % (A) 58 %; Platelet Count 207 k/uL (150-450); RBC 3.87 m/uL (3.80-5.40); RDW 17.1 % (11.5-15.5); WBC 4.7 k/uL (3.8-10.6)
[2023-07-14 12:18] LABS: INR 1.1 (<1.2); Partial Thromboplastin Time 26.3 sec (22.0-30.0); Prothrombin Time 12.1 sec (10.0-12.5)
[2023-07-14 12:21] LABS: ALT 16 U/L (4-34); AST 35 U/L (14-36); African American GFR (CKD) 8 (>60 ml/min/1.73 sqM); Albumin 4.6 g/dL (3.5-5.0); Alkaline Phosphatase 114 U/L (38-126); Anion Gap 15 mmol/L; Blood Urea Nitrogen 30 mg/dL (7-17); Calcium 8.4 mg/dL (8.4-10.2); Carbon Dioxide 26 mmol/L (22-30); Chloride 95 mmol/L (98-107); Glucose 102 mg/dL (74-99); Non-African American GFR(CKD) 7 (>60 ml/min/1.73 sqM); Sodium 136 mmol/L (137-145); Total Protein 8.5 g/dL (6.3-8.2)
--- NOTE | 2023-07-14 12:33 | XR ---
EXAMINATION TYPE: XR chest 2V DATE OF EXAM: 07/14/2023 COMPARISON: 06/01/2023 INDICATION: Chest pain TECHNIQUE: Frontal and lateral views of the chest are obtained. FINDINGS: The heart size is enlarged. The pulmonary vasculature is upper limits of normal. No suspicious infiltrate.. IMPRESSION: 1. Cardiomegaly.
[2023-07-14 12:36] LABS: Potassium 4.2 mmol/L (3.5-5.1)
[2023-07-14] MEDS ORDERED: ASPIRIN 81 MG PO STA (13:06)
[2023-07-14 13:41] VITALS: BP 146/102; PULSE 76
== END 2023-07-14 13:20 | disposition home or self-care (01) ==
LOC: EC 10:55
DX: R07.89 Other chest pain (principal); I10 Essential (primary) hypertension; I13.2 Hypertensive heart and chronic kidney disease with heart failure and with stage 5 chronic kidney disease, or end stage renal disease; I50.9 Heart failure, unspecified; J45.909 Unspecified asthma, uncomplicated; N18.6 End stage renal disease; F41.9 Anxiety disorder, unspecified; F32.A Depression, unspecified; Z87.891 Personal history of nicotine dependence; Z99.2 Dependence on renal dialysis; Z79.899 Other long term (current) drug therapy; Z88.1 Allergy status to other antibiotic agents; Z88.6 Allergy status to analgesic agent
CPT/HCPCS: 36415; 71046; 80053; 83735; 84484; 85025; 85610; 85730; 93005; 99285

== ENCOUNTER 2023-09-05 17:48 | Inpatient (IN) | payer MEDICARE, OTHER ==
[2023-09-05] MEDS: MORPHINE SULFATE 4 MG/ML SYRINGE IVP STA (18:37)
[2023-09-05] MEDS: ONDANSETRON 4 MG/2 ML VIAL IVP STA ×2 (18:37→21:05)
[2023-09-05] MEDS: ALBUTEROL NEB (CONC) 2.5 MG/0.5 ML INHALATION ONE (18:39)
[2023-09-05] MEDS: SODIUM BICARB 8.4% 50 ML SYR (1 MEQ/ML) IV ONE (18:41)
[2023-09-05] MEDS: DEXTROSE 50% SYRINGE 50 ML IVP ONE (18:43)
--- NOTE | 2023-09-05 18:45 | ED ---
General Adult HPI - General Chief complaint: Recheck/Abnormal Lab/Rx Stated complaint: numbness and tingling Time Seen by Provider: 09/05/23 18:04 Source: patient, RN notes reviewed, old records reviewed Mode of arrival: ambulatory Limitations: no limitations - History of Present Illness Initial comments: Patient is a 33-year-old female presents emergency department for paresthesias, extremity pain, which has been ongoing for multiple weeks. Worse since Wednesday. Patient has a history of ESRD on hemodialysis as well as CHF. Denies any chest pain, shortness of breath, abdominal pain, nausea, vomiting. Is complaining of generalized paresthesias particularly in fingertips and around her lips. Recently had a parathyroidectomy in the middle of August 2023. Has followed up with her surgeon and has been doing well since. Symptoms have been present since the surgery however she states somewhat more severe since Wednesday which is why she presents for further evaluation. States she has not missed dialysis. Last run was on Wednesday. Is due for tomorrow. He normally goes Wednesday and Wednesday. Presents for further evaluation at this time. - Related Data Home Medications Medication Instructions Recorded Confirmed Albuterol Sulfate [Proair Hfa] 2 puff INHALATION RT-Q6H PRN 01/22/16 09/05/23 hydrALAZINE HCL [Apresoline] 100 mg PO TID 11/16/18 09/05/23 Calcium Acetate [PhosLo] 2,668 mg PO TID-W/MEALS 05/01/20 09/05/23 calcitrioL 4 mcg PO DAILY 10/29/21 09/05/23 hydrOXYzine HCL [Atarax] 25 mg PO TID PRN 10/29/21 09/05/23 Acetaminophen Tab [Tylenol] 1,000 mg PO Q6HR PRN 05/26/22 09/05/23 Calcium Acetate [PhosLo] 667 - 1,334 mg PO BID PRN 05/26/22 09/05/23 Ondansetron Odt [Zofran ODT] 4 mg PO Q12HR PRN 02/27/23 09/05/23 Docusate [Colace] 100 mg PO BID PRN 03/23/23 09/05/23 Sodium Zirconium Cyclosilicate 10 gm PO DAILY PRN 03/23/23 09/05/23 [Lokelma] Darbepoetin Aamir [Aranesp] 40 mcg SQ DIRECTED 06/01/23 09/05/23 HYDROcodone/APAP 7.5-325MG [[place] 1 tab PO Q6HR PRN 06/01/23 09/05/23 7.5-325] Lidocaine [Lidocaine Rectal Cream 1 applic TOPICAL DAILY PRN 06/01/23 09/05/23 5%] Calcium Carbonate [Tums] 1,000 mg PO ACHS 09/05/23 09/05/23 Lactulose 10 gm PO DAILY PRN 09/05/23 09/05/23 NIFEdipine XL [Procardia Xl] 90 mg PO BID 09/05/23 09/05/23 carvediloL [Coreg*] 12.5 mg PO BID-W/MEALS 09/05/23 09/05/23 Previous Rx's Medication Instructions Recorded Cyclobenzaprine [Flexeril] 5 mg PO TID PRN #15 tablet 03/25/23 Pantoprazole [Protonix] 40 mg PO DAILY #14 06/02/23 Allergies Allergy/AdvReac Type Severity Reaction Status Date / Time vancomycin Allergy Anaphylaxis Verified 09/05/23 19:37 hydralazine AdvReac Rapid Verified 09/05/23 19:37 Heart Rate WHEN GIVEN THROUGH IV Review of Systems ROS Statement: Those systems with pertinent positive or pertinent negative responses have been documented in the HPI. Review of Systems: CONST: Denies fever EYES: Denies blurry vision ENT: Denies nasal congestion C/V: Denies Chest pain RESP: Denies shortness of breath GI: Denies abdominal pain : Denies dysuria SKIN: Denies rash. MSK: Denies joint pain. NEURO: Denies headache ROS Other: All systems not noted in ROS Statement are negative. 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 History of Any Multi-Drug Resistant Organisms: None Reported Past Surgical History: Heart Catheterization, Hernia Repair Additional Past Surgical History / Comment(s): 06/14/18 cardiac cath at [facility] to check coronary pressures, 11/15/09 Failed kidney transplant R pelvis, dialysis catheter in and out, current L upper arm AVG, supra pubic hernia repair, transvaginal mesh, wisdom teeth extraction with anesthesia, 2016 failed kidney transplant Past Anesthesia/Blood Transfusion Reactions: No Reported Reaction Additional Past Anesthesia/Blood Transfusion Reaction / Comment(s): Pt has received blood in past without reaction. Past Psychological History: Anxiety, Depression Smoking Status: Former smoker Past Alcohol Use History: None Reported Past Drug Use History: None Reported - Past Family History Father Family Medical History: No Reported History Additional Family Medical History / Comment(s): Father is healthy and is 62 yrs old. Mother Family Medical History: No Reported History Additional Family Medical History / Comment(s): Mother is healthy and is 60 yrs old. General Exam - General Exam Comments Initial Comments: General: Appears in no acute distress. HEAD: Normal with no signs of head trauma. EYES: PERRLA, EOMI, conjunctiva normal, no discharge. ENT: Hearing grossly intact, normal oropharynx. RESPIRATORY: Clear breath sounds bilaterally. No wheezes, rales, or rhonchi. C/V: Regular rate and rhythm. S1 and S2 auscultated, no edema, peripheral pulses 2+ and intact throughout. Patient has left upper extremity AV fistula with palpable thrill and audible bruit. ABD: Abd is soft, nontender, nondistended EXT: Normal range of motion, no obvious deformity SKIN: No rashes or lesions observed on exposed skin. NEURO: Alert and oriented x 4 Limitations: no limitations Course Vital Signs 09/05/23 09/05/23 09/05/23 17:53 18:41 18:51 Temperature 98 F Pulse Rate 82 88 84 Respiratory 18 Rate Blood Pressure 147/96 O2 Sat by Pulse 98 Oximetry 09/05/23 19:35 Temperature Pulse Rate 84 Respiratory 16 Rate Blood Pressure 144/93 O2 Sat by Pulse 95 Oximetry Medical Decision Making - Medical Decision Making Was pt. sent in by a medical professional or institution (, PA, [employer] [facility], urgent care, hospital, or fci...) When possible be specific @ -No Did you speak to anyone other than the patient for history (EMS, parent, family, police, friend...)? What history was obtained from this source @ -No Did you review nursing and triage notes (agree or disagree)? Why? @ -I reviewed and agree with nursing and triage notes Were old charts reviewed (outside hosp., previous admission, EMS record, old EKG, old radiological studies, urgent care reports/EKG's, fci records)? Report findings @ -Old charts reviewed Differential Diagnosis (chest pain, altered mental status, abdominal pain women, abdominal pain men, vaginal bleeding, weakness, fever, dyspnea, syncope, headache, dizziness, GI bleed, back pain, seizure, CVA, palpatations, mental health, musculoskeletal)? @ -Electrolyte abnormalities, paresthesias, hyperkalemia, dehydration. This list is not all inclusive. EKG interpreted by me (3pts min.). @ -As above. Findings concerning for hyperkalemia. X-rays interpreted by me (1pt min.). @ -Chest x-ray reveals no obvious acute cardiopulmonary process. Very mild pulmonary vascular congestion present. CT interpreted by me (1pt min.). @ -None done U/S interpreted by me (1pt. min.). @ -None done What testing was considered but not performed or refused? (CT, X-rays, U/S, labs)? Why? @ -None What meds were considered but not given or refused? Why? @ -None Did you discuss the management of the patient with other professionals (professionals i.e. , PA, [facility] [facility] [employer] [facility], lab, RT, psych nurse, neonatal social worker, passenger service manager, teacher, attendance officer, ed case manager)? Give summary @ -I discussed with on-call nephrology, Dr. Jensen who was in agreement with the plan for hyperkalemia cocktail and I will notify him with results of repeat potassium. Repeat potassium was within acceptable limits. I discussed with him and he arrange for dialysis in the morning. We will obtain a another potassium level in the middle the night as well as morning labs. He was in agreement this plan. I spoke with Dr. Bryson of [facility] who accepted the admission. Was smoking cessation discussed for >3mins.? @ -No Was critical care preformed (if so, how long)? @ -Yes, 36 minutes Were there social determinants of health that impacted care today? How? (Homelessness, low income, unemployed, alcoholism, drug addiction, transportation, low edu. Level, literacy, decrease access to med. care, shelter, rehab)? @ -No Was there de-escalation of care discussed even if they declined (Discuss DNR or withdrawal of care, Hospice)? DNR status @ -No What co-morbidities impacted this encounter? (DM, HTN, Smoking, COPD, CAD, Cancer, CVA, ARF, Chemo, Hep., AIDS, mental health diagnosis, sleep apnea, morbid obesity)? @ -ESRD on hemodialysis Was patient admitted / discharged? Hospital course, mention meds given and route, prescriptions, significant lab abnormalities, going to OR and other pertinent info. @ -Patient presents emergency department complaining of paresthesias, as well as chronic extremity pain. Recently had a parathyroidectomy and is also a ESRD patient on hemodialysis. Screening EKG obtained upon arrival reveals hyperkalemia changes including peaked T waves. I did inform the patient of this and she will be given a hyperkalemia cocktail consisting of Lokelma, IV insulin with D50, albuterol, calcium, as well as 1 amp of bicarb. Patient was in agreement this plan. We will obtain basic labs. This includes evaluating calcium considering her parathyroidectomy recently. She was in agreement this plan. She will be given IV morphine for analgesia. Vital signs remain within acceptable limits. Patient's laboratory studies re markable for a chronic anemia. Patient has a hyper kalemia of 6.7 as well as elevated BUN and creatinine in setting of ESRD on hemodialysis. Chest x-ray shows mild pulmonary vascular congestion. I updated the patient, and she states she was feeling lightheaded at this time. Nursing staff checked and found that she was hypoglycemic. Patient was given an amp of D50 and her blood sugar improved. I spoke with on-call nephrology who was in agreement with the current management and requested repeat potassium level and I will contact him with results. It did return and was within acceptable limits. He will arrange for dialysis in the morning. We will obtain repeat labs around 1 AM. I discussed with the accepting physician, Dr. Bryson who accepted the admission. Patient's blood sugar once again did decrease to 50s. Patient will be given additional amp of D50 as well as we will increase the dextrose drip at this time. Patient was in agreement this plan. We will closely monitor. Patient admitted in serious condition for her hyperkalemia in the setting of ESRD on hemodialysis. Undiagnosed new problem with uncertain prognosis? @ -No Drug Therapy requiring intensive monitoring for toxicity (Heparin, Nitro, Insulin, Cardizem)? @ -No Were any procedures done? @ -No Diagnosis/symptom? @ -Hyperkalemia, hypoglycemia, paresthesias Acute, or Chronic, or Acute on Chronic? @ -Acute Uncomplicated (without systemic symptoms) or Complicated (systemic symptoms)? @ -Complicated Side effects of treatment? @ -No Exacerbation, Progression, or Severe Exacerbation? @ -No Poses a threat to life or bodily function? How? (Chest pain, [place], NC, pneumonia, PE, COPD, DKA, ARF, appy, cholecystitis, CVA, Diverticulitis, Homicidal, Suicidal, threat to staff... and all critical care pts) @ -Yes - Lab Data Result diagrams: 09/05/23 18:27 09/05/23 20:07 Lab Results 09/05/23 09/05/23 09/05/23 Range/Units 18:27 18:27 18:27 WBC 5.7 (3.8-10.6) k/uL RBC 3.58 L (3.80-5.40) m/uL Hgb 10.4 L (11.4-16.0) gm/dL Hct 31.9 L (34.0-46.0) % MCV 89.2 (80.0-100.0) fL MCH 29.1 (25.0-35.0) pg MCHC 32.6 (31.0-37.0) g/dL RDW 18.6 H (11.5-15.5) % Plt Count 215 (150-450) k/uL MPV 8.2 Neutrophils % 65 % Lymphocytes % 20 % Monocytes % 5 % Eosinophils % 7 % Basophils % 1 % Neutrophils # 3.7 (1.3-7.7) k/uL Lymphocytes # 1.1 (1.0-4.8) k/uL Monocytes # 0.3 (0-1.0) k/uL Eosinophils # 0.4 (0-0.7) k/uL Basophils # 0.0 (0-0.2) k/uL Hypochromasia Slight Anisocytosis Slight VBG pH 7.56 H (7.31-7.41) VBG pCO2 29 L (37-51) mmHg VBG HCO3 26 (24-28) mmol/L Sodium 134 L (137-145) mmol/L Potassium 6.7 H* (3.5-5.1) mmol/L Chloride 94 L (98-107) mmol/L Carbon Dioxide 26 (22-30) mmol/L Anion Gap 14 mmol/L BUN 65 H (7-17) mg/dL Creatinine 9.92 H* (0.52-1.04) mg/dL Est GFR (CKD-EPI)AfAm 5 (>60 ml/min/1.73 sqM) Est GFR (CKD-EPI)NonAf 5 (>60 ml/min/1.73 sqM) Glucose 80 (74-99) mg/dL POC Glucose (mg/dL) (70-110) mg/dL POC [employer] Development Analyst ID Calcium 7.3 L (8.4-10.2) mg/dL Magnesium 2.2 (1.6-2.3) mg/dL Total Bilirubin 0.8 (0.2-1.3) mg/dL AST 23 (14-36) U/L ALT 11 (4-34) U/L Alkaline Phosphatase 197 H (38-126) U/L Total Protein 9.2 H (6.3-8.2) g/dL Albumin 4.9 (3.5-5.0) g/dL TSH 0.611 (0.465-4.680) mIU/L 09/05/23 Range/Units 19:42 WBC (3.8-10.6) k/uL RBC (3.80-5.40) m/uL Hgb (11.4-16.0) gm/dL Hct (34.0-46.0) % MCV (80.0-100.0) fL MCH (25.0-35.0) pg MCHC (31.0-37.0) g/dL RDW (11.5-15.5) % Plt Count (150-450) k/uL MPV Neutrophils % % Lymphocytes % % Monocytes % % Eosinophils % % Basophils % % Neutrophils # (1.3-7.7) k/uL Lymphocytes # (1.0-4.8) k/uL Monocytes # (0-1.0) k/uL Eosinophils # (0-0.7) k/uL Basophils # (0-0.2) k/uL Hypochromasia Anisocytosis VBG pH (7.31-7.41) VBG pCO2 (37-51) mmHg VBG HCO3 (24-28) mmol/L Sodium (137-145) mmol/L Potassium (3.5-5.1) mmol/L Chloride (98-107) mmol/L Carbon Dioxide (22-30) mmol/L Anion Gap mmol/L BUN (7-17) mg/dL Creatinine (0.52-1.04) mg/dL Est GFR (CKD-EPI)AfAm (>60 ml/min/1.73 sqM) Est GFR (CKD-EPI)NonAf (>60 ml/min/1.73 sqM) Glucose (74-99) mg/dL POC Glucose (mg/dL) 24 L (70-110) mg/dL POC [employer] Analyst ID Darcie Strickland Calcium (8.4-10.2) mg/dL Magnesium (1.6-2.3) mg/dL Total Bilirubin (0.2-1.3) mg/dL AST (14-36) U/L ALT (4-34) U/L Alkaline Phosphatase (38-126) U/L Total Protein (6.3-8.2) g/dL Albumin (3.5-5.0) g/dL TSH (0.465-4.680) mIU/L - EKG Data -: EKG Interpreted by Me EKG Comments: 12-lead Electrocardiogram Interpretation Note EKG was reviewed and interpreted by myself. 12-lead ECG performed at 1807 is interpreted by me as revealing normal sinus rhythm at a rate of 80 beats per minute. Left axis deviation. [place] interval is 253 ms, QRS duration is 92 ms, QTc is 496 ms. Chronic T wave inversion seen in lead aVL.. There were no ST or T wave abnormalities to suggest myocardial ischemia or injury. R wave progression across the precordium was delayed. By my interpretation this EKG is non- diagnostic for acute ischemia. Patient does have peaked T waves, and in the past on patient's EKG this is indicative of hyperkalemia for the patient. Critical Care Time Critical Care Time: Yes Total Critical Care Time: 36 Disposition Clinical Impression: Hyperkalemia, Paresthesia, Hypoglycemia Disposition: ADMITTED IP TO THIS HOSP Condition: Serious Time of Disposition: 19:50
[2023-09-05] MEDS: INSULIN REGULAR 100 UNIT/ML VIAL (IV) IV ONE (18:47)
[2023-09-05] MEDS: SODIUM ZIRCONIUM CYCLOSILICATE 10 GM PACKET PO ONE (18:47)
[2023-09-05 18:51] LABS: VBG PH 7.56 (7.31-7.41)
[2023-09-05] MEDS: CALCIUM GLUCONATE IN NACL 1 GM in SALINE 1 100ML.BAG IVPB ONE (18:51)
[2023-09-05 18:52] LABS: Anisocytosis Slight; Basophils % (A) 1 %; Eosinophils # (A) 0.4 k/uL (0-0.7); Eosinophils % (A) 7 %; HCT 31.9 % (34.0-46.0); HGB 10.4 gm/dL (11.4-16.0); Hypochromasia Slight; Lymphocytes # (A) 1.1 k/uL (1.0-4.8); Lymphocytes % (A) 20 %; MCH 29.1 pg (25.0-35.0); MCHC 32.6 g/dL (31.0-37.0); MCV 89.2 fL (80.0-100.0); Mean Platelet Volume 8.2; Monocytes # (A) 0.3 k/uL (0-1.0); Monocytes % (A) 5 %; Neutrophils # (A) 3.7 k/uL (1.3-7.7); Neutrophils % (A) 65 %; Platelet Count 215 k/uL (150-450); RBC 3.58 m/uL (3.80-5.40); RDW 18.6 % (11.5-15.5); WBC 5.7 k/uL (3.8-10.6)
[2023-09-05] MEDS: DEXTROSE 10% IN WATER 500 ML in EMPTY BAG 1 BAG IV SCH (18:58)
[2023-09-05 19:00] LABS: ALT 11 U/L (4-34); AST 23 U/L (14-36); African American GFR (CKD) 5 (>60 ml/min/1.73 sqM); Albumin 4.9 g/dL (3.5-5.0); Alkaline Phosphatase 197 U/L (38-126); Anion Gap 14 mmol/L; Blood Urea Nitrogen 65 mg/dL (7-17); Calcium 7.3 mg/dL (8.4-10.2); Carbon Dioxide 26 mmol/L (22-30); Chloride 94 mmol/L (98-107); Glucose 80 mg/dL (74-99); Magnesium 2.2 mg/dL (1.6-2.3); Non-African American GFR(CKD) 5 (>60 ml/min/1.73 sqM); Sodium 134 mmol/L (137-145); Total Bilirubin 0.8 mg/dL (0.2-1.3); Total Protein 9.2 g/dL (6.3-8.2)
[2023-09-05 19:04] LABS: Potassium 6.7 mmol/L (3.5-5.1)
[2023-09-05 19:49] LABS: Glucose,Whole Blood 24 mg/dL (70-110)
[2023-09-05] MEDS: DEXTROSE 50% SYRINGE 50 ML IVP STA ×2 (19:50→21:20)
[2023-09-05] MEDS ORDERED: NALOXONE 0.4 MG/ML 1 ML VIAL IV PRN (19:55)
--- NOTE | 2023-09-05 19:58 | XR ---
EXAM: XR chest 1V portable CLINICAL INDICATION:Female, 33 years old with history of abdominal pain; [facility] COMPARISON: 07/14/2023 TECHNIQUE: Chest single view. FINDINGS: Lines/tubes/devices: EKG leads over the chest. Cardiomediastinum: Cardiac silhouette appears stable, moderately enlarged Unremarkable mediastinal silhouette. Surgical clips over the central base of neck could be related to thyroid surgery. Vasculature: Mild central congestion. Lungs/pleura: No consolidation, sizeable effusion, or visible pneumothorax. Bones/soft tissues: Bony thorax appears grossly intact as seen. Regional soft tissues appear unremarkable. Other: Nonspecific irregular radiodensity projecting over the left upper abdomen of uncertain etiolog y. IMPRESSION: Cardiomegaly with mild central vascular congestion.
[2023-09-05 20:07] LABS: Glucose,Whole Blood 82 mg/dL (70-110)
[2023-09-05 21:04] LABS: Glucose,Whole Blood 56 mg/dL (70-110)
[2023-09-05] MEDS ORDERED: LACTULOSE 20 GM/30 ML CUP PO PRN (21:06)
[2023-09-05] MEDS ORDERED: ACETAMINOPHEN TAB 500 MG TAB PO PRN (21:06)
[2023-09-05] MEDS ORDERED: hydrOXYzine HCL 25 MG TAB PO PRN (21:06)
[2023-09-05] MEDS: hydrALAZINE HCL 50 MG TAB PO SCH (21:29)
[2023-09-05 21:44] LABS: Glucose,Whole Blood 152 mg/dL (70-110)
[2023-09-05] MEDS: MORPHINE SULFATE 4 MG/ML SYRINGE IV PRN (21:46)
[2023-09-05 23:37] LABS: Glucose,Whole Blood 124 mg/dL (70-110)
[2023-09-06] MEDS: DEXTROSE 50% SYRINGE 50 ML IVP STA ×3 (00:47→09:59)
[2023-09-06] MEDS: CALCIUM GLUCONATE IN NACL 1 GM in SALINE 1 100ML.BAG IVPB ONE ×2 (00:47→09:59)
[2023-09-06] MEDS: SODIUM BICARB 8.4% 50 ML SYR (1 MEQ/ML) IV STA ×2 (00:47→09:59)
[2023-09-06] MEDS: INSULIN REGULAR 100 UNIT/ML VIAL (IV) IV ONE ×2 (00:48→09:59)
[2023-09-06] MEDS: SODIUM ZIRCONIUM CYCLOSILICATE 10 GM PACKET PO ONE (00:48)
[2023-09-06 01:23] LABS: Glucose,Whole Blood 82 mg/dL (70-110)
[2023-09-06 01:54] LABS: Glucose,Whole Blood 40 mg/dL (70-110)
[2023-09-06 02:31] LABS: Glucose,Whole Blood 46 mg/dL (70-110)
[2023-09-06 03:17] LABS: Glucose,Whole Blood 55 mg/dL (70-110)
[2023-09-06] MEDS: ONDANSETRON 4 MG/2 ML VIAL IVP PRN (03:23)
[2023-09-06 03:57] LABS: Glucose,Whole Blood 94 mg/dL (70-110)
[2023-09-06 06:48] LABS: Glucose,Whole Blood 94 mg/dL (70-110)
[2023-09-06] MEDS: CYCLOBENZAPRINE 5 MG TAB PO PRN (06:54)
[2023-09-06] MEDS: carvediloL 12.5 MG TAB PO SCH (06:54)
[2023-09-06] MEDS: CALCIUM CARBONATE 500 MG CHEWABLE PO SCH (06:57)
[2023-09-06] MEDS: CALCIUM ACETATE 667 MG TAB PO SCH (06:57)
[2023-09-06] MEDS ORDERED: diphenhydrAMINE 50 MG/ML 1 ML VIAL IVP PRN (07:41)
--- NOTE | 2023-09-06 07:48 | P.HPIM ---
History of Present Illness This is a pleasant 52 years old -[place] female with past medical history of end-stage renal disease on hemodialysis, hypertension, asthma, chronic anemia and cardiomyopathy nonischemic with ejection fraction 35-40%, anxiety and depression She was recently undergone parathyroid gland removal on 08/18/23 for a chronically elevated parathyroid hormone. Patient presents with worsening chronic tingling and numbness all over her body, she says she have it on and off over the years but that is been worse lately, she loosely related to her worsening of numbness to the period of after surgery. Chest complaining of from some postural dizziness when she stands up. She complains from pain all over her body without specification. But specifically she denies abdominal pain or chest pain. She is been complaining of from loose stool but she is on lactulose. Yesterday she has to lose bowel movement. No blood in stool He does not make urine She has some mild headache. No double vision. No weakness or numbness specific to 1 limb Get up and go test is normal Patient states she did not miss her hemodialysis She denies smoking alcohol or illicit drugs. Vitals are stable and patient is afebrile Labs reviewed chest unremarkable CBC except for mild anemia hemoglobin 10.4, BNP is unremarkable except for hyperkalemia with potassium 6.7 and 6.9, creatinine chronically elevated. Liver enzymes were unremarkable Glucose was fluctuating 82 down to 46 and 94 again PH is elevated to 7.5, pCO2 is low at 29, HCO3 is normal at 26 TSH is normal 0.6 Chest x-ray showing cardiomegaly with mild vascular congestion. Patient also has been coming from shortness of breath EKG shows sinus rhythm with first-degree AV block with a rate around [address]-T changes and QTC 486. She received cocktail for hyperkalemia. Potassium still elevated. Review of Systems Review of systems CONSTITUTIONAL: No fever, no malaise, no fatigue. HEENT: No recent visual problems or hearing problems. Denied any sore throat. CARDIOVASCULAR: No orthopnea, PND, no palpitations, no syncope. PULMONARY: , no cough, no hemoptysis. GASTROINTESTINAL: no nausea, no vomiting, . Normoactive bowel sounds. NEUROLOGICAL: No headaches, no weakness HEMATOLOGICAL: Denies any bleeding or petechiae. GENITOURINARY: Denies any burning micturition, frequency, or urgency. MUSCULOSKELETAL/RHEUMATOLOGICAL: Denies any joint pain, swelling, or any muscle pain. ENDOCRINE: Denies any polyuria or polydipsia. 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 History of Any Multi-Drug Resistant Organisms: None Reported Past Surgical History: Heart Catheterization, Hernia Repair Additional Past Surgical History / Comment(s): 06/14/18 cardiac cath at [facility] to check coronary pressures, 11/15/09 Failed kidney transplant R pelvis, dialysis catheter in and out, current L upper arm AVG, supra pubic hernia repair, transvaginal mesh, wisdom teeth extraction with anesthesia, 2016 failed kidney transplant Past Anesthesia/Blood Transfusion Reactions: No Reported Reaction Additional Past Anesthesia/Blood Transfusion Reaction / Comment(s): Pt has received blood in past without reaction. Past Psychological History: Anxiety, Depression Smoking Status: Former smoker Past Alcohol Use History: None Reported Past Drug Use History: None Reported - Past Family History Father Family Medical History: No Reported History Additional Family Medical History / Comment(s): Father is healthy and is 62 yrs old. Mother Family Medical History: No Reported History Additional Family Medical History / Comment(s): Mother is healthy and is 60 yrs old. Medications and Allergies Home Medications Medication Instructions Recorded Confirmed Type Albuterol Sulfate [Proair Hfa] 2 puff INHALATION RT-Q6H PRN 01/22/16 09/05/23 History hydrALAZINE HCL [Apresoline] 100 mg PO TID 11/16/18 09/05/23 History Calcium Acetate [PhosLo] 2,668 mg PO TID-W/MEALS 05/01/20 09/05/23 History calcitrioL 4 mcg PO DAILY 10/29/21 09/05/23 History hydrOXYzine HCL [Atarax] 25 mg PO TID PRN 10/29/21 09/05/23 History Acetaminophen Tab [Tylenol] 1,000 mg PO Q6HR PRN 05/26/22 09/05/23 History Calcium Acetate [PhosLo] 667 - 1,334 mg PO BID PRN 05/26/22 09/05/23 History Ondansetron Odt [Zofran ODT] 4 mg PO Q12HR PRN 02/27/23 09/05/23 History Docusate [Colace] 100 mg PO BID PRN 03/23/23 09/05/23 History Sodium Zirconium Cyclosilicate 10 gm PO DAILY PRN 03/23/23 09/05/23 History [Lokelma] Cyclobenzaprine [Flexeril] 5 mg PO TID PRN #15 tablet 03/25/23 09/05/23 Rx Darbepoetin Aamir [Aranesp] 40 mcg SQ DIRECTED 06/01/23 09/05/23 History HYDROcodone/APAP 7.5-325MG [[place] 1 tab PO Q6HR PRN 06/01/23 09/05/23 History 7.5-325] Lidocaine [Lidocaine Rectal Cream 1 applic TOPICAL DAILY PRN 06/01/23 09/05/23 History 5%] Pantoprazole [Protonix] 40 mg PO DAILY #14 06/02/23 09/05/23 Rx Calcium Carbonate [Tums] 1,000 mg PO ACHS 09/05/23 09/05/23 History Lactulose 10 gm PO DAILY PRN 09/05/23 09/05/23 History NIFEdipine XL [Procardia Xl] 90 mg PO BID 09/05/23 09/05/23 History carvediloL [Coreg*] 12.5 mg PO BID-W/MEALS 09/05/23 09/05/23 History Allergies Allergy/AdvReac Type Severity Reaction Status Date / Time vancomycin Allergy Anaphylaxis Verified 09/05/23 19:37 hydralazine AdvReac Rapid Verified 09/05/23 19:37 Heart Rate WHEN GIVEN THROUGH IV Physical Exam Vitals: Vital Signs Temp Pulse Resp BP Pulse Ox 09/06/23 06:00 79 16 150/93 93 L 09/06/23 02:00 83 21 164/101 96 09/06/23 00:06 95 18 160/113 94 L 09/05/23 22:00 82 20 127/81 93 L 09/05/23 21:29 97.8 F 79 16 127/81 96 09/05/23 19:35 84 16 144/93 95 09/05/23 18:51 84 09/05/23 18:41 88 09/05/23 17:53 98 F 82 18 147/96 98 Intake and Output 09/05/23 09/05/23 09/06/23 14:59 22:59 06:59 Other: Weight 54.431 kg GENERAL: The patient is alert and oriented x3, not in any acute distress. Well developed, well nourished. HEENT: Pupils are round and equally reacting to light. EOMI. No scleral icterus. No conjunctival pallor. Normocephalic, atraumatic. No pharyngeal erythema. No thyromegaly. CARDIOVASCULAR: S1 and S2 present. No murmurs, rubs, or gallops. PULMONARY: Chest is clear to auscultation, no wheezing , no crackles. ABDOMEN: Soft, nontender, nondistended, normoactive bowel sounds. No palpable organomegaly. MUSCULOSKELETAL: No joint swelling or deformity. EXTREMITIES: No cyanosis, clubbing, or pedal edema. NEUROLOGICAL: Gross neurological examination did not reveal any focal deficits. SKIN: No rashes. no petechiae. Results CBC & Chem 7: 09/05/23 18:27 09/05/23 22:37 Labs: Abnormal Lab Results - Last 24 Hours (Table) 09/05/23 09/05/23 09/05/23 Range/Units 18:27 18:27 18:27 RBC 3.58 L (3.80-5.40) m/uL Hgb 10.4 L (11.4-16.0) gm/dL Hct 31.9 L (34.0-46.0) % RDW 18.6 H (11.5-15.5) % VBG pH 7.56 H (7.31-7.41) VBG pCO2 29 L (37-51) mmHg Sodium 134 L (137-145) mmol/L Potassium 6.7 H* (3.5-5.1) mmol/L Chloride 94 L (98-107) mmol/L BUN 65 H (7-17) mg/dL Creatinine 9.92 H* (0.52-1.04) mg/dL POC Glucose (mg/dL) (70-110) mg/dL Calcium 7.3 L (8.4-10.2) mg/dL Alkaline Phosphatase 197 H (38-126) U/L Total Protein 9.2 H (6.3-8.2) g/dL 09/05/23 09/05/23 09/05/23 Range/Units 19:42 21:02 21:43 RBC (3.80-5.40) m/uL Hgb (11.4-16.0) gm/dL Hct (34.0-46.0) % RDW (11.5-15.5) % VBG pH (7.31-7.41) VBG pCO2 (37-51) mmHg Sodium (137-145) mmol/L Potassium (3.5-5.1) mmol/L Chloride (98-107) mmol/L BUN (7-17) mg/dL Creatinine (0.52-1.04) mg/dL POC Glucose (mg/dL) 24 L 56 L 152 H (70-110) mg/dL Calcium (8.4-10.2) mg/dL Alkaline Phosphatase (38-126) U/L Total Protein (6.3-8.2) g/dL 09/05/23 09/05/23 09/06/23 Range/Units 22:37 23:35 01:52 RBC (3.80-5.40) m/uL Hgb (11.4-16.0) gm/dL Hct (34.0-46.0) % RDW (11.5-15.5) % VBG pH (7.31-7.41) VBG pCO2 (37-51) mmHg Sodium (137-145) mmol/L Potassium 6.9 H* (3.5-5.1) mmol/L Chloride (98-107) mmol/L BUN (7-17) mg/dL Creatinine (0.52-1.04) mg/dL POC Glucose (mg/dL) 124 H 40 L (70-110) mg/dL Calcium (8.4-10.2) mg/dL Alkaline Phosphatase (38-126) U/L Total Protein (6.3-8.2) g/dL 09/06/23 09/06/23 Range/Units 02:29 03:15 RBC (3.80-5.40) m/uL Hgb (11.4-16.0) gm/dL Hct (34.0-46.0) % RDW (11.5-15.5) % VBG pH (7.31-7.41) VBG pCO2 (37-51) mmHg Sodium (137-145) mmol/L Potassium (3.5-5.1) mmol/L Chloride (98-107) mmol/L BUN (7-17) mg/dL Creatinine (0.52-1.04) mg/dL POC Glucose (mg/dL) 46 L 55 L (70-110) mg/dL Calcium (8.4-10.2) mg/dL Alkaline Phosphatase (38-126) U/L Total Protein (6.3-8.2) g/dL Assessment and Plan Assessment: Worsening generalized numbness Hyperkalemia, severe on admission End stage renal disease on hemodialysis Congestive heart failure chronic systolic dysfunction year for of around 35-40% patient may be in mild acute exacerbation expected to improve with dialysis Recent parathyroidectomy symptoms for chronic hyperparathyroidism Hypertension, controlled on admission Asthma, not active tissue History of Chronic anemia History of anxiety and depression, not an active issue Plan: Check orthostatic vitals Nephrology consult, with recommendation for hemodialysis We will give Calcium gluconate, sodium bicarbonate, albuterol inhaler and dextrose 50 with 5 units of regular insulin to help both hyperkalemia and hyperglycemia Change diet renal diet with low potassium Labs and medication were reviewed.. Continue same treatment. Continue with symptomatic treatment. Resume home medication. Monitor labs and vitals. DVT and GI prophylaxis. Further recommendations as per clinical course of the patient DVT prophylaxis: Subcutaneous heparin GI Prophylaxis: Pepcid PT/OT: Pending Prognosis is guarded
--- NOTE | 2023-09-06 08:42 | XR ---
EXAMINATION TYPE: XR KUB DATE OF EXAM: 09/06/2023 8:35 AM CLINICAL INDICATION:Female, 33 years old with history of pain and diarrhea; [facility] COMPARISON: 09/05/2023 07/31/20182022. TECHNIQUE: One radiographic view of the abdomen was obtained. FINDINGS: The bowel gas pattern is nonspecific without dilated loops of small or large bowel. There i s no evidence for organomegaly or pneumoperitoneum. The osseous structures are intact. No abnormal calcifications are present. Fecal material and gas are demonstrated throughout the colon and rectum. Cardiomegaly with bibasilar airspace opacities. IMPRESSION: 1. Nonspecific bowel gas pattern without radiographic evidence for acute process. 2. Bibasilar airspace opacities with primarily correlate for pneumonia and/or pulmonary vascular con gestion.
[2023-09-06] MEDS ORDERED: SODIUM ZIRCONIUM CYCLOSILICATE 10 GM PACKET PO PRN (09:00)
[2023-09-06] MEDS: ALBUTEROL NEBULIZED 2.5 MG/3 ML INHALATION STA (09:01)
[2023-09-06 09:19] LABS: Anisocytosis Slight; Basophils % (A) 0 %; Eosinophils # (A) 0.4 k/uL (0-0.7); Eosinophils % (A) 6 %; HCT 29.4 % (34.0-46.0); HGB 9.5 gm/dL (11.4-16.0); Hypochromasia Slight; Lymphocytes # (A) 0.8 k/uL (1.0-4.8); Lymphocytes % (A) 12 %; MCH 28.8 pg (25.0-35.0); MCHC 32.2 g/dL (31.0-37.0); MCV 89.5 fL (80.0-100.0); Mean Platelet Volume 8.6; Monocytes # (A) 0.3 k/uL (0-1.0); Monocytes % (A) 4 %; Neutrophils # (A) 5.2 k/uL (1.3-7.7); Neutrophils % (A) 77 %; Platelet Count 170 k/uL (150-450); RBC 3.28 m/uL (3.80-5.40); RDW 18.5 % (11.5-15.5); WBC 6.7 k/uL (3.8-10.6)
[2023-09-06 09:53] LABS: ALT 10 U/L (4-34); AST 24 U/L (14-36); African American GFR (CKD) 5 (>60 ml/min/1.73 sqM); Albumin 4.4 g/dL (3.5-5.0); Alkaline Phosphatase 152 U/L (38-126); Anion Gap 13 mmol/L; Blood Urea Nitrogen 73 mg/dL (7-17); Calcium 6.5 mg/dL (8.4-10.2); Carbon Dioxide 30 mmol/L (22-30); Chloride 91 mmol/L (98-107); Glucose 101 mg/dL (74-99); Non-African American GFR(CKD) 5 (>60 ml/min/1.73 sqM); Sodium 134 mmol/L (137-145); Total Bilirubin 0.8 mg/dL (0.2-1.3); Total Protein 8.1 g/dL (6.3-8.2)
[2023-09-06 10:45] LABS: Potassium 6.3 mmol/L (3.5-5.1)
--- NOTE | 2023-09-06 11:49 | P.NPCON ---
History of Present Illness - Reason for Consult end stage renal disease - History of Present Illness Patient is a 33-year-old female with end-stage renal disease on hemodialysis on a Wednesday schedule. Patient is admitted to the hospital with complaints of numbness around the lips and mouth as well as weakness in the legs. Potassium was 6.9 and calcium was 6.5 today. History of parathyroidectomy about 3 weeks ago maintained on calcitriol and Tums prior to admission. Patient denies having missed any of her outpatient treatments. UF of about 3.5 L on Wednesday last week. Patient is currently seen in the ER. She is seen on hemodialysis. Tolerating her treatment well. Review of Systems As per HPI. No history of fever or chills nausea vomiting abdominal pain or diarrhea or chest pain. 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 History of Any Multi-Drug Resistant Organisms: None Reported Past Surgical History: Heart Catheterization, Hernia Repair Additional Past Surgical History / Comment(s): 06/14/18 cardiac cath at [facility] to check coronary pressures, 11/15/09 Failed kidney transplant R pelvis, dialysis catheter in and out, current L upper arm AVG, supra pubic hernia repair, transvaginal mesh, wisdom teeth extraction with anesthesia, 2016 failed kidney transplant Past Anesthesia/Blood Transfusion Reactions: No Reported Reaction Additional Past Anesthesia/Blood Transfusion Reaction / Comment(s): Pt has received blood in past without reaction. Past Psychological History: Anxiety, Depression Smoking Status: Former smoker Past Alcohol Use History: None Reported Past Drug Use History: None Reported - Past Family History Father Family Medical History: No Reported History Additional Family Medical History / Comment(s): Father is healthy and is 62 yrs old. Mother Family Medical History: No Reported History Additional Family Medical History / Comment(s): Mother is healthy and is 60 yrs old. Medications and Allergies Home Medications Medication Instructions Recorded Confirmed Type Albuterol Sulfate [Proair Hfa] 2 puff INHALATION RT-Q6H PRN 01/22/16 09/05/23 History hydrALAZINE HCL [Apresoline] 100 mg PO TID 11/16/18 09/05/23 History Calcium Acetate [PhosLo] 2,668 mg PO TID-W/MEALS 05/01/20 09/05/23 History calcitrioL 4 mcg PO DAILY 10/29/21 09/05/23 History hydrOXYzine HCL [Atarax] 25 mg PO TID PRN 10/29/21 09/05/23 History Acetaminophen Tab [Tylenol] 1,000 mg PO Q6HR PRN 05/26/22 09/05/23 History Calcium Acetate [PhosLo] 667 - 1,334 mg PO BID PRN 05/26/22 09/05/23 History Ondansetron Odt [Zofran ODT] 4 mg PO Q12HR PRN 02/27/23 09/05/23 History Docusate [Colace] 100 mg PO BID PRN 03/23/23 09/05/23 History Sodium Zirconium Cyclosilicate 10 gm PO DAILY PRN 03/23/23 09/05/23 History [Lokelma] Cyclobenzaprine [Flexeril] 5 mg PO TID PRN #15 tablet 03/25/23 09/05/23 Rx Darbepoetin Aamir [Aranesp] 40 mcg SQ DIRECTED 06/01/23 09/05/23 History HYDROcodone/APAP 7.5-325MG [[place] 1 tab PO Q6HR PRN 06/01/23 09/05/23 History 7.5-325] Lidocaine [Lidocaine Rectal Cream 1 applic TOPICAL DAILY PRN 06/01/23 09/05/23 History 5%] Pantoprazole [Protonix] 40 mg PO DAILY #14 06/02/23 09/05/23 Rx Calcium Carbonate [Tums] 1,000 mg PO ACHS 09/05/23 09/05/23 History Lactulose 10 gm PO DAILY PRN 09/05/23 09/05/23 History NIFEdipine XL [Procardia Xl] 90 mg PO BID 09/05/23 09/05/23 History carvediloL [Coreg*] 12.5 mg PO BID-W/MEALS 09/05/23 09/05/23 History Allergies Allergy/AdvReac Type Severity Reaction Status Date / Time vancomycin Allergy Anaphylaxis Verified 09/05/23 19:37 hydralazine AdvReac Rapid Verified 09/05/23 19:37 Heart Rate WHEN GIVEN THROUGH IV Physical Exam Vitals: Vital Signs Temp Pulse Resp BP Pulse Ox 09/06/23 09:22 74 18 177/112 95 09/06/23 09:12 80 09/06/23 09:03 79 09/06/23 06:00 79 16 150/93 93 L 09/06/23 02:00 83 21 164/101 96 09/06/23 00:06 95 18 160/113 94 L 09/05/23 22:00 82 20 127/81 93 L 09/05/23 21:29 97.8 F 79 16 127/81 96 09/05/23 19:35 84 16 144/93 95 09/05/23 18:51 84 09/05/23 18:41 88 09/05/23 17:53 98 F 82 18 147/96 98 Intake and Output 09/05/23 09/06/23 09/06/23 22:59 06:59 14:59 Other: Weight 54.431 kg Patient is awake, comfortable, no acute distress Examination of the heart S1 and S2 Examination of the lungs bilateral breath sounds are heard Abdomen is soft nontender Examination lower extremity shows no significant edema Incision from parathyroidectomy appears intact with dressing Results - Lab Results Most recent lab results Calcium 6.5 mg/dL (8.4-10.2) L 09/06/23 09:00 Magnesium 2.2 mg/dL (1.6-2.3) 09/05/23 18:27 09/06/23 09:00 09/06/23 09:00 Assessment and Plan Assessment: 1. End-stage renal disease on hemodialysis on a Wednesday schedule 2. Status post recent parathyroidectomy about 3 weeks ago 3. Hyperkalemia associated with end-stage renal disease 4. Hypocalcemia secondary to recent parathyroidectomy for severe mineral bone disorder maintained on calcitriol and calcium supplements. Plan: Maintain hemodialysis on Wednesday schedule. Continue with calcium supplementation along with the calcitriol Repeat labs in a.m. UF about 4 L today.
[2023-09-06] MEDS: NIFEdipine XL 90 MG TAB.ER.24 PO SCH (13:36)
[2023-09-06] MEDS: HEPARIN SODIUM,PORCINE 5,000 UNIT/ML 1 ML VIAL SQ SCH (13:37)
[2023-09-06] MEDS: FAMOTIDINE 20 MG/2 ML VIAL IV SCH (13:44)
[2023-09-06] MEDS: ALBUTEROL NEBULIZED 2.5 MG/3 ML INHALATION PRN (15:13)
[2023-09-06] MEDS: HYDROcodone/APAP 7.5-325MG 1 EACH TAB PO PRN (17:15)
--- NOTE | 2023-09-07 08:03 | XR ---
EXAMINATION TYPE: XR chest 1V DATE OF EXAM: 09/07/2023 COMPARISON: September 05, 2023 HISTORY: Chest pain TECHNIQUE: Single frontal view of the chest is obtained. FINDINGS: There is no focal air space opacity, pleural effusion, or pneumothorax seen. There is evidence of cardiomegaly. The osseous structures are intact. IMPRESSION: 1. No acute process.
--- NOTE | 2023-09-07 11:15 | P.PN ---
Subjective Patient is seen for follow-up for end-stage renal disease. She is maintained on hemodialysis on a Wednesday schedule. Still complaining of numbness in the hands. Calcium is pending from today. Scheduled for hemodialysis in a.m. Objective - Vital Signs Vital signs: Vital Signs Temp 98.1 F 09/07/23 08:17 Pulse 80 09/07/23 08:17 Resp 16 09/07/23 08:17 BP 128/77 09/07/23 08:17 Pulse Ox 94 L 09/07/23 08:17 FiO2 Intake & Output 09/06/23 09/07/23 09/07/23 18:59 06:59 18:59 Intake Total 400 240 120 Output Total 4400 Balance -4000 240 120 Weight 53.5 kg Intake: Oral 240 120 Hemodialysis 400 Output: Hemodialysis 4400 - Exam Patient is awake, comfortable, no acute distress Alert oriented x 3 Examination of the heart S1 and S2 Examination of the lungs bilateral breath sounds are heard Abdomen is soft nontender Examination of lower extremities shows no evidence of edema [employer] exam grossly intact - Labs CBC & Chem 7: 09/06/23 09:00 09/06/23 09:00 Assessment and Plan Assessment: 1. End-stage renal disease on hemodialysis on a Wednesday schedule 2. Status post recent parathyroidectomy about 3 weeks ago 3. Hyperkalemia associated with end-stage renal disease 4. Hypocalcemia secondary to recent parathyroidectomy for severe mineral bone disorder maintained on calcitriol and calcium supplements. Plan: Maintain hemodialysis on Wednesday schedule. Continue with calcium supplementation along with the calcitriol. Increased dose of calcium supplementation to 1.5 g 4 times a day Repeat labs in a.m.
[2023-09-07 12:01] LABS: Anisocytosis Slight; HCT 32.8 % (34.0-46.0); HGB 10.3 gm/dL (11.4-16.0); Hypochromasia Moderate; MCH 28.6 pg (25.0-35.0); MCHC 31.3 g/dL (31.0-37.0); MCV 91.5 fL (80.0-100.0); Mean Platelet Volume 8.6; Platelet Count 176 k/uL (150-450); RBC 3.58 m/uL (3.80-5.40); RDW 17.9 % (11.5-15.5); WBC 5.8 k/uL (3.8-10.6)
[2023-09-07 12:16] LABS: African American GFR (CKD) 7 (>60 ml/min/1.73 sqM); Anion Gap 11 mmol/L; Blood Urea Nitrogen 32 mg/dL (7-17); Carbon Dioxide 27 mmol/L (22-30); Chloride 93 mmol/L (98-107); Glucose 82 mg/dL (74-99); Non-African American GFR(CKD) 6 (>60 ml/min/1.73 sqM); Phosphorus 4.8 mg/dL (2.5-4.5); Potassium 5.2 mmol/L (3.5-5.1); Sodium 131 mmol/L (137-145)
[2023-09-07 12:28] LABS: Calcium 6.3 mg/dL (8.4-10.2)
--- NOTE | 2023-09-07 14:00 | P.PN ---
Subjective This is a pleasant 52 years old -[place] female with past medical history of end-stage renal disease on hemodialysis, hypertension, asthma, chronic anemia and cardiomyopathy nonischemic with ejection fraction 35-40%, anxiety and depression She was recently undergone parathyroid gland removal on 08/18/23 for a chronically elevated parathyroid hormone. Patient presents with worsening chronic tingling and numbness all over her body, she says she have it on and off over the years but that is been worse lately, she loosely related to her worsening of numbness to the period of after surgery. Chest complaining of from some postural dizziness when she stands up. She complains from pain all over her body without specification. But specifically she denies abdominal pain or chest pain. She is been complaining of from loose stool but she is on lactulose. Yesterday she has to lose bowel movement. No blood in stool He does not make urine She has some mild headache. No double vision. No weakness or numbness specific to 1 limb Get up and go test is normal Patient states she did not miss her hemodialysis She denies smoking alcohol or illicit drugs. Vitals are stable and patient is afebrile Labs reviewed chest unremarkable CBC except for mild anemia hemoglobin 10.4, BNP is unremarkable except for hyperkalemia with potassium 6.7 and 6.9, creatinine chronically elevated. Liver enzymes were unremarkable Glucose was fluctuating 82 down to 46 and 94 again PH is elevated to 7.5, pCO2 is low at 29, HCO3 is normal at 26 TSH is normal 0.6 Chest x-ray showing cardiomegaly with mild vascular congestion. Patient also has been coming from shortness of breath EKG shows sinus rhythm with first-degree AV block with a rate around [address]-T changes and QTC 486. She received cocktail for hyperkalemia. Potassium still elevated. 09/07/2023 Patient awake alert at baseline she status post dialysis yesterday and potassium came down to 5.2 today. 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 C. diff is ordered patient does not have bowel movements this morning Yesterday KUB was unremarkable Chest x-ray today shows improvement from pulmonary congestion. We will keep monitoring for now given her GI symptoms and we will check labs tomorrow No need for further imaging since patient has no abdominal pain or tenderness but we will keep close monitoring Objective - Vital Signs Vital signs: Vital Signs Temp 98.3 F 09/07/23 11:31 Pulse 84 09/07/23 12:07 Resp 16 09/07/23 11:31 BP 134/82 09/07/23 11:31 Pulse Ox 99 09/07/23 11:31 FiO2 Intake & Output 09/06/23 09/07/23 09/07/23 18:59 06:59 18:59 Intake Total 400 240 120 Output Total 4400 Balance -4000 240 120 Weight 53.5 kg Intake: Oral 240 120 Hemodialysis 400 Output: Hemodialysis 4400 - Exam GENERAL: The patient is alert and oriented x3, not in any acute distress. Well developed, well nourished. HEENT: Pupils are round and equally reacting to light. EOMI. No scleral icterus. No conjunctival pallor. Normocephalic, atraumatic. No pharyngeal erythema. No thyromegaly. CARDIOVASCULAR: S1 and S2 present. No murmurs, rubs, or gallops. PULMONARY: Chest is clear to auscultation, no wheezing , no crackles. ABDOMEN: Soft, nontender, nondistended, normoactive bowel sounds. No palpable organomegaly. MUSCULOSKELETAL: No joint swelling or deformity. EXTREMITIES: No cyanosis, clubbing, or pedal edema. NEUROLOGICAL: Gross neurological examination did not reveal any focal deficits. SKIN: No rashes. no petechiae. - Labs CBC & Chem 7: 09/07/23 11:40 09/07/23 11:40 Labs: Abnormal Lab Results - Last 24 Hours (Table) 09/07/23 09/07/23 Range/Units 11:40 11:40 RBC 3.58 L (3.80-5.40) m/uL Hgb 10.3 L (11.4-16.0) gm/dL Hct 32.8 L (34.0-46.0) % RDW 17.9 H (11.5-15.5) % Sodium 131 L (137-145) mmol/L Potassium 5.2 H (3.5-5.1) mmol/L Chloride 93 L (98-107) mmol/L BUN 32 H (7-17) mg/dL Creatinine 7.65 H* (0.52-1.04) mg/dL Calcium 6.3 L* (8.4-10.2) mg/dL Phosphorus 4.8 H (2.5-4.5) mg/dL Assessment and Plan Assessment: Worsening generalized numbness, improved Hyperkalemia, severe on admission, improved End stage renal disease on hemodialysis Congestive heart failure chronic systolic dysfunction year for of around 35-40% patient may be in mild acute exacerbation expected to improve with dialysis. Improved after dialysis Mild gastroenteritis with vomiting and diarrhea and mild abdominal pain, could be viral Recent parathyroidectomy symptoms for chronic hyperparathyroidism Hypertension, controlled on admission Asthma, not active tissue History of Chronic anemia History of anxiety and depression, not an active issue Plan: Continue monitoring electrolytes Nephrology consult, with recommendation for hemodialysis Continue monitoring for GI symptoms. C. diff is ordered Labs and medication were reviewed.. Continue same treatment. Continue with symptomatic treatment. Resume home medication. Monitor labs and vitals. DVT and GI prophylaxis. Further recommendations as per clinical course of the patient DVT prophylaxis: Subcutaneous heparin GI Prophylaxis: Pepcid PT/OT: Pending Prognosis is guarded
[2023-09-07] MEDS: CALCIUM CARBONATE 500 MG CHEWABLE PO SCH (16:39)
[2023-09-08] MEDS: DARBEPOETIN ALFA 40 MCG/0.4 ML SYRINGE SQ SCH (08:11)
[2023-09-08] MEDS ORDERED: IOPAMIDOL CONTRAST (ORAL USE) VIAL PO PRN (09:12)
--- NOTE | 2023-09-08 09:16 | P.PN ---
Subjective This is a pleasant 52 years old -[place] female with past medical history of end-stage renal disease on hemodialysis, hypertension, asthma, chronic anemia and cardiomyopathy nonischemic with ejection fraction 35-40%, anxiety and depression She was recently undergone parathyroid gland removal on 08/18/23 for a chronically elevated parathyroid hormone. Patient presents with worsening chronic tingling and numbness all over her body, she says she have it on and off over the years but that is been worse lately, she loosely related to her worsening of numbness to the period of after surgery. Chest complaining of from some postural dizziness when she stands up. She complains from pain all over her body without specification. But specifically she denies abdominal pain or chest pain. She is been complaining of from loose stool but she is on lactulose. Yesterday she has to lose bowel movement. No blood in stool He does not make urine She has some mild headache. No double vision. No weakness or numbness specific to 1 limb Get up and go test is normal Patient states she did not miss her hemodialysis She denies smoking alcohol or illicit drugs. Vitals are stable and patient is afebrile Labs reviewed chest unremarkable CBC except for mild anemia hemoglobin 10.4, BNP is unremarkable except for hyperkalemia with potassium 6.7 and 6.9, creatinine chronically elevated. Liver enzymes were unremarkable Glucose was fluctuating 82 down to 46 and 94 again PH is elevated to 7.5, pCO2 is low at 29, HCO3 is normal at 26 TSH is normal 0.6 Chest x-ray showing cardiomegaly with mild vascular congestion. Patient also has been coming from shortness of breath EKG shows sinus rhythm with first-degree AV block with a rate around [address]-T changes and QTC 486. She received cocktail for hyperkalemia. Potassium still elevated. 09/07/2023 Patient awake alert at baseline she status post dialysis yesterday and potassium came down to 5.2 today. Calcium on the low side 6.2, patient comes dose was increased by trade mark examiner team She still have vomiting today, no abdominal pain or tenderness, she has no abdominal bowel movements. C. diff is ordered patient does not have bowel movements this morning Yesterday KUB was unremarkable Chest x-ray today shows improvement from pulmonary congestion. We will keep monitoring for now given her GI symptoms and we will check labs tomorrow No need for further imaging since patient has no abdominal pain or tenderness but we will keep close monitoring 09/08/2023 Patient awake alert at baseline She has recurrent vomiting yesterday, almost everything she eats, but she feels better today, even she tried couple thinks in her breakfast and she couldn't tolerate that so far she does not want to eat too much. She does not want to change her diet to soft or fluid/liquid diet. She denies abdominal pain and her abdomen looks soft. She does not have bowel movement for 2 days after she had some loose stool in the emergency room when she got Kayexalate. She still getting hemodialysis today. We will monitor her electrolytes today. No other symptoms We will check CT of the abdomen and pelvis with oral contrast only. Possible discharge soon Objective - Vital Signs Vital signs: Vital Signs Temp 96.4 F L 09/08/23 08:18 Pulse 83 09/08/23 08:18 Resp 18 09/08/23 08:18 BP 125/73 09/08/23 08:18 Pulse Ox 93 L 09/08/23 04:00 FiO2 Intake & Output 09/07/23 09/08/23 09/08/23 18:59 06:59 18:59 Intake Total 120 Balance 120 Weight 53.3 kg Intake: Oral 120 Other: # Voids 0 0 # Bowel Movements 0 - Exam GENERAL: The patient is alert and oriented x3, not in any acute distress. Well developed, well nourished. HEENT: Pupils are round and equally reacting to light. EOMI. No scleral icterus. No conjunctival pallor. Normocephalic, atraumatic. No pharyngeal erythema. No thyromegaly. CARDIOVASCULAR: S1 and S2 present. No murmurs, rubs, or gallops. PULMONARY: Chest is clear to auscultation, no wheezing , no crackles. ABDOMEN: Soft, nontender, nondistended, normoactive bowel sounds. No palpable o rganomegaly. MUSCULOSKELETAL: No joint swelling or deformity. EXTREMITIES: No cyanosis, clubbing, or pedal edema. NEUROLOGICAL: Gross neurological examination did not reveal any focal deficits. SKIN: No rashes. no petechiae. - Labs CBC & Chem 7: 09/07/23 11:40 09/07/23 11:40 Labs: Abnormal Lab Results - Last 24 Hours (Table) 09/07/23 09/07/23 Range/Units 11:40 11:40 RBC 3.58 L (3.80-5.40) m/uL Hgb 10.3 L (11.4-16.0) gm/dL Hct 32.8 L (34.0-46.0) % RDW 17.9 H (11.5-15.5) % Sodium 131 L (137-145) mmol/L Potassium 5.2 H (3.5-5.1) mmol/L Chloride 93 L (98-107) mmol/L BUN 32 H (7-17) mg/dL Creatinine 7.65 H* (0.52-1.04) mg/dL Calcium 6.3 L* (8.4-10.2) mg/dL Phosphorus 4.8 H (2.5-4.5) mg/dL Assessment and Plan Assessment: Worsening generalized numbness, improved Hyperkalemia, severe on admission, improved End stage renal disease on hemodialysis Congestive heart failure chronic systolic dysfunction year for of around 35-40% patient may be in mild acute exacerbation expected to improve with dialysis. Improved after dialysis Mild gastroenteritis with vomiting and diarrhea and mild abdominal pain, could be viral Recent parathyroidectomy symptoms for chronic hyperparathyroidism Hypertension, controlled on admission Asthma, not active tissue History of Chronic anemia History of anxiety and depression, not an active issue Plan: Continue monitoring electrolytes Nephrology consult, with recommendation for hemodialysis Continue monitoring for GI symptoms. C. diff is ordered the patient has no diarrhea anymore. We'll order CT of the abdomen and pelvis without IV contrast Labs and medication were reviewed.. Continue same treatment. Continue with symptomatic treatment. Resume home medication. Monitor labs and vitals. DVT and GI prophylaxis. Further recommendations as per clinical course of the patient DVT prophylaxis: Subcutaneous heparin GI Prophylaxis: Pepcid PT/OT: Pending Prognosis is guarded
--- NOTE | 2023-09-08 11:14 | P.PN ---
Subjective Patient is seen for follow-up for end-stage renal disease. She is maintained on hemodialysis on a Wednesday schedule. Still complaining of numbness in the hands. Seen on hemodialysis Complaining of nausea and vomiting and is scheduled for CT of the abdomen today. Calcium supplements were increased yesterday. Labs are pending from today. Patient is being dialyzed on a higher calcium bath. Objective - Vital Signs Vital signs: Vital Signs Temp 96.4 F L 09/08/23 08:18 Pulse 83 09/08/23 08:18 Resp 18 09/08/23 08:18 BP 125/73 09/08/23 08:18 Pulse Ox 93 L 09/08/23 04:00 FiO2 Intake & Output 09/07/23 09/08/23 09/08/23 18:59 06:59 18:59 Intake Total 120 Balance 120 Weight 53.3 kg Intake: Oral 120 Other: # Voids 0 0 # Bowel Movements 0 - Exam Patient is awake, comfortable, no acute distress Alert oriented x 3 Examination of the heart S1 and S2 Examination of the lungs bilateral breath sounds are heard Abdomen is soft nontender Examination of lower extremities shows no evidence of edema DIGITAL ASSOCIATE exam grossly intact - Labs CBC & Chem 7: 09/07/23 11:40 09/07/23 11:40 Labs: Abnormal Lab Results - Last 24 Hours (Table) 09/07/23 09/07/23 Range/Units 11:40 11:40 RBC 3.58 L (3.80-5.40) m/uL Hgb 10.3 L (11.4-16.0) gm/dL Hct 32.8 L (34.0-46.0) % RDW 17.9 H (11.5-15.5) % Sodium 131 L (137-145) mmol/L Potassium 5.2 H (3.5-5.1) mmol/L Chloride 93 L (98-107) mmol/L BUN 32 H (7-17) mg/dL Creatinine 7.65 H* (0.52-1.04) mg/dL Calcium 6.3 L* (8.4-10.2) mg/dL Phosphorus 4.8 H (2.5-4.5) mg/dL Assessment and Plan Assessment: 1. End-stage renal disease on hemodialysis on a Wednesday schedule 2. Status post recent parathyroidectomy about 3 weeks ago 3. Hyperkalemia associated with end-stage renal disease 4. Hypocalcemia secondary to recent parathyroidectomy for severe mineral bone disorder maintained on calcitriol and calcium supplements. Plan: Maintain hemodialysis on Wednesday schedule. Continue with calcium supplementation along with the calcitriol. Increased dose of calcium supplementation to 1.5 g 4 times a day Repeat labs pending.
[2023-09-08 11:44] VITALS: RESP 16
[2023-09-08 12:44] VITALS: BP 141/80; PULSE 82; TEMP 98.2
--- NOTE | 2023-09-08 13:34 | CT ---
EXAMINATION TYPE: CT abdomen pelvis wo con DATE OF EXAM: 09/08/2023 COMPARISON: 06/05/2020 HISTORY: vomiting CT DLP: 298.5 mGycm Examination of the solid and hollow viscera is limited given the lack of contrast. FINDINGS: LUNG BASES: No evidence for nodule. No evidence for infiltrate. Moderate cardiomegaly. LIVER/GB: The gallbladder is unremarkable. No space-occupying hepatic lesion. PANCREAS: No pancreatic mass identified. No inflammatory process seen. SPLEEN: No evidence for splenomegaly. No intrasplenic lesions seen. ADRENALS: No adrenal nodules identified. No evidence for thickening. KIDNEYS: No evidence for renal mass. No nephrolithiasis. No hydronephrosis. BOWEL: Poor visualization of the appendix. No evidence of bowel obstruction. No inflammatory process. Contrast is seen within the colon. Lymph nodes: No evidence for adenopathy greater than 1 cm. Abdominal aorta: Atheromatous changes seen. No evidence for aneurysm. Genital organs: Left ovarian cystic mass with fluid level. Reflect proteinaceous or hemorrhagic cyst measuring 5.1 cm maximal dimension versus prior measurement of 4.5 cm. Smaller right ovarian cyst yoshi suring 1.2 cm. Uterus is unremarkable. Other: Anterior abdominal partially calcified mass was present previously and appears stable and is o f uncertain etiology and currently measures 4.9 x 3.1 cm versus 5.0 x 3.2 cm. IMPRESSION: 1. Contrast within the colon for obstructive change. 2. Stable partially calcified mass right lower quadrant anteriorly. 3. Hemorrhagic or proteinaceous cyst left ovary.
[2023-09-08 15:01] LABS: African American GFR (CKD) 15 (>60 ml/min/1.73 sqM); Anion Gap 9 mmol/L; Blood Urea Nitrogen 14 mg/dL (7-17); Calcium 8.5 mg/dL (8.4-10.2); Carbon Dioxide 32 mmol/L (22-30); Chloride 91 mmol/L (98-107); Glucose 139 mg/dL (74-99); Non-African American GFR(CKD) 13 (>60 ml/min/1.73 sqM); Sodium 132 mmol/L (137-145)
--- NOTE | 2023-09-08 21:51 | P.DS ---
Providers Date of admission: 09/05/23 19:57 Attending physician: Maty Bryson MD Consults: 09/05/23 19:55 Consult Physician Urgent Consulting Provider: Shubham Jensen Consult Reason/Comments: Hyperkalemia, dialysis Do you want consulting provider notified?: Already Contacted Primary care physician: [facility] Hospital Course: Diagnoses: Worsening generalized numbness, improved Hyperkalemia, and hypocalcemia, present on admission, improved' Mild gastroenteritis with vomiting and diarrhea and mild abdominal pain, could be viral. Improved. Left ovarian cyst, proteinaceous or hemorrhagic cyst measuring 5.1 cm maximal dimension versus prior measurement of 4.5 cm. Smaller right ovarian cyst measuring 1.2 cm anterior abdominal calcified mass which is also seen on the CAT scan in 2020 and now she's slightly smaller. Currently it is at 4.9 x 3.1 cm compared to mass in 2020 was 5.0 x 3.2 cm. End stage renal disease on hemodialysis Congestive heart failure chronic systolic dysfunction year for of around 35-40% patient may be in mild acute exacerbation expected to improve with dialysis. Improved after dialysis Recent parathyroidectomy symptoms for chronic hyperparathyroidism Hypertension, controlled on admission Asthma, not active tissue History of Chronic anemia History of anxiety and depression, not an active issue Hospital course: This is a pleasant 52 years old -[place] female with past medical history of end-stage renal disease on hemodialysis, hypertension, asthma, chronic anemia and cardiomyopathy nonischemic with ejection fraction 35-40%, anxiety and depression She was recently undergone parathyroid gland removal on 08/18/23 for a chronically elevated parathyroid hormone. Patient presents with worsening chronic tingling and numbness all over her body, she says she have it on and off over the years but that is been worse lately, on admission she was with hyperkalemia, hypocalcemia and elevated creatinine although she does not miss her hemodialysis. Patient divided by layboy tender and resumed hemodialysis over 3 days including today, eventually potassium came back to normal at 4.0 calcium normal 8.5 g home dose of calcium increased by layboy tender upon discharge and a new prescription is sent to the pharmacy Patient presents with mild gastroenteritis-like is of vomiting, mild abdominal pain and tenderness and diarrhea and constipation over the last 2 days. Patient was vomiting frequently for everything she eats. Today we had CT of the abdomen and pelvis showing no bowel obstruction or acute bowel problem. Her symptoms all resolved today, patient had no more vomiting and she tolerated breakfast and lunch with no problems. No abdominal pain or tenderness. Diarrhea has resolved. CT of the abdomen also showed left ovarian cystic mass suspicious for hemorrhagic cyst versus other was seen in CAT SCAN in 2020 but now is a slightly bigger. Patient is asymptomatic. Patient does not want to wait for coroner's juror and she prefers follow-up as an outpatient. Contact information for Dr. Glover as provided for the patient and she stated she will call and make her own appointment Postop patients with anterior abdominal calcified mass which is also seen on the CAT scan in 2020 and now she's slightly smaller. Currently it is at 4.9 x 3.1 cm compared to mass in 2020 was 5.0 x 3.2 cm. Patient other symptoms of tingling and numbness also resolved Patient states she is back to baseline and she can go home today. Patient was cleared for discharge by layboy tender Problems and management plan were discussed with the patient and he verbalized understanding and acceptance Patient was found stable and can be discharged home in guarded prognosis however he needs follow-up as an outpatient. Patient was instructed to follow up with PCP to many within one week and patient agrees As referred for outpatient coroner's juror Dr. Glover for her left ovarian cystic mass and she agrees to call and make appointment in 1 week Also patient instructed to follow up with general surgeon Dr. Fenton in 2 weeks for her anterior abdominal mass and she agrees as well Physical exam Gen: patient is a AAOx3, no distress CVS: S1-S2, RRR, no murmur Lungs: B/L CTA, no wheezing Abdomen: soft, no distention, no tenderness, positive bowel sounds Extremity: no leg edema or induration Time spent more than 35 minutes Patient Condition at Discharge: Serious Plan - Discharge Summary Discharge Rx Participant: No New Discharge Prescriptions: New Calcium Carbonate [Tums] 1,500 mg PO ACHS #200 tab Ondansetron [Zofran] 4 mg PO Q8HR PRN #20 tab PRN Reason: Nausea And Vomiting Continue Albuterol Sulfate [Proair Hfa] 2 puff INHALATION RT-Q6H PRN PRN Reason: Shortness Of Breath hydrALAZINE HCL [Apresoline] 100 mg PO TID Calcium Acetate [PhosLo] 2,668 mg PO TID-W/MEALS hydrOXYzine HCL [Atarax] 25 mg PO TID PRN PRN Reason: Anxiety Acetaminophen Tab [Tylenol] 1,000 mg PO Q6HR PRN PRN Reason: Pain Or Fever > 100.5 Ondansetron Odt [Zofran ODT] 4 mg PO Q12HR PRN PRN Reason: Nausea Docusate [Colace] 100 mg PO BID PRN PRN Reason: Constipation Cyclobenzaprine [Flexeril] 5 mg PO TID PRN #15 tablet PRN Reason: Spasms Darbepoetin Aamir [Aranesp] 40 mcg SQ DIRECTED Pantoprazole [Protonix] 40 mg PO DAILY #14 calcitrioL 4 mcg PO DAILY Calcium Acetate [PhosLo] 667 - 1,334 mg PO BID PRN PRN Reason: WITH SNACKS Sodium Zirconium Cyclosilicate [Lokelma] 10 gm PO DAILY PRN PRN Reason: high potassium HYDROcodone/APAP 7.5-325MG [[place] 7.5-325] 1 tab PO Q6HR PRN PRN Reason: Pain Lidocaine [Lidocaine Rectal Cream 5%] 1 applic TOPICAL DAILY PRN PRN Reason: PORT ACCESS Lactulose 10 gm PO DAILY PRN PRN Reason: Constipation NIFEdipine XL [Procardia XL] 90 mg PO BID carvediloL [Coreg*] 12.5 mg PO BID-W/MEALS Discontinued Calcium Carbonate [Tums] 1,000 mg PO ACHS Discharge Medication List Albuterol Sulfate [Proair Hfa] 2 puff INHALATION RT-Q6H PRN 01/22/16 [History] hydrALAZINE HCL [Apresoline] 100 mg PO TID 11/16/18 [History] Calcium Acetate [PhosLo] 2,668 mg PO TID-W/MEALS 05/01/20 [History] calcitrioL 4 mcg PO DAILY 10/29/21 [History] hydrOXYzine HCL [Atarax] 25 mg PO TID PRN 10/29/21 [History] Acetaminophen Tab [Tylenol] 1,000 mg PO Q6HR PRN 05/26/22 [History] Calcium Acetate [PhosLo] 667 - 1,334 mg PO BID PRN 05/26/22 [History] Ondansetron Odt [Zofran ODT] 4 mg PO Q12HR PRN 02/27/23 [History] Docusate [Colace] 100 mg PO BID PRN 03/23/23 [History] Sodium Zirconium Cyclosilicate [Lokelma] 10 gm PO DAILY PRN 03/23/23 [History] Cyclobenzaprine [Flexeril] 5 mg PO TID PRN #15 tablet 03/25/23 [Rx] Darbepoetin Aamir [Aranesp] 40 mcg SQ DIRECTED 06/01/23 [History] HYDROcodone/APAP 7.5-325MG [[place] 7.5-325] 1 tab PO Q6HR PRN 06/01/23 [History] Lidocaine [Lidocaine Rectal Cream 5%] 1 applic TOPICAL DAILY PRN 06/01/23 [History] Pantoprazole [Protonix] 40 mg PO DAILY #14 06/02/23 [Rx] Lactulose 10 gm PO DAILY PRN 09/05/23 [History] NIFEdipine XL [Procardia XL] 90 mg PO BID 09/05/23 [History] carvediloL [Coreg*] 12.5 mg PO BID-W/MEALS 09/05/23 [History] Calcium Carbonate [Tums] 1,500 mg PO ACHS #200 tab 09/08/23 [Rx] Ondansetron [Zofran] 4 mg PO Q8HR PRN #20 tab 09/08/23 [Rx] Follow up Appointment(s)/Referral(s): Carlyn Fenton MD [STAFF PHYSICIAN] - 2 Weeks (calcified abdominal mass) Carlyn Glover MD [STAFF PHYSICIAN] - 10 Days (Patient stated she will call and make the appointment) Karo Alicea MD [Primary Care Provider] - 1-2 days (Patient stated she will call and make the appointment.) Patient Instructions/Handouts: Hyperkalemia (DC), Hemodialysis (DC) Activity/Diet/Wound Care/Special Instructions: renal diet , with low potassium activity is as tolerated Discharge Disposition: HOME SELF-CARE
== END 2023-09-08 15:58 | disposition home or self-care (01) | DRG 640 ==
LOC: EC 17:48 → 3SCARD 19:57
PROVIDERS: ADMIT Internal Medicine; ATTEND Internal Medicine
PROC: 5A1D70Z Performance of Urinary Filtration, Intermittent, Less than 6 Hours Per Day (ICD-10-PCS; principal; 2023-09-06)
DX: E87.5 Hyperkalemia (principal); I50.23 Acute on chronic systolic (congestive) heart failure; N18.6 End stage renal disease; I42.8 Other cardiomyopathies; I13.2 Hypertensive heart and chronic kidney disease with heart failure and with stage 5 chronic kidney disease, or end stage renal disease; Q61.3 Polycystic kidney, unspecified; E21.3 Hyperparathyroidism, unspecified; D63.1 Anemia in chronic kidney disease; F32.A Depression, unspecified; J45.909 Unspecified asthma, uncomplicated; G89.29 Other chronic pain; M54.50 Low back pain, unspecified; E16.2 Hypoglycemia, unspecified; F41.9 Anxiety disorder, unspecified; M89.8X9 Other specified disorders of bone, unspecified site; A08.4 Viral intestinal infection, unspecified; K59.00 Constipation, unspecified; N83.202 Unspecified ovarian cyst, left side; N83.201 Unspecified ovarian cyst, right side; I44.0 Atrioventricular block, first degree; Z99.2 Dependence on renal dialysis; Z79.899 Other long term (current) drug therapy; Z87.891 Personal history of nicotine dependence; Z28.310 Unvaccinated for COVID-19; Z90.89 Acquired absence of other organs; Z88.1 Allergy status to other antibiotic agents; Z88.8 Allergy status to other drugs, medicaments and biological substances
CPT/HCPCS: 36415; 71045; 74018; 74176; 80048; 80053; 82803; 83735; 84100; 84132; 84443; 85025; 85027; 90935; 93005; 94640; 96365; 96366; 96368; 96375; 96376; 99291

== ENCOUNTER 2023-09-23 15:06 | Emergency (ER) | payer MEDICARE, OTHER ==
--- NOTE | 2023-09-23 17:39 | ED ---
General Adult HPI - General Source: patient, RN notes reviewed Mode of arrival: ambulatory Limitations: no limitations <Venita Wright - Last Filed: 09/27/23 15:03> <Sandra Baumann - Last Filed: 09/27/23 15:49> - General Chief complaint: Recheck/Abnormal Lab/Rx Stated complaint: Numbness and tingling in legs, mouth, and toes Time Seen by Provider: 09/23/23 16:51 - History of Present Illness Initial comments: 33-year-old female presents to the emergency department for evaluation of tingling in bilateral lower extremities and circumoral. Patient states that this has been going on for around 2 days. He saw her chrome tanner today who told her that she should come in because her calcium is low. She recently un derwent parathyroid removal. Patient undergoes hemodialysis on Wednesday, Wednesday, Wednesday. Last dialysis was yesterday. She denies chest pain, shortness of breath, nausea, vomiting. (Venita Wright) - Related Data Home Medications Medication Instructions Recorded Confirmed Albuterol Sulfate [Proair Hfa] 2 puff INHALATION RT-Q6H PRN 01/22/16 09/23/23 hydrALAZINE HCL [Apresoline] 100 mg PO TID 11/16/18 09/23/23 Calcium Acetate [PhosLo] 2,668 mg PO TID-W/MEALS 05/01/20 09/23/23 calcitrioL 6 mcg PO DAILY 10/29/21 09/23/23 hydrOXYzine HCL [Atarax] 25 mg PO TID PRN 10/29/21 09/23/23 Acetaminophen Tab [Tylenol] 1,000 mg PO Q6HR PRN 05/26/22 09/23/23 Calcium Acetate [PhosLo] 667 - 1,334 mg PO BID PRN 05/26/22 09/23/23 Docusate [Colace] 100 mg PO BID PRN 03/23/23 09/23/23 Sodium Zirconium Cyclosilicate 10 gm PO DAILY PRN 03/23/23 09/23/23 [Lokelma] Darbepoetin Aamir [Aranesp] 40 mcg SQ DIRECTED 06/01/23 09/23/23 HYDROcodone/APAP 7.5-325MG [[place] 1 tab PO Q6HR PRN 06/01/23 09/23/23 7.5-325] Lidocaine [Lidocaine Rectal Cream 1 applic TOPICAL DAILY PRN 06/01/23 09/23/23 5%] Lactulose 10 gm PO DAILY PRN 09/05/23 09/23/23 NIFEdipine XL [Procardia XL] 90 mg PO BID 09/05/23 09/23/23 carvediloL [Coreg*] 12.5 mg PO BID-W/MEALS 09/05/23 09/23/23 Calcium Carbonate [Tums] 1,500 mg PO ACHS PRN 09/23/23 09/23/23 Previous Rx's Medication Instructions Recorded Cyclobenzaprine [Flexeril] 5 mg PO TID PRN #15 tablet 03/25/23 Pantoprazole [Protonix] 40 mg PO DAILY #14 06/02/23 Ondansetron [Zofran] 4 mg PO Q8HR PRN #20 tab 09/08/23 Allergies Allergy/AdvReac Type Severity Reaction Status Date / Time vancomycin Allergy Anaphylaxis Verified 09/23/23 16:45 hydralazine AdvReac Rapid Verified 09/23/23 16:45 Heart Rate WHEN GIVEN THROUGH IV Review of Systems ROS Other: All systems not noted in ROS Statement are negative. <Venita Wright - Last Filed: 09/27/23 15:03> ROS Other: All systems not noted in ROS Statement are negative. <Sandra Baumann - Last Filed: 09/27/23 15:49> ROS Statement: Those systems with pertinent positive or pertinent negative responses have been documented in the HPI. 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 History of Any Multi-Drug Resistant Organisms: None Reported Past Surgical History: Heart Catheterization, Hernia Repair Additional Past Surgical History / Comment(s): 06/14/18 cardiac cath at [facility] to check coronary pressures, 11/15/09 Failed kidney transplant R pelvis, dialysis catheter in and out, current L upper arm AVG, supra pubic hernia repair, transvaginal mesh, wisdom teeth extraction with anesthesia, 2017 failed kidney t ransplant Past Anesthesia/Blood Transfusion Reactions: No Reported Reaction Additional Past Anesthesia/Blood Transfusion Reaction / Comment(s): Pt has received blood in past without reaction. Past Psychological History: Anxiety, Depression Smoking Status: Former smoker Past Alcohol Use History: None Reported Past Drug Use History: None Reported - Past Family History Father Family Medical History: No Reported History Additional Family Medical History / Comment(s): Father is healthy and is 62 yrs old. Mother Family Medical History: No Reported History Additional Family Medical History / Comment(s): Mother is healthy and is 60 yrs old. <Venita Wright - Last Filed: 09/27/23 15:03> General Exam Limitations: no limitations General appearance: alert, in no apparent distress Head exam: Present: atraumatic, normocephalic, normal inspection Eye exam: Present: normal appearance, PERRL, EOMI. Absent: scleral icterus, conjunctival injection, periorbital swelling ENT exam: Present: normal exam, mucous membranes moist Neck exam: Present: normal inspection. Absent: tenderness, meningismus, lymphadenopathy Respiratory exam: Present: normal lung sounds bilaterally. Absent: respiratory distress, wheezes, rales, rhonchi, stridor Cardiovascular Exam: Present: regular rate, normal rhythm, normal heart sounds. Absent: systolic murmur, diastolic murmur, rubs, gallop, clicks GI/Abdominal exam: Present: soft, normal bowel sounds. Absent: distended, tenderness, guarding, rebound, rigid Extremities exam: Present: normal inspection, full ROM, normal capillary refill. Absent: tenderness, pedal edema, joint swelling, calf tenderness Back exam: Present: normal inspection Neurological exam: Present: alert, oriented X3 Psychiatric exam: Present: normal affect, normal mood Skin exam: Present: warm, dry, intact, normal color. Absent: rash <Venita Wright - Last Filed: 09/27/23 15:03> Course Vital Signs 09/23/23 09/23/23 09/23/23 15:24 17:45 18:48 Temperature 98.0 F Pulse Rate 90 80 81 Respiratory 16 18 20 Rate Blood Pressure 123/84 129/88 138/97 O2 Sat by Pulse 97 96 100 Oximetry 09/23/23 22:39 Temperature 98.7 F Pulse Rate 82 Respiratory 18 Rate Blood Pressure 145/97 O2 Sat by Pulse 97 Oximetry Medical Decision Making - Lab Data Result diagrams: 09/23/23 17:41 09/23/23 17:41 <Venita Wright - Last Filed: 09/27/23 15:03> - Lab Data Result diagrams: 09/23/23 17:41 09/23/23 17:41 <Sandra Baumann - Last Filed: 09/27/23 15:49> - Medical Decision Making Was pt. sent in by a medical professional or institution (, PA, TELEPHONE ENGINEER, urgent care, hospital, or retirement...) When possible be specific @ -No Did you speak to anyone other than the patient for history (EMS, parent, family, police, friend...)? What history was obtained from this source @ -No Did you review nursing and triage notes (agree or disagree)? Why? @ -I reviewed and agree with nursing and triage notes Were old charts reviewed (outside hosp., previous admission, EMS record, old EKG, old radiological studies, urgent care reports/EKG's, retirement records)? Report findings @ -No old charts were reviewed Differential Diagnosis (chest pain, altered mental status, abdominal pain women, abdominal pain men, vaginal bleeding, weakness, fever, dyspnea, syncope, headache, dizziness, GI bleed, back pain, seizure, CVA, palpatations, mental health, musculoskeletal)? @ -Differential Weakness: Hypoglycemia, shock, sepsis, hyponatremia, anemia, infection, HI, ETOH, adverse medicine reaction, overdose, stroke, this is not meant to be an all-inclusive list. EKG interpreted by me (3pts min.). @ -EKG at 1713 shows sinus rhythm rate 74, ID 199, QRS 96, QT/QTc 456/484 X-rays interpreted by me (1pt min.). @ -None done CT interpreted by me (1pt min.). @ -None done U/S interpreted by me (1pt. min.). @ -None done What testing was considered but not performed or refused? (CT, X-rays, U/S, labs)? Why? @ -None What meds were considered but not given or refused? Why? @ -None Did you discuss the management of the patient with other professionals (professionals i.e. , PA, TELEPHONE ENGINEER, lab, RT, psych nurse, licensed master social worker, child abuse worker, teacher, first aid officer, rn field case manager)? Give summary @ -Patient was discussed with Dr. Cooper who preformed the parathyroidectomy who recommends 2 g IV calcium gluconate replacement Was smoking cessation discussed for >3mins.? @ -No Was critical care preformed (if so, how long)? @ -No Were there social determinants of health that impacted care today? How? (Homelessness, low income, unemployed, alcoholism, drug addiction, transportation, low edu. Level, literacy, decrease access to med. care, fci, rehab)? @ -No Was there de-escalation of care discussed even if they declined (Discuss DNR or withdrawal of care, Hospice)? DNR status @ -No What co-morbidities impacted this encounter? (DM, HTN, Smoking, COPD, CAD, Cancer, CVA, ARF, Chemo, Hep., AIDS, mental health diagnosis, sleep apnea, morbid obesity)? @ -Parathyroid disease, chronic kidney disease on hemodialysis Was patient admitted / discharged? Hospital course, mention meds given and route, prescriptions, significant lab abnormalities, going to OR and other pertinent info. @ -Discharge. Patient presented to the emergency department for evaluation of hypocalcemia. Patient states that she was sent in by her surgeon, Dr. Cooper. Laboratory studies were obtained.CBC essentially unremarkable, normal coagulation studies; CMP shows sodium 136, potassium 5.2, creatinine 8.83, patient has chronic kidney disease on dialysis last dialysis yesterday. Calcium 7.3, ionized calcium 3.[address] Cooper who is requesting 2 g IV calcium gluconate supplementation. He states that after this the patient can be discharged. She will follow with him in the office. Patient is understanding and agreeable with this. Strict return precautions discussed. Patient stable at time of discharge. Case discussed with Dr. Baumann. Undiagnosed new problem with uncertain prognosis? @ -No Drug Therapy requiring intensive monitoring for toxicity (Heparin, Nitro, Insulin, Cardizem)? @ -No Were any procedures done? @ -No Diagnosis/symptom? @ -Hypocalcemia, CKD Acute, or Chronic, or Acute on Chronic? @ -Acute Uncomplicated (without systemic symptoms) or Complicated (systemic symptoms)? @ -Uncomplicated Side effects of treatment? @ -No Exacerbation, Progression, or Severe Exacerbation? @ -No Poses a threat to life or bodily function? How? (Chest pain, USA, HI, pneumonia, PE, COPD, DKA, ARF, appy, cholecystitis, CVA, Diverticulitis, Homicidal, Suicidal, threat to staff... and all critical care pts) @ -No (Venita Wright) - Lab Data Lab Results 09/23/23 09/23/23 09/23/23 Range/Units 17:41 17:41 17:41 WBC 4.4 (3.8-10.6) k/uL RBC 4.20 (3.80-5.40) m/uL Hgb 12.2 (11.4-16.0) gm/dL Hct 38.5 (34.0-46.0) % MCV 91.7 (80.0-100.0) fL MCH 29.0 (25.0-35.0) pg MCHC 31.6 (31.0-37.0) g/dL RDW 17.7 H (11.5-15.5) % Plt Count 201 (150-450) k/uL MPV 8.9 Neutrophils % 56 % Lymphocytes % 23 % Monocytes % 9 % Eosinophils % 9 % Basophils % 1 % Neutrophils # 2.5 (1.3-7.7) k/uL Lymphocytes # 1.0 (1.0-4.8) k/uL Monocytes # 0.4 (0-1.0) k/uL Eosinophils # 0.4 (0-0.7) k/uL Basophils # 0.1 (0-0.2) k/uL Hypochromasia Slight Anisocytosis Slight PT 12.1 (10.0-12.5) sec INR 1.1 (<1.2) APTT 27.8 (22.0-30.0) sec Sodium 136 L (137-145) mmol/L Potassium 5.2 H (3.5-5.1) mmol/L Chloride 91 L (98-107) mmol/L Carbon Dioxide 32 H (22-30) mmol/L Anion Gap 13 mmol/L BUN 53 H (7-17) mg/dL Creatinine 8.83 H* (0.52-1.04) mg/dL Est GFR (CKD-EPI)AfAm 6 (>60 ml/min/1.73 sqM) Est GFR (CKD-EPI)NonAf 5 (>60 ml/min/1.73 sqM) Glucose 118 H (74-99) mg/dL Plasma Lactic Acid Johan (0.7-2.0) mmol/L Calcium 7.3 L (8.4-10.2) mg/dL Ionized Calcium Saravanan 3.6 L (4.5-5.3) mg/dL Magnesium 2.0 (1.6-2.3) mg/dL Total Bilirubin 0.6 (0.2-1.3) mg/dL AST 23 (14-36) U/L ALT 10 (4-34) U/L Alkaline Phosphatase 98 (38-126) U/L Troponin I (0.000-0.034) ng/mL Total Protein 8.5 H (6.3-8.2) g/dL Albumin 4.5 (3.5-5.0) g/dL 09/23/23 09/23/23 Range/Units 17:41 17:41 WBC (3.8-10.6) k/uL RBC (3.80-5.40) m/uL Hgb (11.4-16.0) gm/dL Hct (34.0-46.0) % MCV (80.0-100.0) fL MCH (25.0-35.0) pg MCHC (31.0-37.0) g/dL RDW (11.5-15.5) % Plt Count (150-450) k/uL MPV Neutrophils % % Lymphocytes % % Monocytes % % Eosinophils % % Basophils % % Neutrophils # (1.3-7.7) k/uL Lymphocytes # (1.0-4.8) k/uL Monocytes # (0-1.0) k/uL Eosinophils # (0-0.7) k/uL Basophils # (0-0.2) k/uL Hypochromasia Anisocytosis PT (10.0-12.5) sec INR (<1.2) APTT (22.0-30.0) sec Sodium (137-145) mmol/L Potassium (3.5-5.1) mmol/L Chloride (98-107) mmol/L Carbon Dioxide (22-30) mmol/L Anion Gap mmol/L BUN (7-17) mg/dL Creatinine (0.52-1.04) mg/dL Est GFR (CKD-EPI)AfAm (>60 ml/min/1.73 sqM) Est GFR (CKD-EPI)NonAf (>60 ml/min/1.73 sqM) Glucose (74-99) mg/dL Plasma Lactic Acid Johan 1.0 (0.7-2.0) mmol/L Calcium (8.4-10.2) mg/dL Ionized Calcium Saravanan (4.5-5.3) mg/dL Magnesium (1.6-2.3) mg/dL Total Bilirubin (0.2-1.3) mg/dL AST (14-36) U/L ALT (4-34) U/L Alkaline Phosphatase (38-126) U/L Troponin I 0.033 (0.000-0.034) ng/mL Total Protein (6.3-8.2) g/dL Albumin (3.5-5.0) g/dL Disposition Is patient prescribed a controlled substance at d/c from ED?: No <Venita Wright - Last Filed: 09/27/23 15:03> <Sandra Baumann - Last Filed: 09/27/23 15:49> Clinical Impression: Hypocalcemia Disposition: HOME SELF-CARE Condition: Stable Instructions (If sedation given, give patient instructions): Hypocalcemia (ED) Additional Instructions: Please follow-up with your chrome tanner. Take your medications as prescribed including the Tums and the Calcitrol. Return to the emergency department for new or worsening symptoms. Referrals: Karo Alicea MD [Primary Care Provider] - 1-2 days
[2023-09-23 17:52] LABS: Anisocytosis Slight; Basophils # (A) 0.1 k/uL (0-0.2); Basophils % (A) 1 %; Eosinophils # (A) 0.4 k/uL (0-0.7); Eosinophils % (A) 9 %; HCT 38.5 % (34.0-46.0); HGB 12.2 gm/dL (11.4-16.0); Hypochromasia Slight; Lymphocytes % (A) 23 %; MCHC 31.6 g/dL (31.0-37.0); MCV 91.7 fL (80.0-100.0); Mean Platelet Volume 8.9; Monocytes # (A) 0.4 k/uL (0-1.0); Monocytes % (A) 9 %; Neutrophils # (A) 2.5 k/uL (1.3-7.7); Neutrophils % (A) 56 %; Platelet Count 201 k/uL (150-450); RDW 17.7 % (11.5-15.5); WBC 4.4 k/uL (3.8-10.6)
[2023-09-23 18:00] LABS: INR 1.1 (<1.2); Ionized Calcium 3.6 mg/dL (4.5-5.3); Partial Thromboplastin Time 27.8 sec (22.0-30.0); Prothrombin Time 12.1 sec (10.0-12.5)
[2023-09-23 18:09] LABS: ALT 10 U/L (4-34); AST 23 U/L (14-36); African American GFR (CKD) 6 (>60 ml/min/1.73 sqM); Albumin 4.5 g/dL (3.5-5.0); Alkaline Phosphatase 98 U/L (38-126); Anion Gap 13 mmol/L; Blood Urea Nitrogen 53 mg/dL (7-17); Calcium 7.3 mg/dL (8.4-10.2); Carbon Dioxide 32 mmol/L (22-30); Chloride 91 mmol/L (98-107); Glucose 118 mg/dL (74-99); Non-African American GFR(CKD) 5 (>60 ml/min/1.73 sqM); Potassium 5.2 mmol/L (3.5-5.1); Sodium 136 mmol/L (137-145); Total Bilirubin 0.6 mg/dL (0.2-1.3); Total Protein 8.5 g/dL (6.3-8.2)
[2023-09-23] MEDS: MORPHINE SULFATE 4 MG/ML SYRINGE IVP STA (18:46)
[2023-09-23] MEDS: ONDANSETRON 4 MG/2 ML VIAL IVP STA (21:26)
[2023-09-23] MEDS: CALCIUM GLUCONATE IN NACL 2 GM in SALINE 1 100ML.BAG IVPB ONE (21:27)
[2023-09-23 23:04] VITALS: BP 145/97; PULSE 82; RESP 18; TEMP 98.7
== END 2023-09-23 22:41 | disposition home or self-care (01) ==
LOC: EC 15:06
DX: E83.51 Hypocalcemia (principal); I44.0 Atrioventricular block, first degree; I13.2 Hypertensive heart and chronic kidney disease with heart failure and with stage 5 chronic kidney disease, or end stage renal disease; I50.9 Heart failure, unspecified; J45.909 Unspecified asthma, uncomplicated; N18.6 End stage renal disease; Z86.59 Personal history of other mental and behavioral disorders; Z99.2 Dependence on renal dialysis; Z87.891 Personal history of nicotine dependence; Z88.8 Allergy status to other drugs, medicaments and biological substances; Z88.1 Allergy status to other antibiotic agents
CPT/HCPCS: 36415; 93005; 80053; 82330; 83605; 83735; 84484; 85025; 85610; 85730; 99284; 96365; 96375 ×2; J2270; J2405; J0613

== ENCOUNTER 2023-09-27 11:12 | Emergency (ER) | payer MEDICARE, OTHER ==
[2023-09-27 11:38] VITALS: RESP 18; TEMP 98.5
--- NOTE | 2023-09-27 11:59 | ED ---
Chest Pain HPI - General Chief Complaint: Chest Pain Stated Complaint: Infusion-sent by Time Seen by Provider: 09/27/23 11:17 Source: patient, RN notes reviewed, old records reviewed Mode of arrival: ambulatory Limitations: no limitations - History of Present Illness Initial Comments: 33-year-old female presents emergency department with chief complaint of chest pain, numbness and tingling. Patient states that she had dialysis this morning developed chest pain after. She has a history of cardiac issues, chest pain she states she also was sent in by her advisory software engineer because her calcium is extremely low. Patient states she has had prior parathyroid removal in which she has had calcium fusions and takes supplements daily. Patient states that dialysis went well today. Patient denies any shortness of breath. - Related Data Home Medications Medication Instructions Recorded Confirmed Albuterol Sulfate [Proair Hfa] 2 puff INHALATION RT-Q6H PRN 01/22/16 09/23/23 hydrALAZINE HCL [Apresoline] 100 mg PO TID 11/16/18 09/23/23 Calcium Acetate [PhosLo] 2,668 mg PO TID-W/MEALS 05/01/20 09/23/23 calcitrioL 6 mcg PO DAILY 10/29/21 09/23/23 hydrOXYzine HCL [Atarax] 25 mg PO TID PRN 10/29/21 09/23/23 Acetaminophen Tab [Tylenol] 1,000 mg PO Q6HR PRN 05/26/22 09/23/23 Calcium Acetate [PhosLo] 667 - 1,334 mg PO BID PRN 05/26/22 09/23/23 Docusate [Colace] 100 mg PO BID PRN 03/23/23 09/23/23 Sodium Zirconium Cyclosilicate 10 gm PO DAILY PRN 03/23/23 09/23/23 [Lokelma] Darbepoetin Aamir [Aranesp] 40 mcg SQ DIRECTED 06/01/23 09/23/23 HYDROcodone/APAP 7.5-325MG [[place] 1 tab PO Q6HR PRN 06/01/23 09/23/23 7.5-325] Lidocaine [Lidocaine Rectal Cream 1 applic TOPICAL DAILY PRN 06/01/23 09/23/23 5%] Lactulose 10 gm PO DAILY PRN 09/05/23 09/23/23 NIFEdipine XL [Procardia XL] 90 mg PO BID 09/05/23 09/23/23 carvediloL [Coreg*] 12.5 mg PO BID-W/MEALS 09/05/23 09/23/23 Calcium Carbonate [Tums] 1,500 mg PO ACHS PRN 09/23/23 09/23/23 Previous Rx's Medication Instructions Recorded Cyclobenzaprine [Flexeril] 5 mg PO TID PRN #15 tablet 03/25/23 Pantoprazole [Protonix] 40 mg PO DAILY #14 06/02/23 Ondansetron [Zofran] 4 mg PO Q8HR PRN #20 tab 09/08/23 Allergies Allergy/AdvReac Type Severity Reaction Status Date / Time vancomycin Allergy Anaphylaxis Verified 09/23/23 16:45 hydralazine AdvReac Rapid Verified 09/23/23 16:45 Heart Rate WHEN GIVEN THROUGH IV Review of Systems ROS Statement: Those systems with pertinent positive or pertinent negative responses have been documented in the HPI. ROS Other: All systems not noted in ROS Statement are negative. 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 History of Any Multi-Drug Resistant Organisms: None Reported Past Surgical History: Heart Catheterization, Hernia Repair Additional Past Surgical History / Comment(s): 06/14/18 cardiac cath at [facility] to check coronary pressures, 11/15/09 Failed kidney transplant R pelvis, dialysis catheter in and out, current L upper arm AVG, supra pubic hernia repair, transvaginal mesh, wisdom teeth extraction with anesthesia, 2016 failed kidney transplant Past Anesthesia/Blood Transfusion Reactions: No Reported Reaction Additional Past Anesthesia/Blood Transfusion Reaction / Comment(s): Pt has received blood in past without reaction. Past Psychological History: Anxiety, Depression Smoking Status: Former smoker Past Alcohol Use History: None Reported Past Drug Use History: None Reported - Past Family History Father Family Medical History: No Reported History Additional Family Medical History / Comment(s): Father is healthy and is 62 yrs old. Mother Family Medical History: No Reported History Additional Family Medical History / Comment(s): Mother is healthy and is 60 yrs old. General Exam Limitations: no limitations General appearance: alert, in no apparent distress Head exam: Present: atraumatic, normocephalic, normal inspection Eye exam: Present: normal appearance, PERRL, EOMI. Absent: scleral icterus, conjunctival injection, periorbital swelling ENT exam: Present: normal exam, mucous membranes moist Neck exam: Present: normal inspection. Absent: tenderness, meningismus, lymphadenopathy Respiratory exam: Present: normal lung sounds bilaterally. Absent: respiratory distress, wheezes, rales, rhonchi, stridor Cardiovascular Exam: Present: regular rate, normal rhythm, normal heart sounds. Absent: systolic murmur, diastolic murmur, rubs, gallop, clicks GI/Abdominal exam: Present: soft, normal bowel sounds. Absent: distended, tenderness, guarding, rebound, rigid Course Vital Signs 09/27/23 09/27/23 09/27/23 11:31 11:50 12:43 Temperature 98.5 F Pulse Rate 85 85 Pulse Rate [ 85 Color Straining Bag Washer ] Respiratory 18 18 Rate Blood Pressure 110/73 130/98 O2 Sat by Pulse 98 100 Oximetry 09/27/23 13:13 Temperature Pulse Rate 87 Pulse Rate [ Color Straining Bag Washer ] Respiratory 18 Rate Blood Pressure O2 Sat by Pulse 100 Oximetry Chest Pain MDM - MDM Was pt. sent in by a medical professional or institution (, PA, CONCRETE STONE FABRICATING SUPERVISOR, urgent care, hospital, or penitentiary...) When possible be specific @ -Contact Finger Assembler Did you speak to anyone other than the patient for history (EMS, parent, family, police, friend...)? What history was obtained from this source @ -No Did you review nursing and triage notes (agree or disagree)? Why? @ -I reviewed and agree with nursing and triage notes Were old charts reviewed (outside hosp., previous admission, EMS record, old EKG, old radiological studies, urgent care reports/EKG's, penitentiary records)? Report findings @ -No old charts were reviewed Differential Diagnosis (chest pain, altered mental status, abdominal pain women, abdominal pain men, vaginal bleeding, weakness, fever, dyspnea, syncope, headache, dizziness, GI bleed, back pain, seizure, CVA, palpatations, mental health, musculoskeletal)? @ -Differential Chest Pain: Stable Angina, Unstable Angina, STEMI, NSTEMI Aortic Dissection, Pneumothorax, Musculoskeletal, Esophageal Spasm GERD, Cholecystitis, Pancreatitis, Zoster, this is not meant to be an all-inclusive list. EKG interpreted by me (3pts min.). @ -As above X-rays interpreted by me (1pt min.). @ -[Chest x-ray shows no acute cardiopulmonary process, cardiomegaly noted CT interpreted by me (1pt min.). @ -None done U/S interpreted by me (1pt. min.). @ -None done What testing was considered but not performed or refused? (CT, X-rays, U/S, labs)? Why? @ -None What meds were considered but not given or refused? Why? @ -None Did you discuss the management of the patient with other professionals (professionals i.e. , PA, CONCRETE STONE FABRICATING SUPERVISOR, lab, RT, psych nurse, licensed social worker, certified nurse practitioner, teacher, air intelligence officer, supportive employment case manager)? Give summary @ -[Dr. Thompson regarding calcium level Was smoking cessation discussed for >3mins.? @ -No Was critical care preformed (if so, how long)? @ -No Were there social determinants of health that impacted care today? How? (Homelessness, low income, unemployed, alcoholism, drug addiction, transportation, low edu. Level, literacy, decrease access to med. care, half-way, rehab)? @ -No Was there de-escalation of care discussed even if they declined (Discuss DNR or withdrawal of care, Hospice)? DNR status @ -No What co-morbidities impacted this encounter? (DM, HTN, Smoking, COPD, CAD, Cancer, CVA, ARF, Chemo, Hep., AIDS, mental health diagnosis, sleep apnea, morbid obesity)? @ -Renal disease, parathyroid surgery, hypocalcemia Was patient admitted / discharged? Hospital course, mention meds given and route, prescriptions, significant lab abnormalities, going to OR and other pertinent info. @ -[Charge patient had a visible chest pain patient has no acute EKG changes, troponin is negative patient's advisory software engineer updated on results including calcium in which he was still recommended 1 g of calcium gluconate. Patient will be discharged in stable condition return pressure discussed. Undiagnosed new problem with uncertain prognosis? @ -No Drug Therapy requiring intensive monitoring for toxicity (Heparin, Nitro, Insulin, Cardizem)? @ -No Were any procedures done? @ -No Diagnosis/symptom? @ -Hypocalcemia Acute, or Chronic, or Acute on Chronic? @ -Acute Uncomplicated (without systemic symptoms) or Complicated (systemic symptoms)? @ -Complicated Side effects of treatment? @ -No Exacerbation, Progression, or Severe Exacerbation? @ -No Poses a threat to life or bodily function? How? (Chest pain, USA, [place], pneumonia, PE, COPD, DKA, ARF, appy, cholecystitis, CVA, Diverticulitis, Homicidal, Suicidal, threat to staff... and all critical care pts) @ -No Disposition Clinical Impression: Hypocalcemia, Atypical chest pain Disposition: HOME SELF-CARE Condition: Stable Instructions (If sedation given, give patient instructions): Chest Pain (ED) Additional Instructions: Please return to the Emergency Department if symptoms worsen or any other concerns. Is patient prescribed a controlled substance at d/c from ED?: No Referrals: Karo Alicea MD [Primary Care Provider] - 1-2 days Time of Disposition: 13:48
[2023-09-27 12:04] LABS: Anisocytosis Slight; Basophils # (A) 0.1 k/uL (0-0.2); Basophils % (A) 1 %; Eosinophils # (A) 0.5 k/uL (0-0.7); Eosinophils % (A) 9 %; HGB 12.7 gm/dL (11.4-16.0); Lymphocytes # (A) 0.8 k/uL (1.0-4.8); Lymphocytes % (A) 14 %; MCH 28.6 pg (25.0-35.0); MCHC 31.8 g/dL (31.0-37.0); MCV 90.1 fL (80.0-100.0); Mean Platelet Volume 8.3; Monocytes # (A) 0.3 k/uL (0-1.0); Monocytes % (A) 5 %; Neutrophils # (A) 4.1 k/uL (1.3-7.7); Neutrophils % (A) 70 %; Platelet Count 248 k/uL (150-450); RBC 4.44 m/uL (3.80-5.40); RDW 17.3 % (11.5-15.5); WBC 5.9 k/uL (3.8-10.6)
[2023-09-27 12:16] LABS: Partial Thromboplastin Time 26.3 sec (22.0-30.0); Prothrombin Time 11.1 sec (10.0-12.5)
[2023-09-27 12:31] LABS: ALT 12 U/L (4-34); AST 29 U/L (14-36); African American GFR (CKD) 11 (>60 ml/min/1.73 sqM); Alkaline Phosphatase 145 U/L (38-126); Anion Gap 12 mmol/L; Blood Urea Nitrogen 26 mg/dL (7-17); Calcium 8.9 mg/dL (8.4-10.2); Carbon Dioxide 37 mmol/L (22-30); Chloride 92 mmol/L (98-107); Glucose 102 mg/dL (74-99); Magnesium 2.1 mg/dL (1.6-2.3); Non-African American GFR(CKD) 9 (>60 ml/min/1.73 sqM); Potassium 4.1 mmol/L (3.5-5.1); Sodium 141 mmol/L (137-145); Total Bilirubin 0.8 mg/dL (0.2-1.3); Total Protein 9.7 g/dL (6.3-8.2)
[2023-09-27] MEDS: MORPHINE SULFATE 4 MG/ML SYRINGE IVP STA (12:42)
--- NOTE | 2023-09-27 12:49 | XR ---
EXAMINATION TYPE: XR chest 2V DATE OF EXAM: 09/27/2023 COMPARISON: 09/07/2023 INDICATION: Chest pain TECHNIQUE: Frontal and lateral views of the chest are obtained. FINDINGS: The heart size is enlarged. The pulmonary vasculature is normal. The lungs are clear. Multiple surgical clips are in the external jugular notch and within the left p roximal arm IMPRESSION: 1. No acute pulmonary process. 2. Cardiomegaly
[2023-09-27] MEDS: CALCIUM CHLORIDE 1 GM in SODIUM CHLORIDE 0.9% 50 ML IVPB ONE (13:44)
[2023-09-27] MEDS: CALCIUM GLUCONATE IN NACL 1 GM in SALINE 1 100ML.BAG IVPB ONE (13:54)
[2023-09-27 15:12] VITALS: BP 132/93; PULSE 83
== END 2023-09-27 15:04 | disposition home or self-care (01) ==
LOC: EC 11:12
DX: E83.51 Hypocalcemia (principal); R07.89 Other chest pain; I13.2 Hypertensive heart and chronic kidney disease with heart failure and with stage 5 chronic kidney disease, or end stage renal disease; I50.9 Heart failure, unspecified; N18.6 End stage renal disease; J45.909 Unspecified asthma, uncomplicated; Z86.59 Personal history of other mental and behavioral disorders; Z87.891 Personal history of nicotine dependence; Z99.2 Dependence on renal dialysis; Z88.8 Allergy status to other drugs, medicaments and biological substances; Z88.1 Allergy status to other antibiotic agents
CPT/HCPCS: 36415; 93005; 80053; 82330; 83735; 84484; 85025; 85610; 85730; 71046; 96365; 96375; 99285; J2270; J0613

== ENCOUNTER 2023-11-28 11:08 | Inpatient (IN) | payer MEDICARE, BC, OTHER ==
--- NOTE | 2023-11-28 12:26 | ED ---
General Adult HPI - General Chief complaint: Dizziness Stated complaint: dizziness,chest/leg pain Time Seen by Provider: 11/28/23 12:15 Source: patient, RN notes reviewed, old records reviewed Mode of arrival: ambulatory Limitations: no limitations - History of Present Illness Initial comments: Patient is a 33-year-old female with past medical history remarkable for cardiomyopathy, ESRD on hemodialysis, asthma, hypertension who presents [facility] complaining of leg cramping, dizziness, as well as nonspecific chest discomfort. States he is a very similar to episode she has when she is hyperkalemic or requires dialysis. Has not missed any rounds of dialysis having last received on Wednesday. Typically goes Wednesday and Wednesday. 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 García. Patient has been throwing up this morning as well. Has had a few episodes of nonbilious nonbloody emesis. Denies abdominal pain. Denies shortness of breath. Does endorse some lightheadedness after episodes of emesis. Has no other acute complaints at this time. Presents for further evaluation.Patient describes her chest discomfort as a burning sensation. Located centrally. No radiation. - Related Data Home Medications Medication Instructions Recorded Confirmed Albuterol Sulfate [Proair Hfa] 2 puff INHALATION RT-Q6H PRN 01/22/16 11/28/23 hydrALAZINE HCL [Apresoline] 100 mg PO TID 11/16/18 11/28/23 Calcium Acetate [PhosLo] 2,668 mg PO TID-W/MEALS 05/01/20 11/28/23 calcitrioL 6 mcg PO DAILY 10/29/21 11/28/23 hydrOXYzine HCL [Atarax] 25 mg PO TID PRN 10/29/21 11/28/23 Acetaminophen Tab [Tylenol] 1,000 mg PO Q6HR PRN 05/26/22 11/28/23 Calcium Acetate [PhosLo] 667 - 1,334 mg PO BID PRN 05/26/22 11/28/23 Docusate [Colace] 100 mg PO BID PRN 03/23/23 11/28/23 Sodium Zirconium Cyclosilicate 10 gm PO DAILY PRN 03/23/23 11/28/23 [Lokelma] Darbepoetin Aamir [Aranesp] 40 mcg SQ DIRECTED 06/01/23 11/28/23 Lactulose 10 gm PO DAILY PRN 09/05/23 11/28/23 carvediloL [Coreg*] 12.5 mg PO BID-W/MEALS 09/05/23 11/28/23 Calcium Carbonate [Tums] 1,500 mg PO ACHS PRN 09/23/23 11/28/23 NIFEdipine XL [Procardia Xl] 90 mg PO BID 11/28/23 11/28/23 Previous Rx's Medication Instructions Recorded Ondansetron [Zofran] 4 mg PO Q8HR PRN #20 tab 09/08/23 Allergies Allergy/AdvReac Type Severity Reaction Status Date / Time vancomycin Allergy Anaphylaxis Verified 11/28/23 15:07 hydralazine AdvReac Rapid Verified 11/28/23 15:07 Heart Rate WHEN GIVEN THROUGH IV Review of Systems ROS Statement: Those systems with pertinent positive or pertinent negative responses have been documented in the HPI. Review of Systems: CONST: Denies fever EYES: Denies blurry vision ENT: Denies nasal congestion C/V: Endorses nonspecific chest discomfort. RESP: Denies shortness of breath GI: Denies abdominal pain : Denies dysuria SKIN: Denies rash. MSK: Endorses leg cramping NEURO: Denies headache ROS Other: All systems not noted in ROS Statement are negative. 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 History of Any Multi-Drug Resistant Organisms: None Reported Past Surgical History: Heart Catheterization, Hernia Repair Additional Past Surgical History / Comment(s): 06/14/18 cardiac cath at [facility] to check coronary pressures, 11/15/09 Failed kidney transplant R pelvis, dialysis catheter in and out, current L upper arm AVG, supra pubic hernia repair, transvaginal mesh, wisdom teeth extraction with anesthesia, 2016 failed kidney transplant Past Anesthesia/Blood Transfusion Reactions: No Reported Reaction Additional Past Anesthesia/Blood Transfusion Reaction / Comment(s): Pt has received blood in past without reaction. Past Psychological History: Anxiety, Depression Smoking Status: Former smoker Past Alcohol Use History: None Reported Past Drug Use History: None Reported - Past Family History Father Family Medical History: No Reported History Additional Family Medical History / Comment(s): Father is healthy and is 62 yrs old. Mother Family Medical History: No Reported History Additional Family Medical History / Comment(s): Mother is healthy and is 60 yrs old. General Exam - General Exam Comments Initial Comments: General: Appears in no acute distress. HEAD: Normal with no signs of head trauma. EYES: PERRLA, EOMI, conjunctiva normal, no discharge. ENT: Hearing grossly intact, normal oropharynx. Mildly dry mucous membranes. RESPIRATORY: Clear breath sounds bilaterally. No wheezes, rales, or rhonchi. C/V: Regular rate and rhythm. S1 and S2 auscultated, mild lower extremity symmetrical pitting edema, peripheral pulses 2+ and intact throughout ABD: Abd is soft, nontender, nondistended EXT: Normal range of motion, no obvious deformity SKIN: No rashes or lesions observed on exposed skin. NEURO: Alert and oriented x 4. Limitations: no limitations Course Vital Signs 11/28/23 11/28/23 11/28/23 11:14 15:20 15:31 Temperature 97.9 F Pulse Rate 88 74 82 Respiratory 18 Rate Blood Pressure 102/64 O2 Sat by Pulse 99 Oximetry Medical Decision Making - Medical Decision Making Was pt. sent in by a medical professional or institution (KAROLYN Moore, ICU CLERK, urgent care, hospital, or intermediate...) When possible be specific @ -No Did you speak to anyone other than the patient for history (EMS, parent, family, police, friend...)? What history was obtained from this source @ -No Did you review nursing and triage notes (agree or disagree)? Why? @ -I reviewed and agree with nursing and triage notes Were old charts reviewed (outside hosp., previous admission, EMS record, old EKG, old radiological studies, urgent care reports/EKG's, intermediate records)? Report findings @ -Old charts reviewed Differential Diagnosis (chest pain, altered mental status, abdominal pain women, abdominal pain men, vaginal bleeding, weakness, fever, dyspnea, syncope, headache, dizziness, GI bleed, back pain, seizure, CVA, palpatations, mental health, musculoskeletal)? @ -Electrolyte abnormality, dehydration, ACS, need for dialysis. This list is not all inclusive. EKG interpreted by me (3pts min.). @ -As above X-rays interpreted by me (1pt min.). @ -Chest x-ray reveals no obvious acute cardiopulmonary process. CT interpreted by me (1pt min.). @ -None done U/S interpreted by me (1pt. min.). @ -None done What testing was considered but not performed or refused? (CT, X-rays, U/S, labs)? Why? @ -None What meds were considered but not given or refused? Why? @ -None Did you discuss the management of the patient with other professionals (pr ofessionals i.e. , PA, ICU CLERK, lab, RT, psych nurse, social security specialist, management retail intern, teacher, transit authority police officer, case specialist)? Give summary @ -No Was smoking cessation discussed for >3mins.? @ -No Was critical care preformed (if so, how long)? @ -No Were there social determinants of health that impacted care today? How? (Homelessness, low income, unemployed, alcoholism, drug addiction, transportation, low edu. Level, literacy, decrease access to med. care, [facility], rehab)? @ -No Was there de-escalation of care discussed even if they declined (Discuss DNR or withdrawal of care, Hospice)? DNR status @ -No What co-morbidities impacted this encounter? (DM, HTN, Smoking, COPD, CAD, Cancer, CVA, ARF, Chemo, Hep., AIDS, mental health diagnosis, sleep apnea, morbid obesity)? @ -ESRD on hemodialysis, CHF Was patient admitted / discharged? Hospital course, mention meds given and route, prescriptions, significant lab abnormalities, going to OR and other pertinent info. @ -Based on the patient's presentation and physical exam, presents with complaints that are similar when she requires dialysis for hyperkalemia. Is regular visitor to our emergency department. Will obtain general workup. She was in agreement this plan. Vital signs are currently within acceptable limits. Patient has been experiencing emesis this morning and therefore we will screen her for infection as well. She was in agreement this plan. Patient will be symptomatically treated with a extremely small fluid bolus due to emesis and apparent mildly clinically dehydrated. She will also receive IV Zofran, Protonix, Toradol. Patient was in agreement with this plan.EKG shows findings consistent with chronic EKG findings. Slight T wave peaking. She does have a history of this. We will wait labs prior to treating for hyperkalemia. Chest x-ray revealed no obvious acute cardiopulmonary process. Patient's laboratory studies returned remarkable for chronic anemia which is stable, as well as elevated BUN and creatinine in setting of ESRD on hemodialysis. Troponin is minimally elevated at 0.046 which is chronic for the patient. Patient is hyperkalemic at 5.7. She was administered hyperkalemia cocktail including Lokelma, albuterol, insulin, calcium. Patient was given an aspirin for the elevated troponin however this is chronic. We will trend. Likely secondary to her CKD. On reevaluation, patient is still feeling nauseous. She has had poor oral intake over the last day. I recommended admission for this but also to have nephrology evaluate patient for dialysis likely tomorrow. She was in agreement this plan. I did consult nephrology Dr. Jensen, who I spoke with on the phone and was in agreement the plan. He will arrange for dialysis tomorrow. Was in agreement with hyperkalemia cocktail. I spoke with the admitting physician, Dr. Bryson who accepted the admission. Undiagnosed new problem with uncertain prognosis? @ -No Drug Therapy requiring intensive monitoring for toxicity (Heparin, Nitro, I nsulin, Cardizem)? @ -No Were any procedures done? @ -No Diagnosis/symptom? @ -Nausea and vomiting, muscle spasms, hyperkalemia in the setting of ESRD on hemodialysis Acute, or Chronic, or Acute on Chronic? @ -Acute Uncomplicated (without systemic symptoms) or Complicated (systemic symptoms)? @ -Complicated Side effects of treatment? @ -None Exacerbation, Progression, or Severe Exacerbation] @ -Yes Poses a threat to life or bodily function? @ -No - Lab Data Result diagrams: 11/28/23 12:30 11/28/23 14:00 Lab Results 11/28/23 11/28/23 11/28/23 Range/Units 12:30 12:30 12:30 WBC 7.5 (3.8-10.6) k/uL RBC 3.11 L (3.80-5.40) m/uL Hgb 9.1 L D (11.4-16.0) gm/dL Hct 28.2 L (34.0-46.0) % MCV 90.5 (80.0-100.0) fL MCH 29.1 (25.0-35.0) pg MCHC 32.1 (31.0-37.0) g/dL RDW 18.3 H (11.5-15.5) % Plt Count 223 (150-450) k/uL MPV 8.5 Neutrophils % 67 % Lymphocytes % 16 % Monocytes % 5 % Eosinophils % 9 % Basophils % 1 % Neutrophils # 5.0 (1.3-7.7) k/uL Lymphocytes # 1.2 (1.0-4.8) k/uL Monocytes # 0.4 (0-1.0) k/uL Eosinophils # 0.7 (0-0.7) k/uL Basophils # 0.1 (0-0.2) k/uL Anisocytosis Slight PT 11.8 (10.0-12.5) sec INR 1.1 (<1.2) APTT 27.3 (22.0-30.0) sec Sodium (137-145) mmol/L Potassium (3.5-5.1) mmol/L Chloride (98-107) mmol/L Carbon Dioxide (22-30) mmol/L Anion Gap mmol/L BUN (7-17) mg/dL Creatinine (0.52-1.04) mg/dL Est GFR (CKD-EPI)AfAm (>60 ml/min/1.73 sqM) Est GFR (CKD-EPI)NonAf (>60 ml/min/1.73 sqM) Glucose (74-99) mg/dL Plasma Lactic Acid Johan 0.7 (0.7-2.0) mmol/L Calcium (8.4-10.2) mg/dL Total Bilirubin (0.2-1.3) mg/dL AST (14-36) U/L ALT (4-34) U/L Alkaline Phosphatase (38-126) U/L Troponin I (0.000-0.034) ng/mL Total Protein (6.3-8.2) g/dL Albumin (3.5-5.0) g/dL Amylase (30-110) U/L Lipase (23-300) U/L Influenza Type A (PCR) (Not Detectd) Influenza Type B (PCR) (Not Detectd) RSV (PCR) (Not Detectd) SARS-CoV-2 (PCR) (Not Detectd) 11/28/23 11/28/23 11/28/23 Range/Units 12:50 14:00 14:00 WBC (3.8-10.6) k/uL RBC (3.80-5.40) m/uL Hgb (11.4-16.0) gm/dL Hct (34.0-46.0) % MCV (80.0-100.0) fL MCH (25.0-35.0) pg MCHC (31.0-37.0) g/dL RDW (11.5-15.5) % Plt Count (150-450) k/uL MPV Neutrophils % % Lymphocytes % % Monocytes % % Eosinophils % % Basophils % % Neutrophils # (1.3-7.7) k/uL Lymphocytes # (1.0-4.8) k/uL Monocytes # (0-1.0) k/uL Eosinophils # (0-0.7) k/uL Basophils # (0-0.2) k/uL Anisocytosis PT (10.0-12.5) sec INR (<1.2) APTT (22.0-30.0) sec Sodium 134 L (137-145) mmol/L Potassium 5.7 H (3.5-5.1) mmol/L Chloride 97 L (98-107) mmol/L Carbon Dioxide 20 L (22-30) mmol/L Anion Gap 17 mmol/L BUN 61 H (7-17) mg/dL Creatinine 10.43 H* (0.52-1.04) mg/dL Est GFR (CKD-EPI)AfAm 5 (>60 ml/min/1.73 sqM) Est GFR (CKD-EPI)NonAf 4 (>60 ml/min/1.73 sqM) Glucose 78 (74-99) mg/dL Plasma Lactic Acid Johan (0.7-2.0) mmol/L Calcium 8.6 (8.4-10.2) mg/dL Total Bilirubin 0.6 (0.2-1.3) mg/dL AST 21 (14-36) U/L ALT 10 (4-34) U/L Alkaline Phosphatase 42 (38-126) U/L Troponin I 0.046 H* (0.000-0.034) ng/mL Total Protein 7.6 (6.3-8.2) g/dL Albumin 4.0 (3.5-5.0) g/dL Amylase 147 H (30-110) U/L Lipase 224 (23-300) U/L Influenza Type A (PCR) Not Detected (Not Detectd) Influenza Type B (PCR) Not Detected (Not Detectd) RSV (PCR) Not Detected (Not Detectd) SARS-CoV-2 (PCR) Not Detected (Not Detectd) - EKG Data -: EKG Interpreted by Me EKG Comments: 12-lead Electrocardiogram Interpretation Note EKG was reviewed and interpreted by myself. 12-lead ECG performed at 1156 is interpreted by me as revealing normal sinus rhythm at a rate of 83 beats per minute. [place] is normal. MT interval is 236 ms, QRS duration is 98 ms, QTc is 450 ms. Chronic T wave inversions in the lateral precordial leads.. There were no obvious acute ST or T wave abnormalities to suggest myocardial ischemia or injury. R wave progression across the precordium was satisfactory. By my interpretation this EKG is non-diagnostic for acute ischemia. Compared with EKGs from September 2023. Critical Care Time Critical Care Time: Yes Total Critical Care Time: 34 Disposition Clinical Impression: Hyperkalemia, Nausea and vomiting, ESRD on hemodialysis Disposition: ADMITTED IP TO THIS [facility] Condition: Stable Time of Disposition: 15:22
[2023-11-28] MEDS: PANTOPRAZOLE 40 MG/10 ML VIAL IVP STA (12:33)
[2023-11-28] MEDS: ONDANSETRON 4 MG/2 ML VIAL IVP STA (12:33)
[2023-11-28] MEDS: SODIUM CHLORIDE 0.9% 500 ML 250 ML IV STA (12:34)
[2023-11-28] MEDS: KETOROLAC 15 MG/ML 1 ML VIAL IVP STA (12:35)
[2023-11-28 12:50] LABS: Anisocytosis Slight; Basophils # (A) 0.1 k/uL (0-0.2); Basophils % (A) 1 %; Eosinophils # (A) 0.7 k/uL (0-0.7); Eosinophils % (A) 9 %; HCT 28.2 % (34.0-46.0); Lymphocytes # (A) 1.2 k/uL (1.0-4.8); Lymphocytes % (A) 16 %; MCH 29.1 pg (25.0-35.0); MCHC 32.1 g/dL (31.0-37.0); MCV 90.5 fL (80.0-100.0); Mean Platelet Volume 8.5; Monocytes # (A) 0.4 k/uL (0-1.0); Monocytes % (A) 5 %; Neutrophils % (A) 67 %; Platelet Count 223 k/uL (150-450); RBC 3.11 m/uL (3.80-5.40); RDW 18.3 % (11.5-15.5); WBC 7.5 k/uL (3.8-10.6)
[2023-11-28 12:51] LABS: HGB 9.1 gm/dL (11.4-16.0)
[2023-11-28 12:56] LABS: INR 1.1 (<1.2)
[2023-11-28 12:57] LABS: Partial Thromboplastin Time 27.3 sec (22.0-30.0); Prothrombin Time 11.8 sec (10.0-12.5)
--- NOTE | 2023-11-28 13:02 | XR ---
EXAMINATION TYPE: XR chest 2V DATE OF EXAM: 11/28/2023 12:46 PM CLINICAL INDICATION:Female, 33 years old with history of abdominal pain; [facility] COMPARISON: Chest radiographs from 10/04/2023 TECHNIQUE: XR chest 2V Frontal and lateral views of the chest. FINDINGS: Lungs/Pleura: There is no evidence of pleural effusion, focal consolidation, or pneumothorax. Pulmonary vascularity: Unremarkable. Heart/mediastinum: Cardiomediastinal silhouette is enlarged and stable. Musculoskeletal: No acute osseous pathology. Other findings: None post surgical changes with surgical clips along the left upper extremity and tho racic inlet. IMPRESSION: 1. No acute cardiopulmonary disease/process. 2. Cardiomegaly.
[2023-11-28 14:36] LABS: ALT 10 U/L (4-34); AST 21 U/L (14-36); Alkaline Phosphatase 42 U/L (38-126); Amylase 147 U/L (30-110); Anion Gap 17 mmol/L; Blood Urea Nitrogen 61 mg/dL (7-17); Calcium 8.6 mg/dL (8.4-10.2); Carbon Dioxide 20 mmol/L (22-30); Chloride 97 mmol/L (98-107); Glucose 78 mg/dL (74-99); Lipase 224 U/L (23-300); Potassium 5.7 mmol/L (3.5-5.1); Sodium 134 mmol/L (137-145); Total Bilirubin 0.6 mg/dL (0.2-1.3); Total Protein 7.6 g/dL (6.3-8.2)
[2023-11-28 14:42] LABS: African American GFR (CKD) 5 (>60 ml/min/1.73 sqM); Non-African American GFR(CKD) 4 (>60 ml/min/1.73 sqM)
[2023-11-28] MEDS: ALBUTEROL NEB (CONC) 2.5 MG/0.5 ML INHALATION ONE (15:20)
[2023-11-28] MEDS ORDERED: NALOXONE 0.4 MG/ML 1 ML VIAL IV PRN (15:32)
[2023-11-28] MEDS ORDERED: KETOROLAC 15 MG/ML 1 ML VIAL IVP PRN (15:32)
[2023-11-28] MEDS: MORPHINE SULFATE 4 MG/ML SYRINGE IV PRN (15:43)
[2023-11-28] MEDS: DEXTROSE 50% SYRINGE 50 ML IVP ONE (15:56)
[2023-11-28] MEDS: INSULIN REGULAR 100 UNIT/ML VIAL (IV) IV ONE (15:58)
[2023-11-28] MEDS: SODIUM BICARB 8.4% 50 ML SYR (1 MEQ/ML) IV ONE (15:58)
[2023-11-28] MEDS: CALCIUM GLUCONATE IN NACL 1 GM in SALINE 1 100ML.BAG IVPB ONE (16:01)
[2023-11-28] MEDS: SODIUM ZIRCONIUM CYCLOSILICATE 10 GM PACKET PO ONE (16:02)
[2023-11-28] MEDS: HEPARIN SODIUM,PORCINE 5,000 UNIT/ML 1 ML VIAL SQ SCH (16:10)
[2023-11-28 16:42] LABS: Glucose,Whole Blood 68 mg/dL (70-110)
[2023-11-28] MEDS ORDERED: ONDANSETRON 4 MG TAB PO PRN (17:15)
[2023-11-28] MEDS ORDERED: ALBUTEROL NEBULIZED 2.5 MG/3 ML INHALATION PRN (17:15)
[2023-11-28] MEDS ORDERED: DOCUSATE 100 MG CAP PO PRN (17:15)
[2023-11-28] MEDS ORDERED: LACTULOSE 20 GM/30 ML CUP PO PRN (17:15)
[2023-11-28] MEDS ORDERED: SODIUM ZIRCONIUM CYCLOSILICATE 10 GM PACKET PO PRN (17:15)
[2023-11-28 18:23] LABS: Glucose,Whole Blood 92 mg/dL (70-110)
[2023-11-28] MEDS: DARBEPOETIN ALFA 40 MCG/0.4 ML SYRINGE SQ SCH (18:31)
[2023-11-28] MEDS: ASPIRIN 81 MG PO STA (18:55)
[2023-11-28] MEDS: carvediloL 12.5 MG TAB PO SCH (19:04)
[2023-11-28] MEDS: hydrALAZINE HCL 50 MG TAB PO SCH (21:13)
[2023-11-28] MEDS: NIFEdipine XL 90 MG TAB.ER.24 PO SCH (21:21)
[2023-11-28] MEDS: ONDANSETRON 4 MG/2 ML VIAL IVP PRN (21:56)
[2023-11-29 08:47] LABS: Anisocytosis Slight; Basophils # (A) 0.1 k/uL (0-0.2); Basophils % (A) 1 %; Eosinophils # (A) 0.5 k/uL (0-0.7); Eosinophils % (A) 10 %; HCT 27.2 % (34.0-46.0); HGB 8.5 gm/dL (11.4-16.0); Hypochromasia Slight; Lymphocytes % (A) 21 %; MCH 28.9 pg (25.0-35.0); MCHC 31.1 g/dL (31.0-37.0); Mean Platelet Volume 8.3; Monocytes # (A) 0.4 k/uL (0-1.0); Monocytes % (A) 8 %; Neutrophils % (A) 59 %; Platelet Count 178 k/uL (150-450); RBC 2.93 m/uL (3.80-5.40); RDW 17.8 % (11.5-15.5); WBC 5.1 k/uL (3.8-10.6)
[2023-11-29 09:04] LABS: ALT 10 U/L (4-34); AST 19 U/L (14-36); Albumin 4.1 g/dL (3.5-5.0); Alkaline Phosphatase 44 U/L (38-126); Anion Gap 20 mmol/L; Blood Urea Nitrogen 73 mg/dL (7-17); Calcium 8.4 mg/dL (8.4-10.2); Carbon Dioxide 22 mmol/L (22-30); Chloride 94 mmol/L (98-107); Glucose 78 mg/dL (74-99); Potassium 4.5 mmol/L (3.5-5.1); Sodium 136 mmol/L (137-145); Total Bilirubin 0.5 mg/dL (0.2-1.3); Total Protein 7.6 g/dL (6.3-8.2)
[2023-11-29 09:10] LABS: African American GFR (CKD) 4 (>60 ml/min/1.73 sqM); Non-African American GFR(CKD) 3 (>60 ml/min/1.73 sqM)
[2023-11-29] MEDS: CALCITRIOL 0.5 MCG PO SCH (10:20)
[2023-11-29] MEDS: PANTOPRAZOLE 40 MG/10 ML VIAL IV SCH (10:21)
[2023-11-29] MEDS: CALCIUM CARBONATE 500 MG CHEWABLE PO PRN (10:26)
--- NOTE | 2023-11-29 13:15 | P.HPIM ---
History of Present Illness 33-year-old female came with complaints of nausea pleuritic chest pain and hypotension. Patient does have extensive history of incisional disease hemodialysis patient is found to have mildly elevated potassium of 5.7 patient did not miss any hemodialysis. Patient is still quite nauseous at this time EKG did not show any acute ST-T wave changes patient had history of systolic dysfunction patient is not significantly volume overloaded at this time. Patient does have gastroesophageal reflux disease history as well. patient's troponins are mildly elevated but patient has end-stage renal disease and there stable at 0.049 and suspicion for acute coronary event is low. REVIEW OF SYSTEMS: All other review of systems are negative except those mentioned above The rest of the 14-point review of systems is negative. PHYSICAL EXAMINATION: GENERAL: The patient is alert and oriented x3, not in any acute distress. Thin built female HEENT: Pupils are round and equally reacting to light. EOMI. No scleral icterus. No conjunctival pallor. Normocephalic, atraumatic. No pharyngeal erythema. No thyromegaly. CARDIOVASCULAR: S1 and S2 present. No murmurs, rubs, or gallops. PULMONARY: Chest is clear to auscultation, no wheezing or crackles. ABDOMEN: Soft, nontender, nondistended, normoactive bowel sounds. No palpable organomegaly. MUSCULOSKELETAL: No joint swelling or deformity. EXTREMITIES: No cyanosis, clubbing, or pedal edema. NEUROLOGICAL: Gross neurological examination did not reveal any focal deficits. SKIN: No rashes. Assessment and plan -Chest pain has a pleuritic complaint will obtain a D-dimer if that is positive we will order VQ scan. -Nausea vomiting secondary to end-stage renal disease patient does have gastroesophageal reflux disease as well will order Protonix and symptomatic treatment for nausea -Mild elevated troponin secondary to end-stage renal disease -Hyperkalemia secondary to end-stage renal disease patient is receiving a hemodialysis -Hyponatremia secondary to end-stage renal disease -Hypertension patient is on multiple medications for this we will hold off her hydralazine temporarily and see how her blood pressure is rest of the home medications will be resumed. 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 History of Any Multi-Drug Resistant Organisms: None Reported Past Surgical History: Heart Catheterization, Hernia Repair Additional Past Surgical History / Comment(s): 06/14/18 cardiac cath at [facility] to check coronary pressures, 11/15/09 Failed kidney transplant R pelvis, dialysis catheter in and out, current L upper arm AVG, supra pubic hernia repair, transvaginal mesh, wisdom teeth extraction with anesthesia, 2016 failed kidney transplant Past Anesthesia/Blood Transfusion Reactions: No Reported Reaction Additional Past Anesthesia/Blood Transfusion Reaction / Comment(s): Pt has received blood in past without reaction. Past Psychological History: Anxiety, Depression Smoking Status: Former smoker Past Alcohol Use History: None Reported Past Drug Use History: None Reported - Past Family History Father Family Medical History: No Reported History Additional Family Medical History / Comment(s): Father is healthy and is 62 yrs old. Mother Family Medical History: No Reported History Additional Family Medical History / Comment(s): Mother is healthy and is 60 yrs old. Medications and Allergies Home Medications Medication Instructions Recorded Confirmed Type Albuterol Sulfate [Proair Hfa] 2 puff INHALATION RT-Q6H PRN 01/22/16 11/28/23 History hydrALAZINE HCL [Apresoline] 100 mg PO TID 11/16/18 11/28/23 History Calcium Acetate [PhosLo] 2,668 mg PO TID-W/MEALS 05/01/20 11/28/23 History calcitrioL 6 mcg PO DAILY 10/29/21 11/28/23 History hydrOXYzine HCL [Atarax] 25 mg PO TID PRN 10/29/21 11/28/23 History Acetaminophen Tab [Tylenol] 1,000 mg PO Q6HR PRN 05/26/22 11/28/23 History Calcium Acetate [PhosLo] 667 - 1,334 mg PO BID PRN 05/26/22 11/28/23 History Docusate [Colace] 100 mg PO BID PRN 03/23/23 11/28/23 History Sodium Zirconium Cyclosilicate 10 gm PO DAILY PRN 03/23/23 11/28/23 History [Lokelma] Darbepoetin Aamir [Aranesp] 40 mcg SQ DIRECTED 06/01/23 11/28/23 History Lactulose 10 gm PO DAILY PRN 09/05/23 11/28/23 History carvediloL [Coreg*] 12.5 mg PO BID-W/MEALS 09/05/23 11/28/23 History Ondansetron [Zofran] 4 mg PO Q8HR PRN #20 tab 09/08/23 11/28/23 Rx Calcium Carbonate [Tums] 1,500 mg PO ACHS PRN 09/23/23 11/28/23 History NIFEdipine XL [Procardia Xl] 90 mg PO BID 11/28/23 11/28/23 History Allergies Allergy/AdvReac Type Severity Reaction Status Date / Time vancomycin Allergy Anaphylaxis Verified 11/28/23 15:07 hydralazine AdvReac Rapid Verified 11/28/23 15:07 Heart Rate WHEN GIVEN THROUGH IV Physical Exam Vitals: Vital Signs Pulse Resp BP Pulse Ox 11/29/23 11:40 80 18 127/85 96 11/29/23 10:14 79 18 142/96 96 11/29/23 04:30 81 18 154/93 98 11/29/23 00:00 82 18 154/93 98 11/28/23 19:00 73 18 149/94 97 11/28/23 18:30 79 18 147/91 96 11/28/23 18:00 79 18 141/96 98 11/28/23 17:30 86 20 144/99 98 11/28/23 17:00 90 18 137/91 96 11/28/23 15:31 82 11/28/23 15:20 74 11/28/23 15:00 75 16 111/69 98 11/28/23 14:30 72 16 119/79 96 11/28/23 14:00 80 16 131/92 98 Results CBC & Chem 7: 11/29/23 08:02 11/29/23 08:02 Labs: Abnormal Lab Results - Last 24 Hours (Table) 11/28/23 11/28/23 11/28/23 Range/Units 14:00 14:00 16:40 RBC (3.80-5.40) m/uL Hgb (11.4-16.0) gm/dL Hct (34.0-46.0) % RDW (11.5-15.5) % Sodium 134 L (137-145) mmol/L Potassium 5.7 H (3.5-5.1) mmol/L Chloride 97 L (98-107) mmol/L Carbon Dioxide 20 L (22-30) mmol/L BUN 61 H (7-17) mg/dL Creatinine 10.43 H* (0.52-1.04) mg/dL POC Glucose (mg/dL) 68 L (70-110) mg/dL Troponin I 0.046 H* (0.000-0.034) ng/mL Amylase 147 H (30-110) U/L 11/28/23 11/28/23 11/29/23 Range/Units 18:07 20:36 08:02 RBC 2.93 L (3.80-5.40) m/uL Hgb 8.5 L (11.4-16.0) gm/dL Hct 27.2 L (34.0-46.0) % RDW 17.8 H (11.5-15.5) % Sodium (137-145) mmol/L Potassium (3.5-5.1) mmol/L Chloride (98-107) mmol/L Carbon Dioxide (22-30) mmol/L BUN (7-17) mg/dL Creatinine (0.52-1.04) mg/dL POC Glucose (mg/dL) (70-110) mg/dL Troponin I 0.043 H* 0.049 H* (0.000-0.034) ng/mL Amylase (30-110) U/L 11/29/23 Range/Units 08:02 RBC (3.80-5.40) m/uL Hgb (11.4-16.0) gm/dL Hct (34.0-46.0) % RDW (11.5-15.5) % Sodium 136 L (137-145) mmol/L Potassium (3.5-5.1) mmol/L Chloride 94 L (98-107) mmol/L Carbon Dioxide (22-30) mmol/L BUN 73 H (7-17) mg/dL Creatinine 12.83 H* (0.52-1.04) mg/dL POC Glucose (mg/dL) (70-110) mg/dL Troponin I (0.000-0.034) ng/mL Amylase (30-110) U/L
[2023-11-29] MEDS ORDERED: CALCIUM ACETATE 667 MG TAB PO PRN (13:18)
--- NOTE | 2023-11-29 13:23 | P.NPCON ---
History of Present Illness - Reason for Consult end stage renal disease - History of Present Illness patient is a 33-year-old female with end-stage renal disease maintained on hemodialysis on a Wednesday schedule. Patient is admitted to the hospital with complaints of nausea and increased wea kness. patient also complained of chest pain. She felt at her potassium might be elevated. Patient has not missed any outpatient hemodialysis treatments. Potassium was 5.7. Chest x-ray did not show significant CHF or volume overload. Next Patient is currently seen on hemodialysis. Blood pressure is not low. Review of Systems as per HPI. 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 History of Any Multi-Drug Resistant Organisms: None Reported Past Surgical History: Heart Catheterization, Hernia Repair Additional Past Surgical History / Comment(s): 06/14/18 cardiac cath at [facility] to check coronary pressures, 11/15/09 Failed kidney transplant R pelvis, dialysis catheter in and out, current L upper arm AVG, supra pubic hernia repair, transvaginal mesh, wisdom teeth extraction with anesthesia, 2016 failed kidney transplant Past Anesthesia/Blood Transfusion Reactions: No Reported Reaction Additional Past Anesthesia/Blood Transfusion Reaction / Comment(s): Pt has received blood in past without reaction. Past Psychological History: Anxiety, Depression Smoking Status: Former smoker Past Alcohol Use History: None Reported Past Drug Use History: None Reported - Past Family History Father Family Medical History: No Reported History Additional Family Medical History / Comment(s): Father is healthy and is 62 yrs old. Mother Family Medical History: No Reported History Additional Family Medical History / Comment(s): Mother is healthy and is 60 yrs old. Medications and Allergies Home Medications Medication Instructions Recorded Confirmed Type Albuterol Sulfate [Proair Hfa] 2 puff INHALATION RT-Q6H PRN 01/22/16 11/28/23 History hydrALAZINE HCL [Apresoline] 100 mg PO TID 11/16/18 11/28/23 History Calcium Acetate [PhosLo] 2,668 mg PO TID-W/MEALS 05/01/20 11/28/23 History calcitrioL 6 mcg PO DAILY 10/29/21 11/28/23 History hydrOXYzine HCL [Atarax] 25 mg PO TID PRN 10/29/21 11/28/23 History Acetaminophen Tab [Tylenol] 1,000 mg PO Q6HR PRN 05/26/22 11/28/23 History Calcium Acetate [PhosLo] 667 - 1,334 mg PO BID PRN 05/26/22 11/28/23 History Docusate [Colace] 100 mg PO BID PRN 03/23/23 11/28/23 History Sodium Zirconium Cyclosilicate 10 gm PO DAILY PRN 03/23/23 11/28/23 History [Lokelma] Darbepoetin Aamir [Aranesp] 40 mcg SQ DIRECTED 06/01/23 11/28/23 History Lactulose 10 gm PO DAILY PRN 09/05/23 11/28/23 History carvediloL [Coreg*] 12.5 mg PO BID-W/MEALS 09/05/23 11/28/23 History Ondansetron [Zofran] 4 mg PO Q8HR PRN #20 tab 09/08/23 11/28/23 Rx Calcium Carbonate [Tums] 1,500 mg PO ACHS PRN 09/23/23 11/28/23 History NIFEdipine XL [Procardia Xl] 90 mg PO BID 11/28/23 11/28/23 History Allergies Allergy/AdvReac Type Severity Reaction Status Date / Time vancomycin Allergy Anaphylaxis Verified 11/28/23 15:07 hydralazine AdvReac Rapid Verified 11/28/23 15:07 Heart Rate WHEN GIVEN THROUGH IV Physical Exam Vitals: Vital Signs Pulse Resp BP Pulse Ox 11/29/23 11:40 80 18 127/85 96 11/29/23 10:14 79 18 142/96 96 11/29/23 04:30 81 18 154/93 98 11/29/23 00:00 82 18 154/93 98 11/28/23 19:00 73 18 149/94 97 11/28/23 18:30 79 18 147/91 96 11/28/23 18:00 79 18 141/96 98 11/28/23 17:30 86 20 144/99 98 11/28/23 17:00 90 18 137/91 96 11/28/23 15:31 82 11/28/23 15:20 74 11/28/23 15:00 75 16 111/69 98 11/28/23 14:30 72 16 119/79 96 11/28/23 14:00 80 16 131/92 98 patient is awake, comfortable, no acute distress. Examination of the heart S1 and S2 Examination of the lungs bilateral breath sounds are heard Abdomen is soft nontender examination of lower extremity shows no significant edema ARMATURE STRAIGHTENER exam grossly intact Results - Lab Results Most recent lab results Calcium 8.4 mg/dL (8.4-10.2) 11/29/23 08:02 11/29/23 08:02 11/29/23 08:02 Assessment and Plan Assessment: 1. End-stage renal disease on hemodialysis on a Wednesday schedule 2. Mild hyperkalemia, expect improvement post hemodialysis 3. chest pain with positive d-dimer 4. 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 Anemia of chronic disease Plan: hemodialysis today with goal UF about 1-2 L as tolerated. Check phosphorus. continue calcitriol Thank you for the consultation. We will continue to follow the patient with you during her hospitalization.
[2023-11-29] MEDS: CALCIUM ACETATE 667 MG TAB PO SCH (18:32)
[2023-11-30 11:31] LABS: African American GFR (CKD) 6 (>60 ml/min/1.73 sqM); Anion Gap 11 mmol/L; Blood Urea Nitrogen 31 mg/dL (7-17); Calcium 8.2 mg/dL (8.4-10.2); Carbon Dioxide 30 mmol/L (22-30); Chloride 93 mmol/L (98-107); Glucose 88 mg/dL (74-99); Non-African American GFR(CKD) 6 (>60 ml/min/1.73 sqM); Potassium 3.8 mmol/L (3.5-5.1); Sodium 134 mmol/L (137-145)
--- NOTE | 2023-11-30 11:41 | P.PN ---
Subjective patient is seen for follow-up for end-stage renal disease. Status post hemodialysis yesterday with UF of 2.4 L. Complaining of nausea today. blood pressure is not elevated. Objective - Vital Signs Vital signs: Vital Signs Temp 98.1 F 11/30/23 08:10 Pulse 81 11/30/23 08:10 Resp 18 11/30/23 08:10 BP 122/74 11/30/23 08:10 Pulse Ox 97 11/30/23 08:10 FiO2 Intake & Output 11/29/23 11/30/23 11/30/23 18:59 06:59 18:59 Intake Total 400 Output Total 2400 Balance -2000 Weight 54.2 kg Intake: Hemodialysis 400 Output: Hemodialysis 2400 - Exam patient is awake, comfortable, no acute distress. Examination of the heart S1 and S2 Examination of the lungs bilateral breath sounds are heard Abdomen is soft nontender Examination lower extremities shows no significant edema. - Labs CBC & Chem 7: 11/29/23 08:02 11/30/23 10:43 Labs: Abnormal Lab Results - Last 24 Hours (Table) 11/29/23 11/30/23 Range/Units 08:02 10:43 Sodium 134 L (137-145) mmol/L Chloride 93 L (98-107) mmol/L BUN 31 H (7-17) mg/dL Creatinine 8.60 H* (0.52-1.04) mg/dL Calcium 8.2 L (8.4-10.2) mg/dL Procalcitonin 0.45 H (0.02-0.09) ng/mL Assessment and Plan Assessment: 1. End-stage renal disease on hemodialysis on a Wednesday schedu le 2. Mild hyperkalemia, expect improvement post hemodialysis 3. chest pain with positive d-dimer, resolved 4. 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 Anemia of chronic disease Plan: hemodialysis in a.m. Continue proton pump inhibitors
--- NOTE | 2023-11-30 13:25 | XR ---
EXAMINATION TYPE: XR abdomen 2V DATE OF EXAM: 11/30/2023 1:11 PM CLINICAL INDICATION:Female, 33 years old with history of nausea; COMPARISON: 09/06/2023 TECHNIQUE: Two views of the abdomen were obtained. FINDINGS: High density material within the colon possibly relating to prior oral contrast. The bowel gas pattern is nonspecific without dilated loops of small or large bowel. There is no evidence for or ganomegaly or pneumoperitoneum. The osseous structures are intact. No abnormal calcifications are p resent. Fecal material and gas are demonstrated throughout the colon and rectum. Vascular clips proj ect over the left upper extremity. IMPRESSION: Nonspecific bowel gas pattern without radiographic evidence for acute process.
--- NOTE | 2023-11-30 14:54 | P.PN ---
Subjective Progress Note Date: 11/30/23 33-year-old female came with complaints of nausea pleuritic chest pain and hypotension. Patient does have extensive history of incisional disease hemodialysis patient is found to have mildly elevated potassium of 5.7 patient did not miss any hemodialysis. Patient is still quite nauseous at this time EKG did not show any acute ST-T wave changes patient had history of systolic dysfunction patient is not significantly volume overloaded at this time. Patient does have gastroesophageal reflux disease history as well. patient's troponins are mildly elevated but patient has end-stage renal disease and there stable at 0.049 and suspicion for acute coronary event is low. 11/30/2023 Patient is evaluated today in follow-up on the medical floor. She is being followed by nephrology and undergoing hemodialysis. Patient's creatinine today is 8.60. she does have continued nausea with reports of diarrhea denies any blood in the stool or any melena, she is not having any bloody emesis or black tarry emesis. Patient does not have any abdominal tenderness on palpation. Decreased appetite. Review of Systems Constitutional: Denied any fatigue denied any fever. Cardio vascular: denied any chest pain, palpitations Gastrointestinal: Orts nausea and diarrhea vomiting has improved Pulmonary: Denied any shortness of breath cough Neurologic denied any new focal deficits All inpatient medications were reviewed and appropriate changes in these medications as dictated in the interval history and assessment and plan. PHYSICAL EXAMINATION: GENERAL: The patient is alert and oriented x3, not in any acute distress. Thin built female HEENT: Pupils are round and equally reacting to light. EOMI. No scleral icterus. No conjunctival pallor. Normocephalic, atraumatic. No pharyngeal erythema. No thyromegaly. CARDIOVASCULAR: S1 and S2 present. No murmurs, rubs, or gallops. PULMONARY: Chest is clear to auscultation, no wheezing or crackles. ABDOMEN: Soft, nontender, nondistended, normoactive bowel sounds. No palpable organomegaly. MUSCULOSKELETAL: No joint swelling or deformity. EXTREMITIES: No cyanosis, clubbing, or pedal edema. NEUROLOGICAL: Gross neurological examination did not reveal any focal deficits. SKIN: No rashes. Assessment and plan -Chest pain has a pleuritic complaint D-dimer was normal patient denying any chest pain today. -Nausea vomiting secondary to end-stage renal disease patient does have gastroesophageal reflux disease as well will order Protonix and symptomatic treatment for nausea -Mild elevated troponin secondary to end-stage renal disease -Hyperkalemia secondary to end-stage renal disease patient is receiving a hemodialysis -Hyponatremia secondary to end-stage renal disease -Hypertension patient is on multiple medications for this we will hold off her hydralazine temporarily and see how her blood pressure is rest of the home medications will be resumed. -Intractable nausea and diarrhea, GI services will be consulted check an abdominal x-ray and C. difficile. DVT prophylaxis: Subcutaneous heparin The impression and plan of care has been dictated by Kim Blank, Nurse Practitioner as directed. Dr. Miguel MD I have performed a history and physical examination and medical decision making of this patient, discussed the same with the dictator, and agree with the dictators assessment and plan as written, documented as a scribe. Based on total visit time, I have performed more than 50% of this visit. Objective - Vital Signs Vital signs: Vital Signs Temp 98.1 F 11/30/23 08:10 Pulse 81 11/30/23 08:10 Resp 18 11/30/23 08:10 BP 122/74 11/30/23 08:10 Pulse Ox 97 11/30/23 08:10 FiO2 Intake & Output 11/29/23 11/30/23 11/30/23 18:59 06:59 18:59 Intake Total 400 Output Total 2400 Balance -2000 Weight 54.2 kg Intake: Hemodialysis 400 Output: Hemodialysis 2400 - Labs CBC & Chem 7: 11/29/23 08:02 11/30/23 10:43 Labs: Abnormal Lab Results - Last 24 Hours (Table) 11/29/23 11/30/23 Range/Units 08:02 10:43 Sodium 134 L (137-145) mmol/L Chloride 93 L (98-107) mmol/L BUN 31 H (7-17) mg/dL Creatinine 8.60 H* (0.52-1.04) mg/dL Calcium 8.2 L (8.4-10.2) mg/dL Procalcitonin 0.45 H (0.02-0.09) ng/mL Assessment and Plan Time with Patient: Less than 30
[2023-11-30] MEDS: DARBEPOETIN ALFA 60 MCG/0.3 ML SYRINGE SQ SCH (16:46)
--- NOTE | 2023-12-01 11:30 | P.PN ---
Subjective patient is seen for follow-up for end-stage renal disease. scheduled for hemodialysis today. nausea has improved. Objective - Vital Signs Vital signs: Vital Signs Temp 98.4 F 12/01/23 07:39 Pulse 71 12/01/23 07:39 Resp 17 12/01/23 07:39 BP 166/100 12/01/23 07:39 Pulse Ox 98 12/01/23 07:39 FiO2 Intake & Output 11/30/23 12/01/23 12/01/23 18:59 06:59 18:59 Output Total 0 Balance 0 Weight 54.1 kg Output: Urine 0 Other: # Voids 2 - Exam patient is awake, comfortable, no acute distress. Examination of the heart S1 and S2 Examination of the lungs bilateral breath sounds are heard Abdomen is soft nontender Examination lower extremities shows no significant edema. - Labs CBC & Chem 7: 11/29/23 08:02 11/30/23 10:43 Labs: Abnormal Lab Results - Last 24 Hours (Table) 11/30/23 Range/Units 10:43 Sodium 134 L (137-145) mmol/L Chloride 93 L (98-107) mmol/L BUN 31 H (7-17) mg/dL Creatinine 8.60 H* (0.52-1.04) mg/dL Calcium 8.2 L (8.4-10.2) mg/dL Assessment and Plan Assessment: 1. End-stage renal disease on hemodialysis on a Wednesday schedule 2. Mild hyperkalemia, improved post hemodialysis 3. chest pain with positive d-dimer, resolved 4. 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 Anemia of chronic disease Plan: hemodialysis today. Continue with Aranesp Continue proton pump inhibitors
[2023-12-01] MEDS: METOCLOPRAMIDE 5 MG/ML 2 ML VIAL IVP SCH (11:41)
--- NOTE | 2023-12-01 15:29 | P.CONS ---
History of Present Illness - Reason for Consult Consult date: 12/01/23 Intractable nausea Requesting physician: Kim Blank - Chief Complaint Dizziness and chest discomfort - History of Present Illness This is a pleasant 33-year-old -[place] female who had presented to the emergency department with complaints of dizziness leg cramps and chest discomfort. She has past medical history including cardiomyopathy, end-stage renal disease on hemodialysis, asthma and hypertension. She also presented with complaints of nausea and vomiting. She was noticed to be hyperkalemic and was admitted to the hospital. She continued to have nausea and vomiting over the last couple days and states Zofran had not been helping. Today she states she is feeling better she has some nausea but no vomiting. Gastroenterology was consulted for intractable nausea. States bowel movements have been normal. Potassium has normalized during her hospital stay. She usually gets dialysis Fridays. She follows with Dr. Johnson. She denies any abdominal pain, fevers or chills. Review of Systems REVIEW OF SYSTEMS: CARDIOPULMONARY: No chest pain or shortness of breath. Gastrointestinal: No abdominal pain. Nausea with improved vomiting. No hematemesis, coffee-ground emesis. No rectal bleeding, or melena. GENITOURINARY: No dysuria or hematuria. MUSCULOSKELETAL: Reports normal range of motion., Joint pain. SKIN: No rashes. No jaundice. ENDOCRINE: No chills, fevers. No excessive weight gain or loss. No polydipsia or polyuria. Patient came in with dizziness and leg cramping. PSYCHIATRIC: Unremarkable. NEUROLOGY: No change in mental status. Denies dizziness, headache. ENT: Vision unremarkable. CONSTITUTIONAL: No recent weight loss. No fever, chills, night sweats. 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 History of Any Multi-Drug Resistant Organisms: None Reported Past Surgical History: Heart Catheterization, Hernia Repair Additional Past Surgical History / Comment(s): 06/14/18 cardiac cath at [facility] to check coronary pressures, 11/15/09 Failed kidney transplant R pelvis, dialysis catheter in and out, current L upper arm AVG, supra pubic hernia repair, transva ginal mesh, wisdom teeth extraction with anesthesia, 2016 failed kidney transplant Past Anesthesia/Blood Transfusion Reactions: No Reported Reaction Additional Past Anesthesia/Blood Transfusion Reaction / Comm: Pt has received blood in past without reaction. Past Psychological History: Anxiety, Depression Additional Psychological History / Comment(s): Pt resides with family. She is independent. She drives. She is disabled. She states she has anxiety and depression but denies suicidal thoughts/ idealations or plans. Smoking Status: Never smoker Past Alcohol Use History: None Reported Additional Past Alcohol Use History / Comment(s): . Past Drug Use History: None Reported Additional Drug Use History / Comment(s): . - Past Family History Father Family Medical History: No Reported History Additional Family Medical History / Comment(s): Father is healthy and is 62 yrs old. Mother Family Medical History: No Reported History Additional Family Medical History / Comment(s): Mother is healthy and is 60 yrs old. Medications and Allergies Home Medications Medication Instructions Recorded Confirmed Type Albuterol Sulfate [Proair Hfa] 2 puff INHALATION RT-Q6H PRN 01/22/16 11/28/23 History hydrALAZINE HCL [Apresoline] 100 mg PO TID 11/16/18 11/28/23 History Calcium Acetate [PhosLo] 2,668 mg PO TID-W/MEALS 05/01/20 11/28/23 History calcitrioL 6 mcg PO DAILY 10/29/21 11/28/23 History hydrOXYzine HCL [Atarax] 25 mg PO TID PRN 10/29/21 11/28/23 History Acetaminophen Tab [Tylenol] 1,000 mg PO Q6HR PRN 05/26/22 11/28/23 History Calcium Acetate [PhosLo] 667 - 1,334 mg PO BID PRN 05/26/22 11/28/23 History Docusate [Colace] 100 mg PO BID PRN 03/23/23 11/28/23 History Sodium Zirconium Cyclosilicate 10 gm PO DAILY PRN 03/23/23 11/28/23 History [Lokelma] Darbepoetin Aamir [Aranesp] 40 mcg SQ DIRECTED 06/01/23 11/28/23 History Lactulose 10 gm PO DAILY PRN 09/05/23 11/28/23 History carvediloL [Coreg*] 12.5 mg PO BID-W/MEALS 09/05/23 11/28/23 History Ondansetron [Zofran] 4 mg PO Q8HR PRN #20 tab 09/08/23 11/28/23 Rx Calcium Carbonate [Tums] 1,500 mg PO ACHS PRN 09/23/23 11/28/23 History NIFEdipine XL [Procardia Xl] 90 mg PO BID 11/28/23 11/28/23 History Allergies Allergy/AdvReac Type Severity Reaction Status Date / Time vancomycin Allergy Anaphylaxis Verified 11/28/23 15:07 hydralazine AdvReac Rapid Verified 11/28/23 15:07 Heart Rate WHEN GIVEN THROUGH IV Physical Exam Vitals: Vital Signs Temp Pulse Pulse Resp BP Pulse Ox 12/01/23 07:39 98.4 F 71 17 166/100 98 12/01/23 01:32 97.4 F L 73 16 152/87 97 11/30/23 22:33 98.0 F 80 160/98 100 11/30/23 19:28 97.7 F 77 16 156/94 98 11/30/23 16:00 97.7 F 82 16 153/89 97 11/30/23 14:00 81 84 18 11/30/23 12:00 98.0 F 84 18 151/94 97 Intake and Output 11/30/23 12/01/23 12/01/23 22:59 06:59 14:59 Output Total 0 Balance 0 Output: Urine 0 Other: # Voids 2 Weight 54.1 kg General appearance: The patient is alert, oriented, appears in no acute distress. HET: Head is normocephalic and atraumatic. Conjunctiva pink. Sclera anicteric. Neck: Supple without lymphadenopathy. Trachea midline. Heart: Regular. Lungs: Equal expansion, normal respiratory effort. Abdomen: Soft, nontender, nondistended. Skin: No rashes. No jaundice. Extremities: Normal skin color and turgor. No pedal edema. Neurological: No focal deficits. Alert and oriented x3. Results CBC & Chem 7: 11/29/23 08:02 11/30/23 10:43 Labs: Abnormal Lab Results - Last 24 Hours (Table) 11/30/23 Range/Units 10:43 Sodium 134 L (137-145) mmol/L Chloride 93 L (98-107) mmol/L BUN 31 H (7-17) mg/dL Creatinine 8.60 H* (0.52-1.04) mg/dL Calcium 8.2 L (8.4-10.2) mg/dL Assessment and Plan (1) Nausea & vomiting Narrative/Plan: 33-year-old presenting with multiple complaints with multiple comorbidities including end-stage renal disease on hemodialysis. Admitted for with nausea vomiting and hyperkalemia. Nausea and vomiting likely secondary to hyperkalemia.'s potassium has improved as well as vomiting. Patient still remains nauseated and states Zofran is not working. Will add Reglan, continue with Protonix and told patient to try small amounts of food. Will reevaluate and can change antiemetics as needed. Current Visit: Yes Status: Acute Code(s): R11.2 - NAUSEA WITH VOMITING, UNSPECIFIED SNOMED Code(s): 59922143 (2) ESRD on hemodialysis Current Visit: Yes Status: Acute Code(s): N18.6 - END STAGE RENAL DISEASE; Z99.2 - DEPENDENCE ON RENAL DIALYSIS SNOMED Code(s): 983179275 (3) Hyperkalemia Narrative/Plan: Resolved Current Visit: Yes Status: Acute Code(s): E87.5 - HYPERKALEMIA SNOMED Code(s): 98134252 Plan: 1. Continue symptomatic and supportive care 2. Diet as tolerated 3. Continue Zofran as needed will add Reglan 4. Continue Protonix 5. No plans on endoscopic evaluation 6. Continue to follow electrolytes Thank you for this consultation, we will continue to follow. Dr. Elias Larios I agree with the dictator's note, documented as a scribe by Pat Ferrara.
--- NOTE | 2023-12-01 15:47 | P.PN ---
Subjective Progress Note Date: 12/01/23 33-year-old female came with complaints of nausea pleuritic chest pain and hypotension. Patient does have extensive history of incisional disease hemodialysis patient is found to have mildly elevated potassium of 5.7 patient did not miss any hemodialysis. Patient is still quite nauseous at this time EKG did not show any acute ST-T wave changes patient had history of systolic dysfunction patient is not significantly volume overloaded at this time. Patient does have gastroesophageal reflux disease history as well. patient's troponins are mildly elevated but patient has end-stage renal disease and there stable at 0.049 and suspicion for acute coronary event is low. 11/30/2023 Patient is evaluated today in follow-up on the medical floor. She is being followed by nephrology and undergoing hemodialysis. Patient's creatinine today is 8.60. she does have continued nausea with reports of diarrhea denies any blood in the stool or any melena, she is not having any bloody emesis or black tarry emesis. Patient does not have any abdominal tenderness on palpation. Decreased appetite. 12/01/2023 Patient is evaluated in follow up. Plan to undergo hemodialysis again today. Abdominal xray was unremarkable. Continues to report significant nausea and unable to tolerate much oral intake. GI was consulted and has no plans for endoscopic evaluation recommending to continue on zofran and reglan has been added. Diet as tolerated. Potassium down to 3.8 as of yesterday no new labs available from today. Review of Systems Constitutional: Denied any fatigue denied any fever. Cardio vascular: denied any chest pain, palpitations Gastrointestinal: Reports nausea; diarrhea vomiting has improved Pulmonary: Denied any shortness of breath cough Neurologic denied any new focal deficits All inpatient medications were reviewed and appropriate changes in these medications as dictated in the interval history and assessment and plan. PHYSICAL EXAMINATION: GENERAL: The patient is alert and oriented x3, not in any acute distress. Thin built female HEENT: Pupils are round and equally reacting to light. EOMI. No scleral icterus. No conjunctival pallor. Normocephalic, atraumatic. No pharyngeal erythema. No thyromegaly. CARDIOVASCULAR: S1 and S2 present. No murmurs, rubs, or gallops. PULMONARY: Chest is clear to auscultation, no wheezing or crackles. ABDOMEN: Soft, nontender, nondistended, normoactive bowel sounds. No palpable organomegaly. MUSCULOSKELETAL: No joint swelling or deformity. EXTREMITIES: No cyanosis, clubbing, or pedal edema. NEUROLOGICAL: Gross neurological examination did not reveal any focal deficits. SKIN: No rashes. Assessment and plan -Chest pain has a pleuritic complaint D-dimer was normal patient denying any chest pain currently. -Nausea vomiting secondary to end-stage renal disease patient does have gastroesophageal reflux disease continues on protonix and antiemetics, reglan was added by GI. -Mild elevated troponin secondary to end-stage renal disease -Hyperkalemia secondary to end-stage renal disease patient is receiving a hemodialysis, potassium has normalized. -Hyponatremia secondary to end-stage renal disease -Hypertension patient is on multiple medications; resumed on decreased dose of oral hydralazine. DVT prophylaxis: Subcutaneous heparin GI prophylaxis PPI Full Code Patient will undergo hemodialysis today. Continue antiemetics and encourage diet. Possible D/C home in the next 24 hours. The impression and plan of care has been dictated by Kim Blank, Nurse Practitioner as directed. Dr. Miguel MD I have performed a history and physical examination and medical decision making of this patient, discussed the same with the dictator, and agree with the dictators assessment and plan as written, documented as a scribe. Based on total visit time, I have performed more than 50% of this visit. Objective - Vital Signs Vital signs: Vital Signs Temp 98.1 F 12/01/23 12:56 Pulse 77 12/01/23 12:56 Resp 16 12/01/23 12:56 BP 156/90 12/01/23 12:56 Pulse Ox 94 L 12/01/23 12:56 FiO2 Intake & Output 11/30/23 12/01/23 12/01/23 18:59 06:59 18:59 Output Total 0 Balance 0 Weight 54.1 kg Output: Urine 0 Other: # Voids 2 - Labs CBC & Chem 7: 11/29/23 08:02 11/30/23 10:43 Assessment and Plan Time with Patient: Less than 30
[2023-12-01] MEDS: hydrALAZINE HCL 50 MG TAB PO SCH (17:52)
[2023-12-01] MEDS: hydrOXYzine HCL 25 MG TAB PO PRN (20:33)
[2023-12-02 10:40] LABS: Basophils # (A) 0.05 X 10*3/uL (0.00-0.10); Eosinophils # (A) 0.32 X 10*3/uL (0.04-0.35); Eosinophils % (A) 6.6 %; HCT 32.4 % (37.2-46.3); HGB 10.1 g/dL (12.0-15.0); Lymphocytes # (A) 1.05 X 10*3/uL (0.90-5.00); Lymphocytes % (A) 21.8 %; MCH 28.9 pg (27.0-32.0); MCHC 31.2 g/dL (32.0-37.0); MCV 92.6 FL (80.0-97.0); Mean Platelet Volume 10.5 FL (9.5-12.2); Monocytes # (A) 0.74 X 10*3/uL (0.20-1.00); Monocytes % (A) 15.4 %; NRBC Per 100 WBC 0 X 10*3/uL (0.00-0.01); Neutrophils # (A) 2.64 X 10*3/uL (1.80-7.70); Neutrophils % (A) 54.8 %; Platelet Count 186 X 10*3/uL (140-440); RDW 17.2 % (11.5-14.5); WBC 4.82 X 10*3/uL (4.50-10.00)
[2023-12-02 11:06] LABS: Magnesium 2.3 mg/dL (1.5-2.4)
[2023-12-02 11:12] LABS: Blood Urea Nitrogen 28.1 mg/dL (9.0-27.0); Calcium 9.6 mg/dL (8.7-10.3); Carbon Dioxide 23.5 mmol/L (21.6-31.8); Chloride 94 mmol/L (96-109); Glucose 97 mg/dL (70-110); Potassium 4.7 mmol/L (3.5-5.5); Sodium 135 mmol/L (135-145)
--- NOTE | 2023-12-02 11:17 | P.PN ---
Subjective Patient is seen in follow-up for end-stage renal disease. She is maintained on hemodialysis on Wednesday schedule. Denies chest pain or shortness of breath. Wants to go home. Hemodynamically stable. Vital signs are stable. General: No acute distress. HEENT: Head exam is unremarkable. LUNGS: No audible rhonchi or wheezes. HEART: Rate and Rhythm are regular. ABDOMEN: Nontender. EXTREMITITES: No edema. Objective - Vital Signs Vital signs: Vital Signs Temp 98.2 F 12/02/23 07:24 Pulse 79 12/02/23 07:24 Resp 18 12/02/23 07:24 BP 113/75 12/02/23 07:24 Pulse Ox 100 12/02/23 07:24 FiO2 Intake & Output 12/01/23 12/02/23 12/02/23 18:59 06:59 18:59 Intake Total 400 Output Total 2400 Balance -2000 Weight 40.5 kg Intake: Hemodialysis 400 Output: Urine 0 Hemodialysis 2400 Other: # Voids 3 - Labs CBC & Chem 7: 12/02/23 06:56 12/02/23 06:56 Labs: Abnormal Lab Results - Last 24 Hours (Table) 12/02/23 12/02/23 Range/Units 06:56 06:56 RBC 3.50 L (4.10-5.20) X 10*6/uL Hgb 10.1 L (12.0-15.0) g/dL Hct 32.4 L (37.2-46.3) % MCHC 31.2 L (32.0-37.0) g/dL RDW 17.2 H (11.5-14.5) % Chloride 94 L (96-109) mmol/L Anion Gap 17.50 H (4.00-12.00) mmol/L BUN 28.1 H (9.0-27.0) mg/dL Creatinine 7.4 A* (0.6-1.5) mg/dL Est GFR (CKD-EPI) 7 L (>=60) BUN/Creatinine Ratio 3.80 L (12.00-20.00) Ratio Assessment and Plan Plan: Assessment: 1. End-stage renal disease maintained on hemodialysis on Wednesday schedule. 2. Mild hyperkalemia secondary to chronic kidney disease. Improved postdialysis. 3. 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 4. Anemia of chronic kidney disease. On Aranesp. 5. Nausea and vomiting. Improved. GI following. 6. Hypertension with chronic kidney disease. Controlled. 7. Chronic diastolic CHF with moderate aortic insufficiency and moderate to severe tricuspid regurgitation. Plan: Hemodialysis tomorrow. Advised patient to maintain low potassium diet multiple times. Patient very hesitant to take potassium binders but will continue to address.
[2023-12-02 13:50] VITALS: BP 97/63; PULSE 88; RESP 16; TEMP 98.5
--- NOTE | 2023-12-02 14:00 | P.PN ---
Subjective Progress Note Date: 12/02/23 Principal diagnosis: Nausea This is a pleasant 33-year-old -[place] female who had presented to the emergency department with complaints of dizziness leg cramps and chest discomfort. She has past medical history including cardiomyopathy, end-stage renal disease on hemodialysis, asthma and hypertension. She also presented with complaints of nausea and vomiting. She was noticed to be hyperkalemic and was admitted to the hospital. She continued to have nausea and vomiting over the last couple days and states Zofran had not been helping. Today she states she is feeling better she has some nausea but no vomiting. Gastroenterology was consulted for intractable nausea. States bowel movements have been normal. Potassium has normalized during her hospital stay. She usually gets dialysis Fridays. She follows with Dr. Johnson. She denies any abdominal pain, fevers or chills. 12/02/2023 Patient seen and examined as a follow-up. She is sitting up in bed. She states she is feeling much better. Nausea has improved with Reglan. She is able to tolerate her diet. No vomiting. No abdominal pain. Objective - Vital Signs Vital signs: Vital Signs Temp 98.2 F 12/02/23 07:24 Pulse 79 12/02/23 07:24 Resp 18 12/02/23 07:24 BP 113/75 12/02/23 07:24 Pulse Ox 100 12/02/23 07:24 FiO2 Intake & Output 12/01/23 12/02/23 12/02/23 18:59 06:59 18:59 Intake Total 400 Output Total 2400 Balance -2000 Weight 40.5 kg Intake: Hemodialysis 400 Output: Urine 0 Hemodialysis 2400 Other: # Voids 3 - Exam General appearance: The patient is alert, oriented, appears in no acute distress. HET: Head is normocephalic and atraumatic. Conjunctiva pink. Sclera anicteric. Neck: Supple without lymphadenopathy. Abdomen: Soft, nontender, nondistended with bowel sounds. No guarding or rigidity. Extremities: Normal skin color and turgor. No pedal edema Skin: No rashes, no jaundice Neurological: No focal deficits. Alert and oriented. - Labs CBC & Chem 7: 12/02/23 06:56 12/02/23 06:56 Assessment and Plan (1) Nausea & vomiting Narrative/Plan: 33-year-old presenting with multiple complaints with multiple comorbidities including end-stage renal disease on hemodialysis. Admitted for with nausea vomiting and hyperkalemia. Nausea and vomiting likely secondary to hyp erkalemia.'s potassium has improved as well as vomiting. Patient still remains nauseated and states Zofran is not working. Will add Reglan, continue with Protonix and told patient to try small amounts of food. Will reevaluate and can change antiemetics as needed. Current Visit: Yes Status: Acute Code(s): R11.2 - NAUSEA WITH VOMITING, UNSPECIFIED SNOMED Code(s): 27897224 (2) ESRD on hemodialysis Current Visit: Yes Status: Acute Code(s): N18.6 - END STAGE RENAL DISEASE; Z99.2 - DEPENDENCE ON RENAL DIALYSIS SNOMED Code(s): 806254426 (3) Hyperkalemia Narrative/Plan: Resolved Current Visit: Yes Status: Acute Code(s): E87.5 - HYPERKALEMIA SNOMED Code(s): 73502463 Plan: 1. Continue symptomatic and supportive care 2. Diet as tolerated 3. Continue Zofran 4. Continue with Reglan, recommend p.o. Reglan at home 5. Continue Protonix 6. No plans on endoscopic evaluation Thank you for this consultation, patient is cleared for discharge from gastroenterology. We will sign off at this time.. Dr. Elias Larios I agree with the dictator's note, documented as a scribe by Pat Ferrara.
== END 2023-12-02 14:17 | disposition home or self-care (01) | DRG 291 ==
LOC: EC 11:08 → 3SCARD 15:32 → 5NMEDONC 11-30 21:27
PROVIDERS: ADMIT Internal Medicine; ATTEND Internal Medicine
PROC: 5A1D70Z Performance of Urinary Filtration, Intermittent, Less than 6 Hours Per Day (ICD-10-PCS; principal; 2023-11-28)
DX: I13.2 Hypertensive heart and chronic kidney disease with heart failure and with stage 5 chronic kidney disease, or end stage renal disease (principal); N18.6 End stage renal disease; E87.1 Hypo-osmolality and hyponatremia; Q61.3 Polycystic kidney, unspecified; R11.2 Nausea with vomiting, unspecified; K21.9 Gastro-esophageal reflux disease without esophagitis; E87.5 Hyperkalemia; E11.22 Type 2 diabetes mellitus with diabetic chronic kidney disease; Z99.2 Dependence on renal dialysis; J44.89 Other specified chronic obstructive pulmonary disease; N28.89 Other specified disorders of kidney and ureter; M89.8X9 Other specified disorders of bone, unspecified site; D63.1 Anemia in chronic kidney disease; I50.32 Chronic diastolic (congestive) heart failure; I08.3 Combined rheumatic disorders of mitral, aortic and tricuspid valves; Z90.89 Acquired absence of other organs; D53.8 Other specified nutritional anemias; R19.7 Diarrhea, unspecified; Z98.890 Other specified postprocedural states; F41.9 Anxiety disorder, unspecified; F32.A Depression, unspecified; I42.8 Other cardiomyopathies; G89.29 Other chronic pain; E55.9 Vitamin D deficiency, unspecified; M54.50 Low back pain, unspecified; Z79.899 Other long term (current) drug therapy; Z87.891 Personal history of nicotine dependence; Z88.1 Allergy status to other antibiotic agents; Z87.19 Personal history of other diseases of the digestive system
CPT/HCPCS: 36415; 71046; 74019; 80048; 80053; 82150; 83605; 83690; 83735; 84132; 84145; 84484; 85025; 85379; 85610; 85730; 87636; 90935; 93005; 94640; 96374; 96375; 96376; 99291

== ENCOUNTER 2023-12-11 21:41 | Inpatient (IN) | payer MEDICARE, BC, OTHER ==
--- NOTE | 2023-12-11 22:09 | ED ---
General Adult HPI - General Chief complaint: Back Pain/Injury Stated complaint: Back/chest pain, SOB, on dialysis Time Seen by Provider: 12/11/23 22:08 Source: patient, RN notes reviewed Mode of arrival: ambulatory Limitations: no limitations - History of Present Illness Initial comments: 33-year-old female presented to the ER with a chief complaint of upper back pain and generalized pain. Patient has a past medical history significant for c hronic kidney disease and is currently on dialysis. Her last treatment was 12-10-2023. She attends dialysis [facility]. Patient states this morning she started to have extreme generalized pain greatest in her upper back. She also is report chest pain and shortness of breath. She states she tried taking OTC tylenol without relief. She denies any fevers, cough, congestion, abdominal pain, constipation/diarrhea or urinary complaints or peripheral edema. - Related Data Home Medications Medication Instructions Recorded Confirmed Albuterol Sulfate [Proair Hfa] 2 puff INHALATION RT-Q6H PRN 01/22/16 11/28/23 Calcium Acetate [PhosLo] 2,668 mg PO TID-W/MEALS 05/01/20 11/28/23 calcitrioL 6 mcg PO DAILY 10/29/21 11/28/23 hydrOXYzine HCL [Atarax] 25 mg PO TID PRN 10/29/21 11/28/23 Acetaminophen Tab [Tylenol] 1,000 mg PO Q6HR PRN 05/26/22 11/28/23 Calcium Acetate [PhosLo] 667 - 1,334 mg PO BID PRN 05/26/22 11/28/23 Docusate [Colace] 100 mg PO BID PRN 03/23/23 11/28/23 Sodium Zirconium Cyclosilicate 10 gm PO DAILY PRN 03/23/23 11/28/23 [Lokelma] Darbepoetin Aamir [Aranesp] 40 mcg SQ DIRECTED 06/01/23 11/28/23 Lactulose 10 gm PO DAILY PRN 09/05/23 11/28/23 carvediloL [Coreg*] 12.5 mg PO BID-W/MEALS 09/05/23 11/28/23 Calcium Carbonate [Tums] 1,500 mg PO ACHS PRN 09/23/23 11/28/23 NIFEdipine XL [Procardia XL] 90 mg PO BID 11/28/23 11/28/23 Previous Rx's Medication Instructions Recorded Ondansetron [Zofran] 4 mg PO Q8HR PRN #20 tab 09/08/23 Metoclopramide HCl [Reglan] 10 mg PO TID PRN #30 tablet 12/02/23 hydrALAZINE HCL [Apresoline] 50 mg PO TID #90 tab 12/02/23 Allergies Allergy/AdvReac Type Severity Reaction Status Date / Time vancomycin Allergy Anaphylaxis Verified 11/28/23 15:07 hydralazine AdvReac Rapid Verified 11/28/23 15:07 Heart Rate WHEN GIVEN THROUGH IV Review of Systems ROS Statement: Those systems with pertinent positive or pertinent negative responses have been documented in the HPI. ROS Other: All systems not noted in ROS Statement are negative. 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 History of Any Multi-Drug Resistant Organisms: None Reported Past Surgical History: Heart Catheterization, Hernia Repair Additional Past Surgical History / Comment(s): 06/14/18 cardiac cath at [facility] to check coronary pressures, 11/15/09 Failed kidney transplant R pelvis, dialysis catheter in and out, current L upper arm AVG, supra pubic hernia repair, transvaginal mesh, wisdom teeth extraction with anesthesia, 2016 failed kidney transplant Past Anesthesia/Blood Transfusion Reactions: No Reported Reaction Additional Past Anesthesia/Blood Transfusion Reaction / Comment(s): Pt has received blood in past without reaction. Past Psychological History: Anxiety, Depression Smoking Status: Never smoker Past Alcohol Use History: None Reported Past Drug Use History: None Reported - Past Family History Father Family Medical History: No Reported History Additional Family Medical History / Comment(s): Father is healthy and is 62 yrs old. Mother Family Medical History: No Reported History Additional Family Medical History / Comment(s): Mother is healthy and is 60 yrs old. General Exam Limitations: no limitations General appearance: alert, in no apparent distress Respiratory exam: Present: wheezes (Bilaterally) Cardiovascular Exam: Present: regular rate, normal rhythm, normal heart sounds. Absent: systolic murmur, diastolic murmur, rubs, gallop, clicks GI/Abdominal exam: Present: soft, normal bowel sounds. Absent: distended, tenderness, guarding, rebound, rigid Back exam: Present: normal inspection Neurological exam: Present: alert, oriented X3, CN II-XII intact Psychiatric exam: Present: normal affect, normal mood Skin exam: Present: warm, dry, intact, normal color, other (dialysis fistula left upper arm). Absent: rash Course Vital Signs 12/11/23 12/12/23 12/12/23 21:43 00:52 01:05 Temperature 99.1 F Pulse Rate 106 H 96 96 Respiratory 18 20 Rate Blood Pressure 156/93 152/91 O2 Sat by Pulse 98 96 Oximetry 12/12/23 12/12/23 12/12/23 01:11 02:18 02:40 Temperature Pulse Rate 99 82 88 Respiratory 18 18 Rate Blood Pressure 140/91 139/92 O2 Sat by Pulse 95 92 L Oximetry Medical Decision Making - Medical Decision Making Was pt. sent in by a medical professional or institution (, PA, PARTS RUNNER, urgent care, hospital, or jail...) When possible be specific @ -No Did you speak to anyone other than the patient for history (EMS, parent, family, police, friend...)? What history was obtained from this source @ -No Did you review nursing and triage notes (agree or disagree)? Why? @ -I reviewed and agree with nursing and triage notes Were old charts reviewed (outside hosp., previous admission, EMS record, old EKG, old radiological studies, urgent care reports/EKG's, jail records)? Report findings @ -No old charts were reviewed Differential Diagnosis (chest pain, altered mental status, abdominal pain women, abdominal pain men, vaginal bleeding, weakness, fever, dyspnea, syncope, headache, dizziness, GI bleed, back pain, seizure, CVA, palpatations, mental health, musculoskeletal)? @ -Differential Back Pain: Strain, zoster, cauda equina syndrome, epidural abscess, vertebral osteomyelitis, discitis, fracture, subluxation, disc herniation, DJD, spinal stenosis, dissection, AAA, pancreatitis, peptic ulcer disease, pyelonephritis, kidney stone, this is not meant to be an all-inclusive list. EKG interpreted by me (3pts min.). @ -As above X-rays interpreted by me (1pt min.). @ -Chest x-ray interpreted by me significant for cardiomegaly no acute pulmonary process. CT interpreted by me (1pt min.). @ -None done U/S interpreted by me (1pt. min.). @ -None done What testing was considered but not performed or refused? (CT, X-rays, U/S, labs)? Why? @ -None What meds were considered but not given or refused? Why? @ -None Did you discuss the management of the patient with other professionals (professionals i.e. DrAndrea, PA, PARTS RUNNER, lab, RT, psych nurse, social scientist, shift commander, teacher, animal park code enforcement officer, dependency case manager)? Give summary @ -None Was smoking cessation discussed for >3mins.? @ -No Was critical care preformed (if so, how long)? @ -No Were there social determinants of health that impacted care today? How? (Homelessness, low income, unemployed, alcoholism, drug addiction, transportation, low edu. Level, literacy, decrease access to med. care, assisted, rehab)? @ -No Was there de-escalation of care discussed even if they declined (Discuss DNR or withdrawal of care, Hospice)? DNR status @ -No What co-morbidities impacted this encounter? (DM, HTN, Smoking, COPD, CAD, Cancer, CVA, ARF, Chemo, Hep., AIDS, mental health diagnosis, sleep apnea, morbid obesity)? @ -ESRD on dialysis. Was patient admitted / discharged? Hospital course, mention meds given and route, prescriptions, significant lab abnormalities, going to OR and other pertinent info. @ -Admitted. 33 year old female presenting to the ER with a chief complaint of back and chest pain. History and physical exam completed. Vitals stable upon arrival. Patient in no signs acute distress and nontoxic-appearing. No focal abdominal tenderness. Bilateral wheezing present. Laboratory studies obtained significant for over 9.6 which is baseline. Sodium 135, BUN 52, creatinine 9.43 which is also baseline as patient has chronic kidney disease. Troponin obtained due to chest pain and shortness of breath which is significant for 0.056 and repeat 0.067. She considered due to end-stage renal disease and jefferya morales troponin. Patient agreeable for admission. [facility]. Nephrology on consult. Patient received IV Dilaudid and DuoNeb breathing treatment in the ER with improvement of symptoms. Patient admitted in stable condition. As discussed with ED attending, Dr. Goode. Undiagnosed new problem with uncertain prognosis? @ -No Drug Therapy requiring intensive monitoring for toxicity (Heparin, Nitro, Insulin, Cardizem)? @ -No Were any procedures done? @ -No Diagnosis/symptom? @ -ESRD, elevated troponin Acute, or Chronic, or Acute on Chronic? @ -chronic Uncomplicated (without systemic symptoms) or Complicated (systemic symptoms)? @ -complicated Side effects of treatment? @ -No Exacerbation, Progression, or Severe Exacerbation? @ -No Poses a threat to life or bodily function? How? (Chest pain, [place], [place], pneumonia, PE, COPD, DKA, ARF, appy, cholecystitis, CVA, Diverticulitis, Homicidal, Suicidal, threat to staff... and all critical care pts) @ -yes - Lab Data Result diagrams: 12/11/23 22:10 12/11/23 22:10 Lab Results 12/11/23 12/11/23 12/11/23 Range/Units 22:10 22:10 22:10 WBC 6.4 (3.8-10.6) k/uL RBC 3.23 L (3.80-5.40) m/uL Hgb 9.6 L (11.4-16.0) gm/dL Hct 31.0 L (34.0-46.0) % MCV 96.2 (80.0-100.0) fL MCH 29.7 (25.0-35.0) pg MCHC 30.9 L (31.0-37.0) g/dL RDW 20.3 H (11.5-15.5) % Plt Count 189 (150-450) k/uL MPV 8.8 Neutrophils % 80 % Lymphocytes % 5 % Monocytes % 5 % Eosinophils % 8 % Basophils % 1 % Neutrophils # 5.1 (1.3-7.7) k/uL Lymphocytes # 0.3 L (1.0-4.8) k/uL Monocytes # 0.3 (0-1.0) k/uL Eosinophils # 0.5 (0-0.7) k/uL Basophils # 0.0 (0-0.2) k/uL Hypochromasia Moderate Anisocytosis Moderate Macrocytosis Slight PT 11.0 (10.0-12.5) sec INR 1.0 (<1.2) APTT 23.3 (22.0-30.0) sec Sodium 135 L (137-145) mmol/L Potassium 5.1 (3.5-5.1) mmol/L Chloride 100 (98-107) mmol/L Carbon Dioxide 20 L (22-30) mmol/L Anion Gap 15 mmol/L BUN 52 H (7-17) mg/dL Creatinine 9.43 H* (0.52-1.04) mg/dL Est GFR (CKD-EPI)AfAm 6 (>60 ml/min/1.73 sqM) Est GFR (CKD-EPI)NonAf 5 (>60 ml/min/1.73 sqM) Glucose 81 (74-99) mg/dL Calcium 9.8 (8.4-10.2) mg/dL Magnesium 2.0 (1.6-2.3) mg/dL Total Bilirubin 0.9 (0.2-1.3) mg/dL AST 30 (14-36) U/L ALT 13 (4-34) U/L Alkaline Phosphatase 50 (38-126) U/L Troponin I (0.000-0.034) ng/mL Total Protein 8.2 (6.3-8.2) g/dL Albumin 4.3 (3.5-5.0) g/dL 12/11/23 12/12/23 Range/Units 22:10 01:22 WBC (3.8-10.6) k/uL RBC (3.80-5.40) m/uL Hgb (11.4-16.0) gm/dL Hct (34.0-46.0) % MCV (80.0-100.0) fL MCH (25.0-35.0) pg MCHC (31.0-37.0) g/dL RDW (11.5-15.5) % Plt Count (150-450) k/uL MPV Neutrophils % % Lymphocytes % % Monocytes % % Eosinophils % % Basophils % % Neutrophils # (1.3-7.7) k/uL Lymphocytes # (1.0-4.8) k/uL Monocytes # (0-1.0) k/uL Eosinophils # (0-0.7) k/uL Basophils # (0-0.2) k/uL Hypochromasia Anisocytosis Macrocytosis PT (10.0-12.5) sec INR (<1.2) APTT (22.0-30.0) sec Sodium (137-145) mmol/L Potassium (3.5-5.1) mmol/L Chloride (98-107) mmol/L Carbon Dioxide (22-30) mmol/L Anion Gap mmol/L BUN (7-17) mg/dL Creatinine (0.52-1.04) mg/dL Est GFR (CKD-EPI)AfAm (>60 ml/min/1.73 sqM) Est GFR (CKD-EPI)NonAf (>60 ml/min/1.73 sqM) Glucose (74-99) mg/dL Calcium (8.4-10.2) mg/dL Magnesium (1.6-2.3) mg/dL Total Bilirubin (0.2-1.3) mg/dL AST (14-36) U/L ALT (4-34) U/L Alkaline Phosphatase (38-126) U/L Troponin I 0.056 H* 0.067 H* (0.000-0.034) ng/mL Total Protein (6.3-8.2) g/dL Albumin (3.5-5.0) g/dL - EKG Data -: EKG Interpreted by Me EKG Comments: EKG taken at 21: 52 showing a sinus rhythm with no acute ST segment or T waves abnormality. LVH present. Ventricular rate 94, KS interval 200, QRS duration 102, QT/QTc 365/417. - Radiology Data Radiology results: report reviewed, image reviewed Disposition Clinical Impression: End stage renal disease, Elevated troponin Disposition: ADMITTED IP TO THIS [facility] Condition: Fair Time of Disposition: 02:24
[2023-12-11 22:26] LABS: Anisocytosis Moderate; Basophils % (A) 1 %; Eosinophils # (A) 0.5 k/uL (0-0.7); Eosinophils % (A) 8 %; HGB 9.6 gm/dL (11.4-16.0); Hypochromasia Moderate; Lymphocytes # (A) 0.3 k/uL (1.0-4.8); Lymphocytes % (A) 5 %; MCH 29.7 pg (25.0-35.0); MCHC 30.9 g/dL (31.0-37.0); MCV 96.2 fL (80.0-100.0); Macrocytosis Slight; Mean Platelet Volume 8.8; Monocytes # (A) 0.3 k/uL (0-1.0); Monocytes % (A) 5 %; Neutrophils # (A) 5.1 k/uL (1.3-7.7); Neutrophils % (A) 80 %; Platelet Count 189 k/uL (150-450); RBC 3.23 m/uL (3.80-5.40); RDW 20.3 % (11.5-15.5); WBC 6.4 k/uL (3.8-10.6)
[2023-12-11 22:35] LABS: ALT 13 U/L (4-34); AST 30 U/L (14-36); African American GFR (CKD) 6 (>60 ml/min/1.73 sqM); Albumin 4.3 g/dL (3.5-5.0); Alkaline Phosphatase 50 U/L (38-126); Anion Gap 15 mmol/L; Blood Urea Nitrogen 52 mg/dL (7-17); Calcium 9.8 mg/dL (8.4-10.2); Carbon Dioxide 20 mmol/L (22-30); Chloride 100 mmol/L (98-107); Glucose 81 mg/dL (74-99); Non-African American GFR(CKD) 5 (>60 ml/min/1.73 sqM); Potassium 5.1 mmol/L (3.5-5.1); Sodium 135 mmol/L (137-145); Total Bilirubin 0.9 mg/dL (0.2-1.3); Total Protein 8.2 g/dL (6.3-8.2)
[2023-12-11 22:58] LABS: Partial Thromboplastin Time 23.3 sec (22.0-30.0)
[2023-12-11] MEDS: ACETAMINOPHEN TAB 325 MG TAB PO STA (22:59)
[2023-12-11] MEDS: HYDROmorphone 0.5 MG/0.5 ML SYRINGE IVP STA (23:07)
--- NOTE | 2023-12-11 23:55 | XR ---
EXAM: XR Chest, 2 Views CLINICAL HISTORY: ITS.REASON XR Reason: pain TECHNIQUE: Frontal and lateral views of the chest. COMPARISON: CXR November 28, 2023. FINDINGS: Lungs: Unremarkable. No consolidation. Pleural space: Unremarkable. No pneumothorax. Heart: Cardiomegaly. Mediastinum: Unremarkable. Normal mediastinal contour. Bones/joints: Unremarkable. No acute fracture. Surgical clips in LEFT upper extremity. IMPRESSION: Cardiomegaly for the patient's age. No acute findings in the chest.
[2023-12-12] MEDS: IPRATROPIUM-ALBUTEROL 3 ML NEB INHALATION STA ×2 (01:04→06:28)
[2023-12-12] MEDS ORDERED: NALOXONE 0.4 MG/ML 1 ML VIAL IV PRN (02:22)
[2023-12-12] MEDS: HYDROmorphone 0.5 MG/0.5 ML SYRINGE IVP PRN (03:40)
[2023-12-12] MEDS: ALBUTEROL HFA INHALER INHALATION PRN (07:28)
--- NOTE | 2023-12-12 12:08 | P.NPCON ---
History of Present Illness - Reason for Consult Consult date: 12/12/23 - Chief Complaint Back Pain - History of Present Illness 33-year-old female presented to the ER with a chief complaint of upper back pain and generalized pain. Patient has a past medical history significant for chronic kidney disease and is currently on dialysis. Her last treatment was 12-10-2023. She attends dialysis [facility]. Patient states this morning she started to have extreme generalized pain greatest in her upper back. She also is report chest pain and shortness of breath. She states she tried taking OTC tylenol without relief. She denies any fevers, cough, congestion, abdominal pain, constipation/diarrhea or urinary complaints or peripheral edema. Vital signs are stable. General: No acute distress. HEENT: Head exam is unremarkable. LUNGS: No audible rhonchi or wheezes. HEART: Rate and Rhythm are regular. ABDOMEN: Nontender. EXTREMITITES: No edema. 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 History of Any Multi-Drug Resistant Organisms: None Reported Past Surgical History: Heart Catheterization, Hernia Repair Additional Past Surgical History / Comment(s): 06/14/18 cardiac cath at [facility] to check coronary pressures, 11/15/09 Failed kidney transplant R pelvis, dialysis catheter in and out, current L upper arm AVG, supra pubic hernia repair, tra nsvaginal mesh, wisdom teeth extraction with anesthesia, 2016 failed kidney transplant Past Anesthesia/Blood Transfusion Reactions: No Reported Reaction Additional Past Anesthesia/Blood Transfusion Reaction / Comment(s): Pt has received blood in past without reaction. Past Psychological History: Anxiety, Depression Additional Psychological History / Comment(s): Pt resides with family. She is independent. She drives. She is disabled. She states she has anxiety and depression but denies suicidal thoughts/ idealations or plans. Smoking Status: Never smoker Past Alcohol Use History: None Reported Additional Past Alcohol Use History / Comment(s): . Past Drug Use History: None Reported Additional Drug Use History / Comment(s): . - Past Family History Father Family Medical History: No Reported History Additional Family Medical History / Comment(s): Father is healthy and is 62 yrs old. Mother Family Medical History: No Reported History Additional Family Medical History / Comment(s): Mother is healthy and is 60 yrs old. Medications and Allergies Home Medications Medication Instructions Recorded Confirmed Type Albuterol Sulfate [Proair Hfa] 2 puff INHALATION RT-Q6H PRN 01/22/16 12/12/23 History Calcium Acetate [PhosLo] 2,668 mg PO TID-W/MEALS 05/01/20 12/12/23 History calcitrioL 6 mcg PO DAILY 10/29/21 12/12/23 History hydrOXYzine HCL [Atarax] 25 mg PO TID PRN 10/29/21 12/12/23 History Acetaminophen Tab [Tylenol] 1,000 mg PO Q6HR PRN 05/26/22 12/12/23 History Calcium Acetate [PhosLo] 667 - 1,334 mg PO BID PRN 05/26/22 12/12/23 History Docusate [Colace] 100 mg PO BID PRN 03/23/23 12/12/23 History Sodium Zirconium Cyclosilicate 10 gm PO DAILY PRN 03/23/23 12/12/23 History [Lokelma] Darbepoetin Aamir [Aranesp] 40 mcg SQ DIRECTED 06/01/23 12/12/23 History Lactulose 10 gm PO DAILY PRN 09/05/23 12/12/23 History carvediloL [Coreg*] 12.5 mg PO BID-W/MEALS 09/05/23 12/12/23 History Ondansetron [Zofran] 4 mg PO Q8HR PRN #20 tab 09/08/23 12/12/23 Rx Calcium Carbonate [Tums] 1,500 mg PO ACHS PRN 09/23/23 12/12/23 History NIFEdipine XL [Procardia XL] 90 mg PO BID 11/28/23 12/12/23 History Metoclopramide HCl [Reglan] 10 mg PO TID PRN #30 tablet 12/02/23 12/12/23 Rx hydrALAZINE HCL [Apresoline] 50 mg PO TID #90 tab 12/02/23 12/12/23 Rx Allergies Allergy/AdvReac Type Severity Reaction Status Date / Time vancomycin Allergy Anaphylaxis Verified 12/12/23 10:14 hydralazine AdvReac Rapid Verified 12/12/23 10:14 Heart Rate WHEN GIVEN THROUGH IV Physical Exam Vitals: Vital Signs Temp Pulse Pulse Resp BP BP Pulse Ox 12/12/23 07:31 96 12/12/23 07:00 99.8 F H 109 H 17 160/87 98 12/12/23 06:35 99 12/12/23 06:29 92 12/12/23 03:27 98.6 F 92 18 164/96 96 12/12/23 02:40 88 18 139/92 92 L 12/12/23 02:18 82 18 140/91 95 12/12/23 01:11 99 12/12/23 01:05 96 12/12/23 00:52 96 20 152/91 96 12/11/23 21:43 99.1 F 106 H 18 156/93 98 Intake and Output 12/11/23 12/12/23 12/12/23 22:59 06:59 14:59 Intake Total 0 Balance 0 Intake: Oral 0 Other: Weight 54.431 kg 54.431 kg Results - Lab Results Most recent lab results Calcium 9.8 mg/dL (8.4-10.2) 12/11/23 22:10 Magnesium 2.0 mg/dL (1.6-2.3) 12/11/23 22:10 12/11/23 22:10 12/11/23 22:10 Assessment and Plan Plan: Assessment: 1. End-stage renal disease maintained on hemodialysis on Wednesday schedule. 2. 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 3. Anemia of chronic kidney disease. On Aranesp. 4. Back Pain 5. Hypertension with chronic kidney disease. Controlled. 6. Chronic diastolic CHF with moderate aortic insufficiency and moderate to severe tricuspid regurgitation. Plan: Hemodialysis tomorrow if still admitted. Resume home BP medications. Clear for discharge from nephrology standpoint
[2023-12-12] MEDS: HYDROcodone/APAP 5-325MG 1 EACH TAB PO PRN (13:31)
[2023-12-12] MEDS ORDERED: SODIUM ZIRCONIUM CYCLOSILICATE 10 GM PACKET PO PRN (14:12)
[2023-12-12] MEDS ORDERED: DOCUSATE 100 MG CAP PO PRN (14:12)
[2023-12-12] MEDS ORDERED: METOCLOPRAMIDE 10 MG TAB PO PRN (14:12)
[2023-12-12] MEDS ORDERED: LACTULOSE 200 GM/300 ML (FROM 1/2 GAL JUG) PO PRN (14:12)
[2023-12-12] MEDS ORDERED: CALCIUM CARBONATE 500 MG CHEWABLE PO PRN (14:12)
[2023-12-12] MEDS ORDERED: ALBUTEROL HFA INHALER INHALATION PRN (14:12)
[2023-12-12] MEDS: ACETAMINOPHEN TAB 500 MG TAB PO PRN (15:14)
[2023-12-12] MEDS: DARBEPOETIN ALFA 40 MCG/0.4 ML SYRINGE SQ SCH (15:15)
[2023-12-12] MEDS: hydrOXYzine HCL 25 MG TAB PO PRN (16:09)
[2023-12-12] MEDS: hydrALAZINE HCL 50 MG TAB PO SCH (16:09)
[2023-12-12] MEDS: carvediloL 12.5 MG TAB PO SCH (18:31)
[2023-12-12] MEDS: CALCIUM ACETATE 667 MG TAB PO SCH (18:31)
[2023-12-12] MEDS: IPRATROPIUM-ALBUTEROL 3 ML NEB INHALATION SCH (19:40)
[2023-12-12] MEDS: OSELTAMIVIR 30 MG CAP PO SCH (21:31)
[2023-12-12] MEDS: NIFEdipine XL 90 MG TAB.ER.24 PO SCH (21:31)
--- NOTE | 2023-12-13 00:50 | HP ---
HISTORY AND PHYSICAL CHIEF COMPLAINT: Fall and as well as back pain and neck pain. HISTORY OF PRESENT ILLNESS: This is a 33-year-old woman with a past medical history of multiple medical problems, is on hemodialysis for end-stage renal disease. Last treatment was on 12/10/2023 and her schedule is Wednesday, Wednesday, Wednesday. The patient apparently complaining of some back pain and some shortness of breath. The patient was admitted for further evaluation and treatment. D-dimer is not available. There is no history of any fever, rigors, or chills. PAST MEDICAL HISTORY: Reviewed include asthma, CHF, hypertension, ESRD. Rest of the history and rest of the chart is also reviewed. HOME MEDICATIONS: Reviewed include Atarax. Dose and rest of medications reviewed. ALLERGIES: Vancomycin. FAMILY HISTORY: No history of heart disease or strokes in the family. SOCIAL HISTORY: No history of smoking, or alcohol. REVIEW OF SYSTEMS: 14-point review is negative except as mentioned earlier. PHYSICAL EXAMINATION: VITAL SIGNS: Pulse is 109, blood pressure 160/87, respirations 17, T-max 99.8. HEENT: Conjunctivae normal. NECK: No JVD. CARDIOVASCULAR: S1, S2. RESPIRATIONS: Breath sounds diminished at the bases. A few scattered rhonchi. ABDOMEN: Soft, nontender. LEGS: No edema. NERVOUS SYSTEM: Nonfocal. LABORATORY DATA: Hemoglobin 9.6. Troponin 0.056. The chest x-ray, cardiomegaly and increased bronchovascular markings. ASSESSMENT: 1. Shortness of breath and back pain for evaluation, rule out acute pulmonary embolism. 2. Possible acute asthma exacerbation. 3. End-stage renal disease, on hemodialysis. 4. History of congestive heart failure. 5. History of polycystic kidney disease with failed kidney transplant. 6. History of cardiac catheterization. 7. Elevated troponin, which was rather chronic at 0.056. RECOMMENDATIONS AND DISCUSSION: In this 33-year-old woman who presented with multiple complex medical issues, I recommend to continue the current medications. I would recommend D-dimer stat and if the D-dimer is positive, I would definitely obtain a CT angio of chest, otherwise, symptomatic pain management will be ordered with Dilaudid as well as [place]. Resume home medications with bronchodilators. Nephrology consultation. Cardiology consultation. Prognosis guarded because of multiple complex medical issues and further recommendations to follow. Home medications will be continued once they are confirmed. The patient will require more than 2 nights stay for delineation of treatment of the above-mentioned multiple medical issues for full admit. ELISABETH / SHERITAN: [id number] /
[2023-12-13] MEDS: IPRATROPIUM-ALBUTEROL 3 ML NEB INHALATION PRN (01:42)
--- NOTE | 2023-12-13 10:29 | P.CRDCN ---
History of Present Illness Consult date: 12/13/23 Reason for Consult (text): tELEVATED TROPONINs History of present illness: History of present illness: This is a 33-year-old female patient of Dr. Sera Larios with past medical history of end-stage renal disease on hemodialysis, severe hypertension, LVH, severe pulmonary hypertension. We have been asked to evaluate the patient for elevated troponins. Patient states she came into the hospital as she developed severe chest pain and shortness of breath. She complains of cough with yellow sputum production. She has had no fever. The chest pain is a new onset and is worse with coughing. She did not have this recently. She denies having any lightheadedness or dizziness and no palpitations. She has had no syncopal episodes. She denies any abdominal pain, no nausea or vomiting. No recent blood in her tarriness in her stool. She denies history of CVA or seizures. She has not missed any hemodialysis. Her last treatment was on Wednesday. EKG sinus rhythm, LVH. Chest x-ray: Cardiomegaly. No acute findings. WBC 6.4, hemoglobin 9.6, platelet count 189. INR 1. D-dimer 0.34. Sodium 135, potassium 5.1, BUN 52 creatinine 9.43. Troponin 0.056 and 0.067. Influenza A detected. Influenza B not detected, RSV not detected, COVID-19 not detected. Home cardiac medications: Coreg 12.5 mg twice daily, hydralazine 50 mg 3 times daily, nifedipine XL 90 mg twice daily. Echocardiogram performed on 06/18/2023 in the office revealed EF 45 to 50%. Moderate concentric left ventricular hypertrophy. Moderate to severe aortic regurgitation. Mild to moderate mitral regurgitation. Moderate tricuspid regurgitation. PASP 50 mmHg. Moderate to severe pulmonic regurgitation. Review Of Systems: At the time of my exam: CONSTITUTIONAL: Denies fever or chills. HEENT: Denies blurred vision, vision changes, or eye pain. Denies hemoptysis CARDIOVASCULAR: Denies chest pain. Denies orthopnea. Denies PND. Denies palpitations RESPIRATORY: Denies shortness of breath. GASTROINTESTINAL: Denies abdominal pain. Denies nausea or vomiting. HEMATOLOGIC: Denies bleeding disorders. GENITOURINARY: Denies any blood in urine. SKIN: Denies pruitis. Denies rash. Physical examination: Gen: This is a 33-year-old female in no acute distress VS: reviewed, blood pressure 149/86, heart rate 98, pulse ox 94% on 2 and half liters nasal cannula, temperature max 102. HEENT: Head is atraumatic, normocephalic. Pupils equal, round. Sclerae is anicteric. NECK: Supple. No JVD. LUNGS: Clear to auscultation. No wheezes or rhonchi. No intercostal retractio ns. HEART: Regular rate and rhythm. Systolic murmur. ABDOMEN: Soft No tenderness. EXTREMITIES: No pedal edema. No calf tenderness. NEUROLOGICAL: Patient is awake, alert and oriented x3. Assessment: Influenza A with fever, cough, and sputum production Elevated troponin which are chronically elevated related to renal failure Acute coronary syndrome has been ruled out, chest pain is noncardiac End-stage renal disease on hemodialysis Wednesday Hypertension LVH Severe pulmonary hypertension Anemia of chronic kidney disease Plan: Resume patient's home cardiac medications Obtain 2-D echocardiogram and Doppler study to assess cardiac structure and function Further recommendations to follow based upon clinical course Thank you kindly for this consultation. Nurse practitioner note has been reviewed, I agree with documented findings and plan of care. Patient was seen and examined. 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 History of Any Multi-Drug Resistant Organisms: None Reported Past Surgical History: Heart Catheterization, Hernia Repair Additional Past Surgical History / Comment(s): 06/14/18 cardiac cath at [facility] to check coronary pressures, 11/15/09 Failed kidney transplant R pelvis, dialysis catheter in and out, current L upper arm AVG, supra pubic hernia repair, transvaginal mesh, wisdom teeth extraction with anesthesia, 2017 failed kidney transplant Past Anesthesia/Blood Transfusion Reactions: No Reported Reaction Additional Past Anesthesia/Blood Transfusion Reaction / Comment(s): Pt has rec eived blood in past without reaction. Past Psychological History: Anxiety, Depression Additional Psychological History / Comment(s): Pt resides with family. She is independent. She drives. She is disabled. She states she has anxiety and depression but denies suicidal thoughts/ idealations or plans. Smoking Status: Never smoker Past Alcohol Use History: None Reported Additional Past Alcohol Use History / Comment(s): . Past Drug Use History: None Reported Additional Drug Use History / Comment(s): . - Past Family History Father Family Medical History: No Reported History Additional Family Medical History / Comment(s): Father is healthy and is 62 yrs old. Mother Family Medical History: No Reported History Additional Family Medical History / Comment(s): Mother is healthy and is 60 yrs old. Medications and Allergies Home Medications Medication Instructions Recorded Confirmed Type Albuterol Sulfate [Proair Hfa] 2 puff INHALATION RT-Q6H PRN 01/22/16 12/12/23 History Calcium Acetate [PhosLo] 2,668 mg PO TID-W/MEALS 05/01/20 12/12/23 History calcitrioL 6 mcg PO DAILY 10/29/21 12/12/23 History hydrOXYzine HCL [Atarax] 25 mg PO TID PRN 10/29/21 12/12/23 History Acetaminophen Tab [Tylenol] 1,000 mg PO Q6HR PRN 05/26/22 12/12/23 History Calcium Acetate [PhosLo] 667 - 1,334 mg PO BID PRN 05/26/22 12/12/23 History Docusate [Colace] 100 mg PO BID PRN 03/23/23 12/12/23 History Sodium Zirconium Cyclosilicate 10 gm PO DAILY PRN 03/23/23 12/12/23 History [Lokelma] Darbepoetin Aamir [Aranesp] 40 mcg SQ DIRECTED 06/01/23 12/12/23 History Lactulose 10 gm PO DAILY PRN 09/05/23 12/12/23 History carvediloL [Coreg*] 12.5 mg PO BID-W/MEALS 09/05/23 12/12/23 History Ondansetron [Zofran] 4 mg PO Q8HR PRN #20 tab 09/08/23 12/12/23 Rx Calcium Carbonate [Tums] 1,500 mg PO ACHS PRN 09/23/23 12/12/23 History NIFEdipine XL [Procardia XL] 90 mg PO BID 11/28/23 12/12/23 History Metoclopramide HCl [Reglan] 10 mg PO TID PRN #30 tablet 12/02/23 12/12/23 Rx hydrALAZINE HCL [Apresoline] 50 mg PO TID #90 tab 12/02/23 12/12/23 Rx Allergies Allergy/AdvReac Type Severity Reaction Status Date / Time vancomycin Allergy Anaphylaxis Verified 12/12/23 10:14 hydralazine AdvReac Rapid Verified 12/12/23 10:14 Heart Rate WHEN GIVEN THROUGH IV Physical Exam Vitals: Vital Signs Temp Pulse Pulse Resp BP Pulse Ox 12/13/23 02:12 98 16 12/13/23 02:00 100.1 F H 95 16 149/86 94 L 12/13/23 01:50 98 12/13/23 01:44 97 12/12/23 21:31 98 16 12/12/23 19:54 98.5 F 98 16 159/85 91 L 12/12/23 18:31 146/86 12/12/23 16:47 98.9 F 12/12/23 15:00 102.0 F H 110 H 16 168/87 91 L Intake and Output 12/12/23 12/13/23 12/13/23 22:59 06:59 14:59 Intake Total 240 Balance 240 Intake: Oral 240 Other: # Voids 0 1 Results 12/11/23 22:10 12/11/23 22:10 Current Medications Generic Name Dose Route Start Last Admin Trade Name Freq PRN Reason Stop Dose Admin Acetaminophen 1,000 mg 12/12/23 14:12 12/13/23 02:48 Acetaminophen Tab 500 Mg Tab PO 1,000 mg Q6HR PRN Administration Pain or Fever > 100.5 Hydrocodone Bitart/Acetaminophen 1 each 12/12/23 12:13 12/13/23 06:43 Hydrocodone/Apap 5-325mg 1 Each Tab PO 1 each Q6HR PRN Administration Pain Albuterol Sulfate 1 puff 12/12/23 06:09 12/12/23 16:03 Albuterol Hfa Inhaler INHALATION 1 puff RT-QID PRN Administration Shortness Of Breath Or Wheezing Albuterol Sulfate 2 puff 12/12/23 14:12 Albuterol Hfa Inhaler INHALATION RT-Q6H PRN Shortness Of Breath Albuterol/Ipratropium 3 ml 12/12/23 20:00 12/12/23 19:40 Ipratropium-Albuterol 3 Ml Neb INHALATION Not Given RT-TID SELENE Albuterol/Ipratropium 3 ml 12/12/23 14:14 12/13/23 01:42 Ipratropium-Albuterol 3 Ml Neb INHALATION 3 ml RT-TID PRN Administration Shortness Of Breath Or Wheezing Calcitriol 6 mcg 12/13/23 09:00 Calcitriol 0.25 Mcg Cap PO DAILY SELENE Calcium Acetate 2,668 mg 12/12/23 17:30 12/12/23 18:31 Calcium Acetate 667 Mg Tab PO 2,668 mg TID-W/MEALS SELENE Administration Calcium Carbonate/Glycine 1,500 mg 12/12/23 14:12 Calcium Carbonate 500 Mg Chewable PO ACHS PRN GI Upset Carvedilol 12.5 mg 12/12/23 17:30 12/13/23 06:41 Carvedilol 12.5 Mg Tab PO 12.5 mg BID-W/MEALS SELENE Administration Darbepoetin Aamir 40 mcg 12/12/23 14:15 12/12/23 15:15 Darbepoetin Aamir 40 Mcg/0.4 Ml Syringe SQ 40 mcg DIRECTED SELENE Administration Docusate Sodium 100 mg 12/12/23 14:12 Docusate 100 Mg Cap PO BID PRN Constipation Hydralazine HCl 50 mg 12/12/23 16:00 12/12/23 21:31 Hydralazine Hcl 50 Mg Tab PO 50 mg TID SELENE Administration Hydromorphone HCl 0.5 mg 12/12/23 02:05 12/13/23 01:02 Hydromorphone 0.5 Mg/0.5 Ml Syringe IVP 0.5 mg Q4HR PRN Administration Pain Scale 7 to 10 Hydroxyzine HCl 25 mg 12/12/23 14:12 12/12/23 16:09 Hydroxyzine Hcl 25 Mg Tab PO 25 mg TID PRN Administration Anxiety Lactulose 10 gm 12/12/23 14:12 Lactulose 200 Gm/300 Ml (From 1/2 Gal Jug) PO DAILY PRN Constipation Metoclopramide HCl 10 mg 12/12/23 14:12 Metoclopramide 10 Mg Tab PO TID PRN Nausea Naloxone HCl 0.2 mg 12/12/23 02:22 Naloxone 0.4 Mg/Ml 1 Ml Vial IV Q2M PRN Opioid Reversal Nifedipine 90 mg 12/12/23 21:00 12/12/23 21:31 Nifedipine Xl 90 Mg Tab.Er.24 PO 90 mg BID SELENE Administration Ondansetron HCl 4 mg 12/12/23 02:22 Ondansetron 4 Mg/2 Ml Vial IVP Q8HR PRN Nausea And Vomiting Oseltamivir Phosphate 30 mg 12/12/23 21:00 12/12/23 21:31 Oseltamivir 30 Mg Cap PO 12/17/23 09:01 30 mg BID SELENE Administration Protocol Sodium Zirconium Cyclosilicate 10 gm 12/12/23 14:12 Sodium Zirconium Cyclosilicate 10 Gm Packet PO DAILY PRN high potassium Intake and Output 12/12/23 12/13/23 12/13/23 22:59 06:59 14:59 Intake Total 240 Balance 240 Intake: Oral 240 Other: # Voids 0 1 12/11/23 22:10 12/11/23 22:10
[2023-12-13 10:50] LABS: Basophils # (A) 0.05 X 10*3/uL (0.00-0.10); Basophils % (A) 0.7 %; Eosinophils % (A) 2.9 %; HCT 32.4 % (37.2-46.3); HGB 9.8 g/dL (12.0-15.0); Lymphocytes # (A) 0.48 X 10*3/uL (0.90-5.00); Lymphocytes % (A) 6.9 %; MCH 28.9 pg (27.0-32.0); MCHC 30.2 g/dL (32.0-37.0); MCV 95.6 FL (80.0-97.0); Mean Platelet Volume 10.3 FL (9.5-12.2); Monocytes # (A) 0.48 X 10*3/uL (0.20-1.00); Monocytes % (A) 6.9 %; NRBC Per 100 WBC 0 X 10*3/uL (0.00-0.01); Neutrophils # (A) 5.66 X 10*3/uL (1.80-7.70); Platelet Count 176 X 10*3/uL (140-440); RBC 3.39 X 10*6/uL (4.10-5.20); RDW 20.2 % (11.5-14.5); WBC 6.91 X 10*3/uL (4.50-10.00)
[2023-12-13 12:39] LABS: Calcium 8.4 mg/dL (8.7-10.3); Carbon Dioxide 13.9 mmol/L (21.6-31.8); Chloride 92 mmol/L (96-109); Glucose 89 mg/dL (70-110); Sodium 131 mmol/L (135-145)
--- NOTE | 2023-12-13 12:43 | P.PN ---
Subjective patient is seen for follow-up for end-stage renal disease. patient tested positive for influenza A. Complaining of shortness of breath. no significant CHF noted on chest x-ray. Objective - Vital Signs Vital signs: Vital Signs Temp 99.5 F 12/13/23 07:00 Pulse 89 12/13/23 07:00 Resp 16 12/13/23 07:00 BP 126/73 12/13/23 07:00 Pulse Ox 97 12/13/23 07:47 FiO2 2 12/13/23 07:47 Intake & Output 12/12/23 12/13/23 12/13/23 18:59 06:59 18:59 Intake Total 240 Balance 240 Intake: Oral 240 Other: # Voids 1 1 - Exam patient is awake, comfortable, no acute distress Examination of the heart S1 and S2 Examination of the lungs bilateral breath sounds are heard Abdomen is soft nontender Examination of lower extremity shows no evidence of edema SMELTER CHARGER exam grossly intact - Labs CBC & Chem 7: 12/13/23 06:42 12/13/23 06:42 Labs: Abnormal Lab Results - Last 24 Hours (Table) 12/12/23 12/13/23 12/13/23 Range/Units 15:18 06:42 06:42 RBC 3.39 L (4.10-5.20) X 10*6/uL Hgb 9.8 L (12.0-15.0) g/dL Hct 32.4 L (37.2-46.3) % MCHC 30.2 L (32.0-37.0) g/dL RDW 20.2 H (11.5-14.5) % Lymphocytes # 0.48 L (0.90-5.00) X 10*3/uL Sodium 131 L (135-145) mmol/L Potassium 6.0 H (3.5-5.5) mmol/L Chloride 92 L (96-109) mmol/L Carbon Dioxide 13.9 L (21.6-31.8) mmol/L Anion Gap 25.10 H (4.00-12.00) mmol/L BUN 71.0 H (9.0-27.0) mg/dL Creatinine 14.2 A* (0.6-1.5) mg/dL Est GFR (CKD-EPI) 3 L (>=60) BUN/Creatinine Ratio 5.00 L (12.00-20.00) Ratio Calcium 8.4 L (8.7-10.3) mg/dL Influenza Type A (PCR) Detected A (Not Detectd) Assessment and Plan Assessment: 1. End-stage renal disease maintained on hemodialysis on Wednesday schedule. 2. 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 3. Anemia of chronic kidney disease. On Aranesp. 4. Back Pain 5. Hypertension with chronic kidney disease. Controlled. 6. Chronic diastolic CHF with moderate aortic insufficiency and moderate to severe tricuspid regurgitation. 7. Influenza A infection Plan: maintain hemodialysis on Wednesday with history of Wednesday schedule.
[2023-12-13] MEDS: ONDANSETRON 4 MG/2 ML VIAL IVP PRN (17:36)
--- NOTE | 2023-12-13 22:21 | PN ---
PROGRESS NOTE DATE OF SERVICE: 12/13/2023 SUBJECTIVE: This 33-year-old woman was admitted with shortness of breath and back pain, is flu positive at this time. No chest pain, no palpitations. The patient also had possible acute asthma exacerbation. No fever. Cough is reported with some sputum. OBJECTIVE: VITAL SIGNS: Pulse 89, blood pressure 130/70, respirations 16. CHEST: Few scattered rhonchi. ABDOMEN: Soft. NERVOUS SYSTEM: Nonfocal. LABORATORY DATA: Hemoglobin 9.8, creatinine noted. Flu is positive. ASSESSMENT: 1. Shortness of breath with back pain, possibly influenza A. 2. Acute asthma exacerbation. 3. End-stage renal disease, on hemodialysis. 4. History of CHF. 5. History of polycystic kidney with failed kidney transplant. 6. History of cardiac catheterization. 7. Elevated troponin, which is rather chronic at 0.056. RECOMMENDATIONS: Recommended to continue current management, continue symptomatic treatment. Continue current medications. I would recommend repeat chest x-ray to rule out any obvious pneumonia. Continue with Tamiflu. Closely follow with multiple consultants. Guarded prognosis. Further recommendations to follow. MMODL / IJN: [id number] /
[2023-12-14 01:51] VITALS: RESP 16
[2023-12-14 07:36] VITALS: BP 115/62; PULSE 90; TEMP 98.9
--- NOTE | 2023-12-14 09:10 | CA ---
Transthoracic Echo Report Name: Rosi Winslow Age: 33 Gender: F : 1990 Exam Date: 12/13/2023 11:44 Exam Location: [facility] Ht (in): 62 Wt (lb): 120 Ordering Physician: Malini Beaver Attending/Referring Phys: [id number], [employer] Specialist Kelli Zambrano RDCS Procedure CPT: Indications: LVF Cardiac Hx: Technical Quality: Fair Contrast 1: Total Dose (mL): Contrast 2: Total Dose (mL): MEASUREMENTS (Male / Female) Normal Values 2D ECHO LV Diastolic Diameter PLAX 5.0 cm 4.2 - 5.9 / 3.9 - 5.3 cm LV Systolic Diameter PLAX 3.9 cm IVS Diastolic Thickness 1.8 cm 0.6 - 1.0 / 0.6 - 0.9 cm LVPW Diastolic Thickness 1.9 cm 0.6 - 1.0 / 0.6 - 0.9 cm LV Relative Wall Thickness 0.7 RV Internal Dim ED PLAX 3.2 cm LV Diastolic Volume MOD BP 117.0 cm??? 67 - 155 / 56 - 104 cm??? LV Systolic Volume MOD BP 69.1 cm??? 22 - 58 / 19 - 49 cm??? LV Ejection Fraction MOD BP 40.9 % >= 55 % LV Cardiac Index MOD BP 2723.2 cm???/min???m??? LV Diastolic Volume MOD 4C 117.5 cm??? LV Systolic Volume MOD 4C 57.0 cm??? LV Ejection Fraction MOD 4C 51.5 % LV Cardiac Index MOD 4C 3439.7 cm???/min???m??? LV Diastolic Length 4C 8.5 cm LV Systolic Length 4C 7.0 cm LV Diastolic Volume MOD 2C 112.3 cm??? LV Systolic Volume MOD 2C 79.2 cm??? LV Ejection Fraction MOD 2C 29.4 % LV Cardiac Index MOD 2C 1880.0 cm???/min???m??? LV Diastolic Length 2C 8.2 cm LV Systolic Length 2C 7.5 cm LA Volume 69.3 cm??? 18 - 58 / 22 - 52 cm??? LA Volume Index 44.8 cm???/m??? 16 - 28 cm???/m??? DOPPLER AV Peak Velocity 236.7 cm/s AV Peak Gradient 22.4 mmHg AV Mean Velocity 161.4 cm/s AV Mean Gradient 11.4 mmHg AV Velocity Time Integral 38.1 cm AI Peak Velocity 527.6 cm/s AI Peak Gradient 111.4 mmHg AI Pressure Half Time 516.2 ms LVOT Peak Velocity 152.2 cm/s LVOT Peak Gradient 9.3 mmHg LVOT Velocity Time Integral 31.1 cm MV Peak Velocity 148.8 cm/s MV Peak Gradient 8.9 mmHg MV Mean Velocity 86.4 cm/s MV Mean Gradient 3.6 mmHg MV Velocity Time Integral 29.6 cm MV Area PHT 5.7 cm??? Mitral E Point Velocity 126.1 cm/s Mitral A Point Velocity 83.1 cm/s Mitral E to A Ratio 1.5 MV Deceleration Time 132.6 ms MV E' Velocity 4.8 cm/s Mitral E to MV E' Ratio 26.5 TR Peak Velocity 364.6 cm/s TR Peak Gradient 53.2 mmHg Right Atrial Pressure 20.0 mmHg Pulmonary Artery Systolic Pressu 73.2 mmHg Right Ventricular Systolic Press 73.2 mmHg FINDINGS Left Ventricle Severely increased left ventricular wall thickness. Left ventricular cavity size normal. Mildly increased left ventricular diastolic volume. Moderately increased left ventricular systolic volume. Left ventricular ejection fraction is estimated at 50-55 %. Grade 2 diastolic dysfunction. Right Ventricle Normal right ventricular size and function. Severe pulmonary hypertension. Right ventricular systolic pressure estimated at 73 mm hg. Right Atrium Moderate right atrial dilatation. Left Atrium Moderately increased left atrial volume. Mildly increased left atrial area. Mitral Valve Structurally normal mitral valve. Mild to moderate mitral regurgitation. Aortic Valve Mild aortic stenosis with a peak gradient of 22 mmHg and a mean gradient of 11 mmHg. moderate aortic regurgitation. Tricuspid Valve Structurally normal tricuspid valve. Severe tricuspid regurgitation. Pulmonic Valve Structurally normal pulmonic valve. [id number] pulmonic regurgitation. Pericardium No pericardial effusion. Aorta Normal size aortic root and proximal ascending aorta. CONCLUSIONS 1. Left ventricle systolic function borderline normal with severe hypertrophy 2. Severe tricuspid regurgitation and severe pulmonary hypertension 3. Moderate aortic regurgitation 4. Mild to moderate mitral regurgitation Previewed by: Dr. Misti Mast MD (Electronically Signed) Final Date: 14 Dec 2023 09:09
[2023-12-14 09:40] LABS: Anisocytosis Moderate; Basophils % (A) 1 %; Eosinophils # (A) 0.1 k/uL (0-0.7); Eosinophils % (A) 2 %; HCT 28.4 % (34.0-46.0); HGB 9.1 gm/dL (11.4-16.0); Hypochromasia Slight; Lymphocytes # (A) 0.7 k/uL (1.0-4.8); Lymphocytes % (A) 16 %; MCH 30.6 pg (25.0-35.0); MCV 95.8 fL (80.0-100.0); Macrocytosis Slight; Monocytes # (A) 0.3 k/uL (0-1.0); Monocytes % (A) 6 %; Neutrophils # (A) 3.4 k/uL (1.3-7.7); Neutrophils % (A) 72 %; Platelet Count 153 k/uL (150-450); RBC 2.96 m/uL (3.80-5.40); RDW 20.1 % (11.5-15.5); WBC 4.7 k/uL (3.8-10.6)
[2023-12-14 09:58] LABS: Anion Gap 11 mmol/L; Blood Urea Nitrogen 49 mg/dL (7-17); Carbon Dioxide 26 mmol/L (22-30); Chloride 94 mmol/L (98-107); Glucose 96 mg/dL (74-99); Potassium 4.3 mmol/L (3.5-5.1); Sodium 131 mmol/L (137-145)
[2023-12-14 10:05] LABS: African American GFR (CKD) 5 (>60 ml/min/1.73 sqM); Non-African American GFR(CKD) 4 (>60 ml/min/1.73 sqM)
[2023-12-14] MEDS ORDERED: HYDROmorphone 0.5 MG/0.5 ML SYRINGE ONE (11:22)
--- NOTE | 2023-12-14 13:07 | P.PN ---
Subjective patient is seen for follow-up for end-stage renal disease. patient tested positive for influenza A. shortness of breath improved post dialysis. UF 1.1 L yesterday. no significant CHF noted on chest x-ray. Objective - Vital Signs Vital signs: Vital Signs Temp 98.9 F 12/14/23 07:00 Pulse 90 12/14/23 07:00 Resp 16 12/14/23 07:00 BP 115/62 12/14/23 07:00 Pulse Ox 94 L 12/14/23 09:17 FiO2 2 12/13/23 07:47 Intake & Output 12/13/23 12/14/23 12/14/23 18:59 06:59 18:59 Intake Total 650 Output Total 1155 Balance -505 Intake: Hemodialysis 650 Output: Hemodialysis 1155 Other: # Voids 1 0 - Exam patient is awake, comfortable, no acute distress Examination of lower extremity shows no evidence of edema [employer]ING [employer]ATOR exam grossly intact - Labs CBC & Chem 7: 12/14/23 09:05 12/14/23 09:05 Labs: Abnormal Lab Results - Last 24 Hours (Table) 12/13/23 12/14/23 12/14/23 Range/Units 06:42 09:05 09:05 RBC 2.96 L (3.80-5.40) m/uL Hgb 9.1 L (11.4-16.0) gm/dL Hct 28.4 L (34.0-46.0) % RDW 20.1 H (11.5-15.5) % Lymphocytes # 0.7 L (1.0-4.8) k/uL Sodium 131 L (137-145) mmol/L Chloride 94 L (98-107) mmol/L BUN 49 H (7-17) mg/dL Creatinine 10.90 H* (0.52-1.04) mg/dL Calcium 7.0 L (8.4-10.2) mg/dL Procalcitonin 1.65 H (0.02-0.09) ng/mL Microbiology - Last 24 Hours (Table) 12/12/23 15:01 Blood Culture - Preliminary Blood 12/12/23 15:04 Blood Culture - Preliminary Blood Assessment and Plan Assessment: 1. End-stage renal disease maintained on hemodialysis on Wednesday schedule. 2. 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 3. Anemia of chronic kidney disease. On Aranesp. 4. Back Pain 5. Hypertension with chronic kidney disease. Controlled. 6. Chronic diastolic CHF with moderate aortic insufficiency and moderate to severe tricuspid regurgitation. 7. Influenza A infection Plan: maintain hemodialysis on Wednesday with history of Wednesday schedule.
--- NOTE | 2023-12-14 14:11 | P.PN ---
Subjective Progress Note Date: 12/14/23 Reason for Consult (text): tELEVATED TROPONINs History of present illness: History of present illness: This is a 33-year-old female patient of Dr. Sera Larios with past medical history of end-stage renal disease on hemodialysis, severe hypertension, LVH, severe pulmonary hypertension. We have been asked to evaluate the patient for elevated troponins. Patient states she came into the hospital as she developed severe chest pain and shortness of breath. She complains of cough with yellow sputum production. She has had no fever. The chest pain is a new onset and is worse with coughing. She did not have this recently. She denies having any lighth eadedness or dizziness and no palpitations. She has had no syncopal episodes. She denies any abdominal pain, no nausea or vomiting. No recent blood in her tarriness in her stool. She denies history of CVA or seizures. She has not missed any hemodialysis. Her last treatment was on Wednesday. EKG sinus rhythm, LVH. Chest x-ray: Cardiomegaly. No acute findings. WBC 6.4, hemoglobin 9.6, platelet count 189. INR 1. D-dimer 0.34. Sodium 135, potassium 5.1, BUN 52 creatinine 9.43. Troponin 0.056 and 0.067. Influenza A detected. Influenza B not detected, RSV not detected, COVID-19 not detected. Home cardiac medications: Coreg 12.5 mg twice daily, hydralazine 50 mg 3 times daily, nifedipine XL 90 mg twice daily. Echocardiogram performed on 06/18/2023 in the office revealed EF 45 to 50%. Moderate concentric left ventricular hypertrophy. Moderate to severe aortic regurgitation. Mild to moderate mitral regurgitation. Moderate tricuspid regurgitation. PASP 50 mmHg. Moderate to severe pulmonic regurgitation. 12/13 Patient is seen today in follow-up. She continues to have cough. She states she is feeling little bit better today. She states she has chest pain when she coughs or takes a deep breath. Blood pressure 115/62, heart rate 90, pulse ox 94% on 2 and half liters nasal cannula. Repeat blood work reveals hemoglobin 9.1. Sodium 131, potassium 4.3, BUN 49 and creatinine 10.Echocardiogram reveals EF of 50 to 55% with severe hypertrophy. Severe tricuspid regurgitation and severe pulmonary hypertension. Moderate aortic regurgitation. Mild to moderate mitral regurgitation. Physical examination: Gen: This is a 33-year-old female in no acute distress VS: reviewed, blood pressure 149/86, heart rate 98, pulse ox 94% on 2 and half liters nasal cannula, temperature max 102. HEENT: Head is atraumatic, normocephalic. Pupils equal, round. Sclerae is anicteric. NECK: Supple. No JVD. LUNGS: Clear to auscultation. No wheezes or rhonchi. No intercostal retractions. HEART: Regular rate and rhythm. Systolic murmur. ABDOMEN: Soft No tenderness. EXTREMITIES: No pedal edema. No calf tenderness. NEUROLOGICAL: Patient is awake, alert and oriented x3. Assessment: Influenza A with fever, cough, and sputum production Elevated troponin which are chronically elevated related to renal failure Acute coronary syndrome has been ruled out, chest pain is noncardiac End-stage renal disease on hemodialysis Wednesday Hypertension LVH Severe pulmonary hypertension Anemia of chronic kidney disease Plan: Resume patient's home cardiac medications Cardiology will sign off this case and follow on an as-needed basis. Please reconsult for any new concerns. Patient may follow-up in the office with Dr. Sera Larios in one to 2 weeks. Nurse practitioner note has been reviewed, I agree with documented findings and plan of care. Patient was seen and examined. Objective - Vital Signs Vital signs: Vital Signs Temp 98.4 F 12/14/23 06:19 Pulse 107 H 12/14/23 01:22 Resp 16 12/14/23 01:22 BP 121/67 12/14/23 01:22 Pulse Ox 94 L 12/14/23 01:22 FiO2 2 12/13/23 07:47 Intake & Output 12/13/23 12/14/23 12/14/23 18:59 06:59 18:59 Intake Total 650 Output Total 1155 Balance -505 Intake: Hemodialysis 650 Output: Hemodialysis 1155 Other: # Voids 1 0 - Labs CBC & Chem 7: 12/14/23 09:05 12/14/23 09:05 Labs: Abnormal Lab Results - Last 24 Hours (Table) 12/13/23 12/13/23 12/13/23 Range/Units 06:42 06:42 06:42 RBC 3.39 L (4.10-5.20) X 10*6/uL Hgb 9.8 L (12.0-15.0) g/dL Hct 32.4 L (37.2-46.3) % MCHC 30.2 L (32.0-37.0) g/dL RDW 20.2 H (11.5-14.5) % Lymphocytes # 0.48 L (0.90-5.00) X 10*3/uL Sodium 131 L (135-145) mmol/L Potassium 6.0 H (3.5-5.5) mmol/L Chloride 92 L (96-109) mmol/L Carbon Dioxide 13.9 L (21.6-31.8) mmol/L Anion Gap 25.10 H (4.00-12.00) mmol/L BUN 71.0 H (9.0-27.0) mg/dL Creatinine 14.2 A* (0.6-1.5) mg/dL Est GFR (CKD-EPI) 3 L (>=60) BUN/Creatinine Ratio 5.00 L (12.00-20.00) Ratio Calcium 8.4 L (8.7-10.3) mg/dL Procalcitonin 1.65 H (0.02-0.09) ng/mL Microbiology - Last 24 Hours (Table) 12/12/23 15:01 Blood Culture - Preliminary Blood 12/12/23 15:04 Blood Culture - Preliminary Blood
--- NOTE | 2023-12-15 10:11 | P.DS ---
Providers Date of admission: 12/13/23 13:06 Expected date of discharge: 12/14/23 Attending physician: Agnieszka Travis Consults: 12/12/23 02:22 Consult Physician Urgent Consulting Provider: Shubham Jensen Consult Reason/Comments: esrd Do you want consulting provider notified?: Yes, Notify in am 12/12/23 12:14 Consult Physician Routine Consulting Provider: Carlos Enrique Avina Consult Reason/Comments: elevated trop Do you want consulting provider notified?: Yes Primary care physician: [facility] Course: Final diagnosis Shortness of breath with back pain, possibly secondary to influenza A Acute asthma exacerbation End-stage renal disease, on hemodialysis History of CHF History of polycystic kidney with failed kidney transplant History of cardiac catheterization History of elevated troponins, chronic GI prophylaxis DVT prophylaxis Full code Discharge disposition Patient is being discharged in a stable condition with guarded prognosis to home. Patient will follow-up with Dr. Thaddeus Travis in the outpatient setting upon discharge. Patient is to continue with hemodialysis as scheduled. Patient is on Wednesday/Wednesday/Wednesday. Patient will continue on Tamiflu 30 mg with each of those sessions of dialysis to complete the course. Total time taken is greater than 35 minutes. Hospital course This is a 33-year-old female who was recently admitted with generalized weakness, cough, congestion, nausea and vomiting not feeling well. Patient was noted to have influenza A and was started on Tamiflu. Patient is end-stage renal disease maintained on hemodialysis nephrology following. Patient to continue with current regimen. Patient will continue on Tamiflu for 5 doses including her Wednesday/Wednesday/and next Wednesday session to complete the course. Patient having intermittent fevers low-grade and recommend Tylenol for fever and/or pain. Encourage small frequent meals and nausea medications as needed. Patient reports to feeling slightly improved and would like to go home. Patient encouraged to follow-up with primary care provider as well as nephrology outpatient. Currently no reports of chest pain, shortness of breath, or palpitations. Patient is afebrile. No reports of nausea or vomiting and patient is tolerating diet. Patient will be discharged home today. Guarded prognosis and high risk for readmissions given patient's significant comorbidities. Physical exam: Gen: This is a 33-year-old female who is awake, alert and oriented x 3, well- developed, well-nourished, elderly appearing HEENT: Head is atraumatic, normocephalic. Pupils equal, round. Sclerae is anicteric. NECK: Supple. No JVD. No lymphadenopathy. No thyromegaly. LUNGS: Diminished breath sounds bilaterally otherwise clear to auscultation. No wheezes or rhonchi. No intercostal retractions. HEART: S1, S2 are muffled ABDOMEN: Soft. Bowel sounds are present. No masses. No tenderness. EXTREMITIES: No pedal edema. No calf tenderness. NEUROLOGICAL: Patient is awake, alert and oriented x3. Cranial nerves 2 through 12 are grossly intact. Please refer to medication reconciliation sheet for a list of medications. The impression and plan of care has been dictated by Mona Bhatt, Nurse Practitioner as directed. Dr. Thaddeus MD I have performed a history and examination and MDM of this patient, discussed the same with the dictator, and agree with the dictator's assessment and plan as written ,documented as a scribe. Based on total visit time, I have performed more than 50% of the visit. Patient Condition at Discharge: Fair Plan - Discharge Summary Discharge Rx Participant: No New Discharge Prescriptions: New Oseltamivir [Tamiflu] 30 mg PO MoWeFr@2100 #3 cap Continue Albuterol Sulfate [Proair Hfa] 2 puff INHALATION RT-Q6H PRN PRN Reason: Shortness Of Breath Calcium Acetate [PhosLo] 2,668 mg PO TID-W/MEALS hydrOXYzine HCL [Atarax] 25 mg PO TID PRN PRN Reason: Anxiety Acetaminophen Tab [Tylenol] 1,000 mg PO Q6HR PRN PRN Reason: Pain Or Fever > 100.5 Docusate [Colace] 100 mg PO BID PRN PRN Reason: Constipation Darbepoetin Aamir [Aranesp] 40 mcg SQ DIRECTED Calcium Carbonate [Tums] 1,500 mg PO ACHS PRN PRN Reason: Gi Upset NIFEdipine XL [Procardia XL] 90 mg PO BID calcitrioL 6 mcg PO DAILY Calcium Acetate [PhosLo] 667 - 1,334 mg PO BID PRN PRN Reason: WITH SNACKS Sodium Zirconium Cyclosilicate [Lokelma] 10 gm PO DAILY PRN PRN Reason: high potassium Lactulose 10 gm PO DAILY PRN PRN Reason: Constipation carvediloL [Coreg*] 12.5 mg PO BID-W/MEALS Ondansetron [Zofran] 4 mg PO Q8HR PRN #20 tab PRN Reason: Nausea And Vomiting hydrALAZINE HCL [Apresoline] 50 mg PO TID #90 tab Metoclopramide HCl [Reglan] 10 mg PO TID PRN #30 tablet PRN Reason: Nausea Discharge Medication List Albuterol Sulfate [Proair Hfa] 2 puff INHALATION RT-Q6H PRN 01/22/16 [History] Calcium Acetate [PhosLo] 2,668 mg PO TID-W/MEALS 05/01/20 [History] calcitrioL 6 mcg PO DAILY 10/29/21 [History] hydrOXYzine HCL [Atarax] 25 mg PO TID PRN 10/29/21 [History] Acetaminophen Tab [Tylenol] 1,000 mg PO Q6HR PRN 05/26/22 [History] Calcium Acetate [PhosLo] 667 - 1,334 mg PO BID PRN 05/26/22 [History] Docusate [Colace] 100 mg PO BID PRN 03/23/23 [History] Sodium Zirconium Cyclosilicate [Lokelma] 10 gm PO DAILY PRN 03/23/23 [History] Darbepoetin Aamir [Aranesp] 40 mcg SQ DIRECTED 06/01/23 [History] Lactulose 10 gm PO DAILY PRN 09/05/23 [History] carvediloL [Coreg*] 12.5 mg PO BID-W/MEALS 09/05/23 [History] Ondansetron [Zofran] 4 mg PO Q8HR PRN #20 tab 09/08/23 [Rx] Calcium Carbonate [Tums] 1,500 mg PO ACHS PRN 09/23/23 [History] NIFEdipine XL [Procardia XL] 90 mg PO BID 11/28/23 [History] Metoclopramide HCl [Reglan] 10 mg PO TID PRN #30 tablet 12/02/23 [Rx] hydrALAZINE HCL [Apresoline] 50 mg PO TID #90 tab 12/02/23 [Rx] Oseltamivir [Tamiflu] 30 mg PO MoWeFr@2100 #3 cap 12/14/23 [Rx] Follow up Appointment(s)/Referral(s): Lolis Kirby MD [STAFF PHYSICIAN] - 1 Week Karo Alicea MD [Primary Care Provider] - 1-2 days Evangelista Larios MD [STAFF PHYSICIAN] - 2 Weeks Activity/Diet/Wound Care/Special Instructions: Activity limited until follow-up Follow-up with primary care provider on discharge Continue with dialysis including tomorrow your next session Continue Tamiflu with 3 doses remaining on each of your dialysis days for the next 3 sessions Continue taking medications as prescribed Discharge Disposition: HOME SELF-CARE
[2023-12-15] MEDS ORDERED: OSELTAMIVIR 30 MG CAP PO SCH (21:00)
[2023-12-20] MEDS ORDERED: DARBEPOETIN ALFA 40 MCG/0.4 ML SYRINGE SQ SCH (09:00)
== END 2023-12-14 14:52 | disposition home or self-care (01) | DRG 193 ==
LOC: EC 21:41 → 6NMEDSUR 12-12 02:22 → OBSVTOIN 12-13 13:06
PROVIDERS: ADMIT Hospitalist; ATTEND Hospitalist
PROC: 5A1D70Z Performance of Urinary Filtration, Intermittent, Less than 6 Hours Per Day (ICD-10-PCS; principal; 2023-12-14)
DX: J10.1 Influenza due to other identified influenza virus with other respiratory manifestations (principal); N18.6 End stage renal disease; I13.2 Hypertensive heart and chronic kidney disease with heart failure and with stage 5 chronic kidney disease, or end stage renal disease; I50.32 Chronic diastolic (congestive) heart failure; J45.901 Unspecified asthma with (acute) exacerbation; Q61.3 Polycystic kidney, unspecified; I42.8 Other cardiomyopathies; T86.12 Kidney transplant failure; E89.2 Postprocedural hypoparathyroidism; G89.29 Other chronic pain; R79.89 Other specified abnormal findings of blood chemistry; M54.50 Low back pain, unspecified; Z99.2 Dependence on renal dialysis; I27.20 Pulmonary hypertension, unspecified; D63.1 Anemia in chronic kidney disease; I25.10 Atherosclerotic heart disease of native coronary artery without angina pectoris; I08.3 Combined rheumatic disorders of mitral, aortic and tricuspid valves; E83.9 Disorder of mineral metabolism, unspecified; Z79.899 Other long term (current) drug therapy; Z28.310 Unvaccinated for COVID-19; Z20.822 Contact with and (suspected) exposure to COVID-19; Z88.0 Allergy status to penicillin; Z88.8 Allergy status to other drugs, medicaments and biological substances
CPT/HCPCS: 36415; 71046; 80048; 80053; 83735; 84145; 84484; 85025; 85379; 85610; 85730; 87040; 87636; 90935; 93005; 93306; 94640; 94760; 96374; 99285

== ENCOUNTER 2024-01-21 09:04 | Observation (INO) | payer MEDICARE, BC, OTHER ==
[2024-01-21 09:42] LABS: Anisocytosis Slight; Basophils # (A) 0.1 k/uL (0-0.2); Basophils % (A) 1 %; Eosinophils # (A) 0.4 k/uL (0-0.7); Eosinophils % (A) 9 %; HCT 39.4 % (34.0-46.0); Hypochromasia Slight; Lymphocytes # (A) 0.8 k/uL (1.0-4.8); Lymphocytes % (A) 16 %; MCH 29.1 pg (25.0-35.0); MCHC 30.3 g/dL (31.0-37.0); MCV 95.8 fL (80.0-100.0); Macrocytosis Slight; Mean Platelet Volume 9.6; Monocytes # (A) 0.3 k/uL (0-1.0); Monocytes % (A) 7 %; Neutrophils # (A) 3.1 k/uL (1.3-7.7); Neutrophils % (A) 65 %; Platelet Count 203 k/uL (150-450); RBC 4.11 m/uL (3.80-5.40); RDW 18.3 % (11.5-15.5); WBC 4.8 k/uL (3.8-10.6)
[2024-01-21 10:00] LABS: ALT 13 U/L (4-34); AST 22 U/L (14-36); African American GFR (CKD) 8 (>60 ml/min/1.73 sqM); Albumin 4.5 g/dL (3.5-5.0); Alkaline Phosphatase 76 U/L (38-126); Anion Gap 9 mmol/L; Blood Urea Nitrogen 37 mg/dL (7-17); Calcium 10.1 mg/dL (8.4-10.2); Carbon Dioxide 29 mmol/L (22-30); Chloride 97 mmol/L (98-107); Glucose 99 mg/dL (74-99); INR 0.9 (<1.2); Magnesium 2.1 mg/dL (1.6-2.3); Non-African American GFR(CKD) 7 (>60 ml/min/1.73 sqM); Partial Thromboplastin Time 26.1 sec (22.0-30.0); Potassium 4.6 mmol/L (3.5-5.1); Prothrombin Time 10.4 sec (10.0-12.5); Sodium 135 mmol/L (137-145); Total Bilirubin 0.6 mg/dL (0.2-1.3); Total Protein 8.3 g/dL (6.3-8.2)
[2024-01-21] MEDS: NITROGLYCERIN SL TABS 0.4 MG TAB SUBLINGUAL STA (10:12)
[2024-01-21 10:24] LABS: NT-Pro-B-Type Natriuretic Pept 40900 pg/mL
[2024-01-21] MEDS: MORPHINE SULFATE 4 MG/ML SYRINGE IVP STA ×2 (10:29→15:22)
--- NOTE | 2024-01-21 10:43 | XR ---
EXAMINATION TYPE: XR chest 2V DATE OF EXAM: 01/21/2024 9:57 AM CLINICAL INDICATION:Female, 33 years old with history of Chest Pain; [facility] COMPARISON: Chest radiographs from 12/11/2023 TECHNIQUE: XR chest 2V Frontal and lateral views of the chest. FINDINGS: Lungs/Pleura: There is no evidence of pleural effusion, focal consolidation, or pneumothorax. Pulmonary vascularity: Unremarkable. Heart/mediastinum: Cardiomediastinal silhouette is unremarkable. Musculoskeletal: No acute osseous pathology. IMPRESSION: Cardiomegaly, pulmonary vascular congestion and bilateral pleural effusions. Correlate with BNP for c ongestive heart failure.
[2024-01-21] MEDS ORDERED: NITROGLYCERIN SL TABS 0.4 MG TAB SUBLINGUAL PRN (12:28)
--- NOTE | 2024-01-21 12:42 | ED ---
Chest Pain HPI - General Chief Complaint: Chest Pain Stated Complaint: Chest pain Time Seen by Provider: 01/21/24 09:11 Source: patient, EMS, RN notes reviewed Mode of arrival: EMS Limitations: no limitations - History of Present Illness Initial Comments: 33-year-old female presents emergency department complaint of chest pain, dialysis. Patient states she was at dialysis today started treatment started developing left-sided chest pain. She does admit that she had a procedure regarding her fistula and clots yesterday [facility] for clots in her fistula. Patient states that she had pain during this procedure. She developed pain today she does have some shortness of breath. Patient states she did not complete her treatment. Patient denies any fevers or chills denies any other associated symptoms. - Related Data Home Medications Medication Instructions Recorded Confirmed Albuterol Sulfate [Proair Hfa] 2 puff INHALATION RT-Q6H PRN 01/22/16 01/21/24 Calcium Acetate [PhosLo] 2,668 mg PO TID-W/MEALS 05/01/20 01/21/24 calcitrioL 6 mcg PO DAILY 10/29/21 01/21/24 hydrOXYzine HCL [Atarax] 25 mg PO TID PRN 10/29/21 01/21/24 Acetaminophen Tab [Tylenol] 1,000 mg PO Q6HR PRN 05/26/22 01/21/24 Calcium Acetate [PhosLo] 667 - 1,334 mg PO BID PRN 05/26/22 01/21/24 Docusate [Colace] 100 mg PO BID PRN 03/23/23 01/21/24 Sodium Zirconium Cyclosilicate 10 gm PO DAILY PRN 03/23/23 01/21/24 [Lokelma] Darbepoetin Aamir [Aranesp] 40 mcg SQ DIRECTED 06/01/23 01/21/24 Lactulose 10 gm PO DAILY PRN 09/05/23 01/21/24 carvediloL [Coreg*] 12.5 mg PO BID-W/MEALS 09/05/23 01/21/24 Calcium Carbonate [Tums] 1,500 mg PO ACHS PRN 09/23/23 01/21/24 NIFEdipine XL [Procardia XL] 90 mg PO BID 11/28/23 01/21/24 hydrALAZINE HCL [Apresoline] 100 mg PO TID 01/21/24 01/21/24 Previous Rx's Medication Instructions Recorded Ondansetron [Zofran] 4 mg PO Q8HR PRN #20 tab 09/08/23 Metoclopramide HCl [Reglan] 10 mg PO TID PRN #30 tablet 12/02/23 Allergies Allergy/AdvReac Type Severity Reaction Status Date / Time vancomycin Allergy Anaphylaxis Verified 01/21/24 12:19 hydralazine AdvReac Rapid Verified 01/21/24 12:19 Heart Rate WHEN GIVEN THROUGH IV Review of Systems ROS Statement: Those systems with pertinent positive or pertinent negative responses have been documented in the HPI. ROS Other: All systems not noted in ROS Statement are negative. 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 History of Any Multi-Drug Resistant Organisms: None Reported Past Surgical History: Heart Catheterization, Hernia Repair Additional Past Surgical History / Comment(s): 06/14/18 cardiac cath at [facility] to check coronary pressures, 11/15/09 Failed kidney transplant R pelvis, dialysis catheter in and out, current L upper arm AVG, supra pubic hernia repair, transvaginal mesh, wisdom teeth extraction with anesthesia, 2016 failed kidney transplant Past Anesthesia/Blood Transfusion Reactions: No Reported Reaction Additional Past Anesthesia/Blood Transfusion Reaction / Comment(s): Pt has received blood in past without reaction. Past Psychological History: Anxiety, Depression Smoking Status: Never smoker Past Alcohol Use History: None Reported Past Drug Use History: None Reported - Past Family History Father Family Medical History: No Reported History Additional Family Medical History / Comment(s): Father is healthy and is 62 yrs old. Mother Family Medical History: No Reported History Additional Family Medical History / Comment(s): Mother is healthy and is 60 yrs old. General Exam Limitations: no limitations General appearance: alert, in no apparent distress Head exam: Present: atraumatic, normocephalic, normal inspection Eye exam: Present: normal appearance, PERRL, EOMI. Absent: scleral icterus, conjunctival injection, periorbital swelling Neck exam: Present: normal inspection. Absent: tenderness, meningismus, lymphadenopathy Respiratory exam: Present: normal lung sounds bilaterally. Absent: respiratory distress, wheezes, rales, rhonchi, stridor Cardiovascular Exam: Present: regular rate, normal rhythm, normal heart sounds. Absent: systolic murmur, diastolic murmur, rubs, gallop, clicks Neurological exam: Present: alert, oriented X3 Course Vital Signs 01/21/24 01/21/24 01/21/24 09:06 10:13 11:48 Temperature 98.1 F Pulse Rate 87 91 78 Respiratory 16 16 16 Rate Blood Pressure 131/89 130/84 128/90 O2 Sat by Pulse 100 100 95 Oximetry Chest Pain MDM - MDM Was pt. sent in by a medical professional or institution (, PA, SUPERVISOR [employer]ARD, urgent care, hospital, or long-term...) When possible be specific @ -Dialysis center Did you speak to anyone other than the patient for history (EMS, parent, family, police, friend...)? What history was obtained from this source @ -No Did you review nursing and triage notes (agree or disagree)? Why? @ -I reviewed and agree with nursing and triage notes Were old charts reviewed (outside hosp., previous admission, EMS record, old EKG, old radiological studies, urgent care reports/EKG's, long-term records)? Report findings @ -Reviewed prior troponin, chest x-rays Differential Diagnosis (chest pain, altered mental status, abdominal pain women, abdominal pain men, vaginal bleeding, weakness, fever, dyspnea, syncope, headache, dizziness, GI bleed, back pain, seizure, CVA, palpatations, mental health, musculoskeletal)? @ -Differential Chest Pain: Stable Angina, Unstable Angina, STEMI, NSTEMI Aortic Dissection, Pneumothorax, Musculoskeletal, Esophageal Spasm GERD, Cholecystitis, Pancreatitis, Zoster, this is not meant to be an all-inclusive list. EKG interpreted by me (3pts min.). @ -As above X-rays interpreted by me (1pt min.). @ -Chest X2 view shows pulmonary edema CT interpreted by me (1pt min.). @ -None done U/S interpreted by me (1pt. min.). @ -None done What testing was considered but not performed or refused? (CT, X-rays, U/S, labs)? Why? @ -None What meds were considered but not given or refused? Why? @ -None Did you discuss the management of the patient with other professionals (professionals i.e. , PA, SUPERVISOR [employer]ARD, lab, RT, psych nurse, social media community manager, professor of latin american studies, teacher, navigation officer, case management assistant)? Give summary @ -Dr. Vieira for admission secondary to pulm edema, chest pain and ESRD Was smoking cessation discussed for >3mins.? @ -No Was critical care preformed (if so, how long)? @ -No Were there social determinants of health that impacted care today? How? (Homelessness, low income, unemployed, alcoholism, drug addiction, transportation, low edu. Level, literacy, decrease access to med. care, longterm, rehab)? @ -No Was there de-escalation of care discussed even if they declined (Discuss DNR or withdrawal of care, Hospice)? DNR status @ -No What co-morbidities impacted this encounter? (DM, HTN, Smoking, COPD, CAD, Cancer, CVA, ARF, Chemo, Hep., AIDS, mental health diagnosis, sleep apnea, morbid obesity)? @ -End-stage renal disease on dialysis Was patient admitted / discharged? Hospital course, mention meds given and route, prescriptions, significant lab abnormalities, going to OR and other pertinent info. @ -Admitted patient still has pulm edema on chest x-ray, did not finish dialysis and has continuation of chest pain. Patient will be admitted for repeat troponin, dialysis. Undiagnosed new problem with uncertain prognosis? @ -No Drug Therapy requiring intensive monitoring for toxicity (Heparin, Nitro, Insulin, Cardizem)? @ -No Were any procedures done? @ -No Diagnosis/symptom? @Chest pain, pulmonary edema Acute, or Chronic, or Acute on Chronic? @ -Acute Uncomplicated (without systemic symptoms) or Complicated (systemic symptoms)? @ -Complicated Side effects of treatment? @ -No Exacerbation, Progression, or Severe Exacerbation? @ -No Poses a threat to life or bodily function? How? (Chest pain, USA, ME, pneumonia, PE, COPD, DKA, ARF, appy, cholecystitis, CVA, Diverticulitis, Homicidal, Suicidal, threat to staff... and all critical care pts) @ -Yes chest pain, end-stage renal disease, possible cardiac arrest Disposition Clinical Impression: Chest pain, ESRD (end stage renal disease), Pulmonary edema Disposition: ADMITTED IP TO THIS HOSP Condition: Fair Referrals: Karo Alicea MD [Primary Care Provider] - 1-2 days Time of Disposition: 12:42
--- NOTE | 2024-01-21 13:45 | P.CRDCN ---
History of Present Illness Consult date: 01/21/24 Consult reason: chest pain History of present illness: This is a 33-year-old female patient of Dr. Sera Larios with past medical history of end-stage renal disease on hemodialysis, severe hypertension, LVH, severe pulmonary hypertension. We have been asked to evaluate the patient for chest pain. Patient states she was at dialysis treatment and about detention through she developed chest pain when she was laying down. She denies any chest pain w ith deep breathing. She states she has had this type of chest pain before. She does not have chest pain with ambulation or activity. She has lower extremity edema that is about the same. No shortness of breath. She denies missing any dialysis treatments. She states she is been taking all of her medications as directed. She denies any cough, fever, wheezing. No blood in her urine or stool. No nausea or vomiting. She states the chest pain is much less by the time of this evaluation. Patient is seen today in the emergency center waiting for bed on the cardiac stepdown unit. EKG sinus rhythm, LVH, EKG unchanged from previous. Chest x-ray: Cardiomegaly. Pulmonary vascular congestion and bilateral pleural effusions. WBC 4.8, hemoglobin 12. Sodium 135, potassium 4.6, BUN 37 creatinine 7.19. Magnesium 2.1. Troponin 0.054. proBNP 40,900. Detected. Influenza B not detected, RSV not detected, COVID-19 not detected. Home cardiac medications: Coreg 12.5 mg twice daily, hydralazine 100 mg 3 times daily, nifedipine XL 90 mg twice daily. Echocardiogram performed on 12/13/2023 revealed left ventricular systolic function borderline normal with severe hypertrophy. Severe tricuspid regurgitation and severe pulmonary hypertension. Moderate aortic regurgitation. Mild to moderate mitral regurgitation. Review Of Systems: At the time of my exam: CONSTITUTIONAL: Denies fever or chills. HEENT: Denies blurred vision, vision changes, or eye pain. Denies hemoptysis CARDIOVASCULAR: Reports chest pain. Denies orthopnea. Denies PND. Denies palpitations RESPIRATORY: Denies shortness of breath. GASTROINTESTINAL: Denies abdominal pain. Denies nausea or vomiting. HEMATOLOGIC: Denies bleeding disorders. GENITOURINARY: Denies any blood in urine. SKIN: Denies pruitis. Denies rash. Physical examination: Gen: This is a 33-year-old female in no acute distress VS: reviewed, blood pressure 128/90, heart rate 78, pulse ox 95% on room air. HEENT: Head is atraumatic, normocephalic. Pupils equal, round. Sclerae is anicteric. NECK: Supple. No JVD. LUNGS: Clear to auscultation. No wheezes or rhonchi. No intercostal retractions. HEART: Regular rate and rhythm. Systolic murmur. ABDOMEN: Soft No tenderness. EXTREMITIES: No pedal edema. No calf tenderness. NEUROLOGICAL: Patient is awake, alert and oriented x3. Assessment: Noncardiac chest pain, musculoskeletal type pain Elevated troponin which are chronically elevated related to renal failure with no sign of coronary ischemia or injury Acute coronary syndrome has been ruled out, chest pain is noncardiac End-stage renal disease on hemodialysis Wednesday Hypertension LVH Severe pulmonary hypertension Anemia of chronic kidney disease Plan: Resume patient's home cardiac medications No cardiac workup necessary at this time Patient is cleared for discharge from cardiology and may follow-up with Dr. Sera Larios in 1 to 2 weeks. Thank you kindly for this consultation. Nurse practitioner note has been reviewed, I agree with documented findings and plan of care. Patient was seen and examined. 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 History of Any Multi-Drug Resistant Organisms: None Reported Past Surgical History: Heart Catheterization, Hernia Repair Additional Past Surgical History / Comment(s): 06/14/18 cardiac cath at [facility] to check coronary pressures, 11/15/09 Failed kidney transplant R pelvis, dialysis catheter in and out, current L upper arm AVG, supra pubic hernia repair, resendiz svaginal mesh, wisdom teeth extraction with anesthesia, 2017 failed kidney transplant Past Anesthesia/Blood Transfusion Reactions: No Reported Reaction Additional Past Anesthesia/Blood Transfusion Reaction / Comment(s): Pt has received blood in past without reaction. Past Psychological History: Anxiety, Depression Smoking Status: Never smoker Past Alcohol Use History: None Reported Past Drug Use History: None Reported - Past Family History Father Family Medical History: No Reported History Additional Family Medical History / Comment(s): Father is healthy and is 62 yrs old. Mother Family Medical History: No Reported History Additional Family Medical History / Comment(s): Mother is healthy and is 60 yrs old. Medications and Allergies Home Medications Medication Instructions Recorded Confirmed Type Albuterol Sulfate [Proair Hfa] 2 puff INHALATION RT-Q6H PRN 01/22/16 01/21/24 History Calcium Acetate [PhosLo] 2,668 mg PO TID-W/MEALS 05/01/20 01/21/24 History calcitrioL 6 mcg PO DAILY 10/29/21 01/21/24 History hydrOXYzine HCL [Atarax] 25 mg PO TID PRN 10/29/21 01/21/24 History Acetaminophen Tab [Tylenol] 1,000 mg PO Q6HR PRN 05/26/22 01/21/24 History Calcium Acetate [PhosLo] 667 - 1,334 mg PO BID PRN 05/26/22 01/21/24 History Docusate [Colace] 100 mg PO BID PRN 03/23/23 01/21/24 History Sodium Zirconium Cyclosilicate 10 gm PO DAILY PRN 03/23/23 01/21/24 History [Lokelma] Darbepoetin Aamir [Aranesp] 40 mcg SQ DIRECTED 06/01/23 01/21/24 History Lactulose 10 gm PO DAILY PRN 09/05/23 01/21/24 History carvediloL [Coreg*] 12.5 mg PO BID-W/MEALS 09/05/23 01/21/24 History Ondansetron [Zofran] 4 mg PO Q8HR PRN #20 tab 09/08/23 01/21/24 Rx Calcium Carbonate [Tums] 1,500 mg PO ACHS PRN 09/23/23 01/21/24 History NIFEdipine XL [Procardia XL] 90 mg PO BID 11/28/23 01/21/24 History Metoclopramide HCl [Reglan] 10 mg PO TID PRN #30 tablet 12/02/23 01/21/24 Rx hydrALAZINE HCL [Apresoline] 100 mg PO TID 01/21/24 01/21/24 History Allergies Allergy/AdvReac Type Severity Reaction Status Date / Time vancomycin Allergy Anaphylaxis Verified 01/21/24 12:19 hydralazine AdvReac Rapid Verified 01/21/24 12:19 Heart Rate WHEN GIVEN THROUGH IV Physical Exam Vitals: Vital Signs Temp Pulse Resp BP Pulse Ox 01/21/24 11:48 78 16 128/90 95 01/21/24 10:13 91 16 130/84 100 01/21/24 09:06 98.1 F 87 16 131/89 100 Intake and Output 01/20/24 01/21/24 01/21/24 22:59 06:59 14:59 Other: Weight 54.431 kg Results 01/21/24 09:31 01/21/24 09:31 Cardiac Enzymes 01/21/24 01/21/24 Range/Units 09:31 09:31 AST 22 (14-36) U/L Troponin I 0.054 H* (0.000-0.034) ng/mL Coagulation 01/21/24 Range/Units 09:31 PT 10.4 (10.0-12.5) sec APTT 26.1 (22.0-30.0) sec CBC 01/21/24 Range/Units 09:31 WBC 4.8 (3.8-10.6) k/uL RBC 4.11 (3.80-5.40) m/uL Hgb 12.0 (11.4-16.0) gm/dL Hct 39.4 (34.0-46.0) % Plt Count 203 (150-450) k/uL Comprehensive Metabolic Panel 01/21/24 Range/Units 09:31 Sodium 135 L (137-145) mmol/L Potassium 4.6 (3.5-5.1) mmol/L Chloride 97 L (98-107) mmol/L Carbon Dioxide 29 (22-30) mmol/L BUN 37 H (7-17) mg/dL Creatinine 7.19 H* (0.52-1.04) mg/dL Glucose 99 (74-99) mg/dL Calcium 10.1 (8.4-10.2) mg/dL AST 22 (14-36) U/L ALT 13 (4-34) U/L Alkaline Phosphatase 76 (38-126) U/L Total Protein 8.3 H (6.3-8.2) g/dL Albumin 4.5 (3.5-5.0) g/dL Current Medications Generic Name Dose Route Start Last Admin Trade Name Freq PRN Reason Stop Dose Admin Nitroglycerin 0.4 mg 01/21/24 12:28 Nitroglycerin Sl Tabs 0.4 Mg Tab SUBLINGUAL Q5M PRN Chest Pain Intake and Output 01/20/24 01/21/24 01/21/24 22:59 06:59 14:59 Other: Weight 54.431 kg Patient Weight 01/22/24 06:59 Weight 54.431 kg 01/21/24 09:31 01/21/24 09:31
[2024-01-21] MEDS ORDERED: CALCIUM CARBONATE 500 MG CHEWABLE PO PRN (14:10)
[2024-01-21] MEDS ORDERED: ONDANSETRON 4 MG TAB PO PRN (14:10)
[2024-01-21] MEDS ORDERED: LACTULOSE 20 GM/30 ML CUP PO PRN (14:10)
[2024-01-21] MEDS ORDERED: ACETAMINOPHEN TAB 500 MG TAB PO PRN (14:10)
[2024-01-21] MEDS ORDERED: SODIUM ZIRCONIUM CYCLOSILICATE 10 GM PACKET PO PRN (14:10)
[2024-01-21] MEDS ORDERED: METOCLOPRAMIDE 10 MG TAB PO PRN (14:10)
[2024-01-21] MEDS ORDERED: CALCIUM ACETATE 667 MG TAB PO PRN (14:10)
[2024-01-21] MEDS ORDERED: ALBUTEROL NEBULIZED 2.5 MG/3 ML INHALATION PRN (14:10)
[2024-01-21] MEDS ORDERED: hydrOXYzine HCL 25 MG TAB PO PRN (14:10)
[2024-01-21] MEDS: DARBEPOETIN ALFA 40 MCG/0.4 ML SYRINGE SQ SCH (15:24)
[2024-01-21] MEDS: hydrALAZINE HCL 50 MG TAB PO SCH (15:50)
--- NOTE | 2024-01-21 16:33 | P.HPIM ---
History of Present Illness H&P Date: 01/21/24 Chief Complaint: Chest pain 33-year-old female presents emergency department complaint of chest pain, dialysis. Patient states she was at dialysis today started treatment started developing left-sided chest pain. She does admit that she had a procedure regarding her fistula and clots yesterday [facility] yesterday for clots in her fistula. Patient states that she had pain during this procedure. She developed pain today she does have some shortness of breath. Patient states she did not complete her treatment. Patient denies any fevers or chills denies any other associated symptoms. EKG sinus rhythm, LVH, EKG unchanged from previous. Chest x-ray: Cardiomegaly. Pulmonary vascular congestion and bilateral pleural effusions. WBC 4.8, hemoglobin 12. Sodium 135, potassium 4.6, BUN 37 creatinine 7.19. Magnesium 2.1. Troponin 0.054. proBNP 40,900. Detected. Influenza B not detected, RSV not detected, COVID-19 not detected. Home cardiac medications: Coreg 12.5 mg twice daily, hydralazine 100 mg 3 times daily, nifedipine XL 90 mg twice daily. Echocardiogram performed on 12/13/2023 revealed left ventricular systolic function borderline normal with severe hypertrophy. Severe tricuspid regurgitation and severe pulmonary hypertension. Moderate aortic regurgitation. Mild to moderate mitral regurgitation. Review of Systems REVIEW OF SYSTEMS: CONSTITUTIONAL: No fever, no malaise, no fatigue. HEENT: No recent visual problems or hearing problems. Denied any sore throat. CARDIOVASCULAR: No chest pain, orthopnea, PND, no palpitations, no syncope. PULMONARY: No shortness of breath, no cough, no hemoptysis. GASTROINTESTINAL: No diarrhea, no nausea, no vomiting, no abdominal pain. NEUROLOGICAL: No headaches, no weakness, no numbness. HEMATOLOGICAL: Denies any bleeding or petechiae. GENITOURINARY: Denies any burning micturition, frequency, or urgency. MUSCULOSKELETAL/RHEUMATOLOGICAL: Denies any joint pain, swelling, or any muscle pain. ENDOCRINE: Denies any polyuria or polydipsia. The rest of the 14-point review of systems is negative. 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 History of Any Multi-Drug Resistant Organisms: None Reported Past Surgical History: Heart Catheterization, Hernia Repair Additional Past Surgical History / Comment(s): 06/14/18 cardiac cath at [facility] to check coronary pressures, 11/15/09 Failed kidney transplant R pelvis, dialysis catheter in and out, current L upper arm AVG, supra pubic hernia repair, transvaginal mesh, wisdom teeth extraction with anesthesia, 2016 failed kidney transplant Past Anesthesia/Blood Transfusion Reactions: No Reported Reaction Additional Past Anesthesia/Blood Transfusion Reaction / Comment(s): Pt has received blood in past without reaction. Past Psychological History: Anxiety, Depression Smoking Status: Never smoker Past Alcohol Use History: None Reported Past Drug Use History: None Reported - Past Family History Father Family Medical History: No Reported History Additional Family Medical History / Comment(s): Father is healthy and is 62 yrs old. Mother Family Medical History: No Reported History Additional Family Medical History / Comment(s): Mother is healthy and is 60 yrs old. Medications and Allergies Home Medications Medication Instructions Recorded Confirmed Type Albuterol Sulfate [Proair Hfa] 2 puff INHALATION RT-Q6H PRN 01/22/16 01/21/24 History Calcium Acetate [PhosLo] 2,668 mg PO TID-W/MEALS 05/01/20 01/21/24 History calcitrioL 6 mcg PO DAILY 10/29/21 01/21/24 History hydrOXYzine HCL [Atarax] 25 mg PO TID PRN 10/29/21 01/21/24 History Acetaminophen Tab [Tylenol] 1,000 mg PO Q6HR PRN 05/26/22 01/21/24 History Calcium Acetate [PhosLo] 667 - 1,334 mg PO BID PRN 05/26/22 01/21/24 History Docusate [Colace] 100 mg PO BID PRN 03/23/23 01/21/24 History Sodium Zirconium Cyclosilicate 10 gm PO DAILY PRN 03/23/23 01/21/24 History [Lokelma] Darbepoetin Aamir [Aranesp] 40 mcg SQ DIRECTED 06/01/23 01/21/24 History Lactulose 10 gm PO DAILY PRN 09/05/23 01/21/24 History carvediloL [Coreg*] 12.5 mg PO BID-W/MEALS 09/05/23 01/21/24 History Ondansetron [Zofran] 4 mg PO Q8HR PRN #20 tab 09/08/23 01/21/24 Rx Calcium Carbonate [Tums] 1,500 mg PO ACHS PRN 09/23/23 01/21/24 History NIFEdipine XL [Procardia XL] 90 mg PO BID 11/28/23 01/21/24 History Metoclopramide HCl [Reglan] 10 mg PO TID PRN #30 tablet 12/02/23 01/21/24 Rx hydrALAZINE HCL [Apresoline] 100 mg PO TID 01/21/24 01/21/24 History Allergies Allergy/AdvReac Type Severity Reaction Status Date / Time vancomycin Allergy Anaphylaxis Verified 01/21/24 12:19 hydralazine AdvReac Rapid Verified 01/21/24 12:19 Heart Rate WHEN GIVEN THROUGH IV Physical Exam Vitals: Vital Signs Temp Pulse Resp BP Pulse Ox 01/21/24 11:48 78 16 128/90 95 01/21/24 10:13 91 16 130/84 100 01/21/24 09:06 98.1 F 87 16 131/89 100 Intake and Output 01/20/24 01/21/24 01/21/24 22:59 06:59 14:59 Other: Weight 54.431 kg Limitations: no limitations General appearance: alert, in no apparent distress Head exam: Present: atraumatic, normocephalic, normal inspection Eye exam: Present: normal appearance, PERRL, EOMI. Absent: scleral icterus, conjunctival injection, periorbital swelling Neck exam: Present: normal inspection. Absent: tenderness, meningismus, lymphadenopathy Respiratory exam: Present: normal lung sounds bilaterally. Absent: respiratory distress, wheezes, rales, rhonchi, stridor Cardiovascular Exam: Present: regular rate, normal rhythm, normal heart sounds. Absent: systolic murmur, diastolic murmur, rubs, gallop, clicks Neurological exam: Present: alert, oriented X3 Results CBC & Chem 7: 01/21/24 09:31 01/21/24 09:31 Labs: Abnormal Lab Results - Last 24 Hours (Table) 01/21/24 01/21/24 01/21/24 Range/Units 09:31 09:31 09:31 MCHC 30.3 L (31.0-37.0) g/dL RDW 18.3 H (11.5-15.5) % Lymphocytes # 0.8 L (1.0-4.8) k/uL Sodium 135 L (137-145) mmol/L Chloride 97 L (98-107) mmol/L BUN 37 H (7-17) mg/dL Creatinine 7.19 H* (0.52-1.04) mg/dL Troponin I 0.054 H* (0.000-0.034) ng/mL Total Protein 8.3 H (6.3-8.2) g/dL Assessment and Plan Assessment: 1. Chest pain with elevated troponin -We will admit to telemetry; monitor cardiac enzymes and EKG -- Recommend 2D echo; consult cardiology 2. Pulmonary edema in background of end-stage renal disease; patient reports incomplete dialysis day before -- Cardiology and nephrology has been consulted 3. ESRD/hemodialysis; nephrology on board; PhosLo twice daily as needed along with calcium carbonate 4. Hypertension; nifedipine 90 mg p.o. twice daily; Coreg 12.5 mg twice daily; hydralazine 100 mg 3 times daily 5. COPD/asthma; continue with home inhaler therapy 6. Anemia of chronic disease; hemoglobin at baseline DVT prophylaxis; SCDs CODE STATUS; full code
[2024-01-21 17:18] VITALS: BP 158/91; PULSE 81; RESP 16; TEMP 98.4
[2024-01-21] MEDS ORDERED: carvediloL 12.5 MG TAB PO SCH (17:30)
[2024-01-21] MEDS ORDERED: CALCIUM ACETATE 667 MG TAB PO SCH (17:30)
[2024-01-21] MEDS ORDERED: NIFEdipine XL 90 MG TAB.ER.24 PO SCH (21:00)
[2024-01-22] MEDS ORDERED: CALCITRIOL 0.5 MCG PO SCH (09:00)
== END 2024-01-21 17:55 | disposition left against medical advice (07) ==
LOC: EC 09:04 → 3SCARD 12:33 → 4SSUR 15:24 → 5NMEDONC 16:20
PROVIDERS: ADMIT Internal Medicine; ATTEND Internal Medicine
DX: R07.89 Other chest pain (principal); R79.89 Other specified abnormal findings of blood chemistry; I13.2 Hypertensive heart and chronic kidney disease with heart failure and with stage 5 chronic kidney disease, or end stage renal disease; I50.9 Heart failure, unspecified; N18.6 End stage renal disease; Z99.2 Dependence on renal dialysis; E11.22 Type 2 diabetes mellitus with diabetic chronic kidney disease; I27.20 Pulmonary hypertension, unspecified; I08.3 Combined rheumatic disorders of mitral, aortic and tricuspid valves; D63.1 Anemia in chronic kidney disease; J44.89 Other specified chronic obstructive pulmonary disease; Z79.899 Other long term (current) drug therapy; Z88.1 Allergy status to other antibiotic agents; Z88.8 Allergy status to other drugs, medicaments and biological substances
CPT/HCPCS: 96376; 96374; 99285; 36415; 93005; 83880; 80053; 83735; 84484; 85025; 85610; 85730; 71046; G0378 ×3; J2270

== ENCOUNTER 2024-04-25 14:12 | Inpatient (IN) | payer MEDICARE, BC, OTHER ==
--- NOTE | 2024-04-25 14:49 | ED ---
Chest Pain HPI - General Source: patient, RN notes reviewed Mode of arrival: ambulatory Limitations: no limitations <Lisbeth Thomas - Last Filed: 04/25/24 14:48> - General Source: RN notes reviewed, old records reviewed, Caregiver Mode of arrival: ambulatory Limitations: no limitations - History of Present Illness MD Complaint: chest pain, other (Dizziness nausea weakness) Onset: during rest, during exertion Pain Location: substernal Pain Radiation: none Severity: severe Consistency: constant Improves With: nothing Worsens With: nothing Anginal Symptoms: dyspnea, sense of impending doom Other Symptoms: palpitations Treatments Prior to Arrival: none <Oscar Judge - Last Filed: 05/04/24 17:31> - General Chief Complaint: Chest Pain Stated Complaint: Chest Pain Time Seen by Provider: 04/25/24 14:31 - History of Present Illness Initial Comments: Quick [id number] female the history of end-stage renal disease on hemodialysis Wednesday, Wednesday, Wednesday and congestive heart failure presents emergency department chief complaint of chest pain that started this morning. States that she has been feeling nauseous and dizzy as well. Went to hemodialysis yesterday (Lisbeth Thomas) This is a 33-year-old female with CHF coming in for end-stage renal disease with dizziness nausea weakness despite having dialysis today, also complaining of chest pain (Oscar Judge) - Related Data Home Medications Medication Instructions Recorded Confirmed Albuterol Sulfate [Proair Hfa] 2 puff INHALATION RT-Q6H PRN 01/22/16 04/25/24 Calcium Acetate [PhosLo] 2,668 mg PO TID-W/MEALS 05/01/20 04/25/24 calcitrioL 1.5 mcg PO DAILY 10/29/21 04/27/24 Acetaminophen Tab [Tylenol] 1,000 mg PO Q6HR PRN 05/26/22 04/25/24 Calcium Acetate [PhosLo] 1,334 mg PO DAILY PRN 05/26/22 04/25/24 Sodium Zirconium Cyclosilicate 10 gm PO DAILY PRN 03/23/23 04/25/24 [Lokelma] Lactulose 10 gm PO DAILY PRN 09/05/23 04/25/24 carvediloL [Coreg*] 25 mg PO BID-W/MEALS 09/05/23 04/25/24 NIFEdipine XL [Procardia XL] 90 mg PO DAILY 11/28/23 04/25/24 hydrALAZINE HCL [Apresoline] 100 mg PO TID 01/21/24 04/25/24 Ondansetron [Zofran] 4 mg PO Q8H PRN 04/25/24 04/25/24 Previous Rx's Medication Instructions Recorded Ibuprofen [Motrin] 400 mg PO Q12HR PRN 2 Days #4 tab 04/27/24 Allergies Allergy/AdvReac Type Severity Reaction Status Date / Time vancomycin Allergy Anaphylaxis Verified 04/25/24 17:10 /Itching hydralazine AdvReac Rapid Verified 04/25/24 17:10 Heart Rate WHEN GIVEN THROUGH IV Review of Systems ROS Other: All systems not noted in ROS Statement are negative. <Lisbeth Thomas - Last Filed: 04/25/24 14:48> ROS Other: All systems not noted in ROS Statement are negative. <Oscar Judge - Last Filed: 05/04/24 17:31> ROS Statement: Those systems with pertinent positive or pertinent negative responses have been documented in the HPI. 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 History of Any Multi-Drug Resistant Organisms: None Reported Past Surgical History: Heart Catheterization, Hernia Repair Additional Past Surgical History / Comment(s): 06/14/18 cardiac cath at [facility] to check coronary pressures, 11/15/09 Failed kidney transplant R pelvis, dialysis catheter in and out, current L upper arm AVG, supra pubic hernia repair, transvaginal mesh, wisdom teeth extraction with anesthesia, 2016 failed kidney transplant Past Anesthesia/Blood Transfusion Reactions: No Reported Reaction Additional Past Anesthesia/Blood Transfusion Reaction / Comment(s): Pt has received blood in past without reaction. Past Psychological History: Anxiety, Depression Smoking Status: Former smoker Past Alcohol Use History: None Reported Past Drug Use History: None Reported - Past Family History Father Family Medical History: No Reported History Additional Family Medical History / Comment(s): Father is healthy and is 62 yrs old. Mother Family Medical History: No Reported History Additional Family Medical History / Comment(s): Mother is healthy and is 60 yrs old. <Lisbeth Thomas - Last Filed: 04/25/24 14:48> General Exam Limitations: no limitations <TalhaBelinda mcoe - Last Filed: 04/25/24 14:48> General appearance: alert, in no apparent distress Head exam: Present: atraumatic, normocephalic, normal inspection Eye exam: Present: normal appearance, PERRL, EOMI. Absent: scleral icterus, conjunctival injection, periorbital swelling ENT exam: Present: normal exam, mucous membranes moist Neck exam: Present: normal inspection. Absent: tenderness, meningismus, lymphadenopathy Respiratory exam: Present: normal lung sounds bilaterally. Absent: respiratory distress, wheezes, rales, rhonchi, stridor Cardiovascular Exam: Present: regular rate, normal rhythm, normal heart sounds. Absent: systolic murmur, diastolic murmur, rubs, gallop, clicks GI/Abdominal exam: Present: soft, normal bowel sounds. Absent: distended, tenderness, guarding, rebound, rigid Extremities exam: Present: normal inspection, full ROM, normal capillary refill. Absent: tenderness, pedal edema, joint swelling, calf tenderness Back exam: Present: normal inspection Neurological exam: Present: alert, oriented X3, CN II-XII intact Psychiatric exam: Present: normal affect, normal mood Skin exam: Present: warm, dry, intact, normal color. Absent: rash <Oscar Judge - Last Filed: 05/04/24 17:31> Course <Oscar Judge - Last Filed: 05/04/24 17:31> Vital Signs 04/25/24 04/25/24 04/25/24 14:18 15:47 15:59 Temperature 97.9 F 98.1 F Pulse Rate 80 80 Respiratory 16 18 Rate Blood Pressure 122/69 134/82 O2 Sat by Pulse 99 98 Oximetry 04/25/24 04/25/24 04/26/24 17:21 22:48 06:46 Temperature Pulse Rate 87 86 79 Respiratory 18 18 16 Rate Blood Pressure 130/87 158/92 158/92 O2 Sat by Pulse 97 94 L Oximetry 04/26/24 04/26/24 04/26/24 07:00 09:17 12:00 Temperature 98.2 F Pulse Rate 74 79 79 Respiratory 18 18 20 Rate Blood Pressure 181/102 177/105 168/94 O2 Sat by Pulse 96 97 95 Oximetry 04/26/24 04/26/24 04/26/24 13:14 18:45 19:58 Temperature 98.4 F 97.9 F Pulse Rate 78 90 Respiratory 18 17 16 Rate Blood Pressure 168/101 145/91 O2 Sat by Pulse 96 99 Oximetry 04/26/24 20:00 Temperature Pulse Rate Respiratory 16 Rate Blood Pressure O2 Sat by Pulse Oximetry - Reevaluation(s) Reevaluation #1: 04/25/24 15:47 Medical records reviewed (Oscar Judge) Reevaluation #2: 04/25/24 15:47 Patient symptoms unchanged (Oscar Judge) Reevaluation #3: 04/25/24 15:47 Patient informed of results and questions answered (Oscar Judge) Reevaluation #4: Was pt. sent in by a medical professional or institution (, PA, SUPERVISOR [employer]ATING, urgent care, hospital, or longterm...) When possible be specific @ -no Did you speak to anyone other than the patient for history (EMS, parent, family, police, friend...)? What history was obtained from this source @ -no Did you review nursing and triage notes (agree or disagree)? Why? @ -agree Are old charts reviewed (outside hosp., previous admission, EMS record, old EKG, old radiological studies, urgent care reports/EKG's, longterm records)? Report findings @ -yes Differential Diagnosis (chest pain, altered mental status, abdominal pain women, abdominal pain men, vaginal bleeding, weakness, fever, dyspnea, syncope, headache, dizziness, GI bleed, back pain, seizure, CVA, palpatations, mental health, musculoskeletal)? @ -prior EKG interpreted by me (3pts min.). @ -yes X-rays interpreted by me (1pt min.). @ -yes negative for acute disease CT interpreted by me (1pt min.). @ -no U/S interpreted by me (1pt. min.). @ -no What testing was considered but not performed or refused? (CT, X-rays, U/S, labs)? Why? @ -none What meds were considered but not given or refused? Why? @ -none Did you discuss the management of the patient with other professionals (professionals i.e. , PA, SUPERVISOR [employer]ATING, lab, RT, psych nurse, social work job titles, monitor tech, teacher, police officer crime prevention, egg caser)? Give summary @ -no Was smoking cessation discussed for >3mins.? @ -no Was critical care preformed (if so, how long)? @ -yes31 Were there social determinants of health that impacted care today? How? (Homelessness, low income, unemployed, alcoholism, drug addiction, transportation, low edu. Level, literacy, decrease access to med. care, usp, rehab)? @ -none Was there de-escalation of care discussed even if they declined (Discuss DNR or withdrawal of care, Hospice)? DNR status @ -no What co-morbidities impacted this encounter? (DM, HTN, Smoking, COPD, CAD, Cancer, CVA, ARF, Chemo, Hep., AIDS, mental health diagnosis, sleep apnea, morbid obesity)? @ -none Was patient admitted / discharged? Hospital course, mention meds given and route, prescriptions, significant lab abnormalities, going to OR and other pertinent info. @ - 33 female to the ER for evaluation patient presents today for evaluation of chest pain and uncontrolled pain will admit for dialysis weakness and dizziness and observation of chest pain Admit Undiagnosed new problem with uncertain prognosis? @ -no Drug Therapy requiring intensive monitoring for toxicity (Heparin, Nitro, Insulin, Cardizem)? @ -no Were any procedures done? @ -no Diagnosis/symptom? @ -Chest pain Acute, or Chronic, or Acute on Chronic? @ -Acute Uncomplicated (without systemic symptoms) or Complicated (systemic symptoms)? @ -Complicated Side effects of treatment? @ -no Exacerbation, Progression, or Severe Exacerbation? @ -exacerbation Poses a threat to life or bodily function? How? (Chest pain, USA, MS, pneumonia, PE, COPD, DKA, ARF, appy, cholecystitis, CVA, Diverticulitis, Homicidal, Suicidal, threat to staff... and all critical care pts) @ -yes (Oscar Judge) Reevaluation #5: Differential Dizziness: Benign paroxysmal positional Vertigo, Meniere's disease, otitis media, acoustic neuroma, vertebrobasilar insufficiency, cerebellar stroke, encephalitis, hypovolemic, arrhythmia, coronary artery syndrome, anemia, this is not meant to be an all-inclusive list (Oscar Judge) - Consultations Consultation #1: Spoke with PMH who agrees to admit the patient (Oscar Judge) Chest Pain MDM <Oscar Judge - Last Filed: 05/04/24 17:31> - MDM 33 female to the ER for evaluation patient presents today for evaluation of chest pain and uncontrolled pain will admit for dialysis weakness and dizziness and observation of chest pain (Oscar Judge) Critical Care Time Critical Care Time: Yes Total Critical Care Time: 31 <Oscar Judge - Last Filed: 05/04/24 17:31> Disposition <Lisbeth Thomas - Last Filed: 04/25/24 14:48> Is patient prescribed a controlled substance at d/c from ED?: No Time of Disposition: 17:00 <Oscar Judge - Last Filed: 05/04/24 17:31> Clinical Impression: Uncontrolled hypertension, Renal failure, ESRD (end stage renal disease) on dialysis, End stage renal disease Disposition: ADMITTED IP TO THIS HOSP Condition: Fair
[2024-04-25 15:08] LABS: Anisocytosis Slight; Basophils # (A) 0.1 k/uL (0-0.2); Basophils % (A) 1 %; Eosinophils # (A) 0.3 k/uL (0-0.7); Eosinophils % (A) 5 %; HCT 31.3 % (34.0-46.0); HGB 9.8 gm/dL (11.4-16.0); Hypochromasia Slight; Lymphocytes # (A) 0.6 k/uL (1.0-4.8); Lymphocytes % (A) 12 %; MCH 28.8 pg (25.0-35.0); MCHC 31.4 g/dL (31.0-37.0); MCV 91.7 fL (80.0-100.0); Mean Platelet Volume 8.2; Monocytes # (A) 0.3 k/uL (0-1.0); Monocytes % (A) 6 %; Neutrophils % (A) 75 %; Platelet Count 235 k/uL (150-450); RBC 3.41 m/uL (3.80-5.40); RDW 18.7 % (11.5-15.5); WBC 5.3 k/uL (3.8-10.6)
[2024-04-25 15:21] LABS: ALT 9 U/L (4-34); AST 24 U/L (14-36); Albumin 4.5 g/dL (3.5-5.0); Alkaline Phosphatase 51 U/L (38-126); Anion Gap 15 mmol/L; Blood Urea Nitrogen 70 mg/dL (7-17); Calcium 10.7 mg/dL (8.4-10.2); Carbon Dioxide 28 mmol/L (22-30); Chloride 92 mmol/L (98-107); Glucose 98 mg/dL (74-99); Lipase 117 U/L (23-300); Magnesium 2.2 mg/dL (1.6-2.3); Phosphorus 8.4 mg/dL (2.5-4.5); Sodium 135 mmol/L (137-145); Total Bilirubin 0.6 mg/dL (0.2-1.3); Total Protein 8.5 g/dL (6.3-8.2)
[2024-04-25 15:27] LABS: African American GFR (CKD) 5 (>60 ml/min/1.73 sqM); Non-African American GFR(CKD) 4 (>60 ml/min/1.73 sqM)
[2024-04-25 15:29] LABS: NT-Pro-B-Type Natriuretic Pept 25200 pg/mL; Prothrombin Time 10.6 sec (10.0-12.5)
[2024-04-25 15:30] LABS: Partial Thromboplastin Time 21.5 sec (22.0-30.0)
--- NOTE | 2024-04-25 15:50 | XR ---
EXAMINATION TYPE: XR chest 2V DATE OF EXAM: 04/25/2024 COMPARISON: 01/21/2024 INDICATION: Asthma CHF TECHNIQUE: Frontal and lateral views of the chest are obtained. FINDINGS: The heart size is enlarged. The pulmonary vasculature is normal. The lungs are clear. IMPRESSION: 1. No acute pulmonary process. 2. Cardiomegaly [facility], , 04/25/2024 3:48 PM
[2024-04-25] MEDS ORDERED: NALOXONE 0.4 MG/ML 1 ML VIAL IV PRN (16:48)
[2024-04-25] MEDS: HYDROmorphone 1 MG/ML 1 ML SYRINGE IVP STA (17:25)
[2024-04-25] MEDS: SODIUM CHLORIDE 0.9% 1,000 ML IV SCH (17:27)
[2024-04-25] MEDS: ONDANSETRON 4 MG/2 ML VIAL IVP PRN (19:09)
[2024-04-25] MEDS: MORPHINE SULFATE 4 MG/ML SYRINGE IV PRN (22:51)
--- NOTE | 2024-04-26 06:49 | P.HPIM ---
History of Present Illness This is a pleasant 33 years old -[place] female with past medical history of end-stage renal disease on hemodialysis. Frequent hospitalization for abdominal pain, chest pain, hyperglycemia and hyperkalemia or pulmonary mari a. Presents this time with similar complaint of chest pain started yesterday about 7/10 in severity in the middle of the chest nonradiating felt like sharp, improved by lying down but no precipitating factors Patient denies any respiratory symptoms, not no dyspnea or coughing Patient denies GI symptoms. No urinary complaint. She feels little dizzy but no headache, no weakness or tingling or numbness She denies smoking alcohol or illicit drugs Vital stable Labs reviewed showing unremarkable CBC, BMP, liver enzymes except for elevated creatinine 9.8 Troponin always elevated at 0.5 or more less little bit EKG showing sinus rhythm at [address]-T changes Chest x-ray is negative for acute process Review of Systems Review of systems CONSTITUTIONAL: No fever, no malaise, no fatigue. HEENT: No recent visual problems or hearing problems. Denied any sore throat. CARDIOVASCULAR: No orthopnea, PND, no palpitations, no syncope. PULMONARY: No shortness of breath, no cough, no hemoptysis. GASTROINTESTINAL: No diarrhea, no nausea, no vomiting, no abdominal pain. Normoactive bowel sounds. NEUROLOGICAL: No headaches, no weakness, no numbness. HEMATOLOGICAL: Denies any bleeding or petechiae. GENITOURINARY: Denies any burning micturition, frequency, or urgency. MUSCULOSKELETAL/RHEUMATOLOGICAL: Denies any joint pain, swelling, or any muscle pain. ENDOCRINE: Denies any polyuria or polydipsia. 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 History of Any Multi-Drug Resistant Organisms: None Reported Past Surgical History: Heart Catheterization, Hernia Repair Additional Past Surgical History / Comment(s): 06/14/18 cardiac cath at [facility] to check coronary pressures, 11/15/09 Failed kidney transplant R pelvis, dialysis catheter in and out, current L upper arm AVG, supra pubic hernia repair, transvaginal mesh, wisdom teeth extraction with anesthesia, 2017 failed kidney transplant Past Anesthesia/Blood Transfusion Reactions: No Reported Reaction Additional Past Anesthesia/Blood Transfusion Reaction / Comment(s): Pt has received blood in past without reaction. Past Psychological History: Anxiety, Depression Smoking Status: Former smoker Past Alcohol Use History: None Reported Past Drug Use History: None Reported - Past Family History Father Family Medical History: No Reported History Additional Family Medical History / Comment(s): Father is healthy and is 62 yrs old. Mother Family Medical History: No Reported History Additional Family Medical History / Comment(s): Mother is healthy and is 60 yrs old. Medications and Allergies Home Medications Medication Instructions Recorded Confirmed Type Albuterol Sulfate [Proair Hfa] 2 puff INHALATION RT-Q6H PRN 01/22/16 04/25/24 History Calcium Acetate [PhosLo] 2,668 mg PO TID-W/MEALS 05/01/20 04/25/24 History calcitrioL 3 mcg PO DAILY 10/29/21 04/25/24 History Acetaminophen Tab [Tylenol] 1,000 mg PO Q6HR PRN 05/26/22 04/25/24 History Calcium Acetate [PhosLo] 1,334 mg PO DAILY PRN 05/26/22 04/25/24 History Sodium Zirconium Cyclosilicate 10 gm PO DAILY PRN 03/23/23 04/25/24 History [Lokelma] Lactulose 10 gm PO DAILY PRN 09/05/23 04/25/24 History carvediloL [Coreg*] 25 mg PO BID-W/MEALS 09/05/23 04/25/24 History NIFEdipine XL [Procardia XL] 90 mg PO DAILY 11/28/23 04/25/24 History hydrALAZINE HCL [Apresoline] 100 mg PO TID 01/21/24 04/25/24 History Ondansetron [Zofran] 4 mg PO Q8H PRN 04/25/24 04/25/24 History Allergies Allergy/AdvReac Type Severity Reaction Status Date / Time vancomycin Allergy Anaphylaxis Verified 04/25/24 17:10 /Itching hydralazine AdvReac Rapid Verified 04/25/24 17:10 Heart Rate WHEN GIVEN THROUGH IV Physical Exam Vitals: Vital Signs Temp Pulse Resp BP Pulse Ox 04/25/24 22:48 86 18 158/92 94 L 04/25/24 17:21 87 18 130/87 97 04/25/24 15:59 98.1 F 04/25/24 15:47 80 18 134/82 98 04/25/24 14:18 97.9 F 80 16 122/69 99 Intake and Output 04/25/24 04/25/24 04/26/24 14:59 22:59 06:59 Other: Weight 54.431 kg GENERAL: The patient is alert and oriented x3, not in any acute distress. Well developed, well nourished. HEENT: Pupils are round and equally reacting to light. EOMI. No scleral icterus. No conjunctival pallor. Normocephalic, atraumatic. No pharyngeal erythema. No thyromegaly. -CARDIOVASCULAR: S1 and S2 present. No murmurs, rubs, or gallops. Tenderness in the middle of the chest PULMONARY: Chest is clear to auscultation, no wheezing , no crackles. ABDOMEN: Soft, nontender, nondistended, normoactive bowel sounds. No palpable organomegaly. MUSCULOSKELETAL: No joint swelling or deformity. EXTREMITIES: No cyanosis, clubbing, or pedal edema. NEUROLOGICAL: Gross neurological examination did not reveal any focal deficits. SKIN: No rashes. no petechiae. Results CBC & Chem 7: 04/25/24 14:51 04/25/24 14:51 Labs: Abnormal Lab Results - Last 24 Hours (Table) 04/25/24 04/25/24 04/25/24 Range/Units 14:51 14:51 14:51 RBC 3.41 L (3.80-5.40) m/uL Hgb 9.8 L (11.4-16.0) gm/dL Hct 31.3 L (34.0-46.0) % RDW 18.7 H (11.5-15.5) % Lymphocytes # 0.6 L (1.0-4.8) k/uL APTT 21.5 L (22.0-30.0) sec Sodium 135 L (137-145) mmol/L Chloride 92 L (98-107) mmol/L BUN 70 H (7-17) mg/dL Creatinine 11.13 H* (0.52-1.04) mg/dL Calcium 10.7 H (8.4-10.2) mg/dL Phosphorus 8.4 H (2.5-4.5) mg/dL Troponin I (0.000-0.034) ng/mL Total Protein 8.5 H (6.3-8.2) g/dL 04/25/24 04/25/24 04/25/24 Range/Units 14:51 17:23 20:30 RBC (3.80-5.40) m/uL Hgb (11.4-16.0) gm/dL Hct (34.0-46.0) % RDW (11.5-15.5) % Lymphocytes # (1.0-4.8) k/uL APTT (22.0-30.0) sec Sodium (137-145) mmol/L Chloride (98-107) mmol/L BUN (7-17) mg/dL Creatinine (0.52-1.04) mg/dL Calcium (8.4-10.2) mg/dL Phosphorus (2.5-4.5) mg/dL Troponin I 0.052 H* 0.052 H* 0.050 H* (0.000-0.034) ng/mL Total Protein (6.3-8.2) g/dL Assessment and Plan Assessment: Chest pain, most likely musculoskeletal. Rule out cardiac causes. The suspicion of pulmonary disease as a cause for chest pain is very low. Patient with no respiratory symptoms and she saturates more than 95% on room air End-stage renal disease on hemodialysis Asthma, not an active issue Hypertension CHF, systolic with EF 35 to 40%, with mild to moderate mitral regurgitation, no acute exacerbation Anxiety and depression, not an active issue Plan: Cardiology consult Continue monitoring Continue hemodialysis per eyelet cutter GI prophylaxis and DVT prophylaxis Overall prognosis is guarded including long-term
[2024-04-26] MEDS: NIFEdipine XL 90 MG TAB.ER.24 PO SCH (09:17)
[2024-04-26] MEDS: carvediloL 12.5 MG TAB PO SCH (09:17)
[2024-04-26] MEDS: hydrALAZINE HCL 50 MG TAB PO SCH (09:17)
[2024-04-26 09:19] LABS: Basophils # (A) 0.05 X 10*3/uL (0.00-0.10); Basophils % (A) 1.1 %; Eosinophils # (A) 0.31 X 10*3/uL (0.04-0.35); HGB 8.7 g/dL (12.0-15.0); Lymphocytes # (A) 1.09 X 10*3/uL (0.90-5.00); Lymphocytes % (A) 24.5 %; MCHC 31.1 g/dL (32.0-37.0); MCV 93.3 FL (80.0-97.0); Mean Platelet Volume 11.3 FL (9.5-12.2); Monocytes # (A) 0.55 X 10*3/uL (0.20-1.00); Monocytes % (A) 12.4 %; NRBC Per 100 WBC 0 X 10*3/uL (0.00-0.01); Neutrophils # (A) 2.44 X 10*3/uL (1.80-7.70); Neutrophils % (A) 54.8 %; Platelet Count 217 X 10*3/uL (140-440); RDW 18.6 % (11.5-14.5); WBC 4.45 X 10*3/uL (4.50-10.00)
[2024-04-26] MEDS ORDERED: ALPRAZolam 0.25 MG TAB PO PRN (09:21)
[2024-04-26] MEDS ORDERED: NITROGLYCERIN SL TABS 0.4 MG TAB SUBLINGUAL PRN (09:21)
[2024-04-26 09:34] LABS: Magnesium 2.4 mg/dL (1.5-2.4)
--- NOTE | 2024-04-26 10:06 | P.CRDCN ---
History of Present Illness History of present illness: HISTORY OF PRESENT ILLNESS: This is a 33-year-old female with a past medical history significant for end- stage renal disease on hemodialysis, kidney transplant, hypertension, congestive heart failure, pulmonary hypertension, and valvular heart disease. Patient follows in the office with Dr. Larios. We have been asked to see the patient in consultation for chest pain. Patient examined at the bedside. Patient presented to the hospital to chief complaint of chest discomfort. She states that she was sitting at home when she began to have sharp pain in the middle of her chest. She denied any radiation of the pain. She does report feeling dizzy and having occasional palpitations as well. She denies any syncopal episodes. She states on Wednesday she was unable to finish her whole hemodialysis treatment because she was not feeling well. The patient reports she has had multiple episodes of chest pain in the past. She denies having any previous stress test. She reports having a cardiac catheterization about 5 years ago which was normal to her knowledge. There is no report available at this time. DIAGNOSTICS: - EKG reveals sinus mechanism with no signs of acute ischemia. LVH. Left axis deviation. - Chest xray negative for acute process. Cardiomegaly. - Laboratory data: WBC 4.45. Hemoglobin 8.7. Platelet count 217. Sodium 135. Potassium 5.0. BUN 70. Creatinine 11.13. Magnesium 2.4. Troponin 0.052. 0.052. 0.050. proBNP 25,200. - Current home cardiac medications include nifedipine 90 mg daily, carvedilol 25 mg twice a day, hydralazine 100 mg 3 times a day. - Most recent echocardiogram obtained in March 2024 in the office revealed ejection fraction 55%, moderate concentric LVH, moderate to severe AR, mild MR, moderate TR REVIEW OF SYSTEMS: At the time of my exam: CONSTITUTIONAL: Denies fever or chills. HEENT: Denies blurred vision, vision changes, or eye pain. Denies hemoptysis CARDIOVASCULAR: Denies chest pain. Denies orthopnea. Denies PND. Denies palpitations RESPIRATORY: Denies shortness of breath. GASTROINTESTINAL: Denies abdominal pain. Denies nausea or vomiting. HEMATOLOGIC: Denies bleeding disorders. GENITOURINARY: Denies any blood in urine. SKIN: Denies pruitis. Denies rash. PHYSICAL EXAM: VITAL SIGNS: Reviewed. GENERAL: Well-developed in no acute distress. HEENT: Head is normocephalic. Pupils are equal, round. Sclerae anicteric. Mucous membranes of the mouth are moist. Neck supple. No JVD or thyromegaly LUNGS: Respirations even and unlabored. Lungs essentially clear to auscultation bilaterally. HEART: Regular rate and rhythm. S1 and S2 heard. Systolic and diastolic murmur noted ABDOMEN: Soft. Nondistended. Nontender. EXTREMITIES: Normal range of motion. No clubbing or cyanosis. Peripheral pulses intact. No lower extremity edema NEUROLOGIC: Awake and alert. Oriented x 3. ASSESSMENT: Recurrent chest pain End-stage renal disease on hemodialysis Chronically elevated troponins secondary to end-stage renal disease, no myocardial injury or ischemia Chronic heart failure with preserved EF, currently euvolemic Severe pulmonary hypertension LVH Valvular heart disease including moderate to severe AR, mild MR, moderate TR PLAN: Obtain limited echo to assess LV function and wall motion abnormalities Resume home cardiac medications Hemodialysis per nephrology N.p.o. at midnight Patient to undergo cardiac catheterization tomorrow with Dr. Larios Further recommendations pending patient course Nurse practitioner note has been reviewed by physician. Signing provider agrees with the documented findings, assessment, and plan of care documented by [employer] as a scribe. 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 History of Any Multi-Drug Resistant Organisms: None Reported Past Surgical History: Heart Catheterization, Hernia Repair Additional Past Surgical History / Comment(s): 06/14/18 cardiac cath at [facility] to check coronary pressures, 11/15/09 Failed kidney transplant R pelvis, dialysis catheter in and out, current L upper arm AVG, supra pubic hernia repair, transvaginal mesh, wisdom teeth extraction with anesthesia, 2016 failed kidney transplant Past Anesthesia/Blood Transfusion Reactions: No Reported Reaction Additional Past Anesthesia/Blood Transfusion Reaction / Comment(s): Pt has received blood in past without reaction. Past Psychological History: Anxiety, Depression Smoking Status: Former smoker Past Alcohol Use History: None Reported Past Drug Use History: None Reported - Past Family History Father Family Medical History: No Reported History Additional Family Medical History / Comment(s): Father is healthy and is 62 yrs old. Mother Family Medical History: No Reported History Additional Family Medical History / Comment(s): Mother is healthy and is 60 yrs old. Medications and Allergies Home Medications Medication Instructions Recorded Confirmed Type Albuterol Sulfate [Proair Hfa] 2 puff INHALATION RT-Q6H PRN 01/22/16 04/25/24 History Calcium Acetate [PhosLo] 2,668 mg PO TID-W/MEALS 05/01/20 04/25/24 History calcitrioL 3 mcg PO DAILY 10/29/21 04/25/24 History Acetaminophen Tab [Tylenol] 1,000 mg PO Q6HR PRN 05/26/22 04/25/24 History Calcium Acetate [PhosLo] 1,334 mg PO DAILY PRN 05/26/22 04/25/24 History Sodium Zirconium Cyclosilicate 10 gm PO DAILY PRN 03/23/23 04/25/24 History [Lokelma] Lactulose 10 gm PO DAILY PRN 09/05/23 04/25/24 History carvediloL [Coreg*] 25 mg PO BID-W/MEALS 09/05/23 04/25/24 History NIFEdipine XL [Procardia XL] 90 mg PO DAILY 11/28/23 04/25/24 History hydrALAZINE HCL [Apresoline] 100 mg PO TID 01/21/24 04/25/24 History Ondansetron [Zofran] 4 mg PO Q8H PRN 04/25/24 04/25/24 History Allergies Allergy/AdvReac Type Severity Reaction Status Date / Time vancomycin Allergy Anaphylaxis Verified 04/25/24 17:10 /Itching hydralazine AdvReac Rapid Verified 04/25/24 17:10 Heart Rate WHEN GIVEN THROUGH IV Physical Exam Vitals: Vital Signs Temp Pulse Resp BP Pulse Ox 04/26/24 07:00 74 18 181/102 96 04/26/24 06:46 79 16 158/92 04/25/24 22:48 86 18 158/92 94 L 04/25/24 17:21 87 18 130/87 97 04/25/24 15:59 98.1 F 04/25/24 15:47 80 18 134/82 98 04/25/24 14:18 97.9 F 80 16 122/69 99 Results 04/26/24 03:47 04/25/24 14:51 Cardiac Enzymes 04/25/24 04/25/24 04/25/24 Range/Units 14:51 14:51 17:23 AST 24 (14-36) U/L Troponin I 0.052 H* 0.052 H* (0.000-0.034) ng/mL 04/25/24 Range/Units 20:30 AST (14-36) U/L Troponin I 0.050 H* (0.000-0.034) ng/mL Coagulation 04/25/24 Range/Units 14:51 PT 10.6 (10.0-12.5) sec APTT 21.5 L (22.0-30.0) sec CBC 04/25/24 Range/Units 14:51 WBC 5.3 (3.8-10.6) k/uL RBC 3.41 L (3.80-5.40) m/uL Hgb 9.8 L (11.4-16.0) gm/dL Hct 31.3 L (34.0-46.0) % Plt Count 235 (150-450) k/uL Comprehensive Metabolic Panel 04/25/24 Range/Units 14:51 Sodium 135 L (137-145) mmol/L Potassium 5.0 (3.5-5.1) mmol/L Chloride 92 L (98-107) mmol/L Carbon Dioxide 28 (22-30) mmol/L BUN 70 H (7-17) mg/dL Creatinine 11.13 H* (0.52-1.04) mg/dL Glucose 98 (74-99) mg/dL Calcium 10.7 H (8.4-10.2) mg/dL AST 24 (14-36) U/L ALT 9 (4-34) U/L Alkaline Phosphatase 51 (38-126) U/L Total Protein 8.5 H (6.3-8.2) g/dL Albumin 4.5 (3.5-5.0) g/dL Current Medications Generic Name Dose Route Start Last Admin Trade Name Freq PRN Reason Stop Dose Admin Sodium Chloride 1,000 mls @ 20 mls/hr 04/25/24 17:00 04/25/24 17:27 Saline 0.9% IV 20 mls/hr .Q24H SELENE Administration Morphine Sulfate 4 mg 04/25/24 16:53 04/26/24 06:49 Morphine Sulfate 4 Mg/Ml Syringe IV 4 mg Q4HR PRN Administration Severe Pain (Scale 7 to 10) Naloxone HCl 0.2 mg 04/25/24 16:48 Naloxone 0.4 Mg/Ml 1 Ml Vial IV Q2M PRN Opioid Reversal Ondansetron HCl 4 mg 04/25/24 16:53 04/25/24 19:09 Ondansetron 4 Mg/2 Ml Vial IVP 4 mg Q8HR PRN Administration Nausea And Vomiting 04/25/24 14:51 04/25/24 14:51
[2024-04-26 11:48] LABS: ALT 11 U/L (8-44); AST 14 U/L (13-35); Albumin 3.8 g/dL (3.8-4.9); Albumin/Globulin Ratio 1.15 Ratio (1.60-3.17); Alkaline Phosphatase 49 U/L (41-126); BUN/Creat Ratio 5.79 Ratio (12.00-20.00); Blood Urea Nitrogen 74.1 mg/dL (9.0-27.0); Calcium 10.1 mg/dL (8.7-10.3); Carbon Dioxide 23.5 mmol/L (21.6-31.8); Chloride 95 mmol/L (96-109); Globulin 3.3 g/dL (1.6-3.3); Glucose 92 mg/dL (70-110); Phosphorus 9.2 mg/dL (2.4-5.1); Potassium 5.2 mmol/L (3.5-5.5); Sodium 135 mmol/L (135-145); Total Bilirubin 0.2 mg/dL (0.3-1.2); Total Protein 7.1 g/dL (6.2-8.2)
[2024-04-26] MEDS ORDERED: hydrALAZINE HCL 20 MG/ML 1 ML VIAL IVP PRN (12:41)
--- NOTE | 2024-04-26 12:43 | P.NPCON ---
History of Present Illness - Reason for Consult end stage renal disease - History of Present Illness Reason for consultation: End-stage renal disease History of present illness: Patient is a 33-year-old female seen in renal consultation for end-stage renal disease. She is maintained on hemodialysis on Wednesday schedule. Patient was seen and examined in the emergency room. Patient came to the hospital due to chest pain which began yesterday morning. Patient denies any exertional activity. Patient describes the pain as sharp in the middle of her chest. Patient denies prior history of coronary artery disease but does have history of CHF. Patient says she does not make urine. Denies history of diabetes. Denies missing any dialysis treatments but states she had to cut her treatment short a little bit on Wednesday due to dizziness. Blood pressure is not low. She is on room air. Denies any syncopal episodes. No fever or chills. Vital signs are stable. General: No acute distress. HEENT: Head exam is unremarkable. LUNGS: No audible rhonchi or wheezes. HEART: Rate and Rhythm are regular. ABDOMEN: Nontender. EXTREMITITES: No edema. 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 History of Any Multi-Drug Resistant Organisms: None Reported Past Surgical History: Heart Catheterization, Hernia Repair Additional Past Surgical History / Comment(s): 06/14/18 cardiac cath at [facility] to check coronary pressures, 11/15/09 Failed kidney transplant R pelvis, dialysis catheter in and out, current L upper arm AVG, supra pubic hernia repair, transvaginal mesh, wisdom teeth extraction with anesthesia, 2016 failed kidney transplant Past Anesthesia/Blood Transfusion Reactions: No Reported Reaction Additional Past Anesthesia/Blood Transfusion Reaction / Comment(s): Pt has received blood in past without reaction. Past Psychological History: Anxiety, Depression Smoking Status: Former smoker Past Alcohol Use History: None Reported Past Drug Use History: None Reported - Past Family History Father Family Medical History: No Reported History Additional Family Medical History / Comment(s): Father is healthy and is 62 yrs old. Mother Family Medical History: No Reported History Additional Family Medical History / Comment(s): Mother is healthy and is 60 yrs old. Medications and Allergies Home Medications Medication Instructions Recorded Confirmed Type Albuterol Sulfate [Proair Hfa] 2 puff INHALATION RT-Q6H PRN 01/22/16 04/25/24 Hi story Calcium Acetate [PhosLo] 2,668 mg PO TID-W/MEALS 05/01/20 04/25/24 History calcitrioL 3 mcg PO DAILY 10/29/21 04/25/24 History Acetaminophen Tab [Tylenol] 1,000 mg PO Q6HR PRN 05/26/22 04/25/24 History Calcium Acetate [PhosLo] 1,334 mg PO DAILY PRN 05/26/22 04/25/24 History Sodium Zirconium Cyclosilicate 10 gm PO DAILY PRN 03/23/23 04/25/24 History [Lokelma] Lactulose 10 gm PO DAILY PRN 09/05/23 04/25/24 History carvediloL [Coreg*] 25 mg PO BID-W/MEALS 09/05/23 04/25/24 History NIFEdipine XL [Procardia XL] 90 mg PO DAILY 11/28/23 04/25/24 History hydrALAZINE HCL [Apresoline] 100 mg PO TID 01/21/24 04/25/24 History Ondansetron [Zofran] 4 mg PO Q8H PRN 04/25/24 04/25/24 History Allergies Allergy/AdvReac Type Severity Reaction Status Date / Time vancomycin Allergy Anaphylaxis Verified 04/25/24 17:10 /Itching hydralazine AdvReac Rapid Verified 04/25/24 17:10 Heart Rate WHEN GIVEN THROUGH IV Physical Exam Vitals: Vital Signs Temp Pulse Resp BP Pulse Ox 04/26/24 12:00 79 20 168/94 95 04/26/24 09:17 98.2 F 79 18 177/105 97 04/26/24 07:00 74 18 181/102 96 04/26/24 06:46 79 16 158/92 04/25/24 22:48 86 18 158/92 94 L 04/25/24 17:21 87 18 130/87 97 04/25/24 15:59 98.1 F 04/25/24 15:47 80 18 134/82 98 04/25/24 14:18 97.9 F 80 16 122/69 99 Results - Lab Results Most recent lab results Calcium 10.1 mg/dL (8.7-10.3) 04/26/24 04:07 Phosphorus 9.2 mg/dL (2.4-5.1) A* 04/26/24 04:07 Magnesium 2.4 mg/dL (1.5-2.4) 04/26/24 04:07 04/26/24 03:47 04/26/24 04:07 Assessment and Plan Plan: Assessment: 1. End-stage renal disease maintained on hemodialysis on Wednesday schedule. 2. Recurrent chest pain being followed by cardiology. Echocardiogram pending. 3. Chronic diastolic CHF with moderate to severe aortic regurgitation, moderate tricuspid regurgitation, mild mitral regurgitation and severe pulmonary hypertension. 4. Anemia of chronic kidney disease. 5. Chronic kidney disease mineral bone disease. Status post parathyroidectomy. Calcium level 10.1. Phosphorus level 9.2. Plan: Hemodialysis today. Hold calcitriol for now. Resume PhosLo with meals. Home antihypertensives resumed. Add as needed hydralazine. Follow-up echocardiogram. Check iron studies. Thank you for the consultation. I will continue to follow the patient with you during her hospital stay.
[2024-04-26] MEDS: METOCLOPRAMIDE 5 MG/ML 2 ML VIAL IVP STA (19:34)
[2024-04-26] MEDS: CALCIUM ACETATE 667 MG TAB PO SCH (21:38)
[2024-04-26] MEDS: ONDANSETRON 4 MG/2 ML VIAL IVP PRN (22:08)
[2024-04-26] MEDS: ALPRAZolam 0.5 MG TAB PO PRN (22:08)
[2024-04-27] MEDS: SODIUM CHLORIDE 0.9% 1,000 ML in EMPTY BAG 1 BAG IV SCH (02:31)
[2024-04-27 03:29] LABS: % Iron Saturation 28.89 (12.00-45.00)
[2024-04-27] MEDS: ATORVASTATIN 80 MG TAB PO ONE (05:36)
[2024-04-27] MEDS: ASPIRIN 325 MG TAB PO ONE (05:36)
[2024-04-27 05:41] LABS: Glucose,Whole Blood 101 mg/dL (70-110)
[2024-04-27] MEDS ORDERED: HEPARIN SODIUM,PORCINE (1 ML) 2,500 UNIT in SODIUM CHLORIDE 0.9% 250 ML IRRIGATION PRN (07:00)
[2024-04-27] MEDS ORDERED: HEPARIN SODIUM,PORCINE 10,000 UNIT in SODIUM CHLORIDE 0.9% 1,000 ML IRRIGATION PRN (07:00)
[2024-04-27] MEDS: MIDAZOLAM 2 MG/2 ML VIAL IVP ONE ×4 (07:32→08:00)
[2024-04-27] MEDS: LIDOCAINE 1% INJ 10MG/ML (20 ML MDV) SQ ONE (07:33)
[2024-04-27] MEDS: IOPAMIDOL-370 100ML BTL INJ ONE (08:02)
[2024-04-27] MEDS: SODIUM CHLORIDE 0.9% 250 ML IV ONE (08:02)
[2024-04-27] MEDS: HEPARIN SODIUM,PORCINE 10,000 UNIT in SODIUM CHLORIDE 0.9% 1,000 ML IRRIGATION ONE (08:03)
[2024-04-27] MEDS: HEPARIN SODIUM,PORCINE (1 ML) 2,500 UNIT in SODIUM CHLORIDE 0.9% 250 ML IRRIGATION ONE (08:04)
[2024-04-27] MEDS ORDERED: RX INFO: IV CONTRAST WAS GIVEN 1 EACH MISC MISCELLANE PRN (09:28)
[2024-04-27] MEDS: SODIUM CHLORIDE 0.9% 1,000 ML IV SCH (10:39)
[2024-04-27 11:13] LABS: Basophils # (A) 0.04 X 10*3/uL (0.00-0.10); Eosinophils # (A) 0.29 X 10*3/uL (0.04-0.35); Eosinophils % (A) 7.5 %; HCT 27.2 % (37.2-46.3); HGB 8.5 g/dL (12.0-15.0); Lymphocytes # (A) 0.94 X 10*3/uL (0.90-5.00); Lymphocytes % (A) 24.4 %; MCHC 31.3 g/dL (32.0-37.0); MCV 92.8 FL (80.0-97.0); Mean Platelet Volume 10.7 FL (9.5-12.2); Monocytes # (A) 0.54 X 10*3/uL (0.20-1.00); NRBC Per 100 WBC 0 X 10*3/uL (0.00-0.01); Neutrophils # (A) 2.04 X 10*3/uL (1.80-7.70); Neutrophils % (A) 52.8 %; Platelet Count 197 X 10*3/uL (140-440); RBC 2.93 X 10*6/uL (4.10-5.20); RDW 17.9 % (11.5-14.5); WBC 3.86 X 10*3/uL (4.50-10.00)
[2024-04-27 11:23] LABS: Magnesium 2.1 mg/dL (1.5-2.4)
[2024-04-27 11:49] LABS: ALT 9 U/L (8-44); AST 15 U/L (13-35); Albumin 3.7 g/dL (3.8-4.9); Albumin/Globulin Ratio 1.16 Ratio (1.60-3.17); Alkaline Phosphatase 49 U/L (41-126); BUN/Creat Ratio 4.22 Ratio (12.00-20.00); Blood Urea Nitrogen 34.6 mg/dL (9.0-27.0); Carbon Dioxide 24.9 mmol/L (21.6-31.8); Chloride 97 mmol/L (96-109); Globulin 3.2 g/dL (1.6-3.3); Glucose 87 mg/dL (70-110); Sodium 135 mmol/L (135-145); Total Bilirubin 0.2 mg/dL (0.3-1.2); Total Protein 6.9 g/dL (6.2-8.2)
--- NOTE | 2024-04-27 11:50 | P.PN ---
Subjective Patient is seen in follow-up for end-stage renal disease. She is maintained on hemodialysis on Wednesday schedule. No problems with dialysis yesterday. Hemodynamically stable. Chest pain improved. Underwent cardiac cath this morning. Vital signs are stable. General: No acute distress. HEENT: Head exam is unremarkable. LUNGS: No audible rhonchi or disease. HEART: Rate and Rhythm are regular. ABDOMEN: Nontender. EXTREMITITES: No edema. Objective - Vital Signs Vital signs: Vital Signs Temp 98.6 F 04/27/24 08:30 Pulse 76 04/27/24 08:30 Resp 17 04/27/24 07:00 BP 151/86 04/27/24 08:30 Pulse Ox 98 04/27/24 08:30 FiO2 Intake & Output 04/26/24 04/27/24 04/27/24 18:59 06:59 18:59 Intake Total 7600 168 Output Total 7200 Balance 400 168 Weight 56.5 kg Intake: IV 50 Oral 400 118 Hemodialysis 7200 Output: Hemodialysis 1200 Hemodialysis Net Amount 6000 Other: # Voids 0 - Labs CBC & Chem 7: 04/27/24 06:51 04/26/24 04:07 Labs: Abnormal Lab Results - Last 24 Hours (Table) 04/26/24 04/26/24 04/27/24 Range/Units 04:07 04:07 06:51 WBC 3.86 L (4.50-10.00) X 10*3/uL RBC 2.93 L (4.10-5.20) X 10*6/uL Hgb 8.5 L (12.0-15.0) g/dL Hct 27.2 L (37.2-46.3) % MCHC 31.3 L (32.0-37.0) g/dL RDW 17.9 H (11.5-14.5) % Chloride 95 L (96-109) mmol/L Anion Gap 16.50 H (4.00-12.00) mmol/L BUN 74.1 H (9.0-27.0) mg/dL Creatinine 12.8 A* (0.6-1.5) mg/dL Est GFR (CKD-EPI) 4 L (>=60) BUN/Creatinine Ratio 5.79 L (12.00-20.00) Ratio Phosphorus 9.2 A* (2.4-5.1) mg/dL TIBC 225 L (228-460) UG/DL Transferrin 161.0 L (204.0-354.0) mg/dL Ferritin 1883.0 H (10.0-291.0) ng/mL Total Bilirubin 0.2 L (0.3-1.2) mg/dL Albumin/Globulin Ratio 1.15 L (1.60-3.17) Ratio Assessment and Plan Plan: Assessment: 1. End-stage renal disease maintained on hemodialysis on Wednesday schedule. 2. Recurrent chest pain being followed by cardiology. Status post cardiac cath this admission with no intervention. 3. Chronic diastolic CHF with moderate to severe aortic regurgitation, moderate tricuspid regurgitation, mild mitral regurgitation and severe pulmonary hypertension. 4. Anemia of chronic kidney disease. Iron replete. 5. Chronic kidney disease mineral bone disease. Status post parathyroidectomy. Calcium level 10.1. Phosphorus level 9.2. On PhosLo. Calcitriol currently held. Plan: Hemodialysis tomorrow. Add Aranesp. Hep-Lock IV fluids.
[2024-04-27] MEDS: HYDROcodone/APAP 5-325MG 1 EACH TAB PO PRN (11:59)
[2024-04-27] MEDS: DARBEPOETIN ALFA 40 MCG/0.4 ML SYRINGE SQ SCH (12:28)
[2024-04-27 14:18] VITALS: BP 124/71; PULSE 78; RESP 16; TEMP 98.5
--- NOTE | 2024-04-27 14:51 | CC ---
CARDIAC CATHETERIZATION REPORT INDICATION: Precordial chest pain. INDICATIONS: This is a 33-year-old lady with end-stage renal disease, on hemodialysis, who presented to the hospital with chest discomfort that was concerning for unstable angina, was evaluated by my associate, Dr. Rodriguez, who advised her to undergo cardiac catheterization. I have been asked to perform the test. The patient understands the risks, benefits, and alternatives. PROCEDURE NOTE: After obtaining informed consent, the left heart catheterization and coronary angiogram were performed via the right femoral artery using standard Ashish catheter. The patient tolerated the procedure well without any obvious immediate complications. Total sedation time was 29 minutes. A femoral angiogram was performed, and Angio-Seal will be deployed for hemostasis. I initially attempted right radial artery catheterization. We could not obtain arterial access. Hence, I proceeded with the femoral catheterization, which was completed uneventfully. FINDINGS: 1. Hemodynamics: Left ventricular end-diastolic pressure was 24 to 28 mm. There is no significant gradient across the aortic valve. 2. Left ventriculogram: The left ventriculogram is not performed. 3. Angiographic data: a.Right coronary artery: The right coronary artery is a large dominant vessel and is free of significant stenosis. b.Left main coronary artery is a normal-sized vessel and is free of disease. It divides into left anterior descending coronary artery and circumflex coronary artery. c.LAD and its branches, circumflex coronary artery and its branches are free of significant stenosis. CONCLUSIONS: Normal coronary arteries. PLAN: The patient's chest discomfort is noncardiac in origin and her management is going to be with medical therapy. She especially needs optimal and aggressive therapy for her underlying hypertension. She is to undergo dialysis tomorrow and discharged home after that. MMODL / IJN: [id number] /
--- NOTE | 2024-04-28 05:35 | P.DS ---
Providers Date of admission: 04/26/24 13:44 Attending physician: Agnieszka Travis Consults: 04/25/24 16:53 Consult Physician Routine Consulting Provider: Robin George Consult Reason/Comments: ESRD Do you want consulting provider notified?: Yes 04/25/24 18:38 Consult Physician Routine Consulting Provider: Misti Mast Consult Reason/Comments: Chest pain, Shortness of Breath Do you want consulting provider notified?: Yes Primary care physician: [facility] Course: Diagnoses: Chest pain, most likely musculoskeletal. Associated with tenderness. Had negative cardiac cath. Result End-stage renal disease on hemodialysis Asthma, not an active issue Hypertension CHF, systolic with EF 35 to 40%, with mild to moderate mitral regurgitation, no acute exacerbation Anxiety and depression, not an active issue Hospital course: This is a pleasant 33 years old -Stateless female with past medical history of end-stage renal disease on hemodialysis. Frequent hospitalization for abdominal pain, chest pain, hyperglycemia and hyperkalemia or pulmonary edema. Presents this time with similar complaint of chest pain started yesterday about 7/10 in severity in the middle of the chest nonradiating felt like sharp, improved by lying down but no precipitating factors Patient evaluated by director client. She underwent cardiac cath showing did not show a remarkable coronary artery disease. Her chest pain was associated with some tenderness. Improved. On the day of discharge she was complaining from some pain in her groin but no chest pain. No dyspnea. She denies any respiratory symptoms. She was saturating 98% on room air. No tachypnea. She denies any other new complaint. Vitals and blood pressure controlled upon discharge Prescribed pain medication upon discharge Patient underwent hemodialysis by hiv counselor recommendation On the day of discharge patient denies any other new symptoms and she agrees to go home. Also she was cleared for discharge by director client today. Problems and management plan were discussed with the patient and he verbalized understanding and acceptance Patient was found stable and can be discharged home in guarded prognosis however he needs follow-up as an outpatient. Patient was instructed to follow up with PCP Dr. Cooper within one week and patient agrees Patient was instructed to follow-up with director client Dr. Holcomb in 1 week after discharge and she agrees Physical exam Gen: patient is a AAOx3, no distress CVS: S1-S2, RRR, no murmur Lungs: B/L CTA, no wheezing Abdomen: soft, no distention, no tenderness, positive bowel sounds Extremity: no leg edema or induration Time spent more than 35 minutes Patient Condition at Discharge: Fair Plan - Discharge Summary New Discharge Prescriptions: New Ibuprofen [Motrin] 400 mg PO Q12HR PRN 2 Days #4 tab PRN Reason: Severe Pain (Scale 7 To 10) Continue Albuterol Sulfate [Proair Hfa] 2 puff INHALATION RT-Q6H PRN PRN Reason: Shortness Of Breath Calcium Acetate [PhosLo] 2,668 mg PO TID-W/MEALS Acetaminophen Tab [Tylenol] 1,000 mg PO Q6HR PRN PRN Reason: Pain Or Fever > 100.5 NIFEdipine XL [Procardia XL] 90 mg PO DAILY hydrALAZINE HCL [Apresoline] 100 mg PO TID calcitrioL 1.5 mcg PO DAILY Calcium Acetate [PhosLo] 1,334 mg PO DAILY PRN PRN Reason: WITH SNACKS Sodium Zirconium Cyclosilicate [Lokelma] 10 gm PO DAILY PRN PRN Reason: high potassium Lactulose 10 gm PO DAILY PRN PRN Reason: Constipation carvediloL [Coreg*] 25 mg PO BID-W/MEALS Ondansetron [Zofran] 4 mg PO Q8H PRN PRN Reason: Nausea And Vomiting Discharge Medication List Albuterol Sulfate [Proair Hfa] 2 puff INHALATION RT-Q6H PRN 01/22/16 [History] Calcium Acetate [PhosLo] 2,668 mg PO TID-W/MEALS 05/01/20 [History] calcitrioL 1.5 mcg PO DAILY 10/29/21 [History] Acetaminophen Tab [Tylenol] 1,000 mg PO Q6HR PRN 05/26/22 [History] Calcium Acetate [PhosLo] 1,334 mg PO DAILY PRN 05/26/22 [History] Sodium Zirconium Cyclosilicate [Lokelma] 10 gm PO DAILY PRN 03/23/23 [History] Lactulose 10 gm PO DAILY PRN 09/05/23 [History] carvediloL [Coreg*] 25 mg PO BID-W/MEALS 09/05/23 [History] NIFEdipine XL [Procardia XL] 90 mg PO DAILY 11/28/23 [History] hydrALAZINE HCL [Apresoline] 100 mg PO TID 01/21/24 [History] Ondansetron [Zofran] 4 mg PO Q8H PRN 04/25/24 [History] Ibuprofen [Motrin] 400 mg PO Q12HR PRN 2 Days #4 tab 04/27/24 [Rx] Follow up Appointment(s)/Referral(s): Karo Alicea MD [Primary Care Provider] - 1-2 days Evangelista Larios MD [STAFF PHYSICIAN] - 05/04/24 3:30 pm (Follow up in the office for a Site Check with Dr. Larios as scheduled) Patient Instructions/Handouts: *Surgery [facility] - After Heart Catheterization - [employer] Instructions Activity/Diet/Wound Care/Special Instructions: ACTIVITY RESTRICTIONS FOR RIGHT GROIN PUNCTURE NO SOAKING IN TUBS, POOLS, SPAS FOR 5 DAYS YOU MAY SHOWER AND PAT SITE DRY, DO NOT USE OINTMENTS OR POWDERS YOU MAY REMOVE DRESSING IN 24 HOURS NO HEAVY LIFTING OR BENDING REPEATEDLY AT THE HIPS YOU MAY DO STAIRS SLOWLY IF YOU NOTICE ANY INCREASED BLEEDING, SWELLING OR PAIN AT THE PUNCTURE SITE, APPLY FIRM PRESSURE AND GO TO THE NEAREST ER FOLLOW UP IN THE OFFICE FOR A SITE CHECK PER DR. GOERGE: CUT CALCITRIOL TO 1.5mcg DAILY (3 O.5mcg TABS) Discharge Disposition: HOME SELF-CARE
--- NOTE | 2024-04-28 11:22 | CA ---
Transthoracic Echo Report Name: Rosi Winslow Age: 33 Gender: F : 1990 Exam Date: 04/26/2024 09:49 Exam Location: [place] [facility] Ht (in): 62 Wt (lb): 120 Ordering Physician: Maggie Anders Attending/Referring Phys: [employer] Kelli Zambrano RDCS Procedure CPT: Indications: LV function, assess wall motion Cardiac Hx: Technical Quality: Fair Contrast 1: Total Dose (mL): Contrast 2: Total Dose (mL): MEASUREMENTS (Male / Female) Normal Values 2D ECHO LV Diastolic Diameter PLAX 4.7 cm 4.2 - 5.9 / 3.9 - 5.3 cm LV Systolic Diameter PLAX 3.3 cm IVS Diastolic Thickness 1.5 cm 0.6 - 1.0 / 0.6 - 0.9 cm LVPW Diastolic Thickness 1.9 cm 0.6 - 1.0 / 0.6 - 0.9 cm LV Relative Wall Thickness 0.7 LV Diastolic Volume MOD BP 109.5 cm??? 67 - 155 / 56 - 104 cm??? LV Systolic Volume MOD BP 52.9 cm??? 22 - 58 / 19 - 49 cm??? LV Ejection Fraction MOD BP 51.7 % >= 55 % LV Diastolic Volume MOD 4C 117.1 cm??? LV Systolic Volume MOD 4C 42.8 cm??? LV Ejection Fraction MOD 4C 63.5 % LV Diastolic Length 4C 8.8 cm LV Systolic Length 4C 6.7 cm LV Diastolic Volume MOD 2C 102.1 cm??? LV Systolic Volume MOD 2C 57.8 cm??? LV Ejection Fraction MOD 2C 43.3 % LV Diastolic Length 2C 8.9 cm LV Systolic Length 2C 7.7 cm FINDINGS Left Ventricle Limited study,Moderately increased septal wall thickness. Severely increased posterior wall thickness. Mildly increased left ventricular diastolic volume. Mildly increased left ventricular systolic volume. Left ventricular ejection fraction is estimated at 50-55 %. Right Ventricle Right Atrium Left Atrium Mitral Valve Aortic Valve Tricuspid Valve Pulmonic Valve Pericardium No pericardial effusion. Aorta CONCLUSIONS Diagnosis: Chest discomfort rule out HI LVH with ejection fraction of 50 to 55% No regional wall motion abnormality Previewed by: Dr. Adebayo Vizcaino MD (Electronically Signed) Final Date: 28 April 2024 11:22
--- NOTE | 2024-05-11 14:05 | CDI ---
Documentation Clarification Form Date: 05/11/2024 01:51:44 PM From: Lizzy Zelaya Phone: Admit Date: 04/26/2024 01:44:00 PM Patient Name: Rosi Winslow Visit Number: [id number] Discharge Date: 04/27/2024 03:54:00 PM ATTENTION: The Clinical Documentation Specialists (CDI) and [facility] Coding Staff appreciate your assistance in clarifying documentation. Please respond to the clarification below the line at the bottom and electronically sign. The CDI & [facility] Coding staff will review the response and follow-up if needed. Please note: Queries are made part of the Legal Health Record. If you have any questions, please contact the author of this message via ITS. Doctor/Provider: Robin Thompson There is documentation of CKD mineral bone disease per Consult 04/26 and 04/27 Progress Note. Additional clarification is requested. History/Risk Factors: 33yo F, ESRD on HD, recurrentnoncardio chest pain, HTN w CDHF, MR, TR, AR, anemia of CKD, CKDmineral bone disease, spparathyroidectomy, Hx PCK and failure kidney transplant, NICM Clinical Indicators: Home medications Calcium Acetate [PhosLo] 2,668 mg PO TID; calcitriol 1.5 mcg PO DAILY Treatment: hemodialysis(M,W,Fr) Can you please clarify specific bone disease? [ ] Renal osteodystrophy [ x] Bone mineral disease unspecified [ ] Other, please specify [ ] Unable to determine (Template Last Revised: September 2020) MTDD
--- NOTE | 2024-05-11 14:17 | CDI ---
Documentation Clarification Form Date: 05/11/2024 02:06:00 PM From: Lizzy Zelaya Phone: Admit Date: 04/26/2024 01:44:00 PM Patient Name: Rosi Winslow Visit Number: [id number] Discharge Date: 04/27/2024 03:54:00 PM ATTENTION: The Clinical Documentation Specialists (CDI) and [facility] Coding Staff appreciate your assistance in clarifying documentation. Please respond to the clarification below the line at the bottom and electronically sign. The CDI & [facility] Coding staff will review the response and follow-up if needed. Please note: Queries are made part of the Legal Health Record. If you have any questions, please contact the author of this message via ITS. Doctor/Provider: Rhys E Sheet Your patient has the documented diagnosis of: CHF,systolicwith EF 35 to 40% H&P and DCS Chronic diastolic CHF Consult 04/26 and Progress Note 04/27 Additional information regarding the type of CHF is requested. History/Risk Factors: 33yo F, ESRD on HD, recurrent noncardio CP, HTN w CDHF, MR/TR/AR, anemia of CKD w mineral bone disease, sp parathyroidectomy, Hx PCK and failure kidney transplant, NICM Clinical Indicators: VS/Pulse OX: 98-99 BNP: [id number] Echo Results: Chest discomfortrule outMI. LVH with ejection fraction of 50 to 55%. Noregional wall motionabnormality Chest x ray: Theheart size is enlarged. The pulmonary vasculature is normal. The lungs are clear. Treatment: HDtoday. Hold calcitriol for now. Resume PhosLo with meals. Home antihypertensives resumed. Add as needed hydralazine. Follow-upechocardiogram. Check ironstudies. In your professional opinion, can you please clarify the type of CHF if known? [ ] Chronic Systolic Heart Failure (reduced EF) [ x ] Chronic Diastolic Heart Failure (preserved EF) [ ] Chronic Systolic & Diastolic Heart Failure [ ] Other, please specify [ ] Unable to determine (Template Last Revised: September 2020) MTDD
== END 2024-04-27 15:54 | disposition home or self-care (01) | DRG 286 ==
LOC: EC 14:12 → 6NMEDSUR 17:03 → OBSVTOIN 04-26 13:44 → 6NMEDSUR 04-26 17:34
PROVIDERS: ADMIT Hospitalist; ATTEND Hospitalist
PROC: 5A1D70Z Performance of Urinary Filtration, Intermittent, Less than 6 Hours Per Day (ICD-10-PCS; 2024-04-26)
PROC: 4A023N7 Measurement of Cardiac Sampling and Pressure, Left Heart, Percutaneous Approach (ICD-10-PCS; 2024-04-27)
PROC: B2111ZZ Fluoroscopy of Multiple Coronary Arteries using Low Osmolar Contrast (ICD-10-PCS; principal; 2024-04-27 07:30)
DX: I13.2 Hypertensive heart and chronic kidney disease with heart failure and with stage 5 chronic kidney disease, or end stage renal disease (principal); N18.6 End stage renal disease; T86.12 Kidney transplant failure; Q61.3 Polycystic kidney, unspecified; R07.2 Precordial pain; I42.8 Other cardiomyopathies; I50.32 Chronic diastolic (congestive) heart failure; I27.20 Pulmonary hypertension, unspecified; Z99.2 Dependence on renal dialysis; D63.1 Anemia in chronic kidney disease; J45.909 Unspecified asthma, uncomplicated; F32.A Depression, unspecified; F41.9 Anxiety disorder, unspecified; M89.8X9 Other specified disorders of bone, unspecified site; I08.3 Combined rheumatic disorders of mitral, aortic and tricuspid valves; Y83.0 Surgical operation with transplant of whole organ as the cause of abnormal reaction of the patient, or of later complication, without mention of misadventure at the time of the procedure; Z87.891 Personal history of nicotine dependence; Z79.899 Other long term (current) drug therapy; Z90.89 Acquired absence of other organs
CPT/HCPCS: 36415; 71046; 80053; 82728; 83540; 83550; 83690; 83735; 83880; 84100; 84484; 85025; 85610; 85730; 90935; 93005; 93308; 93458; 96374; 96375; 99291

== ENCOUNTER 2024-06-12 21:57 | Inpatient (IN) | payer MEDICARE, BC, OTHER ==
[2024-06-12] MEDS: HYDROmorphone 1 MG/ML 1 ML SYRINGE IVP STA (22:30)
--- NOTE | 2024-06-12 22:42 | ED ---
General Adult HPI - General Chief complaint: Chest Pain Stated complaint: Chest Pain Time Seen by Provider: 06/12/24 22:03 Source: patient, RN notes reviewed, old records reviewed Mode of arrival: ambulatory Limitations: no limitations - History of Present Illness Initial comments: 33-year-old female presenting for evaluation of chest discomfort and headache. Patient does have end-stage renal disease on hemodialysis. She states she had dialysis today and they removed 4 L of fluid. She states she does have a cramping sensation and believes they may have removed too much fluid. No dyspnea. No peripheral edema. She also states her blood pressure is high but states she has been compliant with all of her medication. - Related Data Home Medications Medication Instructions Recorded Confirmed Albuterol Sulfate [Proair Hfa] 2 puff INHALATION RT-Q6H PRN 01/22/16 04/25/24 Calcium Acetate [PhosLo] 2,668 mg PO TID-W/MEALS 05/01/20 04/25/24 calcitrioL 1.5 mcg PO DAILY 10/29/21 04/27/24 Acetaminophen Tab [Tylenol] 1,000 mg PO Q6HR PRN 05/26/22 04/25/24 Calcium Acetate [PhosLo] 1,334 mg PO DAILY PRN 05/26/22 04/25/24 Sodium Zirconium Cyclosilicate 10 gm PO DAILY PRN 03/23/23 04/25/24 [Lokelma] Lactulose 10 gm PO DAILY PRN 09/05/23 04/25/24 carvediloL [Coreg*] 25 mg PO BID-W/MEALS 09/05/23 04/25/24 NIFEdipine XL [Procardia XL] 90 mg PO DAILY 11/28/23 04/25/24 hydrALAZINE HCL [Apresoline] 100 mg PO TID 01/21/24 04/25/24 Ondansetron [Zofran] 4 mg PO Q8H PRN 04/25/24 04/25/24 Previous Rx's Medication Instructions Recorded Ibuprofen [Motrin] 400 mg PO Q12HR PRN 2 Days #4 tab 04/27/24 Allergies Allergy/AdvReac Type Severity Reaction Status Date / Time vancomycin Allergy Anaphylaxis Verified 06/12/24 22:00 /Itching hydralazine AdvReac Rapid Verified 06/12/24 22:00 Heart Rate WHEN GIVEN THROUGH IV Review of Systems ROS Statement: Those systems with pertinent positive or pertinent negative responses have been documented in the HPI. ROS Other: All systems not noted in ROS Statement are negative. 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 History of Any Multi-Drug Resistant Organisms: None Reported Past Surgical History: Heart Catheterization, Hernia Repair Additional Past Surgical History / Comment(s): 06/14/18 cardiac cath at [facility] to check coronary pressures, 11/15/09 Failed kidney transplant R pelvis, dialysis catheter in and out, current L upper arm AVG, supra pubic hernia repair, transv aginal mesh, wisdom teeth extraction with anesthesia, 2016 failed kidney transplant Past Anesthesia/Blood Transfusion Reactions: No Reported Reaction Additional Past Anesthesia/Blood Transfusion Reaction / Comment(s): Pt has received blood in past without reaction. Past Psychological History: Anxiety, Depression Smoking Status: Never smoker Past Alcohol Use History: None Reported Past Drug Use History: None Reported - Past Family History Father Family Medical History: No Reported History Additional Family Medical History / Comment(s): Father is healthy and is 62 yrs old. Mother Family Medical History: No Reported History Additional Family Medical History / Comment(s): Mother is healthy and is 60 yrs old. General Exam Limitations: no limitations General appearance: alert, in no apparent distress Head exam: Present: atraumatic, normocephalic Eye exam: Present: normal appearance, PERRL ENT exam: Present: normal exam Neck exam: Present: normal inspection. Absent: tenderness, meningismus Respiratory exam: Present: normal lung sounds bilaterally. Absent: respiratory distress, wheezes Cardiovascular Exam: Present: regular rate, normal rhythm GI/Abdominal exam: Present: soft. Absent: distended, tenderness, guarding Extremities exam: Present: normal inspection, normal capillary refill Neurological exam: Present: alert, oriented X3, CN II-XII intact. Absent: motor sensory deficit Psychiatric exam: Present: normal affect, normal mood Skin exam: Present: warm, dry, intact. Absent: cyanosis, diaphoretic Course Vital Signs 06/12/24 06/12/24 06/12/24 21:58 22:20 22:50 Temperature 98.4 F Pulse Rate 80 80 81 Respiratory 18 16 17 Rate Blood Pressure 216/119 197/121 195/122 O2 Sat by Pulse 96 96 96 Oximetry 06/13/24 00:09 Temperature Pulse Rate 78 Respiratory 166 H Rate Blood Pressure 185/107 O2 Sat by Pulse Oximetry Medical Decision Making - Medical Decision Making Was pt. sent in by a medical professional or institution (, KAROLYN, SOFTWARE DEVELOPMENT ADVISOR, urgent care, hospital, or jail...) When possible be specific @ -No Did you speak to anyone other than the patient for history (EMS, parent, family, police, friend...)? What history was obtained from this source @ -No Did you review nursing and triage notes (agree or disagree)? Why? @ -I reviewed and agree with nursing and triage notes Were old charts reviewed (outside hosp., previous admission, EMS record, old EKG, old radiological studies, urgent care reports/EKG's, jail records)? Report findings @ -No old charts were reviewed Differential Chest Pain: Stable Angina, Unstable Angina, STEMI, NSTEMI Aortic Dissection, Pneumothorax, Musculoskeletal, Esophageal Spasm GERD, Cholecystitis, Pancreatitis, Zoster, this is not meant to be an all-inclusive list. EKG interpreted by me (3pts min.). @ -EKG sinus rhythm rate of 78, IN interval 199, QRS duration 98, QTc [address] segment elevation X-rays interpreted by me (1pt min.). @ -Chest x-ray is clear without significant fluid overload CT interpreted by me (1pt min.). @ -None done U/S interpreted by me (1pt. min.). @ -None done What testing was considered but not performed or refused? (CT, X-rays, U/S, labs)? Why? @ -None What meds were considered but not given or refused? Why? @ -None Did you discuss the management of the patient with other professionals (professionals i.e. KAROLYN Moore, SOFTWARE DEVELOPMENT ADVISOR, lab, RT, psych nurse, manager social services, shoder filler, teacher, combat information center officer, caser up)? Give summary @ -YES, [facility], and nephrology has been paged. Was smoking cessation discussed for >3mins.? @ -No Was critical care preformed (if so, how long)? @Yes, 35 minutes Were there social determinants of health that impacted care today? How? (Homelessness, low income, unemployed, alcoholism, drug addiction, transportation, low edu. Level, literacy, decrease access to med. care, usp, rehab)? @ -No Was there de-escalation of care discussed even if they declined (Discuss DNR or withdrawal of care, Hospice)? DNR status @ -No What co-morbidities impacted this encounter? (DM, HTN, Smoking, COPD, CAD, Cancer, CVA, ARF, Chemo, Hep., AIDS, mental health diagnosis, sleep apnea, morbid obesity)? @ -End-stage renal disease Was patient admitted / discharged? Hospital course, mention meds given and route, prescriptions, significant lab abnormalities, going to OR and other pertinent info. @ -[33-year-old female presenting with chest discomfort, hypertension, EKG is sinus. Chest x-ray is clear. Patient has normal CBC, CMP shows hyperkalemia at 6.5, nonhemolyzed. Patient given medications for hyperkalemia and case is discussed with the admitting team, Nayely patricia for [facility] hospitalist and nephrology has been paged. Undiagnosed new problem with uncertain prognosis? @ -No Drug Therapy requiring intensive monitoring for toxicity (Heparin, Nitro, Insulin, Cardizem)? @ -No Were any procedures done? @ -No Diagnosis/symptom? @ -[Hyperkalemia, hypertension Acute, or Chronic, or Acute on Chronic? @ -Acute on chronic Uncomplicated (without systemic symptoms) or Complicated (systemic symptoms)? @ -Default Side effects of treatment? @ -No Exacerbation, Progression, or Severe Exacerbation? @ -No Poses a threat to life or bodily function? How? (Chest pain, [place], [place], pneumonia, PE, COPD, DKA, ARF, appy, cholecystitis, CVA, Diverticulitis, Homicidal, Suicidal, threat to staff... and all critical care pts) @ -Yes, hypertension, hypertensive emergency, arrhythmia secondary to hyperkalemia - Lab Data Result diagrams: 06/12/24 22:21 06/13/24 23:30 Lab Results 06/12/24 06/12/24 06/12/24 Range/Units 22:21 22:21 22:21 WBC 5.0 (3.8-10.6) k/uL RBC 3.99 (3.80-5.40) m/uL Hgb 11.6 (11.4-16.0) gm/dL Hct 38.5 (34.0-46.0) % MCV 96.4 (80.0-100.0) fL MCH 29.1 (25.0-35.0) pg MCHC 30.2 L (31.0-37.0) g/dL RDW 20.5 H (11.5-15.5) % Plt Count 300 (150-450) k/uL MPV 7.7 Neutrophils % 62 % Lymphocytes % 19 % Monocytes % 8 % Eosinophils % 7 % Basophils % 1 % Neutrophils # 3.1 (1.3-7.7) k/uL Lymphocytes # 1.0 (1.0-4.8) k/uL Monocytes # 0.4 (0-1.0) k/uL Eosinophils # 0.4 (0-0.7) k/uL Basophils # 0.1 (0-0.2) k/uL Hypochromasia Marked Anisocytosis Moderate Macrocytosis Slight PT 11.4 (10.0-12.5) sec INR 1.0 (<1.2) APTT 26.3 (22.0-30.0) sec Sodium 135 L (137-145) mmol/L Potassium (3.5-5.1) mmol/L Chloride 104 (98-107) mmol/L Carbon Dioxide 19 L (22-30) mmol/L Anion Gap 12 mmol/L BUN 39 H (7-17) mg/dL Creatinine 8.35 H* (0.52-1.04) mg/dL Est GFR (CKD-EPI)AfAm 7 (>60 ml/min/1.73 sqM) Est GFR (CKD-EPI)NonAf 6 (>60 ml/min/1.73 sqM) Glucose 111 H (74-99) mg/dL Calcium 9.2 (8.4-10.2) mg/dL Magnesium 2.0 (1.6-2.3) mg/dL Total Bilirubin 1.2 (0.2-1.3) mg/dL AST 48 H (14-36) U/L ALT 14 (4-34) U/L Alkaline Phosphatase 51 (38-126) U/L Total Protein 8.8 H (6.3-8.2) g/dL Albumin 4.7 (3.5-5.0) g/dL 06/13/24 Range/Units 23:30 WBC (3.8-10.6) k/uL RBC (3.80-5.40) m/uL Hgb (11.4-16.0) gm/dL Hct (34.0-46.0) % MCV (80.0-100.0) fL MCH (25.0-35.0) pg MCHC (31.0-37.0) g/dL RDW (11.5-15.5) % Plt Count (150-450) k/uL MPV Neutrophils % % Lymphocytes % % Monocytes % % Eosinophils % % Basophils % % Neutrophils # (1.3-7.7) k/uL Lymphocytes # (1.0-4.8) k/uL Monocytes # (0-1.0) k/uL Eosinophils # (0-0.7) k/uL Basophils # (0-0.2) k/uL Hypochromasia Anisocytosis Macrocytosis PT (10.0-12.5) sec INR (<1.2) APTT (22.0-30.0) sec Sodium (137-145) mmol/L Potassium 6.5 H* (3.5-5.1) mmol/L Chloride (98-107) mmol/L Carbon Dioxide (22-30) mmol/L Anion Gap mmol/L BUN (7-17) mg/dL Creatinine (0.52-1.04) mg/dL Est GFR (CKD-EPI)AfAm (>60 ml/min/1.73 sqM) Est GFR (CKD-EPI)NonAf (>60 ml/min/1.73 sqM) Glucose (74-99) mg/dL Calcium (8.4-10.2) mg/dL Magnesium (1.6-2.3) mg/dL Total Bilirubin (0.2-1.3) mg/dL AST (14-36) U/L ALT (4-34) U/L Alkaline Phosphatase (38-126) U/L Total Protein (6.3-8.2) g/dL Albumin (3.5-5.0) g/dL Critical Care Time Critical Care Time: Yes Total Critical Care Time: 35 Disposition Clinical Impression: Hypertension, Hyperkalemia Disposition: ADMITTED IP TO THIS [facility] Condition: Stable Is patient prescribed a controlled substance at d/c from ED?: No Referrals: Karo Alicea MD [Primary Care Provider] - 1-2 days Time of Disposition: 00:35
[2024-06-12 22:43] LABS: Anisocytosis Moderate; Basophils # (A) 0.1 k/uL (0-0.2); Basophils % (A) 1 %; Eosinophils # (A) 0.4 k/uL (0-0.7); Eosinophils % (A) 7 %; HCT 38.5 % (34.0-46.0); HGB 11.6 gm/dL (11.4-16.0); Hypochromasia Marked; Lymphocytes % (A) 19 %; MCH 29.1 pg (25.0-35.0); MCHC 30.2 g/dL (31.0-37.0); MCV 96.4 fL (80.0-100.0); Macrocytosis Slight; Mean Platelet Volume 7.7; Monocytes # (A) 0.4 k/uL (0-1.0); Monocytes % (A) 8 %; Neutrophils # (A) 3.1 k/uL (1.3-7.7); Neutrophils % (A) 62 %; Platelet Count 300 k/uL (150-450); RBC 3.99 m/uL (3.80-5.40); RDW 20.5 % (11.5-15.5)
[2024-06-12 22:47] LABS: ALT 14 U/L (4-34); AST 48 U/L (14-36); African American GFR (CKD) 7 (>60 ml/min/1.73 sqM); Albumin 4.7 g/dL (3.5-5.0); Alkaline Phosphatase 51 U/L (38-126); Anion Gap 12 mmol/L; Blood Urea Nitrogen 39 mg/dL (7-17); Calcium 9.2 mg/dL (8.4-10.2); Carbon Dioxide 19 mmol/L (22-30); Chloride 104 mmol/L (98-107); Glucose 111 mg/dL (74-99); Non-African American GFR(CKD) 6 (>60 ml/min/1.73 sqM); Sodium 135 mmol/L (137-145); Total Bilirubin 1.2 mg/dL (0.2-1.3); Total Protein 8.8 g/dL (6.3-8.2)
[2024-06-12 22:52] LABS: Partial Thromboplastin Time 26.3 sec (22.0-30.0); Prothrombin Time 11.4 sec (10.0-12.5)
[2024-06-12] MEDS: SODIUM CHLORIDE 0.9% 500 ML 500 ML IV ONE (23:19)
[2024-06-12] MEDS: ONDANSETRON 4 MG/2 ML VIAL IVP STA (23:32)
--- NOTE | 2024-06-12 23:38 | XR ---
EXAM: XR Chest, 2 Views CLINICAL HISTORY: ITS.REASON XR Reason: Chest Pain TECHNIQUE: Frontal and lateral views of the chest. COMPARISON: 04/25/24 FINDINGS: Lungs: Unremarkable. No consolidation. Pleural space: Unremarkable. No pleural effusion or pneumothorax. Heart: Cardiomegaly. Bones/joints: No acute fracture. No dislocation. IMPRESSION: Cardiomegaly. No acute findings.
[2024-06-13] MEDS: cloNIDine HCL 0.1 MG TAB PO STA (00:08)
[2024-06-13] MEDS ORDERED: NALOXONE 0.4 MG/ML 1 ML VIAL IV PRN (00:28)
[2024-06-13] MEDS ORDERED: ONDANSETRON 4 MG TAB PO PRN (00:36)
[2024-06-13] MEDS ORDERED: SODIUM ZIRCONIUM CYCLOSILICATE 10 GM PACKET PO PRN (00:36)
[2024-06-13] MEDS ORDERED: CALCIUM ACETATE 667 MG TAB PO PRN (00:36)
[2024-06-13] MEDS: ALBUTEROL NEB (CONC) 2.5 MG/0.5 ML INHALATION ONE (00:50)
[2024-06-13] MEDS: CALCIUM GLUCONATE IN NACL 1 GM in SALINE 1 100ML.BAG IVPB ONE (01:35)
[2024-06-13] MEDS: DEXTROSE 50% SYRINGE 50 ML IVP ONE (01:36)
[2024-06-13] MEDS: SODIUM ZIRCONIUM CYCLOSILICATE 10 GM PACKET PO ONE (01:37)
[2024-06-13] MEDS: INSULIN REGULAR 100 UNIT/ML VIAL (IV) IV ONE (01:43)
[2024-06-13 02:06] LABS: Glucose,Whole Blood 135 mg/dL (70-110)
[2024-06-13] MEDS: ACETAMINOPHEN TAB 325 MG TAB PO PRN (03:28)
[2024-06-13] MEDS: carvediloL 12.5 MG TAB PO SCH ×2 (07:41→16:06)
[2024-06-13] MEDS: NIFEdipine XL 90 MG TAB.ER.24 PO SCH (08:09)
[2024-06-13] MEDS: hydrALAZINE HCL 50 MG TAB PO SCH (08:10)
[2024-06-13 10:13] LABS: African American GFR (CKD) 6 (>60 ml/min/1.73 sqM); Anion Gap 12 mmol/L; Blood Urea Nitrogen 45 mg/dL (7-17); Calcium 9.2 mg/dL (8.4-10.2); Carbon Dioxide 25 mmol/L (22-30); Chloride 100 mmol/L (98-107); Glucose 128 mg/dL (74-99); Non-African American GFR(CKD) 5 (>60 ml/min/1.73 sqM); Potassium 5.5 mmol/L (3.5-5.1); Sodium 137 mmol/L (137-145)
[2024-06-13] MEDS ORDERED: ALBUTEROL NEBULIZED 2.5 MG/3 ML INHALATION PRN (10:26)
[2024-06-13] MEDS: GABAPENTIN 100 MG CAP PO SCH (11:29)
[2024-06-13] MEDS: HYDROcodone/APAP 5-325MG 1 EACH TAB PO PRN (11:30)
--- NOTE | 2024-06-13 12:49 | P.NPCON ---
History of Present Illness - Reason for Consult end stage renal disease - History of Present Illness Patient is a 33-year-old female with end-stage renal disease on hemodialysis on Wednesday schedule admitted to the hospital yesterday with complaints of chest pain. Patient did complete her dialysis yesterday as outpatient. However her serum potassium was elevated at 6.5. Blood pressure h as been elevated. No complaints of fever chills nausea or vomiting. Chest x-ray does not show any significant pulmonary vascular congestion. 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 History of Any Multi-Drug Resistant Organisms: None Reported Past Surgical History: Heart Catheterization, Hernia Repair Additional Past Surgical History / Comment(s): 06/14/18 cardiac cath at [facility] to check coronary pressures, 11/15/09 Failed kidney transplant R pelvis, dialysis catheter in and out, current L upper arm AVG, supra pubic hernia repair, transvaginal mesh, wisdom teeth extraction with anesthesia, 2016 failed kidney transplant Past Anesthesia/Blood Transfusion Reactions: No Reported Reaction Additional Past Anesthesia/Blood Transfusion Reaction / Comment(s): Pt has received blood in past without reaction. Past Psychological History: Anxiety, Depression Smoking Status: Never smoker Past Alcohol Use History: None Reported Past Drug Use History: None Reported - Past Family History Father Family Medical History: No Reported History Additional Family Medical History / Comment(s): Father is healthy and is 62 yrs old. Mother Family Medical History: No Reported History Additional Family Medical History / Comment(s): Mother is healthy and is 60 yrs old. Medications and Allergies Home Medications Medication Instructions Recorded Confirmed Type Albuterol Sulfate [Proair Hfa] 2 puff INHALATION RT-Q6H PRN 01/22/16 06/13/24 History Calcium Acetate [PhosLo] 2,668 mg PO TID-W/MEALS 05/01/20 06/13/24 History calcitrioL 2 mcg PO DAILY 10/29/21 06/13/24 History Acetaminophen Tab [Tylenol] 1,000 mg PO Q6HR PRN 05/26/22 06/13/24 History Calcium Acetate [PhosLo] 1,334 mg PO DAILY PRN 05/26/22 06/13/24 History Sodium Zirconium Cyclosilicate 10 gm PO DAILY PRN 03/23/23 06/13/24 History [Lokelma] Lactulose 10 gm PO DAILY PRN 09/05/23 06/13/24 History NIFEdipine XL [Procardia XL] 90 mg PO DAILY 11/28/23 06/13/24 History hydrALAZINE HCL [Apresoline] 100 mg PO TID 01/21/24 06/13/24 History Ondansetron [Zofran] 4 mg PO Q8H PRN 04/25/24 06/13/24 History Gabapentin [Neurontin] 100 mg PO DAILY 06/13/24 06/13/24 History carvediloL [Coreg] 25 mg PO BID-W/MEALS 06/13/24 06/13/24 History Allergies Allergy/AdvReac Type Severity Reaction Status Date / Time vancomycin Allergy Anaphylaxis Verified 06/13/24 08:35 /Itching hydralazine AdvReac Rapid Verified 06/13/24 08:35 Heart Rate WHEN GIVEN THROUGH IV Physical Exam Vitals: Vital Signs Temp Pulse Resp BP Pulse Ox 06/13/24 12:35 84 18 174/108 96 06/13/24 11:35 98.5 F 85 16 195/116 96 06/13/24 10:00 98.4 F 81 14 190/118 97 06/13/24 08:08 78 16 176/101 96 06/13/24 07:44 98.2 F 85 16 190/119 96 06/13/24 06:59 80 18 192/112 97 06/13/24 03:53 96 14 153/100 97 06/13/24 03:13 87 18 177/103 06/13/24 01:07 78 06/13/24 00:51 65 06/13/24 00:09 78 16 185/107 06/12/24 22:50 81 17 195/122 96 06/12/24 22:20 80 16 197/121 96 06/12/24 21:58 98.4 F 80 18 216/119 96 Intake and Output 11/11/24 11/12/24 11/12/24 22:59 06:59 14:59 Other: Weight 56 kg patient is awake, comfortable, in no acute distress. Examination of the heart S1 and S2 Examination of the lungs bilateral breath sounds are heard Abdomen is soft nontender Examination of lower extremity shows no significant edema SYSTEM ENGINEER exam grossly intact Results - Lab Results Most recent lab results Calcium 9.2 mg/dL (8.4-10.2) 06/13/24 09:33 Magnesium 2.0 mg/dL (1.6-2.3) 06/12/24 22:21 06/12/24 22:21 06/13/24 23:30 Assessment and Plan Assessment: 1. End-stage renal disease on hemodialysis on Wednesday schedule via left arm AV fistula 2. 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 Hypertension, partly volume sensitive 4. Hyperkalemia associated with end-stage renal disease 5. CK D mineral bone disorders status post parathyroidectomy Plan: repeat hemodialysis today with UF of 2-3 L. Continue current antihypertensive medications. Continue calcitriol Repeat hemodialysis in a.m. if patient is not discharged.
--- NOTE | 2024-06-13 13:44 | P.CRDCN ---
History of Present Illness History of present illness: HISTORY OF PRESENT ILLNESS: This is a 33-year-old female with a past medical history significant for end- stage renal disease on hemodialysis Wednesday, kidney transplant, hypertension, congestive heart failure, pulmonary hypertension, and valvular heart disease. Patient follows in the office with Dr. Larios. We have been asked to see the patient in consultation for chest pain. Patient examined at the bedside in the emergency room. Patient presented to the hospital with a chief complaint of chest discomfort and uncontrolled blood pressure. Patient states she woke up yesterday morning with chest discomfort. She states that she feels like her chest is tight. She states the pain is worse with deep inspiration and also with laying flat in bed. Patient states that recently her blood pressures have been well-controlled and she has even had some issues with hypotension. She states recently she has been having to take her cardiac medications after hemodialysis to avoid hypotension. She states the last couple days she has noticed her blood pressures have been high in the 200s. She states yesterday when she went to dialysis her blood pressures were in the [id number]. She states that she has been compliant with all of her medications. She does report that s he ran out of her carvedilol last week but was able to get a new prescription and has been taking it for the past 4 days. She does report noncompliance with a low-sodium diet. She does report having [place]h food and popcorn recently. She states that she is an emotional eater and does tend to consume high salt foods. DIAGNOSTICS: - EKG reveals sinus mechanism with nonspecific ST-T wave changes. No signs of acute ischemia. LVH.. - Chest xray cardiomegaly. No acute findings. - Laboratory data: WBC 5.0. Hemoglobin 11.6. Platelet count 300. Sodium 137. Potassium 6.5. BUN 45. Creatinine 9.53. - Current home cardiac medications include carvedilol 25 mg twice a day, nifedipine XL 90 mg daily, hydralazine 100 mg 3 times daily - Most recent echocardiogram obtained in April 2024 revealing ejection fraction 50 to 55% -Previous echocardiogram performed in March 2024 in the office revealed ejection fraction 55%, moderate concentric LVH, moderate to severe AR, mild MR, moderate TR. - Cardiac catheterization history: 04/27/2024 revealing normal coronary arteries REVIEW OF SYSTEMS: At the time of my exam: CONSTITUTIONAL: Denies fever or chills. HEENT: Denies blurred vision, vision changes, or eye pain. Denies hemoptysis CARDIOVASCULAR: Denies chest pain. Denies orthopnea. Denies PND. Denies palpitations RESPIRATORY: Denies shortness of breath. GASTROINTESTINAL: Denies abdominal pain. Denies nausea or vomiting. HEMATOLOGIC: Denies bleeding disorders. GENITOURINARY: Denies any blood in urine. SKIN: Denies pruitis. Denies rash. PHYSICAL EXAM: VITAL SIGNS: Reviewed. GENERAL: Well-developed in no acute distress. HEENT: Head is normocephalic. Pupils are equal, round. Sclerae anicteric. Mucous membranes of the mouth are moist. Neck supple. No JVD or thyromegaly LUNGS: Respirations even and unlabored. Lungs essentially clear to auscultation bilaterally. HEART: Regular rate and rhythm. S1 and S2 heard. Systolic and diastolic murmur noted. ABDOMEN: Soft. Nondistended. Nontender. EXTREMITIES: Normal range of motion. No clubbing or cyanosis. Peripheral pulses intact. No lower extremity edema NEUROLOGIC: Awake and alert. Oriented x 3. ASSESSMENT: Hypertensive emergency, likely secondary to noncompliance with low-sodium diet Chest pain, secondary to hypertensive emergency and volume overload, ACS ruled out Hyperkalemia End-stage renal disease on hemodialysis, Wednesday Normal coronary arteries, per cardiac catheterization 04/2024 Valvular heart disease including moderate to severe AR, mild MR, moderate TR Moderate LVH Severe pulmonary hypertension Chronic heart failure with preserved EF Chronically elevated troponins secondary to end-stage renal disease Left arm AV fistula pseudoaneurysm, scheduled for outpatient surgery PLAN: An acute coronary event has been ruled out Nephrology following. Patient to undergo an extra dialysis session today. Patient's uncontrolled blood pressure likely secondary to volume overload due to noncompliance with low-sodium diet at home Patient states her blood pressure is usually well-controlled at home and even gets hypotensive at times with dialysis. Continue with current cardiac medications at this time. If patients blood pressure continues to remain elevated after extra dialysis, will make adjustments to patient's medication regimen Low-sodium diet reinforced with patient Further recommendations pending patient course Nurse practitioner note has been reviewed by physician. Signing provider agrees with the documented findings, assessment, and plan of care documented by BLOCK BREAKER as a scribe. 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 History of Any Multi-Drug Resistant Organisms: None Reported Past Surgical History: Heart Catheterization, Hernia Repair Additional Past Surgical History / Comment(s): 06/14/[address] [facility] to check coronary pressures, 11/15/09 Failed kidney transplant R pelvis, dialysis catheter in and out, current L upper arm AVG, supra pubic hernia repair, transvaginal mesh, wisdom teeth extraction with anesthesia, 2016 failed kidney transplant Past Anesthesia/Blood Transfusion Reactions: No Reported Reaction Additional Past Anesthesia/Blood Transfusion Reaction / Comment(s): Pt has rece ived blood in past without reaction. Past Psychological History: Anxiety, Depression Smoking Status: Never smoker Past Alcohol Use History: None Reported Past Drug Use History: None Reported - Past Family History Father Family Medical History: No Reported History Additional Family Medical History / Comment(s): Father is healthy and is 62 yrs old. Mother Family Medical History: No Reported History Additional Family Medical History / Comment(s): Mother is healthy and is 60 yrs old. Medications and Allergies Home Medications Medication Instructions Recorded Confirmed Type Albuterol Sulfate [Proair Hfa] 2 puff INHALATION RT-Q6H PRN 01/22/16 06/13/24 History Calcium Acetate [PhosLo] 2,668 mg PO TID-W/MEALS 05/01/20 06/13/24 History calcitrioL 2 mcg PO DAILY 10/29/21 06/13/24 History Acetaminophen Tab [Tylenol] 1,000 mg PO Q6HR PRN 05/26/22 06/13/24 History Calcium Acetate [PhosLo] 1,334 mg PO DAILY PRN 05/26/22 06/13/24 History Sodium Zirconium Cyclosilicate 10 gm PO DAILY PRN 03/23/23 06/13/24 History [Lokelma] Lactulose 10 gm PO DAILY PRN 09/05/23 06/13/24 History NIFEdipine XL [Procardia XL] 90 mg PO DAILY 11/28/23 06/13/24 History hydrALAZINE HCL [Apresoline] 100 mg PO TID 01/21/24 06/13/24 History Ondansetron [Zofran] 4 mg PO Q8H PRN 04/25/24 06/13/24 History Gabapentin [Neurontin] 100 mg PO DAILY 06/13/24 06/13/24 History carvediloL [Coreg] 25 mg PO BID-W/MEALS 06/13/24 06/13/24 History Allergies Allergy/AdvReac Type Severity Reaction Status Date / Time vancomycin Allergy Anaphylaxis Verified 06/13/24 08:35 /Itching hydralazine AdvReac Rapid Verified 06/13/24 08:35 Heart Rate WHEN GIVEN THROUGH IV Physical Exam Vitals: Vital Signs Temp Pulse Resp BP Pulse Ox 06/13/24 12:57 81 18 99 06/13/24 12:35 84 18 174/108 96 06/13/24 11:35 98.5 F 85 16 195/116 96 06/13/24 10:00 98.4 F 81 14 190/118 97 06/13/24 08:08 78 16 176/101 96 06/13/24 07:44 98.2 F 85 16 190/119 96 06/13/24 06:59 80 18 192/112 97 06/13/24 03:53 96 14 153/100 97 06/13/24 03:13 87 18 177/103 06/13/24 01:07 78 06/13/24 00:51 65 06/13/24 00:09 78 16 185/107 06/12/24 22:50 81 17 195/122 96 06/12/24 22:20 80 16 197/121 96 06/12/24 21:58 98.4 F 80 18 216/119 96 Intake and Output 06/12/24 06/13/24 06/13/24 22:59 06:59 14:59 Other: Weight 56 kg Results 06/12/24 22:21 06/13/24 23:30 Cardiac Enzymes 06/12/24 Range/Units 22:21 AST 48 H (14-36) U/L Coagulation 06/12/24 Range/Units 22:21 PT 11.4 (10.0-12.5) sec APTT 26.3 (22.0-30.0) sec CBC 06/12/24 Range/Units 22:21 WBC 5.0 (3.8-10.6) k/uL RBC 3.99 (3.80-5.40) m/uL Hgb 11.6 (11.4-16.0) gm/dL Hct 38.5 (34.0-46.0) % Plt Count 300 (150-450) k/uL Comprehensive Metabolic Panel 06/12/24 06/13/24 06/13/24 Range/Units 22:21 04:01 09:33 Sodium 135 L 137 (137-145) mmol/L Potassium 4.5 5.5 H (3.5-5.1) mmol/L Chloride 104 100 (98-107) mmol/L Carbon Dioxide 19 L 25 (22-30) mmol/L BUN 39 H 45 H (7-17) mg/dL Creatinine 8.35 H* 9.53 H* (0.52-1.04) mg/dL Glucose 111 H 128 H (74-99) mg/dL Calcium 9.2 9.2 (8.4-10.2) mg/dL AST 48 H (14-36) U/L ALT 14 (4-34) U/L Alkaline Phosphatase 51 (38-126) U/L Total Protein 8.8 H (6.3-8.2) g/dL Albumin 4.7 (3.5-5.0) g/dL 06/13/24 Range/Units 23:30 Sodium (137-145) mmol/L Potassium 6.5 H* (3.5-5.1) mmol/L Chloride (98-107) mmol/L Carbon Dioxide (22-30) mmol/L BUN (7-17) mg/dL Creatinine (0.52-1.04) mg/dL Glucose (74-99) mg/dL Calcium (8.4-10.2) mg/dL AST (14-36) U/L ALT (4-34) U/L Alkaline Phosphatase (38-126) U/L Total Protein (6.3-8.2) g/dL Albumin (3.5-5.0) g/dL Current Medications Generic Name Dose Route Start Last Admin Trade Name Freq PRN Reason Stop Dose Admin Acetaminophen 650 mg 06/13/24 00:28 06/13/24 03:28 Acetaminophen Tab 325 Mg Tab PO 650 mg Q6HR PRN Administration Mild Pain or Fever > 100.5 Hydrocodone Bitart/Acetaminophen 1 each 06/13/24 10:28 06/13/24 11:30 Hydrocodone/Apap 5-325mg 1 Each Tab PO 1 each Q6HR PRN Administration Pain Albuterol Sulfate 2.5 mg 06/13/24 10:26 Albuterol Nebulized 2.5 Mg/3 Ml INHALATION RT-Q6H PRN Shortness Of Breath Calcitriol 1.5 mcg 06/13/24 09:00 06/13/24 08:10 Calcitriol 0.25 Mcg Cap PO Not Given DAILY SELENE Calcium Acetate 1,334 mg 06/13/24 00:36 Calcium Acetate 667 Mg Tab PO DAILY PRN WITH SNACKS Carvedilol 25 mg 06/13/24 07:30 06/13/24 07:41 Carvedilol 12.5 Mg Tab PO 25 mg BID-W/MEALS SELENE Administration Gabapentin 100 mg 06/13/24 11:00 06/13/24 11:29 Gabapentin 100 Mg Cap PO 100 mg DAILY SELENE Administration Hydralazine HCl 100 mg 06/13/24 09:00 06/13/24 08:10 Hydralazine Hcl 50 Mg Tab PO 100 mg TID SELENE Administration Naloxone HCl 0.2 mg 06/13/24 00:28 Naloxone 0.4 Mg/Ml 1 Ml Vial IV Q2M PRN Opioid Reversal Nifedipine 90 mg 06/13/24 09:00 06/13/24 08:09 Nifedipine Xl 90 Mg Tab.Er.24 PO 90 mg DAILY SELENE Administration Ondansetron HCl 4 mg 06/13/24 00:36 Ondansetron 4 Mg Tab PO Q8H PRN Nausea And Vomiting Sodium Zirconium Cyclosilicate 10 gm 06/13/24 00:36 Sodium Zirconium Cyclosilicate 10 Gm Packet PO DAILY PRN high potassium Intake and Output 06/12/24 06/13/24 06/13/24 22:59 06:59 14:59 Other: Weight 56 kg 06/12/24 22:21 06/13/24 23:30
[2024-06-13] MEDS ORDERED: cloNIDine HCL 0.1 MG TAB PO PRN (14:07)
[2024-06-13] MEDS ORDERED: hydrALAZINE HCL 20 MG/ML 1 ML VIAL IVP PRN (14:07)
[2024-06-13] MEDS ORDERED: LACTULOSE 200 GM/300 ML (FROM 1/2 GAL JUG) PO PRN (14:08)
[2024-06-13] MEDS: amLODIPine 10 MG TAB PO SCH (16:06)
[2024-06-13 21:49] VITALS: RESP 16
[2024-06-13] MEDS: hydrOXYzine HCL 25 MG TAB PO PRN (21:53)
--- NOTE | 2024-06-13 22:00 | HP ---
HISTORY AND PHYSICAL CHIEF COMPLAINT: Chest pain and as well as headaches and hypertension. HISTORY OF PRESENT ILLNESS: This is a 33-year-old woman with a past medical history of multiple medical problems including end-stage renal disease, on hemodialysis, had 4 L fluid removed recently. The patient also had elevated blood pressure and as well as headaches. The patient came to [facility]. Blood pressure elevated up to 194/116. There is no history of any fever, rigors, or chills at this time. The patient apparently has some intolerance to hydralazine especially given rapidly. PAST MEDICAL HISTORY: Reviewed include asthma, CHF, hypertension, renal disease, polycystic kidney disease. Rest of the history and rest of the chart is also reviewed. HOME MEDICATIONS: Reviewed include Neurontin. Doses and rest of medications reviewed. ALLERGIES: Vancomycin. FAMILY HISTORY: No history of heart disease or strokes in the family. SOCIAL HISTORY: No history of smoking or alcohol intake. REVIEW OF SYSTEMS: Fourteen-point review is negative except as mentioned earlier. PHYSICAL EXAMINATION: VITAL SIGNS: Pulse is 84, blood pressure 174/108, respirations 18. HEENT: Conjunctivae normal. CARDIOVASCULAR: S1, S2. RESPIRATIONS: Breath sounds diminished at the bases. No rhonchi. No crackles. ABDOMEN: Soft, nontender. LEGS: No edema. NERVOUS SYSTEM: Nonfocal. SKIN: No ulcer, rash, bleeding. JOINTS: No active deforming arthropathy. LABORATORY DATA: Creatinine 8.35. The rest of the labs are noted. ASSESSMENT: 1. Chest pain for evaluation, rule out coronary artery disease. 2. Accelerated hypertension. 3. Hyperkalemia. 4. End-stage renal disease, on hemodialysis. 5. History of asthma. 6. History of congestive heart failure. 7. Polycystic kidney disease history. 8. History of failed renal transplant. 9. Anxiety and depression. RECOMMENDATIONS AND DISCUSSION: This is a 33-year-old woman, who presented with multiple complex medical issues, we will monitor the patient closely. Continue current medications, continue symptomatic treatment. Recommend hydralazine to be given in a very slow fashion and continue rest of medications. Monitor blood pressure closely. Initiate Norvasc. Increase dose of Coreg. Prognosis guarded because of multiple complex medical issues. Further recommendations to follow. See orders for further details. We will increase the dose of hydralazine also to 100 mg q.i.d. p.o. MMODL / IJN: [id number] /
[2024-06-14 07:48] LABS: African American GFR (CKD) 7 (>60 ml/min/1.73 sqM); Anion Gap 12 mmol/L; Blood Urea Nitrogen 44 mg/dL (7-17); Calcium 9.1 mg/dL (8.4-10.2); Carbon Dioxide 27 mmol/L (22-30); Chloride 94 mmol/L (98-107); Glucose 50 mg/dL (74-99); Non-African American GFR(CKD) 6 (>60 ml/min/1.73 sqM); Potassium 5.1 mmol/L (3.5-5.1); Sodium 133 mmol/L (137-145)
--- NOTE | 2024-06-14 12:15 | P.PN ---
Subjective patient is seen for follow-up for end-stage renal disease. Status post hemodialysis yesterday with UF of 1600 mL. Blood pressure has improved. Patient states she feels better and chest pain has resolved. Scheduled for hemodialysis again today. Objective - Vital Signs Vital signs: Vital Signs Temp 98.4 F 06/14/24 04:00 Pulse 81 06/14/24 04:00 Resp 16 06/14/24 04:00 BP 133/76 06/14/24 06:42 Pulse Ox 98 06/14/24 04:00 FiO2 Intake & Output 06/13/24 06/14/24 06/14/24 18:59 06:59 18:59 Intake Total 400 358 Output Total 3600 Balance -3200 358 Weight 57.4 kg Intake: Oral 358 Hemodialysis 400 Output: Hemodialysis 2000 Hemodialysis Net Amount 1600 Other: Voiding Method Toilet # Voids 0 - Exam patient is awake, comfortable, in no acute distress. Examination of the heart S1 and S2 Examination of the lungs bilateral breath sounds are heard Abdomen is soft nontender Examination of lower extremity shows no significant edema FACETOR exam grossly intact - Labs CBC & Chem 7: 06/12/24 22:21 06/14/24 06:21 Labs: Abnormal Lab Results - Last 24 Hours (Table) 06/13/24 06/14/24 Range/Units 12:43 06:21 Sodium 133 L (137-145) mmol/L Potassium 6.0 H (3.5-5.1) mmol/L Chloride 94 L (98-107) mmol/L BUN 44 H (7-17) mg/dL Creatinine 8.51 H* (0.52-1.04) mg/dL Glucose 50 L (74-99) mg/dL Assessment and Plan Assessment: 1. End-stage renal disease on hemodialysis on Wednesday schedule via left arm AV fistula 2. Pseudoaneurysms on left arm AV fistula scheduled for surgery this week at [facility] 3. Hypertension, partly volume sensitive 4. Hyperkalemia associated with end-stage renal disease 5. 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
--- NOTE | 2024-06-14 12:25 | P.PN ---
Subjective HISTORY OF PRESENT ILLNESS: This is a 33-year-old female with a past medical history significant for end- stage renal disease on hemodialysis Wednesday, kidney transplant, hypertension, congestive heart failure, pulmonary hypertension, and valvular heart disease. Patient follows in the office with Dr. Larios. We have been asked to see the patient in consultation for chest pain. Patient examined at the bedside in the emergency room. Patient presented to the hospital with a chief complaint of chest discomfort and uncontrolled blood pressure. Patient states she woke up yesterday morning with chest discomfort. She states that she feels like her chest is tight. She states the pain is worse with deep inspiration and also with laying flat in bed. Patient states that recently her blood pressures have been well-controlled and she has even had some issues with hypotension. She states recently she has been having to take her cardiac medications after hemodialysis to avoid hypotension. She states the last couple days she has noticed her blood pressures have been high in the 200s. She states yesterday when she went to dialysis her blood pressures were in the [id number]. She states that she has been compliant with all of her medications. She does report that she ran out of her carvedilol last week but was able to get a new prescription and has been taking it for the past 4 days. She does report noncompliance with a low-sodium diet. She does report having [place] food and popcorn recently. She states that she is an emotional eater and does tend to consume high salt foods. DIAGNOSTICS: - EKG reveals sinus mechanism with nonspecific ST-T wave changes. No signs of acute ischemia. LVH.. - Chest xray cardiomegaly. No acute findings. - Laboratory data: WBC 5.0. Hemoglobin 11.6. Platelet count 300. Sodium 137. Potassium 6.5. BUN 45. Creatinine 9.53. - Current home cardiac medications include carvedilol 25 mg twice a day, nifedipine XL 90 mg daily, hydralazine 100 mg 3 times daily - Most recent echocardiogram obtained in April 2024 revealing ejection fraction 50 to 55% -Previous echocardiogram performed in March 2024 in the office revealed ejection fraction 55%, moderate concentric LVH, moderate to severe AR, mild MR, moderate TR. - Cardiac catheterization history: 04/27/2024 revealing normal coronary arteries 06/14/2024 Patient examined this morning at the bedside. Patient underwent hemodialysis yesterday. Patient states she has had no further episodes of chest pain or pressure. She denies shortness of breath. Patient's blood pressure is improved today with systolic blood pressures in the 130s. PHYSICAL EXAM: VITAL SIGNS: Reviewed. GENERAL: Well-developed in no acute distress. HEENT: Head is normocephalic. Pupils are equal, round. Sclerae anicteric. Mucous membranes of the mouth are moist. Neck supple. No JVD or thyromegaly LUNGS: Respirations even and unlabored. Lungs essentially clear to auscultation bilaterally. HEART: Regular rate and rhythm. S1 and S2 heard. Systolic and diastolic murmur noted. ABDOMEN: Soft. Nondistended. Nontender. EXTREMITIES: Normal range of motion. No clubbing or cyanosis. Peripheral pulses intact. No lower extremity edema NEUROLOGIC: Awake and alert. Oriented x 3. ASSESSMENT: Hypertensive emergency, likely secondary to noncompliance with low-sodium diet Chest pain, secondary to hypertensive emergency and volume overload, ACS ruled out Hyperkalemia End-stage renal disease on hemodialysis, Wednesday Normal coronary arteries, per cardiac catheterization 04/2024 Valvular heart disease including moderate to severe AR, mild MR, moderate TR Moderate LVH Severe pulmonary hypertension Chronic heart failure with preserved EF Chronically elevated troponins secondary to end-stage renal disease Left arm AV fistula pseudoaneurysm, scheduled for outpatient surgery PLAN: Patient's elevated blood pressure was likely secondary to volume overload due to noncompliance with low-sodium diet at home Patient states her blood pressure is usually well-controlled at home and even gets hypotensive at times with dialysis. Continue on patient's home cardiac medications Decrease carvedilol back to home dose of 25 mg twice a day Discontinue amlodipine started by primary medicine as patient is already prescribed verapamil Discontinue all PRN antihypertensive medications Patient may be discharged home today from a cardiac standpoint Nurse practitioner note has been reviewed by physician. Signing provider agrees with the documented findings, assessment, and plan of care documented by GENERAL MAINTENANCE HELPER as a scribe. Objective - Vital Signs Vital signs: Vital Signs Temp 98.4 F 06/14/24 04:00 Pulse 81 06/14/24 04:00 Resp 16 06/14/24 04:00 BP 133/76 06/14/24 06:42 Pulse Ox 98 06/14/24 04:00 FiO2 Intake & Output 06/13/24 06/14/24 06/14/24 18:59 06:59 18:59 Intake Total 400 358 Output Total 3600 Balance -3200 358 Weight 57.4 kg Intake: Oral 358 Hemodialysis 400 Output: Hemodialysis 2000 Hemodialysis Net Amount 1600 Other: Voiding Method Toilet # Voids 0 - Labs CBC & Chem 7: 06/12/24 22:21 06/14/24 06:21 Labs: Abnormal Lab Results - Last 24 Hours (Table) 06/13/24 06/14/24 Range/Units 12:43 06:21 Sodium 133 L (137-145) mmol/L Potassium 6.0 H (3.5-5.1) mmol/L Chloride 94 L (98-107) mmol/L BUN 44 H (7-17) mg/dL Creatinine 8.51 H* (0.52-1.04) mg/dL Glucose 50 L (74-99) mg/dL
[2024-06-14] MEDS: carvediloL 12.5 MG TAB PO SCH (18:15)
[2024-06-14 18:33] VITALS: BP 139/91; PULSE 86; TEMP 98.2
--- NOTE | 2024-06-17 12:24 | P.DS ---
Providers Date of admission: 06/13/24 00:28 Expected date of discharge: 06/14/24 Attending physician: Agnieszka Travis Consults: 06/13/24 00:28 Consult Physician Urgent Consulting Provider: Lolis Kirby Consult Reason/Comments: hYPERk+ Do you want consulting provider notified?: Already Contacted 06/13/24 11:38 Consult Physician Urgent Consulting Provider: Misti Mast Consult Reason/Comments: chest pain, dialysis pt. Do you want consulting provider notified?: Yes [facility] Course: Final diagnosis Chest pain, ruled out ACS Accelerated hypertension Hyperkalemia End-stage renal disease on hemodialysis History of asthma, not in exacerbation History of congestive heart failure, not in exacerbation Polycystic kidney disease history History of failed renal transplant Anxiety/depression GI prophylaxis DVT prophylaxis Full code Discharge disposition Patient is being discharged in a stable condition with guarded prognosis to home . Patient will follow-up with Dr. Thaddeus Travis in the outpatient setting upon discharge. Patient is to continue with hemodialysis as scheduled and outpatient follow-up with nephrology. Total time taken is greater than 35 minutes. Hospital course This is a 33-year-old female who was recently admitted with increased hypertension unable to control it at home being followed by nephrology along with cardiology. ACS ruled out patient recently had cardiac workup and no further intervention other than tighter hypertension control. Medications adjusted per nephrology recommending outpatient follow-up. Patient reports she is feeling much better and blood pressure is controlled and would like to go home. Patient has been cleared by consultations. Please refer to consultation notes for further HPI. Currently no reports of chest pain, shortness of breath, or palpitations. Patient is afebrile. No reports of nausea or vomiting and patient is tolerating diet. Patient will be discharged home today. High risk for readmissions given patient's significant comorbidities. Physical exam: Gen: This is a 33-year-old female who is awake, alert and oriented x 3, well- developed, elderly appearing HEENT: Head is atraumatic, normocephalic. Pupils equal, round. Sclerae is anicteric. NECK: Supple. No JVD. No lymphadenopathy. No thyromegaly. LUNGS: Diminished breath sounds bilaterally otherwise clear to auscultation. No wheezes or rhonchi. No intercostal retractions. HEART: S1, S2 are muffled ABDOMEN: Soft. Thin. Bowel sounds are present. No masses. No tenderness. EXTREMITIES: No pedal edema. No calf tenderness. NEUROLOGICAL: Patient is awake, alert and oriented x3. Cranial nerves 2 through 12 are grossly intact. Please refer to medication reconciliation sheet for a list of medications. The impression and plan of care has been dictated by Mona Bhatt, Nurse Practitioner as directed. Dr. Thaddeus MD I have performed a history and examination and MDM of this patient, discussed the same with the dictator, and agree with the dictator's assessment and plan as written ,documented as a scribe. Based on total visit time, I have performed more than 50% of the visit. Patient Condition at Discharge: Stable Plan - Discharge Summary Discharge Rx Participant: Yes New Discharge Prescriptions: Continue Albuterol Sulfate [Proair Hfa] 2 puff INHALATION RT-Q6H PRN PRN Reason: Shortness Of Breath Calcium Acetate [PhosLo] 2,668 mg PO TID-W/MEALS Acetaminophen Tab [Tylenol] 1,000 mg PO Q6HR PRN PRN Reason: Pain Or Fever > 100.5 NIFEdipine XL [Procardia XL] 90 mg PO DAILY hydrALAZINE HCL [Apresoline] 100 mg PO TID carvediloL [Coreg] 25 mg PO BID-W/MEALS calcitrioL 2 mcg PO DAILY Calcium Acetate [PhosLo] 1,334 mg PO DAILY PRN PRN Reason: WITH SNACKS Sodium Zirconium Cyclosilicate [Lokelma] 10 gm PO DAILY PRN PRN Reason: high potassium Lactulose 10 gm PO DAILY PRN PRN Reason: Constipation Ondansetron [Zofran] 4 mg PO Q8H PRN PRN Reason: Nausea And Vomiting Gabapentin [Neurontin] 100 mg PO DAILY Discharge Medication List Albuterol Sulfate [Proair Hfa] 2 puff INHALATION RT-Q6H PRN 01/22/16 [History] Calcium Acetate [PhosLo] 2,668 mg PO TID-W/MEALS 05/01/20 [History] calcitrioL 2 mcg PO DAILY 10/29/21 [History] Acetaminophen Tab [Tylenol] 1,000 mg PO Q6HR PRN 05/26/22 [History] Calcium Acetate [PhosLo] 1,334 mg PO DAILY PRN 10/25/22 [History] Sodium Zirconium Cyclosilicate [Lokelma] 10 gm PO DAILY PRN 03/23/23 [History] Lactulose 10 gm PO DAILY PRN 09/05/23 [History] NIFEdipine XL [Procardia XL] 90 mg PO DAILY 11/28/23 [History] hydrALAZINE HCL [Apresoline] 100 mg PO TID 01/21/24 [History] Ondansetron [Zofran] 4 mg PO Q8H PRN 04/25/24 [History] Gabapentin [Neurontin] 100 mg PO DAILY 06/13/24 [History] carvediloL [Coreg] 25 mg PO BID-W/MEALS 06/13/24 [History] Follow up Appointment(s)/Referral(s): Lolis Kirby MD [STAFF PHYSICIAN] - 1 Week (Please call office to make follow up appointment. ) Karo Alicea MD [Primary Care Provider] - 1-2 days (Please call office to make follow up appointment. ) Patient Instructions/Handouts: Hyperkalemia (DC), Hypertensive Crisis (DC) Activity/Diet/Wound Care/Special Instructions: Activity limited until follow-up Follow-up with primary care provider Continue with dialysis Wednesday/Wednesday/Wednesday Follow-up with nephrology outpatient follow-up with your surgeon outpatient at your scheduled appointment Discharge Disposition: HOME SELF-CARE
== END 2024-06-14 18:32 | disposition home or self-care (01) | DRG 304 ==
LOC: EC 21:57 → 3SCARD 06-13 00:28
PROVIDERS: ADMIT Hospitalist; ATTEND Hospitalist
PROC: 5A1D70Z Performance of Urinary Filtration, Intermittent, Less than 6 Hours Per Day (ICD-10-PCS; principal; 2024-06-13)
DX: I16.1 Hypertensive emergency (principal); N18.6 End stage renal disease; T86.12 Kidney transplant failure; T82.510A Breakdown (mechanical) of surgically created arteriovenous fistula, initial encounter; I50.32 Chronic diastolic (congestive) heart failure; I27.20 Pulmonary hypertension, unspecified; D63.1 Anemia in chronic kidney disease; Z99.2 Dependence on renal dialysis; I13.2 Hypertensive heart and chronic kidney disease with heart failure and with stage 5 chronic kidney disease, or end stage renal disease; I72.1 Aneurysm of artery of upper extremity; J45.909 Unspecified asthma, uncomplicated; F32.A Depression, unspecified; I08.3 Combined rheumatic disorders of mitral, aortic and tricuspid valves; E83.89 Other disorders of mineral metabolism; E87.5 Hyperkalemia; I49.8 Other specified cardiac arrhythmias; F41.9 Anxiety disorder, unspecified; R79.89 Other specified abnormal findings of blood chemistry; Y71.2 Prosthetic and other implants, materials and accessory cardiovascular devices associated with adverse incidents; Z91.119 Patient's noncompliance with dietary regimen due to unspecified reason; Z90.89 Acquired absence of other organs; Z79.899 Other long term (current) drug therapy; Z87.448 Personal history of other diseases of urinary system
CPT/HCPCS: 36415; 71046; 80048; 80053; 83735; 84132; 85025; 85610; 85730; 90935; 93005; 94640; 96361; 96374; 96375; 99291

== ENCOUNTER 2024-11-16 18:01 | Emergency (ER) | payer MEDICARE, OTHER ==
--- NOTE | 2024-11-16 18:32 | ED ---
General Adult HPI - General Chief complaint: Chest Pain Stated complaint: chest/abd pain Time Seen by Provider: 11/16/24 18:07 Source: patient, RN notes reviewed, old records reviewed Mode of arrival: ambulatory Limitations: no limitations - History of Present Illness Initial comments: 34-year-old female presenting with chest discomfort, mild dyspnea. Patient has history of end-stage renal disease. She states that she has had this discomfort throughout the day today but is had it many times in the past. Patient denies significant cough or fever. She had dialysis earlier today. She had a heart catheterization within the past 7 months with normal coronary arteries. - Related Data Home Medications Medication Instructions Recorded Confirmed Albuterol Sulfate [Proair Hfa] 2 puff INHALATION RT-Q6H PRN 01/22/16 06/13/24 Calcium Acetate [PhosLo] 2,668 mg PO TID-W/MEALS 05/01/20 06/13/24 calcitrioL 2 mcg PO DAILY 10/29/21 06/13/24 Acetaminophen Tab [Tylenol] 1,000 mg PO Q6HR PRN 05/26/22 06/13/24 Calcium Acetate [PhosLo] 1,334 mg PO DAILY PRN 05/26/22 06/13/24 Sodium Zirconium Cyclosilicate 10 gm PO DAILY PRN 03/23/23 06/13/24 [Lokelma] Lactulose 10 gm PO DAILY PRN 09/05/23 06/13/24 NIFEdipine XL [Procardia XL] 90 mg PO DAILY 11/28/23 06/13/24 hydrALAZINE HCL [Apresoline] 100 mg PO TID 01/21/24 06/13/24 Ondansetron [Zofran] 4 mg PO Q8H PRN 04/25/24 06/13/24 Gabapentin [Neurontin] 100 mg PO DAILY 06/13/24 06/13/24 carvediloL [Coreg] 25 mg PO BID-W/MEALS 06/13/24 06/13/24 Allergies Allergy/AdvReac Type Severity Reaction Status Date / Time vancomycin Allergy Anaphylaxis Verified 11/16/24 18:05 /Itching hydralazine AdvReac Rapid Verified 11/16/24 18:05 Heart Rate WHEN GIVEN THROUGH IV Review of Systems ROS Statement: Those systems with pertinent positive or pertinent negative responses have been documented in the HPI. ROS Other: All systems not noted in ROS Statement are negative. 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 History of Any Multi-Drug Resistant Organisms: None Reported Past Surgical History: Heart Catheterization, Hernia Repair Additional Past Surgical History / Comment(s): 06/14/18 cardiac cath at [facility] to check coronary pressures, 11/15/09 Failed kidney transplant R pelvis, dialysis catheter in and out, current L upper arm AVG, supra pubic hernia repair, transvaginal mesh, wisdom teeth extraction with anesthesia, 2017 fistula placement left upper arm Past Anesthesia/Blood Transfusion Reactions: No Reported Reaction Additional Past Anesthesia/Blood Transfusion Reaction / Comment(s): Pt has received blood in past without reaction. Past Psychological History: Anxiety, Depression Smoking Status: Never smoker Past Alcohol Use History: None Reported Past Drug Use History: None Reported - Past Family History Father Family Medical History: No Reported History Additional Family Medical History / Comment(s): Father is healthy and is 62 yrs old. Mother Family Medical History: No Reported History Additional Family Medical History / Comment(s): Mother is healthy and is 60 yrs old. General Exam Limitations: no limitations General appearance: alert, in no apparent distress Head exam: Present: atraumatic, normocephalic Eye exam: Present: normal appearance, PERRL ENT exam: Present: normal exam Neck exam: Present: normal inspection. Absent: tenderness, meningismus Respiratory exam: Present: normal lung sounds bilaterally. Absent: respiratory distress, wheezes Cardiovascular Exam: Present: regular rate, normal rhythm GI/Abdominal exam: Present: soft. Absent: distended, tenderness, guarding Extremities exam: Present: normal inspection, normal capillary refill Neurological exam: Present: alert, oriented X3, CN II-XII intact. Absent: motor sensory deficit Psychiatric exam: Present: normal affect, normal mood Skin exam: Present: warm, dry Course Vital Signs 11/16/24 11/16/24 18:02 21:30 Temperature 98.7 F Pulse Rate 86 74 Respiratory 19 16 Rate Blood Pressure 128/83 163/96 O2 Sat by Pulse 98 100 Oximetry Medical Decision Making - Medical Decision Making Was pt. sent in by a medical professional or institution ([facility]AROLYN Moore, AUDIOMETRIST, urgent care, hospital, or fpc...) When possible be specific @ -No Did you speak to anyone other than the patient for history (EMS, parent, family, police, friend...)? What history was obtained from this source @ -No Did you review nursing and triage notes (agree or disagree)? Why? @ -I reviewed and agree with nursing and triage notes Were old charts reviewed (outside hosp., previous admission, EMS record, old EKG, old radiological studies, urgent care reports/EKG's, fpc records)? Report findings @ -No old charts were reviewed Differential Chest Pain: Stable Angina, Unstable Angina, STEMI, NSTEMI Aortic Dissection, Pneumothorax, Musculoskeletal, Esophageal Spasm GERD, Cholecystitis, Pancreatitis, Zoster, this is not meant to be an all-inclusive list. EKG interpreted by me (3pts min.). @ -Sinus rhythm rate of 79 WI interval 168, QRS duration 102, QTc 440 left axis deviation, LVH X-rays interpreted by me (1pt min.). @ -Chest x-ray showing cardiomegaly without acute process CT interpreted by me (1pt min.). @ -None done U/S interpreted by me (1pt. min.). @ -None done What testing was considered but not performed or refused? (CT, X-rays, U/S, labs)? Why? @ -None What meds were considered but not given or refused? Why? @ -None Did you discuss the management of the patient with other professionals (professionals i.e. KAROLYN Moore, AUDIOMETRIST, lab, RT, psych nurse, group social worker, sales financial analyst, teacher, aviation tactical readiness officer, case operator)? Give summary @ -Case discussed with Dr. Kirby who recommends Lokelma, insulin and dextrose and discharge for dialysis tomorrow. Was smoking cessation discussed for >3mins.? @ -No Was critical care preformed (if so, how long)? @ -No Were there social determinants of health that impacted care today? How? (Homelessness, low income, unemployed, alcoholism, drug addiction, transportation, low edu. Level, literacy, decrease access to med. care, nursing home, rehab)? @ -No Was there de-escalation of care discussed even if they declined (Discuss DNR or withdrawal of care, Hospice)? DNR status @ -No What co-morbidities impacted this encounter? (DM, HTN, Smoking, COPD, CAD, Cancer, CVA, ARF, Chemo, Hep., AIDS, mental health diagnosis, sleep apnea, mo rbid obesity)? @ -End-stage renal disease Was patient admitted / discharged? Hospital course, mention meds given and route, prescriptions, significant lab abnormalities, going to OR and other pertinent info. @34-year-old female with chest discomfort, right-sided, vital signs are stable, EKG is unchanged compared to prior. Laboratory testing reveals normal CBC, CMP shows potassium 6.0 and chronic BUN/creatinine elevation. Given the elevated potassium I did discuss case with Dr. Kofi patricia for nephrology, recommends medical management and dialysis tomorrow. Patient stable for discharge. Undiagnosed new problem with uncertain prognosis? @ -No Drug Therapy requiring intensive monitoring for toxicity (Heparin, Nitro, Insulin, Cardizem)? @ -No Were any procedures done? @ -No Diagnosis/symptom? @ -[Chest discomfort, chronic, hyperkalemia Acute, or Chronic, or Acute on Chronic? @ -Acute on chronic Uncomplicated (without systemic symptoms) or Complicated (systemic symptoms)? @ -Default Side effects of treatment? @ -No Exacerbation, Progression, or Severe Exacerbation? @ -No Poses a threat to life or bodily function? How? (Chest pain, [place], [place], pneumonia, PE, COPD, DKA, ARF, appy, cholecystitis, CVA, Diverticulitis, Homicidal, Suicidal, threat to staff... and all critical care pts) @Low risk at this time - Lab Data Result diagrams: 11/16/24 18:31 11/16/24 18:31 Lab Results 11/16/24 11/16/24 11/16/24 Range/Units 18:31 18:31 18:31 WBC 5.98 (4.50-10.00) 10*3/uL RBC 4.45 (4.10-5.20) 10*6/uL Hgb 13.1 (12.0-15.0) g/dL Hct 40.7 (37.2-46.3) % MCV 91.5 (80.0-97.0) fL MCH 29.4 (27.0-32.0) pg MCHC 32.2 (32.0-37.0) g/dL Plt Count 211 (140-440) 10*3/uL MPV 10.7 (9.5-12.2) fL Immature Gran % (Auto) 0.3 % Neutrophils % 67.7 % Lymphocytes % 15.6 % Monocytes % 10.4 % Eosinophils % 5.0 % Basophils % 1.0 % Immature Gran # 0.02 (0.00-0.04) 10*3/uL Neutrophils # 4.05 (1.80-7.70) 10*3/uL Lymphocytes # 0.93 (0.90-5.00) 10*3/uL Monocytes # 0.62 (0.20-1.00) 10*3/uL Eosinophils # 0.30 (0.04-0.35) 10*3/uL Basophils # 0.06 (0.00-0.10) 10*3/uL PT 11.4 (10.0-12.5) sec INR 1.0 (<1.2) APTT 25.8 (22.0-30.0) sec Sodium 135 L (137-145) mmol/L Potassium 6.0 H (3.5-5.1) mmol/L Chloride 94 L (98-107) mmol/L Carbon Dioxide 29 (22-30) mmol/L Anion Gap 12 mmol/L BUN 50 H (7-17) mg/dL Creatinine 9.19 H* (0.52-1.04) mg/dL Est GFR (CKD-EPI)AfAm 6 (>60 ml/min/1.73 sqM) Est GFR (CKD-EPI)NonAf 5 (>60 ml/min/1.73 sqM) Glucose 95 (74-99) mg/dL Calcium 9.7 (8.4-10.2) mg/dL Magnesium 2.3 (1.6-2.3) mg/dL Total Bilirubin 0.7 (0.2-1.3) mg/dL AST 29 (14-36) U/L ALT 18 (4-34) U/L Alkaline Phosphatase 45 (38-126) U/L Total Protein 8.6 H (6.3-8.2) g/dL Albumin 4.5 (3.5-5.0) g/dL Lipase 240 (23-300) U/L Disposition Clinical Impression: Chest pain, Hyperkalemia Disposition: HOME SELF-CARE Condition: Fair Instructions (If sedation given, give patient instructions): Chest Pain (ED) Is patient prescribed a controlled substance at d/c from ED?: No Referrals: Karo Alicea MD [Primary Care Provider] - 1-2 days Time of Disposition: 21:38
[2024-11-16] MEDS: MORPHINE SULFATE 4 MG/ML SYRINGE IVP STA (18:38)
[2024-11-16 18:44] LABS: Basophils # (A) 0.06 10*3/uL (0.00-0.10); HCT 40.7 % (37.2-46.3); HGB 13.1 g/dL (12.0-15.0); Lymphocytes # (A) 0.93 10*3/uL (0.90-5.00); Lymphocytes % (A) 15.6 %; MCH 29.4 pg (27.0-32.0); MCHC 32.2 g/dL (32.0-37.0); MCV 91.5 fL (80.0-97.0); Mean Platelet Volume 10.7 fL (9.5-12.2); Monocytes # (A) 0.62 10*3/uL (0.20-1.00); Monocytes % (A) 10.4 %; Neutrophils # (A) 4.05 10*3/uL (1.80-7.70); Neutrophils % (A) 67.7 %; Platelet Count 211 10*3/uL (140-440); RBC 4.45 10*6/uL (4.10-5.20); RDW 17.2 % (11.5-14.5); WBC 5.98 10*3/uL (4.50-10.00)
[2024-11-16 18:59] LABS: Partial Thromboplastin Time 25.8 sec (22.0-30.0); Prothrombin Time 11.4 sec (10.0-12.5)
[2024-11-16 19:02] LABS: ALT 18 U/L (4-34); AST 29 U/L (14-36); African American GFR (CKD) 6 (>60 ml/min/1.73 sqM); Albumin 4.5 g/dL (3.5-5.0); Alkaline Phosphatase 45 U/L (38-126); Anion Gap 12 mmol/L; Blood Urea Nitrogen 50 mg/dL (7-17); Calcium 9.7 mg/dL (8.4-10.2); Carbon Dioxide 29 mmol/L (22-30); Chloride 94 mmol/L (98-107); Glucose 95 mg/dL (74-99); Lipase 240 U/L (23-300); Magnesium 2.3 mg/dL (1.6-2.3); Non-African American GFR(CKD) 5 (>60 ml/min/1.73 sqM); Sodium 135 mmol/L (137-145); Total Bilirubin 0.7 mg/dL (0.2-1.3); Total Protein 8.6 g/dL (6.3-8.2)
--- NOTE | 2024-11-16 19:07 | XR ---
EXAMINATION TYPE: XR chest 2V DATE OF EXAM: 11/16/2024 7:02 PM COMPARISON: Prior chest radiograph, most recently dated 06/12/2024. CLINICAL INDICATION: Female, 34 years old with history of Chest Pain; [facility] TECHNIQUE: XR chest 2V Frontal and lateral views of the chest. FINDINGS: Lungs/Pleura: There is no evidence of pleural effusion, focal consolidation, or pneumothorax. Pulmonary vascularity: Unremarkable. Heart/mediastinum: Cardiomegaly. Musculoskeletal: No acute osseous pathology. Other findings: None IMPRESSION: No acute cardiopulmonary disease/process. [facility], , 11/16/2024 7:04 PM
[2024-11-16] MEDS: SODIUM ZIRCONIUM CYCLOSILICATE 10 GM PACKET PO ONE (21:23)
[2024-11-16] MEDS: INSULIN REGULAR 100 UNIT/ML VIAL (IV) IV ONE (21:25)
[2024-11-16] MEDS: DEXTROSE 50% SYRINGE 50 ML IVP ONE (21:26)
[2024-11-16 21:52] VITALS: BP 153/81; PULSE 69; RESP 18; TEMP 98
== END 2024-11-16 21:52 | disposition home or self-care (01) ==
LOC: EC 18:01
DX: E87.5 Hyperkalemia (principal); I13.2 Hypertensive heart and chronic kidney disease with heart failure and with stage 5 chronic kidney disease, or end stage renal disease; I50.9 Heart failure, unspecified; N18.6 End stage renal disease; Z99.2 Dependence on renal dialysis; Z88.1 Allergy status to other antibiotic agents; Z88.8 Allergy status to other drugs, medicaments and biological substances; Z79.899 Other long term (current) drug therapy
CPT/HCPCS: 36415; 93005; 80053; 83690; 83735; 85025; 85610; 85730; 71046; 99285; 96374; 96375; J2270